=== PATIENT | male | born 1970 | race Hispanic/Latino ===

== ENCOUNTER 2017-01-29 11:05 | Inpatient (IN) | payer MEDICAID ==
[2017-01-29 11:35] VITALS: BMI 29.2
[2017-01-29] MEDS ORDERED: Sodium Chloride 0.9% 1,000 ML IV STA ×2 (11:44→19:32)
--- NOTE | 2017-01-29 11:50 | ED PDOC ---
Arrival/HPI - General Chief Complaint: GI Problem Time Seen by Provider: 01/29/17 11:31 Historian: Patient - History of Present Illness Narrative History of Present Illness (Text): 01/29/17 11:47 46 y.o. male whose PMHx includes etoh abuse who comes to the ED with complaint of abdominal pain associated with n/v and bloody stools. He denies any fever or urinary symptoms. He states his last etoh was use a few hours prior to coming to the ED. He also endorses a cough with occasional sob. He is also complaining that he is thinking about hurting himself with a plan to jump in front of the light rail. Past Medical History - Infectious Disease Hx of Infectious Diseases: None - Tetanus Immunization Tetanus Immunization: Up to Date - Reproductive Currently : No - Past Medical History Past Medical History: No Previous - Cardiac Hx Cardiac Disorders: Yes Hx Hypertension: Yes - Pulmonary Hx Respiratory Disorders: No - Neurological Hx Neurological Disorder: No - HEENT Hx HEENT Disorder: No - Renal Hx Renal Disorder: No - Endocrine/Metabolic Hx Endocrine Disorders: No - Hematological/Oncological Hx Blood Disorders: No - Integumentary Hx Dermatological Disorder: No - Musculoskeletal/Rheumatological Hx Musculoskeletal Disorders: No - Gastrointestinal Hx Gastrointestinal Disorders: No - Genitourinary/Gynecological Hx Genitourinary Disorders: No - Psychiatric Hx Psychophysiologic Disorder: Yes Hx Depression: Yes Hx Substance Use: No Other/Comment: ETOH - Past Surgical History Past Surgical History: No Previous - Anesthesia Hx Anesthesia: Yes Hx Anesthesia Reactions: No Hx Malignant Hyperthermia: No - Suicidal Assessment Feels Threatened In Home Enviroment: No Family/Social History Family/Social History: No Known Family HX Smoking Status: Current Some Days Smoker Hx Alcohol Use: Yes (ETOH) Hx Substance Use: No Hx Substance Use Treatment: No Allergies/Home Meds Allergies/Adverse Reactions: Allergies No Known Allergies Allergy (Verified 01/29/17 11:26) Review of Systems - Review of Systems Constitutional: Fatigue Eyes: Normal ENT: Normal Respiratory: SOB, Cough Cardiovascular: absent: Chest Pain Gastrointestinal: Abdominal Pain, Nausea, Hematochezia Genitourinary Male: absent: Dysuria Skin: Normal Neurological: Normal Psychiatric: Depression, Suicidal Ideation Physical Exam Vital Signs Temp Pulse Resp BP Pulse Ox 01/29/17 19:28 94 H 16 94 L 01/29/17 17:24 98.5 F 109 H 18 135/69 95 01/29/17 17:00 83 18 106/68 100 01/29/17 15:00 102 H 18 104/72 100 01/29/17 13:47 100 H 19 102/79 100 01/29/17 12:11 64 18 142/79 98 01/29/17 11:24 98.2 F 82 18 144/88 100 01/29/17 11:16 97.4 F L 91 H 18 163/113 H 100 Temperature: Afebrile Blood Pressure: Normal Pulse: Regular Respiratory Rate: Normal Appearance: Positive for: Non-Toxic, Other (disheveled with AOB) Pain Distress: Mild Mental Status: Positive for: Alert and Oriented X 3 - Systems Exam Head: Present: Atraumatic, Normocephalic Pupils: Present: PERRL Conjunctiva: Present: Normal Mouth: Present: Moist Mucous Membranes Pharnyx: Present: Normal. No: ERYTHEMA, EXUDATE Neck: Present: Normal Range of Motion Respiratory/Chest: Present: Clear to Auscultation, Good Air Exchange. No: Respiratory Distress, Accessory Muscle Use Cardiovascular: Present: Regular Rate and Rhythm, Normal S1, S2. No: Murmurs Abdomen: Present: Tenderness (diffuse abdominal tenderness), Normal Bowel Sounds. No: Distention, Peritoneal Signs Rectal: Present: Other (yellow-brownish stools, guaiac positive). No: Gross Blood Back: Present: Normal Inspection Upper Extremity: Present: Normal Inspection. No: Cyanosis, Edema Lower Extremity: Present: Normal Inspection. No: Edema Neurological: Present: GCS=15, CN II-XII Intact, Speech Normal Skin: Present: Warm, Dry. No: Rashes Psychiatric: Present: Oriented x 3 Medical Decision Making ED Course and Treatment: 01/29/17 19:42 46 y.o. alcoholic male presenting with abdominal pain and blood stools with n/ v. Initial exam with abdominal tenderness and brown but guaiac positive stools. Labs showed an alcohol level of 417 but also a lactic acid level of 3.0. He was given a liter of NS and a liter of a banana bag. Patient tolerated po - given his SI complaint, discussed with PES, who said the patient will not be seen, per protocol till etoh level goes down to approximately 150, about 9:15 pm per calculation. In the meantime, the patient began to develop tremors, consistent with alcohol withdrawal along with mild tachycardia to 110 bpm. His repeat lactic acid is 3.2 - will need to be observed further on observed further on med/surg. Discussed with Dr. Thurman. - Lab Interpretations Lab Results: 01/29/17 12:15 01/29/17 12:15 Lab Results 01/29/17 17:59: Lactic Acid 3.2 H 01/29/17 12:15: WBC 7.4, RBC 3.75, Hgb 13.2 L, Hct 38.4 L, MCV 102.4, MCH 35.2 H , MCHC 34.4, RDW 13.4, Plt Count 219, MPV 9.2, Gran % 71.9 H, Lymph % (Auto) 18.7 L, [place] % (Auto) 8.8 H, Eos % (Auto) 0.1 L, Baso % (Auto) 0.5, Gran # 5.30 , Lymph # 1.4, [place] # 0.7 H, Eos # 0.0, Baso # 0.04, PT 13.0 H, INR 1.20 H, APTT 29.2, Sodium 135, Potassium 4.2, Chloride 95 L, Carbon Dioxide 27, Anion Gap 17, BUN 10, Creatinine 0.5, Est GFR ( Amer) > 60, Est GFR (Non-Af Amer) > 60, Random Glucose 90, Lactic Acid 3.0 H, Calcium 9.0, Total Bilirubin 0.8, AST 256 H, ALT 76 H, Alkaline Phosphatase 267 H, Lactate Dehydrogenase 673 , Total Creatine Kinase 103, Troponin I < 0.01, Total Protein 9.0 H, Albumin 4.1 , Globulin 4.9, Albumin/Globulin Ratio 0.8 L, Amylase 80, Lipase 257, Urine Color Yellow, Urine Appearance Clear, Urine pH 6.5, Ur Specific [place] 1.010, Urine Protein Negative, Urine Glucose (UA) Negative, Urine Ketones Negative, Urine Blood Negative, Urine Nitrate Negative, Urine Bilirubin Negative, Urine Urobilinogen 0.2, Ur Leukocyte Esterase Negative, Urine Opiates Screen Negative , Urine Methadone Screen Negative, Ur Barbiturates Screen Negative, Ur Phencyclidine Scrn Negative, Ur Amphetamines Screen Negative, U Benzodiazepines Scrn Negative, U Oth Cocaine Metabols Negative, U Cannabinoids Screen Negative, Alcohol, Quantitative 417 H* 01/29/17 12:10: POC Glucose (mg/dL) 87 - RAD Interpretation Narrative RAD Interpretations (Text): 01/29/17 12:15 CXR: nad Radiology Orders: 01/29/17 11:43 CHEST PORTABLE [RAD] Stat 01/29/17 11:46 ABD PELVIS PO & IV CONTRAST [CT] Stat - EKG Interpretation EKG Interpretation (Text): 01/29/17 12:15 NSR @ 76; no ST/T changes; normal axis; normal intervals. Interpreted by ED Physician: Yes Type: 12 lead EKG - Medication Orders Current Medication Orders: Sodium Chloride (Sodium Chloride 0.9%) 1,000 mls @ 999 mls/hr IV .Q1H1M STA Stop: 01/29/17 20:32 Discontinued Medications Famotidine (Pepcid) 20 mg IVP STAT STA Stop: 01/29/17 11:45 Last Admin: 01/29/17 12:19 Dose: 20 MG IVP Administration Document 01/29/17 12:19 SE (Rec: 01/29/17 12:19 SE [id number]) Charges for Administration # of IVP Administrations 1 Sodium Chloride (Sodium Chloride 0.9%) 1,000 mls @ 999 mls/hr IV .Q1H1M STA Stop: 01/29/17 12:44 Last Admin: 01/29/17 12:19 Dose: 999 MLS/HR eMAR Start Stop Document 01/29/17 12:19 SE (Rec: 01/29/17 12:19 SE [id number]) Intravenous Solution Start Date 01/29/17 Start Time 12:19 Folic Acid 1 mg/ Thiamine HCl 100 mg/ Multivitamins/Vitamin C 10 ml/ Dextrose/ Sodium Chloride 1,011.2 mls @ 500 mls/hr IV ONCE ONE Stop: 01/29/17 14:38 Last Admin: 01/29/17 13:47 Dose: 500 MLS/HR eMAR Start Stop Document 01/29/17 13:47 SE (Rec: 01/29/17 13:47 SE [id number]) Intravenous Solution Start Date 01/29/17 Start Time 13:47 Iohexol (Omnipaque 240 (50 Ml)) Confirm Administered Dose 50 ml .ROUTE .STK-MED ONE Stop: 01/29/17 11:59 Iohexol (Omnipaque 350 100 Ml) Confirm Administered Dose 350 mg .ROUTE .STK-MED ONE Stop: 01/29/17 12:45 Lorazepam (Ativan) 1 mg PO ONCE STA PRN Reason: Protocol Stop: 01/29/17 17:34 Last Admin: 01/29/17 17:47 Dose: 1 MG Behavioural Document 01/29/17 17:47 [email or web address] (Rec: 01/29/17 17:47 [email or web address] [facility] [id number]) Maintenance Maintenance Dose Yes Nonmedicinal Nonmedicinal Interventions Redirect Behavior Behavior for Medication: Anxiety Ondansetron HCl (Zofran Inj) 4 mg IVP STAT STA Stop: 01/29/17 11:45 Last Admin: 01/29/17 12:19 Dose: 4 MG IVP Administration Document 01/29/17 12:19 SE (Rec: 01/29/17 12:19 SE [id number]) Charges for Administration # of IVP Administrations 1 Disposition/Present on Arrival - Present on Arrival Any Indicators Present on Arrival: No History of DVT/PE: No History of Uncontrolled Diabetes: No Urinary Catheter: No History of Decub. Ulcer: No History Surgical Site Infection Following: None - Disposition Have Diagnosis and Disposition been Completed?: Yes Diagnosis: Lactic acidosis, Occult blood in stools, Abdominal pain, Alcohol abuse Disposition: HOSPITALIZED Disposition Time: 19:40 Patient Plan: Observation Patient Problems: Current Active Problems Problem Status Diagnosed Alcohol intoxication Resolved Alcohol withdrawal Resolved Hypomagnesemia Resolved Condition: FAIR
[2017-01-29] MEDS ORDERED: Iohexol 240 (50 ml) ONE (11:58)
[2017-01-29 12:18] LABS: ADD MANUAL DIFF? NO
[2017-01-29 12:19] LABS: BASO # 0.04 K/mm3 (0.0-2.0); BASO % 0.5 % (0.0-3.0); EOS % 0.1 % (1.5-5.0); GRAN % 71.9 % (50.0-68.0); HEMATOCRIT 38.4 % (42.0-52.0); LYMPH # 1.4 (1.2-3.4); LYMPH % 18.7 % (22.0-35.0); MEAN CELL VOLUME 102.4 fL (80.0-105.0); MEAN CORPUSCULAR HEMOGLOBIN 35.2 pg (25.0-35.0); MEAN CORPUSCULAR HGB CONC 34.4 g/dl (31.0-37.0); MEAN PLATELET VOLUME 9.2 fl (7.0-11.0); MONO # 0.7 (0.1-0.6); MONO % 8.8 % (1.0-6.0); PLATELET COUNT 219 10^3/uL (120.0-450.0); RED CELL DISTRIBUTION WIDTH 13.4 % (11.5-14.5); WHITE BLOOD COUNT 7.4 10^3/ul (4.5-11.0)
[2017-01-29 12:22] LABS: PH,URINE 6.5 (4.7-8.0); URINE BILIRUBIN NEGATIVE (NEGATIVE); URINE BLOOD NEGATIVE (NEGATIVE); URINE GLUCOSE (UA) NEGATIVE (NEGATIVE); URINE KETONE NEGATIVE (NEGATIVE); URINE LEUKOCYTE ESTERASE NEGATIVE Leu/uL (NEGATIVE); URINE PROTEIN NEGATIVE mg/dL (<30 mg/dL); URINE UROBILINOGEN 0.2 E.U./dL (<1 E.U./dL)
[2017-01-29 12:23] LABS: URINE APPEARANCE CLEAR (CLEAR); URINE COLOR YELLOW (YELLOW)
[2017-01-29 12:31] LABS: INR 1.2 (0.93-1.08); PARTIAL THROMBOPLASTIN TIME 29.2 Seconds (23.7-30.8)
[2017-01-29 12:33] LABS: ALB/GLOB RATIO 0.8 (1.1-1.8); ALKALINE PHOSPHATASE 267 U/L (38-133); ALT/SGPT 76 U/L (7-56); AMYLASE 80 U/L (35-125); AST/SGOT 256 U/L (15-59); BILIRUBIN,TOTAL 0.8 mg/dL (0.2-1.3); BLOOD UREA NITROGEN 10 mg/dL (7-21); CARBON DIOXIDE 27 mmol/L (21-33); CHLORIDE 95 mmol/L (98-107); GFR AFRICAN-AMERICAN > 60; GLUCOSE,RANDOM 90 mg/dL (70-110); LIPASE 257 U/L (23-300); POTASSIUM 4.2 mmol/L (3.6-5.0); SODIUM 135 mmol/L (132-148)
[2017-01-29] MEDS ORDERED: Folic Acid 1 MG, Thiamine 100 MG, Multivitamin (MVI) 10 ML in Dextrose 5%/0.45% NS 1,00... IV ONE (12:37)
--- NOTE | 2017-01-29 12:37 | RAD ---
PROCEDURE: Chest, single view portable HISTORY: sob, cough, suicidal COMPARISON: 01/16/2017. TECHNIQUE: Technique: Single view portable semi erect @ 11:52. FINDINGS: No active pulmonary disease. No pulmonary nodules, masses or infiltrates. No evidence of acute, significant cardiovascular disease. No significant pleural, osseous or subdiaphragmatic abnormalities. IMPRESSION: No active disease. No acute/significant interval changes.
[2017-01-29 12:44] LABS: TROPONIN I < 0.01 ng/mL
[2017-01-29] MEDS ORDERED: Iohexol 350 MG/100 ML VIAL ONE (12:44)
--- NOTE | 2017-01-29 14:00 | CT ---
PROCEDURE: CT Abdomen and Pelvis with contrast HISTORY: abdominal pain, bloody stools COMPARISON: 12/26/2016 TECHNIQUE: Contrast dose: 100 cc of Omni 350 Radiation dose: Total exam DLP = 377 mGy-cm. FINDINGS: LOWER THORAX: Unremarkable. LIVER: Unremarkable. No gross lesion or ductal dilatation. GALLBLADDER AND BILE DUCTS: The gallbladder is mildly distended. The common duct is mildly dilated measuring 9 mm. This is unchanged PANCREAS: Unremarkable. No gross lesion or ductal dilatation. SPLEEN: Unremarkable. ADRENALS: Unremarkable. No mass. KIDNEYS AND URETERS: Unremarkable. No hydronephrosis. No solid mass. VASCULATURE: Unremarkable. No aortic aneurysm. BOWEL: Unremarkable. No obstruction. No gross mural thickening. APPENDIX: Normal appendix. PERITONEUM: Unremarkable. No free fluid. No free air. LYMPH NODES: Unremarkable. No enlarged lymph nodes. BLADDER: Unremarkable. REPRODUCTIVE: Unremarkable. BONES: No acute fracture. OTHER FINDINGS: None. IMPRESSION: Unremarkable contrast enhanced CT of the abdomen and pelvis.
[2017-01-29] MEDS ORDERED: DEXTROSE IV SCH (22:15)
[2017-01-29] MEDS ORDERED: D5 IV SCH (22:15)
[2017-01-29] MEDS ORDERED: [UNRECOGNIZED DRUG - OTHER] IV SCH (22:15)
[2017-01-29] MEDS ORDERED: POTASSIUM CHL IV SCH (22:15)
--- NOTE | 2017-01-29 22:28 | CP.PCM.HP ---
<Joshua Otto - Last Filed: 01/30/17 00:28> History of Present Illness - History of Present Illness History of Present Illness: CC: Abdominal pain and suicidal ideation This is a 46 yo M with PMHx of Alcohol abuse and suicidal ideation who presents with complaints of sharp abdominal pain of several days duration, multiple episodes of emesis, and suicidal ideation without a plan. Patient also complains of "shitting blood," describing episodes of hematochezia and melena, which he describes as frequent. He is very well known to our ER department, last seen at [facility] 1 day ago for abdominal pain, at which time he was found to be malingering and was discharged from the ED. Patient is a poor historian, answering yes to all ROS questions, but unable to give clear context to the symptoms, unable to describe onset/severity/frequency of many symptoms he affirms or go into further details regarding them. Patient admits to drinking today, 8-9 drinks daily, and admits to smoking as well, 1/2 pack per day. Alcohol level was 417 in the ED. Patient reports suicidal ideation, as he feels that there is nothing better for him, but denies attempts or having a plan currently. He reports tolerating PO intake without difficulty, but reports intermittent emesis no concurrent/associated with PO intake. Denies chest pain, shortness of breath currently, vision changes, dysuria, hallucinations. Admits to nausea/emesis, fatigue, lightheadednss/dizziness with sensation of room spinning, hematochezia, melena, diarrhea, hematuria. PMHx: ETOH Abuse, suicidal ideation PSHx: denies Family Hx: Denies Social Hx: Homeless; current 1/2 pack per day smoker, Current 8-9 24oz cans of beer/day (denies hard liquor). Denies current illicits/IVDA but admits remote illicits (won't specify what used in past, claims >15 years ago) PMD: None Present on Admission - Present on Admission Any Indicators Present on Admission: No History of DVT/PE: No History of Uncontrolled Diabetes: No Review of Systems - Review of Systems Systems not reviewed;Unavailable: Other (patient is poor historian, answers yes to all ROS questions but frequently unable to go into further details about most symptoms, poor insight/understanding of symptoms and condition) - Constitutional Constitutional: Chills (chronic), Weakness. absent: Fever - EENT Eyes: absent: Blurred Vision, Change in Vision, Spots in Vision, Loss of Vision Ears: Dizziness (intermittent) Nose/Mouth/Throat: absent: Dysphagia, Neck Pain - Cardiovascular Cardiovascular: absent: Chest Pain, Dyspnea, Syncope - Respiratory Respiratory: Cough. absent: Dyspnea - Gastrointestinal Gastrointestinal: Abdominal Pain (diffuse, primarily epigastric and midline- right upper abdomen), Diarrhea, Hematemesis (reports intermittent hematemesis, but unable to provide further details), Hematochezia, Melena, Nausea, Vomiting. absent: Constipation, Dysphagia - Genitourinary Genitourinary: Hematuria. absent: Difficulty Urinating, Dysuria, Flank Pain - Musculoskeletal Musculoskeletal: absent: Neck Pain, Numbness - Integumentary Integumentary: absent: Pruritus, Rash - Neurological Neurological: Dizziness, Vertigo (intermittent sensation of room spinning). absent: Numbness, Loss of Vision, Syncope, Other Visual Disturbances - Psychiatric Psychiatric: Depression, Suicidal Ideation (denies current plan or attempts). absent: Anxiety, Auditory Hallucinations, Visual Hallucinations - Endocrine Endocrine: Fatigue Past Patient History - Infectious Disease Hx of Infectious Diseases: None - Tetanus Immunizations Tetanus Immunization: Up to Date - Past Medical History & Family History Past Medical History?: Yes - Past Social History Smoking Status: Current Some Days Smoker - CARDIAC Hx Cardiac Disorders: Yes Hx Hypertension: Yes - PULMONARY Hx Respiratory Disorders: No - NEUROLOGICAL Hx Neurological Disorder: No - HEENT Hx HEENT Problems: No - RENAL Hx Chronic Kidney Disease: No - ENDOCRINE/METABOLIC Hx Endocrine Disorders: No - HEMATOLOGICAL/ONCOLOGICAL Hx Blood Disorders: No - INTEGUMENTARY Hx Dermatological Problems: No - MUSCULOSKELETAL/RHEUMATOLOGICAL Hx Musculoskeletal Disorders: No Hx Back Pain: Yes Hx Falls: Yes - GASTROINTESTINAL Hx Gastrointestinal Disorders: No - GENITOURINARY/GYNECOLOGICAL Hx Genitourinary Disorders: No - PSYCHIATRIC Hx Psychophysiologic Disorder: Yes Hx Depression: Yes Other/Comment: ETOH - SURGICAL HISTORY Hx Surgeries: Yes - ANESTHESIA Hx Anesthesia: Yes Hx Anesthesia Reactions: No Hx Malignant Hyperthermia: No Meds Allergies/Adverse Reactions: Allergies Allergy/AdvReac Type Severity Reaction Status Date / Time No Known Allergies Allergy Verified 01/29/17 11:26 Physical Exam - Constitutional Appears: Non-toxic, No Acute Distress, Unkempt, Chronically Ill, Other (Poor hygeine) - Head Exam Head Exam: ATRAUMATIC, NORMAL INSPECTION, NORMOCEPHALIC - Eye Exam Eye Exam: EOMI, Normal appearance, PERRL. absent: Conjunctival injection, Scleral icterus Pupil Exam: NORMAL ACCOMODATION, PERRL. absent: Fixed, Irregular, Unequal Additional comments: dirty sclera - ENT Exam ENT Exam: Mucous Membranes Moist - Neck Exam Neck exam: Negative for: Thyromegaly - Respiratory Exam Respiratory Exam: Clear to Auscultation Bilateral, NORMAL BREATHING PATTERN. absent: Accessory Muscle Use, Chest Wall Tenderness, Decreased Breath Sounds, Rales, Rhonchi, Wheezes - Cardiovascular Exam Cardiovascular Exam: Tachycardia, REGULAR RHYTHM, +S1, +S2. absent: Bradycardia , RRR, +S4 Additional comments: rapid rate regular rhythm - GI/Abdominal Exam GI & Abdominal Exam: Firm, Normal Bowel Sounds, Organomegaly (hepatomegaly), Soft, Tenderness (primarily at epigastric and upper midline extending into RUQ regions, but mild tenderness diffusely). absent: Diminished Bowel Sounds, Hyperactive Bowel Sounds, Hypoactive Bowel Sounds, Pulsatile Mass, Rigid Additional comments: no external dilated veins or skin changes on abdomen - Rectal Exam Rectal Exam: absent: Black Stool, Bloody Stool, Hemorrhoids Additional comments: brown stool, few skin tags externally, no visualized external hemorrhoids, no palpable masses - Extremities Exam Extremities exam: Positive for: normal inspection, pedal pulses present. Negative for: calf tenderness, joint swelling, pedal edema, tenderness Additional comments: no intention tremor or ataxia with movements - Back Exam Back exam: absent: CVA tenderness (L), CVA tenderness (R) - Neurological Exam Neurological exam: Alert, Oriented x3 (oriented to self, year, location) Additional comments: no tremulousness at baseline or with movements, no notable ataxia - Psychiatric Exam Psychiatric exam: Flat Affect, Suicidal Ideation (admits to ideation, denies plan or attempts; feels he has no reason to continue living, that things will never get better) - Skin Skin Exam: Dry, Intact, Normal Color, Warm Results - Vital Signs Recent Vital Signs: Last Vital Signs Temp 98.6 F 01/29/17 20:09 Pulse 95 H 01/29/17 20:09 Resp 18 01/29/17 20:32 BP 125/88 01/29/17 20:09 Pulse Ox 98 01/29/17 20:09 - Labs Result Diagrams: 01/29/17 12:15 01/29/17 12:15 Assessment & Plan - Assessment and Plan (Free Text) Assessment: This is a 46 yo M with PMHx of Alcohol abuse and suicidal ideation who presents with complaints of sharp abdominal pain of several days duration, multiple episodes of emesis, and suicidal ideation without a plan. He is being treated for intoxication and pending EtOH withdrawal, possible GI bleed, and suicidal ideation. Plan: 1) EtOH intoxication/withdrawal -EtOH level on admission 417 -Currently not tremulous, answering questions appropriately, AAOx3 -Ativan 1mg IV q6 johnnie and q2 prn -CIWA protocol in place -Thiamine 100mg IV, Folic acid, multivitamin -D5 with 1/2 NS + 20 mEq KCl at 70cc/hr -Clear liquid diet started, D5 1/2 NS with 20 mEq KCl at 70cc/hr -Patient counseled on alcohol cessation programs, refuses 2) Suicidal ideation -chronic problem for patient, seen by Psych on numerous prior occasions -Denies active plan or attempts, does not want to commit suicide at this time so does not need 1:1 at this time -Psych consulted, appreciate their recs 3) Abd pain with reported hematochezia/melena -Upper GI bleed vs lower GI bleed vs bleeding GI mass vs malingering -Patient reports "shitting blood" and describes black stools and bright red blood, but otherwise unable to describe for how long occurring or number of episodes -Brown stool on exam and as reported by ED, but guaic positive in ED -Rectal exam negative for hemorrhoids, no palpated mass or visible bleeding -Clear liquid diet, advance as tolerated -GI consulted, appreciate any recs -GI ppx with Protonix -Elevated lactate, but no pain out of proportion and hemodynamically stable, less likely intestinal/mesenteric ischemia -Currently hemodynamically stable, will observe BP closely and begin aggressive fluid resuscitation if persistently or abruptly hypotensive Dispo: Admitted to Med/Surg as obs, CIWA protocol, pending GI and Psych input FEN: Clear liquids, D5 1/2 NS with 20 mEq KCl at 70cc/hr Access: Peripheral IV Consults: GI, Psych Ppx: Protonix for GI, SCDs for DVT Patient seen, reviewed, discussed, and course of care agreed upon with attending Dr. Thurman. - Date & Time Date: 01/30/17 Time: 00:17 Decision To Admit - Pt Status Changed To: Hospital Disposition Of: Observation - . Bed Request Type: Med/Surg <Bryce Thurman P - Last Filed: 02/01/17 08:40> Results - Vital Signs Recent Vital Signs: Last Vital Signs Temp 98.5 F 01/31/17 06:00 Pulse 77 01/31/17 06:00 Resp 19 01/31/17 06:00 BP 144/91 H 01/31/17 06:00 Pulse Ox 97 01/31/17 06:00 - Labs Result Diagrams: 01/31/17 07:00 01/31/17 07:00 Labs: Laboratory Results - last 24 hr 01/31/17 08:00 Hepatitis C Antibody Negative Attending/Attestation - Attestation I have personally seen and examined this patient.: Yes I have fully participated in the care of the patient.: Yes I have reviewed all pertinent clinical information: Yes
[2017-01-29] MEDS: Potassium Chloride 20 MEQ in Dextrose 5%/0.45% NS 1,000 ML IV SCH (22:47)
--- NOTE | 2017-01-30 07:24 | CARD ---
APPROVED REPORT EKG Measurement Heart [id number] <Conclusion> Normal sinus rhythm Baseline artifact Cannot rule out Anterior infarct, age undetermined Abnormal ECG
[2017-01-30 08:18] VITALS: TEMP 98.5
[2017-01-30] MEDS: Pantoprazole 40 mg EC Tab PO SCH (08:22)
[2017-01-30] MEDS ORDERED: Multivitamin Therapeutic Tab PO SCH (10:00)
[2017-01-30] MEDS ORDERED: Thiamine 100 mg/ml Inj IV SCH (10:00)
[2017-01-30 10:10] LABS: HEMATOCRIT 32.4 % (42.0-52.0); MEAN CELL VOLUME 103.8 fL (80.0-105.0); MEAN CORPUSCULAR HEMOGLOBIN 35.3 pg (25.0-35.0); MEAN PLATELET VOLUME 9.2 fl (7.0-11.0); RED CELL DISTRIBUTION WIDTH 13.6 % (11.5-14.5); WHITE BLOOD COUNT 4.8 10^3/ul (4.5-11.0)
[2017-01-30 10:20] LABS: ALB/GLOB RATIO 0.8 (1.1-1.8); ALKALINE PHOSPHATASE 246 U/L (38-133); ALT/SGPT 112 U/L (7-56); AST/SGOT 523 U/L (15-59); BILIRUBIN,TOTAL 0.8 mg/dL (0.2-1.3); BLOOD UREA NITROGEN 6 mg/dL (7-21); CALCIUM 8.6 mg/dL (8.4-10.5); CARBON DIOXIDE 26 mmol/L (21-33); CHLORIDE 97 mmol/L (95-110); GFR AFRICAN-AMERICAN > 60; GLUCOSE,RANDOM 122 mg/dL (70-110); MAGNESIUM 1.4 mg/dL (1.7-2.2); POTASSIUM 4.1 mmol/L (3.6-5.0); SODIUM 132 mmol/L (132-148); TOTAL PROTEIN 7.7 g/dL (5.8-8.3)
[2017-01-30] MEDS ORDERED: Magnesium Sulfate 2 GM in Sodium Chloride 0.9% 100 ML IVPB ONE (13:09)
[2017-01-30] MEDS: Potassium Chloride 20 MEQ in Dextrose 5%/0.45% NS 1,000 ML IV SCH (13:15)
[2017-01-30] MEDS ORDERED: Multivitamin (MVI) 10 ML, Thiamine 100 MG, Folic Acid 1 MG in Sodium Chloride 0.9% 1,00... IV ONE (13:56)
--- NOTE | 2017-01-31 02:24 | CON ---
DATE: 01/30/2017 This patient was seen and evaluated earlier. We discussed with the nursing staff. This is a 46-year -old patient with a long history of alcohol use, history of suicidal ideation in the past, presented with drinking heavily. He also gives a history of bleeding per rectum and occasionally black stool. In the ER he was mainly complaining of abdominal pain. The patient's alcohol level was found to be 417. GI consult was requested to evaluate this. PAST MEDICAL HISTORY: I described and it is positive as above. SOCIAL HISTORY: Positive for homeless and half a pack per day smoking and alcohol 8-9 cans of beer p er day. Last drink was before he came to hospital. REVIEW OF SYSTEMS: Positive as above, complains of epigastric discomfort and history of bleeding per rectum, and history of occasional dark stool on exam on the other past medical history. Review of s ystems positive as well. Other systems reviewed. PHYSICAL EXAMINATION: GENERAL: The patient is lying in bed, not in acute distress. VITAL SIGNS: Temperature 98.5, pulse 96, blood pressure 145/89, respirations 20, O2 saturation 96. HEENT: Atraumatic, anicteric. NECK: Supple. HEART: S1, S2 heard. LUNGS: Bilateral air entry present. ABDOMEN: Soft. There is tenderness present in the epigastric area. The liver was palpable at least a fingerbreadth below the costal margin, hepatomegaly. EXTREMITIES: No edema. No cyanosis. NEUROLOGIC: Alert, oriented, positive for suicidal ideation. LABORATORY DATA: Hemoglobin initially it was 13.2 and now it is 11.0, platelets 127, it was 219 and WBC was 7.4-4.9. LFTs shows AST 523 and ALT is 112, alkaline phosphatase 246. Total bilirubin is 0. 8. The patient did have a CT of the abdomen and pelvis done. The CT was unremarkable. IMPRESSION: This 46-year-old patient with a history of blood per rectum, some epigastric discomfort and history of active ETOH. Would recommend: 1. Followup of the hemoglobin and hematocrit. 2. Empiric treatment with a PPI. 3. Ultrasound scan of the abdomen. 4. Hepatitis profile and patient's discriminant factor is only 6.33. I would not contemplate any st eroids at this present time. Reviewed previous serology report, hep C was negative. We will reorder the hep C antibody also. Thank you very much for allowing us to participate in the care of the patient. We will continue to c losely follow up his care and suggest further management based on the clinical course. Lila Hickey MD cc: [id number] TT: 01/31/2017 02:23:43 Confirmation # [id number] Dictation # [id number]
[2017-01-31 07:13] VITALS: BP 144/91; PULSE 77; RESP 19; O2SAT 97
[2017-01-31 07:17] LABS: HEMATOCRIT 33.1 % (42.0-52.0); MEAN CELL VOLUME 102.2 fL (80.0-105.0); MEAN CORPUSCULAR HEMOGLOBIN 35.2 pg (25.0-35.0); MEAN CORPUSCULAR HGB CONC 34.4 g/dl (31.0-37.0); MEAN PLATELET VOLUME 10.1 fl (7.0-11.0); RED CELL DISTRIBUTION WIDTH 13.1 % (11.5-14.5)
[2017-01-31 07:22] LABS: ALB/GLOB RATIO 0.8 (1.1-1.8); ALKALINE PHOSPHATASE 275 U/L (38-133); ALT/SGPT 103 U/L (7-56); AST/SGOT 328 U/L (15-59); BILIRUBIN,TOTAL 1.4 mg/dL (0.2-1.3); BLOOD UREA NITROGEN 2 mg/dL (7-21); CARBON DIOXIDE 29 mmol/L (21-33); CHLORIDE 97 mmol/L (95-110); GFR AFRICAN-AMERICAN > 60; GLUCOSE,RANDOM 94 mg/dL (70-110); MAGNESIUM 1.6 mg/dL (1.7-2.2); POTASSIUM 3.5 mmol/L (3.6-5.0); SODIUM 133 mmol/L (132-148); TOTAL PROTEIN 8.4 g/dL (5.8-8.3)
[2017-01-31] MEDS ORDERED: Magnesium Sulfate 2 GM in Sodium Chloride 0.9% 100 ML IVPB ONE (07:43)
[2017-01-31] MEDS: Potassium Chloride 20 mEq 100 ML IVPB SCH ×2 (08:10→10:48)
[2017-01-31] MEDS: Pantoprazole 40 mg EC Tab PO SCH (08:10)
[2017-01-31] MEDS ORDERED: Multivitamin Therapeutic Tab PO SCH (10:00)
--- NOTE | 2017-01-31 10:40 | US ---
HISTORY: Abd pain COMPARISON: 01/11/2017 TECHNIQUE: Sonographic evaluation of the abdomen. FINDINGS: LIVER: Measures 18.5 cm. Diffusely increased echogenicity of the liver parenchyma. Consistent with fatty infiltration. Smooth contour. Incidental 6 x 9 x 9 mm echogenic mass noted in right hepatic lobe. This is not seen on prior ultrasound examination nor on CT examination of 01/29/2017. No biliary dilatation. GALLBLADDER: Minimal mural thickening, up to 3 mm. Questionable trace pericholecystic fluid. COMMON BILE DUCT: Measures up to 9 mm without associated intrahepatic biliary ductal dilatation. The distal intrapancreatic common duct measures 6 mm in diameter. Mm. No evidence of choledocholithiasis. PANCREAS: Unremarkable as visualized. No mass. No ductal dilatation. RIGHT KIDNEY: Measures 9.5cm. Normal echogenicity. No calculus, mass, or hydronephrosis. LEFT KIDNEY: Measures 10.0cm. Normal echogenicity. No calculus, mass, or hydronephrosis. SPLEEN: Normal in size and contour. No mass. AORTA: No aneurysmal dilatation. IVC: Unremarkable. OTHER FINDINGS: None. IMPRESSION: Or hepatomegaly with fatty infiltration of the liver. 9 mm echogenic lesion in right hepatic lobe not noted on prior examination. Nonspecific. No evidence of cholelithiasis. Trace pericholecystic fluid and minimal mural thickening. Negative sonographic Cuellar's sign. Nonspecific findings. Mild dilatation of common bile duct without associated intrahepatic biliary dilatation. Uncertain significance. Please correlate with clinical and laboratory evaluation.
--- NOTE | 2017-01-31 11:38 | CON ---
DATE: 01/31/2017 Shortly, patient is a 46-year-old male, history of alcohol use disorder, chronic. The isis ent is in the Emergency Room every other day for alcohol intoxication and complications due to that p anna. The patient had 1 psychiatric admission which took place in [facility] on 01/14. Afterward, patient refused to have followup appointment with psychiatry, refused to go to AA meeting s and declined option to go to inpatient rehab. The patient came back to the Emergency Room complain ing of abdominal pain and possible gastrointestinal bleed. Psych consult was called for evaluation o f mood symptoms as well as patient has history of being admitted to the psychiatric inpatient unit. At the same time, alcohol abuse and dependence. The patient is very familiar with this typewriter assembler from t he previous admission. The patient was found to be alert and oriented. The patient said that he cam e here because he had abdominal pain. The patient said that he is constantly depressed, but denied w orsening of his depressive symptoms. The patient reported after discharge from the psychiatric inpat ient unit, he was noncompliant with the followup appointment. He did not want to go to AA meetings a nd he continued drinking. The patient denied any thoughts of harming himself or others, denied inten t or plan. The patient denied feeling anxious, reported to have fair sleep. VITAL SIGNS: Reviewed. Temperature 98.5, pulse is 77, blood pressure 144/91, respirations 19, oxyge n saturation is 97%. MEDICATIONS: Reviewed. Folic acid, Ativan 1 mg IV push q. 2 hours as needed, Ativan 1 mg IV push q. 6 hours scheduled, multivitamins, Protonix, potassium, and vitamin B1. LABORATORIES: Reviewed. Hemoglobin and hematocrit 11.4 and 33.1, WBC cells 4.0. Coagulation review ed. Chemistry reviewed. AST and ALT is elevated, but trending down. Potassium is 3.5. Urinalysis within normal limits. Toxicology: Alcohol level was 417. Reports reviewed. The patient was seen by GI team and ultrasound of the abdomen was done today, fatt y infiltration of the liver, 9 mm of echogenic lesion in the right hepatic lobe, nonspecific, no evid ence of cholelithiasis. MENTAL STATUS EXAMINATION: The patient presented to be alert. This typewriter assembler is familiar with this pat ient from the previous admission. The patient presented to be at his baseline. Intermittent eye con tact. Speech was normal rate, tone, quality, and quantity. Mood described as "I feel chronically de pressed". Affect was constricted, but reactive, mood congruent. Thought process is coherent and goa l directed. Thought content: The patient denied visual, auditory, or tactile hallucinations. Denie d paranoid ideations. The patient denied thoughts of harming himself or others, denied intent or wander n. Insight and judgment in regards of alcohol use disorder is limited. Impulses are well controlled . IMPRESSION: Alcohol use disorder, rule out mood disorder due to chronic alcohol abuse. The patient has alcohol withdrawal symptoms, which are under control. The patient was admitted for gastrointesti nal bleed and abdominal pain. The patient was seen by GI team and ultrasound of the abdomen was done . The patient also has liver enzymes elevated. PLAN: Continue current management. Continue current medications. Monitor vital signs. The patient does not meet the criteria to go to the psychiatric inpatient unit. The patient needs to go to AA m eetings and NA meetings. If he wants to go to inpatient rehab, he needs to be evaluated by social wo rker. The patient is homeless. Also benefit from the addiction social worker evaluation. At the same time, vladimir shearer has future oriented plans. He wants to work part-time and find his own place. The patient di d not express his interest to stop drinking. This typewriter assembler will sign off. There is no acute agitation , denied thoughts of harming himself or others, no psychotic symptoms. Education was provided. Thank you very much for letting me participate in care of your patient. If patient is interested, st art naltrexone for alcohol cravings or Vivitrol. Rebeca Merino MD cc: [id number] TT: 01/31/2017 11:37:58 Confirmation # [id number] Dictation # [id number] en
--- NOTE | 2017-01-31 12:23 | PN ---
DATE: 01/31/2017 Seen and examined at the bedside earlier today. He complains of abdominal pain which seems diffuse, but not on the right side. Reports it is 9..5/10, tolerated the liquid diet. He had a liquid bowel movement this morning, but no blood. No nausea or vomiting. He went for abdominal ultrasound this morning which reports hepatomegaly with fatty infiltration of the liver. There is a 9 mm lesion in t he right hepatic lobe which was not noted on a prior exam. Trace of pericholecystic fluid, mural thi ckening, mild dilation of the CBD duct without associated intrahepatic biliary ductal dilation. VITAL SIGNS: Temperature is 98.5, blood pressure is 144/91, pulse 77, respirations 19, 97 on room ai r. LABORATORY DATA: WBC is 4.0, H and H is 11.4 and 33.1, platelets are 117. Chem: Sodium is 133, K i s 3.5, BUN 2, creatinine is 0.6. His mag is 1.6, total bilirubin is 1.4, AST 328, ALT 103, alkaline phos is 275. PHYSICAL EXAMINATION: HEENT: Sclerae are anicteric. NECK: Supple. CARDIAC: S1, S2. LUNGS: Clear. ABDOMEN: With bowel sounds. It is soft. Positive for tenderness to epigastric right upper quadrant with hepatomegaly. EXTREMITIES: No edema. NEUROLOGIC: Awake, alert and aware of surroundings. ASSESSMENT: This is a 46-year-old male with history of active ETOH came with complaints of blood per rectum and epigastric discomfort. The patient is status post abdominal ultrasound which is noting a 9 mm lesion in the right hepatic lobe as well as questionable trace of pericholecystic fluid and com mon bile duct measuring 9 mm without associated intrahepatic biliary dilation. The patient also comp laining of loose bowel movement. PLAN: Follow up hepatitis C antibody. Trend LFTs. Currently, we will continue PPI. He is on Jp nix 48, on multivitamins. His magnesium is being replaced as well as the potassium. Continue thiami ne and folic acid. We will recommend to continue liquid diet as he is still having increased abdomin al pain. Consider MRCP for further evaluation of dilation and this hepatic lesion. The patient was seen and case discussed with Dr. Hickey. Rita JERRY cc: [id number] TT: 01/31/2017 12:23:03 Confirmation # [id number] Dictation # [id number] tn
--- NOTE | 2017-01-31 12:27 | CP.PCM.PN ---
<Giovany Nicholson - Last Filed: 01/31/17 12:12> Subjective - Date & Time of Evaluation Date of Evaluation: 01/31/17 Time of Evaluation: 07:45 - Subjective Subjective: Medicine Progress note. Dr. Monsivais Pt seen and examined at bedside. No acute events overnight. Patient denies any new complaints. No N/V/D. States that he feels a little anxious. No F/C. No SOB/ CP. He is ambulatory within his room. Objective - Vital Signs/Intake and Output Vital Signs (last 24 hours): Temp Pulse Resp BP Pulse Ox 98.5 F 77 19 144/91 H 97 01/31/17 06:00 01/31/17 06:00 01/31/17 06:00 01/31/17 06:00 01/31/17 06:00 Intake and Output: 01/31/17 01/31/17 06:59 18:59 Intake Total 2960 Output Total 1400 Balance 1560 - Medications Medications: Current Medications Folic Acid (Folic Acid) 1 mg PO DAILY [facility] Last Admin: 01/31/17 09:57 Dose: 1 mg Lorazepam (Ativan) 1 mg IVP Q2 PRN; Protocol PRN Reason: EtOH withdrawal symptoms Lorazepam (Ativan) 1 mg IVP Q6H JOHNNIE PRN Reason: Protocol Last Admin: 01/31/17 10:55 Dose: 1 mg Multivitamins (Thera Tab) 1 tab PO DAILY [facility] Last Admin: 01/31/17 09:57 Dose: 1 tab Pantoprazole Sodium (Protonix Ec Tab) 40 mg PO ACB [facility] Last Admin: 01/31/17 08:10 Dose: 40 mg Thiamine HCl (Vitamin B1 Tab) 100 mg PO DAILY [facility] Last Admin: 01/31/17 09:57 Dose: 100 mg - Labs Labs: 01/31/17 07:00 01/31/17 07:00 PT 13.0 Seconds (9.9-11.8) H 01/29/17 12:15 INR 1.20 (0.93-1.08) H 01/29/17 12:15 APTT 29.2 Seconds (23.7-30.8) 01/29/17 12:15 - Constitutional Appears: Well, No Acute Distress - Head Exam Head Exam: ATRAUMATIC, NORMAL INSPECTION, NORMOCEPHALIC - Eye Exam Eye Exam: EOMI, Normal appearance, PERRL. absent: Scleral icterus Pupil Exam: PERRL - ENT Exam ENT Exam: Mucous Membranes Moist, Normal Exam - Neck Exam Neck Exam: Full ROM, Normal Inspection - Respiratory Exam Respiratory Exam: Clear to Ausculation Bilateral, NORMAL BREATHING PATTERN. absent: Wheezes - Cardiovascular Exam Cardiovascular Exam: REGULAR RHYTHM, RRR, +S1, +S2. absent: JVD - GI/Abdominal Exam GI & Abdominal Exam: Soft, Normal Bowel Sounds. absent: Distended, Rigid, Tenderness - Extremities Exam Extremities Exam: Normal Inspection. absent: Calf Tenderness - Neurological Exam Neurological Exam: Alert, Awake, Oriented x3 - Psychiatric Exam Psychiatric exam: Normal Affect, Normal Mood - Skin Skin Exam: Dry, Intact, Normal Color Assessment and Plan - Assessment and Plan (Free Text) Assessment: 46yo M with PMHx of ETOH abuse and SI, here with diffuse abdominal pain, Suicidal ideation, and Hematochezia. 1. ETOH Intoxication/Withdrawal Alcohol 417 on admission CIWA protocol no signs of withdrawal at this time Ativan 1mg IV q6 johnnie Ativan 1mg IV q2 prn Thiamine, MVI, Folic acid Regular diet 2. Abdominal Pain/Elevated Transaminases/Hematochezia Consider likely secondary to ETOH abuse Regular Diet Lactate elevated on admission, trending down GI consulted, Dr. Hickey, appreciate recs NPO past midnight for elective EGD in the AM (02/01) if no signs of withdrawal CT Abd - no acute findings Abd US - Non-specific 9mm echogenic lesion in right hepatic lobe. Trace pericholecystic fluid with minimal mural thickening. Mildly dilated CBD 9mm. H/H stable No signs of active bleeding Previous Hep C negative. f/u Hep C antibody Protonix 40mg Daily 3. Suicidal Ideation Denies any current Suicidal Ideation Psych consult obtained Continue current management ETOH abuse recommend AA and NA 4. PPx SCDs Protonix 40mg PO Discussed case with Dr. Loi Nicholson PGY1 <Codie Monsivais - Last Filed: 01/31/17 13:20> Objective - Vital Signs/Intake and Output Vital Signs (last 24 hours): Temp Pulse Resp BP Pulse Ox 98.5 F 77 19 144/91 H 97 01/31/17 06:00 01/31/17 06:00 01/31/17 06:00 01/31/17 06:00 01/31/17 06:00 Intake and Output: 01/31/17 01/31/17 06:59 18:59 Intake Total 2960 Output Total 1400 Balance 1560 - Medications Medications: Current Medications Folic Acid (Folic Acid) 1 mg PO DAILY [facility] Last Admin: 01/31/17 09:57 Dose: 1 mg Lorazepam (Ativan) 1 mg IVP Q2 PRN; Protocol PRN Reason: EtOH withdrawal symptoms Lorazepam (Ativan) 1 mg IVP Q6H JOHNNIE PRN Reason: Protocol Last Admin: 01/31/17 10:55 Dose: 1 mg Multivitamins (Thera Tab) 1 tab PO DAILY JOHNNIE Last Admin: 01/31/17 09:57 Dose: 1 tab Pantoprazole Sodium (Protonix Ec Tab) 40 mg PO ACB JOHNNIE Last Admin: 01/31/17 08:10 Dose: 40 mg Thiamine HCl (Vitamin B1 Tab) 100 mg PO DAILY [facility] Last Admin: 01/31/17 09:57 Dose: 100 mg - Labs Labs: 01/31/17 07:00 01/31/17 07:00 PT 13.0 Seconds (9.9-11.8) H 01/29/17 12:15 INR 1.20 (0.93-1.08) H 01/29/17 12:15 APTT 29.2 Seconds (23.7-30.8) 01/29/17 12:15 Attending/Attestation - Attestation I have personally seen and examined this patient.: Yes I have fully participated in the care of the patient.: Yes I have reviewed all pertinent clinical information, including history, physical exam and plan: Yes Notes (Text): 01/31/17 13:08 46 year old homeless male with past medical history of ETOH abuse presented with alcohol intoxication, abdominal pain, blood in stools and suicidal thoughts. He received banana bag and is now on po multivitamin, folic acid and thiamine. He is on ativan johnnie and prn for withdrawal symptoms. GI evaluation was appreciated. His hemoglobin is stable. CT abd/pelvis is negative for acute findings. US abdomen reviewed as above. Case was discussed with Dr. Hickey. Plan is for possible EGD tomorrow if patient is not in acute withdrawal. Continue with protonix. Psychiatry evaluation was also appreciated. Patient denies suicidal ideation at this time. He was counselled on alcohol cessation. Social work evaluation. Codie Monsivais MD Hospitalist.
--- NOTE | 2017-02-01 01:04 | PN ---
DATE: 01/31/2017 ADDENDUM: This is an addendum to the GI progress report dictated by Rita Good. The patient was seen and evaluated and discussed with the nursing staff and also with Dr. Monsivais. No bleeding, no further episodes of bleeding per rectum or melena. The patient has some mild epigastric tenderness, hepatomegaly present. PHYSICAL EXAMINATION: Hepatomegaly, mild tenderness in the epigastric area. LABORATORY DATA: Hemoglobin is stable at 11.4. RECOMMENDATIONS: We would recommend: 1. Followup of the hemoglobin, hematocrit and continue the PPI colonoscopy for upper GI endoscopy in a.m. delirium tremens this patient's alcohol on admission was over 400. The patient is schedu led for an EGD tomorrow based on his clinical status. Lila Hickey MD cc: [id number] TT: 02/01/2017 01:03:36 Confirmation # [id number] Dictation # [id number] mn
--- NOTE | 2017-02-01 03:11 | CP.PCM.DIS ---
<Joshua Otto - Last Filed: 02/01/17 02:58> Provider - Provider Date of Admission: 01/30/17 14:37 Attending physician: Codie Monsivais MD Primary care physician: NO PRIMARY CARE PROVIDER Time Spent in preparation of Discharge (in minutes): 30 Diagnosis - Discharge Diagnosis (1) Guaiac positive stools Status: Acute Priority: High (2) Lactic acidosis Status: Resolved Priority: Medium (3) Abdominal pain Status: Resolved Priority: Medium (4) Alcohol abuse Status: Chronic Priority: Medium (5) Alcohol intoxication Status: Resolved Priority: Low Hospital Course - Lab Results Lab Results: Most Recent Lab Values WBC 4.0 10^3/ul (4.5-11.0) L 01/31/17 07:00 RBC 3.24 10^6/uL (3.5-6.1) L 01/31/17 07:00 Hgb 11.4 gm/dL (14.0-18.0) L 01/31/17 07:00 Hct 33.1 % (42.0-52.0) L 01/31/17 07:00 MCV 102.2 fL (80.0-105.0) 01/31/17 07:00 MCH 35.2 pg (25.0-35.0) H 01/31/17 07:00 MCHC 34.4 g/dl (31.0-37.0) 01/31/17 07:00 RDW 13.1 % (11.5-14.5) 01/31/17 07:00 Plt Count 117 10^3/uL (120.0-450.0) L 01/31/17 07:00 MPV 10.1 fl (7.0-11.0) 01/31/17 07:00 Gran % 71.9 % (50.0-68.0) H 01/29/17 12:15 Lymph % (Auto) 18.7 % (22.0-35.0) L 01/29/17 12:15 [place] % (Auto) 8.8 % (1.0-6.0) H 01/29/17 12:15 Eos % (Auto) 0.1 % (1.5-5.0) L 01/29/17 12:15 Baso % (Auto) 0.5 % (0.0-3.0) 01/29/17 12:15 Gran # 5.30 (1.4-6.5) 01/29/17 12:15 Lymph # 1.4 (1.2-3.4) 01/29/17 12:15 [place] # 0.7 (0.1-0.6) H 01/29/17 12:15 Eos # 0.0 (0.0-0.7) 01/29/17 12:15 Baso # 0.04 K/mm3 (0.0-2.0) 01/29/17 12:15 PT 13.0 Seconds (9.9-11.8) H 01/29/17 12:15 INR 1.20 (0.93-1.08) H 01/29/17 12:15 APTT 29.2 Seconds (23.7-30.8) 01/29/17 12:15 Sodium 133 mmol/L (132-148) 01/31/17 07:00 Potassium 3.5 mmol/L (3.6-5.0) L 01/31/17 07:00 Chloride 97 mmol/L (95-110) 01/31/17 07:00 Carbon Dioxide 29 mmol/L (21-33) 01/31/17 07:00 Anion Gap 11 (10-20) 01/31/17 07:00 BUN 2 mg/dL (7-21) L 01/31/17 07:00 Creatinine 0.6 mg/dL (0.5-1.4) 01/31/17 07:00 Est GFR ( Amer) > 60 01/31/17 07:00 Est GFR (Non-Af Amer) > 60 01/31/17 07:00 POC Glucose (mg/dL) 87 mg/dL (65-110) 01/29/17 12:10 Random Glucose 94 mg/dL (70-110) 01/31/17 07:00 Lactic Acid 1.2 mmol/L (0.7-2.1) 01/31/17 07:00 Calcium 9.0 mg/dL (8.4-10.5) 01/31/17 07:00 Magnesium 1.6 mg/dL (1.7-2.2) L 01/31/17 07:00 Total Bilirubin 1.4 mg/dL (0.2-1.3) H 01/31/17 07:00 AST 328 U/L (15-59) H 01/31/17 07:00 ALT 103 U/L (7-56) H 01/31/17 07:00 Alkaline Phosphatase 275 U/L (38-133) H 01/31/17 07:00 Lactate Dehydrogenase 673 U/L (333-699) 01/29/17 12:15 Total Creatine Kinase 103 U/L (35-230) 01/29/17 12:15 Troponin I < 0.01 ng/mL 01/29/17 12:15 Total Protein 8.4 g/dL (5.8-8.3) H 01/31/17 07:00 Albumin 3.7 g/dL (3.0-4.8) 01/31/17 07:00 Globulin 4.7 gm/dL 01/31/17 07:00 Albumin/Globulin Ratio 0.8 (1.1-1.8) L 01/31/17 07:00 Amylase 80 U/L (35-125) 01/29/17 12:15 Lipase 257 U/L (23-300) 01/29/17 12:15 Urine Color Yellow (YELLOW) 01/29/17 12:15 Urine Appearance Clear (CLEAR) 01/29/17 12:15 Urine pH 6.5 (4.7-8.0) 01/29/17 12:15 Ur Specific [place] 1.010 (1.005-1.035) 01/29/17 12:15 Urine Protein Negative mg/dL (<30 mg/dL) 01/29/17 12:15 Urine Glucose (UA) Negative mg/dL (NEGATIVE) 01/29/17 12:15 Urine Ketones Negative mg/dL (NEGATIVE) 01/29/17 12:15 Urine Blood Negative (NEGATIVE) 01/29/17 12:15 Urine Nitrate Negative (NEGATIVE) 01/29/17 12:15 Urine Bilirubin Negative (NEGATIVE) 01/29/17 12:15 Urine Urobilinogen 0.2 E.U./dL (<1 E.U./dL) 01/29/17 12:15 Ur Leukocyte Esterase Negative Ty/uL (NEGATIVE) 01/29/17 12:15 Urine Opiates Screen Negative (NEGATIVE) 01/29/17 12:15 Urine Methadone Screen Negative (NEGATIVE) 01/29/17 12:15 Ur Barbiturates Screen Negative (NEGATIVE) 01/29/17 12:15 Ur Phencyclidine Scrn Negative (NEGATIVE) 01/29/17 12:15 Ur Amphetamines Screen Negative (NEGATIVE) 01/29/17 12:15 U Benzodiazepines Scrn Negative (NEGATIVE) 01/29/17 12:15 U Oth Cocaine Metabols Negative (NEGATIVE) 01/29/17 12:15 U Cannabinoids Screen Negative (NEGATIVE) 01/29/17 12:15 Alcohol, Quantitative 417 mg/dL (0-10) H* 01/29/17 12:15 Hepatitis C Antibody Negative (NEGATIVE) 01/31/17 08:00 - Hospital Course Hospital Course: This is a 46 yo M with PMHx of Alcohol abuse and suicidal ideation who presented with complaints of sharp abdominal pain of several days duration, multiple episodes of emesis, and suicidal ideation without a plan. He was admitted for alcohol withdrawal, suicidal ideation, and lactic acidosis with guiac positive stools and reported (by patient) hematochezia & melena. Patient was also seen by Psych and GI during this admission. Psych noted that the patient no longer endorsed suicidal thoughts, should follow up with AA and NA, and did not meet criteria for inpatient psychiatric admission. GI recommended PPI treatment for possible GI bleed, and recommended elective EGD, which was to be performed on 02/01. This evening, the patient abruptly elected to leave against medical advice. Patient was evasive regarding reasoning for wishing to leave, stating only that his abdominal pain was better now, and he could follow up later for his EGD. When reminded that he presented in part due to his concern for his bloody stooling, he stated he wasn't worried about it anymore. Risks of leaving against medical advice, including worsening alcohol withdrawal , seizures/delirium tremens, continued/worsening GI bleeding, shock, cardiopulmonary arrest, and were explained to the patient, who expressed understanding but still wished to leave AMA. AMA paperwork was filled out, signed by patient and witnessed by nursing. Patient was instructed to return to the hospital if he experienced worsening symptoms. Patient then left AMA. - Date & Time of H&P Date of H&P: 01/30/17 Time of H&P: 00:29 Discharge Exam - Head Exam Head Exam: ATRAUMATIC, NORMOCEPHALIC - Neurological Exam Neurological exam: Alert, Normal Gait, Oriented x3 - Psychiatric Exam Psychiatric exam: Normal Affect, Normal Mood - Additional Findings Additional findings: physical exam not performed, as patient left against medical advice Discharge Plan - Follow Up Plan Condition: FAIR Disposition: AGAINST MEDICAL ADVICE Instructions: Acute Abdominal Pain (DC), Acute Abdominal Pain (GEN) Referrals: PCP,NO [Primary Care Provider] - Follow up with primary <Codie Monsivais - Last Filed: 02/01/17 06:51> Provider - Provider Date of Admission: 01/30/17 14:37 Attending physician: Codie Monsivais MD Primary care physician: NO PRIMARY CARE PROVIDER Hospital Course - Lab Results Lab Results: Most Recent Lab Values WBC 4.0 10^3/ul (4.5-11.0) L 01/31/17 07:00 RBC 3.24 10^6/uL (3.5-6.1) L 01/31/17 07:00 Hgb 11.4 gm/dL (14.0-18.0) L 01/31/17 07:00 Hct 33.1 % (42.0-52.0) L 01/31/17 07:00 MCV 102.2 fL (80.0-105.0) 01/31/17 07:00 MCH 35.2 pg (25.0-35.0) H 01/31/17 07:00 MCHC 34.4 g/dl (31.0-37.0) 01/31/17 07:00 RDW 13.1 % (11.5-14.5) 01/31/17 07:00 Plt Count 117 10^3/uL (120.0-450.0) L 01/31/17 07:00 MPV 10.1 fl (7.0-11.0) 01/31/17 07:00 Gran % 71.9 % (50.0-68.0) H 01/29/17 12:15 Lymph % (Auto) 18.7 % (22.0-35.0) L 01/29/17 12:15 [place] % (Auto) 8.8 % (1.0-6.0) H 01/29/17 12:15 Eos % (Auto) 0.1 % (1.5-5.0) L 01/29/17 12:15 Baso % (Auto) 0.5 % (0.0-3.0) 01/29/17 12:15 Gran # 5.30 (1.4-6.5) 01/29/17 12:15 Lymph # 1.4 (1.2-3.4) 01/29/17 12:15 [place] # 0.7 (0.1-0.6) H 01/29/17 12:15 Eos # 0.0 (0.0-0.7) 01/29/17 12:15 Baso # 0.04 K/mm3 (0.0-2.0) 01/29/17 12:15 PT 13.0 Seconds (9.9-11.8) H 01/29/17 12:15 INR 1.20 (0.93-1.08) H 01/29/17 12:15 APTT 29.2 Seconds (23.7-30.8) 01/29/17 12:15 Sodium 133 mmol/L (132-148) 01/31/17 07:00 Potassium 3.5 mmol/L (3.6-5.0) L 01/31/17 07:00 Chloride 97 mmol/L (95-110) 01/31/17 07:00 Carbon Dioxide 29 mmol/L (21-33) 01/31/17 07:00 Anion Gap 11 (10-20) 01/31/17 07:00 BUN 2 mg/dL (7-21) L 01/31/17 07:00 Creatinine 0.6 mg/dL (0.5-1.4) 01/31/17 07:00 Est GFR ( Amer) > 60 01/31/17 07:00 Est GFR (Non-Af Amer) > 60 01/31/17 07:00 POC Glucose (mg/dL) 87 mg/dL (65-110) 01/29/17 12:10 Random Glucose 94 mg/dL (70-110) 01/31/17 07:00 Lactic Acid 1.2 mmol/L (0.7-2.1) 01/31/17 07:00 Calcium 9.0 mg/dL (8.4-10.5) 01/31/17 07:00 Magnesium 1.6 mg/dL (1.7-2.2) L 01/31/17 07:00 Total Bilirubin 1.4 mg/dL (0.2-1.3) H 01/31/17 07:00 AST 328 U/L (15-59) H 01/31/17 07:00 ALT 103 U/L (7-56) H 01/31/17 07:00 Alkaline Phosphatase 275 U/L (38-133) H 01/31/17 07:00 Lactate Dehydrogenase 673 U/L (333-699) 01/29/17 12:15 Total Creatine Kinase 103 U/L (35-230) 01/29/17 12:15 Troponin I < 0.01 ng/mL 01/29/17 12:15 Total Protein 8.4 g/dL (5.8-8.3) H 01/31/17 07:00 Albumin 3.7 g/dL (3.0-4.8) 01/31/17 07:00 Globulin 4.7 gm/dL 01/31/17 07:00 Albumin/Globulin Ratio 0.8 (1.1-1.8) L 01/31/17 07:00 Amylase 80 U/L (35-125) 01/29/17 12:15 Lipase 257 U/L (23-300) 01/29/17 12:15 Urine Color Yellow (YELLOW) 01/29/17 12:15 Urine Appearance Clear (CLEAR) 01/29/17 12:15 Urine pH 6.5 (4.7-8.0) 01/29/17 12:15 Ur Specific [place] 1.010 (1.005-1.035) 01/29/17 12:15 Urine Protein Negative mg/dL (<30 mg/dL) 01/29/17 12:15 Urine Glucose (UA) Negative mg/dL (NEGATIVE) 01/29/17 12:15 Urine Ketones Negative mg/dL (NEGATIVE) 01/29/17 12:15 Urine Blood Negative (NEGATIVE) 01/29/17 12:15 Urine Nitrate Negative (NEGATIVE) 01/29/17 12:15 Urine Bilirubin Negative (NEGATIVE) 01/29/17 12:15 Urine Urobilinogen 0.2 E.U./dL (<1 E.U./dL) 01/29/17 12:15 Ur Leukocyte Esterase Negative Ty/uL (NEGATIVE) 01/29/17 12:15 Urine Opiates Screen Negative (NEGATIVE) 01/29/17 12:15 Urine Methadone Screen Negative (NEGATIVE) 01/29/17 12:15 Ur Barbiturates Screen Negative (NEGATIVE) 01/29/17 12:15 Ur Phencyclidine Scrn Negative (NEGATIVE) 01/29/17 12:15 Ur Amphetamines Screen Negative (NEGATIVE) 01/29/17 12:15 U Benzodiazepines Scrn Negative (NEGATIVE) 01/29/17 12:15 U Oth Cocaine Metabols Negative (NEGATIVE) 01/29/17 12:15 U Cannabinoids Screen Negative (NEGATIVE) 01/29/17 12:15 Alcohol, Quantitative 417 mg/dL (0-10) H* 01/29/17 12:15 Hepatitis C Antibody Negative (NEGATIVE) 01/31/17 08:00 Attending/Attestation - Attestation I have reviewed all pertinent clinical information, including history, physical exam and plan: Yes Notes (Text): 02/01/17 06:50 46 year old homeless male with past medical history of ETOH abuse presented with alcohol intoxication, abdominal pain, blood in stools and suicidal thoughts. He received banana bag and is now on po multivitamin, folic acid and thiamine. He is on ativan johnnie and prn for withdrawal symptoms. His hemoglobin is stable. CT abd/pelvis is negative for acute findings. US abdomen reviewed as above. He was seen by GI and plan was for EGD today. He was on protonix. Psychiatry evaluation was also appreciated. Patient denies suicidal ideation at this time. He was counselled on alcohol cessation. Patient signed out AMA last night. Codie Monsivais MD Hospitalist.
== END 2017-02-01 02:03 | disposition left against medical advice (07) | DRG 749 ==
LOC: ED 11:05 → ERH 19:40 → 3RSO 20:21 → OBSVTOIN 01-30 14:37
PROVIDERS: ADMIT Hospitalist; ATTEND Internal Medicine
DX: F10.239 Alcohol dependence with withdrawal, unspecified (principal); F10.229 Alcohol dependence with intoxication, unspecified; Y90.8 Blood alcohol level of 240 mg/100 ml or more; R45.851 Suicidal ideations; E87.2 Acidosis; R16.0 Hepatomegaly, not elsewhere classified; K92.1 Melena; K76.0 Fatty (change of) liver, not elsewhere classified; R10.9 Unspecified abdominal pain; F17.210 Nicotine dependence, cigarettes, uncomplicated; R74.8 Abnormal levels of other serum enzymes; Z76.5 Malingerer [conscious simulation]; Z59.0 Homelessness

== ENCOUNTER 2017-02-07 12:37 | Observation (INO) | payer MEDICAID, OTHER ==
[2017-02-07] MEDS ORDERED: Sodium Chloride 0.9% 1,000 ML IV STA ×2 (13:06→14:51)
--- NOTE | 2017-02-07 13:08 | ED PDOC ---
Arrival/HPI - General Chief Complaint: Abdominal Pain Time Seen by Provider: 02/07/17 12:39 Historian: Patient - History of Present Illness Narrative History of Present Illness (Text): 02/07/17 13:08 46 year old male well known to the emergency department with a history of ETOH abuse and guaiac positive stools presenting to emergency department complaining of abdominal pain similar to his usual pain. Patient was admitted on 01-30-2017 for GI bleed, and left the hospital against medical advice before EGD was performed. He currently complains of dark bloody stool, abdominal pain, and vomiting. PMD: None Time/Duration: > week Symptom Onset: Gradual Symptom Course: Unchanged Modifying Factors (Text): None Associated Symptoms (Text): dysuria, bloody stool, vomiting. Past Medical History - Provider Review Nursing Documentation Reviewed: Yes - Infectious Disease Hx of Infectious Diseases: None - Tetanus Immunization Tetanus Immunization: Up to Date - Reproductive Currently : No - Past Medical History Past Medical History: No Previous - Cardiac Hx Cardiac Disorders: Yes Hx Hypertension: Yes - Pulmonary Hx Respiratory Disorders: No - Neurological Hx Neurological Disorder: No - HEENT Hx HEENT Disorder: No - Renal Hx Renal Disorder: No - Endocrine/Metabolic Hx Endocrine Disorders: No - Hematological/Oncological Hx Blood Disorders: No - Integumentary Hx Dermatological Disorder: No - Musculoskeletal/Rheumatological Hx Musculoskeletal Disorders: No Hx Back Pain: Yes Hx Falls: Yes - Gastrointestinal Hx Gastrointestinal Disorders: No - Genitourinary/Gynecological Hx Genitourinary Disorders: No - Psychiatric Hx Psychophysiologic Disorder: Yes Hx Depression: Yes Hx Substance Use: No Other/Comment: ETOH - Past Surgical History Past Surgical History: No Previous - Anesthesia Hx Anesthesia: Yes Hx Anesthesia Reactions: No Hx Malignant Hyperthermia: No - Suicidal Assessment Feels Threatened In Home Enviroment: No Family/Social History - Physician Review Nursing Documentation Reviewed: Yes Family/Social History: Unknown Family HX Smoking Status: Current Some Days Smoker Hx Alcohol Use: Yes (ETOH) Frequency of alcohol use: Daily Hx Substance Use: No Hx Substance Use Treatment: No Allergies/Home Meds Allergies/Adverse Reactions: Allergies No Known Allergies Allergy (Verified 02/07/17 12:39) Home Medications: Home Meds Medication Instructions Recorded Confirmed No Known Home Med 02/07/17 02/07/17 Review of Systems - Review of Systems Constitutional: Other (chills). absent: Fevers Eyes: absent: Vision Changes ENT: absent: Hearing Changes Respiratory: absent: SOB, Cough, Sputum, Wheezing Cardiovascular: absent: Chest Pain, Palpitations, Edema, Calf Pain, CHAVEZ, Orthopnea, Syncope Gastrointestinal: Abdominal Pain, Stool Changes, Vomiting, Other (blood in stool ). absent: Constipation, Diarrhea Genitourinary Male: absent: Dysuria Musculoskeletal: absent: Neck Pain Skin: absent: Rash Neurological: absent: Speech Changes Endocrine: absent: Diaphoresis Hemo/Lymphatic: absent: Adenopathy Psychiatric: absent: Anxiety Physical Exam Vital Signs Reviewed: Yes Vital Signs Temp Pulse Resp BP Pulse Ox 02/07/17 15:30 79 18 130/68 96 02/07/17 12:47 98.2 F 86 18 132/71 96 Temperature: Afebrile Blood Pressure: Normal Pulse: Regular Respiratory Rate: Normal Appearance: Positive for: Well-Appearing Pain Distress: Mild Mental Status: Positive for: Alert and Oriented X 3 - Systems Exam Head: Present: Atraumatic, Normocephalic Pupils: Present: PERRL Extroacular Muscles: Present: EOMI Conjunctiva: Present: Normal Mouth: Present: Moist Mucous Membranes Neck: Present: Normal Range of Motion Respiratory/Chest: Present: Clear to Auscultation, Good Air Exchange. No: Respiratory Distress, Accessory Muscle Use Cardiovascular: Present: Regular Rate and Rhythm, Normal S1, S2. No: Murmurs Abdomen: Present: Tenderness (epigastric tenderness to palpation ), Normal Bowel Sounds. No: Distention, Peritoneal Signs Upper Extremity: Present: Normal Inspection. No: Cyanosis, Edema Lower Extremity: Present: Normal Inspection. No: Edema Neurological: Present: GCS=15, CN II-XII Intact, Speech Normal Skin: Present: Warm, Dry, Normal Color. No: Rashes Psychiatric: Present: Alert Medical Decision Making ED Course and Treatment: Impression: 46 year old male presents to the emergency department complaining of abdominal pain similar to his usual pain. He has a hx of alcohol abuse and was scheduled for EGD before he signed out AMA. Plan: -- Chest X-ray to r/o free air -- Pantoprazole and IV fluids -- Labs and VBG -- Reassess and disposition Prior Visits: Patient was admitted on 01-30-2017 for a questionable GI bleed, and left the hospital against medical advice before EGD was performed. Ultrasound of the Abdomen from 01/31/17 Adult Literacy Teacher : Collin George MD IMPRESSION: Or hepatomegaly with fatty infiltration of the liver. 9 mm echogenic lesion in right hepatic lobe not noted on prior examination. Nonspecific. No evidence of cholelithiasis. Trace pericholecystic fluid and minimal mural thickening. Negative sonographic Cuellar's sign. Nonspecific findings. Mild dilatation of common bile duct without associated intrahepatic biliary dilatation. Uncertain significance. Please correlate with clinical and laboratory evaluation. Progress Notes: Patient is again presenting with alcohol intoxication and lactic acidosis. He reports that the pain is too severe to eat and that he cannot follow-up with GI as outpatient and is homeless and has no PMD. 2L IVF infusing. He reports that he will stay in the hospital this time for further GI evaluation of persistent blood in stool. Spoke to hospitalist and will transfer to remote tele observation for monitoring and gi eval. - Lab Interpretations Lab Results: 02/07/17 14:20 02/07/17 14:20 Lab Results 02/07/17 14:23: Blood Type A POSITIVE, Antibody Screen Negative, BBK History Checked No verified bt 02/07/17 14:20: WBC 8.1 D, RBC 3.46 L, Hgb 12.5 L, Hct 35.8 L, MCV 103.5, MCH 36.1 H, MCHC 34.9, RDW 13.5, Plt Count 216, MPV 9.1, Gran % 62.5, Lymph % (Auto ) 28.0, [place] % (Auto) 8.3 H, Eos % (Auto) 0.5 L, Baso % (Auto) 0.7, Gran # 5.03 , Lymph # 2.3, [place] # 0.7 H, Eos # 0.0, Baso # 0.06, PT 12.8 H, INR 1.19 H, APTT 27.8, pO2 36, VBG pH 7.36, VBG pCO2 53.0, VBG HCO3 29.9 H, VBG Total CO2 31.5 H, VBG O2 Sat (Calc) 62.5, VBG Base Excess 3.2 H, VBG Potassium 3.7, Glucose 72 L, Lactate 2.8 H, FiO2 21.0, Sodium 141.0, Potassium 3.9, Chloride 104.0, Carbon Dioxide 27, Anion Gap 17, BUN 7, Creatinine 0.6, Est GFR ( Amer) > 60, Est GFR (Non-Af Amer) > 60, Random Glucose 75, Calcium 9.5, Total Bilirubin 0.6, AST 232 H, ALT 73 H, Alkaline Phosphatase 344 H, Total Protein 8.8 H, Albumin 4.1, Globulin 4.7, Albumin/Globulin Ratio 0.9 L, Lipase 199, Venous Blood Potassium 3.7, Alcohol, Quantitative 353 H* 02/07/17 14:15: Urine Color Yellow, Urine Appearance Clear, Urine pH 6.5, Ur Specific [place] <= 1.005, Urine Protein Negative, Urine Glucose (UA) Negative, Urine Ketones Negative, Urine Blood Negative, Urine Nitrate Negative, Urine Bilirubin Negative, Urine Urobilinogen 0.2, Ur Leukocyte Esterase Negative - RAD Interpretation Radiology Orders: 02/07/17 13:05 CHEST PORTABLE [RAD] Stat - Medication Orders Current Medication Orders: Discontinued Medications Sodium Chloride (Sodium Chloride 0.9%) 1,000 mls @ 999 mls/hr IV .Q1H1M STA Stop: 02/07/17 14:06 Last Admin: 02/07/17 14:27 Dose: 999 MLS/HR eMAR Start Stop Document 02/07/17 14:27 OCS (Rec: 02/07/17 14:27 [id number]) Intravenous Solution Start Date 02/07/17 Start Time 14:27 Sodium Chloride (Sodium Chloride 0.9%) 1,000 mls @ 999 mls/hr IV .Q1H1M STA Stop: 02/07/17 15:51 Last Admin: 02/07/17 15:25 Dose: 999 MLS/HR eMAR Start Stop Document 02/07/17 15:25 OCS (Rec: 02/07/17 15:25 [id number]) Intravenous Solution Start Date 02/07/17 Start Time 15:25 Pantoprazole Sodium (Protonix Inj) 80 mg IVP STAT STA Stop: 02/07/17 13:08 Last Admin: 02/07/17 14:27 Dose: 80 MG IVP Administration Document 02/07/17 14:27 OCS (Rec: 02/07/17 14:28 OCS [facility] [id number]) Charges for Administration # of IVP Administrations 1 - Scribe Statement The provider has reviewed the documentation as recorded by the Tedibe Kae Carbajal, training with Tomas Mora All medical record entries made by the Tedibaudi were at my direction and personally dictated by me. I have reviewed the chart and agree that the record accurately reflects my personal performance of the history, physical exam, medical decision making, and the department course for this patient. I have also personally directed, reviewed, and agree with the discharge instructions and disposition. Disposition/Present on Arrival - Present on Arrival Any Indicators Present on Arrival: No History of DVT/PE: No History of Uncontrolled Diabetes: No Urinary Catheter: No History of Decub. Ulcer: No History Surgical Site Infection Following: None - Disposition Have Diagnosis and Disposition been Completed?: Yes Diagnosis: Guaiac positive stools, Alcohol abuse, Gastritis Disposition: HOSPITALIZED Disposition Time: 15:47 Patient Plan: Observation Patient Problems: Current Active Problems Problem Status Diagnosed Guaiac positive stools Acute Gastritis Acute Alcohol abuse Chronic Abdominal pain Resolved Lactic acidosis Resolved Alcohol intoxication Resolved Alcohol withdrawal Resolved Hypomagnesemia Resolved Condition: FAIR Referrals: PCP,NO [Primary Care Provider] - Follow up with primary
[2017-02-07 14:22] LABS: PH,URINE 6.5 (4.7-8.0); URINE APPEARANCE CLEAR (CLEAR); URINE BILIRUBIN NEGATIVE (NEGATIVE); URINE BLOOD NEGATIVE (NEGATIVE); URINE COLOR YELLOW (YELLOW); URINE GLUCOSE (UA) NEGATIVE (NEGATIVE); URINE KETONE NEGATIVE (NEGATIVE); URINE LEUKOCYTE ESTERASE NEGATIVE Leu/uL (NEGATIVE); URINE PROTEIN NEGATIVE mg/dL (<30 mg/dL); URINE UROBILINOGEN 0.2 E.U./dL (<1 E.U./dL)
[2017-02-07 14:27] LABS: ADD MANUAL DIFF? NO
--- NOTE | 2017-02-07 14:28 | RAD ---
HISTORY: UPRIGHT, abdominal pain, blood in stool COMPARISON: 01/16/2017. FINDINGS: LUNGS: No active pulmonary disease. PLEURA: No significant pleural effusion identified, no pneumothorax apparent. CARDIOVASCULAR: Normal. OSSEOUS STRUCTURES: No significant abnormalities. VISUALIZED UPPER ABDOMEN: Normal. OTHER FINDINGS: None. IMPRESSION: No active disease. No significant interval change compared to the prior examination(s).
[2017-02-07 14:33] LABS: VENOUS BLOOD GAS BASE EXCESS 3.2 mmol/L (0.0-2.0); VENOUS BLOOD PH 7.36 (7.32-7.43)
[2017-02-07 14:37] LABS: BASO # 0.06 [, K/mm3] (0.0-2.0); BASO % 0.7 % (0.0-3.0); EOS % 0.5 % (1.5-5.0); GRAN # 5.03 (1.4-6.5); GRAN % 62.5 % (50.0-68.0); HEMATOCRIT 35.8 % (42.0-52.0); LYMPH # 2.3 (1.2-3.4); MEAN CELL VOLUME 103.5 fL (80.0-105.0); MEAN CORPUSCULAR HEMOGLOBIN 36.1 pg (25.0-35.0); MEAN CORPUSCULAR HGB CONC 34.9 g/dl (31.0-37.0); MEAN PLATELET VOLUME 9.1 fl (7.0-11.0); MONO # 0.7 (0.1-0.6); MONO % 8.3 % (1.0-6.0); PLATELET COUNT 216 [, 10^3/uL] (120.0-450.0); RED CELL DISTRIBUTION WIDTH 13.5 % (11.5-14.5); WHITE BLOOD COUNT 8.1 [, 10^3/ul] (4.5-11.0)
[2017-02-07 14:40] LABS: ALB/GLOB RATIO 0.9 (1.1-1.8); ALKALINE PHOSPHATASE 344 U/L (38-133); ALT/SGPT 73 U/L (7-56); AST/SGOT 232 U/L (15-59); BILIRUBIN,TOTAL 0.6 mg/dL (0.2-1.3); BLOOD UREA NITROGEN 7 mg/dL (7-21); CALCIUM 9.5 mg/dL (8.4-10.5); CARBON DIOXIDE 27 mmol/L (21-33); CHLORIDE 99 mmol/L (98-107); GFR AFRICAN-AMERICAN > 60; GLUCOSE,RANDOM 75 mg/dL (70-110); LIPASE 199 U/L (23-300); POTASSIUM 3.9 mmol/L (3.6-5.0); SODIUM 139 mmol/L (132-148); TOTAL PROTEIN 8.8 g/dL (5.8-8.3)
[2017-02-07 14:47] LABS: INR 1.19 (0.93-1.08); PARTIAL THROMBOPLASTIN TIME 27.8 Seconds (23.7-30.8)
--- NOTE | 2017-02-07 16:58 | CP.PCM.HP ---
<Carlos Corral - Last Filed: 02/07/17 17:08> History of Present Illness - History of Present Illness History of Present Illness: 46 y/o M with PMH of alcohol abuse and suicidal ideation presents to the ED for 1 day hx of severe abdominal pain. Pt states he had sudden onset of abdominal pain yesterday morning. Pt rates the pain as 10/10 and is located in his lower abdomen. Pain is nonradiating. Pain is constant and he has not taken any medication for relief. Pt also admits to having bloody episodes of emesis and bloody bowel movements. Pt is also complaining of slight chest pain that is worse with palpation. Chest pain is nonradiating, rated a 10/10 as well. Pt was scheduled for an EGD in the past but left AMA. Pt has been seen in the ED many times in the past for similar complaints. Pt is currently homeless. Denies CP, SOB, fevers, chills, numbness, tingling, changes in appetite. PMH: Alcohol abuse, suicidal ideation Surgical Hx: Denies Family Hx: Denies Social Hx: Admits to alcohol and tobacco use, 1/2 ppd. Denies illicit drug use. Homeless. Medication: None Allergies: None Present on Admission - Present on Admission Any Indicators Present on Admission: No Review of Systems - Constitutional Constitutional: Fatigue. absent: Lethargy, Weight Loss - EENT Eyes: absent: Blind Spots, Blurred Vision - Cardiovascular Cardiovascular: Chest Pain. absent: Irregular Heart Rhythm, Palpitations - Respiratory Respiratory: absent: Cough, Dyspnea - Gastrointestinal Gastrointestinal: Abdominal Pain, Diarrhea, Nausea, Vomiting - Genitourinary Genitourinary: absent: Difficulty Urinating, Dysuria - Musculoskeletal Musculoskeletal: absent: Numbness, Tingling - Integumentary Integumentary: absent: New Lesions, Swelling - Neurological Neurological: absent: Numbness, Syncope, Tingling - Psychiatric Psychiatric: absent: Anxiety, Depression - Hematologic/Lymphatic Hematologic: absent: Easy Bleeding, Easy Bruising Past Patient History - Infectious Disease Hx of Infectious Diseases: None - Tetanus Immunizations Tetanus Immunization: Up to Date - Past Medical History & Family History Past Medical History?: Yes - Past Social History Smoking Status: Current Some Days Smoker - CARDIAC Hx Cardiac Disorders: Yes Hx Hypertension: Yes - PULMONARY Hx Respiratory Disorders: No - NEUROLOGICAL Hx Neurological Disorder: No - HEENT Hx HEENT Problems: No - RENAL Hx Chronic Kidney Disease: No - ENDOCRINE/METABOLIC Hx Endocrine Disorders: No - HEMATOLOGICAL/ONCOLOGICAL Hx Blood Disorders: No - INTEGUMENTARY Hx Dermatological Problems: No - MUSCULOSKELETAL/RHEUMATOLOGICAL Hx Musculoskeletal Disorders: No Hx Back Pain: Yes Hx Falls: Yes - GASTROINTESTINAL Hx Gastrointestinal Disorders: No - GENITOURINARY/GYNECOLOGICAL Hx Genitourinary Disorders: No - PSYCHIATRIC Hx Psychophysiologic Disorder: Yes Hx Depression: Yes Hx Substance Use: No Other/Comment: ETOH - SURGICAL HISTORY Hx Surgeries: Yes - ANESTHESIA Hx Anesthesia: Yes Hx Anesthesia Reactions: No Hx Malignant Hyperthermia: No Meds Allergies/Adverse Reactions: Allergies Allergy/AdvReac Type Severity Reaction Status Date / Time No Known Allergies Allergy Verified 02/07/17 19:06 Physical Exam - Constitutional Appears: Non-toxic, No Acute Distress - Head Exam Head Exam: ATRAUMATIC, NORMAL INSPECTION, NORMOCEPHALIC - Eye Exam Eye Exam: EOMI, Normal appearance, PERRL - ENT Exam ENT Exam: Mucous Membranes Dry - Neck Exam Neck exam: Positive for: Normal Inspection. Negative for: Lymphadenopathy - Respiratory Exam Respiratory Exam: Clear to Auscultation Bilateral, NORMAL BREATHING PATTERN. absent: Rales, Rhonchi, Wheezes - Cardiovascular Exam Cardiovascular Exam: RRR. absent: +S1, +S2 - GI/Abdominal Exam GI & Abdominal Exam: Guarding, Normal Bowel Sounds, Tenderness (Tenderness to light palpation of the lower left and right quadrants). absent: Distended Results - Vital Signs Recent Vital Signs: Last Vital Signs Temp 98.2 F 02/07/17 12:47 Pulse 79 02/07/17 15:30 Resp 18 02/07/17 15:30 BP 130/68 02/07/17 15:30 Pulse Ox 96 02/07/17 15:30 - Labs Result Diagrams: 02/07/17 14:20 02/07/17 14:20 Labs: Laboratory Results - last 24 hr 02/07/17 02/07/17 02/07/17 14:15 14:20 14:23 WBC 8.1 D RBC 3.46 L Hgb 12.5 L Hct 35.8 L MCV 103.5 MCH 36.1 H MCHC 34.9 RDW 13.5 Plt Count 216 MPV 9.1 Gran % 62.5 Lymph % (Auto) 28.0 [place] % (Auto) 8.3 H Eos % (Auto) 0.5 L Baso % (Auto) 0.7 Gran # 5.03 Lymph # 2.3 [place] # 0.7 H Eos # 0.0 Baso # 0.06 PT 12.8 H INR 1.19 H APTT 27.8 pO2 36 VBG pH 7.36 VBG pCO2 53.0 VBG HCO3 29.9 H VBG Total CO2 31.5 H VBG O2 Sat (Calc) 62.5 VBG Base Excess 3.2 H VBG Potassium 3.7 Sodium 139 Chloride 99 Glucose 72 L Lactate 2.8 H FiO2 21.0 Potassium 3.9 Carbon Dioxide 27 Anion Gap 17 BUN 7 Creatinine 0.6 Est GFR ( Amer) > 60 Est GFR (Non-Af Amer) > 60 Random Glucose 75 Calcium 9.5 Total Bilirubin 0.6 AST 232 H ALT 73 H Alkaline Phosphatase 344 H Total Protein 8.8 H Albumin 4.1 Globulin 4.7 Albumin/Globulin Ratio 0.9 L Lipase 199 Venous Blood Potassium 3.7 Urine Color Yellow Urine Appearance Clear Urine pH 6.5 Ur Specific [place] <= 1.005 Urine Protein Negative Urine Glucose (UA) Negative Urine Ketones Negative Urine Blood Negative Urine Nitrate Negative Urine Bilirubin Negative Urine Urobilinogen 0.2 Ur Leukocyte Esterase Negative Alcohol, Quantitative 353 H* Blood Type A POSITIVE Blood Type Confirm Antibody Screen Negative BBK History Checked No verified bt 02/07/17 15:34 WBC RBC Hgb Hct MCV MCH MCHC RDW Plt Count MPV Gran % Lymph % (Auto) [place] % (Auto) Eos % (Auto) Baso % (Auto) Gran # Lymph # [place] # Eos # Baso # PT INR APTT pO2 VBG pH VBG pCO2 VBG HCO3 VBG Total CO2 VBG O2 Sat (Calc) VBG Base Excess VBG Potassium Sodium Chloride Glucose Lactate FiO2 Potassium Carbon Dioxide Anion Gap BUN Creatinine Est GFR ( Amer) Est GFR (Non-Af Amer) Random Glucose Calcium Total Bilirubin AST ALT Alkaline Phosphatase Total Protein Albumin Globulin Albumin/Globulin Ratio Lipase Venous Blood Potassium Urine Color Urine Appearance Urine pH Ur Specific [place] Urine Protein Urine Glucose (UA) Urine Ketones Urine Blood Urine Nitrate Urine Bilirubin Urine Urobilinogen Ur Leukocyte Esterase Alcohol, Quantitative Blood Type Blood Type Confirm A POSITIVE Antibody Screen BBK History Checked Assessment & Plan - Assessment and Plan (Free Text) Plan: 46 y/o M with PMH of alcohol abuse and suicidal ideation presents to the ED for 1 day hx of severe abdominal pain. Pt found to have blood alcohol of 353 in the ED. Pt also has transaminitis and has been worked up for hepatitis in the past, which was negative. Pt also with hx of GI bleed and left AMA before EGD was able to be completed. Pt will be admitted for abdominal pain and alcohol intoxication. 1. Abdominal pain - Tramadol for pain - NPO - GI consult, Dr. Hickey - Abdominal US from recent ED visit shows fatty liver with 9 mm echogenic lesion in the right hepatic lobe - Will consider CT abdomen/pelvis if pain worsens 2. Alcohol intoxication - Banana bag - Ativan - Librium - Thiamine - Folic acid - CIWA protocol - Monitor for withdrawal 3. PPX - Zofran - Protonix Seen, reviewed, and discussed with attending. Shayna, PGY-1 <Ananya PERERA,Priyank - Last Filed: 02/08/17 16:58> Results - Vital Signs Recent Vital Signs: Last Vital Signs Temp 97 F L 02/08/17 16:00 Pulse 101 H 02/08/17 16:00 Resp 20 02/08/17 16:00 BP 159/97 H 02/08/17 16:00 Pulse Ox 98 02/08/17 16:00 - Labs Result Diagrams: 02/08/17 06:30 02/08/17 06:30 Labs: Laboratory Results - last 24 hr 02/07/17 02/07/17 02/08/17 18:53 23:10 02:44 WBC RBC Hgb Hct MCV MCH MCHC RDW Plt Count MPV pO2 72 H 69 H 60 H VBG pH 7.41 7.42 7.43 VBG pCO2 41.0 41.0 40.0 VBG HCO3 26.0 26.6 26.5 VBG Total CO2 27.3 27.9 27.7 VBG O2 Sat (Calc) 94.8 H 94.2 H 95.1 H VBG Base Excess 1.2 1.9 2.0 VBG Potassium 3.8 3.8 3.6 Sodium 141.0 139.0 138.0 Chloride 107.0 106.0 105.0 Glucose 84 79 76 Lactate 2.3 H 2.5 H 2.3 H FiO2 21.0 21.0 21.0 Potassium Carbon Dioxide Anion Gap BUN Creatinine Est GFR ( Amer) Est GFR (Non-Af Amer) Random Glucose Calcium Total Bilirubin AST ALT Alkaline Phosphatase Total Protein Albumin Globulin Albumin/Globulin Ratio Venous Blood Potassium 3.8 3.8 3.6 02/08/17 06:30 WBC 5.2 D RBC 3.22 L Hgb 11.5 L Hct 33.2 L MCV 103.1 MCH 35.7 H MCHC 34.6 RDW 13.4 Plt Count 158 MPV 9.3 pO2 VBG pH VBG pCO2 VBG HCO3 VBG Total CO2 VBG O2 Sat (Calc) VBG Base Excess VBG Potassium Sodium 135 Chloride 101 Glucose Lactate FiO2 Potassium 4.0 Carbon Dioxide 24 Anion Gap 14 BUN 6 L Creatinine 0.6 Est GFR ( Amer) > 60 Est GFR (Non-Af Amer) > 60 Random Glucose 78 Calcium 8.5 Total Bilirubin 0.9 AST 261 H ALT 70 H Alkaline Phosphatase 299 H Total Protein 7.7 Albumin 3.3 Globulin 4.4 Albumin/Globulin Ratio 0.8 L Venous Blood Potassium Attending/Attestation - Attestation I have personally seen and examined this patient.: Yes I have fully participated in the care of the patient.: Yes I have reviewed all pertinent clinical information: Yes Notes (Text): Patient was seen and examined with medical equipment sales .Agreed with resident assessment and plan. 46 yrs old male with PMH of alcohol abuse,chronic abdominal pain due to Hepatomegaly, anemia is admitted with alcohol intoxication and worsening of abdominal pain.Patient hemoglobin is stable since last admission nd is at base line.There is no history of hemetemsis or melena.We will admit him in the hospital, watch for alcohol withdrawal.He has chronically elevated LFT which are at base line. The issue of chronic alcohol abuse was discussed in detail with patient. Prognosis is guarded. Management plan was discussed in detail with patient Education was provided.
[2017-02-07] MEDS ORDERED: Folic Acid 1 MG, Thiamine 100 MG, Multivitamin (MVI) 10 ML in Dextrose 5% In Water 1,00... IV SCH (17:00)
[2017-02-07 19:05] LABS: VENOUS BLOOD GAS BASE EXCESS 1.2 mmol/L (0.0-2.0); VENOUS BLOOD PH 7.41 (7.32-7.43)
[2017-02-07 20:26] VITALS: BMI 21.4
[2017-02-07] MEDS ORDERED: Pneumococcal 23-Valent Vaccine IM ONE (20:26)
[2017-02-07] MEDS ORDERED: Influenza Vaccine 45 MCG/0.5 ml IM ONE (20:26)
[2017-02-07 23:24] LABS: VENOUS BLOOD GAS BASE EXCESS 1.9 mmol/L (0.0-2.0); VENOUS BLOOD PH 7.42 (7.32-7.43)
--- NOTE | 2017-02-08 00:22 | CP.PCM.PN ---
<Chelsey Barnard - Last Filed: 02/08/17 00:32> Subjective - Date & Time of Evaluation Date of Evaluation: 02/08/17 Time of Evaluation: 00:20 - Subjective Subjective: Night call CC: Lactate 2.3 --> 2.5 Pt seen and examined. Pt states that he felt fever and chills. New rash on dorsal hand and suprapubic area. RLQ and LLQ abdominal pain. No N/V at this moment. T 99.1 rectal 116/77 P 86 95% RA Objective - Vital Signs/Intake and Output Vital Signs (last 24 hours): Temp Pulse Resp BP Pulse Ox 98.2 F 87 18 128/64 96 02/07/17 19:47 02/07/17 19:47 02/07/17 19:47 02/07/17 19:47 02/07/17 17:06 Intake and Output: 02/07/17 02/08/17 18:59 06:59 Intake Total 640 Output Total 600 Balance 40 - Medications Medications: Current Medications Chlordiazepoxide (Librium) 25 mg PO Q8 [facility] PRN Reason: Protocol Last Admin: 02/07/17 23:21 Dose: 25 mg Folic Acid (Folic Acid) 1 mg PO DAILY [facility] Folic Acid 1 mg/ Thiamine HCl 100 mg/ Multivitamins/Vitamin C 10 ml/ Dextrose 1 ,011.2 mls @ 100 mls/hr IV .[id number] [facility] Last Admin: 02/07/17 17:21 Dose: 100 mls/hr Lorazepam (Ativan) 2 mg IVP Q6H PRN; Protocol PRN Reason: Anxiety Ondansetron HCl (Zofran Inj) 4 mg IVP Q4H PRN PRN Reason: Nausea/Vomiting Pantoprazole Sodium (Protonix Inj) 40 mg IVP DAILY [facility] Thiamine HCl (Vitamin B1 Tab) 50 mg PO DAILY [facility] Tramadol HCl (Ultram) 50 mg PO TID [facility] - Labs Labs: PT 12.8 Seconds (9.9-11.8) H 02/07/17 14:20 INR 1.19 (0.93-1.08) H 02/07/17 14:20 APTT 27.8 Seconds (23.7-30.8) 02/07/17 14:20 - Constitutional Appears: No Acute Distress - Head Exam Head Exam: ATRAUMATIC, NORMOCEPHALIC - Eye Exam Eye Exam: EOMI, Normal appearance - ENT Exam ENT Exam: Mucous Membranes Moist - Neck Exam Neck Exam: absent: Meningismus - Respiratory Exam Respiratory Exam: Clear to Ausculation Bilateral, NORMAL BREATHING PATTERN. absent: Rales, Rhonchi, Wheezes - Cardiovascular Exam Cardiovascular Exam: REGULAR RHYTHM, +S1, +S2. absent: Murmur - GI/Abdominal Exam GI & Abdominal Exam: Soft, Tenderness (Nodule on L lower rib 10. where pt states that he broke it before.), Normal Bowel Sounds - Back Exam Back Exam: absent: CVA tenderness (L), CVA tenderness (R) - Neurological Exam Neurological Exam: Alert, Awake, Oriented x3 - Psychiatric Exam Psychiatric exam: Normal Affect, Normal Mood - Skin Skin Exam: Dry, Normal Color, Rash Assessment and Plan - Assessment and Plan (Free Text) Plan: Mild fever Increased lactate at 2.5 Rash on dorsal hand/suprapubic area - likely ezcema SIRS x 1 - reactive to etoh withdrawal and autonomic instability - infectious? blood culture, urine culture - Add NS @ 80 on top of banana bag at 50 - blood culture, urine culture - observe off antibiotics <Trent Silver - Last Filed: 02/08/17 02:44> Objective - Vital Signs/Intake and Output Vital Signs (last 24 hours): Temp Pulse Resp BP Pulse Ox 99.1 F 89 20 116/77 95 02/08/17 00:00 02/08/17 02:00 02/08/17 00:00 02/08/17 00:00 02/08/17 00:00 Intake and Output: 02/07/17 02/08/17 18:59 06:59 Intake Total 640 Output Total 600 Balance 40 - Medications Medications: Current Medications Chlordiazepoxide (Librium) 25 mg PO Q8 [facility] PRN Reason: Protocol Last Admin: 02/07/17 23:21 Dose: 25 mg Folic Acid (Folic Acid) 1 mg PO DAILY [facility] Folic Acid 1 mg/ Thiamine HCl 100 mg/ Multivitamins/Vitamin C 10 ml/ Dextrose 1 ,011.2 mls @ 50 mls/hr IV .[id number] [facility] Stop: 02/08/17 10:00 Sodium Chloride (Sodium Chloride 0.9%) 1,000 mls @ 80 mls/hr IV .[id number] [facility] Last Admin: 02/08/17 01:00 Dose: 80 mls/hr Lorazepam (Ativan) 2 mg IVP Q6H PRN; Protocol PRN Reason: Anxiety Ondansetron HCl (Zofran Inj) 4 mg IVP Q4H PRN PRN Reason: Nausea/Vomiting Pantoprazole Sodium (Protonix Inj) 40 mg IVP DAILY [facility] Thiamine HCl (Vitamin B1 Tab) 50 mg PO DAILY [facility] Tramadol HCl (Ultram) 50 mg PO TID [facility] - Labs Labs: PT 12.8 Seconds (9.9-11.8) H 02/07/17 14:20 INR 1.19 (0.93-1.08) H 02/07/17 14:20 APTT 27.8 Seconds (23.7-30.8) 02/07/17 14:20 Attending/Attestation - Attestation I have personally seen and examined this patient.: No I have fully participated in the care of the patient.: Yes I have reviewed all pertinent clinical information, including history, physical exam and plan: Yes
[2017-02-08] MEDS: Sodium Chloride 0.9% 1,000 ML IV SCH (01:00)
[2017-02-08 03:01] LABS: VENOUS BLOOD PH 7.43 (7.32-7.43)
[2017-02-08] MEDS: Folic Acid 1 MG, Thiamine 100 MG, Multivitamin (MVI) 10 ML in Dextrose 5% In Water 1,00... IV SCH (03:21)
[2017-02-08 07:09] LABS: HEMATOCRIT 33.2 % (42.0-52.0); MEAN CELL VOLUME 103.1 fL (80.0-105.0); MEAN CORPUSCULAR HEMOGLOBIN 35.7 pg (25.0-35.0); MEAN CORPUSCULAR HGB CONC 34.6 g/dl (31.0-37.0); MEAN PLATELET VOLUME 9.3 fl (7.0-11.0); RED CELL DISTRIBUTION WIDTH 13.4 % (11.5-14.5); WHITE BLOOD COUNT 5.2 [, 10^3/ul] (4.5-11.0)
[2017-02-08 07:45] LABS: ALB/GLOB RATIO 0.8 (1.1-1.8); ALKALINE PHOSPHATASE 299 U/L (38-133); ALT/SGPT 70 U/L (7-56); AST/SGOT 261 U/L (15-59); BILIRUBIN,TOTAL 0.9 mg/dL (0.2-1.3); BLOOD UREA NITROGEN 6 mg/dL (7-21); CALCIUM 8.5 mg/dL (8.4-10.5); CARBON DIOXIDE 24 mmol/L (21-33); CHLORIDE 101 mmol/L (98-107); GFR AFRICAN-AMERICAN > 60; GLUCOSE,RANDOM 78 mg/dL (70-110); SODIUM 135 mmol/L (132-148); TOTAL PROTEIN 7.7 g/dL (5.8-8.3)
--- NOTE | 2017-02-08 13:34 | CP.PCM.PN ---
<Carlos Corral - Last Filed: 02/08/17 13:31> Subjective - Date & Time of Evaluation Date of Evaluation: 02/08/17 Time of Evaluation: 13:31 - Subjective Subjective: Pt seen and examined at bedside. Pt was found to have elevated lactate overnight. Pt had urine and blood cultures drawn. Pt still complains of abdominal pain in lower quadrants, but much improved from the previous day. Denies CP, SOB, N/V/D. Objective - Vital Signs/Intake and Output Vital Signs (last 24 hours): Temp Pulse Resp BP Pulse Ox 99.1 F 86 20 116/77 95 02/08/17 00:00 02/08/17 06:00 02/08/17 00:00 02/08/17 00:00 02/08/17 00:00 Intake and Output: 02/08/17 02/08/17 06:59 18:59 Intake Total 2040 Output Total 600 Balance 1440 - Medications Medications: Current Medications Chlordiazepoxide (Librium) 25 mg PO Q8 [facility] PRN Reason: Protocol Last Admin: 02/08/17 13:13 Dose: 25 mg Folic Acid (Folic Acid) 1 mg PO DAILY [facility] Last Admin: 02/08/17 10:28 Dose: 1 mg Sodium Chloride (Sodium Chloride 0.9%) 1,000 mls @ 80 mls/hr IV .[id number] [facility] Last Admin: 02/08/17 01:00 Dose: 80 mls/hr Lorazepam (Ativan) 2 mg IVP Q6H PRN; Protocol PRN Reason: Anxiety Ondansetron HCl (Zofran Inj) 4 mg IVP Q4H PRN PRN Reason: Nausea/Vomiting Pantoprazole Sodium (Protonix Inj) 40 mg IVP DAILY [facility] Last Admin: 02/08/17 10:28 Dose: 40 mg Thiamine HCl (Vitamin B1 Tab) 50 mg PO DAILY [facility] Last Admin: 02/08/17 10:29 Dose: 50 mg Tramadol HCl (Ultram) 50 mg PO TID [facility] Last Admin: 02/08/17 13:14 Dose: 50 mg - Labs Labs: 02/08/17 06:30 02/08/17 06:30 PT 12.8 Seconds (9.9-11.8) H 02/07/17 14:20 INR 1.19 (0.93-1.08) H 02/07/17 14:20 APTT 27.8 Seconds (23.7-30.8) 02/07/17 14:20 - Constitutional Appears: Well, No Acute Distress - Head Exam Head Exam: ATRAUMATIC, NORMAL INSPECTION, NORMOCEPHALIC - Respiratory Exam Respiratory Exam: Clear to Ausculation Bilateral, NORMAL BREATHING PATTERN. absent: Rhonchi, Wheezes - Cardiovascular Exam Cardiovascular Exam: RRR, +S1, +S2 - GI/Abdominal Exam GI & Abdominal Exam: Soft, Tenderness (Lower right and left abdominal quadrants) , Normal Bowel Sounds. absent: Distended, Guarding - Extremities Exam Extremities Exam: Normal Inspection. absent: Calf Tenderness, Pedal Edema - Neurological Exam Neurological Exam: Alert, Awake, Oriented x3 Additional comments: Baseline tremor - Psychiatric Exam Psychiatric exam: Normal Affect, Normal Mood - Skin Skin Exam: Intact, Normal Color, Warm Assessment and Plan - Assessment and Plan (Free Text) Plan: 46 y/o M with PMH of alcohol abuse and suicidal ideation presents to the ED for 1 day hx of severe abdominal pain. Pt much improved today, no significant signs of withdrawal. Transaminitis stable, secondary to alcohol use. Pt counseled on alcohol cessation. 1. Abdominal pain - Tramadol for pain - NPO - GI consulted, Dr. Hickey - Abdominal US from recent ED visit shows fatty liver with 9 mm echogenic lesion in the right hepatic lobe - Will consider CT abdomen/pelvis if pain worsens 2. Alcohol intoxication - Banana bag - Ativan - Librium - Thiamine - Folic acid - CIWA protocol - Monitor for withdrawal 3. Transaminitis - Stable, secondary to alcohol use 4. Alcohol abuse - Counseled on alcohol cessation, benefits and complications discussed. 5. PPX - Zofran - Protonix Seen, reviewed, and discussed with attending. Shayna, PGY-1 <Ananya PERERA,Priyank - Last Filed: 02/09/17 13:42> Objective - Vital Signs/Intake and Output Vital Signs (last 24 hours): Temp Pulse Resp BP Pulse Ox 98.3 F 77 19 136/85 96 02/09/17 07:59 02/09/17 10:00 02/09/17 07:59 02/09/17 07:59 02/09/17 07:59 Intake and Output: 02/09/17 02/09/17 06:59 18:59 Intake Total 1720 Balance 1720 - Medications Medications: Current Medications Chlordiazepoxide (Librium) 25 mg PO Q8 [facility] PRN Reason: Protocol Last Admin: 02/09/17 05:23 Dose: 25 mg Folic Acid (Folic Acid) 1 mg PO DAILY [facility] Last Admin: 02/09/17 10:05 Dose: 1 mg Lorazepam (Ativan) 2 mg IVP Q6H PRN; Protocol PRN Reason: Anxiety Ondansetron HCl (Zofran Inj) 4 mg IVP Q4H PRN PRN Reason: Nausea/Vomiting Pantoprazole Sodium (Protonix Inj) 40 mg IVP DAILY [facility] Last Admin: 02/09/17 10:04 Dose: 40 mg Thiamine HCl (Vitamin B1 Tab) 50 mg PO DAILY [facility] Last Admin: 02/09/17 10:04 Dose: 50 mg Tramadol HCl (Ultram) 50 mg PO TID [facility] Last Admin: 02/09/17 10:05 Dose: 50 mg - Labs Labs: 02/09/17 06:40 02/09/17 06:40 PT 12.8 Seconds (9.9-11.8) H 02/07/17 14:20 INR 1.19 (0.93-1.08) H 02/07/17 14:20 APTT 27.8 Seconds (23.7-30.8) 02/07/17 14:20 Attending/Attestation - Attestation I have personally seen and examined this patient.: Yes I have fully participated in the care of the patient.: Yes I have reviewed all pertinent clinical information, including history, physical exam and plan: Yes Notes (Text): Patient was seen and examined with certified medical dosimetrist .Agreed with resident assessment and plan. 46 yrs old male with PMH of alcohol abuse, chronic right upper quadrant abdominal pain due to enlarged liver, patient abdomnal pain is at base line , did get worse due to ongoing alcohol abuse, it was discussed in detail with him. Management plan was discussed in detail with patient Education was provided.
[2017-02-09 07:20] LABS: HEMATOCRIT 31.5 % (42.0-52.0); MEAN CELL VOLUME 103.3 fL (80.0-105.0); MEAN CORPUSCULAR HEMOGLOBIN 34.8 pg (25.0-35.0); MEAN CORPUSCULAR HGB CONC 33.7 g/dl (31.0-37.0); MEAN PLATELET VOLUME 9.8 fl (7.0-11.0); RED CELL DISTRIBUTION WIDTH 13.2 % (11.5-14.5); WHITE BLOOD COUNT 4.4 [, 10^3/ul] (4.5-11.0)
[2017-02-09 07:39] LABS: ALB/GLOB RATIO 0.8 (1.1-1.8); ALKALINE PHOSPHATASE 286 U/L (38-133); ALT/SGPT 70 U/L (7-56); AST/SGOT 226 U/L (15-59); BILIRUBIN,TOTAL 1.3 mg/dL (0.2-1.3); BLOOD UREA NITROGEN 3 mg/dL (7-21); CARBON DIOXIDE 28 mmol/L (21-33); CHLORIDE 97 mmol/L (98-107); GFR AFRICAN-AMERICAN > 60; GLUCOSE,RANDOM 91 mg/dL (70-110); POTASSIUM 3.5 mmol/L (3.6-5.0); SODIUM 136 mmol/L (132-148); TOTAL PROTEIN 8.2 g/dL (5.8-8.3)
[2017-02-09] MEDS: Sodium Chloride 0.9% 1,000 ML IV SCH (10:18)
[2017-02-09] MEDS: Folic Acid 1 MG, Thiamine 100 MG, Multivitamin (MVI) 10 ML in Dextrose 5% In Water 1,00... IV SCH (10:19)
--- NOTE | 2017-02-09 14:04 | CP.PCM.PN ---
Subjective - Date & Time of Evaluation Date of Evaluation: 02/09/17 Time of Evaluation: 10:20 - Subjective Subjective: Patient was seen and examined with medical affairs director . Patient is feeling better, abdominal pain is better, LFT are coming down He denies any chest pain, palpitation or dyspnea Objective - Vital Signs/Intake and Output Vital Signs (last 24 hours): Temp Pulse Resp BP Pulse Ox 98.3 F 77 19 136/85 96 02/09/17 07:59 02/09/17 10:00 02/09/17 07:59 02/09/17 07:59 02/09/17 07:59 Intake and Output: 02/09/17 02/09/17 06:59 18:59 Intake Total 1720 Balance 1720 - Medications Medications: Current Medications Chlordiazepoxide (Librium) 25 mg PO Q8 [facility] PRN Reason: Protocol Last Admin: 02/09/17 05:23 Dose: 25 mg Folic Acid (Folic Acid) 1 mg PO DAILY [facility] Last Admin: 02/09/17 10:05 Dose: 1 mg Lorazepam (Ativan) 2 mg IVP Q6H PRN; Protocol PRN Reason: Anxiety Ondansetron HCl (Zofran Inj) 4 mg IVP Q4H PRN PRN Reason: Nausea/Vomiting Pantoprazole Sodium (Protonix Inj) 40 mg IVP DAILY [facility] Last Admin: 02/09/17 10:04 Dose: 40 mg Thiamine HCl (Vitamin B1 Tab) 50 mg PO DAILY [facility] Last Admin: 02/09/17 10:04 Dose: 50 mg Tramadol HCl (Ultram) 50 mg PO TID [facility] Last Admin: 02/09/17 10:05 Dose: 50 mg - Labs Labs: 02/09/17 06:40 02/09/17 06:40 PT 12.8 Seconds (9.9-11.8) H 02/07/17 14:20 INR 1.19 (0.93-1.08) H 02/07/17 14:20 APTT 27.8 Seconds (23.7-30.8) 02/07/17 14:20 - Constitutional Appears: Non-toxic, No Acute Distress - ENT Exam ENT Exam: Normal Exam - Respiratory Exam Respiratory Exam: Clear to Ausculation Bilateral - Cardiovascular Exam Cardiovascular Exam: REGULAR RHYTHM - GI/Abdominal Exam GI & Abdominal Exam: Soft, Normal Bowel Sounds (Liver is enlarged,) Additional comments: liver is enlargement Right upper quadrant tenderness - Extremities Exam Additional comments: no cynosis or clubbing - Neurological Exam Neurological Exam: Alert, Awake (non focal) Assessment and Plan - Assessment and Plan (Free Text) Assessment: 46 yrs M with PMH of alcohol abuse , history of multiple admission to the hospital for alcohol intoxication and abdominal pain was admitted with alcohol intoxication and right upper quadrant chronic abdominal pain 1.Abdominal pain Pain is better, close to base line Tramadol for pain Patient is tolerating diet without any issue - 2. Alcohol Withdrawal - improving, will stop IV fluid - continue Thiamine, Folic acid and CIWA protocol to monitor for withdrawal 3. Transaminitis - secondary to alcohol use, improving 4.Hepatic lesion on right upper quadrant USG was noted in last USG, but CT scan of abdomen and Pelvis was unremarkable. 5.Anemia Hemoglobin is stable, no evidence of GI bleeding, will need out patient work up The issue of ongoing alcohol abuse was discussed in detail with patient. Education was provided. Prognosis is poor due to non compliance
[2017-02-10 06:41] LABS: HEMATOCRIT 34.1 % (42.0-52.0); MEAN CELL VOLUME 104.9 fL (80.0-105.0); MEAN CORPUSCULAR HEMOGLOBIN 35.4 pg (25.0-35.0); MEAN CORPUSCULAR HGB CONC 33.7 g/dl (31.0-37.0); RED CELL DISTRIBUTION WIDTH 13.1 % (11.5-14.5); WHITE BLOOD COUNT 4.8 [, 10^3/ul] (4.5-11.0)
[2017-02-10 06:57] LABS: ALB/GLOB RATIO 0.8 (1.1-1.8); ALKALINE PHOSPHATASE 309 U/L (38-133); ALT/SGPT 73 U/L (7-56); AST/SGOT 203 U/L (15-59); BILIRUBIN,TOTAL 1.1 mg/dL (0.2-1.3); BLOOD UREA NITROGEN 6 mg/dL (7-21); CALCIUM 9.7 mg/dL (8.4-10.5); CARBON DIOXIDE 28 mmol/L (21-33); CHLORIDE 96 mmol/L (98-107); GFR AFRICAN-AMERICAN > 60; GLUCOSE,RANDOM 100 mg/dL (70-110); POTASSIUM 3.6 mmol/L (3.6-5.0); SODIUM 134 mmol/L (132-148); TOTAL PROTEIN 8.5 g/dL (5.8-8.3)
--- NOTE | 2017-02-10 07:24 | CP.PCM.DIS ---
<Carlos Corral - Last Filed: 02/10/17 12:11> Provider - Provider Date of Admission: 02/07/17 15:50 Attending physician: Priyank Hare MD Primary care physician: NO PRIMARY CARE PROVIDER Time Spent in preparation of Discharge (in minutes): 45 Diagnosis - Discharge Diagnosis (1) Guaiac positive stools Status: Chronic Priority: Medium (2) Gastritis Status: Chronic Priority: Medium (3) Alcohol abuse Status: Chronic Priority: Medium (4) Alcohol intoxication Status: Resolved Priority: Low (5) Homeless Status: Chronic Priority: Medium Hospital Course - Lab Results Lab Results: Micro Results 02/08/17 06:58 Urine Urine Culture - Final No Growth (<1,000 CFU/ML) 02/08/17 07:15 Blood-Venous Blood Culture - Preliminary NO GROWTH AFTER 24 HOURS 02/08/17 07:00 Blood-Venous Blood Culture - Preliminary NO GROWTH AFTER 24 HOURS Most Recent Lab Values WBC 4.8 10^3/ul (4.5-11.0) 02/10/17 06:00 RBC 3.25 10^6/uL (3.5-6.1) L 02/10/17 06:00 Hgb 11.5 gm/dL (14.0-18.0) L 02/10/17 06:00 Hct 34.1 % (42.0-52.0) L 02/10/17 06:00 MCV 104.9 fL (80.0-105.0) 02/10/17 06:00 MCH 35.4 pg (25.0-35.0) H 02/10/17 06:00 MCHC 33.7 g/dl (31.0-37.0) 02/10/17 06:00 RDW 13.1 % (11.5-14.5) 02/10/17 06:00 Plt Count 123 10^3/uL (120.0-450.0) 02/10/17 06:00 MPV 10.0 fl (7.0-11.0) 02/10/17 06:00 Gran % 62.5 % (50.0-68.0) 02/07/17 14:20 Lymph % (Auto) 28.0 % (22.0-35.0) 02/07/17 14:20 [place] % (Auto) 8.3 % (1.0-6.0) H 02/07/17 14:20 Eos % (Auto) 0.5 % (1.5-5.0) L 02/07/17 14:20 Baso % (Auto) 0.7 % (0.0-3.0) 02/07/17 14:20 Gran # 5.03 (1.4-6.5) 02/07/17 14:20 Lymph # 2.3 (1.2-3.4) 02/07/17 14:20 [place] # 0.7 (0.1-0.6) H 02/07/17 14:20 Eos # 0.0 (0.0-0.7) 02/07/17 14:20 Baso # 0.06 K/mm3 (0.0-2.0) 02/07/17 14:20 PT 12.8 Seconds (9.9-11.8) H 02/07/17 14:20 INR 1.19 (0.93-1.08) H 02/07/17 14:20 APTT 27.8 Seconds (23.7-30.8) 02/07/17 14:20 pO2 60 mm/Hg (30-55) H 02/08/17 02:44 VBG pH 7.43 (7.32-7.43) 02/08/17 02:44 VBG pCO2 40.0 (40-60) 02/08/17 02:44 VBG HCO3 26.5 mmol/l (21-28) 02/08/17 02:44 VBG Total CO2 27.7 mmol.L (22-28) 02/08/17 02:44 VBG O2 Sat (Calc) 95.1 % (40-65) H 02/08/17 02:44 VBG Base Excess 2.0 mmol/L (0.0-2.0) 02/08/17 02:44 VBG Potassium 3.6 mmol/L (3.6-5.2) 02/08/17 02:44 Sodium 138.0 mmol/L (132-148) 02/08/17 02:44 Chloride 105.0 mmol/L (98-107) 02/08/17 02:44 Glucose 76 mg/dl (75-110) 02/08/17 02:44 Lactate 2.3 mmol/L (0.7-2.1) H 02/08/17 02:44 FiO2 21.0 % 02/08/17 02:44 Sodium 136 mmol/L (132-148) 02/09/17 06:40 Potassium 3.5 mmol/L (3.6-5.0) L 02/09/17 06:40 Chloride 97 mmol/L (98-107) L 02/09/17 06:40 Carbon Dioxide 28 mmol/L (21-33) 02/09/17 06:40 Anion Gap 15 (10-20) 02/09/17 06:40 BUN 3 mg/dL (7-21) L 02/09/17 06:40 Creatinine 0.6 mg/dL (0.5-1.4) 02/09/17 06:40 Est GFR ( Amer) > 60 02/09/17 06:40 Est GFR (Non-Af Amer) > 60 02/09/17 06:40 Random Glucose 91 mg/dL (70-110) 02/09/17 06:40 Calcium 9.0 mg/dL (8.4-10.5) 02/09/17 06:40 Total Bilirubin 1.3 mg/dL (0.2-1.3) 02/09/17 06:40 AST 226 U/L (15-59) H 02/09/17 06:40 ALT 70 U/L (7-56) H 02/09/17 06:40 Alkaline Phosphatase 286 U/L (38-133) H 02/09/17 06:40 Total Protein 8.2 g/dL (5.8-8.3) 02/09/17 06:40 Albumin 3.7 g/dL (3.0-4.8) 02/09/17 06:40 Globulin 4.5 gm/dL 02/09/17 06:40 Albumin/Globulin Ratio 0.8 (1.1-1.8) L 02/09/17 06:40 Lipase 199 U/L (23-300) 02/07/17 14:20 Venous Blood Potassium 3.6 mmol/L (3.6-5.2) 02/08/17 02:44 Urine Color Yellow (YELLOW) 02/07/17 14:15 Urine Appearance Clear (CLEAR) 02/07/17 14:15 Urine pH 6.5 (4.7-8.0) 02/07/17 14:15 Ur Specific [place] <= 1.005 (1.005-1.035) 02/07/17 14:15 Urine Protein Negative mg/dL (<30 mg/dL) 02/07/17 14:15 Urine Glucose (UA) Negative mg/dL (NEGATIVE) 02/07/17 14:15 Urine Ketones Negative mg/dL (NEGATIVE) 02/07/17 14:15 Urine Blood Negative (NEGATIVE) 02/07/17 14:15 Urine Nitrate Negative (NEGATIVE) 02/07/17 14:15 Urine Bilirubin Negative (NEGATIVE) 02/07/17 14:15 Urine Urobilinogen 0.2 E.U./dL (<1 E.U./dL) 02/07/17 14:15 Ur Leukocyte Esterase Negative Ty/uL (NEGATIVE) 02/07/17 14:15 Alcohol, Quantitative 353 mg/dL (0-10) H* 02/07/17 14:20 Blood Type A POSITIVE 02/07/17 14:23 Blood Type Confirm A POSITIVE 02/07/17 15:34 Antibody Screen Negative 02/07/17 14:23 BBK History Checked No verified bt 02/07/17 14:23 - Hospital Course Hospital Course: 46 y/o M with PMH of alcohol abuse and suicidal ideation presents to the ED for 1 day hx of severe abdominal pain. Pt states he had sudden onset of abdominal pain yesterday morning. Pt rates the pain as 10/10 and is located in his lower abdomen. Pain is nonradiating. Pain is constant and he has not taken any medication for relief. Pt also admits to having bloody episodes of emesis and bloody bowel movements. Pt is also complaining of slight chest pain that is worse with palpation. Chest pain is nonradiating, rated a 10/10 as well. Pt was scheduled for an EGD in the past but left AMA. Pt has been seen in the ED many times in the past for similar complaints. Pt seen for abdominal pain that resolved with protonix and alcohol cessation. Pt was also given librium and ativan prn for alcohol withdrawal while in the hospital as pt had elevated BAL on admission. Pt had diet advanced slowly and was discharged. Pt is homeless. Pt encouraged to stop drinking alcohol as it will exacerbate abdominal pain that he has. Pt left AMA. All appropriate forms were filled out. Pt was informed of the benefits of staying and complications of leaving AMA. Discharge Exam - Head Exam Head Exam: ATRAUMATIC, NORMAL INSPECTION, NORMOCEPHALIC - ENT Exam ENT Exam: Mucous Membranes Moist, Normal Exam - Respiratory Exam Respiratory Exam: NORMAL BREATHING PATTERN, UNREMARKABLE - Cardiovascular Exam Cardiovascular Exam: RRR, +S1, +S2 - GI/Abdominal Exam GI & Abdominal Exam: Normal Bowel Sounds, Organomegaly (Hepatomegaly), Soft, Tenderness (Lower abdominal quadrants) - Neurological Exam Neurological exam: Alert, Oriented x3 - Psychiatric Exam Psychiatric exam: Normal Affect, Normal Mood - Skin Skin Exam: Intact, Normal Color, Warm Discharge Plan - Follow Up Plan Condition: FAIR Disposition: AGAINST MEDICAL ADVICE Instructions: Acute Abdominal Pain (DC), Acute Abdominal Pain (GEN) Additional Instructions: Stop alcohol use. Return to hospital is symptoms become exacerbated. Referrals: PCP,CEFERINO [Primary Care Provider] - <Priyank Hare MD - Last Filed: 02/10/17 13:48> Provider - Provider Date of Admission: 02/07/17 15:50 Attending physician: Priyank Hare MD Primary care physician: CEFERINO PRIMARY CARE PROVIDER Hospital Course - Lab Results Lab Results: Micro Results 02/08/17 07:15 Blood-Venous Blood Culture - Preliminary NO GROWTH AFTER 48 HOURS 02/08/17 07:00 Blood-Venous Blood Culture - Preliminary NO GROWTH AFTER 48 HOURS 02/08/17 06:58 Urine Urine Culture - Final No Growth (<1,000 CFU/ML) Most Recent Lab Values WBC 4.8 10^3/ul (4.5-11.0) 02/10/17 06:00 RBC 3.25 10^6/uL (3.5-6.1) L 02/10/17 06:00 Hgb 11.5 gm/dL (14.0-18.0) L 02/10/17 06:00 Hct 34.1 % (42.0-52.0) L 02/10/17 06:00 MCV 104.9 fL (80.0-105.0) 02/10/17 06:00 MCH 35.4 pg (25.0-35.0) H 02/10/17 06:00 MCHC 33.7 g/dl (31.0-37.0) 02/10/17 06:00 RDW 13.1 % (11.5-14.5) 02/10/17 06:00 Plt Count 123 10^3/uL (120.0-450.0) 02/10/17 06:00 MPV 10.0 fl (7.0-11.0) 02/10/17 06:00 Gran % 62.5 % (50.0-68.0) 02/07/17 14:20 Lymph % (Auto) 28.0 % (22.0-35.0) 02/07/17 14:20 [place] % (Auto) 8.3 % (1.0-6.0) H 02/07/17 14:20 Eos % (Auto) 0.5 % (1.5-5.0) L 02/07/17 14:20 Baso % (Auto) 0.7 % (0.0-3.0) 02/07/17 14:20 Gran # 5.03 (1.4-6.5) 02/07/17 14:20 Lymph # 2.3 (1.2-3.4) 02/07/17 14:20 [place] # 0.7 (0.1-0.6) H 02/07/17 14:20 Eos # 0.0 (0.0-0.7) 02/07/17 14:20 Baso # 0.06 K/mm3 (0.0-2.0) 02/07/17 14:20 PT 12.8 Seconds (9.9-11.8) H 02/07/17 14:20 INR 1.19 (0.93-1.08) H 02/07/17 14:20 APTT 27.8 Seconds (23.7-30.8) 02/07/17 14:20 pO2 60 mm/Hg (30-55) H 02/08/17 02:44 VBG pH 7.43 (7.32-7.43) 02/08/17 02:44 VBG pCO2 40.0 (40-60) 02/08/17 02:44 VBG HCO3 26.5 mmol/l (21-28) 02/08/17 02:44 VBG Total CO2 27.7 mmol.L (22-28) 02/08/17 02:44 VBG O2 Sat (Calc) 95.1 % (40-65) H 02/08/17 02:44 VBG Base Excess 2.0 mmol/L (0.0-2.0) 02/08/17 02:44 VBG Potassium 3.6 mmol/L (3.6-5.2) 02/08/17 02:44 Sodium 138.0 mmol/L (132-148) 02/08/17 02:44 Chloride 105.0 mmol/L (98-107) 02/08/17 02:44 Glucose 76 mg/dl (75-110) 02/08/17 02:44 Lactate 2.3 mmol/L (0.7-2.1) H 02/08/17 02:44 FiO2 21.0 % 02/08/17 02:44 Sodium 134 mmol/L (132-148) 02/10/17 06:00 Potassium 3.6 mmol/L (3.6-5.0) 02/10/17 06:00 Chloride 96 mmol/L (98-107) L 02/10/17 06:00 Carbon Dioxide 28 mmol/L (21-33) 02/10/17 06:00 Anion Gap 14 (10-20) 02/10/17 06:00 BUN 6 mg/dL (7-21) L 02/10/17 06:00 Creatinine 0.6 mg/dL (0.5-1.4) 02/10/17 06:00 Est GFR ( Amer) > 60 02/10/17 06:00 Est GFR (Non-Af Amer) > 60 02/10/17 06:00 Random Glucose 100 mg/dL (70-110) 02/10/17 06:00 Calcium 9.7 mg/dL (8.4-10.5) 02/10/17 06:00 Total Bilirubin 1.1 mg/dL (0.2-1.3) 02/10/17 06:00 AST 203 U/L (15-59) H 02/10/17 06:00 ALT 73 U/L (7-56) H 02/10/17 06:00 Alkaline Phosphatase 309 U/L (38-133) H 02/10/17 06:00 Total Protein 8.5 g/dL (5.8-8.3) H 02/10/17 06:00 Albumin 3.9 g/dL (3.0-4.8) 02/10/17 06:00 Globulin 4.6 gm/dL 02/10/17 06:00 Albumin/Globulin Ratio 0.8 (1.1-1.8) L 02/10/17 06:00 Lipase 199 U/L (23-300) 02/07/17 14:20 Venous Blood Potassium 3.6 mmol/L (3.6-5.2) 02/08/17 02:44 Urine Color Yellow (YELLOW) 02/07/17 14:15 Urine Appearance Clear (CLEAR) 02/07/17 14:15 Urine pH 6.5 (4.7-8.0) 02/07/17 14:15 Ur Specific [place] <= 1.005 (1.005-1.035) 02/07/17 14:15 Urine Protein Negative mg/dL (<30 mg/dL) 02/07/17 14:15 Urine Glucose (UA) Negative mg/dL (NEGATIVE) 02/07/17 14:15 Urine Ketones Negative mg/dL (NEGATIVE) 02/07/17 14:15 Urine Blood Negative (NEGATIVE) 02/07/17 14:15 Urine Nitrate Negative (NEGATIVE) 02/07/17 14:15 Urine Bilirubin Negative (NEGATIVE) 02/07/17 14:15 Urine Urobilinogen 0.2 E.U./dL (<1 E.U./dL) 02/07/17 14:15 Ur Leukocyte Esterase Negative Ty/uL (NEGATIVE) 02/07/17 14:15 Alcohol, Quantitative 353 mg/dL (0-10) H* 02/07/17 14:20 Blood Type A POSITIVE 02/07/17 14:23 Blood Type Confirm A POSITIVE 02/07/17 15:34 Antibody Screen Negative 02/07/17 14:23 BBK History Checked No verified bt 02/07/17 14:23 Attending/Attestation - Attestation I have personally seen and examined this patient.: Yes I have fully participated in the care of the patient.: Yes I have reviewed all pertinent clinical information, including history, physical exam and plan: Yes Notes (Text): 46 yrs M with PMH of alcohol abuse , history of multiple admission to the hospital for alcohol intoxication and abdominal pain was admitted with alcohol intoxication and right upper quadrant chronic abdominal pain .Abdominal pain has improved.Patient pain is at base line.Hemoglobin remain stable.There was no hemetemesis or melena.Patient alcohol withdrawal were better.His Librium was discontinued today, plan was to watch for any withdrawal but patient did not want to stay in the hospital and left hospital against medical advice. Prognosis is poor due to non compliance.
[2017-02-10 07:38] VITALS: BP 111/67; PULSE 64; RESP 18; TEMP 98.1; O2SAT 97
== END 2017-02-10 11:27 | disposition left against medical advice (07) ==
LOC: ED 12:37 → ERH 15:50 → 3RNO 18:18
PROVIDERS: ADMIT Internal Medicine; ATTEND Internal Medicine
DX: K29.70 Gastritis, unspecified, without bleeding (principal); F10.129 Alcohol abuse with intoxication, unspecified; Z59.0 Homelessness; D64.9 Anemia, unspecified; R19.5 Other fecal abnormalities
CPT/HCPCS: 36415; 71010; 80053; 80320; 81003; 82803; 83690; 85025; 85027; 85610; 85730; 86850; 86900; 87040; 87086; 96374; 99285; C9113; G0378; J3411; J7040; J7070

== ENCOUNTER 2017-02-11 12:11 | Emergency (ER) | payer MEDICAID, OTHER ==
[2017-02-11 12:11] VITALS: BMI 21.4
[2017-02-11] MEDS ORDERED: Alum-Mag Hydrox-Simethicone Susp (30 mL) PO STA (12:56)
[2017-02-11 13:03] VITALS: BP 130/71; PULSE 79; RESP 18; TEMP 98; O2SAT 98
--- NOTE | 2017-02-11 13:07 | ED PDOC ---
Arrival/HPI - General Chief Complaint: Abdominal Pain Time Seen by Provider: 02/11/17 12:33 Historian: Patient - History of Present Illness Narrative History of Present Illness (Text): 02/11/17 13:04 A 46 year old male, whose past medical history includes alcohol abuse, presents to the emergency department complaining of abdominal pain today. Patient admits to drinking alcohol today. Patient denies nay blood in stool since his last admission to the hospital. Patient denies any fever, nausea, vomiting, hematemesis, diarrhea, urinary symptoms, chest pain, shortness of breath, suicidal ideation, homicidal ideation or any other complaints. Patient is well known to emergency room for multiple visits concerning same complaint. Time/Duration: Prior to Arrival Symptom Course: Unchanged Quality: Other Context: Other Past Medical History - Provider Review Nursing Documentation Reviewed: Yes - Infectious Disease Hx of Infectious Diseases: None - Tetanus Immunization Tetanus Immunization: Up to Date - Reproductive Currently : No - Past Medical History Past Medical History: No Previous - Cardiac Hx Cardiac Disorders: Yes Hx Hypertension: Yes - Pulmonary Hx Respiratory Disorders: No - Neurological Hx Neurological Disorder: No - HEENT Hx HEENT Disorder: No - Renal Hx Renal Disorder: No - Endocrine/Metabolic Hx Endocrine Disorders: No - Hematological/Oncological Hx Blood Disorders: No - Integumentary Hx Dermatological Disorder: No - Musculoskeletal/Rheumatological Hx Musculoskeletal Disorders: No Hx Back Pain: Yes Hx Falls: Yes - Gastrointestinal Hx Gastrointestinal Disorders: Yes (GASTRITIS,H/O GI BLEED,FATTY LIVER) Hx Pancreatitis: Yes - Genitourinary/Gynecological Hx Genitourinary Disorders: No - Psychiatric Hx Psychophysiologic Disorder: Yes (DEPRESSION,HOMELESSNESS,SMOKES CIGARETTES 7 TO 1/2 PPD) Hx Depression: Yes Hx Substance Use: No Other/Comment: ETOH - Past Surgical History Past Surgical History: No Previous - Anesthesia Hx Anesthesia: Yes Hx Anesthesia Reactions: No Hx Malignant Hyperthermia: No - Suicidal Assessment Feels Threatened In Home Enviroment: No Family/Social History - Physician Review Nursing Documentation Reviewed: Yes Family/Social History: No Known Family HX Smoking Status: Current Some Days Smoker Hx Alcohol Use: Yes (ETOH DAILY.DRINKS 24 OZ OF LUZ ICE 8-12 CNAS OF ANOTHER KIND OF BEER D) Hx Substance Use: No Hx Substance Use Treatment: No Allergies/Home Meds Allergies/Adverse Reactions: Allergies No Known Allergies Allergy (Verified 02/07/17 19:06) Review of Systems - Physician Review All systems were reviewed & negative as marked: Yes - Review of Systems Constitutional: absent: Fevers Respiratory: absent: SOB Cardiovascular: absent: Chest Pain Gastrointestinal: Abdominal Pain. absent: Diarrhea, Nausea, Vomiting, Hematochezia, Hematemesis Genitourinary Male: absent: Dysuria, Frequency, Hematuria, Urinary Output Changes Physical Exam Vital Signs Reviewed: Yes Vital Signs Temp Pulse Resp BP Pulse Ox 02/11/17 13:02 98.0 F 79 18 130/71 98 Temperature: Afebrile Blood Pressure: Normal Pulse: Regular Respiratory Rate: Normal Appearance: Positive for: Well-Appearing, Non-Toxic, Comfortable Pain Distress: None Mental Status: Positive for: Alert and Oriented X 3 - Systems Exam Head: Present: Atraumatic, Normocephalic Pupils: Present: PERRL Extroacular Muscles: Present: EOMI Conjunctiva: Present: Normal Mouth: Present: Moist Mucous Membranes Neck: Present: Normal Range of Motion Respiratory/Chest: Present: Clear to Auscultation, Good Air Exchange. No: Respiratory Distress, Accessory Muscle Use Cardiovascular: Present: Regular Rate and Rhythm, Normal S1, S2. No: Murmurs Abdomen: Present: Normal Bowel Sounds. No: Tenderness, Distention, Peritoneal Signs Back: Present: Normal Inspection Upper Extremity: Present: Normal Inspection. No: Cyanosis, Edema Lower Extremity: Present: Normal Inspection. No: Edema Neurological: Present: GCS=15, CN II-XII Intact, Speech Normal Skin: Present: Warm, Dry, Normal Color. No: Rashes Psychiatric: Present: Alert, Oriented x 3, Normal Insight, Normal Concentration Medical Decision Making ED Course and Treatment: 02/11/17 13:04 Impression: A 46 year old male with abdominal pain. Patient denies any nausea, vomiting or diarrhea. Differential Diagnosis included but are not limited to: Alcohol abuse, Gastritis Plan: -- Maalox and Pepcid -- Reassess and disposition Progress Notes: On re-evaluation, patient feels better and is in no acute distress. I have discussed the results and plan with the patient, who expresses understanding. Patient in agreement with plan to be discharged home. Patient is stable for discharge. Patient was instructed to follow up with clinic or return if symptoms worsen or new concerning symptoms arise. - Medication Orders Current Medication Orders: Discontinued Medications Al Hydrox/Mg Hydrox/Simethicone (Maalox Plus 30 Ml) 30 ml PO STAT STA Stop: 02/11/17 12:57 Last Admin: 02/11/17 13:19 Dose: 30 ML Famotidine (Pepcid) 20 mg PO STAT STA Stop: 02/11/17 12:57 Last Admin: 02/11/17 13:19 Dose: 20 MG - Scribe Statement The provider has reviewed the documentation as recorded by the Debbie Cazares Provider Scribe Attestation: All medical record entries made by the Scribe were at my direction and personally dictated by me. I have reviewed the chart and agree that the record accurately reflects my personal performance of the history, physical exam, medical decision making, and the department course for this patient. I have also personally directed, reviewed, and agree with the discharge instructions and disposition. Disposition/Present on Arrival - Present on Arrival Any Indicators Present on Arrival: No History of DVT/PE: No History of Uncontrolled Diabetes: No Urinary Catheter: No History of Decub. Ulcer: No History Surgical Site Infection Following: None - Disposition Have Diagnosis and Disposition been Completed?: Yes Diagnosis: Alcohol abuse, Gastritis Disposition: HOME/ ROUTINE Disposition Time: 13:25 Patient Plan: Discharge Patient Problems: Current Active Problems Problem Status Diagnosed Abdominal pain Resolved Lactic acidosis Resolved Alcohol intoxication Resolved Alcohol withdrawal Resolved Hypomagnesemia Resolved Condition: IMPROVED Additional Instructions: Mr Mccormick, thank you for letting us take care of you today. Your provider was Dr. Valentino. You were treated for Alcohol Abuse, Abdominal Pain The emergency medical care you received today was directed at your acute symptoms. If you were prescribed any medication, please fill it and take as directed. It may take several days for your symptoms to resolve. Return to the Emergency Department if your symptoms worsen, do not improve, or if you have any other problems. Please contact your doctor or call one of the physicians/clinics you have been referred to that are listed on the Patient Visit Information form that is included in your discharge packet. Bring any paperwork you were given at discharge with you along with any medications you are taking to your follow up visit. Our treatment cannot replace ongoing medical care by a primary care provider (PCP) outside of the emergency department. Thank you for allowing the [facility] team to be part of your care today. If you had an X-Ray or CT scan: A Radiologist will review the ED reading if any change in treatment is needed we will contact you. If you had a blood, urine, or wound culture: It will take several days for the results, if any change in treatment is needed we will contact you. If you had an STI test: It will take 48 hours for the results. Please call after 1 week if you have not heard back. Prescriptions: Aluminum Hydroxide/Magnesium H [Maalox 30 ml] 30 ml PO Q8 #1 bottle Ranitidine HCl [Zantac] 150 mg PO BID PRN #30 tablet PRN Reason: Pain, Mild (1-3) [place] [facility] [place] [facility] [place] - Follow up with primary Zeina Crespo MD [Staff Provider] - Follow up with primary
== END 2017-02-11 13:32 | disposition home or self-care (01) ==
LOC: ED 12:11
DX: K29.70 Gastritis, unspecified, without bleeding (principal); F10.10 Alcohol abuse, uncomplicated; Y90.9 Presence of alcohol in blood, level not specified

== ENCOUNTER 2017-02-12 12:25 | Emergency (ER) | payer MEDICAID, OTHER ==
--- NOTE | 2017-02-12 12:38 | ED PDOC ---
Arrival/HPI - General Time Seen by Provider: 02/12/17 12:31 Historian: Patient - History of Present Illness Narrative History of Present Illness (Text): 02/12/17 12:38 A 46 year old male, whose past medical history includes alcohol abuse, was brought into the emergency department by EMS complaining of shortness of breath today. Patient notes mild abdominal discomfort. He denies any relieving or exacerbating factors. Patient denies any fever, nausea, vomiting, diarrhea, urinary symptoms, chest pain, cough or any other complaints. Patient is well known to emergency room for multiple visits concerning similar complaints. Time/Duration: Prior to Arrival Symptom Course: Unchanged Quality: Other Context: Other Past Medical History - Provider Review Nursing Documentation Reviewed: Yes - Infectious Disease Hx of Infectious Diseases: None - Tetanus Immunization Tetanus Immunization: Up to Date - Reproductive Currently : No - Past Medical History Past Medical History: No Previous - Cardiac Hx Cardiac Disorders: Yes Hx Hypertension: Yes - Pulmonary Hx Respiratory Disorders: No - Neurological Hx Neurological Disorder: No - HEENT Hx HEENT Disorder: No - Renal Hx Renal Disorder: No - Endocrine/Metabolic Hx Endocrine Disorders: No - Hematological/Oncological Hx Blood Disorders: No - Integumentary Hx Dermatological Disorder: No - Musculoskeletal/Rheumatological Hx Musculoskeletal Disorders: No Hx Back Pain: Yes Hx Falls: Yes - Gastrointestinal Hx Gastrointestinal Disorders: Yes (GASTRITIS,H/O GI BLEED,FATTY LIVER) Hx Pancreatitis: Yes - Genitourinary/Gynecological Hx Genitourinary Disorders: No - Psychiatric Hx Psychophysiologic Disorder: Yes (DEPRESSION,HOMELESSNESS,SMOKES CIGARETTES 7 TO 1/2 PPD) Hx Depression: Yes Hx Substance Use: No Other/Comment: ETOH - Past Surgical History Past Surgical History: No Previous - Anesthesia Hx Anesthesia: Yes Hx Anesthesia Reactions: No Hx Malignant Hyperthermia: No - Suicidal Assessment Feels Threatened In Home Enviroment: No Family/Social History - Physician Review Nursing Documentation Reviewed: Yes Family/Social History: No Known Family HX Smoking Status: Current Some Days Smoker Hx Alcohol Use: Yes (ETOH DAILY.DRINKS 24 OZ OF LUZ ICE 8-12 CNAS OF ANOTHER KIND OF BEER D) Hx Substance Use: No Hx Substance Use Treatment: No Allergies/Home Meds Allergies/Adverse Reactions: Allergies No Known Allergies Allergy (Verified 02/07/17 19:06) Review of Systems - Physician Review All systems were reviewed & negative as marked: Yes - Review of Systems Constitutional: absent: Fevers Respiratory: SOB. absent: Cough Cardiovascular: absent: Chest Pain Gastrointestinal: Abdominal Pain. absent: Diarrhea, Nausea, Vomiting Genitourinary Male: absent: Dysuria, Frequency, Hematuria, Urinary Output Changes Physical Exam - Physical Exam Narrative Physical Exam (Text): Constitutional: No acute distress. Head: Normocephalic. Atraumatic. Eyes: PERRL. ENT: Moist mucous membranes. Neck: Supple. Cardiovascular: Regular rate. Chest: No tenderness. Respiratory: No respiratory distress. Equal breath sounds bilaterally. GI: No rebound or guarding. Back: No CVA tenderness. Musculoskeletal: No tenderness or swelling of extremities. Skin: No rash. Neurologic: Alert, no focal deficit. Vital Signs Temp Pulse Resp BP Pulse Ox 02/12/17 12:46 98.6 F 100 H 16 141/83 100 Appearance: Positive for: Well-Appearing, Non-Toxic, Comfortable Pain Distress: None Mental Status: Positive for: Alert and Oriented X 3 Medical Decision Making ED Course and Treatment: 02/12/17 12:37 Impression: A 46 year old male with shortness of breath. Patient notes abdominal discomfort but denies any other complaints. Plan: -- -- Reassess and disposition Prior Visits: Notes and results from previous visits were reviewed. Patient last seen in the ED yesterday on 02/11/17 for abdominal pain. Patient was discharged home on Maalox and Zantac. Progress Notes: I discussed the patient's ER visits with the patient and that frequent visits in the ER are typically not advantageous and follow up with primary care is essential. - Scribe Statement The provider has reviewed the documentation as recorded by the Debbie Cazares Provider Scribe Attestation: All medical record entries made by the Scribaudi were at my direction and personally dictated by me. I have reviewed the chart and agree that the record accurately reflects my personal performance of the history, physical exam, medical decision making, and the department course for this patient. I have also personally directed, reviewed, and agree with the discharge instructions and disposition. Disposition/Present on Arrival - Present on Arrival Any Indicators Present on Arrival: No History of DVT/PE: No History of Uncontrolled Diabetes: No Urinary Catheter: No History Surgical Site Infection Following: None - Disposition Have Diagnosis and Disposition been Completed?: Yes Diagnosis: Homeless Disposition: HOME/ ROUTINE Disposition Time: 13:22 Patient Plan: Discharge Patient Problems: Current Active Problems Problem Status Diagnosed Abdominal pain Resolved Lactic acidosis Resolved Alcohol intoxication Resolved Alcohol withdrawal Resolved Hypomagnesemia Resolved Condition: STABLE Additional Instructions: You should seek primary care at a physician's office. There [facility] contact information has been provided to you. Referrals: [facility] at [facility] [Outside] - Follow up with primary
[2017-02-12 12:41] VITALS: BMI 24.7
[2017-02-12 12:47] VITALS: BP 141/83; PULSE 100; RESP 16; TEMP 98.6; O2SAT 100
== END 2017-02-12 13:34 | disposition home or self-care (01) ==
LOC: ED 12:25
DX: Z59.0 Homelessness (principal); I10 Essential (primary) hypertension; Z72.0 Tobacco use

== ENCOUNTER 2017-02-12 16:57 | Emergency (ER) | payer MEDICAID, OTHER ==
--- NOTE | 2017-02-12 17:19 | ED PDOC ---
Arrival/HPI - General Time Seen by Provider: 02/12/17 17:00 - History of Present Illness Narrative History of Present Illness (Text): 46 y/o M BIBEMS p/w abdominal pain. Patient states he was at [facility] and someone there called an ambulance and he was brought to the ER. The patient has been in this ER multiple times for the same complaint including earlier this day. Denies fever or black stool. Past Medical History - Infectious Disease Hx of Infectious Diseases: None - Tetanus Immunization Tetanus Immunization: Up to Date - Reproductive Currently : No - Past Medical History Past Medical History: No Previous - Cardiac Hx Cardiac Disorders: Yes Hx Hypertension: Yes - Pulmonary Hx Respiratory Disorders: No - Neurological Hx Neurological Disorder: No - HEENT Hx HEENT Disorder: No - Renal Hx Renal Disorder: No - Endocrine/Metabolic Hx Endocrine Disorders: No - Hematological/Oncological Hx Blood Disorders: No - Integumentary Hx Dermatological Disorder: No - Musculoskeletal/Rheumatological Hx Musculoskeletal Disorders: No Hx Back Pain: Yes Hx Falls: Yes - Gastrointestinal Hx Gastrointestinal Disorders: Yes (GASTRITIS,H/O GI BLEED,FATTY LIVER) Hx Pancreatitis: Yes - Genitourinary/Gynecological Hx Genitourinary Disorders: No - Psychiatric Hx Psychophysiologic Disorder: Yes (DEPRESSION,HOMELESSNESS,SMOKES CIGARETTES 7 TO 1/2 PPD) Hx Depression: Yes Hx Substance Use: No Other/Comment: ETOH - Past Surgical History Past Surgical History: No Previous - Anesthesia Hx Anesthesia: Yes Hx Anesthesia Reactions: No Hx Malignant Hyperthermia: No - Suicidal Assessment Feels Threatened In Home Enviroment: No Family/Social History Family/Social History: No Known Family HX Smoking Status: Current Some Days Smoker Hx Alcohol Use: Yes (ETOH DAILY.DRINKS 24 OZ OF LUZ ICE 8-12 CNAS OF ANOTHER KIND OF BEER D) Hx Substance Use: No Hx Substance Use Treatment: No Allergies/Home Meds Allergies/Adverse Reactions: Allergies No Known Allergies Allergy (Verified 02/07/17 19:06) Review of Systems - Physician Review All systems were reviewed & negative as marked: Yes - Review of Systems Constitutional: absent: Fevers Cardiovascular: absent: Chest Pain Physical Exam Vital Signs Temp Pulse Resp BP Pulse Ox 02/12/17 17:31 98.0 F 68 18 130/73 98 - Systems Exam Head: Present: Atraumatic Pupils: Present: PERRL Mouth: Present: Moist Mucous Membranes Respiratory/Chest: Present: Clear to Auscultation Cardiovascular: Present: Regular Rate and Rhythm Abdomen: No: Rebound, Guarding Upper Extremity: Present: NORMAL PULSES Neurological: Present: Gait Normal Psychiatric: Present: Alert Medical Decision Making ED Course and Treatment: Vital signs normal. Patient with steady gait. Stressed the importance of primary care follow up. Discharged. Disposition/Present on Arrival - Present on Arrival Any Indicators Present on Arrival: No History of DVT/PE: No History of Uncontrolled Diabetes: No Urinary Catheter: No History Surgical Site Infection Following: None - Disposition Have Diagnosis and Disposition been Completed?: Yes Diagnosis: Homeless Disposition: HOME/ ROUTINE Disposition Time: 17:19 Patient Plan: Discharge Patient Problems: Current Active Problems Problem Status Diagnosed Homeless Chronic Abdominal pain Resolved Lactic acidosis Resolved Alcohol intoxication Resolved Alcohol withdrawal Resolved Hypomagnesemia Resolved Condition: STABLE Referrals: [facility] [place] - Follow up with primary
[2017-02-12 17:32] VITALS: RESP 18; TEMP 98
[2017-02-12 17:48] VITALS: BMI 24.7
[2017-02-12 20:52] VITALS: BP 144/44; PULSE 92; O2SAT 95
== END 2017-02-12 20:50 | disposition home or self-care (01) ==
LOC: ED 16:57 → EROBSV 19:00 → UNDOADMOB 19:00 → ED 20:50
DX: Z59.0 Homelessness (principal); I10 Essential (primary) hypertension; Z72.0 Tobacco use

== ENCOUNTER 2017-02-13 13:59 | Emergency (ER) | payer MEDICAID, OTHER ==
[2017-02-13 14:00] VITALS: BMI 24.7
--- NOTE | 2017-02-13 15:12 | ED PDOC ---
Arrival/HPI - General Chief Complaint: Abdominal Pain Time Seen by Provider: 02/13/17 15:06 Historian: Patient - History of Present Illness Narrative History of Present Illness (Text): 02/13/17 15:07 46 year old male, well known to the emergency department, whose past medical history includes alcohol abuse, was brought into the emergency department by EMS complaining of mild abdominal discomfort today. He denies any relieving or exacerbating factors. Patient denies any fever, nausea, vomiting, diarrhea, urinary symptoms, chest pain, shortness of breath, cough or any other complaints. Patient is well known to emergency room for multiple visits concerning similar complaints. Time/Duration: 24 hours Symptom Onset: Gradual Symptom Course: Unchanged Modifying Factors (Text): None Associated Symptoms (Text): None Past Medical History - Provider Review Nursing Documentation Reviewed: Yes - Infectious Disease Hx of Infectious Diseases: None - Tetanus Immunization Tetanus Immunization: Up to Date - Reproductive Currently : No - Past Medical History Past Medical History: No Previous - Cardiac Hx Cardiac Disorders: Yes Hx Hypertension: Yes - Pulmonary Hx Respiratory Disorders: No - Neurological Hx Neurological Disorder: No - HEENT Hx HEENT Disorder: No - Renal Hx Renal Disorder: No - Endocrine/Metabolic Hx Endocrine Disorders: No - Hematological/Oncological Hx Blood Disorders: No - Integumentary Hx Dermatological Disorder: No - Musculoskeletal/Rheumatological Hx Musculoskeletal Disorders: Yes Hx Back Pain: Yes Hx Falls: Yes - Gastrointestinal Hx Gastrointestinal Disorders: Yes (GASTRITIS,H/O GI BLEED,FATTY LIVER) Hx Pancreatitis: Yes - Genitourinary/Gynecological Hx Genitourinary Disorders: No - Psychiatric Hx Psychophysiologic Disorder: Yes (DEPRESSION,HOMELESSNESS,SMOKES CIGARETTES 7 TO 1/2 PPD) Hx Depression: Yes Hx Substance Use: No Other/Comment: ETOH - Past Surgical History Past Surgical History: No Previous - Anesthesia Hx Anesthesia: Yes Hx Anesthesia Reactions: No Hx Malignant Hyperthermia: No - Suicidal Assessment Feels Threatened In Home Enviroment: No Family/Social History - Physician Review Nursing Documentation Reviewed: Yes Family/Social History: Unknown Family HX Smoking Status: Current Some Days Smoker Hx Alcohol Use: Yes (ETOH DAILY.DRINKS 24 OZ OF LUZ ICE 8-12 CNAS OF ANOTHER KIND OF BEER D) Frequency of alcohol use: Daily Hx Substance Use: No Hx Substance Use Treatment: No Allergies/Home Meds Allergies/Adverse Reactions: Allergies No Known Allergies Allergy (Verified 02/13/17 14:34) Home Medications: Home Meds Medication Instructions Recorded Confirmed No Known Home Med 02/13/17 02/13/17 Review of Systems - Physician Review All systems were reviewed & negative as marked: Yes - Review of Systems Constitutional: absent: Fevers Respiratory: absent: SOB, Cough Cardiovascular: absent: Chest Pain Gastrointestinal: Abdominal Pain (mild). absent: Diarrhea, Nausea, Vomiting Genitourinary Male: absent: Dysuria, Frequency, Hematuria Neurological: absent: Dizziness Physical Exam - Physical Exam Narrative Physical Exam (Text): Constitutional: No acute distress. Head: Normocephalic. Atraumatic. Eyes: PERRL. ENT: Moist mucous membranes. Neck: Supple. Cardiovascular: Regular rate. Chest: No tenderness. Respiratory: Clear to auscultation bilaterally. GI: Soft. Nontender. Nondistended. Back: No CVA tenderness. Musculoskeletal: No tenderness or swelling of extremities. Skin: No rash. Neurologic: Alert, no focal deficit. No tremors. Steady gait. Vital Signs Reviewed: Yes Vital Signs Temp Pulse Resp BP Pulse Ox 02/13/17 14:35 97.8 F 87 16 98/65 L 97 Temperature: Afebrile Blood Pressure: Normal Pulse: Regular Respiratory Rate: Normal Appearance: Positive for: Well-Appearing, Non-Toxic, Comfortable Pain Distress: None Mental Status: Positive for: Alert and Oriented X 3 Medical Decision Making ED Course and Treatment: Impression: 46 year old male, well known to the emergency department, whose past medical history includes alcohol abuse, was brought into the emergency department by EMS complaining of mild abdominal discomfort today. Plan: -- Discharge Prior Visits: Notes and results from previous visits were reviewed. Patient last seen in the ED twice yesterday 02/12/17 for abdominal pain and discharged. Progress Notes: 02/13/17 15:22 Patient with no acute findings on physical exam. I discussed the patient's ER visits with the patient and that frequent visits in the ER are typically not advantageous and follow up with primary care is essential. Instructed patient to follow up with PCP or return to the ER if symptoms worsen. Patient agrees with plan. Patient stable for discharge. All questions answered. - Scribe Statement The provider has reviewed the documentation as recorded by the Debbie Mora Provider Scribe Attestation: All medical record entries made by the Scribe were at my direction and personally dictated by me. I have reviewed the chart and agree that the record accurately reflects my personal performance of the history, physical exam, medical decision making, and the department course for this patient. I have also personally directed, reviewed, and agree with the discharge instructions and disposition. Disposition/Present on Arrival - Present on Arrival Any Indicators Present on Arrival: No History of DVT/PE: No History of Uncontrolled Diabetes: No Urinary Catheter: No History of Decub. Ulcer: No History Surgical Site Infection Following: None - Disposition Have Diagnosis and Disposition been Completed?: Yes Diagnosis: Alcohol abuse Disposition: HOME/ ROUTINE Disposition Time: 15:12 Patient Plan: Discharge Patient Problems: Current Active Problems Problem Status Diagnosed Alcohol abuse Chronic Homeless Chronic Abdominal pain Resolved Lactic acidosis Resolved Alcohol intoxication Resolved Alcohol withdrawal Resolved Hypomagnesemia Resolved Condition: STABLE Referrals: PCP,NO [Primary Care Provider] - Follow up with primary
[2017-02-13 15:51] VITALS: BP 119/73; PULSE 76; RESP 18; TEMP 98; O2SAT 96
== END 2017-02-13 15:51 | disposition home or self-care (01) ==
LOC: ED 13:59
DX: F10.10 Alcohol abuse, uncomplicated (principal)

== ENCOUNTER 2017-02-13 21:12 | Observation (INO) | payer MEDICAID, OTHER ==
[2017-02-13 22:33] VITALS: BMI 25.4
[2017-02-13 22:36] VITALS: TEMP 98.2; O2SAT 98
--- NOTE | 2017-02-13 22:43 | ED PDOC ---
Arrival/HPI - General Chief Complaint: Alcohol Ingestion Time Seen by Provider: 02/13/17 21:42 Historian: Patient, EMS - History of Present Illness Narrative History of Present Illness (Text): 02/13/17 22:35 Angelo Mccormick is a 46 year old male, whose past medical history includes alcohol abuse, was brought into the emergency department by EMS for public intoxication. Patient was found inebriated in [employer] tonight. Patient is well- known to Emergency room staff and has been seen on multiple occasions for similar complaints. Patient was seen earlier today and discharged 7 hours prior to arrival. Patient denies any fever, chills, chest pain, shortness of breath, nausea, vomiting, diarrhea, urinary symptoms, back pain, neck pain, headache, dizziness, or any other complaints. Time/Duration: Other (tonight) Symptom Onset: Gradual Symptom Course: Unchanged Severity Level: Mild Activities at Onset: Light Past Medical History - Provider Review Nursing Documentation Reviewed: Yes - Infectious Disease Hx of Infectious Diseases: None - Tetanus Immunization Tetanus Immunization: Up to Date - Reproductive Currently : No - Past Medical History Past Medical History: No Previous - Cardiac Hx Cardiac Disorders: Yes Hx Hypertension: Yes - Pulmonary Hx Respiratory Disorders: No - Neurological Hx Neurological Disorder: No - HEENT Hx HEENT Disorder: No - Renal Hx Renal Disorder: No - Endocrine/Metabolic Hx Endocrine Disorders: No - Hematological/Oncological Hx Blood Disorders: No - Integumentary Hx Dermatological Disorder: No - Musculoskeletal/Rheumatological Hx Musculoskeletal Disorders: Yes Hx Back Pain: Yes Hx Falls: Yes - Gastrointestinal Hx Gastrointestinal Disorders: Yes (GASTRITIS,H/O GI BLEED,FATTY LIVER) Hx Pancreatitis: Yes - Genitourinary/Gynecological Hx Genitourinary Disorders: No - Psychiatric Hx Psychophysiologic Disorder: Yes (DEPRESSION,HOMELESSNESS,SMOKES CIGARETTES 7 TO 1/2 PPD) Hx Depression: Yes Hx Substance Use: No Other/Comment: ETOH - Past Surgical History Past Surgical History: No Previous - Anesthesia Hx Anesthesia: Yes Hx Anesthesia Reactions: No Hx Malignant Hyperthermia: No - Suicidal Assessment Feels Threatened In Home Enviroment: No Family/Social History - Physician Review Nursing Documentation Reviewed: Yes Family/Social History: No Known Family HX Smoking Status: Current Some Days Smoker Hx Alcohol Use: Yes (ETOH DAILY.DRINKS 24 OZ OF LUZ ICE 8-12 CNAS OF ANOTHER KIND OF BEER D) Hx Substance Use: No Hx Substance Use Treatment: No Allergies/Home Meds Allergies/Adverse Reactions: Allergies No Known Allergies Allergy (Verified 02/13/17 14:34) Home Medications: Home Meds Medication Instructions Recorded Confirmed No Known Home Med 02/13/17 02/13/17 Review of Systems - Physician Review All systems were reviewed & negative as marked: Yes - Review of Systems Constitutional: Normal. absent: Fevers Eyes: Normal ENT: Normal Respiratory: Normal. absent: SOB, Cough Cardiovascular: Normal. absent: Chest Pain Gastrointestinal: Normal. absent: Abdominal Pain, Diarrhea, Nausea, Vomiting Genitourinary Male: Normal. absent: Dysuria, Frequency, Hematuria, Urinary Output Changes Musculoskeletal: Normal. absent: Back Pain, Neck Pain Skin: Normal. absent: Rash Neurological: Normal. absent: Headache, Dizziness Endocrine: Normal Hemo/Lymphatic: Normal Psychiatric: Normal Physical Exam Vital Signs Reviewed: Yes Vital Signs Temp Pulse Resp BP Pulse Ox 02/14/17 04:00 84 18 130/72 98 02/14/17 02:49 82 18 126/78 98 02/13/17 21:12 98.2 F 88 16 132/78 98 Temperature: Afebrile Blood Pressure: Normal Pulse: Regular Respiratory Rate: Normal Appearance: Positive for: Well-Appearing, Non-Toxic, Comfortable Pain Distress: None Mental Status: Positive for: Alert and Oriented X 3 Finger Stick Blood Glucose: 108 - Systems Exam Head: Present: Atraumatic, Normocephalic Pupils: Present: PERRL Extroacular Muscles: Present: EOMI Conjunctiva: Present: Normal Mouth: Present: Moist Mucous Membranes Neck: Present: Normal Range of Motion Respiratory/Chest: Present: Clear to Auscultation, Good Air Exchange. No: Respiratory Distress, Accessory Muscle Use Cardiovascular: Present: Regular Rate and Rhythm, Normal S1, S2. No: Murmurs Abdomen: Present: Normal Bowel Sounds. No: Tenderness, Distention, Peritoneal Signs Back: Present: Normal Inspection Upper Extremity: Present: Normal Inspection. No: Cyanosis, Edema Lower Extremity: Present: Normal Inspection. No: Edema Neurological: Present: GCS=15, CN II-XII Intact, Speech Normal Skin: Present: Warm, Dry, Normal Color. No: Rashes Psychiatric: Present: Alert, Oriented x 3, Normal Insight, Normal Concentration Medical Decision Making ED Course and Treatment: 02/13/17 22:35 Impression: 46 year old male brought in for alcohol intoxication tonight. Differential Diagnosis include but are not limited to: alcohol intoxication Plan: -- Reassess and disposition Prior Visits: Notes and results from previous visits were reviewed. Pt is well known to Emergency room staff and has been seen on multiple occasions for similar complaints. Progress Notes: ED OBSERVATION Discharge: Yes Date of observation admission: 02/13/17 Time of observation admission: 22:35 - Observation admission statement Patient is being placed in observation because:: alcohol intoxication - Goals of Observation Goals of observation are:: sobriety - Progress Note Progress Note: 02/13/17 00:35 Pt brought in for public intoxication. Will observe until morning pending sobriety. 02/14/17 00:30 Pt resting comfortably, no new complaints. 02/14/17 02:30 Pt sleeping currently, in no acute distress. 02/14/17 04:30 Pt resting comfortably, no new complaints. 02/14/17 04:42 RN reports pt eloped from ED without announcing. - Scribe Statement The provider has reviewed the documentation as recorded by the Debbie Jackman Provider Attestation: All medical record entries made by the Debbie were at my direction and personally dictated by me. I have reviewed the chart and agree that the record accurately reflects my personal performance of the history, physical exam, medical decision making, and the department course for this patient. I have also personally directed, reviewed, and agree with the discharge instructions and disposition. Disposition/Present on Arrival - Present on Arrival Any Indicators Present on Arrival: No History of DVT/PE: No History of Uncontrolled Diabetes: No Urinary Catheter: No History of Decub. Ulcer: No History Surgical Site Infection Following: None - Disposition Have Diagnosis and Disposition been Completed?: Yes Diagnosis: Alcohol dependence Disposition: ELOPEMENT - ER ONLY Disposition Time: 04:45 Patient Problems: Current Active Problems Problem Status Diagnosed Homeless Chronic Abdominal pain Resolved Lactic acidosis Resolved Alcohol intoxication Resolved Alcohol withdrawal Resolved Hypomagnesemia Resolved Condition: GOOD
[2017-02-14 02:50] VITALS: RESP 18
[2017-02-14 04:44] VITALS: BP 130/72; PULSE 84
== END 2017-02-14 04:52 | disposition home or self-care (01) ==
LOC: ED 21:12 → EROBSV 22:35
PROVIDERS: ADMIT Emergency Medicine; ATTEND Emergency Medicine
DX: F10.20 Alcohol dependence, uncomplicated (principal); Y90.9 Presence of alcohol in blood, level not specified
CPT/HCPCS: 99283; G0378

== ENCOUNTER 2017-02-14 15:36 | Emergency (ER) | payer MEDICAID, OTHER ==
[2017-02-14 15:36] VITALS: BMI 25.4
[2017-02-14 15:50] VITALS: TEMP 97.5
--- NOTE | 2017-02-14 16:39 | ED PDOC ---
Arrival/HPI - General Chief Complaint: Psychiatric Evaluation Time Seen by Provider: 02/14/17 15:38 Historian: Patient - History of Present Illness Narrative History of Present Illness (Text): 02/14/17 16:22 A 46 year old male, whose past medical history includes alcohol abuse, is brought into the emergency department via EMS for public intoxication. Patient is well-known to the emergency room staff and has been seem on multiple occasions for similar complaints. Patient admits to drinking today. He expresses some suicidal ideation but denies any homicidal ideation, Suicidal plan, visual hallucination, auditory hallucination, fever, chills, chest pain, shortness of breath, nausea, vomiting, diarrhea, urinary symptoms, back pain, neck pain, headache, dizziness, or any other complaints. Past Medical History - Provider Review Nursing Documentation Reviewed: Yes - Infectious Disease Hx of Infectious Diseases: None - Tetanus Immunization Tetanus Immunization: Up to Date - Reproductive Currently : No - Past Medical History Past Medical History: No Previous - Cardiac Hx Cardiac Disorders: Yes Hx Hypertension: Yes - Pulmonary Hx Respiratory Disorders: No - Neurological Hx Neurological Disorder: No - HEENT Hx HEENT Disorder: No - Renal Hx Renal Disorder: No - Endocrine/Metabolic Hx Endocrine Disorders: No - Hematological/Oncological Hx Blood Disorders: No - Integumentary Hx Dermatological Disorder: No - Musculoskeletal/Rheumatological Hx Musculoskeletal Disorders: Yes Hx Back Pain: Yes Hx Falls: Yes - Gastrointestinal Hx Gastrointestinal Disorders: Yes (GASTRITIS,H/O GI BLEED,FATTY LIVER) Hx Pancreatitis: Yes - Genitourinary/Gynecological Hx Genitourinary Disorders: No - Psychiatric Hx Psychophysiologic Disorder: Yes (DEPRESSION,HOMELESSNESS,SMOKES CIGARETTES 7 TO 1/2 PPD) Hx Depression: Yes Hx Substance Use: No Other/Comment: ETOH - Past Surgical History Past Surgical History: No Previous - Anesthesia Hx Anesthesia: Yes Hx Anesthesia Reactions: No Hx Malignant Hyperthermia: No - Suicidal Assessment Feels Threatened In Home Enviroment: No Family/Social History - Physician Review Nursing Documentation Reviewed: Yes Family/Social History: No Known Family HX Smoking Status: Current Some Days Smoker Hx Alcohol Use: Yes (ETOH DAILY.DRINKS 24 OZ OF LUZ ICE 8-12 CNAS OF ANOTHER KIND OF BEER D) Frequency of alcohol use: Daily Hx Substance Use: No Hx Substance Use Treatment: No Allergies/Home Meds Allergies/Adverse Reactions: Allergies No Known Allergies Allergy (Verified 02/14/17 15:49) Home Medications: Home Meds Medication Instructions Recorded Confirmed No Known Home Med 02/13/17 02/14/17 Review of Systems - Physician Review All systems were reviewed & negative as marked: Yes - Review of Systems Eyes: Normal ENT: Normal Respiratory: Normal Cardiovascular: Normal Gastrointestinal: Normal Genitourinary Male: Normal Musculoskeletal: Normal Skin: Normal Neurological: Normal Endocrine: Normal Hemo/Lymphatic: Normal Psychiatric: Suicidal Ideation, Other (intoxicated) Physical Exam Vital Signs Reviewed: Yes Vital Signs Temp Pulse Resp BP Pulse Ox 02/14/17 20:37 97/58 L 02/14/17 20:33 100 H 16 90/54 L 99 02/14/17 17:36 92 H 16 122/78 100 02/14/17 15:50 97.5 F L 87 17 113/85 99 Temperature: Afebrile Blood Pressure: Normal Pulse: Regular Respiratory Rate: Normal Appearance: Positive for: Well-Appearing, Non-Toxic, Comfortable Pain Distress: None Mental Status: Positive for: Alert and Oriented X 3 Finger Stick Blood Glucose: 131 - Systems Exam Head: Present: Atraumatic, Normocephalic Pupils: Present: PERRL Extroacular Muscles: Present: EOMI Conjunctiva: Present: Normal Mouth: Present: Moist Mucous Membranes Neck: Present: Normal Range of Motion Respiratory/Chest: Present: Clear to Auscultation, Good Air Exchange. No: Respiratory Distress, Accessory Muscle Use Cardiovascular: Present: Regular Rate and Rhythm, Normal S1, S2. No: Murmurs Abdomen: Present: Normal Bowel Sounds. No: Tenderness, Distention, Peritoneal Signs Back: Present: Normal Inspection Upper Extremity: Present: Normal Inspection. No: Cyanosis, Edema Lower Extremity: Present: Normal Inspection. No: Edema Neurological: Present: GCS=15, CN II-XII Intact, Speech Normal Skin: Present: Warm, Dry, Normal Color. No: Rashes Psychiatric: Present: Alert, Oriented x 3, Normal Insight, Normal Concentration , Intoxicated Medical Decision Making ED Course and Treatment: 02/14/17 16:22 Impression: A 46 year old male brought in for public intoxication. Differential Diagnosis include but are not limited to: alcohol abuse Plan: -- EKG -- Chest X-ray -- Labs -- Urinalysis -- Finger stick -- Reassess and disposition --1:1 monitoring for suicidal ideation and alcohol intoxication Prior Visits: Notes and results from previous visits were reviewed. The patient is well known to the emergency room. Patient presented multiple times for evaluation of public intoxication, chest pain and suicidal ideation. Progress Notes: Patient finger stick is 131. EKG: Ordered, reviewed, and independently interpreted the EKG. Rate : 86 BPM Rhythm : NSR Interpretation : No change from previous EKG on 01/30/2017 for comparison. 02/14/17 18:53 Cxray negative. Labs at baseline. UDS positive for benzodiazepines. Alcohol elevated to 340 at 5:12. Will be sober around 3am and will need to reevaluate and consult psych for suicidal ideation. 02/14/17 21:36 Patient resting comfortably 02/14/17 23:[address] sign out to Dr. Yap to reevaluate when sober and consult psych if necessary - Lab Interpretations Lab Results: 02/14/17 17:12 02/14/17 17:12 Lab Results 02/14/17 17:20: Urine Color Yellow, Urine Appearance Clear, Urine pH 6.5, Ur Specific [place] <= 1.005, Urine Protein Negative, Urine Glucose (UA) Negative, Urine Ketones Negative, Urine Blood Negative, Urine Nitrate Negative, Urine Bilirubin Negative, Urine Urobilinogen 0.2, Ur Leukocyte Esterase Negative, Urine Opiates Screen Negative, Urine Methadone Screen Negative, Ur Barbiturates Screen Negative, Ur Phencyclidine Scrn Negative, Ur Amphetamines Screen Negative , U Benzodiazepines Scrn Positive H, U Oth Cocaine Metabols Negative, U Cannabinoids Screen Negative 02/14/17 17:12: WBC 7.4 D, RBC 3.29 L, Hgb 11.7 L, Hct 34.8 L, MCV 105.8 H, MCH 35.6 H, MCHC 33.6, RDW 13.3, Plt Count 202, MPV 10.0, Gran % 50.9, Lymph % ( Auto) 38.8 H, [place] % (Auto) 7.8 H, Eos % (Auto) 1.6, Baso % (Auto) 0.9, Gran # 3.77, Lymph # 2.9, [place] # 0.6, Eos # 0.1, Baso # 0.07, Sodium 143, Potassium 3.7 , Chloride 104, Carbon Dioxide 27, Anion Gap 16, BUN 12, Creatinine 0.6, Est GFR ( Amer) > 60, Est GFR (Non-Af Amer) > 60, Random Glucose 100, Calcium 9.3, Alcohol, Quantitative 340 H* I have reviewed the lab results: Yes - RAD Interpretation Radiology Orders: 02/14/17 16:46 CHEST PORTABLE [RAD] Stat ED OBSERVATION Date of observation admission: 02/14/17 Time of observation admission: 16:55 - Observation admission statement Patient is being placed in observation because:: alcohol intoxication - Goals of Observation Goals of observation are:: monitoring for sobriety - Scribe Statement The provider has reviewed the documentation as recorded by the Scribe Mena Momin Provider Scribe Attestation: All medical record entries made by the Scribe were at my direction and personally dictated by me. I have reviewed the chart and agree that the record accurately reflects my personal performance of the history, physical exam, medical decision making, and the department course for this patient. I have also personally directed, reviewed, and agree with the discharge instructions and disposition. Disposition/Present on Arrival - Present on Arrival Any Indicators Present on Arrival: No History of DVT/PE: No History of Uncontrolled Diabetes: No Urinary Catheter: No History of Decub. Ulcer: No History Surgical Site Infection Following: None - Disposition Have Diagnosis and Disposition been Completed?: Yes Diagnosis: Suicidal ideation, Alcohol dependence Disposition Time: 16:55 Patient Plan: Observation Patient Problems: Current Active Problems Problem Status Diagnosed Alcohol dependence Acute Suicidal ideation Acute Abdominal pain Resolved Lactic acidosis Resolved Alcohol intoxication Resolved Alcohol withdrawal Resolved Hypomagnesemia Resolved Condition: FAIR Referrals: PCP,NO [Primary Care Provider] - Follow up with primary
[2017-02-14 17:26] LABS: ADD MANUAL DIFF? NO
[2017-02-14 17:34] LABS: BASO # 0.07 K/mm3 (0.0-2.0); BASO % 0.9 % (0.0-3.0); EOS # 0.1 (0.0-0.7); EOS % 1.6 % (1.5-5.0); GRAN # 3.77 (1.4-6.5); GRAN % 50.9 % (50.0-68.0); HEMATOCRIT 34.8 % (42.0-52.0); LYMPH # 2.9 (1.2-3.4); LYMPH % 38.8 % (22.0-35.0); MEAN CELL VOLUME 105.8 fL (80.0-105.0); MEAN CORPUSCULAR HEMOGLOBIN 35.6 pg (25.0-35.0); MEAN CORPUSCULAR HGB CONC 33.6 g/dl (31.0-37.0); MONO # 0.6 (0.1-0.6); MONO % 7.8 % (1.0-6.0); PLATELET COUNT 202 10^3/uL (120.0-450.0); RED CELL DISTRIBUTION WIDTH 13.3 % (11.5-14.5); WHITE BLOOD COUNT 7.4 10^3/ul (4.5-11.0)
[2017-02-14 17:42] LABS: BLOOD UREA NITROGEN 12 mg/dL (7-21); CALCIUM 9.3 mg/dL (8.4-10.5); CARBON DIOXIDE 27 mmol/L (21-33); CHLORIDE 104 mmol/L (98-107); GFR AFRICAN-AMERICAN > 60; GLUCOSE,RANDOM 100 mg/dL (70-110); POTASSIUM 3.7 mmol/L (3.6-5.0); SODIUM 143 mmol/L (132-148)
[2017-02-14 17:51] LABS: PH,URINE 6.5 (4.7-8.0); URINE APPEARANCE CLEAR (CLEAR); URINE BILIRUBIN NEGATIVE (NEGATIVE); URINE BLOOD NEGATIVE (NEGATIVE); URINE COLOR YELLOW (YELLOW); URINE GLUCOSE (UA) NEGATIVE (NEGATIVE); URINE KETONE NEGATIVE (NEGATIVE); URINE LEUKOCYTE ESTERASE NEGATIVE Leu/uL (NEGATIVE); URINE PROTEIN NEGATIVE mg/dL (<30 mg/dL); URINE UROBILINOGEN 0.2 E.U./dL (<1 E.U./dL)
--- NOTE | 2017-02-14 23:11 | ED PDOC ---
Physical Exam Vital Signs Reviewed: Yes Vital Signs Temp Pulse Resp BP Pulse Ox 02/14/17 21:45 95 H 16 123/73 96 02/14/17 20:37 97/58 L 02/14/17 20:33 100 H 16 90/54 L 99 02/14/17 17:36 92 H 16 122/78 100 02/14/17 15:50 97.5 F L 87 17 113/85 99 Temperature: Afebrile Blood Pressure: Normal Pulse: Regular Respiratory Rate: Normal Appearance: Positive for: Well-Appearing, Non-Toxic, Comfortable Pain Distress: None Mental Status: Positive for: Alert and Oriented X 3 Finger Stick Blood Glucose: 131 Medical Decision Making ED Course and Treatment: 02/14/17 23:09 Patient signed out to me by . Patient brought in for alcohol intoxication. Complains of suicidal ideation without a plan. Awaiting sobriety followed by PES evaluation. 02/15/17 04:38 Evaluated by PES and recommend discharge at this time. - Lab Interpretations Lab Results: 02/14/17 17:12 02/14/17 17:12 Lab Results 02/14/17 17:20: Urine Color Yellow, Urine Appearance Clear, Urine pH 6.5, Ur Specific [place] <= 1.005, Urine Protein Negative, Urine Glucose (UA) Negative, Urine Ketones Negative, Urine Blood Negative, Urine Nitrate Negative, Urine Bilirubin Negative, Urine Urobilinogen 0.2, Ur Leukocyte Esterase Negative, Urine Opiates Screen Negative, Urine Methadone Screen Negative, Ur Barbiturates Screen Negative, Ur Phencyclidine Scrn Negative, Ur Amphetamines Screen Negative , U Benzodiazepines Scrn Positive H, U Oth Cocaine Metabols Negative, U Cannabinoids Screen Negative 02/14/17 17:12: WBC 7.4 D, RBC 3.29 L, Hgb 11.7 L, Hct 34.8 L, MCV 105.8 H, MCH 35.6 H, MCHC 33.6, RDW 13.3, Plt Count 202, MPV 10.0, Gran % 50.9, Lymph % ( Auto) 38.8 H, [place] % (Auto) 7.8 H, Eos % (Auto) 1.6, Baso % (Auto) 0.9, Gran # 3.77, Lymph # 2.9, [place] # 0.6, Eos # 0.1, Baso # 0.07, Sodium 143, Potassium 3.7 , Chloride 104, Carbon Dioxide 27, Anion Gap 16, BUN 12, Creatinine 0.6, Est GFR ( Amer) > 60, Est GFR (Non-Af Amer) > 60, Random Glucose 100, Calcium 9.3, Alcohol, Quantitative 340 H* - RAD Interpretation Radiology Orders: 02/14/17 16:46 CHEST PORTABLE [RAD] Stat Disposition/Present on Arrival - Present on Arrival Any Indicators Present on Arrival: No History of DVT/PE: No History of Uncontrolled Diabetes: No Urinary Catheter: No History of Decub. Ulcer: No History Surgical Site Infection Following: None - Disposition Have Diagnosis and Disposition been Completed?: Yes Diagnosis: Suicidal ideation, Alcohol dependence Disposition: HOME/ ROUTINE Disposition Time: 04:38 Patient Problems: Current Active Problems Problem Status Diagnosed Alcohol dependence Acute Suicidal ideation Acute Abdominal pain Resolved Lactic acidosis Resolved Alcohol intoxication Resolved Alcohol withdrawal Resolved Hypomagnesemia Resolved Condition: STABLE Discharge Instructions (ExitCare): Alcohol Intoxication (ED) Referrals: PCP,NO [Primary Care Provider] - Follow up with primary
[2017-02-15 04:39] VITALS: BP 112/74; PULSE 83; RESP 17; O2SAT 97
--- NOTE | 2017-02-15 09:45 | RAD ---
HISTORY: psych COMPARISON: 02/07/2017 FINDINGS: LUNGS: No active pulmonary disease. PLEURA: No significant pleural effusion identified, no pneumothorax apparent. CARDIOVASCULAR: Normal. OSSEOUS STRUCTURES: No significant abnormalities. VISUALIZED UPPER ABDOMEN: Normal. OTHER FINDINGS: None. IMPRESSION: No active disease.
--- NOTE | 2017-02-15 14:29 | CARD ---
APPROVED REPORT EKG Measurement Heart [id number] <Conclusion> Normal sinus rhythm Poor Progression of R in V1-V3.
== END 2017-02-15 05:14 | disposition home or self-care (01) ==
LOC: ED 15:36
DX: F10.20 Alcohol dependence, uncomplicated (principal); R45.851 Suicidal ideations; I10 Essential (primary) hypertension

== ENCOUNTER 2017-02-15 10:09 | Observation (INO) | payer MEDICAID, OTHER ==
[2017-02-15 10:10] VITALS: BMI 25.4
--- NOTE | 2017-02-15 10:20 | ED PDOC ---
Arrival/HPI - General Time Seen by Provider: 02/15/17 10:12 Historian: Patient, EMS - History of Present Illness Narrative History of Present Illness (Text): 02/15/17 10:15 46 y/o male, pmh including pneumonia/pancreatitis, nkda, c/o etoh intoxication x 1 day. Pt. is a well known patient to me due to the frequent visit, last visit about 24 hours ago with labs are within the usual range, found in the public with etoh intoxication with no fall or trauma. Pt. stated that he feels well, need a place to sleep for few hours, no chest pain or shortness of breath , no abdominal pain, no night sweat, no dizziness, no urinary symptoms, no hematuria, no hematochezia or melenoma, no fatigue, no other medical or psychological complaints. Past Medical History - Provider Review Nursing Documentation Reviewed: Yes - Infectious Disease Hx of Infectious Diseases: None - Tetanus Immunization Tetanus Immunization: Up to Date - Reproductive Currently : No - Past Medical History Past Medical History: No Previous - Cardiac Hx Cardiac Disorders: Yes Hx Hypertension: Yes - Pulmonary Hx Tuberculosis: No - Neurological HX Cerebrovascular Accident: No Hx Seizures: No - HEENT Hx HEENT Disorder: No - Renal Hx Renal Disorder: No - Endocrine/Metabolic Hx Endocrine Disorders: No - Hematological/Oncological Hx Cancer: No - Integumentary Hx Dermatological Disorder: No - Musculoskeletal/Rheumatological Hx Musculoskeletal Disorders: Yes Hx Back Pain: Yes Hx Falls: Yes - Gastrointestinal Hx Gastrointestinal Disorders: Yes (GASTRITIS,H/O GI BLEED,FATTY LIVER) Hx Pancreatitis: Yes - Genitourinary/Gynecological Hx Sexually Transmitted Diseases: No - Psychiatric Hx Psychophysiologic Disorder: Yes (DEPRESSION,HOMELESSNESS,SMOKES CIGARETTES 7 TO 1/2 PPD) Hx Depression: Yes Hx Substance Use: No Other/Comment: ETOH - Past Surgical History Past Surgical History: No Previous - Anesthesia Hx Anesthesia: Yes Hx Anesthesia Reactions: No Hx Malignant Hyperthermia: No - Suicidal Assessment Feels Threatened In Home Enviroment: No Family/Social History - Physician Review Nursing Documentation Reviewed: Yes Family/Social History: Unknown Family HX Smoking Status: Current Some Days Smoker Hx Alcohol Use: Yes (ETOH DAILY.DRINKS 24 OZ OF LUZ ICE 8-12 CNAS OF ANOTHER KIND OF BEER D) Hx Substance Use: No Hx Substance Use Treatment: No Allergies/Home Meds Allergies/Adverse Reactions: Allergies No Known Allergies Allergy (Verified 02/14/17 15:49) Home Medications: Home Meds Medication Instructions Recorded Confirmed No Known Home Med 02/13/17 02/14/17 Review of Systems - Review of Systems Constitutional: absent: Fatigue, Fevers Eyes: absent: Vision Changes ENT: absent: Hearing Changes Respiratory: absent: SOB, Cough Cardiovascular: absent: Chest Pain Gastrointestinal: absent: Abdominal Pain, Nausea, Vomiting Genitourinary Male: absent: Dysuria, Frequency, Hematuria, Urinary Output Changes Musculoskeletal: absent: Arthralgias, Back Pain, Neck Pain, Joint Swelling, Myalgias Skin: absent: Rash, Pruritis, Skin Lesions, Abscess, Ulcer, Cellulitis Neurological: absent: Headache, Dizziness, Focal Weakness, Gait Changes, Speech Changes, Facial Droop, Disequilibrium, Seizure, Other Psychiatric: absent: Anxiety, Depression, Suicidal Ideation Physical Exam Vital Signs Temp Pulse Resp BP Pulse Ox 02/15/17 18:25 92 H 16 117/73 99 02/15/17 15:40 97 H 16 101/48 L 95 02/15/17 12:27 73 120/69 99 02/15/17 10:49 97.5 F L 16 105/55 L 99 02/15/17 10:28 97.4 F L 92 H 16 105/55 L 99 - Systems Exam Head: Present: Atraumatic, Normocephalic. No: Tenderness, Contusion, Swelling, Ecchymosis, Abrasion, Laceration, Other Pupils: Present: PERRL Extroacular Muscles: Present: EOMI Conjunctiva: Present: Normal Ears: Present: NORMAL TM, Normal Canal. No: Erythema Mouth: Present: Moist Mucous Membranes Pharnyx: No: ERYTHEMA, EXUDATE, TONSILS ENLARGED, Uvular Deviation, Muffled/ Hoarse Voice, [place], Soft Palate/Uvular Edema Nose (External): Present: Atraumatic. No: Abrasion, Contusion, Laceration Nose (Internal): Present: Normal Inspection, No Active Bleeding. No: Rhinorrhea , Septal Deviation, Septal Hematoma, Epistaxis Neck: Present: Normal Range of Motion Respiratory/Chest: Present: Clear to Auscultation, Good Air Exchange. No: Respiratory Distress, Accessory Muscle Use Cardiovascular: Present: Regular Rate and Rhythm, Normal S1, S2. No: Murmurs Abdomen: Present: Normal Bowel Sounds. No: Tenderness, Distention, Peritoneal Signs, Rebound, Guarding Back: Present: Normal Inspection Upper Extremity: Present: Normal Inspection. No: Cyanosis, Edema Lower Extremity: Present: Normal Inspection. No: Edema Neurological: Present: GCS=15, Speech Normal, Motor Func Grossly Intact, Gait Normal, Memory Normal Skin: Present: Warm, Dry, Normal Color. No: Rashes Psychiatric: Present: Alert, Oriented x 3, Normal Insight, Normal Concentration Medical Decision Making ED Course and Treatment: 02/15/17 10:24 -labs/ua -ED observe and reassess - Lab Interpretations I have reviewed the lab results: Yes Interpretation: Abnormal lab values (chronic elevation LFT and anemia) ED OBSERVATION Discharge: Yes Date of observation admission: 02/15/17 Time of observation admission: 10:25 - Observation admission statement Patient is being placed in observation because:: etoh intoxication - Goals of Observation Goals of observation are:: sober - Progress Note Progress Note: 02/15/17 10:25 -pt. refused alcohol detox and refused PES -will obtain labs and observe the patient until he is sober. 02/15/17 11:54 -Labs are non-significant except chronic elevation LFT and anemia 02/15/17 18:47 -Pt. is awake now, sobered, walking with normal gait and posture, food given, eating and drinking well, will discharge home. -Discharge home with education on stop drinking, stay hydrated, bed rest, follow up with your own pmd within 2 days, return to the ER for any new or worsening signs or symptoms. - PA / [employer] / Resident Statement MD/DO has reviewed & agrees with the documentation as recorded. Disposition/Present on Arrival - Present on Arrival Any Indicators Present on Arrival: No History of DVT/PE: No History of Uncontrolled Diabetes: No Urinary Catheter: No History of Decub. Ulcer: No History Surgical Site Infection Following: None - Disposition Have Diagnosis and Disposition been Completed?: Yes Diagnosis: Alcohol abuse, Alcohol dependence Disposition: HOME/ ROUTINE Disposition Time: 18:48 Patient Plan: Discharge Patient Problems: Current Active Problems Problem Status Diagnosed Alcohol dependence Acute Alcohol abuse Chronic Abdominal pain Resolved Lactic acidosis Resolved Alcohol intoxication Resolved Alcohol withdrawal Resolved Hypomagnesemia Resolved Condition: IMPROVED
[2017-02-15 10:49] LABS: ADD MANUAL DIFF? NO
[2017-02-15 10:58] LABS: BASO # 0.08 K/mm3 (0.0-2.0); BASO % 0.9 % (0.0-3.0); EOS % 0.4 % (1.5-5.0); GRAN # 5.56 (1.4-6.5); GRAN % 60.2 % (50.0-68.0); LYMPH # 2.8 (1.2-3.4); LYMPH % 30.5 % (22.0-35.0); MEAN CORPUSCULAR HEMOGLOBIN 35.7 pg (25.0-35.0); MEAN CORPUSCULAR HGB CONC 34.4 g/dl (31.0-37.0); MEAN PLATELET VOLUME 10.2 fl (7.0-11.0); MONO # 0.7 (0.1-0.6); PLATELET COUNT 223 10^3/uL (120.0-450.0); RED CELL DISTRIBUTION WIDTH 13.4 % (11.5-14.5); URINE APPEARANCE CLEAR (CLEAR); URINE BILIRUBIN NEGATIVE (NEGATIVE); URINE BLOOD NEGATIVE (NEGATIVE); URINE COLOR YELLOW (YELLOW); URINE GLUCOSE (UA) NEGATIVE (NEGATIVE); URINE KETONE NEGATIVE (NEGATIVE); URINE LEUKOCYTE ESTERASE NEGATIVE Leu/uL (NEGATIVE); URINE PROTEIN NEGATIVE mg/dL (<30 mg/dL); URINE UROBILINOGEN 0.2 E.U./dL (<1 E.U./dL); WHITE BLOOD COUNT 9.2 10^3/ul (4.5-11.0)
[2017-02-15 11:03] VITALS: RESP 16; TEMP 97.5
[2017-02-15 11:11] LABS: ALB/GLOB RATIO 0.8 (1.1-1.8); ALKALINE PHOSPHATASE 328 U/L (38-133); ALT/SGPT 55 U/L (7-56); AST/SGOT 237 U/L (15-59); BILIRUBIN,TOTAL 0.8 mg/dL (0.2-1.3); BLOOD UREA NITROGEN 13 mg/dL (7-21); CALCIUM 9.6 mg/dL (8.4-10.5); CARBON DIOXIDE 28 mmol/L (21-33); CHLORIDE 98 mmol/L (98-107); GFR AFRICAN-AMERICAN > 60; GLUCOSE,RANDOM 100 mg/dL (70-110); POTASSIUM 3.9 mmol/L (3.6-5.0); SODIUM 139 mmol/L (132-148); TOTAL PROTEIN 9.6 g/dL (5.8-8.3)
[2017-02-15 18:26] VITALS: BP 117/73; PULSE 92; O2SAT 99
== END 2017-02-15 18:48 | disposition home or self-care (01) ==
LOC: ED 10:09 → EROBSV 10:22
PROVIDERS: ADMIT Emergency Medicine; ATTEND Emergency Medicine
DX: F10.20 Alcohol dependence, uncomplicated (principal)
CPT/HCPCS: 80053; 81003; 85025; 99283; G0378

== ENCOUNTER 2017-02-15 22:02 | Emergency (ER) | payer MEDICAID, OTHER ==
[2017-02-15 22:50] VITALS: BMI 23.8
[2017-02-15 23:11] VITALS: BP 131/93; PULSE 96; RESP 15; TEMP 97.6; O2SAT 100
== END 2017-02-16 04:22 | disposition left against medical advice (07) ==
LOC: ED 22:02
DX: Z02.89 Encounter for other administrative examinations (principal); R10.9 Unspecified abdominal pain

== ENCOUNTER 2017-02-16 07:51 | Observation (INO) | payer MEDICAID, OTHER ==
[2017-02-16 07:51] VITALS: BMI 23.8
[2017-02-16 08:21] VITALS: RESP 17; TEMP 97.7
--- NOTE | 2017-02-16 08:24 | ED PDOC ---
Arrival/HPI - General Chief Complaint: Abdominal Pain Time Seen by Provider: 02/16/17 07:58 Historian: Patient - History of Present Illness Narrative History of Present Illness (Text): 02/16/17 08:24 46 year old male well known to the emergency department for alcohol abuse brought to the emergency department by EMS stating "I need a place to stay." Contrary to triage, patient has no other complaints at this time. Time/Duration: 24 hours Symptom Onset: Gradual Symptom Course: Unchanged Modifying Factors (Text): None Associated Symptoms (Text): None Past Medical History - Provider Review Nursing Documentation Reviewed: Yes - Infectious Disease Hx of Infectious Diseases: None - Tetanus Immunization Tetanus Immunization: Up to Date - Reproductive Currently : No - Past Medical History Past Medical History: No Previous - Cardiac Hx Cardiac Disorders: Yes Hx Hypertension: Yes - Pulmonary Hx Tuberculosis: No - Neurological HX Cerebrovascular Accident: No Hx Seizures: No - HEENT Hx HEENT Disorder: No - Renal Hx Renal Disorder: No - Endocrine/Metabolic Hx Endocrine Disorders: No - Hematological/Oncological Hx Cancer: No - Integumentary Hx Dermatological Disorder: No - Musculoskeletal/Rheumatological Hx Musculoskeletal Disorders: Yes Hx Back Pain: Yes Hx Falls: Yes - Gastrointestinal Hx Gastrointestinal Disorders: Yes (GASTRITIS,H/O GI BLEED,FATTY LIVER) Hx Pancreatitis: Yes - Genitourinary/Gynecological Hx Sexually Transmitted Diseases: No - Psychiatric Hx Psychophysiologic Disorder: Yes (DEPRESSION,HOMELESSNESS,SMOKES CIGARETTES 7 TO 1/2 PPD) Hx Depression: Yes Hx Substance Use: No Other/Comment: ETOH - Past Surgical History Past Surgical History: No Previous - Anesthesia Hx Anesthesia: Yes Hx Anesthesia Reactions: No Hx Malignant Hyperthermia: No - Suicidal Assessment Feels Threatened In Home Enviroment: No Family/Social History - Physician Review Nursing Documentation Reviewed: Yes Family/Social History: Unknown Family HX Smoking Status: Current Some Days Smoker Hx Alcohol Use: Yes (ETOH DAILY.DRINKS 24 OZ OF LUZ ICE 8-12 CNAS OF ANOTHER KIND OF BEER D) Frequency of alcohol use: Daily Hx Substance Use: No Hx Substance Use Treatment: No Allergies/Home Meds Allergies/Adverse Reactions: Allergies No Known Allergies Allergy (Verified 02/16/17 08:10) Home Medications: Home Meds Medication Instructions Recorded Confirmed No Known Home Med 02/13/17 02/16/17 Review of Systems - Physician Review All systems were reviewed & negative as marked: Yes - Review of Systems Respiratory: absent: SOB Cardiovascular: absent: Chest Pain Gastrointestinal: absent: Abdominal Pain Physical Exam Vital Signs Reviewed: Yes Vital Signs Temp Pulse Resp BP Pulse Ox 02/16/17 08:00 97.7 F 83 17 139/97 H 97 Temperature: Afebrile Blood Pressure: Normal Pulse: Regular Respiratory Rate: Normal Appearance: Positive for: Well-Appearing, Non-Toxic, Comfortable Pain Distress: None Mental Status: Positive for: Alert and Oriented X 3 - Systems Exam Head: Present: Atraumatic, Normocephalic Pupils: Present: PERRL Extroacular Muscles: Present: EOMI Conjunctiva: Present: Normal Mouth: Present: Moist Mucous Membranes Neck: Present: Normal Range of Motion Respiratory/Chest: Present: Clear to Auscultation, Good Air Exchange. No: Respiratory Distress, Accessory Muscle Use Cardiovascular: Present: Regular Rate and Rhythm, Normal S1, S2. No: Murmurs Abdomen: Present: Normal Bowel Sounds. No: Tenderness, Distention, Peritoneal Signs Back: Present: Normal Inspection Upper Extremity: Present: Normal Inspection. No: Cyanosis, Edema Lower Extremity: Present: Normal Inspection. No: Edema Neurological: Present: GCS=15, CN II-XII Intact, Speech Normal Skin: Present: Warm, Dry, Normal Color. No: Rashes Psychiatric: Present: Alert, Oriented x 3, Normal Insight, Normal Concentration Medical Decision Making ED Course and Treatment: Impression: 46 year old male, well known to the ER for alcohol abuse presents to the emergency department stating "I need a place to stay." Plan: -- Monitor patient -- Reassess and disposition Prior Visits: Notes and results from previous visits were reviewed. Patient was last seen on 02/15/17 for alcohol intoxication and discharged. Progress Notes: 02/16/17 11:11 pt sleeping comfortably, in nad. took po. abd soft nottp ED OBSERVATION Date of observation admission: 02/16/17 Time of observation admission: 08:23 - Observation admission statement Patient is being placed in observation because:: homeless, observation - Goals of Observation Goals of observation are:: monitor patient in emergency department. - Progress Note Progress Note: 02/16/17 08:23 On initial exam patient is resting comfortably, denies any complaints. 02/16/17 10:23 Patient sleeping comfortably, in no acute distress. 02/16/17 12:21 Patient is awake, alert, ambulatory with steady gait. Patient states he is ready to be discharged. - Scribe Statement The provider has reviewed the documentation as recorded by the Debbie Mora Provider Scribe Attestation: All medical record entries made by the Tedibaudi were at my direction and personally dictated by me. I have reviewed the chart and agree that the record accurately reflects my personal performance of the history, physical exam, medical decision making, and the department course for this patient. I have also personally directed, reviewed, and agree with the discharge instructions and disposition. Disposition/Present on Arrival - Present on Arrival Any Indicators Present on Arrival: No History of DVT/PE: No History of Uncontrolled Diabetes: No Urinary Catheter: No History of Decub. Ulcer: No History Surgical Site Infection Following: None - Disposition Have Diagnosis and Disposition been Completed?: Yes Diagnosis: Homeless Disposition: HOME/ ROUTINE Disposition Time: 08:23 Patient Problems: Current Active Problems Problem Status Diagnosed Homeless Chronic Abdominal pain Resolved Lactic acidosis Resolved Alcohol intoxication Resolved Alcohol withdrawal Resolved Hypomagnesemia Resolved Condition: STABLE
[2017-02-16 12:46] VITALS: BP 130/75; PULSE 80; O2SAT 98
== END 2017-02-16 12:46 | disposition home or self-care (01) ==
LOC: ED 07:51 → EROBSV 08:28
PROVIDERS: ADMIT Student in an Organized Health Care Education/Training Program; ATTEND Student in an Organized Health Care Education/Training Program
DX: Z59.0 Homelessness (principal)
CPT/HCPCS: 99283; G0378

== ENCOUNTER 2017-02-16 15:54 | Emergency (ER) | payer MEDICAID ==
[2017-02-16 17:15] VITALS: BP 158/83; PULSE 97; RESP 18; TEMP 98.4; O2SAT 97
[2017-02-17 10:32] VITALS: BMI 24.3
== END 2017-02-16 18:13 | disposition left against medical advice (07) ==
LOC: ED 15:54
DX: Z02.89 Encounter for other administrative examinations (principal); R10.9 Unspecified abdominal pain

== ENCOUNTER 2017-02-16 21:04 | Observation (INO) | payer MEDICAID ==
[2017-02-16 21:46] VITALS: BMI 29.0
[2017-02-16 22:28] VITALS: PULSE 82; TEMP 98; O2SAT 98
--- NOTE | 2017-02-17 01:08 | ED PDOC ---
Arrival/HPI - General Chief Complaint: Alcohol Ingestion Time Seen by Provider: 02/16/17 21:17 Historian: Patient - History of Present Illness Narrative History of Present Illness (Text): 02/16/17 21:40 Angelo Mccormick is a 46 year old male, whose past medical history includes alcohol abuse, was brought into the emergency department by EMS for public intoxication. Patient admits to drinking alcohol tonight. Patient is well-known to Emergency room staff and has been seen on multiple occasions for similar complaints. Patient was seen earlier today and discharged. Patient denies any fever, chills, chest pain, shortness of breath, nausea, vomiting, diarrhea, urinary symptoms, back pain, neck pain, headache, dizziness, or any other complaints. Time/Duration: Other (tonight) Symptom Onset: Gradual Symptom Course: Unchanged Activities at Onset: Light Context: Street Past Medical History - Provider Review Nursing Documentation Reviewed: Yes - Infectious Disease Hx of Infectious Diseases: None - Tetanus Immunization Tetanus Immunization: Up to Date - Reproductive Currently : No - Past Medical History Past Medical History: No Previous - Cardiac Hx Cardiac Disorders: Yes Hx Hypertension: Yes - Pulmonary Hx Tuberculosis: No - Neurological HX Cerebrovascular Accident: No Hx Seizures: No - HEENT Hx HEENT Disorder: No - Renal Hx Renal Disorder: No - Endocrine/Metabolic Hx Endocrine Disorders: No - Hematological/Oncological Hx Cancer: No - Integumentary Hx Dermatological Disorder: No - Musculoskeletal/Rheumatological Hx Musculoskeletal Disorders: Yes Hx Back Pain: Yes Hx Falls: Yes - Gastrointestinal Hx Gastrointestinal Disorders: Yes (GASTRITIS,H/O GI BLEED,FATTY LIVER) Hx Pancreatitis: Yes - Genitourinary/Gynecological Hx Sexually Transmitted Diseases: No - Psychiatric Hx Psychophysiologic Disorder: Yes (DEPRESSION,HOMELESSNESS,SMOKES CIGARETTES 7 TO 1/2 PPD) Hx Depression: Yes Hx Substance Use: No Other/Comment: ETOH - Past Surgical History Past Surgical History: No Previous - Anesthesia Hx Anesthesia: Yes Hx Anesthesia Reactions: No Hx Malignant Hyperthermia: No - Suicidal Assessment Feels Threatened In Home Enviroment: No Family/Social History - Physician Review Nursing Documentation Reviewed: Yes Family/Social History: No Known Family HX Smoking Status: Current Some Days Smoker Hx Alcohol Use: Yes (ETOH DAILY.DRINKS 24 OZ OF LUZ ICE 8-12 CNAS OF ANOTHER KIND OF BEER D) Hx Substance Use: No Hx Substance Use Treatment: No Allergies/Home Meds Allergies/Adverse Reactions: Allergies No Known Allergies Allergy (Verified 02/16/17 21:46) Home Medications: Home Meds Medication Instructions Recorded Confirmed No Known Home Med 02/13/17 02/16/17 Review of Systems - Physician Review All systems were reviewed & negative as marked: Yes - Review of Systems Constitutional: Normal. absent: Fevers Eyes: Normal ENT: Normal Respiratory: Normal. absent: SOB, Cough Cardiovascular: Normal. absent: Chest Pain Gastrointestinal: Normal. absent: Abdominal Pain, Diarrhea, Nausea, Vomiting Genitourinary Male: Normal. absent: Dysuria, Frequency, Hematuria, Urinary Output Changes Musculoskeletal: Normal. absent: Back Pain, Neck Pain Skin: Normal. absent: Rash Neurological: Normal. absent: Headache, Dizziness Endocrine: Normal Hemo/Lymphatic: Normal Psychiatric: Normal Physical Exam Vital Signs Reviewed: Yes Vital Signs Temp Pulse Resp BP Pulse Ox 02/16/17 21:15 98 F 82 14 131/75 98 Temperature: Afebrile Blood Pressure: Normal Pulse: Regular Respiratory Rate: Normal Appearance: Positive for: Well-Appearing, Non-Toxic, Comfortable Pain Distress: None Mental Status: Positive for: Alert and Oriented X 3 - Systems Exam Head: Present: Atraumatic, Normocephalic Pupils: Present: PERRL Extroacular Muscles: Present: EOMI Conjunctiva: Present: Normal Mouth: Present: Moist Mucous Membranes Neck: Present: Normal Range of Motion Respiratory/Chest: Present: Clear to Auscultation, Good Air Exchange. No: Respiratory Distress, Accessory Muscle Use Cardiovascular: Present: Regular Rate and Rhythm, Normal S1, S2. No: Murmurs Abdomen: Present: Normal Bowel Sounds. No: Tenderness, Distention, Peritoneal Signs Back: Present: Normal Inspection Upper Extremity: Present: Normal Inspection. No: Cyanosis, Edema Lower Extremity: Present: Normal Inspection. No: Edema Neurological: Present: GCS=15, CN II-XII Intact, Speech Normal Skin: Present: Warm, Dry, Normal Color. No: Rashes Psychiatric: Present: Alert, Oriented x 3, Normal Insight, Normal Concentration Medical Decision Making ED Course and Treatment: 02/16/17 21:40 Impression: 46 year old male brought in for alcohol intoxication tonight. Differential Diagnosis include but are not limited to: alcohol intoxication Plan: -- Reassess and disposition Prior Visits: Notes and results from previous visits were reviewed. Pt is well known to Emergency room staff and has been seen on multiple occasions for similar complaints. ED OBSERVATION Discharge: Yes Date of observation admission: 02/17/17 Time of observation admission: 22:00 - Observation admission statement Patient is being placed in observation because:: alcohol intoxication - Goals of Observation Goals of observation are:: sobriety - Progress Note Progress Note: 02/16/17 22:00 Pt resting comfortably, no new complaints. 02/17/17 00:00 Pt sleeping currently, in no acute distress. 02/17/17 02:00 Pt resting comfortably, no new complaints. 02/17/17 04:00 Pt sleeping currently, in no acute distress. 02/17/17 04:48 Notified by RN pt eloped from ER. - Scribe Statement The provider has reviewed the documentation as recorded by the Debbie Jackman Provider Attestation: All medical record entries made by the Debbie were at my direction and personally dictated by me. I have reviewed the chart and agree that the record accurately reflects my personal performance of the history, physical exam, medical decision making, and the department course for this patient. I have also personally directed, reviewed, and agree with the discharge instructions and disposition. Disposition/Present on Arrival - Present on Arrival Any Indicators Present on Arrival: No History of DVT/PE: No History of Uncontrolled Diabetes: No Urinary Catheter: No History of Decub. Ulcer: No History Surgical Site Infection Following: None - Disposition Have Diagnosis and Disposition been Completed?: Yes Diagnosis: Alcohol abuse Disposition: ELOPEMENT - ER ONLY Disposition Time: 04:50 Patient Problems: Current Active Problems Problem Status Diagnosed Homeless Chronic Abdominal pain Resolved Lactic acidosis Resolved Alcohol intoxication Resolved Alcohol withdrawal Resolved Hypomagnesemia Resolved Condition: UNKNOWN
[2017-02-17 05:06] VITALS: BP 129/70; RESP 16
== END 2017-02-17 04:50 | disposition home or self-care (01) ==
LOC: ED 21:04 → EROBSV 22:00
PROVIDERS: ADMIT Emergency Medicine; ATTEND Emergency Medicine
DX: F10.10 Alcohol abuse, uncomplicated (principal)
CPT/HCPCS: 99282; G0378

== ENCOUNTER 2017-02-17 10:22 | Observation (INO) | payer MEDICAID ==
[2017-02-17 10:32] VITALS: BMI 24.3
[2017-02-17 10:54] VITALS: TEMP 97.6
[2017-02-17] MEDS ORDERED: Sodium Chloride 0.9% 1,000 ML IV STA (11:03)
[2017-02-17 11:38] LABS: INR 1.24 (0.93-1.08); PARTIAL THROMBOPLASTIN TIME 30.1 Seconds (23.7-30.8)
[2017-02-17 11:39] LABS: ALB/GLOB RATIO 0.8 (1.1-1.8); ALKALINE PHOSPHATASE 340 U/L (38-133); ALT/SGPT 68 U/L (7-56); AST/SGOT 259 U/L (15-59); BILIRUBIN,TOTAL 0.9 mg/dL (0.2-1.3); BLOOD UREA NITROGEN 14 mg/dL (7-21); CALCIUM 9.4 mg/dL (8.4-10.5); CARBON DIOXIDE 26 mmol/L (21-33); CHLORIDE 99 mmol/L (98-107); GFR AFRICAN-AMERICAN > 60; GLUCOSE,RANDOM 90 mg/dL (70-110); LIPASE 182 U/L (23-300); POTASSIUM 3.8 mmol/L (3.6-5.0); SODIUM 138 mmol/L (132-148); TOTAL PROTEIN 9.6 g/dL (5.8-8.3)
--- NOTE | 2017-02-17 12:00 | ED PDOC ---
Arrival/HPI - General Chief Complaint: Abdominal Pain Time Seen by Provider: 02/17/17 10:23 Historian: Patient - History of Present Illness Narrative History of Present Illness (Text): 02/17/17 11:52 Angelo Mccormick is a 46 year old male, whose past history includes alcohol abuse and pancreatitis, presents to the emergency department complaining of diffuse abdominal pain. Patient admits to drinking alcohol earlier today. Patient presented to ed numerous times in the past for ETOH intoxication and is well known to ED staff. Denies any vomiting, or diarrhea. Denies fever, chills, headache, dizziness, chest pain, shortness of breath, urinary symptoms or any other complaints at this time. Time/Duration: 4-6 hours Symptom Onset: Gradual Symptom Course: Unchanged Severity Level: Mild Activities at Onset: Light Past Medical History - Provider Review Nursing Documentation Reviewed: Yes - Infectious Disease Hx of Infectious Diseases: None - Tetanus Immunization Tetanus Immunization: Up to Date - Reproductive Currently : No - Past Medical History Past Medical History: No Previous - Cardiac Hx Cardiac Disorders: Yes Hx Hypertension: Yes - Pulmonary Hx Tuberculosis: No - Neurological HX Cerebrovascular Accident: No Hx Seizures: No - HEENT Hx HEENT Disorder: No - Renal Hx Renal Disorder: No - Endocrine/Metabolic Hx Endocrine Disorders: No - Hematological/Oncological Hx Cancer: No - Integumentary Hx Dermatological Disorder: No - Musculoskeletal/Rheumatological Hx Musculoskeletal Disorders: Yes Hx Back Pain: Yes Hx Falls: Yes - Gastrointestinal Hx Gastrointestinal Disorders: Yes (GASTRITIS,H/O GI BLEED,FATTY LIVER) Hx Pancreatitis: Yes - Genitourinary/Gynecological Hx Sexually Transmitted Diseases: No - Psychiatric Hx Psychophysiologic Disorder: Yes (DEPRESSION,HOMELESSNESS,SMOKES CIGARETTES 7 TO 1/2 PPD) Hx Depression: Yes Hx Substance Use: No Other/Comment: ETOH - Past Surgical History Past Surgical History: No Previous - Anesthesia Hx Anesthesia: Yes Hx Anesthesia Reactions: No Hx Malignant Hyperthermia: No - Suicidal Assessment Feels Threatened In Home Enviroment: No Family/Social History - Physician Review Nursing Documentation Reviewed: Yes Family/Social History: No Known Family HX Smoking Status: Current Some Days Smoker Hx Alcohol Use: Yes (ETOH DAILY.DRINKS 24 OZ OF LUZ ICE 8-12 CNAS OF ANOTHER KIND OF BEER D) Hx Substance Use: No Hx Substance Use Treatment: No Allergies/Home Meds Allergies/Adverse Reactions: Allergies No Known Allergies Allergy (Verified 02/16/17 21:46) Home Medications: Home Meds Medication Instructions Recorded Confirmed No Known Home Med 02/13/17 02/16/17 Review of Systems - Physician Review All systems were reviewed & negative as marked: Yes - Review of Systems Constitutional: Normal. absent: Fatigue, Fevers Respiratory: absent: SOB, Cough Cardiovascular: absent: Chest Pain Gastrointestinal: Abdominal Pain. absent: Diarrhea, Nausea, Vomiting Neurological: Normal. absent: Headache, Dizziness Physical Exam Vital Signs Reviewed: Yes Vital Signs Temp Pulse Resp BP Pulse Ox 02/17/17 13:19 98 H 18 96/47 L 98 02/17/17 10:53 97.6 F 86 18 124/85 96 Temperature: Afebrile Blood Pressure: Normal Pulse: Regular Respiratory Rate: Normal Appearance: Positive for: Comfortable Pain Distress: None Mental Status: Positive for: Alert and Oriented X 3 - Systems Exam Head: Present: Atraumatic, Normocephalic Pupils: Present: PERRL Conjunctiva: Present: Normal Respiratory/Chest: Present: Clear to Auscultation, Good Air Exchange. No: Respiratory Distress, Accessory Muscle Use Cardiovascular: Present: Regular Rate and Rhythm, Normal S1, S2. No: Murmurs Abdomen: Present: Tenderness (epigastric tenderness ), Normal Bowel Sounds. No : Distention, Peritoneal Signs Neurological: Present: GCS=15, CN II-XII Intact, Speech Normal Skin: Present: Warm, Dry, Normal Color. No: Rashes Psychiatric: Present: Alert, Oriented x 3 Medical Decision Making ED Course and Treatment: 02/17/17 12:01 Impression: A 46 year old male who presents to the ed complaining of diffuse abdominal pain. Patient admits to drinking alcohol earlier today. Plan: -- Labs -- Pepcid -- IV fluids -- Urinalysis -- Reassess and disposition Progress Notes: 02/17/17 15:02 pt observed in er. taking po. sleeping throughout ed stay. ambuatlroy with steady gait. labs unremarkable. abd soft. takingpo. stable for d.c - Lab Interpretations Lab Results: 02/17/17 11:30 02/17/17 11:08 Lab Results 02/17/17 11:30: WBC 7.3 D, RBC 3.61, Hgb 13.0 L, Hct 37.3 L, MCV 103.3, MCH 36.0 H, MCHC 34.9, RDW 13.2, Plt Count 260, MPV 10.1, Gran % 52.2, Lymph % (Auto ) 40.8 H, Arroyo % (Auto) 5.5, Eos % (Auto) 0.7 L, Baso % (Auto) 0.8, Gran # 3.82 , Lymph # 3.0, Arroyo # 0.4, Eos # 0.1, Baso # 0.06 02/17/17 11:08: PT 13.4 H, INR 1.24 H, APTT 30.1, Sodium 138, Potassium 3.8, Chloride 99, Carbon Dioxide 26, Anion Gap 17, BUN 14, Creatinine 0.7, Est GFR ( Amer) > 60, Est GFR (Non-Af Amer) > 60, Random Glucose 90, Calcium 9.4, Total Bilirubin 0.9, AST 259 H, ALT 68 H, Alkaline Phosphatase 340 H, Total Protein 9.6 H, Albumin 4.3, Globulin 5.3, Albumin/Globulin Ratio 0.8 L, Lipase 182 - Medication Orders Current Medication Orders: Discontinued Medications Famotidine (Pepcid) 20 mg IVP STAT STA Stop: 02/17/17 11:04 Last Admin: 02/17/17 11:38 Dose: 20 MG IVP Administration Document 02/17/17 11:38 SF (Rec: 02/17/17 11:38 SF [id number]) Charges for Administration # of IVP Administrations 1 Sodium Chloride (Sodium Chloride 0.9%) 1,000 mls @ 999 mls/hr IV .Q1H1M STA Stop: 02/17/17 12:03 Last Admin: 02/17/17 11:38 Dose: 999 MLS/HR eMAR Start Stop Document 02/17/17 11:38 SF (Rec: 02/17/17 11:38 SF [id number]) Intravenous Solution Start Date 02/17/17 Start Time 11:38 End Date 02/17/17 End time 12:39 Total Infusion Time 61 - Scribe Statement The provider has reviewed the documentation as recorded by the Debbie Chong Provider Attestation: All medical record entries made by the Tedibaudi were at my direction and personally dictated by me. I have reviewed the chart and agree that the record accurately reflects my personal performance of the history, physical exam, medical decision making, and the department course for this patient. I have also personally directed, reviewed, and agree with the discharge instructions and disposition. Disposition/Present on Arrival - Present on Arrival Any Indicators Present on Arrival: No History of DVT/PE: No History of Uncontrolled Diabetes: No Urinary Catheter: No History of Decub. Ulcer: No History Surgical Site Infection Following: None - Disposition Have Diagnosis and Disposition been Completed?: Yes Diagnosis: Homeless Disposition: HOME/ ROUTINE Disposition Time: 15:03 Patient Problems: Current Active Problems Problem Status Diagnosed Homeless Chronic Abdominal pain Resolved Lactic acidosis Resolved Alcohol intoxication Resolved Alcohol withdrawal Resolved Hypomagnesemia Resolved Condition: STABLE
[2017-02-17 12:11] LABS: ADD MANUAL DIFF? NO
[2017-02-17 12:15] LABS: BASO # 0.06 K/mm3 (0.0-2.0); BASO % 0.8 % (0.0-3.0); EOS # 0.1 (0.0-0.7); EOS % 0.7 % (1.5-5.0); GRAN # 3.82 (1.4-6.5); GRAN % 52.2 % (50.0-68.0); HEMATOCRIT 37.3 % (42.0-52.0); LYMPH % 40.8 % (22.0-35.0); MEAN CELL VOLUME 103.3 fL (80.0-105.0); MEAN CORPUSCULAR HGB CONC 34.9 g/dl (31.0-37.0); MEAN PLATELET VOLUME 10.1 fl (7.0-11.0); MONO # 0.4 (0.1-0.6); MONO % 5.5 % (1.0-6.0); PLATELET COUNT 260 10^3/uL (120.0-450.0); RED CELL DISTRIBUTION WIDTH 13.2 % (11.5-14.5); WHITE BLOOD COUNT 7.3 10^3/ul (4.5-11.0)
[2017-02-17 15:21] VITALS: BP 101/65; PULSE 90; RESP 17; O2SAT 97
== END 2017-02-17 15:01 | disposition home or self-care (01) ==
LOC: ED 10:22 → EROBSV 13:01
PROVIDERS: ADMIT Student in an Organized Health Care Education/Training Program; ATTEND Student in an Organized Health Care Education/Training Program
DX: Z59.0 Homelessness (principal)
CPT/HCPCS: 80053; 83690; 85025; 85610; 85730; 96361; 96374; 99285; G0378; J7040

== ENCOUNTER 2017-02-17 17:40 | Emergency (ER) | payer MEDICAID ==
[2017-02-17 17:47] VITALS: BP 108/71; PULSE 91; RESP 18; TEMP 97.8; O2SAT 97
[2017-02-17 17:57] VITALS: BMI 24.7
== END 2017-02-17 19:01 | disposition left against medical advice (07) ==
LOC: ED 17:40
DX: Z02.89 Encounter for other administrative examinations (principal); F10.129 Alcohol abuse with intoxication, unspecified

== ENCOUNTER 2017-02-17 20:36 | Observation (INO) | payer MEDICAID ==
[2017-02-17 20:58] VITALS: BMI 28.3
[2017-02-17 21:04] VITALS: BP 138/82; PULSE 90; RESP 16; TEMP 99; O2SAT 98
--- NOTE | 2017-02-17 21:49 | ED PDOC ---
Arrival/HPI - General Chief Complaint: Alcohol Ingestion Time Seen by Provider: 02/17/17 20:43 Historian: Patient - History of Present Illness Narrative History of Present Illness (Text): 02/17/17 21:30 Angelo Mccormick is a 46 year old male, whose past medical history includes alcohol abuse, was brought into the emergency department by EMS for public intoxication. Patient was found in a store inebriated and admits to drinking alcohol tonight. Patient is well-known to Emergency room staff and has been seen on multiple occasions for similar complaints. Patient was seen in the ER earlier today and discharged. Patient denies any fever, chills, chest pain, shortness of breath, nausea, vomiting, diarrhea, urinary symptoms, back pain, neck pain, headache, dizziness, or any other complaints. Time/Duration: Other (tonight) Symptom Onset: Gradual Symptom Course: Unchanged Activities at Onset: Rest, Light Context: Home Past Medical History - Provider Review Nursing Documentation Reviewed: Yes - Infectious Disease Hx of Infectious Diseases: None - Tetanus Immunization Tetanus Immunization: Up to Date - Reproductive Currently : No - Past Medical History Past Medical History: No Previous - Cardiac Hx Cardiac Disorders: Yes Hx Hypertension: Yes - Pulmonary Hx Tuberculosis: No - Neurological HX Cerebrovascular Accident: No Hx Seizures: No - HEENT Hx HEENT Disorder: No - Renal Hx Renal Disorder: No - Endocrine/Metabolic Hx Endocrine Disorders: No - Hematological/Oncological Hx Cancer: No - Integumentary Hx Dermatological Disorder: No - Musculoskeletal/Rheumatological Hx Musculoskeletal Disorders: Yes Hx Back Pain: Yes Hx Falls: Yes - Gastrointestinal Hx Gastrointestinal Disorders: Yes (GASTRITIS,H/O GI BLEED,FATTY LIVER) Hx Pancreatitis: Yes - Genitourinary/Gynecological Hx Sexually Transmitted Diseases: No - Psychiatric Hx Psychophysiologic Disorder: Yes (DEPRESSION,HOMELESSNESS,SMOKES CIGARETTES 7 TO 1/2 PPD) Hx Depression: Yes Hx Substance Use: No Other/Comment: ETOH - Past Surgical History Past Surgical History: No Previous - Anesthesia Hx Anesthesia: Yes Hx Anesthesia Reactions: No Hx Malignant Hyperthermia: No - Suicidal Assessment Feels Threatened In Home Enviroment: No Family/Social History - Physician Review Nursing Documentation Reviewed: Yes Family/Social History: No Known Family HX Smoking Status: Current Some Days Smoker Hx Alcohol Use: Yes (ETOH DAILY.DRINKS 24 OZ OF LUZ ICE 8-12 CNAS OF ANOTHER KIND OF BEER D) Hx Substance Use: No Hx Substance Use Treatment: No Allergies/Home Meds Allergies/Adverse Reactions: Allergies No Known Allergies Allergy (Verified 02/18/17 10:56) Home Medications: Home Meds Medication Instructions Recorded Confirmed No Known Home Med 02/13/17 02/18/17 Review of Systems - Physician Review All systems were reviewed & negative as marked: Yes - Review of Systems Constitutional: Normal. absent: Fevers Eyes: Normal ENT: Normal Respiratory: Normal. absent: SOB, Cough Cardiovascular: Normal. absent: Chest Pain Gastrointestinal: Normal. absent: Abdominal Pain, Diarrhea, Nausea, Vomiting Genitourinary Male: Normal. absent: Dysuria, Frequency, Hematuria, Urinary Output Changes Musculoskeletal: Normal. absent: Back Pain, Neck Pain Skin: Normal. absent: Rash Neurological: Normal. absent: Headache, Dizziness Endocrine: Normal Hemo/Lymphatic: Normal Psychiatric: Normal Physical Exam Vital Signs Reviewed: Yes Vital Signs Temp Pulse Resp BP Pulse Ox 02/17/17 21:03 99.0 F 90 16 138/82 98 Temperature: Afebrile Blood Pressure: Normal Pulse: Regular Respiratory Rate: Normal Appearance: Positive for: Well-Appearing, Non-Toxic, Comfortable Pain Distress: None Mental Status: Positive for: Alert and Oriented X 3 - Systems Exam Head: Present: Atraumatic, Normocephalic Pupils: Present: PERRL Extroacular Muscles: Present: EOMI Conjunctiva: Present: Normal Mouth: Present: Moist Mucous Membranes Neck: Present: Normal Range of Motion Respiratory/Chest: Present: Clear to Auscultation, Good Air Exchange. No: Respiratory Distress, Accessory Muscle Use Cardiovascular: Present: Regular Rate and Rhythm, Normal S1, S2. No: Murmurs Abdomen: Present: Normal Bowel Sounds. No: Tenderness, Distention, Peritoneal Signs Back: Present: Normal Inspection Upper Extremity: Present: Normal Inspection. No: Cyanosis, Edema Lower Extremity: Present: Normal Inspection. No: Edema Neurological: Present: GCS=15, CN II-XII Intact, Speech Normal Skin: Present: Warm, Dry, Normal Color. No: Rashes Psychiatric: Present: Alert, Oriented x 3, Normal Insight, Normal Concentration Medical Decision Making ED Course and Treatment: 02/17/17 21:30 Impression: 46 year old male brought in for alcohol intoxication tonight. Differential Diagnosis include but are not limited to: alcohol intoxication Plan: -- Reassess and disposition Prior Visits: Notes and results from previous visits were reviewed. Pt is well known to Emergency room staff and has been seen on multiple occasions for similar complaints. ED OBSERVATION Discharge: Yes Date of observation admission: 02/17/17 Time of observation admission: 21:30 - Observation admission statement Patient is being placed in observation because:: alcohol intoxication - Goals of Observation Goals of observation are:: sobriety - Progress Note Progress Note: 02/17/17 21:30 Pt brought in for public intoxication. Will observe pending sobriety. 02/17/17 23:30 Pt resting comfortably, no new complaints. 02/18/17 01:30 Pt sleeping currently, in no acute distress. 02/18/17 03:30 Pt resting comfortably, no new complaints. 02/18/17 04:27 RN reports patient eloped from ER without announcing. - Scribe Statement The provider has reviewed the documentation as recorded by the Debbie Jackman Provider Attestation: All medical record entries made by the Tedibaudi were at my direction and personally dictated by me. I have reviewed the chart and agree that the record accurately reflects my personal performance of the history, physical exam, medical decision making, and the department course for this patient. I have also personally directed, reviewed, and agree with the discharge instructions and disposition. Disposition/Present on Arrival - Present on Arrival Any Indicators Present on Arrival: No History of DVT/PE: No History of Uncontrolled Diabetes: No Urinary Catheter: No History of Decub. Ulcer: No History Surgical Site Infection Following: None - Disposition Have Diagnosis and Disposition been Completed?: Yes Diagnosis: Alcohol dependence Disposition: ELOPEMENT - ER ONLY Disposition Time: 04:30 Patient Problems: Current Active Problems Problem Status Diagnosed Abdominal pain Resolved Lactic acidosis Resolved Alcohol intoxication Resolved Alcohol withdrawal Resolved Hypomagnesemia Resolved Condition: UNKNOWN
== END 2017-02-18 04:29 | disposition home or self-care (01) ==
LOC: ED 20:36 → EROBSV 21:30
PROVIDERS: ADMIT Emergency Medicine; ATTEND Emergency Medicine
DX: F10.20 Alcohol dependence, uncomplicated (principal); Z59.0 Homelessness; F17.210 Nicotine dependence, cigarettes, uncomplicated
CPT/HCPCS: 99281; G0378

== ENCOUNTER 2017-02-18 10:37 | Observation (INO) | payer MEDICAID ==
[2017-02-18 10:55] VITALS: BMI 27.3
[2017-02-18 10:58] VITALS: BP 121/78; PULSE 98; RESP 16; TEMP 98.3; O2SAT 98
--- NOTE | 2017-02-18 11:30 | ED PDOC ---
Arrival/HPI - General Chief Complaint: Alcohol Ingestion Time Seen by Provider: 02/18/17 11:26 - History of Present Illness Narrative History of Present Illness (Text): 02/18/17 11:27 Patient presents with slurring of speech and alcohol on breath. Admits to drinking throughout the day. Pt denies suicidal or homicidal ideations. Denies any trauma or injury. Past Medical History - Provider Review Nursing Documentation Reviewed: Yes - Infectious Disease Hx of Infectious Diseases: None - Tetanus Immunization Tetanus Immunization: Up to Date - Reproductive Currently : No - Past Medical History Past Medical History: No Previous - Cardiac Hx Cardiac Disorders: Yes Hx Hypertension: Yes - Pulmonary Hx Respiratory Disorders: No Hx Tuberculosis: No - Neurological Hx Neurological Disorder: No HX Cerebrovascular Accident: No Hx Seizures: No - HEENT Hx HEENT Disorder: No - Renal Hx Renal Disorder: No - Endocrine/Metabolic Hx Endocrine Disorders: No - Hematological/Oncological Hx Cancer: No - Integumentary Hx Dermatological Disorder: No - Musculoskeletal/Rheumatological Hx Musculoskeletal Disorders: Yes Hx Back Pain: Yes Hx Falls: Yes - Gastrointestinal Hx Gastrointestinal Disorders: Yes (GASTRITIS,H/O GI BLEED,FATTY LIVER) Hx Pancreatitis: Yes - Genitourinary/Gynecological Hx Genitourinary Disorders: No Hx Sexually Transmitted Diseases: No - Psychiatric Hx Psychophysiologic Disorder: Yes (DEPRESSION,HOMELESSNESS,SMOKES CIGARETTES 7 TO 1/2 PPD) Hx Depression: Yes Hx Substance Use: No Other/Comment: ETOH - Past Surgical History Past Surgical History: No Previous - Anesthesia Hx Anesthesia: Yes Hx Anesthesia Reactions: No Hx Malignant Hyperthermia: No - Suicidal Assessment Feels Threatened In Home Enviroment: No Family/Social History Family/Social History: Unknown Family HX Smoking Status: Current Some Days Smoker Hx Alcohol Use: Yes Frequency of alcohol use: Daily Hx Substance Use: No Hx Substance Use Treatment: No Allergies/Home Meds Allergies/Adverse Reactions: Allergies No Known Allergies Allergy (Verified 02/18/17 10:56) Home Medications: Home Meds Medication Instructions Recorded Confirmed No Known Home Med 02/13/17 02/18/17 Review of Systems - Review of Systems Systems not reviewed;Unavailable: Intoxicated Physical Exam - Physical Exam Narrative Physical Exam (Text): 02/18/17 11:28 pt in no distress, no airway compromise, breathing without difficulty, good insp /exp effort. No signs of head/torso/extremity trauma. Following commands without difficulty. Head: Present: Atraumatic, Normocephalic. No: Tenderness, Contusion, Swelling, Ecchymosis, Abrasion, Laceration Pupils: Present: PERRL Extroacular Muscles: Present: EOMI Conjunctiva: Present: Normal Mouth: Present: Moist Mucous Membranes Neck: Present: Normal Range of Motion. No: MIDLINE TENDERNESS, Paraspinal Tenderness Respiratory/Chest: Present: Clear to Auscultation, Good Air Exchange. No: Respiratory Distress, Accessory Muscle Use Cardiovascular: Present: Regular Rate and Rhythm, Normal S1, S2. No: Murmurs Abdomen: Present: Normal Bowel Sounds. No: Tenderness, Distention, Peritoneal Signs, Rebound, Guarding Back: Present: Normal Inspection. No: Midline Tenderness, Paraspinal Tenderness Upper Extremity: Present: Normal Inspection. No: Cyanosis, Edema Lower Extremity: Present: Normal Inspection. No: Edema Neurological: Present: GCS=15, CN II-XII Intact Skin: Present: Warm, Dry, Normal Color. No: Rashes Lymphatic: Present: OX3, NI, NC Psychiatric: Present: Alert. No: Agitated Vital Signs Reviewed: Yes Vital Signs Temp Pulse Resp BP Pulse Ox 02/18/17 10:56 98.3 F 98 H 16 121/78 98 Temperature: Afebrile Blood Pressure: Normal Pulse: Regular Respiratory Rate: Normal Appearance: Positive for: Non-Toxic, Comfortable, Unkept Pain Distress: None Mental Status: No: Agitated, Lethargic Finger Stick Blood Glucose: 90 ED OBSERVATION Discharge: Yes Date of observation admission: 02/18/17 Time of observation admission: 11:28 - Observation admission statement Patient is being placed in observation because:: alcohol intoxication - Goals of Observation Goals of observation are:: pending sobriety - Progress Note Progress Note: 02/18/17 12:00 Pt has been closely monitored throughout the stay in the ED. Currently pt is ANOx3 to person, place, and time. Has good insight and judgment. Denies suicidal or homicidal ideations. Pt has steady gait, ambulates without difficulty, not slurring speech. Pt able to tolerate PO without any difficulty. Patient denies any complaints at this time. Patient is not tremulous, not tachycardic, no signs or symptoms of alcohol withdrawal. Refused to take any discharge paperwork Disposition/Present on Arrival - Present on Arrival Any Indicators Present on Arrival: No History of DVT/PE: No History of Uncontrolled Diabetes: No Urinary Catheter: No History of Decub. Ulcer: No History Surgical Site Infection Following: None - Disposition Have Diagnosis and Disposition been Completed?: Yes Diagnosis: Alcohol abuse Disposition: HOME/ ROUTINE Disposition Time: 11:29 Patient Plan: Discharge Patient Problems: Current Active Problems Problem Status Diagnosed Alcohol dependence Acute Alcohol abuse Chronic Abdominal pain Resolved Lactic acidosis Resolved Alcohol intoxication Resolved Alcohol withdrawal Resolved Hypomagnesemia Resolved Condition: GOOD
== END 2017-02-18 12:37 | disposition home or self-care (01) ==
LOC: ED 10:37 → EROBSV 11:26
PROVIDERS: ADMIT Emergency Medicine; ATTEND Emergency Medicine
DX: F10.10 Alcohol abuse, uncomplicated (principal); Z59.0 Homelessness; F17.210 Nicotine dependence, cigarettes, uncomplicated; I10 Essential (primary) hypertension
CPT/HCPCS: 99282; G0378

== ENCOUNTER 2017-02-18 17:48 | Emergency (ER) | payer MEDICAID ==
[2017-02-18 18:18] VITALS: BMI 24.3
[2017-02-18 18:20] VITALS: BP 129/84; PULSE 112; RESP 18; TEMP 97.6; O2SAT 98
== END 2017-02-18 20:17 | disposition left against medical advice (07) ==
LOC: ED 17:48
DX: Z02.89 Encounter for other administrative examinations (principal); F10.129 Alcohol abuse with intoxication, unspecified

== ENCOUNTER 2017-02-18 20:41 | Emergency (ER) | payer MEDICAID ==
[2017-02-18 20:42] VITALS: BMI 24.3
== END 2017-02-18 22:38 | disposition left against medical advice (07) ==
LOC: ED 20:41
DX: Z02.89 Encounter for other administrative examinations (principal); F10.129 Alcohol abuse with intoxication, unspecified

== ENCOUNTER 2017-02-18 21:51 | Emergency (ER) | payer MEDICAID ==
[2017-02-18 21:52] VITALS: BMI 24.3
== END 2017-02-18 22:05 | disposition left against medical advice (07) ==
LOC: ED 21:51
DX: Z02.89 Encounter for other administrative examinations (principal); R10.9 Unspecified abdominal pain

== ENCOUNTER 2017-02-19 12:10 | Emergency (ER) | payer MEDICAID ==
[2017-02-19 12:21] VITALS: BMI 28.3
--- NOTE | 2017-02-19 14:46 | ED PDOC ---
Arrival/HPI - General Chief Complaint: Alcohol Ingestion Time Seen by Provider: 02/19/17 12:51 Historian: Patient - History of Present Illness Narrative History of Present Illness (Text): 02/19/17 14:44 46 year old male, well known to the emergency department for alcohol abuse after being found intoxicated by EMS. Patient c/o upper abd pain and occasional sob which he says he has had for a long time and is unchanged. No n/ v associated with it at this time. No fever or chills or SI. Time/Duration: 24 hours Symptom Onset: Gradual Symptom Course: Unchanged Modifying Factors (Text): None Associated Symptoms (Text): None Past Medical History - Provider Review Nursing Documentation Reviewed: Yes - Infectious Disease Hx of Infectious Diseases: None - Tetanus Immunization Tetanus Immunization: Up to Date - Reproductive Currently : No - Past Medical History Past Medical History: No Previous - Cardiac Hx Cardiac Disorders: Yes Hx Hypertension: Yes - Pulmonary Hx Tuberculosis: No - Neurological HX Cerebrovascular Accident: No Hx Seizures: No - HEENT Hx HEENT Disorder: No - Renal Hx Renal Disorder: No - Endocrine/Metabolic Hx Endocrine Disorders: No - Hematological/Oncological Hx Cancer: No - Integumentary Hx Dermatological Disorder: No - Musculoskeletal/Rheumatological Hx Musculoskeletal Disorders: Yes Hx Back Pain: Yes Hx Falls: Yes - Gastrointestinal Hx Gastrointestinal Disorders: Yes (GASTRITIS,H/O GI BLEED,FATTY LIVER) Hx Pancreatitis: Yes - Genitourinary/Gynecological Hx Sexually Transmitted Diseases: No - Psychiatric Hx Psychophysiologic Disorder: Yes (DEPRESSION,HOMELESSNESS,SMOKES CIGARETTES 7 TO 1/2 PPD) Hx Depression: Yes Hx Substance Use: No Other/Comment: ETOH - Past Surgical History Past Surgical History: No Previous - Anesthesia Hx Anesthesia: Yes Hx Anesthesia Reactions: No Hx Malignant Hyperthermia: No - Suicidal Assessment Feels Threatened In Home Enviroment: No Family/Social History - Physician Review Nursing Documentation Reviewed: Yes Family/Social History: Unknown Family HX Smoking Status: Current Some Days Smoker Hx Alcohol Use: Yes Hx Substance Use: No Hx Substance Use Treatment: No Allergies/Home Meds Allergies/Adverse Reactions: Allergies No Known Allergies Allergy (Verified 02/19/17 12:19) Home Medications: Home Meds Medication Instructions Recorded Confirmed No Known Home Med 02/13/17 02/19/17 Review of Systems - Review of Systems Constitutional: absent: Fevers Eyes: absent: Vision Changes ENT: absent: Hearing Changes Respiratory: absent: SOB (no acute changes) Cardiovascular: absent: Chest Pain Gastrointestinal: Abdominal Pain (no acute changes) Genitourinary Male: absent: Dysuria Musculoskeletal: absent: Back Pain Skin: absent: Rash Neurological: absent: Headache Endocrine: absent: Diaphoresis Psychiatric: absent: Suicidal Ideation Physical Exam Temperature: Afebrile Blood Pressure: Normal Pulse: Regular Respiratory Rate: Normal Appearance: Positive for: Other (disheveled, intoxicated) Pain Distress: None Mental Status: Positive for: other (intoxicated and disheveled.; AOB) - Systems Exam Head: Present: Atraumatic, Normocephalic Pupils: Present: PERRL Conjunctiva: Present: Normal Mouth: Present: Moist Mucous Membranes Pharnyx: Present: Normal. No: ERYTHEMA, EXUDATE Neck: Present: Normal Range of Motion Respiratory/Chest: Present: Clear to Auscultation, Good Air Exchange. No: Respiratory Distress, Accessory Muscle Use Cardiovascular: Present: Regular Rate and Rhythm, Normal S1, S2. No: Murmurs Abdomen: Present: Normal Bowel Sounds. No: Tenderness, Distention, Peritoneal Signs Back: Present: Normal Inspection Upper Extremity: Present: Normal Inspection. No: Cyanosis, Edema Lower Extremity: Present: Normal Inspection. No: Edema Neurological: Present: GCS=15, CN II-XII Intact, Speech Normal Skin: Present: Warm, Dry, Normal Color. No: Rashes Psychiatric: Present: Intoxicated Medical Decision Making ED Course and Treatment: Patient BIB EMS to the ED, well-known to ED, intoxicated. He endorses abd pain that he has had for a long time but no acute changes. Patient has been to the ED multiple times this year; he has c/o of abd in the past. His blood work is nondiagnostic and just had blood work done 2 days ago. He has had 2 CT scans of the abd/pel and [address] a/p reviewed are unremarkable. Sono(s) showed questionable GB thickening. Patient needing HIDA scan to r/o GB pathology. PROCEDURE: Nuclear Medicine Hepatobiliary Scan [employer] Consultant : Chas Bowers MD HISTORY: GB wall thickening on sono with abd pain FINDINGS: LIVER: Timely and homogenous uptake. COMMON BILE DUCT: identified at 15 mins. GALLBLADDER: identified at 30 mins. SMALL BOWEL: Identified at 30 mins. IMPRESSION: Normal Hepatobiliary Scan. The cystic duct is patent. 02/19/17 16:36 HIDA scan done is unremarkable. There appear to be no acute abdominal issues with the patient at this time. Also of note, the patient refused EGD on recent admission and said he will do it outpatient, which he has not done. As there are no acute findings, and the patient is now sober and alert and fully oriented with steady gait, he may be discharged and instructed to f/u AA and the medical clinic, where an EGD can be arranged for him - RAD Interpretation Radiology Orders: 02/19/17 13:05 BILIARY SCAN (HIDA) [NM] Stat - Scribe Statement The provider has reviewed the documentation as recorded by the Debbie Mora Provider Scribe Attestation: All medical record entries made by the Scribe were at my direction and personally dictated by me. I have reviewed the chart and agree that the record accurately reflects my personal performance of the history, physical exam, medical decision making, and the department course for this patient. I have also personally directed, reviewed, and agree with the discharge instructions and disposition. Disposition/Present on Arrival - Present on Arrival Any Indicators Present on Arrival: No History of DVT/PE: No History of Uncontrolled Diabetes: No Urinary Catheter: No History of Decub. Ulcer: No History Surgical Site Infection Following: None - Disposition Have Diagnosis and Disposition been Completed?: Yes Diagnosis: Alcohol abuse Disposition: HOME/ ROUTINE Disposition Time: 16:40 Patient Plan: Discharge Patient Problems: Current Active Problems Problem Status Diagnosed Alcohol abuse Chronic Abdominal pain Resolved Lactic acidosis Resolved Alcohol intoxication Resolved Alcohol withdrawal Resolved Hypomagnesemia Resolved Condition: GOOD Discharge Instructions (ExitCare): Alcohol Intoxication (ED) Additional Instructions: Stop alcohol use. Follow up with AA and the medical clinic where further workup , including endoscopy, can be arranged for you. Return to the emergency department if any new concerning symptoms. Referrals: [facility] at [facility] [place] [Outside] - Follow up with primary
--- NOTE | 2017-02-19 15:38 | NM ---
PROCEDURE: Nuclear Medicine Hepatobiliary Scan HISTORY: GB wall thickening on sono with abd pain COMPARISON: None available. TECHNIQUE: 5.0 mCi of technetium 99m Mebrofenin was administered intravenously. Planar images of the abdomen were obtained at 5 min intervals to 60 mins. Delayed images were also obtained. FINDINGS: LIVER: Timely and homogenous uptake. COMMON BILE DUCT: identified at 15 mins. GALLBLADDER: identified at 30 mins. SMALL BOWEL: Identified at 30 mins. IMPRESSION: Normal Hepatobiliary Scan. The cystic duct is patent.
[2017-02-19 17:12] VITALS: BP 120/92; PULSE 93; RESP 16; TEMP 97.8; O2SAT 99
== END 2017-02-19 18:31 | disposition home or self-care (01) ==
LOC: ED 12:10
DX: F10.10 Alcohol abuse, uncomplicated (principal)
CPT/HCPCS: 78227; 99283; A9537

== ENCOUNTER 2017-02-19 20:38 | Observation (INO) | payer MEDICAID ==
[2017-02-19 20:39] VITALS: BMI 28.3
[2017-02-19 21:23] VITALS: BP 118/78; PULSE 103; RESP 17; TEMP 98.3; O2SAT 100
--- NOTE | 2017-02-19 23:54 | ED PDOC ---
Arrival/HPI - General Chief Complaint: Abdominal Pain Time Seen by Provider: 02/19/17 20:40 Historian: Patient - History of Present Illness Narrative History of Present Illness (Text): 02/19/17 20:40 46 y/o male, found etoh intoxicated in the public and stated that he has no pain or complaints. Pt. stated that he is no homicidal or suicidal ideation, no auditory or visual hallucinations, no abdominal or pelvic pain, no other medical or psychological complaints. Past Medical History - Provider Review Nursing Documentation Reviewed: Yes - Infectious Disease Hx of Infectious Diseases: None - Tetanus Immunization Tetanus Immunization: Up to Date - Reproductive Currently : No - Past Medical History Past Medical History: No Previous - Cardiac Hx Cardiac Disorders: Yes Hx Hypertension: Yes - Pulmonary Hx Tuberculosis: No - Neurological HX Cerebrovascular Accident: No Hx Seizures: No - HEENT Hx HEENT Disorder: No - Renal Hx Renal Disorder: No - Endocrine/Metabolic Hx Endocrine Disorders: No - Hematological/Oncological Hx Cancer: No - Integumentary Hx Dermatological Disorder: No - Musculoskeletal/Rheumatological Hx Musculoskeletal Disorders: Yes Hx Back Pain: Yes Hx Falls: Yes - Gastrointestinal Hx Gastrointestinal Disorders: Yes (GASTRITIS,H/O GI BLEED,FATTY LIVER) Hx Pancreatitis: Yes - Genitourinary/Gynecological Hx Sexually Transmitted Diseases: No - Psychiatric Hx Psychophysiologic Disorder: Yes (DEPRESSION,HOMELESSNESS,SMOKES CIGARETTES 7 TO 1/2 PPD) Hx Depression: Yes Hx Substance Use: No Other/Comment: ETOH - Past Surgical History Past Surgical History: No Previous - Anesthesia Hx Anesthesia: Yes Hx Anesthesia Reactions: No Hx Malignant Hyperthermia: No - Suicidal Assessment Feels Threatened In Home Enviroment: No Family/Social History - Physician Review Nursing Documentation Reviewed: Yes Family/Social History: Unknown Family HX Smoking Status: Current Some Days Smoker Hx Alcohol Use: Yes Hx Substance Use: No Hx Substance Use Treatment: No Allergies/Home Meds Allergies/Adverse Reactions: Allergies No Known Allergies Allergy (Verified 02/19/17 21:18) Home Medications: Home Meds Medication Instructions Recorded Confirmed No Known Home Med 02/13/17 02/19/17 Review of Systems - Review of Systems Systems not reviewed;Unavailable: Intoxicated Constitutional: absent: Fatigue, Fevers Respiratory: absent: SOB, Cough, Sputum Cardiovascular: absent: Chest Pain Gastrointestinal: absent: Abdominal Pain, Diarrhea, Nausea, Vomiting Neurological: absent: Headache, Dizziness, Focal Weakness, Gait Changes, Speech Changes, Facial Droop, Disequilibrium, Seizure Psychiatric: absent: Anxiety, Depression, Suicidal Ideation Physical Exam - Physical Exam Physical Exam Limitations: Intoxication Vital Signs Temp Pulse Resp BP Pulse Ox 02/19/17 21:18 98.3 F 103 H 17 118/78 100 Temperature: Afebrile Blood Pressure: Normal Pulse: Tachycardic Respiratory Rate: Normal Appearance: Positive for: Well-Appearing, Non-Toxic, Comfortable Pain Distress: None - Systems Exam Head: Present: Atraumatic, Normocephalic Pupils: Present: PERRL Extroacular Muscles: Present: EOMI Conjunctiva: Present: Normal Mouth: Present: Moist Mucous Membranes Neck: Present: Normal Range of Motion Respiratory/Chest: Present: Clear to Auscultation, Good Air Exchange. No: Respiratory Distress, Accessory Muscle Use Cardiovascular: Present: Regular Rate and Rhythm, Normal S1, S2. No: Murmurs Abdomen: Present: Normal Bowel Sounds. No: Tenderness, Distention, Peritoneal Signs Back: Present: Normal Inspection Upper Extremity: Present: Normal Inspection. No: Cyanosis, Edema Lower Extremity: Present: Normal Inspection. No: Edema Neurological: Present: GCS=15, Speech Normal, Motor Func Grossly Intact, Memory Normal Skin: Present: Warm, Dry, Normal Color. No: Rashes Psychiatric: Present: Alert, Oriented x 3, Normal Insight, Normal Concentration Medical Decision Making ED Course and Treatment: 02/19/17 20:40 -FS -Observe in the ER until sobered. 02/20/17 01:50 -I was noted by the [employer] LIBRARIAN now that the patient walk out of the ER with normal gait and posture with no medical or psychological complaints. ED OBSERVATION Date of observation admission: 02/19/17 Time of observation admission: 20:40 - Observation admission statement Patient is being placed in observation because:: etoh intoxication - Goals of Observation Goals of observation are:: sober - Progress Note Progress Note: 02/19/17 20:40 -FS -Observe in the ER until sobered. - PA / LIVING MANAGER / Resident Statement / has reviewed & agrees with the documentation as recorded. Disposition/Present on Arrival - Present on Arrival Any Indicators Present on Arrival: No History of DVT/PE: No History of Uncontrolled Diabetes: No Urinary Catheter: No History of Decub. Ulcer: No History Surgical Site Infection Following: None - Disposition Have Diagnosis and Disposition been Completed?: Yes Diagnosis: Alcohol abuse Disposition: ELOPEMENT - ER ONLY Disposition Time: 01:51 Patient Problems: Current Active Problems Problem Status Diagnosed Alcohol abuse Chronic Abdominal pain Resolved Lactic acidosis Resolved Alcohol intoxication Resolved Alcohol withdrawal Resolved Hypomagnesemia Resolved Condition: GOOD
== END 2017-02-20 01:31 | disposition left against medical advice (07) ==
LOC: ED 20:38 → EROBSV 23:55
PROVIDERS: ADMIT Emergency Medicine; ATTEND Emergency Medicine
DX: F10.10 Alcohol abuse, uncomplicated (principal); F17.210 Nicotine dependence, cigarettes, uncomplicated; Z59.0 Homelessness; I10 Essential (primary) hypertension
CPT/HCPCS: 99281; G0378

== ENCOUNTER 2017-02-20 15:00 | Emergency (ER) | payer MEDICAID ==
--- NOTE | 2017-02-20 15:15 | ED PDOC ---
Arrival/HPI - General Time Seen by Provider: 02/20/17 15:07 Historian: Patient - History of Present Illness Narrative History of Present Illness (Text): 02/20/17 15:07 A 46 year old male, whose past medical history includes alcohol abuse, presents to the emergency department complaining of right lower back pain which radiated down the right leg and to the knee. Pain began this morning. Patient says he is still able to ambulate without difficulty. Patient denies any hip pain, neck pain, ankle pain, chest pain, shortness of breath, abdominal pain, suicidal ideation, homicidal ideation, or any other complaints at this time. Time/Duration: 1-3 hours Symptom Onset: Sudden Symptom Course: Unchanged Quality: Other Activities at Onset: Rest Context: Street Past Medical History - Provider Review Nursing Documentation Reviewed: Yes - Infectious Disease Hx of Infectious Diseases: None - Tetanus Immunization Tetanus Immunization: Up to Date - Reproductive Currently : No - Past Medical History Past Medical History: No Previous - Cardiac Hx Cardiac Disorders: Yes Hx Hypertension: Yes - Pulmonary Hx Tuberculosis: No - Neurological HX Cerebrovascular Accident: No Hx Seizures: No - HEENT Hx HEENT Disorder: No - Renal Hx Renal Disorder: No - Endocrine/Metabolic Hx Endocrine Disorders: No - Hematological/Oncological Hx Cancer: No - Integumentary Hx Dermatological Disorder: No - Musculoskeletal/Rheumatological Hx Musculoskeletal Disorders: Yes Hx Back Pain: Yes Hx Falls: Yes - Gastrointestinal Hx Gastrointestinal Disorders: Yes (GASTRITIS,H/O GI BLEED,FATTY LIVER) Hx Pancreatitis: Yes - Genitourinary/Gynecological Hx Sexually Transmitted Diseases: No - Psychiatric Hx Psychophysiologic Disorder: Yes (DEPRESSION,HOMELESSNESS,SMOKES CIGARETTES 7 TO 1/2 PPD) Hx Depression: Yes Hx Substance Use: No Other/Comment: ETOH - Past Surgical History Past Surgical History: No Previous - Anesthesia Hx Anesthesia: Yes Hx Anesthesia Reactions: No Hx Malignant Hyperthermia: No - Suicidal Assessment Feels Threatened In Home Enviroment: No Family/Social History Family/Social History: Unknown Family HX Smoking Status: Current Some Days Smoker Hx Alcohol Use: Yes Hx Substance Use: No Hx Substance Use Treatment: No Allergies/Home Meds Allergies/Adverse Reactions: Allergies No Known Allergies Allergy (Verified 02/20/17 15:18) Home Medications: Home Meds Medication Instructions Recorded Confirmed No Known Home Med 03/29/17 04/04/17 Review of Systems - Physician Review All systems were reviewed & negative as marked: Yes - Review of Systems Respiratory: absent: SOB Cardiovascular: absent: Chest Pain Gastrointestinal: absent: Abdominal Pain Musculoskeletal: Back Pain (right lower back pain radiating down right extremity ). absent: Neck Pain Psychiatric: absent: Suicidal Ideation, Other (homicidal ideation) Physical Exam Vital Signs Reviewed: Yes Vital Signs Temp Pulse Resp BP Pulse Ox 02/20/17 15:33 98.8 F 98 H 22 128/77 100 - Systems Exam Head: Present: Atraumatic, Normocephalic Pupils: Present: PERRL Extroacular Muscles: Present: EOMI Conjunctiva: Present: Normal Mouth: Present: Moist Mucous Membranes Neck: Present: Normal Range of Motion Respiratory/Chest: Present: Clear to Auscultation, Good Air Exchange. No: Respiratory Distress, Accessory Muscle Use Cardiovascular: Present: Regular Rate and Rhythm, Normal S1, S2. No: Murmurs Abdomen: Present: Normal Bowel Sounds. No: Tenderness, Distention, Peritoneal Signs Back: Present: Normal Inspection, Paraspinal Tenderness (mild right lower back tenderness with palpation) Upper Extremity: Present: Normal Inspection. No: Cyanosis, Edema Lower Extremity: Present: Normal Inspection. No: Edema Neurological: Present: GCS=15, CN II-XII Intact, Speech Normal Skin: Present: Warm, Dry, Normal Color. No: Rashes Psychiatric: Present: Alert, Oriented x 3, Normal Insight, Normal Concentration Medical Decision Making ED Course and Treatment: 02/20/17 15:07 Impression: A 46 year old male with right lower back pain radiating down right lower extremity. Differential Diagnosis include but are not limited to: sciatic vs. musculoskeletal Plan: -- Tylenol -- Reassess and disposition Prior Visits: Notes and results from previous visits were reviewed. Patient is well known to the emergency department, he presents multiple times for alcohol intoxication, abdominal pain, and suicidal ideation. Progress Notes: 02/20/17 15:20 On re-evaluation, the patient feels better and is in no acute distress. I have discussed the results and plan with the patient, who expresses understanding. Patient in agreement with plan to discharged home. Patient is stable for discharge. Patient was instructed to follow up with physician/clinic in 1-2 days or return if symptoms worsen or new concerning symptoms arise. - Medication Orders Current Medication Orders: Discontinued Medications Acetaminophen (Tylenol 325mg Tab) 650 mg PO STAT STA Stop: 02/20/17 15:12 Last Admin: 02/20/17 15:23 Dose: 650 MG MAR Pain/Vitals Document 02/20/17 15:23 SE (Rec: 02/20/17 15:23 SE [id number]) Pain Reassessment Is This A Pain ReAssessment? No Sleep Is patient sleeping during reassessment? No Presence of Pain Presence of Pain Yes - Scribe Statement The provider has reviewed the documentation as recorded by the Debbie Momin Provider Scribe Attestation: All medical record entries made by the Scribe were at my direction and personally dictated by me. I have reviewed the chart and agree that the record accurately reflects my personal performance of the history, physical exam, medical decision making, and the department course for this patient. I have also personally directed, reviewed, and agree with the discharge instructions and disposition. Disposition/Present on Arrival - Present on Arrival Any Indicators Present on Arrival: No History of DVT/PE: No History of Uncontrolled Diabetes: No Urinary Catheter: No History Surgical Site Infection Following: None - Disposition Have Diagnosis and Disposition been Completed?: Yes Diagnosis: Leg pain, right Disposition: HOME/ ROUTINE Disposition Time: 15:20 Patient Plan: Discharge Patient Problems: Current Active Problems Problem Status Diagnosed Abdominal pain Resolved Lactic acidosis Resolved Alcohol intoxication Resolved Alcohol withdrawal Resolved Hypomagnesemia Resolved Condition: IMPROVED Discharge Instructions (ExitCare): Knee Pain (ED), Leg Pain (ED) Additional Instructions: Mr Mccormick, thank you for letting us take care of you today. Your provider was Dr. Valentino. You were treated for Leg Pain. The emergency medical care you received today was directed at your acute symptoms. If you were prescribed any medication, please fill it and take as directed. It may take several days for your symptoms to resolve. Return to the Emergency Department if your symptoms worsen, do not improve, or if you have any other problems. Please contact your doctor or call one of the physicians/clinics you have been referred to that are listed on the Patient Visit Information form that is included in your discharge packet. Bring any paperwork you were given at discharge with you along with any medications you are taking to your follow up visit. Our treatment cannot replace ongoing medical care by a primary care provider (PCP) outside of the emergency department. Thank you for allowing the [facility] team to be part of your care today. If you had an X-Ray or CT scan: A Radiologist will review the ED reading if any change in treatment is needed we will contact you. If you had a blood, urine, or wound culture: It will take several days for the results, if any change in treatment is needed we will contact you. If you had an STI test: It will take 48 hours for the results. Please call after 1 week if you have not heard back. Referrals: [facility] at [facility] [place] [Outside] - Follow up with primary
[2017-02-20 15:18] VITALS: BMI 26.2
[2017-02-20 15:35] VITALS: BP 128/77; PULSE 98; RESP 22; TEMP 98.8; O2SAT 100
== END 2017-02-20 15:49 | disposition home or self-care (01) ==
LOC: ED 15:00
DX: M79.604 Pain in right leg (principal); I10 Essential (primary) hypertension

== ENCOUNTER 2017-02-21 02:51 | Observation (INO) | payer MEDICAID ==
[2017-02-21 02:51] VITALS: BMI 26.2
--- NOTE | 2017-02-21 04:37 | ED PDOC ---
Arrival/HPI - General Chief Complaint: Medical Clearance Time Seen by Provider: 02/21/17 04:30 Historian: Patient - History of Present Illness Narrative History of Present Illness (Text): Angelo Mccormick is a 46 year old male, whose past medical history includes alcohol abuse, who presents for alcohol intoxication. Patient also reports he is homeless and requesting a place to stay for the night. Patient is well-known to Emergency room staff and has been seen on multiple occasions for similar complaints. Patient was seen earlier today and discharged. Patient denies any fever, chills, chest pain, shortness of breath, nausea, vomiting, diarrhea, urinary symptoms, back pain, neck pain, headache, dizziness, or any other complaints. Time/Duration: Other (tonight) Symptom Onset: Gradual Symptom Course: Unchanged Severity Level: Mild Activities at Onset: Rest, Light Context: Home Past Medical History - Provider Review Nursing Documentation Reviewed: Yes - Infectious Disease Hx of Infectious Diseases: None - Tetanus Immunization Tetanus Immunization: Up to Date - Reproductive Currently : No - Past Medical History Past Medical History: No Previous - Cardiac Hx Cardiac Disorders: Yes Hx Hypertension: Yes - Pulmonary Hx Tuberculosis: No - Neurological HX Cerebrovascular Accident: No Hx Seizures: No - HEENT Hx HEENT Disorder: No - Renal Hx Renal Disorder: No - Endocrine/Metabolic Hx Endocrine Disorders: No - Hematological/Oncological Hx Cancer: No - Integumentary Hx Dermatological Disorder: No - Musculoskeletal/Rheumatological Hx Musculoskeletal Disorders: Yes Hx Back Pain: Yes Hx Falls: Yes - Gastrointestinal Hx Gastrointestinal Disorders: Yes (GASTRITIS,H/O GI BLEED,FATTY LIVER) Hx Pancreatitis: Yes - Genitourinary/Gynecological Hx Sexually Transmitted Diseases: No - Psychiatric Hx Psychophysiologic Disorder: Yes (DEPRESSION,HOMELESSNESS,SMOKES CIGARETTES 7 TO 1/2 PPD) Hx Depression: Yes Hx Substance Use: No Other/Comment: ETOH - Past Surgical History Past Surgical History: No Previous - Anesthesia Hx Anesthesia: Yes Hx Anesthesia Reactions: No Hx Malignant Hyperthermia: No - Suicidal Assessment Feels Threatened In Home Enviroment: No Family/Social History - Physician Review Nursing Documentation Reviewed: Yes Family/Social History: No Known Family HX Smoking Status: Current Some Days Smoker Hx Alcohol Use: Yes Hx Substance Use: No Hx Substance Use Treatment: No Allergies/Home Meds Allergies/Adverse Reactions: Allergies No Known Allergies Allergy (Verified 02/20/17 15:18) Home Medications: Home Meds Medication Instructions Recorded Confirmed No Known Home Med 02/13/17 02/21/17 Review of Systems - Physician Review All systems were reviewed & negative as marked: Yes - Review of Systems Constitutional: Normal. absent: Fevers Eyes: Normal ENT: Normal Respiratory: Normal. absent: SOB, Cough Cardiovascular: Normal. absent: Chest Pain, Syncope Gastrointestinal: Normal. absent: Abdominal Pain, Constipation, Diarrhea, Nausea, Vomiting Genitourinary Male: Normal. absent: Dysuria, Frequency, Hematuria, Urinary Output Changes Musculoskeletal: Normal. absent: Back Pain, Neck Pain Skin: Normal. absent: Rash Neurological: Normal. absent: Headache, Dizziness Endocrine: Normal Hemo/Lymphatic: Normal Psychiatric: Normal. absent: Depression, Suicidal Ideation Physical Exam Vital Signs Reviewed: Yes Temperature: Afebrile Blood Pressure: Normal Pulse: Regular Respiratory Rate: Normal Appearance: Positive for: Well-Appearing, Non-Toxic, Comfortable Pain Distress: None Mental Status: Positive for: Alert and Oriented X 3 - Systems Exam Head: Present: Atraumatic, Normocephalic Pupils: Present: PERRL Extroacular Muscles: Present: EOMI Conjunctiva: Present: Normal Mouth: Present: Moist Mucous Membranes Neck: Present: Normal Range of Motion Respiratory/Chest: Present: Clear to Auscultation, Good Air Exchange. No: Respiratory Distress, Accessory Muscle Use Cardiovascular: Present: Regular Rate and Rhythm, Normal S1, S2. No: Murmurs Abdomen: Present: Normal Bowel Sounds. No: Tenderness, Distention, Peritoneal Signs Back: Present: Normal Inspection Upper Extremity: Present: Normal Inspection. No: Cyanosis, Edema Lower Extremity: Present: Normal Inspection. No: Edema Neurological: Present: GCS=15, CN II-XII Intact, Speech Normal Skin: Present: Warm, Dry, Normal Color. No: Rashes Psychiatric: Present: Alert, Oriented x 3, Normal Insight, Normal Concentration Medical Decision Making ED Course and Treatment: Impression: 46 year old male brought in for alcohol intoxication tonight. Differential Diagnosis include but are not limited to: alcohol intoxication Plan: -- Reassess and disposition Prior Visits: Notes and results from previous visits were reviewed. Pt is well known to Emergency room staff and has been seen on multiple occasions for similar complaints. ED OBSERVATION Discharge: Yes Date of observation admission: 02/21/17 Time of observation admission: 03:30 - Observation admission statement Patient is being placed in observation because:: alcohol abuse - Goals of Observation Goals of observation are:: sobriety - Progress Note Progress Note: 02/21/17 03:30 Pt resting comfortably, in no acute distress. 02/21/17 05:30 Pt resting comfortably, in no acute distress. - Scribe Statement The provider has reviewed the documentation as recorded by the Tedibaudi Jackman Provider Attestation: All medical record entries made by the Tedibaudi were at my direction and personally dictated by me. I have reviewed the chart and agree that the record accurately reflects my personal performance of the history, physical exam, medical decision making, and the department course for this patient. I have also personally directed, reviewed, and agree with the discharge instructions and disposition. Disposition/Present on Arrival - Present on Arrival Any Indicators Present on Arrival: No History of DVT/PE: No History of Uncontrolled Diabetes: No Urinary Catheter: No History of Decub. Ulcer: No History Surgical Site Infection Following: None - Disposition Have Diagnosis and Disposition been Completed?: Yes Diagnosis: Alcohol abuse Disposition: HOME/ ROUTINE Disposition Time: 06:18 Patient Plan: Discharge Patient Problems: Current Active Problems Problem Status Diagnosed Abdominal pain Resolved Lactic acidosis Resolved Alcohol intoxication Resolved Alcohol withdrawal Resolved Hypomagnesemia Resolved Condition: GOOD
[2017-02-21 06:28] VITALS: BP 116/84; PULSE 76; RESP 18; TEMP 97.8; O2SAT 97
== END 2017-02-21 06:20 | disposition home or self-care (01) ==
LOC: ED 02:51 → EROBSV 03:30
PROVIDERS: ADMIT Emergency Medicine; ATTEND Emergency Medicine
DX: F10.10 Alcohol abuse, uncomplicated (principal); Y90.9 Presence of alcohol in blood, level not specified; Z59.0 Homelessness
CPT/HCPCS: 99281; G0378

== ENCOUNTER 2017-02-21 09:02 | Observation (INO) | payer MEDICAID ==
[2017-02-21 09:02] VITALS: BMI 26.2
[2017-02-21 09:28] VITALS: TEMP 97.6
--- NOTE | 2017-02-21 10:34 | ED PDOC ---
Arrival/HPI - General Chief Complaint: Alcohol Ingestion Time Seen by Provider: 02/21/17 10:28 Historian: Patient, EMS - History of Present Illness Narrative History of Present Illness (Text): 02/21/17 10:31 46 year old male, well known to the emergency department, with a history of alcohol abuse, brought to the emergency department by EMS for alcohol intoxication. Patient admits to drinking today. FS: 119. Denies any complaints at this time. Time/Duration: Prior to Arrival Symptom Onset: Gradual Modifying Factors (Text): None Associated Symptoms (Text): None Past Medical History - Provider Review Nursing Documentation Reviewed: Yes - Infectious Disease Hx of Infectious Diseases: None - Tetanus Immunization Tetanus Immunization: Up to Date - Reproductive Currently : No - Past Medical History Past Medical History: No Previous - Cardiac Hx Cardiac Disorders: Yes Hx Hypertension: Yes - Pulmonary Hx Tuberculosis: No - Neurological HX Cerebrovascular Accident: No Hx Seizures: No - HEENT Hx HEENT Disorder: No - Renal Hx Renal Disorder: No - Endocrine/Metabolic Hx Endocrine Disorders: No - Hematological/Oncological Hx Cancer: No - Integumentary Hx Dermatological Disorder: No - Musculoskeletal/Rheumatological Hx Musculoskeletal Disorders: Yes Hx Back Pain: Yes Hx Falls: Yes - Gastrointestinal Hx Gastrointestinal Disorders: Yes (GASTRITIS,H/O GI BLEED,FATTY LIVER) Hx Pancreatitis: Yes - Genitourinary/Gynecological Hx Sexually Transmitted Diseases: No - Psychiatric Hx Psychophysiologic Disorder: Yes (DEPRESSION,HOMELESSNESS,SMOKES CIGARETTES 7 TO 1/2 PPD) Hx Depression: Yes Hx Substance Use: No Other/Comment: ETOH - Past Surgical History Past Surgical History: No Previous - Anesthesia Hx Anesthesia: Yes Hx Anesthesia Reactions: No Hx Malignant Hyperthermia: No - Suicidal Assessment Feels Threatened In Home Enviroment: No Family/Social History - Physician Review Nursing Documentation Reviewed: Yes Family/Social History: Unknown Family HX Smoking Status: Current Some Days Smoker Hx Alcohol Use: Yes Frequency of alcohol use: Daily Hx Substance Use: No Hx Substance Use Treatment: No Allergies/Home Meds Allergies/Adverse Reactions: Allergies No Known Allergies Allergy (Verified 02/20/17 15:18) Home Medications: Home Meds Medication Instructions Recorded Confirmed No Known Home Med 02/13/17 02/21/17 Review of Systems - Review of Systems Systems not reviewed;Unavailable: Intoxicated Respiratory: absent: SOB Cardiovascular: absent: Chest Pain Gastrointestinal: absent: Abdominal Pain Physical Exam Vital Signs Reviewed: Yes Vital Signs Temp Pulse Resp BP Pulse Ox 02/21/17 15:00 78 18 115/79 98 02/21/17 13:05 82 18 117/80 98 02/21/17 11:33 79 16 116/74 98 02/21/17 09:16 97.6 F 80 20 114/79 98 Temperature: Afebrile Blood Pressure: Normal Pulse: Regular Respiratory Rate: Normal Appearance: Positive for: Non-Toxic, Comfortable, Other (Dishelved, smells of alcohol) Pain Distress: None Mental Status: Positive for: other (Alert) - Systems Exam Head: Present: Atraumatic, Normocephalic Pupils: Present: PERRL Extroacular Muscles: Present: EOMI Conjunctiva: Present: Normal Mouth: Present: Moist Mucous Membranes Neck: Present: Normal Range of Motion Respiratory/Chest: Present: Clear to Auscultation, Good Air Exchange. No: Respiratory Distress, Accessory Muscle Use Cardiovascular: Present: Regular Rate and Rhythm, Normal S1, S2. No: Murmurs Abdomen: Present: Normal Bowel Sounds. No: Tenderness, Distention, Peritoneal Signs Back: Present: Normal Inspection Upper Extremity: Present: Normal Inspection. No: Cyanosis, Edema Lower Extremity: Present: Normal Inspection. No: Edema Neurological: Present: GCS=15, CN II-XII Intact, Speech Normal Skin: Present: Warm, Dry, Normal Color Psychiatric: Present: Alert, Oriented x 3 Medical Decision Making ED Course and Treatment: Impression: 46 year old male, well known to the emergency department, with a history of alcohol abuse, brought to the emergency department by EMS for alcohol intoxication. Plan: Will observe pending sobriety, ambulate, discharge. 02/21/17 17:00 Patient has been observed in the ED for 7 hours. He is now AAOx3 and ambulating around the ED without issue. He is tolerating po and has no complaints. Instructed to decrease alcohol use. ED OBSERVATION Discharge: Yes Date of observation admission: 02/21/17 Time of observation admission: 09:30 - Observation admission statement Patient is being placed in observation because:: alcohol intoxication - Goals of Observation Goals of observation are:: pending sobriety - Progress Note Progress Note: 02/21/17 09:30 On initial exam, patient smells of alcohol. Denies any complaints. 02/21/17 11:30 Patient sleeping comfortably in no acute distress. 02/21/17 13:30 Patient resting in no acute distress. - Scribe Statement The provider has reviewed the documentation as recorded by the Debbie Mora Provider Scribe Attestation: All medical record entries made by the Debbie were at my direction and personally dictated by me. I have reviewed the chart and agree that the record accurately reflects my personal performance of the history, physical exam, medical decision making, and the department course for this patient. I have also personally directed, reviewed, and agree with the discharge instructions and disposition. Disposition/Present on Arrival - Present on Arrival Any Indicators Present on Arrival: No History of DVT/PE: No History of Uncontrolled Diabetes: No Urinary Catheter: No History of Decub. Ulcer: No History Surgical Site Infection Following: None - Disposition Have Diagnosis and Disposition been Completed?: Yes Diagnosis: Alcohol dependence Disposition: HOME/ ROUTINE Disposition Time: 09:30 Patient Plan: Discharge Patient Problems: Current Active Problems Problem Status Diagnosed Abdominal pain Resolved Lactic acidosis Resolved Alcohol intoxication Resolved Alcohol withdrawal Resolved Hypomagnesemia Resolved Condition: GOOD
[2017-02-21 13:08] VITALS: RESP 18
[2017-02-21 17:03] VITALS: BP 146/76; PULSE 79; O2SAT 97
== END 2017-02-21 17:00 | disposition home or self-care (01) ==
LOC: ED 09:02 → EROBSV 09:30
PROVIDERS: ADMIT Emergency Medicine; ATTEND Emergency Medicine
DX: F10.20 Alcohol dependence, uncomplicated (principal); Y90.9 Presence of alcohol in blood, level not specified
CPT/HCPCS: 99285; G0378

== ENCOUNTER 2017-02-21 19:09 | Emergency (ER) | payer MEDICAID ==
[2017-02-21 19:10] VITALS: BMI 26.2
[2017-02-21 19:47] VITALS: O2SAT 99
--- NOTE | 2017-02-21 20:25 | ED PDOC ---
Arrival/HPI - General Chief Complaint: Medical Clearance Time Seen by Provider: 02/21/17 20:23 Historian: Patient - History of Present Illness Narrative History of Present Illness (Text): 02/21/17 20:24 Angelo Mccormick is a 46 year old male, with a history of alcohol abuse and pancreatitis, presents to the emergency department requesting for a place to stay for the night. Patient has numerous visits to the emergency department for alcohol intoxication and is well known to ed staff. Denies any somatic complaints. Patient refuses to be placed in a homeless residential. Severity Level: Mild Activities at Onset: Light Modifying Factors (Text): none Associated Symptoms (Text): none Past Medical History - Provider Review Nursing Documentation Reviewed: Yes - Infectious Disease Hx of Infectious Diseases: None - Tetanus Immunization Tetanus Immunization: Up to Date - Reproductive Currently : No - Past Medical History Past Medical History: No Previous - Cardiac Hx Cardiac Disorders: Yes Hx Hypertension: Yes - Pulmonary Hx Tuberculosis: No - Neurological HX Cerebrovascular Accident: No Hx Seizures: No - HEENT Hx HEENT Disorder: No - Renal Hx Renal Disorder: No - Endocrine/Metabolic Hx Endocrine Disorders: No - Hematological/Oncological Hx Cancer: No - Integumentary Hx Dermatological Disorder: No - Musculoskeletal/Rheumatological Hx Musculoskeletal Disorders: Yes Hx Back Pain: Yes Hx Falls: Yes - Gastrointestinal Hx Gastrointestinal Disorders: Yes (GASTRITIS,H/O GI BLEED,FATTY LIVER) Hx Pancreatitis: Yes - Genitourinary/Gynecological Hx Sexually Transmitted Diseases: No - Psychiatric Hx Psychophysiologic Disorder: Yes (DEPRESSION,HOMELESSNESS,SMOKES CIGARETTES 7 TO 1/2 PPD) Hx Depression: Yes Hx Substance Use: No Other/Comment: ETOH - Past Surgical History Past Surgical History: No Previous - Anesthesia Hx Anesthesia: Yes Hx Anesthesia Reactions: No Hx Malignant Hyperthermia: No - Suicidal Assessment Feels Threatened In Home Enviroment: No Family/Social History - Physician Review Nursing Documentation Reviewed: Yes Family/Social History: No Known Family HX Smoking Status: Current Some Days Smoker Hx Alcohol Use: Yes Hx Substance Use: No Hx Substance Use Treatment: No Allergies/Home Meds Allergies/Adverse Reactions: Allergies No Known Allergies Allergy (Verified 02/20/17 15:18) Home Medications: Home Meds Medication Instructions Recorded Confirmed No Known Home Med 02/13/17 02/23/17 Review of Systems - Physician Review All systems were reviewed & negative as marked: Yes - Review of Systems Constitutional: Normal. absent: Fatigue, Fevers Respiratory: Normal. absent: SOB, Cough Cardiovascular: Normal. absent: Chest Pain Gastrointestinal: Normal. absent: Abdominal Pain, Diarrhea, Nausea, Vomiting Neurological: Normal. absent: Headache, Dizziness Psychiatric: Normal Physical Exam Vital Signs Reviewed: Yes Vital Signs Temp Pulse Resp BP Pulse Ox 02/21/17 20:42 97 F L 69 19 123/71 99 02/21/17 19:46 98.1 F 86 18 124/66 99 Temperature: Afebrile Blood Pressure: Normal Pulse: Regular Respiratory Rate: Normal Appearance: Positive for: Well-Appearing, Non-Toxic, Comfortable Pain Distress: None Mental Status: Positive for: Alert and Oriented X 3 - Systems Exam Head: Present: Atraumatic, Normocephalic Pupils: Present: PERRL Conjunctiva: Present: Normal Respiratory/Chest: Present: Clear to Auscultation, Good Air Exchange. No: Respiratory Distress, Accessory Muscle Use Cardiovascular: Present: Regular Rate and Rhythm, Normal S1, S2. No: Murmurs Abdomen: Present: Normal Bowel Sounds. No: Tenderness, Distention, Peritoneal Signs Neurological: Present: GCS=15, CN II-XII Intact, Speech Normal, Motor Func Grossly Intact, Normal Sensory Function Skin: Present: Warm, Dry, Normal Color. No: Rashes Psychiatric: Present: Alert, Oriented x 3, Normal Insight, Normal Concentration Medical Decision Making ED Course and Treatment: 02/21/17 20:30 Impression: A 46 year old male who presents to the emergency department requesting a place to stay. Denies any somatic complaints. Prior Visits: Notes and results from previous visits were reviewed. Patient presented today for alcohol intoxication and was discharged home after he was alert OX3 and able to ambulate with a steady gait. Progress Notes: Patient is stable for discharge. Explained to patient that there is no medical reason to keep him in the emergency department and provided him with information about homeless shelters. - Scribe Statement The provider has reviewed the documentation as recorded by the Debbie Chong Provider Attestation: All medical record entries made by the Debbie were at my direction and personally dictated by me. I have reviewed the chart and agree that the record accurately reflects my personal performance of the history, physical exam, medical decision making, and the department course for this patient. I have also personally directed, reviewed, and agree with the discharge instructions and disposition. Disposition/Present on Arrival - Present on Arrival Any Indicators Present on Arrival: No History of DVT/PE: No History of Uncontrolled Diabetes: No Urinary Catheter: No History of Decub. Ulcer: No History Surgical Site Infection Following: None - Disposition Have Diagnosis and Disposition been Completed?: Yes Diagnosis: Homeless Disposition: HOME/ ROUTINE Disposition Time: 20:35 Patient Problems: Current Active Problems Problem Status Diagnosed Abdominal pain Resolved Lactic acidosis Resolved Alcohol intoxication Resolved Alcohol withdrawal Resolved Hypomagnesemia Resolved Condition: STABLE Additional Instructions: Please follow up with a primary doctor. Return to the ER for any worsening symptoms or for any other concerns. Referrals: Alcoholics Anonymous [Outside] - Follow up with primary [facility] [Outside] - Follow up with primary [facility] Resendiz, [Non-Staff] - Follow up with primary
[2017-02-21 20:43] VITALS: BP 123/71; PULSE 69; RESP 19; TEMP 97
== END 2017-02-22 00:24 | disposition home or self-care (01) ==
LOC: ED 19:09
DX: Z59.0 Homelessness (principal)

== ENCOUNTER 2017-02-23 19:15 | Observation (INO) | payer MEDICAID, OTHER ==
[2017-02-23 19:27] VITALS: BMI 24.0
[2017-02-23 19:35] VITALS: RESP 18; TEMP 98.2
--- NOTE | 2017-02-23 19:46 | ED PDOC ---
Arrival/HPI - General Chief Complaint: Alcohol Ingestion Time Seen by Provider: 02/23/17 19:41 Historian: Patient - History of Present Illness Narrative History of Present Illness (Text): 02/23/17 19:46 46 year old male, well known to the emergency department, with a history of alcohol abuse, brought to the emergency department by EMS for alcohol intoxication. Patient admits to drinking today. Denies any complaints at this time. Time/Duration: 24 hours Symptom Onset: Gradual Modifying Factors (Text): None Associated Symptoms (Text): None Past Medical History - Provider Review Nursing Documentation Reviewed: Yes - Infectious Disease Hx of Infectious Diseases: None - Tetanus Immunization Tetanus Immunization: Up to Date - Reproductive Currently : No - Past Medical History Past Medical History: No Previous - Cardiac Hx Cardiac Disorders: Yes Hx Hypertension: Yes - Pulmonary Hx Tuberculosis: No - Neurological HX Cerebrovascular Accident: No Hx Seizures: No - HEENT Hx HEENT Disorder: No - Renal Hx Renal Disorder: No - Endocrine/Metabolic Hx Endocrine Disorders: No - Hematological/Oncological Hx Cancer: No - Integumentary Hx Dermatological Disorder: No - Musculoskeletal/Rheumatological Hx Musculoskeletal Disorders: Yes Hx Back Pain: Yes Hx Falls: Yes - Gastrointestinal Hx Gastrointestinal Disorders: Yes (GASTRITIS,H/O GI BLEED,FATTY LIVER) Hx Pancreatitis: Yes - Genitourinary/Gynecological Hx Sexually Transmitted Diseases: No - Psychiatric Hx Psychophysiologic Disorder: Yes (DEPRESSION,HOMELESSNESS,SMOKES CIGARETTES 7 TO 1/2 PPD) Hx Depression: Yes Hx Substance Use: No Other/Comment: ETOH - Past Surgical History Past Surgical History: No Previous - Anesthesia Hx Anesthesia: Yes Hx Anesthesia Reactions: No Hx Malignant Hyperthermia: No - Suicidal Assessment Feels Threatened In Home Enviroment: No Family/Social History - Physician Review Nursing Documentation Reviewed: Yes Family/Social History: Unknown Family HX Smoking Status: Current Some Days Smoker Hx Alcohol Use: Yes Hx Substance Use: No Hx Substance Use Treatment: No Allergies/Home Meds Allergies/Adverse Reactions: Allergies No Known Allergies Allergy (Verified 02/20/17 15:18) Home Medications: Home Meds Medication Instructions Recorded Confirmed No Known Home Med 02/13/17 02/23/17 Review of Systems - Review of Systems Systems not reviewed;Unavailable: Intoxicated Physical Exam Vital Signs Reviewed: Yes Vital Signs Temp Pulse Resp BP Pulse Ox 02/23/17 22:16 97 H 18 94/62 L 98 02/23/17 19:34 98.2 F 100 H 18 134/81 99 Temperature: Afebrile Blood Pressure: Normal Pulse: Regular Respiratory Rate: Normal Appearance: Positive for: Well-Appearing, Non-Toxic, Comfortable Pain Distress: None Mental Status: Positive for: other (Awake, alert) - Systems Exam Head: Present: Atraumatic, Normocephalic Pupils: Present: PERRL Extroacular Muscles: Present: EOMI Conjunctiva: Present: Normal Mouth: Present: Moist Mucous Membranes Neck: Present: Normal Range of Motion Respiratory/Chest: Present: Clear to Auscultation, Good Air Exchange. No: Respiratory Distress, Accessory Muscle Use Cardiovascular: Present: Regular Rate and Rhythm, Normal S1, S2. No: Murmurs Abdomen: Present: Normal Bowel Sounds. No: Tenderness, Distention, Peritoneal Signs Back: Present: Normal Inspection Upper Extremity: Present: Normal Inspection. No: Cyanosis, Edema Lower Extremity: Present: Normal Inspection. No: Edema Neurological: Present: GCS=15, CN II-XII Intact Skin: Present: Warm, Dry, Normal Color. No: Rashes Psychiatric: Present: Alert, Normal Concentration Medical Decision Making ED Course and Treatment: Impression: 46 year old male, well known to the emergency department, with a history of alcohol abuse, brought to the emergency department by EMS for alcohol intoxication. Differential Diagnosis include but are not limited to: Alcohol intoxication Plan: -- OBS Prior Visits: Notes and results from previous visits were reviewed. Patient last seen in ED multiple times on 02/21/17 for alcohol intoxication and discharged. Progress Notes: ED OBSERVATION Discharge: Yes Date of observation admission: 02/23/17 Time of observation admission: 19:41 - Observation admission statement Patient is being placed in observation because:: alcohol intoxication - Goals of Observation Goals of observation are:: pending sobriety, reassessment - Progress Note Progress Note: 02/23/17 19:41 On initial examination patient is in no acute distress, denies complaints. 02/23/17 21:41 Pt resting comfortably, no new complaints. 02/23/17 23:30 Pt sleeping currently, in no acute distress. 02/23/17 23:47 Notified by RN, pt eloped from ER without announcing. - Scribe Statement The provider has reviewed the documentation as recorded by the Scribe Tomas Ly Provider Scribe Attestation: All medical record entries made by the Debbie were at my direction and personally dictated by me. I have reviewed the chart and agree that the record accurately reflects my personal performance of the history, physical exam, medical decision making, and the department course for this patient. I have also personally directed, reviewed, and agree with the discharge instructions and disposition. Disposition/Present on Arrival - Present on Arrival Any Indicators Present on Arrival: No History of DVT/PE: No History of Uncontrolled Diabetes: No Urinary Catheter: No History of Decub. Ulcer: No History Surgical Site Infection Following: None - Disposition Have Diagnosis and Disposition been Completed?: Yes Diagnosis: Alcohol abuse, Homeless Disposition: ELOPEMENT - ER ONLY Disposition Time: 23:55 Patient Problems: Current Active Problems Problem Status Diagnosed Alcohol abuse Chronic Homeless Chronic Abdominal pain Resolved Lactic acidosis Resolved Alcohol intoxication Resolved Alcohol withdrawal Resolved Hypomagnesemia Resolved Condition: GOOD
[2017-02-23 22:16] VITALS: BP 94/62; PULSE 97; O2SAT 98
== END 2017-02-23 23:55 | disposition home or self-care (01) ==
LOC: ED 19:15 → EROBSV 19:41
PROVIDERS: ADMIT Emergency Medicine; ATTEND Emergency Medicine
DX: F10.10 Alcohol abuse, uncomplicated (principal); Y90.9 Presence of alcohol in blood, level not specified; Z59.0 Homelessness
CPT/HCPCS: 99282; G0378

== ENCOUNTER 2017-02-28 18:33 | Emergency (ER) | payer MEDICAID ==
[2017-02-28 18:34] VITALS: BMI 24.0
--- NOTE | 2017-02-28 19:07 | ED PDOC ---
Arrival/HPI - General Historian: Patient - History of Present Illness Context: Street <Dago Horne - Last Filed: 03/01/17 01:16> <Eulalio Mills - Last Filed: 03/01/17 06:50> - General Chief Complaint: Alcohol Ingestion Time Seen by Provider: 02/28/17 19:06 - History of Present Illness Narrative History of Present Illness (Text): 02/28/17 19:06 This 46 year old male, well known to the emergency department, with a history of alcohol abuse, brought to the emergency department by EMS for alcohol intoxication. Patient admits to drinking today. Denies any complaints at this time. (Dago Horne) Past Medical History - Provider Review Nursing Documentation Reviewed: Yes - Infectious Disease Hx of Infectious Diseases: None - Tetanus Immunization Tetanus Immunization: Up to Date - Reproductive Currently : No - Past Medical History Past Medical History: No Previous - Cardiac Hx Cardiac Disorders: Yes Hx Hypertension: Yes - Pulmonary Hx Tuberculosis: No - Neurological HX Cerebrovascular Accident: No Hx Seizures: No - HEENT Hx HEENT Disorder: No - Renal Hx Renal Disorder: No - Endocrine/Metabolic Hx Endocrine Disorders: No - Hematological/Oncological Hx Cancer: No - Integumentary Hx Dermatological Disorder: No - Musculoskeletal/Rheumatological Hx Musculoskeletal Disorders: Yes Hx Back Pain: Yes Hx Falls: Yes - Gastrointestinal Hx Gastrointestinal Disorders: Yes (GASTRITIS,H/O GI BLEED,FATTY LIVER) Hx Pancreatitis: Yes - Genitourinary/Gynecological Hx Sexually Transmitted Diseases: No - Psychiatric Hx Psychophysiologic Disorder: Yes (DEPRESSION,HOMELESSNESS,SMOKES CIGARETTES 7 TO 1/2 PPD) Hx Depression: Yes Hx Substance Use: No Other/Comment: ETOH - Past Surgical History Past Surgical History: No Previous - Anesthesia Hx Anesthesia: Yes Hx Anesthesia Reactions: No Hx Malignant Hyperthermia: No - Suicidal Assessment Feels Threatened In Home Enviroment: No <Dago Horne - Last Filed: 03/01/17 01:16> Family/Social History - Physician Review Nursing Documentation Reviewed: Yes Family/Social History: No Known Family HX Smoking Status: Current Some Days Smoker Hx Alcohol Use: Yes Hx Substance Use: No Hx Substance Use Treatment: No <Dago Horne P - Last Filed: 03/01/17 01:16> Allergies/Home Meds <Dago Horne P - Last Filed: 03/01/17 01:16> <Eulalio Mills - Last Filed: 03/01/17 06:50> Allergies/Adverse Reactions: Allergies No Known Allergies Allergy (Verified 02/28/17 18:43) Home Medications: Home Meds Medication Instructions Recorded Confirmed No Known Home Med 02/13/17 02/23/17 Review of Systems - Review of Systems Systems not reviewed;Unavailable: Intoxicated Constitutional: Normal. absent: Fatigue, Weight Change, Fevers Eyes: Normal ENT: Normal Respiratory: Normal Cardiovascular: Normal Gastrointestinal: Normal Genitourinary Male: Normal Musculoskeletal: Normal Skin: Normal Neurological: Normal Endocrine: Normal Hemo/Lymphatic: Normal Psychiatric: Other (alcohol intoxication) <Dago Horne P - Last Filed: 03/01/17 01:16> Physical Exam Temperature: Afebrile Blood Pressure: Normal Pulse: Regular Respiratory Rate: Normal Appearance: Positive for: Well-Appearing, Non-Toxic, Comfortable Pain Distress: None - Systems Exam Head: Present: Atraumatic, Normocephalic Pupils: Present: PERRL Extroacular Muscles: Present: EOMI Conjunctiva: Present: Normal Mouth: Present: Moist Mucous Membranes Neck: Present: Normal Range of Motion Respiratory/Chest: Present: Clear to Auscultation, Good Air Exchange. No: Respiratory Distress, Accessory Muscle Use Cardiovascular: Present: Regular Rate and Rhythm, Normal S1, S2. No: Murmurs Abdomen: Present: Normal Bowel Sounds. No: Tenderness, Distention, Peritoneal Signs Back: Present: Normal Inspection Upper Extremity: Present: Normal Inspection. No: Cyanosis, Edema Lower Extremity: Present: Normal Inspection. No: Edema Neurological: Present: GCS=15, CN II-XII Intact, Speech Normal Skin: Present: Warm, Dry, Normal Color. No: Rashes Psychiatric: Present: Alert, Intoxicated <Dago Horne P - Last Filed: 03/01/17 01:16> Vital Signs Temp Pulse Resp BP Pulse Ox 02/28/17 23:18 78 18 102/62 97 02/28/17 19:26 90 18 109/94 H 95 02/28/17 19:23 97.6 F 100 H 20 135/97 H 98 Medical Decision Making Re-evaluation Time: 11:20 <Dago Horne - Last Filed: 03/01/17 01:16> <Eulalio Mills - Last Filed: 03/01/17 06:50> ED Course and Treatment: 02/28/17 09:20 Patient is eating and drinking fluid. no complains 02/28/17 10:06 Patient is sleeping comfortably. 02/28/17 11:16 Patient had [facility] (Horne,Nahim P) ED OBSERVATION Discharge: Yes ([facility]) Date of observation admission: 02/28/17 Time of observation admission: 19:11 <Horne,Nahim P - Last Filed: 03/01/17 01:16> Discharge: Yes <Eulalio Mills - Last Filed: 03/01/17 06:50> - Observation admission statement Patient is being placed in observation because:: alcohol intoxication (Horne,Nahim P) - Goals of Observation Goals of observation are:: Monitor for symptoms (Horne,Nahim P) - PA / [employer] / Resident Statement MD/DO has reviewed & agrees with the documentation as recorded. <Eulalio Mills - Last Filed: 03/01/17 06:50> Disposition/Present on Arrival - Present on Arrival Any Indicators Present on Arrival: No History of DVT/PE: No History of Uncontrolled Diabetes: No Urinary Catheter: No History of Decub. Ulcer: No History Surgical Site Infection Following: None - Disposition Have Diagnosis and Disposition been Completed?: Yes Disposition Time: 11:20 <Horne,Nahim P - Last Filed: 03/01/17 01:16> - Present on Arrival Any Indicators Present on Arrival: No - Disposition Have Diagnosis and Disposition been Completed?: Yes Disposition Time: 23:25 <Eulalio Mills - Last Filed: 03/01/17 06:50> - Disposition Diagnosis: Alcohol abuse Disposition: ELOPEMENT - ER ONLY Patient Problems: Current Active Problems Problem Status Diagnosed Abdominal pain Resolved Lactic acidosis Resolved Alcohol intoxication Resolved Alcohol withdrawal Resolved Hypomagnesemia Resolved Condition: UNKNOWN Referrals: PCP,NO [Primary Care Provider] - Follow up with primary
[2017-02-28 19:24] VITALS: TEMP 97.6
[2017-02-28 19:26] VITALS: RESP 18
[2017-02-28 23:19] VITALS: BP 102/62; PULSE 78; O2SAT 97
== END 2017-02-28 23:25 | disposition left against medical advice (07) ==
LOC: ED 18:33
DX: F10.10 Alcohol abuse, uncomplicated (principal)

== ENCOUNTER 2017-03-01 13:33 | Emergency (ER) | payer MEDICAID ==
[2017-03-01 13:33] VITALS: BMI 24.0
[2017-03-01 13:47] VITALS: TEMP 98.8
[2017-03-01] MEDS ORDERED: Alum-Mag Hydrox-Simethicone Susp (30 mL) PO STA (14:35)
--- NOTE | 2017-03-01 14:35 | ED PDOC ---
Arrival/HPI - General Chief Complaint: Alcohol Ingestion Time Seen by Provider: 03/01/17 14:34 Historian: Patient - History of Present Illness Narrative History of Present Illness (Text): 03/01/17 14:34 A 46 year old male, whose past medical history includes alcohol abuse, is brought into the emergency department by EMS for alcohol intoxication. Patient admits to drinking alcohol today. He complains of abdominal pain for the past few days. Patient denies any fever, nausea, vomiting, diarrhea, urinary symptoms , chest pain, shortness of breath, suicidal ideation, homicidal ideation or any other complaints. Patient is well known to emergency room for multiple visits concerning similar complaints. Time/Duration: Prior to Arrival Symptom Course: Unchanged Quality: Other Context: Other Past Medical History - Provider Review Nursing Documentation Reviewed: Yes - Infectious Disease Hx of Infectious Diseases: None - Tetanus Immunization Tetanus Immunization: Up to Date - Reproductive Currently : No - Past Medical History Past Medical History: No Previous - Cardiac Hx Cardiac Disorders: Yes Hx Hypertension: Yes - Pulmonary Hx Tuberculosis: No - Neurological HX Cerebrovascular Accident: No Hx Seizures: No - HEENT Hx HEENT Disorder: No - Renal Hx Renal Disorder: No - Endocrine/Metabolic Hx Endocrine Disorders: No - Hematological/Oncological Hx Cancer: No - Integumentary Hx Dermatological Disorder: No - Musculoskeletal/Rheumatological Hx Musculoskeletal Disorders: Yes Hx Back Pain: Yes Hx Falls: Yes - Gastrointestinal Hx Gastrointestinal Disorders: Yes (GASTRITIS,H/O GI BLEED,FATTY LIVER) Hx Pancreatitis: Yes - Genitourinary/Gynecological Hx Sexually Transmitted Diseases: No - Psychiatric Hx Psychophysiologic Disorder: Yes (DEPRESSION,HOMELESSNESS,SMOKES CIGARETTES 7 TO 1/2 PPD) Hx Depression: Yes Hx Substance Use: No Other/Comment: ETOH - Past Surgical History Past Surgical History: No Previous - Anesthesia Hx Anesthesia: Yes Hx Anesthesia Reactions: No Hx Malignant Hyperthermia: No - Suicidal Assessment Feels Threatened In Home Enviroment: No Family/Social History - Physician Review Nursing Documentation Reviewed: Yes Family/Social History: No Known Family HX Smoking Status: Current Some Days Smoker Hx Alcohol Use: Yes Hx Substance Use: No Hx Substance Use Treatment: No Allergies/Home Meds Allergies/Adverse Reactions: Allergies No Known Allergies Allergy (Verified 02/28/17 18:43) Review of Systems - Physician Review All systems were reviewed & negative as marked: Yes - Review of Systems Constitutional: absent: Fevers Respiratory: absent: SOB Cardiovascular: absent: Chest Pain Gastrointestinal: Abdominal Pain. absent: Diarrhea, Nausea, Vomiting Genitourinary Male: absent: Dysuria, Frequency, Hematuria, Urinary Output Changes Psychiatric: absent: Suicidal Ideation (or Homicidal ideation) Physical Exam Vital Signs Reviewed: Yes Vital Signs Temp Pulse Resp BP Pulse Ox 03/01/17 15:26 95 H 18 110/65 98 03/01/17 13:47 98.8 F 109 H 20 134/86 96 Temperature: Afebrile Blood Pressure: Normal Pulse: Tachycardic Appearance: Positive for: Well-Appearing, Non-Toxic, Comfortable Pain Distress: None Mental Status: Positive for: Alert and Oriented X 3 - Systems Exam Head: Present: Atraumatic, Normocephalic Pupils: Present: PERRL Extroacular Muscles: Present: EOMI Conjunctiva: Present: Normal Mouth: Present: Moist Mucous Membranes Neck: Present: Normal Range of Motion Respiratory/Chest: Present: Clear to Auscultation, Good Air Exchange. No: Respiratory Distress, Accessory Muscle Use Cardiovascular: Present: Regular Rate and Rhythm, Normal S1, S2. No: Murmurs Abdomen: Present: Normal Bowel Sounds. No: Tenderness, Distention, Peritoneal Signs Back: Present: Normal Inspection Upper Extremity: Present: Normal Inspection. No: Cyanosis, Edema Lower Extremity: Present: Normal Inspection. No: Edema Neurological: Present: GCS=15, CN II-XII Intact, Speech Normal Skin: Present: Warm, Dry, Normal Color. No: Rashes Psychiatric: Present: Alert, Oriented x 3, Normal Insight, Normal Concentration Medical Decision Making ED Course and Treatment: 03/01/17 14:34 Impression: A 46 year old male with abdominal pain. Patient brought in for alcohol intoxication, he admits to drinking alcohol today. Differential Diagnosis included but are not limited to: Alcohol abuse, Gastritis Plan: -- Maalox and Pepcid -- Reassess and disposition Progress Notes: 03/01/17 15:00 On re-evaluation, patient feels better and is in no acute distress. I have discussed the results and plan with the patient, who expresses understanding. Patient in agreement with plan to be discharged home. Patient is stable for discharge. Patient was instructed to follow up with physician or return if symptoms worsen or new concerning symptoms arise. - Medication Orders Current Medication Orders: Discontinued Medications Al Hydrox/Mg Hydrox/Simethicone (Maalox Plus 30 Ml) 30 ml PO STAT STA Stop: 03/01/17 14:36 Last Admin: 03/01/17 15:48 Dose: 30 ML Famotidine (Pepcid) 20 mg PO STAT STA Stop: 03/01/17 14:36 Last Admin: 03/01/17 15:48 Dose: 20 MG - Scribe Statement The provider has reviewed the documentation as recorded by the Debbie Cazares Provider Scribe Attestation: All medical record entries made by the Scribe were at my direction and personally dictated by me. I have reviewed the chart and agree that the record accurately reflects my personal performance of the history, physical exam, medical decision making, and the department course for this patient. I have also personally directed, reviewed, and agree with the discharge instructions and disposition. Disposition/Present on Arrival - Present on Arrival Any Indicators Present on Arrival: No History of DVT/PE: No History of Uncontrolled Diabetes: No Urinary Catheter: No History of Decub. Ulcer: No History Surgical Site Infection Following: None - Disposition Have Diagnosis and Disposition been Completed?: Yes Diagnosis: Alcohol dependence, Gastritis Disposition: HOME/ ROUTINE Disposition Time: 15:00 Patient Plan: Discharge Patient Problems: Current Active Problems Problem Status Diagnosed Alcohol dependence Acute Gastritis Chronic Abdominal pain Resolved Lactic acidosis Resolved Alcohol intoxication Resolved Alcohol withdrawal Resolved Hypomagnesemia Resolved Condition: IMPROVED Discharge Instructions (ExitCare): Acute Abdominal Pain (DC) Additional Instructions: Mr Mccormick, thank you for letting us take care of you today. Your provider was Dr. Valentino. You were treated for Abdominal Pain. The emergency medical care you received today was directed at your acute symptoms. If you were prescribed any medication, please fill it and take as directed. It may take several days for your symptoms to resolve. Return to the Emergency Department if your symptoms worsen, do not improve, or if you have any other problems. Please contact your doctor or call one of the physicians/clinics you have been referred to that are listed on the Patient Visit Information form that is included in your discharge packet. Bring any paperwork you were given at discharge with you along with any medications you are taking to your follow up visit. Our treatment cannot replace ongoing medical care by a primary care provider (PCP) outside of the emergency department. Thank you for allowing the [facility] at the [facility] team to be part of your care today. If you had an X-Ray or CT scan: A Radiologist will review the ED reading if any change in treatment is needed we will contact you. If you had a blood, urine, or wound culture: It will take several days for the results, if any change in treatment is needed we will contact you. If you had an STI test: It will take 48 hours for the results. Please call after 1 week if you have not heard back. Prescriptions: Aluminum Hydroxide/Magnesium H [Maalox 30 ml] 30 ml PO Q8 #1 bottle Ranitidine HCl [Zantac] 150 mg PO BID PRN #30 tablet PRN Reason: Pain, Mild (1-3) Referrals: [facility] at [facility] [place] [Outside] - Follow up with primary
[2017-03-01 15:28] VITALS: BP 110/65; PULSE 95; RESP 18; O2SAT 98
== END 2017-03-01 16:10 | disposition home or self-care (01) ==
LOC: ED 13:33
DX: F10.20 Alcohol dependence, uncomplicated (principal); K29.70 Gastritis, unspecified, without bleeding

== ENCOUNTER 2017-03-02 10:21 | Emergency (ER) | payer MEDICAID ==
[2017-03-02 10:21] VITALS: BMI 24.0
[2017-03-02 10:37] VITALS: PULSE 85; RESP 19; TEMP 98.1; O2SAT 98
[2017-03-02] MEDS ORDERED: Alum-Mag Hydrox-Simethicone Susp (30 mL) PO STA (11:02)
--- NOTE | 2017-03-02 11:06 | ED PDOC ---
Arrival/HPI - General Chief Complaint: Alcohol Ingestion Time Seen by Provider: 03/02/17 10:34 Historian: Patient - History of Present Illness Narrative History of Present Illness (Text): 03/02/17 10:50 Angelo Mccormick is a 46 year old male whose past medical history includes Alcohol Abuse, who presents to the Emergency department with complaints of epigastric/ abdominal pain. Patient was seen yesterday for similar symptoms and there is no change from yesterday. Patient states he has not had time to fill for his prescription. Patient admits to drinking this morning. Patient is also homeless and is asking for food. Patient otherwise denies any fever, chills, chest pain, shortness of breath, nausea, vomiting, diarrhea, bloody stool, urinary symptoms , back pain, neck pain, headache, dizziness, suicidal ideations, homicidal ideqations, or any other complaints. Patient is well known in the Emergency department and has been seen in the past for similar complaints. PMD: None Time/Duration: 24 hours Symptom Onset: Gradual Symptom Course: Unchanged Activities at Onset: Rest, Light Context: Street Past Medical History - Provider Review Nursing Documentation Reviewed: Yes - Infectious Disease Hx of Infectious Diseases: None - Tetanus Immunization Tetanus Immunization: Up to Date - Reproductive Currently : No - Past Medical History Past Medical History: No Previous - Cardiac Hx Cardiac Disorders: Yes Hx Hypertension: Yes - Pulmonary Hx Tuberculosis: No - Neurological HX Cerebrovascular Accident: No Hx Seizures: No - HEENT Hx HEENT Disorder: No - Renal Hx Renal Disorder: No - Endocrine/Metabolic Hx Endocrine Disorders: No - Hematological/Oncological Hx Cancer: No - Integumentary Hx Dermatological Disorder: No - Musculoskeletal/Rheumatological Hx Musculoskeletal Disorders: Yes Hx Back Pain: Yes Hx Falls: Yes - Gastrointestinal Hx Gastrointestinal Disorders: Yes (GASTRITIS,H/O GI BLEED,FATTY LIVER) Hx Pancreatitis: Yes - Genitourinary/Gynecological Hx Sexually Transmitted Diseases: No - Psychiatric Hx Psychophysiologic Disorder: Yes (DEPRESSION,HOMELESSNESS,SMOKES CIGARETTES 7 TO 1/2 PPD) Hx Depression: Yes Hx Substance Use: No Other/Comment: ETOH - Past Surgical History Past Surgical History: No Previous - Anesthesia Hx Anesthesia: Yes Hx Anesthesia Reactions: No Hx Malignant Hyperthermia: No - Suicidal Assessment Feels Threatened In Home Enviroment: No Family/Social History - Physician Review Nursing Documentation Reviewed: Yes Family/Social History: No Known Family HX Smoking Status: Heavy Smoker > 10 Cigarettes Daily Hx Alcohol Use: Yes Frequency of alcohol use: Daily Hx Substance Use: No Hx Substance Use Treatment: No Allergies/Home Meds Allergies/Adverse Reactions: Allergies No Known Allergies Allergy (Verified 03/02/17 10:38) Review of Systems - Physician Review All systems were reviewed & negative as marked: Yes - Review of Systems Constitutional: Normal. absent: Fevers Eyes: Normal ENT: Normal Respiratory: Normal. absent: SOB, Cough Cardiovascular: Normal Gastrointestinal: Abdominal Pain (Epigastric/Abdominal Pain). absent: Diarrhea , Nausea, Vomiting Genitourinary Male: Normal. absent: Dysuria, Frequency, Hematuria, Urinary Output Changes Musculoskeletal: Normal. absent: Back Pain, Neck Pain Skin: Normal Neurological: Normal. absent: Headache, Dizziness Endocrine: Normal Hemo/Lymphatic: Normal Psychiatric: Normal (Homicidal Ideations). absent: Suicidal Ideation, Other ( Ideations) Physical Exam Vital Signs Reviewed: Yes Vital Signs Temp Pulse Resp Pulse Ox 03/02/17 10:34 98.1 F 85 19 98 Temperature: Afebrile Blood Pressure: Normal Pulse: Regular Respiratory Rate: Normal Appearance: Positive for: Well-Appearing, Non-Toxic, Comfortable Pain Distress: None Mental Status: Positive for: Alert and Oriented X 3 - Systems Exam Head: Present: Atraumatic, Normocephalic Pupils: Present: PERRL Extroacular Muscles: Present: EOMI Conjunctiva: Present: Normal Mouth: Present: Moist Mucous Membranes Respiratory/Chest: Present: Clear to Auscultation, Good Air Exchange. No: Respiratory Distress, Accessory Muscle Use Cardiovascular: Present: Regular Rate and Rhythm, Normal S1, S2. No: Murmurs Abdomen: Present: Normal Bowel Sounds. No: Tenderness, Distention, Peritoneal Signs Neurological: Present: GCS=15, CN II-XII Intact, Speech Normal Skin: Present: Warm, Dry, Normal Color. No: Rashes Psychiatric: Present: Alert, Oriented x 3, Normal Insight, Normal Concentration Medical Decision Making ED Course and Treatment: 03/02/17 10:50 Impression: 46 year old male with epigastric/abdominal discomfort. Differential Diagnosis include but are not limited to: Alcohol use and Gastritis Plan: -- Maalox -- Pepcid -- Reassess and disposition Prior Visits: Notes and results from previous visits were reviewed. Patient was last seen in the Emergency department on 03/01/2017 for alcohol intoxication and abdominal discomfort. Progress Notes: 03/02/17 11:00 Patient is not clinically intoxicated. On re-evaluation, the patient feels better and is in no acute distress. I have discussed the plan with the patient, who expresses understanding. Patient in agreement with plan to discharged home. He says he's homeless and so we gave him a list of homeless shelters. Patient is stable for discharge. Patient was instructed to fill his prescription and to follow up with [facility] in 1-2 days or return if symptoms worsen or new concerning symptoms arise. 03/02/17 11:23 - Medication Orders Current Medication Orders: Discontinued Medications Al Hydrox/Mg Hydrox/Simethicone (Maalox Plus 30 Ml) 30 ml PO STAT STA Stop: 03/02/17 11:03 Last Admin: 03/02/17 11:09 Dose: 30 ML Famotidine (Pepcid) 20 mg PO STAT STA Stop: 03/02/17 11:03 Last Admin: 03/02/17 11:13 Dose: 20 MG - Scribe Statement The provider has reviewed the documentation as recorded by the Debbie Scott Provider Attestation: All medical record entries made by the Debbie were at my direction and personally dictated by me. I have reviewed the chart and agree that the record accurately reflects my personal performance of the history, physical exam, medical decision making, and the department course for this patient. I have also personally directed, reviewed, and agree with the discharge instructions and disposition. Disposition/Present on Arrival - Present on Arrival Any Indicators Present on Arrival: No History of DVT/PE: No History of Uncontrolled Diabetes: No Urinary Catheter: No History of Decub. Ulcer: No History Surgical Site Infection Following: None - Disposition Have Diagnosis and Disposition been Completed?: Yes Diagnosis: Alcohol dependence, Gastritis Disposition: HOME/ ROUTINE Disposition Time: 11:06 Patient Plan: Discharge Patient Problems: Current Active Problems Problem Status Diagnosed Alcohol dependence Acute Gastritis Chronic Abdominal pain Resolved Lactic acidosis Resolved Alcohol intoxication Resolved Alcohol withdrawal Resolved Hypomagnesemia Resolved Condition: GOOD Discharge Instructions (ExitCare): Gastritis (DC), Abuse of Alcohol (ED) Additional Instructions: Yararosendo, thank you for letting us take care of you today. Your provider was Dr. Valentino. You were treated for Alcohol Abuse, Homelessness, Abdominal Pain. The emergency medical care you received today was directed at your acute symptoms. If you were prescribed any medication, please fill it and take as directed. It may take several days for your symptoms to resolve. Return to the Emergency Department if your symptoms worsen, do not improve, or if you have any other problems. Please contact your doctor or call one of the physicians/clinics you have been referred to that are listed on the Patient Visit Information form that is included in your discharge packet. Bring any paperwork you were given at discharge with you along with any medications you are taking to your follow up visit. Our treatment cannot replace ongoing medical care by a primary care provider (PCP) outside of the emergency department. Thank you for allowing the [employer] team to be part of your care today. If you had an X-Ray or CT scan: A Radiologist will review the ED reading if any change in treatment is needed we will contact you. If you had a blood, urine, or wound culture: It will take several days for the results, if any change in treatment is needed we will contact you. If you had an STI test: It will take 48 hours for the results. Please call after 1 week if you have not heard back. Referrals: [facility] at [facility] [place] [Outside] - Follow up with primary
[2017-03-02 11:27] VITALS: BP 127/82
== END 2017-03-02 11:27 | disposition home or self-care (01) ==
LOC: ED 10:21
DX: F10.20 Alcohol dependence, uncomplicated (principal); K29.70 Gastritis, unspecified, without bleeding

== ENCOUNTER 2017-03-03 21:37 | Emergency (ER) | payer MEDICAID ==
[2017-03-03 22:06] VITALS: BP 121/88; PULSE 85; RESP 16; TEMP 98.2; O2SAT 98; BMI 26.6
== END 2017-03-03 22:20 | disposition left against medical advice (07) ==
LOC: ED 21:37
DX: Z02.89 Encounter for other administrative examinations (principal); Z00.00 Encounter for general adult medical examination without abnormal findings

== ENCOUNTER 2017-03-06 18:18 | Emergency (ER) | payer MEDICAID ==
[2017-03-06 18:24] VITALS: BP 122/79; PULSE 104; RESP 16; TEMP 98.1; O2SAT 99
[2017-03-06 18:26] VITALS: BMI 23.4
--- NOTE | 2017-03-06 18:54 | ED PDOC ---
Arrival/HPI - General Chief Complaint: Alcohol Ingestion Time Seen by Provider: 03/06/17 18:50 Historian: Patient, EMS - History of Present Illness Narrative History of Present Illness (Text): 03/06/17 18:50 A 46 year old male, whose past medical history includes alcohol abuse, is brought into the emergency department via EMS for reported alcohol intoxication. Patient admits to drinking alcohol today. He reports no acute symptoms such as any new onset chest pain, shortness of breath, abdominal pain, nausea, vomiting, or any other physical complaints at this time. No SI or HI. Time/Duration: Prior to Arrival Symptom Onset: Sudden Symptom Course: Unchanged Quality: Other Activities at Onset: Rest Context: Other Past Medical History - Provider Review Nursing Documentation Reviewed: Yes - Infectious Disease Hx of Infectious Diseases: None - Tetanus Immunization Tetanus Immunization: Up to Date - Reproductive Currently : No - Past Medical History Past Medical History: No Previous - Cardiac Hx Cardiac Disorders: Yes Hx Hypertension: Yes - Pulmonary Hx Respiratory Disorders: No Hx Tuberculosis: No - Neurological HX Cerebrovascular Accident: No Hx Seizures: No - HEENT Hx HEENT Disorder: No - Renal Hx Renal Disorder: No - Endocrine/Metabolic Hx Endocrine Disorders: No - Hematological/Oncological Hx Blood Disorders: No Hx Cancer: No - Integumentary Hx Dermatological Disorder: No - Musculoskeletal/Rheumatological Hx Musculoskeletal Disorders: Yes Hx Back Pain: Yes Hx Falls: Yes - Gastrointestinal Hx Gastrointestinal Disorders: Yes (GASTRITIS,H/O GI BLEED,FATTY LIVER) Hx Pancreatitis: Yes - Genitourinary/Gynecological Hx Genitourinary Disorders: No Hx Sexually Transmitted Diseases: No - Psychiatric Hx Psychophysiologic Disorder: Yes (DEPRESSION,HOMELESSNESS,SMOKES CIGARETTES 7 TO 1/2 PPD) Hx Depression: Yes Hx Substance Use: No Other/Comment: ETOH - Past Surgical History Past Surgical History: No Previous - Anesthesia Hx Anesthesia: Yes Hx Anesthesia Reactions: No Hx Malignant Hyperthermia: No - Suicidal Assessment Feels Threatened In Home Enviroment: No Family/Social History - Physician Review Nursing Documentation Reviewed: Yes Family/Social History: Unknown Family HX Smoking Status: Heavy Smoker > 10 Cigarettes Daily Hx Alcohol Use: Yes Frequency of alcohol use: Daily Hx Substance Use: No Hx Substance Use Treatment: No Allergies/Home Meds Allergies/Adverse Reactions: Allergies No Known Allergies Allergy (Verified 03/06/17 18:27) Home Medications: Home Meds Medication Instructions Recorded Confirmed No Known Home Med 03/06/17 03/06/17 Review of Systems - Physician Review All systems were reviewed & negative as marked: Yes - Review of Systems Constitutional: absent: Fevers Respiratory: absent: SOB Cardiovascular: absent: Chest Pain Gastrointestinal: absent: Abdominal Pain (Chronic - no changes), Nausea, Vomiting Psychiatric: Other (no suicidal/homicidal ideations or visual/auditory hallucinations.). absent: Suicidal Ideation Physical Exam Vital Signs Reviewed: Yes Vital Signs Temp Pulse Resp BP Pulse Ox 03/06/17 18:23 98.1 F 104 H 16 122/79 99 Temperature: Afebrile Blood Pressure: Normal Pulse: Tachycardic Respiratory Rate: Normal Appearance: Positive for: Well-Appearing, Non-Toxic, Comfortable Pain Distress: None Mental Status: Positive for: Alert and Oriented X 3 - Systems Exam Head: Present: Atraumatic, Normocephalic Pupils: Present: PERRL Conjunctiva: Present: Normal Mouth: Present: Moist Mucous Membranes Pharnyx: Present: Normal. No: ERYTHEMA Neck: Present: Normal Range of Motion Respiratory/Chest: Present: Clear to Auscultation, Good Air Exchange. No: Respiratory Distress, Accessory Muscle Use Cardiovascular: Present: Normal S1, S2, Tachycardic. No: Murmurs Abdomen: Present: Normal Bowel Sounds. No: Tenderness, Distention, Peritoneal Signs Back: Present: Normal Inspection Upper Extremity: Present: Normal Inspection. No: Cyanosis, Edema Lower Extremity: Present: Normal Inspection. No: Edema Neurological: Present: GCS=15, CN II-XII Intact, Speech Normal Skin: Present: Warm, Dry, Normal Color. No: Rashes Psychiatric: Present: Alert, Oriented x 3 Medical Decision Making ED Course and Treatment: 03/06/17 18:50 Impression: A 46 year old homeless male, who is well known the the emergency department staff is brought in for alcohol abuse. Patient is awake, alert and oriented x3 and ambulatory without difficulty. Patient physical examination in unremarkable. Differential Diagnosis include but are not limited to: alcohol abuse vs. homelessness Plan: -- Disposition Prior Visits: Notes and results from previous visits were reviewed. Patient presents multiple times in a week for similar complaints. Progress Notes: 03/06/17 18:55 The patient is in no acute distress. He is awake, alert and oriented time three. Patient has a steady gait. I have discussed the results and plan with the patient. Patient in agreement with plan to discharged home. Patient is stable for discharge. Patient was instructed to follow up clinic or return if symptoms worsen or new concerning symptoms arise. - Scribe Statement The provider has reviewed the documentation as recorded by the Scribe Mena Momin Provider Scribe Attestation: All medical record entries made by the Scribe were at my direction and personally dictated by me. I have reviewed the chart and agree that the record accurately reflects my personal performance of the history, physical exam, medical decision making, and the department course for this patient. I have also personally directed, reviewed, and agree with the discharge instructions and disposition. Disposition/Present on Arrival - Present on Arrival Any Indicators Present on Arrival: No History of DVT/PE: No History of Uncontrolled Diabetes: No Urinary Catheter: No History of Decub. Ulcer: No History Surgical Site Infection Following: None - Disposition Have Diagnosis and Disposition been Completed?: Yes Diagnosis: Alcohol abuse Disposition: HOME/ ROUTINE Disposition Time: 19:00 Patient Plan: Discharge Patient Problems: Current Active Problems Problem Status Diagnosed Abdominal pain Resolved Lactic acidosis Resolved Alcohol intoxication Resolved Alcohol withdrawal Resolved Hypomagnesemia Resolved Condition: GOOD Discharge Instructions (ExitCare): Abuse of Alcohol (ED) Additional Instructions: Stop alcohol use. Follow up with [facility]. Return to the emergency department if any new concerning symptoms. Referrals: [facility] [Outside] - Follow up with primary
== END 2017-03-06 19:14 | disposition home or self-care (01) ==
LOC: ED 18:18
DX: F10.10 Alcohol abuse, uncomplicated (principal); Z59.0 Homelessness; F17.210 Nicotine dependence, cigarettes, uncomplicated

== ENCOUNTER 2017-03-26 18:01 | Inpatient (IN) | payer MEDICAID ==
[2017-03-26 18:06] VITALS: BMI 26.4
--- NOTE | 2017-03-26 18:19 | ED PDOC ---
Arrival/HPI - General Chief Complaint: Alcohol Ingestion Time Seen by Provider: 03/26/17 18:15 Historian: Patient, EMS EM Caveat: Intoxicated - History of Present Illness Narrative History of Present Illness (Text): 03/26/17 18:16 A 47 year old male, whose past medical history includes alcohol intoxication, is brought into the emergency department via EMS after being found by [place] police on the side walk intoxicated. Patient appeared too weak to ambulate so he was brought the the emergency department. Patient admits to heavy alcohol use earlier today. HPI and ROS limited because patient is still intoxicated. Past Medical History - Provider Review Nursing Documentation Reviewed: Yes - Infectious Disease Hx of Infectious Diseases: None - Tetanus Immunization Tetanus Immunization: Up to Date - Reproductive Currently : No - Past Medical History Past Medical History: No Previous - Cardiac Hx Cardiac Disorders: Yes Hx Hypertension: Yes - Pulmonary Hx Respiratory Disorders: No Hx Tuberculosis: No - Neurological HX Cerebrovascular Accident: No Hx Seizures: No - HEENT Hx HEENT Disorder: No - Renal Hx Renal Disorder: No - Endocrine/Metabolic Hx Endocrine Disorders: No - Hematological/Oncological Hx Blood Disorders: No Hx Cancer: No - Integumentary Hx Dermatological Disorder: No - Musculoskeletal/Rheumatological Hx Musculoskeletal Disorders: Yes Hx Back Pain: Yes Hx Falls: Yes - Gastrointestinal Hx Gastrointestinal Disorders: Yes (GASTRITIS,H/O GI BLEED,FATTY LIVER) Hx Pancreatitis: Yes - Genitourinary/Gynecological Hx Genitourinary Disorders: No Hx Sexually Transmitted Diseases: No - Psychiatric Hx Psychophysiologic Disorder: Yes (DEPRESSION,HOMELESSNESS,SMOKES CIGARETTES 7 TO 1/2 PPD) Hx Depression: Yes Hx Substance Use: No Other/Comment: ETOH - Past Surgical History Past Surgical History: No Previous - Anesthesia Hx Anesthesia: Yes Hx Anesthesia Reactions: No Hx Malignant Hyperthermia: No - Suicidal Assessment Feels Threatened In Home Enviroment: No Family/Social History - Physician Review Nursing Documentation Reviewed: Yes Family/Social History: Unknown Family HX Smoking Status: Heavy Smoker > 10 Cigarettes Daily Hx Alcohol Use: Yes Frequency of alcohol use: Daily Hx Substance Use: No Hx Substance Use Treatment: No Allergies/Home Meds Allergies/Adverse Reactions: Allergies No Known Allergies Allergy (Verified 03/26/17 18:04) Home Medications: Home Meds Medication Instructions Recorded Confirmed No Known Home Med 03/06/17 03/26/17 Review of Systems - Review of Systems Systems not reviewed;Unavailable: Intoxicated Physical Exam Vital Signs Reviewed: Yes Vital Signs Temp Pulse Resp BP Pulse Ox 03/26/17 21:36 106 H 16 101/48 L 99 03/26/17 20:29 98.6 F 96 H 19 123/81 100 Temperature: Afebrile Blood Pressure: Normal Pulse: Regular Respiratory Rate: Normal Appearance: Positive for: Other (disheveled) Pain Distress: None Mental Status: No: Confused, Agitated, Lethargic, Comatose - Systems Exam Head: Present: Atraumatic, Normocephalic Pupils: Present: PERRL Conjunctiva: Present: Normal Mouth: Present: Moist Mucous Membranes, Other (alcohol on breath) Pharnyx: Present: Normal. No: ERYTHEMA, EXUDATE Neck: Present: Normal Range of Motion Respiratory/Chest: Present: Clear to Auscultation, Good Air Exchange. No: Respiratory Distress, Accessory Muscle Use Cardiovascular: Present: Regular Rate and Rhythm, Normal S1, S2. No: Murmurs Abdomen: Present: Normal Bowel Sounds. No: Tenderness, Distention, Peritoneal Signs Back: Present: Normal Inspection Upper Extremity: Present: Normal Inspection. No: Cyanosis, Edema Lower Extremity: Present: Other (raw skin right thigh c/w abrasion). No: Edema Neurological: Present: GCS=15, CN II-XII Intact, Speech Normal Skin: Present: Warm, Dry, Normal Color. No: Rashes Psychiatric: Present: Alert, Oriented x 3, Normal Insight, Normal Concentration , Intoxicated Medical Decision Making ED Course and Treatment: 03/26/17 18:16 Impression: A 47 year old male with alcohol intoxication Differential Diagnosis include but are not limited to: alcohol abuse Plan: -- Sobriety -- Reassess and disposition Prior Visits: Notes and results from previous visits were reviewed. The patient is well known to the emergency department, present multiple times for the same thing Progress Notes: 03/26/17 22:35 Patient is intoxicated and sleeping. No evidence of trauma. Will await sobriety. Patient will be endorsed to Dr. Mills. - Scribe Statement The provider has reviewed the documentation as recorded by the Tedibaudi Momin Provider Scribe Attestation: All medical record entries made by the Debbie were at my direction and personally dictated by me. I have reviewed the chart and agree that the record accurately reflects my personal performance of the history, physical exam, medical decision making, and the department course for this patient. I have also personally directed, reviewed, and agree with the discharge instructions and disposition. Disposition/Present on Arrival - Present on Arrival Any Indicators Present on Arrival: No History of DVT/PE: No History of Uncontrolled Diabetes: No Urinary Catheter: No History of Decub. Ulcer: No History Surgical Site Infection Following: None - Disposition Have Diagnosis and Disposition been Completed?: No Diagnosis: Alcohol abuse, Alcohol intoxication Disposition Time: 23:00 Condition: STABLE
--- NOTE | 2017-03-27 00:45 | ED PDOC ---
Physical Exam Vital Signs Reviewed: Yes Vital Signs Temp Pulse Resp BP Pulse Ox 03/27/17 02:48 100/53 L 03/27/17 01:51 111 H 16 99/53 L 95 03/27/17 00:40 113 H 18 87/51 L 96 03/26/17 21:36 106 H 16 101/48 L 99 03/26/17 20:29 98.6 F 96 H 19 123/81 100 Temperature: Afebrile Blood Pressure: Normal Pulse: Tachycardic Respiratory Rate: Normal Appearance: Positive for: Comfortable Pain Distress: None Mental Status: Positive for: Alert and Oriented X 3 Medical Decision Making ED Course and Treatment: 03/27/17 00:44 Case endorsed to me by , pending sobriety, reevaluation and disposition. Patient is a 47 year old male who presents to ed via EMS for public intoxication. Denies any somatic or psychiatric complaints. 03/27/17 01:24 Patient is currently hypotensive. Will order labs. cbc reveals anemia, pt admits to passing blood in stool will order type and screen and admit 03/27/17 02:27 Patient with a hct of 27.1. Case discussed with Dr. Caraballo who agrees with the plan to admit patient to telemetry for anemia. Accepts patient under hospitalist service. 03/27/17 06:35 - Lab Interpretations Lab Results: 03/27/17 00:50 03/27/17 00:50 Lab Results 03/27/17 00:50: Alcohol, Quantitative 306 H* 03/27/17 00:50: Sodium 127 L, Potassium 4.1, Chloride 88 L, Carbon Dioxide 27, Anion Gap 16, BUN 6 L, Creatinine 0.6, Est GFR ( Amer) > 60, Est GFR (Non -Af Amer) > 60, Random Glucose 78, Calcium 8.6, Total Bilirubin 5.3 H, AST 681 H , ALT 139 H, Alkaline Phosphatase 386 H, Total Protein 7.9, Albumin 3.4, Globulin 4.5, Albumin/Globulin Ratio 0.8 L 03/27/17 00:50: WBC 12.2 H D, RBC 2.83 L, Hgb 10.2 L, Hct 27.1 L, MCV 95.8, MCH 36.0 H, MCHC 37.6 H, RDW 18.5 H, Plt Count 170, MPV 10.5, Gran % 78.3 H, Lymph % (Auto) 11.1 L, [place] % (Auto) 10.1 H, Eos % (Auto) 0.4 L, Baso % (Auto) 0.1, Gran # 9.57 H, Lymph # 1.4, [place] # 1.2 H, Eos # 0.1, Baso # 0.01 - Medication Orders Current Medication Orders: Sodium Chloride (Sodium Chloride 0.9%) 1,000 mls @ 1,000 mls/hr IV .Q1H VÍCTOR Last Admin: 03/27/17 02:18 Dose: Discontinued Medications Pantoprazole Sodium (Protonix Inj) 40 mg IVP ONCE STA Stop: 03/27/17 02:08 Last Admin: 03/27/17 02:48 Dose: 40 mg - Scribe Statement The provider has reviewed the documentation as recorded by the Debbie Chong Provider Attestation: All medical record entries made by the Debbie were at my direction and personally dictated by me. I have reviewed the chart and agree that the record accurately reflects my personal performance of the history, physical exam, medical decision making, and the department course for this patient. I have also personally directed, reviewed, and agree with the discharge instructions and disposition. Disposition/Present on Arrival - Present on Arrival Any Indicators Present on Arrival: No History of DVT/PE: No History of Uncontrolled Diabetes: No Urinary Catheter: No History of Decub. Ulcer: No History Surgical Site Infection Following: None - Disposition Have Diagnosis and Disposition been Completed?: Yes Diagnosis: Alcohol abuse, Alcohol intoxication, Anemia, Gastrointestinal bleeding Disposition: HOSPITALIZED Disposition Time: 02:25 Patient Problems: Current Active Problems Problem Status Onset Alcohol intoxication Acute Alcohol abuse Chronic Condition: STABLE
[2017-03-27] MEDS: Sodium Chloride 0.9% 1,000 ML IV SCH ×3 (00:55→03:29)
[2017-03-27 00:59] LABS: ADD MANUAL DIFF? NO
[2017-03-27 01:37] LABS: ALB/GLOB RATIO 0.8 (1.1-1.8); ALKALINE PHOSPHATASE 386 U/L (38-133); ALT/SGPT 139 U/L (7-56); AST/SGOT 681 U/L (15-59); BILIRUBIN,TOTAL 5.3 mg/dL (0.2-1.3); BLOOD UREA NITROGEN 6 mg/dL (7-21); CALCIUM 8.6 mg/dL (8.4-10.5); CARBON DIOXIDE 27 mmol/L (21-33); CHLORIDE 88 mmol/L (98-107); GFR AFRICAN-AMERICAN > 60; GLUCOSE,RANDOM 78 mg/dL (70-110); POTASSIUM 4.1 mmol/L (3.6-5.0); SODIUM 127 mmol/L (132-148); TOTAL PROTEIN 7.9 g/dL (5.8-8.3)
[2017-03-27 01:38] LABS: BASO # 0.01 K/mm3 (0.0-2.0); BASO % 0.1 % (0.0-3.0); EOS # 0.1 (0.0-0.7); EOS % 0.4 % (1.5-5.0); GRAN # 9.57 (1.4-6.5); GRAN % 78.3 % (50.0-68.0); HEMATOCRIT 27.1 % (42.0-52.0); LYMPH # 1.4 (1.2-3.4); LYMPH % 11.1 % (22.0-35.0); MEAN CELL VOLUME 95.8 fL (80.0-105.0); MEAN CORPUSCULAR HGB CONC 37.6 g/dl (31.0-37.0); MEAN PLATELET VOLUME 10.5 fl (7.0-11.0); MONO # 1.2 (0.1-0.6); MONO % 10.1 % (1.0-6.0); PLATELET COUNT 170 10^3/uL (120.0-450.0); RED CELL DISTRIBUTION WIDTH 18.5 % (11.5-14.5)
[2017-03-27 01:47] LABS: WHITE BLOOD COUNT 12.2 10^3/ul (4.5-11.0)
[2017-03-27 03:04] LABS: INR 1.19 (0.93-1.08); PARTIAL THROMBOPLASTIN TIME 30.5 Seconds (23.7-30.8)
[2017-03-27] MEDS ORDERED: Multivitamin (MVI) 10 ML, Thiamine 100 MG, Folic Acid 1 MG in Sodium Chloride 0.9% 1,00... IV ONE ×2 (03:25→13:28)
[2017-03-27] MEDS ORDERED: Sodium Chloride 0.9% 1,000 ML IV STA (03:25)
[2017-03-27] MEDS: Pantoprazole 40mg/100ml IVPB 40 MG/100 ML BAG IVPB SCH ×4 (03:56→19:47)
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
[2017-03-27] MEDS: Vancomycin 1gm in NS 250ml 1 GM/250 ML BAG IVPB SCH ×2 (04:10→18:40)
[2017-03-27 06:01] LABS: HEMATOCRIT 27.6 % (42.0-52.0); MEAN CELL VOLUME 96.8 fL (80.0-105.0); MEAN CORPUSCULAR HEMOGLOBIN 35.4 pg (25.0-35.0); MEAN CORPUSCULAR HGB CONC 36.6 g/dl (31.0-37.0); MEAN PLATELET VOLUME 10.5 fl (7.0-11.0); RED CELL DISTRIBUTION WIDTH 18.9 % (11.5-14.5); WHITE BLOOD COUNT 10.4 10^3/ul (4.5-11.0)
[2017-03-27 07:33] LABS: URINE APPEARANCE CLEAR (CLEAR); URINE BILIRUBIN NEGATIVE (NEGATIVE); URINE BLOOD TRACE-LYSED (NEGATIVE); URINE COLOR LIGHT YELLOW (YELLOW); URINE GLUCOSE (UA) NEGATIVE (NEGATIVE); URINE KETONE NEGATIVE (NEGATIVE); URINE LEUKOCYTE ESTERASE NEGATIVE Leu/uL (NEGATIVE); URINE PROTEIN NEGATIVE mg/dL (<30 mg/dL); URINE UROBILINOGEN 0.2 E.U./dL (<1 E.U./dL)
[2017-03-27 07:36] LABS: URINE BACTERIA FEW (NEG); URINE EPITHELIAL CELLS 0 - 2 /hpf (0-5); URINE RBC 0 - 2 /hpf (0-2); URINE WBC 0 - 2 /hpf (0-6)
--- NOTE | 2017-03-27 08:59 | RAD ---
HISTORY: cp COMPARISON: 02/14/2017 FINDINGS: LUNGS: There is a right-sided perihilar infiltrate. PLEURA: No significant pleural effusion identified, no pneumothorax apparent. CARDIOVASCULAR: Normal. OSSEOUS STRUCTURES: No significant abnormalities. VISUALIZED UPPER ABDOMEN: Normal. OTHER FINDINGS: None. IMPRESSION: Right-sided perihilar infiltrate
[2017-03-27] MEDS ORDERED: Albuterol-Ipratrop 3 mg / 0.5 (3 ml) UD IH PRN (10:29)
--- NOTE | 2017-03-27 11:26 | CARD ---
APPROVED REPORT EKG Measurement Heart [id number] <Conclusion> Sinus tachycardia Possible Left atrial enlargement Borderline ECG
[2017-03-27 12:00] LABS: ALB/GLOB RATIO 0.7 (1.1-1.8); ALKALINE PHOSPHATASE 360 U/L (38-133); ALT/SGPT 122 U/L (7-56); AST/SGOT 621 U/L (15-59); BILIRUBIN,TOTAL 5.5 mg/dL (0.2-1.3); BLOOD UREA NITROGEN 6 mg/dL (7-21); CALCIUM 7.8 mg/dL (8.4-10.5); CARBON DIOXIDE 25 mmol/L (21-33); CHLORIDE 98 mmol/L (98-107); GFR AFRICAN-AMERICAN > 60; GLUCOSE,RANDOM 63 mg/dL (70-110); HEMATOCRIT 25.3 % (42.0-52.0); MAGNESIUM 1.3 mg/dL (1.7-2.2); MEAN CELL VOLUME 98.1 fL (80.0-105.0); MEAN CORPUSCULAR HGB CONC 36.8 g/dl (31.0-37.0); MEAN PLATELET VOLUME 10.1 fl (7.0-11.0); PHOSPHOROUS 2.8 mg/dL (2.5-4.5); POTASSIUM 3.5 mmol/L (3.6-5.0); RED CELL DISTRIBUTION WIDTH 19.2 % (11.5-14.5); SODIUM 133 mmol/L (132-148); TOTAL PROTEIN 7.2 g/dL (5.8-8.3); WHITE BLOOD COUNT 8.2 10^3/ul (4.5-11.0)
[2017-03-27] MEDS: Piperacillin/Tazobact 3.375 gm 100 ML IVPB SCH ×2 (12:17→18:02)
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
[2017-03-27 18:52] LABS: HEMATOCRIT 25.6 % (42.0-52.0); MEAN CELL VOLUME 99.2 fL (80.0-105.0); MEAN CORPUSCULAR HEMOGLOBIN 35.7 pg (25.0-35.0); MEAN CORPUSCULAR HGB CONC 35.9 g/dl (31.0-37.0); MEAN PLATELET VOLUME 10.2 fl (7.0-11.0); RED CELL DISTRIBUTION WIDTH 19.6 % (11.5-14.5); WHITE BLOOD COUNT 7.2 10^3/ul (4.5-11.0)
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
[2017-03-27] MEDS: Nystatin-Triamcinolone Ointment(30 gm) TOP SCH (21:14)
[2017-03-28] MEDS: Vancomycin 1gm in NS 250ml 1 GM/250 ML BAG IVPB SCH ×2 (04:40→16:30)
[2017-03-28 06:38] LABS: ADD MANUAL DIFF? NO
[2017-03-28 06:58] LABS: ALB/GLOB RATIO 0.7 (1.1-1.8); ALKALINE PHOSPHATASE 380 U/L (38-133); ALT/SGPT 101 U/L (7-56); AST/SGOT 511 U/L (15-59); BLOOD UREA NITROGEN 8 mg/dL (7-21); CALCIUM 8.3 mg/dL (8.4-10.5); CARBON DIOXIDE 28 mmol/L (21-33); CHLORIDE 96 mmol/L (98-107); GFR AFRICAN-AMERICAN > 60; GLUCOSE,RANDOM 67 mg/dL (70-110); SODIUM 133 mmol/L (132-148); TOTAL PROTEIN 7.2 g/dL (5.8-8.3)
[2017-03-28 07:02] LABS: BASO # 0.05 K/mm3 (0.0-2.0); BASO % 0.6 % (0.0-3.0); EOS # 0.1 (0.0-0.7); EOS % 0.9 % (1.5-5.0); GRAN # 5.92 (1.4-6.5); HEMATOCRIT 26.1 % (42.0-52.0); LYMPH # 1.3 (1.2-3.4); LYMPH % 16.1 % (22.0-35.0); MEAN CELL VOLUME 100.4 fL (80.0-105.0); MEAN CORPUSCULAR HEMOGLOBIN 35.8 pg (25.0-35.0); MEAN CORPUSCULAR HGB CONC 35.6 g/dl (31.0-37.0); MEAN PLATELET VOLUME 10.1 fl (7.0-11.0); MONO # 0.9 (0.1-0.6); MONO % 10.4 % (1.0-6.0); PLATELET COUNT 109 10^3/uL (120.0-450.0); RED CELL DISTRIBUTION WIDTH 19.7 % (11.5-14.5); WHITE BLOOD COUNT 8.2 10^3/ul (4.5-11.0)
[2017-03-28 07:32] LABS: POTASSIUM 2.8 mmol/L (3.6-5.0)
[2017-03-28 07:52] LABS: MAGNESIUM 1.6 mg/dL (1.7-2.2); PHOSPHOROUS 2.5 mg/dL (2.5-4.5)
[2017-03-28] MEDS ORDERED: Magnesium Oxide 400 mg Tab UD PO ONE (08:52)
--- NOTE | 2017-03-28 10:31 | CP.PCM.PN ---
Subjective - Date & Time of Evaluation Date of Evaluation: 03/28/17 Time of Evaluation: 09:30 - Subjective Subjective: Patient seen and examined, getting ultrasound examination. He complains of persistent abdominal pain. No vomiting. He reports having bloody BM this morning, although not witnessed by RN. ROS otherwise negative in detail Objective - Vital Signs/Intake and Output Vital Signs (last 24 hours): Temp Pulse Resp BP Pulse Ox 99.9 F H 62 20 122/70 92 L 03/28/17 00:00 03/28/17 05:08 03/28/17 00:00 03/28/17 00:00 03/28/17 00:00 Intake and Output: 03/28/17 03/28/17 06:59 18:59 Intake Total 1190 Output Total 2150 Balance -960 - Medications Medications: Current Medications Albuterol/Ipratropium (Duoneb 3 Mg/0.5 Mg (3 Ml) Ud) 3 ml IH [id number] PRN PRN Reason: Shortness of Breath Pantoprazole Sodium (Protonix 40mg Ivpb) 40 mg in 100 mls @ 20 mls/hr IVPB .Q5H VÍCTOR Last Admin: 03/28/17 04:31 Dose: 20 mls/hr Vancomycin HCl (Vancomycin 1gm) 1 gm in 250 mls @ 167 mls/hr IVPB Q12H VÍCTOR PRN Reason: Protocol Last Admin: 03/28/17 04:40 Dose: 167 mls/hr Potassium Chloride (Potassium Chloride 20 Meq/100 Ml) 20 meq in 100 mls @ 50 mls/hr IVPB Q2H VÍCTOR Stop: 03/28/17 12:59 Lorazepam (Ativan) 1 mg IVP Q2H PRN; Protocol PRN Reason: Anxiety Lorazepam (Ativan) 1 mg IVP Q4 VÍCTOR PRN Reason: Protocol Last Admin: 03/28/17 10:00 Dose: Not Given Mupirocin (Bactroban Ointment) 0 gm TOP BID [facility] Last Admin: 03/27/17 17:59 Dose: Not Given Nystatin/Triamcinolone Acetonide (Nystatin/Triamcinolone Ointment) 1 gm TOP BID [facility]CTOR Last Admin: 03/27/17 21:14 Dose: 1 applic - Labs Labs: 03/28/17 06:00 03/28/17 06:00 PT 12.8 Seconds (9.9-11.8) H 03/27/17 02:25 INR 1.19 (0.93-1.08) H 03/27/17 02:25 APTT 30.5 Seconds (23.7-30.8) 03/27/17 02:25 - Constitutional Appears: No Acute Distress - Eye Exam Eye Exam: Scleral icterus - Respiratory Exam Additional comments: decreased bilateral breath sounds - Cardiovascular Exam Cardiovascular Exam: +S1, +S2 - GI/Abdominal Exam Additional comments: abdomen softly distended, mild tenderness to palpation diffusely without rebound /guarding, bowel sounds present - Extremities Exam Extremities Exam: absent: Pedal Edema - Neurological Exam Additional comments: tremulous - Skin Skin Exam: Dry Assessment and Plan - Assessment and Plan (Free Text) Assessment: 47 year old male with h/o ETOH abuse, chronic ETOH hepatitis with abnormal LFTs who is admitted with ETOH intoxication (ETOH 306), perineal rash/cellulitis and reported hematochezia. Plan: Continue supportive care Monitor LFTs, T bili uptrending Avoid hepatotoxins Follow up abdominal sonogram, duplex Monitor H/H, currently stable, monitor for overt GI blood loss and document/ notify accordingly Continue PPI daily Continue thiamine/folate Antibiotics as per primary medical team He will benefit from endoscopic evaluation, after resolution of acute intoxication Will follow and make recommendations pending clinical course
--- NOTE | 2017-03-28 11:10 | CP.PCM.PN ---
<Katarzyna Mir - Last Filed: 03/28/17 13:28> Subjective - Date & Time of Evaluation Date of Evaluation: 03/28/17 Time of Evaluation: 11:07 - Subjective Subjective: PGY-1 Medicine progress note Patient seen and examined at bedside. No acute distress. Nurse reports that patient slept through the night and did not require ativan. Patient states that he feels tired, but denies hallucinations. He reports some dysuria with diaphoresis and nausea but denies vomiting. Denies fever, chills, abdominal pain , chest pain, sob. Patient states he had BM this morning however it was not witnessed by nurse. Objective - Vital Signs/Intake and Output Vital Signs (last 24 hours): Temp Pulse Resp BP Pulse Ox 99.9 F H 62 20 122/70 92 L 03/28/17 00:00 03/28/17 05:08 03/28/17 00:00 03/28/17 00:00 03/28/17 00:00 Intake and Output: 03/28/17 03/28/17 06:59 18:59 Intake Total 1190 Output Total 2150 Balance -960 - Medications Medications: Current Medications Albuterol/Ipratropium (Duoneb 3 Mg/0.5 Mg (3 Ml) Ud) 3 ml IH [id number] PRN PRN Reason: Shortness of Breath Pantoprazole Sodium (Protonix 40mg Ivpb) 40 mg in 100 mls @ 20 mls/hr IVPB .Q5H [facility] Last Admin: 03/28/17 04:31 Dose: 20 mls/hr Vancomycin HCl (Vancomycin 1gm) 1 gm in 250 mls @ 167 mls/hr IVPB Q12H [facility] PRN Reason: Protocol Last Admin: 03/28/17 04:40 Dose: 167 mls/hr Potassium Chloride (Potassium Chloride 20 Meq/100 Ml) 20 meq in 100 mls @ 50 mls/hr IVPB Q2H [facility] Stop: 03/28/17 12:59 Last Admin: 03/28/17 10:37 Dose: 50 mls/hr Multivitamins/Vitamin C 10 ml/Thiamine HCl 100 mg/ Folic Acid 1 mg/ Sodium Chloride 1,011.2 mls @ 150 mls/hr IV .Q6H45M [facility] Piperacillin Sod/Tazobactam Sod (Zosyn 3.375 In Ns 100ml) 100 mls @ 200 mls/hr IVPB Q6 [facility] PRN Reason: Protocol Stop: 03/28/17 18:29 Lorazepam (Ativan) 1 mg IVP Q2H PRN; Protocol PRN Reason: Anxiety Lorazepam (Ativan) 0.5 mg IVP Q6 [facility] PRN Reason: Protocol Mupirocin (Bactroban Ointment) 0 gm TOP BID [facility] Last Admin: 03/27/17 17:59 Dose: Not Given Nystatin/Triamcinolone Acetonide (Nystatin/Triamcinolone Ointment) 1 gm TOP BID [facility] Last Admin: 03/27/17 21:14 Dose: 1 applic - Labs Labs: 03/28/17 06:00 03/28/17 06:00 PT 12.8 Seconds (9.9-11.8) H 03/27/17 02:25 INR 1.19 (0.93-1.08) H 03/27/17 02:25 APTT 30.5 Seconds (23.7-30.8) 03/27/17 02:25 - Constitutional Appears: No Acute Distress - Head Exam Head Exam: ATRAUMATIC, NORMOCEPHALIC - Eye Exam Eye Exam: Normal appearance - ENT Exam ENT Exam: Mucous Membranes Moist - Respiratory Exam Respiratory Exam: Clear to Ausculation Bilateral, NORMAL BREATHING PATTERN. absent: Rhonchi, Wheezes, Respiratory Distress - Cardiovascular Exam Cardiovascular Exam: REGULAR RHYTHM. absent: Murmur - GI/Abdominal Exam GI & Abdominal Exam: Soft, Normal Bowel Sounds. absent: Distended, Firm, Guarding, Tenderness - Extremities Exam Extremities Exam: Normal Inspection. absent: Pedal Edema - Neurological Exam Neurological Exam: Alert, Awake, Oriented x3 - Skin Additional comments: erythema with excoriation of bilateral medial thighs Assessment and Plan - Assessment and Plan (Free Text) Assessment: 47 year old male with past medical history of alcohol abuse was admitted for alcohol intoxication and hematochezia. CRX showed right sided perihilar infiltrates. Plan: 1. Acute hematochezia - Upper vs lower GI bleed given extensive history of EtOH abuse - cont Protonix drip at 8mg/hr - Hgb trending down, appears stable at 9.3, cont to monitor - Positive stool guaiac - GI consult, Dr. Perdue - advance diet to high caliore, high protein 2. PNE - afebrile without leukocytosis this morning - cont zosyn and vanco - ID consulted - blood cultures negative after 24 hours - urine cultures no growth 3. Alcohol withdrawal - cont Banana bag @150ml/hr - cont CIWA - decrease Ativan to 0.5 mg IV q6h - cont ativan 1 mg q2 prn - Seizure precaution 4. alcoholic hepatitis - discriminant function 21 - cont IVF - trend LFTs - advance diet - abd US pending - hep and serology pending - GI following 5. Perineum rash - afebrile wothout leukocytosis - Blood and urine cultures negative - cont Vancomycin and zosyn antibiotics - Wound care consult Prophylactic measures - Protonix for GI ppx - SCD for DVT ppx <Kirit Mosqueda B - Last Filed: 03/28/17 17:18> Objective - Vital Signs/Intake and Output Vital Signs (last 24 hours): Temp Pulse Resp BP Pulse Ox 98.7 F 101 H 20 164/76 H 92 L 03/28/17 12:00 03/28/17 13:19 03/28/17 12:00 03/28/17 12:00 03/28/17 00:00 Intake and Output: 03/28/17 03/28/17 06:59 18:59 Intake Total 1190 840 Output Total 2150 950 Balance -960 -110 - Medications Medications: Current Medications Albuterol/Ipratropium (Duoneb 3 Mg/0.5 Mg (3 Ml) Ud) 3 ml IH [id number] PRN PRN Reason: Shortness of Breath Pantoprazole Sodium (Protonix 40mg Ivpb) 40 mg in 100 mls @ 20 mls/hr IVPB .Q5H [facility] Last Admin: 03/28/17 15:30 Dose: 20 mls/hr Vancomycin HCl (Vancomycin 1gm) 1 gm in 250 mls @ 167 mls/hr IVPB Q12H [facility] PRN Reason: Protocol Last Admin: 03/28/17 16:30 Dose: 167 mls/hr Multivitamins/Vitamin C 10 ml/Thiamine HCl 100 mg/ Folic Acid 1 mg/ Sodium Chloride 1,011.2 mls @ 150 mls/hr IV .Q6H45M [facility] Last Admin: 03/28/17 15:19 Dose: 150 mls/hr Piperacillin Sod/Tazobactam Sod (Zosyn 3.375 In Ns 100ml) 100 mls @ 200 mls/hr IVPB Q6 [facility] PRN Reason: Protocol Stop: 03/28/17 18:29 Last Admin: 03/28/17 14:39 Dose: 200 mls/hr Lorazepam (Ativan) 1 mg IVP Q2H PRN; Protocol PRN Reason: Anxiety Lorazepam (Ativan) 0.5 mg IVP Q6 [facility] PRN Reason: Protocol Last Admin: 03/28/17 13:09 Dose: 0.5 mg Mupirocin (Bactroban Ointment) 0 gm TOP BID [facility] Last Admin: 03/27/17 17:59 Dose: Not Given Nystatin/Triamcinolone Acetonide (Nystatin/Triamcinolone Ointment) 1 gm TOP BID [facility] Last Admin: 03/28/17 12:59 Dose: 1 applic - Labs Labs: 03/28/17 06:00 03/28/17 06:00 PT 12.8 Seconds (9.9-11.8) H 03/27/17 02:25 INR 1.19 (0.93-1.08) H 03/27/17 02:25 APTT 30.5 Seconds (23.7-30.8) 03/27/17 02:25 Attending/Attestation - Attestation I have personally seen and examined this patient.: Yes I have fully participated in the care of the patient.: Yes I have reviewed all pertinent clinical information, including history, physical exam and plan: Yes Notes (Text): I have seen and examined the patient at bedside. Agree with the above note with the following additions/ exceptions: This is 47 year old male with history of alcohol abuse, depression, homelessness who got admitted for evaluation of hematochezia and found to be intoxicated. GI consult appreciated. On his last visit he was scheduled for endoscopy however he signed AMA at that time. Patient reports having one bloody BM yesterday but it was not witnessed by nursing staff. Hb is 9.3. Stool guaic positive. Diet was advanced today. Sub Master on board and they recommended outpatient endoscopy. He also found to have (perihilar infiltrate) pneumonia and cellulitis on bilateral inner thighs. He is currently on vanco and zosyn. ID On board. Blood and urine cultures negative. Procal is 0.32. Also going thru mild alcohol withdrawal. Will taper ativan. He has alcoholic hepatitis. Not a candidate for steroids or pentoxifylline at this time. Abdomen ultrasound showed 10 mm cbd dilatation. Will order MRCP. Will consult social organization professor as well. Dr Kirit Mosqueda
[2017-03-28] MEDS: Nystatin-Triamcinolone Ointment(30 gm) TOP SCH ×2 (12:59→18:17)
--- NOTE | 2017-03-28 13:28 | US ---
HISTORY: rule out thrombus and gallstones COMPARISON: None. TECHNIQUE: Sonographic evaluation of the abdomen. FINDINGS: LIVER: Measures 19.8 cm. Diffusely increased echogenicity of the liver parenchyma. Smooth contour. No mass identified. Previously identified 9 mm echogenic mass in right hepatic lobe is not demonstrated on current examination. No intrahepatic biliary dilatation. GALLBLADDER: No evidence of cholelithiasis. There is mild mural thickening, up to 6 mm. There is mild pericholecystic fluid, nonspecific. This is likely due to generalized ascites. COMMON BILE DUCT: Measures 10 mm. No evidence of choledocholithiasis. PANCREAS: Unremarkable as visualized. No mass. No ductal dilatation. RIGHT KIDNEY: Measures 10.4cm. Normal echogenicity. Nonobstructing 6 mm mid right renal calculus. No hydronephrosis. LEFT KIDNEY: Measures 10.8cm. Normal echogenicity. No calculus, mass, or hydronephrosis. SPLEEN: Normal size. 3.1 cm accessory spleen identified in splenic hilar region. AORTA: No aneurysmal dilatation. IVC: Unremarkable. OTHER FINDINGS: Mild ascites. IMPRESSION: Fatty liver. Hepatomegaly. Mild ascites. Nonspecific gallbladder mural thickening. No cholelithiasis. CBD dilatation without intrahepatic biliary dilatation. Uncertain significance. Nonobstructing 6 mm right renal calculus.
[2017-03-28] MEDS: Piperacillin/Tazobact 3.375 gm 100 ML IVPB SCH ×2 (14:39→18:05)
[2017-03-28] MEDS: Multivitamin (MVI) 10 ML, Thiamine 100 MG, Folic Acid 1 MG in Sodium Chloride 0.9% 1,00... IV SCH ×2 (15:19→23:13)
[2017-03-28] MEDS: Pantoprazole 40mg/100ml IVPB 40 MG/100 ML BAG IVPB SCH ×2 (15:30→18:57)
--- NOTE | 2017-03-28 18:15 | US ---
PROCEDURE: Portal vein duplex ultrasound. CLINICAL HISTORY: Cirrhosis. Deteriorating liver function. Evaluate for portal vein thrombosis. PHYSICIAN(S): Collin Gutierrez M.D. FINDINGS: The liver is somewhat heterogeneous in echotexture. No obvious liver mass is appreciated. The extrahepatic portal vein is patent with hepatopetal flow. No evidence of thrombus is appreciated. The central hepatic veins are patent. The hepatic artery is patent. The spleen is normal in size. No ascites is noted in the upper abdomen IMPRESSION: 1. Patent portal vein with hepatopetal flow.
--- NOTE | 2017-03-28 23:12 | CP.PCM.PN ---
Subjective - Date & Time of Evaluation Date of Evaluation: 03/28/17 Time of Evaluation: 22:54 - Subjective Subjective: Infectious Disease Follow Up: March 28, 2017 47 yo male who is homeless presenting with bloody bowel movements over the past few weeks and thick pruritic rash on the inner thighs with excoriations and thickening of the skin there. Area is heavily discolored. The patient came into the hospital with his pants soaked in urine. Patient has no resources to take care of himself. Multiple problems. In legs and thighs, there is a thick fungal rash with secondary cellulitis. ON Vancomycin for antibiotics therapy. Objective - Vital Signs/Intake and Output Vital Signs (last 24 hours): Temp Pulse Resp BP Pulse Ox 99.3 F 96 H 20 125/65 92 L 03/28/17 18:00 03/28/17 18:00 03/28/17 18:00 03/28/17 18:00 03/28/17 00:00 Intake and Output: 03/28/17 03/29/17 18:59 06:59 Intake Total 840 360 Output Total 950 250 Balance -110 110 - Medications Medications: Current Medications Albuterol/Ipratropium (Duoneb 3 Mg/0.5 Mg (3 Ml) Ud) 3 ml IH [id number] PRN PRN Reason: Shortness of Breath Pantoprazole Sodium (Protonix 40mg Ivpb) 40 mg in 100 mls @ 20 mls/hr IVPB .Q5H [facility] Last Admin: 03/28/17 18:57 Dose: 20 mls/hr Vancomycin HCl (Vancomycin 1gm) 1 gm in 250 mls @ 167 mls/hr IVPB Q12H [facility] PRN Reason: Protocol Last Admin: 03/28/17 16:30 Dose: 167 mls/hr Multivitamins/Vitamin C 10 ml/Thiamine HCl 100 mg/ Folic Acid 1 mg/ Sodium Chloride 1,011.2 mls @ 150 mls/hr IV .Q6H45M [facility] Last Admin: 03/28/17 15:19 Dose: 150 mls/hr Lorazepam (Ativan) 1 mg IVP Q2H PRN; Protocol PRN Reason: Anxiety Lorazepam (Ativan) 0.5 mg IVP Q6 [facility] PRN Reason: Protocol Last Admin: 03/28/17 18:16 Dose: Not Given Mupirocin (Bactroban Ointment) 0 gm TOP BID [facility] Last Admin: 03/27/17 17:59 Dose: Not Given Nystatin/Triamcinolone Acetonide (Nystatin/Triamcinolone Ointment) 1 gm TOP BID [facility] Last Admin: 03/28/17 18:17 Dose: 1 applic - Labs Labs: 03/28/17 06:00 03/28/17 06:00 PT 12.8 Seconds (9.9-11.8) H 03/27/17 02:25 INR 1.19 (0.93-1.08) H 03/27/17 02:25 APTT 30.5 Seconds (23.7-30.8) 03/27/17 02:25 - Constitutional Appears: Non-toxic, No Acute Distress, Chronically Ill - Head Exam Head Exam: ATRAUMATIC, NORMOCEPHALIC Additional comments: scalp excoriations. - Eye Exam Eye Exam: EOMI, PERRL Pupil Exam: NORMAL ACCOMODATION, PERRL - ENT Exam ENT Exam: Mucous Membranes Moist, Normal External Ear Exam, TM's Normal Bilaterally - Neck Exam Neck Exam: Full ROM, Normal Inspection - Respiratory Exam Respiratory Exam: Clear to Ausculation Bilateral, NORMAL BREATHING PATTERN. absent: Rales, Rhonchi, Wheezes - Cardiovascular Exam Cardiovascular Exam: REGULAR RHYTHM, RRR, +S1, +S2 - GI/Abdominal Exam GI & Abdominal Exam: Soft, Normal Bowel Sounds. absent: Distended, Tenderness - Extremities Exam Extremities Exam: Full ROM Additional comments: weakness. - Neurological Exam Neurological Exam: Alert, CN II-XII Intact Additional comments: AAO x 2-3 - Psychiatric Exam Psychiatric exam: Normal Affect, Normal Mood - Skin Additional comments: thickened shepherd discolored area on inner thighs bilaterally. area is also excoriated with mild bleeding. Skin thickened like elephantiasis. weak distal pulses. Assessment and Plan - Assessment and Plan (Free Text) Assessment: 47 yo male who is homeless with presentation of blood bowel movements and chronic venous stasis and elephantiasis of the inner thighs. Supportive care. Add nystatin to the thighs. On Vancomycin and Zosyn for antibiotic coverage. Local wound care. Reordered Zosyn. Continue antifungal for fungal rash in inner thighs. The patient is currently in EtOH intoxication. Liver enzymes are also singificantly elevated. AST 621 and ALT was 122. Supportive care. Luu cultures. Thank you for allowing me to participate in the care of the patent, we will follow with you.
[2017-03-29] MEDS: Piperacillin/Tazobact 3.375 gm 100 ML IVPB SCH ×4 (00:26→23:11)
[2017-03-29] MEDS: Pantoprazole 40mg/100ml IVPB 40 MG/100 ML BAG IVPB SCH ×3 (00:26→10:50)
[2017-03-29 02:03] LABS: ADD MANUAL DIFF? NO
[2017-03-29 02:05] LABS: BASO # 0.05 K/mm3 (0.0-2.0); BASO % 0.5 % (0.0-3.0); EOS # 0.1 (0.0-0.7); EOS % 1.5 % (1.5-5.0); GRAN # 6.75 (1.4-6.5); GRAN % 72.9 % (50.0-68.0); HEMATOCRIT 25.5 % (42.0-52.0); LYMPH # 1.6 (1.2-3.4); LYMPH % 16.9 % (22.0-35.0); MEAN CELL VOLUME 99.2 fL (80.0-105.0); MEAN CORPUSCULAR HEMOGLOBIN 36.2 pg (25.0-35.0); MEAN CORPUSCULAR HGB CONC 36.5 g/dl (31.0-37.0); MEAN PLATELET VOLUME 10.6 fl (7.0-11.0); MONO # 0.8 (0.1-0.6); MONO % 8.2 % (1.0-6.0); PLATELET COUNT 100 10^3/uL (120.0-450.0); RED CELL DISTRIBUTION WIDTH 19.8 % (11.5-14.5); WHITE BLOOD COUNT 9.3 10^3/ul (4.5-11.0)
[2017-03-29 02:14] LABS: ALB/GLOB RATIO 0.7 (1.1-1.8); ALKALINE PHOSPHATASE 369 U/L (38-133); ALT/SGPT 92 U/L (7-56); AST/SGOT 353 U/L (15-59); BILIRUBIN,TOTAL 6.7 mg/dL (0.2-1.3); BLOOD UREA NITROGEN 7 mg/dL (7-21); CALCIUM 8.5 mg/dL (8.4-10.5); CARBON DIOXIDE 26 mmol/L (21-33); GFR AFRICAN-AMERICAN > 60; GLUCOSE,RANDOM 96 mg/dL (70-110); SODIUM 128 mmol/L (132-148); TOTAL PROTEIN 7.2 g/dL (5.8-8.3)
[2017-03-29 02:15] LABS: INR 1.3 (0.93-1.08)
[2017-03-29 02:32] LABS: CHLORIDE 95 mmol/L (98-107); POTASSIUM 3.3 mmol/L (3.6-5.0)
[2017-03-29] MEDS: Vancomycin 1gm in NS 250ml 1 GM/250 ML BAG IVPB SCH ×2 (03:10→15:56)
[2017-03-29] MEDS: Multivitamin (MVI) 10 ML, Thiamine 100 MG, Folic Acid 1 MG in Sodium Chloride 0.9% 1,00... IV SCH ×2 (05:48→19:29)
--- NOTE | 2017-03-29 11:15 | CP.PCM.PN ---
Subjective - Date & Time of Evaluation Date of Evaluation: 03/29/17 Time of Evaluation: 11:10 - Subjective Subjective: Patient seen and examined. Resting comfortably in bed, no acute events overnight. He continues to endorse epigastric abdominal discomfort, though improved compared to prior. He denies nausea, vomiting, diarrhea, fever/ chills. He had a normal bowel movement this morning without presence of rectal bleeding and is tolerating PO diet without difficulty. Review of vitals from today shows low grade temperature. 12 point review of systems performed, negative aside from mentioned above. Objective - Vital Signs/Intake and Output Vital Signs (last 24 hours): Temp Pulse Resp BP Pulse Ox 99.9 F H 92 H 18 136/82 95 03/29/17 05:54 03/29/17 05:54 03/29/17 05:54 03/29/17 05:54 03/29/17 05:54 Intake and Output: 03/29/17 03/29/17 06:59 18:59 Intake Total 6080 Output Total 1650 Balance 4430 - Medications Medications: Current Medications Albuterol/Ipratropium (Duoneb 3 Mg/0.5 Mg (3 Ml) Ud) 3 ml IH [id number] PRN PRN Reason: Shortness of Breath Pantoprazole Sodium (Protonix 40mg Ivpb) 40 mg in 100 mls @ 20 mls/hr IVPB .Q5H [facility] Last Admin: 03/29/17 10:50 Dose: 20 mls/hr Vancomycin HCl (Vancomycin 1gm) 1 gm in 250 mls @ 167 mls/hr IVPB Q12H [facility] PRN Reason: Protocol Last Admin: 03/29/17 03:10 Dose: 167 mls/hr Multivitamins/Vitamin C 10 ml/Thiamine HCl 100 mg/ Folic Acid 1 mg/ Sodium Chloride 1,011.2 mls @ 150 mls/hr IV .Q6H45M [facility] Last Admin: 03/29/17 05:48 Dose: 150 mls/hr Piperacillin Sod/Tazobactam Sod (Zosyn 3.375 In Ns 100ml) 100 mls @ 200 mls/hr IVPB Q6 [facility] PRN Reason: Protocol Last Admin: 03/29/17 05:04 Dose: 200 mls/hr Lorazepam (Ativan) 1 mg IVP Q2H PRN; Protocol PRN Reason: Anxiety Lorazepam (Ativan) 0.5 mg IVP Q6 [facility] PRN Reason: Protocol Last Admin: 03/29/17 07:53 Dose: 0.5 mg Mupirocin (Bactroban Ointment) 0 gm TOP BID [facility] Last Admin: 03/27/17 17:59 Dose: Not Given Nystatin/Triamcinolone Acetonide (Nystatin/Triamcinolone Ointment) 1 gm TOP BID [facility] Last Admin: 03/28/17 18:17 Dose: 1 applic - Labs Labs: 03/29/17 02:00 03/29/17 02:00 PT 14.0 Seconds (9.9-11.8) H 03/29/17 02:00 INR 1.30 (0.93-1.08) H 03/29/17 02:00 APTT 30.5 Seconds (23.7-30.8) 03/27/17 02:25 - Constitutional Appears: Non-toxic, No Acute Distress - Head Exam Head Exam: NORMAL INSPECTION - Eye Exam Eye Exam: Scleral icterus - ENT Exam ENT Exam: Mucous Membranes Moist - Respiratory Exam Respiratory Exam: Clear to Ausculation Bilateral - Cardiovascular Exam Cardiovascular Exam: REGULAR RHYTHM, +S1, +S2 - GI/Abdominal Exam GI & Abdominal Exam: Soft, Normal Bowel Sounds Additional comments: non tender to palpation in four quadrants - Extremities Exam Extremities Exam: Normal Inspection - Skin Skin Exam: Dry, Intact, Rash, Warm Assessment and Plan - Assessment and Plan (Free Text) Assessment: ETOH abuse, acute ETOH hepatitis Lower extremity cellulitis Abdominal US reviewed by me showing patent portal vein, dilated CBD without presence of choledocholithiasis Plan: - Diet as tolerated - Continue with antibiotic therapy as per ID - ETOH withdrawal treatment as per medical team - H/H stable, continue to monitor - Continue with PPI therapy - Awaiting hepatitis panel results. LFTs stable, continue to monitor and avoid hepatotoxic agents. - Can consider MRCP for further evaluation of dilated CBD, bilirubin elevated in acute ETOH hepatitis setting. - No further planned GI intervention at this time, will sign off case. Please reconsult as necessary, thank you.
--- NOTE | 2017-03-29 16:23 | CP.PCM.PN ---
<Katarzyna Mir - Last Filed: 03/29/17 16:36> Subjective - Date & Time of Evaluation Date of Evaluation: 03/29/17 Time of Evaluation: 11:30 - Subjective Subjective: PGY-1 Medicine pregress note Patient seen and examined at bedside. No acute distress. Nurse reports no events overnight. Per nurse patient had non bloody BM. Patient states that he is tired, denies chest pain, sob, fever, chills, n/v/d/c, urinary symptoms. He does report abdominal pain. He is tolerating diet. Objective - Vital Signs/Intake and Output Vital Signs (last 24 hours): Temp Pulse Resp BP Pulse Ox 97.6 F 98 H 19 152/82 H 95 03/29/17 12:00 03/29/17 14:00 03/29/17 12:00 03/29/17 12:00 03/29/17 05:54 Intake and Output: 03/29/17 03/29/17 06:59 18:59 Intake Total 6080 Output Total 1650 Balance 4430 - Medications Medications: Current Medications Albuterol/Ipratropium (Duoneb 3 Mg/0.5 Mg (3 Ml) Ud) 3 ml IH [id number] PRN PRN Reason: Shortness of Breath Vancomycin HCl (Vancomycin 1gm) 1 gm in 250 mls @ 167 mls/hr IVPB Q12H [facility] PRN Reason: Protocol Last Admin: 03/29/17 15:56 Dose: 167 mls/hr Piperacillin Sod/Tazobactam Sod (Zosyn 3.375 In Ns 100ml) 100 mls @ 200 mls/hr IVPB Q6 [facility] PRN Reason: Protocol Last Admin: 03/29/17 15:58 Dose: 200 mls/hr Sodium Chloride (Sodium Chloride 0.9%) 1,000 mls @ 150 mls/hr IV .Q6H40M [facility] Lorazepam (Ativan) 1 mg IVP Q2H PRN; Protocol PRN Reason: Anxiety Multivitamins (Thera Tab) 1 tab PO DAILY [facility] Mupirocin (Bactroban Ointment) 0 gm TOP BID [facility] Last Admin: 03/27/17 17:59 Dose: Not Given Nystatin/Triamcinolone Acetonide (Nystatin/Triamcinolone Ointment) 1 gm TOP BID [facility] Last Admin: 03/28/17 18:17 Dose: 1 applic Pantoprazole Sodium (Protonix Ec Tab) 40 mg PO 0730,1630 [facility] Thiamine HCl (Vitamin B1 Tab) 50 mg PO DAILY [facility] - Labs Labs: 03/29/17 02:00 03/29/17 02:00 PT 14.0 Seconds (9.9-11.8) H 03/29/17 02:00 INR 1.30 (0.93-1.08) H 03/29/17 02:00 APTT 30.5 Seconds (23.7-30.8) 03/27/17 02:25 - Constitutional Appears: Well, No Acute Distress - Head Exam Head Exam: ATRAUMATIC, NORMOCEPHALIC - Eye Exam Eye Exam: Normal appearance - ENT Exam ENT Exam: Mucous Membranes Moist - Respiratory Exam Respiratory Exam: Clear to Ausculation Bilateral, NORMAL BREATHING PATTERN. absent: Rales, Rhonchi, Wheezes, Respiratory Distress - Cardiovascular Exam Cardiovascular Exam: REGULAR RHYTHM. absent: Tachycardia, Murmur - GI/Abdominal Exam GI & Abdominal Exam: Soft, Tenderness (mild right sided), Normal Bowel Sounds. absent: Distended, Firm - Extremities Exam Extremities Exam: Normal Inspection. absent: Pedal Edema - Neurological Exam Neurological Exam: Awake, Oriented x3 - Skin Skin Exam: Dry, Intact, Normal Color, Warm Additional comments: bilateral medial thighs: erythema, improved excoriation Assessment and Plan - Assessment and Plan (Free Text) Assessment: 47 year old male with past medical history of alcohol abuse was admitted for alcohol intoxication and hematochezia. CRX showed right sided perihilar infiltrates. Abd US showed dilated bilary duct. Plan: 1. hematochezia - extensive history of EtOH abuse - Positive stool guaiac - witnessed non bloody BM - Hgb appears stable at 9.3, cont to monitor - discontinue protonix drip, start PO - GI following, - tolerating diet to high calorie, high protein 2. PNE - afebrile without leukocytosis this morning - CXR showed right sided perihilar infiltrate - cont zosyn and vanco - ID following - blood cultures negative after 24 hours - urine cultures no growth 3. Alcohol withdrawal - started IVF with normal saline, discontinued banana bag - started PO multivitamin and thiamine - cont CIWA - cont ativan 1 mg q2 prn - Seizure precaution 4. alcoholic hepatitis - discriminant function 21 - cont IVF - LFTs trending down - tolerating diet - abd US showed patent portal vein, fatty liver, hepatomeagly, dilated bile duct at 10mm - hep panel negative - GI following 5. dilated bile duct - abd US showed patent portal vein, fatty liver, hepatomeagly, dilated bile duct at 10mm - MRCP ordered 6. hyponatremia - sodium 128 - cont IVF,change to Normal saline - repeat in AM 7. Perineum rash - afebrile without leukocytosis - Blood and urine cultures negative - cont Vancomycin and zosyn antibiotics - cont mupirocin ointment - Wound care consult - ID following Prophylactic measures - Protonix for GI ppx - SCD for DVT ppx <Kirit Mosqueda B - Last Filed: 03/30/17 11:29> Objective - Vital Signs/Intake and Output Vital Signs (last 24 hours): Temp Pulse Resp BP Pulse Ox 98.6 F 85 22 141/87 98 03/30/17 05:52 03/30/17 05:52 03/30/17 05:52 03/30/17 05:52 03/30/17 05:52 Intake and Output: 03/30/17 03/30/17 06:59 18:59 Intake Total 2430 Output Total 2500 Balance -70 - Medications Medications: Current Medications Albuterol/Ipratropium (Duoneb 3 Mg/0.5 Mg (3 Ml) Ud) 3 ml IH [id number] PRN PRN Reason: Shortness of Breath Vancomycin HCl (Vancomycin 1gm) 1 gm in 250 mls @ 167 mls/hr IVPB Q12H [facility] PRN Reason: Protocol Last Admin: 03/30/17 02:58 Dose: 167 mls/hr Piperacillin Sod/Tazobactam Sod (Zosyn 3.375 In Ns 100ml) 100 mls @ 200 mls/hr IVPB Q6 [facility] PRN Reason: Protocol Last Admin: 03/30/17 05:41 Dose: 200 mls/hr Sodium Chloride (Sodium Chloride 0.9%) 1,000 mls @ 150 mls/hr IV .Q6H40M [facility] Last Admin: 03/30/17 09:28 Dose: 150 mls/hr Lorazepam (Ativan) 1 mg IVP Q2H PRN; Protocol PRN Reason: Anxiety Last Admin: 03/29/17 12:05 Dose: 1 mg Multivitamins (Thera Tab) 1 tab PO DAILY [facility] Last Admin: 03/30/17 09:27 Dose: 1 tab Mupirocin (Bactroban Ointment) 0 gm TOP BID [facility] Last Admin: 03/30/17 09:27 Dose: 1 applic Nystatin/Triamcinolone Acetonide (Nystatin/Triamcinolone Ointment) 1 gm TOP BID [facility] Last Admin: 03/30/17 09:27 Dose: 1 applic Pantoprazole Sodium (Protonix Ec Tab) 40 mg PO 0730,1630 [facility] Last Admin: 03/30/17 07:45 Dose: 40 mg Thiamine HCl (Vitamin B1 Tab) 50 mg PO DAILY [facility] Last Admin: 03/30/17 09:27 Dose: 50 mg - Labs Labs: 03/30/17 07:00 03/30/17 07:00 PT 14.0 Seconds (9.9-11.8) H 03/29/17 02:00 INR 1.30 (0.93-1.08) H 03/29/17 02:00 APTT 30.5 Seconds (23.7-30.8) 03/27/17 02:25 Attending/Attestation - Attestation I have personally seen and examined this patient.: Yes I have fully participated in the care of the patient.: Yes I have reviewed all pertinent clinical information, including history, physical exam and plan: Yes Notes (Text): I have seen and examined the patient at bedside. Agree with the above note with the following additions/ exceptions: This is 47 year old male with history of alcohol abuse, depression, homelessness who got admitted for evaluation of hematochezia and found to be intoxicated. GI consult appreciated. On his last visit he was scheduled for endoscopy however he signed AMA at that time. Patient reports having one BM today and it was non bloody. Hb is stable. Stool guaic positive. Patient has been tolerating the diet. He needs outpatient endoscopy. He also found to have (perihilar infiltrate) pneumonia and cellulitis on bilateral inner thighs. He is currently on vanco and zosyn as per ID. Blood and urine cultures negative. Procal is 0.32. Today, he appears very calm. alcohol withdrawal. Will taper ativan. He has alcoholic hepatitis. Not a candidate for steroids or pentoxifylline at this time. Abdomen ultrasound showed 10 mm cbd dilatation. MRCP still pending. Discussed with case picker. Patient is not interested in going to senior living. Dr Kirit Mosqueda
--- NOTE | 2017-03-29 16:41 | CP.PCM.PN ---
Subjective - Date & Time of Evaluation Date of Evaluation: 03/29/17 Time of Evaluation: 15:45 - Subjective Subjective: Infectious Disease Follow Up: March 29, 2017 47 yo male who is homeless presenting with bloody bowel movements over the past few weeks and thick pruritic rash on the inner thighs with excoriations and thickening of the skin there. Area is heavily discolored. The patient came into the hospital with his pants soaked in urine. Patient has no resources to take care of himself. Multiple problems. In legs and thighs, there is a thick fungal rash with secondary cellulitis. ON Vancomycin for antibiotics therapy. The patient was multiple medical issues. Objective - Vital Signs/Intake and Output Vital Signs (last 24 hours): Temp Pulse Resp BP Pulse Ox 97.6 F 98 H 19 152/82 H 95 03/29/17 12:00 03/29/17 14:00 03/29/17 12:00 03/29/17 12:00 03/29/17 05:54 Intake and Output: 03/29/17 03/29/17 06:59 18:59 Intake Total 6080 Output Total 1650 Balance 4430 - Medications Medications: Current Medications Albuterol/Ipratropium (Duoneb 3 Mg/0.5 Mg (3 Ml) Ud) 3 ml IH [id number] PRN PRN Reason: Shortness of Breath Vancomycin HCl (Vancomycin 1gm) 1 gm in 250 mls @ 167 mls/hr IVPB Q12H [facility] PRN Reason: Protocol Last Admin: 03/29/17 15:56 Dose: 167 mls/hr Piperacillin Sod/Tazobactam Sod (Zosyn 3.375 In Ns 100ml) 100 mls @ 200 mls/hr IVPB Q6 [facility] PRN Reason: Protocol Last Admin: 03/29/17 15:58 Dose: 200 mls/hr Sodium Chloride (Sodium Chloride 0.9%) 1,000 mls @ 150 mls/hr IV .Q6H40M [facility] Lorazepam (Ativan) 1 mg IVP Q2H PRN; Protocol PRN Reason: Anxiety Multivitamins (Thera Tab) 1 tab PO DAILY [facility] Mupirocin (Bactroban Ointment) 0 gm TOP BID [facility] Last Admin: 03/27/17 17:59 Dose: Not Given Nystatin/Triamcinolone Acetonide (Nystatin/Triamcinolone Ointment) 1 gm TOP BID [facility] Last Admin: 03/28/17 18:17 Dose: 1 applic Pantoprazole Sodium (Protonix Ec Tab) 40 mg PO 0730,1630 [facility] Thiamine HCl (Vitamin B1 Tab) 50 mg PO DAILY [facility] - Labs Labs: 03/29/17 02:00 03/29/17 02:00 PT 14.0 Seconds (9.9-11.8) H 03/29/17 02:00 INR 1.30 (0.93-1.08) H 03/29/17 02:00 APTT 30.5 Seconds (23.7-30.8) 03/27/17 02:25 - Constitutional Appears: Non-toxic, No Acute Distress, Chronically Ill - Head Exam Head Exam: ATRAUMATIC, NORMOCEPHALIC Additional comments: scalp excoriations. - Eye Exam Eye Exam: EOMI, PERRL Pupil Exam: NORMAL ACCOMODATION, PERRL - ENT Exam ENT Exam: Mucous Membranes Moist, Normal External Ear Exam, TM's Normal Bilaterally - Neck Exam Neck Exam: Full ROM, Normal Inspection - Respiratory Exam Respiratory Exam: Clear to Ausculation Bilateral, NORMAL BREATHING PATTERN. absent: Rales, Rhonchi, Wheezes - Cardiovascular Exam Cardiovascular Exam: REGULAR RHYTHM, RRR, +S1, +S2 - GI/Abdominal Exam GI & Abdominal Exam: Soft, Normal Bowel Sounds. absent: Distended, Tenderness - Extremities Exam Extremities Exam: Full ROM Additional comments: weakness. - Neurological Exam Neurological Exam: Alert, Awake, CN II-XII Intact Additional comments: AAO x 2-3 - Psychiatric Exam Psychiatric exam: Normal Affect, Normal Mood - Skin Additional comments: thickened shepherd discolored area on inner thighs bilaterally. area is also excoriated with mild bleeding. Skin thickened like elephantiasis. weak distal pulses. Assessment and Plan - Assessment and Plan (Free Text) Assessment: 47 yo male who is homeless with presentation of blood bowel movements and chronic venous stasis and elephantiasis of the inner thighs. Supportive care. Add nystatin to the thighs. On Vancomycin and Zosyn for antibiotic coverage. Local wound care. Reordered Zosyn. Continue antifungal for fungal rash in inner thighs. The patient is currently in EtOH intoxication. Liver enzymes are also singificantly elevated. AST 621 and ALT was 122. Supportive care. Luu cultures. Thank you for allowing me to participate in the care of the patent, we will follow with you.
[2017-03-29] MEDS: Sodium Chloride 0.9% 1,000 ML IV SCH ×2 (17:16→23:11)
[2017-03-29] MEDS: Pantoprazole 40 mg EC Tab PO SCH (17:24)
[2017-03-29] MEDS: Nystatin-Triamcinolone Ointment(30 gm) TOP SCH (17:27)
[2017-03-30] MEDS: Vancomycin 1gm in NS 250ml 1 GM/250 ML BAG IVPB SCH ×2 (02:58→16:00)
[2017-03-30] MEDS: Piperacillin/Tazobact 3.375 gm 100 ML IVPB SCH ×4 (05:41→23:10)
[2017-03-30 07:34] LABS: ADD MANUAL DIFF? NO
[2017-03-30 07:41] LABS: BASO # 0.07 K/mm3 (0.0-2.0); EOS # 0.2 (0.0-0.7); EOS % 2.7 % (1.5-5.0); GRAN # 4.53 (1.4-6.5); HEMATOCRIT 27.5 % (42.0-52.0); LYMPH # 1.5 (1.2-3.4); LYMPH % 20.9 % (22.0-35.0); MEAN CELL VOLUME 100.7 fL (80.0-105.0); MEAN CORPUSCULAR HEMOGLOBIN 35.9 pg (25.0-35.0); MEAN CORPUSCULAR HGB CONC 35.6 g/dl (31.0-37.0); MEAN PLATELET VOLUME 10.6 fl (7.0-11.0); MONO # 0.8 (0.1-0.6); MONO % 11.4 % (1.0-6.0); PLATELET COUNT 97 10^3/uL (120.0-450.0); RED CELL DISTRIBUTION WIDTH 19.6 % (11.5-14.5); WHITE BLOOD COUNT 7.1 10^3/ul (4.5-11.0)
[2017-03-30] MEDS: Pantoprazole 40 mg EC Tab PO SCH ×2 (07:45→17:18)
[2017-03-30 07:56] LABS: ALB/GLOB RATIO 0.7 (1.1-1.8); ALKALINE PHOSPHATASE 336 U/L (38-133); ALT/SGPT 76 U/L (7-56); AST/SGOT 207 U/L (15-59); BILIRUBIN,TOTAL 5.9 mg/dL (0.2-1.3); BLOOD UREA NITROGEN 7 mg/dL (7-21); CALCIUM 8.5 mg/dL (8.4-10.5); CARBON DIOXIDE 24 mmol/L (21-33); CHLORIDE 97 mmol/L (95-110); GFR AFRICAN-AMERICAN > 60; GLUCOSE,RANDOM 89 mg/dL (70-110); POTASSIUM 3.5 mmol/L (3.6-5.0); SODIUM 132 mmol/L (132-148); TOTAL PROTEIN 7.6 g/dL (5.8-8.3)
[2017-03-30] MEDS: Multivitamin Therapeutic Tab PO SCH (09:27)
[2017-03-30] MEDS: Nystatin-Triamcinolone Ointment(30 gm) TOP SCH ×2 (09:27→17:22)
[2017-03-30] MEDS: Sodium Chloride 0.9% 1,000 ML IV SCH ×2 (09:28→13:45)
--- NOTE | 2017-03-30 12:22 | CP.PCM.PN ---
Subjective - Date & Time of Evaluation Date of Evaluation: 03/30/17 Time of Evaluation: 11:30 - Subjective Subjective: Infectious Disease Follow Up: March 30, 2017 47 yo male who is homeless presenting with bloody bowel movements over the past few weeks and thick pruritic rash on the inner thighs with excoriations and thickening of the skin there. Area is heavily discolored. The patient came into the hospital with his pants soaked in urine. Patient has no resources to take care of himself. Multiple problems. In legs and thighs, there is a thick fungal rash with secondary cellulitis. Lessar extent on scrotum, buttocks, and lower legs. On Vancomycin for antibiotics therapy. The patient has multiple medical issues. Objective - Vital Signs/Intake and Output Vital Signs (last 24 hours): Temp Pulse Resp BP Pulse Ox 98.4 F 88 20 112/76 98 03/30/17 11:40 03/30/17 11:40 03/30/17 11:40 03/30/17 11:40 03/30/17 05:52 Intake and Output: 03/30/17 03/30/17 06:59 18:59 Intake Total 2430 Output Total 2500 Balance -70 - Medications Medications: Current Medications Albuterol/Ipratropium (Duoneb 3 Mg/0.5 Mg (3 Ml) Ud) 3 ml IH [id number] PRN PRN Reason: Shortness of Breath Vancomycin HCl (Vancomycin 1gm) 1 gm in 250 mls @ 167 mls/hr IVPB Q12H [facility] PRN Reason: Protocol Last Admin: 03/30/17 02:58 Dose: 167 mls/hr Piperacillin Sod/Tazobactam Sod (Zosyn 3.375 In Ns 100ml) 100 mls @ 200 mls/hr IVPB Q6 [facility] PRN Reason: Protocol Last Admin: 03/30/17 05:41 Dose: 200 mls/hr Sodium Chloride (Sodium Chloride 0.9%) 1,000 mls @ 150 mls/hr IV .Q6H40M [facility] Last Admin: 03/30/17 09:28 Dose: 150 mls/hr Lorazepam (Ativan) 1 mg IVP Q2H PRN; Protocol PRN Reason: Anxiety Last Admin: 03/29/17 12:05 Dose: 1 mg Multivitamins (Thera Tab) 1 tab PO DAILY [facility] Last Admin: 03/30/17 09:27 Dose: 1 tab Mupirocin (Bactroban Ointment) 0 gm TOP BID [facility] Last Admin: 03/30/17 09:27 Dose: 1 applic Nystatin/Triamcinolone Acetonide (Nystatin/Triamcinolone Ointment) 1 gm TOP BID [facility] Last Admin: 03/30/17 09:27 Dose: 1 applic Pantoprazole Sodium (Protonix Ec Tab) 40 mg PO 0730,1630 [facility] Last Admin: 03/30/17 07:45 Dose: 40 mg Potassium Chloride (Klor-Con 10) 10 meq PO ONCE ONE Stop: 03/31/17 11:19 Thiamine HCl (Vitamin B1 Tab) 50 mg PO DAILY [facility] Last Admin: 03/30/17 09:27 Dose: 50 mg - Labs Labs: 03/30/17 07:00 03/30/17 07:00 PT 14.0 Seconds (9.9-11.8) H 03/29/17 02:00 INR 1.30 (0.93-1.08) H 03/29/17 02:00 APTT 30.5 Seconds (23.7-30.8) 03/27/17 02:25 - Constitutional Appears: Non-toxic, No Acute Distress, Chronically Ill - Head Exam Head Exam: ATRAUMATIC, NORMOCEPHALIC Additional comments: scalp excoriations. - Eye Exam Eye Exam: EOMI, PERRL Pupil Exam: NORMAL ACCOMODATION, PERRL - ENT Exam ENT Exam: Mucous Membranes Moist, Normal External Ear Exam, TM's Normal Bilaterally - Neck Exam Neck Exam: Full ROM, Normal Inspection - Respiratory Exam Respiratory Exam: Clear to Ausculation Bilateral, NORMAL BREATHING PATTERN. absent: Rales, Rhonchi, Wheezes - Cardiovascular Exam Cardiovascular Exam: REGULAR RHYTHM, RRR, +S1, +S2 - GI/Abdominal Exam GI & Abdominal Exam: Soft, Normal Bowel Sounds. absent: Distended, Tenderness - Extremities Exam Extremities Exam: Full ROM Additional comments: weakness. - Neurological Exam Neurological Exam: Alert, Awake, CN II-XII Intact Additional comments: AAOx2-3 - Psychiatric Exam Psychiatric exam: Normal Affect, Normal Mood - Skin Additional comments: thickened shepherd discolored area on inner thighs bilaterally. area is also excoriated with mild bleeding. Skin thickened like elephantiasis. weak distal pulses. This has improved greatly since admission. To lessar extent similar findings on scrotum, buttocks, and lower legs. Assessment and Plan - Assessment and Plan (Free Text) Assessment: 47 yo male who is homeless with presentation of blood bowel movements and chronic venous stasis and elephantiasis of the inner thighs. Supportive care. Add nystatin to the thighs. On Vancomycin and Zosyn for antibiotic coverage. Local wound care. Reordered Zosyn. Continue antifungal for fungal rash in inner thighs. The patient is currently in EtOH intoxication. Liver enzymes are also singificantly elevated but improving. AST 207 and ALT was 76. Supportive care. Luu cultures. Thank you for allowing me to participate in the care of the patent, we will follow with you.
[2017-03-30] MEDS ORDERED: Potassium Chloride 10 mEq ER Tab PO ONE (14:07)
[2017-03-31] MEDS: Sodium Chloride 0.9% 1,000 ML IV SCH ×2 (03:09→09:57)
[2017-03-31] MEDS: Vancomycin 1gm in NS 250ml 1 GM/250 ML BAG IVPB SCH ×2 (03:10→14:53)
[2017-03-31] MEDS: Piperacillin/Tazobact 3.375 gm 100 ML IVPB SCH ×3 (05:07→17:18)
[2017-03-31] MEDS: Pantoprazole 40 mg EC Tab PO SCH ×2 (07:42→17:17)
[2017-03-31 08:04] LABS: ALB/GLOB RATIO 0.7 (1.1-1.8); ALKALINE PHOSPHATASE 295 U/L (38-133); ALT/SGPT 66 U/L (7-56); AST/SGOT 143 U/L (15-59); BILIRUBIN,TOTAL 5.3 mg/dL (0.2-1.3); BLOOD UREA NITROGEN 8 mg/dL (7-21); CALCIUM 8.8 mg/dL (8.4-10.5); CARBON DIOXIDE 23 mmol/L (21-33); CHLORIDE 97 mmol/L (95-110); GFR AFRICAN-AMERICAN > 60; GLUCOSE,RANDOM 92 mg/dL (70-110); POTASSIUM 3.9 mmol/L (3.6-5.0); SODIUM 131 mmol/L (132-148); TOTAL PROTEIN 7.6 g/dL (5.8-8.3)
[2017-03-31 08:30] LABS: BASO # 0.08 K/mm3 (0.0-2.0); BASO % 1.1 % (0.0-3.0); EOS # 0.2 (0.0-0.7); EOS % 2.1 % (1.5-5.0); GRAN # 4.37 (1.4-6.5); GRAN % 61.8 % (50.0-68.0); LYMPH # 1.6 (1.2-3.4); LYMPH % 22.9 % (22.0-35.0); MEAN CELL VOLUME 102.1 fL (80.0-105.0); MEAN CORPUSCULAR HEMOGLOBIN 35.6 pg (25.0-35.0); MEAN CORPUSCULAR HGB CONC 34.8 g/dl (31.0-37.0); MEAN PLATELET VOLUME 10.7 fl (7.0-11.0); MONO # 0.9 (0.1-0.6); MONO % 12.1 % (1.0-6.0); PLATELET COUNT 102 10^3/uL (120.0-450.0); RED CELL DISTRIBUTION WIDTH 20.3 % (11.5-14.5); WHITE BLOOD COUNT 7.1 10^3/ul (4.5-11.0)
[2017-03-31] MEDS: Multivitamin Therapeutic Tab PO SCH (09:57)
[2017-03-31] MEDS: Nystatin-Triamcinolone Ointment(30 gm) TOP SCH ×2 (09:57→17:19)
[2017-03-31 10:12] LABS: ADD MANUAL DIFF? NO
[2017-03-31] MEDS ORDERED: Potassium Chloride 10 mEq ER Tab PO ONE (11:18)
--- NOTE | 2017-03-31 12:31 | CP.PCM.PN ---
Subjective - Date & Time of Evaluation Date of Evaluation: 03/30/17 Time of Evaluation: 10:00 - Subjective Subjective: I have seen and examined patient at bedside. Complains of lightheadedness, abdominal pain and cough. Denies chest pain, headache, diarrhea or constipation. Patient did not have any BM today. Objective - Vital Signs/Intake and Output Vital Signs (last 24 hours): Temp Pulse Resp BP Pulse Ox 99 F 88 20 127/85 98 03/30/17 16:42 03/30/17 17:58 03/30/17 16:42 03/30/17 16:42 03/30/17 05:52 Intake and Output: 03/30/17 03/30/17 06:59 18:59 Intake Total 2430 780 Output Total 2500 950 Balance -70 -170 - Medications Medications: Current Medications Albuterol/Ipratropium (Duoneb 3 Mg/0.5 Mg (3 Ml) Ud) 3 ml IH [id number] PRN PRN Reason: Shortness of Breath Vancomycin HCl (Vancomycin 1gm) 1 gm in 250 mls @ 167 mls/hr IVPB Q12H [facility] PRN Reason: Protocol Last Admin: 03/30/17 16:00 Dose: 167 mls/hr Piperacillin Sod/Tazobactam Sod (Zosyn 3.375 In Ns 100ml) 100 mls @ 200 mls/hr IVPB Q6 [facility] PRN Reason: Protocol Last Admin: 03/30/17 17:19 Dose: 200 mls/hr Sodium Chloride (Sodium Chloride 0.9%) 1,000 mls @ 150 mls/hr IV .Q6H40M [facility] Last Admin: 03/30/17 13:45 Dose: Not Given Lorazepam (Ativan) 1 mg IVP Q2H PRN; Protocol PRN Reason: Anxiety Last Admin: 03/29/17 12:05 Dose: 1 mg Multivitamins (Thera Tab) 1 tab PO DAILY [facility] Last Admin: 03/30/17 09:27 Dose: 1 tab Mupirocin (Bactroban Ointment) 0 gm TOP BID [facility] Last Admin: 03/30/17 17:22 Dose: 1 applic Nystatin/Triamcinolone Acetonide (Nystatin/Triamcinolone Ointment) 1 gm TOP BID [facility] Last Admin: 05/13/17 17:22 Dose: 1 applic Pantoprazole Sodium (Protonix Ec Tab) 40 mg PO 0730,1630 [facility] Last Admin: 03/30/17 17:18 Dose: 40 mg Thiamine HCl (Vitamin B1 Tab) 50 mg PO DAILY [facility] Last Admin: 03/30/17 09:27 Dose: 50 mg - Labs Labs: 03/30/17 07:00 03/30/17 07:00 PT 14.0 Seconds (9.9-11.8) H 03/29/17 02:00 INR 1.30 (0.93-1.08) H 03/29/17 02:00 APTT 30.5 Seconds (23.7-30.8) 03/27/17 02:25 - Constitutional Appears: No Acute Distress, Older Than Stated Age - Head Exam Head Exam: ATRAUMATIC, NORMAL INSPECTION, NORMOCEPHALIC Additional comments: Superficial skin lesions on the scalp - Eye Exam Eye Exam: EOMI, Normal appearance Pupil Exam: PERRL - ENT Exam ENT Exam: Mucous Membranes Moist - Neck Exam Neck Exam: Full ROM, Normal Inspection - Respiratory Exam Respiratory Exam: Clear to Ausculation Bilateral, NORMAL BREATHING PATTERN - Cardiovascular Exam Cardiovascular Exam: REGULAR RHYTHM, +S1, +S2 - GI/Abdominal Exam GI & Abdominal Exam: Soft, Tenderness (mild), Normal Bowel Sounds. absent: Distended - Rectal Exam Rectal Exam: Deferred - Extremities Exam Extremities Exam: Full ROM, Normal Capillary Refill, Normal Inspection - Back Exam Back Exam: NORMAL INSPECTION - Neurological Exam Neurological Exam: Alert, Awake, CN II-XII Intact, Oriented x3 Neuro motor strength exam: Left Upper Extremity: 5, Right Upper Extremity: 5, Left Lower Extremity: 5, Right Lower Extremity: 5 - Psychiatric Exam Psychiatric exam: Normal Affect, Normal Mood - Skin Skin Exam: Dry, Warm Additional comments: Poor hygiene. He has bilateral thigh excoriations with bleeding on medial side and also skin appears thickened. Assessment and Plan - Assessment and Plan (Free Text) Plan: This is 47 year old male with history of alcohol abuse, depression, homelessness who got admitted for evaluation of hematochezia and found to be intoxicated. 1-Hematochezia: There are no further episodes of bleeding. On his last visit he was scheduled for endoscopy however he signed AMA at that time. Hb is stable. Stool guaic positive. Patient has been tolerating the diet. He needs outpatient endoscopy. Continue protonix. 2-Alcoholic hepatitis: Patient has elevated LFT's most likely secondary to alcohol abuse. Hep panel negative. Abdomen ultrasound showed fatty liver and 10 mm CBD dilatation. MRCP ordered. 3-Sepsis: secondary to CAP (Right blayne hilar infiltrate) and bilateral LE cellulitis. He has been afebrile. Blood and urine cultures negative. Procal 0.32. Continue vancomycin and zosyn. Continue nystatin and mupirocin ointment. 4-Alcohol withdrawal: Resolved. Patient appears calm, relaxed and denies diaphoresis, anxiety, agitation, nausea, vomiting, headache or any other complaints. Continue ativan prn. Scheduled ativan discontinued. 5-Hyponatremia: Improved. Can be secondary to poor dietary intake, alcohol induced cirrhosis(not evident on imaging) or pseudohyponatremia due to alcohol induced hypertriglyceridemia. He has been getting IVF. No need to do further work up. 6-GI prophylaxis: continue protonix. 7-DVT prophyalxis: continue SCDs 8-Homeless: Patient is not interested in going to senior care. pipeline dispatcher consult appreciated. Dispo: Upon discharge patient will follow up in [facility] clinic and [facility] GI clinic. Dr Kirit Mosqueda
--- NOTE | 2017-03-31 12:42 | CP.PCM.PN ---
Subjective - Date & Time of Evaluation Date of Evaluation: 03/31/17 Time of Evaluation: 09:00 - Subjective Subjective: I have seen and examined patient at bedside. Patient complains of cough and lightheadedness. He did not have any BM yet. Denies chest pain, headache, diarrhea or constipation. Patient did not have any BM today. Objective - Vital Signs/Intake and Output Vital Signs (last 24 hours): Temp Pulse Resp BP Pulse Ox 98.8 F 92 H 19 130/77 99 03/31/17 06:00 03/31/17 09:59 03/31/17 06:00 03/31/17 09:59 03/31/17 06:00 Intake and Output: 03/31/17 03/31/17 06:59 18:59 Intake Total 2310 Output Total 2150 Balance 160 - Medications Medications: Current Medications Albuterol/Ipratropium (Duoneb 3 Mg/0.5 Mg (3 Ml) Ud) 3 ml IH [id number] PRN PRN Reason: Shortness of Breath Vancomycin HCl (Vancomycin 1gm) 1 gm in 250 mls @ 167 mls/hr IVPB Q12H [facility] PRN Reason: Protocol Last Admin: 03/31/17 03:10 Dose: 167 mls/hr Piperacillin Sod/Tazobactam Sod (Zosyn 3.375 In Ns 100ml) 100 mls @ 200 mls/hr IVPB Q6 VÍCTOR PRN Reason: Protocol Last Admin: 03/31/17 05:07 Dose: 200 mls/hr Sodium Chloride (Sodium Chloride 0.9%) 1,000 mls @ 150 mls/hr IV .Q6H40M [facility] Last Admin: 03/31/17 09:57 Dose: Not Given Lorazepam (Ativan) 1 mg IVP Q2H PRN; Protocol PRN Reason: Anxiety Last Admin: 03/29/17 12:05 Dose: 1 mg Multivitamins (Thera Tab) 1 tab PO DAILY [facility] Last Admin: 03/31/17 09:57 Dose: 1 tab Mupirocin (Bactroban Ointment) 0 gm TOP BID [facility] Last Admin: 03/31/17 09:58 Dose: 1 applic Nystatin/Triamcinolone Acetonide (Nystatin/Triamcinolone Ointment) 1 gm TOP BID [facility] Last Admin: 03/31/17 09:57 Dose: 1 applic Pantoprazole Sodium (Protonix Ec Tab) 40 mg PO 0730,1630 [facility] Last Admin: 03/31/17 07:42 Dose: 40 mg Thiamine HCl (Vitamin B1 Tab) 50 mg PO DAILY [facility] Last Admin: 03/31/17 09:57 Dose: 50 mg - Labs Labs: 03/31/17 06:50 03/31/17 06:50 PT 14.0 Seconds (9.9-11.8) H 03/29/17 02:00 INR 1.30 (0.93-1.08) H 03/29/17 02:00 APTT 30.5 Seconds (23.7-30.8) 03/27/17 02:25 - Constitutional Appears: Well, No Acute Distress, Older Than Stated Age - Head Exam Head Exam: ATRAUMATIC, NORMAL INSPECTION, NORMOCEPHALIC Additional comments: Superficial skin lesions on the scalp - Eye Exam Eye Exam: EOMI, Normal appearance Pupil Exam: PERRL - ENT Exam ENT Exam: Mucous Membranes Moist - Neck Exam Neck Exam: Full ROM, Normal Inspection - Respiratory Exam Respiratory Exam: Prolonged Expiratory Phase. absent: Accessory Muscle Use, Chest Wall Tenderness, Wheezes - Cardiovascular Exam Cardiovascular Exam: REGULAR RHYTHM, +S1, +S2. absent: Bradycardia, Tachycardia , Murmur - GI/Abdominal Exam GI & Abdominal Exam: Soft, Normal Bowel Sounds. absent: Distended, Tenderness - Rectal Exam Rectal Exam: Deferred - Extremities Exam Extremities Exam: Full ROM, Normal Capillary Refill, Normal Inspection Additional comments: Poor hygiene. He has bilateral thigh excoriations with bleeding on medial side and also skin appears thickened. His pants have blood stains from the leg wound. - Back Exam Back Exam: Full ROM, NORMAL INSPECTION. absent: CVA tenderness (L), CVA tenderness (R) - Neurological Exam Neurological Exam: Alert, Awake, Normal Gait, Oriented x3 Neuro motor strength exam: Left Upper Extremity: 5, Right Upper Extremity: 5, Left Lower Extremity: 5, Right Lower Extremity: 5 - Psychiatric Exam Psychiatric exam: Normal Affect, Normal Mood - Skin Skin Exam: Dry, Intact, Normal Color, Warm Assessment and Plan - Assessment and Plan (Free Text) Plan: This is 47 year old male with history of alcohol abuse, depression, homelessness who got admitted for evaluation of hematochezia and found to be intoxicated and later went into alcohol withdrawal syndrome. 1-Hematochezia: There are no further episodes of bleeding. On his last visit he was scheduled for endoscopy however he signed AMA at that time. Hb is stable. Stool guaic positive. Patient has been tolerating the diet. He needs outpatient endoscopy. Continue protonix. 2-Alcoholic hepatitis: Patient has elevated LFT's most likely secondary to alcohol abuse. Hep panel negative. Abdomen ultrasound showed fatty liver and 10 mm CBD dilatation. Discussed with GI. There is no need for MRCP at this time. 3-Sepsis: secondary to CAP (Right blayne hilar infiltrate) and bilateral LE cellulitis. He has been afebrile. Blood and urine cultures negative. Procal 0.32. Continue vancomycin and zosyn. Continue nystatin and mupirocin ointment. Will discuss with social media intern tomorrow. Will arrange for PO keflex and plan to discharge him. Patient is not able to afford any medication. 4-Alcohol withdrawal: Resolved. Patient appears calm, relaxed and denies diaphoresis, anxiety, agitation, nausea, vomiting, headache or any other complaints. Continue ativan prn. 5-Hyponatremia: Mild and Persistent. Can be secondary to poor dietary intake, alcohol induced cirrhosis(not evident on imaging) or pseudohyponatremia due to alcohol induced hypertriglyceridemia. He has been getting IVF. Will check fasting lipid panel. On his last admission, TG were found to be high. 6-GI prophylaxis: continue protonix. 7-DVT prophyalxis: continue SCDs 8-Homeless: Patient is not interested in going to penitentiary. motorcycle assembler consult appreciated. Will discuss with SW and will try to arrange for po antibiotics prior to discharge. Dispo: Upon discharge [place] [facility] [place] [facility] [place]. Dr Kirit Mosqueda
--- NOTE | 2017-03-31 17:47 | CP.PCM.PN ---
Subjective - Date & Time of Evaluation Date of Evaluation: 03/31/17 Time of Evaluation: 15:15 - Subjective Subjective: Infectious Disease Follow Up: March 31, 2017 47 yo male who is homeless presenting with bloody bowel movements over the past few weeks and thick pruritic rash on the inner thighs with excoriations and thickening of the skin there. Area is heavily discolored. The patient came into the hospital with his pants soaked in urine. Patient has no resources to take care of himself. Multiple problems. In legs and thighs, there is a thick fungal rash with secondary cellulitis. Lessar extent on scrotum, buttocks, and lower legs. On Vancomycin and Zosyn for antibiotic therapy. The patient has multiple medical issues. He is homeless. Objective - Vital Signs/Intake and Output Vital Signs (last 24 hours): Temp Pulse Resp BP Pulse Ox 98.2 F 89 20 120/77 97 03/31/17 16:50 03/31/17 16:50 03/31/17 16:50 03/31/17 16:50 03/31/17 16:50 Intake and Output: 03/31/17 03/31/17 06:59 18:59 Intake Total 2310 660 Output Total 2150 1500 Balance 160 -840 - Medications Medications: Current Medications Albuterol/Ipratropium (Duoneb 3 Mg/0.5 Mg (3 Ml) Ud) 3 ml IH [id number] PRN PRN Reason: Shortness of Breath Vancomycin HCl (Vancomycin 1gm) 1 gm in 250 mls @ 167 mls/hr IVPB Q12H [facility] PRN Reason: Protocol Last Admin: 03/31/17 14:53 Dose: 167 mls/hr Piperacillin Sod/Tazobactam Sod (Zosyn 3.375 In Ns 100ml) 100 mls @ 200 mls/hr IVPB Q6 [facility]CTOR PRN Reason: Protocol Last Admin: 03/31/17 17:18 Dose: 200 mls/hr Lorazepam (Ativan) 1 mg IVP Q2H PRN; Protocol PRN Reason: Anxiety Last Admin: 03/29/17 12:05 Dose: 1 mg Multivitamins (Thera Tab) 1 tab PO DAILY [facility] Last Admin: 03/31/17 09:57 Dose: 1 tab Mupirocin (Bactroban Ointment) 0 gm TOP BID [facility] Last Admin: 03/31/17 17:19 Dose: 1 applic Nystatin/Triamcinolone Acetonide (Nystatin/Triamcinolone Ointment) 1 gm TOP BID [facility] Last Admin: 03/31/17 17:19 Dose: 1 applic Pantoprazole Sodium (Protonix Ec Tab) 40 mg PO 0730,1630 [facility] Last Admin: 03/31/17 17:17 Dose: 40 mg Thiamine HCl (Vitamin B1 Tab) 50 mg PO DAILY [facility] Last Admin: 03/31/17 09:57 Dose: 50 mg - Labs Labs: 03/31/17 06:50 03/31/17 06:50 PT 14.0 Seconds (9.9-11.8) H 03/29/17 02:00 INR 1.30 (0.93-1.08) H 03/29/17 02:00 APTT 30.5 Seconds (23.7-30.8) 03/27/17 02:25 - Constitutional Appears: Non-toxic, No Acute Distress, Chronically Ill - Head Exam Head Exam: ATRAUMATIC, NORMOCEPHALIC Additional comments: scalp excoriations. - Eye Exam Eye Exam: EOMI, PERRL Pupil Exam: NORMAL ACCOMODATION, PERRL - ENT Exam ENT Exam: Mucous Membranes Moist, Normal External Ear Exam, TM's Normal Bilaterally - Neck Exam Neck Exam: Full ROM, Normal Inspection - Respiratory Exam Respiratory Exam: Clear to Ausculation Bilateral, NORMAL BREATHING PATTERN. absent: Rales, Rhonchi, Wheezes - Cardiovascular Exam Cardiovascular Exam: REGULAR RHYTHM, RRR, +S1, +S2 - GI/Abdominal Exam GI & Abdominal Exam: Soft, Normal Bowel Sounds. absent: Distended, Tenderness - Extremities Exam Extremities Exam: Full ROM Additional comments: weakness. - Neurological Exam Neurological Exam: Alert, Awake, CN II-XII Intact, Oriented x3 Additional comments: AAO x 2-3 - Psychiatric Exam Psychiatric exam: Normal Affect, Normal Mood - Skin Skin Exam: Intact Additional comments: thickened shepherd discolored area on inner thighs bilaterally. area is also excoriated with mild bleeding. Skin thickened like elephantiasis. weak distal pulses. This has improved greatly since admission. To lessar extent similar findings on scrotum, buttocks, and lower legs.
[2017-04-01] MEDS: Piperacillin/Tazobact 3.375 gm 100 ML IVPB SCH ×3 (00:35→12:54)
[2017-04-01] MEDS ORDERED: Vancomycin 1gm in NS 250ml 1 GM/250 ML BAG IVPB SCH (04:49)
[2017-04-01 06:29] LABS: ADD MANUAL DIFF? NO
[2017-04-01 06:35] LABS: BASO # 0.12 K/mm3 (0.0-2.0); BASO % 1.6 % (0.0-3.0); EOS # 0.1 (0.0-0.7); EOS % 1.9 % (1.5-5.0); GRAN % 61.4 % (50.0-68.0); HEMATOCRIT 29.2 % (42.0-52.0); LYMPH # 1.7 (1.2-3.4); LYMPH % 23.1 % (22.0-35.0); MEAN CELL VOLUME 103.9 fL (80.0-105.0); MEAN CORPUSCULAR HEMOGLOBIN 36.3 pg (25.0-35.0); MEAN CORPUSCULAR HGB CONC 34.9 g/dl (31.0-37.0); MONO # 0.9 (0.1-0.6); PLATELET COUNT 121 10^3/uL (120.0-450.0); RED CELL DISTRIBUTION WIDTH 20.5 % (11.5-14.5); WHITE BLOOD COUNT 7.3 10^3/ul (4.5-11.0)
[2017-04-01 06:56] LABS: ALB/GLOB RATIO 0.7 (1.1-1.8); ALKALINE PHOSPHATASE 259 U/L (38-133); ALT/SGPT 61 U/L (7-56); AST/SGOT 118 U/L (15-59); BILIRUBIN,TOTAL 5.2 mg/dL (0.2-1.3); BLOOD UREA NITROGEN 12 mg/dL (7-21); CALCIUM 9.3 mg/dL (8.4-10.5); CARBON DIOXIDE 24 mmol/L (21-33); CHLORIDE 97 mmol/L (98-107); CHOLESTEROL 290 mg/dL (130-200); GFR AFRICAN-AMERICAN > 60; GLUCOSE,RANDOM 101 mg/dL (70-110); SODIUM 132 mmol/L (132-148); TOTAL PROTEIN 8.1 g/dL (5.8-8.3)
[2017-04-01] MEDS: Pantoprazole 40 mg EC Tab PO SCH (08:30)
[2017-04-01] MEDS: Multivitamin Therapeutic Tab PO SCH (10:08)
[2017-04-01] MEDS: Nystatin-Triamcinolone Ointment(30 gm) TOP SCH (10:55)
--- NOTE | 2017-04-01 16:24 | CP.PCM.DIS ---
<Katarzyna Mir - Last Filed: 04/01/17 16:21> Provider - Provider Date of Admission: 03/27/17 02:17 Attending physician: Samy Chowdhury MD Primary care physician: NO PRIMARY CARE PROVIDER Time Spent in preparation of Discharge (in minutes): 45 Hospital Course - Lab Results Lab Results: Micro Results 03/27/17 05:45 Blood Blood Culture - Final NO GROWTH AFTER 5 DAYS 03/27/17 05:45 Blood Gram Stain - Final TEST NOT PERFORMED 03/27/17 06:37 Urine,Clean Catch Urine Culture - Final No Growth (<1,000 CFU/ML) Most Recent Lab Values WBC 7.3 10^3/ul (4.5-11.0) 04/01/17 06:10 RBC 2.81 10^6/uL (3.5-6.1) L 04/01/17 06:10 Hgb 10.2 gm/dL (14.0-18.0) L 04/01/17 06:10 Hct 29.2 % (42.0-52.0) L 04/01/17 06:10 MCV 103.9 fL (80.0-105.0) 04/01/17 06:10 MCH 36.3 pg (25.0-35.0) H 04/01/17 06:10 MCHC 34.9 g/dl (31.0-37.0) 04/01/17 06:10 RDW 20.5 % (11.5-14.5) H 04/01/17 06:10 Plt Count 121 10^3/uL (120.0-450.0) 04/01/17 06:10 MPV 11.0 fl (7.0-11.0) 04/01/17 06:10 Gran % 61.4 % (50.0-68.0) 04/01/17 06:10 Lymph % (Auto) 23.1 % (22.0-35.0) 04/01/17 06:10 [place] % (Auto) 12.0 % (1.0-6.0) H 04/01/17 06:10 Eos % (Auto) 1.9 % (1.5-5.0) 04/01/17 06:10 Baso % (Auto) 1.6 % (0.0-3.0) 04/01/17 06:10 Gran # 4.50 (1.4-6.5) 04/01/17 06:10 Lymph # 1.7 (1.2-3.4) 04/01/17 06:10 [place] # 0.9 (0.1-0.6) H 04/01/17 06:10 Eos # 0.1 (0.0-0.7) 04/01/17 06:10 Baso # 0.12 K/mm3 (0.0-2.0) 04/01/17 06:10 PT 14.0 Seconds (9.9-11.8) H 03/29/17 02:00 INR 1.30 (0.93-1.08) H 03/29/17 02:00 APTT 30.5 Seconds (23.7-30.8) 03/27/17 02:25 Sodium 132 mmol/L (132-148) 04/01/17 06:10 Potassium 4.0 mmol/L (3.6-5.0) 04/01/17 06:10 Chloride 97 mmol/L (98-107) L 04/01/17 06:10 Carbon Dioxide 24 mmol/L (21-33) 04/01/17 06:10 Anion Gap 15 (10-20) 04/01/17 06:10 BUN 12 mg/dL (7-21) 04/01/17 06:10 Creatinine 0.7 mg/dL (0.5-1.4) 04/01/17 06:10 Est GFR ( Amer) > 60 04/01/17 06:10 Est GFR (Non-Af Amer) > 60 04/01/17 06:10 Random Glucose 101 mg/dL (70-110) 04/01/17 06:10 Lactic Acid 2.9 mmol/L (0.7-2.1) H 03/27/17 06:30 Calcium 9.3 mg/dL (8.4-10.5) 04/01/17 06:10 Phosphorus 2.5 mg/dL (2.5-4.5) 03/28/17 06:00 Magnesium 1.6 mg/dL (1.7-2.2) L 03/28/17 06:00 Total Bilirubin 5.2 mg/dL (0.2-1.3) H 04/01/17 06:10 AST 118 U/L (15-59) H 04/01/17 06:10 ALT 61 U/L (7-56) H 04/01/17 06:10 Alkaline Phosphatase 259 U/L (38-133) H 04/01/17 06:10 Total Protein 8.1 g/dL (5.8-8.3) 04/01/17 06:10 Albumin 3.4 g/dL (3.0-4.8) 04/01/17 06:10 Globulin 4.7 gm/dL 04/01/17 06:10 Albumin/Globulin Ratio 0.7 (1.1-1.8) L 04/01/17 06:10 Triglycerides 164 mg/dL (35-160) H 04/01/17 06:10 Cholesterol 290 mg/dL (130-200) H 04/01/17 06:10 LDL Cholesterol Direct 198 mg/dL (0-129) H 04/01/17 06:10 HDL Cholesterol 30 mg/dL (29-60) 04/01/17 06:10 Procalcitonin 0.32 NG/ML (0.19-0.49) 03/27/17 06:30 Urine Color Light yellow (YELLOW) 03/27/17 06:37 Urine Appearance Clear (CLEAR) 03/27/17 06:37 Urine pH 6.0 (4.7-8.0) 03/27/17 06:37 Ur Specific [place] 1.010 (1.005-1.035) 03/27/17 06:37 Urine Protein Negative mg/dL (<30 mg/dL) 03/27/17 06:37 Urine Glucose (UA) Negative mg/dL (NEGATIVE) 03/27/17 06:37 Urine Ketones Negative mg/dL (NEGATIVE) 03/27/17 06:37 Urine Blood Trace-lysed (NEGATIVE) H 03/27/17 06:37 Urine Nitrate Negative (NEGATIVE) 03/27/17 06:37 Urine Bilirubin Negative (NEGATIVE) 03/27/17 06:37 Urine Urobilinogen 0.2 E.U./dL (<1 E.U./dL) 03/27/17 06:37 Ur Leukocyte Esterase Negative Ty/uL (NEGATIVE) 03/27/17 06:37 Urine RBC 0 - 2 /hpf (0-2) 03/27/17 06:37 Urine WBC 0 - 2 /hpf (0-6) 03/27/17 06:37 Ur Epithelial Cells 0 - 2 /hpf (0-5) 03/27/17 06:37 Urine Bacteria Few (NEG) 03/27/17 06:37 Stool Occult Blood Negative (NEGATIVE) 03/29/17 16:24 Alcohol, Quantitative 306 mg/dL (0-10) H* 03/27/17 00:50 Hepatitis A IgM Ab Negative (NEGATIVE) 03/29/17 02:00 Hep Bs Antigen Negative (NEGATIVE) 03/29/17 02:00 Hep B Core IgM Ab Negative (NEGATIVE) 03/29/17 02:00 Hepatitis C Antibody Negative (NEGATIVE) 03/29/17 02:00 Blood Type A POSITIVE 03/27/17 02:25 Antibody Screen Negative 03/27/17 02:25 Crossmatch See Detail 03/27/17 02:25 BBK History Checked Patient has bt 03/27/17 02:25 - Hospital Course Hospital Course: 47 year old male with history of alcohol abuse, depression, homelessness who got admitted for evaluation of hematochezia and found to be intoxicated and later went into alcohol withdrawal syndrome. Stool guaic was positive with reported hematochezia. He was started on protonix drip. His Hbg was below baseline. Pateint was started on IVF. He was found to have increased LFTs. During his last visit he was scheduled for endoscopy however he signed AMA at that time. GI was consulted. His Hgb stabilized, he did not require blood transfusion. He had multiple BM without any gross blood. Patient was tolerating the diet. GI recommended outpatient endoscopy. Patient's elevated LFT's most likely secondary to alcohol abuse. Patient's DF was 13.8 on admission, steriods use was not indicated at the time. Hep panel negative. Abdomen ultrasound showed fatty liver and 10 mm CBD dilatation. GI recommended outpatient MRCP. CXR showed right perihilar infiltrate secondary to CAP. Patient also reported bilateral LE cellulitis. Patient was afebrile. Blood and urine cultures negative , Procal 0.32. Patient was start on oral antibiotics and nystatin and mupirocin ointments. Patient was given ativan for alcohol withdrawal. Patient was found to have mild and Persistent hyponatremia, which improved thought hospital course with IVF and regular diet. Lipid panel was elevated, was discharged with medication. vamp cut out worker was consulted, patient is homeless, however is not interested in going to snf. Patient is stable for discharge home. He is to follow up with [facility] 04/05 t 10 am, come in 1 day before to register. He is to follow up with GI for outpatient EGD and possible MRCP. Patient was recommended alcohol and smoking cessation. New medications given were keflex 500 tid for 7 days, mupirocin ointment, nystatin/ triamcinolone ointmentm and welchol. Discharge Exam - Head Exam Head Exam: ATRAUMATIC, NORMOCEPHALIC - Eye Exam Eye Exam: Normal appearance - ENT Exam ENT Exam: Mucous Membranes Moist - Respiratory Exam Respiratory Exam: Clear to PA & Lateral, NORMAL BREATHING PATTERN, UNREMARKABLE. absent: Decreased Breath Sounds, Rales, Rhonchi, Wheezes, Respiratory Distress - Cardiovascular Exam Cardiovascular Exam: REGULAR RHYTHM. absent: Tachycardia, Systolic Murmur - GI/Abdominal Exam GI & Abdominal Exam: Normal Bowel Sounds, Soft, Unremarkable. absent: Distended , Firm, Tenderness - Extremities Exam Extremities exam: normal inspection Additional comments: erythema with excoriate on medial aspect of bilateral thighs, improved - Neurological Exam Neurological exam: Alert, Oriented x3 - Skin Skin Exam: Dry, Intact, Normal Color, Warm Discharge Plan - Discharge Medications Prescriptions: Cephalexin [Keflex] 500 mg PO TID #21 capsule Colesevelam HCl [Welchol] 625 mg PO DAILY #20 tablet Mupirocin 2% Ointment [Bactroban Ointment] 22 gm EXT BID #1 tube Nystatin/Triamcinolone [Mycolog Ointment] 30 gm EXT BID #1 tube - Follow Up Plan Condition: STABLE Disposition: HOME/ ROUTINE Instructions: Gastrointestinal Bleeding (DC), Alcohol Intoxication (DC), Abuse of Alcohol (DC) Additional Instructions: Patient is stable for discharge home - follow up with [facility] 04/05 t 10 am, come in 1 day before to register - follow up with GI in 2 weeks - recommended alcohol and smoking cessation new medications - keflex 500 tid for 7 days - mupirocin ointment - nystatin/triamcinolone - welchol 625mg daily Referrals: Iron PERERA,MD Terence [Medical Doctor] - PCP,NO [Primary Care Provider] - <Samy Chowdhury - Last Filed: 04/02/17 15:11> Provider - Provider Date of Admission: 03/27/17 02:17 Attending physician: Samy Chowdhury MD Primary care physician: CEFERINO PRIMARY CARE PROVIDER Hospital Course - Lab Results Lab Results: Micro Results 03/27/17 05:45 Blood Blood Culture - Final NO GROWTH AFTER 5 DAYS 03/27/17 05:45 Blood Gram Stain - Final TEST NOT PERFORMED 03/27/17 06:37 Urine,Clean Catch Urine Culture - Final No Growth (<1,000 CFU/ML) Most Recent Lab Values WBC 7.3 10^3/ul (4.5-11.0) 04/01/17 06:10 RBC 2.81 10^6/uL (3.5-6.1) L 04/01/17 06:10 Hgb 10.2 gm/dL (14.0-18.0) L 04/01/17 06:10 Hct 29.2 % (42.0-52.0) L 04/01/17 06:10 MCV 103.9 fL (80.0-105.0) 04/01/17 06:10 MCH 36.3 pg (25.0-35.0) H 04/01/17 06:10 MCHC 34.9 g/dl (31.0-37.0) 04/01/17 06:10 RDW 20.5 % (11.5-14.5) H 04/01/17 06:10 Plt Count 121 10^3/uL (120.0-450.0) 04/01/17 06:10 MPV 11.0 fl (7.0-11.0) 04/01/17 06:10 Gran % 61.4 % (50.0-68.0) 04/01/17 06:10 Lymph % (Auto) 23.1 % (22.0-35.0) 04/01/17 06:10 [place] % (Auto) 12.0 % (1.0-6.0) H 04/01/17 06:10 Eos % (Auto) 1.9 % (1.5-5.0) 04/01/17 06:10 Baso % (Auto) 1.6 % (0.0-3.0) 04/01/17 06:10 Gran # 4.50 (1.4-6.5) 04/01/17 06:10 Lymph # 1.7 (1.2-3.4) 04/01/17 06:10 [place] # 0.9 (0.1-0.6) H 04/01/17 06:10 Eos # 0.1 (0.0-0.7) 04/01/17 06:10 Baso # 0.12 K/mm3 (0.0-2.0) 04/01/17 06:10 PT 14.0 Seconds (9.9-11.8) H 03/29/17 02:00 INR 1.30 (0.93-1.08) H 03/29/17 02:00 APTT 30.5 Seconds (23.7-30.8) 03/27/17 02:25 Sodium 132 mmol/L (132-148) 04/01/17 06:10 Potassium 4.0 mmol/L (3.6-5.0) 04/01/17 06:10 Chloride 97 mmol/L (98-107) L 04/01/17 06:10 Carbon Dioxide 24 mmol/L (21-33) 04/01/17 06:10 Anion Gap 15 (10-20) 04/01/17 06:10 BUN 12 mg/dL (7-21) 04/01/17 06:10 Creatinine 0.7 mg/dL (0.5-1.4) 04/01/17 06:10 Est GFR ( Amer) > 60 04/01/17 06:10 Est GFR (Non-Af Amer) > 60 04/01/17 06:10 Random Glucose 101 mg/dL (70-110) 04/01/17 06:10 Lactic Acid 2.9 mmol/L (0.7-2.1) H 03/27/17 06:30 Calcium 9.3 mg/dL (8.4-10.5) 04/01/17 06:10 Phosphorus 2.5 mg/dL (2.5-4.5) 03/28/17 06:00 Magnesium 1.6 mg/dL (1.7-2.2) L 03/28/17 06:00 Total Bilirubin 5.2 mg/dL (0.2-1.3) H 04/01/17 06:10 AST 118 U/L (15-59) H 04/01/17 06:10 ALT 61 U/L (7-56) H 04/01/17 06:10 Alkaline Phosphatase 259 U/L (38-133) H 04/01/17 06:10 Total Protein 8.1 g/dL (5.8-8.3) 04/01/17 06:10 Albumin 3.4 g/dL (3.0-4.8) 04/01/17 06:10 Globulin 4.7 gm/dL 04/01/17 06:10 Albumin/Globulin Ratio 0.7 (1.1-1.8) L 04/01/17 06:10 Triglycerides 164 mg/dL (35-160) H 04/01/17 06:10 Cholesterol 290 mg/dL (130-200) H 04/01/17 06:10 LDL Cholesterol Direct 198 mg/dL (0-129) H 04/01/17 06:10 HDL Cholesterol 30 mg/dL (29-60) 04/01/17 06:10 Procalcitonin 0.32 NG/ML (0.19-0.49) 03/27/17 06:30 Urine Color Light yellow (YELLOW) 03/27/17 06:37 Urine Appearance Clear (CLEAR) 03/27/17 06:37 Urine pH 6.0 (4.7-8.0) 03/27/17 06:37 Ur Specific [place] 1.010 (1.005-1.035) 03/27/17 06:37 Urine Protein Negative mg/dL (<30 mg/dL) 03/27/17 06:37 Urine Glucose (UA) Negative mg/dL (NEGATIVE) 03/27/17 06:37 Urine Ketones Negative mg/dL (NEGATIVE) 03/27/17 06:37 Urine Blood Trace-lysed (NEGATIVE) H 03/27/17 06:37 Urine Nitrate Negative (NEGATIVE) 03/27/17 06:37 Urine Bilirubin Negative (NEGATIVE) 03/27/17 06:37 Urine Urobilinogen 0.2 E.U./dL (<1 E.U./dL) 03/27/17 06:37 Ur Leukocyte Esterase Negative Ty/uL (NEGATIVE) 03/27/17 06:37 Urine RBC 0 - 2 /hpf (0-2) 03/27/17 06:37 Urine WBC 0 - 2 /hpf (0-6) 03/27/17 06:37 Ur Epithelial Cells 0 - 2 /hpf (0-5) 03/27/17 06:37 Urine Bacteria Few (NEG) 03/27/17 06:37 Stool Occult Blood Negative (NEGATIVE) 03/29/17 16:24 Alcohol, Quantitative 306 mg/dL (0-10) H* 03/27/17 00:50 Hepatitis A IgM Ab Negative (NEGATIVE) 03/29/17 02:00 Hep Bs Antigen Negative (NEGATIVE) 03/29/17 02:00 Hep B Core IgM Ab Negative (NEGATIVE) 03/29/17 02:00 Hepatitis C Antibody Negative (NEGATIVE) 03/29/17 02:00 Blood Type A POSITIVE 03/27/17 02:25 Antibody Screen Negative 03/27/17 02:25 Crossmatch See Detail 03/27/17 02:25 BBK History Checked Patient has bt 03/27/17 02:25 Attending/Attestation - Attestation I have personally seen and examined this patient.: Yes I have fully participated in the care of the patient.: Yes I have reviewed all pertinent clinical information, including history, physical exam and plan: Yes Notes (Text): 04/02/17 15:08 Attending note; Patient seen and examined with resident. This is a 47 year old male with history of alcohol abuse, depression, homelessness who got admitted for evaluation of hematochezia and found to be intoxicated and later went into alcohol withdrawal syndrome. Withdrawal symptoms improved. Currently ambulating fine. PT evaluation appreciated. Alcoholic hepatitis: Patient has elevated LFT's most likely secondary to alcohol abuse. Hep panel negative. Abdomen ultrasound showed fatty liver and 10 mm CBD dilatation. Discussed with GI. There is no need for MRCP at this time. Sepsis: secondary to CAP (Right blayne hilar infiltrate) and bilateral LE cellulitis. He has been afebrile. Blood and urine cultures negative. Procal 0.32. Treated with IV vancomycin and zosyn. Continue nystatin and mupirocin ointment. DC home with by mouth Keflex. Homeless: Patient is not interested in going to snf. superintendent terminal consult appreciated. Upon discharge [place] [facility] [place] [facility]. Diagnosis; Alcohol abuse gastritis Pneumonia/cellulitis Homelessness
[2017-04-01 16:26] VITALS: BP 118/81; PULSE 87; RESP 18; TEMP 98.7; O2SAT 95
--- NOTE | 2017-04-01 18:22 | CP.PCM.PN ---
Subjective - Date & Time of Evaluation Date of Evaluation: 04/01/17 Time of Evaluation: 12:00 - Subjective Subjective: Infectious Disease Follow Up: April 01, 2017 47 yo male who is homeless presenting with bloody bowel movements over the past few weeks and thick pruritic rash on the inner thighs with excoriations and thickening of the skin there. Area is heavily discolored. The patient came into the hospital with his pants soaked in urine. Patient has no resources to take care of himself. Multiple problems. In legs and thighs, there is a thick fungal rash with secondary cellulitis. Lessar extent on scrotum, buttocks, and lower legs. On Vancomycin and Zosyn for antibiotic therapy. The patient has multiple medical issues. He is homeless. The patient has no resources. Objective - Vital Signs/Intake and Output Vital Signs (last 24 hours): Temp Pulse Resp BP Pulse Ox 98.7 F 87 18 118/81 95 04/01/17 16:24 04/01/17 16:24 04/01/17 16:24 04/01/17 16:24 04/01/17 16:24 Intake and Output: 04/01/17 04/01/17 06:59 18:59 Intake Total 420 660 Output Total 1100 Balance -680 660 - Labs Labs: 04/01/17 06:10 04/01/17 06:10 PT 14.0 Seconds (9.9-11.8) H 03/29/17 02:00 INR 1.30 (0.93-1.08) H 03/29/17 02:00 APTT 30.5 Seconds (23.7-30.8) 03/27/17 02:25 - Constitutional Appears: Non-toxic, No Acute Distress, Chronically Ill - Head Exam Head Exam: ATRAUMATIC, NORMOCEPHALIC - Eye Exam Eye Exam: EOMI, PERRL Pupil Exam: NORMAL ACCOMODATION, PERRL - ENT Exam ENT Exam: Mucous Membranes Moist, Normal External Ear Exam, TM's Normal Bilaterally - Neck Exam Neck Exam: Full ROM, Normal Inspection - Respiratory Exam Respiratory Exam: Clear to Ausculation Bilateral, NORMAL BREATHING PATTERN. absent: Rales, Rhonchi, Wheezes - Cardiovascular Exam Cardiovascular Exam: REGULAR RHYTHM, RRR, +S1, +S2 - GI/Abdominal Exam GI & Abdominal Exam: Soft, Normal Bowel Sounds. absent: Distended, Tenderness - Extremities Exam Extremities Exam: Full ROM Additional comments: weakness. - Neurological Exam Neurological Exam: Alert, Awake, CN II-XII Intact Additional comments: AAO x 2-3 - Psychiatric Exam Psychiatric exam: Normal Affect, Normal Mood - Skin Skin Exam: Intact Additional comments: thickened shepherd discolored area on inner thighs bilaterally. area is also excoriated with mild bleeding. Skin thickened like elephantiasis. weak distal pulses. This has improved greatly since admission. To lessar extent similar findings on scrotum, buttocks, and lower legs. Assessment and Plan - Assessment and Plan (Free Text) Assessment: 47 yo male who is homeless with presentation of blood bowel movements and chronic venous stasis and elephantiasis of the inner thighs. Supportive care. Add nystatin to the thighs. On Vancomycin and Zosyn for antibiotic coverage. Local wound care. Reordered Zosyn. Continue antifungal for fungal rash in inner thighs. The patient is currently in EtOH intoxication. Liver enzymes are also singificantly elevated but improving daily. AST 118 and ALT was 61. Supportive care. Luu cultures. Can consider PO Keflex for treatment. Thank you for allowing me to participate in the care of the patent, we will follow with you.
== END 2017-04-01 17:09 | disposition home or self-care (01) | DRG 750 ==
LOC: ED 18:01 → ERH 03-27 02:17 → 2RSO 03-27 04:31 → 3RNO 03-31 16:27
PROVIDERS: ADMIT Internal Medicine; ATTEND Internal Medicine
DX: F10.239 Alcohol dependence with withdrawal, unspecified (principal); K92.1 Melena; A41.9 Sepsis, unspecified organism; J18.9 Pneumonia, unspecified organism; K70.10 Alcoholic hepatitis without ascites; L03.115 Cellulitis of right lower limb; D64.9 Anemia, unspecified; B36.9 Superficial mycosis, unspecified; E87.1 Hypo-osmolality and hyponatremia; L03.116 Cellulitis of left lower limb; I87.2 Venous insufficiency (chronic) (peripheral); L29.9 Pruritus, unspecified; K29.70 Gastritis, unspecified, without bleeding; Z59.0 Homelessness

== ENCOUNTER 2017-04-12 23:52 | Emergency (ER) | payer MEDICAID ==
[2017-04-12 23:56] VITALS: BMI 23.9
--- NOTE | 2017-04-13 00:34 | ED PDOC ---
Arrival/HPI - General Chief Complaint: Cough, Cold, Congestion Time Seen by Provider: 04/12/17 23:56 Historian: Patient - History of Present Illness Narrative History of Present Illness (Text): 04/13/17 00:31 A 47 year old male, with a history of alcohol abuse and smoking, presents to the emergency department complaining of a productive cough for the passed few days. Patient reports yellow phlegm. Patient denies any chest pain, shortness of breath, dyspnea on exertion, fevers, chills, abdominal pain, nausea, vomiting , diarrhea. Patient denies any other complaints at this time. Time/Duration: < week Symptom Onset: Sudden Symptom Course: Unchanged Activities at Onset: Rest Modifying Factors (Text): none Context: Home Associated Symptoms (Text): none Past Medical History - Provider Review Nursing Documentation Reviewed: Yes - Infectious Disease Hx of Infectious Diseases: None - Tetanus Immunization Tetanus Immunization: Up to Date - Reproductive Currently : No - Past Medical History Past Medical History: No Previous - Cardiac Hx Cardiac Disorders: Yes Hx Hypertension: Yes - Pulmonary Hx Respiratory Disorders: No Hx Tuberculosis: No - Neurological HX Cerebrovascular Accident: No - HEENT Hx HEENT Disorder: No - Renal Hx Renal Disorder: No - Endocrine/Metabolic Hx Endocrine Disorders: No - Hematological/Oncological Hx Blood Disorders: No Hx Cancer: No - Integumentary Hx Dermatological Disorder: No - Musculoskeletal/Rheumatological Hx Falls: Yes - Gastrointestinal Hx Gastrointestinal Disorders: Yes (GASTRITIS,H/O GI BLEED,FATTY LIVER) Hx Pancreatitis: Yes - Genitourinary/Gynecological Hx Genitourinary Disorders: No Hx Sexually Transmitted Diseases: No - Psychiatric Hx Psychophysiologic Disorder: Yes (DEPRESSION,HOMELESSNESS,SMOKES CIGARETTES 7 TO 1/2 PPD) Hx Depression: Yes Hx Substance Use: No Other/Comment: ETOH - Past Surgical History Past Surgical History: No Previous - Anesthesia Hx Anesthesia: Yes Hx Anesthesia Reactions: No Hx Malignant Hyperthermia: No - Suicidal Assessment Feels Threatened In Home Enviroment: No Family/Social History - Physician Review Nursing Documentation Reviewed: Yes Family/Social History: No Known Family HX Smoking Status: Heavy Smoker > 10 Cigarettes Daily Hx Alcohol Use: Yes Frequency of alcohol use: Daily Hx Substance Use: No Hx Substance Use Treatment: No Allergies/Home Meds Allergies/Adverse Reactions: Allergies No Known Allergies Allergy (Verified 03/26/17 18:04) Review of Systems - Physician Review All systems were reviewed & negative as marked: Yes Physical Exam - Physical Exam Narrative Physical Exam (Text): 04/13/17 00:32- Review of Systems Constitutional: Normal. absent: Fatigue, Weight Change, Fevers Eyes: Normal ENT: Normal Respiratory: Present: cough absent: SOB, Sputum Cardiovascular: Normal absent: Chest pain, Palpitations, Syncope Gastrointestinal: Normal absent: Abdominal pain, Diarrhea, Nausea, Vomiting Genitourinary: Normal. absent: Dysuria, Frequency, Hematuria Musculoskeletal: Normal. absent: Arthralgias, Back Pain, Neck Pain Skin: Normal Neurological: Normal absent: Focal Weakness Endocrine: Normal Hemo/Lymphatic: Normal Psychiatric: Normal - Physical exam Patient appears age appropriate, speaking full sentences without difficulty - Systems Exam Head: Present: Atraumatic, Normocephalic Pupils: Present: PERRL Extraocular Muscles: Present: EOMI Conjunctiva: Present: Normal Mouth: Present: Moist Mucous Membranes Neck: Present: Normal Range of Motion. No: MIDLINE TENDERNESS, Paraspinal Tenderness Respiratory/Chest: Present: Clear to Auscultation, Good Air Exchange. No: Respiratory Distress, Accessory Muscle Use, Tachypneic Cardiovascular: Present: Regular Rate and Rhythm, Normal S1, S2, Peripheral Pulses Present. No: Murmurs Abdomen: Present: Normal Bowel Sounds, No: Tenderness, Peritoneal Signs, Rebound, Guarding, Distention Back: Present: Normal Inspection. No: Midline Tenderness, Paraspinal Tenderness Upper Extremity: Present: Normal Inspection. No: Cyanosis, Edema Lower Extremity: Present: Normal Inspection. No: Edema Neurological: Present: GCS=15, Speech Normal, cranial nerves II through XII fully intact with no cerebellar abnormality, neuro-sensory fully intact. No focal neurological deficits. Skin: Present: Warm, Dry, Normal Color. No: Rashes Lymphatic: Present: OX3, NI, NC Psychiatric: Present: Alert, Oriented x 3, Normal Insight, Normal Concentration Vital Signs Reviewed: Yes Vital Signs Pulse Resp BP Pulse Ox 04/13/17 02:15 96 H 16 106/76 95 04/13/17 00:54 86 16 112/72 94 L Blood Pressure: Normal Pulse: Regular Respiratory Rate: Normal Appearance: Positive for: Well-Appearing, Non-Toxic, Comfortable Pain Distress: None Mental Status: Positive for: Alert and Oriented X 3 Medical Decision Making ED Course and Treatment: 04/13/17 00:33 Impression: A 47 year old male with a productive cough. On physical exam, no acute findings. Patient has a history of alcohol use, patient is also has a history of alcohol withdrawal symptoms. Patient is clinically sober, and laying with steady gait, patient has no tachycardia, no hypertension, no tremors, no signs or symptoms of alcohol withdrawal. Plan: -- Doxycycline. Prior Visits: Notes and results from previous visits were reviewed. Patient last reported to the emergency department on 03/26/17 for evaluation of alcohol intoxication. Progress Notes: Pt states he understands to return to the ER right away for new or worsening symptoms or for inability to f/u with PMD or specialist as instructed. Patient states that he fully agrees with and understands discharge instructions. States that he agrees with the plan and disposition. Verbalized and repeated discharge instructions and plan. I have given the patient opportunity to ask any additional questions. - Medication Orders Current Medication Orders: Discontinued Medications Doxycycline Hyclate (Doryx) 100 mg PO STAT STA PRN Reason: Protocol Stop: 04/13/17 00:32 Last Admin: 04/13/17 01:05 Dose: 100 mg - Scribe Statement The provider has reviewed the documentation as recorded by the Scribe Shimon Roach All medical record entries made by the Tedibe were at my direction and personally dictated by me. I have reviewed the chart and agree that the record accurately reflects my personal performance of the history, physical exam, medical decision making, and the department course for this patient. I have also personally directed, reviewed, and agree with the discharge instructions and disposition. Disposition/Present on Arrival - Present on Arrival Any Indicators Present on Arrival: No History of DVT/PE: No History of Uncontrolled Diabetes: No Urinary Catheter: No History of Decub. Ulcer: No History Surgical Site Infection Following: None - Disposition Have Diagnosis and Disposition been Completed?: Yes Diagnosis: Cough Disposition: HOME/ ROUTINE Disposition Time: 00:25 Patient Plan: Discharge Patient Problems: Current Active Problems Problem Status Onset Cough Acute Condition: GOOD Discharge Instructions (ExitCare): Acute Cough (ED) Additional Instructions: PLEASE RETURN TO THE EMERGENCY DEPARTMENT FOR NEW OR WORSENING SYMPTOMS. RETURN RIGHT AWAY IF YOU CANNOT FOLLOW UP WITH YOUR PRIMARY CARE DOCTOR, CLINIC, OR SPECIALIST IN 1-2 DAYS. Prescriptions: Albuterol HFA [Ventolin HFA 90 mcg/actuation (8 g)] 2 puff IH Q4 PRN #1 puff PRN Reason: Cough Benzonatate [Tessalon Perle] 100 mg PO BID PRN #12 capsule PRN Reason: Cough Doxycycline Monohydrate 100 mg PO BID #27 tablet Referrals: [facility] [place]] - Follow up with primary
[2017-04-13 00:55] VITALS: RESP 16
[2017-04-13 02:15] VITALS: BP 106/76; PULSE 96; O2SAT 95
== END 2017-04-13 02:10 | disposition home or self-care (01) ==
LOC: ED 23:52
DX: R05 Cough (principal)

== ENCOUNTER 2017-05-23 21:23 | Observation (INO) | payer MEDICAID, OTHER ==
[2017-05-23 21:23] VITALS: BMI 23.9
[2017-05-23 21:45] VITALS: RESP 16; TEMP 98.4
[2017-05-23 23:30] VITALS: BP 108/57; PULSE 96; O2SAT 98
--- NOTE | 2017-05-24 00:07 | ED PDOC ---
Arrival/HPI - General Chief Complaint: Alcohol Ingestion Time Seen by Provider: 05/23/17 21:57 Historian: Patient - History of Present Illness Narrative History of Present Illness (Text): 05/24/17 21:57 Angelo Mccormick is a 47 year old male, whose past medical history includes alcohol abuse and smoking, who presents to the emergency department complaining of ETOH ingestion with associated weakness today. At present, patient is alert, oriented, and able to answer questions. Patient states that today is his first time drinking alcohol in months and says "it just hit me hard." Patient denies any fever, chills, chest pain, shortness of breath, urinary symptoms, back pain , neck pain, dizziness, or any other complaints. Time/Duration: 24 hours Symptom Onset: Gradual Symptom Course: Unchanged Severity Level: Mild Activities at Onset: Light Context: Home Past Medical History - Provider Review Nursing Documentation Reviewed: Yes - Infectious Disease Hx of Infectious Diseases: None - Tetanus Immunization Tetanus Immunization: Up to Date - Reproductive Currently : No - Past Medical History Past Medical History: No Previous - Cardiac Hx Cardiac Disorders: Yes Hx Hypertension: Yes - Pulmonary Hx Respiratory Disorders: No Hx Tuberculosis: No - Neurological HX Cerebrovascular Accident: No - HEENT Hx HEENT Disorder: No - Renal Hx Renal Disorder: No - Endocrine/Metabolic Hx Endocrine Disorders: No - Hematological/Oncological Hx Blood Disorders: No Hx Cancer: No - Integumentary Hx Dermatological Disorder: No - Musculoskeletal/Rheumatological Hx Falls: Yes - Gastrointestinal Hx Gastrointestinal Disorders: Yes (GASTRITIS,H/O GI BLEED,FATTY LIVER) Hx Pancreatitis: Yes - Genitourinary/Gynecological Hx Genitourinary Disorders: No Hx Sexually Transmitted Diseases: No - Psychiatric Hx Psychophysiologic Disorder: Yes (DEPRESSION,HOMELESSNESS,SMOKES CIGARETTES 7 TO 1/2 PPD) Hx Depression: Yes Hx Substance Use: No Other/Comment: ETOH - Past Surgical History Past Surgical History: No Previous - Anesthesia Hx Anesthesia: Yes Hx Anesthesia Reactions: No Hx Malignant Hyperthermia: No - Suicidal Assessment Feels Threatened In Home Enviroment: No Family/Social History - Physician Review Nursing Documentation Reviewed: Yes Family/Social History: No Known Family HX Smoking Status: Heavy Smoker > 10 Cigarettes Daily Hx Alcohol Use: Yes Frequency of alcohol use: Daily Hx Substance Use: No Hx Substance Use Treatment: No Allergies/Home Meds Allergies/Adverse Reactions: Allergies No Known Allergies Allergy (Verified 03/26/17 18:04) Review of Systems - Physician Review All systems were reviewed & negative as marked: Yes - Review of Systems Constitutional: Other (Generalized weakness) Eyes: absent: Vision Changes ENT: absent: Hearing Changes Respiratory: absent: SOB, Cough Cardiovascular: absent: Chest Pain Gastrointestinal: absent: Abdominal Pain Genitourinary Male: absent: Dysuria Musculoskeletal: absent: Arthralgias Skin: absent: Rash Neurological: absent: Headache Hemo/Lymphatic: absent: Adenopathy Physical Exam Vital Signs Reviewed: Yes Vital Signs Temp Pulse Resp BP Pulse Ox 05/23/17 23:29 96 H 16 108/57 L 98 05/23/17 21:44 98.4 F 94 H 16 106/61 95 Temperature: Afebrile Blood Pressure: Normal Pulse: Tachycardic Respiratory Rate: Normal Appearance: Positive for: Comfortable Pain Distress: None Finger Stick Blood Glucose: 84 - Systems Exam Head: Present: Atraumatic, Normocephalic Pupils: Present: PERRL Extroacular Muscles: Present: EOMI Conjunctiva: Present: Normal Mouth: Present: Moist Mucous Membranes Neck: Present: Normal Range of Motion Respiratory/Chest: Present: Clear to Auscultation, Good Air Exchange. No: Respiratory Distress, Accessory Muscle Use Cardiovascular: Present: Regular Rate and Rhythm, Normal S1, S2. No: Murmurs Abdomen: Present: Normal Bowel Sounds. No: Tenderness, Distention, Peritoneal Signs Back: Present: Normal Inspection Upper Extremity: Present: Normal Inspection. No: Cyanosis, Edema Lower Extremity: Present: Normal Inspection. No: Edema Neurological: Present: GCS=15, CN II-XII Intact, Speech Normal Skin: Present: Warm, Dry, Normal Color. No: Rashes Psychiatric: Present: Alert, Oriented x 3, Normal Insight, Normal Concentration ED OBSERVATION Discharge: Yes Date of observation admission: 05/23/17 Time of observation admission: 22:00 - Observation admission statement Patient is being placed in observation because:: Impression: 47 year old male complaining of ETOH use with associated generalized weakness today. - Goals of Observation Goals of observation are:: Plan: -- Reassess and disposition Prior Visits: Notes and results from previous visits were reviewed. Patient last seen in ED on 04/13/17 for productive cough for a few days. Patient discharged home. - Progress Note Progress Note: 05/24/17 00:12 Patient is states that he feels better and is in no acute distress, patient asks to go home. Patient is asymptomatic and ambulating normally, will discharge patient home. - Scribe Statement The provider has reviewed the documentation as recorded by the Debbie Mcnally Provider Scribe Attestation: All medical record entries made by the Scribe were at my direction and personally dictated by me. I have reviewed the chart and agree that the record accurately reflects my personal performance of the history, physical exam, medical decision making, and the department course for this patient. I have also personally directed, reviewed, and agree with the discharge instructions and disposition. Disposition/Present on Arrival - Present on Arrival Any Indicators Present on Arrival: No History of DVT/PE: No History of Uncontrolled Diabetes: No Urinary Catheter: No History of Decub. Ulcer: No History Surgical Site Infection Following: None - Disposition Have Diagnosis and Disposition been Completed?: Yes Diagnosis: Alcohol abuse Disposition: HOME/ ROUTINE Disposition Time: 12:12 Patient Problems: Current Active Problems Problem Status Onset Alcohol abuse Acute Condition: IMPROVED
== END 2017-05-24 00:36 | disposition home or self-care (01) ==
LOC: ED 21:23 → EROBSV 22:03
PROVIDERS: ADMIT Emergency Medicine; ATTEND Emergency Medicine
DX: F10.10 Alcohol abuse, uncomplicated (principal)
CPT/HCPCS: 82948; 99283; G0378

== ENCOUNTER 2017-05-24 17:56 | Observation (INO) | payer MEDICAID ==
[2017-05-24 17:57] VITALS: BMI 23.9
[2017-05-24 18:06] VITALS: TEMP 98.9
--- NOTE | 2017-05-24 18:22 | ED PDOC ---
Arrival/HPI - General Chief Complaint: Alcohol Ingestion Time Seen by Provider: 05/24/17 18:06 Historian: Patient - History of Present Illness Narrative History of Present Illness (Text): 05/24/17 18:23 47 year old male, well known to the emergency department, with a history of alcohol abuse, brought to the emergency department by EMS for alcohol intoxication. Patient admits to drinking today. Denies other complaints. Time/Duration: 24 hours Symptom Onset: Gradual Symptom Course: Unchanged Modifying Factors (Text): None Past Medical History - Provider Review Nursing Documentation Reviewed: Yes - Infectious Disease Hx of Infectious Diseases: None - Tetanus Immunization Tetanus Immunization: Up to Date - Reproductive Currently : No - Past Medical History Past Medical History: No Previous - Cardiac Hx Cardiac Disorders: Yes Hx Hypertension: Yes - Pulmonary Hx Respiratory Disorders: No Hx Tuberculosis: No - Neurological HX Cerebrovascular Accident: No - HEENT Hx HEENT Disorder: No - Renal Hx Renal Disorder: No - Endocrine/Metabolic Hx Endocrine Disorders: No - Hematological/Oncological Hx Blood Disorders: No Hx Cancer: No - Integumentary Hx Dermatological Disorder: No - Musculoskeletal/Rheumatological Hx Falls: Yes - Gastrointestinal Hx Gastrointestinal Disorders: Yes (GASTRITIS,H/O GI BLEED,FATTY LIVER) Hx Pancreatitis: Yes - Genitourinary/Gynecological Hx Genitourinary Disorders: No Hx Sexually Transmitted Diseases: No - Psychiatric Hx Psychophysiologic Disorder: Yes (DEPRESSION,HOMELESSNESS,SMOKES CIGARETTES 7 TO 1/2 PPD) Hx Depression: Yes Hx Substance Use: No Other/Comment: ETOH - Past Surgical History Past Surgical History: No Previous - Anesthesia Hx Anesthesia: Yes Hx Anesthesia Reactions: No Hx Malignant Hyperthermia: No - Suicidal Assessment Feels Threatened In Home Enviroment: No Family/Social History - Physician Review Nursing Documentation Reviewed: Yes Family/Social History: Unknown Family HX Smoking Status: Heavy Smoker > 10 Cigarettes Daily Hx Alcohol Use: Yes Hx Substance Use: No Hx Substance Use Treatment: No Allergies/Home Meds Allergies/Adverse Reactions: Allergies No Known Allergies Allergy (Verified 05/24/17 18:06) Home Medications: Home Meds Medication Instructions Recorded Confirmed No Known Home Med 05/24/17 05/24/17 Review of Systems - Physician Review All systems were reviewed & negative as marked: Yes - Review of Systems Respiratory: absent: SOB Cardiovascular: absent: Chest Pain Physical Exam - Physical Exam Narrative Physical Exam (Text): Constitutional: No acute distress. Head: Normocephalic. Atraumatic. Eyes: PERRL. ENT: Moist mucous membranes. Neck: Supple. Cardiovascular: Regular rate. Chest: No tenderness. Respiratory: Clear to auscultation bilaterally. GI: Soft. Nontender. Nondistended. Back: No CVA tenderness. Musculoskeletal: No tenderness or swelling of extremities. Skin: No rash. Neurologic: Alert, no focal deficit. Vital Signs Reviewed: Yes Vital Signs Temp Pulse Resp BP Pulse Ox 05/24/17 21:16 79 18 112/68 100 05/24/17 20:13 81 18 108/71 100 05/24/17 19:44 89 18 111/75 99 05/24/17 18:29 98.9 F 98 H 18 109/72 98 05/24/17 18:02 98.9 F 98 H 20 109/72 98 Temperature: Afebrile Blood Pressure: Normal Pulse: Regular Respiratory Rate: Normal Appearance: Positive for: Well-Appearing, Non-Toxic Mental Status: Positive for: Alert and Oriented X 3 Medical Decision Making ED Course and Treatment: Impression: 47 year old male, well known to the emergency department, with a history of alcohol abuse, brought to the emergency department by EMS for alcohol intoxication. Plan: -- Reassess and disposition Prior Visits: Notes and results from previous visits were reviewed. Patient last seen in the ED on 05/23/17 for alcohol intoxication and discharged home. Progress Notes: ED OBSERVATION Discharge: Yes Date of observation admission: 05/24/17 Time of observation admission: 18:30 - Observation admission statement Patient is being placed in observation because:: intoxication - Goals of Observation Goals of observation are:: sobriety - Progress Note Progress Note: 1830 Intoxicated, in no acute distress. 2029 No acute distress. Sleeping. 2107 No acute distress. 2210 Patient awake, steady gait, walked to bathroom. Will discharge. - Scribe Statement The provider has reviewed the documentation as recorded by the Debbie Mora Provider Scribe Attestation: All medical record entries made by the Scribe were at my direction and personally dictated by me. I have reviewed the chart and agree that the record accurately reflects my personal performance of the history, physical exam, medical decision making, and the department course for this patient. I have also personally directed, reviewed, and agree with the discharge instructions and disposition. Disposition/Present on Arrival - Present on Arrival Any Indicators Present on Arrival: No History of DVT/PE: No History of Uncontrolled Diabetes: No Urinary Catheter: No History of Decub. Ulcer: No History Surgical Site Infection Following: None - Disposition Have Diagnosis and Disposition been Completed?: Yes Diagnosis: Alcohol intoxication Disposition: HOME/ ROUTINE Disposition Time: 22:11 Patient Plan: Discharge Condition: STABLE
[2017-05-24 18:30] VITALS: RESP 18
[2017-05-24 20:13] VITALS: O2SAT 100
[2017-05-24 21:17] VITALS: BP 112/68; PULSE 79
== END 2017-05-24 22:12 | disposition home or self-care (01) ==
LOC: ED 17:56 → EROBSV 18:30
PROVIDERS: ADMIT Student in an Organized Health Care Education/Training Program; ATTEND Student in an Organized Health Care Education/Training Program
DX: F10.129 Alcohol abuse with intoxication, unspecified (principal)
CPT/HCPCS: 99283; G0378

== ENCOUNTER 2017-05-29 10:59 | Emergency (ER) | payer MEDICAID ==
[2017-05-29 11:00] VITALS: BMI 23.9
[2017-05-29 11:14] VITALS: BP 131/81; PULSE 86; RESP 18; TEMP 98; O2SAT 98
== END 2017-05-29 14:08 | disposition left against medical advice (07) ==
LOC: ED 10:59
DX: Z02.89 Encounter for other administrative examinations (principal); Z00.00 Encounter for general adult medical examination without abnormal findings

== ENCOUNTER 2017-05-30 23:33 | Observation (INO) | payer MEDICAID ==
[2017-05-30 23:34] VITALS: BMI 23.9
--- NOTE | 2017-05-30 23:46 | ED PDOC ---
Arrival/HPI - General Time Seen by Provider: 05/30/17 23:41 Historian: Patient - History of Present Illness Narrative History of Present Illness (Text): 05/30/17 23:40 Patient presents with slurring of speech and alcohol on breath. Admits to drinking throughout the day. Pt denies suicidal or homicidal ideations. Denies any trauma or injury. Time/Duration: Other (tonight) Symptom Onset: Gradual Symptom Course: Unchanged Activities at Onset: Light Past Medical History - Provider Review Nursing Documentation Reviewed: Yes - Infectious Disease Hx of Infectious Diseases: None - Tetanus Immunization Tetanus Immunization: Up to Date - Reproductive Currently : No - Past Medical History Past Medical History: No Previous - Cardiac Hx Cardiac Disorders: Yes Hx Hypertension: Yes - Pulmonary Hx Respiratory Disorders: No Hx Tuberculosis: No - Neurological HX Cerebrovascular Accident: No - HEENT Hx HEENT Disorder: No - Renal Hx Renal Disorder: No - Endocrine/Metabolic Hx Endocrine Disorders: No - Hematological/Oncological Hx Blood Disorders: No Hx Cancer: No - Integumentary Hx Dermatological Disorder: No - Musculoskeletal/Rheumatological Hx Falls: Yes - Gastrointestinal Hx Gastrointestinal Disorders: Yes (GASTRITIS,H/O GI BLEED,FATTY LIVER) Hx Pancreatitis: Yes - Genitourinary/Gynecological Hx Genitourinary Disorders: No Hx Sexually Transmitted Diseases: No - Psychiatric Hx Psychophysiologic Disorder: Yes (DEPRESSION,HOMELESSNESS,SMOKES CIGARETTES 7 TO 1/2 PPD) Hx Depression: Yes Hx Substance Use: No Other/Comment: ETOH - Past Surgical History Past Surgical History: No Previous - Anesthesia Hx Anesthesia: Yes Hx Anesthesia Reactions: No Hx Malignant Hyperthermia: No - Suicidal Assessment Feels Threatened In Home Enviroment: No Family/Social History - Physician Review Nursing Documentation Reviewed: Yes Family/Social History: Unknown Family HX Smoking Status: Heavy Smoker > 10 Cigarettes Daily Hx Alcohol Use: Yes Hx Substance Use: No Hx Substance Use Treatment: No Allergies/Home Meds Allergies/Adverse Reactions: Allergies No Known Allergies Allergy (Verified 05/30/17 23:54) Home Medications: Home Meds Medication Instructions Recorded Confirmed No Known Home Med 05/24/17 05/30/17 Physical Exam - Physical Exam Narrative Physical Exam (Text): - Review of Systems Constitutional: Normal. absent: Fatigue, Weight Change, Fevers Eyes: Normal ENT: Normal Respiratory: Normal absent: SOB, Cough, Sputum Cardiovascular: Normal absent: Chest pain, Palpitations, Syncope Gastrointestinal: Normal absent: Abdominal pain, Diarrhea, Nausea, Vomiting Genitourinary: Normal. absent: Dysuria, Frequency, Hematuria Musculoskeletal: Normal. absent: Arthralgias, Back Pain, Neck Pain Skin: Normal Neurological: Normal absent: Focal Weakness Endocrine: Normal Hemo/Lymphatic: Normal Psychiatric: +alcohol intoxication Patient is in no distress, no airway compromise, breathing without difficulty, good insp/exp effort. No signs of head/torso/extremity trauma. Following commands without difficulty. Head: Present: Atraumatic, Normocephalic. No: Tenderness, Contusion, Swelling, Ecchymosis, Abrasion, Laceration Pupils: Present: PERRL Extroacular Muscles: Present: EOMI Conjunctiva: Present: Normal Mouth: Present: Moist Mucous Membranes Neck: Present: Normal Range of Motion. No: MIDLINE TENDERNESS, Paraspinal Tenderness Respiratory/Chest: Present: Clear to Auscultation, Good Air Exchange. No: Respiratory Distress, Accessory Muscle Use Cardiovascular: Present: Regular Rate and Rhythm, Normal S1, S2. No: Murmurs Abdomen: Present: Normal Bowel Sounds. No: Tenderness, Distention, Peritoneal Signs, Rebound, Guarding Back: Present: Normal Inspection. No: Midline Tenderness, Paraspinal Tenderness Upper Extremity: Present: Normal Inspection. No: Cyanosis, Edema Lower Extremity: Present: Normal Inspection. No: Edema Neurological: Present: GCS=15, CN II-XII Intact Skin: Present: Warm, Dry, Normal Color. No: Rashes Lymphatic: Present: OX3, NI, NC Psychiatric: Present: Alert. Absent: Agitated, suicidal/homicidal ideations Vital Signs Reviewed: Yes Vital Signs Temp Pulse Resp BP Pulse Ox 05/31/17 00:01 98.7 F 100 H 16 138/64 97 Temperature: Afebrile Blood Pressure: Normal Pulse: Regular Respiratory Rate: Normal Appearance: Positive for: Well-Appearing, Non-Toxic, Comfortable Pain Distress: None Mental Status: Positive for: Alert and Oriented X 3 Medical Decision Making ED Course and Treatment: Impression: 47 year old male brought in for alcohol intoxication. Differential Diagnosis included but are not limited to: alcohol intoxication Plan: -- Reassess and disposition Prior Visits: Notes and results from previous visits were reviewed. Pt with multiple prior visits for alcohol intoxication/similar presentation. Pt d/c home. Progress Notes: ED OBSERVATION Discharge: Yes Date of observation admission: 05/30/17 Time of observation admission: 23:40 - Observation admission statement Patient is being placed in observation because:: alcohol intoxication - Goals of Observation Goals of observation are:: sobriety - Progress Note Progress Note: 05/30/17 23:40 Pt in no acute distress, stable condition. Will observe pending sobriety. 05/31/17 01:20 Pt awake, alert, ambulating with steady gait. Clinically sober. No signs or symptoms of alcohol withdrawal. Pt stable for d/c pt refused to sign or take paperwork. - Scribe Statement The provider has reviewed the documentation as recorded by the Debbie Jackman Provider Scribe Attestation: All medical record entries made by the Scribaudi were at my direction and personally dictated by me. I have reviewed the chart and agree that the record accurately reflects my personal performance of the history, physical exam, medical decision making, and the department course for this patient. I have also personally directed, reviewed, and agree with the discharge instructions and disposition. Disposition/Present on Arrival - Present on Arrival Any Indicators Present on Arrival: No History of DVT/PE: No History of Uncontrolled Diabetes: No Urinary Catheter: No History Surgical Site Infection Following: None - Disposition Have Diagnosis and Disposition been Completed?: Yes Diagnosis: Alcohol intoxication Disposition: HOME/ ROUTINE Disposition Time: 23:40 Patient Plan: Discharge Condition: STABLE
[2017-05-31 00:05] VITALS: BP 138/64; PULSE 100; RESP 16; TEMP 98.7; O2SAT 97
== END 2017-05-31 01:24 | disposition home or self-care (01) ==
LOC: ED 23:33 → EROBSV 23:41
PROVIDERS: ADMIT Emergency Medicine; ATTEND Emergency Medicine
DX: F10.129 Alcohol abuse with intoxication, unspecified (principal)
CPT/HCPCS: 82948; 99283; G0378

== ENCOUNTER 2017-05-31 11:07 | Observation (INO) | payer MEDICAID ==
[2017-05-31 11:25] VITALS: RESP 18; TEMP 98.6; BMI 20.7
--- NOTE | 2017-05-31 12:07 | RAD ---
HISTORY: r/o infiltrate COMPARISON: No prior. FINDINGS: LUNGS: No active pulmonary disease. PLEURA: No significant pleural effusion identified, no pneumothorax apparent. CARDIOVASCULAR: Normal. OSSEOUS STRUCTURES: No significant abnormalities. VISUALIZED UPPER ABDOMEN: Normal. OTHER FINDINGS: None. IMPRESSION: No active disease.
--- NOTE | 2017-05-31 12:20 | ED PDOC ---
Arrival/HPI - General Chief Complaint: Cough, Cold, Congestion Time Seen by Provider: 05/31/17 11:30 Historian: Patient - History of Present Illness Narrative History of Present Illness (Text): 05/31/17 12:18 The patient is a 47yo male, presents to the Emergency department with complaints of cough. Pt also presents with slurring of speech and alcohol on breath. Admits to drinking beer this morning. Pt denies suicidal or homicidal ideation. Denies any trauma or injury. No other medical complaints. Past Medical History - Provider Review Nursing Documentation Reviewed: Yes - Infectious Disease Hx of Infectious Diseases: None - Tetanus Immunization Tetanus Immunization: Up to Date - Reproductive Currently : No - Past Medical History Past Medical History: No Previous - Cardiac Hx Cardiac Disorders: Yes Hx Hypertension: Yes - Pulmonary Hx Respiratory Disorders: No Hx Tuberculosis: No - Neurological HX Cerebrovascular Accident: No - HEENT Hx HEENT Disorder: No - Renal Hx Renal Disorder: No - Endocrine/Metabolic Hx Endocrine Disorders: No - Hematological/Oncological Hx Blood Disorders: No Hx Cancer: No - Integumentary Hx Dermatological Disorder: No - Musculoskeletal/Rheumatological Hx Falls: Yes - Gastrointestinal Hx Gastrointestinal Disorders: Yes (GASTRITIS,H/O GI BLEED,FATTY LIVER) Hx Pancreatitis: Yes - Genitourinary/Gynecological Hx Genitourinary Disorders: No Hx Sexually Transmitted Diseases: No - Psychiatric Hx Psychophysiologic Disorder: Yes (DEPRESSION,HOMELESSNESS,SMOKES CIGARETTES 7 TO 1/2 PPD) Hx Depression: Yes Hx Substance Use: No Other/Comment: ETOH - Past Surgical History Past Surgical History: No Previous - Anesthesia Hx Anesthesia: Yes Hx Anesthesia Reactions: No Hx Malignant Hyperthermia: No - Suicidal Assessment Feels Threatened In Home Enviroment: No Family/Social History - Physician Review Nursing Documentation Reviewed: Yes Family/Social History: No Known Family HX Smoking Status: Heavy Smoker > 10 Cigarettes Daily Hx Alcohol Use: Yes (BEER) Frequency of alcohol use: Daily Hx Substance Use: No Hx Substance Use Treatment: No Allergies/Home Meds Allergies/Adverse Reactions: Allergies No Known Allergies Allergy (Verified 05/31/17 11:26) Home Medications: Home Meds Medication Instructions Recorded Confirmed No Known Home Med 05/24/17 05/31/17 Review of Systems - Physician Review All systems were reviewed & negative as marked: Yes - Review of Systems Respiratory: Cough Psychiatric: Other (alcohol intoxication) Physical Exam Vital Signs Temp Pulse Resp BP Pulse Ox 05/31/17 18:16 78 18 126/73 98 05/31/17 14:56 97 H 18 114/72 95 05/31/17 11:25 98.6 F 81 18 135/93 H 97 Temperature: Afebrile Respiratory Rate: Normal Pain Distress: None Mental Status: Positive for: Alert and Oriented X 3 - Systems Exam Head: Present: Atraumatic, Normocephalic Mouth: Present: Moist Mucous Membranes Respiratory/Chest: Present: Clear to Auscultation, Good Air Exchange. No: Respiratory Distress, Accessory Muscle Use Cardiovascular: Present: Regular Rate and Rhythm, Normal S1, S2. No: Murmurs Neurological: Present: GCS=15, CN II-XII Intact, Speech Normal Skin: Present: Warm, Dry, Normal Color. No: Rashes Psychiatric: Present: Alert, Oriented x 3, Other (pt w/ alcohol on breath, slurred speech) Medical Decision Making ED Course and Treatment: 05/31/17 12:21 Impression: Alcohol intoxication, cough Differential Diagnosis included but are not limited to: Plan: -- CXR -- Reassess and disposition Prior Visits: Patient with multiple prior visits with similar presentations; notes regarding stay were reviewed. Pt was discharged home. Progress Notes: 05/31/17 12:23 CXR shows no acute disease. 05/31/17 14:04 Pt to be placed in ED observation pending clinical sobriety. - RAD Interpretation Radiology Orders: 05/31/17 11:48 CHEST PORTABLE [RAD] Stat ED OBSERVATION Discharge: Yes Date of observation admission: 05/31/17 Time of observation admission: 14:04 - Observation admission statement Patient is being placed in observation because:: Pt pending clinical sobriety. - Progress Note Progress Note: 05/31/17 14:06 Pt resting in room, vitals stable. 05/31/17 16:01 Pt asleep in room, no distress. 05/31/17 18:14 Patient awake, alert and oriented x 3. Stable for discharge home. Disposition/Present on Arrival - Present on Arrival Any Indicators Present on Arrival: No History of DVT/PE: No History of Uncontrolled Diabetes: No Urinary Catheter: No History of Decub. Ulcer: No History Surgical Site Infection Following: None - Disposition Have Diagnosis and Disposition been Completed?: Yes Diagnosis: Alcohol intoxication Disposition: HOME/ ROUTINE Disposition Time: 14:04 Patient Problems: Current Active Problems Problem Status Onset Alcohol intoxication Acute Condition: IMPROVED
[2017-06-01 12:01] VITALS: BP 126/73; PULSE 78; O2SAT 98
== END 2017-05-31 20:44 | disposition home or self-care (01) ==
LOC: ED 11:07 → EROBSV 14:04
PROVIDERS: ADMIT Emergency Medicine; ATTEND Emergency Medicine
DX: F10.129 Alcohol abuse with intoxication, unspecified (principal)
CPT/HCPCS: 71010; 99284; G0378

== ENCOUNTER 2017-06-03 20:13 | Emergency (ER) | payer MEDICAID ==
[2017-06-03 20:14] VITALS: BMI 20.7
[2017-06-03 20:24] VITALS: BP 112/64; PULSE 88; RESP 18; TEMP 97.9; O2SAT 99
== END 2017-06-03 21:00 | disposition left against medical advice (07) ==
LOC: ED 20:13
DX: Z02.89 Encounter for other administrative examinations (principal); F10.10 Alcohol abuse, uncomplicated

== ENCOUNTER 2017-06-04 13:52 | Emergency (ER) | payer MEDICAID ==
[2017-06-04 14:05] VITALS: BMI 25.9
[2017-06-04 14:13] VITALS: BP 132/71; PULSE 85; RESP 18; TEMP 98.3; O2SAT 98
[2017-06-04] MEDS ORDERED: TDAP Vaccine 0.5 mL Syr IM ONE (14:16)
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
--- NOTE | 2017-06-04 15:15 | RAD ---
PROCEDURE: Left Hand Radiographs. HISTORY: puncture wound COMPARISON: None. FINDINGS: BONES: Normal. No fracture. JOINTS: Normal. No osteoarthritic changes. SOFT TISSUES: No evidence of foreign body OTHER FINDINGS: None. IMPRESSION: No evidence of dense foreign body
== END 2017-06-04 15:23 | disposition home or self-care (01) ==
LOC: ED 13:52
DX: S61.412A Laceration without foreign body of left hand, initial encounter (principal); X99.8XXA Assault by other sharp object, initial encounter; Y93.89 Activity, other specified; Y92.511 Restaurant or cafe as the place of occurrence of the external cause; Z23 Encounter for immunization

== ENCOUNTER 2017-06-04 21:58 | Emergency (ER) | payer MEDICAID ==
[2017-06-04 21:59] VITALS: BMI 25.9
[2017-06-04 22:19] VITALS: BP 116/74; PULSE 18; RESP 99; TEMP 98.2; O2SAT 99
== END 2017-06-04 23:00 | disposition left against medical advice (07) ==
LOC: ED 21:58
DX: Z02.89 Encounter for other administrative examinations (principal); S69.91XA Unspecified injury of right wrist, hand and finger(s), initial encounter

== ENCOUNTER 2017-06-05 11:09 | Emergency (ER) | payer MEDICAID ==
[2017-06-05 11:14] VITALS: BMI 23.8
[2017-06-05 11:17] VITALS: TEMP 98.6
--- NOTE | 2017-06-05 11:50 | ED PDOC ---
Arrival/HPI - General Chief Complaint: Alcohol Ingestion Time Seen by Provider: 06/05/17 11:14 Historian: Patient, EMS - History of Present Illness Narrative History of Present Illness (Text): 06/05/17 11:44 A 49 year old male well known to the emergency department, whose past medical history includes alcohol abuse, was brought into the emergency department by EMS for public intoxication. Patient admits to drinking alcohol today. As per family friend, Honey Fan, a few days ago patient expressed wanting to . Patient was further questioned and when asked if he wants to hurt himself he answered "why not". However he is denying any current plan and says he has no actual plan to hurt himself at this time. He also specifically said he will not harm himself. Patient was seen in the emergency room yesterday for a laceration to his left hand. Patient was treated and discharged home. Patient denies pain in left hand or any other acute physical complaints. Time/Duration: Prior to Arrival Symptom Course: Unchanged Quality: Other Context: Other Past Medical History - Provider Review Nursing Documentation Reviewed: Yes - Infectious Disease Hx of Infectious Diseases: None - Tetanus Immunization Tetanus Immunization: Up to Date - Reproductive Currently : No - Past Medical History Past Medical History: No Previous - Cardiac Hx Cardiac Disorders: Yes Hx Hypertension: Yes - Pulmonary Hx Respiratory Disorders: No Hx Tuberculosis: No - Neurological HX Cerebrovascular Accident: No - HEENT Hx HEENT Disorder: No - Renal Hx Renal Disorder: No - Endocrine/Metabolic Hx Endocrine Disorders: No - Hematological/Oncological Hx Blood Disorders: No Hx Cancer: No - Integumentary Hx Dermatological Disorder: No - Musculoskeletal/Rheumatological Hx Falls: Yes - Gastrointestinal Hx Gastrointestinal Disorders: Yes (GASTRITIS,H/O GI BLEED,FATTY LIVER) Hx Pancreatitis: Yes - Genitourinary/Gynecological Hx Genitourinary Disorders: No Hx Sexually Transmitted Diseases: No - Psychiatric Hx Psychophysiologic Disorder: Yes (DEPRESSION,HOMELESSNESS,SMOKES CIGARETTES 7 TO 1/2 PPD) Hx Depression: Yes Hx Substance Use: No Other/Comment: ETOH - Past Surgical History Past Surgical History: No Previous - Anesthesia Hx Anesthesia: Yes Hx Anesthesia Reactions: No Hx Malignant Hyperthermia: No - Suicidal Assessment Feels Threatened In Home Enviroment: No Family/Social History - Physician Review Nursing Documentation Reviewed: Yes Family/Social History: No Known Family HX Smoking Status: Heavy Smoker > 10 Cigarettes Daily Hx Alcohol Use: Yes (BEER) Frequency of alcohol use: Daily Hx Substance Use: No Hx Substance Use Treatment: No Allergies/Home Meds Allergies/Adverse Reactions: Allergies No Known Allergies Allergy (Verified 06/05/17 11:14) Home Medications: Home Meds Medication Instructions Recorded Confirmed No Known Home Med 05/24/17 06/05/17 Review of Systems - Review of Systems Systems not reviewed;Unavailable: Intoxicated Physical Exam Vital Signs Reviewed: Yes Vital Signs Temp Pulse Resp BP Pulse Ox 06/05/17 13:15 100 H 18 120/78 98 06/05/17 11:16 98.6 F 111 H 20 118/78 100 Temperature: Afebrile Blood Pressure: Normal Pulse: Tachycardic Respiratory Rate: Normal Appearance: Positive for: Non-Toxic, Comfortable, Other (Intoxicated, disheveled male) Pain Distress: None Mental Status: No: Confused, Agitated, Lethargic - Systems Exam Head: Present: Atraumatic, Normocephalic Pupils: Present: PERRL Conjunctiva: Present: Normal Mouth: Present: Moist Mucous Membranes Pharnyx: Present: Normal. No: ERYTHEMA, EXUDATE Neck: Present: Normal Range of Motion Respiratory/Chest: Present: Clear to Auscultation, Good Air Exchange. No: Respiratory Distress, Accessory Muscle Use Cardiovascular: Present: Regular Rate and Rhythm, Normal S1, S2. No: Murmurs Abdomen: Present: Normal Bowel Sounds. No: Tenderness, Distention, Peritoneal Signs Back: Present: Normal Inspection Upper Extremity: Present: Normal Inspection, NORMAL PULSES, Other (2 stitches on left hand, wound is clean, dry and intact, new dressing applied ). No: Cyanosis, Edema Lower Extremity: Present: Normal Inspection, NORMAL PULSES. No: Edema Neurological: Present: GCS=15, CN II-XII Intact, Speech Normal Skin: Present: Warm, Dry, Normal Color, Abrasion (Multiple abrasions to right hand). No: Rashes Psychiatric: Present: Alert, Intoxicated. No: Agitated, Lethargic Medical Decision Making ED Course and Treatment: 06/05/17 11:44 Impression: A 47 year old male brought in for alcohol intoxication. Differential Diagnosis included but are not limited to: Alcohol intoxication Plan: -- Observe pending sobriety -- Reassess and disposition Prior Visits: Notes and results from previous visits were reviewed. Patient last seen in the ED on 06/04/17 for a laceration in left hand. Patient is well known to emergency room staff and has been seen on multiple occasions for alcohol intoxication. Progress Notes: 06/05/17 14:45 The patient is clinically sober at this time. Given the patient's family friend calling and saying patient expressed he wants to several days ago though not expressing suicidal ideation at this time, the case was discussed with PES, who saw the patient. PES confirmed that the patient is denying any SI at this time. Plan is to d/c. 06/05/17 14:51 Patient is fully sober at this time with clear speech and normal and steady gait - will d/c. - Scribe Statement The provider has reviewed the documentation as recorded by the Scribe Argenis Cazares Provider Scribe Attestation: All medical record entries made by the Scribe were at my direction and personally dictated by me. I have reviewed the chart and agree that the record accurately reflects my personal performance of the history, physical exam, medical decision making, and the department course for this patient. I have also personally directed, reviewed, and agree with the discharge instructions and disposition. Disposition/Present on Arrival - Present on Arrival Any Indicators Present on Arrival: No History of DVT/PE: No History of Uncontrolled Diabetes: No Urinary Catheter: No History of Decub. Ulcer: No History Surgical Site Infection Following: None - Disposition Have Diagnosis and Disposition been Completed?: Yes Diagnosis: Alcohol intoxication Disposition: HOME/ ROUTINE Disposition Time: 14:50 Patient Plan: Discharge Condition: GOOD Discharge Instructions (ExitCare): Abuse of Alcohol (ED) Additional Instructions: Stop alcohol use. Follow up with AA - recommend detox. Return to the emergency department if any new concerning symptoms. Referrals: Alcoholics Anonymous [Outside] - Follow up with primary [facility] [place] [Outside] - Follow up with primary
[2017-06-05 14:50] VITALS: BP 116/73; PULSE 99; RESP 16; O2SAT 97
== END 2017-06-05 15:24 | disposition home or self-care (01) ==
LOC: ED 11:09
DX: F10.129 Alcohol abuse with intoxication, unspecified (principal)

== ENCOUNTER 2017-06-10 15:44 | Inpatient (IN) | payer MEDICAID ==
[2017-06-10 15:52] VITALS: BMI 27.3
--- NOTE | 2017-06-10 16:13 | ED PDOC ---
Arrival/HPI - General Chief Complaint: Alcohol Ingestion Time Seen by Provider: 06/10/17 15:52 Historian: Patient - History of Present Illness Narrative History of Present Illness (Text): 06/10/17 16:09 47yr old male presents today with CP and abdominal pain. pt admits to have been drinking today. c/o chest pain located to left side of chest, non radiating. c/ o abdominal pain, burning with nausea and vomiting. states vomitus is yellow in color. denies trauma or injury. denies back pain. denies fever/chills. no medications taken. no other complaints. Time/Duration: Prior to Arrival Symptom Onset: Gradual Symptom Course: Worsening Quality: Aching, Stabbing, Burning Severity Level: 5 Past Medical History - Provider Review Nursing Documentation Reviewed: Yes - Travel History Have you recently traveled outside [place] w/in the past 3 mons?: No - Infectious Disease Hx of Infectious Diseases: None - Tetanus Immunization Tetanus Immunization: Up to Date - Reproductive Currently : No - Past Medical History Past Medical History: No Previous - Cardiac Hx Cardiac Disorders: Yes Hx Hypertension: Yes - Pulmonary Hx Respiratory Disorders: No Hx Tuberculosis: No - Neurological HX Cerebrovascular Accident: No - HEENT Hx HEENT Disorder: No - Renal Hx Renal Disorder: No - Endocrine/Metabolic Hx Endocrine Disorders: No - Hematological/Oncological Hx Blood Disorders: No Hx Cancer: No - Integumentary Hx Dermatological Disorder: No - Musculoskeletal/Rheumatological Hx Falls: Yes - Gastrointestinal Hx Gastrointestinal Disorders: Yes (GASTRITIS,H/O GI BLEED,FATTY LIVER) Hx Pancreatitis: Yes - Genitourinary/Gynecological Hx Genitourinary Disorders: No Hx Sexually Transmitted Diseases: No - Psychiatric Hx Psychophysiologic Disorder: Yes (DEPRESSION,HOMELESSNESS,SMOKES CIGARETTES 7 TO 1/2 PPD) Hx Depression: Yes Hx Substance Use: No Other/Comment: ETOH - Past Surgical History Past Surgical History: No Previous - Anesthesia Hx Anesthesia: Yes Hx Anesthesia Reactions: No Hx Malignant Hyperthermia: No - Suicidal Assessment Feels Threatened In Home Enviroment: No Family/Social History Family/Social History: Unknown Family HX Smoking Status: Heavy Smoker > 10 Cigarettes Daily Hx Alcohol Use: Yes (BEER) Hx Substance Use: No Hx Substance Use Treatment: No Allergies/Home Meds Allergies/Adverse Reactions: Allergies No Known Allergies Allergy (Verified 06/05/17 11:14) Home Medications: Home Meds Medication Instructions Recorded Confirmed No Known Home Med 05/24/17 06/10/17 Review of Systems - Review of Systems Constitutional: absent: Fatigue, Fevers Respiratory: absent: SOB, Cough Cardiovascular: Chest Pain. absent: Palpitations Gastrointestinal: Abdominal Pain, Nausea, Vomiting Genitourinary Male: absent: Dysuria Musculoskeletal: absent: Arthralgias Skin: absent: Rash, Pruritis Neurological: absent: Headache, Dizziness Physical Exam Vital Signs Reviewed: Yes Vital Signs Temp Pulse Resp BP Pulse Ox 06/10/17 16:37 97.4 F L 77 18 122/90 99 06/10/17 16:05 97.9 F 92 H 19 122/90 99 Temperature: Afebrile Blood Pressure: Normal Pulse: Regular Respiratory Rate: Normal Appearance: Positive for: Well-Appearing, Non-Toxic, Comfortable Pain Distress: None Mental Status: Positive for: Alert and Oriented X 3 Finger Stick Blood Glucose: 109 - Systems Exam Head: Present: Atraumatic Mouth: Present: Moist Mucous Membranes Neck: Present: Normal Range of Motion. No: Meningeal Signs Respiratory/Chest: Present: Clear to Auscultation, Good Air Exchange. No: Respiratory Distress, Accessory Muscle Use, Tender to Palpation Cardiovascular: Present: Regular Rate and Rhythm Abdomen: Present: Tenderness (luq tenderness, epigastric tenderness, lower abdominal tenderness), Normal Bowel Sounds, Guarding. No: Distention, Peritoneal Signs, Rebound Rectal: Present: Normal Rectal Tone. No: Occult Blood, Rectal Tenderness, Gross Blood, Melena, Hemorrhoids Back: Present: Normal Inspection. No: CVA Tenderness, Midline Tenderness, Paraspinal Tenderness Upper Extremity: Present: Normal ROM Lower Extremity: Present: Normal ROM Neurological: Present: GCS=15, Speech Normal Skin: Present: Warm, Dry, Rashes, Normal Color Psychiatric: Present: Alert, Oriented x 3 Medical Decision Making ED Course and Treatment: 06/10/17 16:15 pt with chest pain and abdominal pain, nausea/vomiting; cbc; wnl cmp; elevated lfts/total bili trop: wnl ekg; sinus rhythm with 1st degree AV block cxr:wnl CT; EXAM: CT Abdomen and Pelvis Without Intravenous Contrast CLINICAL HISTORY: 47 years old, male; Pain; Abdominal pain; Generalized TECHNIQUE: Axial computed tomography images of the abdomen and pelvis without intravenous contrast. This CT exam was performed using one or more of the following dose reduction techniques: automated exposure control, adjustment of the mA and/or kV according to patient size, and/ or use of iterative reconstruction technique. Coronal and sagittal reformatted images were created and reviewed. COMPARISON: CT - ABD PELVIS PO IV CONTRAST 01/29/2017 1:27:06 PM FINDINGS: Lower thorax: No acute findings. ABDOMEN: Liver: Enlarged. Fatty infiltration. Gallbladder and bile ducts: Gallbladder distention. No calcified gallstones. Dilated common bile duct, up to 1.1 cm, similar to previous examination. Pancreas: Unremarkable. No ductal dilation. Spleen: No splenomegaly. Adrenals: No mass. Kidneys and ureters: No renal calculi. No hydronephrosis. Stomach and bowel: No definite mural thickening. No obstruction. Appendix: Normal caliber. No inflammation. PELVIS: Bladder: Unremarkable. No stones. Reproductive: Unremarkable as visualized. ABDOMEN and PELVIS: Intraperitoneal space: No significant fluid collection. No free air. Bones/joints: No acute fracture. Soft tissues: Unremarkable. Vasculature: Mild atherosclerotic disease of aorta. No aneurysm. Lymph nodes: No pathologically enlarged lymph nodes. IMPRESSION: 1. Gallbladder distention with dilated common bile duct. Suggest ultrasound. 2. Hepatic steatosis. 3. Incidental/non-acute findings are described above. pt reassessment; feeling better. still with cp and abdominal pain. although resting comfortably in er. + epigastric tenderness. heme negative stools. will given dose of rocephin IV. case discussed with Dr. fair will Admit observational status to remote Tele for chest pain and abdominal pain with gb distention and dilated common bile duct and elevated lfts. all aspects of this case were discussed the attending of record. impression; chest pain, abdominal pain, nausea/vomiting, dilated common bile duct, elevated lfts. Admit observational status to remote tele; - Lab Interpretations Lab Results: 06/10/17 16:55 06/10/17 16:55 Lab Results 06/10/17 16:55: WBC 8.1, RBC 3.71, Hgb 13.1 L, Hct 35.3 L, MCV 95.1, MCH 35.3 H , MCHC 37.1 H, RDW 12.8, Plt Count 68 L, MPV 11.0, Gran % 58.6, Lymph % (Auto) 33.4, [place] % (Auto) 6.7 H, Eos % (Auto) 0.9 L, Baso % (Auto) 0.4, Gran # 4.73, Lymph # 2.7, [place] # 0.5, Eos # 0.1, Baso # 0.03 06/10/17 16:55: Urine Color Light yellow, Urine Appearance Clear, Urine pH 6.5, Ur Specific [place] <= 1.005, Urine Protein Negative, Urine Glucose (UA) Negative, Urine Ketones Negative, Urine Blood Negative, Urine Nitrate Negative, Urine Bilirubin Negative, Urine Urobilinogen 0.2, Ur Leukocyte Esterase Negative 06/10/17 16:55: PT 11.5, INR 1.06, APTT 28.4 06/10/17 16:55: Urine Opiates Screen Negative, Urine Methadone Screen Negative, Ur Barbiturates Screen Negative, Ur Phencyclidine Scrn Negative, Ur Amphetamines Screen Negative, U Benzodiazepines Scrn Negative, U Oth Cocaine Metabols Negative, U Cannabinoids Screen Negative 06/10/17 16:55: Sodium 133, Potassium 3.3 L, Chloride 93 L, Carbon Dioxide 24, Anion Gap 19, BUN 3 L, Creatinine 0.4 L, Est GFR ( Amer) > 60, Est GFR ( Non-Af Amer) > 60, Random Glucose 87, Calcium 9.3, Total Bilirubin 1.8 H, AST 381 H, ALT 108 H, Alkaline Phosphatase 266 H, Lactate Dehydrogenase 863 H, Total Creatine Kinase 291 H, CK-MB (CK-2) 3.8 H, CK-MB (CK-2) % Cancelled, Troponin I < 0.01, Total Protein 9.4 H, Albumin 4.7, Globulin 4.7, Albumin/ Globulin Ratio 1.0 L, Lipase 175 06/10/17 15:50: POC Glucose (mg/dL) 109 - RAD Interpretation Radiology Orders: 06/10/17 16:06 CHEST PORTABLE [RAD] Stat 06/10/17 20:17 ABD & PELVIS W/O PO OR IV CONT [CT] Stat - Medication Orders Current Medication Orders: Heparin Sodium (Porcine) (Heparin) 5,000 units SC Q8 VÍCTOR PRN Reason: Protocol Sodium Chloride (Sodium Chloride 0.9%) 1,000 mls @ 150 mls/hr IV .Q6H40M VÍCTOR Ampicillin Sodium/Sulbactam (Sodium 3 gm/ Sodium Chloride) 100 mls @ 200 mls/ hr IVPB Q6 VÍCTOR PRN Reason: Protocol Lorazepam (Ativan) 1 mg IVP Q4 PRN; Protocol PRN Reason: Symptoms of alcohol withdrawl Morphine Sulfate (Morphine) 2 mg IVP Q4H PRN PRN Reason: Pain, moderate (4-7) Ondansetron HCl (Zofran Inj) 4 mg IVP Q6H PRN PRN Reason: Nausea/Vomiting Pantoprazole Sodium (Protonix Inj) 40 mg IVP DAILY VÍCTOR Discontinued Medications Sodium Chloride (Sodium Chloride 0.9%) 1,000 mls @ 999 mls/hr IV .Q1H1M STA Stop: 06/10/17 19:01 Last Admin: 06/10/17 19:04 Dose: 999 mls/hr Ceftriaxone Sodium (Rocephin 1 Gram Ivpb) 1 gm in 100 mls @ 200 mls/hr IVPB STAT STA PRN Reason: Protocol Stop: 06/11/17 00:55 Last Admin: 06/11/17 01:05 Dose: 200 mls/hr Pantoprazole Sodium (Protonix Inj) 40 mg IVP STAT STA Stop: 06/10/17 23:40 Last Admin: 06/11/17 00:38 Dose: 40 mg Potassium Chloride (K-Dur 20 Meq Er Tab) 40 meq PO STAT STA Stop: 06/10/17 18:02 Last Admin: 06/10/17 19:03 Dose: 40 meq Disposition/Present on Arrival - Present on Arrival Any Indicators Present on Arrival: No History of DVT/PE: No History of Uncontrolled Diabetes: No Urinary Catheter: No History of Decub. Ulcer: No History Surgical Site Infection Following: None - Disposition Have Diagnosis and Disposition been Completed?: Yes Diagnosis: Chest pain, Abdominal pain, Elevated LFTs, Common bile duct dilation Disposition: HOSPITALIZED Disposition Time: 00:05 Patient Plan: Observation Condition: FAIR
[2017-06-10 17:08] LABS: PH,URINE 6.5 (4.7-8.0); URINE BILIRUBIN NEGATIVE (NEGATIVE); URINE BLOOD NEGATIVE (NEGATIVE); URINE GLUCOSE (UA) NEGATIVE (NEGATIVE); URINE LEUKOCYTE ESTERASE NEGATIVE Leu/uL (NEGATIVE); URINE NITRATE NEGATIVE (NEGATIVE); URINE PROTEIN NEGATIVE mg/dL (<30 mg/dL); URINE UROBILINOGEN 0.2 E.U./dL (<1 E.U./dL)
[2017-06-10 17:09] LABS: BASO # 0.03 K/mm3 (0.0-2.0); BASO % 0.4 % (0.0-3.0); EOS # 0.1 (0.0-0.7); EOS % 0.9 % (1.5-5.0); GRAN # 4.73 (1.4-6.5); GRAN % 58.6 % (50.0-68.0); HEMOGLOBIN 13.1 gm/dL (14.0-18.0); LYMPH # 2.7 (1.2-3.4); LYMPH % 33.4 % (22.0-35.0); MEAN CELL VOLUME 95.1 fL (80.0-105.0); MEAN CORPUSCULAR HEMOGLOBIN 35.3 pg (25.0-35.0); MEAN CORPUSCULAR HGB CONC 37.1 g/dl (31.0-37.0); MONO # 0.5 (0.1-0.6); MONO % 6.7 % (1.0-6.0); PLATELET COUNT 68 10^3/uL (120.0-450.0); RBC 3.71 10^6/uL (3.5-6.1); RED CELL DISTRIBUTION WIDTH 12.8 % (11.5-14.5); URINE APPEARANCE CLEAR (CLEAR); URINE COLOR LIGHT YELLOW (YELLOW); WHITE BLOOD COUNT 8.1 10^3/ul (4.5-11.0)
[2017-06-10 17:20] LABS: ALBUMIN 4.7 g/dL (3.0-4.8); ALT/SGPT 108 U/L (7-56); AST/SGOT 381 U/L (15-59); BLOOD UREA NITROGEN 3 mg/dL (7-21); CALCIUM 9.3 mg/dL (8.4-10.5); GFR AFRICAN-AMERICAN > 60; GFR NON-AFRICAN AMERICAN > 60; LIPASE 175 U/L (23-300)
[2017-06-10 17:24] LABS: INR 1.06 (0.93-1.08); PARTIAL THROMBOPLASTIN TIME 28.4 Seconds (23.7-30.8); PROTHROMBIN TIME 11.5 Seconds (9.9-11.8)
[2017-06-10 17:28] LABS: BARBITURATES, UR NEGATIVE (NEGATIVE); BENZODIAZEPINES, UR NEGATIVE (NEGATIVE); OPIATES, UR NEGATIVE (NEGATIVE); PHENCYCLIDINE, UR NEGATIVE (NEGATIVE)
[2017-06-10 17:35] LABS: CK-MB 3.8 ng/mL (0.0-3.6)
[2017-06-10 17:38] LABS: TROPONIN I < 0.01 ng/mL
[2017-06-10] MEDS ORDERED: Potassium Chloride 20 mEq ER Tab PO STA (18:01)
[2017-06-10] MEDS ORDERED: Sodium Chloride 0.9% 1,000 ML IV STA (18:01)
--- NOTE | 2017-06-10 20:47 | CARD ---
APPROVED REPORT EKG Measurement Heart [id number] <Conclusion> Sinus rhythm with 1st degree AV block Possible Left atrial enlargement Cannot rule out Anterior infarct, age undetermined Abnormal ECG
--- NOTE | 2017-06-10 23:59 | CT ---
EXAM: CT Abdomen and Pelvis Without Intravenous Contrast CLINICAL HISTORY: 47 years old, male; Pain; Abdominal pain; Generalized TECHNIQUE: Axial computed tomography images of the abdomen and pelvis without intravenous contrast. This CT exam was performed using one or more of the following dose reduction techniques: automated exposure control, adjustment of the mA and/or kV according to patient size, and/or use of iterative reconstruction technique. Coronal and sagittal reformatted images were created and reviewed. COMPARISON: CT - ABD PELVIS PO IV CONTRAST 01/29/2017 1:27:06 PM FINDINGS: Lower thorax: No acute findings. ABDOMEN: Liver: Enlarged. Fatty infiltration. Gallbladder and bile ducts: Gallbladder distention. No calcified gallstones. Dilated common bile duct, up to 1.1 cm, similar to previous examination. Pancreas: Unremarkable. No ductal dilation. Spleen: No splenomegaly. Adrenals: No mass. Kidneys and ureters: No renal calculi. No hydronephrosis. Stomach and bowel: No definite mural thickening. No obstruction. Appendix: Normal caliber. No inflammation. PELVIS: Bladder: Unremarkable. No stones. Reproductive: Unremarkable as visualized. ABDOMEN and PELVIS: Intraperitoneal space: No significant fluid collection. No free air. Bones/joints: No acute fracture. Soft tissues: Unremarkable. Vasculature: Mild atherosclerotic disease of aorta. No aneurysm. Lymph nodes: No pathologically enlarged lymph nodes. IMPRESSION: 1. Gallbladder distention with dilated common bile duct. Suggest ultrasound. 2. Hepatic steatosis. 3. Incidental/non-acute findings are described above.
[2017-06-11] MEDS ORDERED: cefTRIAXone 1 gm 1 GM/100 ML BAG IVPB STA (00:26)
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
[2017-06-11] MEDS ORDERED: Morphine 2 mg/ml ISec IVP PRN (01:10)
[2017-06-11] MEDS ORDERED: Sodium Chloride 0.9% 1,000 ML IV SCH (01:15)
[2017-06-11 02:36] LABS: LIPASE 120 U/L (23-300)
[2017-06-11 03:10] LABS: TROPONIN I < 0.01 ng/mL
[2017-06-11] MEDS: Ampicillin/Sulbactam 3 GM in Sodium Chloride 0.9% 100 ML IVPB SCH ×3 (05:14→17:55)
[2017-06-11 06:27] LABS: BASO # 0.04 K/mm3 (0.0-2.0); BASO % 0.8 % (0.0-3.0); EOS # 0.1 (0.0-0.7); EOS % 2.5 % (1.5-5.0); GRAN # 3.07 (1.4-6.5); GRAN % 64.3 % (50.0-68.0); HEMOGLOBIN 11.4 gm/dL (14.0-18.0); LYMPH # 1.2 (1.2-3.4); LYMPH % 25.7 % (22.0-35.0); MEAN CELL VOLUME 96.4 fL (80.0-105.0); MEAN CORPUSCULAR HEMOGLOBIN 33.9 pg (25.0-35.0); MEAN CORPUSCULAR HGB CONC 35.2 g/dl (31.0-37.0); MEAN PLATELET VOLUME 11.1 fl (7.0-11.0); MONO # 0.3 (0.1-0.6); MONO % 6.7 % (1.0-6.0); PLATELET COUNT 65 10^3/uL (120.0-450.0); RBC 3.36 10^6/uL (3.5-6.1); WHITE BLOOD COUNT 4.8 10^3/ul (4.5-11.0)
[2017-06-11 06:38] LABS: ALT/SGPT 88 U/L (7-56); AST/SGOT 278 U/L (15-59); BLOOD UREA NITROGEN 3 mg/dL (7-21); CALCIUM 8.8 mg/dL (8.4-10.5); GFR AFRICAN-AMERICAN > 60; GFR NON-AFRICAN AMERICAN > 60; MAGNESIUM 1.3 mg/dL (1.7-2.2)
[2017-06-11] MEDS ORDERED: Multivitamin (MVI) 10 ML, Thiamine 100 MG, Folic Acid 1 MG in Sodium Chloride 0.9% 1,00... IV ONE (06:58)
[2017-06-11] MEDS ORDERED: Magnesium Sulfate 2 GM in Sodium Chloride 0.9% 100 ML IVPB ONE (07:01)
--- NOTE | 2017-06-11 07:43 | RAD ---
HISTORY: chest pain COMPARISON: 05/31/2017. FINDINGS: LUNGS: The lungs are well inflated and clear. PLEURA: No significant pleural effusion identified, no pneumothorax apparent. CARDIOVASCULAR: Normal. OSSEOUS STRUCTURES: No significant abnormalities. VISUALIZED UPPER ABDOMEN: Normal. OTHER FINDINGS: None. IMPRESSION: No active pulmonary disease.
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
[2017-06-11 08:43] LABS: % IRON SATURATION 110 % (20-55); IRON 362 ug/dL (45-180); TOTAL IRON BINDING CAPACITY 329 ug/dL (261-462)
--- NOTE | 2017-06-11 08:46 | US ---
HISTORY: Abdominal pain COMPARISON: CT abdomen and pelvis from 06/10/2017 TECHNIQUE: Sonographic evaluation of the abdomen. FINDINGS: LIVER: Measures 19.6 cm. There is diffuse increased echogenicity of the liver parenchyma. No mass. No intrahepatic bile duct dilatation. GALLBLADDER: The gallbladder is distended and there is layering sludge without evidence of gallstones or wall thickening. There is mild pericholecystic fluid. The sonographic Cuellar's sign is negative. COMMON BILE DUCT: There is diffuse dilatation of the common bile duct which measures 1.1 cm. PANCREAS: Unremarkable as visualized. No mass. No ductal dilatation. RIGHT KIDNEY: Measures 9.5cm. Normal echogenicity. No calculus, mass, or hydronephrosis. LEFT KIDNEY: Measures 10.4cm. Normal echogenicity. No calculus, mass, or hydronephrosis. SPLEEN: Normal in size and contour. No mass. AORTA: No aneurysmal dilatation. IVC: Unremarkable. OTHER FINDINGS: None. IMPRESSION: Distended gallbladder and mild pericholecystic fluid without evidence of cholelithiasis or positive sonographic Cuellar's sign. Acalculous cholecystitis cannot be excluded in the appropriate clinical setting. Clinical follow-up is advised. Mild diffuse dilatation of the common bile duct.
[2017-06-11] MEDS ORDERED: Gadodiamide 287 MG/ML VIAL (15ML) IV ONE (10:29)
[2017-06-11 12:51] LABS: FOLATE 7.7 ng/mL
--- NOTE | 2017-06-11 13:37 | MRI ---
PROCEDURE: Magnetic Resonance Cholangiopancreatography HISTORY: Dilated CBD COMPARISON: None available. TECHNIQUE: Multiplanar, multisequence MR images of the abdomen were obtained, including heavily T2 weighted MRCP images of the biliary system. Rotating maximum intensity projection images of the biliary system were generated. 15 cc of Omniscan were injected FINDINGS: MRCP: The common duct is dilated with a maximal diameter of 11 mm. There is no evidence of an obstructing stone or mass. The distal common duct has a blunted appearance. LIVER: Unremarkable. GALLBLADDER: Mildly distended. No visible stones SPLEEN: Unremarkable. PANCREAS: The pancreatic duct appears to cross in front of the common duct as seen on axial image 10 series 5 and coronal image 7 series 11. Findings are consistent with a pancreatic divisum ADRENALS: Unremarkable. KIDNEYS: Unremarkable. AORTA: No aneurysm. ASCITES: None. OTHER FINDINGS: None. IMPRESSION: Dilated common duct measuring 11 mm with no evidence of distal stone or obstruction. The pancreatic duct crosses anterior to the common duct consistent with a pancreatic divisum variation
--- NOTE | 2017-06-11 16:36 | CARD ---
APPROVED REPORT EKG Measurement Heart [id number] <Conclusion> Normal sinus rhythm Normal ECG
[2017-06-12] MEDS: Ampicillin/Sulbactam 3 GM in Sodium Chloride 0.9% 100 ML IVPB SCH ×4 (06:14→17:17)
[2017-06-12] MEDS ORDERED: Multivitamin (MVI) 10 ML, Thiamine 100 MG, Folic Acid 1 MG in Sodium Chloride 0.9% 1,00... IV ONE (06:29)
[2017-06-12 07:06] LABS: BASO # 0.01 K/mm3 (0.0-2.0); BASO % 0.2 % (0.0-3.0); EOS # 0.1 (0.0-0.7); EOS % 2.1 % (1.5-5.0); GRAN # 2.96 (1.4-6.5); GRAN % 62.9 % (50.0-68.0); HEMOGLOBIN 11.7 gm/dL (14.0-18.0); LYMPH # 1.2 (1.2-3.4); LYMPH % 25.9 % (22.0-35.0); MEAN CELL VOLUME 98.3 fL (80.0-105.0); MEAN CORPUSCULAR HEMOGLOBIN 33.9 pg (25.0-35.0); MEAN CORPUSCULAR HGB CONC 34.5 g/dl (31.0-37.0); MEAN PLATELET VOLUME 11.3 fl (7.0-11.0); MONO # 0.4 (0.1-0.6); MONO % 8.9 % (1.0-6.0); PLATELET COUNT 58 10^3/uL (120.0-450.0); RBC 3.45 10^6/uL (3.5-6.1); WHITE BLOOD COUNT 4.7 10^3/ul (4.5-11.0)
[2017-06-12 07:10] LABS: ALBUMIN 4.3 g/dL (3.0-4.8); ALT/SGPT 98 U/L (7-56); AST/SGOT 289 U/L (15-59); BLOOD UREA NITROGEN 5 mg/dL (7-21); CALCIUM 9.5 mg/dL (8.4-10.5); GFR AFRICAN-AMERICAN > 60; GFR NON-AFRICAN AMERICAN > 60; MAGNESIUM 1.6 mg/dL (1.7-2.2)
[2017-06-12] MEDS ORDERED: Magnesium Sulfate 2 GM in Sodium Chloride 0.9% 100 ML IVPB ONE (07:37)
[2017-06-12 08:07] LABS: INR 1.1 (0.93-1.08); PROTHROMBIN TIME 11.9 Seconds (9.9-11.8)
[2017-06-12 08:48] LABS: PARTIAL THROMBOPLASTIN TIME 30.4 Seconds (23.7-30.8)
--- NOTE | 2017-06-12 08:54 | CP.PCM.PN ---
<Carmen Momin - Last Filed: 06/12/17 12:00> Subjective - Date & Time of Evaluation Date of Evaluation: 06/12/17 Time of Evaluation: 07:30 - Subjective Subjective: PGY4 GI follow-up Pt seen and examined bedside No overnight events still NPO still has abd pain in the epigastric and LLQ, but improved since admission Denies any fever, chills, or diaphoresis + diarrhea, but denies any blood, mucus, or melena 12-point ROS was conducted was was neg other than what was mentioned above Objective - Vital Signs/Intake and Output Vital Signs (last 24 hours): Temp Pulse Resp BP Pulse Ox 97.9 F 84 20 145/96 H 95 06/12/17 07:45 06/12/17 07:45 06/12/17 07:45 06/12/17 07:45 06/12/17 07:45 Intake and Output: 06/12/17 06/12/17 06:59 18:59 Intake Total 0 300 Output Total 1200 Balance -1200 300 - Medications Medications: Current Medications Heparin Sodium (Porcine) (Heparin) 5,000 units SC Q8 [facility] PRN Reason: Protocol Last Admin: 06/12/17 06:17 Dose: 5,000 units Ampicillin Sodium/Sulbactam (Sodium 3 gm/ Sodium Chloride) 100 mls @ 200 mls/ hr IVPB Q6 [facility] PRN Reason: Protocol Last Admin: 06/12/17 06:16 Dose: 200 mls/hr Multivitamins/Vitamin C 10 ml/Thiamine HCl 100 mg/ Folic Acid 1 mg/ Sodium Chloride 1,011.2 mls @ 100 mls/hr IV .Q10H7M ONE Stop: 06/12/17 16:35 Last Admin: 06/12/17 07:58 Dose: 100 mls/hr Potassium Chloride (Potassium Chloride 20 Meq/100 Ml) 20 meq in 100 mls @ 50 mls/hr IVPB ONCE ONE Stop: 06/12/17 09:36 Lorazepam (Ativan) 2 mg IVP Q4 PRN; Protocol PRN Reason: Symptoms of alcohol withdrawl Last Admin: 06/11/17 21:36 Dose: 2 mg Morphine Sulfate (Morphine) 2 mg IVP Q4H PRN PRN Reason: Pain, moderate (4-7) Ondansetron HCl (Zofran Inj) 4 mg IVP Q6H PRN PRN Reason: Nausea/Vomiting Pantoprazole Sodium (Protonix Inj) 40 mg IVP DAILY [facility] Last Admin: 06/11/17 09:12 Dose: 40 mg - Labs Labs: 06/12/17 06:00 06/12/17 06:00 PT 11.9 Seconds (9.9-11.8) H 06/12/17 07:30 INR 1.10 (0.93-1.08) H 06/12/17 07:30 APTT 28.4 Seconds (23.7-30.8) 06/10/17 16:55 - Constitutional Appears: Well, No Acute Distress - Head Exam Head Exam: ATRAUMATIC, NORMOCEPHALIC - Eye Exam Eye Exam: Normal appearance - ENT Exam ENT Exam: Mucous Membranes Moist, Normal Exam - Respiratory Exam Respiratory Exam: Clear to Ausculation Bilateral, NORMAL BREATHING PATTERN. absent: Rales, Rhonchi, Wheezes, Respiratory Distress - Cardiovascular Exam Cardiovascular Exam: REGULAR RHYTHM, +S1, +S2 - GI/Abdominal Exam GI & Abdominal Exam: Soft, Tenderness, Hyperactive Bowel Sounds, Organomegaly. absent: Guarding, Rigid - Extremities Exam Extremities Exam: Full ROM. absent: Joint Swelling, Pedal Edema - Neurological Exam Neurological Exam: Alert, Awake, Oriented x3 - Psychiatric Exam Psychiatric exam: Agitated, Normal Affect - Skin Skin Exam: Dry, Intact, Normal Color, Warm Assessment and Plan - Assessment and Plan (Free Text) Assessment: Angelo Mccormick is a 47M w/ hx of etoh abuse, DM and gastritis who presented to the ED complaining of chest pain and abd pain. DDx: gastritis, PUD, dyspepsia, cardiac etiology. Pt also presents with transaminitis AST>ALT; likely etoh induced, Hep panel in March was neg. CBD was also found to be dilated on CT abd, no change from previous imaging. U/S Abd revealed no stones in the gallbladder, but some distention and mild wall thickening with some pericholic fluid Alcohol hepatitis -continue PPI -advance diet as tolerated -abstain from EtoH, d/w pt, does not want to attend rehab -worsening bilirubin, expected course of AH -transamenia likely 2/2 EtOH, SINCE AST>ALT 2:1 -Hep panel in March neg -No obvious cbd stone, though dilated duct, stable from previous CT scan, MRCP and ultrasound -EGD and colonoscopy once stable from cardiac point and not in withdrawal as an oupt -Recommend EUS as well to eval pancreas an r/o malig as oupt -We recommended to the pt he apply for [facility] [place] [facility] to facilitate outpt w/u, but pt refused -recommend transition social worker consult [facility] -unknown etiology -ddx: hemorrhoidal vs AVM vs diverticular vs malig -need screening colonoscopy as oupt Etoh withdrawl -imminent withdraw - recommend close monitoring and benzos Will sign off for now. If additional help is needed, please contact us D/W [facility]. Perdue <[facility] - Last Filed: 06/12/17 14:29> Objective - Vital Signs/Intake and Output Vital Signs (last 24 hours): Temp Pulse Resp BP Pulse Ox 97.9 F 120 H 20 145/96 H 95 06/12/17 07:45 06/12/17 10:00 06/12/17 07:45 06/12/17 07:45 06/12/17 07:45 Intake and Output: 06/12/17 06/12/17 06:59 18:59 Intake Total 360 Output Total 300 Balance 60 - Medications Medications: Current Medications Heparin Sodium (Porcine) (Heparin) 5,000 units SC Q8 [facility] PRN Reason: Protocol Last Admin: 06/12/17 06:17 Dose: 5,000 units Ampicillin Sodium/Sulbactam (Sodium 3 gm/ Sodium Chloride) 100 mls @ 200 mls/ hr IVPB Q6 [facility] PRN Reason: Protocol Last Admin: 06/12/17 12:17 Dose: 200 mls/hr Multivitamins/Vitamin C 10 ml/Thiamine HCl 100 mg/ Folic Acid 1 mg/ Sodium Chloride 1,011.2 mls @ 100 mls/hr IV .Q10H7M ONE Stop: 06/12/17 16:35 Last Admin: 06/12/17 07:58 Dose: 100 mls/hr Lorazepam (Ativan) 2 mg IVP Q4 PRN; Protocol PRN Reason: Symptoms of alcohol withdrawl Last Admin: 06/11/17 21:36 Dose: 2 mg Morphine Sulfate (Morphine) 2 mg IVP Q4H PRN PRN Reason: Pain, moderate (4-7) Ondansetron HCl (Zofran Inj) 4 mg IVP Q6H PRN PRN Reason: Nausea/Vomiting Pantoprazole Sodium (Protonix Inj) 40 mg IVP DAILY [facility] Last Admin: 06/12/17 09:00 Dose: 40 mg - Labs Labs: PT 11.9 Seconds (9.9-11.8) H 06/12/17 07:30 INR 1.10 (0.93-1.08) H 06/12/17 07:30 APTT 30.4 Seconds (23.7-30.8) 06/12/17 07:30 Attending/Attestation - Attestation I have personally seen and examined this patient.: Yes I have fully participated in the care of the patient.: Yes I have reviewed all pertinent clinical information, including history, physical exam and plan: Yes Notes (Text): 06/12/17 14:27 Patient seen with GI fellow on rounds. This is a 47 year old male with previous admissions for similar complains, homeless, no outpatient follow up nor alcohol rehabs, with h/o etoh abuse, DM who presents with abdominal pain, elevated LFTs in the setting of ongoing etoh abuse. Concerning is CBD dilatation with no gallstones but history of CCY. Recommend PPI and alcohol cessation. Diet as tolerated. Outpatient EGD/ colonoscopy and EUS. Thnak you for letting us participate in the care of your patient
[2017-06-12] MEDS ORDERED: Vancomycin 1gm in NS 250ml 1 GM/250 ML BAG IVPB SCH (10:00)
[2017-06-12] MEDS ORDERED: Vancomycin 1gm in NS 250ml 1 GM/250 ML BAG IVPB STA (14:55)
[2017-06-12] MEDS: Vancomycin 1gm in NS 250ml 1 GM/250 ML BAG IVPB SCH (16:56)
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
--- NOTE | 2017-06-12 17:58 | CP.PCM.PN ---
<KishoreGeorges - Last Filed: 06/12/17 18:04> Subjective - Date & Time of Evaluation Date of Evaluation: 06/12/17 Time of Evaluation: 09:25 - Subjective Subjective: Pt s/e at bedside. Pt still complaining of CP and abdominal pain. Blood cultures were positive, ID c/s: added vanc. GI has signed out and told patient to follow up o/p for colonoscopy and EGD. CP workup has been negative. No further complaints. Objective - Vital Signs/Intake and Output Vital Signs (last 24 hours): Temp Pulse Resp BP Pulse Ox 99.7 F H 92 H 20 155/106 H 97 06/12/17 17:11 06/12/17 16:06 06/12/17 16:06 06/12/17 16:06 06/12/17 16:06 Intake and Output: 06/12/17 06/12/17 06:59 18:59 Intake Total 360 Output Total 300 Balance 60 - Medications Medications: Current Medications Ampicillin Sodium/Sulbactam (Sodium 3 gm/ Sodium Chloride) 100 mls @ 200 mls/ hr IVPB Q6 [facility] PRN Reason: Protocol Last Admin: 06/12/17 17:17 Dose: 200 mls/hr Vancomycin HCl (Vancomycin 1gm) 1 gm in 250 mls @ 167 mls/hr IVPB Q12H [facility] PRN Reason: Protocol Last Admin: 06/12/17 16:56 Dose: Not Given Lorazepam (Ativan) 2 mg IVP Q4 PRN; Protocol PRN Reason: Symptoms of alcohol withdrawl Last Admin: 06/12/17 16:57 Dose: 2 mg Morphine Sulfate (Morphine) 2 mg IVP Q4H PRN PRN Reason: Pain, moderate (4-7) Ondansetron HCl (Zofran Inj) 4 mg IVP Q6H PRN PRN Reason: Nausea/Vomiting Pantoprazole Sodium (Protonix Inj) 40 mg IVP DAILY ON [facility] OF [facility] Last Admin: 06/12/17 09:00 Dose: 40 mg - Labs Labs: PT 11.9 Seconds (9.9-11.8) H 06/12/17 07:30 INR 1.10 (0.93-1.08) H 06/12/17 07:30 APTT 30.4 Seconds (23.7-30.8) 06/12/17 07:30 - Constitutional Appears: Unkempt - Head Exam Head Exam: ATRAUMATIC, NORMAL INSPECTION, NORMOCEPHALIC - Eye Exam Eye Exam: EOMI, Normal appearance, PERRL Pupil Exam: NORMAL ACCOMODATION, PERRL - ENT Exam ENT Exam: Mucous Membranes Moist - Neck Exam Neck Exam: Normal Inspection - Respiratory Exam Respiratory Exam: Clear to Ausculation Bilateral, NORMAL BREATHING PATTERN - Cardiovascular Exam Cardiovascular Exam: REGULAR RHYTHM, +S1, +S2 - GI/Abdominal Exam GI & Abdominal Exam: Tenderness, Normal Bowel Sounds - Rectal Exam Rectal Exam: Deferred - Extremities Exam Extremities Exam: Full ROM, Normal Capillary Refill, Normal Inspection - Back Exam Back Exam: NORMAL INSPECTION - Neurological Exam Neurological Exam: Alert, Awake, CN II-XII Intact, Normal Gait, Oriented x3 Additional comments: [employer] Assessment and Plan - Assessment and Plan (Free Text) Assessment: Patient is a 47 year old male with PMHx of alcohol abuse, hypertension, questionable DM, and gastritis who is being admitted for evaluation and treatment of abdominal pain and chest pain. 1. Abdominal Pain; Nausea; Transminitis, Hyperbilirubinemia - NPO - CT reviewed: 1. Gallbladder distention with dilated common bile duct. 2. Hepatic steatosis. - MRCP - Abdominal U/S - GI consult: signed off - unasyn - lipase - morphine PRN - zofran PRN 2. Chest pain - troponins stat and trended: negative - EKG in Ed reviewed- sinus rhythm with 1st degree AV block 3. Positive blood cultures - ID on c/s. Vanc added to regimen - May need echocardiogram to r/o endocarditis 4. ETOH Abuse, details- last drink was yesterday but cannot specifiy time - CIWA - ativan 1mg q4 prn withdrawl symptoms - serum ETOH level 5. History of HTN - patient normotensive in ED - continue to monitor without hypertensive medications as he does not take any outpatient 6. Diabetes Mellittus - HbA1c - patient glucose WNL - continue to monitor without diabetic medications as he does not take any outpatient 7. Anemia, Thrombocytopenia - Hgb/Hct at baseline - monitor closely via daily CBC - fecal occult blood test 8. Hypokalemia - replete - monitor closely via daily CMP 9. Dysuria - UA clean - urine culture 10. PPX - subq heparin - protonix <Priyank Hare MD - Last Filed: 06/13/17 12:32> Objective - Vital Signs/Intake and Output Vital Signs (last 24 hours): Temp Pulse Resp BP Pulse Ox 99 F 89 20 147/87 99 06/13/17 08:31 06/13/17 08:31 06/13/17 08:31 06/13/17 08:31 06/13/17 08:31 Intake and Output: 06/13/17 06/13/17 06:59 18:59 Intake Total 540 0 Balance 540 0 - Medications Medications: Current Medications Folic Acid (Folic Acid) 1 mg PO DAILY ON [facility] OF [facility] Last Admin: 06/13/17 11:15 Dose: 1 mg Vancomycin HCl (Vancomycin 1gm) 1 gm in 250 mls @ 167 mls/hr IVPB Q12H [facility] PRN Reason: Protocol Last Admin: 06/13/17 05:38 Dose: 167 mls/hr Lorazepam (Ativan) 2 mg IVP Q4 PRN; Protocol PRN Reason: Symptoms of alcohol withdrawl Last Admin: 06/12/17 16:57 Dose: 2 mg Morphine Sulfate (Morphine) 2 mg IVP Q4H PRN PRN Reason: Pain, moderate (4-7) Ondansetron HCl (Zofran Inj) 4 mg IVP Q6H PRN PRN Reason: Nausea/Vomiting Pantoprazole Sodium (Protonix Inj) 40 mg IVP DAILY ON [facility] OF [facility] Last Admin: 06/13/17 11:15 Dose: 40 mg Thiamine HCl (Vitamin B1 Tab) 50 mg PO DAILY ON [facility] OF [facility] Last Admin: 06/13/17 11:15 Dose: 50 mg - Labs Labs: 06/13/17 06:30 06/13/17 06:30 PT 11.9 Seconds (9.9-11.8) H 06/12/17 07:30 INR 1.10 (0.93-1.08) H 06/12/17 07:30 APTT 30.4 Seconds (23.7-30.8) 06/12/17 07:30 Attending/Attestation - Attestation I have personally seen and examined this patient.: Yes I have fully participated in the care of the patient.: Yes I have reviewed all pertinent clinical information, including history, physical exam and plan: Yes Notes (Text): 06/13/17 12:29 Patient was seen and examined with electromedical service engineer. Patient abdominal pain is better. has chronic right upper quadrant pain due to enlarged liver.LFT are stable, tolerating diet.Alcohol withdrawal are improving. Patient blood cultures from ER growing gram positive cocci in cluster on IV Vancomycin, we will follow up cultures.Repeat blood cultures are drawn. Issue of ongoing alcohol abuse was discussed in detail with him. Prognosis is guarded.
[2017-06-13] MEDS: Ampicillin/Sulbactam 3 GM in Sodium Chloride 0.9% 100 ML IVPB SCH ×2 (00:36→05:15)
[2017-06-13] MEDS: Vancomycin 1gm in NS 250ml 1 GM/250 ML BAG IVPB SCH ×2 (05:38→17:09)
[2017-06-13 07:06] LABS: BASO # 0.02 K/mm3 (0.0-2.0); BASO % 0.5 % (0.0-3.0); EOS # 0.1 (0.0-0.7); EOS % 1.8 % (1.5-5.0); GRAN % 58.8 % (50.0-68.0); HEMOGLOBIN 11.5 gm/dL (14.0-18.0); LYMPH # 1.2 (1.2-3.4); LYMPH % 26.5 % (22.0-35.0); MEAN CELL VOLUME 97.7 fL (80.0-105.0); MEAN CORPUSCULAR HEMOGLOBIN 33.7 pg (25.0-35.0); MEAN CORPUSCULAR HGB CONC 34.5 g/dl (31.0-37.0); MEAN PLATELET VOLUME 11.1 fl (7.0-11.0); MONO # 0.6 (0.1-0.6); MONO % 12.4 % (1.0-6.0); PLATELET COUNT 73 10^3/uL (120.0-450.0); RBC 3.41 10^6/uL (3.5-6.1); WHITE BLOOD COUNT 4.4 10^3/ul (4.5-11.0)
[2017-06-13 07:38] LABS: ALBUMIN 4.2 g/dL (3.0-4.8); ALT/SGPT 152 U/L (7-56); AST/SGOT 541 U/L (15-59); BLOOD UREA NITROGEN 5 mg/dL (7-21); CALCIUM 9.7 mg/dL (8.4-10.5); GFR AFRICAN-AMERICAN > 60; GFR NON-AFRICAN AMERICAN > 60
--- NOTE | 2017-06-13 17:57 | CP.PCM.PN ---
<KishoreGeorges - Last Filed: 06/13/17 17:54> Subjective - Date & Time of Evaluation Date of Evaluation: 06/13/17 Time of Evaluation: 07:30 - Subjective Subjective: Subjective: Pt s/e at bedside. Pt still complaining of CP and abdominal pain. Blood cultures were positive, ID c/s: added vanc. GI has signed out and told patient to follow up o/p for colonoscopy and EGD. CP workup has been negative. No further complaints. Objective - Vital Signs/Intake and Output Vital Signs (last 24 hours): Temp Pulse Resp BP Pulse Ox 99.2 F 95 H 19 148/98 H 98 06/13/17 16:00 06/13/17 16:00 06/13/17 16:00 06/13/17 16:00 06/13/17 16:00 Intake and Output: 06/13/17 06/13/17 06:59 18:59 Intake Total 540 725 Balance 540 725 - Medications Medications: Current Medications Folic Acid (Folic Acid) 1 mg PO DAILY [facility] Last Admin: 06/13/17 11:15 Dose: 1 mg Vancomycin HCl (Vancomycin 1gm) 1 gm in 250 mls @ 167 mls/hr IVPB Q12H [facility] PRN Reason: Protocol Last Admin: 06/13/17 17:09 Dose: 167 mls/hr Lorazepam (Ativan) 2 mg IVP Q4 PRN; Protocol PRN Reason: Symptoms of alcohol withdrawl Last Admin: 06/12/17 16:57 Dose: 2 mg Morphine Sulfate (Morphine) 2 mg IVP Q4H PRN PRN Reason: Pain, moderate (4-7) Ondansetron HCl (Zofran Inj) 4 mg IVP Q6H PRN PRN Reason: Nausea/Vomiting Pantoprazole Sodium (Protonix Inj) 40 mg IVP DAILY [facility] Last Admin: 06/13/17 11:15 Dose: 40 mg Thiamine HCl (Vitamin B1 Tab) 50 mg PO DAILY [facility] Last Admin: 06/13/17 11:15 Dose: 50 mg - Labs Labs: 06/13/17 06:30 06/13/17 06:30 PT 11.9 Seconds (9.9-11.8) H 06/12/17 07:30 INR 1.10 (0.93-1.08) H 06/12/17 07:30 APTT 30.4 Seconds (23.7-30.8) 06/12/17 07:30 - Head Exam Head Exam: ATRAUMATIC, NORMAL INSPECTION, NORMOCEPHALIC - Eye Exam Eye Exam: EOMI, Normal appearance, PERRL Pupil Exam: NORMAL ACCOMODATION - ENT Exam ENT Exam: Mucous Membranes Moist, Normal Exam - Neck Exam Neck Exam: Normal Inspection - Respiratory Exam Respiratory Exam: Clear to Ausculation Bilateral, NORMAL BREATHING PATTERN - Cardiovascular Exam Cardiovascular Exam: REGULAR RHYTHM - GI/Abdominal Exam GI & Abdominal Exam: Soft, Tenderness, Normal Bowel Sounds - Rectal Exam Rectal Exam: Deferred - Extremities Exam Extremities Exam: Full ROM, Normal Capillary Refill, Normal Inspection - Back Exam Back Exam: NORMAL INSPECTION - Neurological Exam Neurological Exam: Alert, Awake, CN II-XII Intact, Oriented x3 - Psychiatric Exam Psychiatric exam: Normal Affect, Normal Mood - Skin Skin Exam: Intact, Normal Color, Warm Assessment and Plan - Assessment and Plan (Free Text) Assessment: Assessment: Patient is a 47 year old male with PMHx of alcohol abuse, hypertension, questionable DM, and gastritis who is being admitted for evaluation and treatment of abdominal pain and chest pain. 1. Abdominal Pain; Nausea; Transminitis, Hyperbilirubinemia - CT reviewed: 1. Gallbladder distention with dilated common bile duct. 2. Hepatic steatosis. - MRCP - Abdominal U/S - GI: spoke to Dr. Momin, GI fellow, regarding elevated LFTs, agreed to reevaluate - unasyn - lipase - morphine PRN - zofran PRN 2. Chest pain: resolved - troponins stat and trended: negative - EKG in Ed reviewed- sinus rhythm with 1st degree AV block 3. Positive blood cultures - ID on c/s. Vanc added to regimen - May need echocardiogram to r/o endocarditis 4. ETOH Abuse - CIWA - ativan 1mg q4 prn withdrawal symptoms, last dose 06/12 16:00 5. History of HTN - patient normotensive in ED - continue to monitor without hypertensive medications as he does not take any outpatient 6. Diabetes Mellitus - controlled, HbA1c 5.9 06/11 - patient glucose WNL - continue to monitor without diabetic medications as he does not take any outpatient 7. Anemia, Thrombocytopenia - Hgb/Hct at baseline - monitor closely via daily CBC - consider fecal occult blood test; outpatient iron studies, b12, folate 8. Hypokalemia: resolved - replete - monitor closely via daily CMP 9. Dysuria - UA clean - urine culture neg 10. PPX - subq heparin - protonix <Priyank Hare MD - Last Filed: 06/14/17 15:50> Objective - Vital Signs/Intake and Output Vital Signs (last 24 hours): Temp Pulse Resp BP Pulse Ox 98.6 F 89 18 141/89 98 06/14/17 06:00 06/14/17 06:00 06/14/17 06:00 06/14/17 06:00 06/14/17 06:00 Intake and Output: 06/14/17 06/14/17 06:59 18:59 Intake Total 370 360 Output Total 300 Balance 370 60 - Medications Medications: Current Medications Folic Acid (Folic Acid) 1 mg PO DAILY [facility] Last Admin: 06/14/17 09:39 Dose: 1 mg Vancomycin HCl (Vancomycin 1gm) 1 gm in 250 mls @ 167 mls/hr IVPB Q12H [facility] PRN Reason: Protocol Last Admin: 06/14/17 05:24 Dose: 167 mls/hr Lorazepam (Ativan) 2 mg IVP Q4 PRN; Protocol PRN Reason: Symptoms of alcohol withdrawl Last Admin: 06/14/17 09:38 Dose: 2 mg Morphine Sulfate (Morphine) 2 mg IVP Q4H PRN PRN Reason: Pain, moderate (4-7) Ondansetron HCl (Zofran Inj) 4 mg IVP Q6H PRN PRN Reason: Nausea/Vomiting Last Admin: 06/14/17 09:39 Dose: 4 mg Pantoprazole Sodium (Protonix Inj) 40 mg IVP DAILY [facility] Last Admin: 06/14/17 12:45 Dose: Not Given Thiamine HCl (Vitamin B1 Tab) 50 mg PO DAILY [facility] Last Admin: 06/14/17 09:39 Dose: 50 mg - Labs Labs: 06/14/17 05:40 06/14/17 05:40 PT 11.9 Seconds (9.9-11.8) H 06/12/17 07:30 INR 1.10 (0.93-1.08) H 06/12/17 07:30 APTT 30.4 Seconds (23.7-30.8) 06/12/17 07:30 Attending/Attestation - Attestation I have personally seen and examined this patient.: Yes I have fully participated in the care of the patient.: Yes I have reviewed all pertinent clinical information, including history, physical exam and plan: Yes Notes (Text): 06/14/17 15:46 Patient was seen and examined with certified medical transcriptionist. Agreed with resident assessment and plan. 47 M with PMH of chronic alcohol abuse, anxiety with elevated LFT which has increases since yesterday, likely due to medication, we will discontinue unasyn , will follow up LFT.Patient case was discussed with GI. Patient initial cultures from ER growing gram possitive ccci in cluster, repeat cultures are negative, we will follow up culture, will continue Vancomycin.ID evaluation is appreciated. Management plan was discussed in detail with patient Education was provided.
--- NOTE | 2017-06-13 18:25 | CP.PCM.PN ---
Subjective - Date & Time of Evaluation Date of Evaluation: 06/13/17 Time of Evaluation: 17:30 - Subjective Subjective: Infectious Disease Follow Up: June 13, 2017 47 yo male who is homeless presenting with two day history of abdominal pain. Patient with nausea, vomiting, and diarrhea episodes. The patient is homeless. Infectious Disease called for Gram Positive Cocci in Clusters in two blood culture bottles. Identification still pending. FISH analysis not yet complete. The patient is still complaining of chest and abdominal pain. Objective - Vital Signs/Intake and Output Vital Signs (last 24 hours): Temp Pulse Resp BP Pulse Ox 99.2 F 95 H 19 148/98 H 98 06/13/17 16:00 06/13/17 16:00 06/13/17 16:00 06/13/17 16:00 06/13/17 16:00 Intake and Output: 06/13/17 06/13/17 06:59 18:59 Intake Total 540 725 Balance 540 725 - Medications Medications: Current Medications Folic Acid (Folic Acid) 1 mg PO DAILY [facility] Last Admin: 06/13/17 11:15 Dose: 1 mg Vancomycin HCl (Vancomycin 1gm) 1 gm in 250 mls @ 167 mls/hr IVPB Q12H [facility] PRN Reason: Protocol Last Admin: 06/13/17 17:09 Dose: 167 mls/hr Lorazepam (Ativan) 2 mg IVP Q4 PRN; Protocol PRN Reason: Symptoms of alcohol withdrawl Last Admin: 06/12/17 16:57 Dose: 2 mg Morphine Sulfate (Morphine) 2 mg IVP Q4H PRN PRN Reason: Pain, moderate (4-7) Ondansetron HCl (Zofran Inj) 4 mg IVP Q6H PRN PRN Reason: Nausea/Vomiting Pantoprazole Sodium (Protonix Inj) 40 mg IVP DAILY [facility] Last Admin: 06/13/17 11:15 Dose: 40 mg Thiamine HCl (Vitamin B1 Tab) 50 mg PO DAILY [facility] Last Admin: 06/13/17 11:15 Dose: 50 mg - Labs Labs: 06/13/17 06:30 06/13/17 06:30 PT 11.9 Seconds (9.9-11.8) H 06/12/17 07:30 INR 1.10 (0.93-1.08) H 06/12/17 07:30 APTT 30.4 Seconds (23.7-30.8) 06/12/17 07:30 - Constitutional Appears: Non-toxic, No Acute Distress, Unkempt, Chronically Ill - Head Exam Head Exam: ATRAUMATIC, NORMOCEPHALIC - Eye Exam Eye Exam: EOMI, PERRL Pupil Exam: NORMAL ACCOMODATION, PERRL - ENT Exam ENT Exam: Mucous Membranes Moist, Normal External Ear Exam, TM's Normal Bilaterally - Neck Exam Neck Exam: Full ROM, Normal Inspection - Respiratory Exam Respiratory Exam: Clear to Ausculation Bilateral, NORMAL BREATHING PATTERN. absent: Rales, Rhonchi, Wheezes - Cardiovascular Exam Cardiovascular Exam: REGULAR RHYTHM, RRR, +S1, +S2 - GI/Abdominal Exam GI & Abdominal Exam: Soft, Normal Bowel Sounds. absent: Distended, Tenderness - Extremities Exam Extremities Exam: Full ROM, Normal Inspection - Neurological Exam Neurological Exam: Alert, Awake, CN II-XII Intact, Oriented x3 - Psychiatric Exam Psychiatric exam: Normal Affect, Normal Mood - Skin Additional comments: thickened skin especially in extremities. Assessment and Plan - Assessment and Plan (Free Text) Assessment: 47 yo male with growth of Gram Positive Cocci in Clusters. On Unasyn currently. Added Vancomycin to the patient's regimen. Supportive care. Await culture results. Patient with no permanent place of residence at this time. On CT and ultrasound of the abdomen, there is distension of the gallbladder and CBD. Awaiting final culture results or even FISH results. May need echocardiogram to r/o endocarditis especially if growth is Staph Aureus. Organism growth will also determine length of antibiotic therapy. Supportive care. Thank you for allowing me to participate in the care of this patient, we will follow with you.
[2017-06-14] MEDS: Vancomycin 1gm in NS 250ml 1 GM/250 ML BAG IVPB SCH ×2 (05:24→17:25)
[2017-06-14 06:54] LABS: BASO # 0.03 K/mm3 (0.0-2.0); BASO % 0.6 % (0.0-3.0); EOS # 0.1 (0.0-0.7); EOS % 2.5 % (1.5-5.0); GRAN # 2.55 (1.4-6.5); GRAN % 52.8 % (50.0-68.0); HEMOGLOBIN 11.8 gm/dL (14.0-18.0); LYMPH # 1.5 (1.2-3.4); LYMPH % 31.1 % (22.0-35.0); MEAN CELL VOLUME 99.1 fL (80.0-105.0); MEAN CORPUSCULAR HEMOGLOBIN 33.9 pg (25.0-35.0); MEAN CORPUSCULAR HGB CONC 34.2 g/dl (31.0-37.0); MEAN PLATELET VOLUME 10.8 fl (7.0-11.0); MONO # 0.6 (0.1-0.6); PLATELET COUNT 89 10^3/uL (120.0-450.0); RBC 3.48 10^6/uL (3.5-6.1); RED CELL DISTRIBUTION WIDTH 13.4 % (11.5-14.5); WHITE BLOOD COUNT 4.8 10^3/ul (4.5-11.0)
[2017-06-14 07:12] LABS: ALBUMIN 4.4 g/dL (3.0-4.8); ALT/SGPT 234 U/L (7-56); AST/SGOT 477 U/L (15-59); BLOOD UREA NITROGEN 7 mg/dL (7-21); CALCIUM 9.9 mg/dL (8.4-10.5); GFR AFRICAN-AMERICAN > 60; GFR NON-AFRICAN AMERICAN > 60
--- NOTE | 2017-06-14 15:20 | CP.PCM.PN ---
Subjective - Date & Time of Evaluation Date of Evaluation: 06/14/17 Time of Evaluation: 14:00 - Subjective Subjective: Infectious Disease Follow Up: June 14, 2017 47 yo male who is homeless presenting with two day history of abdominal pain. Patient with nausea, vomiting, and diarrhea episodes. The patient is homeless. Infectious Disease called for Gram Positive Cocci in Clusters in two blood culture bottles. Identification is aerococcus Viridans. The patient is still complaining of chest and abdominal pain. Continue on Vancomycin and Unasyn for now. Objective - Vital Signs/Intake and Output Vital Signs (last 24 hours): Temp Pulse Resp BP Pulse Ox 98.6 F 89 18 141/89 98 06/14/17 06:00 06/14/17 06:00 06/14/17 06:00 06/14/17 06:00 06/14/17 06:00 Intake and Output: 06/14/17 06/14/17 06:59 18:59 Intake Total 370 360 Output Total 300 Balance 370 60 - Medications Medications: Current Medications Folic Acid (Folic Acid) 1 mg PO DAILY [facility] Last Admin: 06/14/17 09:39 Dose: 1 mg Vancomycin HCl (Vancomycin 1gm) 1 gm in 250 mls @ 167 mls/hr IVPB Q12H VÍCTOR PRN Reason: Protocol Last Admin: 06/14/17 05:24 Dose: 167 mls/hr Lorazepam (Ativan) 2 mg IVP Q4 PRN; Protocol PRN Reason: Symptoms of alcohol withdrawl Last Admin: 06/14/17 09:38 Dose: 2 mg Morphine Sulfate (Morphine) 2 mg IVP Q4H PRN PRN Reason: Pain, moderate (4-7) Ondansetron HCl (Zofran Inj) 4 mg IVP Q6H PRN PRN Reason: Nausea/Vomiting Last Admin: 06/14/17 09:39 Dose: 4 mg Pantoprazole Sodium (Protonix Inj) 40 mg IVP DAILY [facility] Last Admin: 06/14/17 12:45 Dose: Not Given Thiamine HCl (Vitamin B1 Tab) 50 mg PO DAILY [facility] Last Admin: 06/14/17 09:39 Dose: 50 mg - Labs Labs: 06/14/17 05:40 06/14/17 05:40 PT 11.9 Seconds (9.9-11.8) H 06/12/17 07:30 INR 1.10 (0.93-1.08) H 06/12/17 07:30 APTT 30.4 Seconds (23.7-30.8) 06/12/17 07:30 - Constitutional Appears: Non-toxic, No Acute Distress, Chronically Ill - Head Exam Head Exam: ATRAUMATIC, NORMOCEPHALIC - Eye Exam Eye Exam: EOMI, PERRL Pupil Exam: NORMAL ACCOMODATION, PERRL - ENT Exam ENT Exam: Mucous Membranes Moist, Normal External Ear Exam, TM's Normal Bilaterally - Neck Exam Neck Exam: Full ROM, Normal Inspection - Respiratory Exam Respiratory Exam: Clear to Ausculation Bilateral, NORMAL BREATHING PATTERN. absent: Rales, Rhonchi, Wheezes - Cardiovascular Exam Cardiovascular Exam: REGULAR RHYTHM, RRR, +S1, +S2 - GI/Abdominal Exam GI & Abdominal Exam: Soft, Normal Bowel Sounds. absent: Distended, Tenderness - Extremities Exam Extremities Exam: Full ROM, Normal Inspection - Neurological Exam Neurological Exam: Alert, Awake, CN II-XII Intact, Oriented x3 - Psychiatric Exam Psychiatric exam: Normal Affect, Normal Mood - Skin Additional comments: thickened skin especially in extremities. Assessment and Plan - Assessment and Plan (Free Text) Assessment: 47 yo male with growth of Gram Positive Cocci in Clusters. On Unasyn currently. Added Vancomycin to the patient's regimen. Supportive care. Patient with no permanent place of residence at this time. On CT and ultrasound of the abdomen, there is distension of the gallbladder and CBD. Will need echocardiogram to r/o endocarditis. Organism growth will also determine length of antibiotic therapy. Cultures growing Aerococcus Viridans. On rare occassions, this organisms can cause endocarditis and UTIs. Supportive care. Thank you for allowing me to participate in the care of this patient, we will follow with you.
[2017-06-14 16:15] VITALS: O2SAT 99
--- NOTE | 2017-06-14 21:25 | CP.PCM.PN ---
<KishoreGeorges Thompson - Last Filed: 06/14/17 21:26> Subjective - Date & Time of Evaluation Date of Evaluation: 06/14/17 Time of Evaluation: 09:00 - Subjective Subjective: Pt s/e at bedside. Pt complained of black stools overnight, sweating, and abdominal pain - ativan 2mg given. GI saw patient for doubled LFT"s from yesterday's labs, stated that patient needs to f/u o/p for colonoscopy and possible EUS. ID recommends ECHO, ordered today. No further complaints. Objective - Vital Signs/Intake and Output Vital Signs (last 24 hours): Temp Pulse Resp BP Pulse Ox 99.2 F 79 18 122/70 99 06/14/17 16:14 06/14/17 16:14 06/14/17 16:14 06/14/17 16:14 06/14/17 16:14 Intake and Output: 06/14/17 06/15/17 18:59 06:59 Intake Total 360 Output Total 300 Balance 60 - Medications Medications: Current Medications Folic Acid (Folic Acid) 1 mg PO DAILY [facility] Last Admin: 06/14/17 09:39 Dose: 1 mg Vancomycin HCl (Vancomycin 1gm) 1 gm in 250 mls @ 167 mls/hr IVPB Q12H VÍCTOR PRN Reason: Protocol Last Admin: 06/14/17 17:25 Dose: 167 mls/hr Lorazepam (Ativan) 2 mg IVP Q4 PRN; Protocol PRN Reason: Symptoms of alcohol withdrawl Last Admin: 06/14/17 09:38 Dose: 2 mg Morphine Sulfate (Morphine) 2 mg IVP Q4H PRN PRN Reason: Pain, moderate (4-7) Ondansetron HCl (Zofran Inj) 4 mg IVP Q6H PRN PRN Reason: Nausea/Vomiting Last Admin: 06/14/17 09:39 Dose: 4 mg Pantoprazole Sodium (Protonix Inj) 40 mg IVP DAILY [facility] Last Admin: 06/14/17 12:45 Dose: Not Given Thiamine HCl (Vitamin B1 Tab) 50 mg PO DAILY [facility] Last Admin: 06/14/17 09:39 Dose: 50 mg - Labs Labs: 06/14/17 05:40 06/14/17 05:40 PT 11.9 Seconds (9.9-11.8) H 06/12/17 07:30 INR 1.10 (0.93-1.08) H 06/12/17 07:30 APTT 30.4 Seconds (23.7-30.8) 06/12/17 07:30 - Constitutional Appears: Unkempt - Head Exam Head Exam: ATRAUMATIC, NORMAL INSPECTION, NORMOCEPHALIC - Eye Exam Eye Exam: EOMI, Normal appearance, PERRL Pupil Exam: NORMAL ACCOMODATION, PERRL - ENT Exam ENT Exam: Mucous Membranes Moist, Normal Exam - Neck Exam Neck Exam: Full ROM, Normal Inspection - Respiratory Exam Respiratory Exam: Clear to Ausculation Bilateral, NORMAL BREATHING PATTERN - Cardiovascular Exam Cardiovascular Exam: Tachycardia, REGULAR RHYTHM, +S1, +S2 - GI/Abdominal Exam GI & Abdominal Exam: Soft, Tenderness, Normal Bowel Sounds - Rectal Exam Rectal Exam: Deferred - Extremities Exam Extremities Exam: Full ROM, Normal Capillary Refill, Normal Inspection - Back Exam Back Exam: NORMAL INSPECTION - Neurological Exam Neurological Exam: Alert, Awake, CN II-XII Intact, Normal Gait, Oriented x3 - Psychiatric Exam Psychiatric exam: Normal Affect, Normal Mood Assessment and Plan - Assessment and Plan (Free Text) Assessment: Patient is a 47 year old male with PMHx of alcohol abuse, hypertension, questionable DM, and gastritis who is being admitted for evaluation and treatment of abdominal pain and chest pain. 1. Abdominal Pain; Nausea; Transminitis, Hyperbilirubinemia - CT reviewed: 1. Gallbladder distention with dilated common bile duct. 2. Hepatic steatosis. - MRCP - Abdominal U/S - GI: spoke to Dr. Momin, GI fellow, regarding elevated LFTs, agreed to reevaluate - said to f/u outpatient - unasyn - lipase - morphine PRN - zofran PRN 2. Chest pain: resolved - troponins stat and trended: negative - EKG in Ed reviewed- sinus rhythm with 1st degree AV block 3. Positive blood cultures - Aerococcus viridans - Per ID: need ECHO to r/o endocarditis - ECHO: 4. ETOH Abuse - CIWA - ativan 1mg q4 prn withdrawal symptoms, last dose 06/12 16:00 5. History of HTN - patient normotensive in ED - continue to monitor without hypertensive medications as he does not take any outpatient 6. Diabetes Mellitus - controlled, HbA1c 5.9 06/11 - patient glucose WNL - continue to monitor without diabetic medications as he does not take any outpatient 7. Anemia, Thrombocytopenia - Hgb/Hct at baseline - monitor closely via daily CBC - consider fecal occult blood test; outpatient iron studies, b12, folate 8. Hypokalemia: resolved - replete - monitor closely via daily CMP 9. Dysuria - UA clean - urine culture neg 10. PPX - subq heparin - protonix <Priyank Hare MD - Last Filed: 06/15/17 12:39> Objective - Vital Signs/Intake and Output Vital Signs (last 24 hours): Temp Pulse Resp BP Pulse Ox 98.6 F 89 19 124/77 99 06/15/17 08:12 06/15/17 08:12 06/15/17 08:12 06/15/17 08:12 06/15/17 08:12 Intake and Output: 06/15/17 06/15/17 06:59 18:59 Intake Total 1080 Output Total 700 Balance 380 - Medications Medications: Current Medications Folic Acid (Folic Acid) 1 mg PO DAILY [facility] Last Admin: 06/15/17 10:36 Dose: 1 mg Vancomycin HCl (Vancomycin 1gm) 1 gm in 250 mls @ 167 mls/hr IVPB Q12H VÍCTOR PRN Reason: Protocol Last Admin: 06/15/17 05:55 Dose: 167 mls/hr Lorazepam (Ativan) 2 mg IVP Q4 PRN; Protocol PRN Reason: Symptoms of alcohol withdrawl Last Admin: 06/14/17 09:38 Dose: 2 mg Ondansetron HCl (Zofran Inj) 4 mg IVP Q6H PRN PRN Reason: Nausea/Vomiting Last Admin: 06/14/17 09:39 Dose: 4 mg Pantoprazole Sodium (Protonix Inj) 40 mg IVP DAILY [facility] Last Admin: 06/15/17 10:36 Dose: 40 mg Thiamine HCl (Vitamin B1 Tab) 50 mg PO DAILY [facility] Last Admin: 06/15/17 10:36 Dose: 50 mg - Labs Labs: 06/15/17 06:00 06/15/17 06:00 PT 11.9 Seconds (9.9-11.8) H 06/12/17 07:30 INR 1.10 (0.93-1.08) H 07/26/17 07:30 APTT 30.4 Seconds (23.7-30.8) 06/12/17 07:30 Attending/Attestation - Attestation I have personally seen and examined this patient.: Yes I have fully participated in the care of the patient.: Yes I have reviewed all pertinent clinical information, including history, physical exam and plan: Yes Notes (Text): 06/15/17 12:36 Patient was seen and examined with medical records analyst. Agreed with resident assessment and plan. Patient is afebrile.Blood cultures from ER grew Aerococcus Viridans, repeat blood cultures are negative for any growth.Discuss with ID, We will get Echo, if negative , will discontinue IV Vancomycin. Patient LFT are coming down. Alcohol withdrawal are improving. Management plan was discussed in detail with patient Education was provided.
[2017-06-15] MEDS: Vancomycin 1gm in NS 250ml 1 GM/250 ML BAG IVPB SCH ×2 (05:55→17:16)
[2017-06-15 07:05] LABS: BASO # 0.04 K/mm3 (0.0-2.0); BASO % 0.7 % (0.0-3.0); EOS # 0.1 (0.0-0.7); EOS % 2.4 % (1.5-5.0); GRAN % 50.5 % (50.0-68.0); HEMOGLOBIN 12.5 gm/dL (14.0-18.0); LYMPH # 1.9 (1.2-3.4); LYMPH % 33.3 % (22.0-35.0); MEAN CELL VOLUME 100.6 fL (80.0-105.0); MEAN CORPUSCULAR HEMOGLOBIN 35.1 pg (25.0-35.0); MEAN CORPUSCULAR HGB CONC 34.9 g/dl (31.0-37.0); MEAN PLATELET VOLUME 11.3 fl (7.0-11.0); MONO # 0.8 (0.1-0.6); MONO % 13.1 % (1.0-6.0); PLATELET COUNT 123 10^3/uL (120.0-450.0); RBC 3.56 10^6/uL (3.5-6.1); WHITE BLOOD COUNT 5.7 10^3/ul (4.5-11.0)
[2017-06-15 07:24] LABS: ALBUMIN 4.4 g/dL (3.0-4.8); ALT/SGPT 213 U/L (7-56); AST/SGOT 315 U/L (15-59); BLOOD UREA NITROGEN 12 mg/dL (7-21); CALCIUM 10.2 mg/dL (8.4-10.5); GFR AFRICAN-AMERICAN > 60; GFR NON-AFRICAN AMERICAN > 60
[2017-06-15 08:12] VITALS: RESP 19
--- NOTE | 2017-06-15 13:03 | CP.PCM.PN ---
<KishoreGeorges - Last Filed: 06/15/17 12:56> Subjective - Date & Time of Evaluation Date of Evaluation: 06/15/17 Time of Evaluation: 08:00 - Subjective Subjective: Pt s/e at bedside. Still complaining of N/D. Patient is c/o increased diarrhea. C. Diff ordered. Pt awaiting ECHO to r/o Endocarditis - Aerococcus found in cultures. No further complaints. Placement will be needed, as patient is homeless and doesn't have a place to go Objective - Vital Signs/Intake and Output Vital Signs (last 24 hours): Temp Pulse Resp BP Pulse Ox 98.6 F 89 19 124/77 99 06/15/17 08:12 06/15/17 08:12 06/15/17 08:12 06/15/17 08:12 06/15/17 08:12 Intake and Output: 06/15/17 06/15/17 06:59 18:59 Intake Total 1080 Output Total 700 Balance 380 - Medications Medications: Current Medications Folic Acid (Folic Acid) 1 mg PO DAILY [facility] Last Admin: 06/15/17 10:36 Dose: 1 mg Vancomycin HCl (Vancomycin 1gm) 1 gm in 250 mls @ 167 mls/hr IVPB Q12H VÍCTOR PRN Reason: Protocol Last Admin: 06/15/17 05:55 Dose: 167 mls/hr Lorazepam (Ativan) 1 mg IVP Q8H PRN; Protocol PRN Reason: Anxiety Ondansetron HCl (Zofran Inj) 4 mg IVP Q6H PRN PRN Reason: Nausea/Vomiting Last Admin: 06/14/17 09:39 Dose: 4 mg Pantoprazole Sodium (Protonix Inj) 40 mg IVP DAILY [facility] Last Admin: 06/15/17 10:36 Dose: 40 mg Thiamine HCl (Vitamin B1 Tab) 50 mg PO DAILY [facility] Last Admin: 06/15/17 10:36 Dose: 50 mg - Labs Labs: 06/15/17 06:00 06/15/17 06:00 PT 11.9 Seconds (9.9-11.8) H 06/12/17 07:30 INR 1.10 (0.93-1.08) H 06/12/17 07:30 APTT 30.4 Seconds (23.7-30.8) 06/12/17 07:30 - Constitutional Appears: Unkempt - Head Exam Head Exam: ATRAUMATIC, NORMAL INSPECTION, NORMOCEPHALIC - Eye Exam Eye Exam: EOMI, Normal appearance, PERRL Pupil Exam: NORMAL ACCOMODATION - ENT Exam ENT Exam: Mucous Membranes Moist, Normal Exam - Neck Exam Neck Exam: Normal Inspection - Respiratory Exam Respiratory Exam: Clear to Ausculation Bilateral, NORMAL BREATHING PATTERN - Cardiovascular Exam Cardiovascular Exam: REGULAR RHYTHM, +S1, +S2 - GI/Abdominal Exam GI & Abdominal Exam: Soft, Normal Bowel Sounds - Rectal Exam Rectal Exam: Deferred - Extremities Exam Extremities Exam: Full ROM, Normal Capillary Refill, Normal Inspection - Back Exam Back Exam: NORMAL INSPECTION - Neurological Exam Neurological Exam: Alert, Awake, CN II-XII Intact, Normal Gait, Oriented x3 - Psychiatric Exam Psychiatric exam: Normal Affect, Normal Mood Assessment and Plan - Assessment and Plan (Free Text) Assessment: Patient is a 47 year old male with PMHx of alcohol abuse, hypertension, questionable DM, and gastritis who is being admitted for evaluation and treatment of abdominal pain and chest pain. 1. Abdominal Pain; Nausea; Transminitis, Hyperbilirubinemia - CT reviewed: 1. Gallbladder distention with dilated common bile duct. 2. Hepatic steatosis. - MRCP: o/p - GI: spoke to Dr. Momin, GI fellow, regarding elevated LFTs, agreed to reevaluate - said to f/u outpatient - Unasyn: no longer necessary - Lipase: 120, pancreatitis unlikely - Morphine PRN - Zofran PRN - Ordered C. Diff 2. Chest pain: resolved - Troponins stat and trended: negative - EKG in ED reviewed- sinus rhythm with 1st degree AV block 3. Positive blood cultures - Aerococcus viridans - Per ID: need ECHO to r/o endocarditis - ECHO: pending 4. ETOH Abuse - CIWA - ativan 1mg q8 prn 5. History of HTN - patient normotensive in ED - continue to monitor without hypertensive medications as he does not take any outpatient 6. Diabetes Mellitus - controlled, HbA1c 5.9 06/11 - patient glucose WNL - continue to monitor without diabetic medications as he does not take any outpatient 7. Anemia, Thrombocytopenia - Hgb/Hct at baseline - monitor closely via daily CBC - consider fecal occult blood test; outpatient iron studies, b12, folate 8. Hypokalemia: resolved - replete - monitor closely via daily CMP 9. Dysuria - UA clean - urine culture neg 10. PPX - subq heparin - protonix <Priyank Hare MD - Last Filed: 06/15/17 16:59> Objective - Vital Signs/Intake and Output Vital Signs (last 24 hours): Temp Pulse Resp BP Pulse Ox 98.6 F 95 H 19 124/77 99 06/15/17 08:12 06/15/17 10:00 06/15/17 08:12 06/15/17 08:12 06/15/17 08:12 Intake and Output: 06/15/17 06/15/17 06:59 18:59 Intake Total 1080 780 Output Total 700 Balance 380 780 - Medications Medications: Current Medications Folic Acid (Folic Acid) 1 mg PO DAILY [facility] Last Admin: 06/15/17 10:36 Dose: 1 mg Vancomycin HCl (Vancomycin 1gm) 1 gm in 250 mls @ 167 mls/hr IVPB Q12H VÍCTOR PRN Reason: Protocol Last Admin: 06/15/17 05:55 Dose: 167 mls/hr Lorazepam (Ativan) 1 mg IVP Q8H PRN; Protocol PRN Reason: Anxiety Ondansetron HCl (Zofran Inj) 4 mg IVP Q6H PRN PRN Reason: Nausea/Vomiting Last Admin: 06/14/17 09:39 Dose: 4 mg Pantoprazole Sodium (Protonix Inj) 40 mg IVP DAILY [facility] Last Admin: 06/15/17 10:36 Dose: 40 mg Thiamine HCl (Vitamin B1 Tab) 50 mg PO DAILY [facility] Last Admin: 06/15/17 10:36 Dose: 50 mg - Labs Labs: 06/15/17 06:00 06/15/17 06:00 PT 11.9 Seconds (9.9-11.8) H 06/12/17 07:30 INR 1.10 (0.93-1.08) H 06/12/17 07:30 APTT 30.4 Seconds (23.7-30.8) 06/12/17 07:30 Attending/Attestation - Attestation I have personally seen and examined this patient.: Yes I have fully participated in the care of the patient.: Yes I have reviewed all pertinent clinical information, including history, physical exam and plan: Yes Notes (Text): 06/15/17 16:57 Patient was seen and examined with spanish medical interpreter. Agreed with resident assessment and plan. Patient is afebrile.Blood cultures from ER grew Aerococcus Viridans, repeat blood cultures are negative for any growth.Discuss with ID, 2D echo is negative for endocarditis.Patient is c/o diarrhea, we will check stool for clostridium defficle colitis. Patient LFT are coming down. Alcohol withdrawal are improving. Management plan was discussed in detail with patient Education was provided.
--- NOTE | 2017-06-15 15:28 | CARD ---
APPROVED REPORT EXAM: Two-dimensional and M-mode echocardiogram with Doppler and color Doppler. INDICATION 2D DIMENSIONS IVSd0.9 (0.7-1.1cm)LVDd3.6 (3.9-5.9cm) PWd1.0 (0.7-1.1cm)LVDs2.2 (2.5-4.0cm) FS (%) 37.5 %LVEF (%)68.5 (>50%) M-Mode DIMENSIONS Left Atrium (MM)3.40 (2.5-4.0cm)Aortic Root3.40 (2.2-3.7cm) Aortic Cusp Exc.2.20 (1.5-2.0cm) Aortic Valve AoV Peak Iobfyddq870.0cm/Kylie Peak GR.5mmHg Mitral Valve MV E Moricbld86.4cm/sMV A Dyxnqgze31.5cm/sE/A ratio0.6 TDI Lateral E' Peak V9.75cm/sMedial E' Peak V5.26cm/sE/Lateral E'4.8 E/Medial E'8.8 Tricuspid Valve TR Peak Vmihrrdg302vm/sRAP [id number] Peak Gr.4mmHg [id number] LEFT VENTRICLE The left ventricle is normal size. There is normal left ventricular wall thickness. The left ventricular function is normal. The left ventricular ejection fraction is within the normal range. There is normal LV segmental wall motion. Transmitral Doppler flow pattern is Grade I-abnormal relaxation pattern. RIGHT VENTRICLE The right ventricle is normal size. There is normal right ventricular wall thickness. RV Systolic function is borderline reduced. ATRIA The left atrium size is normal. The right atrium size is normal. AORTIC VALVE The aortic valve is normal in structure. No aortic regurgitation is present. MITRAL VALVE The mitral valve is normal in structure. There is no mitral valve regurgitation noted. TRICUSPID VALVE There is no pulmonary hypertension. GREAT VESSELS The aortic root is normal in size. The IVC was not visualized. PERICARDIAL EFFUSION There is a trace loculated anterior pericardial effusion. <Conclusion> The left ventricle is normal size. There is normal left ventricular wall thickness. The left ventricular function is normal. The left ventricular ejection fraction is within the normal range. There is normal LV segmental wall motion. Transmitral Doppler flow pattern is Grade I-abnormal relaxation pattern.
--- NOTE | 2017-06-15 16:59 | CP.PCM.PN ---
Subjective - Date & Time of Evaluation Date of Evaluation: 06/15/17 Time of Evaluation: 16:00 - Subjective Subjective: Infectious Disease Follow Up: June 15, 2017 47 yo male who is homeless presenting with two day history of abdominal pain. Patient with nausea, vomiting, and diarrhea episodes. The patient is homeless. Infectious Disease called for Gram Positive Cocci in Clusters in two blood culture bottles. Identification is aerococcus Viridans. The patient is still complaining of chest and abdominal pain. Continue on Vancomycin and Unasyn while in hospital. Objective - Vital Signs/Intake and Output Vital Signs (last 24 hours): Temp Pulse Resp BP Pulse Ox 98.6 F 95 H 19 124/77 99 06/15/17 08:12 06/15/17 10:00 06/15/17 08:12 06/15/17 08:12 06/15/17 08:12 Intake and Output: 06/15/17 06/15/17 06:59 18:59 Intake Total 1080 780 Output Total 700 Balance 380 780 - Medications Medications: Current Medications Folic Acid (Folic Acid) 1 mg PO DAILY [facility] Last Admin: 06/15/17 10:36 Dose: 1 mg Vancomycin HCl (Vancomycin 1gm) 1 gm in 250 mls @ 167 mls/hr IVPB Q12H VÍCTOR PRN Reason: Protocol Last Admin: 06/15/17 05:55 Dose: 167 mls/hr Lorazepam (Ativan) 1 mg IVP Q8H PRN; Protocol PRN Reason: Anxiety Ondansetron HCl (Zofran Inj) 4 mg IVP Q6H PRN PRN Reason: Nausea/Vomiting Last Admin: 06/14/17 09:39 Dose: 4 mg Pantoprazole Sodium (Protonix Inj) 40 mg IVP DAILY [facility] Last Admin: 06/15/17 10:36 Dose: 40 mg Thiamine HCl (Vitamin B1 Tab) 50 mg PO DAILY [facility] Last Admin: 06/15/17 10:36 Dose: 50 mg - Labs Labs: 06/15/17 06:00 06/15/17 06:00 PT 11.9 Seconds (9.9-11.8) H 06/12/17 07:30 INR 1.10 (0.93-1.08) H 06/12/17 07:30 APTT 30.4 Seconds (23.7-30.8) 06/12/17 07:30 - Constitutional Appears: Non-toxic, No Acute Distress, Chronically Ill - Head Exam Head Exam: ATRAUMATIC, NORMOCEPHALIC - Eye Exam Eye Exam: EOMI, PERRL Pupil Exam: NORMAL ACCOMODATION, PERRL - ENT Exam ENT Exam: Mucous Membranes Moist, Normal External Ear Exam, TM's Normal Bilaterally - Neck Exam Neck Exam: Full ROM, Normal Inspection - Respiratory Exam Respiratory Exam: Clear to Ausculation Bilateral, NORMAL BREATHING PATTERN. absent: Rales, Rhonchi, Wheezes - Cardiovascular Exam Cardiovascular Exam: REGULAR RHYTHM, RRR, +S1, +S2 - GI/Abdominal Exam GI & Abdominal Exam: Soft, Normal Bowel Sounds. absent: Distended, Tenderness - Extremities Exam Extremities Exam: Full ROM, Normal Inspection - Neurological Exam Neurological Exam: Alert, Awake, CN II-XII Intact, Oriented x3 - Psychiatric Exam Psychiatric exam: Normal Affect, Normal Mood - Skin Skin Exam: Intact, Normal Color Assessment and Plan - Assessment and Plan (Free Text) Assessment: 47 yo male with growth of Gram Positive Cocci in Clusters. On Unasyn currently. Added Vancomycin to the patient's regimen. Supportive care. Patient with no permanent place of residence at this time. On CT and ultrasound of the abdomen, there is distension of the gallbladder and CBD. Will need echocardiogram to r/o endocarditis. Organism growth will also determine length of antibiotic therapy. Cultures growing Aerococcus Viridans. On rare occassions, this organisms can cause endocarditis and UTIs. If negative , can consider use of Augmentin 875 mg BID or Clindamycin 300 mg TID for treatment of up to 14 days. Supportive care. Thank you for allowing me to participate in the care of this patient, we will follow with you.
[2017-06-16] MEDS: Vancomycin 1gm in NS 250ml 1 GM/250 ML BAG IVPB SCH (05:23)
[2017-06-16 07:02] LABS: ALBUMIN 4.3 g/dL (3.0-4.8); ALT/SGPT 182 U/L (7-56); AST/SGOT 208 U/L (15-59); BLOOD UREA NITROGEN 12 mg/dL (7-21); CALCIUM 10.1 mg/dL (8.4-10.5); GFR AFRICAN-AMERICAN > 60; GFR NON-AFRICAN AMERICAN > 60
[2017-06-16 07:05] LABS: BASO # 0.03 K/mm3 (0.0-2.0); BASO % 0.5 % (0.0-3.0); EOS # 0.2 (0.0-0.7); EOS % 2.7 % (1.5-5.0); GRAN % 48.1 % (50.0-68.0); HEMOGLOBIN 12.5 gm/dL (14.0-18.0); LYMPH # 2.1 (1.2-3.4); LYMPH % 36.2 % (22.0-35.0); MEAN CELL VOLUME 100.8 fL (80.0-105.0); MEAN CORPUSCULAR HEMOGLOBIN 34.7 pg (25.0-35.0); MEAN CORPUSCULAR HGB CONC 34.4 g/dl (31.0-37.0); MEAN PLATELET VOLUME 10.9 fl (7.0-11.0); MONO # 0.7 (0.1-0.6); MONO % 12.5 % (1.0-6.0); PLATELET COUNT 145 10^3/uL (120.0-450.0); RED CELL DISTRIBUTION WIDTH 14.3 % (11.5-14.5); WHITE BLOOD COUNT 5.8 10^3/ul (4.5-11.0)
[2017-06-16 07:49] VITALS: BP 106/77; PULSE 85; TEMP 98.4
== END 2017-06-16 12:16 | disposition home or self-care (01) | DRG 182 ==
LOC: ED 15:44 → ERH 06-11 00:30 → 3RNO 06-11 01:31 → OBSVTOIN 06-12 10:08
PROVIDERS: ADMIT Internal Medicine; ATTEND Internal Medicine
DX: K29.70 Gastritis, unspecified, without bleeding (principal); D69.6 Thrombocytopenia, unspecified; K76.0 Fatty (change of) liver, not elsewhere classified; F10.239 Alcohol dependence with withdrawal, unspecified; R07.9 Chest pain, unspecified; D64.9 Anemia, unspecified; I10 Essential (primary) hypertension; E11.9 Type 2 diabetes mellitus without complications; K62.5 Hemorrhage of anus and rectum; E87.6 Hypokalemia; K70.10 Alcoholic hepatitis without ascites; K83.8 Other specified diseases of biliary tract; K82.8 Other specified diseases of gallbladder; F17.210 Nicotine dependence, cigarettes, uncomplicated; R30.0 Dysuria; R19.7 Diarrhea, unspecified; G89.29 Other chronic pain; Z59.0 Homelessness

== ENCOUNTER 2017-06-16 19:26 | Observation (INO) | payer MEDICAID ==
[2017-06-16 19:42] VITALS: BMI 25.8
[2017-06-16] MEDS ORDERED: Vancomycin 1 gm/D5W 200 ml 1 GM/200 ML BAG IV STA (20:27)
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
[2017-06-16] MEDS ORDERED: Piperacillin/Tazobact 3.375 gm 100 ML IV STA (20:28)
[2017-06-16] MEDS ORDERED: Vancomycin 1gm in NS 250ml 1 GM/250 ML BAG IVPB STA (20:34)
[2017-06-16 21:20] LABS: ALKALINE PHOSPHATASE 171 U/L (38-133); ALT/SGPT 163 U/L (7-56); AST/SGOT 178 U/L (15-59); BILIRUBIN,TOTAL 0.6 mg/dL (0.2-1.3); BLOOD UREA NITROGEN 11 mg/dL (7-21); CALCIUM 9.4 mg/dL (8.4-10.5); CARBON DIOXIDE 20 mmol/L (21-33); CHLORIDE 98 mmol/L (98-107); GFR AFRICAN-AMERICAN > 60; GLUCOSE,RANDOM 92 mg/dL (70-110); HEMATOCRIT 32.7 % (42.0-52.0); MEAN CELL VOLUME 99.4 fL (80.0-105.0); MEAN CORPUSCULAR HGB CONC 34.3 g/dl (31.0-37.0); MEAN PLATELET VOLUME 10.2 fl (7.0-11.0); POTASSIUM 3.6 mmol/L (3.6-5.0); RED CELL DISTRIBUTION WIDTH 14.6 % (11.5-14.5); SODIUM 135 mmol/L (132-148); TOTAL PROTEIN 8.4 g/dL (5.8-8.3); WHITE BLOOD COUNT 8.1 10^3/ul (4.5-11.0)
[2017-06-17] MEDS ORDERED: Multivitamin (MVI) 10 ML, Thiamine 100 MG, Folic Acid 1 MG in Sodium Chloride 0.9% 1,00... IV ONE (01:18)
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
[2017-06-17] MEDS: Piperacillin/Tazobact 3.375 gm 100 ML IVPB SCH ×2 (05:10→12:54)
[2017-06-17 08:06] VITALS: RESP 20
[2017-06-17] MEDS: Vancomycin 1gm in NS 250ml 1 GM/250 ML BAG IVPB SCH ×2 (09:39→21:51)
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
[2017-06-18 02:01] LABS: ADD MANUAL DIFF? NO
[2017-06-18 02:17] LABS: BASO # 0.05 K/mm3 (0.0-2.0); BASO % 0.8 % (0.0-3.0); EOS # 0.2 (0.0-0.7); EOS % 2.5 % (1.5-5.0); GRAN # 3.02 (1.4-6.5); GRAN % 49.9 % (50.0-68.0); HEMATOCRIT 33.5 % (42.0-52.0); LYMPH # 1.9 (1.2-3.4); LYMPH % 30.5 % (22.0-35.0); MEAN CELL VOLUME 101.2 fL (80.0-105.0); MEAN CORPUSCULAR HEMOGLOBIN 34.1 pg (25.0-35.0); MEAN CORPUSCULAR HGB CONC 33.7 g/dl (31.0-37.0); MEAN PLATELET VOLUME 10.4 fl (7.0-11.0); MONO % 16.3 % (1.0-6.0); PLATELET COUNT 183 10^3/uL (120.0-450.0); RED CELL DISTRIBUTION WIDTH 14.9 % (11.5-14.5); WHITE BLOOD COUNT 6.1 10^3/ul (4.5-11.0)
[2017-06-18] MEDS: Vancomycin 1gm in NS 250ml 1 GM/250 ML BAG IVPB SCH (09:26)
[2017-06-18 09:29] VITALS: BP 137/100; PULSE 82; TEMP 98.1; O2SAT 99
[2017-06-18 10:03] LABS: ALKALINE PHOSPHATASE 193 U/L (38-133); ALT/SGPT 139 U/L (7-56); AST/SGOT 128 U/L (15-59); BLOOD UREA NITROGEN 9 mg/dL (7-21); CALCIUM 9.9 mg/dL (8.4-10.5); CARBON DIOXIDE 28 mmol/L (21-33); CHLORIDE 100 mmol/L (95-110); GFR AFRICAN-AMERICAN > 60; GLUCOSE,RANDOM 153 mg/dL (70-110); SODIUM 139 mmol/L (132-148); TOTAL PROTEIN 8.7 g/dL (5.8-8.3)
--- NOTE | 2017-06-18 11:07 | CP.PCM.DIS ---
<Kylie Velazquez - Last Filed: 06/18/17 12:54> Provider - Provider Date of Admission: 06/16/17 20:25 Attending physician: Samy Chowdhury MD Primary care physician: Kalpesh Mortensen MD Consults: Judi Wiseman Time Spent in preparation of Discharge (in minutes): 60 Hospital Course - Lab Results Lab Results: Micro Results 06/16/17 21:00 Blood Blood Culture - Preliminary NO GROWTH AFTER 24 HOURS 06/16/17 20:30 Blood Blood Culture - Preliminary NO GROWTH AFTER 24 HOURS Most Recent Lab Values WBC 6.1 10^3/ul (4.5-11.0) D 06/18/17 01:30 RBC 3.31 10^6/uL (3.5-6.1) L 06/18/17 01:30 Hgb 11.3 gm/dL (14.0-18.0) L 06/18/17 01:30 Hct 33.5 % (42.0-52.0) L 06/18/17 01:30 MCV 101.2 fL (80.0-105.0) 06/18/17 01:30 MCH 34.1 pg (25.0-35.0) 06/18/17 01:30 MCHC 33.7 g/dl (31.0-37.0) 06/18/17 01:30 RDW 14.9 % (11.5-14.5) H 06/18/17 01:30 Plt Count 183 10^3/uL (120.0-450.0) 06/18/17 01:30 MPV 10.4 fl (7.0-11.0) 06/18/17 01:30 Gran % 49.9 % (50.0-68.0) L 06/18/17 01:30 Lymph % (Auto) 30.5 % (22.0-35.0) 06/18/17 01:30 [place] % (Auto) 16.3 % (1.0-6.0) H 06/18/17 01:30 Eos % (Auto) 2.5 % (1.5-5.0) 06/18/17 01:30 Baso % (Auto) 0.8 % (0.0-3.0) 06/18/17 01:30 Gran # 3.02 (1.4-6.5) 06/18/17 01:30 Lymph # 1.9 (1.2-3.4) 06/18/17 01:30 [place] # 1.0 (0.1-0.6) H 06/18/17 01:30 Eos # 0.2 (0.0-0.7) 06/18/17 01:30 Baso # 0.05 K/mm3 (0.0-2.0) 06/18/17 01:30 Sodium 139 mmol/L (132-148) 06/18/17 09:20 Potassium 4.0 mmol/L (3.6-5.0) 06/18/17 09:20 Chloride 100 mmol/L (95-110) 06/18/17 09:20 Carbon Dioxide 28 mmol/L (21-33) 06/18/17 09:20 Anion Gap 15 (10-20) 06/18/17 09:20 BUN 9 mg/dL (7-21) 06/18/17 09:20 Creatinine 0.7 mg/dL (0.5-1.4) 06/18/17 09:20 Est GFR ( Amer) > 60 06/18/17 09:20 Est GFR (Non-Af Amer) > 60 06/18/17 09:20 Random Glucose 153 mg/dL (70-110) H 06/18/17 09:20 Hemoglobin A1c 5.5 % (4.2-6.5) 06/17/17 07:00 Calcium 9.9 mg/dL (8.4-10.5) 06/18/17 09:20 Total Bilirubin 1.0 mg/dL (0.2-1.3) 06/18/17 09:20 AST 128 U/L (15-59) H 06/18/17 09:20 ALT 139 U/L (7-56) H 06/18/17 09:20 Alkaline Phosphatase 193 U/L (38-133) H 06/18/17 09:20 Total Protein 8.7 g/dL (5.8-8.3) H 06/18/17 09:20 Albumin 4.5 g/dL (3.0-4.8) 06/18/17 09:20 Globulin 4.3 gm/dL 06/18/17 09:20 Albumin/Globulin Ratio 1.0 (1.1-1.8) L 06/18/17 09:20 Urine Opiates Screen Negative (NEGATIVE) 06/17/17 10:30 Urine Methadone Screen Negative (NEGATIVE) 06/17/17 10:30 Ur Barbiturates Screen Negative (NEGATIVE) 06/17/17 10:30 Ur Phencyclidine Scrn Negative (NEGATIVE) 06/17/17 10:30 Ur Amphetamines Screen Negative (NEGATIVE) 06/17/17 10:30 U Benzodiazepines Scrn Negative (NEGATIVE) 06/17/17 10:30 U Oth Cocaine Metabols Negative (NEGATIVE) 06/17/17 10:30 U Cannabinoids Screen Negative (NEGATIVE) 06/17/17 10:30 Alcohol, Quantitative 188 mg/dL (0-10) H 06/17/17 01:50 - Hospital Course Hospital Course: 47 yo M w/PMH sig for ETOH abuse, HTN, DM admitted for erythema and swelling of Left upper extremity. Pt with recently discharged from hospital for other symptoms. This hospitalization, pt seen/evaluated by ID, started on antibiotics with significant clinical improvement in symptoms. Pt stable, ready for discharge on PO antibiotic course. - Date & Time of H&P Date of H&P: 06/17/17 Time of H&P: 03:17 Discharge Exam - Head Exam Head Exam: ATRAUMATIC, NORMAL INSPECTION, NORMOCEPHALIC - Eye Exam Eye Exam: EOMI, Normal appearance - ENT Exam ENT Exam: Mucous Membranes Moist - Neck Exam Neck exam: Full Rom, Normal Inspection - Respiratory Exam Respiratory Exam: Clear to PA & Lateral, NORMAL BREATHING PATTERN, UNREMARKABLE - Cardiovascular Exam Cardiovascular Exam: REGULAR RHYTHM, +S1, +S2 - GI/Abdominal Exam GI & Abdominal Exam: Normal Bowel Sounds, Unremarkable - Extremities Exam Extremities exam: full ROM Additional comments: Minimal small erythematous area over Left anterior forearm, non tender, minimal induration, no fluctuance - Neurological Exam Neurological exam: Alert, CN II-XII Intact, Oriented x3 - Psychiatric Exam Psychiatric exam: Normal Affect, Normal Mood - Skin Skin Exam: Dry, Intact, Warm Discharge Plan - Discharge Medications Prescriptions: Amoxicillin/Clavulanate [Augmentin 875 MG-125 MG] 1 tab PO BID #28 tab Clindamycin [Cleocin] 300 mg PO Q8H #42 cap - Follow Up Plan Condition: STABLE Disposition: HOME/ ROUTINE Instructions: Cellulitis (DC), Cellulitis (GEN), Abuse of Alcohol (DC) Additional Instructions: Please take full course of antiobiotics prescribed. Avoid alcohol intake. Please follow up with the [facility] within 1-2 weeks after discharge from hospital. You are being given their contact information. Please return to hospital if you have a fevers, chills, or a recurrence of Left arm pain or redness. Referrals: [facility] at [facility] [place] [Outside] Kalpesh Mortensen MD [Primary Care Provider] - Clinical Quality Measures - Date & Time of Discharge Summary Date of Discharge Summary: 06/18/17 Time of Discharge Summary: 11:52 <Samy Chowdhury - Last Filed: 06/19/17 07:50> Provider - Provider Date of Admission: 06/16/17 20:25 Attending physician: Samy Chowdhury MD Primary care physician: Kalpesh Mortensen MD Hospital Course - Lab Results Lab Results: Micro Results 06/16/17 21:00 Blood Blood Culture - Preliminary NO GROWTH AFTER 48 HOURS 06/16/17 20:30 Blood Blood Culture - Preliminary NO GROWTH AFTER 48 HOURS Most Recent Lab Values WBC 6.1 10^3/ul (4.5-11.0) D 06/18/17 01:30 RBC 3.31 10^6/uL (3.5-6.1) L 06/18/17 01:30 Hgb 11.3 gm/dL (14.0-18.0) L 06/18/17 01:30 Hct 33.5 % (42.0-52.0) L 06/18/17 01:30 MCV 101.2 fL (80.0-105.0) 06/18/17 01:30 MCH 34.1 pg (25.0-35.0) 06/18/17 01:30 MCHC 33.7 g/dl (31.0-37.0) 06/18/17 01:30 RDW 14.9 % (11.5-14.5) H 06/18/17 01:30 Plt Count 183 10^3/uL (120.0-450.0) 06/18/17 01:30 MPV 10.4 fl (7.0-11.0) 06/18/17 01:30 Gran % 49.9 % (50.0-68.0) L 06/18/17 01:30 Lymph % (Auto) 30.5 % (22.0-35.0) 06/18/17 01:30 [place] % (Auto) 16.3 % (1.0-6.0) H 06/18/17 01:30 Eos % (Auto) 2.5 % (1.5-5.0) 06/18/17 01:30 Baso % (Auto) 0.8 % (0.0-3.0) 06/18/17 01:30 Gran # 3.02 (1.4-6.5) 06/18/17 01:30 Lymph # 1.9 (1.2-3.4) 06/18/17 01:30 [place] # 1.0 (0.1-0.6) H 06/18/17 01:30 Eos # 0.2 (0.0-0.7) 06/18/17 01:30 Baso # 0.05 K/mm3 (0.0-2.0) 06/18/17 01:30 Sodium 139 mmol/L (132-148) 06/18/17 09:20 Potassium 4.0 mmol/L (3.6-5.0) 06/18/17 09:20 Chloride 100 mmol/L (95-110) 06/18/17 09:20 Carbon Dioxide 28 mmol/L (21-33) 06/18/17 09:20 Anion Gap 15 (10-20) 06/18/17 09:20 BUN 9 mg/dL (7-21) 06/18/17 09:20 Creatinine 0.7 mg/dL (0.5-1.4) 06/18/17 09:20 Est GFR ( Amer) > 60 06/18/17 09:20 Est GFR (Non-Af Amer) > 60 06/18/17 09:20 Random Glucose 153 mg/dL (70-110) H 06/18/17 09:20 Hemoglobin A1c 5.5 % (4.2-6.5) 06/17/17 07:00 Calcium 9.9 mg/dL (8.4-10.5) 06/18/17 09:20 Total Bilirubin 1.0 mg/dL (0.2-1.3) 06/18/17 09:20 AST 128 U/L (15-59) H 06/18/17 09:20 ALT 139 U/L (7-56) H 06/18/17 09:20 Alkaline Phosphatase 193 U/L (38-133) H 06/18/17 09:20 Total Protein 8.7 g/dL (5.8-8.3) H 06/18/17 09:20 Albumin 4.5 g/dL (3.0-4.8) 06/18/17 09:20 Globulin 4.3 gm/dL 06/18/17 09:20 Albumin/Globulin Ratio 1.0 (1.1-1.8) L 06/18/17 09:20 Urine Opiates Screen Negative (NEGATIVE) 06/17/17 10:30 Urine Methadone Screen Negative (NEGATIVE) 06/17/17 10:30 Ur Barbiturates Screen Negative (NEGATIVE) 06/17/17 10:30 Ur Phencyclidine Scrn Negative (NEGATIVE) 06/17/17 10:30 Ur Amphetamines Screen Negative (NEGATIVE) 06/17/17 10:30 U Benzodiazepines Scrn Negative (NEGATIVE) 06/17/17 10:30 U Oth Cocaine Metabols Negative (NEGATIVE) 06/17/17 10:30 U Cannabinoids Screen Negative (NEGATIVE) 06/17/17 10:30 Alcohol, Quantitative 188 mg/dL (0-10) H 06/17/17 01:50 Attending/Attestation - Attestation I have personally seen and examined this patient.: Yes I have fully participated in the care of the patient.: Yes I have reviewed all pertinent clinical information, including history, physical exam and plan: Yes Notes (Text): 06/19/17 07:47 Attending note; Patient seen and examined with the resident . Patient is a 47-year-old male with a history of alcohol abuse admitted with left forearm cellulitis. Treated with IV vancomycin and Zosyn. Cellulitis improved. Will be discharged home with by mouth Augmentin and clindamycin. ID evaluation appreciated. Alcohol abuse; complete alcohol cessation is strongly advised. [facility] clinic appointment given for further follow up. Diagnosis; Left forearm cellulitis Alcohol abuse Noncompliance with follow-up
[2017-06-18] MEDS ORDERED: Pneumococcal 23-Valent Vaccine IM ONE (11:26)
--- NOTE | 2017-06-18 16:45 | CP.PCM.PN ---
Subjective - Date & Time of Evaluation Date of Evaluation: 06/18/17 Time of Evaluation: 11:00 - Subjective Subjective: Infectious Disease Follow Up: June 18, 2017 47 yo male who is homeless who presented on the last hospitalization with two day history of abdominal pain. Patient with nausea, vomiting, and diarrhea episodes at that time. The patient is homeless. Infectious Disease called for cellulitis and induration of the left forearm where the IV was inserted on the last hospitalization. Objective - Vital Signs/Intake and Output Vital Signs (last 24 hours): Temp Pulse Resp BP Pulse Ox 98.1 F 82 20 137/100 H 99 06/18/17 06:00 06/18/17 06:00 06/18/17 06:00 06/18/17 06:00 06/18/17 06:00 Intake and Output: 06/18/17 06/18/17 06:59 18:59 Intake Total 480 Output Total 650 Balance -170 - Labs Labs: 06/18/17 01:30 06/18/17 09:20 - Constitutional Appears: Non-toxic, No Acute Distress, Chronically Ill - Head Exam Head Exam: ATRAUMATIC, NORMOCEPHALIC Additional comments: poor dentition - Eye Exam Eye Exam: EOMI, PERRL Pupil Exam: NORMAL ACCOMODATION, PERRL - ENT Exam ENT Exam: Mucous Membranes Moist, Normal External Ear Exam, TM's Normal Bilaterally - Neck Exam Neck Exam: Full ROM, Normal Inspection - Respiratory Exam Respiratory Exam: Clear to Ausculation Bilateral, NORMAL BREATHING PATTERN - Cardiovascular Exam Cardiovascular Exam: REGULAR RHYTHM, RRR, +S1, +S2 - GI/Abdominal Exam GI & Abdominal Exam: Soft, Normal Bowel Sounds. absent: Distended, Tenderness - Extremities Exam Extremities Exam: Full ROM Additional comments: Induration and erythema of the left forearm. - Neurological Exam Neurological Exam: Alert, Awake, CN II-XII Intact, Oriented x3 - Psychiatric Exam Psychiatric exam: Normal Affect, Normal Mood - Skin Skin Exam: Intact Additional comments: thickened skin especially in extremities and as per extremity exam. Assessment and Plan - Assessment and Plan (Free Text) Assessment: 47 yo male with cellulitis of the left forearm. On Vancomycin IV. Supportive care. It appears to be improving. Can discharge home on Augmentin 875 mg BID for 7-10 days more. Thank you for allowing me to participate in the care of the patient, we will follow with you. Case discussed with Dr. Hare.
== END 2017-06-18 11:46 | disposition home or self-care (01) ==
LOC: ED 19:26 → EROBSV 20:25 → OBSVTOIN 06-17 00:49 → INTOOBSV 06-17 00:49 → ERH 06-17 01:15 → 3RSO 06-17 02:38
PROVIDERS: ADMIT Internal Medicine; ATTEND Internal Medicine
DX: L03.114 Cellulitis of left upper limb (principal); E11.9 Type 2 diabetes mellitus without complications; F17.210 Nicotine dependence, cigarettes, uncomplicated; F31.9 Bipolar disorder, unspecified; I10 Essential (primary) hypertension; K76.0 Fatty (change of) liver, not elsewhere classified; Z59.0 Homelessness; Z87.01 Personal history of pneumonia (recurrent); Z91.19 Patient's noncompliance with other medical treatment and regimen; K29.70 Gastritis, unspecified, without bleeding; Z87.19 Personal history of other diseases of the digestive system; R40.2412 Glasgow coma scale score 13-15, at arrival to emergency department; R31.9 Hematuria, unspecified; F10.239 Alcohol dependence with withdrawal, unspecified; Y90.6 Blood alcohol level of 120-199 mg/100 ml; Z23 Encounter for immunization
CPT/HCPCS: 36415; 80053; 80320; 80324; 80345; 80346; 80349; 80353; 80358; 80361; 83036; 83992; 85025; 85027; 87040; 90471; 90732; 96365; 96366; 96367; 96375; 96376; 99285; G0378; J2543; J3411; J7040

== ENCOUNTER 2017-06-22 18:48 | Observation (INO) | payer MEDICAID ==
[2017-06-22 19:00] VITALS: BMI 23.8
[2017-06-22 19:04] VITALS: BP 112/71; PULSE 85; RESP 16; TEMP 98; O2SAT 98
--- NOTE | 2017-06-22 20:16 | ED PDOC ---
Arrival/HPI - General Historian: Patient <Destini Nguyen PA-C - Last Filed: 06/23/17 01:47> <Eulalio Mills - Last Filed: 06/23/17 03:06> - General Chief Complaint: Alcohol Ingestion Time Seen by Provider: 06/22/17 19:13 - History of Present Illness Narrative History of Present Illness (Text): 06/22/17 20:13 49 year old male well known to the emergency department, with past medical history includes alcohol abuse, presents to the emergency department for etoh intoxication. Patient admits to drinking alcohol today. Patient states that he has no physical or psychiatric complaints, he just needs a place to sleep. Denies any trauma, injury, fever, headache, CP, abdominal pain, N/V, urinary symptoms, SI/HI. (Destini Nguyen PA-C) Past Medical History - Provider Review Nursing Documentation Reviewed: Yes - Infectious Disease Hx of Infectious Diseases: None - Tetanus Immunization Tetanus Immunization: Up to Date - Reproductive Currently : No - Past Medical History Past Medical History: No Previous - Cardiac Hx Cardiac Disorders: Yes Hx Hypertension: Yes - Pulmonary Hx Respiratory Disorders: Yes Hx Pneumonia: Yes - Neurological Hx Neurological Disorder: No - HEENT Hx HEENT Disorder: No - Renal Hx Renal Disorder: No - Endocrine/Metabolic Hx Endocrine Disorders: No - Hematological/Oncological Hx Blood Disorders: No - Integumentary Hx Dermatological Disorder: No - Musculoskeletal/Rheumatological Hx Falls: Yes - Gastrointestinal Hx Gastrointestinal Disorders: Yes (gastritis, gi bleed) - Genitourinary/Gynecological Hx Genitourinary Disorders: Yes Hx Hematuria: Yes - Psychiatric Hx Psychophysiologic Disorder: Yes Hx Bipolar Disorder: Yes Hx Depression: Yes Hx Substance Use: No - Past Surgical History Past Surgical History: No Previous - Anesthesia Hx Anesthesia: Yes Hx Anesthesia Reactions: No Hx Malignant Hyperthermia: No - Suicidal Assessment Feels Threatened In Home Enviroment: No <Destini Nguyen PA-C - Last Filed: 06/23/17 01:47> Family/Social History - Physician Review Nursing Documentation Reviewed: Yes Family/Social History: No Known Family HX Smoking Status: Light Smoker < 10 Cigarettes Daily Hx Alcohol Use: Yes Hx Substance Use: No Hx Substance Use Treatment: No <Destini Nguyen PA-C - Last Filed: 06/23/17 01:47> Allergies/Home Meds <Destini Nguyen PA-C - Last Filed: 06/23/17 01:47> <Eulalio Mills - Last Filed: 06/23/17 03:06> Allergies/Adverse Reactions: Allergies No Known Allergies Allergy (Verified 06/22/17 19:00) Home Medications: Home Meds Medication Instructions Recorded Confirmed No Known Home Med 06/22/17 06/22/17 Review of Systems - Review of Systems Constitutional: Normal, Other (chronic alcoholic, homeless). absent: Fatigue, Weight Change, Fevers Respiratory: Normal. absent: SOB, Cough, Sputum Cardiovascular: Normal. absent: Chest Pain, Palpitations, Edema Gastrointestinal: Normal. absent: Abdominal Pain, Stool Changes, Appetite Changes Musculoskeletal: Normal. absent: Arthralgias, Back Pain, Neck Pain Skin: Normal. absent: Rash, Pruritis, Skin Lesions Neurological: Normal. absent: Headache, Dizziness, Focal Weakness <Destini Nguyen PA-C - Last Filed: 06/23/17 01:47> Physical Exam Vital Signs Reviewed: Yes Temperature: Afebrile Blood Pressure: Normal Pulse: Regular Respiratory Rate: Normal Appearance: Positive for: Well-Appearing, Non-Toxic, Comfortable, Ill-Appearing , Other (+odor of etoh, +foul smelling body odor) Pain Distress: None Mental Status: Positive for: Alert and Oriented X 3 - Systems Exam Head: Present: Atraumatic, Normocephalic Pupils: Present: PERRL Extroacular Muscles: Present: EOMI Mouth: Present: Moist Mucous Membranes Pharnyx: Present: Normal. No: ERYTHEMA, EXUDATE Neck: Present: Normal Range of Motion. No: MIDLINE TENDERNESS Respiratory/Chest: Present: Clear to Auscultation. No: Good Air Exchange, Accessory Muscle Use, Wheezes Cardiovascular: Present: Regular Rate and Rhythm, Normal S1, S2. No: Murmurs Abdomen: No: Tenderness, Distention, Rebound, Guarding Upper Extremity: Present: Normal Inspection, Normal ROM Lower Extremity: Present: Normal Inspection, Normal ROM Neurological: Present: GCS=15, CN II-XII Intact Skin: Present: Warm, Dry, Normal Color. No: Rashes Psychiatric: Present: Alert, Oriented x 3, Normal Insight, Normal Concentration <Destini Nguyen PA-C - Last Filed: 06/23/17 01:47> Medical Decision Making <Destini Nguyen PA-C - Last Filed: 06/23/17 01:47> <Eulalio Mills - Last Filed: 06/23/17 03:06> ED Course and Treatment: 06/22/17 20:17 49 year old male well known to the emergency department, with past medical history includes alcohol abuse, presents to the emergency department for etoh intoxication. He admits to drinking alcohol today but has no physical or psychiatric complaints. Plan: Will observe in the ER until clinically sober. (Destini Nguyen PA-C) ED OBSERVATION Date of observation admission: 06/22/17 Time of observation admission: 19:30 <Destini Nguyen PA-C - Last Filed: 06/23/17 01:47> Discharge: Yes <Eulalio Mills - Last Filed: 06/23/17 03:06> - Observation admission statement Patient is being placed in observation because:: Of etoh intoxication pending sobriety. (Destini Nguyen PA-C) - Goals of Observation Goals of observation are:: Sobriety (Destini Nguyen PA-C) - Progress Note Progress Note: 06/22/17 20:19 Prior ER visits were reviewed, patient last seen in the ED on 06/16/17, for cellulitis of left forearm. Patient is well known to emergency room staff and has been seen on multiple occasions for alcohol intoxication. 06/23/17 01:00 Patient laying in bed in no acute distress, sleeping comfortably, breathing easy and unlabored. Patient is arousable, still intoxicated, has no complaints at this time. He is requesting to sleep until the [place] until he feels comfortable to go home. Case endorsed to Dr. Mills at 01:30 pending re-evaluation and discharge. (Destini Nguyen PA-C) - PA / [employer]EIGN [employer] TEACHER / Resident Statement MAUREEN has reviewed & agrees with the documentation as recorded. <Destini Nguyen PA-C - Last Filed: 06/23/17 01:47> - PA / FOREIGN TR[employer] TEACHER / Resident Statement MAUREEN has reviewed & agrees with the documentation as recorded. / has examined the patient and agrees with the treatment plan. <Eulalio Mills - Last Filed: 06/23/17 03:06> Disposition/Present on Arrival - Present on Arrival Any Indicators Present on Arrival: No History of DVT/PE: No History of Uncontrolled Diabetes: No Urinary Catheter: No History of Decub. Ulcer: No History Surgical Site Infection Following: None - Disposition Have Diagnosis and Disposition been Completed?: Yes Disposition Time: 01:30 <Destini Nguyen PA-C - Last Filed: 06/23/17 01:47> - Present on Arrival Any Indicators Present on Arrival: No - Disposition Have Diagnosis and Disposition been Completed?: Yes Disposition Time: 07:00 <Eulalio Mills - Last Filed: 06/23/17 03:06> - Disposition Diagnosis: Alcohol intoxication, Homeless Disposition: HOME/ ROUTINE Patient Problems: Current Active Problems Problem Status Onset Alcohol intoxication Acute Homeless Chronic Condition: STABLE
== END 2017-06-23 03:06 | disposition home or self-care (01) ==
LOC: ED 18:48 → EROBSV 19:30
PROVIDERS: ADMIT Emergency Medicine; ATTEND Emergency Medicine
DX: Z59.0 Homelessness (principal); F10.129 Alcohol abuse with intoxication, unspecified
CPT/HCPCS: 99283; G0378

== ENCOUNTER 2017-06-26 13:02 | Emergency (ER) | payer MEDICAID ==
[2017-06-26 13:03] VITALS: BMI 23.8
[2017-06-26 13:21] VITALS: TEMP 98.2; O2SAT 96
--- NOTE | 2017-06-26 14:23 | RAD ---
PROCEDURE: Radiographs of the Chest and Left Ribs. HISTORY: L side cp with palpation COMPARISON: None available. TECHNIQUE: Frontal radiograph of the chest and multiple oblique radiographs of the left ribs were obtained. FINDINGS: LEFT RIBS: No fracture or focal lesion visualized. LUNGS: Clear. PLEURA: No pneumothorax or pleural fluid. CARDIOVASCULAR: Normal sized heart. No pulmonary vascular congestion. OTHER FINDINGS: None. IMPRESSION: Unremarkable radiographs of the chest and left ribs. No left rib fracture.
--- NOTE | 2017-06-26 14:37 | ED PDOC ---
Arrival/HPI - General Chief Complaint: Cough, Cold, Congestion Time Seen by Provider: 06/26/17 13:08 Historian: Patient - History of Present Illness Narrative History of Present Illness (Text): 06/26/17 14:34 47 y.o. with a history of alcohol abuse and multiple recurrent visits to the ED for alcohol intoxication. Per EMS, the police found the patient walking wobbly in the street after drinking heavily this morning which he admitted doing. Here in the ED, he is fully awake and admits to heavy etoh use earlier in the morning. He also is c/o of a long-standing L side anterior chest pain that is worse with movement, cough, and touching it. He denies trauma to the chest. No acute symptoms otherwise. Past Medical History - Infectious Disease Hx of Infectious Diseases: None - Tetanus Immunization Tetanus Immunization: Up to Date - Reproductive Currently : No - Past Medical History Past Medical History: No Previous - Cardiac Hx Cardiac Disorders: Yes Hx Hypertension: Yes - Pulmonary Hx Respiratory Disorders: Yes Hx Pneumonia: Yes - Neurological Hx Neurological Disorder: No - HEENT Hx HEENT Disorder: No - Renal Hx Renal Disorder: No - Endocrine/Metabolic Hx Endocrine Disorders: No - Hematological/Oncological Hx Blood Disorders: No - Integumentary Hx Dermatological Disorder: No - Musculoskeletal/Rheumatological Hx Falls: Yes - Gastrointestinal Hx Gastrointestinal Disorders: Yes (gastritis, gi bleed) - Genitourinary/Gynecological Hx Genitourinary Disorders: Yes Hx Hematuria: Yes - Psychiatric Hx Psychophysiologic Disorder: Yes Hx Bipolar Disorder: Yes Hx Depression: Yes Hx Substance Use: No - Past Surgical History Past Surgical History: No Previous - Anesthesia Hx Anesthesia: Yes Hx Anesthesia Reactions: No Hx Malignant Hyperthermia: No - Suicidal Assessment Feels Threatened In Home Enviroment: No Family/Social History Family/Social History: No Known Family HX Smoking Status: Light Smoker < 10 Cigarettes Daily Hx Alcohol Use: Yes Hx Substance Use: No Hx Substance Use Treatment: No Allergies/Home Meds Allergies/Adverse Reactions: Allergies No Known Allergies Allergy (Verified 06/22/17 19:00) Review of Systems - Physician Review All systems were reviewed & negative as marked: Yes - Review of Systems Constitutional: absent: Fevers Eyes: Normal ENT: Normal Respiratory: absent: SOB Cardiovascular: Chest Pain (with movement) Gastrointestinal: absent: Abdominal Pain, Nausea, Vomiting Genitourinary Male: absent: Dysuria Musculoskeletal: Other (chest pain as noted) Neurological: absent: Headache Hemo/Lymphatic: absent: Easy Bleeding, Easy Bruising Psychiatric: absent: Suicidal Ideation Physical Exam Vital Signs Temp Pulse Resp BP Pulse Ox 06/26/17 13:20 98.2 F 97 H 20 116/74 96 Temperature: Afebrile Blood Pressure: Normal Pulse: Regular Respiratory Rate: Normal Appearance: Positive for: Non-Toxic Pain Distress: None Mental Status: Positive for: Alert and Oriented X 3, other (Patient with normal speech and steady gait with his cane which is consistent with his baseline) - Systems Exam Head: Present: Atraumatic, Normocephalic Pupils: Present: PERRL Conjunctiva: Present: Normal Mouth: Present: Moist Mucous Membranes Pharnyx: Present: Normal. No: ERYTHEMA, EXUDATE Neck: Present: Normal Range of Motion Respiratory/Chest: Present: Clear to Auscultation, Good Air Exchange, Tender to Palpation (ttp anterior L chest wall around 4th ics reproducing pain). No: Respiratory Distress, Accessory Muscle Use Cardiovascular: Present: Regular Rate and Rhythm, Normal S1, S2. No: Murmurs Abdomen: Present: Normal Bowel Sounds. No: Tenderness, Distention, Peritoneal Signs Back: Present: Normal Inspection Upper Extremity: Present: Normal Inspection. No: Cyanosis, Edema Lower Extremity: Present: Normal Inspection. No: Edema Neurological: Present: GCS=15, CN II-XII Intact, Speech Normal Skin: Present: Warm, Dry, Normal Color. No: Rashes Psychiatric: Present: Alert, Oriented x 3, Normal Insight, Normal Concentration Medical Decision Making ED Course and Treatment: 06/26/17 14:39 Patient with history of etoh abuse and admitting to heavy drinking earlier; currently the patient is not clinically intoxicated with stady gait and normal speech and is fully awake. Regarding his chest pain, it is a pain that he has had on/off for months. He had a recent echo of his heart on 06/15/17, just 11 days ago, which was normal. His EKG is normal, and the pain is entirely reproducible and very atypical - highly unlikely it is cardiac. XR of the ribs and chest done today are negative - no further workup needed at this time - ok for d/c. - RAD Interpretation Radiology Orders: 06/26/17 13:11 RIBS LEFT & PA CHEST [RAD] Stat - EKG Interpretation EKG Interpretation (Text): 06/26/17 14:43 NSR @ 93; normal intervals, normal axis; no ST/T changes - Medication Orders Current Medication Orders: Discontinued Medications Ibuprofen (Motrin Tab) 600 mg PO STAT STA Stop: 06/26/17 13:13 Last Admin: 06/26/17 13:39 Dose: 600 mg Disposition/Present on Arrival - Present on Arrival Any Indicators Present on Arrival: No History of DVT/PE: No History of Uncontrolled Diabetes: No Urinary Catheter: No History of Decub. Ulcer: No History Surgical Site Infection Following: None - Disposition Have Diagnosis and Disposition been Completed?: Yes Diagnosis: Chest wall pain, Alcohol abuse Disposition: HOME/ ROUTINE Disposition Time: 14:25 Patient Plan: Discharge Condition: GOOD Discharge Instructions (ExitCare): Chest Pain (ED) Additional Instructions: Stop alcohol use. Ibuprofen for pain. Return to the emergency department if any new concerning symptoms. Prescriptions: Ibuprofen [Motrin Tab] 1 tab PO Q8H PRN #20 tab PRN Reason: Pain, Moderate (4-7) Referrals: [facility] [place] [Outside] - Follow up with primary Forms: [employer] (South [place])
[2017-06-26 16:54] VITALS: BP 105/53; PULSE 80; RESP 18
--- NOTE | 2017-06-27 00:47 | CARD ---
APPROVED REPORT EKG Measurement Heart [id number] CA 154P18 [id number] <Conclusion> Normal sinus rhythm Possible Anterior infarct, age undetermined Abnormal ECG
== END 2017-06-26 15:40 | disposition home or self-care (01) ==
LOC: ED 13:02
DX: R07.89 Other chest pain (principal); F10.10 Alcohol abuse, uncomplicated

== ENCOUNTER 2017-06-28 15:05 | Emergency (ER) | payer MEDICAID ==
[2017-06-28 15:05] VITALS: BMI 23.8
[2017-06-28 15:17] VITALS: TEMP 98.2
--- NOTE | 2017-06-28 16:10 | ED PDOC ---
Arrival/HPI - General Chief Complaint: Alcohol Ingestion Time Seen by Provider: 06/28/17 15:15 Historian: Patient, EMS - History of Present Illness Narrative History of Present Illness (Text): 06/28/17 16:07 Patient is a 47 yo male past medical history of alcohol abuse, presents to ED via ambulance after reportedly he was "drinking too much". Patient states that he had been "drinking all day". Denies headache, denies chest pain or shortness of breath. Denies abdominal pain. Denies bloody or dark urine or stool. Reports chronic right hip pain. States he has had left shoulder pain "since I fell a few weeks ago". Denies head injury or loss of consciousness. Past Medical History - Infectious Disease Hx of Infectious Diseases: None - Tetanus Immunization Tetanus Immunization: Up to Date - Reproductive Currently : No - Past Medical History Past Medical History: No Previous - Cardiac Hx Cardiac Disorders: Yes Hx Hypertension: Yes - Pulmonary Hx Respiratory Disorders: Yes Hx Pneumonia: Yes - Neurological Hx Neurological Disorder: No - HEENT Hx HEENT Disorder: No - Renal Hx Renal Disorder: No - Endocrine/Metabolic Hx Endocrine Disorders: No - Hematological/Oncological Hx Blood Disorders: No - Integumentary Hx Dermatological Disorder: No - Musculoskeletal/Rheumatological Hx Falls: Yes - Gastrointestinal Hx Gastrointestinal Disorders: Yes (gastritis, gi bleed) - Genitourinary/Gynecological Hx Genitourinary Disorders: Yes Hx Hematuria: Yes - Psychiatric Hx Psychophysiologic Disorder: Yes Hx Bipolar Disorder: Yes Hx Depression: Yes Hx Substance Use: No - Past Surgical History Past Surgical History: No Previous - Anesthesia Hx Anesthesia: Yes Hx Anesthesia Reactions: No Hx Malignant Hyperthermia: No - Suicidal Assessment Feels Threatened In Home Enviroment: No Family/Social History Smoking Status: Light Smoker < 10 Cigarettes Daily Hx Alcohol Use: Yes Frequency of alcohol use: Daily Hx Substance Use: No Hx Substance Use Treatment: No Allergies/Home Meds Allergies/Adverse Reactions: Allergies No Known Allergies Allergy (Verified 06/28/17 15:17) Home Medications: Home Meds Medication Instructions Recorded Confirmed No Known Home Med 06/28/17 06/28/17 Review of Systems - Review of Systems Constitutional: absent: Fatigue, Fevers Eyes: absent: Vision Changes ENT: absent: Hearing Changes Respiratory: absent: SOB Cardiovascular: absent: Chest Pain, Palpitations Gastrointestinal: absent: Abdominal Pain, Nausea, Vomiting Genitourinary Male: absent: Dysuria, Frequency Musculoskeletal: Other (left shoulder pain) Skin: absent: Rash Neurological: absent: Headache, Dizziness, Focal Weakness Endocrine: absent: Polyuria Hemo/Lymphatic: absent: Easy Bleeding Psychiatric: absent: Anxiety, Depression, Suicidal Ideation Physical Exam Vital Signs Reviewed: Yes Vital Signs Temp Pulse Resp BP Pulse Ox 06/28/17 21:00 84 16 115/70 93 L 06/28/17 17:16 84 17 120/78 96 06/28/17 15:16 98.2 F 97 H 19 142/89 96 Temperature: Afebrile Appearance: Positive for: Well-Appearing, Non-Toxic Pain Distress: Mild Mental Status: Positive for: Alert and Oriented X 3 - Systems Exam Head: Present: Atraumatic, Normocephalic. No: Tenderness, Ecchymosis Pupils: Present: PERRL Extroacular Muscles: Present: EOMI Mouth: Present: Moist Mucous Membranes Pharnyx: No: ERYTHEMA Neck: Present: Normal Range of Motion. No: Meningeal Signs Respiratory/Chest: Present: Clear to Auscultation, Other (palpable left chest wall tenderness with no crepitus, equal and clear breath sounds bilaterally). No: Respiratory Distress Cardiovascular: Present: Regular Rate and Rhythm, Murmurs Abdomen: No: Tenderness, Distention Rectal: No: Gross Blood Back: No: CVA Tenderness, Midline Tenderness Upper Extremity: Present: Other (mild pain with ROM of left shoulder with pain to anterior shoulder, no deformity, no clavicular pain, no bony pain to hand, there is FROM at wrist, pip, dip, ip joints, there is prior injury noted to left thumb nailbed, no bleeding or pus, no arm edema or erythema). No: Cyanosis , Edema Lower Extremity: Present: Neurovascularly Intact. No: CALF TENDERNESS Neurological: Present: Speech Normal, Motor Func Grossly Intact, Normal Sensory Function Skin: Present: Warm Psychiatric: Present: Alert, Oriented x 3, Normal Insight, Normal Concentration , Normal Affect, Normal Mood Medical Decision Making ED Course and Treatment: Patient is alert, oriented, conversive in the ED. No respiratory distress noted. No acute trauma noted. He admits to drinking, but is not tremulous or tachycardic. He complains of left shoulder pain from fall several weeks ago. 08/11/17 16:19 Radiographs of the Left Shoulder Creator : Wallace Zaman MD FINDINGS: BONES: Normal. No fracture. JOINTS: Normal. Glenohumeral and acromioclavicular joints preserved. No osteoarthritis. SOFT TISSUES: Normal. OTHER FINDINGS: None. IMPRESSION: No acute findings related to/accounting for the clinical presentation. 06/28/17 22:27 Continued serial exams. On reassessment he has eaten, can ambulate with cane, has no chest pain or sob, no fever, no respiratory distress. Have advised need for AA follow-up and risks of alcohol abuse reviewed with patient. No headache or focal neuro deficits on re-examination. - RAD Interpretation Radiology Orders: 06/28/17 15:28 SHOULDER LEFT [RAD] Stat Disposition/Present on Arrival - Present on Arrival Any Indicators Present on Arrival: No History of DVT/PE: No History of Uncontrolled Diabetes: No Urinary Catheter: No History of Decub. Ulcer: No History Surgical Site Infection Following: None - Disposition Have Diagnosis and Disposition been Completed?: Yes Diagnosis: Alcohol intoxication, Shoulder pain Disposition: HOME/ ROUTINE Disposition Time: 22:29 Patient Plan: Discharge Condition: GOOD Discharge Instructions (ExitCare): Alcohol Intoxication (ED), Shoulder Pain (ED ) Additional Instructions: For any fevers, any dark or bloody stools, any arm or leg redness or swelling, any chest pain or shortness of breath, any headaches, any numbness or tingling, ANY new or persistent symptoms, get rechecked. Follow-up with clinic, AA as discussed. Referrals: Kalpesh Mortensen MD [Primary Care Provider] - Follow up with primary Alcoholics Anonymous [Outside] - Follow up with primary [facility] at [facility] [place] [place] [Outside] - Follow up with primary Forms: [employer] (Ukrainian)
--- NOTE | 2017-06-28 16:18 | RAD ---
PROCEDURE: Radiographs of the Left Shoulder HISTORY: Pain. No history of recent/ related trauma provided COMPARISON: No prior. FINDINGS: BONES: Normal. No fracture. JOINTS: Normal. Glenohumeral and acromioclavicular joints preserved. No osteoarthritis. SOFT TISSUES: Normal. OTHER FINDINGS: None. IMPRESSION: No acute findings related to/accounting for the clinical presentation.
[2017-06-28 17:16] VITALS: PULSE 84
[2017-06-28 21:31] VITALS: BP 115/70
[2017-06-28 22:36] VITALS: RESP 18; O2SAT 99
== END 2017-06-28 22:36 | disposition home or self-care (01) ==
LOC: ED 15:05
DX: F10.129 Alcohol abuse with intoxication, unspecified (principal); M25.512 Pain in left shoulder

== ENCOUNTER 2017-07-02 11:27 | Observation (INO) | payer MEDICAID ==
[2017-07-02 11:27] VITALS: BMI 23.8
[2017-07-02 11:46] VITALS: TEMP 98.3
--- NOTE | 2017-07-02 11:54 | ED PDOC ---
Arrival/HPI - General Time Seen by Provider: 07/02/17 11:39 Historian: Patient EM Caveat: Intoxicated - History of Present Illness Narrative History of Present Illness (Text): 07/02/17 11:50 A 47 year old homeless male, whose past medical history includes etoh abuse, gastritis, chronic abdominal pain and chronic chest pain, presents to the emergency department for intoxication with chest pain, which has been long- standing. The pain is the same as his chronic pain, worse with movement and inspiration, and cough. He is also feeling L shoulder pain, which was evaluated previously, also worse with movement; unsure if injured. The patient admits to drinking since 5:30 am this morning and hitting his head 2 days ago. He denies any back pain, vision changes, fever, diarrhea, cough, or any other complaints at this time. Time/Duration: 4-6 hours Symptom Onset: Other Past Medical History - Provider Review Nursing Documentation Reviewed: Yes - Infectious Disease Hx of Infectious Diseases: None - Tetanus Immunization Tetanus Immunization: Up to Date - Reproductive Currently : No - Past Medical History Past Medical History: No Previous - Cardiac Hx Cardiac Disorders: Yes Hx Hypertension: Yes - Pulmonary Hx Respiratory Disorders: Yes Hx Pneumonia: Yes - Neurological Hx Neurological Disorder: No - HEENT Hx HEENT Disorder: No - Renal Hx Renal Disorder: No - Endocrine/Metabolic Hx Endocrine Disorders: No - Hematological/Oncological Hx Blood Disorders: No - Integumentary Hx Dermatological Disorder: No - Musculoskeletal/Rheumatological Hx Falls: Yes - Gastrointestinal Hx Gastrointestinal Disorders: Yes (gastritis, gi bleed) - Genitourinary/Gynecological Hx Genitourinary Disorders: Yes Hx Hematuria: Yes - Psychiatric Hx Psychophysiologic Disorder: Yes Hx Bipolar Disorder: Yes Hx Depression: Yes Hx Substance Use: No - Past Surgical History Past Surgical History: No Previous - Anesthesia Hx Anesthesia: Yes Hx Anesthesia Reactions: No Hx Malignant Hyperthermia: No - Suicidal Assessment Feels Threatened In Home Enviroment: No Family/Social History - Physician Review Nursing Documentation Reviewed: Yes Family/Social History: No Known Family HX Smoking Status: Light Smoker < 10 Cigarettes Daily Hx Alcohol Use: Yes Hx Substance Use: No Hx Substance Use Treatment: No Allergies/Home Meds Allergies/Adverse Reactions: Allergies No Known Allergies Allergy (Verified 06/28/17 15:17) Review of Systems - Physician Review All systems were reviewed & negative as marked: Yes - Review of Systems Systems not reviewed;Unavailable: Intoxicated Constitutional: absent: Fevers Eyes: absent: Vision Changes Respiratory: absent: Cough Cardiovascular: Chest Pain Gastrointestinal: Abdominal Pain (chronic, no vomiting, no changes). absent: Diarrhea, Nausea, Vomiting Neurological: Headache (fell and hit head 2 days ago) Physical Exam - Physical Exam Physical Exam Limitations: Intoxication Vital Signs Reviewed: Yes Vital Signs Temp Pulse Resp BP Pulse Ox 07/02/17 16:00 85 18 108/72 98 07/02/17 14:32 89 16 107/72 96 07/02/17 12:38 90 16 109/75 97 07/02/17 11:42 98.3 F 92 H 16 107/72 97 Temperature: Afebrile Blood Pressure: Normal Pulse: Tachycardic Respiratory Rate: Normal Appearance: Positive for: Non-Toxic Pain Distress: None Mental Status: Positive for: other (Intoxicated) - Systems Exam Head: Present: Normocephalic, Abrasion (small abrasion to the mid portion of forehead; no laceration ). No: Swelling, Ecchymosis, Laceration Pupils: Present: PERRL Conjunctiva: Present: Normal Mouth: Present: Moist Mucous Membranes Pharnyx: Present: Normal Neck: Present: Normal Range of Motion Respiratory/Chest: Present: Clear to Auscultation, Good Air Exchange, Tender to Palpation (left side chest tender to palpation; (Chest pain is long-standing and worsens with movement and palpitation; no new acute changes)). No: Respiratory Distress, Accessory Muscle Use Cardiovascular: Present: Regular Rate and Rhythm, Normal S1, S2. No: Murmurs Abdomen: Present: Tenderness (mild tenderness in the epigastric area), Normal Bowel Sounds. No: Distention, Peritoneal Signs Back: Present: Normal Inspection Upper Extremity: Present: Normal Inspection. No: Cyanosis, Edema Lower Extremity: Present: Normal Inspection. No: Edema Neurological: Present: GCS=15, CN II-XII Intact, Speech Normal Skin: Present: Warm, Dry, Normal Color. No: Rashes Psychiatric: Present: Alert, Oriented x 3 Medical Decision Making ED Course and Treatment: 07/02/17 11:50 Impression: A 47 year old male pending sobriety with no acute complaints. He has chronic chest pain and abominal pain, which have been evaluated in the past and is supposed to follow up for outpatient but has not. Patient reports fall and hit head. Plan: -- Head CT -- EKG -- Pepcid -- Emergency Department Observation -- Reassess and disposition Prior Visits: Notes and results from previous visits were reviewed. The patient was last seen in the emergency department on 06/28/17, for alcohol intoxication. The patient was discharged routine home. Progress Notes: EKG: NSR @ 88; no ST/T changes; normal intervals, normal axis. The patient's chest pain is long-standing and worsens with movement and palpation; no new acute changes. The patient just had a recent echocardiogram last month and the results were entirely unremarkable. The patient also recently received a chest xray, shoulder xray, and rib xray last week for pain, results were "no acute fracture or findings". EKG is negative and the patient will not require an new work up at this time. Patient's recent admission for abdominal pain last month was also reviewed. He had an old bile duct dilatation which was unchanged from previous but no other acute findings were noted on workup. He was evaluated by Dr. Timmons, GI, who receommended sobriety for the patient and outpatient EGD and colonoscopy to be done pending sobriety. Patient with no new changes and has not followed up and continues to drink heavily. - Medication Orders Current Medication Orders: Discontinued Medications Famotidine (Pepcid) 40 mg PO STAT STA Stop: 07/02/17 11:57 Last Admin: 07/02/17 12:20 Dose: 40 mg ED OBSERVATION Discharge: Yes Date of observation admission: 07/02/17 Time of observation admission: 11:50 - Observation admission statement Patient is being placed in observation because:: He is intoxicated and needs re-evaluation and observation till sobriety. - Goals of Observation Goals of observation are:: Patient is intoxicated and ultimate goal is sobriety. - Progress Note Progress Note: 07/02/17 11:50 The patient is mild discomfort due to chronic pain, he is currently pending sobriety. 07/02/17 13:[address] shows no acute findings. Patient is sleeping comfortably at this time. 07/02/17 14:24 Patient is resting comfortably. 07/02/17 15:48 Patient is resting comfortably. 07/02/17 17:05 Patient is now fully awake, alert, and oriented x 3 with steady gait (with his cane) and normal speech. He also says that the pepcid resolved his epigastric pain - will dc home on pepcid and recommend etoh cessation. - PA / [employer]ER / Resident Statement MD/DO has reviewed & agrees with the documentation as recorded. - Scribe Statement The provider has reviewed the documentation as recorded by the Scribe Naty Guevara Provider Scribe Attestation: All medical record entries made by the Tedibaudi were at my direction and personally dictated by me. I have reviewed the chart and agree that the record accurately reflects my personal performance of the history, physical exam, medical decision making, and the department course for this patient. I have also personally directed, reviewed, and agree with the discharge instructions and disposition. Disposition/Present on Arrival - Present on Arrival Any Indicators Present on Arrival: No History of DVT/PE: No History of Uncontrolled Diabetes: No Urinary Catheter: No History of Decub. Ulcer: No History Surgical Site Infection Following: None - Disposition Have Diagnosis and Disposition been Completed?: Yes Diagnosis: Alcohol intoxication, Chronic epigastric pain Disposition: HOME/ ROUTINE Disposition Time: 11:50 Patient Plan: Discharge Patient Problems: Current Active Problems Problem Status Onset Alcohol intoxication Acute Chronic epigastric pain Acute Gastritis Chronic Condition: GOOD
--- NOTE | 2017-07-02 12:40 | CT ---
PROCEDURE: CT HEAD WITHOUT CONTRAST. HISTORY: hit head, etoh COMPARISON: 12/11/2016 TECHNIQUE: Axial computed tomography images were obtained through the head/brain without intravenous contrast. Radiation dose: Total exam DLP = 700 mGy-cm. This CT exam was performed using one or more of the following dose reduction techniques: Automated exposure control, adjustment of the mA and/or kV according to patient size, and/or use of iterative reconstruction technique. FINDINGS: HEMORRHAGE: No intracranial hemorrhage. BRAIN: No mass effect or edema. No atrophy or chronic microvascular ischemic changes. VENTRICLES: Unremarkable. No hydrocephalus. CALVARIUM: Unremarkable. PARANASAL SINUSES: Mild inflammatory changes MASTOID AIR CELLS: Unremarkable as visualized. No inflammatory changes. OTHER FINDINGS: None. IMPRESSION: No acute intracranial findings
[2017-07-02 17:06] VITALS: BP 108/72; PULSE 85; RESP 18; O2SAT 98
--- NOTE | 2017-07-02 21:37 | CARD ---
APPROVED REPORT EKG Measurement Heart [id number] CT 208P63 [id number] <Conclusion> Normal sinus rhythm Poor R Progression V1-V2.
== END 2017-07-02 17:11 | disposition home or self-care (01) ==
LOC: ED 11:27 → EROBSV 11:50
PROVIDERS: ADMIT Emergency Medicine; ATTEND Emergency Medicine
DX: F10.129 Alcohol abuse with intoxication, unspecified (principal); R10.13 Epigastric pain; G89.29 Other chronic pain; I10 Essential (primary) hypertension; F17.210 Nicotine dependence, cigarettes, uncomplicated
CPT/HCPCS: 70450; 93005; 99285; G0378

== ENCOUNTER 2017-07-03 18:01 | Emergency (ER) | payer MEDICAID ==
[2017-07-03 18:01] VITALS: BMI 23.8
--- NOTE | 2017-07-03 18:19 | ED PDOC ---
Arrival/HPI - General Time Seen by Provider: 07/03/17 18:05 Historian: Patient - History of Present Illness Narrative History of Present Illness (Text): 07/03/17 18:16 Angelo Mccormick is a 47 year old male, with a history of homelessness, alcohol abuse , gastritis, and chronic abdominal pain, presents to the emergency department for intoxication, chest pain and left shoulder pain. Reports that chest pain is worse with deep inspiration and movement. Patient was evaluated yesterday for similar complaints and was discharged home. He had a recent workup inpatient for the cp which was unremarkable. Admits to drinking alcohol since 6 a.m. today. There are no acute complaints. Denies any fever, chills, headache, shortness of breath, dizziness, nausea, vomiting, diarrhea or any other complaints at this time. Symptom Onset: Gradual Severity Level: Mild Activities at Onset: Light Past Medical History - Provider Review Nursing Documentation Reviewed: Yes - Infectious Disease Hx of Infectious Diseases: None - Tetanus Immunization Tetanus Immunization: Up to Date - Reproductive Currently : No - Past Medical History Past Medical History: No Previous - Cardiac Hx Cardiac Disorders: Yes Hx Hypertension: Yes - Pulmonary Hx Respiratory Disorders: Yes Hx Pneumonia: Yes - Neurological Hx Neurological Disorder: No - HEENT Hx HEENT Disorder: No - Renal Hx Renal Disorder: No - Endocrine/Metabolic Hx Endocrine Disorders: No - Hematological/Oncological Hx Blood Disorders: No - Integumentary Hx Dermatological Disorder: No - Musculoskeletal/Rheumatological Hx Falls: Yes - Gastrointestinal Hx Gastrointestinal Disorders: Yes (gastritis, gi bleed) - Genitourinary/Gynecological Hx Genitourinary Disorders: Yes Hx Hematuria: Yes - Psychiatric Hx Psychophysiologic Disorder: Yes Hx Bipolar Disorder: Yes Hx Depression: Yes Hx Substance Use: No - Past Surgical History Past Surgical History: No Previous - Anesthesia Hx Anesthesia: Yes Hx Anesthesia Reactions: No Hx Malignant Hyperthermia: No - Suicidal Assessment Feels Threatened In Home Enviroment: No Family/Social History - Physician Review Nursing Documentation Reviewed: Yes Family/Social History: No Known Family HX Smoking Status: Light Smoker < 10 Cigarettes Daily Hx Alcohol Use: Yes Hx Substance Use: No Hx Substance Use Treatment: No Allergies/Home Meds Allergies/Adverse Reactions: Allergies No Known Allergies Allergy (Verified 07/03/17 18:23) Home Medications: Home Meds Medication Instructions Recorded Confirmed No Known Home Med 07/03/17 07/03/17 Review of Systems - Physician Review All systems were reviewed & negative as marked: Yes - Review of Systems Constitutional: Normal ENT: Normal Respiratory: Normal Cardiovascular: Chest Pain (worse with movement and inspiration and movement). absent: Palpitations Gastrointestinal: Other (no changes from baseline) Musculoskeletal: Other (left shoulder pain ) Neurological: Normal. absent: Headache, Dizziness Physical Exam Vital Signs Reviewed: Yes Vital Signs Temp Pulse Resp BP Pulse Ox 07/03/17 18:22 98.5 F 97 H 15 123/87 94 L Temperature: Afebrile Blood Pressure: Normal Pulse: Regular Respiratory Rate: Normal Appearance: Positive for: Non-Toxic, Other (disheveled, AOB, normal speech) Pain Distress: None Mental Status: Positive for: Alert and Oriented X 3 - Systems Exam Head: Present: Atraumatic, Normocephalic Pupils: Present: PERRL Conjunctiva: Present: Normal Mouth: Present: Moist Mucous Membranes Pharnyx: Present: Normal. No: ERYTHEMA, EXUDATE Respiratory/Chest: Present: Clear to Auscultation, Good Air Exchange. No: Respiratory Distress, Accessory Muscle Use Cardiovascular: Present: Regular Rate and Rhythm, Normal S1, S2. No: Murmurs Abdomen: Present: Normal Bowel Sounds. No: Tenderness, Distention, Peritoneal Signs Upper Extremity: Present: Normal Inspection, Normal ROM, NORMAL PULSES, Neurovascularly Intact, Capillary Refill < 2s. No: Cyanosis, Edema, Tenderness , Swelling, Erythema Lower Extremity: Present: Normal Inspection. No: Edema Neurological: Present: GCS=15, CN II-XII Intact, Speech Normal Skin: Present: Warm, Dry, Normal Color. No: Rashes Psychiatric: Present: Alert, Oriented x 3 Medical Decision Making ED Course and Treatment: 07/03/17 18:21 Impression: A 47 year old male who presents to the emergency department for intoxication, chest pain and left shoulder pain. The chest pain is a chronic chest pain that worsens with inspiration and movement. Progress Notes: 07/03/17 19:45 NSR @ 95 bpm. Normal Beeler. Normal interval. 07/03/17 19:52 Patient was brought in by EMS for etoh abuse. The chest pain is consistent with a likely muscular component and is atypical and inlikely cardiac. He had a normal echo and normal enzymes recently. He had a negative Xr of the left shoulder a few days ago. He had a GI evaluation while here at [facility] last month and was instructed to f/u with GI after etoh cessation and was given a script for zantac yesterday. Patient is sober at this time with normal speech and normal gait with no acute changes - ok for d/c. - Scribe Statement The provider has reviewed the documentation as recorded by the Scribe Ruperto Chong Provider Attestation: Provider Scribe Attestation: All medical record entries made by the Scribe were at my direction and personally dictated by me. I have reviewed the chart and agree that the record accurately reflects my personal performance of the history, physical exam, medical decision making, and the department course for this patient. I have also personally directed, reviewed, and agree with the discharge instructions and disposition. Disposition/Present on Arrival - Present on Arrival Any Indicators Present on Arrival: No History of DVT/PE: No History of Uncontrolled Diabetes: No Urinary Catheter: No History Surgical Site Infection Following: None - Disposition Have Diagnosis and Disposition been Completed?: Yes Diagnosis: Alcohol intoxication, Left shoulder pain Disposition: HOME/ ROUTINE Disposition Time: 19:50 Patient Plan: Discharge Patient Problems: Current Active Problems Problem Status Onset Alcohol intoxication Acute Left shoulder pain Acute Condition: GOOD Discharge Instructions (ExitCare): Alcohol Intoxication (DC) Additional Instructions: Stop alcohol use. Make sure you take the zantac as prescribed yesterday. Tylenol or ibuprofen for the shoulder pain or chest pain. Follow up with gastroenterology. Return to the emergency department if any new concerning symptoms. Referrals: Mello Timmons MD [Staff Provider] - Follow up with primary
[2017-07-03 18:23] VITALS: TEMP 98.5
[2017-07-03 20:05] VITALS: BP 134/90; PULSE 85; RESP 16; O2SAT 98
--- NOTE | 2017-07-04 11:53 | CARD ---
APPROVED REPORT EKG Measurement Heart [id number] <Conclusion> Normal sinus rhythm Normal ECG
== END 2017-07-03 20:05 | disposition home or self-care (01) ==
LOC: ED 18:01
DX: F10.129 Alcohol abuse with intoxication, unspecified (principal); M25.512 Pain in left shoulder

== ENCOUNTER 2017-07-04 19:39 | Emergency (ER) | payer MEDICAID ==
[2017-07-04 19:39] VITALS: BMI 23.8
[2017-07-04 20:12] VITALS: BP 122/76; PULSE 78; RESP 18; TEMP 98.2; O2SAT 99
== END 2017-07-04 22:56 | disposition left against medical advice (07) ==
LOC: ED 19:39
DX: Z02.89 Encounter for other administrative examinations (principal); F10.129 Alcohol abuse with intoxication, unspecified

== ENCOUNTER 2017-07-05 11:00 | Emergency (ER) | payer MEDICAID ==
[2017-07-05 11:25] VITALS: BMI 27.8
[2017-07-05 11:28] VITALS: TEMP 98.1
--- NOTE | 2017-07-05 11:49 | ED PDOC ---
Arrival/HPI - General Chief Complaint: Upper Extremity Problem/Injury Time Seen by Provider: 07/05/17 11:20 Historian: Patient - History of Present Illness Narrative History of Present Illness (Text): 07/05/17 11:43 Angelo Mccormick is a 47 year old male, with a history of alcohol abuse and pancreatitis, presents to the emergency department complaining of left shoulder pain. He was evaluated at [facility] for similar complains recently and was discharged after unremarkable workup. States he fell onto his left shoulder couple of hours prior, which re-aggravated the symptoms. Denies any fever, chills, chest pain, difficulty breathing, abdominal pain, nausea, vomiting, diarrhea, or any other complaints. Time/Duration: 1-3 hours Severity Level: Mild Activities at Onset: Light Past Medical History - Provider Review Nursing Documentation Reviewed: Yes - Infectious Disease Hx of Infectious Diseases: None - Tetanus Immunization Tetanus Immunization: Up to Date - Reproductive Currently : No - Past Medical History Past Medical History: No Previous - Cardiac Hx Cardiac Disorders: Yes Hx Hypertension: Yes - Pulmonary Hx Respiratory Disorders: Yes Hx Pneumonia: Yes - Neurological Hx Neurological Disorder: No - HEENT Hx HEENT Disorder: No - Renal Hx Renal Disorder: No - Endocrine/Metabolic Hx Endocrine Disorders: No - Hematological/Oncological Hx Blood Disorders: No - Integumentary Hx Dermatological Disorder: No - Musculoskeletal/Rheumatological Hx Falls: Yes - Gastrointestinal Hx Gastrointestinal Disorders: Yes (gastritis, gi bleed) - Genitourinary/Gynecological Hx Genitourinary Disorders: Yes Hx Hematuria: Yes - Psychiatric Hx Psychophysiologic Disorder: Yes Hx Bipolar Disorder: Yes Hx Depression: Yes Hx Substance Use: No - Past Surgical History Past Surgical History: No Previous - Anesthesia Hx Anesthesia: Yes Hx Anesthesia Reactions: No Hx Malignant Hyperthermia: No - Suicidal Assessment Feels Threatened In Home Enviroment: No Family/Social History - Physician Review Nursing Documentation Reviewed: Yes Family/Social History: No Known Family HX Smoking Status: Light Smoker < 10 Cigarettes Daily Hx Alcohol Use: Yes Frequency of alcohol use: Daily Hx Substance Use: No Hx Substance Use Treatment: No Allergies/Home Meds Allergies/Adverse Reactions: Allergies No Known Allergies Allergy (Verified 07/03/17 18:23) Home Medications: Home Meds Medication Instructions Recorded Confirmed No Known Home Med 07/03/17 07/05/17 Review of Systems - Physician Review All systems were reviewed & negative as marked: Yes - Review of Systems Constitutional: Normal. absent: Fatigue, Fevers Respiratory: Normal. absent: SOB, Cough, Sputum Cardiovascular: Normal. absent: Chest Pain, Palpitations Gastrointestinal: Normal. absent: Abdominal Pain, Diarrhea, Vomiting Musculoskeletal: Other (left shoulder pain ) Skin: Cellulitis Physical Exam Vital Signs Reviewed: Yes Vital Signs Temp Pulse Resp BP Pulse Ox 07/05/17 16:37 92 H 16 120/78 95 07/05/17 13:30 90 15 112/80 97 07/05/17 11:26 98.1 F 101 H 18 121/79 98 Temperature: Afebrile Blood Pressure: Normal Pulse: Tachycardic Respiratory Rate: Normal Appearance: Positive for: Well-Appearing, Non-Toxic, Comfortable Pain Distress: None Mental Status: Positive for: Alert and Oriented X 3 - Systems Exam Head: Present: Atraumatic, Normocephalic Pupils: Present: PERRL Conjunctiva: Present: Normal Mouth: Present: Moist Mucous Membranes Neck: Present: Normal Range of Motion Respiratory/Chest: Present: Clear to Auscultation, Good Air Exchange. No: Respiratory Distress, Accessory Muscle Use Cardiovascular: Present: Regular Rate and Rhythm, Normal S1, S2. No: Murmurs Abdomen: Present: Normal Bowel Sounds. No: Tenderness, Distention, Peritoneal Signs Upper Extremity: Present: Normal Inspection, Normal ROM, NORMAL PULSES, Neurovascularly Intact, Other (Full range of motion at shoudler. ). No: Cyanosis, Edema, Tenderness, Swelling, Deformity Lower Extremity: Present: Normal Inspection. No: Edema Neurological: Present: GCS=15, CN II-XII Intact, Speech Normal, Motor Func Grossly Intact, Normal Sensory Function Skin: Present: Warm, Dry, Normal Color. No: Rashes Psychiatric: Present: Alert, Oriented x 3, Normal Insight, Normal Concentration Medical Decision Making ED Course and Treatment: 07/05/17 11:51 Impression: A 47 year old male who presents to the emergency department complaining of left shoulder pain. Plan: -- CT Head -- Left shoulder X-ray -- Reassess and disposition Progress Notes: 07/05/17 14:29 X-ray of left shoulder Negative for fracture or dislocation. 07/05/17 17:24 pt awake alert ambulatory steady gait. - Lab Interpretations Lab Results: Lab Results 07/05/17 14:11: POC Glucose (mg/dL) 62 L - RAD Interpretation Radiology Orders: 07/05/17 11:37 HEAD W/O CONTRAST [CT] Stat SHOULDER LEFT [RAD] Stat - Scribe Statement The provider has reviewed the documentation as recorded by the Tedibe Ruperto Chong Provider Attestation: Provider Scribe Attestation: All medical record entries made by the Scribe were at my direction and personally dictated by me. I have reviewed the chart and agree that the record accurately reflects my personal performance of the history, physical exam, medical decision making, and the department course for this patient. I have also personally directed, reviewed, and agree with the discharge instructions and disposition. Disposition/Present on Arrival - Present on Arrival Any Indicators Present on Arrival: No History of DVT/PE: No History of Uncontrolled Diabetes: No Urinary Catheter: No History of Decub. Ulcer: No History Surgical Site Infection Following: None - Disposition Have Diagnosis and Disposition been Completed?: Yes Diagnosis: Alcohol abuse, Head injury, Shoulder pain Disposition: HOME/ ROUTINE Disposition Time: 04:00 Condition: STABLE Discharge Instructions (ExitCare): Abuse of Alcohol (ED) Referrals: LockerDomemaggie Resendiz, [Primary Care Provider] - Follow up with primary Forms: Bitly (Setswana)
--- NOTE | 2017-07-05 14:04 | CT ---
PROCEDURE: CT HEAD WITHOUT CONTRAST. HISTORY: fall COMPARISON: 07/02/2017 TECHNIQUE: Axial computed tomography images were obtained through the head/brain without intravenous contrast. Radiation dose: Total exam DLP = 700 mGy-cm. This CT exam was performed using one or more of the following dose reduction techniques: Automated exposure control, adjustment of the mA and/or kV according to patient size, and/or use of iterative reconstruction technique. FINDINGS: HEMORRHAGE: No intracranial hemorrhage. BRAIN: No mass effect or edema. No atrophy or chronic microvascular ischemic changes. VENTRICLES: Unremarkable. No hydrocephalus. CALVARIUM: Unremarkable. PARANASAL SINUSES: Unremarkable as visualized. No significant inflammatory changes. MASTOID AIR CELLS: Unremarkable as visualized. No inflammatory changes. OTHER FINDINGS: None. IMPRESSION: No acute findings
--- NOTE | 2017-07-05 14:12 | RAD ---
PROCEDURE: Radiographs of the Left Shoulder HISTORY: pain COMPARISON: No prior. FINDINGS: BONES: Normal. No fracture. JOINTS: Normal. Glenohumeral and acromioclavicular joints preserved. No osteoarthritis. SOFT TISSUES: Normal. OTHER FINDINGS: None. IMPRESSION: Normal radiographs of the left shoulder.
[2017-07-05 16:37] VITALS: BP 120/78; PULSE 92; RESP 16; O2SAT 95
== END 2017-07-05 17:32 | disposition home or self-care (01) ==
LOC: ED 11:00
DX: S09.90XA Unspecified injury of head, initial encounter (principal); W19.XXXA Unspecified fall, initial encounter; F10.10 Alcohol abuse, uncomplicated; M25.512 Pain in left shoulder; F17.210 Nicotine dependence, cigarettes, uncomplicated; I10 Essential (primary) hypertension

== ENCOUNTER 2017-07-07 18:50 | Emergency (ER) | payer MEDICAID ==
[2017-07-07 18:55] VITALS: BMI 27.4
[2017-07-07 19:02] VITALS: BP 139/95; PULSE 107; RESP 18; TEMP 98.6; O2SAT 96
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
== END 2017-07-07 20:33 | disposition home or self-care (01) ==
LOC: ED 18:50
DX: S60.512A Abrasion of left hand, initial encounter (principal); Y04.0XXA Assault by unarmed brawl or fight, initial encounter; Y92.410 Unspecified street and highway as the place of occurrence of the external cause

== ENCOUNTER 2017-07-08 11:19 | Observation (INO) | payer MEDICAID ==
--- NOTE | 2017-07-08 11:22 | ED PDOC ---
Arrival/HPI - General Historian: Patient - General Time Seen by Provider: 07/08/17 11:19 - History of Present Illness Narrative History of Present Illness (Text): 07/08/17 11:21 47 y/o male, pmh including chronic gastritis, chronic alcohol abuse, frequent patient of the [facility], jayden pardo c/o alcohol intoxication. Pt. apparently went to the [facility] today about 1 hour ago, request for the ambulance to bring to the [facility] as he is intoxicated. Pt. stated that he feels fine, no fall or trauma, no head or neck pain, no shakes, no nausea or vomiting, no diarrhea, no tremors. Pt. has alcohol on breath, no homicidal or suicidal ideation, no auditory or visual hallucinations, no other medical or psychological complaints. (Arsenio Rivera) Past Medical History - Provider Review Nursing Documentation Reviewed: Yes - Infectious Disease Hx of Infectious Diseases: None - Tetanus Immunization Tetanus Immunization: Up to Date - Reproductive Currently : No - Past Medical History Past Medical History: No Previous - Cardiac Hx Cardiac Disorders: Yes Hx Hypertension: Yes - Pulmonary Hx Respiratory Disorders: Yes Hx Pneumonia: Yes - Neurological Hx Neurological Disorder: No - HEENT Hx HEENT Disorder: No - Renal Hx Renal Disorder: No - Endocrine/Metabolic Hx Endocrine Disorders: No - Hematological/Oncological Hx Blood Disorders: No - Integumentary Hx Dermatological Disorder: No - Musculoskeletal/Rheumatological Hx Falls: Yes - Gastrointestinal Hx Gastrointestinal Disorders: Yes (gastritis, gi bleed) - Genitourinary/Gynecological Hx Genitourinary Disorders: Yes Hx Hematuria: Yes - Psychiatric Hx Psychophysiologic Disorder: Yes Hx Bipolar Disorder: Yes Hx Depression: Yes Hx Substance Use: No - Past Surgical History Past Surgical History: No Previous - Anesthesia Hx Anesthesia: Yes Hx Anesthesia Reactions: No Hx Malignant Hyperthermia: No - Suicidal Assessment Feels Threatened In Home Enviroment: No Family/Social History - Physician Review Nursing Documentation Reviewed: Yes Family/Social History: Unknown Family HX Smoking Status: Light Smoker < 10 Cigarettes Daily Hx Alcohol Use: Yes Hx Substance Use: No Hx Substance Use Treatment: No Allergies/Home Meds Allergies/Adverse Reactions: Allergies No Known Allergies Allergy (Verified 07/03/17 18:23) Home Medications: Home Meds Medication Instructions Recorded Confirmed No Known Home Med 07/03/17 07/08/17 Review of Systems - Review of Systems Constitutional: absent: Fatigue, Fevers Respiratory: absent: SOB, Cough Cardiovascular: absent: Chest Pain Gastrointestinal: absent: Abdominal Pain, Diarrhea, Nausea, Vomiting Skin: absent: Rash, Pruritis, Skin Lesions Neurological: absent: Headache, Dizziness, Speech Changes, Facial Droop, Seizure Physical Exam - Systems Exam Head: Present: Atraumatic, Normocephalic Pupils: Present: PERRL Extroacular Muscles: Present: EOMI Conjunctiva: Present: Normal Mouth: Present: Moist Mucous Membranes Neck: Present: Normal Range of Motion Respiratory/Chest: Present: Clear to Auscultation, Good Air Exchange. No: Respiratory Distress, Accessory Muscle Use Cardiovascular: Present: Regular Rate and Rhythm, Normal S1, S2. No: Murmurs Abdomen: Present: Normal Bowel Sounds. No: Tenderness, Distention, Peritoneal Signs Back: Present: Normal Inspection Upper Extremity: Present: Normal Inspection. No: Cyanosis, Edema Lower Extremity: Present: Normal Inspection. No: Edema Neurological: Present: GCS=15, Speech Normal, Motor Func Grossly Intact, Gait Normal, Memory Normal Skin: Present: Warm, Dry, Normal Color. No: Rashes Psychiatric: Present: Alert, Oriented x 3, Normal Insight, Normal Concentration Vital Signs Temp Pulse Resp BP Pulse Ox 07/08/17 16:00 100 H 18 118/75 95 07/08/17 11:19 97.6 F 98 H 18 136/84 96 Medical Decision Making ED Course and Treatment: 07/08/17 11:45 I was available for consultation during PA evaluation. The chart was reviewed by me, and I agree with disposition. The documented history was done by the physician shift boss. The documented physical exam was done by the physician shift boss. The documented procedures were done by the physician shift boss. (Nico Bhagat) 07/08/17 11:30 -FS 111 -Observe until sober (Arsenio Rivera) - Lab Interpretations Lab Results: Lab Results 07/08/17 11:29: POC Glucose (mg/dL) 111 H ED OBSERVATION Date of observation admission: 07/08/17 Time of observation admission: 12:36 - Observation admission statement Patient is being placed in observation because:: alcohol intoxication (Arsenio Rivera) - Goals of Observation Goals of observation are:: sober (Arsenio Rivera) - Progress Note Progress Note: 07/08/17 12:00 -Pt. is sleeping, resting well 07/08/17 14:00 -Pt. is sleeping, no medical or psychological complaints. 07/08/17 16:38 -Pt. is awake, admits drinking, stated that he feels completely well, food and juice given, walking independently with normal gait and posture, will discharge home. -Discharge home with education on follow up with your own pmd, stop drinking and being publicly intoxicated, follow up with your own pmd within 2 days, return to the ER for any new or worsening signs or symptoms. (Arsenio Rivera) - PA / TOOL GRINDER OPERATOR EXTERNAL / Resident Statement MD/DO has reviewed & agrees with the documentation as recorded. Disposition/Present on Arrival - Present on Arrival Any Indicators Present on Arrival: No History of DVT/PE: No History of Uncontrolled Diabetes: No Urinary Catheter: No History of Decub. Ulcer: No History Surgical Site Infection Following: None - Disposition Have Diagnosis and Disposition been Completed?: Yes Disposition Time: 12:37 Patient Plan: Discharge - Disposition Diagnosis: Alcohol intoxication Disposition: HOME/ ROUTINE Patient Problems: Current Active Problems Problem Status Onset Alcohol intoxication Acute Condition: IMPROVED
[2017-07-08 11:25] VITALS: BMI 27.8
[2017-07-08 11:42] VITALS: RESP 18; TEMP 97.6
[2017-07-08 16:29] VITALS: BP 118/75; PULSE 100; O2SAT 95
== END 2017-07-08 16:40 | disposition home or self-care (01) ==
LOC: ED 11:19 → EROBSV 13:05
PROVIDERS: ADMIT Emergency Medicine; ATTEND Internal Medicine Gastroenterology
DX: F10.129 Alcohol abuse with intoxication, unspecified (principal)
CPT/HCPCS: 82948; 99283; G0378

== ENCOUNTER 2017-07-09 09:40 | Emergency (ER) | payer MEDICAID ==
[2017-07-09 09:41] VITALS: BMI 27.8
[2017-07-09 09:49] VITALS: BP 130/83; PULSE 90; RESP 15; TEMP 98.4; O2SAT 96
--- NOTE | 2017-07-09 10:02 | ED PDOC ---
Arrival/HPI - General Chief Complaint: Alcohol Ingestion Time Seen by Provider: 07/09/17 09:57 Historian: Patient - History of Present Illness Narrative History of Present Illness (Text): 07/09/17 09:58 47 y/o male, pmh including chronic gastritis, psychiatric history including chronic alcohol abuse, nkda, biba alcohol intoxication. Pt. has alcohol on his breath, admits chronic left shoulder pain which he had xray already and he is not here for the left shoulder pain. Pt. stated that he had couple drinks early this morning, just wants to sleep it off. Pt. has no homicidal or suicidal ideation, no auditory or visual hallucinations. Pt. has no chest pain or shortness of breath, no night sweat, no other medical or psychological complaints. Past Medical History - Provider Review Nursing Documentation Reviewed: Yes - Infectious Disease Hx of Infectious Diseases: None - Tetanus Immunization Tetanus Immunization: Up to Date - Reproductive Currently : No - Past Medical History Past Medical History: No Previous - Cardiac Hx Cardiac Disorders: Yes Hx Hypertension: Yes - Pulmonary Hx Respiratory Disorders: Yes Hx Pneumonia: Yes - Neurological Hx Neurological Disorder: No - HEENT Hx HEENT Disorder: No - Renal Hx Renal Disorder: No - Endocrine/Metabolic Hx Endocrine Disorders: No - Hematological/Oncological Hx Blood Disorders: No - Integumentary Hx Dermatological Disorder: No - Musculoskeletal/Rheumatological Hx Musculoskeletal Disorders: Yes Hx Falls: Yes - Gastrointestinal Hx Gastrointestinal Disorders: Yes (gastritis, gi bleed) - Genitourinary/Gynecological Hx Genitourinary Disorders: Yes Hx Hematuria: Yes - Psychiatric Hx Psychophysiologic Disorder: Yes Hx Bipolar Disorder: Yes Hx Depression: Yes Hx Substance Use: No - Past Surgical History Past Surgical History: No Previous - Anesthesia Hx Anesthesia: Yes Hx Anesthesia Reactions: No Hx Malignant Hyperthermia: No - Suicidal Assessment Feels Threatened In Home Enviroment: No Family/Social History - Physician Review Nursing Documentation Reviewed: Yes Family/Social History: Unknown Family HX Smoking Status: Former Smoker Hx Alcohol Use: Yes Frequency of alcohol use: Daily Hx Substance Use: No Hx Substance Use Treatment: No Allergies/Home Meds Allergies/Adverse Reactions: Allergies No Known Allergies Allergy (Verified 07/09/17 09:50) Home Medications: Home Meds Medication Instructions Recorded Confirmed No Known Home Med 07/03/17 07/09/17 Review of Systems - Review of Systems Constitutional: absent: Fatigue, Fevers Eyes: absent: Vision Changes ENT: absent: Hearing Changes Respiratory: absent: SOB, Cough Cardiovascular: absent: Chest Pain Gastrointestinal: absent: Abdominal Pain, Nausea, Vomiting Musculoskeletal: absent: Arthralgias, Back Pain, Myalgias Skin: absent: Rash, Pruritis Neurological: absent: Headache, Dizziness, Focal Weakness, Gait Changes Psychiatric: absent: Anxiety, Depression, Suicidal Ideation Physical Exam Vital Signs Reviewed: Yes Vital Signs Temp Pulse Resp BP Pulse Ox 07/09/17 09:48 98.4 F 90 15 130/83 96 Temperature: Afebrile Blood Pressure: Normal Pulse: Regular Respiratory Rate: Normal Appearance: Positive for: Well-Appearing, Non-Toxic, Comfortable Pain Distress: None Mental Status: Positive for: Alert and Oriented X 3 - Systems Exam Head: Present: Atraumatic, Normocephalic Pupils: Present: PERRL Extroacular Muscles: Present: EOMI Conjunctiva: Present: Normal Mouth: Present: Moist Mucous Membranes Neck: Present: Normal Range of Motion Respiratory/Chest: Present: Clear to Auscultation, Good Air Exchange. No: Respiratory Distress, Accessory Muscle Use Cardiovascular: Present: Regular Rate and Rhythm, Normal S1, S2. No: Murmurs Abdomen: Present: Normal Bowel Sounds. No: Tenderness, Distention, Peritoneal Signs Back: Present: Normal Inspection Upper Extremity: Present: Normal Inspection. No: Cyanosis, Edema Lower Extremity: Present: Normal Inspection. No: Edema Neurological: Present: GCS=15, Speech Normal, Motor Func Grossly Intact, Memory Normal Skin: Present: Warm, Dry, Normal Color. No: Rashes Psychiatric: Present: Alert, Oriented x 3, Normal Insight, Normal Concentration Medical Decision Making ED Course and Treatment: 07/09/17 10:02 -FS 83 -Observe until sober 07/09/17 11:51 -Pt. is up, walking around with normal gait and posture independently, stated that he will like to be discharged as he feels fine. -Pt. has no nausea/vomiting, no diarrhea, no chest pain or shortness of breath, no facial twitching or tongue fasciculation, no numbness or tingling. Pt. offer detox but refused. -Discharge home with education on stay hydrated, bed rest, follow up with your own pmd within 2 days, return to the ER for any new or worsening signs or symptoms. - Lab Interpretations Lab Results: Lab Results 07/09/17 10:02: POC Glucose (mg/dL) 83 - PA / MAINTENANCE CRAFTSMAN / Resident Statement MD/DO has reviewed & agrees with the documentation as recorded. Disposition/Present on Arrival - Present on Arrival Any Indicators Present on Arrival: No History of DVT/PE: No History of Uncontrolled Diabetes: No Urinary Catheter: No History of Decub. Ulcer: No History Surgical Site Infection Following: None - Disposition Have Diagnosis and Disposition been Completed?: Yes Diagnosis: Alcohol intoxication Disposition: HOME/ ROUTINE Disposition Time: 11:54 Patient Plan: Discharge Condition: GOOD Additional Instructions: -Discharge home with education on stay hydrated, bed rest, follow up with your own pmd within 2 days, return to the ER for any new or worsening signs or symptoms. Referrals: Carlos Resendiz, [Primary Care Provider] - Follow up with primary [facility] at [facility] [place] [Outside] - Follow up with primary Forms: [employer] ([place])
== END 2017-07-09 12:08 | disposition home or self-care (01) ==
LOC: ED 09:40
DX: F10.129 Alcohol abuse with intoxication, unspecified (principal); I10 Essential (primary) hypertension

== ENCOUNTER 2017-07-09 20:24 | Observation (INO) | payer MEDICAID ==
[2017-07-09 20:49] VITALS: BMI 24.2
--- NOTE | 2017-07-09 20:53 | ED PDOC ---
Arrival/HPI - General Chief Complaint: Alcohol Ingestion Time Seen by Provider: 07/09/17 20:26 - History of Present Illness Narrative History of Present Illness (Text): 07/09/17 20:51 Pt.to ED BIBA for public intoxication.Pt. with hx. chronic alcohol abuse, gastritis.Pt.admits to drinking only minimal alcohol.Denies any drug use.States he would just like to rest.Denies any somatic complaints. Past Medical History - Provider Review Nursing Documentation Reviewed: Yes - Travel History Have you recently traveled outside [place] w/in the past 3 mons?: No - Infectious Disease Hx of Infectious Diseases: None - Tetanus Immunization Tetanus Immunization: Up to Date - Reproductive Currently : No - Past Medical History Past Medical History: No Previous - Cardiac Hx Cardiac Disorders: Yes Hx Hypertension: Yes - Pulmonary Hx Respiratory Disorders: Yes Hx Pneumonia: Yes - Neurological Hx Neurological Disorder: No - HEENT Hx HEENT Disorder: No - Renal Hx Renal Disorder: No - Endocrine/Metabolic Hx Endocrine Disorders: No - Hematological/Oncological Hx Blood Disorders: No - Integumentary Hx Dermatological Disorder: No - Musculoskeletal/Rheumatological Hx Musculoskeletal Disorders: Yes Hx Falls: Yes - Gastrointestinal Hx Gastrointestinal Disorders: Yes (gastritis, gi bleed) - Genitourinary/Gynecological Hx Genitourinary Disorders: Yes Hx Hematuria: Yes - Psychiatric Hx Psychophysiologic Disorder: Yes Hx Bipolar Disorder: Yes Hx Depression: Yes Hx Substance Use: No - Past Surgical History Past Surgical History: No Previous - Anesthesia Hx Anesthesia: Yes Hx Anesthesia Reactions: No Hx Malignant Hyperthermia: No - Suicidal Assessment Feels Threatened In Home Enviroment: No Family/Social History - Physician Review Nursing Documentation Reviewed: Yes Family/Social History: No Known Family HX Smoking Status: Former Smoker Hx Alcohol Use: Yes Hx Substance Use: No Hx Substance Use Treatment: No Allergies/Home Meds Allergies/Adverse Reactions: Allergies No Known Allergies Allergy (Verified 07/09/17 20:48) Home Medications: Home Meds Medication Instructions Recorded Confirmed No Known Home Med 07/03/17 07/09/17 Review of Systems - Review of Systems Systems not reviewed;Unavailable: Intoxicated Constitutional: Normal Eyes: Normal ENT: Normal Respiratory: Normal Cardiovascular: Normal Gastrointestinal: Normal Genitourinary Male: Normal Musculoskeletal: Normal Skin: Normal Neurological: Normal Endocrine: Normal Hemo/Lymphatic: Normal Psychiatric: Normal Physical Exam Vital Signs Temp Pulse Resp BP Pulse Ox 07/09/17 20:50 98.0 F 80 16 117/90 98 07/09/17 20:49 16 Temperature: Afebrile Blood Pressure: Normal Pulse: Regular Respiratory Rate: Normal Appearance: Positive for: Well-Appearing, Non-Toxic, Comfortable Pain Distress: None Mental Status: Positive for: Alert and Oriented X 3 - Systems Exam Head: Present: Atraumatic, Normocephalic Pupils: Present: PERRL Extroacular Muscles: Present: EOMI Conjunctiva: Present: Normal Mouth: Present: Moist Mucous Membranes Neck: Present: Normal Range of Motion Respiratory/Chest: Present: Clear to Auscultation, Good Air Exchange. No: Respiratory Distress, Accessory Muscle Use Cardiovascular: Present: Regular Rate and Rhythm, Normal S1, S2. No: Murmurs Abdomen: Present: Normal Bowel Sounds. No: Tenderness, Distention, Peritoneal Signs Back: Present: Normal Inspection Upper Extremity: Present: Normal Inspection. No: Cyanosis, Edema Lower Extremity: Present: Normal Inspection. No: Edema Neurological: Present: GCS=15, CN II-XII Intact, Speech Normal, Motor Func Grossly Intact, Normal Sensory Function Skin: Present: Warm, Dry, Normal Color. No: Rashes Psychiatric: Present: Alert, Oriented x 3, Normal Insight, Normal Concentration ED OBSERVATION Discharge: Yes Date of observation admission: 07/09/17 Time of observation admission: 21:00 - Observation admission statement Patient is being placed in observation because:: alcohol intoxication - Goals of Observation Goals of observation are:: observe for sobriety any signs of withdrawal - Progress Note Progress Note: 07/09/17 21:00 07/09/17 21:28 Notified by nursing staff pt eloped from ER. Disposition/Present on Arrival - Present on Arrival Any Indicators Present on Arrival: No History of DVT/PE: No History of Uncontrolled Diabetes: No Urinary Catheter: No History Surgical Site Infection Following: None - Disposition Have Diagnosis and Disposition been Completed?: Yes Diagnosis: Alcohol abuse Disposition: ELOPEMENT - ER ONLY Disposition Time: 21:40 Condition: STABLE
[2017-07-09 21:42] VITALS: BP 117/90; PULSE 80; RESP 17; TEMP 98; O2SAT 98
== END 2017-07-09 21:45 | disposition home or self-care (01) ==
LOC: ED 20:24 → EROBSV 21:00
PROVIDERS: ADMIT Emergency Medicine; ATTEND Emergency Medicine
DX: F10.10 Alcohol abuse, uncomplicated (principal); I10 Essential (primary) hypertension
CPT/HCPCS: 99282; G0378

== ENCOUNTER 2017-07-10 13:19 | Observation (INO) | payer MEDICAID ==
--- NOTE | 2017-07-10 13:29 | ED PDOC ---
Arrival/HPI - General Time Seen by Provider: 07/10/17 13:26 - History of Present Illness Narrative History of Present Illness (Text): 07/10/17 13:28 Patient presents with slurring of speech and alcohol on breath. Admits to drinking throughout the day. Pt denies suicidal or homicidal ideations. Denies any trauma or injury. Past Medical History - Provider Review Nursing Documentation Reviewed: Yes - Infectious Disease Hx of Infectious Diseases: None - Tetanus Immunization Tetanus Immunization: Up to Date - Reproductive Currently : No - Past Medical History Past Medical History: No Previous - Cardiac Hx Cardiac Disorders: Yes Hx Hypertension: Yes - Pulmonary Hx Respiratory Disorders: Yes Hx Pneumonia: Yes - Neurological Hx Neurological Disorder: No - HEENT Hx HEENT Disorder: No - Renal Hx Renal Disorder: No - Endocrine/Metabolic Hx Endocrine Disorders: No - Hematological/Oncological Hx Blood Disorders: No - Integumentary Hx Dermatological Disorder: No - Musculoskeletal/Rheumatological Hx Musculoskeletal Disorders: Yes Hx Falls: Yes - Gastrointestinal Hx Gastrointestinal Disorders: Yes (gastritis, gi bleed) - Genitourinary/Gynecological Hx Genitourinary Disorders: Yes Hx Hematuria: Yes - Psychiatric Hx Psychophysiologic Disorder: Yes Hx Bipolar Disorder: Yes Hx Depression: Yes Hx Substance Use: No - Past Surgical History Past Surgical History: No Previous - Anesthesia Hx Anesthesia: Yes Hx Anesthesia Reactions: No Hx Malignant Hyperthermia: No - Suicidal Assessment Feels Threatened In Home Enviroment: No Family/Social History Family/Social History: Unknown Family HX Smoking Status: Former Smoker Hx Alcohol Use: Yes Hx Substance Use: No Hx Substance Use Treatment: No Allergies/Home Meds Allergies/Adverse Reactions: Allergies No Known Allergies Allergy (Verified 07/10/17 13:27) Home Medications: Home Meds Medication Instructions Recorded Confirmed No Known Home Med 07/03/17 07/10/17 Review of Systems - Review of Systems Systems not reviewed;Unavailable: Intoxicated Physical Exam - Physical Exam Narrative Physical Exam (Text): 07/10/17 13:28 pt in no distress, no airway compromise, breathing without difficulty, good insp /exp effort. No signs of head/torso/extremity trauma. Following commands without difficulty. Head: Present: Atraumatic, Normocephalic. No: Tenderness, Contusion, Swelling, Ecchymosis, Abrasion, Laceration Pupils: Present: PERRL Extroacular Muscles: Present: EOMI Conjunctiva: Present: Normal Mouth: Present: Moist Mucous Membranes Neck: Present: Normal Range of Motion. No: MIDLINE TENDERNESS, Paraspinal Tenderness Respiratory/Chest: Present: Clear to Auscultation, Good Air Exchange. No: Respiratory Distress, Accessory Muscle Use Cardiovascular: Present: Regular Rate and Rhythm, Normal S1, S2. No: Murmurs Abdomen: Present: Normal Bowel Sounds. No: Tenderness, Distention, Peritoneal Signs, Rebound, Guarding Back: Present: Normal Inspection. No: Midline Tenderness, Paraspinal Tenderness Upper Extremity: Present: Normal Inspection. No: Cyanosis, Edema Lower Extremity: Present: Normal Inspection. No: Edema Neurological: Present: GCS=15, CN II-XII Intact Skin: Present: Warm, Dry, Normal Color. No: Rashes Lymphatic: Present: OX3, NI, NC Psychiatric: Present: Alert. No: Agitated Vital Signs Reviewed: Yes Vital Signs Temp Pulse Resp BP Pulse Ox 07/10/17 15:21 95 H 17 108/78 98 07/10/17 15:05 80 16 108/78 98 07/10/17 13:26 98.2 F 94 H 18 137/87 99 Temperature: Afebrile Blood Pressure: Normal Pulse: Regular Respiratory Rate: Normal Appearance: Positive for: Well-Appearing Pain Distress: None Mental Status: No: Agitated, Lethargic ED OBSERVATION Discharge: Yes Date of observation admission: 07/10/17 Time of observation admission: 13:27 - Observation admission statement Patient is being placed in observation because:: alcohol intoxication - Goals of Observation Goals of observation are:: pending sobriety - Progress Note Progress Note: 07/10/17 17:48 Pt has been closely monitored throughout the stay in the ED. Currently pt is ANOx3 to person, place, and time. Has good insight and judgment. Denies suicidal or homicidal ideations. Pt has steady gait, ambulates without difficulty, not slurring speech. Pt able to tolerate PO without any difficulty. Patient denies any complaints at this time. Patient is not tremulous, not tachycardic, no signs or symptoms of alcohol withdrawal. Pt states he understands to return to the ER right away for new or worsening symptoms or for inability to f/u with PMD or specialist as instructed. Patient states that he fully agrees with and understands discharge instructions. States that he agrees with the plan and disposition. Verbalized and repeated discharge instructions and plan. I have given the patient opportunity to ask any additional questions. Disposition/Present on Arrival - Present on Arrival Any Indicators Present on Arrival: No History of DVT/PE: No History of Uncontrolled Diabetes: No Urinary Catheter: No History Surgical Site Infection Following: None - Disposition Have Diagnosis and Disposition been Completed?: Yes Diagnosis: Alcohol intoxication Disposition: HOME/ ROUTINE Disposition Time: 13:27 Patient Plan: Discharge Patient Problems: Current Active Problems Problem Status Onset Alcohol intoxication Acute Condition: GOOD
[2017-07-10 13:30] VITALS: TEMP 98.2; BMI 26.2
[2017-07-10 15:06] VITALS: BP 108/78
[2017-07-10 18:13] VITALS: PULSE 79; RESP 16; O2SAT 99
== END 2017-07-10 17:49 | disposition home or self-care (01) ==
LOC: ED 13:19 → EROBSV 13:29
PROVIDERS: ADMIT Emergency Medicine; ATTEND Emergency Medicine
DX: F10.129 Alcohol abuse with intoxication, unspecified (principal)
CPT/HCPCS: 82948; 99283; G0378

== ENCOUNTER 2017-07-11 19:22 | Emergency (ER) | payer MEDICAID ==
[2017-07-11 19:52] VITALS: BP 126/84; PULSE 72; RESP 20; TEMP 98.6; O2SAT 99; BMI 24.1
== END 2017-07-11 20:04 | disposition left against medical advice (07) ==
LOC: ED 19:22
DX: Z02.89 Encounter for other administrative examinations (principal); F10.10 Alcohol abuse, uncomplicated

== ENCOUNTER 2017-07-12 18:09 | Observation (INO) | payer MEDICAID ==
[2017-07-12 18:09] VITALS: BMI 24.1
[2017-07-12 18:24] VITALS: TEMP 97.6
--- NOTE | 2017-07-12 19:21 | ED PDOC ---
Arrival/HPI - General Historian: Patient <Elizabeth Jamil - Last Filed: 07/13/17 01:48> <Eulalio Mills - Last Filed: 07/13/17 05:17> - General Chief Complaint: Alcohol Ingestion Time Seen by Provider: 07/12/17 19:10 - History of Present Illness Narrative History of Present Illness (Text): 07/12/17 19:19 47-year-old male presents today stating that he was drinking today and he is tired and wants to rest in the bed for a little while. He denies chest pain or shortness of breath. He denies abdominal pain. Denies nausea vomiting diarrhea or constipation. Denies fevers or chills. (Elizabeth Jamil) Past Medical History - Provider Review Nursing Documentation Reviewed: Yes - Travel History Have you recently traveled outside [place] w/in the past 3 mons?: No - Infectious Disease Hx of Infectious Diseases: None - Tetanus Immunization Tetanus Immunization: Up to Date - Reproductive Currently : No - Past Medical History Past Medical History: No Previous - Cardiac Hx Cardiac Disorders: Yes Hx Hypertension: Yes - Pulmonary Hx Respiratory Disorders: Yes Hx Pneumonia: Yes - Neurological Hx Neurological Disorder: No - HEENT Hx HEENT Disorder: No - Renal Hx Renal Disorder: No - Endocrine/Metabolic Hx Endocrine Disorders: No - Hematological/Oncological Hx Blood Disorders: No - Integumentary Hx Dermatological Disorder: No - Musculoskeletal/Rheumatological Hx Falls: Yes - Gastrointestinal Hx Gastrointestinal Disorders: Yes (gastritis, gi bleed) - Genitourinary/Gynecological Hx Genitourinary Disorders: Yes Hx Hematuria: Yes - Psychiatric Hx Psychophysiologic Disorder: Yes Hx Bipolar Disorder: Yes Hx Depression: Yes Hx Substance Use: No - Past Surgical History Past Surgical History: No Previous - Anesthesia Hx Anesthesia: Yes Hx Anesthesia Reactions: No Hx Malignant Hyperthermia: No - Suicidal Assessment Feels Threatened In Home Enviroment: No <Elizabeth Jamil - Last Filed: 07/13/17 01:48> Family/Social History - Physician Review Nursing Documentation Reviewed: Yes Family/Social History: Unknown Family HX Smoking Status: Former Smoker Hx Alcohol Use: Yes Hx Substance Use: No Hx Substance Use Treatment: No <Elizabeth Jamil - Last Filed: 07/13/17 01:48> Allergies/Home Meds <Elizabeth Jamil - Last Filed: 07/13/17 01:48> <Eulalio Mills - Last Filed: 07/13/17 05:17> Allergies/Adverse Reactions: Allergies No Known Allergies Allergy (Verified 07/10/17 13:27) Home Medications: Home Meds Medication Instructions Recorded Confirmed No Known Home Med 07/03/17 07/10/17 Review of Systems - Review of Systems Constitutional: absent: Fatigue, Fevers Respiratory: absent: SOB, Cough Cardiovascular: absent: Chest Pain, Palpitations Gastrointestinal: absent: Abdominal Pain, Nausea, Vomiting Genitourinary Male: absent: Dysuria Musculoskeletal: absent: Arthralgias Skin: absent: Rash, Pruritis Neurological: absent: Headache, Dizziness Psychiatric: absent: Anxiety, Depression, Suicidal Ideation <Elizabeth Jamil - Last Filed: 07/13/17 01:48> Physical Exam Vital Signs Reviewed: Yes Temperature: Afebrile Blood Pressure: Normal Pulse: Regular Respiratory Rate: Normal Appearance: Positive for: Well-Appearing, Non-Toxic, Comfortable Pain Distress: None Mental Status: Positive for: Alert and Oriented X 3 - Systems Exam Head: Present: Atraumatic Mouth: Present: Moist Mucous Membranes Neck: Present: Normal Range of Motion Respiratory/Chest: Present: Clear to Auscultation Cardiovascular: Present: Regular Rate and Rhythm Abdomen: No: Tenderness, Distention Upper Extremity: Present: Normal ROM Lower Extremity: Present: Normal ROM Neurological: Present: GCS=15 Skin: Present: Warm, Dry, Normal Color. No: Rashes Psychiatric: Present: Alert, Oriented x 3 <Elizabeth Jamil - Last Filed: 07/13/17 01:48> Medical Decision Making <Elizabeth Jamil - Last Filed: 07/13/17 01:48> Re-evaluation Time: 05:17 Reassessment Condition: Re-examined, Improved <Eulalio Mills - Last Filed: 07/13/17 05:17> ED Course and Treatment: 07/12/17 19:20 patient nontoxic Well appearing no distress. Stable vital signs Alert oriented. Ambulates with a steady gait. will observe for sobriety 07/13/17 01:48 case signed out to dr. mills pending sobriety. (Elizabeth Jamil) ED OBSERVATION Date of observation admission: 08/25/17 Time of observation admission: 19:10 <Elizabeth Jamil - Last Filed: 07/13/17 01:48> Discharge: Yes <Eulalio Mills - Last Filed: 07/13/17 05:17> - Observation admission statement Patient is being placed in observation because:: alcohol intoxication (Elizabeth Jamil) - Goals of Observation Goals of observation are:: sobriety (Elizabeth Jamil) - Progress Note Progress Note: 07/12/17 21:00 pt sleeping in er; no distress. 07/13/17 00:05 pt in no distress; resting comfortably 07/13/17 01:48 pt sleeping in er. no distress. case signed out to dr. mills pending sobriety (Elizabeth Jamil) 07/13/17 03:46 Patient resting comfortably, no complaints at this time. (Eulalio Mills) - PA / [employer] / Resident Statement MD/DO has reviewed & agrees with the documentation as recorded. <Eulalio Mills - Last Filed: 07/13/17 05:17> Disposition/Present on Arrival - Present on Arrival History of DVT/PE: No History of Uncontrolled Diabetes: No Urinary Catheter: No History of Decub. Ulcer: No History Surgical Site Infection Following: None <Elizabeth Jamil - Last Filed: 07/13/17 01:48> - Present on Arrival Any Indicators Present on Arrival: No - Disposition Have Diagnosis and Disposition been Completed?: Yes Disposition Time: 05:17 <Eulalio Mills - Last Filed: 07/13/17 05:17> - Disposition Diagnosis: Alcohol abuse Disposition: HOME/ ROUTINE Condition: GOOD
[2017-07-13 06:39] VITALS: BP 121/73; PULSE 79; RESP 18; O2SAT 99
== END 2017-07-13 05:20 | disposition home or self-care (01) ==
LOC: ED 18:09 → EROBSV 19:10
PROVIDERS: ADMIT Emergency Medicine; ATTEND Emergency Medicine
DX: F10.10 Alcohol abuse, uncomplicated (principal)
CPT/HCPCS: 99284; G0378

== ENCOUNTER 2017-07-13 12:36 | Observation (INO) | payer MEDICAID ==
[2017-07-13 12:40] VITALS: BMI 24.2
[2017-07-13 12:49] VITALS: TEMP 97.8; O2SAT 100
--- NOTE | 2017-07-13 13:02 | ED PDOC ---
Arrival/HPI - General Chief Complaint: Alcohol Ingestion Time Seen by Provider: 07/13/17 12:37 Historian: Patient EM Caveat: Intoxicated - History of Present Illness Narrative History of Present Illness (Text): 07/13/17 12:50 A 47 year old male, with chronic etoh abuse, presents today stating that he was drinking today and he is tired and wants to rest in the bed for a little while. He denies any chest pain, shortness of breath, abdominal pain, nausea, vomiting , diarrhea, constipation, fevers, chills, or any other complaints at this time. Time/Duration: Prior to Arrival Symptom Onset: Other (etoh use) Symptom Course: Unchanged Activities at Onset: Other (etoh use ) Past Medical History - Provider Review Nursing Documentation Reviewed: Yes - Infectious Disease Hx of Infectious Diseases: None - Tetanus Immunization Tetanus Immunization: Up to Date - Reproductive Currently : No - Past Medical History Past Medical History: No Previous - Cardiac Hx Cardiac Disorders: Yes Hx Hypertension: Yes - Pulmonary Hx Respiratory Disorders: Yes Hx Pneumonia: Yes - Neurological Hx Neurological Disorder: No - HEENT Hx HEENT Disorder: No - Renal Hx Renal Disorder: No - Endocrine/Metabolic Hx Endocrine Disorders: No - Hematological/Oncological Hx Blood Disorders: No - Integumentary Hx Dermatological Disorder: No - Musculoskeletal/Rheumatological Hx Falls: Yes - Gastrointestinal Hx Gastrointestinal Disorders: Yes (gastritis, gi bleed) - Genitourinary/Gynecological Hx Genitourinary Disorders: Yes Hx Hematuria: Yes - Psychiatric Hx Psychophysiologic Disorder: Yes Hx Bipolar Disorder: Yes Hx Depression: Yes Hx Substance Use: No - Past Surgical History Past Surgical History: No Previous - Anesthesia Hx Anesthesia: Yes Hx Anesthesia Reactions: No Hx Malignant Hyperthermia: No - Suicidal Assessment Feels Threatened In Home Enviroment: No Family/Social History - Physician Review Nursing Documentation Reviewed: Yes Family/Social History: No Known Family HX Smoking Status: Former Smoker Hx Alcohol Use: Yes Hx Substance Use: No Hx Substance Use Treatment: No Allergies/Home Meds Allergies/Adverse Reactions: Allergies No Known Allergies Allergy (Verified 07/10/17 13:27) Home Medications: Home Meds Medication Instructions Recorded Confirmed No Known Home Med 07/03/17 07/13/17 Review of Systems - Physician Review All systems were reviewed & negative as marked: Yes - Review of Systems Constitutional: absent: Fevers Respiratory: absent: SOB Cardiovascular: absent: Chest Pain Gastrointestinal: absent: Abdominal Pain, Constipation, Diarrhea, Nausea, Vomiting Physical Exam - Physical Exam Physical Exam Limitations: Intoxication Vital Signs Reviewed: Yes Vital Signs Temp Pulse Resp BP Pulse Ox 07/13/17 16:50 80 16 133/84 100 07/13/17 14:45 82 16 130/82 100 07/13/17 12:45 97.8 F 86 18 132/89 100 Temperature: Afebrile Blood Pressure: Normal Pulse: Regular Respiratory Rate: Normal Appearance: Positive for: Well-Appearing, Non-Toxic, Comfortable Pain Distress: None Mental Status: Positive for: Alert and Oriented X 3 - Systems Exam Head: Present: Atraumatic, Normocephalic Pupils: Present: PERRL Extroacular Muscles: Present: EOMI Conjunctiva: Present: Normal Mouth: Present: Moist Mucous Membranes Neck: Present: Normal Range of Motion Respiratory/Chest: Present: Clear to Auscultation, Good Air Exchange. No: Respiratory Distress, Accessory Muscle Use Cardiovascular: Present: Regular Rate and Rhythm, Normal S1, S2. No: Murmurs Abdomen: Present: Normal Bowel Sounds. No: Tenderness, Distention, Peritoneal Signs Back: Present: Normal Inspection Upper Extremity: Present: Normal Inspection. No: Cyanosis, Edema Lower Extremity: Present: Normal Inspection. No: Edema Neurological: Present: GCS=15, CN II-XII Intact, Speech Normal Skin: Present: Warm, Dry, Normal Color. No: Rashes Psychiatric: Present: Alert, Oriented x 3, Normal Insight, Normal Concentration Medical Decision Making ED Course and Treatment: 07/13/17 13:03 Impression: 47 year old male pending sobriety. Differential Diagnosis included but are not limited to: Plan: -- emergency department observation -- Reassess and disposition Prior Visits: The patient was last seen in the emergency department on 07/13/17 for etoh abuse. The patient was discharged home. Progress Notes: - Lab Interpretations Lab Results: Lab Results 07/13/17 12:58: POC Glucose (mg/dL) 69 ED OBSERVATION - Goals of Observation Goals of observation are:: Patient's goal is sobriety. - Scribe Statement The provider has reviewed the documentation as recorded by the Tedibaudi Guevara Provider Scribe Attestation: All medical record entries made by the Scribe were at my direction and personally dictated by me. I have reviewed the chart and agree that the record accurately reflects my personal performance of the history, physical exam, medical decision making, and the department course for this patient. I have also personally directed, reviewed, and agree with the discharge instructions and disposition. Disposition/Present on Arrival - Present on Arrival Any Indicators Present on Arrival: No History of DVT/PE: No History of Uncontrolled Diabetes: No Urinary Catheter: No History of Decub. Ulcer: No History Surgical Site Infection Following: None - Disposition Have Diagnosis and Disposition been Completed?: Yes Diagnosis: Alcohol abuse Disposition: HOME/ ROUTINE Disposition Time: 06:00 Condition: STABLE
[2017-07-13 16:51] VITALS: BP 133/84; PULSE 80; RESP 16
== END 2017-07-13 17:59 | disposition home or self-care (01) ==
LOC: ED 12:36 → EROBSV 13:19
PROVIDERS: ADMIT Student in an Organized Health Care Education/Training Program; ATTEND Student in an Organized Health Care Education/Training Program
DX: F10.10 Alcohol abuse, uncomplicated (principal)
CPT/HCPCS: 82948; 99282; G0378

== ENCOUNTER 2017-07-15 14:14 | Emergency (ER) | payer MEDICAID, OTHER ==
[2017-07-15 14:35] VITALS: BP 113/82; PULSE 100; RESP 18; TEMP 98.4; O2SAT 97
[2017-07-15 18:34] VITALS: BMI 31.3
== END 2017-07-15 14:55 | disposition left against medical advice (07) ==
LOC: ED 14:14
DX: Z02.89 Encounter for other administrative examinations (principal); F10.10 Alcohol abuse, uncomplicated

== ENCOUNTER 2017-07-15 18:31 | Observation (INO) | payer MEDICAID, OTHER ==
[2017-07-15 18:34] VITALS: BMI 31.3
--- NOTE | 2017-07-15 18:45 | ED PDOC ---
Arrival/HPI - General Time Seen by Provider: 07/15/17 18:41 Historian: Patient, EMS - History of Present Illness Narrative History of Present Illness (Text): 07/15/17 18:43 47 y/o male, FS 90, very well known to this ER and frequent visitor, jayden for etoh intoxication in the public. Pt. stated that he has been drinking today, bring here by the ambulance because he can not go home at this time, no homicidal or suicidal ideation, no auditory or visual hallucination, no chest pain or shortness of breath, no abdominal pain, no nausea or vomiting, only requesting that he just wanna sleep it off. Past Medical History - Provider Review Nursing Documentation Reviewed: Yes - Infectious Disease Hx of Infectious Diseases: None - Tetanus Immunization Tetanus Immunization: Up to Date - Reproductive Currently : No - Past Medical History Past Medical History: No Previous - Cardiac Hx Cardiac Disorders: Yes Hx Hypertension: Yes - Pulmonary Hx Respiratory Disorders: Yes Hx Pneumonia: Yes - Neurological Hx Neurological Disorder: No - HEENT Hx HEENT Disorder: No - Renal Hx Renal Disorder: No - Endocrine/Metabolic Hx Endocrine Disorders: No - Hematological/Oncological Hx Blood Disorders: No - Integumentary Hx Dermatological Disorder: No - Musculoskeletal/Rheumatological Hx Falls: Yes - Gastrointestinal Hx Gastrointestinal Disorders: Yes (gastritis, gi bleed) - Genitourinary/Gynecological Hx Genitourinary Disorders: Yes Hx Hematuria: Yes - Psychiatric Hx Psychophysiologic Disorder: Yes Hx Bipolar Disorder: Yes Hx Depression: Yes Hx Substance Use: No - Past Surgical History Past Surgical History: No Previous - Anesthesia Hx Anesthesia: Yes Hx Anesthesia Reactions: No Hx Malignant Hyperthermia: No - Suicidal Assessment Feels Threatened In Home Enviroment: No Family/Social History - Physician Review Nursing Documentation Reviewed: Yes Family/Social History: Unknown Family HX Smoking Status: Former Smoker Hx Alcohol Use: Yes Hx Substance Use: No Hx Substance Use Treatment: No Allergies/Home Meds Allergies/Adverse Reactions: Allergies No Known Allergies Allergy (Verified 07/10/17 13:27) Home Medications: Home Meds Medication Instructions Recorded Confirmed No Known Home Med 07/03/17 07/15/17 Review of Systems - Review of Systems Constitutional: absent: Fatigue, Fevers Eyes: absent: Vision Changes ENT: absent: Hearing Changes Respiratory: absent: SOB, Cough Cardiovascular: absent: Chest Pain Gastrointestinal: absent: Abdominal Pain, Nausea, Vomiting Musculoskeletal: absent: Arthralgias, Back Pain Psychiatric: absent: Anxiety, Depression, Suicidal Ideation Physical Exam Vital Signs Temp Pulse Resp BP Pulse Ox 07/15/17 18:42 97.7 F 88 16 122/90 99 - Systems Exam Head: Present: Atraumatic, Normocephalic Pupils: Present: PERRL Extroacular Muscles: Present: EOMI Conjunctiva: Present: Normal Mouth: Present: Moist Mucous Membranes Neck: Present: Normal Range of Motion Respiratory/Chest: Present: Clear to Auscultation, Good Air Exchange. No: Respiratory Distress, Accessory Muscle Use Cardiovascular: Present: Regular Rate and Rhythm, Normal S1, S2. No: Murmurs Abdomen: Present: Normal Bowel Sounds. No: Tenderness, Distention, Peritoneal Signs Back: Present: Normal Inspection Upper Extremity: Present: Normal Inspection. No: Cyanosis, Edema Lower Extremity: Present: Normal Inspection. No: Edema Neurological: Present: GCS=15, Speech Normal, Motor Func Grossly Intact, Memory Normal Skin: Present: Warm, Dry, Normal Color. No: Rashes Psychiatric: Present: Alert, Oriented x 3, Normal Insight, Normal Concentration Medical Decision Making ED Course and Treatment: 07/15/17 18:45 -Finger stick -observe and reassess ED OBSERVATION Date of observation admission: 07/15/17 Time of observation admission: 20:00 - Observation admission statement Patient is being placed in observation because:: alcohol intoxication - Goals of Observation Goals of observation are:: sober - Progress Note Progress Note: 07/15/17 20:00 -Pt. is sleeping well, FS 90 07/15/17 22:00 -Pt. is resting well 07/16/17 00:00 -Food and drink given, resting well 07/16/17 01:00 -Pt. is walking with normal gait and posture, walking to the bathroom -Discharge home with education on avoid intoxicated in the public, follow up with your own pmd within 2 days, return to the ER for any new or worsening signs or symptoms. - PA / [employer] / Resident Statement /DO has reviewed & agrees with the documentation as recorded. Disposition/Present on Arrival - Present on Arrival Any Indicators Present on Arrival: No History of DVT/PE: No History of Uncontrolled Diabetes: No Urinary Catheter: No History of Decub. Ulcer: No History Surgical Site Infection Following: None - Disposition Have Diagnosis and Disposition been Completed?: Yes Diagnosis: Alcohol intoxication Disposition: HOME/ ROUTINE Disposition Time: 00:49 Patient Plan: Discharge Condition: GOOD
[2017-07-15 18:54] VITALS: TEMP 97.7
[2017-07-16 04:49] VITALS: RESP 18
[2017-07-16 06:28] VITALS: BP 123/84; PULSE 79; O2SAT 99
== END 2017-07-16 06:00 | disposition home or self-care (01) ==
LOC: ED 18:31 → EROBSV 20:06
PROVIDERS: ADMIT Emergency Medicine; ATTEND Emergency Medicine
DX: F10.129 Alcohol abuse with intoxication, unspecified (principal)
CPT/HCPCS: 82948; 99283; G0378

== ENCOUNTER 2017-07-16 12:54 | Emergency (ER) | payer MEDICAID, OTHER ==
[2017-07-16 13:02] VITALS: BP 111/75; PULSE 89; RESP 18; TEMP 97.7; O2SAT 98; BMI 25.9
--- NOTE | 2017-07-16 13:38 | ED PDOC ---
Arrival/HPI - General Chief Complaint: Alcohol Ingestion Time Seen by Provider: 07/16/17 13:06 Historian: Patient - History of Present Illness Narrative History of Present Illness (Text): 07/16/17 13:35 A 47 year old male, whose past medical history includes reflux and EtOH abuse, presents to the emergency department complaining of epigastric pain. Patient states he had couple of drinks today. Patient describes pain as "burning sensation". Patient denies of nausea, vomiting, or any other complaints. No PMD Time/Duration: Prior to Arrival Symptom Onset: Gradual Symptom Course: Unchanged Past Medical History - Provider Review Nursing Documentation Reviewed: Yes - Infectious Disease Hx of Infectious Diseases: None - Tetanus Immunization Tetanus Immunization: Up to Date - Reproductive Currently : No - Past Medical History Past Medical History: No Previous - Cardiac Hx Cardiac Disorders: Yes Hx Hypertension: Yes - Pulmonary Hx Respiratory Disorders: Yes Hx Pneumonia: Yes - Neurological Hx Neurological Disorder: No - HEENT Hx HEENT Disorder: No - Renal Hx Renal Disorder: No - Endocrine/Metabolic Hx Endocrine Disorders: No - Hematological/Oncological Hx Blood Disorders: No - Integumentary Hx Dermatological Disorder: No - Musculoskeletal/Rheumatological Hx Falls: Yes - Gastrointestinal Hx Gastrointestinal Disorders: Yes (gastritis, gi bleed) - Genitourinary/Gynecological Hx Genitourinary Disorders: Yes Hx Hematuria: Yes - Psychiatric Hx Psychophysiologic Disorder: Yes Hx Bipolar Disorder: Yes Hx Depression: Yes Hx Substance Use: No - Past Surgical History Past Surgical History: No Previous - Anesthesia Hx Anesthesia: Yes Hx Anesthesia Reactions: No Hx Malignant Hyperthermia: No - Suicidal Assessment Feels Threatened In Home Enviroment: No Family/Social History - Physician Review Nursing Documentation Reviewed: Yes Family/Social History: No Known Family HX Smoking Status: Light Smoker < 10 Cigarettes Daily Hx Alcohol Use: Yes Frequency of alcohol use: Daily Hx Substance Use: No Hx Substance Use Treatment: No Allergies/Home Meds Allergies/Adverse Reactions: Allergies No Known Allergies Allergy (Verified 07/16/17 01:21) Review of Systems - Physician Review All systems were reviewed & negative as marked: Yes - Review of Systems Constitutional: absent: Fevers, Night Sweats Respiratory: absent: SOB Cardiovascular: absent: Chest Pain Gastrointestinal: Abdominal Pain. absent: Nausea (epigastric), Vomiting Neurological: absent: Headache Physical Exam Vital Signs Reviewed: Yes Vital Signs Temp Pulse Resp BP Pulse Ox 07/16/17 13:01 97.7 F 89 18 111/75 98 Temperature: Afebrile Blood Pressure: Normal Pulse: Regular Respiratory Rate: Normal Appearance: Positive for: Well-Appearing Pain Distress: None Mental Status: Positive for: Alert and Oriented X 3, other (speech baseline) Finger Stick Blood Glucose: 132 - Systems Exam Head: Present: Atraumatic, Normocephalic Pupils: Present: PERRL Extroacular Muscles: Present: EOMI Conjunctiva: Present: Normal Mouth: Present: Moist Mucous Membranes Neck: Present: Normal Range of Motion Respiratory/Chest: Present: Clear to Auscultation Cardiovascular: Present: Regular Rate and Rhythm, Normal S1, S2. No: Murmurs Abdomen: Present: Normal Bowel Sounds. No: Tenderness, Distention, Peritoneal Signs Back: Present: Normal Inspection Upper Extremity: Present: Normal Inspection. No: Cyanosis, Edema Lower Extremity: Present: Normal Inspection. No: Edema Neurological: Present: GCS=15, CN II-XII Intact, Speech Normal Skin: Present: Warm, Dry, Normal Color. No: Rashes Psychiatric: Present: Alert, Oriented x 3, Normal Insight, Normal Concentration Medical Decision Making ED Course and Treatment: 07/16/17 13:41 Impression: 47 year old male with epigastric pain and EtOH use. Physical exam shows clear lungs, speech baseline. Differential Diagnosis included but are not limited to: Abdominal pain vs. EtOH abuse Plan: -- Pepcid -- Reassess and disposition Prior Visits: Notes and results from previous visits were reviewed. Patient was last seen in the emergency department on 07/15/2017 for EtOH intoxication. Patient was place un ED Observation and later discharged at 01:00. Progress Notes: Patient felt better after reevaluation. Abd soft and not tender. Patient is tolerating PO fluids. He is able to walk with no ataxia. Patient is not clinically intoxicated. - Lab Interpretations Lab Results: Lab Results 07/16/17 13:06: POC Glucose (mg/dL) 132 H - Medication Orders Current Medication Orders: Discontinued Medications Famotidine (Pepcid) 20 mg PO STAT STA Stop: 07/16/17 13:32 Last Admin: 07/16/17 13:43 Dose: 20 mg - Scribe Statement The provider has reviewed the documentation as recorded by the Debbie Stokes Provider Scribe Attestation: All medical record entries made by the Debbie were at my direction and personally dictated by me. I have reviewed the chart and agree that the record accurately reflects my personal performance of the history, physical exam, medical decision making, and the department course for this patient. I have also personally directed, reviewed, and agree with the discharge instructions and disposition. Disposition/Present on Arrival - Present on Arrival Any Indicators Present on Arrival: No History of DVT/PE: No History of Uncontrolled Diabetes: No Urinary Catheter: No History of Decub. Ulcer: No History Surgical Site Infection Following: None - Disposition Have Diagnosis and Disposition been Completed?: Yes Diagnosis: Alcohol dependence Disposition: HOME/ ROUTINE Disposition Time: 13:51 Patient Plan: Discharge Condition: IMPROVED Discharge Instructions (ExitCare): Abdominal Pain (ED) Additional Instructions: Mr Mccormick, thank you for letting us take care of you today. Your provider was Dr. Valentino. You were treated for Alcohol Use, Abdominal Pain. The emergency medical care you received today was directed at your acute symptoms. If you were prescribed any medication, please fill it and take as directed. It may take several days for your symptoms to resolve. Return to the Emergency Department if your symptoms worsen, do not improve, or if you have any other problems. Please contact your doctor or call one of the physicians/clinics you have been referred to that are listed on the Patient Visit Information form that is included in your discharge packet. Bring any paperwork you were given at discharge with you along with any medications you are taking to your follow up visit. Our treatment cannot replace ongoing medical care by a primary care provider (PCP) outside of the emergency department. Thank you for allowing the [facility] team to be part of your care today. If you had an X-Ray or CT scan: A Radiologist will review the ED reading if any change in treatment is needed we will contact you. If you had a blood, urine, or wound culture: It will take several days for the results, if any change in treatment is needed we will contact you. If you had an STI test: It will take 48 hours for the results. Please call after 1 week if you have not heard back. Prescriptions: Ranitidine HCl [Zantac] 150 mg PO BID PRN #30 tablet PRN Reason: Pain, Mild (1-3) Referrals: [facility] [place] - Follow up with primary Forms: alooma (Italian)
== END 2017-07-16 13:51 | disposition home or self-care (01) ==
LOC: ED 12:54
DX: F10.10 Alcohol abuse, uncomplicated (principal)

== ENCOUNTER 2017-07-16 17:55 | Emergency (ER) | payer MEDICAID, OTHER ==
[2017-07-16 17:55] VITALS: BMI 25.9
[2017-07-16 18:14] VITALS: BP 101/72; PULSE 100; RESP 18; TEMP 98.3; O2SAT 97
--- NOTE | 2017-07-16 19:10 | ED PDOC ---
Arrival/HPI - General Chief Complaint: Alcohol Ingestion Time Seen by Provider: 07/16/17 18:20 Historian: Patient - History of Present Illness Narrative History of Present Illness (Text): 07/16/17 19:07 A 47 year old male, whose past medical history includes alcohol abuse was brought into the emergency department by EMS for alcohol intoxication. Patient admits to drinking alcohol today. Patient is well known to emergency room staff for multiple visits for similar presentations. Patient denies any trauma, injuries, fever, chills, nausea, vomiting, shortness of breath, cough, suicidal ideation, homicidal ideation, auditory or visual hallucinations, any acute changes in his chronic symptoms, or any other complaints. Past Medical History - Provider Review Nursing Documentation Reviewed: Yes - Infectious Disease Hx of Infectious Diseases: None - Tetanus Immunization Tetanus Immunization: Up to Date - Reproductive Currently : No - Past Medical History Past Medical History: No Previous - Cardiac Hx Cardiac Disorders: Yes Hx Hypertension: Yes - Pulmonary Hx Respiratory Disorders: Yes Hx Pneumonia: Yes - Neurological Hx Neurological Disorder: No - HEENT Hx HEENT Disorder: No - Renal Hx Renal Disorder: No - Endocrine/Metabolic Hx Endocrine Disorders: No - Hematological/Oncological Hx Blood Disorders: No - Integumentary Hx Dermatological Disorder: No - Musculoskeletal/Rheumatological Hx Falls: Yes - Gastrointestinal Hx Gastrointestinal Disorders: Yes (gastritis, gi bleed) - Genitourinary/Gynecological Hx Genitourinary Disorders: Yes Hx Hematuria: Yes - Psychiatric Hx Psychophysiologic Disorder: Yes Hx Bipolar Disorder: Yes Hx Depression: Yes Hx Substance Use: No - Past Surgical History Past Surgical History: No Previous - Anesthesia Hx Anesthesia: Yes Hx Anesthesia Reactions: No Hx Malignant Hyperthermia: No - Suicidal Assessment Feels Threatened In Home Enviroment: No Family/Social History - Physician Review Nursing Documentation Reviewed: Yes Family/Social History: No Known Family HX Smoking Status: Light Smoker < 10 Cigarettes Daily Hx Alcohol Use: Yes (daily) Frequency of alcohol use: Daily Hx Substance Use: No Hx Substance Use Treatment: No Allergies/Home Meds Allergies/Adverse Reactions: Allergies No Known Allergies Allergy (Verified 07/16/17 01:21) Review of Systems - Physician Review All systems were reviewed & negative as marked: Yes - Review of Systems Constitutional: absent: Fevers, Night Sweats Respiratory: absent: SOB, Cough Cardiovascular: Chest Pain (Chronic chest pain; worse with movement) Gastrointestinal: Abdominal Pain (Chronic abdominal pain; unchanged). absent: Nausea, Vomiting Psychiatric: absent: Suicidal Ideation (/homicidal ideation), Other (Auditory or visual hallucinations) Physical Exam Vital Signs Reviewed: Yes Vital Signs Temp Pulse Resp BP Pulse Ox 07/16/17 18:11 98.3 F 100 H 18 101/72 97 Temperature: Afebrile Blood Pressure: Normal Pulse: Regular Respiratory Rate: Normal Appearance: Positive for: Other (disheveled) Pain Distress: None Mental Status: Positive for: other (AOB but awake, alert, and oriented x 3). No : Agitated, Lethargic - Systems Exam Head: Present: Atraumatic, Normocephalic Pupils: Present: PERRL Conjunctiva: Present: Normal Mouth: Present: Moist Mucous Membranes Pharnyx: Present: Normal. No: ERYTHEMA, EXUDATE Neck: Present: Normal Range of Motion Respiratory/Chest: Present: Clear to Auscultation, Good Air Exchange. No: Respiratory Distress, Accessory Muscle Use Cardiovascular: Present: Regular Rate and Rhythm, Normal S1, S2. No: Murmurs Abdomen: Present: Normal Bowel Sounds. No: Tenderness, Distention, Peritoneal Signs Back: Present: Normal Inspection Upper Extremity: Present: Normal Inspection. No: Cyanosis, Edema Lower Extremity: Present: Normal Inspection. No: Edema Neurological: Present: Speech Normal Skin: Present: Warm, Dry, Normal Color. No: Rashes Psychiatric: No: Agitated, Suicidal Ideation, Homicidal Ideation, Hallucinations , Intoxicated, Lethargic Medical Decision Making ED Course and Treatment: 07/16/17 19:07 Impression: A 47 year old male brought in for alcohol intoxication. Patient denies any SI/ HI or any other complaints. Differential Diagnosis included but are not limited to: Alcohol intoxication Progress Notes: Patient BIB EMS for alcohol intoxication. On ROS, patient with chronic chest, L shoulder, and abdominal pain; he reports no acute changes. Chest pain is worse with movement and ttp; L shoulder with FROM and 2 normal x-rays recently. The patient just had a recent echocardiogram , and the results were entirely unremarkable. The patient had a recent GI evaluation and was instructed to f/u with GI after etoh cessation which he has not done so. 07/16/17 19:40 Patient eloped from the ED. - Scribe Statement The provider has reviewed the documentation as recorded by the Scribe Argenis Almanzavez Provider Scribe Attestation: All medical record entries made by the Scribe were at my direction and personally dictated by me. I have reviewed the chart and agree that the record accurately reflects my personal performance of the history, physical exam, medical decision making, and the department course for this patient. I have also personally directed, reviewed, and agree with the discharge instructions and disposition. Disposition/Present on Arrival - Present on Arrival Any Indicators Present on Arrival: No History of DVT/PE: No History of Uncontrolled Diabetes: No Urinary Catheter: No History of Decub. Ulcer: No History Surgical Site Infection Following: None - Disposition Have Diagnosis and Disposition been Completed?: Yes Diagnosis: Alcohol abuse Disposition: ELOPEMENT - ER ONLY Disposition Time: 19:40 Patient Plan: Other (ELOPED) Condition: UNKNOWN Additional Instructions: Patient eloped. Referrals: [facility], [Primary Care Provider] - Follow up with primary Forms: [employer] ([place]wana)
== END 2017-07-16 19:59 | disposition left against medical advice (07) ==
LOC: ED 17:55
DX: F10.10 Alcohol abuse, uncomplicated (principal)

== ENCOUNTER 2017-07-20 12:14 | Emergency (ER) | payer MEDICAID, OTHER ==
[2017-07-20 12:14] VITALS: BMI 25.9
[2017-07-20 12:50] VITALS: RESP 18; TEMP 98
[2017-07-20 13:28] VITALS: O2SAT 99
[2017-07-20 15:12] VITALS: BP 118/65; PULSE 79
--- NOTE | 2017-07-20 15:15 | ED PDOC ---
Arrival/HPI - General Chief Complaint: Alcohol Ingestion Time Seen by Provider: 07/20/17 12:15 Historian: Patient - History of Present Illness Narrative History of Present Illness (Text): 07/20/17 15:15 47-year-old male presents today admitting to drinking alcohol today requesting a place to rest. He denies chest pain or shortness of breath. Denies fevers or chills. Denies nausea vomiting diarrhea or constipation. He denies suicidal or homicidal ideation. Past Medical History - Provider Review Nursing Documentation Reviewed: Yes - Travel History Have you recently traveled outside [place] w/in the past 3 mons?: No - Infectious Disease Hx of Infectious Diseases: None - Tetanus Immunization Tetanus Immunization: Up to Date - Reproductive Currently : No - Past Medical History Past Medical History: No Previous - Cardiac Hx Cardiac Disorders: Yes Hx Hypertension: Yes - Pulmonary Hx Respiratory Disorders: Yes Hx Pneumonia: Yes - Neurological Hx Neurological Disorder: No - HEENT Hx HEENT Disorder: No - Renal Hx Renal Disorder: No - Endocrine/Metabolic Hx Endocrine Disorders: No - Hematological/Oncological Hx Blood Disorders: No - Integumentary Hx Dermatological Disorder: No - Musculoskeletal/Rheumatological Hx Falls: Yes - Gastrointestinal Hx Gastrointestinal Disorders: Yes (gastritis, gi bleed) - Genitourinary/Gynecological Hx Genitourinary Disorders: Yes Hx Hematuria: Yes - Psychiatric Hx Psychophysiologic Disorder: Yes Hx Bipolar Disorder: Yes Hx Depression: Yes Hx Substance Use: No - Past Surgical History Past Surgical History: No Previous - Anesthesia Hx Anesthesia: Yes Hx Anesthesia Reactions: No Hx Malignant Hyperthermia: No - Suicidal Assessment Feels Threatened In Home Enviroment: No Family/Social History - Physician Review Nursing Documentation Reviewed: Yes Family/Social History: Unknown Family HX Smoking Status: Light Smoker < 10 Cigarettes Daily Hx Alcohol Use: Yes (daily) Frequency of alcohol use: Daily Hx Substance Use: No Hx Substance Use Treatment: No Allergies/Home Meds Allergies/Adverse Reactions: Allergies No Known Allergies Allergy (Verified 07/20/17 12:22) Home Medications: Home Meds Medication Instructions Recorded Confirmed No Known Home Med 07/20/17 07/20/17 Review of Systems - Review of Systems Constitutional: absent: Fatigue, Fevers Respiratory: absent: SOB, Cough Cardiovascular: absent: Chest Pain, Palpitations Gastrointestinal: absent: Abdominal Pain, Diarrhea, Nausea, Vomiting Genitourinary Male: absent: Dysuria Musculoskeletal: absent: Arthralgias Skin: absent: Rash Neurological: absent: Headache, Dizziness Psychiatric: absent: Anxiety, Depression, Suicidal Ideation Physical Exam Vital Signs Reviewed: Yes Vital Signs Temp Pulse Resp BP Pulse Ox 07/20/17 13:27 86 18 121/69 99 07/20/17 12:41 98.0 F 93 H 18 122/72 98 07/20/17 12:19 98 F 93 H 19 122/72 98 Temperature: Afebrile Blood Pressure: Normal Pulse: Regular Respiratory Rate: Normal Appearance: Positive for: Non-Toxic, Comfortable, Unkept Pain Distress: None Mental Status: Positive for: Alert and Oriented X 3 Finger Stick Blood Glucose: 81 - Systems Exam Head: Present: Atraumatic Mouth: Present: Moist Mucous Membranes Respiratory/Chest: Present: Clear to Auscultation Cardiovascular: Present: Regular Rate and Rhythm Abdomen: No: Tenderness Upper Extremity: Present: Normal ROM Lower Extremity: Present: Normal ROM Neurological: Present: GCS=15, Gait Normal Skin: Present: Warm, Dry, Normal Color. No: Rashes Psychiatric: Present: Alert, Oriented x 3 Medical Decision Making ED Course and Treatment: 47YR old male presents with no complaints. fingerstick 81 pt resting comfortably in er. eating a sandwich. denies pain. 07/20/17 15:16 pt reassessment; pt ready to leave. denies any complaints. alert and oriented in do distress. stable vitals. ambulating with steady gait. clinically sober. impression; alcohol abuse f/u with pmd return if symptoms worsen,persist or if new symptoms develop. Disposition/Present on Arrival - Present on Arrival Any Indicators Present on Arrival: No History of DVT/PE: No History of Uncontrolled Diabetes: No Urinary Catheter: No History of Decub. Ulcer: No History Surgical Site Infection Following: None - Disposition Have Diagnosis and Disposition been Completed?: Yes Diagnosis: Alcohol abuse Disposition: HOME/ ROUTINE Disposition Time: 15:11 Patient Plan: Discharge Condition: GOOD Additional Instructions: FOLLOW UP WITH THE PRIMARY CARE PHYSICIAN INCREASE FLUIDS RETURN IF SYMPTOMS WORSEN,PERSIST OR IF NEW SYMPTOMS DEVELOP. [place]errals: [facility] [place] [facility] [place] - Follow up with primary Alcoholics Anonymous [Outside] - Follow up with primary Forms: [id number] ([place])
== END 2017-07-20 15:13 | disposition home or self-care (01) ==
LOC: ED 12:14
DX: F10.10 Alcohol abuse, uncomplicated (principal)

== ENCOUNTER 2017-07-20 17:20 | Observation (INO) | payer MEDICAID, OTHER ==
[2017-07-20 17:21] VITALS: BMI 25.9
--- NOTE | 2017-07-20 17:34 | ED PDOC ---
Arrival/HPI - General Historian: Patient, EMS - History of Present Illness Time/Duration: Prior to Arrival <Elizabeth Jamil - Last Filed: 07/20/17 19:41> <Jose Raul Ron DO - Last Filed: 07/21/17 05:25> <JulijonathanEulalio - Last Filed: 07/21/17 06:01> - General Chief Complaint: Alcohol Ingestion Time Seen by Provider: 07/20/17 17:30 - History of Present Illness Narrative History of Present Illness (Text): 07/20/17 17:31 47yr old male with hx of ETOH abuse presents today brought in by ambulance for alcohol intoxication. Pt states he recently left the hospital and immediately drank vodka and keystone beer. denies drug abuse. denies cp or sob. no abdominal pain. Per EMS pt was found laying on the ground. Ems states a friend told them that the patient was sitting on the curb when EMS was called. (Elizabeth Jamil) Past Medical History - Provider Review Nursing Documentation Reviewed: Yes - Travel History Have you recently traveled outside [place] w/in the past 3 mons?: No - Infectious Disease Hx of Infectious Diseases: None - Tetanus Immunization Tetanus Immunization: Up to Date - Reproductive Currently : No - Past Medical History Past Medical History: No Previous - Cardiac Hx Cardiac Disorders: Yes Hx Hypertension: Yes - Pulmonary Hx Respiratory Disorders: Yes Hx Pneumonia: Yes - Neurological Hx Neurological Disorder: No - HEENT Hx HEENT Disorder: No - Renal Hx Renal Disorder: No - Endocrine/Metabolic Hx Endocrine Disorders: No - Hematological/Oncological Hx Blood Disorders: No - Integumentary Hx Dermatological Disorder: No - Musculoskeletal/Rheumatological Hx Falls: Yes - Gastrointestinal Hx Gastrointestinal Disorders: Yes (gastritis, gi bleed) - Genitourinary/Gynecological Hx Genitourinary Disorders: Yes Hx Hematuria: Yes - Psychiatric Hx Psychophysiologic Disorder: Yes Hx Bipolar Disorder: Yes Hx Depression: Yes Hx Substance Use: No - Past Surgical History Past Surgical History: No Previous - Anesthesia Hx Anesthesia: Yes Hx Anesthesia Reactions: No Hx Malignant Hyperthermia: No - Suicidal Assessment Feels Threatened In Home Enviroment: No <Elizabeth Jamil - Last Filed: 07/20/17 19:41> Family/Social History - Physician Review Nursing Documentation Reviewed: Yes Family/Social History: Unknown Family HX Smoking Status: Light Smoker < 10 Cigarettes Daily Hx Alcohol Use: Yes (daily) Frequency of alcohol use: Daily Hx Substance Use: No Hx Substance Use Treatment: No <Elizabeth Jamil - Last Filed: 07/20/17 19:41> Allergies/Home Meds <Elizabeth Jamil - Last Filed: 07/20/17 19:41> <Jose Raul Ron DO - Last Filed: 07/21/17 05:25> <Eulalio Mills - Last Filed: 07/21/17 06:01> Allergies/Adverse Reactions: Allergies No Known Allergies Allergy (Verified 07/20/17 17:28) Home Medications: Home Meds Medication Instructions Recorded Confirmed No Known Home Med 07/20/17 07/20/17 Review of Systems - Review of Systems Respiratory: absent: SOB, Cough Cardiovascular: absent: Chest Pain, Palpitations Gastrointestinal: absent: Abdominal Pain, Diarrhea, Nausea, Vomiting Musculoskeletal: absent: Arthralgias Neurological: absent: Headache Psychiatric: absent: Anxiety, Depression, Suicidal Ideation <Elizabeth Jamil - Last Filed: 07/20/17 19:41> Physical Exam Vital Signs Reviewed: Yes Temperature: Afebrile Blood Pressure: Normal Pulse: Regular Respiratory Rate: Normal Appearance: Positive for: Well-Appearing, Non-Toxic, Comfortable Pain Distress: None Mental Status: Positive for: Alert and Oriented X 3 - Systems Exam Head: Present: Atraumatic Pupils: Present: PERRL Extroacular Muscles: Present: EOMI Mouth: Present: Moist Mucous Membranes Neck: Present: Normal Range of Motion Respiratory/Chest: Present: Clear to Auscultation, Good Air Exchange. No: Respiratory Distress, Accessory Muscle Use Cardiovascular: Present: Regular Rate and Rhythm, Normal S1, S2. No: Murmurs Abdomen: No: Tenderness, Rebound, Guarding Upper Extremity: Present: Normal ROM Lower Extremity: Present: Normal ROM Skin: Present: Warm, Dry Psychiatric: Present: Alert <Elizabeth Jamil - Last Filed: 07/20/17 19:41> Medical Decision Making <Elizabeth Jamil - Last Filed: 07/20/17 19:41> <Jose Raul Ron DO - Last Filed: 07/21/17 05:25> <Eulalio Mills - Last Filed: 07/21/17 06:01> ED Course and Treatment: 07/20/17 17:35 47yr old male with hx of etoh abuse biba after being found lying on the ground. pt alert, oriented. admits to drinking alcohol prior to arrival. denies pain. pt barking like a dog continuously in ER. ct head; FINDINGS: BRAIN: Mild, diffuse cortical atrophy and ventriculomegaly, which appear somewhat advanced for age. Recommend clinical correlation. No significant acute abnormality identified. No acute hemorrhage seen within the brain. No acute extra-axial fluid collections visualized. No evidence of significant mass effect within the brain. VENTRICLES: See above. BONES/JOINTS: No acute fractures or other acute bony abnormality noted. SOFT TISSUES: No acute abnormality of the visualized soft tissues is seen. SINUSES: Sinus inflammatory disease. There is minimal to mild mild mucosal thickening in the left sphenoid, bilateral ethmoid, and bilateral maxillary sinuses. MASTOID AIR CELLS: Mastoid air cells appear clear. IMPRESSION: - No evidence of acute intracranial injury or fractures. - See above for remaining findings. finger stick: 92 07/20/17 19:41 pt non toxic; sleeping in er. no distress. stable vitals. 07/20/17 19:47 case signed out to dr. ron pending sobriety (Elizabeth Jamil) - RAD Interpretation Radiology Orders: 07/20/17 17:30 HEAD W/O CONTRAST [CT] Stat ED OBSERVATION Date of observation admission: 07/20/17 Time of observation admission: 17:30 <Elizabeth Jamil - Last Filed: 07/20/17 19:41> <Jose Raul Ron DO - Last Filed: 07/21/17 05:25> Discharge: Yes <Eulalio Mills - Last Filed: 07/21/17 06:01> - Observation admission statement Patient is being placed in observation because:: alcohol intoxication (Elizabeth Jamil) - Goals of Observation Goals of observation are:: sobriety (Elizabeth Jamil) - Progress Note Progress Note: 07/20/17 19:49 pt sleeping in er. no distress. (Elizabeth Jamil) 07/20/17 19:47 case signed out to me by SENTHIL Jamil, pending sobriety 07/20/17 21:00 Pt resting, no new complaints. 07/20/17 23:00 Pt in stable condition. Case endorsed to Dr. Mills, pending sobriety. ( Jose Raul Ron DO) 07/20/17 23:00 Case endorsed to me by Dr. Ron, pending sobriety and disposition. Pt in stable condition. 07/21/17 01:00 Pt resting comfortably, no new complaints. 07/21/17 03:00 Pt sleeping, in no acute distress. 07/21/17 05:00 Pt resting comfortably, no new complaints. (Eulalio Mills) Disposition/Present on Arrival - Present on Arrival Any Indicators Present on Arrival: No History of DVT/PE: No History of Uncontrolled Diabetes: No Urinary Catheter: No History of Decub. Ulcer: No History Surgical Site Infection Following: None <Elizabeth Jamil - Last Filed: 07/20/17 19:41> <Jose Raul Ron DO - Last Filed: 07/21/17 05:25> - Present on Arrival Any Indicators Present on Arrival: No - Disposition Have Diagnosis and Disposition been Completed?: Yes Disposition Time: 06:01 <Eulalio Mills - Last Filed: 07/21/17 06:01> - Disposition Diagnosis: Alcohol abuse Condition: GOOD
--- NOTE | 2017-07-20 19:19 | CT ---
EXAM: CT Head Without Intravenous Contrast EXAM DATE/TIME: 07/20/2017 5:30 PM CLINICAL HISTORY: 47 years old, male; Injury or trauma; Fall; Initial encounter; Concussion / head injury; Additional info: Alcohol intoxication TECHNIQUE: Axial computed tomography images of the head/brain without intravenous contrast. All CT scans at this facility use one or more dose reduction techniques, viz.: automated exposure control; ma/kV adjustment per patient size (including targeted exams where dose is matched to indication; i.e. head); or iterative reconstruction technique. COMPARISON: Prior head CT of 07/05/2017 FINDINGS: BRAIN: Mild, diffuse cortical atrophy and ventriculomegaly, which appear somewhat advanced for age. Recommend clinical correlation. No significant acute abnormality identified. No acute hemorrhage seen within the brain. No acute extra-axial fluid collections visualized. No evidence of significant mass effect within the brain. VENTRICLES: See above. BONES/JOINTS: No acute fractures or other acute bony abnormality noted. SOFT TISSUES: No acute abnormality of the visualized soft tissues is seen. SINUSES: Sinus inflammatory disease. There is minimal to mild mild mucosal thickening in the left sphenoid, bilateral ethmoid, and bilateral maxillary sinuses. MASTOID AIR CELLS: Mastoid air cells appear clear. IMPRESSION: - No evidence of acute intracranial injury or fractures. - See above for remaining findings.
[2017-07-20 19:20] VITALS: PULSE 75; RESP 19; TEMP 98
[2017-07-20 21:04] VITALS: BP 122/67; O2SAT 97
== END 2017-07-21 06:01 | disposition home or self-care (01) ==
LOC: ED 17:20 → EROBSV 19:48
PROVIDERS: ADMIT Emergency Medicine; ATTEND Emergency Medicine
DX: F10.10 Alcohol abuse, uncomplicated (principal)
CPT/HCPCS: 70450; 99284; G0378

== ENCOUNTER 2017-07-21 13:16 | Emergency (ER) | payer MEDICAID, OTHER ==
[2017-07-21 13:17] VITALS: BMI 25.9
[2017-07-21 13:29] VITALS: RESP 18; TEMP 97.9
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
[2017-07-21 16:11] VITALS: BP 136/74; PULSE 84; O2SAT 100
== END 2017-07-21 14:35 | disposition home or self-care (01) ==
LOC: ED 13:16
DX: S69.91XA Unspecified injury of right wrist, hand and finger(s), initial encounter (principal); X58.XXXA Exposure to other specified factors, initial encounter

== ENCOUNTER 2017-07-21 18:53 | Observation (INO) | payer MEDICAID, OTHER ==
[2017-07-21 18:54] VITALS: BMI 25.9
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
[2017-07-21 20:43] VITALS: BP 140/82; PULSE 76; RESP 18; TEMP 98.1; O2SAT 97
== END 2017-07-22 04:55 | disposition home or self-care (01) ==
LOC: ED 18:53 → EROBSV 23:13
PROVIDERS: ADMIT Emergency Medicine; ATTEND Emergency Medicine
DX: F10.129 Alcohol abuse with intoxication, unspecified (principal)
CPT/HCPCS: 82948; 99282; G0378

== ENCOUNTER 2017-07-26 17:28 | Observation (INO) | payer MEDICAID, OTHER ==
[2017-07-26 17:56] VITALS: BMI 28.1
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
[2017-07-26 20:58] VITALS: TEMP 98.1
[2017-07-27 06:09] VITALS: BP 119/67; PULSE 97; RESP 17; O2SAT 99
== END 2017-07-27 07:29 | disposition home or self-care (01) ==
LOC: ED 17:28 → EROBSV 20:54
PROVIDERS: ADMIT Emergency Medicine; ATTEND Emergency Medicine
DX: F10.129 Alcohol abuse with intoxication, unspecified (principal)
CPT/HCPCS: 82948; 99284; G0378

== ENCOUNTER 2017-07-31 17:49 | Emergency (ER) | payer MEDICAID, OTHER ==
[2017-07-31 17:50] VITALS: BMI 25.9
[2017-07-31 17:59] VITALS: RESP 18; TEMP 98.2; O2SAT 99
[2017-07-31 19:09] VITALS: BP 138/69; PULSE 79
--- NOTE | 2017-07-31 19:13 | ED PDOC ---
Arrival/HPI - General Chief Complaint: Rib Injury Time Seen by Provider: 07/31/17 17:52 Historian: Patient, EMS - History of Present Illness Narrative History of Present Illness (Text): 07/31/17 19:08 47 y.o. male whose PMHx includes etoh abuse, who admits to heavy etoh use earlier today and became intoxicated. EMS was called as patient was outside a [facility]. He denies any injury or trauma today or SI. He does endorse lower L sided rib pain in the axillary line region x several weeks that is worse with movement and coughing. He had negative rib x-rays about a month ago and is unsure if he may have fallen on it again. He denies any chest pain or changes in his chronic abdominal pain. No fever. Past Medical History - Infectious Disease Hx of Infectious Diseases: None - Tetanus Immunization Tetanus Immunization: Up to Date - Reproductive Currently : No - Past Medical History Past Medical History: No Previous - Cardiac Hx Cardiac Disorders: Yes Hx Hypertension: Yes - Pulmonary Hx Respiratory Disorders: Yes Hx Pneumonia: Yes - Neurological Hx Neurological Disorder: No - HEENT Hx HEENT Disorder: No - Renal Hx Renal Disorder: No - Endocrine/Metabolic Hx Endocrine Disorders: No - Hematological/Oncological Hx Blood Disorders: No - Integumentary Hx Dermatological Disorder: No - Musculoskeletal/Rheumatological Hx Falls: Yes - Gastrointestinal Hx Gastrointestinal Disorders: Yes (gastritis, gi bleed) - Genitourinary/Gynecological Hx Genitourinary Disorders: Yes Hx Hematuria: Yes - Psychiatric Hx Psychophysiologic Disorder: Yes Hx Bipolar Disorder: Yes Hx Depression: Yes Hx Substance Use: No - Past Surgical History Past Surgical History: No Previous - Anesthesia Hx Anesthesia: Yes Hx Anesthesia Reactions: No Hx Malignant Hyperthermia: No - Suicidal Assessment Feels Threatened In Home Enviroment: No Family/Social History Family/Social History: No Known Family HX Smoking Status: Light Smoker < 10 Cigarettes Daily Hx Alcohol Use: Yes (daily) Frequency of alcohol use: Daily Hx Substance Use: No Hx Substance Use Treatment: No Allergies/Home Meds Allergies/Adverse Reactions: Allergies No Known Allergies Allergy (Verified 07/31/17 17:57) Review of Systems - Review of Systems Constitutional: absent: Fevers Eyes: Normal ENT: Normal Respiratory: absent: SOB, Cough Cardiovascular: absent: Chest Pain Gastrointestinal: absent: Abdominal Pain (no acute complaints) Genitourinary Male: absent: Dysuria Musculoskeletal: Other (L rib pain) Neurological: absent: Headache Hemo/Lymphatic: absent: Easy Bleeding, Easy Bruising Psychiatric: absent: Suicidal Ideation Physical Exam Vital Signs Temp Pulse Resp BP Pulse Ox 07/31/17 17:59 98.2 F 81 18 142/71 99 Temperature: Afebrile Blood Pressure: Normal Pulse: Regular Respiratory Rate: Normal Appearance: Positive for: Non-Toxic, Other (disheveled, etoh on breath but normal speech and is at baseline gait, clinically sober) Pain Distress: Mild Mental Status: Positive for: Alert and Oriented X 3 - Systems Exam Head: Present: Atraumatic, Normocephalic Pupils: Present: PERRL Conjunctiva: Present: Normal Mouth: Present: Moist Mucous Membranes Pharnyx: Present: Normal. No: ERYTHEMA, EXUDATE Neck: Present: Normal Range of Motion Respiratory/Chest: Present: Clear to Auscultation, Good Air Exchange, Tender to Palpation (ttp lower 10th-12 rib area on the L side in the mid-axillary line region; no anterior chest ttp). No: Respiratory Distress, Accessory Muscle Use Cardiovascular: Present: Regular Rate and Rhythm, Normal S1, S2. No: Murmurs Abdomen: Present: Normal Bowel Sounds. No: Tenderness, Distention, Peritoneal Signs Back: Present: Normal Inspection Upper Extremity: Present: Normal Inspection. No: Cyanosis, Edema Lower Extremity: Present: Normal Inspection. No: Edema Neurological: Present: GCS=15, CN II-XII Intact, Speech Normal Skin: Present: Warm, Dry, Normal Color. No: Rashes Psychiatric: Present: Alert, Oriented x 3, Normal Insight, Normal Concentration Medical Decision Making ED Course and Treatment: 07/31/17 19:15 Patient with recurrence L rib pain that he has had for weeks. Vitals are normal. He is ttp in the region. X-ray done today with no acute findings as read by me. Patient is clinically sober and ambulatory with normal speech and is awake, alert, and oriented x 3 - ok for d/c on ibuprofen and f/u in the medical clinic. - RAD Interpretation Radiology Orders: 07/31/17 17:56 RIBS LEFT & PA CHEST [RAD] Stat - Medication Orders Current Medication Orders: Discontinued Medications Ibuprofen (Motrin Tab) 600 mg PO STAT STA Stop: 07/31/17 17:58 Last Admin: 07/31/17 18:04 Dose: 600 mg Disposition/Present on Arrival - Present on Arrival Any Indicators Present on Arrival: No History of DVT/PE: No History of Uncontrolled Diabetes: No Urinary Catheter: No History of Decub. Ulcer: No History Surgical Site Infection Following: None - Disposition Have Diagnosis and Disposition been Completed?: Yes Diagnosis: Rib injury Disposition: HOME/ ROUTINE Disposition Time: 19:20 Patient Plan: Discharge Patient Problems: Current Active Problems Problem Status Onset Rib injury Acute Condition: GOOD Discharge Instructions (ExitCare): Rib Contusion (ED) Additional Instructions: Avoid heavy lifting. Stop etoh use. Follow up in the medical clinic. Return to the emergency department if any new concerning symptoms. Prescriptions: Ibuprofen [Motrin Tab] 1 tab PO Q8H PRN #20 tab PRN Reason: Pain, Moderate (4-7) Referrals: [facility] [place] [Outside] - Follow up with primary Forms: [employer] (Citizen [place])
--- NOTE | 2017-08-01 07:29 | RAD ---
PROCEDURE: Radiographs of the Chest and Left Ribs. HISTORY: lateral lower L rib pn, etoh - possible fall again COMPARISON: Portable chest 06/10/2017.. TECHNIQUE: Frontal radiograph of the chest and multiple oblique radiographs of the left ribs were obtained. FINDINGS: LEFT RIBS: No fracture or focal lesion visualized. LUNGS: No infiltrate pleural effusion or pneumothorax identified. PLEURA: No pneumothorax or pleural fluid. CARDIOVASCULAR: Normal sized heart. No pulmonary vascular congestion. OTHER FINDINGS: Note is made of small artifact overlying the proximal metaphysis of the left humerus not identified on the prior chest radiograph central 417 which captures the proximal left humerus adequately to compare. IMPRESSION: Unremarkable radiographs of the chest and left ribs. No left rib fracture.
== END 2017-07-31 19:27 | disposition home or self-care (01) ==
LOC: ED 17:49
DX: S29.9XXA Unspecified injury of thorax, initial encounter (principal); X58.XXXA Exposure to other specified factors, initial encounter; Y93.9 Activity, unspecified; Y92.9 Unspecified place or not applicable

== ENCOUNTER 2017-08-04 18:45 | Inpatient (IN) | payer MEDICAID ==
[2017-08-04 18:46] VITALS: BMI 25.9
[2017-08-04] MEDS ORDERED: Sodium Chloride 0.9% 1,000 ML IV STA (18:53)
--- NOTE | 2017-08-04 19:07 | ED PDOC ---
Arrival/HPI - General Chief Complaint: GI Problem Time Seen by Provider: 08/04/17 18:51 Historian: Patient - History of Present Illness Narrative History of Present Illness (Text): 08/04/17 19:04 47 y/o male, pmh including GI bleeding, chronic alcohol abuse, biba c/o abdominal pain with rectal bleeding with the burning urination and possible hematuria x 1 day with no fall or trauma. Pt. stated that he has been drinking today from 6am until 6pm tonight, been having generalized abdominal pain which he stated that he had 4-5 episodes of bright red bleeding from the rectum along with the burning urinary sensation with hematuria x 3 episodes, no fever or chills, not on any antiplatete or anticoagulant, no rash, no night sweat, no fall or trauma, no other medical or psychological complaints. Past Medical History - Provider Review Nursing Documentation Reviewed: Yes - Infectious Disease Hx of Infectious Diseases: None - Tetanus Immunization Tetanus Immunization: Up to Date - Reproductive Currently : No - Past Medical History Past Medical History: No Previous - Cardiac Hx Cardiac Disorders: Yes Hx Hypertension: Yes - Pulmonary Hx Respiratory Disorders: Yes Hx Pneumonia: Yes - Neurological Hx Neurological Disorder: No - HEENT Hx HEENT Disorder: No - Renal Hx Renal Disorder: No - Endocrine/Metabolic Hx Endocrine Disorders: No - Hematological/Oncological Hx Blood Disorders: No - Integumentary Hx Dermatological Disorder: No - Musculoskeletal/Rheumatological Hx Falls: Yes - Gastrointestinal Hx Gastrointestinal Disorders: Yes (gastritis, gi bleed) - Genitourinary/Gynecological Hx Genitourinary Disorders: Yes Hx Hematuria: Yes - Psychiatric Hx Psychophysiologic Disorder: Yes Hx Bipolar Disorder: Yes Hx Depression: Yes Hx Substance Use: No - Past Surgical History Past Surgical History: No Previous - Anesthesia Hx Anesthesia: Yes Hx Anesthesia Reactions: No Hx Malignant Hyperthermia: No - Suicidal Assessment Feels Threatened In Home Enviroment: No Family/Social History - Physician Review Nursing Documentation Reviewed: Yes Family/Social History: Unknown Family HX Smoking Status: Light Smoker < 10 Cigarettes Daily Hx Alcohol Use: Yes (daily) Hx Substance Use: No Hx Substance Use Treatment: No Allergies/Home Meds Allergies/Adverse Reactions: Allergies No Known Allergies Allergy (Verified 07/31/17 17:57) Home Medications: Home Meds Medication Instructions Recorded Confirmed No Known Home Med 08/04/17 08/04/17 Review of Systems - Review of Systems Constitutional: absent: Fatigue, Fevers Eyes: absent: Vision Changes ENT: absent: Hearing Changes Respiratory: absent: SOB, Cough Cardiovascular: absent: Chest Pain Gastrointestinal: Abdominal Pain, Hematochezia. absent: Diarrhea, Nausea, Vomiting, Hematemesis, Food Intolerance Genitourinary Male: Dysuria, Hematuria. absent: Frequency, Urinary Output Changes Musculoskeletal: absent: Arthralgias, Back Pain, Myalgias Neurological: absent: Headache, Dizziness Physical Exam Vital Signs Reviewed: Yes Vital Signs Temp Pulse Resp BP Pulse Ox 08/05/17 01:00 84 16 118/76 95 08/04/17 21:50 83 16 121/89 95 08/04/17 20:00 89 16 136/90 95 08/04/17 19:10 78 16 121/82 93 L 08/04/17 18:51 98.1 F 84 18 112/76 97 Temperature: Afebrile Blood Pressure: Normal Pulse: Regular Respiratory Rate: Normal Appearance: Positive for: Well-Appearing, Non-Toxic, Comfortable Pain Distress: Mild Mental Status: Positive for: Alert and Oriented X 3 - Systems Exam Head: Present: Atraumatic, Normocephalic Pupils: Present: PERRL Extroacular Muscles: Present: EOMI Conjunctiva: Present: Normal Mouth: Present: Moist Mucous Membranes Neck: Present: Normal Range of Motion Respiratory/Chest: Present: Clear to Auscultation, Good Air Exchange. No: Respiratory Distress, Accessory Muscle Use Cardiovascular: Present: Regular Rate and Rhythm, Normal S1, S2. No: Murmurs Abdomen: Present: Tenderness (epigastric ), Normal Bowel Sounds. No: Distention , Peritoneal Signs, Rebound, Guarding Rectal: Present: Occult Blood, Normal Rectal Tone, Other (+guaiac test. 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 No: Rectal Tenderness, Gross Blood, Melena, Hemorrhoids, Fissures, Nodule/Mass/Lesions Genitourinary Male: Present: Normal External Genitalia, Circumcised Penis. No: Penile Discharge, Testicle Tenderness, Penile Swelling, Masses, Erythema, Hernias, Testicle Swelling Back: Present: Normal Inspection. No: CVA Tenderness, Midline Tenderness Upper Extremity: Present: Normal Inspection. No: Cyanosis, Edema Lower Extremity: Present: Normal Inspection. No: Edema Neurological: Present: GCS=15, Speech Normal, Motor Func Grossly Intact, Gait Normal, Memory Normal Skin: Present: Warm, Dry, Normal Color. No: Rashes Psychiatric: Present: Alert, Oriented x 3, Normal Insight, Normal Concentration Medical Decision Making ED Course and Treatment: 08/04/17 19:11 -Positive guaiac -labs/ua/type and screen -CT Abdomen and pelvis -EKG -Chest xray -IVF/protonix -Observe and reasses 08/05/17 00:06 -EKG: NSR @ 78 BPM, no ST elevation or depression, no T wave inversion, compared with previous ekg. -Chest xray: no active disease -Labs are non-significant except hgb 13.1, elevation of AST/ALT due to the alcohol abuse -UA show no UTI with no RBC noted -ETOH level 357 -CT Abdomen and pelvis show: Mild left ureteral dilatation and and urothelial thickening. Bladder wall thickening. This constellation of findings can be seen in the setting of a urinary tract infection. Recommend clinical correlation. - Dilatation of the common bile duct, cause not identified. Recommend correlation with LFTs for laboratory evidence of biliary obstruction, and followup right upper quadrant ultrasound as indicated. - Otherwise, no evidence of significant acute process. - Findings suspicious for a subtle, solid, well defined 3.5 cm mass in the pancreatic tail region. This could represent a large splenule given its appearance, however, recommend further evaluation with pancreatic MRI, on a nonemergent basis, to exclude other etiologies such as pancreatic neuroendocrine tumors. -Pt. will need admission for GI bleeding with possible pancreatic cancer vs. enlarge splenule, will admit to the hospitalist, hospitalist and medical genetics director paged. 08/05/17 00:15 -I spoke to Dr. Annia Mosqueda and the medical genetics director, discussed about the case in detail including labs/radiology studies including possible pancreatic mass vs. enlarged splenue, agreed to observe the patient overnight. -I discussed with DR. Mills, he agreed on the admission plan and he will put in the observation order. - Lab Interpretations Lab Results: 08/04/17 18:57 08/04/17 18:57 Lab Results 08/04/17 20:00: Urine Color Yellow, Urine Appearance Clear, Urine pH 6.5, Ur Specific [place] <= 1.005, Urine Protein Negative, Urine Glucose (UA) Negative, Urine Ketones Negative, Urine Blood Trace-intact H, Urine Nitrate Negative, Urine Bilirubin Negative, Urine Urobilinogen 0.2, Ur Leukocyte Esterase Negative , Urine RBC 0 - 2, Urine WBC 1 - 3, Ur Epithelial Cells 4 - 5, Urine Bacteria Few 08/04/17 18:57: Lipase 206 08/04/17 18:57: Alcohol, Quantitative 357 H* 08/04/17 18:57: PT 11.3, INR 1.05, APTT 29.7 08/04/17 18:57: Blood Type A POSITIVE, Antibody Screen Negative, BBK History Checked Patient has bt 08/04/17 18:57: WBC 11.0 D, RBC 3.57, Hgb 13.1 L, Hct 36.6 L, MCV 102.5, MCH 36.7 H, MCHC 35.8, RDW 14.6 H, Plt Count 205, MPV 10.1, Gran % 58.4, Lymph % ( Auto) 30.9, Lucas % (Auto) 9.5 H, Eos % (Auto) 0.7 L, Baso % (Auto) 0.5, Gran # 6.43, Lymph # 3.4, Lucas # 1.1 H, Eos # 0.1, Baso # 0.05 08/04/17 18:57: Sodium 139, Potassium 3.9, Chloride 97 L, Carbon Dioxide 25, Anion Gap 21 H, BUN 4 L, Creatinine 0.5, Est GFR ( Amer) > 60, Est GFR ( Non-Af Amer) > 60, Random Glucose 96, Calcium 9.8, Total Bilirubin 1.0, AST 341 H, ALT 94 H, Alkaline Phosphatase 579 H, Total Protein 9.5 H, Albumin 4.6, Globulin 4.9, Albumin/Globulin Ratio 0.9 L I have reviewed the lab results: Yes - RAD Interpretation Radiology Orders: 08/04/17 19:02 ABD PELVIS PO & IV CONTRAST [CT] Stat 08/04/17 19:03 CHEST PORTABLE [RAD] Stat Chest x-ray: no active disease FINDINGS: LOWER THORAX: No infiltrate seen in the lung bases. ABDOMEN: LIVER: Fatty infiltration of the liver. Mild hepatomegaly, with the liver measuring 18 cm in length on the coronal images. GALLBLADDER AND BILE DUCTS: Dilatation of the common bile duct, which measures up to 1 cm in diameter (normal less than 6 mm). No radioopaque common bile duct stones visualized. Mild gallbladder dilatation. No radioopaque gallstones are seen. No evidence of pericholecystic fluid or inflammation. PANCREAS: Best seen on image 60 of series 2, there is a suspected subtle, solid- appearing, homogeneous, round, well defined mass in the tail of the pancreas region, measuring 3.5 cm, which is isodense to the normal pancreatic parenchyma.. This has a enhancement pattern similar to the spleen. No CT evidence of acute pancreatitis. SPLEEN: No acute abnormality of the spleen identified. ADRENALS: No acute abnormality of the adrenal glands identified. KIDNEYS AND URETERS: Mild left ureteral dilatation, as well as left urothelial thickening. No causative obstructing stones are seen. No evidence of significant hydronephrosis. No evidence of abnormal renal enhancement. STOMACH AND BOWEL: No acute abnormality of the bowel identified. No evidence of diffuse colitis/pancolitis. No evidence of diverticulitis. No evidence of bowel obstruction. No acute abnormality of the stomach or duodenum identified. APPENDIX: Appendix is seen, and is within normal limits in appearance. PELVIS: BLADDER: Mild thickening of the bladder wall. Mild bladder dilatation. REPRODUCTIVE: No acute abnormality of the reproductive organs is seen. ABDOMEN and PELVIS: INTRAPERITONEAL SPACE: No evidence of free intraperitoneal air or fluid. BONES/JOINTS: No acute fractures or other acute bony abnormality noted. SOFT TISSUES: No acute abnormality of the visualized soft tissues is seen. VASCULATURE: No evidence of abdominal aortic aneurysm. No evidence of periaortic hemorrhage. LYMPH NODES: No evidence of diffuse lymphadenopathy. IMPRESSION: - Mild left ureteral dilatation and and urothelial thickening. Bladder wall thickening. This constellation of findings can be seen in the setting of a urinary tract infection. Recommend clinical correlation. - Dilatation of the common bile duct, cause not identified. Recommend correlation with LFTs for laboratory evidence of biliary obstruction, and followup right upper quadrant ultrasound as indicated. - Otherwise, no evidence of significant acute process. - Findings suspicious for a subtle, solid, well defined 3.5 cm mass in the pancreatic tail region. This could represent a large splenule given its appearance, however, recommend further evaluation with pancreatic MRI, on a nonemergent basis, to exclude other etiologies such as pancreatic neuroendocrine tumors. - See above for remaining findings. Thank you for allowing us to participate in the care of your patient. Dictated and Authenticated by: Amber Richard MD 08/04/2017 10:48 PM Eastern Time ([place] & [place]) Biological Aide: Radiologist - EKG Interpretation EKG Interpretation (Text): 08/04/17 19:23 NSR @ 78 BPM, no ST elevation or depression, no T wave inversion, compared with previous ekg. Interpreted by ED Physician: Yes Type: 12 lead EKG Comparison: Com.w/previous EKG - Medication Orders Current Medication Orders: Ibuprofen (Motrin Tab) 600 mg PO Q6H PRN PRN Reason: Headache Last Admin: 08/05/17 16:43 Dose: 600 mg Lorazepam (Ativan) 1 mg IVP Q6H PRN; Protocol PRN Reason: Anxiety Last Admin: 08/05/17 13:28 Dose: 1 mg Ondansetron HCl (Zofran Inj) 4 mg IVP Q4H PRN PRN Reason: Nausea/Vomiting Pantoprazole Sodium (Protonix Inj) 40 mg IVP DAILY VÍCTOR Last Admin: 08/05/17 10:46 Dose: 40 mg Senna/Docusate Sodium (Senokot S 50 Mg-8.6 Mg) 1 tab PO DAILY VÍCTOR Last Admin: 08/05/17 10:45 Dose: 1 tab Discontinued Medications Sodium Chloride (Sodium Chloride 0.9%) 1,000 mls @ 999 mls/hr IV .Q1H1M STA Stop: 08/04/17 19:53 Last Admin: 08/04/17 19:16 Dose: 999 mls/hr Multivitamins/Vitamin C 10 ml/Thiamine HCl 100 mg/ Folic Acid 1 mg/ Sodium Chloride 1,011.2 mls @ 100 mls/hr IV .Q10H7M ONE Stop: 08/05/17 11:48 Last Admin: 08/05/17 02:18 Dose: 100 mls/hr Iohexol (Omnipaque 240 (50 Ml)) Confirm Administered Dose 50 ml .ROUTE .STK-MED ONE Stop: 08/04/17 19:20 Iohexol (Omnipaque 350 100 Ml) Confirm Administered Dose 350 mg .ROUTE .STK-MED ONE Stop: 08/04/17 21:29 Pantoprazole Sodium (Protonix Inj) 40 mg IVP STAT STA Stop: 08/04/17 19:04 Last Admin: 08/04/17 19:26 Dose: 40 mg - PA / CERTIFIED PATHOLOGY ASSISTANT / Resident Statement MD/DO has reviewed & agrees with the documentation as recorded. Disposition/Present on Arrival - Present on Arrival Any Indicators Present on Arrival: No History of DVT/PE: No History of Uncontrolled Diabetes: No Urinary Catheter: No History of Decub. Ulcer: No History Surgical Site Infection Following: None - Disposition Have Diagnosis and Disposition been Completed?: Yes Diagnosis: Gastrointestinal bleeding, Alcohol dependence, Hematuria, Alcohol abuse, Alcohol intoxication, Abnormal abdominal CT scan Disposition: HOSPITALIZED Disposition Time: 00:07 Patient Plan: Observation, Telemetry Patient Problems: Current Active Problems Problem Status Onset Alcohol abuse Chronic Alcohol dependence Acute Alcohol intoxication Acute Gastrointestinal bleeding Acute Hematuria Acute Abnormal abdominal CT scan Acute Condition: STABLE
[2017-08-04] MEDS ORDERED: Iohexol 240 (50 ml) ONE (19:19)
[2017-08-04 19:43] LABS: ALB/GLOB RATIO 0.9 (1.1-1.8); ALKALINE PHOSPHATASE 579 U/L (38-126); ALT/SGPT 94 U/L (7-56); AST/SGOT 341 U/L (17-59); BLOOD UREA NITROGEN 4 mg/dL (7-21); CALCIUM 9.8 mg/dL (8.4-10.5); CARBON DIOXIDE 25 mmol/L (21-33); CHLORIDE 97 mmol/L (98-107); GFR AFRICAN-AMERICAN > 60; GLUCOSE,RANDOM 96 mg/dL (70-110); POTASSIUM 3.9 mmol/L (3.6-5.0); SODIUM 139 mmol/L (132-148); TOTAL PROTEIN 9.5 g/dL (5.8-8.3)
[2017-08-04 20:00] LABS: INR 1.05 (0.93-1.08); PARTIAL THROMBOPLASTIN TIME 29.7 Seconds (23.7-30.8)
[2017-08-04 20:04] LABS: BASO # 0.05 K/mm3 (0.0-2.0); BASO % 0.5 % (0.0-3.0); EOS # 0.1 (0.0-0.7); EOS % 0.7 % (1.5-5.0); GRAN # 6.43 (1.4-6.5); GRAN % 58.4 % (50.0-68.0); HEMATOCRIT 36.6 % (42.0-52.0); LYMPH # 3.4 (1.2-3.4); LYMPH % 30.9 % (22.0-35.0); MEAN CELL VOLUME 102.5 fl (80.0-105.0); MEAN CORPUSCULAR HEMOGLOBIN 36.7 pg (25.0-35.0); MEAN CORPUSCULAR HGB CONC 35.8 g/dl (31.0-37.0); MEAN PLATELET VOLUME 10.1 fl (7.0-11.0); MONO # 1.1 (0.1-0.6); MONO % 9.5 % (1.0-6.0); RED CELL DISTRIBUTION WIDTH 14.6 % (11.5-14.5)
[2017-08-04 20:40] LABS: PH,URINE 6.5 (4.7-8.0); URINE BILIRUBIN NEGATIVE (NEGATIVE); URINE BLOOD TRACE-INTACT (NEGATIVE); URINE GLUCOSE (UA) NEGATIVE (NEGATIVE); URINE KETONE NEGATIVE (NEGATIVE); URINE LEUKOCYTE ESTERASE NEGATIVE Leu/uL (NEGATIVE); URINE PROTEIN NEGATIVE mg/dL (<30 mg/dL); URINE UROBILINOGEN 0.2 E.U./dL (<1 E.U./dL)
[2017-08-04 20:45] LABS: URINE APPEARANCE CLEAR (CLEAR); URINE COLOR YELLOW (YELLOW)
[2017-08-04 20:54] LABS: URINE BACTERIA FEW (NEG); URINE RBC 0 - 2 /hpf (0-2)
[2017-08-04] MEDS ORDERED: Iohexol 350 MG/100 ML VIAL ONE (21:28)
--- NOTE | 2017-08-04 22:48 | CT ---
EXAM: CT Abdomen and Pelvis With Intravenous Contrast EXAM DATE/TIME: 08/04/2017 7:02 PM CLINICAL HISTORY: 47 years old, male; Pain; Abdominal pain; Generalized; Additional info: Generalized abdominal pain, gi bleeding history TECHNIQUE: Axial computed tomography images of the abdomen and pelvis with intravenous contrast. All CT scans at this facility use one or more dose reduction techniques, viz.: automated exposure control; ma/kV adjustment per patient size (including targeted exams where dose is matched to indication; i.e. head); or iterative reconstruction technique. Coronal and sagittal reformatted images were created and reviewed. CONTRAST: 91 mL of OMNI 350 administered intravenously. COMPARISON: Prior CT abdomen and pelvis of 06/10/2017 FINDINGS: LOWER THORAX: No infiltrate seen in the lung bases. ABDOMEN: LIVER: Fatty infiltration of the liver. Mild hepatomegaly, with the liver measuring 18 cm in length on the coronal images. GALLBLADDER AND BILE DUCTS: Dilatation of the common bile duct, which measures up to 1 cm in diameter (normal less than 6 mm). No radioopaque common bile duct stones visualized. Mild gallbladder dilatation. No radioopaque gallstones are seen. No evidence of pericholecystic fluid or inflammation. PANCREAS: Best seen on image 60 of series 2, there is a suspected subtle, solid-appearing, homogeneous, round, well defined mass in the tail of the pancreas region, measuring 3.5 cm, which is isodense to the normal pancreatic parenchyma.. This has a enhancement pattern similar to the spleen. No CT evidence of acute pancreatitis. SPLEEN: No acute abnormality of the spleen identified. ADRENALS: No acute abnormality of the adrenal glands identified. KIDNEYS AND URETERS: Mild left ureteral dilatation, as well as left urothelial thickening. No causative obstructing stones are seen. No evidence of significant hydronephrosis. No evidence of abnormal renal enhancement. STOMACH AND BOWEL: No acute abnormality of the bowel identified. No evidence of diffuse colitis/pancolitis. No evidence of diverticulitis. No evidence of bowel obstruction. No acute abnormality of the stomach or duodenum identified. APPENDIX: Appendix is seen, and is within normal limits in appearance. PELVIS: BLADDER: Mild thickening of the bladder wall. Mild bladder dilatation. REPRODUCTIVE: No acute abnormality of the reproductive organs is seen. ABDOMEN and PELVIS: INTRAPERITONEAL SPACE: No evidence of free intraperitoneal air or fluid. BONES/JOINTS: No acute fractures or other acute bony abnormality noted. SOFT TISSUES: No acute abnormality of the visualized soft tissues is seen. VASCULATURE: No evidence of abdominal aortic aneurysm. No evidence of periaortic hemorrhage. LYMPH NODES: No evidence of diffuse lymphadenopathy. IMPRESSION: - Mild left ureteral dilatation and and urothelial thickening. Bladder wall thickening. This constellation of findings can be seen in the setting of a urinary tract infection. Recommend clinical correlation. - Dilatation of the common bile duct, cause not identified. Recommend correlation with LFTs for laboratory evidence of biliary obstruction, and followup right upper quadrant ultrasound as indicated. - Otherwise, no evidence of significant acute process. - Findings suspicious for a subtle, solid, well defined 3.5 cm mass in the pancreatic tail region. This could represent a large splenule given its appearance, however, recommend further evaluation with pancreatic MRI, on a nonemergent basis, to exclude other etiologies such as pancreatic neuroendocrine tumors. - See above for remaining findings.
[2017-08-05] MEDS ORDERED: Multivitamin (MVI) 10 ML, Thiamine 100 MG, Folic Acid 1 MG in Sodium Chloride 0.9% 1,00... IV ONE (01:42)
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
[2017-08-05 07:41] LABS: BASO # 0.05 K/mm3 (0.0-2.0); BASO % 0.6 % (0.0-3.0); EOS # 0.1 (0.0-0.7); EOS % 0.6 % (1.5-5.0); GRAN # 5.34 (1.4-6.5); HEMATOCRIT 37.1 % (42.0-52.0); LYMPH # 1.6 (1.2-3.4); LYMPH % 20.8 % (22.0-35.0); MEAN CELL VOLUME 104.2 fl (80.0-105.0); MEAN CORPUSCULAR HEMOGLOBIN 35.7 pg (25.0-35.0); MEAN CORPUSCULAR HGB CONC 34.2 g/dl (31.0-37.0); MEAN PLATELET VOLUME 9.9 fl (7.0-11.0); MONO # 0.7 (0.1-0.6); RED CELL DISTRIBUTION WIDTH 14.9 % (11.5-14.5); WHITE BLOOD COUNT 7.8 10^3/ul (4.5-11.0)
[2017-08-05 08:19] LABS: ALKALINE PHOSPHATASE 564 U/L (38-126); ALT/SGPT 90 U/L (7-56); AST/SGOT 327 U/L (17-59); BLOOD UREA NITROGEN 4 mg/dL (7-21); CALCIUM 9.5 mg/dL (8.4-10.5); CARBON DIOXIDE 26 mmol/L (21-33); CHLORIDE 102 mmol/L (98-107); GFR AFRICAN-AMERICAN > 60; GLUCOSE,RANDOM 86 mg/dL (70-110); MAGNESIUM 1.4 mg/dL (1.7-2.2); PHOSPHOROUS 3.6 mg/dL (2.5-4.5); POTASSIUM 4.2 mmol/L (3.6-5.0); SODIUM 143 mmol/L (132-148); TOTAL PROTEIN 8.9 g/dL (5.8-8.3)
[2017-08-05 09:20] LABS: IRON 138 ug/dL (45-180)
--- NOTE | 2017-08-05 09:46 | RAD ---
HISTORY: medical clearance COMPARISON: 06/26/2017 FINDINGS: LUNGS: The lungs are well inflated and clear. PLEURA: No significant pleural effusion identified, no pneumothorax apparent. CARDIOVASCULAR: Normal. OSSEOUS STRUCTURES: No significant abnormalities. VISUALIZED UPPER ABDOMEN: Normal. OTHER FINDINGS: None. IMPRESSION: No active pulmonary disease.
[2017-08-05] MEDS: Docusate-Senna 50 mg-8.6 mg Tab PO SCH (10:45)
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
--- NOTE | 2017-08-05 12:12 | CARD ---
APPROVED REPORT EKG Measurement Heart [id number] <Conclusion> Normal sinus rhythm Cannot rule out Anterior infarct, age undetermined Abnormal ECG
[2017-08-06 07:23] LABS: BASO # 0.03 K/mm3 (0.0-2.0); BASO % 0.3 % (0.0-3.0); EOS % 0.4 % (1.5-5.0); GRAN # 7.04 (1.4-6.5); GRAN % 79.3 % (50.0-68.0); HEMATOCRIT 35.7 % (42.0-52.0); LYMPH % 11.1 % (22.0-35.0); MEAN CELL VOLUME 104.4 fl (80.0-105.0); MEAN CORPUSCULAR HEMOGLOBIN 35.7 pg (25.0-35.0); MEAN CORPUSCULAR HGB CONC 34.2 g/dl (31.0-37.0); MEAN PLATELET VOLUME 10.3 fl (7.0-11.0); MONO # 0.8 (0.1-0.6); MONO % 8.9 % (1.0-6.0); RED CELL DISTRIBUTION WIDTH 14.2 % (11.5-14.5); WHITE BLOOD COUNT 8.9 10^3/ul (4.5-11.0)
--- NOTE | 2017-08-06 07:23 | CP.PCM.PN ---
<Carlos Corral - Last Filed: 08/06/17 16:42> Subjective - Date & Time of Evaluation Date of Evaluation: 08/06/17 Time of Evaluation: 07:20 - Subjective Subjective: GI Progress Note Pt seen and examined at bedside. Pt with a bloody BM yesterday evening as per nursing. Pt also still complaining of LLQ abdominal pain. Pt also admits to burning on urination and increased urinary frequency. 12 point ROS performed, negative unless otherwise stated. Objective - Vital Signs/Intake and Output Vital Signs (last 24 hours): Temp Pulse Resp BP Pulse Ox 99.2 F 93 H 16 152/96 H 100 08/05/17 16:00 08/05/17 16:00 08/05/17 16:00 08/06/17 00:30 08/05/17 16:00 Intake and Output: 08/06/17 08/06/17 06:59 18:59 Intake Total 600 480 Balance 600 480 - Medications Medications: Current Medications Chlordiazepoxide (Librium) 25 mg PO Q8 PRN; Protocol PRN Reason: Symptoms of alcohol withdrawl Last Admin: 08/05/17 17:50 Dose: 25 mg Ibuprofen (Motrin Tab) 600 mg PO Q6H PRN PRN Reason: Headache Last Admin: 08/05/17 16:43 Dose: 600 mg Lorazepam (Ativan) 2 mg IVP Q4H PRN; Protocol PRN Reason: Anxiety Lorazepam (Ativan) 1 mg IVP Q2H PRN; Protocol PRN Reason: Anxiety Last Admin: 08/05/17 17:50 Dose: 1 mg Ondansetron HCl (Zofran Inj) 4 mg IVP Q4H PRN PRN Reason: Nausea/Vomiting Pantoprazole Sodium (Protonix Inj) 40 mg IVP DAILY [facility] Last Admin: 08/05/17 10:46 Dose: 40 mg Senna/Docusate Sodium (Senokot S 50 Mg-8.6 Mg) 1 tab PO DAILY [facility] Last Admin: 08/05/17 10:45 Dose: 1 tab - Labs Labs: PT 11.3 Seconds (9.9-11.8) 08/04/17 18:57 INR 1.05 (0.93-1.08) 08/04/17 18:57 APTT 29.7 Seconds (23.7-30.8) 08/04/17 18:57 - Constitutional Appears: Non-toxic, No Acute Distress - Head Exam Head Exam: ATRAUMATIC, NORMAL INSPECTION, NORMOCEPHALIC - ENT Exam ENT Exam: Mucous Membranes Moist, Normal Exam - Respiratory Exam Respiratory Exam: Clear to Ausculation Bilateral, NORMAL BREATHING PATTERN. absent: Rales, Rhonchi, Wheezes - Cardiovascular Exam Cardiovascular Exam: RRR, +S1, +S2 - GI/Abdominal Exam GI & Abdominal Exam: Soft, Tenderness (LLQ), Normal Bowel Sounds. absent: Distended, Guarding, Rebound - Extremities Exam Extremities Exam: absent: Calf Tenderness, Pedal Edema - Neurological Exam Neurological Exam: Alert, Awake, Oriented x3 Additional comments: Tremulous - Psychiatric Exam Psychiatric exam: Normal Affect, Normal Mood - Skin Skin Exam: Intact, Normal Color, Warm Assessment and Plan - Assessment and Plan (Free Text) Plan: 47 y/o M with PMH of HTN and Chronic alcohol abuse presents with abdominal pain and hematochezia. Pt with new episode of bloody stool, but diarrhea is improved at this time. Pt will benefit from a colonoscopy and is agreeable. CT abdomen/ pelvis shows CBD dilation and 3.5 mm pancreatic tail mass. Pt chronically has CBD dilatation from prior imaging and will need pancreatic CT to further evaluate pancreatic lesion. Will continue to monitor patient for any acute changes. Plan: Monitor H and H Pancreatic CT Colonoscopy tomorrow NPO after midnight Alcohol withdrawal management as per primary team Will continue to monitor Shayna, PGY-2 <Mello Timmons - Last Filed: 08/06/17 16:49> Objective - Vital Signs/Intake and Output Vital Signs (last 24 hours): Temp Pulse Resp BP Pulse Ox 97.8 F 80 18 179/69 H 97 08/06/17 08:00 08/06/17 08:00 08/06/17 08:00 08/06/17 08:00 08/06/17 08:00 Intake and Output: 08/06/17 08/06/17 06:59 18:59 Intake Total 600 960 Balance 600 960 - Medications Medications: Current Medications Bisacodyl (Dulcolax) 10 mg PO ONCE ONE Stop: 08/06/17 19:01 Chlordiazepoxide (Librium) 25 mg PO Q8 PRN; Protocol PRN Reason: Symptoms of alcohol withdrawl Last Admin: 08/06/17 08:12 Dose: 25 mg Lorazepam (Ativan) 2 mg IVP Q4H PRN; Protocol PRN Reason: Anxiety Last Admin: 08/06/17 14:03 Dose: 2 mg Lorazepam (Ativan) 1 mg IVP Q2H PRN; Protocol PRN Reason: Anxiety Last Admin: 08/06/17 09:53 Dose: 1 mg Metoprolol Tartrate (Lopressor) 25 mg PO BID [facility] Ondansetron HCl (Zofran Inj) 4 mg IVP Q4H PRN PRN Reason: Nausea/Vomiting Pantoprazole Sodium (Protonix Inj) 40 mg IVP DAILY [facility] Last Admin: 08/06/17 09:54 Dose: 40 mg Senna/Docusate Sodium (Senokot S 50 Mg-8.6 Mg) 1 tab PO DAILY [facility] Last Admin: 08/06/17 09:53 Dose: 1 tab - Labs Labs: 08/06/17 07:15 08/06/17 07:15 PT 11.3 Seconds (9.9-11.8) 08/04/17 18:57 INR 1.05 (0.93-1.08) 08/04/17 18:57 APTT 29.7 Seconds (23.7-30.8) 08/04/17 18:57 Attending/Attestation - Attestation I have personally seen and examined this patient.: Yes I have fully participated in the care of the patient.: Yes I have reviewed all pertinent clinical information, including history, physical exam and plan: Yes Notes (Text): 08/06/17 16:48 47 year old male with h/o Etoh abuse admitted with abdominal pain and BRBPR. 1. Brbpr 2. Common bile duct dilation Plan: -prep for colonoscopy tomorrow -monitor for bleeding -elective pancreatic protocol ct -etoh cessation advised
[2017-08-06 08:11] LABS: ALKALINE PHOSPHATASE 509 U/L (38-126); ALT/SGPT 84 U/L (7-56); AST/SGOT 224 U/L (17-59); BLOOD UREA NITROGEN 5 mg/dL (7-21); CALCIUM 9.5 mg/dL (8.4-10.5); CARBON DIOXIDE 27 mmol/L (21-33); CHLORIDE 99 mmol/L (98-107); GFR AFRICAN-AMERICAN > 60; GLUCOSE,RANDOM 101 mg/dL (70-110); POTASSIUM 3.6 mmol/L (3.6-5.0); SODIUM 138 mmol/L (132-148); TOTAL PROTEIN 8.3 g/dL (5.8-8.3)
[2017-08-06 08:57] VITALS: RESP 18
[2017-08-06] MEDS: Docusate-Senna 50 mg-8.6 mg Tab PO SCH (09:53)
[2017-08-06] MEDS ORDERED: Peg-Electrolyte Oral Soln 4L (Golytely) PO ONE (13:00)
--- NOTE | 2017-08-06 13:27 | CP.PCM.PN ---
<Boby Bales - Last Filed: 08/06/17 13:40> Subjective - Date & Time of Evaluation Date of Evaluation: 08/06/17 Time of Evaluation: 09:24 - Subjective Subjective: This patient was seen and examined at bedside this morning. Per nursing staff last night the patient had two episodes of BRBPR yesterday. The patient also reports a little blood today with his bowel movement. The patient is also reporting diffuse abdominal pain rating it 4/10. The patient denies any chest pain, shortness of breath, nausea, vomiting, changes in vision, lightheaded, or any other complaints. Objective - Vital Signs/Intake and Output Vital Signs (last 24 hours): Temp Pulse Resp BP Pulse Ox 97.8 F 80 18 179/69 H 97 08/06/17 08:00 08/06/17 08:00 08/06/17 08:00 08/06/17 08:00 08/06/17 08:00 Intake and Output: 08/06/17 08/06/17 06:59 18:59 Intake Total 600 480 Balance 600 480 - Medications Medications: Current Medications Bisacodyl (Dulcolax) 5 mg PO ONCE ONE Stop: 08/06/17 19:01 Chlordiazepoxide (Librium) 25 mg PO Q8 PRN; Protocol PRN Reason: Symptoms of alcohol withdrawl Last Admin: 08/06/17 08:12 Dose: 25 mg Lorazepam (Ativan) 2 mg IVP Q4H PRN; Protocol PRN Reason: Anxiety Lorazepam (Ativan) 1 mg IVP Q2H PRN; Protocol PRN Reason: Anxiety Last Admin: 08/06/17 09:53 Dose: 1 mg Ondansetron HCl (Zofran Inj) 4 mg IVP Q4H PRN PRN Reason: Nausea/Vomiting Pantoprazole Sodium (Protonix Inj) 40 mg IVP DAILY VÍCTOR Last Admin: 08/06/17 09:54 Dose: 40 mg Senna/Docusate Sodium (Senokot S 50 Mg-8.6 Mg) 1 tab PO DAILY VÍCTOR Last Admin: 08/06/17 09:53 Dose: 1 tab - Labs Labs: 08/06/17 07:15 08/06/17 07:15 PT 11.3 Seconds (9.9-11.8) 08/04/17 18:57 INR 1.05 (0.93-1.08) 08/04/17 18:57 APTT 29.7 Seconds (23.7-30.8) 08/04/17 18:57 - Head Exam Head Exam: ATRAUMATIC, NORMAL INSPECTION, NORMOCEPHALIC - Eye Exam Eye Exam: EOMI, Normal appearance, PERRL Pupil Exam: NORMAL ACCOMODATION, PERRL. absent: Irregular - ENT Exam ENT Exam: Mucous Membranes Moist, Normal Exam - Respiratory Exam Respiratory Exam: NORMAL BREATHING PATTERN - Cardiovascular Exam Cardiovascular Exam: REGULAR RHYTHM, RRR, +S1, +S2 - GI/Abdominal Exam GI & Abdominal Exam: Tenderness, Normal Bowel Sounds - Rectal Exam Rectal Exam: Hemorrhoids - Back Exam Back Exam: NORMAL INSPECTION. absent: paraspinal tenderness - Neurological Exam Neurological Exam: Alert, Awake, CN II-XII Intact - Psychiatric Exam Psychiatric exam: Normal Affect, Normal Mood - Skin Skin Exam: Dry Assessment and Plan - Assessment and Plan (Free Text) Assessment: Patient is a 47 year old male with PMHx of alcohol abuse, hypertension ( according to chart) who is being admitted for evaluation and treatment of abdominal pain, GIB, and EtOH intoxication/withdrawal Plan: 1. Abdominal Pain; Transminitis - Likely 2/2 alcoholic hepatitis vs constipation vs biliary ductal obstruction vs pancreatitis vs cholecystitis vs mesenteric ischemia - CT abd/pelv in ER significant for 1cm dilated CBD, 3.5 cm pancreatic tail mass , and left sided ureteral dilation with bladder wall thickening - Transaminitis (AST>>ALT), elevated Alk Phos w/o hyperbilirubinemia; lipase normal - GGT ordered to differentiate source of Alk phos - Hepatitis panel ordered, previously negative - Abdominal and Pelvis Ct: Showed subtle 3.5 cm mass in the pancreatic tail region. Recommend MRI. Dilation of left common bile duct -Pancreatic Protocol Ct ordered. F/U with results. - Continue Senna - Tolerating Liquid diet. Will advance as tolerated. - GI consulted (Iron), appreciate recs 2. GIB - apparently lower GIB according to history - Likely 2/2 nonpalpable internal hemorrhoids vs diverticular bleed vs angiodysplasia vs rectal varices vs mesenteric ischemia - GUIAC positive per ED staff - H/H stable 12.2/35.7 - Had two episodes of BRBPR yesterday evening. - Rectal exam noted for palpable hemorrhoid - GI consult appreciated. 3. ETOH Abuse - Serum EtOH level 357 in ER; patient currently intoxicated, likely the cause of his disorientation; not currently in withdrawal - Continue CIWA protocol - Ativan 1mg q6 Q2h AND 2mg q4h for withdrawl symptoms. Will monitor closely 4. Dysuria, hematuria, and frequency - UA in ER shows hematuria with few urine bacteria, but negative LE and nitrites and presence of epithelial cells indicates likely contaminants - CT abd/pelv in ER shows mildly dilated left ureter and bladder wall thickening - Hold Abx at this time, patient is afebrile with no leukocytosis. Findings and symptoms may be explained by other etiologies (EtOH diuresis, - Urology consult pending. F/U with rec's 5. Pancreatic mass - Per CT read 'subtle, solid, well defined 3.5 cm mass in the pancreatic tail region which could represent a large splenule given its appearance/echogenicity' - Reexamine findings with daytime radiologist; consider pancreas MRI - GI consult rec's appreciated. 6. History of HTN - 152/96 today. Metoprolol 25 mg BID started. Will continue to monitor closely. GI ppx -continue Protonix DVT ppx -continue SCD's <Ananya PERERA,Priyank - Last Filed: 08/07/17 14:17> Objective - Vital Signs/Intake and Output Vital Signs (last 24 hours): Temp Pulse Resp BP Pulse Ox 98.8 F 91 H 18 131/86 100 08/06/17 16:00 08/06/17 16:00 08/06/17 16:00 08/06/17 16:00 08/06/17 16:00 - Labs Labs: 08/06/17 07:15 08/06/17 07:15 PT 11.3 Seconds (9.9-11.8) 08/04/17 18:57 INR 1.05 (0.93-1.08) 08/04/17 18:57 APTT 29.7 Seconds (23.7-30.8) 08/04/17 18:57 Attending/Attestation - Attestation I have personally seen and examined this patient.: Yes I have fully participated in the care of the patient.: Yes I have reviewed all pertinent clinical information, including history, physical exam and plan: Yes Notes (Text): 08/07/17 14:14 Patient was seen and examined with medical assistant supervisor. 47 yrs old male with PMH of ongoing alcohol abuse, elevated LFT, and non compliance with medication is admitted for alcohol withdrawal, intermittent history of lower GI bleeding.Hemoglobin is stable, patient is scheduled for Colonoscopy by GI tomorrow. Patient CT scan finding are suspicious for Pancreatitic malignancy, will discuss with GI regarding EUS/ERCP vs MRI. Management plan was discussed in detail with patient Education was provided.
[2017-08-06 18:07] VITALS: BP 131/86; PULSE 91; TEMP 98.8; O2SAT 100
[2017-08-06] MEDS ORDERED: Bisacodyl 5mg EC Tab PO ONE ×2 (19:00)
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
--- NOTE | 2017-08-06 21:30 | CT ---
EXAM: CT Abdomen Without Intravenous Contrast EXAM DATE/TIME: 08/06/2017 9:00 AM CLINICAL HISTORY: The patient age is 47 years old and is male; Signs and symptoms; Other: Lesion; Additional info: Evaluate pancreatic lesion, HX cbd dilatation Facility exam id and description: Ct pancreas pancreatic protocol TECHNIQUE: Axial computed tomography images of the abdomen without intravenous contrast. All CT scans at this facility use one or more dose reduction techniques, viz.: automated exposure control; ma/kV adjustment per patient size (including targeted exams where dose is matched to indication; i.e. head); or iterative reconstruction technique. COMPARISON: CT - ABD PELVIS PO IV CONTRAST 08/04/2017 9:31:53 PM FINDINGS: Lower thorax: There is a small pericardial effusion. Liver: There is hypodense fatty infiltration of the liver. Gallbladder and bile ducts: There is dilatation of the common bile duct. The common bile duct measures 1.0 cm in diameter. Pancreas: Within the tail the pancreas, there is an area of isodensity suspicious for mass. This measured 3.5 x 3.4 cm. Upon remeasurement, this has slightly increased in size. Spleen: No splenomegaly. Adrenals: No mass. Kidneys and ureters: A few small hypodense probable right renal cysts are identified, which are sub-centimeters in size. There is no hydronephrosis bilaterally. Mild left ureteral dilatation is visualized, which has improved. Stomach and bowel: No obstruction. No mucosal thickening. Evaluation limited by the absence of oral contrast. Appendix: Not visualized. Intraperitoneal space: No free air. Bones/joints: Hypertrophic degenerative changes are noted within the spine. Vasculature: There is mild atherosclerotic calcification of the abdominal aorta. No abdominal aortic aneurysm. Lymph nodes: No significant retroperitoneal lymphadenopathy. IMPRESSION: 1. There is stable dilatation of the common bile duct. Correlation with serum bilirubin is recommended. 2. Within the tail the pancreas, there is an area of isodensity suspicious for mass. This measured 3.5 x 3.4 cm. Upon remeasurement, this has slightly increased in size. A nonemergent MRI of the abdomen with contrast is recommended. 3. There is a small pericardial effusion. 4. There is hypodense fatty infiltration of the liver. 5. Mild left ureteral dilatation is visualized, which has improved. 6. Incidental/non-acute findings are described above.
== END 2017-08-06 20:14 | disposition left against medical advice (07) | DRG 204 ==
LOC: ED 18:45 → ERH 08-05 00:47 → 5RSO 08-05 01:55 → OBSVTOIN 08-05 15:45
PROVIDERS: ADMIT Internal Medicine; ATTEND Internal Medicine
DX: K86.9 Disease of pancreas, unspecified (principal); Q45.3 Other congenital malformations of pancreas and pancreatic duct; K70.10 Alcoholic hepatitis without ascites; K92.1 Melena; I10 Essential (primary) hypertension; K83.8 Other specified diseases of biliary tract; F10.229 Alcohol dependence with intoxication, unspecified; F17.210 Nicotine dependence, cigarettes, uncomplicated; F31.9 Bipolar disorder, unspecified; K59.09 Other constipation; N28.82 Megaloureter; Z87.01 Personal history of pneumonia (recurrent); K29.70 Gastritis, unspecified, without bleeding; R31.9 Hematuria, unspecified; R30.0 Dysuria; R40.2412 Glasgow coma scale score 13-15, at arrival to emergency department; R93.5 Abnormal findings on diagnostic imaging of other abdominal regions, including retroperitoneum; F41.9 Anxiety disorder, unspecified; R19.7 Diarrhea, unspecified; R35.0 Frequency of micturition

== ENCOUNTER 2017-08-09 20:04 | Observation (INO) | payer MEDICAID, OTHER ==
[2017-08-09 20:05] VITALS: BMI 25.9
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
[2017-08-09 20:57] VITALS: TEMP 97.8
[2017-08-10 05:04] VITALS: RESP 16; O2SAT 99
[2017-08-10 05:05] VITALS: BP 124/76; PULSE 78
== END 2017-08-10 04:50 | disposition home or self-care (01) ==
LOC: ED 20:04 → EROBSV 20:26
PROVIDERS: ADMIT Emergency Medicine; ATTEND Emergency Medicine
DX: F10.10 Alcohol abuse, uncomplicated (principal)
CPT/HCPCS: 82948; 99284; G0378

== ENCOUNTER 2017-08-12 18:49 | Emergency (ER) | payer MEDICAID ==
[2017-08-12 18:49] VITALS: BMI 25.9
[2017-08-12 18:53] VITALS: BP 118/73; RESP 18; O2SAT 97
[2017-08-12 21:07] VITALS: PULSE 98; TEMP 98.6
== END 2017-08-12 20:30 | disposition left against medical advice (07) ==
LOC: ED 18:49
DX: Z02.89 Encounter for other administrative examinations (principal); F10.10 Alcohol abuse, uncomplicated

== ENCOUNTER 2017-08-13 12:32 | Emergency (ER) | payer MEDICAID ==
[2017-08-13 12:33] VITALS: BMI 25.9
[2017-08-13] MEDS ORDERED: THIAMINE IV ONE (12:52)
[2017-08-13] MEDS ORDERED: [UNRECOGNIZED DRUG - OTHER] IV ONE (12:52)
[2017-08-13] MEDS ORDERED: MULTIVITAMIN IV ONE (12:52)
[2017-08-13] MEDS ORDERED: FOLIC ACID IV ONE (12:52)
[2017-08-13] MEDS ORDERED: Folic Acid 1 MG, Thiamine 100 MG, Multivitamin (MVI) 10 ML in Dextrose 5%/0.45% NS 1,00... IV ONE (13:00)
[2017-08-13 13:19] LABS: BASO # 0.1 K/mm3 (0.0-2.0); BASO % 1.1 % (0.0-3.0); EOS # 0.1 (0.0-0.7); EOS % 0.5 % (1.5-5.0); GRAN # 5.15 (1.4-6.5); GRAN % 55.1 % (50.0-68.0); LYMPH # 3.1 (1.2-3.4); LYMPH % 32.8 % (22.0-35.0); MEAN CELL VOLUME 102.3 fl (80.0-105.0); MEAN CORPUSCULAR HEMOGLOBIN 36.6 pg (25.0-35.0); MEAN CORPUSCULAR HGB CONC 35.8 g/dl (31.0-37.0); MEAN PLATELET VOLUME 9.8 fl (7.0-11.0); MONO % 10.5 % (1.0-6.0); RED CELL DISTRIBUTION WIDTH 13.1 % (11.5-14.5); WHITE BLOOD COUNT 9.3 10^3/ul (4.5-11.0)
[2017-08-13 13:29] LABS: ALKALINE PHOSPHATASE 420 U/L (38-126); ALT/SGPT 77 U/L (7-56); AST/SGOT 225 U/L (17-59); BILIRUBIN,TOTAL 0.9 mg/dL (0.2-1.3); BLOOD UREA NITROGEN 5 mg/dL (7-21); CALCIUM 9.1 mg/dL (8.4-10.5); CARBON DIOXIDE 25 mmol/L (21-33); CHLORIDE 100 mmol/L (98-107); GFR AFRICAN-AMERICAN > 60; GLUCOSE,RANDOM 91 mg/dL (70-110); LIPASE 136 U/L (23-300); POTASSIUM 3.7 mmol/L (3.6-5.0); SODIUM 139 mmol/L (132-148); TOTAL PROTEIN 8.5 g/dL (5.8-8.3)
[2017-08-13 13:32] LABS: INR 1.09 (0.93-1.08); PARTIAL THROMBOPLASTIN TIME 30.5 Seconds (23.7-30.8)
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
[2017-08-13] MEDS ORDERED: Gadodiamide 287 MG/ML VIAL (15ML) IV ONE (15:57)
[2017-08-13 16:29] VITALS: TEMP 97.8
[2017-08-13 17:11] VITALS: BP 107/70; PULSE 94; RESP 16; O2SAT 100
--- NOTE | 2017-08-13 19:07 | MRI ---
PROCEDURE: MRI Abdomen with and without contrast HISTORY: Suspicious for pancreatic mass. COMPARISON: Comparison is made to the previous CT dated 08/06/2017. TECHNIQUE: Multisequence, multiplanar MR images of the abdomen with and without gadolinium contrast enhancement. 15 cc of Omniscan was injected intravenously. FINDINGS: LIVER: Mild hepatomegaly noted without evidence of discrete mass. GALLBLADDER: Unremarkable. SPLEEN: Unremarkable. PANCREAS: There is slightly hypo intense T2 soft tissue mass lesion at the tail of the pancreas demonstrates homogeneous enhancement measures 3.2 centimeter in the transverse diameter 2.5 centimeter in the AP diameter. The possibility of malignant neoplasm should be excluded. The main pancreatic duct is not dilated. This mass lesion demonstrate with defined border without invasion of the adjacent structure ADRENALS: Unremarkable. KIDNEYS: Unremarkable. AORTA: No aneurysm. ASCITES: None. PERITONEUM: Unremarkable. LYMPH NODES: Unremarkable. OTHER FINDINGS: None. IMPRESSION: With defined homogeneous Jarad enhancing soft tissue mass lesion at the tail of the pancreas measures 3.2 x 2.5 centimeter. Both benign and malignant neoplasm share the same appearance. Further assessment is recommended. No evidence of acute pathology in the abdomen and pelvis. Mild hepatomegaly without evidence of discrete mass in the liver.
== END 2017-08-13 19:20 | disposition home or self-care (01) ==
LOC: ED 12:32
DX: K86.9 Disease of pancreas, unspecified (principal); F10.10 Alcohol abuse, uncomplicated; I10 Essential (primary) hypertension; F17.210 Nicotine dependence, cigarettes, uncomplicated
CPT/HCPCS: 74183; 80053; 82948; 83690; 85025; 85610; 85730; 96374; 99283; A9579; J3411; J7042

== ENCOUNTER 2017-08-14 14:46 | Observation (INO) | payer MEDICAID ==
[2017-08-14 14:53] VITALS: BMI 27.2
[2017-08-14 15:18] VITALS: TEMP 98.5; O2SAT 92
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
[2017-08-14 19:36] VITALS: BP 130/69; PULSE 87; RESP 18
== END 2017-08-14 19:19 | disposition home or self-care (01) ==
LOC: ED 14:46 → EROBSV 14:52
PROVIDERS: ADMIT Emergency Medicine; ATTEND Emergency Medicine
DX: F10.129 Alcohol abuse with intoxication, unspecified (principal)
CPT/HCPCS: 99283; G0378

== ENCOUNTER 2017-08-15 08:02 | Emergency (ER) | payer MEDICAID ==
[2017-08-15 08:03] VITALS: BMI 27.2
[2017-08-15 08:32] VITALS: BP 130/88; PULSE 84; RESP 18; TEMP 97.5; O2SAT 100
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
== END 2017-08-15 13:44 | disposition left against medical advice (07) ==
LOC: ED 08:02
DX: F10.129 Alcohol abuse with intoxication, unspecified (principal)

== ENCOUNTER 2017-08-15 19:51 | Observation (INO) | payer MEDICAID ==
[2017-08-15 19:52] VITALS: BMI 25.9
[2017-08-15 20:18] VITALS: TEMP 97.8
[2017-08-15] MEDS ORDERED: TDAP Vaccine 0.5 mL Syr IM ONE (20:25)
[2017-08-15] MEDS ORDERED: Amoxicillin-Clav 875-125 mg Tab PO STA (20:25)
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
[2017-08-16 04:31] VITALS: O2SAT 99
[2017-08-16 06:35] VITALS: BP 139/85; PULSE 99; RESP 18
== END 2017-08-16 06:28 | disposition home or self-care (01) ==
LOC: ED 19:51 → EROBSV 20:26
PROVIDERS: ADMIT Emergency Medicine; ATTEND Emergency Medicine
DX: F10.129 Alcohol abuse with intoxication, unspecified (principal); Z23 Encounter for immunization
CPT/HCPCS: 90471; 90715; 99282; G0378

== ENCOUNTER 2017-08-16 10:16 | Observation (INO) | payer MEDICAID ==
[2017-08-16 10:16] VITALS: BMI 25.9
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
[2017-08-16 10:28] VITALS: TEMP 98.6
[2017-08-16 13:19] VITALS: O2SAT 99
[2017-08-16 18:16] VITALS: BP 118/78; PULSE 95; RESP 20
== END 2017-08-16 14:56 | disposition home or self-care (01) ==
LOC: ED 10:16 → EROBSV 13:09
PROVIDERS: ADMIT Emergency Medicine; ATTEND Emergency Medicine
DX: F10.129 Alcohol abuse with intoxication, unspecified (principal)
CPT/HCPCS: 99283; G0378

== ENCOUNTER 2017-08-17 13:07 | Observation (INO) | payer MEDICAID ==
[2017-08-17 13:10] VITALS: BMI 25.9
[2017-08-17 13:43] VITALS: TEMP 97.6
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
[2017-08-17 17:44] VITALS: BP 114/60; PULSE 95; O2SAT 98
[2017-08-17 17:50] VITALS: RESP 17
== END 2017-08-17 17:45 | disposition home or self-care (01) ==
LOC: ED 13:07 → EROBSV 13:30
PROVIDERS: ADMIT Emergency Medicine; ATTEND Emergency Medicine
DX: F10.10 Alcohol abuse, uncomplicated (principal)
CPT/HCPCS: 99283; G0378

== ENCOUNTER 2017-08-17 19:43 | Observation (INO) | payer MEDICAID ==
[2017-08-17 19:49] VITALS: BMI 23.4
[2017-08-17 20:05] VITALS: RESP 18
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
[2017-08-18 04:29] VITALS: TEMP 98.2
[2017-08-18 06:03] VITALS: BP 117/60; PULSE 96; O2SAT 99
== END 2017-08-18 06:19 | disposition home or self-care (01) ==
LOC: ED 19:43 → EROBSV 23:00
PROVIDERS: ADMIT Emergency Medicine; ATTEND Emergency Medicine
DX: F10.10 Alcohol abuse, uncomplicated (principal)
CPT/HCPCS: 82948; 99284; G0378

== ENCOUNTER 2017-08-18 12:31 | Observation (INO) | payer MEDICAID ==
[2017-08-18 12:31] VITALS: BMI 23.4
[2017-08-18 12:39] VITALS: BP 131/88; PULSE 88; RESP 16; TEMP 98.4; O2SAT 99
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
== END 2017-08-18 14:09 | disposition home or self-care (01) ==
LOC: ED 12:31 → EROBSV 12:32
PROVIDERS: ADMIT Emergency Medicine; ATTEND Emergency Medicine
DX: F10.10 Alcohol abuse, uncomplicated (principal)
CPT/HCPCS: 99282; G0378

== ENCOUNTER 2017-08-18 19:03 | Observation (INO) | payer MEDICAID ==
[2017-08-18 19:18] VITALS: BMI 26.4
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
[2017-08-18 21:08] VITALS: RESP 16; TEMP 98.2
[2017-08-19 03:03] VITALS: BP 124/75; PULSE 83; O2SAT 95
== END 2017-08-19 06:03 | disposition home or self-care (01) ==
LOC: ED 19:03 → EROBSV 21:00
PROVIDERS: ADMIT Emergency Medicine; ATTEND Emergency Medicine
DX: F10.129 Alcohol abuse with intoxication, unspecified (principal)
CPT/HCPCS: 99283; G0378

== ENCOUNTER 2017-08-19 10:45 | Observation (INO) | payer MEDICAID ==
[2017-08-19 10:45] VITALS: BMI 26.4
[2017-08-19 11:19] VITALS: TEMP 97.6
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
[2017-08-19 17:24] VITALS: BP 145/92; PULSE 88; RESP 20; O2SAT 98
== END 2017-08-19 18:11 | disposition home or self-care (01) ==
LOC: ED 10:45 → EROBSV 11:36
PROVIDERS: ADMIT Emergency Medicine; ATTEND Emergency Medicine
DX: F10.129 Alcohol abuse with intoxication, unspecified (principal)
CPT/HCPCS: 82948; 99284; G0378

== ENCOUNTER 2017-08-19 20:53 | Observation (INO) | payer MEDICAID ==
[2017-08-19 21:21] VITALS: BMI 25.9
[2017-08-19 21:43] VITALS: TEMP 97.9
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
[2017-08-20 06:14] VITALS: RESP 18
[2017-08-20 06:16] VITALS: BP 127/76; PULSE 86; O2SAT 96
== END 2017-08-20 05:13 | disposition home or self-care (01) ==
LOC: ED 20:53 → EROBSV 21:48
PROVIDERS: ADMIT Emergency Medicine; ATTEND Emergency Medicine
DX: F10.10 Alcohol abuse, uncomplicated (principal); I10 Essential (primary) hypertension
CPT/HCPCS: 82948; 99285; G0378

== ENCOUNTER 2017-08-20 10:26 | Emergency (ER) | payer MEDICAID ==
[2017-08-20 10:26] VITALS: BMI 25.9
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
[2017-08-20 11:00] LABS: BASO # 0.08 K/mm3 (0.0-2.0); BASO % 0.9 % (0.0-3.0); EOS # 0.1 (0.0-0.7); EOS % 0.6 % (1.5-5.0); GRAN # 5.4 (1.4-6.5); GRAN % 59.9 % (50.0-68.0); HEMATOCRIT 38.2 % (42.0-52.0); LYMPH # 2.6 (1.2-3.4); MEAN CELL VOLUME 101.9 fl (80.0-105.0); MEAN CORPUSCULAR HGB CONC 35.3 g/dl (31.0-37.0); MEAN PLATELET VOLUME 9.9 fl (7.0-11.0); MONO # 0.9 (0.1-0.6); MONO % 9.6 % (1.0-6.0); RED CELL DISTRIBUTION WIDTH 12.7 % (11.5-14.5)
[2017-08-20 11:09] LABS: INR 1.08 (0.93-1.08); PARTIAL THROMBOPLASTIN TIME 28.6 Seconds (23.7-30.8)
[2017-08-20 11:12] LABS: ALKALINE PHOSPHATASE 503 U/L (38-126); ALT/SGPT 103 U/L (7-56); AST/SGOT 500 U/L (17-59); BILIRUBIN,TOTAL 1.3 mg/dL (0.2-1.3); BLOOD UREA NITROGEN 8 mg/dL (7-21); CALCIUM 9.9 mg/dL (8.4-10.5); CARBON DIOXIDE 27 mmol/L (21-33); CHLORIDE 98 mmol/L (98-107); GFR AFRICAN-AMERICAN > 60; GLUCOSE,RANDOM 103 mg/dL (70-110); SODIUM 140 mmol/L (132-148); TOTAL PROTEIN 9.3 g/dL (5.8-8.3)
--- NOTE | 2017-08-20 11:37 | RAD ---
HISTORY: sob COMPARISON: 08/04/2017 FINDINGS: LUNGS: No active pulmonary disease. PLEURA: No significant pleural effusion identified, no pneumothorax apparent. CARDIOVASCULAR: Normal. OSSEOUS STRUCTURES: No significant abnormalities. VISUALIZED UPPER ABDOMEN: Normal. OTHER FINDINGS: None. IMPRESSION: No active disease.
[2017-08-20 12:49] LABS: TROPONIN I 0.01 ng/mL
[2017-08-20 14:57] VITALS: RESP 18; O2SAT 98
[2017-08-20 16:41] VITALS: BP 125/76; PULSE 76; TEMP 98
--- NOTE | 2017-08-21 00:58 | CARD ---
APPROVED REPORT EKG Measurement Heart [id number] <Conclusion> Normal sinus rhythm Cannot rule out Anterior infarct, age undetermined Abnormal ECG
== END 2017-08-20 16:40 | disposition home or self-care (01) ==
LOC: ED 10:26
DX: F10.129 Alcohol abuse with intoxication, unspecified (principal); Y90.8 Blood alcohol level of 240 mg/100 ml or more; R74.8 Abnormal levels of other serum enzymes

== ENCOUNTER 2017-08-21 15:25 | Observation (INO) | payer MEDICAID ==
[2017-08-21 15:32] VITALS: BMI 27.2
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
[2017-08-21 19:02] VITALS: BP 138/80; PULSE 80; RESP 18; TEMP 98.6; O2SAT 99
== END 2017-08-21 17:44 | disposition home or self-care (01) ==
LOC: ED 15:25 → EROBSV 15:40
PROVIDERS: ADMIT Student in an Organized Health Care Education/Training Program; ATTEND Student in an Organized Health Care Education/Training Program
DX: F10.10 Alcohol abuse, uncomplicated (principal); I10 Essential (primary) hypertension
CPT/HCPCS: 82948; 99282; G0378

== ENCOUNTER 2017-08-22 13:46 | Emergency (ER) | payer MEDICAID ==
[2017-08-22 13:46] VITALS: BMI 27.2
[2017-08-22 14:24] VITALS: BP 111/73; PULSE 97; RESP 20; TEMP 98.9; O2SAT 99
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
== END 2017-08-22 14:46 | disposition home or self-care (01) ==
LOC: ED 13:46
DX: Z59.0 Homelessness (principal); F10.10 Alcohol abuse, uncomplicated

== ENCOUNTER 2017-08-23 15:26 | Emergency (ER) | payer MEDICAID ==
[2017-08-23 15:26] VITALS: BMI 27.2
[2017-08-23 15:38] VITALS: BP 138/88; PULSE 93; RESP 18; TEMP 98.1; O2SAT 95
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
== END 2017-08-23 16:39 | disposition home or self-care (01) ==
LOC: ED 15:26
DX: Z59.0 Homelessness (principal); I10 Essential (primary) hypertension; F17.210 Nicotine dependence, cigarettes, uncomplicated

== ENCOUNTER 2017-08-24 08:22 | Emergency (ER) | payer MEDICAID ==
[2017-08-24 08:23] VITALS: BMI 27.2
[2017-08-24 08:33] VITALS: RESP 16; TEMP 98
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
[2017-08-24 10:09] VITALS: BP 130/92; PULSE 80; O2SAT 98
== END 2017-08-24 10:09 | disposition home or self-care (01) ==
LOC: ED 08:22
DX: F10.10 Alcohol abuse, uncomplicated (principal)

== ENCOUNTER 2017-08-25 15:59 | Emergency (ER) | payer MEDICAID ==
[2017-08-25 15:59] VITALS: BMI 27.2
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
[2017-08-26 05:45] VITALS: RESP 17
[2017-08-26 05:46] VITALS: BP 122/73; PULSE 79; TEMP 98.3; O2SAT 97
== END 2017-08-26 05:35 | disposition home or self-care (01) ==
LOC: ED 15:59
DX: F10.129 Alcohol abuse with intoxication, unspecified (principal)

== ENCOUNTER 2017-08-26 09:49 | Emergency (ER) | payer MEDICAID ==
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
[2017-08-26 09:56] VITALS: BMI 26.2
[2017-08-26 09:57] VITALS: TEMP 98.6; O2SAT 95
[2017-08-26 11:22] VITALS: RESP 18
[2017-08-26 13:13] VITALS: BP 132/79; PULSE 86
== END 2017-08-26 15:32 | disposition home or self-care (01) ==
LOC: ED 09:49
DX: F10.120 Alcohol abuse with intoxication, uncomplicated (principal); Y90.9 Presence of alcohol in blood, level not specified

== ENCOUNTER 2017-08-26 20:09 | Emergency (ER) | payer MEDICAID ==
[2017-08-26 20:24] VITALS: BMI 27.2
[2017-08-26 20:30] VITALS: TEMP 98.8
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
[2017-08-27 01:47] VITALS: PULSE 97
[2017-08-27 06:15] VITALS: BP 107/57; RESP 17; O2SAT 98
== END 2017-08-27 06:05 | disposition home or self-care (01) ==
LOC: ED 20:09
DX: F10.120 Alcohol abuse with intoxication, uncomplicated (principal); Y90.9 Presence of alcohol in blood, level not specified

== ENCOUNTER 2017-08-27 11:30 | Emergency (ER) | payer MEDICAID ==
[2017-08-27 11:31] VITALS: BMI 27.2
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
[2017-08-27 18:47] VITALS: BP 132/85; PULSE 82
[2017-08-27 19:06] VITALS: RESP 16; TEMP 98.6; O2SAT 98
== END 2017-08-27 19:09 | disposition home or self-care (01) ==
LOC: ED 11:30
DX: F10.120 Alcohol abuse with intoxication, uncomplicated (principal); Y90.9 Presence of alcohol in blood, level not specified

== ENCOUNTER 2017-08-28 10:08 | Emergency (ER) | payer MEDICAID ==
[2017-08-28 10:16] VITALS: RESP 18; O2SAT 98
[2017-08-28 10:58] VITALS: BMI 27.4
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
[2017-08-28 15:34] VITALS: BP 125/76; PULSE 85; TEMP 98.2
== END 2017-08-28 15:12 | disposition home or self-care (01) ==
LOC: ED 10:08
DX: F10.120 Alcohol abuse with intoxication, uncomplicated (principal); Y90.9 Presence of alcohol in blood, level not specified

== ENCOUNTER 2017-08-28 17:58 | Emergency (ER) | payer MEDICAID ==
[2017-08-28 18:14] VITALS: BMI 23.8
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
[2017-08-29 03:48] VITALS: BP 111/75; PULSE 91; RESP 19; TEMP 98.3; O2SAT 96
== END 2017-08-29 06:23 | disposition home or self-care (01) ==
LOC: ED 17:58
DX: F10.10 Alcohol abuse, uncomplicated (principal); Y90.9 Presence of alcohol in blood, level not specified

== ENCOUNTER 2017-08-29 12:27 | Emergency (ER) | payer MEDICAID ==
[2017-08-29 12:28] VITALS: BMI 27.4
[2017-08-29 12:49] VITALS: TEMP 97.5; O2SAT 97
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
[2017-08-29 16:40] VITALS: BP 100/61; PULSE 97; RESP 14
== END 2017-08-29 17:04 | disposition home or self-care (01) ==
LOC: ED 12:27
DX: Z59.0 Homelessness (principal)

== ENCOUNTER 2017-08-29 21:28 | Emergency (ER) | payer MEDICAID ==
[2017-08-29 21:28] VITALS: BMI 27.4
== END 2017-08-29 21:29 | disposition left against medical advice (07) ==
LOC: ED 21:28
DX: Z02.89 Encounter for other administrative examinations (principal); F10.10 Alcohol abuse, uncomplicated

== ENCOUNTER 2017-09-01 20:36 | Emergency (ER) | payer MEDICAID ==
[2017-09-01 20:36] VITALS: BMI 27.4
[2017-09-01 21:11] VITALS: BP 120/71; PULSE 81; RESP 18; TEMP 98.6; O2SAT 96
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
== END 2017-09-02 06:34 | disposition home or self-care (01) ==
LOC: ED 20:36
DX: F10.20 Alcohol dependence, uncomplicated (principal); I10 Essential (primary) hypertension

== ENCOUNTER 2017-09-02 10:13 | Emergency (ER) | payer MEDICAID ==
--- NOTE | 2017-09-02 10:25 | EDPD ---
Arrival/HPI - General Time Seen by Provider: 09/02/17 10:20 Historian: Patient, EMS - History of Present Illness Narrative History of Present Illness (Text): 09/02/17 10:15 Angelo Mccormick is a 47 year old male, whose past medical history includes ETOH abuse, is brought in by EMS for public intoxication. Patient denies chest pain, shortness of breath, abdominal pain or other complaints. Patient is requesting a place to sleep. Time/Duration: Prior to Arrival Symptom Onset: Sudden Symptom Course: Unchanged Past Medical History - Provider Review Nursing Documentation Reviewed: Yes - Immunization Tetanus Immunization: Up to Date - Infectious Disease Hx of Infectious Diseases: None - Psychiatric History Past Psychiatric History: None Hx Physical Abuse: No Hx Emotional Abuse: No Hx Depression: Yes - Surgical History Past Surgical History: No Previous - Reproductive Currently : No - Suicidal Assessment Feels Threatened at Home: No Family/Social History - Physician Review Nursing Documentation Reviewed: Yes Family/Social History: Other (non-contributory ) Smoking Status: Light Smoker < 10 Cigarettes Daily Hx Alcohol Use: Yes (daily) Hx Substance Use: No Hx Substance Use Treatment: No Allergies/Home Meds Allergies/Adverse Reactions: Allergies No Known Allergies Allergy (Verified 08/29/17 03:24) Home Medications: Home Meds Medication Instructions Recorded Confirmed No Known Home Med 08/26/17 09/01/17 Pediatric Review of Systems - Review of Systems Systems not reviewed;Unavailable: Intoxicated Constitutional: absent: Fevers Respiratory: absent: SOB Cardiovascular: absent: Chest Pain Gastrointestinal: absent: Abdominal Pain Pediatric Physical Exam Appearance: Positive for: Well-Appearing Disposition/Present on Arrival - Present on Arrival History of DVT/PE: No History of Uncontrolled Diabetes: No Urinary Catheter: No History Surgical Site Infection Following: None - Disposition Diagnosis: Alcohol abuse, Homeless Disposition: HOME/ ROUTINE Condition: STABLE Referrals: Alcoholics Anonymous [Outside] - Follow up with primary [place] [facility] [Outside] - Follow up with primary [facility] at [facility] [place] [Outside] - Follow up with primary
[2017-09-02 10:28] VITALS: PULSE 82; BMI 25.6
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
[2017-09-02 11:11] VITALS: BP 130/82; RESP 17; TEMP 98.8; O2SAT 100
== END 2017-09-02 11:11 | disposition home or self-care (01) ==
LOC: ED 10:13
DX: F10.10 Alcohol abuse, uncomplicated (principal); Z59.0 Homelessness; F17.210 Nicotine dependence, cigarettes, uncomplicated; I10 Essential (primary) hypertension

== ENCOUNTER 2017-09-02 15:51 | Emergency (ER) | payer MEDICAID ==
[2017-09-02 15:51] VITALS: BMI 27.4
[2017-09-02 16:01] VITALS: BP 137/90; PULSE 82; RESP 18; TEMP 98.2; O2SAT 98
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
== END 2017-09-02 19:14 | disposition home or self-care (01) ==
LOC: ED 15:51
DX: F10.20 Alcohol dependence, uncomplicated (principal)

== ENCOUNTER 2017-09-03 08:39 | Emergency (ER) | payer MEDICAID ==
[2017-09-03 08:40] VITALS: BMI 27.4
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
[2017-09-03 14:21] VITALS: BP 134/86; PULSE 81; RESP 18; TEMP 97.6; O2SAT 97
== END 2017-09-03 14:30 | disposition home or self-care (01) ==
LOC: ED 08:39
DX: M79.662 Pain in left lower leg (principal); M79.661 Pain in right lower leg; Z59.0 Homelessness

== ENCOUNTER 2017-09-03 18:38 | Emergency (ER) | payer MEDICAID ==
[2017-09-03 18:39] VITALS: BMI 27.4
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
[2017-09-04 04:12] VITALS: RESP 18
[2017-09-04 06:04] VITALS: BP 120/76; PULSE 80; TEMP 97.6; O2SAT 96
== END 2017-09-04 06:05 | disposition home or self-care (01) ==
LOC: ED 18:38
DX: Z59.0 Homelessness (principal); F17.210 Nicotine dependence, cigarettes, uncomplicated; I10 Essential (primary) hypertension

== ENCOUNTER 2017-09-04 15:16 | Emergency (ER) | payer MEDICAID ==
[2017-09-04 15:27] VITALS: BMI 25.2
[2017-09-04 15:40] VITALS: BP 128/82; PULSE 83; RESP 18; TEMP 98.2; O2SAT 98
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
== END 2017-09-04 19:14 | disposition left against medical advice (07) ==
LOC: ED 15:16
DX: F10.10 Alcohol abuse, uncomplicated (principal); I10 Essential (primary) hypertension; F17.210 Nicotine dependence, cigarettes, uncomplicated

== ENCOUNTER 2017-09-05 09:09 | Emergency (ER) | payer MEDICAID ==
[2017-09-05 09:09] VITALS: BMI 25.2
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
[2017-09-05 09:30] VITALS: RESP 18; TEMP 98; O2SAT 98
[2017-09-05] MEDS ORDERED: Thiamine 100 mg/ml Inj IM STA (09:48)
[2017-09-05 13:02] VITALS: BP 116/68; PULSE 71
== END 2017-09-05 14:45 | disposition home or self-care (01) ==
LOC: ED 09:09
DX: F10.120 Alcohol abuse with intoxication, uncomplicated (principal); Y90.9 Presence of alcohol in blood, level not specified
CPT/HCPCS: 96372; 99283; J3411

== ENCOUNTER 2017-09-05 16:57 | Emergency (ER) | payer MEDICAID ==
[2017-09-05 16:57] VITALS: BMI 25.2
[2017-09-05 17:26] VITALS: TEMP 99.1
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
[2017-09-06 07:40] VITALS: BP 129/84; PULSE 86; RESP 18; O2SAT 99
== END 2017-09-06 00:01 | disposition home or self-care (01) ==
LOC: ED 16:57
DX: F10.10 Alcohol abuse, uncomplicated (principal); Y90.9 Presence of alcohol in blood, level not specified

== ENCOUNTER 2017-09-06 12:44 | Emergency (ER) | payer MEDICAID ==
[2017-09-06 12:57] VITALS: BMI 27.9
[2017-09-06 13:01] VITALS: BP 116/81; PULSE 97; RESP 18; TEMP 98.4; O2SAT 96
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
== END 2017-09-06 17:50 | disposition home or self-care (01) ==
LOC: ED 12:44
DX: Z59.0 Homelessness (principal)

== ENCOUNTER 2017-09-07 08:32 | Emergency (ER) | payer MEDICAID ==
[2017-09-07 08:32] VITALS: BMI 27.9
[2017-09-07 08:48] VITALS: TEMP 97.6
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
[2017-09-07 18:26] VITALS: BP 144/84; PULSE 96; RESP 16; O2SAT 95
== END 2017-09-07 18:55 | disposition home or self-care (01) ==
LOC: ED 08:32
DX: F10.120 Alcohol abuse with intoxication, uncomplicated (principal); Y90.9 Presence of alcohol in blood, level not specified

== ENCOUNTER 2017-09-08 15:09 | Emergency (ER) | payer MEDICAID ==
[2017-09-08 15:14] VITALS: BMI 23.0
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
[2017-09-08 19:19] VITALS: TEMP 98.5
--- NOTE | 2017-09-08 20:51 | ED PDOC ---
Physical Exam Vital Signs Reviewed: Yes Vital Signs Temp Pulse Resp BP Pulse Ox 09/09/17 05:45 87 18 136/85 97 09/09/17 05:00 85 18 133/80 97 09/09/17 03:00 82 18 135/81 97 09/09/17 00:56 80 17 131/78 96 09/08/17 23:00 83 17 132/79 97 09/08/17 21:00 85 17 132/80 97 09/08/17 19:18 98.5 F 88 17 135/82 98 09/08/17 17:11 98.2 F 89 17 130/72 96 09/08/17 15:13 98.1 F 96 H 17 129/76 98 Medical Decision Making ED Course and Treatment: 09/08/17 20:48 Case endorsed to me by Dr. Shetty. Patient's past medical history includes alcohol abuse, presents to the emergency department for alcohol intoxication. Patient currently under observation/resting comfortably. Pending sobriety/ final disposition. - Scribe Statement The provider has reviewed the documentation as recorded by the Scribe [place] Power All medical record entries made by the Scribe were at my direction and personally dictated by me. I have reviewed the chart and agree that the record accurately reflects my personal performance of the history, physical exam, medical decision making, and the department course for this patient. I have also personally directed, reviewed, and agree with the discharge instructions and disposition. Disposition/Present on Arrival - Present on Arrival Any Indicators Present on Arrival: No History of DVT/PE: No History of Uncontrolled Diabetes: No Urinary Catheter: No History of Decub. Ulcer: No History Surgical Site Infection Following: None - Disposition Have Diagnosis and Disposition been Completed?: Yes Diagnosis: Alcohol abuse Disposition: HOME/ ROUTINE Disposition Time: 05:30 Patient Plan: Discharge Condition: FAIR Discharge Instructions (ExitCare): Alcohol Intoxication (ED) Referrals: Kalpesh Mortensen MD [Primary Care Provider] - Follow up with primary [facility] [Outside] - Follow up with primary Forms: [employer] (Setswana)
[2017-09-09 05:02] VITALS: RESP 18; O2SAT 97
[2017-09-09 05:45] VITALS: BP 136/85; PULSE 87
== END 2017-09-09 05:45 | disposition home or self-care (01) ==
LOC: ED 15:09
DX: F10.10 Alcohol abuse, uncomplicated (principal)

== ENCOUNTER 2017-09-09 20:55 | Emergency (ER) | payer MEDICAID ==
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
[2017-09-09 21:46] VITALS: BP 145/69; PULSE 92; RESP 18; TEMP 97.8; O2SAT 98; BMI 29.2
== END 2017-09-10 00:38 | disposition home or self-care (01) ==
LOC: ED 20:55
DX: F10.129 Alcohol abuse with intoxication, unspecified (principal); F17.200 Nicotine dependence, unspecified, uncomplicated; I10 Essential (primary) hypertension

== ENCOUNTER 2017-09-10 20:15 | Emergency (ER) | payer MEDICAID ==
[2017-09-10 20:17] VITALS: BMI 27.2
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
[2017-09-10 20:25] VITALS: PULSE 82; RESP 18; TEMP 98.4; O2SAT 99
[2017-09-10 20:38] VITALS: BP 138/80
== END 2017-09-11 06:01 | disposition home or self-care (01) ==
LOC: ED 20:15
DX: F10.129 Alcohol abuse with intoxication, unspecified (principal); F17.200 Nicotine dependence, unspecified, uncomplicated; I10 Essential (primary) hypertension

== ENCOUNTER 2017-09-12 10:29 | Emergency (ER) | payer MEDICAID ==
[2017-09-12 10:29] VITALS: BMI 27.2
[2017-09-12 11:06] VITALS: TEMP 97.9
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
[2017-09-12 18:45] VITALS: BP 110/68; PULSE 85; RESP 19
[2017-09-12 18:46] VITALS: O2SAT 99
== END 2017-09-12 18:46 | disposition home or self-care (01) ==
LOC: ED 10:29
DX: F10.10 Alcohol abuse, uncomplicated (principal); I10 Essential (primary) hypertension

== ENCOUNTER 2017-09-12 20:54 | Emergency (ER) | payer MEDICAID ==
[2017-09-12 21:08] VITALS: BMI 23.4
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
[2017-09-13 02:49] VITALS: TEMP 98.9; O2SAT 99
[2017-09-13 05:14] VITALS: BP 132/80; PULSE 88; RESP 18
== END 2017-09-13 06:08 | disposition home or self-care (01) ==
LOC: ED 20:54
DX: F10.129 Alcohol abuse with intoxication, unspecified (principal); F17.200 Nicotine dependence, unspecified, uncomplicated; I10 Essential (primary) hypertension

== ENCOUNTER 2017-09-13 22:01 | Emergency (ER) | payer MEDICAID ==
[2017-09-13 22:06] VITALS: BMI 26.2
[2017-09-13 22:10] VITALS: BP 131/72; PULSE 82; RESP 16; TEMP 98.2; O2SAT 100
== END 2017-09-13 22:31 | disposition left against medical advice (07) ==
LOC: ED 22:01
DX: Z02.89 Encounter for other administrative examinations (principal); Z00.00 Encounter for general adult medical examination without abnormal findings

== ENCOUNTER 2017-09-14 11:04 | Emergency (ER) | payer MEDICAID ==
[2017-09-14 11:31] VITALS: PULSE 78; RESP 19; TEMP 97.8; O2SAT 98; BMI 25.4
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
[2017-09-14 16:50] VITALS: BP 130/78
== END 2017-09-14 16:51 | disposition left against medical advice (07) ==
LOC: ED 11:04
DX: Z59.0 Homelessness (principal); F17.200 Nicotine dependence, unspecified, uncomplicated; I10 Essential (primary) hypertension

== ENCOUNTER 2017-09-14 19:07 | Emergency (ER) | payer MEDICAID ==
[2017-09-14 19:20] VITALS: BP 124/78; PULSE 72; RESP 18; TEMP 98.6; O2SAT 99; BMI 24.1
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
== END 2017-09-14 19:51 | disposition left against medical advice (07) ==
LOC: ED 19:07
DX: Z02.89 Encounter for other administrative examinations (principal); Z00.00 Encounter for general adult medical examination without abnormal findings

== ENCOUNTER 2017-09-16 17:04 | Emergency (ER) | payer MEDICAID ==
[2017-09-16 17:39] VITALS: BMI 27.2
[2017-09-16 17:42] VITALS: BP 108/70; PULSE 89; RESP 18; TEMP 98.4; O2SAT 98
== END 2017-09-16 17:05 | disposition home or self-care (01) ==
LOC: ED 17:04
DX: Z02.89 Encounter for other administrative examinations (principal); R53.1 Weakness

== ENCOUNTER 2017-09-18 12:44 | Emergency (ER) | payer MEDICAID ==
[2017-09-18 13:09] VITALS: BMI 27.8
[2017-09-18 13:10] VITALS: RESP 18; TEMP 97.6
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
[2017-09-18 18:07] VITALS: BP 132/80; PULSE 88; O2SAT 98
== END 2017-09-18 18:34 | disposition home or self-care (01) ==
LOC: ED 12:44
DX: F10.129 Alcohol abuse with intoxication, unspecified (principal); F17.200 Nicotine dependence, unspecified, uncomplicated; I10 Essential (primary) hypertension

== ENCOUNTER 2017-09-19 13:06 | Emergency (ER) | payer MEDICAID ==
[2017-09-19 13:06] VITALS: BMI 27.2
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
[2017-09-19 14:21] VITALS: TEMP 97.9
[2017-09-19 18:00] VITALS: BP 116/80; PULSE 78; RESP 16; O2SAT 97
== END 2017-09-19 18:04 | disposition home or self-care (01) ==
LOC: ED 13:06
DX: F10.129 Alcohol abuse with intoxication, unspecified (principal); I10 Essential (primary) hypertension; F17.200 Nicotine dependence, unspecified, uncomplicated

== ENCOUNTER 2017-09-28 14:54 | Emergency (ER) | payer MEDICAID ==
[2017-09-28 14:54] VITALS: BMI 27.2
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
[2017-09-28 22:40] VITALS: RESP 16
[2017-09-29 04:30] VITALS: O2SAT 98
[2017-09-29 06:16] VITALS: BP 135/82; PULSE 88; TEMP 98
== END 2017-09-29 06:18 | disposition left against medical advice (07) ==
LOC: ED 14:54
DX: F10.129 Alcohol abuse with intoxication, unspecified (principal); I10 Essential (primary) hypertension; F17.200 Nicotine dependence, unspecified, uncomplicated

== ENCOUNTER 2017-09-29 15:07 | Emergency (ER) | payer MEDICAID ==
[2017-09-29 15:08] VITALS: BMI 27.2
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
[2017-09-29 19:54] VITALS: RESP 16
[2017-09-30 06:05] VITALS: BP 121/70; PULSE 72; TEMP 98.4; O2SAT 99
== END 2017-09-30 06:07 | disposition home or self-care (01) ==
LOC: ED 15:07
DX: F10.129 Alcohol abuse with intoxication, unspecified (principal); F17.200 Nicotine dependence, unspecified, uncomplicated; I10 Essential (primary) hypertension

== ENCOUNTER 2017-09-30 10:29 | Emergency (ER) | payer MEDICAID ==
[2017-09-30 10:29] VITALS: BMI 27.2
[2017-09-30 10:37] VITALS: BP 136/81; PULSE 86; RESP 17; TEMP 97.4; O2SAT 100
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
== END 2017-09-30 18:00 | disposition home or self-care (01) ==
LOC: ED 10:29
DX: F10.129 Alcohol abuse with intoxication, unspecified (principal); I10 Essential (primary) hypertension; F17.200 Nicotine dependence, unspecified, uncomplicated

== ENCOUNTER 2017-09-30 22:25 | Emergency (ER) | payer MEDICAID ==
[2017-09-30 22:25] VITALS: BMI 27.2
[2017-09-30 22:43] VITALS: BP 128/84; PULSE 76; RESP 18; TEMP 98.2; O2SAT 99
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
== END 2017-09-30 23:30 | disposition left against medical advice (07) ==
LOC: ED 22:25
DX: F10.129 Alcohol abuse with intoxication, unspecified (principal); F17.200 Nicotine dependence, unspecified, uncomplicated; I10 Essential (primary) hypertension

== ENCOUNTER 2017-10-01 14:19 | Emergency (ER) | payer MEDICAID ==
[2017-10-01 14:20] VITALS: BMI 27.2
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
[2017-10-01 17:01] VITALS: TEMP 98.5
[2017-10-01 20:01] VITALS: RESP 16
[2017-10-01 21:20] VITALS: BP 116/82; PULSE 92; O2SAT 100
== END 2017-10-01 21:18 | disposition home or self-care (01) ==
LOC: ED 14:19
DX: F10.129 Alcohol abuse with intoxication, unspecified (principal); F17.200 Nicotine dependence, unspecified, uncomplicated; I10 Essential (primary) hypertension

== ENCOUNTER 2017-10-02 19:04 | Emergency (ER) | payer MEDICAID ==
[2017-10-02 19:05] VITALS: BMI 27.2
[2017-10-02 19:56] VITALS: TEMP 98.1; O2SAT 98
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
[2017-10-02 22:44] VITALS: RESP 17
[2017-10-03 01:57] VITALS: BP 134/74; PULSE 90
== END 2017-10-03 05:52 | disposition home or self-care (01) ==
LOC: ED 19:04
DX: F10.129 Alcohol abuse with intoxication, unspecified (principal); F17.200 Nicotine dependence, unspecified, uncomplicated; I10 Essential (primary) hypertension

== ENCOUNTER 2017-10-03 21:09 | Emergency (ER) | payer MEDICAID ==
[2017-10-03 21:14] VITALS: BMI 29.2
[2017-10-03 21:18] VITALS: O2SAT 99
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
[2017-10-04 00:09] VITALS: TEMP 98.6
[2017-10-04 00:41] VITALS: BP 130/82; PULSE 67; RESP 16
== END 2017-10-04 00:43 | disposition home or self-care (01) ==
LOC: ED 21:09
DX: F10.229 Alcohol dependence with intoxication, unspecified (principal); Y90.9 Presence of alcohol in blood, level not specified; J44.9 Chronic obstructive pulmonary disease, unspecified; F17.210 Nicotine dependence, cigarettes, uncomplicated

== ENCOUNTER 2017-10-04 14:51 | Emergency (ER) | payer MEDICAID ==
[2017-10-04 14:51] VITALS: BMI 29.2
[2017-10-04 15:00] VITALS: TEMP 98.5
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
[2017-10-04 18:34] VITALS: RESP 16
[2017-10-04 18:36] VITALS: BP 128/89; PULSE 76; O2SAT 95
== END 2017-10-04 22:05 | disposition home or self-care (01) ==
LOC: ED 14:51
DX: F10.129 Alcohol abuse with intoxication, unspecified (principal); Y90.9 Presence of alcohol in blood, level not specified

== ENCOUNTER 2017-10-05 14:15 | Emergency (ER) | payer MEDICAID ==
[2017-10-05 14:28] VITALS: BP 124/81; PULSE 91; RESP 16; TEMP 98.1; O2SAT 97; BMI 24.2
== END 2017-10-05 15:22 | disposition left against medical advice (07) ==
LOC: ED 14:15
DX: Z02.89 Encounter for other administrative examinations (principal); F10.10 Alcohol abuse, uncomplicated

== ENCOUNTER 2017-10-06 16:00 | Emergency (ER) | payer MEDICAID ==
[2017-10-06 16:21] VITALS: BMI 28.3
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
[2017-10-07 04:02] VITALS: RESP 19
[2017-10-07 05:16] VITALS: BP 130/85; PULSE 70; TEMP 98.5; O2SAT 99
== END 2017-10-07 05:48 | disposition home or self-care (01) ==
LOC: ED 16:00
DX: F10.129 Alcohol abuse with intoxication, unspecified (principal); Y90.9 Presence of alcohol in blood, level not specified

== ENCOUNTER 2017-10-07 13:24 | Emergency (ER) | payer MEDICAID ==
[2017-10-07 13:25] VITALS: BMI 27.2
[2017-10-07 13:31] VITALS: BP 105/49; PULSE 81; RESP 16; TEMP 97.6; O2SAT 97
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
== END 2017-10-07 16:30 | disposition home or self-care (01) ==
LOC: ED 13:24
DX: F10.129 Alcohol abuse with intoxication, unspecified (principal); Y90.9 Presence of alcohol in blood, level not specified

== ENCOUNTER 2017-10-07 19:28 | Emergency (ER) | payer MEDICAID ==
[2017-10-07 19:28] VITALS: BMI 27.2
[2017-10-07 19:51] VITALS: BP 133/88; PULSE 87; RESP 18; TEMP 98; O2SAT 99
== END 2017-10-07 20:21 | disposition left against medical advice (07) ==
LOC: ED 19:28
DX: Z02.89 Encounter for other administrative examinations (principal); G47.00 Insomnia, unspecified

== ENCOUNTER 2017-10-09 14:37 | Emergency (ER) | payer MEDICAID ==
[2017-10-09 14:37] VITALS: BMI 27.2
[2017-10-09] MEDS ORDERED: Thiamine 100 mg/ml Inj IM STA (14:59)
[2017-10-09 16:55] VITALS: TEMP 97.8; O2SAT 98
[2017-10-09 17:54] VITALS: BP 120/80; PULSE 72; RESP 17
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
== END 2017-10-09 17:52 | disposition home or self-care (01) ==
LOC: ED 14:37
DX: F10.10 Alcohol abuse, uncomplicated (principal); Y90.9 Presence of alcohol in blood, level not specified
CPT/HCPCS: 82948; 96372; 99283; J3411

== ENCOUNTER 2017-10-10 19:19 | Emergency (ER) | payer MEDICAID ==
[2017-10-10 19:19] VITALS: BMI 27.2
[2017-10-10 19:30] VITALS: TEMP 98.2
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
[2017-10-11 06:53] VITALS: BP 134/78; PULSE 78; RESP 16; O2SAT 100
== END 2017-10-11 06:08 | disposition home or self-care (01) ==
LOC: ED 19:19
DX: F10.10 Alcohol abuse, uncomplicated (principal); Z59.0 Homelessness; I10 Essential (primary) hypertension

== ENCOUNTER 2017-10-11 17:20 | Emergency (ER) | payer MEDICAID | END 2017-10-11 21:51 | disposition left against medical advice (07) | LOC: ED 17:20 | DX: Z02.89 Encounter for other administrative examinations (principal); Z00.00 Encounter for general adult medical examination without abnormal findings ==

== ENCOUNTER 2017-10-11 23:43 | Emergency (ER) | payer MEDICAID ==
[2017-10-11 23:58] VITALS: BP 128/76; PULSE 68; RESP 18; TEMP 98.2; O2SAT 99
[2017-10-13 06:59] VITALS: BMI 24.2
== END 2017-10-12 01:24 | disposition left against medical advice (07) ==
LOC: ED 23:43
DX: Z02.89 Encounter for other administrative examinations (principal); Z00.00 Encounter for general adult medical examination without abnormal findings

== ENCOUNTER 2017-10-12 10:30 | Emergency (ER) | payer MEDICAID ==
[2017-10-12 10:42] VITALS: TEMP 97.9; BMI 24.2
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
[2017-10-12 18:29] VITALS: BP 118/78; PULSE 82; RESP 18; O2SAT 99
== END 2017-10-12 18:30 | disposition home or self-care (01) ==
LOC: ED 10:30
DX: F10.10 Alcohol abuse, uncomplicated (principal); I10 Essential (primary) hypertension

== ENCOUNTER 2017-10-13 06:58 | Emergency (ER) | payer MEDICAID ==
[2017-10-13 06:59] VITALS: BMI 24.2
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
[2017-10-13 17:01] VITALS: RESP 18
[2017-10-13 18:18] VITALS: BP 132/79; PULSE 84; TEMP 98; O2SAT 97
== END 2017-10-13 18:20 | disposition home or self-care (01) ==
LOC: ED 06:58
DX: F10.129 Alcohol abuse with intoxication, unspecified (principal); I10 Essential (primary) hypertension

== ENCOUNTER 2017-10-13 23:11 | Emergency (ER) | payer MEDICAID ==
[2017-10-13 23:11] VITALS: BMI 24.2
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
[2017-10-13 23:28] VITALS: TEMP 97.7
[2017-10-14 02:20] VITALS: RESP 16; O2SAT 98
[2017-10-14 06:28] VITALS: BP 138/78; PULSE 88
== END 2017-10-14 06:28 | disposition home or self-care (01) ==
LOC: ED 23:11
DX: F10.129 Alcohol abuse with intoxication, unspecified (principal); I10 Essential (primary) hypertension

== ENCOUNTER 2017-10-14 12:51 | Emergency (ER) | payer MEDICAID ==
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
[2017-10-14 13:20] VITALS: TEMP 98
[2017-10-14 13:21] VITALS: BMI 26.5
[2017-10-14 15:52] VITALS: RESP 17
[2017-10-14 15:54] VITALS: BP 123/78; PULSE 85; O2SAT 98
== END 2017-10-14 15:54 | disposition home or self-care (01) ==
LOC: ED 12:51
DX: F10.10 Alcohol abuse, uncomplicated (principal); I10 Essential (primary) hypertension

== ENCOUNTER 2017-10-15 07:30 | Emergency (ER) | payer MEDICAID ==
[2017-10-15 07:35] VITALS: BMI 30.2
[2017-10-15 07:51] VITALS: BP 132/80; PULSE 87; RESP 19; TEMP 97.5; O2SAT 100
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
== END 2017-10-15 09:35 | disposition home or self-care (01) ==
LOC: ED 07:30
DX: F10.129 Alcohol abuse with intoxication, unspecified (principal); I10 Essential (primary) hypertension; Z59.0 Homelessness

== ENCOUNTER 2017-10-15 19:18 | Emergency (ER) | payer MEDICAID ==
[2017-10-15 19:18] VITALS: BMI 30.2
[2017-10-15 19:31] VITALS: BP 133/81; PULSE 84; RESP 18; TEMP 98; O2SAT 97
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
== END 2017-10-15 20:20 | disposition home or self-care (01) ==
LOC: ED 19:18
DX: Z59.0 Homelessness (principal); I10 Essential (primary) hypertension

== ENCOUNTER → 2017-10-15 | Emergency (ER) | payer MEDICAID ==
[2017-10-15 03:33] VITALS: BMI 26.5
[2017-10-15 03:41] VITALS: BP 123/77; PULSE 74; RESP 18; TEMP 97.6; O2SAT 97
== END | disposition left against medical advice (07) ==
LOC: ED 03:33
DX: Z00.00 Encounter for general adult medical examination without abnormal findings (principal); Z02.89 Encounter for other administrative examinations

== ENCOUNTER 2017-10-16 08:48 | Emergency (ER) | payer MEDICAID ==
[2017-10-16 08:48] VITALS: BMI 30.2
[2017-10-16 09:20] VITALS: TEMP 98.3
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
[2017-10-16 16:46] VITALS: BP 120/68; PULSE 81; RESP 16; O2SAT 97
== END 2017-10-16 16:47 | disposition home or self-care (01) ==
LOC: ED 08:48
DX: F10.129 Alcohol abuse with intoxication, unspecified (principal); I10 Essential (primary) hypertension

== ENCOUNTER 2017-10-16 21:17 | Emergency (ER) | payer MEDICAID ==
[2017-10-16 21:18] VITALS: BMI 30.2
[2017-10-16 21:23] VITALS: BP 114/78; PULSE 86; RESP 16; TEMP 98; O2SAT 99
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
== END 2017-10-16 23:15 | disposition left against medical advice (07) ==
LOC: ED 21:17
DX: Z91.19 Patient's noncompliance with other medical treatment and regimen (principal); I10 Essential (primary) hypertension

== ENCOUNTER 2017-10-17 08:39 | Emergency (ER) | payer MEDICAID ==
[2017-10-17 09:15] VITALS: BMI 29.2
[2017-10-17 09:17] VITALS: BP 131/96; PULSE 85; RESP 18; TEMP 97.6; O2SAT 98
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
== END 2017-10-17 12:30 | disposition home or self-care (01) ==
LOC: ED 08:39
DX: F10.229 Alcohol dependence with intoxication, unspecified (principal); Y90.9 Presence of alcohol in blood, level not specified

== ENCOUNTER 2017-10-17 16:01 | Emergency (ER) | payer MEDICAID ==
[2017-10-17 16:01] VITALS: BMI 29.2
[2017-10-17 16:09] VITALS: TEMP 98
[2017-10-17 16:29] VITALS: BP 130/88
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
[2017-10-17 19:11] VITALS: PULSE 88; RESP 19
[2017-10-17 19:15] VITALS: O2SAT 99
== END 2017-10-17 19:15 | disposition home or self-care (01) ==
LOC: ED 16:01
DX: F10.10 Alcohol abuse, uncomplicated (principal); Y90.9 Presence of alcohol in blood, level not specified

== ENCOUNTER 2017-10-18 16:44 | Emergency (ER) | payer MEDICAID ==
[2017-10-18 16:44] VITALS: BMI 26.5
== END 2017-10-18 17:55 | disposition left against medical advice (07) ==
LOC: ED 16:44
DX: Z02.89 Encounter for other administrative examinations (principal); F10.10 Alcohol abuse, uncomplicated

== ENCOUNTER 2017-10-18 20:38 | Emergency (ER) | payer MEDICAID ==
[2017-10-18 20:40] VITALS: BMI 26.5
[2017-10-18 20:45] VITALS: BP 124/76; PULSE 84; RESP 18; TEMP 98.2; O2SAT 99
== END 2017-10-18 21:25 | disposition left against medical advice (07) ==
LOC: ED 20:38
DX: Z02.89 Encounter for other administrative examinations (principal)

== ENCOUNTER → 2017-10-18 | Emergency (ER) | payer MEDICAID ==
[2017-10-18 13:15] VITALS: BMI 26.5
== END | disposition left against medical advice (07) ==
LOC: ED 12:36
DX: Z02.89 Encounter for other administrative examinations (principal); F10.10 Alcohol abuse, uncomplicated

== ENCOUNTER 2017-10-19 05:50 | Emergency (ER) | payer MEDICAID ==
[2017-10-19 05:50] VITALS: BMI 26.5
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
[2017-10-19 10:51] VITALS: RESP 20; TEMP 98
[2017-10-19 14:18] VITALS: BP 119/72; PULSE 75; O2SAT 99
== END 2017-10-19 14:19 | disposition home or self-care (01) ==
LOC: ED 05:50
DX: Z59.0 Homelessness (principal)

== ENCOUNTER 2017-10-19 20:40 | Emergency (ER) | payer MEDICAID ==
[2017-10-19 20:41] VITALS: BMI 26.5
[2017-10-19 21:00] VITALS: BP 124/71; PULSE 66; RESP 18; TEMP 96.8; O2SAT 99
== END 2017-10-19 22:08 | disposition left against medical advice (07) ==
LOC: ED 20:40
DX: Z02.89 Encounter for other administrative examinations (principal); Z59.0 Homelessness

== ENCOUNTER 2017-10-21 06:43 | Emergency (ER) | payer MEDICAID ==
[2017-10-21 06:44] VITALS: BMI 26.5
[2017-10-21 06:57] VITALS: O2SAT 99
[2017-10-21 06:59] VITALS: TEMP 97.8
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
[2017-10-21 13:09] VITALS: BP 137/75; PULSE 68; RESP 18
== END 2017-10-21 14:30 | disposition home or self-care (01) ==
LOC: ED 06:43
DX: F10.129 Alcohol abuse with intoxication, unspecified (principal); Y90.9 Presence of alcohol in blood, level not specified

== ENCOUNTER 2017-10-22 17:00 | Emergency (ER) | payer MEDICAID ==
[2017-10-22 17:00] VITALS: BMI 26.5
[2017-10-22 17:33] VITALS: RESP 18; TEMP 98.2
[2017-10-22] MEDS ORDERED: Thiamine 100 mg/ml Inj IM STA (21:23)
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
[2017-10-23 03:43] VITALS: BP 122/74; PULSE 92; O2SAT 100
== END 2017-10-23 03:46 | disposition home or self-care (01) ==
LOC: ED 17:00
DX: F10.10 Alcohol abuse, uncomplicated (principal); Y90.9 Presence of alcohol in blood, level not specified

== ENCOUNTER 2017-10-23 10:41 | Inpatient (IN) | payer MEDICAID ==
[2017-10-23 10:41] VITALS: BMI 26.5
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
[2017-10-23 11:55] LABS: BASO # 0.04 K/mm3 (0.0-2.0); BASO % 0.5 % (0.0-3.0); EOS # 0.1 (0.0-0.7); EOS % 0.7 % (1.5-5.0); GRAN # 4.43 (1.4-6.5); GRAN % 58.3 % (50.0-68.0); HEMATOCRIT 35.6 % (42.0-52.0); LYMPH # 2.5 (1.2-3.4); LYMPH % 32.3 % (22.0-35.0); MEAN CELL VOLUME 102.9 fl (80.0-105.0); MEAN CORPUSCULAR HEMOGLOBIN 36.4 pg (25.0-35.0); MEAN CORPUSCULAR HGB CONC 35.4 g/dl (31.0-37.0); MEAN PLATELET VOLUME 10.5 fl (7.0-11.0); MONO # 0.6 (0.1-0.6); MONO % 8.2 % (1.0-6.0); RED CELL DISTRIBUTION WIDTH 12.4 % (11.5-14.5); WHITE BLOOD COUNT 7.6 10^3/ul (4.5-11.0)
[2017-10-23 12:06] LABS: INR 1.14 (0.93-1.08); PARTIAL THROMBOPLASTIN TIME 32.8 Seconds (25.1-36.5)
[2017-10-23 13:17] LABS: POTASSIUM 3.9 mmol/L (3.6-5.0)
[2017-10-23 13:19] LABS: ALT/SGPT 88 U/L (7-56)
[2017-10-23 13:22] LABS: BILIRUBIN,TOTAL 2.2 mg/dL (0.2-1.3); CALCIUM 9.4 mg/dL (8.4-10.5); GFR AFRICAN-AMERICAN > 60; GLUCOSE,RANDOM 101 mg/dL (70-110); LIPASE 208 U/L (23-300)
[2017-10-23] MEDS ORDERED: Iohexol 240 (50 ml) ONE (13:52)
[2017-10-23] MEDS: Multivitamin (MVI) 10 ML, Thiamine 100 MG, Folic Acid 1 MG in Sodium Chloride 0.9% 1,00... IV SCH (15:34)
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
[2017-10-23 15:40] LABS: URINE BILIRUBIN NEGATIVE (NEGATIVE); URINE BLOOD TRACE-INTACT (NEGATIVE); URINE GLUCOSE (UA) NEGATIVE (NEGATIVE); URINE KETONE NEGATIVE (NEGATIVE); URINE LEUKOCYTE ESTERASE MODERATE Leu/uL (NEGATIVE); URINE PROTEIN TRACE mg/dL (<30 mg/dL)
[2017-10-23 15:46] LABS: URINE APPEARANCE SL CLOUDY (CLEAR); URINE COLOR YELLOW (YELLOW)
[2017-10-23 16:00] LABS: URINE BACTERIA MOD (NEG); URINE WBC TNTC /hpf (0-6)
[2017-10-23] MEDS ORDERED: Pneumococcal 23-Valent Vaccine IM ONE (16:16)
[2017-10-23] MEDS ORDERED: Influenza Vaccine 60 mcg/0.5 mL SYR (4YR UP) IM ONE (16:16)
[2017-10-23] MEDS ORDERED: Iohexol 350 MG/100 ML VIAL ONE (16:32)
[2017-10-23 16:39] LABS: ALKALINE PHOSPHATASE 312 U/L (38-126); AST/SGOT 381 U/L (17-59); BLOOD UREA NITROGEN 6 mg/dL (7-21); CARBON DIOXIDE 23 mmol/L (21-33); CHLORIDE 97 mmol/L (98-107); SODIUM 134 mmol/L (132-148)
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
--- NOTE | 2017-10-23 17:35 | CT ---
PROCEDURE: CT Abdomen and Pelvis with oral and IV contrast. HISTORY: abd pain rectal bleeding hx of pancreatic mass COMPARISON: CT abdomen and pelvis with contrast performed 08/04/17 TECHNIQUE: Contiguous axial images of the abdomen and pelvis. Oral and IV contrast was administered. Coronal and Sagittal reformats generated and reviewed. Contrast dose: 100 mL Omnipaque 350 Radiation dose: Total exam DLP = 807.50 mGy-cm. This CT exam was performed using one or more of the following dose reduction techniques: Automated exposure control, adjustment of the mA and/or kV according to patient size, and/or use of iterative reconstruction technique. FINDINGS: LOWER THORAX: No visible consolidation, pleural effusion, or pneumothorax. LIVER: Mild hepatomegaly. Hypoattenuation of the liver compatible with hepatic steatosis. GALLBLADDER AND BILE DUCTS: Unremarkable. PANCREAS: Subtle solid-appearing mass re-identified at the tail of the pancreas measuring approximately 2.0 x 2.5 cm, similar to prior study. SPLEEN: Unremarkable. ADRENALS: Unremarkable. KIDNEYS AND URETERS: The kidneys enhance symmetrically. No hydronephrosis or obstructing renal calculus. BLADDER: Urinary bladder distension otherwise unremarkable. REPRODUCTIVE: Unremarkable. APPENDIX: The appendix appears within normal limits of caliber. No secondary signs of acute appendicitis. BOWEL: The stomach is nondistended. The bowel loops appear within normal limits of caliber without evidence of intestinal obstruction. PERITONEUM: No significant free fluid. No definite free air. LYMPH NODES: No bulky lymphadenopathy identified. VASCULATURE: No aortic aneurysm. BONES: No acute osseous abnormality is detected. OTHER FINDINGS: None. IMPRESSION: Subtle solid-appearing mass re-identified at the level the pancreatic tail, without significant interval change appreciated ; indeterminate. Continued follow-up is recommended. Hepatomegaly. Hypoattenuation of the liver compatible with hepatic steatosis. Additional incidental findings as above.
[2017-10-23] MEDS: Ciprofloxacin 400mg/200ml D5W 400 MG/200 ML BAG IVPB SCH (18:07)
--- NOTE | 2017-10-23 19:38 | CARD ---
APPROVED REPORT EKG Measurement Heart [id number] <Conclusion> Normal sinus rhythm Poor RR progression Abnormal ECG
[2017-10-23 21:31] LABS: HEMATOCRIT 34.7 % (42.0-52.0); MEAN CELL VOLUME 103.3 fl (80.0-105.0); MEAN CORPUSCULAR HGB CONC 34.9 g/dl (31.0-37.0); MEAN PLATELET VOLUME 10.4 fl (7.0-11.0); RED CELL DISTRIBUTION WIDTH 12.5 % (11.5-14.5); WHITE BLOOD COUNT 5.6 10^3/ul (4.5-11.0)
[2017-10-24 07:16] LABS: BASO # 0.05 K/mm3 (0.0-2.0); BASO % 0.7 % (0.0-3.0); EOS # 0.1 (0.0-0.7); EOS % 1.3 % (1.5-5.0); GRAN # 4.51 (1.4-6.5); GRAN % 66.9 % (50.0-68.0); HEMATOCRIT 33.9 % (42.0-52.0); LYMPH # 1.4 (1.2-3.4); LYMPH % 20.6 % (22.0-35.0); MEAN CELL VOLUME 104.6 fl (80.0-105.0); MEAN CORPUSCULAR HEMOGLOBIN 35.8 pg (25.0-35.0); MEAN CORPUSCULAR HGB CONC 34.2 g/dl (31.0-37.0); MEAN PLATELET VOLUME 11.7 fl (7.0-11.0); MONO # 0.7 (0.1-0.6); MONO % 10.5 % (1.0-6.0); RED CELL DISTRIBUTION WIDTH 12.4 % (11.5-14.5); WHITE BLOOD COUNT 6.8 10^3/ul (4.5-11.0)
[2017-10-24 07:18] LABS: MAGNESIUM 1.4 mg/dL (1.7-2.2)
[2017-10-24] MEDS ORDERED: Magnesium Sulfate 2 GM in Sodium Chloride 0.9% 100 ML IVPB ONE (07:49)
[2017-10-24 09:28] LABS: ALB/GLOB RATIO 0.9 (1.1-1.8); ALKALINE PHOSPHATASE 329 U/L (38-126); ALT/SGPT 88 U/L (7-56); AST/SGOT 425 U/L (17-59); BILIRUBIN,TOTAL 3.8 mg/dL (0.2-1.3); BLOOD UREA NITROGEN 5 mg/dL (7-21); CALCIUM 9.4 mg/dL (8.4-10.5); CARBON DIOXIDE 24 mmol/L (21-33); CHLORIDE 101 mmol/L (98-107); GFR AFRICAN-AMERICAN > 60; GLUCOSE,RANDOM 100 mg/dL (70-110); POTASSIUM 3.5 mmol/L (3.6-5.0); SODIUM 138 mmol/L (132-148); TOTAL PROTEIN 8.8 g/dL (5.8-8.3)
[2017-10-24] MEDS ORDERED: Potassium Chloride 20 mEq/15 ml LIQ UD PO ONE (10:47)
[2017-10-24] MEDS: Ciprofloxacin 400mg/200ml D5W 400 MG/200 ML BAG IVPB SCH (11:47)
[2017-10-24] MEDS: Multivitamin With Minerals Tab PO SCH (11:48)
[2017-10-24] MEDS: Multivitamin (MVI) 10 ML, Thiamine 100 MG, Folic Acid 1 MG in Sodium Chloride 0.9% 1,00... IV SCH (11:50)
[2017-10-24] MEDS ORDERED: Peg-Electrolyte Oral Soln 4L (Golytely) PO ONE (14:00)
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
[2017-10-24 17:40] LABS: FOLATE > 20.0 ng/mL
--- NOTE | 2017-10-24 18:47 | CP.PCM.PN ---
<MarissaRy - Last Filed: 10/24/17 18:43> Subjective - Date & Time of Evaluation Date of Evaluation: 10/24/17 Time of Evaluation: 07:30 - Subjective Subjective: Ry Ann DO PGY1 - Internal Medicine Progress Note Patient seen and examined at bedside. No events overnight. Patient reports one bloody BM overnight. Denies abdominal pain. Does report some tremor and agitation. Admits to subjective fever and chills. Reports slight improvement in dysuria. Objective - Vital Signs/Intake and Output Vital Signs (last 24 hours): Temp Pulse Resp BP Pulse Ox 99.1 F 93 H 20 163/104 H 97 10/24/17 16:00 10/24/17 16:00 10/24/17 16:00 10/24/17 16:00 10/24/17 16:00 Intake and Output: 10/24/17 10/24/17 06:59 18:59 Intake Total 480 2500 Balance 480 2500 - Medications Medications: Current Medications Folic Acid (Folic Acid) 1 mg PO DAILY [facility] Last Admin: 10/24/17 11:47 Dose: 1 mg Multivitamins/Vitamin C 10 ml/Thiamine HCl 100 mg/ Folic Acid 1 mg/ Sodium Chloride 1,011.2 mls @ 100 mls/hr IV .Q10H7M [facility] Last Admin: 10/24/17 11:50 Dose: 100 mls/hr Ciprofloxacin (Cipro 400mg/200ml Dsw) 400 mg in 200 mls @ 133.3 mls/hr IVPB Q12 [facility] PRN Reason: Protocol Stop: 10/24/17 23:31 Lorazepam (Ativan) 1 mg IVP Q4H PRN PRN Reason: Symptoms of alcohol withdrawl Lorazepam (Ativan) 1 mg IVP Q6H JOHNNIE PRN Reason: Protocol Last Admin: 10/24/17 14:14 Dose: 1 mg Multivitamins/Minerals (Therapeutic-M Tab) 1 tab PO DAILY [facility] Last Admin: 10/24/17 11:48 Dose: 1 tab Pantoprazole Sodium (Protonix Inj) 40 mg IVP DAILY [facility] Last Admin: 10/24/17 11:48 Dose: 40 mg Thiamine HCl (Vitamin B1 Tab) 100 mg PO DAILY [facility] Last Admin: 10/24/17 11:47 Dose: 100 mg - Labs Labs: 10/24/17 05:40 10/24/17 05:40 PT 12.6 SECONDS (9.4-12.5) H 10/23/17 11:35 INR 1.14 (0.93-1.08) H 10/23/17 11:35 APTT 32.8 Seconds (25.1-36.5) 10/23/17 11:35 - Constitutional Appears: Non-toxic, No Acute Distress, Unkempt - Head Exam Head Exam: NORMOCEPHALIC Additional comments: Abrasion on vertex and brow unchanged - Eye Exam Eye Exam: EOMI, Normal appearance. absent: Scleral icterus - ENT Exam ENT Exam: Mucous Membranes Moist - Neck Exam Neck Exam: Normal Inspection - Respiratory Exam Respiratory Exam: Clear to Ausculation Bilateral, NORMAL BREATHING PATTERN - Cardiovascular Exam Cardiovascular Exam: RRR, +S1, +S2 - GI/Abdominal Exam GI & Abdominal Exam: Soft, Organomegaly (liver 4cm below costal margin). absent : Distended, Firm, Guarding, Rigid, Tenderness, Rebound - Extremities Exam Extremities Exam: absent: Calf Tenderness, Pedal Edema - Neurological Exam Neurological Exam: Alert, Awake, Oriented x3 - Psychiatric Exam Psychiatric exam: Normal Affect, Normal Mood - Skin Skin Exam: Dry, Intact Assessment and Plan - Assessment and Plan (Free Text) Assessment: Patient is a 47 year old male with PMHx of alcohol abuse, hypertension, DM, presents with active GIB and markedly elevation ETOH level Plan: 1. Rectal bleeding - Likely 2/2 internal hemorrhoids vs diverticular bleed vs angiodysplasia vs rectal varices vs malignancy - H&H dropped by about 1 point total since admission, likely dilutional component; will continue to monitor - Type and screen done - Repeat CBC with daily labs - CT A/P shows pancreatic mass, unchanged since prior exam. No colonic or gastric masses noted. - Will obtain abdominal MRI to deliniate further details about pancreatic mass, per GI - Plan for EGD and colonoscopy tomorrow per GI; prep today, with clear liquid diet - GI consult requested, appreciate recs 2. Fall, head trauma - Patient reports mechanical fall while intoxicated - Patient is unsure of whether he hit his head or not, but multiple abrasions noted on exam - Neuro exam remains nonfocal - Head CT done yesterday shows no acute intracranial abnormalities 3. Transminemia - AST:ALT > 2; most likely 2/2 alcoholic liver disease; trended up slightly today - CT abd/pelv with PO and IV significant for hepatomegaly and steatosis; no CBD dilation noted - Will obtain abdominal MRI with contrast and MRCP per GI - Prior hepatitis panel in 07/2017 negative - GI on consult, appreciate recs 4. ETOH Abuse - Serum EtOH level elevated in ER; appears to be in the early stages of withdrawal - [facility] protocol - Ativan 1mg q4 prn withdrawl symptoms, q6 johnnie - Continue Banana Bag - Fall and seizure precautions 5. Dysuria, hematuria, and frequency - UA in ER significant for moderate LE, tntc WBC, and trace hematuria; also notable for moderate bacteria and 6-8 epithelial cells, so may be contaminants. Given symptoms, continue IV cipro for one more day, then switch to PO if symptoms improve; UCx ordered, pending - Hydrate with IVF and monitor 6. History of HTN - Patient was normotensive in ED, but moderately elevated BP reading this AM - Continue to monitor; consider adding antihypertensive if no improvement 7. h/o DM - Patient remains euglycemic - Continue to monitor with daily fasting labs GI/DVT Ppx - Protonix and SCD, avoid anticoagulation for GIB Patient seen, evaluated, and discussed with attending <Codie Monsivais - Last Filed: 10/25/17 07:17> Objective - Vital Signs/Intake and Output Vital Signs (last 24 hours): Temp Pulse Resp BP Pulse Ox 99.1 F 89 20 163/104 H 97 10/24/17 16:00 10/25/17 04:52 10/24/17 16:00 10/24/17 16:00 10/24/17 16:00 Intake and Output: 10/25/17 10/25/17 06:59 18:59 Intake Total 1150 Output Total 303 Balance 847 - Medications Medications: Current Medications Folic Acid (Folic Acid) 1 mg PO DAILY [facility] Last Admin: 10/24/17 11:47 Dose: 1 mg Multivitamins/Vitamin C 10 ml/Thiamine HCl 100 mg/ Folic Acid 1 mg/ Sodium Chloride 1,011.2 mls @ 100 mls/hr IV .Q10H7M [facility] Last Admin: 10/24/17 11:50 Dose: 100 mls/hr Lorazepam (Ativan) 1 mg IVP Q4H PRN PRN Reason: Symptoms of alcohol withdrawl Lorazepam (Ativan) 1 mg IVP Q6H [facility] PRN Reason: Protocol Last Admin: 10/25/17 02:47 Dose: 1 mg Multivitamins/Minerals (Therapeutic-M Tab) 1 tab PO DAILY [facility] Last Admin: 10/24/17 11:48 Dose: 1 tab Pantoprazole Sodium (Protonix Inj) 40 mg IVP DAILY [facility] Last Admin: 10/24/17 11:48 Dose: 40 mg Thiamine HCl (Vitamin B1 Tab) 100 mg PO DAILY [facility] Last Admin: 10/24/17 11:47 Dose: 100 mg - Labs Labs: 10/24/17 05:40 10/24/17 05:40 PT 12.6 SECONDS (9.4-12.5) H 10/23/17 11:35 INR 1.14 (0.93-1.08) H 10/23/17 11:35 APTT 32.8 Seconds (25.1-36.5) 10/23/17 11:35 Attending/Attestation - Attestation I have personally seen and examined this patient.: Yes I have fully participated in the care of the patient.: Yes I have reviewed all pertinent clinical information, including history, physical exam and plan: Yes Notes (Text): 10/25/17 07:14 47 year old male with past medical history of chronic ETOH abuse who presented with complaint of rectal bleeding and alcohol intoxication. He is being followed by GI and plan is for EGD/colonoscopy tomorrow. He is on protonix. CT abd/pelvis was reviewed as above. LFTs are increased today and MRI/MRCP is ordered. Will continue to monitor. Continue with banana bag and ativan johnnie/prn for withdrawal symptoms. He was counselled on alcohol abstinence. He is on cipro for possible UTI while awaiting UCx. Will replete and repeat lytes. Codie Monsivais MD Hospitalist.
[2017-10-24] MEDS ORDERED: Ciprofloxacin 400mg/200ml D5W 400 MG/200 ML BAG IVPB SCH (22:00)
[2017-10-25 07:05] LABS: BASO # 0.03 K/mm3 (0.0-2.0); BASO % 0.5 % (0.0-3.0); EOS # 0.1 (0.0-0.7); EOS % 2.5 % (1.5-5.0); GRAN # 3.55 (1.4-6.5); GRAN % 63.6 % (50.0-68.0); HEMATOCRIT 33.9 % (42.0-52.0); LYMPH # 1.4 (1.2-3.4); LYMPH % 25.2 % (22.0-35.0); MEAN CELL VOLUME 105.3 fl (80.0-105.0); MEAN CORPUSCULAR HGB CONC 34.2 g/dl (31.0-37.0); MEAN PLATELET VOLUME 11.6 fl (7.0-11.0); MONO # 0.5 (0.1-0.6); MONO % 8.2 % (1.0-6.0); RED CELL DISTRIBUTION WIDTH 12.2 % (11.5-14.5); WHITE BLOOD COUNT 5.6 10^3/ul (4.5-11.0)
[2017-10-25 07:20] LABS: INR 1.25 (0.93-1.08); PARTIAL THROMBOPLASTIN TIME 30.9 Seconds (25.1-36.5)
[2017-10-25 07:52] LABS: ALB/GLOB RATIO 0.9 (1.1-1.8); ALKALINE PHOSPHATASE 306 U/L (38-126); ALT/SGPT 116 U/L (7-56); AST/SGOT 370 U/L (17-59); BILIRUBIN,TOTAL 3.1 mg/dL (0.2-1.3); BLOOD UREA NITROGEN 4 mg/dL (7-21); CALCIUM 9.7 mg/dL (8.4-10.5); CARBON DIOXIDE 24 mmol/L (21-33); CHLORIDE 102 mmol/L (98-107); GFR AFRICAN-AMERICAN > 60; GLUCOSE,RANDOM 108 mg/dL (70-110); POTASSIUM 3.2 mmol/L (3.6-5.0); SODIUM 138 mmol/L (132-148); TOTAL PROTEIN 8.6 g/dL (5.8-8.3)
[2017-10-25] MEDS ORDERED: Potassium Chloride 20 mEq ER Tab PO STA (08:09)
[2017-10-25] MEDS: Multivitamin (MVI) 10 ML, Thiamine 100 MG, Folic Acid 1 MG in Sodium Chloride 0.9% 1,00... IV SCH (08:11)
[2017-10-25] MEDS ORDERED: Magnesium Sulfate 1 gm in D5W 1 GM/100 ML BAG IVPB STA (09:25)
[2017-10-25] MEDS: Multivitamin With Minerals Tab PO SCH (10:03)
[2017-10-25] MEDS ORDERED: cefTRIAXone 1 gm 1 GM/100 ML BAG IVPB SCH (10:30)
--- NOTE | 2017-10-25 10:56 | CP.PCM.PN ---
<Ry Ann - Last Filed: 10/25/17 10:52> Subjective - Date & Time of Evaluation Date of Evaluation: 10/25/17 Time of Evaluation: 07:30 - Subjective Subjective: Ry Ann DO PGY1 - Internal Medicine Progress Note Patient seen and examined at bedside, no events overnight. Patient reports less blood in bowel movements. No more arlene bloody bowel movements. He denies abdominal pain. Continues to have dysuria and hesitancy. Patient is scheduled for abdomen MRI, MRCP and EGD/Colonoscopy today. He reports having completed the prep as instructed. Objective - Vital Signs/Intake and Output Vital Signs (last 24 hours): Temp Pulse Resp BP Pulse Ox 99 F 99 H 20 141/91 H 98 10/25/17 08:49 10/25/17 08:49 10/25/17 08:49 10/25/17 08:49 10/25/17 08:49 Intake and Output: 10/25/17 10/25/17 06:59 18:59 Intake Total 1150 Output Total 303 Balance 847 - Medications Medications: Current Medications Ciprofloxacin (Cipro) 500 mg PO Q12 [facility] PRN Reason: Protocol Stop: 10/26/17 10:31 Folic Acid (Folic Acid) 1 mg PO DAILY [facility] Last Admin: 10/25/17 10:03 Dose: 1 mg Sodium Chloride (Sodium Chloride 0.9%) 1,000 mls @ 100 mls/hr IV .Q10H [facility] Lorazepam (Ativan) 1 mg IVP Q4H PRN PRN Reason: Symptoms of alcohol withdrawl Multivitamins/Minerals (Therapeutic-M Tab) 1 tab PO DAILY [facility] Last Admin: 10/25/17 10:03 Dose: 1 tab Pantoprazole Sodium (Protonix Inj) 40 mg IVP DAILY [facility] Last Admin: 10/25/17 10:03 Dose: 40 mg Thiamine HCl (Vitamin B1 Tab) 100 mg PO DAILY [facility] Last Admin: 10/25/17 10:03 Dose: 100 mg - Labs Labs: 10/25/17 06:30 10/25/17 06:30 PT 13.8 SECONDS (9.4-12.5) H 10/25/17 06:30 INR 1.25 (0.93-1.08) H 10/25/17 06:30 APTT 30.9 Seconds (25.1-36.5) 10/25/17 06:30 - Constitutional Appears: Non-toxic, No Acute Distress, Unkempt - Head Exam Head Exam: ATRAUMATIC, NORMOCEPHALIC - Eye Exam Eye Exam: EOMI, Normal appearance. absent: Scleral icterus - ENT Exam ENT Exam: Mucous Membranes Moist - Neck Exam Neck Exam: Normal Inspection - Respiratory Exam Respiratory Exam: Clear to Ausculation Bilateral, NORMAL BREATHING PATTERN - Cardiovascular Exam Cardiovascular Exam: RRR, +S1, +S2 - GI/Abdominal Exam GI & Abdominal Exam: Soft, Organomegaly (liver 4cm below costal margins). absent: Distended, Firm, Guarding, Rigid, Tenderness, Rebound - Extremities Exam Extremities Exam: absent: Calf Tenderness, Pedal Edema - Neurological Exam Neurological Exam: Alert, Awake, Oriented x3 Additional comments: No asterixis. Mild tremor noted - Psychiatric Exam Psychiatric exam: Normal Affect, Normal Mood - Skin Skin Exam: Dry, Intact, Normal Color Assessment and Plan - Assessment and Plan (Free Text) Assessment: Patient is a 47 year old male with PMHx of alcohol abuse, hypertension, DM, presents with active GIB and markedly elevation ETOH level Plan: 1. Rectal bleeding - Likely 2/2 internal hemorrhoids vs diverticular bleed vs angiodysplasia vs rectal varices vs malignancy - H&H stable since yesterday - Type and screen done - Repeat CBC with daily labs - CT A/P shows pancreatic mass, unchanged since prior exam. No colonic or gastric masses noted. - Plan for abdominal MRI today to further delineate pancreatic mass - Plan for EGD and colonoscopy today per GI - GI on consult, appreciate recs 2. Transminemia - AST:ALT > 2; most likely 2/2 alcoholic liver disease; trended down since yesterday - CT abd/pelv with PO and IV significant for hepatomegaly and steatosis; no CBD dilation noted - Plan abdominal MRI with contrast and MRCP per GI - Prior hepatitis panel in 07/2017 negative - GI on consult, appreciate recs 3. ETOH Abuse - Serum EtOH level elevated in ER; appears to be in the early stages of withdrawal; has not required PRN ativan thus far - [facility] protocol - Ativan 1mg q4 prn withdrawl symptoms - Switch banana bag to PO supplements - Fall and seizure precautions 4. Dysuria, hematuria, and frequency - UA in ER significant for moderate LE, tntc WBC, and trace hematuria; also notable for moderate bacteria and 6-8 epithelial cells, so may be contaminants. UCx ordered, pending - Patient remains symptomatic; has received 3 doses of IV cipro; switch to PO; continue to monitor - Hydrate with IVF and monitor 5. History of HTN - Patient was initially normotensive on admission; has been mildly hypertensive since then - Likely 2/2 withdrawal state and fluid administration - Continue to monitor; consider adding antihypertensive if no improvement after resolution of acute illness 6. Reported h/o DM - Patient has been euglycemic, normal blood sugars since admission. Chart review shows normal HbA1c on several occasions in the past year, and no marked persistent elevation in his blood glucose. Patient is not diabetic GI/DVT Ppx - Protonix and SCD, avoid anticoagulation for GIB Patient seen, evaluated, and discussed with attending <Codie Monsivais - Last Filed: 10/25/17 11:57> Objective - Vital Signs/Intake and Output Vital Signs (last 24 hours): Temp Pulse Resp BP Pulse Ox 99 F 99 H 20 141/91 H 98 10/25/17 08:49 10/25/17 08:49 10/25/17 08:49 10/25/17 08:49 10/25/17 08:49 Intake and Output: 10/25/17 10/25/17 06:59 18:59 Intake Total 1150 Output Total 303 Balance 847 - Medications Medications: Current Medications Ciprofloxacin (Cipro) 500 mg PO Q12 [facility] PRN Reason: Protocol Stop: 10/26/17 10:31 Folic Acid (Folic Acid) 1 mg PO DAILY [facility] Last Admin: 10/25/17 10:03 Dose: 1 mg Sodium Chloride (Sodium Chloride 0.9%) 1,000 mls @ 100 mls/hr IV .Q10H [facility] Lorazepam (Ativan) 1 mg IVP Q4H PRN PRN Reason: Symptoms of alcohol withdrawl Multivitamins/Minerals (Therapeutic-M Tab) 1 tab PO DAILY [facility] Last Admin: 10/25/17 10:03 Dose: 1 tab Pantoprazole Sodium (Protonix Inj) 40 mg IVP DAILY [facility] Last Admin: 10/25/17 10:03 Dose: 40 mg Thiamine HCl (Vitamin B1 Tab) 100 mg PO DAILY [facility] Last Admin: 10/25/17 10:03 Dose: 100 mg - Labs Labs: 10/25/17 06:30 10/25/17 06:30 PT 13.8 SECONDS (9.4-12.5) H 10/25/17 06:30 INR 1.25 (0.93-1.08) H 10/25/17 06:30 APTT 30.9 Seconds (25.1-36.5) 10/25/17 06:30 Attending/Attestation - Attestation I have personally seen and examined this patient.: Yes I have fully participated in the care of the patient.: Yes I have reviewed all pertinent clinical information, including history, physical exam and plan: Yes Notes (Text): 10/25/17 11:56 47 year old male with past medical history of chronic ETOH abuse who presented with complaint of rectal bleeding and alcohol intoxication. He is being followed by GI and plan is for EGD/colonoscopy along with MRCP/MRI abd/pelvis today. Continue with protonix. Will follow up with GI recommendations following above studies. Continue with ativan johnnie/prn for withdrawal symptoms. He was counselled on alcohol abstinence. Will replete and repeat lytes. He is on cipro for UTI. Codie Monsivais MD Hospitalist.
[2017-10-25] MEDS ORDERED: Gadodiamide 287 MG/ML VIAL (15ML) IV ONE (12:47)
[2017-10-25] MEDS ORDERED: Propofol 10 mg/ml Inj (20 ML) ONE (14:18)
[2017-10-25] MEDS ORDERED: Midazolam 2 MG/2 ML VIAL ONE (14:19)
--- NOTE | 2017-10-25 14:43 | MRI ---
PROCEDURE: Magnetic Resonance Cholangiopancreatography MRI of the abdomen with and without contrast HISTORY: Follow-up pancreatic mass COMPARISON: 08/13/2017 MRI. TECHNIQUE: Multiplanar, multisequence MR images of the abdomen were obtained, including heavily T2 weighted MRCP images of the biliary system. Rotating maximum intensity projection images of the biliary system were generated. FINDINGS: MRCP: The common duct is mildly dilated measuring 12 mm in diameter. . No evidence of choledocholithiasis. No intrahepatic biliary ductal dilatation. LIVER: There is enlargement of the caudate lobe of the liver. This finding is typically seen in association with cirrhosis. However there are no other findings suggestive of cirrhosis in the liver. This probably represents a normal variation. GALLBLADDER: Unremarkable. SPLEEN: Unremarkable. PANCREAS: There is a well-circumscribed mass in the tail of the pancreas measuring 26 x 33 mm. On T2 weighted imaging this is mildly hyperintense relative to the darker pancreatic parenchyma. On the fat-suppressed T1 weighted imaging pre and postcontrast the lesion is isodense tends to the pancreas and is not demonstrate enhancement. This could represent a chronic hemorrhagic pancreatic cyst. Alternatively this could represent a cystic mucinous neoplasm. The lesion is slightly larger than on the previous exam where it measured 25 x 30 mm. ADRENALS: Unremarkable. KIDNEYS: Unremarkable. AORTA: No aneurysm. ASCITES: None. OTHER FINDINGS: None. IMPRESSION: Well-circumscribed lesion in the tail of the pancreas showing a slight increase in size. This could represent a cystic mucinous neoplasm. A hemorrhagic cyst is also possible. Continued follow-up is recommended.
[2017-10-25] MEDS: Sodium Chloride 0.9% 1,000 ML IV SCH (17:21)
[2017-10-26] MEDS: Sodium Chloride 0.9% 1,000 ML IV SCH (03:18)
[2017-10-26 08:06] LABS: BASO # 0.04 K/mm3 (0.0-2.0); BASO % 0.6 % (0.0-3.0); EOS # 0.2 (0.0-0.7); EOS % 2.6 % (1.5-5.0); GRAN # 3.61 (1.4-6.5); GRAN % 57.7 % (50.0-68.0); HEMATOCRIT 35.1 % (42.0-52.0); LYMPH # 1.8 (1.2-3.4); LYMPH % 28.6 % (22.0-35.0); MEAN CELL VOLUME 106.4 fl (80.0-105.0); MEAN CORPUSCULAR HEMOGLOBIN 36.1 pg (25.0-35.0); MEAN CORPUSCULAR HGB CONC 33.9 g/dl (31.0-37.0); MEAN PLATELET VOLUME 11.6 fl (7.0-11.0); MONO # 0.7 (0.1-0.6); MONO % 10.5 % (1.0-6.0); RED CELL DISTRIBUTION WIDTH 12.4 % (11.5-14.5); WHITE BLOOD COUNT 6.3 10^3/ul (4.5-11.0)
[2017-10-26 08:26] LABS: ALB/GLOB RATIO 0.9 (1.1-1.8); ALKALINE PHOSPHATASE 269 U/L (38-126); ALT/SGPT 135 U/L (7-56); AST/SGOT 362 U/L (17-59); BILIRUBIN,TOTAL 3.5 mg/dL (0.2-1.3); BLOOD UREA NITROGEN 6 mg/dL (7-21); CALCIUM 10.1 mg/dL (8.4-10.5); CARBON DIOXIDE 24 mmol/L (21-33); CHLORIDE 102 mmol/L (98-107); GFR AFRICAN-AMERICAN > 60; GLUCOSE,RANDOM 116 mg/dL (70-110); MAGNESIUM 1.4 mg/dL (1.7-2.2); POTASSIUM 3.7 mmol/L (3.6-5.0); SODIUM 138 mmol/L (132-148); TOTAL PROTEIN 8.9 g/dL (5.8-8.3)
[2017-10-26] MEDS ORDERED: Magnesium Sulfate 2 GM in Sodium Chloride 0.9% 100 ML IVPB ONE (09:42)
[2017-10-26] MEDS: Multivitamin With Minerals Tab PO SCH (10:02)
--- NOTE | 2017-10-26 13:00 | CP.PCM.PN ---
<MarissaRy - Last Filed: 10/26/17 12:57> Subjective - Date & Time of Evaluation Date of Evaluation: 10/26/17 Time of Evaluation: 07:30 - Subjective Subjective: Ry Ann DO PGY1 - Internal Medicine Progress Note Patient seen and examined at bedside. No events overnight. Patient is s/p EGD, Colonoscopy, MRCP, and abdominal MRI done yesterday. He feels somewhat better today, reports some improvement in his dysuria. He denies any abdominal pain, nausea, vomiting, diarrhea, constipation, chest pain, SOB, headache, fever, chills, cough. Objective - Vital Signs/Intake and Output Vital Signs (last 24 hours): Temp Pulse Resp BP Pulse Ox 98.7 F 86 20 170/84 H 99 10/26/17 06:00 10/26/17 06:00 10/26/17 06:00 10/26/17 06:00 10/26/17 06:00 Intake and Output: 10/26/17 10/26/17 06:59 18:59 Intake Total 1880 Output Total 2350 Balance -470 - Medications Medications: Current Medications Ciprofloxacin (Cipro) 500 mg PO Q12 [facility] PRN Reason: Protocol Stop: 10/27/17 10:01 Folic Acid (Folic Acid) 1 mg PO DAILY [facility] Last Admin: 10/26/17 10:02 Dose: 1 mg Lorazepam (Ativan) 1 mg IVP Q4H PRN PRN Reason: Symptoms of alcohol withdrawl Last Admin: 10/26/17 04:11 Dose: 1 mg Multivitamins/Minerals (Therapeutic-M Tab) 1 tab PO DAILY [facility] Last Admin: 10/26/17 10:02 Dose: 1 tab Pantoprazole Sodium (Protonix Inj) 40 mg IVP DAILY [facility] Last Admin: 10/26/17 10:02 Dose: 40 mg Thiamine HCl (Vitamin B1 Tab) 100 mg PO DAILY [facility] Last Admin: 10/26/17 10:02 Dose: 100 mg - Labs Labs: 10/26/17 07:25 10/26/17 07:25 PT 13.8 SECONDS (9.4-12.5) H 10/25/17 06:30 INR 1.25 (0.93-1.08) H 10/25/17 06:30 APTT 30.9 Seconds (25.1-36.5) 10/25/17 06:30 - Constitutional Appears: Non-toxic, No Acute Distress - Head Exam Head Exam: ATRAUMATIC, NORMOCEPHALIC - Eye Exam Eye Exam: EOMI, Normal appearance. absent: Scleral icterus - ENT Exam ENT Exam: Mucous Membranes Moist - Respiratory Exam Respiratory Exam: Clear to Ausculation Bilateral, NORMAL BREATHING PATTERN - Cardiovascular Exam Cardiovascular Exam: RRR, +S1, +S2 - GI/Abdominal Exam GI & Abdominal Exam: Soft, Normal Bowel Sounds. absent: Tenderness - Extremities Exam Extremities Exam: absent: Calf Tenderness, Pedal Edema - Neurological Exam Neurological Exam: Alert, Awake, Oriented x3 Additional comments: No asterixis. Tremor decreased since yesterday - Psychiatric Exam Psychiatric exam: Normal Affect, Normal Mood - Skin Skin Exam: Dry, Intact, Normal Color Assessment and Plan - Assessment and Plan (Free Text) Assessment: Patient is a 47 year old male with PMHx of alcohol abuse, hypertension, DM, presents with active GIB and markedly elevation ETOH level; now s/p EGD, colonoscopy, MRCP, and abdominal MRI Plan: 1. Rectal bleeding - Likely 2/2 internal hemorrhoids, as seen on colonoscopy - H&H remains stable - Repeat CBC with daily labs - CT A/P shows pancreatic mass, unchanged since prior exam. No colonic or gastric masses noted. - Patient had EGD yesterday which showed gastritis and stage 1 esophageal varices - Patient had colonoscopy yesterday which showed internal hemorrhoids - Abdominal MRI showed the pancreatic mass; cystic neoplasm vs hemorrhagic cyst ; further workup per GI recs - GI on consult, appreciate recs 2. Transminemia - AST:ALT > 2; most likely 2/2 alcoholic liver disease; stable - CT abd/pelv with PO and IV significant for hepatomegaly and steatosis; no CBD dilation noted - MRCP showed dilation of the CBD, without obstruction - Prior hepatitis panel in 07/2017 negative - GI on consult, appreciate recs 3. ETOH Abuse - Appears to be in the early stages of withdrawal; received one dose of ativan early this morning - [facility] protocol - Ativan 1mg q4 prn withdrawl symptoms - Continue PO supplements - Requested PT evaluation - Fall and seizure precautions 4. Dysuria, hematuria, and frequency - UA in ER significant for moderate LE, tntc WBC, and trace hematuria; also notable for moderate bacteria and 6-8 epithelial cells, so may be contaminants. UCx shows pansensitive E coli - Patient remains somewhat symptomatic; continue PO cipro - Hydrate with IVF and monitor 5. History of HTN - Patient was initially normotensive on admission; has been mildly hypertensive since then - Likely 2/2 withdrawal state and fluid administration; will discontinue fluids today and continue to monitor - Continue to monitor; consider adding antihypertensive if no improvement after resolution of acute illness GI/DVT Ppx - Protonix and SCD Patient seen, evaluated, and discussed with attending <Codie Monsivais - Last Filed: 10/26/17 13:48> Objective - Vital Signs/Intake and Output Vital Signs (last 24 hours): Temp Pulse Resp BP Pulse Ox 98.7 F 86 20 170/84 H 99 10/26/17 06:00 10/26/17 06:00 10/26/17 06:00 10/26/17 06:00 10/26/17 06:00 Intake and Output: 10/26/17 10/26/17 06:59 18:59 Intake Total 1880 Output Total 2350 Balance -470 - Medications Medications: Current Medications Ciprofloxacin (Cipro) 500 mg PO Q12 [facility] PRN Reason: Protocol Stop: 10/27/17 10:01 Folic Acid (Folic Acid) 1 mg PO DAILY [facility] Last Admin: 10/26/17 10:02 Dose: 1 mg Lorazepam (Ativan) 1 mg IVP Q4H PRN PRN Reason: Symptoms of alcohol withdrawl Last Admin: 10/26/17 13:09 Dose: 1 mg Multivitamins/Minerals (Therapeutic-M Tab) 1 tab PO DAILY [facility] Last Admin: 10/26/17 10:02 Dose: 1 tab Pantoprazole Sodium (Protonix Inj) 40 mg IVP DAILY [facility] Last Admin: 10/26/17 10:02 Dose: 40 mg Thiamine HCl (Vitamin B1 Tab) 100 mg PO DAILY [facility] Last Admin: 10/26/17 10:02 Dose: 100 mg - Labs Labs: 10/26/17 07:25 10/26/17 07:25 PT 13.8 SECONDS (9.4-12.5) H 10/25/17 06:30 INR 1.25 (0.93-1.08) H 10/25/17 06:30 APTT 30.9 Seconds (25.1-36.5) 10/25/17 06:30 Attending/Attestation - Attestation I have personally seen and examined this patient.: Yes I have fully participated in the care of the patient.: Yes I have reviewed all pertinent clinical information, including history, physical exam and plan: Yes Notes (Text): 10/26/17 13:46 47 year old male with past medical history of chronic ETOH abuse who presented with complaint of rectal bleeding and alcohol intoxication. His hemoglobin remains stable. He is being followed by GI and is s/p EGD/ colonoscopy with findings as above. MRI/MRCP were also reviewed. Will follow up with GI recommendations. Will continue to monitor LFTs closely. Continue with ativan prn for withdrawal symptoms. He was counselled on alcohol abstinence. PT evaluation is requested. Will replete and repeat lytes. He is on cipro for UTI. Codie Monsivais MD Hospitalist.
[2017-10-27 08:12] LABS: BASO # 0.08 K/mm3 (0.0-2.0); BASO % 1.3 % (0.0-3.0); EOS # 0.2 (0.0-0.7); EOS % 2.8 % (1.5-5.0); GRAN # 3.68 (1.4-6.5); GRAN % 57.9 % (50.0-68.0); LYMPH # 1.6 (1.2-3.4); LYMPH % 25.3 % (22.0-35.0); MEAN CELL VOLUME 106.5 fl (80.0-105.0); MEAN CORPUSCULAR HEMOGLOBIN 36.1 pg (25.0-35.0); MEAN CORPUSCULAR HGB CONC 33.9 g/dl (31.0-37.0); MEAN PLATELET VOLUME 11.9 fl (7.0-11.0); MONO # 0.8 (0.1-0.6); MONO % 12.7 % (1.0-6.0); RED CELL DISTRIBUTION WIDTH 12.7 % (11.5-14.5); WHITE BLOOD COUNT 6.4 10^3/ul (4.5-11.0)
[2017-10-27 08:31] LABS: ALKALINE PHOSPHATASE 262 U/L (38-126); ALT/SGPT 145 U/L (7-56); AST/SGOT 264 U/L (17-59); BILIRUBIN,TOTAL 2.9 mg/dL (0.2-1.3); BLOOD UREA NITROGEN 11 mg/dL (7-21); CALCIUM 10.2 mg/dL (8.4-10.5); CARBON DIOXIDE 24 mmol/L (21-33); CHLORIDE 102 mmol/L (98-107); GFR AFRICAN-AMERICAN > 60; GLUCOSE,RANDOM 113 mg/dL (70-110); MAGNESIUM 1.5 mg/dL (1.7-2.2); POTASSIUM 3.8 mmol/L (3.6-5.0); SODIUM 139 mmol/L (132-148)
[2017-10-27] MEDS ORDERED: Magnesium Sulfate 2 GM in Sodium Chloride 0.9% 100 ML IVPB ONE (09:50)
[2017-10-27] MEDS: Multivitamin With Minerals Tab PO SCH (10:03)
--- NOTE | 2017-10-27 11:03 | CP.PCM.PN ---
<Ry Ann - Last Filed: 10/27/17 11:00> Subjective - Date & Time of Evaluation Date of Evaluation: 10/27/17 Time of Evaluation: 07:30 - Subjective Subjective: Ry Ann DO PGY1 - Internal Medicine Progress Note Patient seen and examined at bedside. Patient reports sweating throughout the night. He continue to report some unsteadiness in his gait, though near his baseline; he is able to walk around his room and get to and from the bathroom without any trouble. He continues to feel somewhat better today, reports some improvement in his dysuria. He denies any abdominal pain, nausea, vomiting, diarrhea, constipation, chest pain, SOB, headache, fever, chills, cough. Objective - Vital Signs/Intake and Output Vital Signs (last 24 hours): Temp Pulse Resp BP Pulse Ox 99.4 F 85 20 130/92 H 98 10/26/17 18:41 10/27/17 02:00 10/26/17 17:59 10/26/17 17:59 10/26/17 17:59 Intake and Output: 10/27/17 10/27/17 06:59 18:59 Intake Total 660 Balance 660 - Medications Medications: Current Medications Acetaminophen (Tylenol 325mg Tab) 650 mg PO Q4H PRN PRN Reason: Fever >100.4 F Last Admin: 10/26/17 18:41 Dose: 650 mg Folic Acid (Folic Acid) 1 mg PO DAILY [facility] Last Admin: 10/27/17 10:03 Dose: 1 mg Lorazepam (Ativan) 1 mg IVP Q4H PRN PRN Reason: Symptoms of alcohol withdrawl Last Admin: 10/26/17 13:09 Dose: 1 mg Lorazepam (Ativan) 1 mg IVP Q6H JOHNNIE PRN Reason: Protocol Last Admin: 10/27/17 10:09 Dose: 1 mg Multivitamins/Minerals (Therapeutic-M Tab) 1 tab PO DAILY JOHNNIE Last Admin: 10/27/17 10:03 Dose: 1 tab Pantoprazole Sodium (Protonix Inj) 40 mg IVP DAILY JOHNNIE Last Admin: 10/27/17 10:03 Dose: 40 mg Thiamine HCl (Vitamin B1 Tab) 100 mg PO DAILY JOHNNIE Last Admin: 10/27/17 10:03 Dose: 100 mg - Labs Labs: 10/27/17 07:30 10/27/17 07:30 PT 13.8 SECONDS (9.4-12.5) H 10/25/17 06:30 INR 1.25 (0.93-1.08) H 10/25/17 06:30 APTT 30.9 Seconds (25.1-36.5) 10/25/17 06:30 - Constitutional Appears: Non-toxic, In Acute Distress (mild) - Head Exam Head Exam: ATRAUMATIC, NORMOCEPHALIC - Eye Exam Eye Exam: EOMI, Normal appearance. absent: Scleral icterus - ENT Exam ENT Exam: Mucous Membranes Moist - Neck Exam Neck Exam: Normal Inspection - Respiratory Exam Respiratory Exam: Clear to Ausculation Bilateral, NORMAL BREATHING PATTERN - Cardiovascular Exam Cardiovascular Exam: RRR, +S1, +S2 - GI/Abdominal Exam GI & Abdominal Exam: Soft, Normal Bowel Sounds. absent: Distended, Firm, Guarding, Rigid, Tenderness - Extremities Exam Extremities Exam: absent: Calf Tenderness, Pedal Edema - Neurological Exam Neurological Exam: Alert, Awake, Oriented x3 Neuro motor strength exam: Left Upper Extremity: 5, Right Upper Extremity: 5, Left Lower Extremity: 5, Right Lower Extremity: 5 Additional comments: Fine tremor, slightly worse than yesterday. No asterixis. - Psychiatric Exam Psychiatric exam: Normal Affect, Normal Mood - Skin Skin Exam: Dry, Intact Assessment and Plan - Assessment and Plan (Free Text) Assessment: Patient is a 47 year old male with PMHx of alcohol abuse, hypertension, DM, presents with active GIB and markedly elevation ETOH level; now s/p EGD, colonoscopy, MRCP, and abdominal MRI; active treament for alcohol withdrawal Plan: 1. Rectal bleeding - Likely 2/2 internal hemorrhoids, as seen on colonoscopy - H&H improving - Repeat CBC with daily labs - CT A/P shows pancreatic mass, unchanged since prior exam. No colonic or gastric masses noted. - Patient had EGD 10/25 which showed gastritis and stage 1 esophageal varices - Patient had colonoscopy 10/25 which showed internal hemorrhoids - Abdominal MRI showed the pancreatic mass; cystic neoplasm vs hemorrhagic cyst ; GI recommends outpatient workup - GI on consult, appreciate recs 2. Transminemia - AST:ALT > 2; most likely 2/2 alcoholic liver disease; stable - CT abd/pelv with PO and IV significant for hepatomegaly and steatosis; no CBD dilation noted - MRCP showed dilation of the CBD, without obstruction - Prior hepatitis panel in 07/2017 negative - GI on consult, appreciate recs 3. Alcohol withdrawal - Actively withdrawing from alcohol, fine tremor and diaphoresis noted on exam - [facility] protocol - Ativan 1mg q6 johnnie and q4 prn withdrawl symptoms - Continue PO supplements - Requested PT evaluation - Fall and seizure precautions 4. Dysuria, hematuria, and frequency - UA in ER significant for moderate LE, tntc WBC, and trace hematuria; also notable for moderate bacteria and 6-8 epithelial cells, so may be contaminants. UCx shows pansensitive E coli - Continue PO cipro (d2) for 5-7 days - Hydrate with IVF and monitor 5. History of HTN - Patient was initially normotensive on admission; has been mildly hypertensive since then - Likely 2/2 withdrawal state and fluid administration; Patient now actively withdrawing, will continue to monitor BP - Ordered PRN lopressor for SBP >180 GI/DVT Ppx - Protonix and SCD Patient seen, evaluated, and discussed with attending <Codie Monsivais - Last Filed: 10/27/17 11:39> Objective - Vital Signs/Intake and Output Vital Signs (last 24 hours): Temp Pulse Resp BP Pulse Ox 99.4 F 85 20 130/92 H 98 10/26/17 18:41 10/27/17 02:00 10/26/17 17:59 10/26/17 17:59 10/26/17 17:59 Intake and Output: 10/27/17 10/27/17 06:59 18:59 Intake Total 660 Balance 660 - Medications Medications: Current Medications Acetaminophen (Tylenol 325mg Tab) 650 mg PO Q4H PRN PRN Reason: Fever >100.4 F Last Admin: 10/26/17 18:41 Dose: 650 mg Ciprofloxacin (Cipro) 500 mg PO Q12 JOHNNIE PRN Reason: Protocol Stop: 10/28/17 10:59 Folic Acid (Folic Acid) 1 mg PO DAILY J[facility] Last Admin: 10/27/17 10:03 Dose: 1 mg Lorazepam (Ativan) 1 mg IVP Q4H PRN PRN Reason: Symptoms of alcohol withdrawl Last Admin: 10/26/17 13:09 Dose: 1 mg Lorazepam (Ativan) 1 mg IVP Q6H JOHNNIE PRN Reason: Protocol Last Admin: 10/27/17 10:09 Dose: 1 mg Metoprolol Tartrate (Lopressor) 5 mg IVP Q6H PRN PRN Reason: SBP >180 Multivitamins/Minerals (Therapeutic-M Tab) 1 tab PO DAILY [facility] Last Admin: 10/27/17 10:03 Dose: 1 tab Pantoprazole Sodium (Protonix Inj) 40 mg IVP DAILY [facility] Last Admin: 10/27/17 10:03 Dose: 40 mg Thiamine HCl (Vitamin B1 Tab) 100 mg PO DAILY [facility] Last Admin: 10/27/17 10:03 Dose: 100 mg - Labs Labs: 10/27/17 07:30 10/27/17 07:30 PT 13.8 SECONDS (9.4-12.5) H 10/25/17 06:30 INR 1.25 (0.93-1.08) H 10/25/17 06:30 APTT 30.9 Seconds (25.1-36.5) 10/25/17 06:30 Attending/Attestation - Attestation I have personally seen and examined this patient.: Yes I have fully participated in the care of the patient.: Yes I have reviewed all pertinent clinical information, including history, physical exam and plan: Yes Notes (Text): 10/27/17 11:36 47 year old male with past medical history of chronic ETOH abuse who presented with complaint of rectal bleeding and alcohol intoxication. His hemoglobin remains stable. He was seen by GI and is s/p EGD/colonoscopy which showed grade 1 varices, gastritis and hemorrhoids. He also has transaminitis which is stable. MRI/MRCP were reviewed as above. Will follow up with GI recommendations. Continue with ativan prn for withdrawal symptoms and will add johnnie ativan for active withdrawal symptoms today (diaphoresis/tremor). He was counselled on alcohol abstinence. PT evaluation was requested. Will replete and repeat lytes. He is on cipro for UTI. Codie Monsivais MD Hospitalist.
[2017-10-27] MEDS ORDERED: Metoprolol 1 mg/ml Inj IVP PRN (11:06)
--- NOTE | 2017-10-27 11:56 | CP.PCM.PN ---
Subjective - Date & Time of Evaluation Date of Evaluation: 10/26/17 Time of Evaluation: 16:00 - Subjective Subjective: patient comfortable tolerating the diet No further episodes of bleeding MRI scan was reviewed and discussed with the Dr. Monsivais Objective - Vital Signs/Intake and Output Vital Signs (last 24 hours): Temp Pulse Resp BP Pulse Ox 99.4 F 81 20 130/92 H 98 10/26/17 18:41 10/26/17 18:00 10/26/17 17:59 10/26/17 17:59 10/26/17 17:59 Intake and Output: 10/26/17 10/27/17 18:59 06:59 Intake Total 540 Balance 540 - Medications Medications: Current Medications Acetaminophen (Tylenol 325mg Tab) 650 mg PO Q4H PRN PRN Reason: Fever >100.4 F Last Admin: 10/26/17 18:41 Dose: 650 mg Ciprofloxacin (Cipro) 500 mg PO Q12 VÍCTOR PRN Reason: Protocol Stop: 10/27/17 10:01 Last Admin: 10/26/17 22:19 Dose: 500 mg Folic Acid (Folic Acid) 1 mg PO DAILY [facility] Last Admin: 10/26/17 10:02 Dose: 1 mg Lorazepam (Ativan) 1 mg IVP Q4H PRN PRN Reason: Symptoms of alcohol withdrawl Last Admin: 10/26/17 13:09 Dose: 1 mg Multivitamins/Minerals (Therapeutic-M Tab) 1 tab PO DAILY [facility] Last Admin: 10/26/17 10:02 Dose: 1 tab Pantoprazole Sodium (Protonix Inj) 40 mg IVP DAILY [facility] Last Admin: 10/26/17 10:02 Dose: 40 mg Thiamine HCl (Vitamin B1 Tab) 100 mg PO DAILY [facility] Last Admin: 10/26/17 10:02 Dose: 100 mg - Labs Labs: 10/26/17 07:25 10/26/17 07:25 PT 13.8 SECONDS (9.4-12.5) H 10/25/17 06:30 INR 1.25 (0.93-1.08) H 10/25/17 06:30 APTT 30.9 Seconds (25.1-36.5) 10/25/17 06:30 - Constitutional Appears: Well, Non-toxic, No Acute Distress - Head Exam Head Exam: ATRAUMATIC, NORMOCEPHALIC - Eye Exam Eye Exam: EOMI, PERRL - ENT Exam ENT Exam: Mucous Membranes Moist - Respiratory Exam Respiratory Exam: Clear to Ausculation Bilateral, NORMAL BREATHING PATTERN - Cardiovascular Exam Cardiovascular Exam: REGULAR RHYTHM, +S1. absent: JVD - GI/Abdominal Exam GI & Abdominal Exam: Soft. absent: Tenderness, Hernia, Mass Assessment and Plan - Assessment and Plan (Free Text) Assessment: this 47-year-old patient with a long history of EtOH with his several previous admissions in the hospital admitted this time with the rectal bleeding. Had upper GI endoscopy and colonoscopy done EGD revealed grade 1 esophageal varices his esophagitis and gastritis colonoscopy revealed moderate size internal hemorrhoids. Review of the previous workup also revealed a pancreatic lesion in the tail this admission patient had an MRI of the abdomen which was reviewed suspected lesion in the tail of the pancreas hemorrhagic cyst versus mucinous adenoma with a slight increase in size Discussed with the patient at length regarding the findings and recommendation for EUS guided biopsy Patient is undecided. If he is reluctant. the patient may be followed up in the GI clinic for outpatient evaluation if he is agreeable we will consider EUS guided biopsy on Saturday
--- NOTE | 2017-10-28 01:07 | PN ---
DATE: 10/27/2017 SUBJECTIVE: This patient was seen and evaluated earlier. The patient is tolerating the diet, comfortable. No complaints of any abdominal pain. PHYSICAL EXAMINATION VITAL SIGNS: Temperature is 98.6, pulse 102, and blood pressure 120/86. HEENT: Atraumatic, anicteric. NECK: Supple. HEART: S1, S2 heard. LUNGS: Bilateral air entry present. ABDOMEN: Soft. EXTREMITIES: No cyanosis. No clubbing. LABORATORY DATA: Hemoglobin 12.2, hematocrit 36, WBC 6.4, and platelets 113. BUN 11, creatinine 0.8. LFTs shows slightly downward trend. Total bilirubin is now 2.9. AST 264, ALT 145, alkaline phosphatase 262, and magnesium 1.9. IMPRESSION: This 47-year-old patient with a long history of EtOH abuse, admitted with rectal bleeding and alcohol intoxication. His alcohol level was 333, when he was admitted. The patient had a previous imaging studies reviewed and showed some tail of the pancreas lesion. Repeat MRCP shows mildly dilated common bile duct, however, there were no stones noted. The pancreatic tail lesion appears to be slightly increased in size. RECOMMENDATIONS: 1. Followup of the LFTs. 2. Status post EGD and colonoscopy revealed grade I varices and also hemorrhoids. We would recommend nadolol low-dose. 3. We will discuss with the patient at length regarding further evaluation of pancreatic lesion, the patient is agreeable. We will scheduled for EUS and FNA on Saturday. Thank you very much for allowing me to participate in the care of the patient. Lila Hickey MD
[2017-10-28 06:29] LABS: BASO # 0.1 K/mm3 (0.0-2.0); BASO % 1.5 % (0.0-3.0); EOS # 0.2 (0.0-0.7); EOS % 3.4 % (1.5-5.0); GRAN # 3.62 (1.4-6.5); GRAN % 53.4 % (50.0-68.0); HEMATOCRIT 35.5 % (42.0-52.0); LYMPH # 2.1 (1.2-3.4); LYMPH % 30.5 % (22.0-35.0); MEAN CELL VOLUME 107.9 fl (80.0-105.0); MEAN CORPUSCULAR HEMOGLOBIN 36.5 pg (25.0-35.0); MEAN CORPUSCULAR HGB CONC 33.8 g/dl (31.0-37.0); MEAN PLATELET VOLUME 11.9 fl (7.0-11.0); MONO # 0.8 (0.1-0.6); MONO % 11.2 % (1.0-6.0); RED CELL DISTRIBUTION WIDTH 13.3 % (11.5-14.5); WHITE BLOOD COUNT 6.8 10^3/ul (4.5-11.0)
[2017-10-28 07:07] LABS: ALKALINE PHOSPHATASE 247 U/L (38-126); ALT/SGPT 119 U/L (7-56); AST/SGOT 166 U/L (17-59); BILIRUBIN,TOTAL 2.2 mg/dL (0.2-1.3); BLOOD UREA NITROGEN 16 mg/dL (7-21); CALCIUM 10.1 mg/dL (8.4-10.5); CARBON DIOXIDE 24 mmol/L (21-33); CHLORIDE 101 mmol/L (98-107); GFR AFRICAN-AMERICAN > 60; GLUCOSE,RANDOM 119 mg/dL (70-110); MAGNESIUM 1.5 mg/dL (1.7-2.2); POTASSIUM 3.6 mmol/L (3.6-5.0); SODIUM 139 mmol/L (132-148); TOTAL PROTEIN 8.8 g/dL (5.8-8.3)
[2017-10-28] MEDS ORDERED: Magnesium Sulfate 2 GM in Sodium Chloride 0.9% 100 ML IVPB ONE (07:56)
[2017-10-28] MEDS: Multivitamin With Minerals Tab PO SCH (09:38)
--- NOTE | 2017-10-28 09:43 | CP.PCM.PN ---
<Ry Ann - Last Filed: 10/28/17 13:39> Subjective - Date & Time of Evaluation Date of Evaluation: 10/28/17 Time of Evaluation: 07:30 - Subjective Subjective: Ry Ann DO PGY1 - Internal Medicine Progress Note Patient seen and examined at bedside. No events overnight. Patient reports feeling somewhat better overall, including gradual improvement in dysuria, though still somewhat symptomatic. He denies fevers, chills, diaphoresis, nausea , vomiting, diarrhea, constipation. He is agreeable to have EUS and FNA of pancreatic mass with Dr. Hickey tomorrow. He reports slight improvement in his gait. Objective - Vital Signs/Intake and Output Vital Signs (last 24 hours): Temp Pulse Resp BP Pulse Ox 99 F 84 18 134/91 H 98 10/28/17 08:08 10/28/17 08:08 10/28/17 08:08 10/28/17 08:08 10/28/17 08:08 Intake and Output: 10/28/17 10/28/17 06:59 18:59 Intake Total 540 Balance 540 - Medications Medications: Current Medications Acetaminophen (Tylenol 325mg Tab) 650 mg PO Q4H PRN PRN Reason: Fever >100.4 F Last Admin: 10/26/17 18:41 Dose: 650 mg Ciprofloxacin (Cipro) 500 mg PO Q12 JOHNNIE PRN Reason: Protocol Stop: 10/28/17 10:59 Last Admin: 10/27/17 22:15 Dose: 500 mg Folic Acid (Folic Acid) 1 mg PO DAILY [facility] Last Admin: 10/27/17 10:03 Dose: 1 mg Lorazepam (Ativan) 1 mg IVP Q4H PRN PRN Reason: Symptoms of alcohol withdrawl Last Admin: 10/26/17 13:09 Dose: 1 mg Lorazepam (Ativan) 1 mg IVP Q6H JOHNNIE PRN Reason: Protocol Last Admin: 10/28/17 04:00 Dose: 1 mg Magnesium Oxide (Mag-Ox) 400 mg PO DAILY [facility] Metoprolol Tartrate (Lopressor) 5 mg IVP Q6H PRN PRN Reason: SBP >180 Multivitamins/Minerals (Therapeutic-M Tab) 1 tab PO DAILY [facility] Last Admin: 10/27/17 10:03 Dose: 1 tab Pantoprazole Sodium (Protonix Inj) 40 mg IVP DAILY [facility] Last Admin: 10/27/17 10:03 Dose: 40 mg Thiamine HCl (Vitamin B1 Tab) 100 mg PO DAILY [facility] Last Admin: 10/27/17 10:03 Dose: 100 mg - Labs Labs: 10/28/17 05:30 10/28/17 05:30 PT 13.8 SECONDS (9.4-12.5) H 10/25/17 06:30 INR 1.25 (0.93-1.08) H 10/25/17 06:30 APTT 30.9 Seconds (25.1-36.5) 10/25/17 06:30 - Constitutional Appears: Non-toxic, No Acute Distress - Head Exam Head Exam: ATRAUMATIC, NORMOCEPHALIC - Eye Exam Eye Exam: EOMI, Normal appearance, PERRL - ENT Exam ENT Exam: Mucous Membranes Moist - Neck Exam Neck Exam: Normal Inspection - Respiratory Exam Respiratory Exam: Clear to Ausculation Bilateral, NORMAL BREATHING PATTERN - Cardiovascular Exam Cardiovascular Exam: REGULAR RHYTHM, +S1, +S2 - GI/Abdominal Exam GI & Abdominal Exam: Soft, Normal Bowel Sounds. absent: Distended, Firm, Guarding, Rigid, Tenderness - Extremities Exam Extremities Exam: absent: Calf Tenderness, Pedal Edema - Neurological Exam Neurological Exam: Alert, Awake, Oriented x3 - Psychiatric Exam Psychiatric exam: Normal Affect, Normal Mood - Skin Skin Exam: Dry, Intact Assessment and Plan - Assessment and Plan (Free Text) Assessment: Patient is a 47 year old male with PMHx of alcohol abuse, hypertension, DM, presents with active GIB and markedly elevation ETOH level; now s/p EGD, colonoscopy, MRCP, and abdominal MRI; active treament for alcohol withdrawal Plan: 1. Rectal bleeding - Likely 2/2 internal hemorrhoids, as seen on colonoscopy - H&H improving - Patient had EGD 10/25 which showed gastritis and stage 1 esophageal varices - Patient had colonoscopy 10/25 which showed internal hemorrhoids - GI on consult, appreciate recs 2. Transminemia - AST:ALT > 2; most likely 2/2 alcoholic liver disease; stable - GI on consult, appreciate recs 3. Pancreatic mass - Abdominal MRI showed pancreatic mass, previously visualized on CT; hemorragic cyst vs cystic neoplasm - Patient is agreeable to EUS with FNA, scheduled Saturday per Dr. Hickey 4. Alcohol withdrawal - Withdrawal signs and symptoms appear to be improving - [facility] protocol - Decrease Ativan to 0.5mg q6 johnnie and q4 prn withdrawl symptoms - Continue PO supplements - Fall and seizure precautions 5. Urinary tract infection - UCx shows pansensitive E coli - Continue PO cipro (d3) for 5-7 days - Hydrate with IVF and monitor 6. History of HTN - Patient was initially normotensive on admission; has been mildly hypertensive since then, though improved today - Likely 2/2 withdrawal state and fluid administration - Continue PRN lopressor for SBP >180 GI/DVT Ppx - Protonix and SCD Patient seen, evaluated, and discussed with attending <Priyank Hare - Last Filed: 10/28/17 17:24> Objective - Vital Signs/Intake and Output Vital Signs (last 24 hours): Temp Pulse Resp BP Pulse Ox 99 F 116 H 18 134/91 H 98 10/28/17 08:08 10/28/17 14:00 10/28/17 08:08 10/28/17 08:08 10/28/17 08:08 Intake and Output: 10/28/17 10/28/17 06:59 18:59 Intake Total 540 720 Balance 540 720 - Medications Medications: Current Medications Acetaminophen (Tylenol 325mg Tab) 650 mg PO Q4H PRN PRN Reason: Fever >100.4 F Last Admin: 10/26/17 18:41 Dose: 650 mg Folic Acid (Folic Acid) 1 mg PO DAILY [facility] Last Admin: 10/28/17 09:38 Dose: 1 mg Lorazepam (Ativan) 1 mg IVP Q4H PRN PRN Reason: Symptoms of alcohol withdrawl Last Admin: 10/26/17 13:09 Dose: 1 mg Lorazepam (Ativan) 0.5 mg IVP Q6H JOHNNIE PRN Reason: Protocol Last Admin: 10/28/17 12:10 Dose: 0.5 mg Magnesium Oxide (Mag-Ox) 400 mg PO TID JOHNNIE Last Admin: 10/28/17 13:51 Dose: 400 mg Metoprolol Tartrate (Lopressor) 5 mg IVP Q6H PRN PRN Reason: SBP >180 Multivitamins/Minerals (Therapeutic-M Tab) 1 tab PO DAILY [facility] Last Admin: 10/28/17 09:38 Dose: 1 tab Pantoprazole Sodium (Protonix Ec Tab) 40 mg PO DAILY [facility] Thiamine HCl (Vitamin B1 Tab) 100 mg PO DAILY [facility] Last Admin: 10/28/17 09:38 Dose: 100 mg - Labs Labs: 10/28/17 05:30 10/28/17 05:30 PT 13.8 SECONDS (9.4-12.5) H 10/25/17 06:30 INR 1.25 (0.93-1.08) H 10/25/17 06:30 APTT 30.9 Seconds (25.1-36.5) 10/25/17 06:30 Attending/Attestation - Attestation I have personally seen and examined this patient.: Yes I have fully participated in the care of the patient.: Yes I have reviewed all pertinent clinical information, including history, physical exam and plan: Yes Notes (Text): 10/28/17 17:21 Patient was seen and examined with medical practice administrator. Agreed with resident assessment and plan. 47 year old male with past medical history of chronic ETOH abuse who presented with complaint of rectal bleeding and alcohol intoxication. His hemoglobin remains stable. He was seen by GI and is s/p EGD/colonoscopy which showed grade 1 varices, gastritis and hemorrhoids. .MRCP showed finding suggestive of mass on tail of Pancreas.Patient is scheduled for EUS tomorrow. Management plan was discussed in detail with patient Education was provided.
[2017-10-28] MEDS ORDERED: Magnesium Oxide 400 mg Tab UD PO SCH (10:00)
[2017-10-28] MEDS: Magnesium Oxide 400 mg Tab UD PO SCH ×2 (13:51→18:08)
--- NOTE | 2017-10-29 00:16 | PN ---
DATE: 10/28/2017 SUBJECTIVE: This patient was seen and evaluated earlier today. The patient is comfortable, and not in any acute distress. PHYSICAL EXAMINATION: VITAL SIGNS: Temperature is 99.2, pulse is 94, blood pressure is 114/82. HEENT: Atraumatic. Anicteric. NECK: Supple. HEART: S1, S2 heard. LUNGS: Bilateral air entry present. ABDOMEN: Soft. There is no tenderness. EXTREMITIES: No edema. No cyanosis. LABORATORY DATA: Hemoglobin 12, hematocrit 35.5, WBC 6.8, platelets 148. BUN 16, creatinine 0.8, LFTs improving, total bilirubin has come down to 2.2, AST 166, ALT 119, alkaline phosphatase 247. IMPRESSION AND PLAN: 1. This 47-year-old patient is admitted, breathing per rectum and alcohol intoxication. Endoscopy revealed a grade 1 varices and gastritis, but colonoscopy revealed only hemorrhoids. 2. The patient has pancreatic lesion in the tail. adenoma versus hemorrhagic cyst. Appears to be slightly increased in size compared to the previous studies. The patient is agreeable for ultrasound-guided fine needle aspiration, and the patient is scheduled for the procedure tomorrow. Lila Hickey MD
[2017-10-29 07:38] LABS: BASO # 0.1 K/mm3 (0.0-2.0); BASO % 1.4 % (0.0-3.0); EOS # 0.2 (0.0-0.7); EOS % 3.3 % (1.5-5.0); GRAN # 3.98 (1.4-6.5); GRAN % 55.3 % (50.0-68.0); HEMATOCRIT 35.9 % (42.0-52.0); LYMPH % 27.6 % (22.0-35.0); MEAN CELL VOLUME 106.8 fl (80.0-105.0); MEAN CORPUSCULAR HEMOGLOBIN 37.2 pg (25.0-35.0); MEAN CORPUSCULAR HGB CONC 34.8 g/dl (31.0-37.0); MEAN PLATELET VOLUME 10.9 fl (7.0-11.0); MONO # 0.9 (0.1-0.6); MONO % 12.4 % (1.0-6.0); RED CELL DISTRIBUTION WIDTH 13.3 % (11.5-14.5); WHITE BLOOD COUNT 7.2 10^3/ul (4.5-11.0)
[2017-10-29 07:53] LABS: ALB/GLOB RATIO 0.9 (1.1-1.8); ALKALINE PHOSPHATASE 232 U/L (38-126); ALT/SGPT 107 U/L (7-56); AST/SGOT 123 U/L (17-59); BILIRUBIN,TOTAL 1.9 mg/dL (0.2-1.3); BLOOD UREA NITROGEN 16 mg/dL (7-21); CALCIUM 10.4 mg/dL (8.4-10.5); CARBON DIOXIDE 24 mmol/L (21-33); CHLORIDE 102 mmol/L (98-107); GFR AFRICAN-AMERICAN > 60; GLUCOSE,RANDOM 121 mg/dL (70-110); MAGNESIUM 1.7 mg/dL (1.7-2.2); SODIUM 140 mmol/L (132-148); TOTAL PROTEIN 9.5 g/dL (5.8-8.3)
[2017-10-29] MEDS: Magnesium Oxide 400 mg Tab UD PO SCH ×3 (09:39→18:17)
[2017-10-29] MEDS: Pantoprazole 40 mg EC Tab PO SCH (09:39)
[2017-10-29] MEDS: Multivitamin With Minerals Tab PO SCH (09:39)
[2017-10-29] MEDS ORDERED: cefTRIAXone (Rocephin) 1 gm Inj ONE (15:25)
[2017-10-29] MEDS ORDERED: Propofol 10 mg/ml Inj (20 ML) ONE ×2 (15:26→15:28)
[2017-10-29] MEDS ORDERED: Midazolam 2 MG/2 ML VIAL ONE ×2 (15:30→15:39)
[2017-10-29] MEDS ORDERED: cefTRIAXone (Rocephin) 1 gm Inj IVPB ONE (15:37)
--- NOTE | 2017-10-29 16:12 | CP.PCM.PN ---
Subjective - Date & Time of Evaluation Date of Evaluation: 10/29/17 Time of Evaluation: 15:40 - Subjective Subjective: Anesthesia note after induction, in the operating room, the patient had what appeared to be a seizure; prior to this event, the patient received ceftriaxone, lidocaine, propofol, midazolam and fentanyl; Patient vital signs post oxygen supplementation were wnl, and the pateint was given an extra 4 mg of midazolam for a total of 6 mg. Case has been postponed in the light of this acute event until further workup/optimization as needed. Objective - Vital Signs/Intake and Output Vital Signs (last 24 hours): Temp Pulse Resp BP Pulse Ox 98.4 F 85 16 142/80 97 10/29/17 14:30 10/29/17 14:30 10/29/17 14:30 10/29/17 14:30 10/29/17 14:30 Intake and Output: 10/29/17 10/29/17 06:59 18:59 Intake Total 720 840 Balance 720 840 - Medications Medications: Current Medications Acetaminophen (Tylenol 325mg Tab) 650 mg PO Q4H PRN PRN Reason: Fever >100.4 F Last Admin: 10/26/17 18:41 Dose: 650 mg Ciprofloxacin (Cipro) 500 mg PO Q12 [facility] PRN Reason: Protocol Stop: 10/30/17 10:42 Last Admin: 10/29/17 11:17 Dose: 500 mg Folic Acid (Folic Acid) 1 mg PO DAILY [facility] Last Admin: 10/29/17 09:39 Dose: 1 mg Sodium Chloride (Sodium Chloride 0.9%) 1,000 mls @ 100 mls/hr IV .Q10H [facility] Magnesium Oxide (Mag-Ox) 400 mg PO TID [facility] Last Admin: 10/29/17 14:00 Dose: 400 mg Metoprolol Tartrate (Lopressor) 5 mg IVP Q6H PRN PRN Reason: SBP >180 Multivitamins/Minerals (Therapeutic-M Tab) 1 tab PO DAILY [facility] Last Admin: 10/29/17 09:39 Dose: 1 tab Pantoprazole Sodium (Protonix Ec Tab) 40 mg PO DAILY [facility] Last Admin: 10/29/17 09:39 Dose: 40 mg Thiamine HCl (Vitamin B1 Tab) 100 mg PO DAILY [facility] Last Admin: 10/29/17 09:39 Dose: 100 mg - Labs Labs: 10/29/17 06:50 10/29/17 06:50 PT 13.8 SECONDS (9.4-12.5) H 10/25/17 06:30 INR 1.25 (0.93-1.08) H 10/25/17 06:30 APTT 30.9 Seconds (25.1-36.5) 10/25/17 06:30
[2017-10-29] MEDS ORDERED: Magnesium Sulfate 2 GM in Sodium Chloride 0.9% 100 ML IVPB ONE (17:17)
--- NOTE | 2017-10-29 17:23 | CP.PCM.PN ---
<Ry Ann - Last Filed: 10/29/17 17:17> Subjective - Date & Time of Evaluation Date of Evaluation: 10/29/17 Time of Evaluation: 07:30 - Subjective Subjective: Ry Ann DO PGY1 - Internal Medicine Progress Note Patient seen and examined at bedside. No events overnight. Patient has no new complaints. He is scheduled for EUS with FNA of pancreatic mass today. Patient still complaining of mild intermittent dysuria. He denies fevers, chills, diaphoresis, nausea, vomiting, diarrhea, constipation. Objective - Vital Signs/Intake and Output Vital Signs (last 24 hours): Temp Pulse Resp BP Pulse Ox 97.7 F 82 16 99/60 L 99 10/29/17 15:52 10/29/17 15:52 10/29/17 15:52 10/29/17 15:52 10/29/17 15:52 Intake and Output: 10/29/17 10/29/17 06:59 18:59 Intake Total 720 840 Balance 720 840 - Medications Medications: Current Medications Acetaminophen (Tylenol 325mg Tab) 650 mg PO Q4H PRN PRN Reason: Fever >100.4 F Last Admin: 10/26/17 18:41 Dose: 650 mg Ciprofloxacin (Cipro) 500 mg PO Q12 [facility] PRN Reason: Protocol Stop: 10/30/17 10:42 Last Admin: 10/29/17 11:17 Dose: 500 mg Folic Acid (Folic Acid) 1 mg PO DAILY [facility] Last Admin: 10/29/17 09:39 Dose: 1 mg Sodium Chloride (Sodium Chloride 0.9%) 1,000 mls @ 100 mls/hr IV .Q10H [facility] Magnesium Sulfate 2 gm/ Sodium (Chloride) 104 mls @ 102 mls/hr IVPB ONCE ONE Stop: 10/29/17 18:18 Lorazepam (Ativan) 2 mg IVP Q6H PRN; Protocol PRN Reason: Seizure activity Magnesium Oxide (Mag-Ox) 400 mg PO TID [facility] Last Admin: 10/29/17 14:00 Dose: 400 mg Metoprolol Tartrate (Lopressor) 5 mg IVP Q6H PRN PRN Reason: SBP >180 Multivitamins/Minerals (Therapeutic-M Tab) 1 tab PO DAILY [facility] Last Admin: 10/29/17 09:39 Dose: 1 tab Pantoprazole Sodium (Protonix Ec Tab) 40 mg PO DAILY [facility] Last Admin: 10/29/17 09:39 Dose: 40 mg Thiamine HCl (Vitamin B1 Tab) 100 mg PO DAILY [facility] Last Admin: 10/29/17 09:39 Dose: 100 mg - Labs Labs: 10/29/17 06:50 10/29/17 06:50 PT 13.8 SECONDS (9.4-12.5) H 10/25/17 06:30 INR 1.25 (0.93-1.08) H 10/25/17 06:30 APTT 30.9 Seconds (25.1-36.5) 10/25/17 06:30 - Constitutional Appears: Non-toxic, No Acute Distress - Head Exam Head Exam: ATRAUMATIC, NORMOCEPHALIC - Eye Exam Eye Exam: EOMI, Normal appearance, PERRL - ENT Exam ENT Exam: Mucous Membranes Moist - Neck Exam Neck Exam: Normal Inspection - Respiratory Exam Respiratory Exam: Clear to Ausculation Bilateral, NORMAL BREATHING PATTERN - Cardiovascular Exam Cardiovascular Exam: REGULAR RHYTHM, +S1, +S2 - GI/Abdominal Exam GI & Abdominal Exam: Soft, Normal Bowel Sounds. absent: Tenderness - Extremities Exam Extremities Exam: absent: Calf Tenderness, Pedal Edema - Neurological Exam Neurological Exam: Alert, Awake, Oriented x3 Additional comments: No asterixis. No [id number] tremor - Psychiatric Exam Psychiatric exam: Normal Affect, Normal Mood - Skin Skin Exam: Dry, Intact, Normal Color Additional comments: No diaphoresis Assessment and Plan - Assessment and Plan (Free Text) Assessment: Patient is a 47 year old male with PMHx of alcohol abuse, hypertension, DM, presents with active GIB and markedly elevation ETOH level; now s/p EGD, colonoscopy, MRCP, and abdominal MRI; Pending EUS with FNA of pancreatic mass today Plan: 1. Pancreatic mass - Abdominal MRI showed pancreatic mass, previously visualized on CT; hemorragic cyst vs cystic neoplasm - Patient is scheduled for EUS with FNA of pancreatic mass today 2. Transminemia - AST:ALT > 2; most likely 2/2 alcoholic liver disease; stable - GI on consult, appreciate recs 3. Rectal bleeding - resolved - Patient initially came in complaining of rectal bleeding, now resolved - Likely 2/2 internal hemorrhoids, as seen on colonoscopy - H&H stable - Patient had EGD 10/25 which showed gastritis and stage 1 esophageal varices - Patient had colonoscopy 10/25 which showed internal hemorrhoids - GI on consult, appreciate re 4. Alcohol withdrawal - Patient no longer appears to be actively withdrawing - CIWA assessment - Discontinue ativan - Continue PO supplements - Fall and seizure precautions 5. Urinary tract infection - UCx shows pansensitive E coli - Continue PO cipro (d4) for 5-7 days - Hydrate with IVF and monitor 6. History of HTN - BP now stable - Prior episodes of HTN during hospitalization likely 2/2 withdrawal state and fluid administration - Continue PRN lopressor for SBP >180 GI/DVT Ppx - Protonix and SCD Patient seen, evaluated, and discussed with attending <Priyank aHre - Last Filed: 10/30/17 07:59> Objective - Vital Signs/Intake and Output Vital Signs (last 24 hours): Temp Pulse Resp BP Pulse Ox 97.7 F 77 16 123/78 99 10/29/17 15:52 10/30/17 06:00 10/29/17 16:52 10/29/17 16:52 10/29/17 16:52 Intake and Output: 10/30/17 10/30/17 06:59 18:59 Intake Total 300 240 Output Total 275 Balance 300 -35 - Medications Medications: Current Medications Acetaminophen (Tylenol 325mg Tab) 650 mg PO Q4H PRN PRN Reason: Fever >100.4 F Last Admin: 10/26/17 18:41 Dose: 650 mg Ciprofloxacin (Cipro) 500 mg PO Q12 [facility] PRN Reason: Protocol Stop: 10/30/17 10:42 Last Admin: 10/29/17 21:29 Dose: 500 mg Folic Acid (Folic Acid) 1 mg PO DAILY [facility] Last Admin: 10/29/17 09:39 Dose: 1 mg Sodium Chloride (Sodium Chloride 0.9%) 1,000 mls @ 100 mls/hr IV .Q10H [facility] Last Admin: 10/30/17 05:55 Dose: Not Given Lorazepam (Ativan) 2 mg IVP Q6H PRN; Protocol PRN Reason: Seizure activity Magnesium Oxide (Mag-Ox) 400 mg PO TID [facility] Last Admin: 10/29/17 18:17 Dose: Not Given Metoprolol Tartrate (Lopressor) 5 mg IVP Q6H PRN PRN Reason: SBP >180 Multivitamins/Minerals (Therapeutic-M Tab) 1 tab PO DAILY [facility] Last Admin: 10/29/17 09:39 Dose: 1 tab Pantoprazole Sodium (Protonix Ec Tab) 40 mg PO DAILY [facility] Last Admin: 10/29/17 09:39 Dose: 40 mg Thiamine HCl (Vitamin B1 Tab) 100 mg PO DAILY [facility] Last Admin: 10/29/17 09:39 Dose: 100 mg - Labs Labs: 10/30/17 05:40 10/30/17 05:40 PT 13.8 SECONDS (9.4-12.5) H 10/25/17 06:30 INR 1.25 (0.93-1.08) H 10/25/17 06:30 APTT 30.9 Seconds (25.1-36.5) 10/25/17 06:30 Attending/Attestation - Attestation I have personally seen and examined this patient.: Yes I have fully participated in the care of the patient.: Yes I have reviewed all pertinent clinical information, including history, physical exam and plan: Yes Notes (Text): 10/30/17 07:55 Patient was seen and examined with medical office assistant. Agreed with resident assessment and plan. 47 year old male with past medical history of chronic ETOH abuse who presented with complaint of rectal bleeding and alcohol intoxication. Patient is s/p EGD/colonoscopy which showed grade 1 varices, gastritis and hemorrhoids. .MRCP showed finding suggestive of mass on tail of Pancreas.Patient had episode of seizure in OR during induction of anesthesia, seizure is likely due to anesthesia medication.Patient was not in alcohol withdrawal at the time .CT head is negative.We will monitor.We will also get Neurology evaluation. Management plan was discussed in detail with patient Education was provided.
--- NOTE | 2017-10-29 17:51 | CT ---
PROCEDURE: CT HEAD WITHOUT CONTRAST. HISTORY: seizure COMPARISON: 09/27/2017, 10/23/2017. TECHNIQUE: Axial computed tomography images were obtained through the head/brain without intravenous contrast. Radiation dose: Total exam DLP = 759.00 mGy-cm. This CT exam was performed using one or more of the following dose reduction techniques: Automated exposure control, adjustment of the mA and/or kV according to patient size, and/or use of iterative reconstruction technique. FINDINGS: HEMORRHAGE: No intracranial hemorrhage. BRAIN: No mass effect or edema. No atrophy or chronic microvascular ischemic changes. VENTRICLES: Unremarkable. No hydrocephalus. CALVARIUM: Unremarkable. PARANASAL SINUSES: Unremarkable as visualized. No significant inflammatory changes. MASTOID AIR CELLS: Unremarkable as visualized. No inflammatory changes. OTHER FINDINGS: None. IMPRESSION: No acute intracranial abnormalities. No significant findings to account for the clinical presentation. No significant interval change compared to the prior examination(s).
[2017-10-29] MEDS: Sodium Chloride 0.9% 1,000 ML IV SCH (21:29)
[2017-10-30] MEDS: Sodium Chloride 0.9% 1,000 ML IV SCH (05:55)
[2017-10-30 06:23] LABS: BASO # 0.13 K/mm3 (0.0-2.0); EOS # 0.2 (0.0-0.7); EOS % 3.2 % (1.5-5.0); GRAN # 3.29 (1.4-6.5); GRAN % 49.6 % (50.0-68.0); HEMATOCRIT 35.3 % (42.0-52.0); LYMPH # 2.1 (1.2-3.4); MEAN CORPUSCULAR HEMOGLOBIN 36.4 pg (25.0-35.0); MEAN CORPUSCULAR HGB CONC 33.4 g/dl (31.0-37.0); MEAN PLATELET VOLUME 11.8 fl (7.0-11.0); MONO # 0.9 (0.1-0.6); MONO % 14.2 % (1.0-6.0); RED CELL DISTRIBUTION WIDTH 13.6 % (11.5-14.5); WHITE BLOOD COUNT 6.6 10^3/ul (4.5-11.0)
[2017-10-30 06:47] LABS: ALKALINE PHOSPHATASE 210 U/L (38-126); ALT/SGPT 95 U/L (7-56); AST/SGOT 132 U/L (17-59); BILIRUBIN,TOTAL 1.4 mg/dL (0.2-1.3); BLOOD UREA NITROGEN 13 mg/dL (7-21); CALCIUM 9.7 mg/dL (8.4-10.5); CARBON DIOXIDE 28 mmol/L (21-33); CHLORIDE 101 mmol/L (98-107); GFR AFRICAN-AMERICAN > 60; GLUCOSE,RANDOM 108 mg/dL (70-110); MAGNESIUM 1.9 mg/dL (1.7-2.2); SODIUM 138 mmol/L (132-148); TOTAL PROTEIN 8.8 g/dL (5.8-8.3)
[2017-10-30 06:50] LABS: ALB/GLOB RATIO 0.9 (1.1-1.8)
[2017-10-30] MEDS: Pantoprazole 40 mg EC Tab PO SCH (09:43)
[2017-10-30] MEDS: Magnesium Oxide 400 mg Tab UD PO SCH ×3 (09:43→17:51)
[2017-10-30] MEDS: Multivitamin With Minerals Tab PO SCH (09:43)
--- NOTE | 2017-10-30 09:59 | PN ---
DATE: 10/29/2017 SUBJECTIVE: This patient was comfortable. Patient was evaluated pre-procedure, comfortable, not in acute distress. PHYSICAL EXAMINATION: VITAL SIGNS: Temperature was afebrile. Blood pressure 142/88, O2 saturation is 97%. HEENT: Atraumatic. Anicteric. NECK: Supple. HEART: S1, S2 heard. LUNGS: Bilateral air entry present. ABDOMEN: Soft. There is no mass palpable. No tenderness. EXTREMITIES: No cyanosis. No clubbing. LABORATORY DATA: Hemoglobin 12.5, hematocrit 35.9, WBC 7.2, and platelets 163. Chemistry is . LFTs continued to improve. IMPRESSION: This is a 47-year-old patient with a long history of ethyl alcohol abuse, admitted with high alcohol intoxication with a high alcohol level. Patient also got bleeding per rectum. Subsequently, he had an endoscopy and a colonoscopy done. Esophagogastroduodenoscopy revealed a grade I esophageal varices gastritis. Colonoscopy revealed internal hemorrhoids, moderate-sized hemorrhoids. Review of the imaging studies also revealed pancreatic tail lesion. Subsequently MRI was also reviewed, thought to have a slight increase in size, hemorrhagic cyst versus mucinous cystadenoma. Patient is scheduled for esophagogastroduodenoscopy, endoscopic ultrasound, and fine-needle aspiration evaluation today. Informed consent was obtained. Patient had transient seizure activity following administration of anesthesia. Patient has developed some respiratory distress. The decision was taken by the anesthesiologist not to proceed with the procedure. Patient discussed. Patient will be rescheduled for the endoscopic ultrasound after further optimization. We discussed with also the hospitalist. We will also request the anesthesiologist to reevaluate the patient tomorrow. Thank you very much for allowing us to participate in the care of the patient. Lila Hickey MD
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
[2017-10-30] MEDS ORDERED: Lidocaine 1% Inj (20ml) ONE ×2 (13:38→14:34)
[2017-10-30] MEDS ORDERED: Etomidate 20 mg/10ml Inj IV ONE ×5 (13:38→14:43)
[2017-10-30] MEDS ORDERED: Midazolam 2 MG/2 ML VIAL ONE ×2 (13:38→14:34)
--- NOTE | 2017-10-30 13:50 | CP.PCM.PN ---
<MarissaOwenameena - Last Filed: 10/30/17 13:46> Subjective - Date & Time of Evaluation Date of Evaluation: 10/30/17 Time of Evaluation: 07:30 - Subjective Subjective: Ry Ann DO PGY1 - Internal Medicine Progress Note Patient seen and examined at bedside. Yesterday, patient had a seizure while being induced for anaesthesia for his EUS; lasted for 15 seconds and stopped; procedure was postponed. STAT head CT was done, and was negative. Patient has not had any seizure like activity since that initial episode. He does not recall events surrounding the incident, but now has no particular complaints. He denies headache, dizziness, confusion, memory loss, weakness, numbness, parasthesias. He also denies any fevers, chills, nausea, vomiting, diarrhea, constipation, abdominal pain, CP, SOB, cough. His dysuria has finally resolved. Objective - Vital Signs/Intake and Output Vital Signs (last 24 hours): Temp Pulse Resp BP Pulse Ox 98.8 F 72 18 163/99 H 99 10/30/17 13:20 10/30/17 13:20 10/30/17 13:20 10/30/17 13:20 10/30/17 13:20 Intake and Output: 10/30/17 10/30/17 06:59 18:59 Intake Total 300 240 Output Total 275 Balance 300 -35 - Medications Medications: Current Medications Acetaminophen (Tylenol 325mg Tab) 650 mg PO Q4H PRN PRN Reason: Fever >100.4 F Last Admin: 10/26/17 18:41 Dose: 650 mg Ciprofloxacin (Cipro) 500 mg PO Q12 [facility] PRN Reason: Protocol Stop: 10/31/17 11:10 Folic Acid (Folic Acid) 1 mg PO DAILY [facility] Last Admin: 10/30/17 09:43 Dose: 1 mg Sodium Chloride (Sodium Chloride 0.9%) 1,000 mls @ 100 mls/hr IV .Q10H [facility] Last Admin: 10/30/17 05:55 Dose: Not Given Lorazepam (Ativan) 2 mg IVP Q6H PRN; Protocol PRN Reason: Seizure activity Magnesium Oxide (Mag-Ox) 400 mg PO TID [facility] Last Admin: 10/30/17 09:43 Dose: 400 mg Metoprolol Tartrate (Lopressor) 5 mg IVP Q6H PRN PRN Reason: SBP >180 Multivitamins/Minerals (Therapeutic-M Tab) 1 tab PO DAILY [facility] Last Admin: 10/30/17 09:43 Dose: 1 tab Pantoprazole Sodium (Protonix Ec Tab) 40 mg PO DAILY [facility] Last Admin: 10/30/17 09:43 Dose: 40 mg Thiamine HCl (Vitamin B1 Tab) 100 mg PO DAILY [facility] Last Admin: 10/30/17 09:43 Dose: 100 mg - Labs Labs: 10/30/17 05:40 10/30/17 05:40 PT 13.8 SECONDS (9.4-12.5) H 10/25/17 06:30 INR 1.25 (0.93-1.08) H 10/25/17 06:30 APTT 30.9 Seconds (25.1-36.5) 10/25/17 06:30 - Constitutional Appears: Non-toxic, No Acute Distress - Head Exam Head Exam: ATRAUMATIC, NORMOCEPHALIC - Eye Exam Eye Exam: EOMI, Normal appearance. absent: Scleral icterus - ENT Exam ENT Exam: Mucous Membranes Moist - Neck Exam Neck Exam: Normal Inspection - Respiratory Exam Respiratory Exam: Clear to Ausculation Bilateral, NORMAL BREATHING PATTERN - Cardiovascular Exam Cardiovascular Exam: REGULAR RHYTHM, +S1, +S2 - GI/Abdominal Exam GI & Abdominal Exam: Soft, Normal Bowel Sounds. absent: Distended, Firm, Guarding, Rigid, Tenderness - Extremities Exam Extremities Exam: absent: Calf Tenderness, Pedal Edema - Neurological Exam Neurological Exam: Alert, Awake, CN II-XII Intact, Oriented x3 Neuro motor strength exam: Left Upper Extremity: 5, Right Upper Extremity: 5, Left Lower Extremity: 5, Right Lower Extremity: 5 Additional comments: No asterixis. No palpable tremor on [id number] exam, but he has a fine tremor in B/L UE when asked to extend his arms for the exam, unchanged since his admission. - Psychiatric Exam Psychiatric exam: Flat Affect, Normal Mood - Skin Skin Exam: Dry, Intact Assessment and Plan - Assessment and Plan (Free Text) Assessment: Patient is a 47 year old male with PMHx of alcohol abuse, hypertension, DM, presents with active GIB and markedly elevation ETOH level; now s/p EGD, colonoscopy, MRCP, and abdominal MRI; Pending EUS with FNA of pancreatic mass today Plan: 1. Pancreatic mass - Abdominal MRI showed pancreatic mass, previously visualized on CT; hemorragic cyst vs cystic neoplasm - Patient is again scheduled for EUS with FNA of pancreatic mass today 2. Seizure - Patient had episode of seizure in OR during induction of anesthesia, during which he recieved ceftriaxone, lidocaine, propofol, midazolam and fentanyl - Stat head CT negative - Seizure most likely 2/2 reduced seizure threshold caused by the anaesthetics in chronic alcoholic who very recently was in withdrawal and likely already has low seizure threshold - Patient has not had any seizure like activity since - Ordered ativan PRN for seizure like activity - Consulted neurology; appreciate recs 3. Transminemia - AST:ALT > 2; most likely 2/2 alcoholic liver disease; stable - GI on consult, appreciate recs 4. Rectal bleeding - resolved - Patient initially came in complaining of rectal bleeding, now resolved - Likely 2/2 internal hemorrhoids, as seen on colonoscopy - H&H stable - Patient had EGD 10/25 which showed gastritis and stage 1 esophageal varices - Patient had colonoscopy 10/25 which showed internal hemorrhoids - GI on consult, appreciate re 5. Alcohol withdrawal - Patient no longer appears to be actively withdrawing - CIWA assessment - Discontinue ativan - Continue PO supplements - Fall and seizure precautions 6. Urinary tract infection - UCx shows pansensitive E coli - Patietn no longer symptomatic - Continue PO cipro (d5) for 5-7 days GI/DVT Ppx - Protonix and SCD Patient seen, evaluated, and discussed with attending <Priyank Hare - Last Filed: 10/30/17 14:31> Objective - Vital Signs/Intake and Output Vital Signs (last 24 hours): Temp Pulse Resp BP Pulse Ox 98.8 F 75 17 140/93 H 99 10/30/17 13:35 10/30/17 13:35 10/30/17 13:35 10/30/17 13:35 10/30/17 13:35 Intake and Output: 10/30/17 10/30/17 06:59 18:59 Intake Total 300 240 Output Total 275 Balance 300 -35 - Medications Medications: Current Medications Acetaminophen (Tylenol 325mg Tab) 650 mg PO Q4H PRN PRN Reason: Fever >100.4 F Last Admin: 10/26/17 18:41 Dose: 650 mg Ciprofloxacin (Cipro) 500 mg PO Q12 [facility] PRN Reason: Protocol Stop: 10/31/17 11:10 Folic Acid (Folic Acid) 1 mg PO DAILY [facility] Last Admin: 10/30/17 09:43 Dose: 1 mg Sodium Chloride (Sodium Chloride 0.9%) 1,000 mls @ 100 mls/hr IV .Q10H [facility] Last Admin: 10/30/17 05:55 Dose: Not Given Lorazepam (Ativan) 2 mg IVP Q6H PRN; Protocol PRN Reason: Seizure activity Magnesium Oxide (Mag-Ox) 400 mg PO TID [facility] Last Admin: 10/30/17 09:43 Dose: 400 mg Metoprolol Tartrate (Lopressor) 5 mg IVP Q6H PRN PRN Reason: SBP >180 Multivitamins/Minerals (Therapeutic-M Tab) 1 tab PO DAILY [facility] Last Admin: 10/30/17 09:43 Dose: 1 tab Pantoprazole Sodium (Protonix Ec Tab) 40 mg PO DAILY [facility] Last Admin: 10/30/17 09:43 Dose: 40 mg Thiamine HCl (Vitamin B1 Tab) 100 mg PO DAILY [facility] Last Admin: 10/30/17 09:43 Dose: 100 mg - Labs Labs: 10/30/17 05:40 10/30/17 05:40 PT 13.8 SECONDS (9.4-12.5) H 10/25/17 06:30 INR 1.25 (0.93-1.08) H 10/25/17 06:30 APTT 30.9 Seconds (25.1-36.5) 10/25/17 06:30 Attending/Attestation - Attestation I have personally seen and examined this patient.: Yes I have fully participated in the care of the patient.: Yes I have reviewed all pertinent clinical information, including history, physical exam and plan: Yes Notes (Text): 10/30/17 14:30 Patient was seen and examined with hospitalist medical director. Agreed with resident assessment and plan. Management plan was discussed in detail with patient Education was provided.
[2017-10-30] MEDS ORDERED: cefTRIAXone (Rocephin) 1 gm Inj ONE ×2 (13:59→14:03)
[2017-10-30] MEDS ORDERED: Sodium Chloride 0.9% 1,000 ML IV SCH (15:30)
[2017-10-30] MEDS: Dextrose 5%/0.45% NS 1,000 ML IV SCH (17:48)
[2017-10-31] MEDS: Dextrose 5%/0.45% NS 1,000 ML IV SCH (05:41)
[2017-10-31 06:24] LABS: BASO # 0.11 K/mm3 (0.0-2.0); BASO % 1.8 % (0.0-3.0); EOS # 0.2 (0.0-0.7); GRAN # 2.7 (1.4-6.5); GRAN % 45.3 % (50.0-68.0); HEMATOCRIT 35.1 % (42.0-52.0); LYMPH # 2.1 (1.2-3.4); LYMPH % 35.7 % (22.0-35.0); MEAN CELL VOLUME 108.7 fl (80.0-105.0); MEAN CORPUSCULAR HEMOGLOBIN 36.2 pg (25.0-35.0); MEAN CORPUSCULAR HGB CONC 33.3 g/dl (31.0-37.0); MEAN PLATELET VOLUME 11.4 fl (7.0-11.0); MONO # 0.8 (0.1-0.6); MONO % 13.2 % (1.0-6.0); RED CELL DISTRIBUTION WIDTH 13.3 % (11.5-14.5)
[2017-10-31 06:50] LABS: ALB/GLOB RATIO 0.9 (1.1-1.8); ALKALINE PHOSPHATASE 182 U/L (38-126); ALT/SGPT 91 U/L (7-56); AST/SGOT 101 U/L (17-59); BILIRUBIN,TOTAL 1.7 mg/dL (0.2-1.3); BLOOD UREA NITROGEN 7 mg/dL (7-21); CALCIUM 9.7 mg/dL (8.4-10.5); CARBON DIOXIDE 29 mmol/L (21-33); CHLORIDE 102 mmol/L (98-107); GFR AFRICAN-AMERICAN > 60; GLUCOSE,RANDOM 101 mg/dL (70-110); MAGNESIUM 1.5 mg/dL (1.7-2.2); POTASSIUM 3.7 mmol/L (3.6-5.0); SODIUM 137 mmol/L (132-148)
[2017-10-31] MEDS ORDERED: Magnesium Sulfate 1 gm in D5W 1 GM/100 ML BAG IVPB ONE (07:51)
[2017-10-31 08:02] LABS: AMYLASE 68 U/L (35-125); LIPASE 106 U/L (23-300)
[2017-10-31] MEDS: Pantoprazole 40 mg EC Tab PO SCH (09:32)
[2017-10-31] MEDS: Multivitamin With Minerals Tab PO SCH (09:33)
[2017-10-31] MEDS: Magnesium Oxide 400 mg Tab UD PO SCH ×3 (09:33→13:20)
[2017-10-31 09:56] VITALS: BP 131/87; RESP 20; TEMP 98.9; O2SAT 98
[2017-10-31] MEDS ORDERED: Influenza Vaccine 60 mcg/0.5 mL SYR (4YR UP) IM ONE (11:56)
--- NOTE | 2017-10-31 14:10 | CP.PCM.DIS ---
<Ry Ann - Last Filed: 10/31/17 14:20> Provider - Provider Date of Admission: 10/23/17 13:36 Attending physician: Priyank Hare MD Primary care physician: Kalpesh Mortensen MD Consults: GI: Ruperto Neuro: Lauren Time Spent in preparation of Discharge (in minutes): 45 Diagnosis - Discharge Diagnosis (1) Seizure Status: Acute (2) UTI (urinary tract infection) Status: Acute (3) Pancreatic mass Status: Acute (4) Gastrointestinal bleeding Status: Acute (5) Alcohol abuse Status: Chronic Priority: Medium (6) Elevated LFTs Status: Chronic (7) Gastritis Status: Chronic Priority: Medium Hospital Course - Lab Results Lab Results: Micro Results 10/23/17 20:12 Urine,Clean Catch Urine Culture - Final Escherichia Coli Most Recent Lab Values WBC 6.0 10^3/ul (4.5-11.0) 10/31/17 05:30 RBC 3.23 10^6/uL (3.5-6.1) L 10/31/17 05:30 Hgb 11.7 g/dL (14.0-18.0) L 10/31/17 05:30 Hct 35.1 % (42.0-52.0) L 10/31/17 05:30 MCV 108.7 fl (80.0-105.0) H 10/31/17 05:30 MCH 36.2 pg (25.0-35.0) H 10/31/17 05:30 MCHC 33.3 g/dl (31.0-37.0) 10/31/17 05:30 RDW 13.3 % (11.5-14.5) 10/31/17 05:30 Plt Count 212 10^3/uL (120.0-450.0) 10/31/17 05:30 Manual Plt Count 85 K/mm3 (120-450) L 10/25/17 07:30 MPV 11.4 fl (7.0-11.0) H 10/31/17 05:30 Gran % 45.3 % (50.0-68.0) L 10/31/17 05:30 Lymph % (Auto) 35.7 % (22.0-35.0) H 10/31/17 05:30 [place] % (Auto) 13.2 % (1.0-6.0) H 10/31/17 05:30 Eos % (Auto) 4.0 % (1.5-5.0) 10/31/17 05:30 Baso % (Auto) 1.8 % (0.0-3.0) 10/31/17 05:30 Gran # 2.70 (1.4-6.5) 10/31/17 05:30 Lymph # 2.1 (1.2-3.4) 10/31/17 05:30 [place] # 0.8 (0.1-0.6) H 10/31/17 05:30 Eos # 0.2 (0.0-0.7) 10/31/17 05:30 Baso # 0.11 K/mm3 (0.0-2.0) 10/31/17 05:30 PT 13.8 SECONDS (9.4-12.5) H 10/25/17 06:30 INR 1.25 (0.93-1.08) H 10/25/17 06:30 APTT 30.9 Seconds (25.1-36.5) 10/25/17 06:30 Sodium 137 mmol/L (132-148) 10/31/17 05:30 Potassium 3.7 mmol/L (3.6-5.0) 10/31/17 05:30 Chloride 102 mmol/L (98-107) 10/31/17 05:30 Carbon Dioxide 29 mmol/L (21-33) 10/31/17 05:30 Anion Gap 10 (10-20) 10/31/17 05:30 BUN 7 mg/dL (7-21) 10/31/17 05:30 Creatinine 0.8 mg/dl (0.8-1.5) 10/31/17 05:30 Est GFR ( Amer) > 60 10/31/17 05:30 Est GFR (Non-Af Amer) > 60 10/31/17 05:30 Random Glucose 101 mg/dL (70-110) 10/31/17 05:30 Calcium 9.7 mg/dL (8.4-10.5) 10/31/17 05:30 Phosphorus 3.0 mg/dL (2.5-4.5) 10/24/17 05:40 Magnesium 1.5 mg/dL (1.7-2.2) L 10/31/17 05:30 Total Bilirubin 1.7 mg/dL (0.2-1.3) H 10/31/17 05:30 AST 101 U/L (17-59) H D 10/31/17 05:30 ALT 91 U/L (7-56) H 10/31/17 05:30 Alkaline Phosphatase 182 U/L (38-126) H 10/31/17 05:30 Total Protein 8.0 g/dL (5.8-8.3) 10/31/17 05:30 Albumin 3.9 g/dL (3.0-4.8) 10/31/17 05:30 Globulin 4.1 gm/dL 10/31/17 05:30 Albumin/Globulin Ratio 0.9 (1.1-1.8) L 10/31/17 05:30 Amylase 68 U/L (35-125) 10/31/17 05:30 Lipase 106 U/L (23-300) 10/31/17 05:30 Vitamin B12 681 pg/mL (239-931) 10/24/17 11:06 Folate > 20.0 ng/mL 10/24/17 11:06 Urine Color Yellow (YELLOW) 10/23/17 15:20 Urine Appearance Sl cloudy (CLEAR) 10/23/17 15:20 Urine pH 6.0 (4.7-8.0) 10/23/17 15:20 Ur Specific [place] <= 1.005 (1.005-1.035) 10/23/17 15:20 Urine Protein Trace mg/dL (<30 mg/dL) H 10/23/17 15:20 Urine Glucose (UA) Negative mg/dL (NEGATIVE) 10/23/17 15:20 Urine Ketones Negative mg/dL (NEGATIVE) 10/23/17 15:20 Urine Blood Trace-intact (NEGATIVE) H 10/23/17 15:20 Urine Nitrate Negative (NEGATIVE) 10/23/17 15:20 Urine Bilirubin Negative (NEGATIVE) 10/23/17 15:20 Urine Urobilinogen 1.0 E.U./dL (<1 E.U./dL) H 10/23/17 15:20 Ur Leukocyte Esterase Moderate Ty/uL (NEGATIVE) H 10/23/17 15:20 Urine RBC 2 - 5 /hpf (0-2) 10/23/17 15:20 Urine WBC Tntc /hpf (0-6) 10/23/17 15:20 Ur Epithelial Cells 6 - 8 /hpf (0-5) 10/23/17 15:20 Urine Bacteria Mod (NEG) 10/23/17 15:20 Stool Occult Blood Positive (NEGATIVE) H 10/30/17 11:45 Urine Opiates Screen Negative (NEGATIVE) 10/23/17 15:20 Urine Methadone Screen Negative (NEGATIVE) 10/23/17 15:20 Ur Barbiturates Screen Negative (NEGATIVE) 10/23/17 15:20 Ur Phencyclidine Scrn Negative (NEGATIVE) 10/23/17 15:20 Ur Amphetamines Screen Negative (NEGATIVE) 10/23/17 15:20 U Benzodiazepines Scrn Negative (NEGATIVE) 10/23/17 15:20 U Oth Cocaine Metabols Negative (NEGATIVE) 10/23/17 15:20 U Cannabinoids Screen Negative (NEGATIVE) 10/23/17 15:20 Alcohol, Quantitative 333 mg/dL (0-10) H* 10/23/17 11:35 Blood Type A POSITIVE 10/23/17 12:55 Antibody Screen Negative 10/23/17 12:55 BBK History Checked Patient has bt 10/23/17 12:55 - Hospital Course Hospital Course: 47 year old male with PMHx of alcohol abuse who initially presented with rectal bleeding, and was noted to have a markedly elevated EtOH level. During his hospitalization, he underwent EGD which showed gastritis and grade I esophageal varices, colonoscopy which showed internal hemorrhoids, MRCP which showed no biliary obstruction, abdominal MRI which showed a pancreatic mass, and EUS with FNA of the pancreas with biopsy results pending. His hospitalization was complicated by a seizure, which occured during induction of anasthesia for one of his procedures, deemed most likely secondary to withdrawal. The patient also had two head CT's the first was because of a reported fall with associated head trauma, and the second was after the seizure, both of which we negative. During his hospitalization, he was also treated for a symptomatic UTI and for alcohol withdrawal. Today, the patient feels well overall, and denies any chest pain, SOB, cough, abdominal pain, nausea, vomiting, diarrhea, constipation, hematochezia, melena, hemoptysis, hematemesis, dysuria, hematuria, fevers, chills, headache, confusion , focal weakness/numbness. Importance of alcohol abstinence was again stressed. He was given prescriptions for several nutritional supplements, as well as a PPI , and was instructed to make a follow up appointment regarding the results of his biopsy. All questions were answered to his satisfaction, and he was discharged to home. Discharge Exam - Head Exam Head Exam: ATRAUMATIC, NORMAL INSPECTION, NORMOCEPHALIC - Eye Exam Eye Exam: EOMI, Normal appearance, PERRL Pupil Exam: NORMAL ACCOMODATION - ENT Exam ENT Exam: Mucous Membranes Moist - Neck Exam Neck exam: Normal Inspection - Respiratory Exam Respiratory Exam: Clear to PA & Lateral, NORMAL BREATHING PATTERN - Cardiovascular Exam Cardiovascular Exam: RRR, +S1, +S2 - GI/Abdominal Exam GI & Abdominal Exam: Normal Bowel Sounds, Organomegaly. absent: Distended, Firm , Guarding, Soft, Tenderness - Extremities Exam Extremities exam: normal inspection - Neurological Exam Neurological exam: Alert, CN II-XII Intact, Oriented x3 Additional comments: No asterixis. No tremor - Psychiatric Exam Psychiatric exam: Normal Affect, Normal Mood - Skin Skin Exam: Dry, Intact, Normal Color Discharge Plan - Discharge Medications Prescriptions: Magnesium Oxide [Mag-Ox] 400 mg PO TID #90 tab Multimineral/Multivitamin [Therapeutic-M Tab] 1 tab PO DAILY #30 tab Omeprazole 20 mg PO DAILY #30 capsule. Thiamine [Vitamin B1 Tab] 100 mg PO DAILY #30 tab Ursodiol [Actigall] 300 mg PO BID #30 cap - Follow Up Plan Condition: STABLE Disposition: HOME/ ROUTINE Instructions: Pancreatitis (DC), Abuse of Alcohol (GEN) Additional Instructions: 1. Avoid drinking alcohol altogether; If you continue drinking, you will have worsening of your preexisting liver disease, esophageal varices, and chronic pancreatitis, among other possible outcomes as discussed 2. Continue to take the multivitamine, thiamine, folate, and magnesium oxide, as prescribed 3. Start omeprazole 20mg once daily, 30-60 minutes before your first meal of the day; to promote healing of your stomach 4. Increase the fiber and water in your diet, to reduce the incidence of bleeding from your internal hemorrhoids 5. Follow up with the GI clinic at [facility] next week for the results of your biopsy, and further workup or treatment if indicated 6. Follow up with your primary care doctor within one week 7. For any new or worsening concerns, contact your PCP immediately, or return to the ER Referrals: [facility] [Outside] - 7 Days (Follow up with GI for history of alcoholism and pancreatic mass/cyst) Kalpesh Mortensen MD [Primary Care Provider] - <Priyank Hare - Last Filed: 10/31/17 14:52> Provider - Provider Date of Admission: 10/23/17 13:36 Attending physician: Priyank Hare MD Primary care physician: Kalpesh Mortensen MD Hospital Course - Lab Results Lab Results: Micro Results 10/23/17 20:12 Urine,Clean Catch Urine Culture - Final Escherichia Coli Most Recent Lab Values WBC 6.0 10^3/ul (4.5-11.0) 10/31/17 05:30 RBC 3.23 10^6/uL (3.5-6.1) L 10/31/17 05:30 Hgb 11.7 g/dL (14.0-18.0) L 10/31/17 05:30 Hct 35.1 % (42.0-52.0) L 10/31/17 05:30 MCV 108.7 fl (80.0-105.0) H 10/31/17 05:30 MCH 36.2 pg (25.0-35.0) H 10/31/17 05:30 MCHC 33.3 g/dl (31.0-37.0) 10/31/17 05:30 RDW 13.3 % (11.5-14.5) 10/31/17 05:30 Plt Count 212 10^3/uL (120.0-450.0) 10/31/17 05:30 Manual Plt Count 85 K/mm3 (120-450) L 10/25/17 07:30 MPV 11.4 fl (7.0-11.0) H 10/31/17 05:30 Gran % 45.3 % (50.0-68.0) L 10/31/17 05:30 Lymph % (Auto) 35.7 % (22.0-35.0) H 10/31/17 05:30 [place] % (Auto) 13.2 % (1.0-6.0) H 10/31/17 05:30 Eos % (Auto) 4.0 % (1.5-5.0) 10/31/17 05:30 Baso % (Auto) 1.8 % (0.0-3.0) 10/31/17 05:30 Gran # 2.70 (1.4-6.5) 10/31/17 05:30 Lymph # 2.1 (1.2-3.4) 10/31/17 05:30 [place] # 0.8 (0.1-0.6) H 10/31/17 05:30 Eos # 0.2 (0.0-0.7) 10/31/17 05:30 Baso # 0.11 K/mm3 (0.0-2.0) 10/31/17 05:30 PT 13.8 SECONDS (9.4-12.5) H 10/25/17 06:30 INR 1.25 (0.93-1.08) H 10/25/17 06:30 APTT 30.9 Seconds (25.1-36.5) 10/25/17 06:30 Sodium 137 mmol/L (132-148) 10/31/17 05:30 Potassium 3.7 mmol/L (3.6-5.0) 10/31/17 05:30 Chloride 102 mmol/L (98-107) 10/31/17 05:30 Carbon Dioxide 29 mmol/L (21-33) 10/31/17 05:30 Anion Gap 10 (10-20) 10/31/17 05:30 BUN 7 mg/dL (7-21) 10/31/17 05:30 Creatinine 0.8 mg/dl (0.8-1.5) 10/31/17 05:30 Est GFR ( Amer) > 60 10/31/17 05:30 Est GFR (Non-Af Amer) > 60 10/31/17 05:30 Random Glucose 101 mg/dL (70-110) 10/31/17 05:30 Calcium 9.7 mg/dL (8.4-10.5) 10/31/17 05:30 Phosphorus 3.0 mg/dL (2.5-4.5) 10/24/17 05:40 Magnesium 1.5 mg/dL (1.7-2.2) L 10/31/17 05:30 Total Bilirubin 1.7 mg/dL (0.2-1.3) H 10/31/17 05:30 AST 101 U/L (17-59) H D 10/31/17 05:30 ALT 91 U/L (7-56) H 10/31/17 05:30 Alkaline Phosphatase 182 U/L (38-126) H 10/31/17 05:30 Total Protein 8.0 g/dL (5.8-8.3) 10/31/17 05:30 Albumin 3.9 g/dL (3.0-4.8) 10/31/17 05:30 Globulin 4.1 gm/dL 10/31/17 05:30 Albumin/Globulin Ratio 0.9 (1.1-1.8) L 10/31/17 05:30 Amylase 68 U/L (35-125) 10/31/17 05:30 Lipase 106 U/L (23-300) 10/31/17 05:30 Vitamin B12 681 pg/mL (239-931) 10/24/17 11:06 Folate > 20.0 ng/mL 10/24/17 11:06 Urine Color Yellow (YELLOW) 10/23/17 15:20 Urine Appearance Sl cloudy (CLEAR) 10/23/17 15:20 Urine pH 6.0 (4.7-8.0) 10/23/17 15:20 Ur Specific [place] <= 1.005 (1.005-1.035) 10/23/17 15:20 Urine Protein Trace mg/dL (<30 mg/dL) H 10/23/17 15:20 Urine Glucose (UA) Negative mg/dL (NEGATIVE) 10/23/17 15:20 Urine Ketones Negative mg/dL (NEGATIVE) 10/23/17 15:20 Urine Blood Trace-intact (NEGATIVE) H 10/23/17 15:20 Urine Nitrate Negative (NEGATIVE) 10/23/17 15:20 Urine Bilirubin Negative (NEGATIVE) 10/23/17 15:20 Urine Urobilinogen 1.0 E.U./dL (<1 E.U./dL) H 10/23/17 15:20 Ur Leukocyte Esterase Moderate Ty/uL (NEGATIVE) H 10/23/17 15:20 Urine RBC 2 - 5 /hpf (0-2) 10/23/17 15:20 Urine WBC Tntc /hpf (0-6) 10/23/17 15:20 Ur Epithelial Cells 6 - 8 /hpf (0-5) 10/23/17 15:20 Urine Bacteria Mod (NEG) 10/23/17 15:20 Stool Occult Blood Positive (NEGATIVE) H 10/30/17 11:45 Urine Opiates Screen Negative (NEGATIVE) 10/23/17 15:20 Urine Methadone Screen Negative (NEGATIVE) 10/23/17 15:20 Ur Barbiturates Screen Negative (NEGATIVE) 10/23/17 15:20 Ur Phencyclidine Scrn Negative (NEGATIVE) 10/23/17 15:20 Ur Amphetamines Screen Negative (NEGATIVE) 10/23/17 15:20 U Benzodiazepines Scrn Negative (NEGATIVE) 10/23/17 15:20 U Oth Cocaine Metabols Negative (NEGATIVE) 10/23/17 15:20 U Cannabinoids Screen Negative (NEGATIVE) 10/23/17 15:20 Alcohol, Quantitative 333 mg/dL (0-10) H* 10/23/17 11:35 Blood Type A POSITIVE 10/23/17 12:55 Antibody Screen Negative 10/23/17 12:55 BBK History Checked Patient has bt 10/23/17 12:55 Attending/Attestation - Attestation I have personally seen and examined this patient.: Yes I have fully participated in the care of the patient.: Yes I have reviewed all pertinent clinical information, including history, physical exam and plan: Yes Notes (Text): 10/31/17 14:49 Patient was seen and examined with medical i d sales. Agreed with resident assessment and plan. 47 year old male with past medical history of chronic ETOH abuse who presented with complaint of rectal bleeding and alcohol intoxication. Patient is s/p EGD/colonoscopy which showed grade 1 varices, gastritis and hemorrhoids.Hemoglobin remain stable. .MRCP showed finding suggestive of mass on tail of Pancreas.Patient had episode of seizure in OR during induction of anesthesia, seizure is likely due to anesthesia medication.Patient was not in alcohol withdrawal at the time .CT head is negative. Patient underwent EUS and biopsy of Pancreatic cyst yesterday, the results are pending at the time of discharge.Patient will follow up with GI clinic at [facility] to follow up the results.This was discussed in detail with him. The issue of ongoing alcohol abuse was also discussed in detail with him. Prognosis is guarded due to ongoing alcohol abuse and non compliance. Management plan was discussed in detail with patient Education was provided.
[2017-10-31 15:18] VITALS: PULSE 86
--- NOTE | 2017-10-31 16:46 | CP.PCM.PN ---
Subjective - Date & Time of Evaluation Date of Evaluation: 10/31/17 Time of Evaluation: 10:00 - Subjective Subjective: S&E at bedside , chart reviewed. No new complaints, tolererating oral intake. No overt Gi bleeding reported. Had EUs yesterday. S/p FNA of pancreatic tail mass. Dilated CBD 9mm, no GB stone, minimal sludge. Objective - Vital Signs/Intake and Output Vital Signs (last 24 hours): Temp Pulse Resp BP Pulse Ox 98.9 F 86 20 131/87 98 10/31/17 06:00 10/31/17 10:00 10/31/17 06:00 10/31/17 06:00 10/31/17 06:00 Intake and Output: 10/31/17 10/31/17 06:59 18:59 Intake Total 0 600 Balance 0 600 - Medications Medications: Current Medications Acetaminophen (Tylenol 325mg Tab) 650 mg PO Q4H PRN PRN Reason: Fever >100.4 F Last Admin: 10/26/17 18:41 Dose: 650 mg Ciprofloxacin (Cipro) 500 mg PO Q12 [facility] PRN Reason: Protocol Stop: 11/01/17 09:10 Folic Acid (Folic Acid) 1 mg PO DAILY [facility] Last Admin: 10/31/17 09:33 Dose: 1 mg Lorazepam (Ativan) 2 mg IVP Q6H PRN; Protocol PRN Reason: Seizure activity Magnesium Oxide (Mag-Ox) 400 mg PO TID [facility] Last Admin: 10/31/17 13:20 Dose: 400 mg Metoprolol Tartrate (Lopressor) 5 mg IVP Q6H PRN PRN Reason: SBP >180 Multivitamins/Minerals (Therapeutic-M Tab) 1 tab PO DAILY [facility] Last Admin: 10/31/17 09:33 Dose: 1 tab Pantoprazole Sodium (Protonix Ec Tab) 40 mg PO DAILY [facility] Last Admin: 10/31/17 09:32 Dose: 40 mg Thiamine HCl (Vitamin B1 Tab) 100 mg PO DAILY [facility] Last Admin: 10/31/17 09:33 Dose: 100 mg Ursodiol (Actigall) 300 mg PO BID [facility] Last Admin: 10/31/17 11:01 Dose: 300 mg - Labs Labs: 10/31/17 05:30 10/31/17 05:30 PT 13.8 SECONDS (9.4-12.5) H 10/25/17 06:30 INR 1.25 (0.93-1.08) H 10/25/17 06:30 APTT 30.9 Seconds (25.1-36.5) 10/25/17 06:30 - Constitutional Appears: No Acute Distress - Head Exam Head Exam: NORMOCEPHALIC - Eye Exam Eye Exam: Normal appearance. absent: Scleral icterus - ENT Exam ENT Exam: Mucous Membranes Moist - Respiratory Exam Respiratory Exam: NORMAL BREATHING PATTERN. absent: Respiratory Distress - Cardiovascular Exam Cardiovascular Exam: +S1, +S2 - GI/Abdominal Exam GI & Abdominal Exam: Soft, Normal Bowel Sounds. absent: Guarding, Tenderness, Rebound - Extremities Exam Extremities Exam: absent: Pedal Edema - Neurological Exam Neurological Exam: Alert, Awake, Oriented x3 Assessment and Plan - Assessment and Plan (Free Text) Assessment: ASSESSMENT: s/p GI Bleed,s/p egd/colon: esophageal varices grade I, gastritis/hemorrhoids Chronic Alcohol Use HTN DM UTI Chronic Dilated CBD, s/p EUS, dldated 9 mm, no gb stone, sludge Pancreatic Tail Mass s/p EUS w/ FNA PLAN: rec low fat diet, seen by wharfinger chief Gi prophylaxsis FU BX/FNA FU medicine/GI clinic, discussed w/ patient alcohol cessation recommend Actigall 300 mg BID monitor LFT, improving Seen and discussed w/ Dr. Hickey.
== END 2017-10-31 17:31 | disposition home or self-care (01) | DRG 468 ==
LOC: ED 10:41 → ERH 13:36 → 3RNO 17:10
PROVIDERS: ADMIT Hospitalist; ATTEND Internal Medicine
PROC: 0DJD8ZZ Inspection of Lower Intestinal Tract, Via Natural or Artificial Opening Endoscopic (ICD-10-PCS; 2017-10-25)
PROC: 0DJ08ZZ Inspection of Upper Intestinal Tract, Via Natural or Artificial Opening Endoscopic (ICD-10-PCS; principal; 2017-10-25 14:45)
PROC: 0F9G8ZZ Drainage of Pancreas, Via Natural or Artificial Opening Endoscopic (ICD-10-PCS; 2017-10-30 14:00)
DX: K92.2 Gastrointestinal hemorrhage, unspecified (principal); R56.9 Unspecified convulsions; S09.90XA Unspecified injury of head, initial encounter; K83.8 Other specified diseases of biliary tract; N39.0 Urinary tract infection, site not specified; E11.9 Type 2 diabetes mellitus without complications; B96.20 Unspecified Escherichia coli [E. coli] as the cause of diseases classified elsewhere; F10.239 Alcohol dependence with withdrawal, unspecified; F14.90 Cocaine use, unspecified, uncomplicated; J44.9 Chronic obstructive pulmonary disease, unspecified; W19.XXXA Unspecified fall, initial encounter; K86.9 Disease of pancreas, unspecified; F17.210 Nicotine dependence, cigarettes, uncomplicated; F31.9 Bipolar disorder, unspecified; I10 Essential (primary) hypertension; I85.00 Esophageal varices without bleeding; K20.9 Esophagitis, unspecified; K29.70 Gastritis, unspecified, without bleeding; K59.00 Constipation, unspecified; K64.8 Other hemorrhoids; Y90.8 Blood alcohol level of 240 mg/100 ml or more; Z87.01 Personal history of pneumonia (recurrent); Z91.19 Patient's noncompliance with other medical treatment and regimen; K70.9 Alcoholic liver disease, unspecified; R31.9 Hematuria, unspecified

== ENCOUNTER 2017-11-03 20:39 | Emergency (ER) | payer MEDICAID ==
[2017-11-03 20:46] VITALS: BMI 23.8
[2017-11-03 20:55] VITALS: TEMP 98.8
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
[2017-11-04 06:35] VITALS: BP 128/70; PULSE 95; RESP 16; O2SAT 100
== END 2017-11-04 06:36 | disposition home or self-care (01) ==
LOC: ED 20:39
DX: F10.10 Alcohol abuse, uncomplicated (principal); Y90.9 Presence of alcohol in blood, level not specified

== ENCOUNTER 2017-11-04 18:21 | Emergency (ER) | payer MEDICAID ==
[2017-11-04 18:27] VITALS: BMI 32.2
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
[2017-11-05 01:39] VITALS: RESP 16
[2017-11-05 06:00] VITALS: BP 118/72; PULSE 76; TEMP 97.9; O2SAT 99
== END 2017-11-05 06:39 | disposition home or self-care (01) ==
LOC: ED 18:21
DX: F10.10 Alcohol abuse, uncomplicated (principal); Y90.9 Presence of alcohol in blood, level not specified

== ENCOUNTER 2017-11-05 17:37 | Emergency (ER) | payer MEDICAID ==
[2017-11-05 17:56] VITALS: BMI 23.4
[2017-11-05 18:23] VITALS: BP 138/85; PULSE 90; RESP 22; TEMP 99.3; O2SAT 100
== END 2017-11-05 18:45 | disposition left against medical advice (07) ==
LOC: ED 17:37
DX: Z02.89 Encounter for other administrative examinations (principal); F10.10 Alcohol abuse, uncomplicated

== ENCOUNTER 2017-11-05 21:49 | Emergency (ER) | payer MEDICAID ==
[2017-11-05 22:16] VITALS: TEMP 98.1; BMI 24.7
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
[2017-11-06 05:30] VITALS: BP 112/69; PULSE 82; RESP 20; O2SAT 96
== END 2017-11-06 05:15 | disposition home or self-care (01) ==
LOC: ED 21:49
DX: F10.10 Alcohol abuse, uncomplicated (principal); Y90.9 Presence of alcohol in blood, level not specified

== ENCOUNTER 2017-11-06 10:08 | Emergency (ER) | payer MEDICAID ==
[2017-11-06 10:09] VITALS: BMI 23.4
[2017-11-06 10:45] VITALS: BP 135/78; PULSE 91; RESP 17; O2SAT 98
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
== END 2017-11-06 19:25 | disposition home or self-care (01) ==
LOC: ED 10:08
DX: F10.10 Alcohol abuse, uncomplicated (principal); Y90.9 Presence of alcohol in blood, level not specified

== ENCOUNTER 2017-11-06 22:46 | Emergency (ER) | payer MEDICAID ==
[2017-11-06 22:46] VITALS: BMI 23.4
[2017-11-06 22:49] VITALS: BP 122/76; PULSE 76; RESP 18; TEMP 98.2; O2SAT 99
== END 2017-11-06 23:02 | disposition left against medical advice (07) ==
LOC: ED 22:46
DX: Z02.89 Encounter for other administrative examinations (principal)

== ENCOUNTER 2017-11-07 17:49 | Emergency (ER) | payer MEDICAID ==
[2017-11-07 17:50] VITALS: BMI 23.4
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
[2017-11-08 00:07] VITALS: BP 118/80; PULSE 80; RESP 15; TEMP 98.5; O2SAT 100
== END 2017-11-07 23:40 | disposition left against medical advice (07) ==
LOC: ED 17:49
DX: F10.129 Alcohol abuse with intoxication, unspecified (principal); I10 Essential (primary) hypertension; Z91.19 Patient's noncompliance with other medical treatment and regimen

== ENCOUNTER 2017-11-08 21:00 | Emergency (ER) | payer MEDICAID ==
[2017-11-08 21:00] VITALS: BMI 23.4
[2017-11-08 21:04] VITALS: BP 124/72; PULSE 76; RESP 18; TEMP 98.1; O2SAT 99
== END 2017-11-08 22:08 | disposition left against medical advice (07) ==
LOC: ED 21:00
DX: Z02.89 Encounter for other administrative examinations (principal); Z59.0 Homelessness

== ENCOUNTER 2017-11-09 20:25 | Emergency (ER) | payer MEDICAID ==
[2017-11-09 20:30] VITALS: BMI 25.3
== END 2017-11-09 20:30 | disposition left against medical advice (07) ==
LOC: ED 20:25
DX: Z02.89 Encounter for other administrative examinations (principal); Z00.00 Encounter for general adult medical examination without abnormal findings

== ENCOUNTER 2017-11-10 21:18 | Emergency (ER) | payer MEDICAID ==
[2017-11-10 21:19] VITALS: BMI 25.3
[2017-11-10 21:44] VITALS: TEMP 97.9
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
[2017-11-11 05:59] VITALS: BP 119/72; PULSE 82; RESP 18; O2SAT 97
== END 2017-11-11 05:59 | disposition home or self-care (01) ==
LOC: ED 21:18
DX: F10.10 Alcohol abuse, uncomplicated (principal); I10 Essential (primary) hypertension; J44.9 Chronic obstructive pulmonary disease, unspecified

== ENCOUNTER 2017-11-26 16:41 | Emergency (ER) | payer MEDICAID ==
[2017-11-26 16:42] VITALS: BMI 25.3
[2017-11-26 17:00] VITALS: BP 119/73; PULSE 88; RESP 18; TEMP 98.2; O2SAT 97
[2017-11-26 17:43] LABS: BASO # 0.13 K/mm3 (0.0-2.0); BASO % 1.4 % (0.0-3.0); EOS # 0.1 (0.0-0.7); EOS % 1.4 % (1.5-5.0); GRAN # 4.14 (1.4-6.5); HEMOGLOBIN 12.3 g/dL (14.0-18.0); LYMPH # 3.8 (1.2-3.4); LYMPH % 41.9 % (22.0-35.0); MEAN CELL VOLUME 104.7 fl (80.0-105.0); MEAN CORPUSCULAR HEMOGLOBIN 36.4 pg (25.0-35.0); MEAN CORPUSCULAR HGB CONC 34.7 g/dl (31.0-37.0); MEAN PLATELET VOLUME 10.2 fl (7.0-11.0); MONO # 0.8 (0.1-0.6); MONO % 9.3 % (1.0-6.0); RBC 3.38 10^6/uL (3.5-6.1)
[2017-11-26 17:53] LABS: ALBUMIN 4.3 g/dL (3.0-4.8); ALT/SGPT 91 U/L (7-56); AST/SGOT 172 U/L (17-59); BLOOD UREA NITROGEN 11 mg/dL (7-21); CALCIUM 9.4 mg/dL (8.4-10.5); GFR AFRICAN-AMERICAN > 60; GFR NON-AFRICAN AMERICAN > 60; INR 1.09 (0.93-1.08); MAGNESIUM 1.8 mg/dL (1.7-2.2); PARTIAL THROMBOPLASTIN TIME 32.4 Seconds (25.1-36.5); PROTHROMBIN TIME 12.5 SECONDS (9.4-12.5)
[2017-11-26 17:58] LABS: URINE BILIRUBIN NEGATIVE (NEGATIVE); URINE BLOOD NEGATIVE (NEGATIVE); URINE GLUCOSE (UA) NEGATIVE (NEGATIVE); URINE LEUKOCYTE ESTERASE NEGATIVE Leu/uL (NEGATIVE); URINE NITRATE NEGATIVE (NEGATIVE); URINE PROTEIN NEGATIVE mg/dL (<30 mg/dL); URINE UROBILINOGEN 0.2 E.U./dL (<1 E.U./dL)
[2017-11-26 18:01] LABS: URINE APPEARANCE CLEAR (CLEAR); URINE COLOR YELLOW (YELLOW)
[2017-11-26 18:08] LABS: TROPONIN I < 0.01 ng/mL
--- NOTE | 2017-11-26 18:28 | RAD ---
HISTORY: Chest pain COMPARISON: 08/20/2017. FINDINGS: LUNGS: The lungs are clear. PLEURA: No significant pleural effusion identified, no pneumothorax apparent. CARDIOVASCULAR: Normal. OSSEOUS STRUCTURES: No significant abnormalities. VISUALIZED UPPER ABDOMEN: Normal. OTHER FINDINGS: None. IMPRESSION: No active pulmonary disease.
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
--- NOTE | 2017-11-28 18:16 | CARD ---
APPROVED REPORT EKG Measurement Heart [id number] <Conclusion> Normal sinus rhythm Normal ECG
== END 2017-11-26 21:43 | disposition home or self-care (01) ==
LOC: ED 16:41
DX: R07.9 Chest pain, unspecified (principal); I10 Essential (primary) hypertension

== ENCOUNTER 2017-11-27 12:37 | Emergency (ER) | payer MEDICAID ==
[2017-11-27 12:38] VITALS: BMI 25.3
[2017-11-27 13:44] VITALS: TEMP 97.9
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
[2017-11-27 18:24] VITALS: BP 129/85
[2017-11-27 21:11] VITALS: PULSE 98; RESP 16; O2SAT 97
== END 2017-11-27 21:11 | disposition home or self-care (01) ==
LOC: ED 12:37
DX: F10.129 Alcohol abuse with intoxication, unspecified (principal); I10 Essential (primary) hypertension

== ENCOUNTER 2017-11-28 19:01 | Emergency (ER) | payer MEDICAID ==
[2017-11-28 19:01] VITALS: BMI 25.3
[2017-11-28 19:27] VITALS: RESP 18; TEMP 97.4
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
[2017-11-28 23:24] VITALS: BP 142/76; PULSE 82; O2SAT 97
== END 2017-11-28 23:23 | disposition home or self-care (01) ==
LOC: ED 19:01
DX: F10.129 Alcohol abuse with intoxication, unspecified (principal); I10 Essential (primary) hypertension

== ENCOUNTER → 2017-11-28 | Emergency (ER) | payer MEDICAID ==
[2017-11-28 10:32] VITALS: BMI 25.3
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
[2017-11-28 15:24] VITALS: O2SAT 98
[2017-11-28 15:25] VITALS: BP 150/83; PULSE 88; RESP 20; TEMP 98.9
== END | disposition left against medical advice (07) ==
LOC: ED 10:32
DX: F10.129 Alcohol abuse with intoxication, unspecified (principal); I10 Essential (primary) hypertension

== ENCOUNTER 2017-11-29 15:14 | Emergency (ER) | payer MEDICAID ==
[2017-11-29 15:46] VITALS: BMI 29.2
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
[2017-11-30 01:30] VITALS: TEMP 98
[2017-11-30 06:18] VITALS: BP 123/86; PULSE 85; RESP 18; O2SAT 99
== END 2017-11-30 06:18 | disposition home or self-care (01) ==
LOC: ED 15:14
DX: F10.10 Alcohol abuse, uncomplicated (principal); Y90.9 Presence of alcohol in blood, level not specified

== ENCOUNTER 2017-11-30 12:12 | Emergency (ER) | payer MEDICAID ==
[2017-11-30 12:12] VITALS: BMI 29.2
[2017-11-30 13:02] VITALS: BP 139/92; PULSE 100; TEMP 98; O2SAT 99
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
[2017-11-30 14:49] VITALS: RESP 19
== END 2017-11-30 14:50 | disposition home or self-care (01) ==
LOC: ED 12:12
DX: F10.20 Alcohol dependence, uncomplicated (principal); Y90.9 Presence of alcohol in blood, level not specified

== ENCOUNTER 2017-12-06 20:46 | Emergency (ER) | payer MEDICAID ==
[2017-12-06 20:46] VITALS: BMI 29.2
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
[2017-12-07 05:44] VITALS: BP 123/72; PULSE 70; RESP 16; TEMP 97.9; O2SAT 100
--- NOTE | 2017-12-07 11:07 | CARD ---
APPROVED REPORT EKG Measurement Heart [id number] <Conclusion> Normal sinus rhythm RVCD Normal ECG No change
== END 2017-12-07 05:56 | disposition home or self-care (01) ==
LOC: ED 20:46
DX: F10.129 Alcohol abuse with intoxication, unspecified (principal); I10 Essential (primary) hypertension

== ENCOUNTER 2017-12-07 17:30 | Emergency (ER) | payer MEDICAID ==
[2017-12-07 17:30] VITALS: BMI 29.2
[2017-12-07 17:42] VITALS: TEMP 98.3
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
[2017-12-08 02:55] VITALS: BP 121/73; PULSE 84; RESP 16; O2SAT 100
== END 2017-12-08 06:00 | disposition home or self-care (01) ==
LOC: ED 17:30
DX: F10.129 Alcohol abuse with intoxication, unspecified (principal); I10 Essential (primary) hypertension

== ENCOUNTER 2017-12-08 17:47 | Emergency (ER) | payer MEDICAID ==
[2017-12-08 17:49] VITALS: BMI 29.2
[2017-12-08 18:17] VITALS: RESP 18; TEMP 97.7
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
[2017-12-09 05:46] VITALS: BP 120/72; PULSE 82; O2SAT 100
== END 2017-12-09 05:30 | disposition home or self-care (01) ==
LOC: ED 17:47
DX: F10.129 Alcohol abuse with intoxication, unspecified (principal); E11.9 Type 2 diabetes mellitus without complications; I10 Essential (primary) hypertension; J44.9 Chronic obstructive pulmonary disease, unspecified

== ENCOUNTER 2017-12-09 16:11 | Emergency (ER) | payer MEDICAID ==
[2017-12-09 16:11] VITALS: BMI 29.2
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
[2017-12-09 16:41] VITALS: BP 124/90; PULSE 88; RESP 20; TEMP 98; O2SAT 98
== END 2017-12-09 16:56 | disposition home or self-care (01) ==
LOC: ED 16:11
DX: F10.20 Alcohol dependence, uncomplicated (principal)

== ENCOUNTER 2017-12-09 20:02 | Emergency (ER) | payer MEDICAID ==
[2017-12-09 20:02] VITALS: BMI 29.2
[2017-12-10 01:07] VITALS: BP 126/80; PULSE 76; RESP 18; TEMP 97.9; O2SAT 98
== END 2017-12-10 01:10 | disposition left against medical advice (07) ==
LOC: ED 20:02
DX: Z02.89 Encounter for other administrative examinations (principal); Z00.00 Encounter for general adult medical examination without abnormal findings

== ENCOUNTER 2017-12-10 20:14 | Emergency (ER) | payer MEDICAID ==
[2017-12-10 20:14] VITALS: BMI 29.2
[2017-12-10 20:31] VITALS: BP 129/84; PULSE 100; RESP 18; TEMP 97.8; O2SAT 94
== END 2017-12-11 01:00 | disposition left against medical advice (07) ==
LOC: ED 20:14
DX: Z02.89 Encounter for other administrative examinations (principal); M79.606 Pain in leg, unspecified

== ENCOUNTER 2017-12-13 16:38 | Emergency (ER) | payer MEDICAID ==
[2017-12-13 16:41] VITALS: BMI 26.5
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
[2017-12-13 19:05] VITALS: BP 122/59; PULSE 82; RESP 16; TEMP 97.9; O2SAT 99
== END 2017-12-13 19:05 | disposition home or self-care (01) ==
LOC: ED 16:38
DX: F10.229 Alcohol dependence with intoxication, unspecified (principal); Y90.9 Presence of alcohol in blood, level not specified

== ENCOUNTER 2017-12-13 21:24 | Emergency (ER) | payer MEDICAID ==
[2017-12-13 21:25] VITALS: BMI 26.5
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
[2017-12-14 03:02] VITALS: BP 123/70; PULSE 91; RESP 19; O2SAT 100
[2017-12-14 05:25] VITALS: TEMP 97.9
== END 2017-12-14 03:00 | disposition home or self-care (01) ==
LOC: ED 21:24
DX: F10.129 Alcohol abuse with intoxication, unspecified (principal); Y90.9 Presence of alcohol in blood, level not specified

== ENCOUNTER 2017-12-14 20:02 | Emergency (ER) | payer MEDICAID ==
[2017-12-14 20:03] VITALS: BMI 26.5
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
[2017-12-14] MEDS ORDERED: guaiFENesin DM 200 mg-20 mg/10 ml UD PO STA (21:56)
[2017-12-14 23:56] VITALS: PULSE 80
[2017-12-14 23:57] VITALS: BP 142/70; RESP 18; TEMP 97.6; O2SAT 99
== END 2017-12-14 23:56 | disposition home or self-care (01) ==
LOC: ED 20:02
DX: F10.229 Alcohol dependence with intoxication, unspecified (principal); Y90.9 Presence of alcohol in blood, level not specified; M25.50 Pain in unspecified joint

== ENCOUNTER 2017-12-15 17:28 | Emergency (ER) | payer MEDICAID ==
[2017-12-15 17:28] VITALS: BMI 26.5
[2017-12-15 17:38] VITALS: TEMP 97.8
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
[2017-12-16 04:20] VITALS: BP 100/55; PULSE 88; RESP 18; O2SAT 99
== END 2017-12-16 06:00 | disposition home or self-care (01) ==
LOC: ED 17:28
DX: F10.129 Alcohol abuse with intoxication, unspecified (principal); Y90.9 Presence of alcohol in blood, level not specified

== ENCOUNTER 2017-12-16 16:10 | Emergency (ER) | payer MEDICAID ==
[2017-12-16 16:11] VITALS: BMI 26.5
[2017-12-16 17:52] VITALS: BP 132/92; PULSE 89; RESP 18; TEMP 98.3; O2SAT 99
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
== END 2017-12-16 22:43 | disposition home or self-care (01) ==
LOC: ED 16:10
DX: F10.20 Alcohol dependence, uncomplicated (principal); Y90.9 Presence of alcohol in blood, level not specified

== ENCOUNTER 2017-12-18 18:38 | Emergency (ER) | payer MEDICAID ==
[2017-12-18 18:39] VITALS: BMI 26.5
== END 2017-12-18 19:42 | disposition left against medical advice (07) ==
LOC: ED 18:38
DX: Z02.89 Encounter for other administrative examinations (principal); R11.10 Vomiting, unspecified

== ENCOUNTER 2017-12-19 18:29 | Emergency (ER) | payer MEDICAID, OTHER ==
[2017-12-19 18:47] VITALS: BMI 29.2
[2017-12-19 18:49] VITALS: BP 115/83; PULSE 105; RESP 18; TEMP 98.5; O2SAT 97
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
== END 2017-12-19 19:30 | disposition left against medical advice (07) ==
LOC: ED 18:29
DX: Z02.89 Encounter for other administrative examinations (principal); T14.90XA Injury, unspecified, initial encounter

== ENCOUNTER 2017-12-22 16:45 | Emergency (ER) | payer MEDICAID, OTHER ==
[2017-12-22 16:45] VITALS: BMI 29.2
[2017-12-22 17:04] VITALS: TEMP 97.5
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
--- NOTE | 2017-12-22 18:40 | US ---
HISTORY: Leg pain and swelling. Evaluate for DVT PHYSICIAN(S): Collin Gutierrez MD. TECHNIQUE: Duplex sonography and color-flow Doppler with graded compression were used to evaluate the deep venous systems of both lower extremities. FINDINGS: The visualized deep venous systems of both lower extremities are sonographically normal and compressible. Normal wave forms and augmentation are seen. There is no sonographic evidence for deep venous thrombosis in the visualized segments of both lower extremities. IMPRESSION: No sonographic evidence for deep venous thrombosis in the visualized segments of both lower extremities.
[2017-12-23 04:56] VITALS: BP 112/72; PULSE 68; RESP 12; O2SAT 99
== END 2017-12-23 06:08 | disposition home or self-care (01) ==
LOC: ED 16:45
DX: F10.129 Alcohol abuse with intoxication, unspecified (principal); M79.606 Pain in leg, unspecified; F17.210 Nicotine dependence, cigarettes, uncomplicated; I10 Essential (primary) hypertension

== ENCOUNTER 2017-12-24 17:35 | Emergency (ER) | payer MEDICAID, OTHER ==
[2017-12-24 17:35] VITALS: BMI 29.2
== END 2017-12-24 18:15 | disposition left against medical advice (07) ==
LOC: ED 17:35
DX: Z02.89 Encounter for other administrative examinations (principal); R04.0 Epistaxis

== ENCOUNTER 2017-12-24 22:32 | Emergency (ER) | payer MEDICAID, OTHER ==
[2017-12-24 22:32] VITALS: BMI 29.2
== END 2017-12-25 03:26 | disposition left against medical advice (07) ==
LOC: ED 22:32
DX: Z02.89 Encounter for other administrative examinations (principal); F10.129 Alcohol abuse with intoxication, unspecified

== ENCOUNTER 2017-12-25 18:10 | Emergency (ER) | payer MEDICAID, OTHER ==
[2017-12-25 18:10] VITALS: BMI 29.2
[2017-12-25 18:29] VITALS: BP 119/79; PULSE 88; RESP 18; TEMP 98.4; O2SAT 99
== END 2017-12-26 00:33 | disposition left against medical advice (07) ==
LOC: ED 18:10
DX: Z02.89 Encounter for other administrative examinations (principal); F10.129 Alcohol abuse with intoxication, unspecified

== ENCOUNTER 2017-12-26 23:10 | Emergency (ER) | payer MEDICAID, OTHER ==
[2017-12-26 23:10] VITALS: BMI 29.2
[2017-12-27 01:10] VITALS: PULSE 84; RESP 18; TEMP 97.9; O2SAT 98
== END 2017-12-27 01:48 | disposition left against medical advice (07) ==
LOC: ED 23:10
DX: Z02.89 Encounter for other administrative examinations (principal); F10.10 Alcohol abuse, uncomplicated

== ENCOUNTER 2017-12-27 19:56 | Inpatient (IN) | payer MEDICAID, OTHER ==
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
[2017-12-27 23:04] LABS: BASO # 0.04 K/mm3 (0.0-2.0); BASO % 0.5 % (0.0-3.0); EOS % 0.2 % (1.5-5.0); GRAN # 5.04 (1.4-6.5); GRAN % 61.7 % (50.0-68.0); HEMOGLOBIN 13.2 g/dL (14.0-18.0); LYMPH # 2.6 (1.2-3.4); LYMPH % 31.7 % (22.0-35.0); MEAN CELL VOLUME 99.5 fl (80.0-105.0); MEAN CORPUSCULAR HGB CONC 36.2 g/dl (31.0-37.0); MEAN PLATELET VOLUME 11.4 fl (7.0-11.0); MONO # 0.5 (0.1-0.6); MONO % 5.9 % (1.0-6.0); RBC 3.67 10^6/uL (3.5-6.1); RED CELL DISTRIBUTION WIDTH 14.3 % (11.5-14.5); WHITE BLOOD COUNT 8.2 10^3/ul (4.5-11.0)
[2017-12-27 23:13] LABS: INR 1.16 (0.93-1.08); PARTIAL THROMBOPLASTIN TIME 32.2 Seconds (25.1-36.5); PROTHROMBIN TIME 13.3 SECONDS (9.4-12.5)
[2017-12-27 23:21] LABS: ALB/GLOB RATIO 0.8 (1.1-1.8); ALBUMIN 4.1 g/dL (3.0-4.8); ALT/SGPT 216 U/L (7-56); AST/SGOT 696 U/L (17-59); BLOOD UREA NITROGEN 11 mg/dL (7-21); CALCIUM 9.1 mg/dL (8.4-10.5); GFR AFRICAN-AMERICAN > 60; GFR NON-AFRICAN AMERICAN > 60
[2017-12-27 23:34] LABS: TROPONIN I 0.02 ng/mL
[2017-12-28] MEDS ORDERED: Multivitamin (MVI) 10 ML, Thiamine 100 MG, Folic Acid 1 MG in Sodium Chloride 0.9% 1,00... IV ONE (01:13)
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
[2017-12-28] MEDS: Pantoprazole 40mg/100mL NS 40 MG/100 ML BAG IVPB SCH ×5 (01:46→22:03)
[2017-12-28] MEDS: Insulin Lispro (humaLOG) LOW Coverage SC SCH ×4 (08:35→22:50)
[2017-12-28 08:36] LABS: BASO # 0.05 K/mm3 (0.0-2.0); BASO % 0.9 % (0.0-3.0); EOS # 0.1 (0.0-0.7); EOS % 1.7 % (1.5-5.0); GRAN # 2.9 (1.4-6.5); GRAN % 54.3 % (50.0-68.0); HEMOGLOBIN 12.4 g/dL (14.0-18.0); LYMPH # 1.9 (1.2-3.4); LYMPH % 35.6 % (22.0-35.0); MEAN CORPUSCULAR HGB CONC 36.8 g/dl (31.0-37.0); MEAN PLATELET VOLUME 10.3 fl (7.0-11.0); MONO # 0.4 (0.1-0.6); MONO % 7.5 % (1.0-6.0); RBC 3.44 10^6/uL (3.5-6.1); RED CELL DISTRIBUTION WIDTH 14.3 % (11.5-14.5); WHITE BLOOD COUNT 5.3 10^3/ul (4.5-11.0)
[2017-12-28 08:55] LABS: ALB/GLOB RATIO 0.8 (1.1-1.8); ALBUMIN 3.7 g/dL (3.0-4.8); ALT/SGPT 191 U/L (7-56); AST/SGOT 629 U/L (17-59); BLOOD UREA NITROGEN 11 mg/dL (7-21); CALCIUM 8.4 mg/dL (8.4-10.5); GFR AFRICAN-AMERICAN > 60; GFR NON-AFRICAN AMERICAN > 60
[2017-12-28] MEDS: Dextrose 5%/0.45% NS 1,000 ML IV SCH ×3 (09:14→22:03)
[2017-12-28 14:56] VITALS: BMI 25.4
[2017-12-28] MEDS ORDERED: Pneumococcal 23-Valent Vaccine IM ONE (14:57)
[2017-12-28] MEDS ORDERED: Influenza Vaccine 60 mcg/0.5 mL SYR (4YR UP) IM ONE (14:57)
[2017-12-28 16:20] LABS: BASO # 0.04 K/mm3 (0.0-2.0); BASO % 0.8 % (0.0-3.0); EOS % 0.6 % (1.5-5.0); GRAN # 3.57 (1.4-6.5); GRAN % 71.2 % (50.0-68.0); HEMOGLOBIN 11.8 g/dL (14.0-18.0); LYMPH # 1.1 (1.2-3.4); MEAN CELL VOLUME 97.9 fl (80.0-105.0); MEAN CORPUSCULAR HEMOGLOBIN 35.3 pg (25.0-35.0); MEAN CORPUSCULAR HGB CONC 36.1 g/dl (31.0-37.0); MONO # 0.3 (0.1-0.6); MONO % 6.4 % (1.0-6.0); RBC 3.34 10^6/uL (3.5-6.1); RED CELL DISTRIBUTION WIDTH 14.4 % (11.5-14.5)
--- NOTE | 2017-12-28 16:42 | CARD ---
APPROVED REPORT EKG Measurement Heart [id number] <Conclusion> Normal sinus rhythm Normal ECG
--- NOTE | 2017-12-28 16:49 | CON ---
DATE: 12/28/2017 HISTORY OF PRESENT ILLNESS: I saw Mr. Mccormick this morning. He is a 47 -year-old white male with past medical history of extensive alcohol abuse, hypertension, diabetes, presented after recurrent nausea and vomiting and epigastric discomfort. Note that the patient drinks on an average 10 plus cans of beer on a daily basis. Usually, he indicates extremity shaking initially upon awakening, he usually will in take alcohol in order to stop shaking. Initial consultation for GI bleed. In discussion with the patient, he indicates there is no hematemesis noted until after vomiting roughly 10 to 15 times. The amount of blood noted was small, mostly blood streaking. He denied any gross rectal bleeding. I discussed the case with the ER physician this morning who indicated that the rectal exam was within normal limits. The patient indicated that his bowel movements have been of normal color. Melena was denied. In the emergency room, the patient indicates some degree of shortness of breath. He also indicates some degree of epigastric and left upper quadrant pain. The patient was not nauseous at the time of evaluation. PHYSICAL EXAMINATION VITAL SIGNS: I reviewed this patient's vital signs. HEENT: Noncontributory. LUNGS: Decreased breath sounds, basilar. HEART: Regular rhythm. ABDOMEN: Soft, mild tenderness in the epigastric area and left upper quadrant. LABORATORY DATA: Indicates white count of 8.2, H and H of 13/36, platelet count 109,000. INR 1.16. Review of laboratory indicates bilirubin 3.5 with an AST:ALT ratio of 696/316, alkaline phosphatase of 425 with lactate dehydrogenase of 931. His BUN and creatinine ratio was 11 and 0.7. Note that the patient's alcohol level was 341. 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 Review of laboratory data, in discussion with the patient, indicates that this patient not a candidate for an endoscopic evaluation. Most likely, the patient after vomiting multiple, multiple times, exhibited some degree of esophageal mucosal irritation, which resulted in some blood-tinged vomiting. Note that the patient's guaiac exam in the ER was negative. There had not been any hematemesis or rectal bleeding in the ER according to the ER physician. H and P noted in the [employer]. Based on the patient's history, I think a Protonix drip is not warranted at the current time point. He may do well either with b.i.d. H2 blockers or PPIs. The patient is currently n.p.o.; however, one might consider to advance diet to small volume clear liquids. The patient's AST/ALT ratio is elevated. There may be some degree of alcoholic hepatitis. Obviously, the patient needs to curtail his alcohol intake. Ativan apparently has been ordered for withdrawal symptoms. The patient will be followed by house staff. Quinton Sawant DO, PhD MTDShira
[2017-12-28 21:29] LABS: URINE BILIRUBIN SMALL (NEGATIVE); URINE BLOOD TRACE-LYSED (NEGATIVE); URINE GLUCOSE (UA) NEGATIVE (NEGATIVE); URINE LEUKOCYTE ESTERASE NEGATIVE Leu/uL (NEGATIVE); URINE NITRATE NEGATIVE (NEGATIVE); URINE PROTEIN NEGATIVE mg/dL (<30 mg/dL); URINE UROBILINOGEN 0.2 E.U./dL (<1 E.U./dL)
[2017-12-28 21:33] LABS: URINE APPEARANCE CLEAR (CLEAR); URINE COLOR YELLOW (YELLOW)
[2017-12-28 21:35] LABS: URINE BACTERIA TRACE (NEG); URINE WBC NEGATIVE /hpf (0-6)
[2017-12-29] MEDS: Pantoprazole 40mg/100mL NS 40 MG/100 ML BAG IVPB SCH ×2 (03:15→08:38)
[2017-12-29] MEDS: Dextrose 5%/0.45% NS 1,000 ML IV SCH ×2 (05:12→21:43)
--- NOTE | 2017-12-29 06:33 | PN ---
DATE: 12/29/2017 SUBJECTIVE: I saw Mr. Mccormick this morning. This is a 47-year-old male known to consultants with past medical history of extensive alcohol use, hypertension, diabetes, presented after episode of abdominal pain with recurrent nausea and vomiting. I discussed this case with the nurse on the floor. There has been no hematemesis or rectal bleeding. Abdominal pain is decreased somewhat, he clinically, still feels slightly short of breath. He wants to advance his diet today. Nausea has somewhat dissipated. PHYSICAL EXAMINATION: VITAL SIGNS: I reviewed this patient's vital signs. HEENT: Noncontributory except for dry mouth. LUNGS: Decreased breath sounds, basilar. HEART: Regular rhythm. ABDOMEN: Soft, mild tenderness in the epigastric area. LABORATORY DATA: Pending for this morning. OVERALL ASSESSMENT: This is a 47-year-old white male with history of extensive alcohol use, presented with elevated transaminases and hepatic steatosis based on significant alcohol intake. Patient is currently on telemetry. His medication on board for DT precaution including Ativan. He is currently getting IV fluids, which I have decreased this morning given the fact that he was started with liquid diet this morning. I am agreeable with the orders currently written. No acute GI intervention warranted at this particular time point. Continue DT precautions. Quinton Sawant DO, PhD MTDShira
[2017-12-29 06:46] LABS: BASO # 0.03 K/mm3 (0.0-2.0); BASO % 0.6 % (0.0-3.0); EOS # 0.1 (0.0-0.7); EOS % 1.9 % (1.5-5.0); GRAN # 3.06 (1.4-6.5); GRAN % 59.7 % (50.0-68.0); HEMOGLOBIN 11.9 g/dL (14.0-18.0); LYMPH # 1.5 (1.2-3.4); LYMPH % 29.2 % (22.0-35.0); MEAN CELL VOLUME 100.9 fl (80.0-105.0); MEAN CORPUSCULAR HEMOGLOBIN 35.1 pg (25.0-35.0); MEAN CORPUSCULAR HGB CONC 34.8 g/dl (31.0-37.0); MEAN PLATELET VOLUME 10.8 fl (7.0-11.0); MONO # 0.4 (0.1-0.6); MONO % 8.6 % (1.0-6.0); RBC 3.39 10^6/uL (3.5-6.1); RED CELL DISTRIBUTION WIDTH 14.6 % (11.5-14.5); WHITE BLOOD COUNT 5.1 10^3/ul (4.5-11.0)
[2017-12-29 06:54] LABS: ALB/GLOB RATIO 0.8 (1.1-1.8); ALBUMIN 3.3 g/dL (3.0-4.8); ALT/SGPT 168 U/L (7-56); AST/SGOT 622 U/L (17-59); BLOOD UREA NITROGEN 7 mg/dL (7-21); GFR AFRICAN-AMERICAN > 60; GFR NON-AFRICAN AMERICAN > 60
[2017-12-29] MEDS: Insulin Lispro (humaLOG) LOW Coverage SC SCH ×4 (08:10→21:43)
[2017-12-29] MEDS ORDERED: Potassium Chloride 20 mEq ER Tab PO STA (08:11)
--- NOTE | 2017-12-29 13:29 | CP.PCM.PN ---
<Christopher Sylvester - Last Filed: 12/29/17 13:16> Subjective - Date & Time of Evaluation Date of Evaluation: 12/29/17 Time of Evaluation: 13:30 - Subjective Subjective: Medicine Progress Note: Patient seen and assessed at bedside. No acute events overnight reported by patient or nursing staff. Patient has no complaints at this time, including fever, chills, headache, chest pain, palpitations, SOB, cough, abdominal pain, N /V/D/C, urinary symptoms or any numbness/tingling/weakness of any extremity. Objective - Vital Signs/Intake and Output Vital Signs (last 24 hours): Temp Pulse Resp BP Pulse Ox 98.1 F 113 H 20 168/98 H 93 L 12/29/17 12:00 12/29/17 12:00 12/29/17 12:00 12/29/17 12:00 12/29/17 06:00 Intake and Output: 12/29/17 12/29/17 06:59 18:59 Intake Total 240 Output Total 300 Balance -60 - Medications Medications: Current Medications Dextrose/Sodium Chloride (Dextrose 5%/0.45% Ns 1000 Ml) 1,000 mls @ 70 mls/hr IV .[id number] [facility] Last Admin: 12/29/17 05:12 Dose: 70 mls/hr Insulin Human Lispro (Humalog Low) 0 units SC ACHS [facility]CTOR PRN Reason: Protocol Last Admin: 12/29/17 11:41 Dose: Not Given Lorazepam (Ativan) 1 mg IVP Q6 [facility]CTOR PRN Reason: Protocol Last Admin: 12/29/17 05:16 Dose: 1 mg Lorazepam (Ativan) 1 mg IVP Q4 PRN; Protocol PRN Reason: Symptoms of alcohol withdrawl Pantoprazole Sodium (Protonix Ec Tab) 40 mg PO 0600 VÍCTOR - Labs Labs: 12/29/17 06:00 12/29/17 06:00 PT 13.3 SECONDS (9.4-12.5) H 12/27/17 22:57 INR 1.16 (0.93-1.08) H 12/27/17 22:57 APTT 32.2 Seconds (25.1-36.5) 12/27/17 22:57 - Constitutional Appears: Non-toxic, No Acute Distress, Unkempt - Head Exam Head Exam: ATRAUMATIC, NORMAL INSPECTION, NORMOCEPHALIC - Eye Exam Eye Exam: EOMI, Normal appearance, PERRL - ENT Exam ENT Exam: Mucous Membranes Moist, Normal Exam - Neck Exam Neck Exam: Full ROM, Normal Inspection. absent: Lymphadenopathy - Respiratory Exam Respiratory Exam: Clear to Ausculation Bilateral, NORMAL BREATHING PATTERN. absent: Accessory Muscle Use, Chest Wall Tenderness, Decreased Breath Sounds, Prolonged Expiratory Phase, Rales, Rhonchi, Wheezes, Respiratory Distress, Stridor - Cardiovascular Exam Cardiovascular Exam: REGULAR RHYTHM, RRR, +S1, +S2. absent: Murmur - GI/Abdominal Exam GI & Abdominal Exam: Soft, Normal Bowel Sounds. absent: Tenderness - Extremities Exam Extremities Exam: Full ROM, Normal Capillary Refill, Normal Inspection. absent : Calf Tenderness, Joint Swelling, Pedal Edema, Tenderness - Back Exam Back Exam: NORMAL INSPECTION - Neurological Exam Neurological Exam: Alert, Awake, CN II-XII Intact, Oriented x3 - Psychiatric Exam Psychiatric exam: Normal Affect, Normal Mood - Skin Skin Exam: Dry, Intact, Normal Color, Warm Assessment and Plan - Assessment and Plan (Free Text) Assessment: 47 year old male with a past medical history significant for alcohol abuse, HTN , and DM2 presents with several episodes of unwitnessed hematemesis and bloody bowel movements. Patient has had stable hemoglobin and hematocrit measures throughout admission to this point and remained HDS. GI consulted and not recommending any acute interventions from their standpoint at this time. Plan: 1. Hematemesis/Melena/Hematochezia -Stool guaiac negative -Hemoglobin/Hematocrit stable throughout admission -Protonix drip discontinued and Protonix PO started -Continue D5/HNS at 70mls/hr -Advanced to Clear Liquid Diet by GI -Daily CBC to monitor anemia -GI consulted, all recommendations appreciated 2. Transaminitis -Total Bilirubin and AST/ALT/ALP all elevated beyond patients baseline -Abdomen Complete Ultrasound pending -GI consulted, all recommendations appreciated 3. Alcohol Abuse/Withdrawal -Alcohol level at 341 on admission -Ativan 1mg IVP Q6 VÍCTOR and Q4 PRN for symptoms of alcohol withdrawal -Thiamine, Folate and MV supplementation -CIWA assessments Q4 -Aspiration, Fall and Seizure precautions 4. History of DM2 -SSI-Low and Accuchecks ACHS GI Prophylaxis: Protonix DVT Prophylaxis: SCD's Patient seen and case discussed with attending, Dr. Hare. <Priyank Hare - Last Filed: 12/29/17 15:25> Objective - Vital Signs/Intake and Output Vital Signs (last 24 hours): Temp Pulse Resp BP Pulse Ox 98.1 F 113 H 20 168/98 H 93 L 12/29/17 12:00 12/29/17 12:00 12/29/17 12:00 12/29/17 12:00 12/29/17 06:00 Intake and Output: 12/29/17 12/29/17 06:59 18:59 Intake Total 240 Output Total 300 Balance -60 - Medications Medications: Current Medications Folic Acid (Folic Acid) 1 mg PO DAILY [facility] Dextrose/Sodium Chloride (Dextrose 5%/0.45% Ns 1000 Ml) 1,000 mls @ 70 mls/hr IV .[id number] [facility] Last Admin: 12/29/17 05:12 Dose: 70 mls/hr Insulin Human Lispro (Humalog Low) 0 units SC ACHS VÍCTOR PRN Reason: Protocol Last Admin: 12/29/17 11:41 Dose: Not Given Lorazepam (Ativan) 1 mg IVP Q6 [facility]CTOR PRN Reason: Protocol Last Admin: 12/29/17 13:34 Dose: 1 mg Lorazepam (Ativan) 1 mg IVP Q4 PRN; Protocol PRN Reason: Symptoms of alcohol withdrawl Multivitamins/Minerals (Therapeutic-M Tab) 1 tab PO 0800 [facility]CTOR Pantoprazole Sodium (Protonix Ec Tab) 40 mg PO 0600 [facility]CTOR Thiamine HCl (Vitamin B1 Tab) 100 mg PO DAILY VÍCTOR - Labs Labs: 12/29/17 06:00 12/29/17 06:00 PT 13.3 SECONDS (9.4-12.5) H 12/27/17 22:57 INR 1.16 (0.93-1.08) H 12/27/17 22:57 APTT 32.2 Seconds (25.1-36.5) 12/27/17 22:57 Attending/Attestation - Attestation I have personally seen and examined this patient.: Yes I have fully participated in the care of the patient.: Yes I have reviewed all pertinent clinical information, including history, physical exam and plan: Yes Notes (Text): 12/29/17 15:21 Patient was seen and examined with manager medical writing. Agreed with assessment and plan. 47 year old male with past medical history of chronic ETOH abuse who presented with complaint of upper GI bleeding, alcohol withdrawal and elevated LFT .Hemoglobin is stable Patient is s/p EGD/colonoscopy last admission 11/03 which showed grade 1 varices, gastritis and hemorrhoids.No plan for EGD this time, Patient is tolerating diet.We will switch to oral Protonix. LFT are elevated due to alcohol abuse,we will order US of liver ordered, patient had extensive work up previously (MRCP showed finding suggestive of mass on tail of Pancreas. 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 Continue CIWA Protocol for alcohol withdrawal. issue of ongoing alcohol abuse was discussed with him. Prognosis is guarded due to non compliance and ongoing alcohol abuse. Management plan was discussed in detail with patient. Education was provided.
[2017-12-29] MEDS ORDERED: Metoprolol 1 mg/ml Inj IVP PRN (15:56)
--- NOTE | 2017-12-29 18:07 | US ---
HISTORY: Elevated LFT's COMPARISON: 06/11/2017 abdominal ultrasound TECHNIQUE: Sonographic evaluation of the abdomen. FINDINGS: LIVER: Measures 11.9 x 16.6 cm. Hepatomegaly. Hepatopedal blood flow. Fatty infiltration manifest ultrasonographically as increased Echogenicity of the liver parenchyma. No mass. No intrahepatic bile duct dilatation. GALLBLADDER: Gallbladder wall thickening without evidence of calculus disease. Maximum gallbladder thickness 4.7 mm. No sonographic Cuellar sign elicited. COMMON BILE DUCT: Measures 2.8 mm. No stones. No dilatation. PANCREAS: Unremarkable as visualized. No mass. No ductal dilatation. RIGHT KIDNEY: Measures 5.6 x 10.6cm. Normal echogenicity. No calculus, mass, or hydronephrosis. LEFT KIDNEY: Measures 6 x 10.6cm. Normal echogenicity. No calculus, mass, or hydronephrosis. SPLEEN: Normal in size and contour. No mass. AORTA: No aneurysmal dilatation. IVC: Unremarkable. OTHER FINDINGS: None. IMPRESSION: Hepatomegaly, hepatic steatosis without focal abnormality. Gallbladder wall thickening without pericholecystic fluid, gallstones or sonographic Cuellar's sign.
[2017-12-30 07:14] LABS: BASO # 0.03 K/mm3 (0.0-2.0); BASO % 0.5 % (0.0-3.0); EOS # 0.1 (0.0-0.7); EOS % 1.1 % (1.5-5.0); GRAN # 3.96 (1.4-6.5); GRAN % 64.7 % (50.0-68.0); HEMOGLOBIN 11.5 g/dL (14.0-18.0); LYMPH # 1.7 (1.2-3.4); LYMPH % 27.7 % (22.0-35.0); MEAN CELL VOLUME 99.7 fl (80.0-105.0); MEAN CORPUSCULAR HEMOGLOBIN 34.2 pg (25.0-35.0); MEAN CORPUSCULAR HGB CONC 34.3 g/dl (31.0-37.0); MEAN PLATELET VOLUME 12.8 fl (7.0-11.0); MONO # 0.4 (0.1-0.6); RBC 3.36 10^6/uL (3.5-6.1); RED CELL DISTRIBUTION WIDTH 14.7 % (11.5-14.5); WHITE BLOOD COUNT 6.1 10^3/ul (4.5-11.0)
[2017-12-30 07:38] LABS: ALB/GLOB RATIO 0.8 (1.1-1.8); ALBUMIN 3.5 g/dL (3.0-4.8); ALT/SGPT 163 U/L (7-56); AST/SGOT 505 U/L (17-59); BLOOD UREA NITROGEN < 2 mg/dL (7-21); CALCIUM 9.5 mg/dL (8.4-10.5); GFR AFRICAN-AMERICAN > 60; GFR NON-AFRICAN AMERICAN > 60
[2017-12-30] MEDS ORDERED: Potassium Chloride 20 mEq ER Tab PO ONE (08:11)
[2017-12-30] MEDS ORDERED: Potassium Chloride 20 mEq ER Tab PO STA (08:11)
[2017-12-30] MEDS: Insulin Lispro (humaLOG) LOW Coverage SC SCH ×4 (08:25→22:02)
[2017-12-30] MEDS: Pantoprazole 40 mg EC Tab PO SCH (08:26)
[2017-12-30] MEDS: Multivitamin With Minerals Tab PO SCH (08:29)
[2017-12-30] MEDS ORDERED: Magnesium Sulfate 2 GM in Sodium Chloride 0.9% 100 ML IVPB ONE (10:24)
--- NOTE | 2017-12-30 10:27 | PN ---
DATE: 12/30/2017 SUBJECTIVE: I saw Mr. Mccormick this morning. He is a 47-year-old white male with complaints of nausea, vomiting, abdominal pain secondary to excessive alcohol intake. I reviewed this case with nurses on telemetry. The patient is currently delirious, with DTs. No episodes of nausea, vomiting, hematemesis noted. Review of laboratory data indicate as of yesterday, bilirubin brittney to 5.7 with an AST/ALT ratio of 622/168. Alkaline phosphatase still at 343-344 range. Potassium is as low as 3.4. I reviewed Dr. Hare's note. Overall plan as per Dr. Hare. Continue Protonix p.o. since the patient does not need Protonix drip. He was advanced to clear liquid diet. I reviewed the abdominal ultrasound performed yesterday. It indicates hepatic steatosis with no intrahepatic duct dilatation. He does have gallbladder wall thickening, but no evidence of pericholecystic fluid. There are no gallstones. Suggest continue to monitor his LFTS and also DT precautions with the appropriate medications. Quinton Sawant DO, PhD KAMILAH
[2017-12-30] MEDS: Dextrose 5%/0.45% NS 1,000 ML IV SCH ×2 (11:47→19:28)
--- NOTE | 2017-12-30 12:20 | CP.PCM.PN ---
<Christopher Sylvester - Last Filed: 12/30/17 17:52> Subjective - Date & Time of Evaluation Date of Evaluation: 12/30/17 Time of Evaluation: 12:12 - Subjective Subjective: Medicine Progress Note: Patient seen and assessed at bedside. A lis dominguez was called on patient at approximately 0300 this morning as patient was agitated, confused and wanting to leave. Geodon and Ativan were given to patient and this resolved patients agitation. No other acute events were noted. Patient has no complaints at this time, including fever, chills, headache, chest pain, palpitations, SOB, cough, abdominal pain, N/V/D/C, urinary symptoms or any numbness/tingling/weakness of any extremity. Objective - Vital Signs/Intake and Output Vital Signs (last 24 hours): Temp Pulse Resp BP Pulse Ox 98.5 F 78 20 138/80 96 12/30/17 06:00 12/30/17 06:00 12/30/17 06:00 12/30/17 06:00 12/30/17 06:00 Intake and Output: 12/30/17 12/30/17 06:59 18:59 Intake Total 1520 Output Total 3 Balance 1517 - Medications Medications: Current Medications Folic Acid (Folic Acid) 1 mg PO DAILY [facility] Last Admin: 12/30/17 11:46 Dose: Not Given Dextrose/Sodium Chloride (Dextrose 5%/0.45% Ns 1000 Ml) 1,000 mls @ 70 mls/hr IV .[id number] [facility] Last Admin: 12/30/17 11:47 Dose: 70 mls/hr Insulin Human Lispro (Humalog Low) 0 units SC ACHS JOHNNIE PRN Reason: Protocol Last Admin: 12/30/17 08:25 Dose: 1 units Lorazepam (Ativan) 1 mg IVP Q2 PRN; Protocol PRN Reason: Agitation Lorazepam (Ativan) 2 mg IVP Q4 JOHNNIE PRN Reason: Protocol Last Admin: 12/30/17 11:43 Dose: 2 mg Metoprolol Tartrate (Lopressor) 25 mg PO BID [facility] Last Admin: 12/30/17 11:45 Dose: Not Given Multivitamins/Minerals (Therapeutic-M Tab) 1 tab PO 0800 [facility] Last Admin: 12/30/17 08:29 Dose: 1 tab Pantoprazole Sodium (Protonix Ec Tab) 40 mg PO 0600 [facility] Last Admin: 12/30/17 08:26 Dose: 40 mg Thiamine HCl (Vitamin B1 Tab) 100 mg PO DAILY [facility] Last Admin: 12/30/17 11:47 Dose: Not Given Ziprasidone (Geodon Inj) 10 mg IM Q8 PRN; Protocol PRN Reason: Agitation Last Admin: 12/30/17 11:44 Dose: 10 mg - Labs Labs: 12/30/17 06:30 12/30/17 06:30 PT 13.3 SECONDS (9.4-12.5) H 12/27/17 22:57 INR 1.16 (0.93-1.08) H 12/27/17 22:57 APTT 32.2 Seconds (25.1-36.5) 12/27/17 22:57 - Constitutional Appears: No Acute Distress, Unkempt, Confused - Head Exam Head Exam: ATRAUMATIC, NORMAL INSPECTION, NORMOCEPHALIC - Eye Exam Eye Exam: EOMI, Normal appearance, PERRL - ENT Exam ENT Exam: Mucous Membranes Moist, Normal Exam - Neck Exam Neck Exam: Full ROM, Normal Inspection. absent: Lymphadenopathy - Respiratory Exam Respiratory Exam: Clear to Ausculation Bilateral, NORMAL BREATHING PATTERN. absent: Accessory Muscle Use, Chest Wall Tenderness, Decreased Breath Sounds, Prolonged Expiratory Phase, Rales, Rhonchi, Wheezes, Respiratory Distress, Stridor - Cardiovascular Exam Cardiovascular Exam: REGULAR RHYTHM, RRR, +S1, +S2 - GI/Abdominal Exam GI & Abdominal Exam: Soft, Normal Bowel Sounds. absent: Tenderness - Extremities Exam Extremities Exam: Full ROM, Normal Capillary Refill, Normal Inspection. absent : Calf Tenderness, Joint Swelling, Pedal Edema, Tenderness - Neurological Exam Neurological Exam: Alert, Awake - Psychiatric Exam Psychiatric exam: Anxious - Skin Skin Exam: Dry, Intact, Normal Color, Warm Assessment and Plan - Assessment and Plan (Free Text) Assessment: 47 year old male with a past medical history significant for alcohol abuse, HTN , and DM2 presents with several episodes of unwitnessed hematemesis and bloody bowel movements. Patient has had stable hemoglobin and hematocrit measures throughout admission to this point and remained HDS. GI consulted and not recommending any acute interventions from their standpoint at this time. Patient transitioned from clear liquid diet to full liquid diet. Patient is starting to experience symptoms of alcohol withdrawal, requiring restraints, increased dosages of ativan and geodon PRN. Plan: 1. Hematemesis/Melena/Hematochezia -Hemoglobin/Hematocrit stable throughout admission -Continue Protonix PO -Continue D5/HNS at 70mls/hr -Advanced to Full Liquid Diet -Daily CBC to monitor anemia -GI consulted, all recommendations appreciated 2. Transaminitis -Total Bilirubin and AST/ALT/ALP all elevated beyond patients baseline -Abdomen Complete Ultrasound showing hepatic steatosis, hepatomegaly, and gallbladder wall thickening without stones or ductal dilatation -Daily CMP's to trend -GI consulted, all recommendations appreciated 3. Alcohol Abuse/Withdrawal -CIWA scores increasing over past 24 hours -Increased Ativan to 2mg IVP Q4 JOHNNIE and 1mg IVP Q2 PRN for symptoms of alcohol withdrawal -Started Geodon 10mg IM Q8H PRN for agitation -Medical restraints as indicated -Thiamine, Folate and MV supplementation -CIWA assessments Q4 -Aspiration, Fall and Seizure precautions 4. History of DM2 -SSI-Low and Accuchecks ACHS GI Prophylaxis: Protonix DVT Prophylaxis: SCD's Patient seen and case discussed with attending, Dr. Monsivais. <Codie Monsivais - Last Filed: 12/30/17 23:03> Objective - Vital Signs/Intake and Output Vital Signs (last 24 hours): Temp Pulse Resp BP Pulse Ox 97.7 F 86 19 107/62 96 12/30/17 18:00 12/30/17 18:32 12/30/17 18:00 12/30/17 18:32 12/30/17 06:00 Intake and Output: 12/30/17 12/31/17 18:59 06:59 Intake Total 780 Output Total 300 Balance 480 - Medications Medications: Current Medications Folic Acid (Folic Acid) 1 mg PO DAILY [facility] Last Admin: 12/30/17 11:46 Dose: Not Given Dextrose/Sodium Chloride (Dextrose 5%/0.45% Ns 1000 Ml) 1,000 mls @ 70 mls/hr IV .[id number] [facility] Last Admin: 12/30/17 19:28 Dose: 70 mls/hr Insulin Human Lispro (Humalog Low) 0 units SC ACHS [facility] PRN Reason: Protocol Last Admin: 12/30/17 22:02 Dose: Not Given Lorazepam (Ativan) 1 mg IVP Q2 PRN; Protocol PRN Reason: Agitation Last Admin: 12/30/17 16:15 Dose: 1 mg Lorazepam (Ativan) 2 mg IVP Q4 JOHNNIE PRN Reason: Protocol Last Admin: 12/30/17 22:02 Dose: 2 mg Metoprolol Tartrate (Lopressor) 25 mg PO BID [facility] Last Admin: 12/30/17 18:32 Dose: Not Given Multivitamins/Minerals (Therapeutic-M Tab) 1 tab PO 0800 [facility] Last Admin: 12/30/17 08:29 Dose: 1 tab Pantoprazole Sodium (Protonix Ec Tab) 40 mg PO 0600 [facility] Last Admin: 12/30/17 08:26 Dose: 40 mg Thiamine HCl (Vitamin B1 Tab) 100 mg PO DAILY [facility] Last Admin: 12/30/17 11:47 Dose: Not Given Ziprasidone (Geodon Inj) 10 mg IM Q8 PRN; Protocol PRN Reason: Agitation Last Admin: 12/30/17 11:44 Dose: 10 mg - Labs Labs: PT 13.3 SECONDS (9.4-12.5) H 12/27/17 22:57 INR 1.16 (0.93-1.08) H 12/27/17 22:57 APTT 32.2 Seconds (25.1-36.5) 12/27/17 22:57 Attending/Attestation - Attestation I have personally seen and examined this patient.: Yes I have fully participated in the care of the patient.: Yes I have reviewed all pertinent clinical information, including history, physical exam and plan: Yes Notes (Text): 12/30/17 22:58 47 year old male with past medical history of alcohol abuse who presented with complaint of hematemesis and melena, now resolved. H/H is stable. GI is following with no planned intervention. Continue with protonix and advance diet as tolerated. Hospital course complicated today with acute delirium / alcohol withdrawal. Continue with ativan johnnie/prn. Will add geodon prn for severe agitation +/- 1:1 observation for safety. He was counselled on alcohol abstinence. He also has elevated LFTs secondary to above. US abdomen was reviewed. Continue to monitor. Will replete and repeat lytes (potassium/magnesium). Codie Monsivais MD Hospitalist.
[2017-12-31] MEDS: Pantoprazole 40 mg EC Tab PO SCH (06:05)
[2017-12-31] MEDS: Insulin Lispro (humaLOG) LOW Coverage SC SCH ×3 (08:19→21:41)
[2017-12-31 08:24] LABS: BASO # 0.03 K/mm3 (0.0-2.0); BASO % 0.4 % (0.0-3.0); EOS # 0.1 (0.0-0.7); EOS % 1.2 % (1.5-5.0); GRAN # 5.15 (1.4-6.5); HEMOGLOBIN 12.1 g/dL (14.0-18.0); LYMPH # 1.7 (1.2-3.4); LYMPH % 22.7 % (22.0-35.0); MEAN CELL VOLUME 98.8 fl (80.0-105.0); MEAN CORPUSCULAR HEMOGLOBIN 35.2 pg (25.0-35.0); MEAN CORPUSCULAR HGB CONC 35.6 g/dl (31.0-37.0); MEAN PLATELET VOLUME 12.8 fl (7.0-11.0); MONO # 0.7 (0.1-0.6); MONO % 8.7 % (1.0-6.0); RBC 3.44 10^6/uL (3.5-6.1); RED CELL DISTRIBUTION WIDTH 15.1 % (11.5-14.5); WHITE BLOOD COUNT 7.7 10^3/ul (4.5-11.0)
[2017-12-31 08:42] LABS: ALB/GLOB RATIO 0.8 (1.1-1.8); ALT/SGPT 164 U/L (7-56); AST/SGOT 393 U/L (17-59); BLOOD UREA NITROGEN < 2 mg/dL (7-21); CALCIUM 9.9 mg/dL (8.4-10.5); GFR AFRICAN-AMERICAN > 60; GFR NON-AFRICAN AMERICAN > 60
[2017-12-31] MEDS: Dextrose 5%/0.45% NS 1,000 ML IV SCH ×2 (09:49→20:59)
--- NOTE | 2017-12-31 11:43 | PN ---
DATE: 12/31/2017 SUBJECTIVE: I saw Mr. Mccormick this morning. This is a 47-year-old white male, known to consultants, admitted with nausea, vomiting and abdominal pain, currently undergoing treatment for DTs. Patient is having delusions, shaking, and experiencing DTs at the bedside. NO hematemesis or rectal bleeding noted. I reviewed the note from Dr. Monsivais yesterday. Discussed this case with the telemetry nurse this morning. The orders are adequate at the current time point. Note that the patient needs an updated CMP as well as INR as blood work. Agree with current orders. Quinton Sawant DO, PhD MTDD
[2017-12-31] MEDS: Multivitamin With Minerals Tab PO SCH (12:41)
[2017-12-31] MEDS ORDERED: Potassium Chloride 20 mEq ER Tab PO STA (13:03)
[2017-12-31] MEDS ORDERED: Magnesium Sulfate 2 GM in Sodium Chloride 0.9% 100 ML IVPB ONE (14:57)
--- NOTE | 2017-12-31 15:14 | CP.PCM.PN ---
<Christopher Sylvester - Last Filed: 12/31/17 15:36> Subjective - Date & Time of Evaluation Date of Evaluation: 12/31/17 Time of Evaluation: 15:11 - Subjective Subjective: Medicine Progress Note: Patient seen and assessed at bedside. Patient noted to be agitated overnight and with visual hallucinations. Patient was administered PRN Ativan and these symptoms resolved. Patient noted to be HDS but lethargic when seen this AM and was unresponsive to questioning. ROS was unobtainable for this reason. Objective - Vital Signs/Intake and Output Vital Signs (last 24 hours): Temp Pulse Resp BP Pulse Ox 97.8 F 93 H 19 111/70 96 12/31/17 13:41 12/31/17 13:41 12/31/17 13:41 12/31/17 13:41 12/31/17 06:00 Intake and Output: 12/31/17 12/31/17 06:59 18:59 Intake Total 1790 Output Total 1000 Balance 790 - Medications Medications: Current Medications Folic Acid (Folic Acid) 1 mg PO DAILY [facility] Last Admin: 12/31/17 12:41 Dose: 1 mg Dextrose/Sodium Chloride (Dextrose 5%/0.45% Ns 1000 Ml) 1,000 mls @ 70 mls/hr IV .[id number] [facility] Last Admin: 12/31/17 09:49 Dose: 70 mls/hr Magnesium Sulfate 2 gm/ Sodium (Chloride) 104 mls @ 102 mls/hr IVPB ONCE ONE Stop: 12/31/17 15:58 Insulin Human Lispro (Humalog Low) 0 units SC ACHS [facility] PRN Reason: Protocol Last Admin: 12/31/17 11:50 Dose: Not Given Lorazepam (Ativan) 1 mg IVP Q2 PRN; Protocol PRN Reason: Agitation Last Admin: 12/30/17 16:15 Dose: 1 mg Lorazepam (Ativan) 2 mg IVP Q4 [facility] PRN Reason: Protocol Last Admin: 12/31/17 12:40 Dose: 2 mg Metoprolol Tartrate (Lopressor) 25 mg PO BID [facility] Last Admin: 12/31/17 12:41 Dose: 25 mg Multivitamins/Minerals (Therapeutic-M Tab) 1 tab PO 0800 [facility] Last Admin: 12/31/17 12:41 Dose: 1 tab Pantoprazole Sodium (Protonix Ec Tab) 40 mg PO 0600 [facility] Last Admin: 12/31/17 06:05 Dose: Not Given Thiamine HCl (Vitamin B1 Tab) 100 mg PO DAILY [facility] Last Admin: 12/31/17 12:41 Dose: 100 mg Ziprasidone (Geodon Inj) 10 mg IM Q8 PRN; Protocol PRN Reason: Agitation Last Admin: 12/31/17 00:10 Dose: 10 mg - Labs Labs: 12/31/17 08:00 12/31/17 08:00 PT 13.3 SECONDS (9.4-12.5) H 12/27/17 22:57 INR 1.16 (0.93-1.08) H 12/27/17 22:57 APTT 32.2 Seconds (25.1-36.5) 12/27/17 22:57 - Constitutional Appears: Non-toxic, No Acute Distress - Head Exam Head Exam: ATRAUMATIC, NORMAL INSPECTION, NORMOCEPHALIC - Eye Exam Eye Exam: Normal appearance, PERRL - ENT Exam ENT Exam: Mucous Membranes Moist, Normal Exam - Neck Exam Neck Exam: absent: Lymphadenopathy - Respiratory Exam Respiratory Exam: Clear to Ausculation Bilateral, NORMAL BREATHING PATTERN. absent: Accessory Muscle Use, Chest Wall Tenderness, Decreased Breath Sounds, Prolonged Expiratory Phase, Rales, Rhonchi, Wheezes, Respiratory Distress, Stridor - Cardiovascular Exam Cardiovascular Exam: REGULAR RHYTHM, RRR, +S1, +S2. absent: Bradycardia, Tachycardia, Clicks, Diastolic murmur, Gallop, Irregular Rhythm, JVD, Rubs, +S4 , Murmur - GI/Abdominal Exam GI & Abdominal Exam: Soft, Normal Bowel Sounds. absent: Bruit, Distended, Firm , Guarding, Rigid, Tenderness, Diminished Bowel Sounds, Hernia, Hyperactive Bowel Sounds, Hypoactive Bowel Sounds, Organomegaly, Pulsatile Mass, Rebound, Mass - Extremities Exam Extremities Exam: Full ROM, Normal Capillary Refill, Normal Inspection. absent : Calf Tenderness, Joint Swelling, Pedal Edema, Tenderness - Neurological Exam Neurological Exam: Altered. absent: Alert, Awake - Skin Skin Exam: Dry, Intact, Normal Color, Warm Assessment and Plan - Assessment and Plan (Free Text) Assessment: 47 year old male with a past medical history significant for alcohol abuse, HTN , and DM2 presents with several episodes of unwitnessed hematemesis and bloody bowel movements. Patient has had stable hemoglobin and hematocrit measures throughout admission to this point and remained HDS. GI consulted and not recommending any acute interventions from their standpoint at this time. Patient transitioned from clear liquid diet to full liquid diet. Patient is starting to experience symptoms of alcohol withdrawal, requiring restraints, increased dosages of ativan and geodon PRN. Plan: 1. Hematemesis/Melena/Hematochezia -Hemoglobin/Hematocrit stable throughout admission -Continue Protonix PO -Continue D5/HNS at 70mls/hr -Advanced to Regular Diet -Daily CBC to monitor anemia -GI consulted, all recommendations appreciated 2. Alcohol Abuse/Withdrawal -CIWA scores continue to increase -Continue Ativan 2mg IVP Q4 VÍCTOR and 1mg IVP Q2 PRN for symptoms of alcohol withdrawal -Continue Geodon 10mg IM Q8H PRN for agitation -Medical restraints as indicated -Thiamine, Folate and MV supplementation -CIWA assessments Q4 -Aspiration, Fall and Seizure precautions 3. Transaminitis -Abdomen Complete Ultrasound showing hepatic steatosis, hepatomegaly, and gallbladder wall thickening without stones or ductal dilatation -Total Bilirubin and AST/ALT/ALP all elevated beyond patients baseline but currently down trending -Daily CMP's to trend -GI consulted, all recommendations appreciated 4. History of DM2 -SSI-Low and Accuchecks ACHS 5. History of HTN -Continue Lopressor 25mg PO BID GI Prophylaxis: Protonix DVT Prophylaxis: SCD's Patient seen and case discussed with attending, Dr. Monsivais. <Codie Monsivais - Last Filed: 12/31/17 16:20> Objective - Vital Signs/Intake and Output Vital Signs (last 24 hours): Temp Pulse Resp BP Pulse Ox 97.8 F 93 H 19 111/70 96 12/31/17 13:41 12/31/17 13:41 12/31/17 13:41 12/31/17 13:41 12/31/17 06:00 Intake and Output: 12/31/17 12/31/17 06:59 18:59 Intake Total 1790 Output Total 1000 Balance 790 - Medications Medications: Current Medications Folic Acid (Folic Acid) 1 mg PO DAILY [facility] Last Admin: 12/31/17 12:41 Dose: 1 mg Dextrose/Sodium Chloride (Dextrose 5%/0.45% Ns 1000 Ml) 1,000 mls @ 70 mls/hr IV .[id number] [facility] Last Admin: 12/31/17 09:49 Dose: 70 mls/hr Insulin Human Lispro (Humalog Low) 0 units SC ACHS [facility] PRN Reason: Protocol Last Admin: 12/31/17 11:50 Dose: Not Given Lorazepam (Ativan) 1 mg IVP Q2 PRN; Protocol PRN Reason: Agitation Last Admin: 12/30/17 16:15 Dose: 1 mg Lorazepam (Ativan) 2 mg IVP Q4 [facility] PRN Reason: Protocol Last Admin: 12/31/17 12:40 Dose: 2 mg Metoprolol Tartrate (Lopressor) 25 mg PO BID [facility] Last Admin: 12/31/17 12:41 Dose: 25 mg Multivitamins/Minerals (Therapeutic-M Tab) 1 tab PO 0800 [facility] Last Admin: 12/31/17 12:41 Dose: 1 tab Pantoprazole Sodium (Protonix Ec Tab) 40 mg PO 0600 [facility] Last Admin: 12/31/17 06:05 Dose: Not Given Thiamine HCl (Vitamin B1 Tab) 100 mg PO DAILY [facility] Last Admin: 12/31/17 12:41 Dose: 100 mg Ziprasidone (Geodon Inj) 10 mg IM Q8 PRN; Protocol PRN Reason: Agitation Last Admin: 12/31/17 00:10 Dose: 10 mg - Labs Labs: 12/31/17 08:00 12/31/17 08:00 PT 13.3 SECONDS (9.4-12.5) H 12/27/17 22:57 INR 1.16 (0.93-1.08) H 12/27/17 22:57 APTT 32.2 Seconds (25.1-36.5) 12/27/17 22:57 Attending/Attestation - Attestation I have personally seen and examined this patient.: Yes I have fully participated in the care of the patient.: Yes I have reviewed all pertinent clinical information, including history, physical exam and plan: Yes Notes (Text): 12/31/17 16:18 47 year old male with past medical history of alcohol abuse who presented with complaint of hematemesis and melena, now resolved. H/H has been stable. GI is following with no planned intervention. Continue with protonix. His diet was advanced further today. Hospital course complicated with acute delirium / alcohol withdrawal. Overnight events were reviewed. Continue with ativan víctor/prn for withdrawal symptoms and geodon prn for severe agitation. He is on 1:1 observation for safety. He was counselled on alcohol abstinence. He also has elevated LFTs secondary to above. US abdomen was reviewed. Continue to monitor. Will replete and repeat lytes (potassium/magnesium). Codie Monsivais MD Hospitalist.
[2018-01-01] MEDS: Pantoprazole 40 mg EC Tab PO SCH (05:38)
[2018-01-01 06:37] LABS: BASO # 0.04 K/mm3 (0.0-2.0); BASO % 0.6 % (0.0-3.0); EOS # 0.2 (0.0-0.7); EOS % 2.6 % (1.5-5.0); GRAN # 4.01 (1.4-6.5); GRAN % 58.8 % (50.0-68.0); HEMOGLOBIN 11.8 g/dL (14.0-18.0); LYMPH % 29.9 % (22.0-35.0); MEAN CELL VOLUME 100.6 fl (80.0-105.0); MEAN CORPUSCULAR HEMOGLOBIN 34.8 pg (25.0-35.0); MEAN CORPUSCULAR HGB CONC 34.6 g/dl (31.0-37.0); MEAN PLATELET VOLUME 12.5 fl (7.0-11.0); MONO # 0.6 (0.1-0.6); MONO % 8.1 % (1.0-6.0); RBC 3.39 10^6/uL (3.5-6.1); RED CELL DISTRIBUTION WIDTH 15.5 % (11.5-14.5); WHITE BLOOD COUNT 6.8 10^3/ul (4.5-11.0)
[2018-01-01 07:04] LABS: ALB/GLOB RATIO 0.8 (1.1-1.8); ALBUMIN 3.6 g/dL (3.0-4.8); ALT/SGPT 133 U/L (7-56); AST/SGOT 266 U/L (17-59); BLOOD UREA NITROGEN 4 mg/dL (7-21); CALCIUM 9.6 mg/dL (8.4-10.5); GFR AFRICAN-AMERICAN > 60; GFR NON-AFRICAN AMERICAN > 60; MAGNESIUM 1.8 mg/dL (1.7-2.2)
[2018-01-01] MEDS: Insulin Lispro (humaLOG) LOW Coverage SC SCH ×4 (08:23→21:43)
[2018-01-01] MEDS: Multivitamin With Minerals Tab PO SCH (08:34)
[2018-01-01] MEDS: Dextrose 5%/0.45% NS 1,000 ML IV SCH (08:34)
[2018-01-01] MEDS ORDERED: guaiFENesin DM 100 mg-10 mg/5 ml UD PO PRN (11:18)
--- NOTE | 2018-01-01 11:52 | RAD ---
HISTORY: Cough. COMPARISON: 11/26/2017 FINDINGS: LUNGS: No active pulmonary disease. PLEURA: No significant pleural effusion identified, no pneumothorax apparent. CARDIOVASCULAR: Normal. OSSEOUS STRUCTURES: No significant abnormalities. VISUALIZED UPPER ABDOMEN: Normal. OTHER FINDINGS: None. IMPRESSION: No active disease. Unchanged
--- NOTE | 2018-01-01 12:39 | CP.PCM.PN ---
<Christopher Sylvester - Last Filed: 01/01/18 20:27> Subjective - Date & Time of Evaluation Date of Evaluation: 01/01/18 Time of Evaluation: 12:36 - Subjective Subjective: Medicine Progress Note: Patient seen and assessed at bedside. No acute events overnight reported by nursing staff or patient. Patient endorses that he is having a dry cough with intermittent SOB and denies any other complaints including fever, chills, headache, rhinorrhea, nasal congestion, sore throat, chest pain, palpitations, wheezing, sputum production, hemoptysis, abdominal pain, N/V/D/C, urinary symptoms, skin changes, or any numbness/tingling/weakness of any extremity. Objective - Vital Signs/Intake and Output Vital Signs (last 24 hours): Temp Pulse Resp BP Pulse Ox 99.5 F 84 20 127/79 95 01/01/18 12:00 01/01/18 12:00 01/01/18 12:00 01/01/18 12:00 01/01/18 05:50 Intake and Output: 01/01/18 01/01/18 06:59 18:59 Intake Total 1090 Output Total 500 Balance 590 - Medications Medications: Current Medications Folic Acid (Folic Acid) 1 mg PO DAILY [facility] Last Admin: 01/01/18 09:06 Dose: 1 mg Guaifenesin/Dextromethorphan (Robitussin Dm) 5 ml PO Q4H PRN PRN Reason: Cough Insulin Human Lispro (Humalog Low) 0 units SC ACHS V[facility]CTOR PRN Reason: Protocol Last Admin: 01/01/18 08:23 Dose: Not Given Lorazepam (Ativan) 1 mg IVP Q2 PRN; Protocol PRN Reason: Agitation Last Admin: 01/01/18 00:50 Dose: 1 mg Lorazepam (Ativan) 1 mg IVP Q4 [facility]CTOR PRN Reason: Protocol Metoprolol Tartrate (Lopressor) 25 mg PO BID [facility] Last Admin: 01/01/18 09:06 Dose: 25 mg Multivitamins/Minerals (Therapeutic-M Tab) 1 tab PO 0800 [facility] Last Admin: 01/01/18 08:34 Dose: 1 tab Pantoprazole Sodium (Protonix Ec Tab) 40 mg PO 0600 [facility] Last Admin: 01/01/18 05:38 Dose: Not Given Thiamine HCl (Vitamin B1 Tab) 100 mg PO DAILY [facility] Last Admin: 01/01/18 09:06 Dose: 100 mg Ziprasidone (Geodon Inj) 10 mg IM Q8 PRN; Protocol PRN Reason: Agitation Last Admin: 01/01/18 02:06 Dose: 10 mg - Labs Labs: 01/01/18 06:00 01/01/18 06:00 PT 13.3 SECONDS (9.4-12.5) H 12/27/17 22:57 INR 1.16 (0.93-1.08) H 12/27/17 22:57 APTT 32.2 Seconds (25.1-36.5) 12/27/17 22:57 - Constitutional Appears: Non-toxic, No Acute Distress - Head Exam Head Exam: ATRAUMATIC, NORMAL INSPECTION, NORMOCEPHALIC - Eye Exam Eye Exam: EOMI, Normal appearance, PERRL - ENT Exam ENT Exam: Mucous Membranes Moist, Normal Exam - Neck Exam Neck Exam: Full ROM, Normal Inspection. absent: Lymphadenopathy - Respiratory Exam Respiratory Exam: NORMAL BREATHING PATTERN. absent: Accessory Muscle Use, Chest Wall Tenderness, Decreased Breath Sounds, Clear to Ausculation Bilateral ( Harsh breath sounds on inspiration with no obvious rales, rhonchi or wheezing), Prolonged Expiratory Phase, Rales, Rhonchi, Wheezes, Respiratory Distress, Stridor - Cardiovascular Exam Cardiovascular Exam: REGULAR RHYTHM, RRR, +S1, +S2. absent: Bradycardia, Tachycardia - GI/Abdominal Exam GI & Abdominal Exam: Soft, Normal Bowel Sounds. absent: Tenderness - Extremities Exam Extremities Exam: Full ROM, Normal Capillary Refill, Normal Inspection. absent : Calf Tenderness, Joint Swelling, Pedal Edema - Back Exam Back Exam: NORMAL INSPECTION - Neurological Exam Neurological Exam: Alert, Awake, Oriented x3 - Psychiatric Exam Psychiatric exam: Normal Affect, Normal Mood - Skin Skin Exam: Dry, Intact, Normal Color, Warm Assessment and Plan - Assessment and Plan (Free Text) Assessment: 47 year old male with a past medical history significant for alcohol abuse, HTN , and DM2 presents with several episodes of unwitnessed hematemesis and bloody bowel movements. Patient has had stable hemoglobin and hematocrit measures throughout admission to this point and remained HDS. GI consulted and not recommending any acute interventions from their standpoint at this time. Patient transitioned from clear liquid diet to full liquid diet. Patient continues to experience symptoms of alcohol withdrawal, requiring intermittent restraints, ativan and PRN geodon, but these interventions are being needed at a progressively declining rate. Patient with improving CIWA scores and is appropriate for tapering of Ativan at this time. Plan: 1. Alcohol Abuse/Withdrawal -CIWA scores decreasing over the past 24 hours -Tapered Ativan to 1mg IVP Q4 VÍCTOR and 1mg IVP Q2 PRN for symptoms of alcohol withdrawal -Continue Geodon 10mg IM Q8H PRN for agitation -Medical restraints as indicated -Thiamine, Folate and MV supplementation -CIWA assessments Q4 -Aspiration, Fall and Seizure precautions 2. Non-Productive Cough -Chest X-Ray showing no active pulmonary disease -Robitussin PRN 3. Hematemesis/Melena/Hematochezia -Hemoglobin/Hematocrit stable throughout admission -Continue Protonix PO -Regular Diet -Daily CBC to monitor anemia -GI consulted, all recommendations appreciated 4. Transaminitis -Abdomen Complete Ultrasound showing hepatic steatosis, hepatomegaly, and gallbladder wall thickening without stones or ductal dilatation -Total Bilirubin and AST/ALT/ALP all elevated beyond patients baseline but continuing to trend downwards -Daily CMP's to trend -GI consulted, all recommendations appreciated 5. History of DM2 -SSI-Low and Accuchecks ACHS 6. History of HTN -Continue Lopressor 25mg PO BID GI Prophylaxis: Protonix DVT Prophylaxis: SCD's Patient seen and case discussed with attending, Dr. Monsivais. <Codie Monsivais - Last Filed: 01/02/18 07:28> Objective - Vital Signs/Intake and Output Vital Signs (last 24 hours): Temp Pulse Resp BP Pulse Ox 98.9 F 78 20 105/66 95 01/01/18 17:32 01/02/18 06:00 01/01/18 17:32 01/01/18 18:47 01/01/18 05:50 Intake and Output: 01/02/18 01/02/18 06:59 18:59 Intake Total 120 Output Total 400 Balance -280 - Medications Medications: Current Medications Folic Acid (Folic Acid) 1 mg PO DAILY [facility] Last Admin: 01/01/18 09:06 Dose: 1 mg Guaifenesin/Dextromethorphan (Robitussin Dm) 5 ml PO Q4H PRN PRN Reason: Cough Insulin Human Lispro (Humalog Low) 0 units SC ACHS [facility] PRN Reason: Protocol Last Admin: 01/01/18 21:43 Dose: Not Given Lorazepam (Ativan) 1 mg IVP Q2 PRN; Protocol PRN Reason: Agitation Last Admin: 01/01/18 00:50 Dose: 1 mg Lorazepam (Ativan) 1 mg IVP Q4 [facility] PRN Reason: Protocol Last Admin: 01/02/18 05:30 Dose: Not Given Metoprolol Tartrate (Lopressor) 25 mg PO BID [facility] Last Admin: 01/01/18 18:47 Dose: Not Given Multivitamins/Minerals (Therapeutic-M Tab) 1 tab PO 0800 [facility] Last Admin: 01/01/18 08:34 Dose: 1 tab Pantoprazole Sodium (Protonix Ec Tab) 40 mg PO 0600 [facility] Last Admin: 01/02/18 05:37 Dose: 40 mg Thiamine HCl (Vitamin B1 Tab) 100 mg PO DAILY [facility] Last Admin: 01/01/18 09:06 Dose: 100 mg Ziprasidone (Geodon Inj) 10 mg IM Q8 PRN; Protocol PRN Reason: Agitation Last Admin: 01/01/18 02:06 Dose: 10 mg - Labs Labs: 01/02/18 06:00 01/01/18 06:00 PT 13.3 SECONDS (9.4-12.5) H 12/27/17 22:57 INR 1.16 (0.93-1.08) H 12/27/17 22:57 APTT 32.2 Seconds (25.1-36.5) 12/27/17 22:57 Attending/Attestation - Attestation I have personally seen and examined this patient.: Yes I have fully participated in the care of the patient.: Yes I have reviewed all pertinent clinical information, including history, physical exam and plan: Yes Notes (Text): 01/01/18 47 year old male with past medical history of alcohol abuse who presented with complaint of hematemesis and melena, now resolved. H/H has been stable. GI is following with no planned intervention. Continue with protonix. Continue with diet as tolerated. Hospital course complicated with acute delirium / alcohol withdrawal. Continue with ativan víctor/prn taper for withdrawal symptoms and geodon prn for severe agitation. He is on 1:1 observation for safety. He was counselled on alcohol abstinence. He also has transaminitis secondary to above. LFTs are slowly improving. US abdomen was reviewed. Continue to monitor. Codie Monsivais MD Hospitalist.
--- NOTE | 2018-01-01 16:08 | PN ---
DATE: 01/01/2018 SUBJECTIVE: I reviewed the clinical course of Mr. Mccormick with the nurses on the unit today. Patient is still having visual hallucinations. He is on the process of DTs. Reviewed the notes of the other consultants, and the orders appeared to be adequate. The patient's transaminases have come down somewhat; however, bilirubin is still mildly increased. Patient is apparently eating meals with no difficulty. Still experiencing significant agitation throughout the day. Quinton Sawant DO, PhD KAMILAH
[2018-01-02] MEDS: Pantoprazole 40 mg EC Tab PO SCH (05:37)
[2018-01-02 07:17] LABS: BASO # 0.06 K/mm3 (0.0-2.0); BASO % 0.8 % (0.0-3.0); EOS # 0.2 (0.0-0.7); EOS % 2.9 % (1.5-5.0); GRAN # 4.06 (1.4-6.5); GRAN % 52.7 % (50.0-68.0); HEMOGLOBIN 12.2 g/dL (14.0-18.0); LYMPH # 2.6 (1.2-3.4); LYMPH % 33.1 % (22.0-35.0); MEAN CELL VOLUME 99.7 fl (80.0-105.0); MEAN CORPUSCULAR HEMOGLOBIN 34.9 pg (25.0-35.0); MEAN PLATELET VOLUME 11.8 fl (7.0-11.0); MONO # 0.8 (0.1-0.6); MONO % 10.5 % (1.0-6.0); RBC 3.5 10^6/uL (3.5-6.1); RED CELL DISTRIBUTION WIDTH 15.9 % (11.5-14.5); WHITE BLOOD COUNT 7.7 10^3/ul (4.5-11.0)
[2018-01-02 07:49] LABS: ALB/GLOB RATIO 0.8 (1.1-1.8); ALBUMIN 3.9 g/dL (3.0-4.8); ALT/SGPT 128 U/L (7-56); AST/SGOT 215 U/L (17-59); BLOOD UREA NITROGEN 11 mg/dL (7-21); CALCIUM 10.2 mg/dL (8.4-10.5); GFR AFRICAN-AMERICAN > 60; GFR NON-AFRICAN AMERICAN > 60; MAGNESIUM 1.5 mg/dL (1.7-2.2)
--- NOTE | 2018-01-02 08:48 | CP.PCM.PN ---
<Chelsey Barnard - Last Filed: 01/02/18 11:51> Subjective - Date & Time of Evaluation Date of Evaluation: 01/02/18 Time of Evaluation: 08:00 - Subjective Subjective: PGY-[address] Monsivais Pt states that he hears things at night but forgot the content. urine dark selina. + sweat, tremor, agitation. No acute complaint Objective - Vital Signs/Intake and Output Vital Signs (last 24 hours): Temp Pulse Resp BP Pulse Ox 98.9 F 78 20 105/66 95 01/01/18 17:32 01/02/18 06:00 01/01/18 17:32 01/01/18 18:47 01/01/18 05:50 Intake and Output: 01/02/18 01/02/18 06:59 18:59 Intake Total 120 Output Total 400 Balance -280 - Medications Medications: Current Medications Folic Acid (Folic Acid) 1 mg PO DAILY [facility] Last Admin: 01/01/18 09:06 Dose: 1 mg Guaifenesin/Dextromethorphan (Robitussin Dm) 5 ml PO Q4H PRN PRN Reason: Cough Insulin Human Lispro (Humalog Low) 0 units SC ACHS [facility]OHNNIE PRN Reason: Protocol Last Admin: 01/01/18 21:43 Dose: Not Given Lorazepam (Ativan) 1 mg IVP Q2 PRN; Protocol PRN Reason: Agitation Last Admin: 01/01/18 00:50 Dose: 1 mg Lorazepam (Ativan) 1 mg IVP Q4 [facility] PRN Reason: Protocol Last Admin: 01/02/18 05:30 Dose: Not Given Magnesium Oxide (Mag-Ox) 400 mg PO ONCE ONE Stop: 01/02/18 09:01 Metoprolol Tartrate (Lopressor) 25 mg PO BID [facility] Last Admin: 01/01/18 18:47 Dose: Not Given Multivitamins/Minerals (Therapeutic-M Tab) 1 tab PO 0800 [facility] Last Admin: 01/01/18 08:34 Dose: 1 tab Pantoprazole Sodium (Protonix Ec Tab) 40 mg PO 0600 [facility] Last Admin: 01/02/18 05:37 Dose: 40 mg Thiamine HCl (Vitamin B1 Tab) 100 mg PO DAILY [facility] Last Admin: 01/01/18 09:06 Dose: 100 mg Ziprasidone (Geodon Inj) 10 mg IM Q8 PRN; Protocol PRN Reason: Agitation Last Admin: 01/01/18 02:06 Dose: 10 mg - Labs Labs: 01/02/18 06:00 01/02/18 06:00 PT 13.3 SECONDS (9.4-12.5) H 12/27/17 22:57 INR 1.16 (0.93-1.08) H 12/27/17 22:57 APTT 32.2 Seconds (25.1-36.5) 12/27/17 22:57 - Constitutional Appears: No Acute Distress - Head Exam Head Exam: ATRAUMATIC, NORMAL INSPECTION, NORMOCEPHALIC - Eye Exam Eye Exam: EOMI, Normal appearance, PERRL. absent: Scleral icterus Pupil Exam: NORMAL ACCOMODATION - ENT Exam ENT Exam: Mucous Membranes Moist - Respiratory Exam Respiratory Exam: Clear to Ausculation Bilateral, NORMAL BREATHING PATTERN. absent: Rales, Rhonchi, Wheezes - Cardiovascular Exam Cardiovascular Exam: REGULAR RHYTHM, +S1, +S2. absent: Murmur - GI/Abdominal Exam GI & Abdominal Exam: Soft, Tenderness (mild, deep palpation RUQ), Normal Bowel Sounds. absent: Guarding, Rigid - Extremities Exam Extremities Exam: absent: Calf Tenderness, Pedal Edema Additional comments: + hand tremors - Neurological Exam Neurological Exam: Alert, Awake, Oriented x3 - Psychiatric Exam Psychiatric exam: Normal Affect, Normal Mood - Skin Skin Exam: Dry, Warm Assessment and Plan - Assessment and Plan (Free Text) Plan: 47 year old male with a past medical history significant for alcohol abuse, HTN , and DM2 presents with several episodes of unwitnessed hematemesis and bloody bowel movements. Patient has had stable hemoglobin and hematocrit measures throughout admission to this point and remained HDS. GI consulted and not recommending any acute interventions from their standpoint at this time. Patient transitioned from clear liquid diet to full liquid diet. Patient continues to experience symptoms of alcohol withdrawal, requiring intermittent restraints, ativan and PRN geodon, but these interventions are being needed at a progressively declining rate. Patient with improving CIWA scores and is appropriate for tapering of Ativan at this time. 1. Alcohol Abuse/Withdrawal - Will consider d/c 1:1 in late afternoon - No need geodon at night. -Tapered Ativan to 1mg IVP Q6 JOHNNIE and 1mg IVP Q2 PRN for symptoms of alcohol withdrawal; CIWA q6 -Continue Geodon 10mg IM Q8H PRN for agitation -Not on Medical restraints -Thiamine, Folate and MV supplementation -CIWA assessments Q4 -Aspiration, Fall and Seizure precautions 2. Non-Productive Cough -Chest X-Ray showing no active pulmonary disease -Robitussin PRN 3. Hematemesis/Melena/Hematochezia -Hemoglobin/Hematocrit stable throughout admission -Continue Protonix PO -Regular Diet -Daily CBC to monitor anemia -GI consulted, all recommendations appreciated 4. Transaminitis -Abdomen Complete Ultrasound showing hepatic steatosis, hepatomegaly, and gallbladder wall thickening without stones or ductal dilatation -Total Bilirubin and AST/ALT/ALP all elevated beyond patients baseline but continuing to trend downwards -Daily CMP's to trend -GI consulted, all recommendations appreciated 5. History of DM2 -SSI-Low and Accuchecks ACHS 6. History of HTN -Continue Lopressor 25mg PO BID GI Prophylaxis: Protonix DVT Prophylaxis: SCD's Patient seen and case discussed with attending, Dr. Monsivais. <Codie Monsivais - Last Filed: 01/02/18 16:40> Objective - Vital Signs/Intake and Output Vital Signs (last 24 hours): Temp Pulse Resp BP Pulse Ox 98.9 F 75 20 117/79 95 01/01/18 17:32 01/02/18 10:00 01/01/18 17:32 01/02/18 09:28 01/01/18 05:50 Intake and Output: 01/02/18 01/02/18 06:59 18:59 Intake Total 120 540 Output Total 400 Balance -280 540 - Medications Medications: Current Medications Folic Acid (Folic Acid) 1 mg PO DAILY [facility] Last Admin: 01/02/18 09:27 Dose: 1 mg Guaifenesin/Dextromethorphan (Robitussin Dm) 5 ml PO Q4H PRN PRN Reason: Cough Insulin Human Lispro (Humalog Low) 0 units SC ACHS [facility]OHNNIE PRN Reason: Protocol Last Admin: 01/02/18 12:00 Dose: Not Given Lorazepam (Ativan) 1 mg IVP Q2 PRN; Protocol PRN Reason: Agitation Last Admin: 01/01/18 00:50 Dose: 1 mg Lorazepam (Ativan) 1 mg IVP Q6 [facility] PRN Reason: Protocol Last Admin: 01/02/18 14:08 Dose: 1 mg Metoprolol Tartrate (Lopressor) 25 mg PO BID [facility] Last Admin: 01/02/18 09:28 Dose: 25 mg Multivitamins/Minerals (Therapeutic-M Tab) 1 tab PO 0800 [facility] Last Admin: 01/02/18 09:31 Dose: 1 tab Pantoprazole Sodium (Protonix Ec Tab) 40 mg PO 0600 [facility] Last Admin: 01/02/18 05:37 Dose: 40 mg Thiamine HCl (Vitamin B1 Tab) 100 mg PO DAILY [facility] Last Admin: 01/02/18 09:31 Dose: 100 mg Ziprasidone (Geodon Inj) 10 mg IM Q8 PRN; Protocol PRN Reason: Agitation Last Admin: 01/01/18 02:06 Dose: 10 mg - Labs Labs: 01/02/18 06:00 01/02/18 06:00 PT 13.3 SECONDS (9.4-12.5) H 12/27/17 22:57 INR 1.16 (0.93-1.08) H 12/27/17 22:57 APTT 32.2 Seconds (25.1-36.5) 12/27/17 22:57 Attending/Attestation - Attestation I have personally seen and examined this patient.: Yes I have fully participated in the care of the patient.: Yes I have reviewed all pertinent clinical information, including history, physical exam and plan: Yes Notes (Text): 01/02/18 16:37 47 year old male with past medical history of alcohol abuse who presented with complaint of hematemesis and melena, now resolved. H/H has been stable. GI is following with no planned intervention. Continue with protonix. Continue with diet as tolerated. Hospital course complicated with acute delirium / alcohol withdrawal which is slowly improving with ativan johnnie/prn taper. Consider to d/c 1:1 observation today if no issues with agitation. He was counselled on alcohol abstinence. He also has transaminitis secondary to above. LFTs have been improving. US abdomen was reviewed. Continue to monitor. Will replete and repeat magnesium. Codie oMnsivais MD Hospitalist.
[2018-01-02] MEDS ORDERED: Magnesium Oxide 400 mg Tab UD PO ONE (09:00)
[2018-01-02] MEDS: Insulin Lispro (humaLOG) LOW Coverage SC SCH ×4 (09:28→21:53)
[2018-01-02] MEDS: Multivitamin With Minerals Tab PO SCH (09:31)
--- NOTE | 2018-01-02 13:29 | PN ---
DATE: 01/02/2018 SUBJECTIVE: Mr. Mccormick was seen at the bedside this morning. I discussed this case with the nurses on the floor. The patient is still experiencing some delusions. Still admits to have DTs. The patient denied any abdominal pain, nausea. He is eating, but still experienced shaking. No episodes of hematemesis or rectal bleeding noted. I reviewed the respective notes of different consultants seeing this patient. LABORATORY DATA: Evaluation of laboratory data indicates most recent AST/ALT ratio of 266 AST, ALT 133 with an alkaline phosphatase of 293, bilirubin of 4.9. His most recent INR is 1.16. Hemoglobin is stable with a platelet count of 128. OVERALL ASSESSMENT: This is a 47-year-old white male, chronic alcoholic, history of excessive alcohol abuse, but currently being treated for delirium tremens. I agree with the current orders. We will continue on the current regimen. We will sign off today since LFT trend seems to be going down. Quinton Sawant DO, PhD KAMILAH
[2018-01-02 17:30] VITALS: O2SAT 98
[2018-01-03] MEDS: Pantoprazole 40 mg EC Tab PO SCH (05:47)
[2018-01-03 06:27] VITALS: PULSE 76
[2018-01-03 06:33] LABS: BASO # 0.08 K/mm3 (0.0-2.0); EOS # 0.2 (0.0-0.7); EOS % 2.3 % (1.5-5.0); GRAN # 4.05 (1.4-6.5); GRAN % 52.4 % (50.0-68.0); HEMOGLOBIN 12.2 g/dL (14.0-18.0); LYMPH # 2.4 (1.2-3.4); LYMPH % 31.6 % (22.0-35.0); MEAN CELL VOLUME 98.6 fl (80.0-105.0); MEAN CORPUSCULAR HEMOGLOBIN 34.9 pg (25.0-35.0); MEAN CORPUSCULAR HGB CONC 35.4 g/dl (31.0-37.0); MEAN PLATELET VOLUME 11.8 fl (7.0-11.0); MONO % 12.7 % (1.0-6.0); RBC 3.5 10^6/uL (3.5-6.1); RED CELL DISTRIBUTION WIDTH 16.4 % (11.5-14.5); WHITE BLOOD COUNT 7.7 10^3/ul (4.5-11.0)
[2018-01-03 06:45] LABS: ALB/GLOB RATIO 0.8 (1.1-1.8); ALT/SGPT 110 U/L (7-56); AST/SGOT 211 U/L (17-59); BLOOD UREA NITROGEN 14 mg/dL (7-21); CALCIUM 10.2 mg/dL (8.4-10.5); GFR AFRICAN-AMERICAN > 60; GFR NON-AFRICAN AMERICAN > 60; MAGNESIUM 1.6 mg/dL (1.7-2.2)
[2018-01-03] MEDS ORDERED: Magnesium Sulfate 2 GM in Sodium Chloride 0.9% 100 ML IVPB ONE (07:09)
[2018-01-03 08:20] VITALS: BP 107/76; RESP 20; TEMP 98.1
[2018-01-03] MEDS: Insulin Lispro (humaLOG) LOW Coverage SC SCH (09:24)
[2018-01-03] MEDS: Multivitamin With Minerals Tab PO SCH (09:27)
--- NOTE | 2018-01-03 19:28 | CP.PCM.DIS ---
<Christopher Sylvester - Last Filed: 01/03/18 19:25> Provider - Provider Date of Admission: 12/30/17 13:53 Attending physician: Codie Monsivais MD Consults: CHRIS Lujan Time Spent in preparation of Discharge (in minutes): 46 Hospital Course - Lab Results Lab Results: Most Recent Lab Values WBC 7.7 10^3/ul (4.5-11.0) 01/03/18 06:00 RBC 3.50 10^6/uL (3.5-6.1) 01/03/18 06:00 Hgb 12.2 g/dL (14.0-18.0) L 01/03/18 06:00 Hct 34.5 % (42.0-52.0) L 01/03/18 06:00 MCV 98.6 fl (80.0-105.0) 01/03/18 06:00 MCH 34.9 pg (25.0-35.0) 01/03/18 06:00 MCHC 35.4 g/dl (31.0-37.0) 01/03/18 06:00 RDW 16.4 % (11.5-14.5) H 01/03/18 06:00 Plt Count 180 10^3/uL (120.0-450.0) 01/03/18 06:00 MPV 11.8 fl (7.0-11.0) H 01/03/18 06:00 Gran % 52.4 % (50.0-68.0) 01/03/18 06:00 Lymph % (Auto) 31.6 % (22.0-35.0) 01/03/18 06:00 [place] % (Auto) 12.7 % (1.0-6.0) H 01/03/18 06:00 Eos % (Auto) 2.3 % (1.5-5.0) 01/03/18 06:00 Baso % (Auto) 1.0 % (0.0-3.0) 01/03/18 06:00 Gran # 4.05 (1.4-6.5) 01/03/18 06:00 Lymph # (Auto) 2.4 (1.2-3.4) 01/03/18 06:00 [place] # (Auto) 1.0 (0.1-0.6) H 01/03/18 06:00 Eos # (Auto) 0.2 (0.0-0.7) 01/03/18 06:00 Baso # (Auto) 0.08 K/mm3 (0.0-2.0) 01/03/18 06:00 PT 13.3 SECONDS (9.4-12.5) H 12/27/17 22:57 INR 1.16 (0.93-1.08) H 12/27/17 22:57 APTT 32.2 Seconds (25.1-36.5) 12/27/17 22:57 Sodium 137 mmol/L (132-148) 01/03/18 06:00 Potassium 4.0 mmol/L (3.6-5.0) 01/03/18 06:00 Chloride 99 mmol/L (98-107) 01/03/18 06:00 Carbon Dioxide 25 mmol/L (21-33) 01/03/18 06:00 Anion Gap 18 (10-20) 01/03/18 06:00 BUN 14 mg/dL (7-21) 01/03/18 06:00 Creatinine 0.8 mg/dl (0.8-1.5) 01/03/18 06:00 Est GFR ( Amer) > 60 01/03/18 06:00 Est GFR (Non-Af Amer) > 60 01/03/18 06:00 POC Glucose (mg/dL) 98 mg/dL (65-110) 01/03/18 08:03 Random Glucose 104 mg/dL (70-110) 01/03/18 06:00 Calcium 10.2 mg/dL (8.4-10.5) 01/03/18 06:00 Magnesium 1.6 mg/dL (1.7-2.2) L 01/03/18 06:00 Total Bilirubin 3.8 mg/dL (0.2-1.3) H 01/03/18 06:00 AST 211 U/L (17-59) H 01/03/18 06:00 ALT 110 U/L (7-56) H 01/03/18 06:00 Alkaline Phosphatase 289 U/L (38-126) H 01/03/18 06:00 Lactate Dehydrogenase 931 U/L (333-699) H 12/27/17 22:57 Total Creatine Kinase 194 U/L (35-230) 12/27/17 22:57 Troponin I 0.02 ng/mL D 12/27/17 22:57 Total Protein 9.0 g/dL (5.8-8.3) H 01/03/18 06:00 Albumin 4.0 g/dL (3.0-4.8) 01/03/18 06:00 Globulin 5.0 gm/dL 01/03/18 06:00 Albumin/Globulin Ratio 0.8 (1.1-1.8) L 01/03/18 06:00 Urine Color Yellow (YELLOW) 12/28/17 20:50 Urine Appearance Clear (CLEAR) 12/28/17 20:50 Urine pH 6.0 (4.7-8.0) 12/28/17 20:50 Ur Specific [place] 1.020 (1.005-1.035) 12/28/17 20:50 Urine Protein Negative mg/dL (<30 mg/dL) 12/28/17 20:50 Urine Glucose (UA) Negative mg/dL (NEGATIVE) 12/28/17 20:50 Urine Ketones Negative mg/dL (NEGATIVE) 12/28/17 20:50 Urine Blood Trace-lysed (NEGATIVE) H 12/28/17 20:50 Urine Nitrate Negative (NEGATIVE) 12/28/17 20:50 Urine Bilirubin Small (NEGATIVE) H 12/28/17 20:50 Urine Urobilinogen 0.2 E.U./dL (<1 E.U./dL) 12/28/17 20:50 Ur Leukocyte Esterase Negative Ty/uL (NEGATIVE) 12/28/17 20:50 Urine RBC 1 - 3 /hpf (0-2) 12/28/17 20:50 Urine WBC Negative /hpf (0-6) 12/28/17 20:50 Ur Epithelial Cells 1 - 3 /hpf (0-5) 12/28/17 20:50 Urine Bacteria Trace (NEG) 12/28/17 20:50 Alcohol, Quantitative 341 mg/dL (0-10) H* 12/27/17 23:50 Blood Type A POSITIVE 12/27/17 22:57 Antibody Screen Negative 12/27/17 22:57 BBK History Checked Patient has bt 12/27/17 22:57 - Hospital Course Hospital Course: 47 year old male with a past medical history significant for alcohol abuse, HTN , and DM2 presents with several episodes of unwitnessed hematemesis and bloody bowel movements. Patient had stable hemoglobin and hematocrit measures throughout admission. Patient was started on Protonix drip and was eventually transitioned to PO Protonix. GI consulted and did not recommend any acute interventions. Patient transitioned from NPO to regular diet. Patient experienced symptoms of alcohol withdrawal, requiring intermittent restraints, PRN and scheduled ativan and PRN geodon, but these interventions were needed at a progressively declining rate with tapering of his ativan doses based on CIWA scores. Patient was discharged on 01/03/18 with instructions for alcohol cessation and instructions to follow up at the [facility] at [facility] [place]. - Date & Time of H&P Date of H&P: 12/28/17 Time of H&P: 18:15 Discharge Exam - Head Exam Head Exam: ATRAUMATIC, NORMAL INSPECTION, NORMOCEPHALIC - Eye Exam Eye Exam: EOMI, Normal appearance, PERRL Pupil Exam: NORMAL ACCOMODATION, PERRL - ENT Exam ENT Exam: Mucous Membranes Moist - Neck Exam Neck exam: Full Rom - Respiratory Exam Respiratory Exam: Clear to PA & Lateral, NORMAL BREATHING PATTERN, UNREMARKABLE - Cardiovascular Exam Cardiovascular Exam: REGULAR RHYTHM - GI/Abdominal Exam GI & Abdominal Exam: Normal Bowel Sounds, Unremarkable. absent: Tenderness - Extremities Exam Extremities exam: normal capillary refill, normal inspection, pedal pulses present - Back Exam Back exam: FULL ROM, NORMAL INSPECTION - Neurological Exam Neurological exam: Alert, CN II-XII Intact, Normal Gait, Oriented x3 - Psychiatric Exam Psychiatric exam: Normal Affect, Normal Mood - Skin Skin Exam: Dry, Intact, Normal Color, Warm Discharge Plan - Follow Up Plan Condition: STABLE Disposition: HOME/ ROUTINE Instructions: Alcohol Use - When Is Drinking a Problem?, Alcohol Withdrawal (DC ), Alcohol Abuse and Alcoholism (DC), Effects of Alcohol on Your Health, Alcohol Use Disorder (DC) Additional Instructions: Please follow up with the [facility] at [facility] [place] within one week for post discharge follow up Please take all medications as prescribed If your symptoms should persist or worsen, please seek emergency medical attention <Codie Monsivais - Last Filed: 01/04/18 12:19> Provider - Provider Date of Admission: 12/30/17 13:53 Attending physician: Codie Monsivais MD [facility] Course - Lab Results Lab Results: Most Recent Lab Values WBC 7.7 10^3/ul (4.5-11.0) 01/03/18 06:00 RBC 3.50 10^6/uL (3.5-6.1) 01/03/18 06:00 Hgb 12.2 g/dL (14.0-18.0) L 01/03/18 06:00 Hct 34.5 % (42.0-52.0) L 01/03/18 06:00 MCV 98.6 fl (80.0-105.0) 01/03/18 06:00 MCH 34.9 pg (25.0-35.0) 01/03/18 06:00 MCHC 35.4 g/dl (31.0-37.0) 01/03/18 06:00 RDW 16.4 % (11.5-14.5) H 01/03/18 06:00 Plt Count 180 10^3/uL (120.0-450.0) 01/03/18 06:00 MPV 11.8 fl (7.0-11.0) H 01/03/18 06:00 Gran % 52.4 % (50.0-68.0) 01/03/18 06:00 Lymph % (Auto) 31.6 % (22.0-35.0) 01/03/18 06:00 [place] % (Auto) 12.7 % (1.0-6.0) H 01/03/18 06:00 Eos % (Auto) 2.3 % (1.5-5.0) 01/03/18 06:00 Baso % (Auto) 1.0 % (0.0-3.0) 01/03/18 06:00 Gran # 4.05 (1.4-6.5) 01/03/18 06:00 Lymph # (Auto) 2.4 (1.2-3.4) 01/03/18 06:00 [place] # (Auto) 1.0 (0.1-0.6) H 01/03/18 06:00 Eos # (Auto) 0.2 (0.0-0.7) 01/03/18 06:00 Baso # (Auto) 0.08 K/mm3 (0.0-2.0) 01/03/18 06:00 PT 13.3 SECONDS (9.4-12.5) H 12/27/17 22:57 INR 1.16 (0.93-1.08) H 12/27/17 22:57 APTT 32.2 Seconds (25.1-36.5) 12/27/17 22:57 Sodium 137 mmol/L (132-148) 01/03/18 06:00 Potassium 4.0 mmol/L (3.6-5.0) 01/03/18 06:00 Chloride 99 mmol/L (98-107) 01/03/18 06:00 Carbon Dioxide 25 mmol/L (21-33) 01/03/18 06:00 Anion Gap 18 (10-20) 01/03/18 06:00 BUN 14 mg/dL (7-21) 01/03/18 06:00 Creatinine 0.8 mg/dl (0.8-1.5) 01/03/18 06:00 Est GFR ( Amer) > 60 01/03/18 06:00 Est GFR (Non-Af Amer) > 60 01/03/18 06:00 POC Glucose (mg/dL) 98 mg/dL (65-110) 01/03/18 08:03 Random Glucose 104 mg/dL (70-110) 01/03/18 06:00 Calcium 10.2 mg/dL (8.4-10.5) 01/03/18 06:00 Magnesium 1.6 mg/dL (1.7-2.2) L 01/03/18 06:00 Total Bilirubin 3.8 mg/dL (0.2-1.3) H 01/03/18 06:00 AST 211 U/L (17-59) H 01/03/18 06:00 ALT 110 U/L (7-56) H 01/03/18 06:00 Alkaline Phosphatase 289 U/L (38-126) H 01/03/18 06:00 Lactate Dehydrogenase 931 U/L (333-699) H 12/27/17 22:57 Total Creatine Kinase 194 U/L (35-230) 12/27/17 22:57 Troponin I 0.02 ng/mL D 02/09/18 22:57 Total Protein 9.0 g/dL (5.8-8.3) H 01/03/18 06:00 Albumin 4.0 g/dL (3.0-4.8) 01/03/18 06:00 Globulin 5.0 gm/dL 01/03/18 06:00 Albumin/Globulin Ratio 0.8 (1.1-1.8) L 01/03/18 06:00 Urine Color Yellow (YELLOW) 12/28/17 20:50 Urine Appearance Clear (CLEAR) 12/28/17 20:50 Urine pH 6.0 (4.7-8.0) 12/28/17 20:50 Ur Specific [place] 1.020 (1.005-1.035) 12/28/17 20:50 Urine Protein Negative mg/dL (<30 mg/dL) 12/28/17 20:50 Urine Glucose (UA) Negative mg/dL (NEGATIVE) 12/28/17 20:50 Urine Ketones Negative mg/dL (NEGATIVE) 12/28/17 20:50 Urine Blood Trace-lysed (NEGATIVE) H 12/28/17 20:50 Urine Nitrate Negative (NEGATIVE) 12/28/17 20:50 Urine Bilirubin Small (NEGATIVE) H 12/28/17 20:50 Urine Urobilinogen 0.2 E.U./dL (<1 E.U./dL) 12/28/17 20:50 Ur Leukocyte Esterase Negative Ty/uL (NEGATIVE) 12/28/17 20:50 Urine RBC 1 - 3 /hpf (0-2) 12/28/17 20:50 Urine WBC Negative /hpf (0-6) 12/28/17 20:50 Ur Epithelial Cells 1 - 3 /hpf (0-5) 12/28/17 20:50 Urine Bacteria Trace (NEG) 12/28/17 20:50 Alcohol, Quantitative 341 mg/dL (0-10) H* 12/27/17 23:50 Blood Type A POSITIVE 12/27/17 22:57 Antibody Screen Negative 12/27/17 22:57 BBK History Checked Patient has bt 12/27/17 22:57 Attending/Attestation - Attestation I have personally seen and examined this patient.: Yes I have fully participated in the care of the patient.: Yes I have reviewed all pertinent clinical information, including history, physical exam and plan: Yes Notes (Text): 01/03/18 47 year old male with past medical history of alcohol abuse who presented with complaint of hematemesis and melena which resolved. His H/H remained stable. He was seen by GI with no planned intervention. He was on protonix and his diet was advanced as tolerated. Hospital course complicated with acute delirium / alcohol withdrawal which improved with ativan johnnie/prn taper. He was counselled on alcohol abstinence. He also had transaminitis secondary to chronic ETOH abuse. LFTs have been improving. US abdomen was reviewed. Patient is discharged to follow up with [facility]. Counselled on alcohol cessation. Monitor LFTs as outpatient. Codie Monsivais MD Hospitalist.
== END 2018-01-03 12:48 | disposition home or self-care (01) | DRG 378 ==
LOC: ED 19:56 → INTOOBSV 12-28 00:11 → ERH 12-28 00:11 → 2RSO 12-28 18:59 → OBSVTOIN 12-30 13:53 → 3RNO 01-01 19:34
PROVIDERS: ADMIT Internal Medicine; ATTEND Internal Medicine
DX: K92.0 Hematemesis (principal); F10.231 Alcohol dependence with withdrawal delirium; K86.2 Cyst of pancreas; K70.10 Alcoholic hepatitis without ascites; K76.0 Fatty (change of) liver, not elsewhere classified; E11.9 Type 2 diabetes mellitus without complications; K29.70 Gastritis, unspecified, without bleeding; F17.210 Nicotine dependence, cigarettes, uncomplicated; F22 Delusional disorders; F31.9 Bipolar disorder, unspecified; I10 Essential (primary) hypertension; J44.9 Chronic obstructive pulmonary disease, unspecified; K64.9 Unspecified hemorrhoids; Z87.01 Personal history of pneumonia (recurrent); Z91.19 Patient's noncompliance with other medical treatment and regimen; M19.90 Unspecified osteoarthritis, unspecified site; R40.2412 Glasgow coma scale score 13-15, at arrival to emergency department; Z78.1 Physical restraint status; R74.0 Nonspecific elevation of levels of transaminase and lactic acid dehydrogenase [LDH]

== ENCOUNTER 2018-01-03 17:46 | Emergency (ER) | payer MEDICAID, OTHER ==
[2018-01-03 17:46] VITALS: BMI 25.4
[2018-01-03 17:55] VITALS: BP 113/75; PULSE 76; RESP 20; O2SAT 99
== END 2018-01-03 19:07 | disposition left against medical advice (07) ==
LOC: ED 17:46
DX: Z02.89 Encounter for other administrative examinations (principal); Z00.00 Encounter for general adult medical examination without abnormal findings

== ENCOUNTER 2018-01-03 21:00 | Emergency (ER) | payer MEDICAID, OTHER ==
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
[2018-01-04 07:08] VITALS: PULSE 87; RESP 16
[2018-01-04 07:09] VITALS: BP 131/75; TEMP 98; O2SAT 98
== END 2018-01-04 06:00 | disposition home or self-care (01) ==
LOC: ED 21:00
DX: F10.10 Alcohol abuse, uncomplicated (principal)

== ENCOUNTER 2018-01-13 01:24 | Observation (INO) | payer MEDICAID, OTHER ==
[2018-01-13 01:24] VITALS: BMI 25.4
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
[2018-01-13 02:36] LABS: HEMOGLOBIN 12.2 g/dL (14.0-18.0); MEAN CORPUSCULAR HGB CONC 34.7 g/dl (31.0-37.0); MEAN PLATELET VOLUME 10.1 fl (7.0-11.0); RBC 3.39 10^6/uL (3.5-6.1); RED CELL DISTRIBUTION WIDTH 16.5 % (11.5-14.5); WHITE BLOOD COUNT 8.4 10^3/ul (4.5-11.0)
[2018-01-13 03:26] LABS: INR 1.04 (0.93-1.08); PARTIAL THROMBOPLASTIN TIME 32.1 Seconds (25.1-36.5); PROTHROMBIN TIME 11.9 SECONDS (9.4-12.5)
[2018-01-13 03:27] LABS: MEAN CELL VOLUME 103.8 fl (80.0-105.0)
[2018-01-13 03:44] LABS: TROPONIN I < 0.01 ng/mL
[2018-01-13 03:45] LABS: ALB/GLOB RATIO 0.8 (1.1-1.8); ALT/SGPT 81 U/L (7-56); AST/SGOT 166 U/L (17-59); BLOOD UREA NITROGEN 6 mg/dL (7-21); CALCIUM 9.8 mg/dL (8.4-10.5); GFR AFRICAN-AMERICAN > 60; GFR NON-AFRICAN AMERICAN > 60
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
[2018-01-13] MEDS ORDERED: Pantoprazole 40 mg EC Tab PO SCH (06:00)
[2018-01-13] MEDS ORDERED: Insulin Lispro (humaLOG) LOW Coverage SC SCH (07:30)
[2018-01-13 08:29] VITALS: RESP 20
--- NOTE | 2018-01-13 09:13 | RAD ---
HISTORY: chest pain COMPARISON: 01/01/2018 FINDINGS: LUNGS: No active pulmonary disease. PLEURA: No significant pleural effusion identified, no pneumothorax apparent. CARDIOVASCULAR: Normal. OSSEOUS STRUCTURES: No significant abnormalities. VISUALIZED UPPER ABDOMEN: Normal. OTHER FINDINGS: None. IMPRESSION: No active disease.
[2018-01-13] MEDS ORDERED: Multivitamin (MVI) 10 ML, Thiamine 100 MG, Folic Acid 1 MG in Sodium Chloride 0.9% 1,00... IV ONE (09:30)
--- NOTE | 2018-01-13 11:10 | CARD ---
APPROVED REPORT EKG Measurement Heart [id number] <Conclusion> Normal sinus rhythm Poor R Progression V1-V3.
--- NOTE | 2018-01-13 14:13 | CARD ---
APPROVED REPORT EKG Measurement Heart [id number] <Conclusion> Normal sinus rhythm Normal ECG
--- NOTE | 2018-01-13 19:02 | CON ---
DATE: 01/13/2018 INDICATIONS: Chest pain. HISTORY OF PRESENT ILLNESS: This is a 47-year-old male, alcoholic, admitted last night with diffuse body aches including chest pain, also GI symptoms including coffee-ground emesis and possible hematochezia. He describes diffuse pains but does not describe typical exertional chest pain or dyspnea on exertion. He does report shortness of breath at times with no orthopnea, PND, syncope, presyncope, lightheadedness, dizziness, or vertigo. There is no cough, sputum production, or hemoptysis. PAST MEDICAL HISTORY: Notable for diabetes, hypertension, alcohol abuse. He had [facility] admissions in the past. He has had GI evaluations for elevated liver enzymes. There is no history of rheumatic fever, myocardial infarction, congestive heart failure, arrhythmia, stroke, TIA, or gout. MEDICATIONS: At the time of admission were none. ALLERGIES: THERE WERE NO MEDICATION ALLERGIES REPORTED. SOCIAL HISTORY: He smokes, drinks beer daily. There is a history of cocaine use in the past (according to the chart). FAMILY HISTORY: Not notable for early coronary artery disease. REVIEW OF SYSTEMS: A 10-point review of systems is otherwise unremarkable. PHYSICAL EXAMINATION: GENERAL: He is a well-developed male, lying in bed on telemetry, in no acute distress. VITAL SIGNS: Notable for sinus rhythm 85 beats per minute. He is afebrile, blood pressure 100/63, respirations 18, O2 sat 96% to 100% on room air. HEENT: Reveals no neck vein distension, thyromegaly, carotid bruits. Mucous membranes moist. Conjunctivae pink. NECK: Supple. LUNGS: Lungs ferrera clear. HEART: Reveal normal first and second heart sounds. ABDOMEN: Soft. Bowel sounds present. No mass, organomegaly, tenderness, rebound, or guarding. EXTREMITIES: No cyanosis, clubbing, or edema. NEUROLOGICAL: Awake, but sedated. PSYCHIATRIC: Sedated. SKIN: Warm and dry. No rash or cellulitis. LABORATORY DATA AND IMAGING: Chest x-ray is a portable study, is not yet interpreted. To me it is free of congestive heart failure, infiltrate, diffusion. EKG reveals regular sinus rhythm. No acute changes. White count normal. Platelet count normal. Hemoglobin 12.2, hematocrit 35.2. PT, INR and PTT unremarkable. Electrolytes, BUN and creatinine are unremarkable. Blood sugars in the 79 to 103 range, magnesium 1.9. Elevated LFTs are noted. CK 85. Troponin less than 0.01. EtOH level is 289. IMPRESSION AND PLAN: This is a 47-year-old male, alcoholic, with diffuse body aches including chest pain. At this time, he will be on telemetry and have a rule out myocardial infarction protocol. We will get serial EKGs and enzymes. He will be monitored for alcohol withdrawal. He will get IV fluids and vitamins. He is getting sedatives. He has been started on aspirin. I will review his old records. He will get an echocardiogram. I will follow along with you. I will make additional recommendations based on his clinical course. Discontinuation of cigarette smoking and alcohol use would of course be appropriate. Yefri Cochran MD MTDShira
[2018-01-13 19:21] LABS: TROPONIN I < 0.01 ng/mL
[2018-01-14 01:21] VITALS: TEMP 98.2; O2SAT 97
[2018-01-14 06:23] LABS: BASO # 0.06 K/mm3 (0.0-2.0); BASO % 0.8 % (0.0-3.0); EOS # 0.2 (0.0-0.7); EOS % 2.5 % (1.5-5.0); GRAN # 4.97 (1.4-6.5); HEMOGLOBIN 11.5 g/dL (14.0-18.0); LYMPH # 1.4 (1.2-3.4); LYMPH % 19.2 % (22.0-35.0); MEAN CELL VOLUME 105.2 fl (80.0-105.0); MEAN CORPUSCULAR HEMOGLOBIN 35.5 pg (25.0-35.0); MEAN CORPUSCULAR HGB CONC 33.7 g/dl (31.0-37.0); MEAN PLATELET VOLUME 10.6 fl (7.0-11.0); MONO # 0.7 (0.1-0.6); MONO % 9.5 % (1.0-6.0); RBC 3.24 10^6/uL (3.5-6.1); WHITE BLOOD COUNT 7.3 10^3/ul (4.5-11.0)
[2018-01-14 06:42] LABS: INR 1.08 (0.93-1.08); PARTIAL THROMBOPLASTIN TIME 30.9 Seconds (25.1-36.5); PROTHROMBIN TIME 12.4 SECONDS (9.4-12.5)
[2018-01-14 07:48] LABS: ALB/GLOB RATIO 0.9 (1.1-1.8); ALBUMIN 3.9 g/dL (3.0-4.8); ALT/SGPT 62 U/L (7-56); AST/SGOT 119 U/L (17-59); BLOOD UREA NITROGEN 11 mg/dL (7-21); CALCIUM 10.2 mg/dL (8.4-10.5); GFR AFRICAN-AMERICAN > 60; GFR NON-AFRICAN AMERICAN > 60
[2018-01-14] MEDS ORDERED: Multivitamin With Minerals Tab PO SCH (08:00)
--- NOTE | 2018-01-14 08:13 | CP.PCM.PN ---
Subjective - Date & Time of Evaluation Date of Evaluation: 01/14/18 Time of Evaluation: 07:00 - Subjective Subjective: Stable on 3R. Sedated. No CP or SOB. V/S noted. RSR PE: Lungs: clear Cor.: S1S2 Abd.: soft Ext.: no edema Neuro.: sedated I/O= 1020/250 recorded. Stool OB: neg. Labs nooted: K+= 3.5, Abn LFTs and BR. Trops all neg. x 3 ECG 01/13: RSR CXR 01/13: nad Echo done. Will read. Prelim > Nl LV Objective - Vital Signs/Intake and Output Vital Signs (last 24 hours): Temp Pulse Resp BP Pulse Ox 98.2 F 83 20 145/90 97 01/14/18 00:00 01/14/18 05:16 01/14/18 00:00 01/14/18 00:00 01/14/18 00:00 Intake and Output: 01/14/18 01/14/18 06:59 18:59 Intake Total 540 Balance 540 - Medications Medications: Current Medications Folic Acid (Folic Acid) 1 mg PO DAILY VÍCTOR Lorazepam (Ativan) 2 mg IVP Q6H VÍCTOR PRN Reason: Protocol Last Admin: 01/14/18 05:30 Dose: 2 mg Lorazepam (Ativan) 1 mg IVP Q2H PRN; Protocol PRN Reason: Agitation Multivitamins/Minerals (Therapeutic-M Tab) 1 tab PO 0800 [facility] Ondansetron HCl (Zofran Inj) 4 mg IVP Q6 PRN PRN Reason: Nausea/Vomiting Pantoprazole Sodium (Protonix Inj) 40 mg IVP DAILY [facility] Last Admin: 01/13/18 10:06 Dose: 40 mg Potassium Chloride (K-Dur 20 Meq Er Tab) 20 meq PO DAILY VÍCTOR Thiamine HCl (Vitamin B1 Tab) 100 mg PO DAILY VÍCTOR - Labs Labs: 01/14/18 05:15 01/14/18 05:15 PT 12.4 SECONDS (9.4-12.5) 01/14/18 05:15 INR 1.08 (0.93-1.08) 01/14/18 05:15 APTT 30.9 Seconds (25.1-36.5) 01/14/18 05:15 Assessment and Plan - Assessment and Plan (Free Text) Assessment: CP/neg trops and ECG/No acute NH R/O GIB Ethanolism Smoker HBP Diabetes Anemia H/O pancreatitis H/O depression Plan: Will read echo PO KCL replacement D/C tobacco and etoh use GI eval Out-pt nuclear stress test once he recovers.
[2018-01-14 08:39] VITALS: BP 141/90; PULSE 79
--- NOTE | 2018-01-14 08:52 | CARD ---
APPROVED REPORT EXAM: Two-dimensional and M-mode echocardiogram with Doppler and color Doppler. Other Information Quality : GoodRhythm : INDICATION Chest Pain 2D DIMENSIONS Left Atrium (2D)3.5 (1.6-4.0cm)IVSd0.9 (0.7-1.1cm) LVDd4.0 (3.9-5.9cm)PWd0.9 (0.7-1.1cm) LVDs2.4 (2.5-4.0cm)FS (%) 39.2 % LVEF (%)70.0 (>50%) M-Mode DIMENSIONS Aortic Root3.80 (2.2-3.7cm)Aortic Cusp Exc.1.80 (1.5-2.0cm) Aortic Valve AoV Peak Xfvemxhp645.0cm/sLVOT Peak Hbcpuoxr409.0cm/sLVOT VTI18.20cm Mitral Valve MV E Phkwmelo94.9cm/sMV A Tfuvmvly240.0cm/sE/A ratio0.6 TDI Lateral E' Peak V13.70cm/sMedial E' Peak V7.80cm/sE/Lateral E'5.0 E/Medial E'8.7 Pulmonary Valve PV Peak Fjcquyfm62.3cm/sPV Peak Grad.3mmHg Tricuspid Valve TR Peak Fwbmrjtk526sn/sRAP TEIXXZQU14yeIgEB Peak Gr.8mmHg NTVI52mxSg LEFT VENTRICLE The left ventricle is normal size. There is normal left ventricular wall thickness. The left ventricular function is normal. The left ventricular ejection fraction is within the normal range. There is normal LV segmental wall motion. RIGHT VENTRICLE The right ventricle is normal size. ATRIA The left atrium size is normal. The right atrium size is normal. The interatrial septum is intact with no evidence for an atrial septal defect. AORTIC VALVE The aortic valve is normal in structure. MITRAL VALVE The mitral valve is normal in structure. TRICUSPID VALVE The tricuspid valve is normal in structure. There is trace tricuspid regurgitation. PULMONIC VALVE The pulmonic valve is not well visualized. GREAT VESSELS The aortic root is normal in size. PERICARDIAL EFFUSION There is no pericardial effusion. <Conclusion> The left ventricle is normal size. There is normal left ventricular wall thickness. The left ventricular function is normal.
[2018-01-14] MEDS ORDERED: Potassium Chloride 20 mEq ER Tab PO SCH (10:00)
--- NOTE | 2018-01-14 12:34 | CARD ---
APPROVED REPORT EKG Measurement Heart [id number] <Conclusion> Normal sinus rhythm Normal ECG
--- NOTE | 2018-01-14 13:58 | CP.PCM.DIS ---
<Christopher Sylvester - Last Filed: 01/14/18 13:49> Provider - Provider Date of Admission: 01/13/18 04:50 Attending physician: Codie Monsivais MD Primary care physician: None Consults: Cardio: Luis Fernandokind Time Spent in preparation of Discharge (in minutes): 41 Hospital Course - Lab Results Lab Results: Most Recent Lab Values WBC 7.3 10^3/ul (4.5-11.0) 01/14/18 05:15 RBC 3.24 10^6/uL (3.5-6.1) L 01/14/18 05:15 Hgb 11.5 g/dL (14.0-18.0) L 01/14/18 05:15 Hct 34.1 % (42.0-52.0) L 01/14/18 05:15 MCV 105.2 fl (80.0-105.0) H 01/14/18 05:15 MCH 35.5 pg (25.0-35.0) H 01/14/18 05:15 MCHC 33.7 g/dl (31.0-37.0) 01/14/18 05:15 RDW 16.0 % (11.5-14.5) H 01/14/18 05:15 Plt Count 270 10^3/uL (120.0-450.0) 01/14/18 05:15 MPV 10.6 fl (7.0-11.0) 01/14/18 05:15 Gran % 68.0 % (50.0-68.0) 01/14/18 05:15 Lymph % (Auto) 19.2 % (22.0-35.0) L 01/14/18 05:15 [place] % (Auto) 9.5 % (1.0-6.0) H 01/14/18 05:15 Eos % (Auto) 2.5 % (1.5-5.0) 01/14/18 05:15 Baso % (Auto) 0.8 % (0.0-3.0) 01/14/18 05:15 Gran # 4.97 (1.4-6.5) 01/14/18 05:15 Lymph # (Auto) 1.4 (1.2-3.4) 01/14/18 05:15 [place] # (Auto) 0.7 (0.1-0.6) H 01/14/18 05:15 Eos # (Auto) 0.2 (0.0-0.7) 01/14/18 05:15 Baso # (Auto) 0.06 K/mm3 (0.0-2.0) 01/14/18 05:15 PT 12.4 SECONDS (9.4-12.5) 01/14/18 05:15 INR 1.08 (0.93-1.08) 01/14/18 05:15 APTT 30.9 Seconds (25.1-36.5) 01/14/18 05:15 Sodium 138 mmol/L (132-148) 01/14/18 05:15 Potassium 3.5 mmol/L (3.6-5.0) L 01/14/18 05:15 Chloride 100 mmol/L (98-107) 01/14/18 05:15 Carbon Dioxide 27 mmol/L (21-33) 01/14/18 05:15 Anion Gap 14 (10-20) 01/14/18 05:15 BUN 11 mg/dL (7-21) 01/14/18 05:15 Creatinine 0.7 mg/dl (0.8-1.5) L 01/14/18 05:15 Est GFR ( Amer) > 60 01/14/18 05:15 Est GFR (Non-Af Amer) > 60 01/14/18 05:15 POC Glucose (mg/dL) 85 mg/dL (65-110) 01/14/18 07:42 Random Glucose 95 mg/dL (70-110) 01/14/18 05:15 Calcium 10.2 mg/dL (8.4-10.5) 01/14/18 05:15 Magnesium 1.9 mg/dL (1.7-2.2) 01/13/18 02:20 Total Bilirubin 2.1 mg/dL (0.2-1.3) H 01/14/18 05:15 AST 119 U/L (17-59) H D 01/14/18 05:15 ALT 62 U/L (7-56) H 01/14/18 05:15 Alkaline Phosphatase 276 U/L (38-126) H 01/14/18 05:15 Lactate Dehydrogenase 418 U/L (333-699) 01/13/18 18:49 Total Creatine Kinase 65 U/L (35-230) 01/13/18 18:49 Troponin I < 0.01 ng/mL 01/13/18 18:49 Total Protein 8.4 g/dL (5.8-8.3) H 01/14/18 05:15 Albumin 3.9 g/dL (3.0-4.8) 01/14/18 05:15 Globulin 4.5 gm/dL 01/14/18 05:15 Albumin/Globulin Ratio 0.9 (1.1-1.8) L 01/14/18 05:15 Stool Occult Blood Negative (NEGATIVE) 01/14/18 04:15 Alcohol, Quantitative 289 mg/dL (0-10) H 01/13/18 02:20 - Hospital Course Hospital Course: 47 year old male with past medical history of alcohol abuse and HTN who presented with chest pain. An EKG was done and showed normal sinus rhythm, that was largely unchanged from previous EKG's. Two more EKG's were done Q6 and showed similar findings. Three serial troponins were negative. Cardiology was consulted and recommended an echo while inpatient and, if the echo was normal, an outpatient cardiac stress test. An echo was done and showed an LVEF of 70% and normal LV size, function and wall thickness. Patient was started on alcohol withdrawal precautions including Q4 CIWA assessments, standing ativan, as needed ativan, folate/MV/thiamine supplementation, and fall/seizure/aspiration precautions. Patient had low CIWA scores throughout his hospital stay and required no PRN ativan. He was noted to have elevated liver enzymes but these were noted to be at his baseline per chart review. Patient had initial complaints of chronic hematemesis and hematochezia but had stable hemoglobin and hematocrit throughout his stay. Of note, no episodes of either of these were noted while he was an inpatient. He was NPO for these complaints but his diet was advanced as tolerated to HHD with no complications or complaints. Patient was discharged on 01/14/18 with instructions to follow up with the [facility] at [facility] as well as Dr. Cochran's office. He was also sent home with a two week supply of thiamine, folic acid, MV and protonix. - Date & Time of H&P Date of H&P: 01/13/18 Time of H&P: 20:06 Discharge Exam - Head Exam Head Exam: ATRAUMATIC, NORMAL INSPECTION, NORMOCEPHALIC - Eye Exam Eye Exam: EOMI, PERRL Pupil Exam: NORMAL ACCOMODATION - ENT Exam ENT Exam: Mucous Membranes Moist - Neck Exam Neck exam: Full Rom - Respiratory Exam Respiratory Exam: Clear to PA & Lateral, NORMAL BREATHING PATTERN, UNREMARKABLE - Cardiovascular Exam Cardiovascular Exam: REGULAR RHYTHM - GI/Abdominal Exam GI & Abdominal Exam: Normal Bowel Sounds, Unremarkable - Extremities Exam Extremities exam: full ROM, normal capillary refill, normal inspection, pedal pulses present - Neurological Exam Neurological exam: Alert, CN II-XII Intact, Oriented x3 - Psychiatric Exam Psychiatric exam: Normal Affect, Normal Mood - Skin Skin Exam: Dry, Intact, Normal Color, Warm Discharge Plan - Discharge Medications Prescriptions: Folic Acid 1 mg PO DAILY #14 tab Multimineral/Multivitamin [Therapeutic-M Tab] 1 tab PO 0800 #14 tab Pantoprazole [Protonix] 40 mg PO DAILY #14 ect Thiamine [Vitamin B1 Tab] 100 mg PO DAILY #14 tab - Follow Up Plan Condition: STABLE Disposition: HOME/ ROUTINE Instructions: Cardiac Stress Test, Chest Pain (DC), Alcohol Withdrawal (DC), Alcohol Abuse and Alcoholism (DC), Effects of Alcohol on Your Health, Alcohol Use Disorder (DC) Additional Instructions: Please follow up with your primary care doctor within one week. If you do not have a primary care doctor, please follow up with the [facility] at [facility]. Their contact information has been provided in this paperwork. Please follow up with Dr. Cochran, cardiology, as an outpatient. It has been recommended that you have a Cardiac Stress Test in his office. Dr. Cochran's contact information and information regarding this procedure has been provided in this paperwork. Please review. Please take all medications as prescribed. Should your symptoms worsen or persist, please seek emergency medical attention. Referrals: [facility] at [facility] [Outside] [facility], [Non-Staff] - Yefri Cochran MD [Staff Provider] - <Cdoie Monsivais - Last Filed: 01/14/18 14:13> Provider - Provider Date of Admission: 01/13/18 04:50 Attending physician: Codie Monsivais MD Hospital Course - Lab Results Lab Results: Most Recent Lab Values WBC 7.3 10^3/ul (4.5-11.0) 01/14/18 05:15 RBC 3.24 10^6/uL (3.5-6.1) L 01/14/18 05:15 Hgb 11.5 g/dL (14.0-18.0) L 01/14/18 05:15 Hct 34.1 % (42.0-52.0) L 01/14/18 05:15 MCV 105.2 fl (80.0-105.0) H 01/14/18 05:15 MCH 35.5 pg (25.0-35.0) H 01/14/18 05:15 MCHC 33.7 g/dl (31.0-37.0) 01/14/18 05:15 RDW 16.0 % (11.5-14.5) H 01/14/18 05:15 Plt Count 270 10^3/uL (120.0-450.0) 01/14/18 05:15 MPV 10.6 fl (7.0-11.0) 01/14/18 05:15 Gran % 68.0 % (50.0-68.0) 01/14/18 05:15 Lymph % (Auto) 19.2 % (22.0-35.0) L 01/14/18 05:15 [place] % (Auto) 9.5 % (1.0-6.0) H 01/14/18 05:15 Eos % (Auto) 2.5 % (1.5-5.0) 01/14/18 05:15 Baso % (Auto) 0.8 % (0.0-3.0) 01/14/18 05:15 Gran # 4.97 (1.4-6.5) 01/14/18 05:15 Lymph # (Auto) 1.4 (1.2-3.4) 01/14/18 05:15 [place] # (Auto) 0.7 (0.1-0.6) H 01/14/18 05:15 Eos # (Auto) 0.2 (0.0-0.7) 01/14/18 05:15 Baso # (Auto) 0.06 K/mm3 (0.0-2.0) 01/14/18 05:15 PT 12.4 SECONDS (9.4-12.5) 01/14/18 05:15 INR 1.08 (0.93-1.08) 01/14/18 05:15 APTT 30.9 Seconds (25.1-36.5) 01/14/18 05:15 Sodium 138 mmol/L (132-148) 01/14/18 05:15 Potassium 3.5 mmol/L (3.6-5.0) L 01/14/18 05:15 Chloride 100 mmol/L (98-107) 01/14/18 05:15 Carbon Dioxide 27 mmol/L (21-33) 01/14/18 05:15 Anion Gap 14 (10-20) 01/14/18 05:15 BUN 11 mg/dL (7-21) 01/14/18 05:15 Creatinine 0.7 mg/dl (0.8-1.5) L 01/14/18 05:15 Est GFR ( Amer) > 60 01/14/18 05:15 Est GFR (Non-Af Amer) > 60 01/14/18 05:15 POC Glucose (mg/dL) 85 mg/dL (65-110) 01/14/18 07:42 Random Glucose 95 mg/dL (70-110) 01/14/18 05:15 Calcium 10.2 mg/dL (8.4-10.5) 01/14/18 05:15 Magnesium 1.9 mg/dL (1.7-2.2) 01/13/18 02:20 Total Bilirubin 2.1 mg/dL (0.2-1.3) H 01/14/18 05:15 AST 119 U/L (17-59) H D 01/14/18 05:15 ALT 62 U/L (7-56) H 01/14/18 05:15 Alkaline Phosphatase 276 U/L (38-126) H 01/14/18 05:15 Lactate Dehydrogenase 418 U/L (333-699) 01/13/18 18:49 Total Creatine Kinase 65 U/L (35-230) 01/13/18 18:49 Troponin I < 0.01 ng/mL 01/13/18 18:49 Total Protein 8.4 g/dL (5.8-8.3) H 01/14/18 05:15 Albumin 3.9 g/dL (3.0-4.8) 01/14/18 05:15 Globulin 4.5 gm/dL 01/14/18 05:15 Albumin/Globulin Ratio 0.9 (1.1-1.8) L 01/14/18 05:15 Stool Occult Blood Negative (NEGATIVE) 01/14/18 04:15 Alcohol, Quantitative 289 mg/dL (0-10) H 01/13/18 02:20 Attending/Attestation - Attestation I have personally seen and examined this patient.: Yes I have fully participated in the care of the patient.: Yes I have reviewed all pertinent clinical information, including history, physical exam and plan: Yes Notes (Text): 01/14/18 14:09 47 year old male with past medical history of chronic ETOH abuse who presented with complaint of chest pain and ?hematemesis. Serial cardiac enzymes were negative and ACS was ruled out. He was seen by cardiology who recommended outpatient stress test. His GI symptoms resolved and he was tolerating diet. He was counselled on alcohol abstinence. His LFTs, chronically elevated likely secondary to chronic ETOH abuse, remained stable. Overall his symptoms have improved. He is discharged today to follow up with his pmd. Follow up with cardiology for outpatient stress test. Monitor LFTs as outpatient. Counselled on alcohol abstinence. Codie Monsivais MD Hospitalist.
== END 2018-01-14 15:29 | disposition left against medical advice (07) ==
LOC: ED 01:24 → ERH 04:50 → 3RNO 05:57
PROVIDERS: ADMIT Internal Medicine; ATTEND Internal Medicine
DX: D64.9 Anemia, unspecified (principal); E11.9 Type 2 diabetes mellitus without complications; F10.10 Alcohol abuse, uncomplicated; F17.210 Nicotine dependence, cigarettes, uncomplicated; F31.9 Bipolar disorder, unspecified; I10 Essential (primary) hypertension; J44.9 Chronic obstructive pulmonary disease, unspecified; K92.0 Hematemesis; Z87.01 Personal history of pneumonia (recurrent); Z91.14 Patient's other noncompliance with medication regimen; Z86.59 Personal history of other mental and behavioral disorders; Z87.19 Personal history of other diseases of the digestive system
CPT/HCPCS: 36415; 71045; 80053; 80320; 82550; 82948; 83615; 83735; 84484; 85025; 85027; 85610; 85730; 93005; 93306; 96374; 96375; 96376; 99285; C9113; G0328; G0378; J2060; J3411; J7040

== ENCOUNTER 2018-01-14 19:57 | Emergency (ER) | payer MEDICAID ==
[2018-01-14 20:17] VITALS: BMI 24.4
[2018-01-14 20:46] VITALS: BP 134/81; PULSE 96; RESP 18; TEMP 98.1; O2SAT 99
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
== END 2018-01-14 21:52 | disposition home or self-care (01) ==
LOC: ED 19:57
DX: F10.10 Alcohol abuse, uncomplicated (principal); Y90.9 Presence of alcohol in blood, level not specified

== ENCOUNTER 2018-01-14 23:53 | Emergency (ER) | payer MEDICAID ==
[2018-01-14 23:54] VITALS: BMI 24.4
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
[2018-01-15 01:23] VITALS: BP 128/79; PULSE 99; RESP 18; TEMP 98.1; O2SAT 99
== END 2018-01-15 01:15 | disposition left against medical advice (07) ==
LOC: ED 23:53
DX: F10.10 Alcohol abuse, uncomplicated (principal); Y90.9 Presence of alcohol in blood, level not specified

== ENCOUNTER 2018-01-17 20:46 | Emergency (ER) | payer MEDICAID ==
[2018-01-17 20:47] VITALS: BMI 24.4
[2018-01-17 21:02] VITALS: RESP 18
[2018-01-17 21:03] VITALS: TEMP 98.4
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
[2018-01-18 00:13] VITALS: PULSE 95
[2018-01-18 05:42] VITALS: BP 114/89; O2SAT 98
== END 2018-01-18 05:42 | disposition home or self-care (01) ==
LOC: ED 20:46
DX: F10.129 Alcohol abuse with intoxication, unspecified (principal); Z59.0 Homelessness; I10 Essential (primary) hypertension; E11.9 Type 2 diabetes mellitus without complications

== ENCOUNTER 2018-01-18 20:49 | Emergency (ER) | payer MEDICAID ==
[2018-01-18 20:49] VITALS: BMI 24.4
[2018-01-18 21:02] VITALS: RESP 17
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
--- NOTE | 2018-01-18 23:52 | CT ---
EXAM: CT Head Without Intravenous Contrast CLINICAL HISTORY: 47 years old, male; Injury or trauma; Fall; Initial encounter; Blunt trauma (contusions or hematomas); Consciousness not specified; Additional info: 47yom, fall, head injury TECHNIQUE: Axial computed tomography images of the head/brain without intravenous contrast. All CT scans at this facility use one or more dose reduction techniques, viz.: automated exposure control; ma/kV adjustment per patient size (including targeted exams where dose is matched to indication; i.e. head); or iterative reconstruction technique. Coronal and sagittal reformatted images were created and reviewed. COMPARISON: CT - HEAD W/O CONTRAST 2017-10-29 17:24 FINDINGS: Brain: [id number] atrophy. No intracranial hemorrhage. No mass. No edema. Ventricles: No hydrocephalus. Bones/joints: No acute fracture. Soft tissues: Unremarkable. Sinuses: [id number] mucosal thickening of ethmoid sinuses. Moderate mucosal thickening of left maxillary, left frontal sinuses. Scattered minimal mucosal thickening of remaining sinuses. Small right maxillary retention cyst. Mastoid air cells: No mastoid effusion. Orbits: Unremarkable as visualized. IMPRESSION: 1. No intracranial hemorrhage. 2. Incidental/non-acute findings are described above.
--- NOTE | 2018-01-18 23:56 | CT ---
EXAM: CT Lumbar Spine Without Intravenous Contrast CLINICAL HISTORY: 47 years old, male; Injury or trauma; Fall; Initial encounter; Blunt trauma (contusions or hematomas); Additional info: 47yom, slip/fall lumbar pain/tender TECHNIQUE: Axial computed tomography images of the lumbar spine without intravenous contrast. All CT scans at this facility use one or more dose reduction techniques, viz.: automated exposure control; ma/kV adjustment per patient size (including targeted exams where dose is matched to indication; i.e. head); or iterative reconstruction technique. Coronal and sagittal reformatted images were created and reviewed. COMPARISON: No relevant prior studies available. FINDINGS: Vertebrae: No acute fracture. Discs/spinal canal/neural foramina: Early to mild degenerative disc disease throughout spine. Disc herniation at L5-S1 level. No significant central canal stenosis. Neuroforaminal narrowing at L5-S1 level. Soft tissues: Unremarkable. Vasculature: Mild atherosclerotic disease. Liver: Enlarged caudate lobe. IMPRESSION: 1. No fracture. 2. Incidental/non-acute findings are described above.
[2018-01-19 03:16] VITALS: TEMP 98.2; O2SAT 100
[2018-01-19 05:41] VITALS: BP 125/82; PULSE 90
== END 2018-01-19 05:41 | disposition home or self-care (01) ==
LOC: ED 20:49
DX: M54.5 Low back pain (principal); I10 Essential (primary) hypertension; E11.9 Type 2 diabetes mellitus without complications

== ENCOUNTER 2018-02-11 18:35 | Emergency (ER) | payer MEDICAID ==
[2018-02-11 18:48] VITALS: BMI 23.4
[2018-02-11 18:50] VITALS: TEMP 97.6
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
[2018-02-12 03:37] VITALS: RESP 18; O2SAT 100
[2018-02-12 05:59] VITALS: BP 110/89; PULSE 84
--- NOTE | 2018-02-12 09:26 | RAD ---
HISTORY: cough COMPARISON: 01/13/2018 TECHNIQUE: Chest PA and lateral FINDINGS: LUNGS: No active pulmonary disease. PLEURA: No significant pleural effusion identified. No pneumothorax apparent. CARDIOVASCULAR: Normal. OSSEOUS STRUCTURES: No significant abnormalities. VISUALIZED UPPER ABDOMEN: Normal. OTHER FINDINGS: None. IMPRESSION: No active disease.
--- NOTE | 2018-02-12 19:41 | CARD ---
APPROVED REPORT EKG Measurement Heart [id number] <Conclusion> Normal sinus rhythm Normal ECG
== END 2018-02-12 05:59 | disposition home or self-care (01) ==
LOC: ED 18:35
DX: F10.10 Alcohol abuse, uncomplicated (principal); Y90.9 Presence of alcohol in blood, level not specified; I10 Essential (primary) hypertension; E11.9 Type 2 diabetes mellitus without complications; F17.210 Nicotine dependence, cigarettes, uncomplicated

== ENCOUNTER 2018-02-13 20:50 | Emergency (ER) | payer MEDICAID ==
[2018-02-13 21:04] VITALS: BMI 24.4
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
[2018-02-13 23:03] VITALS: BP 128/76; PULSE 78; RESP 18; TEMP 97.8; O2SAT 98
== END 2018-02-13 23:05 | disposition left against medical advice (07) ==
LOC: ED 20:50
DX: F10.129 Alcohol abuse with intoxication, unspecified (principal); Z59.0 Homelessness

== ENCOUNTER 2018-02-25 20:09 | Emergency (ER) | payer MEDICAID ==
[2018-02-25 20:11] VITALS: BMI 24.4
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
[2018-02-26 02:49] VITALS: BP 122/78; PULSE 90; RESP 18; TEMP 98.1; O2SAT 97
--- NOTE | 2018-02-26 09:50 | RAD ---
PROCEDURE: Bilateral ribs HISTORY: rib pain COMPARISON: TECHNIQUE: Three views FINDINGS: There is no evidence of displaced fracture or pneumothorax IMPRESSION: Negative study
== END 2018-02-26 06:00 | disposition home or self-care (01) ==
LOC: ED 20:09
DX: F10.10 Alcohol abuse, uncomplicated (principal); R07.81 Pleurodynia; I10 Essential (primary) hypertension; F17.210 Nicotine dependence, cigarettes, uncomplicated

== ENCOUNTER 2018-02-26 20:26 | Emergency (ER) | payer MEDICAID ==
[2018-02-26 20:26] VITALS: BMI 24.4
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
[2018-02-27 02:05] VITALS: PULSE 76
[2018-02-27 06:06] VITALS: BP 124/76; RESP 16; TEMP 98.4; O2SAT 99
== END 2018-02-27 06:37 | disposition home or self-care (01) ==
LOC: ED 20:26
DX: F10.10 Alcohol abuse, uncomplicated (principal)

== ENCOUNTER 2018-03-01 10:05 | Emergency (ER) | payer MEDICAID ==
[2018-03-01 10:05] VITALS: BMI 24.4
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
[2018-03-01 10:15] VITALS: RESP 18; TEMP 98.8
[2018-03-01] MEDS ORDERED: Thiamine 100 mg/ml Inj IM STA (14:24)
[2018-03-01 16:28] VITALS: O2SAT 100
--- NOTE | 2018-03-02 06:22 | ED PDOC ---
Physical Exam Vital Signs Reviewed: Yes Vital Signs Temp Pulse Resp BP Pulse Ox 03/02/18 02:00 89 18 127/86 100 03/01/18 20:00 85 18 128/72 100 03/01/18 16:28 82 18 135/57 L 100 03/01/18 12:05 92 H 18 115/62 96 03/01/18 10:12 98.8 F 95 H 18 118/65 96 Temperature: Afebrile Blood Pressure: Normal Pulse: Regular Respiratory Rate: Normal Appearance: Positive for: Well-Appearing, Non-Toxic, Comfortable Pain Distress: None Mental Status: Positive for: Alert and Oriented X 3 - Systems Exam Head: Present: Atraumatic, Normocephalic Pupils: Present: PERRL Extroacular Muscles: Present: EOMI Conjunctiva: Present: Normal Ears: Present: Normal Mouth: Present: Moist Mucous Membranes Pharnyx: Present: Normal Nose (External): Present: Atraumatic Nose (Internal): Present: Normal Inspection Neck: Present: Normal Range of Motion, Other (no c-t-l spinal or paraspinal tenderness) Respiratory/Chest: Present: Clear to Auscultation Cardiovascular: Present: Regular Rate and Rhythm Abdomen: No: Tenderness, Distention, Normal Bowel Sounds, Peritoneal Signs, Rebound, Guarding, McBurney's Point Tender, Rovsing's Sign Present, Hernias, Feeding Tubes, Ostomy Tubes, Mass/Organomegaly, Scars, Other Back: Present: Normal Inspection Upper Extremity: Present: Normal Inspection Lower Extremity: Present: Normal Inspection Neurological: Present: GCS=15, CN II-XII Intact, Speech Normal, Motor Func Grossly Intact Skin: Present: Warm, Normal Color Psychiatric: Present: Alert, Oriented x 3, Normal Insight, Normal Concentration Medical Decision Making ED Course and Treatment: you were treated in the ED today for admitted alcohol use and otherwise without any head injury/neck pain/nausea/vomiting/headache/dizziness/difficulty breathing/chest pain/abdomen pain/numbness/tingling/loss of limb function/pain with urination/thoughts to harm yourself or others or hallucinations. You were otherwise breathing easily, pink moist lips, smiling and talking easily, good strength/sensation, alert/oriented, walking easily, clear lungs, no abdomen tenderness, no spinal tenderness, no fever temp 98.8, stable heart rate 95, stable breathing rate 18, excellent oxygen level 96% room air, stable blood pressure 118/65 which we recommend repeat in 2-3 days primary care office to determine further treatment, observation done in the ED with improvement/sober status, counselled to stop drinking alcohol and thus discharged home. 1. Recommend follow-up primary care 2 days to review symptoms, referral to detoxification clinic. 4. If any worsening pain, fever, chills, nausea, vomiting , difficulty breathing, numbness, loss of limb function, pain with urination or any medical condition then return to the ED. 03/02/18 06:24 Reassessment Condition: Re-examined, Improved - Medication Orders Current Medication Orders: Discontinued Medications Folic Acid (Folic Acid) 1 mg PO STAT STA Stop: 03/01/18 14:28 Last Admin: 03/01/18 16:36 Dose: 1 mg Thiamine HCl (Vitamin B1 Inj) 100 mg IM STAT STA Stop: 03/01/18 14:25 Last Admin: 03/01/18 16:36 Dose: 100 mg IM Administration Charges Document 03/01/18 16:36 OCS (Rec: 03/01/18 16:36 OCS [id number]) Injection Site MAR Injection Site Right Deltoid Charges for Administration # of IM Administrations 1 Disposition/Present on Arrival - Present on Arrival Any Indicators Present on Arrival: No History of DVT/PE: No History of Uncontrolled Diabetes: Yes Urinary Catheter: No History of Decub. Ulcer: No History Surgical Site Infection Following: None - Disposition Have Diagnosis and Disposition been Completed?: Yes Diagnosis: Alcohol intoxication Disposition: HOME/ ROUTINE Disposition Time: 06:23 Patient Plan: Discharge Patient Problems: Current Active Problems Problem Status Onset Alcohol intoxication Acute Condition: IMPROVED Additional Instructions: you were treated in the ED today for admitted alcohol use and otherwise without any head injury/neck pain/nausea/vomiting/headache/dizziness/difficulty breathing/chest pain/abdomen pain/numbness/tingling/loss of limb function/pain with urination/thoughts to harm yourself or others or hallucinations. You were otherwise breathing easily, pink moist lips, smiling and talking easily, good strength/sensation, alert/oriented, walking easily, clear lungs, no abdomen tenderness, no spinal tenderness, no fever temp 98.8, stable heart rate 95, stable breathing rate 18, excellent oxygen level 96% room air, stable blood pressure 118/65 which we recommend repeat in 2-3 days primary care office to determine further treatment, observation done in the ED with improvement/sober status, counselled to stop drinking alcohol and thus discharged home. 1. Recommend follow-up primary care 2 days to review symptoms, referral to detoxification clinic. 4. If any worsening pain, fever, chills, nausea, vomiting , difficulty breathing, numbness, loss of limb function, pain with urination or any medical condition then return to the ED. Referrals: PCP,NO [Primary Care Provider] - Follow up with primary
[2018-03-02 06:30] VITALS: BP 132/87; PULSE 85
== END 2018-03-02 06:30 | disposition home or self-care (01) ==
LOC: ED 10:05
DX: F10.129 Alcohol abuse with intoxication, unspecified (principal); E11.9 Type 2 diabetes mellitus without complications; I10 Essential (primary) hypertension; F17.200 Nicotine dependence, unspecified, uncomplicated
CPT/HCPCS: 96372; 99284; J3411

== ENCOUNTER 2018-03-02 22:24 | Emergency (ER) | payer MEDICAID ==
[2018-03-02 22:54] VITALS: TEMP 98; BMI 25.8
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
[2018-03-03 03:42] VITALS: BP 132/78; PULSE 83; RESP 20; O2SAT 92
== END 2018-03-03 05:29 | disposition home or self-care (01) ==
LOC: ED 22:24
DX: F10.129 Alcohol abuse with intoxication, unspecified (principal); Z59.0 Homelessness; E11.9 Type 2 diabetes mellitus without complications; F17.200 Nicotine dependence, unspecified, uncomplicated; I10 Essential (primary) hypertension

== ENCOUNTER 2018-03-03 19:37 | Emergency (ER) | payer MEDICAID ==
[2018-03-03 19:38] VITALS: BMI 25.8
[2018-03-03 19:51] VITALS: BP 135/74; PULSE 89; RESP 18; TEMP 98.4; O2SAT 97
== END 2018-03-03 19:50 | disposition left against medical advice (07) ==
LOC: ED 19:37
DX: Z02.89 Encounter for other administrative examinations (principal); F10.129 Alcohol abuse with intoxication, unspecified

== ENCOUNTER 2018-03-05 20:23 | Emergency (ER) | payer MEDICAID ==
[2018-03-05 20:23] VITALS: BMI 25.8
[2018-03-05 21:34] VITALS: RESP 18
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
[2018-03-06 05:56] VITALS: BP 132/70; PULSE 78; TEMP 97.5; O2SAT 96
== END 2018-03-06 05:59 | disposition home or self-care (01) ==
LOC: ED 20:23
DX: Z59.0 Homelessness (principal); F17.200 Nicotine dependence, unspecified, uncomplicated

== ENCOUNTER 2018-03-06 17:28 | Emergency (ER) | payer MEDICAID ==
[2018-03-06 17:37] VITALS: TEMP 98.3; BMI 32.3
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
[2018-03-07 03:21] VITALS: RESP 18
[2018-03-07 05:00] VITALS: BP 118/67; PULSE 86; O2SAT 99
== END 2018-03-07 05:01 | disposition home or self-care (01) ==
LOC: ED 17:28
DX: F10.129 Alcohol abuse with intoxication, unspecified (principal)

== ENCOUNTER → 2018-03-07 | Emergency (ER) | payer MEDICAID ==
[2018-03-07 17:36] VITALS: BMI 32.3
[2018-03-07 18:00] VITALS: TEMP 98.3
[2018-03-08 02:04] VITALS: O2SAT 98
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
[2018-03-08 02:07] VITALS: BP 129/75; PULSE 88; RESP 17
== END | disposition left against medical advice (07) ==
LOC: ED 17:36
DX: F10.10 Alcohol abuse, uncomplicated (principal)

== ENCOUNTER 2018-03-08 19:26 | Emergency (ER) | payer MEDICAID ==
[2018-03-08 19:26] VITALS: BMI 32.3
[2018-03-08 19:38] VITALS: TEMP 98.1
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
[2018-03-09 06:15] VITALS: BP 122/76; PULSE 70; RESP 16; O2SAT 99
== END 2018-03-09 06:13 | disposition home or self-care (01) ==
LOC: ED 19:26
DX: S69.91XA Unspecified injury of right wrist, hand and finger(s), initial encounter (principal); S69.92XA Unspecified injury of left wrist, hand and finger(s), initial encounter; Y04.0XXA Assault by unarmed brawl or fight, initial encounter; Y92.9 Unspecified place or not applicable; F10.129 Alcohol abuse with intoxication, unspecified; E11.9 Type 2 diabetes mellitus without complications

== ENCOUNTER 2018-03-10 22:38 | Emergency (ER) | payer MEDICAID ==
[2018-03-10 22:39] VITALS: BMI 32.3
== END 2018-03-11 05:22 | disposition left against medical advice (07) ==
LOC: ED 22:38
DX: Z02.89 Encounter for other administrative examinations (principal); F10.10 Alcohol abuse, uncomplicated

== ENCOUNTER 2018-03-11 10:59 | Emergency (ER) | payer MEDICAID ==
[2018-03-11 12:08] VITALS: BMI 32.0
[2018-03-11 12:27] VITALS: TEMP 97.8
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
[2018-03-11 16:43] VITALS: RESP 16
[2018-03-11 18:03] VITALS: BP 129/72; PULSE 76; O2SAT 96
== END 2018-03-11 18:39 | disposition home or self-care (01) ==
LOC: ED 10:59
DX: F10.10 Alcohol abuse, uncomplicated (principal)

== ENCOUNTER 2018-03-12 17:01 | Emergency (ER) | payer MEDICAID ==
[2018-03-12 17:01] VITALS: BMI 32.0
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
--- NOTE | 2018-03-13 01:54 | ED PDOC ---
Physical Exam Vital Signs Temp Pulse Resp BP Pulse Ox 03/12/18 21:01 88 19 140/82 98 03/12/18 17:35 98.4 F 63 18 134/89 98 Finger Stick Blood Glucose: 106 Medical Decision Making ED Course and Treatment: 03/12/18 23:00 Case endorsed to me by Dr. Barnett, pending sobriety, re-evaluation, and disposition. Disposition/Present on Arrival - Present on Arrival Any Indicators Present on Arrival: No History of DVT/PE: No History of Uncontrolled Diabetes: No Urinary Catheter: No History of Decub. Ulcer: No History Surgical Site Infection Following: None - Disposition Have Diagnosis and Disposition been Completed?: Yes Diagnosis: Alcohol intoxication Disposition: HOME/ ROUTINE Disposition Time: 05:40 Patient Problems: Current Active Problems Problem Status Onset Alcohol intoxication Acute General medical examination Acute Alcohol abuse Chronic Condition: GOOD Forms: [facility] (Estonian)
[2018-03-13 04:06] VITALS: RESP 18
[2018-03-13 05:32] VITALS: BP 131/89; PULSE 75; TEMP 98; O2SAT 100
== END 2018-03-13 05:32 | disposition home or self-care (01) ==
LOC: ED 17:01
DX: F10.129 Alcohol abuse with intoxication, unspecified (principal)

== ENCOUNTER 2018-03-14 18:10 | Emergency (ER) | payer MEDICAID ==
[2018-03-14 18:31] VITALS: BP 136/74; PULSE 98; RESP 18; TEMP 98.2; O2SAT 97; BMI 26.6
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
== END 2018-03-15 03:42 | disposition left against medical advice (07) ==
LOC: ED 18:10
DX: F10.129 Alcohol abuse with intoxication, unspecified (principal); E11.9 Type 2 diabetes mellitus without complications; F17.200 Nicotine dependence, unspecified, uncomplicated; I10 Essential (primary) hypertension

== ENCOUNTER 2018-03-15 07:24 | Emergency (ER) | payer MEDICAID ==
[2018-03-15 07:29] VITALS: BMI 28.3
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
[2018-03-15 07:50] VITALS: RESP 16; O2SAT 96
[2018-03-15 13:19] VITALS: BP 132/72; PULSE 81; TEMP 97.8
== END 2018-03-15 13:20 | disposition home or self-care (01) ==
LOC: ED 07:24
DX: F10.20 Alcohol dependence, uncomplicated (principal); E11.9 Type 2 diabetes mellitus without complications; F17.200 Nicotine dependence, unspecified, uncomplicated; I10 Essential (primary) hypertension

== ENCOUNTER 2018-03-15 18:42 | Emergency (ER) | payer MEDICAID ==
[2018-03-15 18:42] VITALS: BMI 28.3
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
[2018-03-15 19:08] VITALS: TEMP 97.2
--- NOTE | 2018-03-16 06:41 | ED PDOC ---
Physical Exam Vital Signs Temp Pulse Resp BP Pulse Ox 03/15/18 18:58 97.2 F L 90 20 131/84 99 Disposition/Present on Arrival - Present on Arrival Any Indicators Present on Arrival: No History of DVT/PE: No History of Uncontrolled Diabetes: No Urinary Catheter: No History of Decub. Ulcer: No History Surgical Site Infection Following: None - Disposition Have Diagnosis and Disposition been Completed?: Yes Diagnosis: Alcohol abuse, Alcohol intoxication, General medical exam Disposition: HOME/ ROUTINE Disposition Time: 05:30 Patient Problems: Current Active Problems Problem Status Onset Alcohol intoxication Acute General medical examination Acute Alcohol abuse Chronic Condition: STABLE Discharge Instructions (ExitCare): Alcohol Abuse and Alcoholism (DC), Effects of Alcohol on Your Health Print Language: FRENCH Additional Instructions: Make sure to see your doctor in 1-2 days DRINK PLENTY OF FLUIDS DONT SMOKE DONT DRINK ALCOHOL take your medications as prescribed RETURN TO ED IF worse pain, cant breath, persistent vomiting, high fever >101- 102 for hours, altered behavior, slurr speech, facial changes, focal weakness ( arm/leg or both), unable to urinate, heavy/persistent bleeding, passing out, chest pain, or other medical emergencies Referrals: [facility] [Outside] - Follow up with primary [facility] [Outside] - Follow up with primary [facility] Martha Resendiz, [Primary Care Provider] - Follow up with primary Forms: [employer] (French)
[2018-03-16 06:53] VITALS: O2SAT 98
[2018-03-16 06:54] VITALS: RESP 20
[2018-03-16 06:55] VITALS: BP 128/81; PULSE 72
== END 2018-03-16 07:02 | disposition home or self-care (01) ==
LOC: ED 18:42
DX: Z00.00 Encounter for general adult medical examination without abnormal findings (principal); F10.129 Alcohol abuse with intoxication, unspecified; E11.9 Type 2 diabetes mellitus without complications; F17.200 Nicotine dependence, unspecified, uncomplicated; I10 Essential (primary) hypertension; Z59.0 Homelessness

== ENCOUNTER 2018-03-16 19:45 | Emergency (ER) | payer MEDICAID ==
[2018-03-16 19:49] VITALS: BMI 31.8
[2018-03-16 20:58] VITALS: BP 133/71; PULSE 88; RESP 16; TEMP 98; O2SAT 98
== END 2018-03-16 20:57 | disposition left against medical advice (07) ==
LOC: ED 19:45
DX: Z02.89 Encounter for other administrative examinations (principal); T14.90XA Injury, unspecified, initial encounter

== ENCOUNTER 2018-03-17 12:23 | Emergency (ER) | payer MEDICAID ==
[2018-03-17 14:28] VITALS: BMI 24.9
[2018-03-17 14:29] VITALS: RESP 18
[2018-03-17] MEDS ORDERED: Thiamine 100 mg/ml Inj IM STA (15:46)
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
[2018-03-17 16:25] VITALS: BP 120/68; PULSE 90; TEMP 97.8; O2SAT 96
== END 2018-03-17 19:01 | disposition home or self-care (01) ==
LOC: ED 12:23
DX: F10.10 Alcohol abuse, uncomplicated (principal); E11.9 Type 2 diabetes mellitus without complications; F17.200 Nicotine dependence, unspecified, uncomplicated; I10 Essential (primary) hypertension
CPT/HCPCS: 96372; 99283; J3411

== ENCOUNTER 2018-03-18 20:18 | Emergency (ER) | payer MEDICAID ==
[2018-03-18 20:18] VITALS: BMI 24.9
== END 2018-03-18 22:12 | disposition left against medical advice (07) ==
LOC: ED 20:18
DX: Z02.89 Encounter for other administrative examinations (principal); F10.129 Alcohol abuse with intoxication, unspecified

== ENCOUNTER 2018-03-20 16:57 | Emergency (ER) | payer MEDICAID ==
[2018-03-20 16:58] VITALS: BMI 24.9
[2018-03-20 17:22] VITALS: TEMP 98; O2SAT 100
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
[2018-03-20 23:24] VITALS: BP 136/80; PULSE 87; RESP 18
== END 2018-03-20 22:57 | disposition home or self-care (01) ==
LOC: ED 16:57
DX: F10.129 Alcohol abuse with intoxication, unspecified (principal)

== ENCOUNTER 2018-05-29 13:15 | Emergency (ER) | payer MEDICAID ==
[2018-05-29 13:15] VITALS: BMI 24.9
== END 2018-05-29 13:38 | disposition left against medical advice (07) ==
LOC: ED 13:15
DX: Z02.89 Encounter for other administrative examinations (principal); F10.10 Alcohol abuse, uncomplicated

== ENCOUNTER 2018-06-03 19:16 | Emergency (ER) | payer MEDICAID ==
[2018-06-03 19:17] VITALS: BMI 24.9
[2018-06-03 19:20] VITALS: TEMP 98.2
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
[2018-06-04 01:00] VITALS: RESP 18
[2018-06-04 05:17] VITALS: BP 117/73; PULSE 73; O2SAT 97
== END 2018-06-04 06:18 | disposition home or self-care (01) ==
LOC: ED 19:16
DX: F10.10 Alcohol abuse, uncomplicated (principal)

== ENCOUNTER 2018-06-11 12:34 | Emergency (ER) | payer MEDICAID ==
[2018-06-11 12:35] VITALS: BMI 24.9
[2018-06-11 12:52] VITALS: RESP 18; TEMP 98
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
[2018-06-11 17:25] VITALS: BP 110/61; PULSE 75; O2SAT 100
== END 2018-06-11 17:25 | disposition home or self-care (01) ==
LOC: ED 12:34
DX: F10.129 Alcohol abuse with intoxication, unspecified (principal); E11.9 Type 2 diabetes mellitus without complications; I10 Essential (primary) hypertension

== ENCOUNTER 2018-06-23 14:45 | Emergency (ER) | payer MEDICAID, OTHER ==
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
[2018-06-23 15:15] VITALS: BMI 28.0
[2018-06-23 15:21] VITALS: TEMP 99; O2SAT 96
[2018-06-23 19:17] VITALS: BP 110/65; PULSE 89; RESP 17
== END 2018-06-23 19:16 | disposition home or self-care (01) ==
LOC: ED 14:45
DX: F10.129 Alcohol abuse with intoxication, unspecified (principal); E11.9 Type 2 diabetes mellitus without complications

== ENCOUNTER 2018-06-25 16:27 | Emergency (ER) | payer MEDICAID ==
[2018-06-25 16:27] VITALS: BMI 28.0
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
[2018-06-25 18:51] VITALS: TEMP 98.7; O2SAT 100
[2018-06-25 22:05] VITALS: BP 129/73; PULSE 82; RESP 18
== END 2018-06-25 22:04 | disposition home or self-care (01) ==
LOC: ED 16:27
DX: F10.129 Alcohol abuse with intoxication, unspecified (principal)

== ENCOUNTER 2018-07-20 22:09 | Emergency (ER) | payer MEDICAID ==
[2018-07-20 22:15] VITALS: BMI 27.3
[2018-07-20 22:20] VITALS: TEMP 97.5
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
[2018-07-21 04:30] VITALS: O2SAT 100
[2018-07-21 06:02] VITALS: BP 110/67; PULSE 75; RESP 18
== END 2018-07-21 06:02 | disposition home or self-care (01) ==
LOC: ED 22:09
DX: F10.129 Alcohol abuse with intoxication, unspecified (principal); E11.9 Type 2 diabetes mellitus without complications; I10 Essential (primary) hypertension

== ENCOUNTER 2018-07-23 09:48 | Inpatient (IN) | payer MEDICAID ==
[2018-07-23] MEDS ORDERED: Multivitamin (MVI) 10 ML, Thiamine 100 MG, Folic Acid 1 MG in Sodium Chloride 0.9% 1,00... IV ONE (10:04)
[2018-07-23] MEDS ORDERED: Naloxone 0.4 mg/ml Inj (Adult) IVP STA (10:04)
[2018-07-23] MEDS ORDERED: Sodium Chloride 0.9% 1,000 ML IV SCH (10:15)
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
[2018-07-23 11:24] LABS: VENOUS BLOOD GAS BASE EXCESS -10.5 mmol/L (0.0-2.0); VENOUS BLOOD GAS PO2 56 mm/Hg (30-55); VENOUS BLOOD PH 7.39 (7.32-7.43)
[2018-07-23 11:26] LABS: BASO # 0.01 K/mm3 (0.0-2.0); BASO % 0.1 % (0.0-3.0); GRAN # 16.46 (1.4-6.5); GRAN % 95.7 % (50.0-68.0); HEMOGLOBIN 9.5 g/dL (14.0-18.0); LYMPH # 0.3 (1.2-3.4); LYMPH % 1.9 % (22.0-35.0); MEAN CELL VOLUME 104.1 fl (80.0-105.0); MEAN CORPUSCULAR HEMOGLOBIN 38.9 pg (25.0-35.0); MEAN CORPUSCULAR HGB CONC 37.4 g/dl (31.0-37.0); MEAN PLATELET VOLUME 12.6 fl (7.0-11.0); MONO # 0.4 (0.1-0.6); MONO % 2.3 % (1.0-6.0); PLATELET COUNT 154 10^3/uL (120.0-450.0); RBC 2.44 10^6/uL (3.5-6.1); RED CELL DISTRIBUTION WIDTH 15.7 % (11.5-14.5); WHITE BLOOD COUNT 17.2 10^3/ul (4.5-11.0)
[2018-07-23 11:34] LABS: INR 1.76; PARTIAL THROMBOPLASTIN TIME 35.6 Seconds (25.1-36.5); PROTHROMBIN TIME 20.5 SECONDS (9.4-12.5)
[2018-07-23] MEDS ORDERED: levoFLOXacin 750 mg in D5W 750 MG/150 ML BAG IVPB STA (11:47)
[2018-07-23] MEDS ORDERED: metroNIDAZOLE IV 500 mg/100 ml 500 MG/100 ML BAG IVPB STA (11:47)
[2018-07-23] MEDS ORDERED: Potassium Chloride 10 mEq ER Tab PO STA (11:47)
[2018-07-23 11:48] LABS: B-TYPE NATRIURETIC PEPTIDE 269 pg/mL (0-450); TROPONIN I < 0.01 ng/mL
[2018-07-23 11:49] LABS: ALB/GLOB RATIO 0.7 (1.1-1.8); ALBUMIN 3.5 g/dL (3.0-4.8); ALT/SGPT 72 U/L (7-56); AST/SGOT 411 U/L (17-59); BILIRUBIN,DIRECT 18.4 mg/dL (0.0-0.4); BLOOD UREA NITROGEN 4 mg/dL (7-21); CALCIUM 8.9 mg/dL (8.4-10.5); GFR NON-AFRICAN AMERICAN 54; LIPASE 344 U/L (23-300)
[2018-07-23 11:57] LABS: BAND 6 % (0-2); CK-MB 3.1 ng/mL (0.0-3.6); MONOCYTE 5 % (1.0-6.0); NUCLEATED RED BLOOD CELL 3 %
[2018-07-23 12:06] LABS: LYMPHOCYTE 4 % (22.0-35.0); NEUTROPHIL 85 % (50.0-70.0)
[2018-07-23 13:43] LABS: PH,URINE 6.5 (4.7-8.0); URINE APPEARANCE SL CLOUDY (CLEAR); URINE BILIRUBIN MODERATE (NEGATIVE); URINE BLOOD LARGE (NEGATIVE); URINE COLOR YELLOW (YELLOW); URINE GLUCOSE (UA) NEGATIVE (NEGATIVE); URINE LEUKOCYTE ESTERASE MODERATE Leu/uL (NEGATIVE); URINE PROTEIN 100 mg/dL (<30 mg/dL); URINE UROBILINOGEN 0.2 E.U./dL (<1 E.U./dL)
[2018-07-23 13:56] LABS: URINE RBC 25 - 30 /hpf (0-2)
[2018-07-23 13:57] LABS: URINE BACTERIA MANY (NEG); URINE EPITHELIAL CELLS 0 - 2 /hpf (0-5); URINE WBC 20 - 25 /hpf (0-6)
[2018-07-23 13:58] LABS: URINE COARSE GRANULAR CAST TRACE /hpf (0-2); URINE FINE GRANULAR CAST 0 - 2 /hpf (0-2)
[2018-07-23 13:59] LABS: URINE AMORPHOUS SEDIMENT FEW
[2018-07-23 14:08] LABS: VENOUS BLOOD GAS BASE EXCESS -12.7 mmol/L (0.0-2.0); VENOUS BLOOD GAS PO2 51 mm/Hg (30-55); VENOUS BLOOD PH 7.31 (7.32-7.43)
--- NOTE | 2018-07-23 14:08 | CT ---
Date of service: 07/23/2018 PROCEDURE: CT HEAD WITHOUT CONTRAST. HISTORY: Depressed LOC, Lethargic COMPARISON: 01/18/2018 TECHNIQUE: Axial computed tomography images were obtained through the head/brain without intravenous contrast. Radiation dose: Total exam DLP = 760.12 mGy-cm. This CT exam was performed using one or more of the following dose reduction techniques: Automated exposure control, adjustment of the mA and/or kV according to patient size, and/or use of iterative reconstruction technique. FINDINGS: HEMORRHAGE: No intracranial hemorrhage. BRAIN: No mass effect or edema. Mild diffuse atrophy. Minimal chronic periventricular white matter ischemic change. No evidence of acute infarct. VENTRICLES: Unremarkable. No hydrocephalus. CALVARIUM: Unremarkable. PARANASAL SINUSES: Mild chronic ethmoid, sphenoid and frontal sinusitis. MASTOID AIR CELLS: Unremarkable as visualized. No inflammatory changes. OTHER FINDINGS: None. IMPRESSION: Chronic paranasal sinusitis. Mild atrophy and chronic periventricular white matter ischemic change. No intracranial mass, hemorrhage or evidence of acute infarct.
[2018-07-23 14:09] LABS: BARBITURATES, UR NEGATIVE (NEGATIVE); BENZODIAZEPINES, UR NEGATIVE (NEGATIVE); OPIATES, UR NEGATIVE (NEGATIVE); PHENCYCLIDINE, UR NEGATIVE (NEGATIVE)
--- NOTE | 2018-07-23 14:19 | RAD ---
Date of service: 07/23/2018 HISTORY: unresponsive COMPARISON: No prior. FINDINGS: LUNGS: No active pulmonary disease. PLEURA: No significant pleural effusion identified, no pneumothorax apparent. CARDIOVASCULAR: Normal. OSSEOUS STRUCTURES: No significant abnormalities. VISUALIZED UPPER ABDOMEN: Normal. OTHER FINDINGS: None. IMPRESSION: No active disease.
[2018-07-23] MEDS ORDERED: Potassium Phosphate 15 MMOLE in Sodium Chloride 0.9% 250 ML IVPB ONE (15:16)
[2018-07-23] MEDS ORDERED: Magnesium 2 gm/50 ml NS 2 GM/50 ML BAG IVPB ONE (15:16)
--- NOTE | 2018-07-23 15:25 | CARD ---
APPROVED REPORT Date of service: 07/23/2018 EKG Measurement Heart [id number] NC [id number] <Conclusion> Normal sinus rhythm Normal ECG
--- NOTE | 2018-07-23 15:29 | PCM.SEPTIC ---
Sepsis Progress Note - Reassessment Type Date of Evaluation: 07/23/18 Time of Evaluation: 15:26 Reassessment Type: Non-invasive reassessment - Non Invasive Reassessment Were the most recent vital sign reviewed: Yes Vital Sign (Latest): Temp Pulse Resp BP Pulse Ox 97.5 F L 104 H 16 116/60 99 07/23/18 10:08 07/23/18 13:44 07/23/18 13:44 07/23/18 13:44 07/23/18 13:44 Cardiovascular: Yes: Regular Rate, Rhythm Respiratory: Yes: Normal Breath Sounds Capillary Refill: Normal (Less than 2 sec) Pulses: Normal Radial, Normal Dorsalis Pedis, Normal Posterior Tibialis Skin: Jaundice Was a passive leg raise performed or was a fluid challenge performed within 6 hrs of the initial fluid bolus: Yes Fluid Challenge performed: Yes
[2018-07-23] MEDS ORDERED: Magnesium Sulfate 2 gm/50 ml 2 GM/50 ML BAG IVPB ONE (15:30)
[2018-07-23] MEDS ORDERED: Meropenem 500 MG in Sodium Chloride 0.9% 50 ML IVPB SCH (15:30)
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
[2018-07-23] MEDS ORDERED: Albuterol-Ipratrop 3 mg / 0.5 (3 ml) UD IH PRN (16:06)
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
[2018-07-23] MEDS: Sodium Bicarbonate 8.4% 100 MEQ in Dextrose 5% In Water 1,000 ML IV SCH (17:26)
[2018-07-23] MEDS: PrednisoLONE 15 mg/5 ml Oral Syrup (240 ml) PO SCH (18:09)
[2018-07-23 18:14] LABS: BASO # 0.01 K/mm3 (0.0-2.0); GRAN # 22.96 (1.4-6.5); GRAN % 91.7 % (50.0-68.0); HEMOGLOBIN 8.9 g/dL (14.0-18.0); LYMPH # 0.7 (1.2-3.4); LYMPH % 2.6 % (22.0-35.0); MEAN CELL VOLUME 102.6 fl (80.0-105.0); MEAN CORPUSCULAR HEMOGLOBIN 38.4 pg (25.0-35.0); MEAN CORPUSCULAR HGB CONC 37.4 g/dl (31.0-37.0); MEAN PLATELET VOLUME 11.7 fl (7.0-11.0); MONO # 1.4 (0.1-0.6); MONO % 5.7 % (1.0-6.0); RBC 2.32 10^6/uL (3.5-6.1); RED CELL DISTRIBUTION WIDTH 15.7 % (11.5-14.5)
[2018-07-23 18:26] VITALS: BMI 26.7
[2018-07-23 18:30] LABS: BLOOD UREA NITROGEN 5 mg/dL (7-21); CALCIUM 8.4 mg/dL (8.4-10.5); GFR NON-AFRICAN AMERICAN 50
[2018-07-23 18:34] LABS: WHITE BLOOD COUNT 25.1 10^3/ul (4.5-11.0)
[2018-07-23 19:09] LABS: CREATININE,RANDOM URINE 24 mg/dL
[2018-07-23 19:45] LABS: OSMOLALITY,URINE 194 mosm/kg (300-1000)
[2018-07-23] MEDS: Meropenem IV 1 gm in NS 50 ML IVPB SCH (21:01)
[2018-07-23] MEDS ORDERED: Potassium Chloride 20 mEq ER Tab PO ONE (22:13)
[2018-07-23] MEDS ORDERED: Magnesium Oxide 400 mg Tab UD PO SCH (22:15)
[2018-07-23] MEDS ORDERED: Thiamine 100 mg/ml Inj IV SCH (22:15)
[2018-07-23 22:35] LABS: BLOOD UREA NITROGEN 7 mg/dL (7-21); CALCIUM 8.6 mg/dL (8.4-10.5); GFR NON-AFRICAN AMERICAN 59
[2018-07-23] MEDS: Potassium & Sodium Phosphate PO SCH (23:18)
[2018-07-24] MEDS ORDERED: Sodium Chloride 0.9% 500 ML IV STA (05:00)
[2018-07-24] MEDS ORDERED: Sodium Chloride 0.45% 1,000 ML IV SCH (05:00)
[2018-07-24] MEDS: Thiamine 200 MG in Sodium Chloride 0.9% 100 ML IV SCH ×4 (05:15→22:05)
[2018-07-24] MEDS: Sodium Bicarbonate 8.4% 100 MEQ in Dextrose 5% In Water 1,000 ML IV SCH (05:15)
[2018-07-24 07:00] LABS: BASO # 0.01 K/mm3 (0.0-2.0); GRAN # 21.52 (1.4-6.5); HEMOGLOBIN 9.2 g/dL (14.0-18.0); LYMPH # 0.7 (1.2-3.4); LYMPH % 2.8 % (22.0-35.0); MEAN CELL VOLUME 102.5 fl (80.0-105.0); MEAN CORPUSCULAR HEMOGLOBIN 38.2 pg (25.0-35.0); MEAN CORPUSCULAR HGB CONC 37.2 g/dl (31.0-37.0); MEAN PLATELET VOLUME 11.6 fl (7.0-11.0); MONO % 4.2 % (1.0-6.0); RBC 2.41 10^6/uL (3.5-6.1); RED CELL DISTRIBUTION WIDTH 15.9 % (11.5-14.5); WHITE BLOOD COUNT 23.2 10^3/ul (4.5-11.0)
--- NOTE | 2018-07-24 07:11 | CP.CCUPN ---
CCU Objective - Vital Signs / Intake & Output Vital Signs (Last 4 hours): Vital Signs Pulse Resp 07/24/18 03:50 84 19 07/24/18 03:40 85 19 07/24/18 03:30 85 18 07/24/18 03:20 83 16 Intake and Output (Last 8hrs): Intake & Output 07/23/18 07/24/18 07/24/18 22:59 06:59 14:59 Intake Total 2600 Output Total 300 Balance 2300 Weight 60.01 kg Intake: IV 2600 Right Wrist 2600 Oral 0 Output: Stool 0 Emesis 300 Other: Voiding Method Urinal - Physical Exam Head: Positive for: Atraumatic, Normocephalic Pupils: Positive for: PERRL Extroacular Muscles: Positive for: EOMI Conjunctiva: Positive for: Normal, Icteric Ears: Positive for: Normal Mouth: Positive for: Dry. Negative for: Moist Mucous Membranes Neck: Positive for: Normal Range of Motion Respiratory/Chest: Positive for: Decreased Breath Sounds, Rhonchi (bilaterally) . Negative for: Accessory Muscle Use, Wheezes, Retracting Cardiovascular: Positive for: Regular Rate and Rhythm, Normal S1, S2, Peripheal Pulses Present, Tachycardic. Negative for: Murmurs Abdomen: Positive for: Tenderness, Distention, Guarding (epigastric > RUQ). Negative for: Peritoneal Signs, Rebound, Rovsing's Sign Present Back: Positive for: Normal Inspection. Negative for: CVA Tenderness Upper Extremity: Positive for: Normal Inspection, Other (markedly darkened skin bilaterally in comparison to other exposed parts of body) Lower Extremity: Positive for: Normal Inspection. Negative for: Edema, CALF TENDERNESS Neurological: Positive for: GCS=15, CN II-XII Intact, Speech Normal Skin: Positive for: Warm, Dry. Negative for: Normal Color (juandice), Diaphoretic Psychiatric: Positive for: Alert, Normal Concentration, Intoxicated. Negative for: Oriented x 3 (x2 . No AMS) - Medications Active Medications: Active Medications Generic Name Dose Route Start Last Admin Trade Name Freq PRN Reason Stop Dose Admin Albuterol/Ipratropium 3 ml 07/23/18 16:06 Duoneb 3 Mg/0.5 Mg (3 Ml) Ud IH [id number] PRN Wheezing Famotidine 20 mg 07/23/18 15:45 07/23/18 17:19 Pepcid IVP 20 mg DAILY VÍCTOR Administration Folic Acid 1 mg 07/23/18 16:15 07/23/18 17:28 Folic Acid PO 1 mg DAILY VÍCTOR Administration Vancomycin HCl 1 gm in 250 mls @ 167 mls/hr 07/24/18 10:00 Vancomycin 1gm IVPB DAILY VÍCTOR Protocol Sodium Bicarbonate 100 meq/ 1,100 mls @ 100 mls/hr 07/23/18 17:00 07/24/18 05 :15 Dextrose IV 100 mls/hr .Q11H VÍCTOR Administration Meropenem 50 mls @ 100 mls/hr 07/23/18 22:00 07/23/18 21:01 Merrem Iv 1 Gm Premix IVPB 07/30/18 22:01 100 mls/hr Q12 VÍCTOR Administration Protocol Thiamine HCl 200 mg/ Sodium 102 mls @ 202 mls/hr 07/23/18 22:15 07/24/18 05: 15 Chloride IV 202 mls/hr Q8 VÍCTOR Administration Potassium Chloride 10 meq in 100 mls @ 50 mls/hr 07/24/18 05:00 Potassium Chloride 10 Meq/100 Ml IVPB 07/24/18 08:59 Q2H VÍCTOR Lactulose 20 gm 07/23/18 18:00 07/23/18 17:19 Enulose PO 20 gm TID VÍCTOR Administration Lorazepam 1 mg 07/23/18 15:16 07/23/18 20:52 Ativan IVP 1 mg Q2H PRN Administration Symptoms of alcohol withdrawl Protocol Magnesium Oxide 800 mg 07/23/18 22:15 07/23/18 23:18 Mag-Ox PO 800 mg BID VÍCTOR Administration Multivitamins 1 tab 07/24/18 08:00 Thera Tab PO 0800 VÍCTOR Nicotine 1 patch 07/23/18 16:15 07/23/18 17:20 Nicoderm Cq TD 1 patch DAILY VÍCTOR Administration Potassium Phos/Sodium Phos 1 pkt 07/23/18 22:15 07/23/18 23:18 Neutra-Phos PO 07/26/18 22:16 1 pkt BID VÍCTOR Administration Prednisolone 40 mg 07/23/18 15:30 07/23/18 18:09 Prednisolone Oral Soln PO 5 ml DAILY VÍCTOR Administration - Patient Studies Lab Studies: Lab Studies 07/23/18 07/23/18 07/23/18 Range/Units 22:13 18:40 18:00 WBC 25.1 H* D (4.5-11.0) 10^3/ul RBC 2.32 L (3.5-6.1) 10^6/uL Hgb 8.9 L (14.0-18.0) g/dL Hct 23.8 L (42.0-52.0) % MCV 102.6 (80.0-105.0) fl MCH 38.4 H (25.0-35.0) pg MCHC 37.4 H (31.0-37.0) g/dl RDW 15.7 H (11.5-14.5) % Plt Count 70 L (120.0-450.0) 10^3/uL MPV 11.7 H (7.0-11.0) fl Gran % 91.7 H (50.0-68.0) % Lymph % (Auto) 2.6 L (22.0-35.0) % [place] % (Auto) 5.7 (1.0-6.0) % Eos % (Auto) 0.0 L (1.5-5.0) % Baso % (Auto) 0.0 (0.0-3.0) % Gran # 22.96 H (1.4-6.5) Lymph # (Auto) 0.7 L (1.2-3.4) [place] # (Auto) 1.4 H (0.1-0.6) Eos # (Auto) 0.0 (0.0-0.7) Baso # (Auto) 0.01 (0.0-2.0) K/mm3 pO2 (30-55) mm/Hg VBG pH (7.32-7.43) VBG pCO2 (40-60) VBG HCO3 (21-28) mmol/l VBG Total CO2 (22-28) mmol.L VBG O2 Sat (Calc) (40-65) % VBG Base Excess (0.0-2.0) mmol/L VBG Potassium (3.6-5.2) mmol/L Sodium 126 L (132-148) mmol/L Chloride 91 L (98-107) mmol/L Glucose (75-110) mg/dl Lactate (0.7-2.1) mmol/L FiO2 % Potassium 2.6 L* (3.6-5.0) mmol/L Carbon Dioxide 21 (21-33) mmol/L Anion Gap 17 (10-20) BUN 7 (7-21) mg/dL Creatinine 1.3 (0.8-1.5) mg/dl Est GFR ( Amer) > 60 Est GFR (Non-Af Amer) 59 Random Glucose 132 H (70-110) mg/dL Serum Osmolality (272-300) mosm/kg Calcium 8.6 (8.4-10.5) mg/dL Venous Blood Potassium (3.6-5.2) mmol/L Urine Color (YELLOW) Urine Appearance (CLEAR) Urine pH (4.7-8.0) Ur Specific [place] (1.005-1.035) Urine Protein (<30 mg/dL) mg/dL Urine Glucose (UA) (NEGATIVE) mg/dL Urine Ketones (NEGATIVE) mg/dL Urine Blood (NEGATIVE) Urine Nitrate (NEGATIVE) Urine Bilirubin (NEGATIVE) Urine Urobilinogen (<1 E.U./dL) E.U./dL Ur Leukocyte Esterase (NEGATIVE) Ty/uL Urine RBC (0-2) /hpf Urine WBC (0-6) /hpf Ur Epithelial Cells (0-5) /hpf Amorphous Sediment Urine Bacteria (NEG) Fine Granular Casts (0-2) /hpf Coarse Granular Casts (0-2) /hpf Urine Other Urine Osmolality 194 L (300-1000) mosm/kg Ur Random Creatinine 24 mg/dL Ur Random Sodium 61 meq/L Ur Random Potassium 27.6 meq/L Ur Random Urea Nitrogn < 67 mg/dL Urine Opiates Screen (NEGATIVE) Urine Methadone Screen (NEGATIVE) Ur Barbiturates Screen (NEGATIVE) Ur Phencyclidine Scrn (NEGATIVE) Ur Amphetamines Screen (NEGATIVE) U Benzodiazepines Scrn (NEGATIVE) U Oth Cocaine Metabols (NEGATIVE) U Cannabinoids Screen (NEGATIVE) 07/23/18 07/23/18 07/23/18 Range/Units 18:00 18:00 13:20 WBC (4.5-11.0) 10^3/ul RBC (3.5-6.1) 10^6/uL Hgb (14.0-18.0) g/dL Hct (42.0-52.0) % MCV (80.0-105.0) fl MCH (25.0-35.0) pg MCHC (31.0-37.0) g/dl RDW (11.5-14.5) % Plt Count (120.0-450.0) 10^3/uL MPV (7.0-11.0) fl Gran % (50.0-68.0) % Lymph % (Auto) (22.0-35.0) % [place] % (Auto) (1.0-6.0) % Eos % (Auto) (1.5-5.0) % Baso % (Auto) (0.0-3.0) % Gran # (1.4-6.5) Lymph # (Auto) (1.2-3.4) [place] # (Auto) (0.1-0.6) Eos # (Auto) (0.0-0.7) Baso # (Auto) (0.0-2.0) K/mm3 pO2 51 (30-55) mm/Hg VBG pH 7.31 L (7.32-7.43) VBG pCO2 23.0 L (40-60) VBG HCO3 11.6 L (21-28) mmol/l VBG Total CO2 12.3 L (22-28) mmol.L VBG O2 Sat (Calc) 85.8 H (40-65) % VBG Base Excess -12.7 L (0.0-2.0) mmol/L VBG Potassium 1.3 L* (3.6-5.2) mmol/L Sodium 122 L 126.0 L (132-148) mmol/L Chloride 87 L 94.0 L (98-107) mmol/L Glucose 63 L (75-110) mg/dl Lactate 9.0 H* (0.7-2.1) mmol/L FiO2 21.0 % Potassium 2.3 L* (3.6-5.0) mmol/L Carbon Dioxide 16 L (21-33) mmol/L Anion Gap 21 H (10-20) BUN 5 L (7-21) mg/dL Creatinine 1.5 (0.8-1.5) mg/dl Est GFR ( Amer) > 60 Est GFR (Non-Af Amer) 50 Random Glucose 100 (70-110) mg/dL Serum Osmolality 249 L (272-300) mosm/kg Calcium 8.4 (8.4-10.5) mg/dL Venous Blood Potassium 1.3 L* (3.6-5.2) mmol/L Urine Color (YELLOW) Urine Appearance (CLEAR) Urine pH (4.7-8.0) Ur Specific [place] (1.005-1.035) Urine Protein (<30 mg/dL) mg/dL Urine Glucose (UA) (NEGATIVE) mg/dL Urine Ketones (NEGATIVE) mg/dL Urine Blood (NEGATIVE) Urine Nitrate (NEGATIVE) Urine Bilirubin (NEGATIVE) Urine Urobilinogen (<1 E.U./dL) E.U./dL Ur Leukocyte Esterase (NEGATIVE) Ty/uL Urine RBC (0-2) /hpf Urine WBC (0-6) /hpf Ur Epithelial Cells (0-5) /hpf Amorphous Sediment Urine Bacteria (NEG) Fine Granular Casts (0-2) /hpf Coarse Granular Casts (0-2) /hpf Urine Other Urine Osmolality (300-1000) mosm/kg Ur Random Creatinine mg/dL Ur Random Sodium meq/L Ur Random Potassium meq/L Ur Random Urea Nitrogn mg/dL Urine Opiates Screen (NEGATIVE) Urine Methadone Screen (NEGATIVE) Ur Barbiturates Screen (NEGATIVE) Ur Phencyclidine Scrn (NEGATIVE) Ur Amphetamines Screen (NEGATIVE) U Benzodiazepines Scrn (NEGATIVE) U Oth Cocaine Metabols (NEGATIVE) U Cannabinoids Screen (NEGATIVE) 07/23/18 07/23/18 Range/Units 13:00 13:00 WBC (4.5-11.0) 10^3/ul RBC (3.5-6.1) 10^6/uL Hgb (14.0-18.0) g/dL Hct (42.0-52.0) % MCV (80.0-105.0) fl MCH (25.0-35.0) pg MCHC (31.0-37.0) g/dl RDW (11.5-14.5) % Plt Count (120.0-450.0) 10^3/uL MPV (7.0-11.0) fl Gran % (50.0-68.0) % Lymph % (Auto) (22.0-35.0) % [place] % (Auto) (1.0-6.0) % Eos % (Auto) (1.5-5.0) % Baso % (Auto) (0.0-3.0) % Gran # (1.4-6.5) Lymph # (Auto) (1.2-3.4) [place] # (Auto) (0.1-0.6) Eos # (Auto) (0.0-0.7) Baso # (Auto) (0.0-2.0) K/mm3 pO2 (30-55) mm/Hg VBG pH (7.32-7.43) VBG pCO2 (40-60) VBG HCO3 (21-28) mmol/l VBG Total CO2 (22-28) mmol.L VBG O2 Sat (Calc) (40-65) % VBG Base Excess (0.0-2.0) mmol/L VBG Potassium (3.6-5.2) mmol/L Sodium (132-148) mmol/L Chloride (98-107) mmol/L Glucose (75-110) mg/dl Lactate (0.7-2.1) mmol/L FiO2 % Potassium (3.6-5.0) mmol/L Carbon Dioxide (21-33) mmol/L Anion Gap (10-20) BUN (7-21) mg/dL Creatinine (0.8-1.5) mg/dl Est GFR ( Amer) Est GFR (Non-Af Amer) Random Glucose (70-110) mg/dL Serum Osmolality (272-300) mosm/kg Calcium (8.4-10.5) mg/dL Venous Blood Potassium (3.6-5.2) mmol/L Urine Color Yellow (YELLOW) Urine Appearance Sl cloudy (CLEAR) Urine pH 6.5 (4.7-8.0) Ur Specific [place] 1.010 (1.005-1.035) Urine Protein 100 H (<30 mg/dL) mg/dL Urine Glucose (UA) Negative (NEGATIVE) mg/dL Urine Ketones Negative (NEGATIVE) mg/dL Urine Blood Large H (NEGATIVE) Urine Nitrate Negative (NEGATIVE) Urine Bilirubin Moderate H (NEGATIVE) Urine Urobilinogen 0.2 (<1 E.U./dL) E.U./dL Ur Leukocyte Esterase Moderate H (NEGATIVE) Ty/uL Urine RBC 25 - 30 (0-2) /hpf Urine WBC 20 - 25 (0-6) /hpf Ur Epithelial Cells 0 - 2 (0-5) /hpf Amorphous Sediment Few Urine Bacteria Many (NEG) Fine Granular Casts 0 - 2 (0-2) /hpf Coarse Granular Casts Trace H (0-2) /hpf Urine Other Uyeast Urine Osmolality (300-1000) mosm/kg Ur Random Creatinine mg/dL Ur Random Sodium meq/L Ur Random Potassium meq/L Ur Random Urea Nitrogn mg/dL Urine Opiates Screen Negative (NEGATIVE) Urine Methadone Screen Negative (NEGATIVE) Ur Barbiturates Screen Negative (NEGATIVE) Ur Phencyclidine Scrn Negative (NEGATIVE) Ur Amphetamines Screen Negative (NEGATIVE) U Benzodiazepines Scrn Negative (NEGATIVE) U Oth Cocaine Metabols Negative (NEGATIVE) U Cannabinoids Screen Negative (NEGATIVE) Laboratory Results - last 24 hr 07/23/18 07/23/18 07/23/18 13:00 13:00 13:20 WBC RBC Hgb Hct MCV MCH MCHC RDW Plt Count MPV Gran % Lymph % (Auto) [place] % (Auto) Eos % (Auto) Baso % (Auto) Gran # Lymph # (Auto) [place] # (Auto) Eos # (Auto) Baso # (Auto) pO2 51 VBG pH 7.31 L VBG pCO2 23.0 L VBG HCO3 11.6 L VBG Total CO2 12.3 L VBG O2 Sat (Calc) 85.8 H VBG Base Excess -12.7 L VBG Potassium 1.3 L* Sodium 126.0 L Chloride 94.0 L Glucose 63 L Lactate 9.0 H* FiO2 21.0 Potassium Carbon Dioxide Anion Gap BUN Creatinine Est GFR ( Amer) Est GFR (Non-Af Amer) Random Glucose Serum Osmolality Calcium Venous Blood Potassium 1.3 L* Urine Color Yellow Urine Appearance Sl cloudy Urine pH 6.5 Ur Specific [place] 1.010 Urine Protein 100 H Urine Glucose (UA) Negative Urine Ketones Negative Urine Blood Large H Urine Nitrate Negative Urine Bilirubin Moderate H Urine Urobilinogen 0.2 Ur Leukocyte Esterase Moderate H Urine RBC 25 - 30 Urine WBC 20 - 25 Ur Epithelial Cells 0 - 2 Amorphous Sediment Few Urine Bacteria Many Fine Granular Casts 0 - 2 Coarse Granular Casts Trace H Urine Other Uyeast Urine Osmolality Ur Random Creatinine Ur Random Sodium Ur Random Potassium Ur Random Urea Nitrogn Urine Opiates Screen Negative Urine Methadone Screen Negative Ur Barbiturates Screen Negative Ur Phencyclidine Scrn Negative Ur Amphetamines Screen Negative U Benzodiazepines Scrn Negative U Oth Cocaine Metabols Negative U Cannabinoids Screen Negative 07/23/18 07/23/18 07/23/18 18:00 18:00 18:00 WBC 25.1 H* D RBC 2.32 L Hgb 8.9 L Hct 23.8 L MCV 102.6 MCH 38.4 H MCHC 37.4 H RDW 15.7 H Plt Count 70 L MPV 11.7 H Gran % 91.7 H Lymph % (Auto) 2.6 L [place] % (Auto) 5.7 Eos % (Auto) 0.0 L Baso % (Auto) 0.0 Gran # 22.96 H Lymph # (Auto) 0.7 L [place] # (Auto) 1.4 H Eos # (Auto) 0.0 Baso # (Auto) 0.01 pO2 VBG pH VBG pCO2 VBG HCO3 VBG Total CO2 VBG O2 Sat (Calc) VBG Base Excess VBG Potassium Sodium 122 L Chloride 87 L Glucose Lactate FiO2 Potassium 2.3 L* Carbon Dioxide 16 L Anion Gap 21 H BUN 5 L Creatinine 1.5 Est GFR ( Amer) > 60 Est GFR (Non-Af Amer) 50 Random Glucose 100 Serum Osmolality 249 L Calcium 8.4 Venous Blood Potassium Urine Color Urine Appearance Urine pH Ur Specific [place] Urine Protein Urine Glucose (UA) Urine Ketones Urine Blood Urine Nitrate Urine Bilirubin Urine Urobilinogen Ur Leukocyte Esterase Urine RBC Urine WBC Ur Epithelial Cells Amorphous Sediment Urine Bacteria Fine Granular Casts Coarse Granular Casts Urine Other Urine Osmolality Ur Random Creatinine Ur Random Sodium Ur Random Potassium Ur Random Urea Nitrogn Urine Opiates Screen Urine Methadone Screen Ur Barbiturates Screen Ur Phencyclidine Scrn Ur Amphetamines Screen U Benzodiazepines Scrn U Oth Cocaine Metabols U Cannabinoids Screen 07/23/18 07/23/18 18:40 22:13 WBC RBC Hgb Hct MCV MCH MCHC RDW Plt Count MPV Gran % Lymph % (Auto) [place] % (Auto) Eos % (Auto) Baso % (Auto) Gran # Lymph # (Auto) [place] # (Auto) Eos # (Auto) Baso # (Auto) pO2 VBG pH VBG pCO2 VBG HCO3 VBG Total CO2 VBG O2 Sat (Calc) VBG Base Excess VBG Potassium Sodium 126 L Chloride 91 L Glucose Lactate FiO2 Potassium 2.6 L* Carbon Dioxide 21 Anion Gap 17 BUN 7 Creatinine 1.3 Est GFR ( Amer) > 60 Est GFR (Non-Af Amer) 59 Random Glucose 132 H Serum Osmolality Calcium 8.6 Venous Blood Potassium Urine Color Urine Appearance Urine pH Ur Specific [place] Urine Protein Urine Glucose (UA) Urine Ketones Urine Blood Urine Nitrate Urine Bilirubin Urine Urobilinogen Ur Leukocyte Esterase Urine RBC Urine WBC Ur Epithelial Cells Amorphous Sediment Urine Bacteria Fine Granular Casts Coarse Granular Casts Urine Other Urine Osmolality 194 L Ur Random Creatinine 24 Ur Random Sodium 61 Ur Random Potassium 27.6 Ur Random Urea Nitrogn < 67 Urine Opiates Screen Urine Methadone Screen Ur Barbiturates Screen Ur Phencyclidine Scrn Ur Amphetamines Screen U Benzodiazepines Scrn U Oth Cocaine Metabols U Cannabinoids Screen Fingerstick Blood Sugar Results: 95
[2018-07-24 07:26] LABS: VENOUS BLOOD GAS BASE EXCESS 8.6 mmol/L (0.0-2.0); VENOUS BLOOD GAS PO2 74 mm/Hg (30-55); VENOUS BLOOD PH 7.54 (7.32-7.43)
[2018-07-24 07:44] LABS: ALB/GLOB RATIO 0.6 (1.1-1.8); ALBUMIN 3.1 g/dL (3.0-4.8); ALT/SGPT 82 U/L (7-56); AST/SGOT 466 U/L (17-59); BLOOD UREA NITROGEN 10 mg/dL (7-21); CALCIUM 8.4 mg/dL (8.4-10.5); GFR NON-AFRICAN AMERICAN > 60
--- NOTE | 2018-07-24 08:27 | CP.CCUPN ---
<Asiya An - Last Filed: 07/24/18 11:29> CCU Subjective - Physician Review Subjective (Free Text): Patient is resting comfortably in bed. Hypotensive episode overnight resolved with 500ml bolus NS. Patient is becoming slightly more confused and agitated. He is unable to recall the president or the date. patient c/o neck and back pain , he admits a fall yesterday and thinks this may be related. Otherwise denies itching, CP, SOB, abdominal pain, difficulty moving extremities. 07/24/18 08:21 07/24/18 08:43 CCU Objective - Vital Signs / Intake & Output Intake and Output (Last 8hrs): Intake & Output 07/23/18 07/24/18 07/24/18 22:59 06:59 14:59 Intake Total 2600 Output Total 300 Balance 2300 Weight 132 lb 4.8 oz Intake: IV 2600 Right Wrist 2600 Oral 0 Output: Stool 0 Emesis 300 Other: Voiding Method Urinal - Physical Exam Head: Positive for: Atraumatic, Normocephalic Pupils: Positive for: PERRL Extroacular Muscles: Positive for: EOMI Conjunctiva: Positive for: Normal, Icteric Ears: Positive for: Normal Mouth: Positive for: Dry. Negative for: Moist Mucous Membranes Neck: Positive for: Normal Range of Motion Respiratory/Chest: Positive for: Decreased Breath Sounds, Rhonchi (bilaterally) . Negative for: Accessory Muscle Use, Wheezes, Retracting Cardiovascular: Positive for: Regular Rate and Rhythm, Normal S1, S2, Peripheal Pulses Present, Tachycardic. Negative for: Murmurs Abdomen: Positive for: Tenderness, Distention, Guarding (epigastric > RUQ). Negative for: Peritoneal Signs, Rebound, Rovsing's Sign Present Back: Positive for: Normal Inspection. Negative for: CVA Tenderness Upper Extremity: Positive for: Normal Inspection, Other (markedly darkened skin bilaterally below short sleeved area) Lower Extremity: Positive for: Normal Inspection, NORMAL PULSES. Negative for: Edema, CALF TENDERNESS Neurological: Positive for: GCS=15, CN II-XII Intact, Speech Normal, Motor Func Grossly Intact, Other (difficulty with finger to nose test due to shaking) Skin: Positive for: Warm, Dry. Negative for: Normal Color (diffuse moderate to severe jaundice), Diaphoretic Psychiatric: Positive for: Alert, Normal Concentration, Lethargic. Negative for : Oriented x 3 (knows place and person but not date or president), Normal Affect (slowed responses but alert, nonlethargic) - Medications Active Medications: Active Medications Generic Name Dose Route Start Last Admin Trade Name Freq PRN Reason Stop Dose Admin Albuterol/Ipratropium 3 ml 07/23/18 16:06 Duoneb 3 Mg/0.5 Mg (3 Ml) Ud IH [id number] PRN Wheezing Famotidine 20 mg 07/23/18 15:45 07/23/18 17:19 Pepcid IVP 20 mg DAILY VÍCTOR Administration Folic Acid 1 mg 07/23/18 16:15 07/23/18 17:28 Folic Acid PO 1 mg DAILY VÍCTOR Administration Vancomycin HCl 1 gm in 250 mls @ 167 mls/hr 07/24/18 10:00 Vancomycin 1gm IVPB DAILY VÍCTOR Protocol Meropenem 50 mls @ 100 mls/hr 07/23/18 22:00 07/23/18 21:01 Merrem Iv 1 Gm Premix IVPB 07/30/18 22:01 100 mls/hr Q12 VÍCTOR Administration Protocol Thiamine HCl 200 mg/ Sodium 102 mls @ 202 mls/hr 07/23/18 22:15 07/24/18 05: 15 Chloride IV 202 mls/hr Q8 VÍCTOR Administration Potassium Chloride 10 meq in 100 mls @ 50 mls/hr 07/24/18 05:00 Potassium Chloride 10 Meq/100 Ml IVPB 07/24/18 08:59 Q2H VÍCTOR Dextrose 1,000 mls @ 125 mls/hr 07/24/18 08:15 Dextrose 5% In Water 1000 Ml IV .Q8H VÍCTOR Lactulose 20 gm 07/23/18 18:00 07/23/18 17:19 Enulose PO 20 gm TID VÍCTOR Administration Lorazepam 1 mg 07/23/18 15:16 07/23/18 20:52 Ativan IVP 1 mg Q2H PRN Administration Symptoms of alcohol withdrawl Protocol Magnesium Oxide 800 mg 07/23/18 22:15 07/23/18 23:18 Mag-Ox PO 800 mg BID VÍCTOR Administration Multivitamins 1 tab 07/24/18 08:00 Thera Tab PO 0800 VÍCTOR Nicotine 1 patch 07/23/18 16:15 07/23/18 17:20 Nicoderm Cq TD 1 patch DAILY VÍCTOR Administration Potassium Phos/Sodium Phos 1 pkt 07/23/18 22:15 07/23/18 23:18 Neutra-Phos PO 07/26/18 22:16 1 pkt BID VÍCTOR Administration Prednisolone 40 mg 07/23/18 15:30 07/23/18 18:09 Prednisolone Oral Soln PO 5 ml DAILY VCÍTOR Administration - Patient Studies Lab Studies: Lab Studies 07/24/18 07/24/18 07/24/18 Range/Units 07:20 06:30 06:30 WBC 23.2 H (4.5-11.0) 10^3/ul RBC 2.41 L (3.5-6.1) 10^6/uL Hgb 9.2 L (14.0-18.0) g/dL Hct 24.7 L (42.0-52.0) % MCV 102.5 (80.0-105.0) fl MCH 38.2 H (25.0-35.0) pg MCHC 37.2 H (31.0-37.0) g/dl RDW 15.9 H (11.5-14.5) % Plt Count 73 L (120.0-450.0) 10^3/uL MPV 11.6 H (7.0-11.0) fl Gran % 93.0 H (50.0-68.0) % Lymph % (Auto) 2.8 L (22.0-35.0) % [place] % (Auto) 4.2 (1.0-6.0) % Eos % (Auto) 0.0 L (1.5-5.0) % Baso % (Auto) 0.0 (0.0-3.0) % Gran # 21.52 H (1.4-6.5) Lymph # (Auto) 0.7 L (1.2-3.4) [place] # (Auto) 1.0 H (0.1-0.6) Eos # (Auto) 0.0 (0.0-0.7) Baso # (Auto) 0.01 (0.0-2.0) K/mm3 pO2 74 H (30-55) mm/Hg VBG pH 7.54 H (7.32-7.43) VBG pCO2 37.0 L (40-60) VBG HCO3 31.6 H (21-28) mmol/l VBG Total CO2 32.7 H (22-28) mmol.L VBG O2 Sat (Calc) 100.6 H (40-65) % VBG Base Excess 8.6 H (0.0-2.0) mmol/L VBG Potassium 1.9 L* (3.6-5.2) mmol/L Sodium 128.0 L 130 L (132-148) mmol/L Chloride 91.0 L 89 L (98-107) mmol/L Glucose 143 H (75-110) mg/dl Lactate 1.8 (0.7-2.1) mmol/L FiO2 21.0 % Potassium 2.3 L* (3.6-5.0) mmol/L Carbon Dioxide 28 (21-33) mmol/L Anion Gap 15 (10-20) BUN 10 (7-21) mg/dL Creatinine 1.0 (0.8-1.5) mg/dl Est GFR ( Amer) > 60 Est GFR (Non-Af Amer) > 60 Random Glucose 135 H (70-110) mg/dL Serum Osmolality (272-300) mosm/kg Calcium 8.4 (8.4-10.5) mg/dL Phosphorus 2.6 (2.5-4.5) mg/dL Magnesium 2.2 (1.7-2.2) mg/dL Total Bilirubin 23.4 H* (0.2-1.3) mg/dL AST 466 H (17-59) U/L ALT 82 H (7-56) U/L Alkaline Phosphatase 180 H D (38-126) U/L Total Protein 8.0 (5.8-8.3) g/dL Albumin 3.1 (3.0-4.8) g/dL Globulin 4.9 gm/dL Albumin/Globulin Ratio 0.6 L (1.1-1.8) Venous Blood Potassium 1.9 L* (3.6-5.2) mmol/L Urine Color (YELLOW) Urine Appearance (CLEAR) Urine pH (4.7-8.0) Ur Specific [place] (1.005-1.035) Urine Protein (<30 mg/dL) mg/dL Urine Glucose (UA) (NEGATIVE) mg/dL Urine Ketones (NEGATIVE) mg/dL Urine Blood (NEGATIVE) Urine Nitrate (NEGATIVE) Urine Bilirubin (NEGATIVE) Urine Urobilinogen (<1 E.U./dL) E.U./dL Ur Leukocyte Esterase (NEGATIVE) Ty/uL Urine RBC (0-2) /hpf Urine WBC (0-6) /hpf Ur Epithelial Cells (0-5) /hpf Amorphous Sediment Urine Bacteria (NEG) Fine Granular Casts (0-2) /hpf Coarse Granular Casts (0-2) /hpf Urine Other Urine Osmolality (300-1000) mosm/kg Ur Random Creatinine mg/dL Ur Random Sodium meq/L Ur Random Potassium meq/L Ur Random Urea Nitrogn mg/dL Urine Opiates Screen (NEGATIVE) Urine Methadone Screen (NEGATIVE) Ur Barbiturates Screen (NEGATIVE) Ur Phencyclidine Scrn (NEGATIVE) Ur Amphetamines Screen (NEGATIVE) U Benzodiazepines Scrn (NEGATIVE) U Oth Cocaine Metabols (NEGATIVE) U Cannabinoids Screen (NEGATIVE) 07/23/18 07/23/18 07/23/18 Range/Units 22:13 18:40 18:00 WBC 25.1 H* D (4.5-11.0) 10^3/ul RBC 2.32 L (3.5-6.1) 10^6/uL Hgb 8.9 L (14.0-18.0) g/dL Hct 23.8 L (42.0-52.0) % MCV 102.6 (80.0-105.0) fl MCH 38.4 H (25.0-35.0) pg MCHC 37.4 H (31.0-37.0) g/dl RDW 15.7 H (11.5-14.5) % Plt Count 70 L (120.0-450.0) 10^3/uL MPV 11.7 H (7.0-11.0) fl Gran % 91.7 H (50.0-68.0) % Lymph % (Auto) 2.6 L (22.0-35.0) % [place] % (Auto) 5.7 (1.0-6.0) % Eos % (Auto) 0.0 L (1.5-5.0) % Baso % (Auto) 0.0 (0.0-3.0) % Gran # 22.96 H (1.4-6.5) Lymph # (Auto) 0.7 L (1.2-3.4) [place] # (Auto) 1.4 H (0.1-0.6) Eos # (Auto) 0.0 (0.0-0.7) Baso # (Auto) 0.01 (0.0-2.0) K/mm3 pO2 (30-55) mm/Hg VBG pH (7.32-7.43) VBG pCO2 (40-60) VBG HCO3 (21-28) mmol/l VBG Total CO2 (22-28) mmol.L VBG O2 Sat (Calc) (40-65) % VBG Base Excess (0.0-2.0) mmol/L VBG Potassium (3.6-5.2) mmol/L Sodium 126 L (132-148) mmol/L Chloride 91 L (98-107) mmol/L Glucose (75-110) mg/dl Lactate (0.7-2.1) mmol/L FiO2 % Potassium 2.6 L* (3.6-5.0) mmol/L Carbon Dioxide 21 (21-33) mmol/L Anion Gap 17 (10-20) BUN 7 (7-21) mg/dL Creatinine 1.3 (0.8-1.5) mg/dl Est GFR ( Amer) > 60 Est GFR (Non-Af Amer) 59 Random Glucose 132 H (70-110) mg/dL Serum Osmolality (272-300) mosm/kg Calcium 8.6 (8.4-10.5) mg/dL Phosphorus (2.5-4.5) mg/dL Magnesium (1.7-2.2) mg/dL Total Bilirubin (0.2-1.3) mg/dL AST (17-59) U/L ALT (7-56) U/L Alkaline Phosphatase (38-126) U/L Total Protein (5.8-8.3) g/dL Albumin (3.0-4.8) g/dL Globulin gm/dL Albumin/Globulin Ratio (1.1-1.8) Venous Blood Potassium (3.6-5.2) mmol/L Urine Color (YELLOW) Urine Appearance (CLEAR) Urine pH (4.7-8.0) Ur Specific [place] (1.005-1.035) Urine Protein (<30 mg/dL) mg/dL Urine Glucose (UA) (NEGATIVE) mg/dL Urine Ketones (NEGATIVE) mg/dL Urine Blood (NEGATIVE) Urine Nitrate (NEGATIVE) Urine Bilirubin (NEGATIVE) Urine Urobilinogen (<1 E.U./dL) E.U./dL Ur Leukocyte Esterase (NEGATIVE) Ty/uL Urine RBC (0-2) /hpf Urine WBC (0-6) /hpf Ur Epithelial Cells (0-5) /hpf Amorphous Sediment Urine Bacteria (NEG) Fine Granular Casts (0-2) /hpf Coarse Granular Casts (0-2) /hpf Urine Other Urine Osmolality 194 L (300-1000) mosm/kg Ur Random Creatinine 24 mg/dL Ur Random Sodium 61 meq/L Ur Random Potassium 27.6 meq/L Ur Random Urea Nitrogn < 67 mg/dL Urine Opiates Screen (NEGATIVE) Urine Methadone Screen (NEGATIVE) Ur Barbiturates Screen (NEGATIVE) Ur Phencyclidine Scrn (NEGATIVE) Ur Amphetamines Screen (NEGATIVE) U Benzodiazepines Scrn (NEGATIVE) U Oth Cocaine Metabols (NEGATIVE) U Cannabinoids Screen (NEGATIVE) 07/23/18 07/23/18 07/23/18 Range/Units 18:00 18:00 13:20 WBC (4.5-11.0) 10^3/ul RBC (3.5-6.1) 10^6/uL Hgb (14.0-18.0) g/dL Hct (42.0-52.0) % MCV (80.0-105.0) fl MCH (25.0-35.0) pg MCHC (31.0-37.0) g/dl RDW (11.5-14.5) % Plt Count (120.0-450.0) 10^3/uL MPV (7.0-11.0) fl Gran % (50.0-68.0) % Lymph % (Auto) (22.0-35.0) % [place] % (Auto) (1.0-6.0) % Eos % (Auto) (1.5-5.0) % Baso % (Auto) (0.0-3.0) % Gran # (1.4-6.5) Lymph # (Auto) (1.2-3.4) [place] # (Auto) (0.1-0.6) Eos # (Auto) (0.0-0.7) Baso # (Auto) (0.0-2.0) K/mm3 pO2 51 (30-55) mm/Hg VBG pH 7.31 L (7.32-7.43) VBG pCO2 23.0 L (40-60) VBG HCO3 11.6 L (21-28) mmol/l VBG Total CO2 12.3 L (22-28) mmol.L VBG O2 Sat (Calc) 85.8 H (40-65) % VBG Base Excess -12.7 L (0.0-2.0) mmol/L VBG Potassium 1.3 L* (3.6-5.2) mmol/L Sodium 122 L 126.0 L (132-148) mmol/L Chloride 87 L 94.0 L (98-107) mmol/L Glucose 63 L (75-110) mg/dl Lactate 9.0 H* (0.7-2.1) mmol/L FiO2 21.0 % Potassium 2.3 L* (3.6-5.0) mmol/L Carbon Dioxide 16 L (21-33) mmol/L Anion Gap 21 H (10-20) BUN 5 L (7-21) mg/dL Creatinine 1.5 (0.8-1.5) mg/dl Est GFR ( Amer) > 60 Est GFR (Non-Af Amer) 50 Random Glucose 100 (70-110) mg/dL Serum Osmolality 249 L (272-300) mosm/kg Calcium 8.4 (8.4-10.5) mg/dL Phosphorus (2.5-4.5) mg/dL Magnesium (1.7-2.2) mg/dL Total Bilirubin (0.2-1.3) mg/dL AST (17-59) U/L ALT (7-56) U/L Alkaline Phosphatase (38-126) U/L Total Protein (5.8-8.3) g/dL Albumin (3.0-4.8) g/dL Globulin gm/dL Albumin/Globulin Ratio (1.1-1.8) Venous Blood Potassium 1.3 L* (3.6-5.2) mmol/L Urine Color (YELLOW) Urine Appearance (CLEAR) Urine pH (4.7-8.0) Ur Specific [place] (1.005-1.035) Urine Protein (<30 mg/dL) mg/dL Urine Glucose (UA) (NEGATIVE) mg/dL Urine Ketones (NEGATIVE) mg/dL Urine Blood (NEGATIVE) Urine Nitrate (NEGATIVE) Urine Bilirubin (NEGATIVE) Urine Urobilinogen (<1 E.U./dL) E.U./dL Ur Leukocyte Esterase (NEGATIVE) Ty/uL Urine RBC (0-2) /hpf Urine WBC (0-6) /hpf Ur Epithelial Cells (0-5) /hpf Amorphous Sediment Urine Bacteria (NEG) Fine Granular Casts (0-2) /hpf Coarse Granular Casts (0-2) /hpf Urine Other Urine Osmolality (300-1000) mosm/kg Ur Random Creatinine mg/dL Ur Random Sodium meq/L Ur Random Potassium meq/L Ur Random Urea Nitrogn mg/dL Urine Opiates Screen (NEGATIVE) Urine Methadone Screen (NEGATIVE) Ur Barbiturates Screen (NEGATIVE) Ur Phencyclidine Scrn (NEGATIVE) Ur Amphetamines Screen (NEGATIVE) U Benzodiazepines Scrn (NEGATIVE) U Oth Cocaine Metabols (NEGATIVE) U Cannabinoids Screen (NEGATIVE) 07/23/18 07/23/18 Range/Units 13:00 13:00 WBC (4.5-11.0) 10^3/ul RBC (3.5-6.1) 10^6/uL Hgb (14.0-18.0) g/dL Hct (42.0-52.0) % MCV (80.0-105.0) fl MCH (25.0-35.0) pg MCHC (31.0-37.0) g/dl RDW (11.5-14.5) % Plt Count (120.0-450.0) 10^3/uL MPV (7.0-11.0) fl Gran % (50.0-68.0) % Lymph % (Auto) (22.0-35.0) % [place] % (Auto) (1.0-6.0) % Eos % (Auto) (1.5-5.0) % Baso % (Auto) (0.0-3.0) % Gran # (1.4-6.5) Lymph # (Auto) (1.2-3.4) [place] # (Auto) (0.1-0.6) Eos # (Auto) (0.0-0.7) Baso # (Auto) (0.0-2.0) K/mm3 pO2 (30-55) mm/Hg VBG pH (7.32-7.43) VBG pCO2 (40-60) VBG HCO3 (21-28) mmol/l VBG Total CO2 (22-28) mmol.L VBG O2 Sat (Calc) (40-65) % VBG Base Excess (0.0-2.0) mmol/L VBG Potassium (3.6-5.2) mmol/L Sodium (132-148) mmol/L Chloride (98-107) mmol/L Glucose (75-110) mg/dl Lactate (0.7-2.1) mmol/L FiO2 % Potassium (3.6-5.0) mmol/L Carbon Dioxide (21-33) mmol/L Anion Gap (10-20) BUN (7-21) mg/dL Creatinine (0.8-1.5) mg/dl Est GFR ( Amer) Est GFR (Non-Af Amer) Random Glucose (70-110) mg/dL Serum Osmolality (272-300) mosm/kg Calcium (8.4-10.5) mg/dL Phosphorus (2.5-4.5) mg/dL Magnesium (1.7-2.2) mg/dL Total Bilirubin (0.2-1.3) mg/dL AST (17-59) U/L ALT (7-56) U/L Alkaline Phosphatase (38-126) U/L Total Protein (5.8-8.3) g/dL Albumin (3.0-4.8) g/dL Globulin gm/dL Albumin/Globulin Ratio (1.1-1.8) Venous Blood Potassium (3.6-5.2) mmol/L Urine Color Yellow (YELLOW) Urine Appearance Sl cloudy (CLEAR) Urine pH 6.5 (4.7-8.0) Ur Specific [place] 1.010 (1.005-1.035) Urine Protein 100 H (<30 mg/dL) mg/dL Urine Glucose (UA) Negative (NEGATIVE) mg/dL Urine Ketones Negative (NEGATIVE) mg/dL Urine Blood Large H (NEGATIVE) Urine Nitrate Negative (NEGATIVE) Urine Bilirubin Moderate H (NEGATIVE) Urine Urobilinogen 0.2 (<1 E.U./dL) E.U./dL Ur Leukocyte Esterase Moderate H (NEGATIVE) Ty/uL Urine RBC 25 - 30 (0-2) /hpf Urine WBC 20 - 25 (0-6) /hpf Ur Epithelial Cells 0 - 2 (0-5) /hpf Amorphous Sediment Few Urine Bacteria Many (NEG) Fine Granular Casts 0 - 2 (0-2) /hpf Coarse Granular Casts Trace H (0-2) /hpf Urine Other Uyeast Urine Osmolality (300-1000) mosm/kg Ur Random Creatinine mg/dL Ur Random Sodium meq/L Ur Random Potassium meq/L Ur Random Urea Nitrogn mg/dL Urine Opiates Screen Negative (NEGATIVE) Urine Methadone Screen Negative (NEGATIVE) Ur Barbiturates Screen Negative (NEGATIVE) Ur Phencyclidine Scrn Negative (NEGATIVE) Ur Amphetamines Screen Negative (NEGATIVE) U Benzodiazepines Scrn Negative (NEGATIVE) U Oth Cocaine Metabols Negative (NEGATIVE) U Cannabinoids Screen Negative (NEGATIVE) Laboratory Results - last 24 hr 07/23/18 07/23/18 07/23/18 13:00 13:00 13:20 WBC RBC Hgb Hct MCV MCH MCHC RDW Plt Count MPV Gran % Lymph % (Auto) [place] % (Auto) Eos % (Auto) Baso % (Auto) Gran # Lymph # (Auto) [place] # (Auto) Eos # (Auto) Baso # (Auto) pO2 51 VBG pH 7.31 L VBG pCO2 23.0 L VBG HCO3 11.6 L VBG Total CO2 12.3 L VBG O2 Sat (Calc) 85.8 H VBG Base Excess -12.7 L VBG Potassium 1.3 L* Sodium 126.0 L Chloride 94.0 L Glucose 63 L Lactate 9.0 H* FiO2 21.0 Potassium Carbon Dioxide Anion Gap BUN Creatinine Est GFR ( Amer) Est GFR (Non-Af Amer) Random Glucose Serum Osmolality Calcium Phosphorus Magnesium Total Bilirubin AST ALT Alkaline Phosphatase Total Protein Albumin Globulin Albumin/Globulin Ratio Venous Blood Potassium 1.3 L* Urine Color Yellow Urine Appearance Sl cloudy Urine pH 6.5 Ur Specific [place] 1.010 Urine Protein 100 H Urine Glucose (UA) Negative Urine Ketones Negative Urine Blood Large H Urine Nitrate Negative Urine Bilirubin Moderate H Urine Urobilinogen 0.2 Ur Leukocyte Esterase Moderate H Urine RBC 25 - 30 Urine WBC 20 - 25 Ur Epithelial Cells 0 - 2 Amorphous Sediment Few Urine Bacteria Many Fine Granular Casts 0 - 2 Coarse Granular Casts Trace H Urine Other [place] Urine Osmolality Ur Random Creatinine Ur Random Sodium Ur Random Potassium Ur Random Urea Nitrogn Urine Opiates Screen Negative Urine Methadone Screen Negative Ur Barbiturates Screen Negative Ur Phencyclidine Scrn Negative Ur Amphetamines Screen Negative U Benzodiazepines Scrn Negative U Oth Cocaine Metabols Negative U Cannabinoids Screen Negative 07/23/18 07/23/18 07/23/18 18:00 18:00 18:00 WBC 25.1 H* D RBC 2.32 L Hgb 8.9 L Hct 23.8 L MCV 102.6 MCH 38.4 H MCHC 37.4 H RDW 15.7 H Plt Count 70 L MPV 11.7 H Gran % 91.7 H Lymph % (Auto) 2.6 L [place] % (Auto) 5.7 Eos % (Auto) 0.0 L Baso % (Auto) 0.0 Gran # 22.96 H Lymph # (Auto) 0.7 L [place] # (Auto) 1.4 H Eos # (Auto) 0.0 Baso # (Auto) 0.01 pO2 VBG pH VBG pCO2 VBG HCO3 VBG Total CO2 VBG O2 Sat (Calc) VBG Base Excess VBG Potassium Sodium 122 L Chloride 87 L Glucose Lactate FiO2 Potassium 2.3 L* Carbon Dioxide 16 L Anion Gap 21 H BUN 5 L Creatinine 1.5 Est GFR ( Amer) > 60 Est GFR (Non-Af Amer) 50 Random Glucose 100 Serum Osmolality 249 L Calcium 8.4 Phosphorus Magnesium Total Bilirubin AST ALT Alkaline Phosphatase Total Protein Albumin Globulin Albumin/Globulin Ratio Venous Blood Potassium Urine Color Urine Appearance Urine pH Ur Specific [place] Urine Protein Urine Glucose (UA) Urine Ketones Urine Blood Urine Nitrate Urine Bilirubin Urine Urobilinogen Ur Leukocyte Esterase Urine RBC Urine WBC Ur Epithelial Cells Amorphous Sediment Urine Bacteria Fine Granular Casts Coarse Granular Casts Urine Other Urine Osmolality Ur Random Creatinine Ur Random Sodium Ur Random Potassium Ur Random Urea Nitrogn Urine Opiates Screen Urine Methadone Screen Ur Barbiturates Screen Ur Phencyclidine Scrn Ur Amphetamines Screen U Benzodiazepines Scrn U Oth Cocaine Metabols U Cannabinoids Screen 07/23/18 07/23/18 07/24/18 18:40 22:13 06:30 WBC RBC Hgb Hct MCV MCH MCHC RDW Plt Count MPV Gran % Lymph % (Auto) [place] % (Auto) Eos % (Auto) Baso % (Auto) Gran # Lymph # (Auto) [place] # (Auto) Eos # (Auto) Baso # (Auto) pO2 VBG pH VBG pCO2 VBG HCO3 VBG Total CO2 VBG O2 Sat (Calc) VBG Base Excess VBG Potassium Sodium 126 L 130 L Chloride 91 L 89 L Glucose Lactate FiO2 Potassium 2.6 L* 2.3 L* Carbon Dioxide 21 28 Anion Gap 17 15 BUN 7 10 Creatinine 1.3 1.0 Est GFR ( Amer) > 60 > 60 Est GFR (Non-Af Amer) 59 > 60 Random Glucose 132 H 135 H Serum Osmolality Calcium 8.6 8.4 Phosphorus 2.6 Magnesium 2.2 Total Bilirubin 23.4 H* AST 466 H ALT 82 H Alkaline Phosphatase 180 H D Total Protein 8.0 Albumin 3.1 Globulin 4.9 Albumin/Globulin Ratio 0.6 L Venous Blood Potassium Urine Color Urine Appearance Urine pH Ur Specific [place] Urine Protein Urine Glucose (UA) Urine Ketones Urine Blood Urine Nitrate Urine Bilirubin Urine Urobilinogen Ur Leukocyte Esterase Urine RBC Urine WBC Ur Epithelial Cells Amorphous Sediment Urine Bacteria Fine Granular Casts Coarse Granular Casts Urine Other Urine Osmolality 194 L Ur Random Creatinine 24 Ur Random Sodium 61 Ur Random Potassium 27.6 Ur Random Urea Nitrogn < 67 Urine Opiates Screen Urine Methadone Screen Ur Barbiturates Screen Ur Phencyclidine Scrn Ur Amphetamines Screen U Benzodiazepines Scrn U Oth Cocaine Metabols U Cannabinoids Screen 07/24/18 07/24/18 06:30 07:20 WBC 23.2 H RBC 2.41 L Hgb 9.2 L Hct 24.7 L MCV 102.5 MCH 38.2 H MCHC 37.2 H RDW 15.9 H Plt Count 73 L MPV 11.6 H Gran % 93.0 H Lymph % (Auto) 2.8 L [place] % (Auto) 4.2 Eos % (Auto) 0.0 L Baso % (Auto) 0.0 Gran # 21.52 H Lymph # (Auto) 0.7 L [place] # (Auto) 1.0 H Eos # (Auto) 0.0 Baso # (Auto) 0.01 pO2 74 H VBG pH 7.54 H VBG pCO2 37.0 L VBG HCO3 31.6 H VBG Total CO2 32.7 H VBG O2 Sat (Calc) 100.6 H VBG Base Excess 8.6 H VBG Potassium 1.9 L* Sodium 128.0 L Chloride 91.0 L Glucose 143 H Lactate 1.8 FiO2 21.0 Potassium Carbon Dioxide Anion Gap BUN Creatinine Est GFR ( Amer) Est GFR (Non-Af Amer) Random Glucose Serum Osmolality Calcium Phosphorus Magnesium Total Bilirubin AST ALT Alkaline Phosphatase Total Protein Albumin Globulin Albumin/Globulin Ratio Venous Blood Potassium 1.9 L* Urine Color Urine Appearance Urine pH Ur Specific [place] Urine Protein Urine Glucose (UA) Urine Ketones Urine Blood Urine Nitrate Urine Bilirubin Urine Urobilinogen Ur Leukocyte Esterase Urine RBC Urine WBC Ur Epithelial Cells Amorphous Sediment Urine Bacteria Fine Granular Casts Coarse Granular Casts Urine Other Urine Osmolality Ur Random Creatinine Ur Random Sodium Ur Random Potassium Ur Random Urea Nitrogn Urine Opiates Screen Urine Methadone Screen Ur Barbiturates Screen Ur Phencyclidine Scrn Ur Amphetamines Screen U Benzodiazepines Scrn U Oth Cocaine Metabols U Cannabinoids Screen Fingerstick Blood Sugar Results: 95 Review of Systems - Review of Systems All systems: reviewed and no additional remarkable complaints except Review of Systems: as per HPI Assessment/Plan - Assessment and Plan (Free Text) Assessment: Patient is 48yo male with extensive EtOH abuse, a/w EtOH intoxication, severe sepsis, lactic acidosis, multiple electrolyte derangements. Plan: Neuro: - AO x 2, unaware of date and president - tremors present, difficulty with coordination - Head Ct negative - CIWA protocol in place, did not require ativan overnight - goal Na 128, neuro checks for pontine changes 4h Cardio: - episode of hypotension overnight,improved with 500 cc bolus - now normotensive nontachycardic, stable - CXR negative Pulm: - CXR negative - sat >85% on RA GI: - chronic liver failure - electrolytes repleted - bicarb drip d/c as pH elevated, changed to D5 in H20 @125 - Na rise 120 to 130 in past 24, avoid further increase in NA - goal Na 128, no not give any sodium products - Bili increased to 24, LFTs worsening, likely due to chronic liver disease and cirrhosis - repeat BMP in pm Endo: - BS stable, monitor Renal: - BUN/CR 10/1.0 - monitor Heme: - hgb/hct 9.2/24.7, PLT 73 d/t chronic liver disease - monitor ID: - WBC 23.2, decreasing - afebrile overnight - c/w merrem and vanc - blood cx: G- rods, f/u Ucx - ID following - Date & Time Date: 07/24/18 <Jamie Le - Last Filed: 07/24/18 12:22> CCU Objective - Vital Signs / Intake & Output Vital Signs (Last 4 hours): Vital Signs Pulse Resp BP 07/24/18 10:00 82 16 79/41 L 07/24/18 09:00 85 13 101/58 L 07/24/18 08:42 88 27 H 105/65 Intake and Output (Last 8hrs): Intake & Output 07/23/18 07/24/18 07/24/18 22:59 06:59 14:59 Intake Total 2600 Output Total 300 Balance 2300 Weight 132 lb 4.8 oz Intake: IV 2600 Right Wrist 2600 Oral 0 Output: Stool 0 Emesis 300 Other: Voiding Method Urinal - Medications Active Medications: Active Medications Generic Name Dose Route Start Last Admin Trade Name Freq PRN Reason Stop Dose Admin Albuterol/Ipratropium 3 ml 07/23/18 16:06 Duoneb 3 Mg/0.5 Mg (3 Ml) Ud IH [id number] PRN Wheezing Famotidine 20 mg 07/23/18 15:45 07/24/18 10:58 Pepcid IVP 20 mg DAILY VÍCTOR Administration Folic Acid 1 mg 07/23/18 16:15 07/24/18 10:59 Folic Acid PO 1 mg DAILY VÍCTOR Administration Vancomycin HCl 1 gm in 250 mls @ 167 mls/hr 07/24/18 10:00 07/24/18 10:59 Vancomycin 1gm IVPB 167 mls/hr DAILY VÍCTOR Administration Protocol Meropenem 50 mls @ 100 mls/hr 07/23/18 22:00 07/24/18 11:49 Merrem Iv 1 Gm Premix IVPB 07/30/18 22:01 100 mls/hr Q12 VÍCTOR Administration Protocol Thiamine HCl 200 mg/ Sodium 102 mls @ 202 mls/hr 07/23/18 22:15 07/24/18 05: 15 Chloride IV 202 mls/hr Q8 VÍCTOR Administration Dextrose 1,000 mls @ 125 mls/hr 07/24/18 08:15 07/24/18 11:09 Dextrose 5% In Water 1000 Ml IV 125 mls/hr .Q8H VÍCTOR Administration Potassium Chloride 10 meq in 100 mls @ 50 mls/hr 07/24/18 10:00 07/24/18 11: 00 Potassium Chloride 10 Meq/100 Ml IVPB 07/24/18 19:59 50 mls/hr Q2H VÍCTOR Administration Lactulose 20 gm 07/23/18 18:00 07/24/18 11:00 Enulose PO 20 gm TID VÍCTOR Administration Lorazepam 1 mg 07/23/18 15:16 07/23/18 20:52 Ativan IVP 1 mg Q2H PRN Administration Symptoms of alcohol withdrawl Protocol Multivitamins 1 tab 07/24/18 08:00 07/24/18 10:59 Thera Tab PO 1 tab 0800 VÍCTOR Administration Nicotine 1 patch 07/23/18 16:15 07/24/18 11:46 Nicoderm Cq TD 1 patch DAILY VÍCTOR Administration Potassium Phos/Sodium Phos 1 pkt 07/23/18 22:15 07/24/18 11:07 Neutra-Phos PO 07/26/18 22:16 1 pkt BID VÍCTOR Administration Prednisolone 40 mg 07/23/18 15:30 07/23/18 18:09 Prednisolone Oral Soln PO 5 ml DAILY VÍCTOR Administration - Patient Studies Lab Studies: Lab Studies 07/24/18 07/24/18 07/24/18 Range/Units 11:27 09:30 09:30 WBC (4.5-11.0) 10^3/ul RBC (3.5-6.1) 10^6/uL Hgb (14.0-18.0) g/dL Hct (42.0-52.0) % MCV (80.0-105.0) fl MCH (25.0-35.0) pg MCHC (31.0-37.0) g/dl RDW (11.5-14.5) % Plt Count (120.0-450.0) 10^3/uL MPV (7.0-11.0) fl Gran % (50.0-68.0) % Lymph % (Auto) (22.0-35.0) % [place] % (Auto) (1.0-6.0) % Eos % (Auto) (1.5-5.0) % Baso % (Auto) (0.0-3.0) % Gran # (1.4-6.5) Lymph # (Auto) (1.2-3.4) [place] # (Auto) (0.1-0.6) Eos # (Auto) (0.0-0.7) Baso # (Auto) (0.0-2.0) K/mm3 PT (9.4-12.5) SECONDS INR APTT (25.1-36.5) Seconds pO2 (30-55) mm/Hg VBG pH (7.32-7.43) VBG pCO2 (40-60) VBG HCO3 (21-28) mmol/l VBG Total CO2 (22-28) mmol.L VBG O2 Sat (Calc) (40-65) % VBG Base Excess (0.0-2.0) mmol/L VBG Potassium (3.6-5.2) mmol/L Sodium 130 L (132-148) mmol/L Chloride 88 L (98-107) mmol/L Glucose (75-110) mg/dl Lactate (0.7-2.1) mmol/L FiO2 % Potassium 2.1 L* (3.6-5.0) mmol/L Carbon Dioxide 29 (21-33) mmol/L Anion Gap 15 (10-20) BUN 11 (7-21) mg/dL Creatinine 0.9 (0.8-1.5) mg/dl Est GFR ( Amer) > 60 Est GFR (Non-Af Amer) > 60 POC Glucose (mg/dL) 112 H (65-110) mg/dL Random Glucose 124 H (70-110) mg/dL Serum Osmolality (272-300) mosm/kg Calcium 8.2 L (8.4-10.5) mg/dL Phosphorus (2.5-4.5) mg/dL Magnesium (1.7-2.2) mg/dL Total Bilirubin (0.2-1.3) mg/dL AST (17-59) U/L ALT (7-56) U/L Alkaline Phosphatase (38-126) U/L Ammonia 56 H (9-33) umol/L Total Protein (5.8-8.3) g/dL Albumin (3.0-4.8) g/dL Globulin gm/dL Albumin/Globulin Ratio (1.1-1.8) Venous Blood Potassium (3.6-5.2) mmol/L Urine Color (YELLOW) Urine Appearance (CLEAR) Urine pH (4.7-8.0) Ur Specific [place] (1.005-1.035) Urine Protein (<30 mg/dL) mg/dL Urine Glucose (UA) (NEGATIVE) mg/dL Urine Ketones (NEGATIVE) mg/dL Urine Blood (NEGATIVE) Urine Nitrate (NEGATIVE) Urine Bilirubin (NEGATIVE) Urine Urobilinogen (<1 E.U./dL) E.U./dL Ur Leukocyte Esterase (NEGATIVE) Ty/uL Urine RBC (0-2) /hpf Urine WBC (0-6) /hpf Ur Epithelial Cells (0-5) /hpf Amorphous Sediment Urine Bacteria (NEG) Fine Granular Casts (0-2) /hpf Coarse Granular Casts (0-2) /hpf Urine Other Urine Osmolality (300-1000) mosm/kg Ur Random Creatinine mg/dL Ur Random Sodium meq/L Ur Random Potassium meq/L Ur Random Urea Nitrogn mg/dL Urine Opiates Screen (NEGATIVE) Urine Methadone Screen (NEGATIVE) Ur Barbiturates Screen (NEGATIVE) Ur Phencyclidine Scrn (NEGATIVE) Ur Amphetamines Screen (NEGATIVE) U Benzodiazepines Scrn (NEGATIVE) U Oth Cocaine Metabols (NEGATIVE) U Cannabinoids Screen (NEGATIVE) 07/24/18 07/24/18 07/24/18 Range/Units 08:50 07:20 06:30 WBC 23.2 H (4.5-11.0) 10^3/ul RBC 2.41 L (3.5-6.1) 10^6/uL Hgb 9.2 L (14.0-18.0) g/dL Hct 24.7 L (42.0-52.0) % MCV 102.5 (80.0-105.0) fl MCH 38.2 H (25.0-35.0) pg MCHC 37.2 H (31.0-37.0) g/dl RDW 15.9 H (11.5-14.5) % Plt Count 73 L (120.0-450.0) 10^3/uL MPV 11.6 H (7.0-11.0) fl Gran % 93.0 H (50.0-68.0) % Lymph % (Auto) 2.8 L (22.0-35.0) % [place] % (Auto) 4.2 (1.0-6.0) % Eos % (Auto) 0.0 L (1.5-5.0) % Baso % (Auto) 0.0 (0.0-3.0) % Gran # 21.52 H (1.4-6.5) Lymph # (Auto) 0.7 L (1.2-3.4) [place] # (Auto) 1.0 H (0.1-0.6) Eos # (Auto) 0.0 (0.0-0.7) Baso # (Auto) 0.01 (0.0-2.0) K/mm3 PT 23.5 H (9.4-12.5) SECONDS INR 2.01 APTT 39.9 H (25.1-36.5) Seconds pO2 74 H (30-55) mm/Hg VBG pH 7.54 H (7.32-7.43) VBG pCO2 37.0 L (40-60) VBG HCO3 31.6 H (21-28) mmol/l VBG Total CO2 32.7 H (22-28) mmol.L VBG O2 Sat (Calc) 100.6 H (40-65) % VBG Base Excess 8.6 H (0.0-2.0) mmol/L VBG Potassium 1.9 L* (3.6-5.2) mmol/L Sodium 128.0 L (132-148) mmol/L Chloride 91.0 L (98-107) mmol/L Glucose 143 H (75-110) mg/dl Lactate 1.8 (0.7-2.1) mmol/L FiO2 21.0 % Potassium (3.6-5.0) mmol/L Carbon Dioxide (21-33) mmol/L Anion Gap (10-20) BUN (7-21) mg/dL Creatinine (0.8-1.5) mg/dl Est GFR ( Amer) Est GFR (Non-Af Amer) POC Glucose (mg/dL) (65-110) mg/dL Random Glucose (70-110) mg/dL Serum Osmolality (272-300) mosm/kg Calcium (8.4-10.5) mg/dL Phosphorus (2.5-4.5) mg/dL Magnesium (1.7-2.2) mg/dL Total Bilirubin (0.2-1.3) mg/dL AST (17-59) U/L ALT (7-56) U/L Alkaline Phosphatase (38-126) U/L Ammonia (9-33) umol/L Total Protein (5.8-8.3) g/dL Albumin (3.0-4.8) g/dL Globulin gm/dL Albumin/Globulin Ratio (1.1-1.8) Venous Blood Potassium 1.9 L* (3.6-5.2) mmol/L Urine Color (YELLOW) Urine Appearance (CLEAR) Urine pH (4.7-8.0) Ur Specific [place] (1.005-1.035) Urine Protein (<30 mg/dL) mg/dL Urine Glucose (UA) (NEGATIVE) mg/dL Urine Ketones (NEGATIVE) mg/dL Urine Blood (NEGATIVE) Urine Nitrate (NEGATIVE) Urine Bilirubin (NEGATIVE) Urine Urobilinogen (<1 E.U./dL) E.U./dL Ur Leukocyte Esterase (NEGATIVE) Ty/uL Urine RBC (0-2) /hpf Urine WBC (0-6) /hpf Ur Epithelial Cells (0-5) /hpf Amorphous Sediment Urine Bacteria (NEG) Fine Granular Casts (0-2) /hpf Coarse Granular Casts (0-2) /hpf Urine Other Urine Osmolality (300-1000) mosm/kg Ur Random Creatinine mg/dL Ur Random Sodium meq/L Ur Random Potassium meq/L Ur Random Urea Nitrogn mg/dL Urine Opiates Screen (NEGATIVE) Urine Methadone Screen (NEGATIVE) Ur Barbiturates Screen (NEGATIVE) Ur Phencyclidine Scrn (NEGATIVE) Ur Amphetamines Screen (NEGATIVE) U Benzodiazepines Scrn (NEGATIVE) U Oth Cocaine Metabols (NEGATIVE) U Cannabinoids Screen (NEGATIVE) 07/24/18 07/23/18 07/23/18 Range/Units 06:30 22:13 18:40 WBC (4.5-11.0) 10^3/ul RBC (3.5-6.1) 10^6/uL Hgb (14.0-18.0) g/dL Hct (42.0-52.0) % MCV (80.0-105.0) fl MCH (25.0-35.0) pg MCHC (31.0-37.0) g/dl RDW (11.5-14.5) % Plt Count (120.0-450.0) 10^3/uL MPV (7.0-11.0) fl Gran % (50.0-68.0) % Lymph % (Auto) (22.0-35.0) % [place] % (Auto) (1.0-6.0) % Eos % (Auto) (1.5-5.0) % Baso % (Auto) (0.0-3.0) % Gran # (1.4-6.5) Lymph # (Auto) (1.2-3.4) [place] # (Auto) (0.1-0.6) Eos # (Auto) (0.0-0.7) Baso # (Auto) (0.0-2.0) K/mm3 PT (9.4-12.5) SECONDS INR APTT (25.1-36.5) Seconds pO2 (30-55) mm/Hg VBG pH (7.32-7.43) VBG pCO2 (40-60) VBG HCO3 (21-28) mmol/l VBG Total CO2 (22-28) mmol.L VBG O2 Sat (Calc) (40-65) % VBG Base Excess (0.0-2.0) mmol/L VBG Potassium (3.6-5.2) mmol/L Sodium 130 L 126 L (132-148) mmol/L Chloride 89 L 91 L (98-107) mmol/L Glucose (75-110) mg/dl Lactate (0.7-2.1) mmol/L FiO2 % Potassium 2.3 L* 2.6 L* (3.6-5.0) mmol/L Carbon Dioxide 28 21 (21-33) mmol/L Anion Gap 15 17 (10-20) BUN 10 7 (7-21) mg/dL Creatinine 1.0 1.3 (0.8-1.5) mg/dl Est GFR ( Amer) > 60 > 60 Est GFR (Non-Af Amer) > 60 59 POC Glucose (mg/dL) (65-110) mg/dL Random Glucose 135 H 132 H (70-110) mg/dL Serum Osmolality (272-300) mosm/kg Calcium 8.4 8.6 (8.4-10.5) mg/dL Phosphorus 2.6 (2.5-4.5) mg/dL Magnesium 2.2 (1.7-2.2) mg/dL Total Bilirubin 23.4 H* (0.2-1.3) mg/dL AST 466 H (17-59) U/L ALT 82 H (7-56) U/L Alkaline Phosphatase 180 H D (38-126) U/L Ammonia (9-33) umol/L Total Protein 8.0 (5.8-8.3) g/dL Albumin 3.1 (3.0-4.8) g/dL Globulin 4.9 gm/dL Albumin/Globulin Ratio 0.6 L (1.1-1.8) Venous Blood Potassium (3.6-5.2) mmol/L Urine Color (YELLOW) Urine Appearance (CLEAR) Urine pH (4.7-8.0) Ur Specific [place] (1.005-1.035) Urine Protein (<30 mg/dL) mg/dL Urine Glucose (UA) (NEGATIVE) mg/dL Urine Ketones (NEGATIVE) mg/dL Urine Blood (NEGATIVE) Urine Nitrate (NEGATIVE) Urine Bilirubin (NEGATIVE) Urine Urobilinogen (<1 E.U./dL) E.U./dL Ur Leukocyte Esterase (NEGATIVE) Ty/uL Urine RBC (0-2) /hpf Urine WBC (0-6) /hpf Ur Epithelial Cells (0-5) /hpf Amorphous Sediment Urine Bacteria (NEG) Fine Granular Casts (0-2) /hpf Coarse Granular Casts (0-2) /hpf Urine Other Urine Osmolality 194 L (300-1000) mosm/kg Ur Random Creatinine 24 mg/dL Ur Random Sodium 61 meq/L Ur Random Potassium 27.6 meq/L Ur Random Urea Nitrogn < 67 mg/dL Urine Opiates Screen (NEGATIVE) Urine Methadone Screen (NEGATIVE) Ur Barbiturates Screen (NEGATIVE) Ur Phencyclidine Scrn (NEGATIVE) Ur Amphetamines Screen (NEGATIVE) U Benzodiazepines Scrn (NEGATIVE) U Oth Cocaine Metabols (NEGATIVE) U Cannabinoids Screen (NEGATIVE) 07/23/18 07/23/18 07/23/18 Range/Units 18:00 18:00 18:00 WBC 25.1 H* D (4.5-11.0) 10^3/ul RBC 2.32 L (3.5-6.1) 10^6/uL Hgb 8.9 L (14.0-18.0) g/dL Hct 23.8 L (42.0-52.0) % MCV 102.6 (80.0-105.0) fl MCH 38.4 H (25.0-35.0) pg MCHC 37.4 H (31.0-37.0) g/dl RDW 15.7 H (11.5-14.5) % Plt Count 70 L (120.0-450.0) 10^3/uL MPV 11.7 H (7.0-11.0) fl Gran % 91.7 H (50.0-68.0) % Lymph % (Auto) 2.6 L (22.0-35.0) % [place] % (Auto) 5.7 (1.0-6.0) % Eos % (Auto) 0.0 L (1.5-5.0) % Baso % (Auto) 0.0 (0.0-3.0) % Gran # 22.96 H (1.4-6.5) Lymph # (Auto) 0.7 L (1.2-3.4) [place] # (Auto) 1.4 H (0.1-0.6) Eos # (Auto) 0.0 (0.0-0.7) Baso # (Auto) 0.01 (0.0-2.0) K/mm3 PT (9.4-12.5) SECONDS INR APTT (25.1-36.5) Seconds pO2 (30-55) mm/Hg VBG pH (7.32-7.43) VBG pCO2 (40-60) VBG HCO3 (21-28) mmol/l VBG Total CO2 (22-28) mmol.L VBG O2 Sat (Calc) (40-65) % VBG Base Excess (0.0-2.0) mmol/L VBG Potassium (3.6-5.2) mmol/L Sodium 122 L (132-148) mmol/L Chloride 87 L (98-107) mmol/L Glucose (75-110) mg/dl Lactate (0.7-2.1) mmol/L FiO2 % Potassium 2.3 L* (3.6-5.0) mmol/L Carbon Dioxide 16 L (21-33) mmol/L Anion Gap 21 H (10-20) BUN 5 L (7-21) mg/dL Creatinine 1.5 (0.8-1.5) mg/dl Est GFR ( Amer) > 60 Est GFR (Non-Af Amer) 50 POC Glucose (mg/dL) (65-110) mg/dL Random Glucose 100 (70-110) mg/dL Serum Osmolality 249 L (272-300) mosm/kg Calcium 8.4 (8.4-10.5) mg/dL Phosphorus (2.5-4.5) mg/dL Magnesium (1.7-2.2) mg/dL Total Bilirubin (0.2-1.3) mg/dL AST (17-59) U/L ALT (7-56) U/L Alkaline Phosphatase (38-126) U/L Ammonia (9-33) umol/L Total Protein (5.8-8.3) g/dL Albumin (3.0-4.8) g/dL Globulin gm/dL Albumin/Globulin Ratio (1.1-1.8) Venous Blood Potassium (3.6-5.2) mmol/L Urine Color (YELLOW) Urine Appearance (CLEAR) Urine pH (4.7-8.0) Ur Specific [place] (1.005-1.035) Urine Protein (<30 mg/dL) mg/dL Urine Glucose (UA) (NEGATIVE) mg/dL Urine Ketones (NEGATIVE) mg/dL Urine Blood (NEGATIVE) Urine Nitrate (NEGATIVE) Urine Bilirubin (NEGATIVE) Urine Urobilinogen (<1 E.U./dL) E.U./dL Ur Leukocyte Esterase (NEGATIVE) Ty/uL Urine RBC (0-2) /hpf Urine WBC (0-6) /hpf Ur Epithelial Cells (0-5) /hpf Amorphous Sediment Urine Bacteria (NEG) Fine Granular Casts (0-2) /hpf Coarse Granular Casts (0-2) /hpf Urine Other Urine Osmolality (300-1000) mosm/kg Ur Random Creatinine mg/dL Ur Random Sodium meq/L Ur Random Potassium meq/L Ur Random Urea Nitrogn mg/dL Urine Opiates Screen (NEGATIVE) Urine Methadone Screen (NEGATIVE) Ur Barbiturates Screen (NEGATIVE) Ur Phencyclidine Scrn (NEGATIVE) Ur Amphetamines Screen (NEGATIVE) U Benzodiazepines Scrn (NEGATIVE) U Oth Cocaine Metabols (NEGATIVE) U Cannabinoids Screen (NEGATIVE) 07/23/18 07/23/18 07/23/18 Range/Units 13:20 13:00 13:00 WBC (4.5-11.0) 10^3/ul RBC (3.5-6.1) 10^6/uL Hgb (14.0-18.0) g/dL Hct (42.0-52.0) % MCV (80.0-105.0) fl MCH (25.0-35.0) pg MCHC (31.0-37.0) g/dl RDW (11.5-14.5) % Plt Count (120.0-450.0) 10^3/uL MPV (7.0-11.0) fl Gran % (50.0-68.0) % Lymph % (Auto) (22.0-35.0) % [place] % (Auto) (1.0-6.0) % Eos % (Auto) (1.5-5.0) % Baso % (Auto) (0.0-3.0) % Gran # (1.4-6.5) Lymph # (Auto) (1.2-3.4) [place] # (Auto) (0.1-0.6) Eos # (Auto) (0.0-0.7) Baso # (Auto) (0.0-2.0) K/mm3 PT (9.4-12.5) SECONDS INR APTT (25.1-36.5) Seconds pO2 51 (30-55) mm/Hg VBG pH 7.31 L (7.32-7.43) VBG pCO2 23.0 L (40-60) VBG HCO3 11.6 L (21-28) mmol/l VBG Total CO2 12.3 L (22-28) mmol.L VBG O2 Sat (Calc) 85.8 H (40-65) % VBG Base Excess -12.7 L (0.0-2.0) mmol/L VBG Potassium 1.3 L* (3.6-5.2) mmol/L Sodium 126.0 L (132-148) mmol/L Chloride 94.0 L (98-107) mmol/L Glucose 63 L (75-110) mg/dl Lactate 9.0 H* (0.7-2.1) mmol/L FiO2 21.0 % Potassium (3.6-5.0) mmol/L Carbon Dioxide (21-33) mmol/L Anion Gap (10-20) BUN (7-21) mg/dL Creatinine (0.8-1.5) mg/dl Est GFR ( Amer) Est GFR (Non-Af Amer) POC Glucose (mg/dL) (65-110) mg/dL Random Glucose (70-110) mg/dL Serum Osmolality (272-300) mosm/kg Calcium (8.4-10.5) mg/dL Phosphorus (2.5-4.5) mg/dL Magnesium (1.7-2.2) mg/dL Total Bilirubin (0.2-1.3) mg/dL AST (17-59) U/L ALT (7-56) U/L Alkaline Phosphatase (38-126) U/L Ammonia (9-33) umol/L Total Protein (5.8-8.3) g/dL Albumin (3.0-4.8) g/dL Globulin gm/dL Albumin/Globulin Ratio (1.1-1.8) Venous Blood Potassium 1.3 L* (3.6-5.2) mmol/L Urine Color Yellow (YELLOW) Urine Appearance Sl cloudy (CLEAR) Urine pH 6.5 (4.7-8.0) Ur Specific [place] 1.010 (1.005-1.035) Urine Protein 100 H (<30 mg/dL) mg/dL Urine Glucose (UA) Negative (NEGATIVE) mg/dL Urine Ketones Negative (NEGATIVE) mg/dL Urine Blood Large H (NEGATIVE) Urine Nitrate Negative (NEGATIVE) Urine Bilirubin Moderate H (NEGATIVE) Urine Urobilinogen 0.2 (<1 E.U./dL) E.U./dL Ur Leukocyte Esterase Moderate H (NEGATIVE) Ty/uL Urine RBC 25 - 30 (0-2) /hpf Urine WBC 20 - 25 (0-6) /hpf Ur Epithelial Cells 0 - 2 (0-5) /hpf Amorphous Sediment Few Urine Bacteria Many (NEG) Fine Granular Casts 0 - 2 (0-2) /hpf Coarse Granular Casts Trace H (0-2) /hpf Urine Other [place] Urine Osmolality (300-1000) mosm/kg Ur Random Creatinine mg/dL Ur Random Sodium meq/L Ur Random Potassium meq/L Ur Random Urea Nitrogn mg/dL Urine Opiates Screen Negative (NEGATIVE) Urine Methadone Screen Negative (NEGATIVE) Ur Barbiturates Screen Negative (NEGATIVE) Ur Phencyclidine Scrn Negative (NEGATIVE) Ur Amphetamines Screen Negative (NEGATIVE) U Benzodiazepines Scrn Negative (NEGATIVE) U Oth Cocaine Metabols Negative (NEGATIVE) U Cannabinoids Screen Negative (NEGATIVE) Laboratory Results - last 24 hr 07/23/18 07/23/18 07/23/18 13:00 13:00 13:20 WBC RBC Hgb Hct MCV MCH MCHC RDW Plt Count MPV Gran % Lymph % (Auto) [place] % (Auto) Eos % (Auto) Baso % (Auto) Gran # Lymph # (Auto) [place] # (Auto) Eos # (Auto) Baso # (Auto) PT INR APTT pO2 51 VBG pH 7.31 L VBG pCO2 23.0 L VBG HCO3 11.6 L VBG Total CO2 12.3 L VBG O2 Sat (Calc) 85.8 H VBG Base Excess -12.7 L VBG Potassium 1.3 L* Sodium 126.0 L Chloride 94.0 L Glucose 63 L Lactate 9.0 H* FiO2 21.0 Potassium Carbon Dioxide Anion Gap BUN Creatinine Est GFR ( Amer) Est GFR (Non-Af Amer) POC Glucose (mg/dL) Random Glucose Serum Osmolality Calcium Phosphorus Magnesium Total Bilirubin AST ALT Alkaline Phosphatase Ammonia Total Protein Albumin Globulin Albumin/Globulin Ratio Venous Blood Potassium 1.3 L* Urine Color Yellow Urine Appearance Sl cloudy Urine pH 6.5 Ur Specific [place] 1.010 Urine Protein 100 H Urine Glucose (UA) Negative Urine Ketones Negative Urine Blood Large H Urine Nitrate Negative Urine Bilirubin Moderate H Urine Urobilinogen 0.2 Ur Leukocyte Esterase Moderate H Urine RBC 25 - 30 Urine WBC 20 - 25 Ur Epithelial Cells 0 - 2 Amorphous Sediment Few Urine Bacteria Many Fine Granular Casts 0 - 2 Coarse Granular Casts Trace H Urine Other [place] Urine Osmolality Ur Random Creatinine Ur Random Sodium Ur Random Potassium Ur Random Urea Nitrogn Urine Opiates Screen Negative Urine Methadone Screen Negative Ur Barbiturates Screen Negative Ur Phencyclidine Scrn Negative Ur Amphetamines Screen Negative U Benzodiazepines Scrn Negative U Oth Cocaine Metabols Negative U Cannabinoids Screen Negative 07/23/18 07/23/18 07/23/18 18:00 18:00 18:00 WBC 25.1 H* D RBC 2.32 L Hgb 8.9 L Hct 23.8 L MCV 102.6 MCH 38.4 H MCHC 37.4 H RDW 15.7 H Plt Count 70 L MPV 11.7 H Gran % 91.7 H Lymph % (Auto) 2.6 L [place] % (Auto) 5.7 Eos % (Auto) 0.0 L Baso % (Auto) 0.0 Gran # 22.96 H Lymph # (Auto) 0.7 L [place] # (Auto) 1.4 H Eos # (Auto) 0.0 Baso # (Auto) 0.01 PT INR APTT pO2 VBG pH VBG pCO2 VBG HCO3 VBG Total CO2 VBG O2 Sat (Calc) VBG Base Excess VBG Potassium Sodium 122 L Chloride 87 L Glucose Lactate FiO2 Potassium 2.3 L* Carbon Dioxide 16 L Anion Gap 21 H BUN 5 L Creatinine 1.5 Est GFR ( Amer) > 60 Est GFR (Non-Af Amer) 50 POC Glucose (mg/dL) Random Glucose 100 Serum Osmolality 249 L Calcium 8.4 Phosphorus Magnesium Total Bilirubin AST ALT Alkaline Phosphatase Ammonia Total Protein Albumin Globulin Albumin/Globulin Ratio Venous Blood Potassium Urine Color Urine Appearance Urine pH Ur Specific [place] Urine Protein Urine Glucose (UA) Urine Ketones Urine Blood Urine Nitrate Urine Bilirubin Urine Urobilinogen Ur Leukocyte Esterase Urine RBC Urine WBC Ur Epithelial Cells Amorphous Sediment Urine Bacteria Fine Granular Casts Coarse Granular Casts Urine Other Urine Osmolality Ur Random Creatinine Ur Random Sodium Ur Random Potassium Ur Random Urea Nitrogn Urine Opiates Screen Urine Methadone Screen Ur Barbiturates Screen Ur Phencyclidine Scrn Ur Amphetamines Screen U Benzodiazepines Scrn U Oth Cocaine Metabols U Cannabinoids Screen 07/23/18 07/23/18 07/24/18 18:40 22:13 06:30 WBC RBC Hgb Hct MCV MCH MCHC RDW Plt Count MPV Gran % Lymph % (Auto) [place] % (Auto) Eos % (Auto) Baso % (Auto) Gran # Lymph # (Auto) [place] # (Auto) Eos # (Auto) Baso # (Auto) PT INR APTT pO2 VBG pH VBG pCO2 VBG HCO3 VBG Total CO2 VBG O2 Sat (Calc) VBG Base Excess VBG Potassium Sodium 126 L 130 L Chloride 91 L 89 L Glucose Lactate FiO2 Potassium 2.6 L* 2.3 L* Carbon Dioxide 21 28 Anion Gap 17 15 BUN 7 10 Creatinine 1.3 1.0 Est GFR ( Amer) > 60 > 60 Est GFR (Non-Af Amer) 59 > 60 POC Glucose (mg/dL) Random Glucose 132 H 135 H Serum Osmolality Calcium 8.6 8.4 Phosphorus 2.6 Magnesium 2.2 Total Bilirubin 23.4 H* AST 466 H ALT 82 H Alkaline Phosphatase 180 H D Ammonia Total Protein 8.0 Albumin 3.1 Globulin 4.9 Albumin/Globulin Ratio 0.6 L Venous Blood Potassium Urine Color Urine Appearance Urine pH Ur Specific [place] Urine Protein Urine Glucose (UA) Urine Ketones Urine Blood Urine Nitrate Urine Bilirubin Urine Urobilinogen Ur Leukocyte Esterase Urine RBC Urine WBC Ur Epithelial Cells Amorphous Sediment Urine Bacteria Fine Granular Casts Coarse Granular Casts Urine Other Urine Osmolality 194 L Ur Random Creatinine 24 Ur Random Sodium 61 Ur Random Potassium 27.6 Ur Random Urea Nitrogn < 67 Urine Opiates Screen Urine Methadone Screen Ur Barbiturates Screen Ur Phencyclidine Scrn Ur Amphetamines Screen U Benzodiazepines Scrn U Oth Cocaine Metabols U Cannabinoids Screen 07/24/18 07/24/18 07/24/18 06:30 07:20 08:50 WBC 23.2 H RBC 2.41 L Hgb 9.2 L Hct 24.7 L MCV 102.5 MCH 38.2 H MCHC 37.2 H RDW 15.9 H Plt Count 73 L MPV 11.6 H Gran % 93.0 H Lymph % (Auto) 2.8 L [place] % (Auto) 4.2 Eos % (Auto) 0.0 L Baso % (Auto) 0.0 Gran # 21.52 H Lymph # (Auto) 0.7 L [place] # (Auto) 1.0 H Eos # (Auto) 0.0 Baso # (Auto) 0.01 PT 23.5 H INR 2.01 APTT 39.9 H pO2 74 H VBG pH 7.54 H VBG pCO2 37.0 L VBG HCO3 31.6 H VBG Total CO2 32.7 H VBG O2 Sat (Calc) 100.6 H VBG Base Excess 8.6 H VBG Potassium 1.9 L* Sodium 128.0 L Chloride 91.0 L Glucose 143 H Lactate 1.8 FiO2 21.0 Potassium Carbon Dioxide Anion Gap BUN Creatinine Est GFR ( Amer) Est GFR (Non-Af Amer) POC Glucose (mg/dL) Random Glucose Serum Osmolality Calcium Phosphorus Magnesium Total Bilirubin AST ALT Alkaline Phosphatase Ammonia Total Protein Albumin Globulin Albumin/Globulin Ratio Venous Blood Potassium 1.9 L* Urine Color Urine Appearance Urine pH Ur Specific [place] Urine Protein Urine Glucose (UA) Urine Ketones Urine Blood Urine Nitrate Urine Bilirubin Urine Urobilinogen Ur Leukocyte Esterase Urine RBC Urine WBC Ur Epithelial Cells Amorphous Sediment Urine Bacteria Fine Granular Casts Coarse Granular Casts Urine Other Urine Osmolality Ur Random Creatinine Ur Random Sodium Ur Random Potassium Ur Random Urea Nitrogn Urine Opiates Screen Urine Methadone Screen Ur Barbiturates Screen Ur Phencyclidine Scrn Ur Amphetamines Screen U Benzodiazepines Scrn U Oth Cocaine Metabols U Cannabinoids Screen 07/24/18 07/24/18 07/24/18 09:30 09:30 11:27 WBC RBC Hgb Hct MCV MCH MCHC RDW Plt Count MPV Gran % Lymph % (Auto) [place] % (Auto) Eos % (Auto) Baso % (Auto) Gran # Lymph # (Auto) [place] # (Auto) Eos # (Auto) Baso # (Auto) PT INR APTT pO2 VBG pH VBG pCO2 VBG HCO3 VBG Total CO2 VBG O2 Sat (Calc) VBG Base Excess VBG Potassium Sodium 130 L Chloride 88 L Glucose Lactate FiO2 Potassium 2.1 L* Carbon Dioxide 29 Anion Gap 15 BUN 11 Creatinine 0.9 Est GFR ( Amer) > 60 Est GFR (Non-Af Amer) > 60 POC Glucose (mg/dL) 112 H Random Glucose 124 H Serum Osmolality Calcium 8.2 L Phosphorus Magnesium Total Bilirubin AST ALT Alkaline Phosphatase Ammonia 56 H Total Protein Albumin Globulin Albumin/Globulin Ratio Venous Blood Potassium Urine Color Urine Appearance Urine pH Ur Specific [place] Urine Protein Urine Glucose (UA) Urine Ketones Urine Blood Urine Nitrate Urine Bilirubin Urine Urobilinogen Ur Leukocyte Esterase Urine RBC Urine WBC Ur Epithelial Cells Amorphous Sediment Urine Bacteria Fine Granular Casts Coarse Granular Casts Urine Other Urine Osmolality Ur Random Creatinine Ur Random Sodium Ur Random Potassium Ur Random Urea Nitrogn Urine Opiates Screen Urine Methadone Screen Ur Barbiturates Screen Ur Phencyclidine Scrn Ur Amphetamines Screen U Benzodiazepines Scrn U Oth Cocaine Metabols U Cannabinoids Screen Assessment/Plan - Assessment and Plan (Free Text) Assessment: Patient seen and examined on rounds with resident, agree with note with following additions/exceptions: Patient is 48yo male with extensive EtOH abuse, a/w EtOH intoxication, severe sepsis, lactic acidosis, multiple electrolyte derangements. Currently afebrile, HD stable, comfortable in NAD. Labs, imaging, chart reviewed. Lactic acidosis resolved, hyponatremia improving Persistently hypokalemic, being repleted Lactic Acidosis, resolved Severe Sepsis Acute Renal Failure Dehydration Hypokalemia Hypophosphotemia, resolved Hypomagnesemia, resolved Hepatic Encephalopathy Chronic Liver disease EtOH withdrawal Recommend: - supp o2 as needed, duonebs PRN, Nicotine Patch - Broad spectrum abx, Merrem, Vanco - panculture, UCx, BCx, Procal - ID follow up - start clear liquid diet - D5W 100cc/hr, goal Na correction 6-8meq/24hr - BMP q6hr - Lactulose 20g TID - CIWA protocol - Prednisolone for EtOH hepatitis - Thiamine, Folic acid, MVT - replete K - Renal follow up - GI ppx - DVT ppx - monitor in MICU critical care time 35minutes
[2018-07-24 09:07] LABS: INR 2.01; PARTIAL THROMBOPLASTIN TIME 39.9 Seconds (25.1-36.5); PROTHROMBIN TIME 23.5 SECONDS (9.4-12.5)
[2018-07-24] MEDS ORDERED: Vancomycin 1gm in NS 250ml 1 GM/250 ML BAG IVPB SCH (10:00)
[2018-07-24 10:20] LABS: BLOOD UREA NITROGEN 11 mg/dL (7-21); CALCIUM 8.2 mg/dL (8.4-10.5); GFR NON-AFRICAN AMERICAN > 60
[2018-07-24] MEDS: Potassium Chloride 20 mEq ER Tab PO SCH ×4 (10:58→22:10)
[2018-07-24] MEDS: Multivitamin Therapeutic Tab PO SCH (10:59)
[2018-07-24] MEDS: Potassium & Sodium Phosphate PO SCH ×2 (11:07→17:42)
[2018-07-24] MEDS: Meropenem IV 1 gm in NS 50 ML IVPB SCH ×3 (11:49→22:10)
[2018-07-24] MEDS: PrednisoLONE 15 mg/5 ml Oral Syrup (240 ml) PO SCH (12:32)
--- NOTE | 2018-07-24 12:53 | US ---
Date of service: 07/23/2018 HISTORY: Elevated LFT COMPARISON: None. TECHNIQUE: Sonographic evaluation of the abdomen. FINDINGS: LIVER: Measures 20.7 cm. Diffusely increased echogenicity of the liver parenchyma. Consistent with fatty infiltration. No mass. No intrahepatic biliary dilatation. Smooth contour. GALLBLADDER: Sludge. No calculi. No mural thickening. Mild nonspecific pericholecystic fluid. COMMON BILE DUCT: Measures 8 mm. This is mildly dilated for this 48-year-old male patient. There is no accompanying intrahepatic biliary ductal dilatation, however. PANCREAS: Rounded mass in the tail of the pancreas measuring 4.3 x 3.1 x 4.0 cm. No pancreatic ductal dilatation. No other mass seen. No peripancreatic fluid. RIGHT KIDNEY: Measures cm. 10.1 LEFT KIDNEY: Measures 11.2cm. Normal echogenicity. No calculus, mass, or hydronephrosis. SPLEEN: Borderline splenomegaly measures 12.8 cm. AORTA: No aneurysmal dilatation. IVC: Unremarkable. OTHER FINDINGS: None. IMPRESSION: 4.3 cm rounded mass in the pancreatic tail consistent with findings on CT examination of 07/23/2018. No pancreatic ductal dilatation. Mild dilatation of the common bile duct without accompanying intrahepatic biliary ductal dilatation. Gallbladder sludge without calculi. No mural thickening. Trace pericholecystic fluid, nonspecific. Mild hepatomegaly with diffuse fatty infiltration. Borderline splenomegaly.
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
--- NOTE | 2018-07-24 14:33 | CP.PCM.PN ---
<Raulito Arboleda - Last Filed: 07/24/18 15:03> Subjective - Date & Time of Evaluation Date of Evaluation: 07/24/18 Time of Evaluation: 07:30 - Subjective Subjective: Raulito Arboleda DO PGY-1, Veterinary Medicine Doctor Medicine Progress Note Pt seen and examined at bedside this am. Still c/o diffuse abd pain, nausea, states he feels like he has to vomit but nothing is coming up, states he is feeling thirsty and wants a cup of water. Reports burning with urination, denies suprapubic or lower back pain. Per overnight report, pt was hypotensive and was resuscitated with a liter of fluids with improvement. Reports chills this am. Denies fever, headache, chest pain, sob, or other symptoms. Objective - Vital Signs/Intake and Output Vital Signs (last 24 hours): Temp Pulse Resp BP Pulse Ox 98.2 F 91 H 16 79/41 L 96 07/24/18 09:00 07/24/18 12:00 07/24/18 10:00 07/24/18 10:00 07/24/18 01:10 Intake and Output: 07/24/18 07/24/18 06:59 18:59 Output Total 320 Balance -320 - Medications Medications: Current Medications Albuterol/Ipratropium (Duoneb 3 Mg/0.5 Mg (3 Ml) Ud) 3 ml IH [id number] PRN PRN Reason: Wheezing Famotidine (Pepcid) 20 mg IVP DAILY [facility] Last Admin: 07/24/18 10:58 Dose: 20 mg Folic Acid (Folic Acid) 1 mg PO DAILY [facility] Last Admin: 07/24/18 10:59 Dose: 1 mg Thiamine HCl 200 mg/ Sodium (Chloride) 102 mls @ 202 mls/hr IV Q8 [facility] Last Admin: 07/24/18 13:35 Dose: 202 mls/hr Dextrose (Dextrose 5% In Water 1000 Ml) 1,000 mls @ 125 mls/hr IV .Q8H [facility] Last Admin: 07/24/18 11:09 Dose: 125 mls/hr Potassium Chloride (Potassium Chloride 10 Meq/100 Ml) 10 meq in 100 mls @ 50 mls/hr IVPB Q2H [facility] Stop: 07/24/18 19:59 Last Admin: 07/24/18 13:34 Dose: 50 mls/hr Meropenem (Merrem Iv 1 Gm Premix) 50 mls @ 100 mls/hr IVPB Q8 [facility] PRN Reason: Protocol Stop: 07/31/18 14:01 Last Admin: 07/24/18 13:40 Dose: 100 mls/hr Lactulose (Enulose) 20 gm PO TID [facility] Last Admin: 07/24/18 13:38 Dose: 20 gm Lorazepam (Ativan) 1 mg IVP Q2H PRN; Protocol PRN Reason: Symptoms of alcohol withdrawl Last Admin: 07/23/18 20:52 Dose: 1 mg Multivitamins (Thera Tab) 1 tab PO 0800 [facility] Last Admin: 07/24/18 10:59 Dose: 1 tab Nicotine (Nicoderm Cq) 1 patch TD DAILY [facility] Last Admin: 07/24/18 11:46 Dose: 1 patch Potassium Phos/Sodium Phos (Neutra-Phos) 1 pkt PO BID [facility] Stop: 07/26/18 22:16 Last Admin: 07/24/18 11:07 Dose: 1 pkt Prednisolone (Prednisolone Oral Soln) 40 mg PO DAILY [facility] Last Admin: 07/24/18 12:32 Dose: 40 mg - Labs Labs: 07/24/18 06:30 07/24/18 09:30 PT 23.5 SECONDS (9.4-12.5) H 07/24/18 08:50 INR 2.01 07/24/18 08:50 APTT 39.9 Seconds (25.1-36.5) H 07/24/18 08:50 - Constitutional Appears: Toxic, No Acute Distress, Chronically Ill - Head Exam Head Exam: ATRAUMATIC, NORMAL INSPECTION - Eye Exam Eye Exam: EOMI, PERRL, Scleral icterus - ENT Exam ENT Exam: Mucous Membranes Moist - Neck Exam Neck Exam: Full ROM, Normal Inspection - Respiratory Exam Respiratory Exam: Clear to Ausculation Bilateral - Cardiovascular Exam Cardiovascular Exam: REGULAR RHYTHM, +S1, +S2 - GI/Abdominal Exam GI & Abdominal Exam: Distended, Soft, Normal Bowel Sounds, Organomegaly. absent : Guarding Additional comments: Ascites/fluid wave - Extremities Exam Extremities Exam: Normal Capillary Refill. absent: Pedal Edema, Tenderness - Neurological Exam Neurological Exam: Alert, Awake, CN II-XII Intact, Oriented x3 - Skin Skin Exam: Dry, Intact, Warm Additional comments: Diffuse jaundice Assessment and Plan - Assessment and Plan (Free Text) Assessment: 48 y o male PMHx extensive EtOH abuse, pancreatic tail lesion, was found outside and [facility], c/o worsening abdominal pain. Pt tachycardic, hypotensive, and leukocytosis present on admission. Code Sepsis was called. Lactate 15.5 on VBG. EKG demonstrated NSR, no ST-segment elevations or depression, no T-wave inversions, and normal intervals. CT head demonstrated chronic paranasal sinusitis, mild atrophy and chronic periventricular white matter ischemic changes. CXR demonstrated no active disease. Abd U/s demonstrated 4.3 cm pancreatic tail mass, gallbladder sludge, CBD dilation, mild hepatomegaly/fatty infiltration, borderline splenomegaly, non-specific trace pericholecystic fluid. CT abd/pelvis demonstrated interval increase in size of pancreatic tail, stable liver appearance, no acute findings. Pt found to have acute liver failure , hyponatremia, hypokalemia, hyperbilirubinemia. Pt being monitored in ICU. Plan: Sepsis -Tachycardia resolved, hypotensive, Leukocytosis 25.1 today -Elevated lactate on VBG, trending down, f/u repeat levels -IVF D5W @ 125 cc/hr -Further recs as per ICU team -C/w meropenem 1 g q 8 h IVPB -Pending blood, urine, sputum cxs; blood cx growing gram-neg tsering, final results pending -Procalcitonin 0.32 -Pending HIV test -ID consulted, recs appreciated -Echo ordered as per ID, f/u results Acute liver failure -Likely 2/2 EtOH abuse -Alcohol level 119 -Transaminitis -Total and direct bili elevated -Ammonia 92 -CT abd/pelvis, Abd sono findings as described above -Prednisolone 40 mg daily, Meddrey score calc at 60 -Lactulose 20 g PO tid -MVT, thiamine, folate daily PO -GI consulted, recs appreciated EMILIANO -Cr 1.4 on admission, improving today -Urine osmolality low on admission -Nephro consulted, recs appreciated Hypokalemia -K 2.0 on admission, s/p KCl replacement and calcium gluconate, improving -Monitor and replete as necessary, further recs as per ICU -Repeat BMP q 6 h Hyponatremia -Improving, 120 on admission, continue to trend EtOH Withdrawal -CIWA protocol, last CIWA @13:00 was 8 -Ativan 2 mg q 4 h johnnie -Ativan 1 mg q 2 h prn withdrawal symptoms -Seizure, fall precautions Hx smoking -Nicotine patch GI ppx: Pepcid DVT ppx: SCDs Diet: NPO except meds Pt seen, examined with, and plan discussed with Dr. Hare, attending. <Priyank Hare - Last Filed: 07/24/18 17:42> Objective - Vital Signs/Intake and Output Vital Signs (last 24 hours): Temp Pulse Resp BP Pulse Ox 98.2 F 88 16 107/78 96 07/24/18 09:00 07/24/18 16:00 07/24/18 16:00 07/24/18 16:00 07/24/18 01:10 Intake and Output: 07/24/18 07/24/18 06:59 18:59 Output Total 620 Balance -620 - Medications Medications: Current Medications Albuterol/Ipratropium (Duoneb 3 Mg/0.5 Mg (3 Ml) Ud) 3 ml IH [id number] PRN PRN Reason: Wheezing Famotidine (Pepcid) 20 mg IVP DAILY [facility] Last Admin: 07/24/18 10:58 Dose: 20 mg Folic Acid (Folic Acid) 1 mg PO DAILY [facility] Last Admin: 07/24/18 10:59 Dose: 1 mg Thiamine HCl 200 mg/ Sodium (Chloride) 102 mls @ 202 mls/hr IV Q8 [facility] Last Admin: 07/24/18 13:35 Dose: 202 mls/hr Dextrose (Dextrose 5% In Water 1000 Ml) 1,000 mls @ 125 mls/hr IV .Q8H [facility] Last Admin: 07/24/18 16:23 Dose: 125 mls/hr Potassium Chloride (Potassium Chloride 10 Meq/100 Ml) 10 meq in 100 mls @ 50 mls/hr IVPB Q2H [facility] Stop: 07/24/18 19:59 Last Admin: 07/24/18 15:59 Dose: 50 mls/hr Meropenem (Merrem Iv 1 Gm Premix) 50 mls @ 100 mls/hr IVPB Q8 [facility] PRN Reason: Protocol Stop: 07/31/18 14:01 Last Admin: 07/24/18 13:40 Dose: 100 mls/hr Lactulose (Enulose) 20 gm PO TID [facility] Last Admin: 07/24/18 13:38 Dose: 20 gm Lorazepam (Ativan) 1 mg IVP Q2H PRN; Protocol PRN Reason: Symptoms of alcohol withdrawl Last Admin: 07/23/18 20:52 Dose: 1 mg Lorazepam (Ativan) 1 mg IVP Q4H [facility] PRN Reason: Protocol Last Admin: 07/24/18 16:21 Dose: 1 mg Multivitamins (Thera Tab) 1 tab PO 0800 [facility] Last Admin: 07/24/18 10:59 Dose: 1 tab Nicotine (Nicoderm Cq) 1 patch TD DAILY [facility] Last Admin: 07/24/18 11:46 Dose: 1 patch Potassium Chloride (K-Dur 20 Meq Er Tab) 40 meq PO Q6H [facility] Stop: 07/25/18 04:31 Potassium Phos/Sodium Phos (Neutra-Phos) 1 pkt PO BID [facility] Stop: 07/26/18 22:16 Last Admin: 07/24/18 11:07 Dose: 1 pkt Prednisolone (Prednisolone Oral Soln) 40 mg PO DAILY [facility] Last Admin: 07/24/18 12:32 Dose: 40 mg - Labs Labs: 07/24/18 06:30 07/24/18 15:46 PT 23.5 SECONDS (9.4-12.5) H 07/24/18 08:50 INR 2.01 07/24/18 08:50 APTT 39.9 Seconds (25.1-36.5) H 07/24/18 08:50 Attending/Attestation - Attestation I have personally seen and examined this patient.: Yes I have fully participated in the care of the patient.: Yes I have reviewed all pertinent clinical information, including history, physical exam and plan: Yes Notes (Text): 07/24/18 17:38 Medical record note made by the resident after discussion with my direction and input after the patient was personally seen and examined by me. I have reviewed the chart and agree that the record accurately reflects by personal performance of the history, physical exam, data review, and medical decision-making, in the course for the patient. I have also personally directed the plan of care. 48 yrs old male with PMH of Alcohol abuse abuse,alcoholic hepatitis, pancreatic tail lesion, with sepsis, worsening liver function, lactic acidosis , severe hypokalemia, hypophophatemia and Hypomagnasemia .Patient also had elevated creatinin acute kidney injury. Sepsis is likely due to intra abdominal source, on IV antibiotics as per ID.Blood cultures are growing gram negative tsering. Metabolic acidosis due to lactic acidosis due to sepsis and liver failure, acidosis is improved,off bicarbonate drip Electrolyte abnormality, getting replacement, we will monitor electrolyte. Elevated [place] level with encephlopathy, on oral lactulose.We will monitor Management plan was discussed in detail with patient. Education was provided.Need reinforcement. Prognosis is guarded
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
[2018-07-24 16:23] LABS: BLOOD UREA NITROGEN 11 mg/dL (7-21); CALCIUM 8.3 mg/dL (8.4-10.5); GFR NON-AFRICAN AMERICAN > 60
[2018-07-24 17:28] LABS: HEPATITIS A IGM NEGATIVE (NEGATIVE); HEPATITIS B CORE AB NEGATIVE (NEGATIVE)
[2018-07-24 17:36] LABS: HEPATITIS C ANTIBODY NEGATIVE (NEGATIVE)
[2018-07-24 19:27] LABS: HEPATITIS B SURFACE AG Negative (NEGATIVE)
[2018-07-24 22:59] LABS: BLOOD UREA NITROGEN 12 mg/dL (7-21); CALCIUM 8.5 mg/dL (8.4-10.5); GFR NON-AFRICAN AMERICAN > 60
--- NOTE | 2018-07-25 04:19 | CON ---
DATE: 07/24/2018 HISTORY OF PRESENT ILLNESS: I examined Mr. Mccormick this morning. He is currently in the unit. I reviewed his case with nurse as well. Patient is a 48-year-old white male previously seen by this senior market intelligence consultant. PAST MEDICAL HISTORY: Extensive alcohol use, also a pancreatic tail lesion. Question whether he lost consciousness. He has been consuming anywhere between 6 and 9 bottles of Carter ice recently. He denies rectal bleeding, headache, chills, rectal bleeding, etc. According to the H and P, patient also indicated abdominal discomfort. Also, some chest pain made worse with coughing. There has been fatigue, and weakness. PHYSICAL EXAMINATION: VITAL SIGNS: I reviewed this patient's vital signs. HEENT: Unable to be performed. LUNGS: Coarse breath sounds bilaterally. HEART: Irregular rhythm. ABDOMEN: Protuberant, no tenderness elicited in any quadrant. LABORATORY DATA: AI reviewed of this patient's laboratory data indicates initial white count of 17, subsequently WBC count 25,000 as of 6:00 last night. His INR is 1.76 with PT of 30.5. Chemistry on admission indicates significant electrolyte abnormalities including hyponatremia, hypokalemia, decreased chloride. BUN and creatinine ratio of 1.4, phosphorous 1.3, bilirubin 21 on admission with direct of 18. AST, ALT ratio of 472 with alkaline phosphatase of 262. CPK is 243. Most recent electrolytes still abnormal. Patient still has hypokalemia 2.6 K with sodium of 126, glucose 132. He had an abdominal ultrasound, which is not interpreted yet. Results of abdominal pelvic CT performed yesterday indicate an enlarged liver, significant amount of fat. Marked enlargement of caudate lobe. There is a mildly distended gallbladder. The pancreatic tail lesion is still present. This was noted on by the radiologist. I reviewed the reports, especially the consults and the note of Dr. Le in detail. PLAN: His plan consists of panculture, ID consult, IV fluids, prednisone, vitamin, lactulose, etc. Apparently, he is currently on lorazepam 1 mg every 2 hours. Antibiotics include meropenem as well as metronidazole. He had a dose of prednisone 40 mg given yesterday. On review of all the consultants' notes, I think that the therapeutic regimen is adequate and would continue on same. Quinton Sawant DO, [facility] # [id number] MTDShira
[2018-07-25] MEDS: Meropenem IV 1 gm in NS 50 ML IVPB SCH ×3 (05:41→21:15)
[2018-07-25] MEDS: Potassium Chloride 20 mEq ER Tab PO SCH (05:41)
[2018-07-25 06:45] LABS: BASO # 0.01 K/mm3 (0.0-2.0); BASO % 0.1 % (0.0-3.0); EOS % 0.1 % (1.5-5.0); GRAN # 17.14 (1.4-6.5); GRAN % 90.8 % (50.0-68.0); HEMOGLOBIN 9.5 g/dL (14.0-18.0); LYMPH # 0.8 (1.2-3.4); LYMPH % 4.4 % (22.0-35.0); MEAN CELL VOLUME 105.5 fl (80.0-105.0); MEAN CORPUSCULAR HEMOGLOBIN 37.5 pg (25.0-35.0); MEAN CORPUSCULAR HGB CONC 35.6 g/dl (31.0-37.0); MEAN PLATELET VOLUME 12.2 fl (7.0-11.0); MONO # 0.9 (0.1-0.6); MONO % 4.6 % (1.0-6.0); RBC 2.53 10^6/uL (3.5-6.1); RED CELL DISTRIBUTION WIDTH 16.5 % (11.5-14.5); WHITE BLOOD COUNT 18.9 10^3/ul (4.5-11.0)
[2018-07-25 06:51] LABS: INR 1.74; PARTIAL THROMBOPLASTIN TIME 35.3 Seconds (25.1-36.5); PROTHROMBIN TIME 20.2 SECONDS (9.4-12.5)
[2018-07-25 06:58] LABS: ALB/GLOB RATIO 0.6 (1.1-1.8); ALBUMIN 2.9 g/dL (3.0-4.8); ALT/SGPT 76 U/L (7-56); AST/SGOT 306 U/L (17-59); BLOOD UREA NITROGEN 13 mg/dL (7-21); CALCIUM 8.3 mg/dL (8.4-10.5); GFR NON-AFRICAN AMERICAN > 60
--- NOTE | 2018-07-25 07:07 | CP.CCUPN ---
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 - ICU Progress Note No acute events overnight CIWA remained 5-8 Patient is lethargic + agitated and does not want to answer questions CCU Objective - Vital Signs / Intake & Output Intake and Output (Last 8hrs): Intake & Output 07/24/18 07/25/18 07/25/18 22:59 06:59 14:59 Intake Total 1350 Output Total 600 Balance 750 Intake: Oral 400 Other 950 Output: Urine 300 Urine, Voided 300 Emesis 300 Other: # Bowel Movements 2 - Physical Exam Head: Positive for: Atraumatic, Normocephalic Pupils: Positive for: PERRL Extroacular Muscles: Positive for: EOMI Conjunctiva: Positive for: Normal, Icteric Ears: Positive for: Normal Mouth: Positive for: Dry. Negative for: Moist Mucous Membranes Neck: Positive for: Normal Range of Motion Respiratory/Chest: Positive for: Clear to Auscultation. Negative for: Accessory Muscle Use, Wheezes, Retracting Cardiovascular: Positive for: Regular Rate and Rhythm, Normal S1, S2, Peripheal Pulses Present. Negative for: Murmurs Abdomen: Positive for: Tenderness (Epigastric), Distention (Dull to percussion) , Normal Bowel Sounds. Negative for: Peritoneal Signs, Rebound, Rovsing's Sign Present Back: Positive for: Normal Inspection. Negative for: CVA Tenderness Upper Extremity: Positive for: Normal Inspection, Other (markedly darkened skin bilaterally below short sleeved area; Fingernails w/ fungus; appear to be soiled ) Lower Extremity: Positive for: Normal Inspection, NORMAL PULSES. Negative for: Edema, CALF TENDERNESS Neurological: Positive for: GCS=15, CN II-XII Intact, Speech Normal, Motor Func Grossly Intact, Other (tremulous at this time; ) Skin: Positive for: Warm, Dry. Negative for: Normal Color (diffuse moderate to severe jaundice), Diaphoretic Psychiatric: Positive for: Alert, Normal Concentration, Agitated, Lethargic. Negative for: Oriented x 3 (knows place and person but not date or president) - Medications Active Medications: Active Medications Generic Name Dose Route Start Last Admin Trade Name Freq PRN Reason Stop Dose Admin Albuterol/Ipratropium 3 ml 07/23/18 16:06 Duoneb 3 Mg/0.5 Mg (3 Ml) Ud IH [id number] PRN Wheezing Famotidine 20 mg 07/23/18 15:45 07/24/18 10:58 Pepcid IVP 20 mg DAILY VÍCTOR Administration Folic Acid 1 mg 07/23/18 16:15 07/24/18 10:59 Folic Acid PO 1 mg DAILY VÍCTOR Administration Thiamine HCl 200 mg/ Sodium 102 mls @ 202 mls/hr 07/23/18 22:15 07/24/18 22: 05 Chloride IV 202 mls/hr Q8 VÍCTOR Administration Dextrose 1,000 mls @ 125 mls/hr 07/24/18 08:15 07/25/18 01:18 Dextrose 5% In Water 1000 Ml IV 125 mls/hr .Q8H VÍCTOR Administration Meropenem 50 mls @ 100 mls/hr 07/24/18 14:00 07/25/18 05:41 Merrem Iv 1 Gm Premix IVPB 07/31/18 14:01 100 mls/hr Q8 VÍCTOR Administration Protocol Lactulose 20 gm 07/23/18 18:00 07/24/18 17:42 Enulose PO 20 gm TID VÍCTOR Administration Lorazepam 1 mg 07/23/18 15:16 07/23/18 20:52 Ativan IVP 1 mg Q2H PRN Administration Symptoms of alcohol withdrawl Protocol Lorazepam 1 mg 07/24/18 16:00 07/25/18 05:40 Ativan IVP 1 mg Q4H VÍCTOR Administration Protocol Multivitamins 1 tab 07/24/18 08:00 07/24/18 10:59 Thera Tab PO 1 tab 0800 VÍCTOR Administration Nicotine 1 patch 07/23/18 16:15 07/24/18 11:46 Nicoderm Cq TD 1 patch DAILY VÍCTOR Administration Potassium Phos/Sodium Phos 1 pkt 07/23/18 22:15 07/24/18 17:42 Neutra-Phos PO 07/26/18 22:16 1 pkt BID VÍCTOR Administration Prednisolone 40 mg 07/23/18 15:30 07/24/18 12:32 Prednisolone Oral Soln PO 40 mg DAILY VÍCTOR Administration - Patient Studies Lab Studies: Microbiology Studies 07/23/18 13:00 Urine Culture - Preliminary Urine,Clean Catch Gram Negative Archie Lab Studies 07/25/18 07/25/18 07/24/18 Range/Units 05:50 05:50 22:41 WBC (4.5-11.0) 10^3/ul RBC (3.5-6.1) 10^6/uL Hgb (14.0-18.0) g/dL Hct (42.0-52.0) % MCV (80.0-105.0) fl MCH (25.0-35.0) pg MCHC (31.0-37.0) g/dl RDW (11.5-14.5) % Plt Count (120.0-450.0) 10^3/uL MPV (7.0-11.0) fl Gran % (50.0-68.0) % Lymph % (Auto) (22.0-35.0) % Jenkins % (Auto) (1.0-6.0) % Eos % (Auto) (1.5-5.0) % Baso % (Auto) (0.0-3.0) % Gran # (1.4-6.5) Lymph # (Auto) (1.2-3.4) Jenkins # (Auto) (0.1-0.6) Eos # (Auto) (0.0-0.7) Baso # (Auto) (0.0-2.0) K/mm3 PT 20.2 H (9.4-12.5) SECONDS INR 1.74 APTT 35.3 (25.1-36.5) Seconds pO2 (30-55) mm/Hg VBG pH (7.32-7.43) VBG pCO2 (40-60) VBG HCO3 (21-28) mmol/l VBG Total CO2 (22-28) mmol.L VBG O2 Sat (Calc) (40-65) % VBG Base Excess (0.0-2.0) mmol/L VBG Potassium (3.6-5.2) mmol/L Glucose (75-110) mg/dl Lactate (0.7-2.1) mmol/L FiO2 % Sodium 129 L 130 L (132-148) mmol/L Potassium 3.4 L 3.0 L (3.6-5.0) mmol/L Chloride 93 L 92 L (98-107) mmol/L Carbon Dioxide 25 26 (21-33) mmol/L Anion Gap 15 14 (10-20) BUN 13 12 (7-21) mg/dL Creatinine 0.7 L 0.7 L (0.8-1.5) mg/dl Est GFR ( Amer) > 60 > 60 Est GFR (Non-Af Amer) > 60 > 60 POC Glucose (mg/dL) (65-110) mg/dL Random Glucose 126 H 143 H (70-110) mg/dL Calcium 8.3 L 8.5 (8.4-10.5) mg/dL Phosphorus 2.1 L (2.5-4.5) mg/dL Magnesium 2.0 (1.7-2.2) mg/dL Total Bilirubin 23.4 H* (0.2-1.3) mg/dL AST 306 H D (17-59) U/L ALT 76 H (7-56) U/L Alkaline Phosphatase 191 H (38-126) U/L Ammonia (9-33) umol/L Total Protein 7.7 (5.8-8.3) g/dL Albumin 2.9 L (3.0-4.8) g/dL Globulin 4.8 gm/dL Albumin/Globulin Ratio 0.6 L (1.1-1.8) Procalcitonin (0.19-0.49) NG/ML Venous Blood Potassium (3.6-5.2) mmol/L Hepatitis A IgM Ab (NEGATIVE) Hep Bs Antigen (NEGATIVE) Hep B Core IgM Ab (NEGATIVE) Hepatitis C Antibody (NEGATIVE) 07/24/18 07/24/18 07/24/18 Range/Units 15:46 11:27 10:00 WBC (4.5-11.0) 10^3/ul RBC (3.5-6.1) 10^6/uL Hgb (14.0-18.0) g/dL Hct (42.0-52.0) % MCV (80.0-105.0) fl MCH (25.0-35.0) pg MCHC (31.0-37.0) g/dl RDW (11.5-14.5) % Plt Count (120.0-450.0) 10^3/uL MPV (7.0-11.0) fl Gran % (50.0-68.0) % Lymph % (Auto) (22.0-35.0) % Jenkins % (Auto) (1.0-6.0) % Eos % (Auto) (1.5-5.0) % Baso % (Auto) (0.0-3.0) % Gran # (1.4-6.5) Lymph # (Auto) (1.2-3.4) Jenkins # (Auto) (0.1-0.6) Eos # (Auto) (0.0-0.7) Baso # (Auto) (0.0-2.0) K/mm3 PT (9.4-12.5) SECONDS INR APTT (25.1-36.5) Seconds pO2 (30-55) mm/Hg VBG pH (7.32-7.43) VBG pCO2 (40-60) VBG HCO3 (21-28) mmol/l VBG Total CO2 (22-28) mmol.L VBG O2 Sat (Calc) (40-65) % VBG Base Excess (0.0-2.0) mmol/L VBG Potassium (3.6-5.2) mmol/L Glucose (75-110) mg/dl Lactate (0.7-2.1) mmol/L FiO2 % Sodium 132 (132-148) mmol/L Potassium 2.5 L* (3.6-5.0) mmol/L Chloride 91 L (98-107) mmol/L Carbon Dioxide 27 (21-33) mmol/L Anion Gap 17 (10-20) BUN 11 (7-21) mg/dL Creatinine 0.8 (0.8-1.5) mg/dl Est GFR ( Amer) > 60 Est GFR (Non-Af Amer) > 60 POC Glucose (mg/dL) 112 H (65-110) mg/dL Random Glucose 167 H (70-110) mg/dL Calcium 8.3 L (8.4-10.5) mg/dL Phosphorus (2.5-4.5) mg/dL Magnesium (1.7-2.2) mg/dL Total Bilirubin (0.2-1.3) mg/dL AST (17-59) U/L ALT (7-56) U/L Alkaline Phosphatase (38-126) U/L Ammonia (9-33) umol/L Total Protein (5.8-8.3) g/dL Albumin (3.0-4.8) g/dL Globulin gm/dL Albumin/Globulin Ratio (1.1-1.8) Procalcitonin (0.19-0.49) NG/ML Venous Blood Potassium (3.6-5.2) mmol/L Hepatitis A IgM Ab Negative (NEGATIVE) Hep Bs Antigen Negative (NEGATIVE) Hep B Core IgM Ab Negative (NEGATIVE) Hepatitis C Antibody Negative (NEGATIVE) 07/24/18 07/24/18 07/24/18 Range/Units 09:30 09:30 08:50 WBC (4.5-11.0) 10^3/ul RBC (3.5-6.1) 10^6/uL Hgb (14.0-18.0) g/dL Hct (42.0-52.0) % MCV (80.0-105.0) fl MCH (25.0-35.0) pg MCHC (31.0-37.0) g/dl RDW (11.5-14.5) % Plt Count (120.0-450.0) 10^3/uL MPV (7.0-11.0) fl Gran % (50.0-68.0) % Lymph % (Auto) (22.0-35.0) % Jenkins % (Auto) (1.0-6.0) % Eos % (Auto) (1.5-5.0) % Baso % (Auto) (0.0-3.0) % Gran # (1.4-6.5) Lymph # (Auto) (1.2-3.4) Jenkins # (Auto) (0.1-0.6) Eos # (Auto) (0.0-0.7) Baso # (Auto) (0.0-2.0) K/mm3 PT 23.5 H (9.4-12.5) SECONDS INR 2.01 APTT 39.9 H (25.1-36.5) Seconds pO2 (30-55) mm/Hg VBG pH (7.32-7.43) VBG pCO2 (40-60) VBG HCO3 (21-28) mmol/l VBG Total CO2 (22-28) mmol.L VBG O2 Sat (Calc) (40-65) % VBG Base Excess (0.0-2.0) mmol/L VBG Potassium (3.6-5.2) mmol/L Glucose (75-110) mg/dl Lactate (0.7-2.1) mmol/L FiO2 % Sodium 130 L (132-148) mmol/L Potassium 2.1 L* (3.6-5.0) mmol/L Chloride 88 L (98-107) mmol/L Carbon Dioxide 29 (21-33) mmol/L Anion Gap 15 (10-20) BUN 11 (7-21) mg/dL Creatinine 0.9 (0.8-1.5) mg/dl Est GFR ( Amer) > 60 Est GFR (Non-Af Amer) > 60 POC Glucose (mg/dL) (65-110) mg/dL Random Glucose 124 H (70-110) mg/dL Calcium 8.2 L (8.4-10.5) mg/dL Phosphorus (2.5-4.5) mg/dL Magnesium (1.7-2.2) mg/dL Total Bilirubin (0.2-1.3) mg/dL AST (17-59) U/L ALT (7-56) U/L Alkaline Phosphatase (38-126) U/L Ammonia 56 H (9-33) umol/L Total Protein (5.8-8.3) g/dL Albumin (3.0-4.8) g/dL Globulin gm/dL Albumin/Globulin Ratio (1.1-1.8) Procalcitonin (0.19-0.49) NG/ML Venous Blood Potassium (3.6-5.2) mmol/L Hepatitis A IgM Ab (NEGATIVE) Hep Bs Antigen (NEGATIVE) Hep B Core IgM Ab (NEGATIVE) Hepatitis C Antibody (NEGATIVE) 07/24/18 07/24/18 07/24/18 Range/Units 07:20 06:30 06:30 WBC 23.2 H (4.5-11.0) 10^3/ul RBC 2.41 L (3.5-6.1) 10^6/uL Hgb 9.2 L (14.0-18.0) g/dL Hct 24.7 L (42.0-52.0) % MCV 102.5 (80.0-105.0) fl MCH 38.2 H (25.0-35.0) pg MCHC 37.2 H (31.0-37.0) g/dl RDW 15.9 H (11.5-14.5) % Plt Count 73 L (120.0-450.0) 10^3/uL MPV 11.6 H (7.0-11.0) fl Gran % 93.0 H (50.0-68.0) % Lymph % (Auto) 2.8 L (22.0-35.0) % Jenkins % (Auto) 4.2 (1.0-6.0) % Eos % (Auto) 0.0 L (1.5-5.0) % Baso % (Auto) 0.0 (0.0-3.0) % Gran # 21.52 H (1.4-6.5) Lymph # (Auto) 0.7 L (1.2-3.4) Jenkins # (Auto) 1.0 H (0.1-0.6) Eos # (Auto) 0.0 (0.0-0.7) Baso # (Auto) 0.01 (0.0-2.0) K/mm3 PT (9.4-12.5) SECONDS INR APTT (25.1-36.5) Seconds pO2 74 H (30-55) mm/Hg VBG pH 7.54 H (7.32-7.43) VBG pCO2 37.0 L (40-60) VBG HCO3 31.6 H (21-28) mmol/l VBG Total CO2 32.7 H (22-28) mmol.L VBG O2 Sat (Calc) 100.6 H (40-65) % VBG Base Excess 8.6 H (0.0-2.0) mmol/L VBG Potassium 1.9 L* (3.6-5.2) mmol/L Glucose 143 H (75-110) mg/dl Lactate 1.8 (0.7-2.1) mmol/L FiO2 21.0 % Sodium 128.0 L 130 L (132-148) mmol/L Potassium 2.3 L* (3.6-5.0) mmol/L Chloride 91.0 L 89 L (98-107) mmol/L Carbon Dioxide 28 (21-33) mmol/L Anion Gap 15 (10-20) BUN 10 (7-21) mg/dL Creatinine 1.0 (0.8-1.5) mg/dl Est GFR ( Amer) > 60 Est GFR (Non-Af Amer) > 60 POC Glucose (mg/dL) (65-110) mg/dL Random Glucose 135 H (70-110) mg/dL Calcium 8.4 (8.4-10.5) mg/dL Phosphorus 2.6 (2.5-4.5) mg/dL Magnesium 2.2 (1.7-2.2) mg/dL Total Bilirubin 23.4 H* (0.2-1.3) mg/dL AST 466 H (17-59) U/L ALT 82 H (7-56) U/L Alkaline Phosphatase 180 H D (38-126) U/L Ammonia (9-33) umol/L Total Protein 8.0 (5.8-8.3) g/dL Albumin 3.1 (3.0-4.8) g/dL Globulin 4.9 gm/dL Albumin/Globulin Ratio 0.6 L (1.1-1.8) Procalcitonin (0.19-0.49) NG/ML Venous Blood Potassium 1.9 L* (3.6-5.2) mmol/L Hepatitis A IgM Ab (NEGATIVE) Hep Bs Antigen (NEGATIVE) Hep B Core IgM Ab (NEGATIVE) Hepatitis C Antibody (NEGATIVE) 07/23/18 Range/Units 18:00 WBC (4.5-11.0) 10^3/ul RBC (3.5-6.1) 10^6/uL Hgb (14.0-18.0) g/dL Hct (42.0-52.0) % MCV (80.0-105.0) fl MCH (25.0-35.0) pg MCHC (31.0-37.0) g/dl RDW (11.5-14.5) % Plt Count (120.0-450.0) 10^3/uL MPV (7.0-11.0) fl Gran % (50.0-68.0) % Lymph % (Auto) (22.0-35.0) % Jenkins % (Auto) (1.0-6.0) % Eos % (Auto) (1.5-5.0) % Baso % (Auto) (0.0-3.0) % Gran # (1.4-6.5) Lymph # (Auto) (1.2-3.4) Jenkins # (Auto) (0.1-0.6) Eos # (Auto) (0.0-0.7) Baso # (Auto) (0.0-2.0) K/mm3 PT (9.4-12.5) SECONDS INR APTT (25.1-36.5) Seconds pO2 (30-55) mm/Hg VBG pH (7.32-7.43) VBG pCO2 (40-60) VBG HCO3 (21-28) mmol/l VBG Total CO2 (22-28) mmol.L VBG O2 Sat (Calc) (40-65) % VBG Base Excess (0.0-2.0) mmol/L VBG Potassium (3.6-5.2) mmol/L Glucose (75-110) mg/dl Lactate (0.7-2.1) mmol/L FiO2 % Sodium (132-148) mmol/L Potassium (3.6-5.0) mmol/L Chloride (98-107) mmol/L Carbon Dioxide (21-33) mmol/L Anion Gap (10-20) BUN (7-21) mg/dL Creatinine (0.8-1.5) mg/dl Est GFR ( Amer) Est GFR (Non-Af Amer) POC Glucose (mg/dL) (65-110) mg/dL Random Glucose (70-110) mg/dL Calcium (8.4-10.5) mg/dL Phosphorus (2.5-4.5) mg/dL Magnesium (1.7-2.2) mg/dL Total Bilirubin (0.2-1.3) mg/dL AST (17-59) U/L ALT (7-56) U/L Alkaline Phosphatase (38-126) U/L Ammonia (9-33) umol/L Total Protein (5.8-8.3) g/dL Albumin (3.0-4.8) g/dL Globulin gm/dL Albumin/Globulin Ratio (1.1-1.8) Procalcitonin 31.07 H (0.19-0.49) NG/ML Venous Blood Potassium (3.6-5.2) mmol/L Hepatitis A IgM Ab (NEGATIVE) Hep Bs Antigen (NEGATIVE) Hep B Core IgM Ab (NEGATIVE) Hepatitis C Antibody (NEGATIVE) Laboratory Results - last 24 hr 07/23/18 07/24/18 07/24/18 18:00 06:30 06:30 WBC 23.2 H RBC 2.41 L Hgb 9.2 L Hct 24.7 L MCV 102.5 MCH 38.2 H MCHC 37.2 H RDW 15.9 H Plt Count 73 L MPV 11.6 H Gran % 93.0 H Lymph % (Auto) 2.8 L Jenkins % (Auto) 4.2 Eos % (Auto) 0.0 L Baso % (Auto) 0.0 Gran # 21.52 H Lymph # (Auto) 0.7 L Jenkins # (Auto) 1.0 H Eos # (Auto) 0.0 Baso # (Auto) 0.01 PT INR APTT pO2 VBG pH VBG pCO2 VBG HCO3 VBG Total CO2 VBG O2 Sat (Calc) VBG Base Excess VBG Potassium Glucose Lactate FiO2 Sodium 130 L Potassium 2.3 L* Chloride 89 L Carbon Dioxide 28 Anion Gap 15 BUN 10 Creatinine 1.0 Est GFR ( Amer) > 60 Est GFR (Non-Af Amer) > 60 POC Glucose (mg/dL) Random Glucose 135 H Calcium 8.4 Phosphorus 2.6 Magnesium 2.2 Total Bilirubin 23.4 H* AST 466 H ALT 82 H Alkaline Phosphatase 180 H D Ammonia Total Protein 8.0 Albumin 3.1 Globulin 4.9 Albumin/Globulin Ratio 0.6 L Procalcitonin 31.07 H Venous Blood Potassium Hepatitis A IgM Ab Hep Bs Antigen Hep B Core IgM Ab Hepatitis C Antibody 07/24/18 07/24/18 07/24/18 07:20 08:50 09:30 WBC RBC Hgb Hct MCV MCH MCHC RDW Plt Count MPV Gran % Lymph % (Auto) Jenkins % (Auto) Eos % (Auto) Baso % (Auto) Gran # Lymph # (Auto) Jenkins # (Auto) Eos # (Auto) Baso # (Auto) PT 23.5 H INR 2.01 APTT 39.9 H pO2 74 H VBG pH 7.54 H VBG pCO2 37.0 L VBG HCO3 31.6 H VBG Total CO2 32.7 H VBG O2 Sat (Calc) 100.6 H VBG Base Excess 8.6 H VBG Potassium 1.9 L* Glucose 143 H Lactate 1.8 FiO2 21.0 Sodium 128.0 L 130 L Potassium 2.1 L* Chloride 91.0 L 88 L Carbon Dioxide 29 Anion Gap 15 BUN 11 Creatinine 0.9 Est GFR ( Amer) > 60 Est GFR (Non-Af Amer) > 60 POC Glucose (mg/dL) Random Glucose 124 H Calcium 8.2 L Phosphorus Magnesium Total Bilirubin AST ALT Alkaline Phosphatase Ammonia Total Protein Albumin Globulin Albumin/Globulin Ratio Procalcitonin Venous Blood Potassium 1.9 L* Hepatitis A IgM Ab Hep Bs Antigen Hep B Core IgM Ab Hepatitis C Antibody 07/24/18 07/24/18 07/24/18 09:30 10:00 11:27 WBC RBC Hgb Hct MCV MCH MCHC RDW Plt Count MPV Gran % Lymph % (Auto) Jenkins % (Auto) Eos % (Auto) Baso % (Auto) Gran # Lymph # (Auto) Jenkins # (Auto) Eos # (Auto) Baso # (Auto) PT INR APTT pO2 VBG pH VBG pCO2 VBG HCO3 VBG Total CO2 VBG O2 Sat (Calc) VBG Base Excess VBG Potassium Glucose Lactate FiO2 Sodium Potassium Chloride Carbon Dioxide Anion Gap BUN Creatinine Est GFR ( Amer) Est GFR (Non-Af Amer) POC Glucose (mg/dL) 112 H Random Glucose Calcium Phosphorus Magnesium Total Bilirubin AST ALT Alkaline Phosphatase Ammonia 56 H Total Protein Albumin Globulin Albumin/Globulin Ratio Procalcitonin Venous Blood Potassium Hepatitis A IgM Ab Negative Hep Bs Antigen Negative Hep B Core IgM Ab Negative Hepatitis C Antibody Negative 07/24/18 07/24/18 07/25/18 15:46 22:41 05:50 WBC RBC Hgb Hct MCV MCH MCHC RDW Plt Count MPV Gran % Lymph % (Auto) Jenkins % (Auto) Eos % (Auto) Baso % (Auto) Gran # Lymph # (Auto) Jenkins # (Auto) Eos # (Auto) Baso # (Auto) PT INR APTT pO2 VBG pH VBG pCO2 VBG HCO3 VBG Total CO2 VBG O2 Sat (Calc) VBG Base Excess VBG Potassium Glucose Lactate FiO2 Sodium 132 130 L 129 L Potassium 2.5 L* 3.0 L 3.4 L Chloride 91 L 92 L 93 L Carbon Dioxide 27 26 25 Anion Gap 17 14 15 BUN 11 12 13 Creatinine 0.8 0.7 L 0.7 L Est GFR ( Amer) > 60 > 60 > 60 Est GFR (Non-Af Amer) > 60 > 60 > 60 POC Glucose (mg/dL) Random Glucose 167 H 143 H 126 H Calcium 8.3 L 8.5 8.3 L Phosphorus 2.1 L Magnesium 2.0 Total Bilirubin 23.4 H* AST 306 H D ALT 76 H Alkaline Phosphatase 191 H Ammonia Total Protein 7.7 Albumin 2.9 L Globulin 4.8 Albumin/Globulin Ratio 0.6 L Procalcitonin Venous Blood Potassium Hepatitis A IgM Ab Hep Bs Antigen Hep B Core IgM Ab Hepatitis C Antibody 07/25/18 05:50 WBC RBC Hgb Hct MCV MCH MCHC RDW Plt Count MPV Gran % Lymph % (Auto) Jenkins % (Auto) Eos % (Auto) Baso % (Auto) Gran # Lymph # (Auto) Jenkins # (Auto) Eos # (Auto) Baso # (Auto) PT 20.2 H INR 1.74 APTT 35.3 pO2 VBG pH VBG pCO2 VBG HCO3 VBG Total CO2 VBG O2 Sat (Calc) VBG Base Excess VBG Potassium Glucose Lactate FiO2 Sodium Potassium Chloride Carbon Dioxide Anion Gap BUN Creatinine Est GFR ( Amer) Est GFR (Non-Af Amer) POC Glucose (mg/dL) Random Glucose Calcium Phosphorus Magnesium Total Bilirubin AST ALT Alkaline Phosphatase Ammonia Total Protein Albumin Globulin Albumin/Globulin Ratio Procalcitonin Venous Blood Potassium Hepatitis A IgM Ab Hep Bs Antigen Hep B Core IgM Ab Hepatitis C Antibody Fingerstick Blood Sugar Results: 95 Review of Systems - Review of Systems All systems: reviewed and no additional remarkable complaints except Review of Systems: as per HPI Assessment/Plan - Assessment and Plan (Free Text) Assessment: Patient is 48yo male with extensive EtOH abuse, a/w EtOH intoxication, severe sepsis, lactic acidosis, multiple electrolyte derangements. Plan: Neuro: - AAO2 - tremors present, difficulty with coordination - Head Ct negative - CIWA - Ativan 1 Q4 VÍCTOR; 1 Q2 PRN - Pontine protective Serum Sodium Correction; not to exceed 10mmol / 24H; goal of 6-8mmol/24H Cardio: - Normotensive overnight; - Regular heart rate overnight - CXR negative Pulm: - CXR negative - sat >85% on RA GI: - chronic liver failure - electrolytes repleted - Na 128 this AM; will aim for 134/135 by 0600 9/7 - D5W DC'd - NS @ 100mls/hr started - Bili increased to 24, LFTs worsening, likely due to chronic liver disease and cirrhosis - repeat BMP in pm Endo: - BS stable, monitor Renal: - BUN/CR 13/0.7 - Monitor Heme: - H/H stable - Thrombocytopenia 2/2 Cirrhosis vs EtOh supression - Monitor ID: - WBC improving however still elevated - afebrile overnight - c/w merrem and vanc - blood cx: G- rods, Ucx: GNR - Sens pending - ID following Patient was seen and examined at bedside w/ attending physician Dr. Kayleen Momin DO PGY1 Internal Medicine Corn Lab Technician - Pager [phone] - Date & Time Date: 07/25/18 Time: 10:57 <Jamie Le - Last Filed: 07/25/18 11:41> CCU Objective - Vital Signs / Intake & Output Vital Signs (Last 4 hours): Vital Signs Pulse Resp BP 07/25/18 08:00 73 33 H 121/69 Intake and Output (Last 8hrs): Intake & Output 07/24/18 07/25/18 07/25/18 22:59 06:59 14:59 Intake Total 1350 1400 Output Total 600 Balance 750 1400 Weight 128 lb Intake: IV 1300 Left Antecubital 1300 Oral 400 100 Other 950 Output: Urine 300 Urine, Voided 300 Emesis 300 Other: # Voids Urine, Voided 2 # Bowel Movements 2 - Medications Active Medications: Active Medications Generic Name Dose Route Start Last Admin Trade Name Freq PRN Reason Stop Dose Admin Albuterol/Ipratropium 3 ml 07/23/18 16:06 Duoneb 3 Mg/0.5 Mg (3 Ml) Ud IH [id number] PRN Wheezing Famotidine 40 mg 07/25/18 22:00 Pepcid PO HS VÍCTOR Folic Acid 1 mg 07/23/18 16:15 07/25/18 09:36 Folic Acid PO 1 mg DAILY VÍCTOR Administration Meropenem 50 mls @ 100 mls/hr 07/24/18 14:00 07/25/18 05:41 Merrem Iv 1 Gm Premix IVPB 07/31/18 14:01 100 mls/hr Q8 VÍCTOR Administration Protocol Sodium Chloride 1,000 mls @ 100 mls/hr 07/25/18 09:45 07/25/18 10:10 Sodium Chloride 0.9% IV 100 mls/hr .Q10H VÍCTOR Administration Lactulose 20 gm 07/23/18 18:00 07/25/18 09:34 Enulose PO 20 gm TID VÍCTOR Administration Lorazepam 1 mg 07/23/18 15:16 07/23/18 20:52 Ativan IVP 1 mg Q2H PRN Administration Symptoms of alcohol withdrawl Protocol Lorazepam 1 mg 07/24/18 16:00 07/25/18 09:27 Ativan IVP 1 mg Q4H VÍCTOR Administration Protocol Multivitamins 1 tab 07/24/18 08:00 07/25/18 09:27 Thera Tab PO 1 tab 0800 VÍCTOR Administration Nicotine 1 patch 07/23/18 16:15 07/25/18 09:34 Nicoderm Cq TD 1 patch DAILY VÍCTOR Administration Potassium Phos/Sodium Phos 1 pkt 07/23/18 22:15 07/25/18 09:41 Neutra-Phos PO 07/26/18 22:16 1 pkt BID VÍCTOR Administration Prednisolone 40 mg 07/23/18 15:30 07/25/18 09:46 Prednisolone Oral Soln PO 40 mg DAILY VÍCTOR Administration Thiamine HCl 100 mg 07/25/18 10:00 07/25/18 09:50 Vitamin B1 Tab PO 100 mg DAILY VÍCTOR Administration - Patient Studies Lab Studies: Microbiology Studies 07/23/18 13:00 Urine Culture - Final Urine,Clean Catch Escherichia Coli Lab Studies 07/25/18 07/25/18 07/25/18 Range/Units 10:15 05:50 05:50 WBC (4.5-11.0) 10^3/ul RBC (3.5-6.1) 10^6/uL Hgb (14.0-18.0) g/dL Hct (42.0-52.0) % MCV (80.0-105.0) fl MCH (25.0-35.0) pg MCHC (31.0-37.0) g/dl RDW (11.5-14.5) % Plt Count (120.0-450.0) 10^3/uL MPV (7.0-11.0) fl Gran % (50.0-68.0) % Lymph % (Auto) (22.0-35.0) % Jenkins % (Auto) (1.0-6.0) % Eos % (Auto) (1.5-5.0) % Baso % (Auto) (0.0-3.0) % Gran # (1.4-6.5) Lymph # (Auto) (1.2-3.4) Jenkins # (Auto) (0.1-0.6) Eos # (Auto) (0.0-0.7) Baso # (Auto) (0.0-2.0) K/mm3 PT 20.2 H (9.4-12.5) SECONDS INR 1.74 APTT 35.3 (25.1-36.5) Seconds Sodium 131 L 129 L (132-148) mmol/L Potassium 3.4 L 3.4 L (3.6-5.0) mmol/L Chloride 95 L 93 L (98-107) mmol/L Carbon Dioxide 25 25 (21-33) mmol/L Anion Gap 15 15 (10-20) BUN 13 13 (7-21) mg/dL Creatinine 0.7 L 0.7 L (0.8-1.5) mg/dl Est GFR ( Amer) > 60 > 60 Est GFR (Non-Af Amer) > 60 > 60 Random Glucose 111 H 126 H (70-110) mg/dL Calcium 8.5 8.3 L (8.4-10.5) mg/dL Phosphorus 2.1 L (2.5-4.5) mg/dL Magnesium 2.0 (1.7-2.2) mg/dL Total Bilirubin 23.4 H* (0.2-1.3) mg/dL AST 306 H D (17-59) U/L ALT 76 H (7-56) U/L Alkaline Phosphatase 191 H (38-126) U/L Total Protein 7.7 (5.8-8.3) g/dL Albumin 2.9 L (3.0-4.8) g/dL Globulin 4.8 gm/dL Albumin/Globulin Ratio 0.6 L (1.1-1.8) Procalcitonin (0.19-0.49) NG/ML Hepatitis A IgM Ab (NEGATIVE) Hep Bs Antigen (NEGATIVE) Hep B Core IgM Ab (NEGATIVE) Hepatitis C Antibody (NEGATIVE) 07/25/18 07/24/18 07/24/18 Range/Units 05:50 22:41 15:46 WBC 18.9 H (4.5-11.0) 10^3/ul RBC 2.53 L (3.5-6.1) 10^6/uL Hgb 9.5 L (14.0-18.0) g/dL Hct 26.7 L (42.0-52.0) % MCV 105.5 H D (80.0-105.0) fl MCH 37.5 H (25.0-35.0) pg MCHC 35.6 (31.0-37.0) g/dl RDW 16.5 H (11.5-14.5) % Plt Count 79 L (120.0-450.0) 10^3/uL MPV 12.2 H (7.0-11.0) fl Gran % 90.8 H (50.0-68.0) % Lymph % (Auto) 4.4 L (22.0-35.0) % Jenkins % (Auto) 4.6 (1.0-6.0) % Eos % (Auto) 0.1 L (1.5-5.0) % Baso % (Auto) 0.1 (0.0-3.0) % Gran # 17.14 H (1.4-6.5) Lymph # (Auto) 0.8 L (1.2-3.4) Jenkins # (Auto) 0.9 H (0.1-0.6) Eos # (Auto) 0.0 (0.0-0.7) Baso # (Auto) 0.01 (0.0-2.0) K/mm3 PT (9.4-12.5) SECONDS INR APTT (25.1-36.5) Seconds Sodium 130 L 132 (132-148) mmol/L Potassium 3.0 L 2.5 L* (3.6-5.0) mmol/L Chloride 92 L 91 L (98-107) mmol/L Carbon Dioxide 26 27 (21-33) mmol/L Anion Gap 14 17 (10-20) BUN 12 11 (7-21) mg/dL Creatinine 0.7 L 0.8 (0.8-1.5) mg/dl Est GFR ( Amer) > 60 > 60 Est GFR (Non-Af Amer) > 60 > 60 Random Glucose 143 H 167 H (70-110) mg/dL Calcium 8.5 8.3 L (8.4-10.5) mg/dL Phosphorus (2.5-4.5) mg/dL Magnesium (1.7-2.2) mg/dL Total Bilirubin (0.2-1.3) mg/dL AST (17-59) U/L ALT (7-56) U/L Alkaline Phosphatase (38-126) U/L Total Protein (5.8-8.3) g/dL Albumin (3.0-4.8) g/dL Globulin gm/dL Albumin/Globulin Ratio (1.1-1.8) Procalcitonin (0.19-0.49) NG/ML Hepatitis A IgM Ab (NEGATIVE) Hep Bs Antigen (NEGATIVE) Hep B Core IgM Ab (NEGATIVE) Hepatitis C Antibody (NEGATIVE) 07/24/18 07/23/18 Range/Units 10:00 18:00 WBC (4.5-11.0) 10^3/ul RBC (3.5-6.1) 10^6/uL Hgb (14.0-18.0) g/dL Hct (42.0-52.0) % MCV (80.0-105.0) fl MCH (25.0-35.0) pg MCHC (31.0-37.0) g/dl RDW (11.5-14.5) % Plt Count (120.0-450.0) 10^3/uL MPV (7.0-11.0) fl Gran % (50.0-68.0) % Lymph % (Auto) (22.0-35.0) % Jenkins % (Auto) (1.0-6.0) % Eos % (Auto) (1.5-5.0) % Baso % (Auto) (0.0-3.0) % Gran # (1.4-6.5) Lymph # (Auto) (1.2-3.4) Jenkins # (Auto) (0.1-0.6) Eos # (Auto) (0.0-0.7) Baso # (Auto) (0.0-2.0) K/mm3 PT (9.4-12.5) SECONDS INR APTT (25.1-36.5) Seconds Sodium (132-148) mmol/L Potassium (3.6-5.0) mmol/L Chloride (98-107) mmol/L Carbon Dioxide (21-33) mmol/L Anion Gap (10-20) BUN (7-21) mg/dL Creatinine (0.8-1.5) mg/dl Est GFR ( Amer) Est GFR (Non-Af Amer) Random Glucose (70-110) mg/dL Calcium (8.4-10.5) mg/dL Phosphorus (2.5-4.5) mg/dL Magnesium (1.7-2.2) mg/dL Total Bilirubin (0.2-1.3) mg/dL AST (17-59) U/L ALT (7-56) U/L Alkaline Phosphatase (38-126) U/L Total Protein (5.8-8.3) g/dL Albumin (3.0-4.8) g/dL Globulin gm/dL Albumin/Globulin Ratio (1.1-1.8) Procalcitonin 31.07 H (0.19-0.49) NG/ML Hepatitis A IgM Ab Negative (NEGATIVE) Hep Bs Antigen Negative (NEGATIVE) Hep B Core IgM Ab Negative (NEGATIVE) Hepatitis C Antibody Negative (NEGATIVE) Laboratory Results - last 24 hr 07/23/18 07/24/18 07/24/18 18:00 10:00 15:46 WBC RBC Hgb Hct MCV MCH MCHC RDW Plt Count MPV Gran % Lymph % (Auto) Jenkins % (Auto) Eos % (Auto) Baso % (Auto) Gran # Lymph # (Auto) Jenkins # (Auto) Eos # (Auto) Baso # (Auto) PT INR APTT Sodium 132 Potassium 2.5 L* Chloride 91 L Carbon Dioxide 27 Anion Gap 17 BUN 11 Creatinine 0.8 Est GFR ( Amer) > 60 Est GFR (Non-Af Amer) > 60 Random Glucose 167 H Calcium 8.3 L Phosphorus Magnesium Total Bilirubin AST ALT Alkaline Phosphatase Total Protein Albumin Globulin Albumin/Globulin Ratio Procalcitonin 31.07 H Hepatitis A IgM Ab Negative Hep Bs Antigen Negative Hep B Core IgM Ab Negative Hepatitis C Antibody Negative 07/24/18 07/25/18 07/25/18 22:41 05:50 05:50 WBC 18.9 H RBC 2.53 L Hgb 9.5 L Hct 26.7 L MCV 105.5 H D MCH 37.5 H MCHC 35.6 RDW 16.5 H Plt Count 79 L MPV 12.2 H Gran % 90.8 H Lymph % (Auto) 4.4 L Jenkins % (Auto) 4.6 Eos % (Auto) 0.1 L Baso % (Auto) 0.1 Gran # 17.14 H Lymph # (Auto) 0.8 L Jenkins # (Auto) 0.9 H Eos # (Auto) 0.0 Baso # (Auto) 0.01 PT INR APTT Sodium 130 L 129 L Potassium 3.0 L 3.4 L Chloride 92 L 93 L Carbon Dioxide 26 25 Anion Gap 14 15 BUN 12 13 Creatinine 0.7 L 0.7 L Est GFR ( Amer) > 60 > 60 Est GFR (Non-Af Amer) > 60 > 60 Random Glucose 143 H 126 H Calcium 8.5 8.3 L Phosphorus 2.1 L Magnesium 2.0 Total Bilirubin 23.4 H* AST 306 H D ALT 76 H Alkaline Phosphatase 191 H Total Protein 7.7 Albumin 2.9 L Globulin 4.8 Albumin/Globulin Ratio 0.6 L Procalcitonin Hepatitis A IgM Ab Hep Bs Antigen Hep B Core IgM Ab Hepatitis C Antibody 07/25/18 07/25/18 05:50 10:15 WBC RBC Hgb Hct MCV MCH MCHC RDW Plt Count MPV Gran % Lymph % (Auto) Jenkins % (Auto) Eos % (Auto) Baso % (Auto) Gran # Lymph # (Auto) Jenkins # (Auto) Eos # (Auto) Baso # (Auto) PT 20.2 H INR 1.74 APTT 35.3 Sodium 131 L Potassium 3.4 L Chloride 95 L Carbon Dioxide 25 Anion Gap 15 BUN 13 Creatinine 0.7 L Est GFR ( Amer) > 60 Est GFR (Non-Af Amer) > 60 Random Glucose 111 H Calcium 8.5 Phosphorus Magnesium Total Bilirubin AST ALT Alkaline Phosphatase Total Protein Albumin Globulin Albumin/Globulin Ratio Procalcitonin Hepatitis A IgM Ab Hep Bs Antigen Hep B Core IgM Ab Hepatitis C Antibody Critical Care Progress Note - Nutrition Nutrition: Nutrition Category Date Time Status Heart Healthy Diet [DIET] Diets 07/25/18 Breakfast Active Assessment/Plan - Assessment and Plan (Free Text) Assessment: Patient seen and examined on rounds with resident, agree with note with following additions/exceptions: Patient is 48yo male with extensive EtOH abuse, a/w EtOH intoxication, severe sepsis, lactic acidosis, multiple electrolyte derangements. Currently afebrile, HD stable, comfortable in NAD. Labs, imaging, chart reviewed. Lactic acidosis resolved, hyponatremia resolved Started on regular diet Gram negative bacteremia, on abx as per ID Lactic Acidosis, resolved Severe Sepsis Acute Renal Failure Dehydration Hypokalemia Hypophosphotemia, resolved Hypomagnesemia, resolved Hepatic Encephalopathy Chronic Liver disease EtOH withdrawal Recommend: - supp o2 as needed, duonebs PRN, Nicotine Patch - Abx to cover gram negative bacteremia, Merrem - ID follow up - switch IVF to NS - Lactulose 20g TID, titrate to 2 BMs/day - CIWA protocol - Prednisolone for EtOH hepatitis - Thiamine, Folic acid, MVT - replete K - Renal follow up - GI ppx - DVT ppx - transfer to telemetry
[2018-07-25] MEDS ORDERED: Potassium Phosphate 15 MMOLE in Sodium Chloride 0.9% 250 ML IVPB ONE (08:48)
[2018-07-25] MEDS ORDERED: Potassium & Sodium Phosphate PO ONE (09:04)
[2018-07-25] MEDS ORDERED: Potassium Chloride 20 mEq ER Tab PO STA (09:04)
[2018-07-25] MEDS: Multivitamin Therapeutic Tab PO SCH (09:27)
[2018-07-25] MEDS: Potassium & Sodium Phosphate PO SCH ×2 (09:41→17:23)
[2018-07-25] MEDS: PrednisoLONE 15 mg/5 ml Oral Syrup (240 ml) PO SCH (09:46)
[2018-07-25] MEDS: Sodium Chloride 0.9% 1,000 ML IV SCH ×2 (10:10→20:56)
[2018-07-25 10:54] LABS: BLOOD UREA NITROGEN 13 mg/dL (7-21); CALCIUM 8.5 mg/dL (8.4-10.5); GFR NON-AFRICAN AMERICAN > 60
--- NOTE | 2018-07-25 11:21 | PN ---
DATE: 07/25/2018 SUBJECTIVE: I reviewed the consultations and notes of respective consultants regarding Mr. Mccormick. The patient is still in ICU. I discussed this case with the ICU nurses. No major significant change noted in his clinical status. Note that his laboratory data indicates as of yesterday morning H and H of 9.2/24.7, which is stable. Laboratory data is pending for this morning. Note that he has had elevated bilirubin, highest yesterday of 23.4. AST and ALT 466/82. I assume that the patient still receives methylprednisolone today as prophylaxis for alcoholic hepatitis. At the bedside this morning, the patient is still not communicating; however, he does react if pressing on his belly. PHYSICAL EXAMINATION: VITAL SIGNS: I reviewed this patient's vital signs. HEENT: Not able to be performed. LUNGS: Coarse breath sounds bilaterally. HEART: Irregular rhythm. ABDOMEN: Protuberant. No tenderness apparently elicited in any quadrants. OVERALL ASSESSMENT: This is a 48-year-old white male with past medical history of significant alcohol abuse, admitted for the same, currently in the ICU. Reviewed the patient's orders and therapeutic regimen, which appear to be adequate. Apparently, liver function tests have not made too much progress. Note that he has been seen by ID as well as Renal, Medicine, and ICU attendings. Quinton Sawant DO, PhD KAMILAH
--- NOTE | 2018-07-25 11:45 | CP.PCM.PN ---
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 Still c/o diffuse abd pain, sitting up in bed, asking to wear his hat today that is part of his personal belongings. No acute events reported overnight by event staff. Tolerating PO diet without concerns. States burning with urination is improving a little. 12-point ROS obtained, otherwise neg as per pt. Objective - Vital Signs/Intake and Output Vital Signs (last 24 hours): Temp Pulse Resp BP Pulse Ox 98.2 F 73 33 H 121/69 99 07/24/18 09:00 07/25/18 08:00 07/25/18 08:00 07/25/18 08:00 07/25/18 00:00 Intake and Output: 07/25/18 07/25/18 06:59 18:59 Intake Total 1400 Balance 1400 - Medications Medications: Current Medications Albuterol/Ipratropium (Duoneb 3 Mg/0.5 Mg (3 Ml) Ud) 3 ml IH [id number] PRN PRN Reason: Wheezing Famotidine (Pepcid) 40 mg PO HS JOHNNIE Folic Acid (Folic Acid) 1 mg PO DAILY [facility] Last Admin: 07/25/18 09:36 Dose: 1 mg Meropenem (Merrem Iv 1 Gm Premix) 50 mls @ 100 mls/hr IVPB Q8 JOHNNIE PRN Reason: Protocol Stop: 07/31/18 14:01 Last Admin: 07/25/18 05:41 Dose: 100 mls/hr Sodium Chloride (Sodium Chloride 0.9%) 1,000 mls @ 100 mls/hr IV .Q10H JOHNNIE Last Admin: 07/25/18 10:10 Dose: 100 mls/hr Lactulose (Enulose) 20 gm PO TID JOHNNIE Last Admin: 07/25/18 09:34 Dose: 20 gm Lorazepam (Ativan) 1 mg IVP Q2H PRN; Protocol PRN Reason: Symptoms of alcohol withdrawl Last Admin: 07/23/18 20:52 Dose: 1 mg Lorazepam (Ativan) 1 mg IVP Q4H JOHNNIE PRN Reason: Protocol Last Admin: 07/25/18 09:27 Dose: 1 mg Multivitamins (Thera Tab) 1 tab PO 0800 [facility] Last Admin: 07/25/18 09:27 Dose: 1 tab Nicotine (Nicoderm Cq) 1 patch TD DAILY [facility] Last Admin: 07/25/18 09:34 Dose: 1 patch Potassium Phos/Sodium Phos (Neutra-Phos) 1 pkt PO BID [facility] Stop: 07/26/18 22:16 Last Admin: 07/25/18 09:41 Dose: 1 pkt Prednisolone (Prednisolone Oral Soln) 40 mg PO DAILY [facility] Last Admin: 07/25/18 09:46 Dose: 40 mg Thiamine HCl (Vitamin B1 Tab) 100 mg PO DAILY [facility] Last Admin: 07/25/18 09:50 Dose: 100 mg - Labs Labs: 07/25/18 05:50 07/25/18 10:15 PT 20.2 SECONDS (9.4-12.5) H 07/25/18 05:50 INR 1.74 07/25/18 05:50 APTT 35.3 Seconds (25.1-36.5) 07/25/18 05:50 - Constitutional Appears: No Acute Distress, Unkempt, Chronically Ill - Head Exam Head Exam: ATRAUMATIC, NORMAL INSPECTION - Eye Exam Eye Exam: EOMI, PERRL, Scleral icterus - ENT Exam ENT Exam: Mucous Membranes Moist - Respiratory Exam Respiratory Exam: Clear to Ausculation Bilateral, NORMAL BREATHING PATTERN - Cardiovascular Exam Cardiovascular Exam: REGULAR RHYTHM, +S1, +S2 - GI/Abdominal Exam GI & Abdominal Exam: Distended, Soft, Tenderness, Normal Bowel Sounds. absent: Rebound Additional comments: Diffuse tenderness to palpation in all 4 quadrants - Extremities Exam Extremities Exam: Full ROM, Normal Capillary Refill, Normal Inspection - Neurological Exam Neurological Exam: Alert, Awake Additional comments: Oriented x2 - Skin Skin Exam: Dry, Intact, Warm Assessment and Plan - Assessment and Plan (Free Text) Assessment: 48 y o male PMHx extensive EtOH abuse, pancreatic tail lesion, was found outside and BiBEMS, c/o worsening abdominal pain. Pt tachycardic, hypotensive, and leukocytosis present on admission. Code Sepsis was called. Lactate 15.5 on VBG. EKG demonstrated NSR, no ST-segment elevations or depression, no T-wave inversions, and normal intervals. CT head demonstrated chronic paranasal sinusitis, mild atrophy and chronic periventricular white matter ischemic changes. CXR demonstrated no active disease. Abd U/s demonstrated 4.3 cm pancreatic tail mass, gallbladder sludge, CBD dilation, mild hepatomegaly/fatty infiltration, borderline splenomegaly, non-specific trace pericholecystic fluid. CT abd/pelvis demonstrated interval increase in size of pancreatic tail, stable liver appearance, no acute findings. Pt found to have acute liver failure , hyponatremia, hypokalemia, hyperbilirubinemia. Pt being downgraded to telemetry floor. Plan: Sepsis -Tachycardia resolved, hypotensive, Leukocytosis 25.1 today -Elevated lactate on VBG, trending down, f/u repeat levels -IVF NaCl @ 100 cc/hr -Pt to be downgraded from ICU to telemetry -C/w meropenem 1 g q 8 h IVPB -Pending blood, urine, sputum cxs; blood cx growing gram-neg tsering, final results pending -Procalcitonin 0.32 -Pending HIV test -ID consulted, recs appreciated -Echo 07/25: normal EF, no vegetations appreciated Acute liver failure -Likely 2/2 EtOH abuse -Alcohol level 119 -Transaminitis -Total and direct bili elevated -Ammonia 92 -CT abd/pelvis, Abd sono findings as described above -Prednisolone 40 mg daily, Meddrey score calc at 60 -Lactulose 20 g PO tid -MVT, thiamine, folate daily PO -GI consulted, recs appreciated EMILIANO -Cr 1.4 on admission, improving today -Urine osmolality low on admission -Nephro consulted, recs appreciated Hypokalemia -K 2.0 on admission, s/p KCl replacement and calcium gluconate, improving -Monitor and replete as necessary -Repeat BMP q 6 h Hyponatremia -Improving, 120 on admission, continue to trend EtOH Withdrawal -CIWA protocol -Ativan 2 mg q 4 h johnnie -Ativan 1 mg q 2 h prn withdrawal symptoms -Seizure, fall precautions Hx smoking -Nicotine patch GI ppx: Pepcid DVT ppx: SCDs Diet: HHD Pt seen, examined with, and plan discussed with Dr. Hare, attending. <Priyank Hare - Last Filed: 07/26/18 14:08> Objective - Vital Signs/Intake and Output Vital Signs (last 24 hours): Temp Pulse Resp BP Pulse Ox 97.8 F 95 H 13 128/80 97 07/26/18 12:00 07/26/18 10:01 07/26/18 08:59 07/26/18 10:02 07/26/18 07:00 Intake and Output: 07/26/18 07/26/18 06:59 18:59 Intake Total 1200 Output Total 800 Balance 400 - Medications Medications: Current Medications Albuterol/Ipratropium (Duoneb 3 Mg/0.5 Mg (3 Ml) Ud) 3 ml IH [id number] PRN PRN Reason: Wheezing Famotidine (Pepcid) 40 mg PO HS [facility] Last Admin: 07/25/18 21:15 Dose: 40 mg Folic Acid (Folic Acid) 1 mg PO DAILY [facility] Last Admin: 07/26/18 09:29 Dose: 1 mg Meropenem (Merrem Iv 1 Gm Premix) 50 mls @ 100 mls/hr IVPB Q8 JOHNNIE PRN Reason: Protocol Stop: 07/31/18 14:01 Last Admin: 07/26/18 05:31 Dose: 100 mls/hr Sodium Chloride (Sodium Chloride 0.9%) 1,000 mls @ 100 mls/hr IV .Q10H JOHNNIE Last Admin: 07/26/18 06:34 Dose: 100 mls/hr Lactulose (Enulose) 20 gm PO TID [facility] Last Admin: 07/26/18 09:29 Dose: 20 gm Lorazepam (Ativan) 1 mg IVP Q2H PRN; Protocol PRN Reason: Symptoms of alcohol withdrawl Last Admin: 07/23/18 20:52 Dose: 1 mg Lorazepam (Ativan) 1 mg IVP Q4H JOHNNIE PRN Reason: Protocol Last Admin: 07/26/18 12:22 Dose: Not Given Multivitamins (Thera Tab) 1 tab PO 0800 [facility] Last Admin: 07/26/18 07:57 Dose: 1 tab Nicotine (Nicoderm Cq) 1 patch TD DAILY [facility] Last Admin: 07/26/18 09:30 Dose: 1 patch Potassium Phos/Sodium Phos (Neutra-Phos) 1 pkt PO BID [facility] Stop: 07/26/18 22:16 Last Admin: 07/26/18 09:30 Dose: 1 pkt Prednisolone (Prednisolone Oral Soln) 40 mg PO DAILY [facility] Last Admin: 07/26/18 12:24 Dose: 40 mg Thiamine HCl (Vitamin B1 Tab) 100 mg PO DAILY [facility] Last Admin: 07/26/18 09:30 Dose: 100 mg - Labs Labs: 07/26/18 05:00 07/26/18 05:00 PT 18.8 SECONDS (9.4-12.5) H 07/26/18 05:00 INR 1.62 07/26/18 05:00 APTT 31.9 Seconds (25.1-36.5) 07/26/18 05:00 Attending/Attestation - Attestation I have personally seen and examined this patient.: Yes I have fully participated in the care of the patient.: Yes I have reviewed all pertinent clinical information, including history, physical exam and plan: Yes Notes (Text): 07/26/18 14:03 Medical record note made by the resident after discussion with my direction and input after the patient was personally seen and examined by me. I have reviewed the chart and agree that the record accurately reflects by personal performance of the history, physical exam, data review, and medical decision-making, in the course for the patient. I have also personally directed the plan of care. 48 yrs old male with PMH of Alcohol abuse abuse,alcoholic hepatitis, pancreatic tail lesion,was admitted with sepsis, worsening liver function, lactic acidosis, severe hypokalemia, hypophophatemia and Hypomagnasemia . Ecoli Batremia due to UTI. , on IV antibiotics as per ID.Patient is afebrile.WBC is coming down.Echo was reviewed .There is no evidence of endocarditis. Acute alcoholic hepatitis , on oral Prednisone , avoid heptotoxic medication and hypotension. Metabolic acidosis due to lactic acidosis due to sepsis and liver failure, acidosis is improved,off bicarbonate drip Electrolyte abnormality, getting replacement, we will monitor electrolyte. Prognosis is guarded Management plan was discussed in detail with patient. Education was provided. Need reinforcement.
--- NOTE | 2018-07-25 12:26 | CP.PCM.PN ---
Subjective - Date & Time of Evaluation Date of Evaluation: 07/25/18 Time of Evaluation: 10:30 - Subjective Subjective: Patient still feels weak and tired, no fevers overnight, no nausea, no diarrhea. Objective - Vital Signs/Intake and Output Vital Signs (last 24 hours): Temp Pulse Resp BP Pulse Ox 98.2 F 88 16 107/78 96 07/24/18 09:00 07/24/18 16:00 07/24/18 16:00 07/24/18 16:00 07/24/18 01:10 Intake and Output: 07/24/18 07/25/18 18:59 06:59 Intake Total 1350 Output Total 920 Balance 430 - Medications Medications: Current Medications Albuterol/Ipratropium (Duoneb 3 Mg/0.5 Mg (3 Ml) Ud) 3 ml IH [id number] PRN PRN Reason: Wheezing Famotidine (Pepcid) 20 mg IVP DAILY [facility] Last Admin: 07/24/18 10:58 Dose: 20 mg Folic Acid (Folic Acid) 1 mg PO DAILY [facility] Last Admin: 07/24/18 10:59 Dose: 1 mg Thiamine HCl 200 mg/ Sodium (Chloride) 102 mls @ 202 mls/hr IV Q8 [facility] Last Admin: 07/24/18 22:05 Dose: 202 mls/hr Dextrose (Dextrose 5% In Water 1000 Ml) 1,000 mls @ 125 mls/hr IV .Q8H [facility] Last Admin: 07/25/18 01:18 Dose: 125 mls/hr Meropenem (Merrem Iv 1 Gm Premix) 50 mls @ 100 mls/hr IVPB Q8 [facility] PRN Reason: Protocol Stop: 07/31/18 14:01 Last Admin: 07/25/18 05:41 Dose: 100 mls/hr Lactulose (Enulose) 20 gm PO TID [facility] Last Admin: 07/24/18 17:42 Dose: 20 gm Lorazepam (Ativan) 1 mg IVP Q2H PRN; Protocol PRN Reason: Symptoms of alcohol withdrawl Last Admin: 07/23/18 20:52 Dose: 1 mg Lorazepam (Ativan) 1 mg IVP Q4H [facility] PRN Reason: Protocol Last Admin: 07/25/18 05:40 Dose: 1 mg Multivitamins (Thera Tab) 1 tab PO 0800 [facility] Last Admin: 07/24/18 10:59 Dose: 1 tab Nicotine (Nicoderm Cq) 1 patch TD DAILY [facility] Last Admin: 07/24/18 11:46 Dose: 1 patch Potassium Phos/Sodium Phos (Neutra-Phos) 1 pkt PO BID [facility] Stop: 07/26/18 22:16 Last Admin: 07/24/18 17:42 Dose: 1 pkt Prednisolone (Prednisolone Oral Soln) 40 mg PO DAILY [facility] Last Admin: 07/24/18 12:32 Dose: 40 mg - Labs Labs: 07/24/18 06:30 07/24/18 22:41 PT 23.5 SECONDS (9.4-12.5) H 07/24/18 08:50 INR 2.01 07/24/18 08:50 APTT 39.9 Seconds (25.1-36.5) H 07/24/18 08:50 - Constitutional Appears: Chronically Ill - Head Exam Head Exam: NORMAL INSPECTION - Eye Exam Eye Exam: Scleral icterus - ENT Exam ENT Exam: Mucous Membranes Moist - Neck Exam Neck Exam: absent: Meningismus - Respiratory Exam Respiratory Exam: Decreased Breath Sounds - Cardiovascular Exam Cardiovascular Exam: +S1, +S2 - GI/Abdominal Exam GI & Abdominal Exam: Soft. absent: Tenderness Assessment and Plan - Assessment and Plan (Free Text) Plan: Assessment severe sepsis S/P acute renal failure due to gram negative bacilli bacteremia, consider intra-abdominal infection R/O UTI in this patient with acute alcoholic hepatitis acute renal failure chronic ethanol abuse pancreatic tail lesion Plan continue Merrem pending identification and sensitivities of the gram negative bacilli in the blood; urine cx showing watson-sensitive E. coli follow up plans of GI for the alcoholic hepatitis and pancreatic tail lesion ( patient started on systemic steroids); reviewed ultrasound of the abdomen showing non-specific pericholecystic fluid - will follow up GI recommendations will continue to monitor clinically follow up HIV test
--- NOTE | 2018-07-25 15:07 | CP.PCM.PN ---
Subjective - Date & Time of Evaluation Date of Evaluation: 07/25/18 Time of Evaluation: 15:04 - Subjective Subjective: Nephrology Consultation Note: Assessment: stable EMILIANO. Hypokalemia, Hypophosphatemia, hypomagnesemia hyponatremia with low urine osmol but high urine Na: likely due to alcohol abuse /beer potomania HAGMA likely alcoholic and lactic acidosis Anemia ,abnormal LFT, alcohol abuse hyperbilirubunemia with thrombocytopenia and coagulopathy, GNR sepsis Plan no acute need for dialysis at this time supplement lytes as needed continue with IVF, switched to NS. no need for hypertonic saline. not a candidate for samsca. so far, sodium correction in acceptable targets monitor serum Na and K supplement lytes as needed continue with thiamine supplementation anemia management as per primary team Dose meds/antibiotics for normal GFR. Glycemic control. pt need lifestyle modifications, need to abstain from alcohol abuse. Further work up/management as per primary team Thanks for allowing me to participate in care of your patient. Will follow patient with you. Please call if any Qs. had d/w team Dr Herberth Eckert Office: [phone] Chief Complaint; everything hurts Reason for consult: hypokalemia, EMILIANO and hyponatremia source of info: EMR HPI: Pt is a 48 year old male with hx of alcohol abuse came with pain abdomen and found to have severe jaundice with electrolytes abnormalities and EMILIANO hence renal consulted. he feels sick at this time. denies CP/SB. had episode of vomitting and loose stool. admits to daily etoh and poor oral intake. denies urine complaints ROS: pt alert awake now, c/o gen body pain, c/o pain abdomen as well. no SOB rest all other negative except as mentioned in HPI Physical Examination: appears shaky today. hand tremors noted General Appearance: comfortable, in no acute respiratory distress, ill appearing , unkempt Vitals reviewed and noted as below Head; Atraumatic, normocephalic ENT: no ulcers no thrush. Tongue is midline. Oropharynx: no rash or ulcers. EYES: Pupils are equal, round and reactive to light accommodation. Eye muscles and extraocular movement intact. Sclera is icteric. Neck; supple no lymphadenopathy, no thyromegaly or bruit Lungs: Normal respiratory rate/effort. Breath sounds bilateral clear b/l Heart: Normal rate. s1s2 normal. No rub or gallop. Extremities: no edema. No varicose veins Neurological: Patient is alert, awake and oriented to person, place and time. No focal deficit. Strength bilateral appropriate and equal Skin: Warm and dry. Normal turgor. No rash. Palpitation: Normal elasticity for age. grossly lemon yellow color. few spider angioma on Rt upper chest Abdomen: Abdomen is soft/distended. Bowel sounds +. There is RUQ abdominal tenderness, no guarding/rigidity ? hepatomegaly Psych: limited insight. flat affect MSK: no joint tenderness or swelling. Digits normal, no deformity. nails all big : kidney or bladder not palpable Labs/imaging reviewed. Past medical history, past surgical history, family history, social history, allergy reviewed and noted as below Family hx: no hx of CKD. Rest non-contributory Objective - Vital Signs/Intake and Output Vital Signs (last 24 hours): Temp Pulse Resp BP Pulse Ox 98.1 F 88 18 113/79 100 07/25/18 12:00 07/25/18 13:50 07/25/18 13:50 07/25/18 13:50 07/25/18 13:50 Intake and Output: 07/25/18 07/25/18 06:59 18:59 Intake Total 1400 Balance 1400 - Medications Medications: Current Medications Albuterol/Ipratropium (Duoneb 3 Mg/0.5 Mg (3 Ml) Ud) 3 ml IH [id number] PRN PRN Reason: Wheezing Famotidine (Pepcid) 40 mg PO HS [facility] Folic Acid (Folic Acid) 1 mg PO DAILY [facility] Last Admin: 07/25/18 09:36 Dose: 1 mg Meropenem (Merrem Iv 1 Gm Premix) 50 mls @ 100 mls/hr IVPB Q8 [facility] PRN Reason: Protocol Stop: 07/31/18 14:01 Last Admin: 07/25/18 13:45 Dose: 100 mls/hr Sodium Chloride (Sodium Chloride 0.9%) 1,000 mls @ 100 mls/hr IV .Q10H [facility] Last Admin: 07/25/18 10:10 Dose: 100 mls/hr Lactulose (Enulose) 20 gm PO TID [facility] Last Admin: 07/25/18 13:44 Dose: 20 gm Lorazepam (Ativan) 1 mg IVP Q2H PRN; Protocol PRN Reason: Symptoms of alcohol withdrawl Last Admin: 07/23/18 20:52 Dose: 1 mg Lorazepam (Ativan) 1 mg IVP Q4H [facility] PRN Reason: Protocol Last Admin: 07/25/18 12:30 Dose: 1 mg Multivitamins (Thera Tab) 1 tab PO 0800 [facility] Last Admin: 07/25/18 09:27 Dose: 1 tab Nicotine (Nicoderm Cq) 1 patch TD DAILY [facility] Last Admin: 07/25/18 09:34 Dose: 1 patch Potassium Phos/Sodium Phos (Neutra-Phos) 1 pkt PO BID [facility] Stop: 07/26/18 22:16 Last Admin: 07/25/18 09:41 Dose: 1 pkt Prednisolone (Prednisolone Oral Soln) 40 mg PO DAILY [facility] Last Admin: 07/25/18 09:46 Dose: 40 mg Thiamine HCl (Vitamin B1 Tab) 100 mg PO DAILY [facility] Last Admin: 07/25/18 09:50 Dose: 100 mg - Labs Labs: 07/25/18 05:50 07/25/18 10:15 PT 20.2 SECONDS (9.4-12.5) H 07/25/18 05:50 INR 1.74 07/25/18 05:50 APTT 35.3 Seconds (25.1-36.5) 07/25/18 05:50
--- NOTE | 2018-07-25 16:04 | CARD ---
APPROVED REPORT Date of service: 07/25/2018 EXAM: Two-dimensional and M-mode echocardiogram with Doppler and color Doppler. INDICATION R/O VEGETATION 2D DIMENSIONS Left Atrium (2D)4.1 (1.6-4.0cm)IVSd1.0 (0.7-1.1cm) LVDd4.4 (3.9-5.9cm)PWd0.8 (0.7-1.1cm) LVDs3.2 (2.5-4.0cm)FS (%) 28.4 % LVEF (%)55.1 (>50%) M-Mode DIMENSIONS Aortic Root3.90 (2.2-3.7cm)Aortic Cusp Exc.1.70 (1.5-2.0cm) Aortic Valve AoV Peak Uhgufqqh964.0cm/Kylie Peak GR.5mmHg Mitral Valve MV E Jekvtwzn52.6cm/sMV A Obycrovh19.9cm/sE/A ratio0.8 TDI Lateral E' Peak V11.70cm/sMedial E' Peak V8.09cm/sE/Lateral E'5.8 E/Medial E'8.4 Pulmonary Valve PV Peak Edvpqbeo21.7cm/sPV Peak Grad.2mmHg Tricuspid Valve TR Peak Nwvllpjj552sn/sRAP MUWEYRJG28xmGuEF Peak Gr.10mmHg [id number] LEFT VENTRICLE The left ventricle is normal size. There is normal left ventricular wall thickness. The left ventricular function is normal. The left ventricular ejection fraction is within the normal range. There is normal LV segmental wall motion. Transmitral Doppler flow pattern is Grade I-abnormal relaxation pattern. RIGHT VENTRICLE The right ventricle is normal size. There is normal right ventricular wall thickness. The right ventricular systolic function is normal. ATRIA The left atrium size is normal. The right atrium size is normal. AORTIC VALVE The aortic valve is thickened but opens well. No aortic regurgitation is present. There is no aortic valvular stenosis. MITRAL VALVE The mitral valve is mildly thickened. There is no mitral valve regurgitation noted. There is no mitral valve stenosis. TRICUSPID VALVE The tricuspid valve is normal in structure. There is trace tricuspid regurgitation. PULMONIC VALVE The pulmonary valve is normal in structure. There is trace pulmonic valvular regurgitation. GREAT VESSELS The aortic root is mildly enlarged. The IVC is normal in size and collapses >50% with inspiration. PERICARDIAL EFFUSION There is no pericardial effusion. <Conclusion> The left ventricle is normal size. There is normal left ventricular wall thickness. The left ventricular function is normal. The left ventricular ejection fraction is within the normal range. There is normal LV segmental wall motion. Transmitral Doppler flow pattern is Grade I-abnormal relaxation pattern. No vegitation seen
[2018-07-25 16:23] LABS: BLOOD UREA NITROGEN 13 mg/dL (7-21); CALCIUM 8.7 mg/dL (8.4-10.5); GFR NON-AFRICAN AMERICAN > 60
[2018-07-26] MEDS: Meropenem IV 1 gm in NS 50 ML IVPB SCH ×3 (05:31→21:49)
[2018-07-26 05:52] LABS: EOS % 0.1 % (1.5-5.0); GRAN # 13.58 (1.4-6.5); GRAN % 88.4 % (50.0-68.0); HEMOGLOBIN 9.6 g/dL (14.0-18.0); LYMPH % 6.6 % (22.0-35.0); MEAN CELL VOLUME 107.1 fl (80.0-105.0); MEAN CORPUSCULAR HEMOGLOBIN 37.8 pg (25.0-35.0); MEAN CORPUSCULAR HGB CONC 35.3 g/dl (31.0-37.0); MEAN PLATELET VOLUME 11.4 fl (7.0-11.0); MONO # 0.8 (0.1-0.6); MONO % 4.9 % (1.0-6.0); RBC 2.54 10^6/uL (3.5-6.1); RED CELL DISTRIBUTION WIDTH 16.9 % (11.5-14.5); WHITE BLOOD COUNT 15.4 10^3/ul (4.5-11.0)
[2018-07-26 06:00] LABS: INR 1.62; PARTIAL THROMBOPLASTIN TIME 31.9 Seconds (25.1-36.5); PROTHROMBIN TIME 18.8 SECONDS (9.4-12.5)
[2018-07-26 06:06] LABS: ALB/GLOB RATIO 0.6 (1.1-1.8); ALBUMIN 2.6 g/dL (3.0-4.8); ALT/SGPT 74 U/L (7-56); AST/SGOT 265 U/L (17-59); BLOOD UREA NITROGEN 14 mg/dL (7-21); CALCIUM 8.4 mg/dL (8.4-10.5); GFR NON-AFRICAN AMERICAN > 60
[2018-07-26] MEDS: Sodium Chloride 0.9% 1,000 ML IV SCH ×2 (06:34→22:08)
[2018-07-26] MEDS ORDERED: Potassium Chloride 20 mEq ER Tab PO STA (07:44)
[2018-07-26] MEDS: Multivitamin Therapeutic Tab PO SCH (07:57)
[2018-07-26] MEDS: Potassium & Sodium Phosphate PO SCH ×2 (09:30→17:20)
--- NOTE | 2018-07-26 10:51 | CP.PCM.PN ---
Subjective - Date & Time of Evaluation Date of Evaluation: 07/26/18 Time of Evaluation: 10:50 - Subjective Subjective: Nephrology Consultation Note: Assessment: stable EMILIANO. Hypokalemia, Hypophosphatemia, hypomagnesemia: RESOLVED hyponatremia with low urine osmol but high urine Na: likely due to alcohol abuse /beer potomania: IMPROVED HAGMA likely alcoholic and lactic acidosis; RESOLVED Anemia ,abnormal LFT, alcohol abuse hyperbilirubunemia with thrombocytopenia and coagulopathy, GNR sepsis Plan no acute need for dialysis at this time supplement lytes as needed can d/c IVF from renal perspective supplement lytes as needed continue with thiamine supplementation anemia management as per primary team Dose meds/antibiotics for normal GFR. Glycemic control. pt need lifestyle modifications, need to abstain from alcohol abuse. Further work up/management as per primary team Thanks for allowing me to participate in care of your patient. Will sign off and follow patient with you further PRN. Please call if any Qs. had d/w team Dr Herberth Eckert Office: [phone] Chief Complaint; everything hurts Reason for consult: hypokalemia, EMILIANO and hyponatremia source of info: EMR HPI: Pt is a 48 year old male with hx of alcohol abuse came with pain abdomen and found to have severe jaundice with electrolytes abnormalities and EMILIANO hence renal consulted. he feels sick at this time. denies CP/SB. had episode of vomitting and loose stool. admits to daily etoh and poor oral intake. denies urine complaints ROS: pt sleeping, on 1;1 and not much communicative Physical Examination: General Appearance: comfortable, in no acute respiratory distress, ill appearing , unkempt Vitals reviewed and noted as below Head; Atraumatic, normocephalic ENT: no ulcers no thrush. Tongue is midline. Oropharynx: no rash or ulcers. EYES: Pupils are equal, round and reactive to light accommodation. Eye muscles and extraocular movement intact. Sclera is icteric. Neck; supple no lymphadenopathy, no thyromegaly or bruit Lungs: Normal respiratory rate/effort. Breath sounds bilateral clear b/l Heart: Normal rate. s1s2 normal. No rub or gallop. Extremities: no edema. No varicose veins Neurological: Patient is sleeping. No focal deficit. Strength bilateral appropriate and equal Skin: Warm and dry. Normal turgor. No rash. Palpitation: Normal elasticity for age. grossly lemon yellow color. few spider angioma on Rt upper chest Abdomen: Abdomen is soft/distended. Bowel sounds +. There is RUQ abdominal tenderness, no guarding/rigidity ? hepatomegaly Psych: limited insight. flat affect MSK: no joint tenderness or swelling. Digits normal, no deformity. nails all big : kidney or bladder not palpable Labs/imaging reviewed. Past medical history, past surgical history, family history, social history, allergy reviewed and noted as below Family hx: no hx of CKD. Rest non-contributory Objective - Vital Signs/Intake and Output Vital Signs (last 24 hours): Temp Pulse Resp BP Pulse Ox 98.2 F 99 H 19 123/110 H 100 07/26/18 06:00 07/26/18 06:05 07/26/18 06:01 07/26/18 06:05 07/26/18 02:00 Intake and Output: 07/26/18 07/26/18 06:59 18:59 Intake Total 1200 Output Total 800 Balance 400 - Medications Medications: Current Medications Albuterol/Ipratropium (Duoneb 3 Mg/0.5 Mg (3 Ml) Ud) 3 ml IH [id number] PRN PRN Reason: Wheezing Famotidine (Pepcid) 40 mg PO HS [facility] Last Admin: 07/25/18 21:15 Dose: 40 mg Folic Acid (Folic Acid) 1 mg PO DAILY [facility] Last Admin: 07/26/18 09:29 Dose: 1 mg Meropenem (Merrem Iv 1 Gm Premix) 50 mls @ 100 mls/hr IVPB Q8 [facility] PRN Reason: Protocol Stop: 07/31/18 14:01 Last Admin: 07/26/18 05:31 Dose: 100 mls/hr Sodium Chloride (Sodium Chloride 0.9%) 1,000 mls @ 100 mls/hr IV .Q10H [facility] Last Admin: 07/26/18 06:34 Dose: 100 mls/hr Lactulose (Enulose) 20 gm PO TID [facility] Last Admin: 07/26/18 09:29 Dose: 20 gm Lorazepam (Ativan) 1 mg IVP Q2H PRN; Protocol PRN Reason: Symptoms of alcohol withdrawl Last Admin: 07/23/18 20:52 Dose: 1 mg Lorazepam (Ativan) 1 mg IVP Q4H [facility] PRN Reason: Protocol Last Admin: 07/26/18 07:57 Dose: 1 mg Multivitamins (Thera Tab) 1 tab PO 0800 [facility] Last Admin: 07/26/18 07:57 Dose: 1 tab Nicotine (Nicoderm Cq) 1 patch TD DAILY [facility] Last Admin: 07/26/18 09:30 Dose: 1 patch Potassium Phos/Sodium Phos (Neutra-Phos) 1 pkt PO BID [facility] Stop: 07/26/18 22:16 Last Admin: 07/26/18 09:30 Dose: 1 pkt Prednisolone (Prednisolone Oral Soln) 40 mg PO DAILY [facility] Last Admin: 07/25/18 09:46 Dose: 40 mg Thiamine HCl (Vitamin B1 Tab) 100 mg PO DAILY [facility] Last Admin: 07/26/18 09:30 Dose: 100 mg - Labs Labs: 07/26/18 05:00 07/26/18 05:00 PT 18.8 SECONDS (9.4-12.5) H 07/26/18 05:00 INR 1.62 07/26/18 05:00 APTT 31.9 Seconds (25.1-36.5) 07/26/18 05:00
--- NOTE | 2018-07-26 11:48 | CP.PCM.PN ---
Subjective - Date & Time of Evaluation Date of Evaluation: 07/26/18 Time of Evaluation: 11:20 - Subjective Subjective: No fevers, feels tired, no abdominal pain, no diarrhea, no nausea, no dysuria. Objective - Vital Signs/Intake and Output Vital Signs (last 24 hours): Temp Pulse Resp BP Pulse Ox 98.1 F 89 25 H 109/75 100 07/25/18 12:00 07/25/18 12:00 07/25/18 12:00 07/25/18 11:00 07/25/18 12:00 Intake and Output: 07/25/18 07/25/18 06:59 18:59 Intake Total 1400 Balance 1400 - Medications Medications: Current Medications Albuterol/Ipratropium (Duoneb 3 Mg/0.5 Mg (3 Ml) Ud) 3 ml IH [id number] PRN PRN Reason: Wheezing Famotidine (Pepcid) 40 mg PO HS [facility] Folic Acid (Folic Acid) 1 mg PO DAILY [facility] Last Admin: 07/25/18 09:36 Dose: 1 mg Meropenem (Merrem Iv 1 Gm Premix) 50 mls @ 100 mls/hr IVPB Q8 [facility] PRN Reason: Protocol Stop: 07/31/18 14:01 Last Admin: 07/25/18 05:41 Dose: 100 mls/hr Sodium Chloride (Sodium Chloride 0.9%) 1,000 mls @ 100 mls/hr IV .Q10H [facility] Last Admin: 07/25/18 10:10 Dose: 100 mls/hr Lactulose (Enulose) 20 gm PO TID [facility] Last Admin: 07/25/18 09:34 Dose: 20 gm Lorazepam (Ativan) 1 mg IVP Q2H PRN; Protocol PRN Reason: Symptoms of alcohol withdrawl Last Admin: 07/23/18 20:52 Dose: 1 mg Lorazepam (Ativan) 1 mg IVP Q4H [facility] PRN Reason: Protocol Last Admin: 07/25/18 09:27 Dose: 1 mg Multivitamins (Thera Tab) 1 tab PO 0800 [facility] Last Admin: 07/25/18 09:27 Dose: 1 tab Nicotine (Nicoderm Cq) 1 patch TD DAILY [facility] Last Admin: 07/25/18 09:34 Dose: 1 patch Potassium Phos/Sodium Phos (Neutra-Phos) 1 pkt PO BID [facility] Stop: 07/26/18 22:16 Last Admin: 07/25/18 09:41 Dose: 1 pkt Prednisolone (Prednisolone Oral Soln) 40 mg PO DAILY [facility] Last Admin: 07/25/18 09:46 Dose: 40 mg Thiamine HCl (Vitamin B1 Tab) 100 mg PO DAILY [facility] Last Admin: 07/25/18 09:50 Dose: 100 mg - Labs Labs: 07/25/18 05:50 07/25/18 10:15 PT 20.2 SECONDS (9.4-12.5) H 07/25/18 05:50 INR 1.74 07/25/18 05:50 APTT 35.3 Seconds (25.1-36.5) 07/25/18 05:50 - Constitutional Appears: Chronically Ill - Head Exam Head Exam: NORMAL INSPECTION - Eye Exam Eye Exam: Scleral icterus - ENT Exam ENT Exam: Mucous Membranes Moist - Neck Exam Neck Exam: absent: Meningismus - Respiratory Exam Respiratory Exam: Decreased Breath Sounds - Cardiovascular Exam Cardiovascular Exam: +S1, +S2 - GI/Abdominal Exam GI & Abdominal Exam: Soft. absent: Tenderness Assessment and Plan - Assessment and Plan (Free Text) Plan: Assessment severe sepsis S/P acute renal failure due to E. coli bacteremia, probably due to UTI R/O intra-abdominal infection in this patient with acute alcoholic hepatitis acute renal failure chronic ethanol abuse pancreatic tail lesion Plan will switch Merrem to Rocephin sicne the blood and urine cx are showing watson- sensitive E. coli; repeat blood cx are negative and 2D echo is negative for vegetations follow up plans of GI for the alcoholic hepatitis and pancreatic tail lesion ( patient started on systemic steroids); reviewed ultrasound of the abdomen showing non-specific pericholecystic fluid - will follow up further GI recommendations will continue to monitor clinically HIV test is non-reactive
[2018-07-26] MEDS: PrednisoLONE 15 mg/5 ml Oral Syrup (240 ml) PO SCH (12:24)
--- NOTE | 2018-07-26 15:50 | CP.PCM.PN ---
<Jem Abbott - Last Filed: 07/26/18 16:33> Subjective - Date & Time of Evaluation Date of Evaluation: 07/26/18 Time of Evaluation: 07:30 - Subjective Subjective: Pt seen and examined this morning in the ICU. Pt reports no new complaints at this time. Pt only answers questions with short brief answers. Objective - Vital Signs/Intake and Output Vital Signs (last 24 hours): Temp Pulse Resp BP Pulse Ox 97.8 F 95 H 13 128/80 97 07/26/18 12:00 07/26/18 10:01 07/26/18 08:59 07/26/18 10:02 07/26/18 07:00 Intake and Output: 07/26/18 07/26/18 06:59 18:59 Intake Total 1200 Output Total 800 Balance 400 - Medications Medications: Current Medications Albuterol/Ipratropium (Duoneb 3 Mg/0.5 Mg (3 Ml) Ud) 3 ml IH [id number] PRN PRN Reason: Wheezing Famotidine (Pepcid) 40 mg PO HS [facility] Last Admin: 07/25/18 21:15 Dose: 40 mg Folic Acid (Folic Acid) 1 mg PO DAILY [facility] Last Admin: 07/26/18 09:29 Dose: 1 mg Meropenem (Merrem Iv 1 Gm Premix) 50 mls @ 100 mls/hr IVPB Q8 [facility] PRN Reason: Protocol Stop: 07/31/18 14:01 Last Admin: 07/26/18 05:31 Dose: 100 mls/hr Sodium Chloride (Sodium Chloride 0.9%) 1,000 mls @ 100 mls/hr IV .Q10H [facility] Last Admin: 07/26/18 06:34 Dose: 100 mls/hr Lactulose (Enulose) 20 gm PO TID [facility] Last Admin: 07/26/18 09:29 Dose: 20 gm Lorazepam (Ativan) 1 mg IVP Q2H PRN; Protocol PRN Reason: Symptoms of alcohol withdrawl Last Admin: 07/23/18 20:52 Dose: 1 mg Lorazepam (Ativan) 1 mg IVP Q4H [facility] PRN Reason: Protocol Last Admin: 07/26/18 12:22 Dose: Not Given Multivitamins (Thera Tab) 1 tab PO 0800 [facility] Last Admin: 07/26/18 07:57 Dose: 1 tab Nicotine (Nicoderm Cq) 1 patch TD DAILY [facility] Last Admin: 07/26/18 09:30 Dose: 1 patch Potassium Phos/Sodium Phos (Neutra-Phos) 1 pkt PO BID [facility] Stop: 07/26/18 22:16 Last Admin: 07/26/18 09:30 Dose: 1 pkt Prednisolone (Prednisolone Oral Soln) 40 mg PO DAILY [facility] Last Admin: 07/26/18 12:24 Dose: 40 mg Thiamine HCl (Vitamin B1 Tab) 100 mg PO DAILY [facility] Last Admin: 07/26/18 09:30 Dose: 100 mg - Labs Labs: 07/26/18 05:00 07/26/18 05:00 PT 18.8 SECONDS (9.4-12.5) H 07/26/18 05:00 INR 1.62 07/26/18 05:00 APTT 31.9 Seconds (25.1-36.5) 07/26/18 05:00 - Head Exam Head Exam: ATRAUMATIC, NORMOCEPHALIC - Eye Exam Eye Exam: EOMI, Scleral icterus - ENT Exam ENT Exam: Mucous Membranes Moist - Respiratory Exam Respiratory Exam: Clear to Ausculation Bilateral. absent: Accessory Muscle Use - Cardiovascular Exam Cardiovascular Exam: RRR - GI/Abdominal Exam GI & Abdominal Exam: Soft, Normal Bowel Sounds - Extremities Exam Extremities Exam: absent: Calf Tenderness - Neurological Exam Neurological Exam: Awake - Skin Additional comments: jaundice Assessment and Plan - Assessment and Plan (Free Text) Assessment: Pt is a 48 yo male with a PMH of alcoholism, pancreatic lesion, who was brought in by ambulance after an episode of LOC possible head trauma. Plan: Urosepsis - WBC 15.4, improving - NS@100ml/hr - continue meropenum 1gram q8 - Blood cultures 9-7, no growth after 24 hours - Urine cultures growing E. coli - Blood cultures growing E. coli - ID following - Hospice, pallative care consulted for Saturday Liver Failure - transaminitis - AST 265 - ALT 74 - T Bili 21 - prednisone 40 PO daily - Continue lactulose - Lactulose 20 grams PO TID - avoid hepatotoxic drugs - Continue thiamine, folate, multivitamin - GI following Anemia - Hgb 9.6, - stable at this time - continue to monitor Alcohol Withdrawal - CIWA score 9 - continue CIWA protocol -Ativan 1mg Q4 [facility], 1mg Q2 PRN -continue Seizure, fall precautions Pt seen, examined, and assessment/ plan discussed with Dr Hare. Jem Abbott PGY1 <Priyank Hare - Last Filed: 07/27/18 15:10> Objective - Vital Signs/Intake and Output Vital Signs (last 24 hours): Temp Pulse Resp BP Pulse Ox 97.8 F 85 18 125/87 97 07/26/18 12:00 07/26/18 22:00 07/26/18 17:59 07/26/18 18:00 07/26/18 07:00 - Medications Medications: Current Medications Albuterol/Ipratropium (Duoneb 3 Mg/0.5 Mg (3 Ml) Ud) 3 ml IH [id number] PRN PRN Reason: Wheezing Famotidine (Pepcid) 40 mg PO HS [facility] Last Admin: 07/26/18 22:06 Dose: 40 mg Folic Acid (Folic Acid) 1 mg PO DAILY [facility] Last Admin: 07/27/18 10:55 Dose: 1 mg Ceftriaxone Sodium (Rocephin 2 Gm Ivpb) 2 gm in 100 mls @ 100 mls/hr IVPB DAILY [facility] PRN Reason: Protocol Last Admin: 07/27/18 10:55 Dose: 100 mls/hr Lactulose (Enulose) 20 gm PO TID [facility] Last Admin: 07/27/18 14:11 Dose: 20 gm Lorazepam (Ativan) 1 mg IVP Q2H PRN; Protocol PRN Reason: Symptoms of alcohol withdrawl Last Admin: 07/23/18 20:52 Dose: 1 mg Lorazepam (Ativan) 1 mg IVP Q4H [facility] PRN Reason: Protocol Last Admin: 07/27/18 08:00 Dose: Not Given Multivitamins (Thera Tab) 1 tab PO 0800 [facility] Last Admin: 07/27/18 08:35 Dose: 1 tab Nicotine (Nicoderm Cq) 1 patch TD DAILY [facility] Last Admin: 07/27/18 10:55 Dose: 1 patch Prednisolone (Prednisolone Oral Soln) 40 mg PO DAILY [facility] Last Admin: 07/27/18 11:36 Dose: 40 mg Thiamine HCl (Vitamin B1 Tab) 100 mg PO DAILY [facility] Last Admin: 07/27/18 10:55 Dose: 100 mg - Labs Labs: 07/27/18 05:00 07/27/18 05:00 PT 20.4 SECONDS (9.4-12.5) H 07/27/18 05:00 INR 1.75 07/27/18 05:00 APTT 31.6 Seconds (25.1-36.5) 07/27/18 05:00 Attending/Attestation - Attestation I have personally seen and examined this patient.: Yes I have fully participated in the care of the patient.: Yes I have reviewed all pertinent clinical information, including history, physical exam and plan: Yes Notes (Text): 07/27/18 15:09 Medical record note made by the resident after discussion with my direction and input after the patient was personally seen and examined by me. I have reviewed the chart and agree that the record accurately reflects by personal performance of the history, physical exam, data review, and medical decision-making, in the course for the patient. I have also personally directed the plan of care. 48 yrs old male with PMH of Alcohol abuse abuse,alcoholic hepatitis, pancreatic tail lesion,was admitted with sepsis, worsening liver function, lactic acidosis, severe hypokalemia, hypophophatemia and Hypomagnasemia . Sepsis due to Ecoli Batremia due to UTI. , on IV Rocephin as per ID.Patient is afebrile.WBC is coming down.Echo was reviewed .There is no evidence of endocarditis. Acute alcoholic hepatitis ,TB is very high, on oral Prednisone , avoid heptotoxic medication and hypotension. Metabolic acidosis due to lactic acidosis due to sepsis and liver failure, acidosis is resolved. Electrolyte abnormality, getting replacement, we will monitor electrolyte. Prognosis is guarded Management plan was discussed in detail with patient. Education was provided. Need reinforcement.
--- NOTE | 2018-07-27 05:22 | CP.PCM.PN ---
<Jem Abbott - Last Filed: 07/27/18 14:51> Subjective - Date & Time of Evaluation Date of Evaluation: 07/27/18 Time of Evaluation: 05:00 - Subjective Subjective: Pt seen and examined in ICU. Pt sleeping upon arrival. Pt no new complaints at this time. Objective - Vital Signs/Intake and Output Vital Signs (last 24 hours): Temp Pulse Resp BP Pulse Ox 97.8 F 85 18 125/87 97 07/26/18 12:00 07/26/18 22:00 07/26/18 17:59 07/26/18 18:00 07/26/18 07:00 Intake and Output: 07/26/18 07/27/18 18:59 06:59 Intake Total 2130 Output Total 500 Balance 1630 - Medications Medications: Current Medications Albuterol/Ipratropium (Duoneb 3 Mg/0.5 Mg (3 Ml) Ud) 3 ml IH [id number] PRN PRN Reason: Wheezing Famotidine (Pepcid) 40 mg PO HS [facility] Last Admin: 07/26/18 22:06 Dose: 40 mg Folic Acid (Folic Acid) 1 mg PO DAILY [facility] Last Admin: 07/26/18 09:29 Dose: 1 mg Meropenem (Merrem Iv 1 Gm Premix) 50 mls @ 100 mls/hr IVPB Q8 [facility] PRN Reason: Protocol Stop: 07/31/18 14:01 Last Admin: 07/26/18 21:49 Dose: 100 mls/hr Sodium Chloride (Sodium Chloride 0.9%) 1,000 mls @ 100 mls/hr IV .Q10H [facility] Last Admin: 07/26/18 22:08 Dose: 100 mls/hr Lactulose (Enulose) 20 gm PO TID [facility] Last Admin: 07/26/18 17:20 Dose: 20 gm Lorazepam (Ativan) 1 mg IVP Q2H PRN; Protocol PRN Reason: Symptoms of alcohol withdrawl Last Admin: 07/23/18 20:52 Dose: 1 mg Lorazepam (Ativan) 1 mg IVP Q4H [facility] PRN Reason: Protocol Last Admin: 07/27/18 04:21 Dose: 1 mg Multivitamins (Thera Tab) 1 tab PO 0800 [facility] Last Admin: 07/26/18 07:57 Dose: 1 tab Nicotine (Nicoderm Cq) 1 patch TD DAILY [facility] Last Admin: 07/26/18 09:30 Dose: 1 patch Prednisolone (Prednisolone Oral Soln) 40 mg PO DAILY [facility] Last Admin: 07/26/18 12:24 Dose: 40 mg Thiamine HCl (Vitamin B1 Tab) 100 mg PO DAILY [facility] Last Admin: 07/26/18 09:30 Dose: 100 mg - Labs Labs: 07/26/18 05:00 07/26/18 05:00 PT 18.8 SECONDS (9.4-12.5) H 07/26/18 05:00 INR 1.62 07/26/18 05:00 APTT 31.9 Seconds (25.1-36.5) 07/26/18 05:00 - Constitutional Appears: No Acute Distress - Head Exam Head Exam: ATRAUMATIC, NORMOCEPHALIC - Eye Exam Eye Exam: EOMI, Scleral icterus - Respiratory Exam Respiratory Exam: Clear to Ausculation Bilateral, NORMAL BREATHING PATTERN - Cardiovascular Exam Cardiovascular Exam: RRR. absent: JVD - GI/Abdominal Exam GI & Abdominal Exam: Soft, Normal Bowel Sounds - Neurological Exam Neurological Exam: Awake - Skin Additional comments: jaundice Assessment and Plan - Assessment and Plan (Free Text) Assessment: Pt is a 48 yo male with a PMH of alcoholism, pancreatic lesion, who was brought in by ambulance after an episode of LOC possible head trauma. Plan: Urosepsis - WBC 14.5, improving - discontinue IVF - continue ceftriaxone 2gm daily - repeat Blood cultures showing no growth after 48 hours - ID following - Hospice/ palliative care consulted Liver Failure - AST 309, ALT 84 - prednisone 40 PO daily - Lactulose 20 grams PO TID - Thiamine, folate, multivitamin - avoid hepatotoxic drugs Alcohol Withdrawal - Improving - CIWA score 13 - continue CIWA protocol - Ativan [facility] and PRN - continue Seizure precautions - continue fall precautions Ppx - SCD Pt seen, examined, and assessment/ plan discussed with Dr Hare. Jem Abbott PGY1 Internal Medicine Resident <Priyank Hare - Last Filed: 07/27/18 15:17> Objective - Vital Signs/Intake and Output Vital Signs (last 24 hours): Temp Pulse Resp BP Pulse Ox 97.8 F 85 18 125/87 97 07/26/18 12:00 07/26/18 22:00 07/26/18 17:59 07/26/18 18:00 07/26/18 07:00 - Medications Medications: Current Medications Albuterol/Ipratropium (Duoneb 3 Mg/0.5 Mg (3 Ml) Ud) 3 ml IH [id number] PRN PRN Reason: Wheezing Famotidine (Pepcid) 40 mg PO HS [facility] Last Admin: 07/26/18 22:06 Dose: 40 mg Folic Acid (Folic Acid) 1 mg PO DAILY [facility] Last Admin: 07/27/18 10:55 Dose: 1 mg Ceftriaxone Sodium (Rocephin 2 Gm Ivpb) 2 gm in 100 mls @ 100 mls/hr IVPB DAILY [facility] PRN Reason: Protocol Last Admin: 07/27/18 10:55 Dose: 100 mls/hr Lactulose (Enulose) 20 gm PO TID [facility] Last Admin: 07/27/18 14:11 Dose: 20 gm Lorazepam (Ativan) 1 mg IVP Q2H PRN; Protocol PRN Reason: Symptoms of alcohol withdrawl Last Admin: 07/23/18 20:52 Dose: 1 mg Lorazepam (Ativan) 1 mg IVP Q4H [facility] PRN Reason: Protocol Last Admin: 07/27/18 08:00 Dose: Not Given Multivitamins (Thera Tab) 1 tab PO 0800 [facility] Last Admin: 07/27/18 08:35 Dose: 1 tab Nicotine (Nicoderm Cq) 1 patch TD DAILY [facility] Last Admin: 07/27/18 10:55 Dose: 1 patch Prednisolone (Prednisolone Oral Soln) 40 mg PO DAILY [facility] Last Admin: 07/27/18 11:36 Dose: 40 mg Thiamine HCl (Vitamin B1 Tab) 100 mg PO DAILY [facility] Last Admin: 07/27/18 10:55 Dose: 100 mg - Labs Labs: 07/27/18 05:00 07/27/18 05:00 PT 20.4 SECONDS (9.4-12.5) H 07/27/18 05:00 INR 1.75 07/27/18 05:00 APTT 31.6 Seconds (25.1-36.5) 07/27/18 05:00 Attending/Attestation - Attestation I have personally seen and examined this patient.: Yes I have fully participated in the care of the patient.: Yes I have reviewed all pertinent clinical information, including history, physical exam and plan: Yes Notes (Text): 07/27/18 15:15 Medical record note made by the resident after discussion with my direction and input after the patient was personally seen and examined by me. I have reviewed the chart and agree that the record accurately reflects by personal performance of the history, physical exam, data review, and medical decision-making, in the course for the patient. I have also personally directed the plan of care. 48 yrs old male with PMH of Alcohol abuse abuse,alcoholic hepatitis, pancreatic tail lesion,was admitted with sepsis, worsening liver function, lactic acidosis, severe hypokalemia, hypophophatemia and Hypomagnasemia . Sepsis due Ecoli Batremia due to UTI. on IV Rocephin as per ID.Patient is afebrile.WBC is coming down.Echo was reviewed .There is no evidence of endocarditis.Repeat blood cultures are negative.Patient will need total 2 weeks of antibitis for gram negative bactremia. Acute alcoholic hepatitis , on oral Prednisone , avoid heptotoxic medication and hypotension. Metabolic acidosis due to lactic acidosis due to sepsis and liver failure, acidosis is resolved. Alcohol withdrawal on CIWA Electrolyte abnormality, getting replacement, we will monitor electrolyte. Prognosis is guarded Management plan was discussed in detail with patient. Education was provided. Need reinforcement.
[2018-07-27 06:14] LABS: INR 1.75; PARTIAL THROMBOPLASTIN TIME 31.6 Seconds (25.1-36.5); PROTHROMBIN TIME 20.4 SECONDS (9.4-12.5)
[2018-07-27 06:16] LABS: BASO # 0.01 K/mm3 (0.0-2.0); BASO % 0.1 % (0.0-3.0); GRAN # 12.85 (1.4-6.5); GRAN % 88.6 % (50.0-68.0); HEMOGLOBIN 10.3 g/dL (14.0-18.0); LYMPH # 0.8 (1.2-3.4); LYMPH % 5.7 % (22.0-35.0); MEAN CELL VOLUME 108.2 fl (80.0-105.0); MEAN CORPUSCULAR HEMOGLOBIN 38.4 pg (25.0-35.0); MEAN CORPUSCULAR HGB CONC 35.5 g/dl (31.0-37.0); MEAN PLATELET VOLUME 11.1 fl (7.0-11.0); MONO # 0.8 (0.1-0.6); MONO % 5.6 % (1.0-6.0); RBC 2.68 10^6/uL (3.5-6.1); WHITE BLOOD COUNT 14.5 10^3/ul (4.5-11.0)
[2018-07-27 06:45] LABS: ALB/GLOB RATIO 0.6 (1.1-1.8); ALBUMIN 2.7 g/dL (3.0-4.8); ALT/SGPT 84 U/L (7-56); AST/SGOT 309 U/L (17-59); BLOOD UREA NITROGEN 13 mg/dL (7-21); CALCIUM 8.3 mg/dL (8.4-10.5); GFR NON-AFRICAN AMERICAN > 60
[2018-07-27] MEDS: Multivitamin Therapeutic Tab PO SCH (08:35)
--- NOTE | 2018-07-27 09:09 | CP.PCM.PN ---
Subjective - Date & Time of Evaluation Date of Evaluation: 07/27/18 Time of Evaluation: 08:50 - Subjective Subjective: Comfortable in bed, ate breakfast well but complaining of mild back pain, leg pain. No fevers overnight. Objective - Vital Signs/Intake and Output Vital Signs (last 24 hours): Temp Pulse Resp BP Pulse Ox 98.2 F 95 H 13 128/80 97 07/26/18 06:00 07/26/18 10:01 07/26/18 08:59 07/26/18 10:02 07/26/18 07:00 Intake and Output: 07/26/18 07/26/18 06:59 18:59 Intake Total 1200 Output Total 800 Balance 400 - Medications Medications: Current Medications Albuterol/Ipratropium (Duoneb 3 Mg/0.5 Mg (3 Ml) Ud) 3 ml IH [id number] PRN PRN Reason: Wheezing Famotidine (Pepcid) 40 mg PO HS [facility] Last Admin: 07/25/18 21:15 Dose: 40 mg Folic Acid (Folic Acid) 1 mg PO DAILY [facility] Last Admin: 07/26/18 09:29 Dose: 1 mg Meropenem (Merrem Iv 1 Gm Premix) 50 mls @ 100 mls/hr IVPB Q8 [facility] PRN Reason: Protocol Stop: 07/31/18 14:01 Last Admin: 07/26/18 05:31 Dose: 100 mls/hr Sodium Chloride (Sodium Chloride 0.9%) 1,000 mls @ 100 mls/hr IV .Q10H [facility] Last Admin: 07/26/18 06:34 Dose: 100 mls/hr Lactulose (Enulose) 20 gm PO TID [facility] Last Admin: 07/26/18 09:29 Dose: 20 gm Lorazepam (Ativan) 1 mg IVP Q2H PRN; Protocol PRN Reason: Symptoms of alcohol withdrawl Last Admin: 07/23/18 20:52 Dose: 1 mg Lorazepam (Ativan) 1 mg IVP Q4H [facility] PRN Reason: Protocol Last Admin: 07/26/18 07:57 Dose: 1 mg Multivitamins (Thera Tab) 1 tab PO 0800 [facility] Last Admin: 07/26/18 07:57 Dose: 1 tab Nicotine (Nicoderm Cq) 1 patch TD DAILY [facility] Last Admin: 07/26/18 09:30 Dose: 1 patch Potassium Phos/Sodium Phos (Neutra-Phos) 1 pkt PO BID [facility] Stop: 07/26/18 22:16 Last Admin: 07/26/18 09:30 Dose: 1 pkt Prednisolone (Prednisolone Oral Soln) 40 mg PO DAILY [facility] Last Admin: 07/25/18 09:46 Dose: 40 mg Thiamine HCl (Vitamin B1 Tab) 100 mg PO DAILY [facility] Last Admin: 07/26/18 09:30 Dose: 100 mg - Labs Labs: 07/26/18 05:00 07/26/18 05:00 PT 18.8 SECONDS (9.4-12.5) H 07/26/18 05:00 INR 1.62 07/26/18 05:00 APTT 31.9 Seconds (25.1-36.5) 07/26/18 05:00 - Constitutional Appears: No Acute Distress, Chronically Ill - Head Exam Head Exam: NORMAL INSPECTION - ENT Exam ENT Exam: Mucous Membranes Moist - Respiratory Exam Respiratory Exam: Decreased Breath Sounds - Cardiovascular Exam Cardiovascular Exam: +S1, +S2 - GI/Abdominal Exam GI & Abdominal Exam: Soft. absent: Tenderness - Back Exam Back Exam: absent: CVA tenderness (L), CVA tenderness (R), paraspinal tenderness , tenderness, vertebral tenderness Assessment and Plan - Assessment and Plan (Free Text) Plan: Assessment severe sepsis S/P acute renal failure due to E. coli bacteremia, probably due to UTI R/O intra-abdominal infection in this patient with acute alcoholic hepatitis acute renal failure chronic ethanol abuse pancreatic tail lesion Plan continue Rocephin sincee the blood and urine cx are showing watson-sensitive E. coli; repeat blood cx are negative and 2D echo is negative for vegetations - plan for 2 weeks of antibiotics follow up plans of GI for the alcoholic hepatitis and pancreatic tail lesion ( patient started on systemic steroids); reviewed ultrasound of the abdomen showing non-specific pericholecystic fluid - will follow up further GI recommendations will continue to monitor clinically HIV test is non-reactive
--- NOTE | 2018-07-27 09:50 | PN ---
DATE: 07/27/2018 The consult notes of Mr. Mccormick was reviewed. Also, discussed this case with the nurses in the unit as well as house staff. Currently, there has been no major significant change in the patient's clinical status. Review of the patient's laboratory data indicate fluctuation in the white count. His hemoglobin and hematocrit have been relatively stable, most recent .05/14. His platelet count is 98. His INR last measured 1.62. His last laboratory data indicate a bilirubin of 21.9, which is still up . AST ALT ratio 265/74 with an alk phos of 211, which has not changed too much in the past several days. His electrolytes are noncontributory except for mild hypokalemia. There does not appear to anything acute going on with the patient at the current time point. The patient will be seen again by multiple consultants as well as house staff. If there is any ongoing issues, which require GI input, please feel free to re-consult but I will sign out the case today. Quinton Sawant DO, PhD KAMILAH
[2018-07-27] MEDS: cefTRIAXone 2 GM IN NS 2 GM/100 ML BAG IVPB SCH (10:55)
[2018-07-27] MEDS: PrednisoLONE 15 mg/5 ml Oral Syrup (240 ml) PO SCH (11:36)
--- NOTE | 2018-07-28 05:26 | CP.PCM.PN ---
<Jem Abbott - Last Filed: 07/28/18 19:45> Subjective - Date & Time of Evaluation Date of Evaluation: 07/28/18 Time of Evaluation: 05:20 - Subjective Subjective: Pt seen and examined this morning in the ICU. Pt has no new complaints at this time. Objective - Vital Signs/Intake and Output Vital Signs (last 24 hours): Temp Pulse Resp BP Pulse Ox 98.6 F 79 15 83/42 L 97 07/27/18 20:00 07/27/18 22:59 07/27/18 22:59 07/27/18 23:00 07/26/18 07:00 Intake and Output: 07/27/18 07/28/18 18:59 06:59 Intake Total 1300 Balance 1300 - Medications Medications: Current Medications Albuterol/Ipratropium (Duoneb 3 Mg/0.5 Mg (3 Ml) Ud) 3 ml IH [id number] PRN PRN Reason: Wheezing Famotidine (Pepcid) 40 mg PO HS [facility] Last Admin: 07/27/18 21:11 Dose: 40 mg Folic Acid (Folic Acid) 1 mg PO DAILY [facility] Last Admin: 07/27/18 10:55 Dose: 1 mg Ceftriaxone Sodium (Rocephin 2 Gm Ivpb) 2 gm in 100 mls @ 100 mls/hr IVPB DAILY [facility] PRN Reason: Protocol Last Admin: 07/27/18 10:55 Dose: 100 mls/hr Lactulose (Enulose) 20 gm PO TID [facility] Last Admin: 07/27/18 17:25 Dose: 20 gm Lorazepam (Ativan) 1 mg IVP Q2H PRN; Protocol PRN Reason: Symptoms of alcohol withdrawl Last Admin: 07/23/18 20:52 Dose: 1 mg Lorazepam (Ativan) 1 mg IVP Q4H [facility] PRN Reason: Protocol Last Admin: 07/28/18 04:03 Dose: 1 mg Multivitamins (Thera Tab) 1 tab PO 0800 [facility] Last Admin: 07/27/18 08:35 Dose: 1 tab Nicotine (Nicoderm Cq) 1 patch TD DAILY [facility] Last Admin: 07/27/18 10:55 Dose: 1 patch Prednisolone (Prednisolone Oral Soln) 40 mg PO DAILY [facility] Last Admin: 07/27/18 11:36 Dose: 40 mg Thiamine HCl (Vitamin B1 Tab) 100 mg PO DAILY [facility] Last Admin: 07/27/18 10:55 Dose: 100 mg - Labs Labs: 07/27/18 05:00 07/27/18 05:00 PT 20.4 SECONDS (9.4-12.5) H 07/27/18 05:00 INR 1.75 07/27/18 05:00 APTT 31.6 Seconds (25.1-36.5) 07/27/18 05:00 - Constitutional Appears: No Acute Distress - Head Exam Head Exam: ATRAUMATIC - Respiratory Exam Respiratory Exam: Clear to Ausculation Bilateral, NORMAL BREATHING PATTERN. absent: Wheezes, Respiratory Distress, Stridor - Cardiovascular Exam Cardiovascular Exam: RRR, +S1, +S2 - GI/Abdominal Exam GI & Abdominal Exam: Soft, Tenderness - Extremities Exam Extremities Exam: absent: Pedal Edema - Skin Additional comments: jaundice Assessment and Plan - Assessment and Plan (Free Text) Assessment: Pt is a 48 yo male with a PMH of alcoholism, pancreatic lesion, alcoholic hepatitis, who was brought in by ambulance after an episode of LOC possible head trauma, who was admitted for hypokalemia, hypophosphatemia, hypomagnasemia , and worsening liver function. Plan: Urosepsis - WBC 13, improving - continue ceftriaxone 2gm daily - ID: plans for 2 weeks of antibiotics - Hospice/ palliative care consulted Hematochezia - single episode today, witnessed by nurse - ordered stat CBC Hgb 10.9 stable - continue to monitor Liver Failure - GGI785, ALT90 - prednisone 40 PO daily - Lactulose 20 grams PO TID - Thiamine, folate, multivitamin - avoid hepatotoxic drugs - Child-Alcantar 10 - Maddrey Score 61.5, candidate for glucocorticoid therapy Alcohol Withdrawal - Improving - CIWA score 8 - continue CIWA protocol - Ativan [facility] 1mg Q4 - Atovan PRN 1mg Q2 - continue Seizure precautions - continue fall precautions, moderate Ppx - SCD <Codie Monsivais - Last Filed: 07/29/18 08:07> Objective - Vital Signs/Intake and Output Vital Signs (last 24 hours): Temp Pulse Resp BP Pulse Ox 98 F 79 18 119/80 98 07/28/18 16:56 07/29/18 06:00 07/28/18 16:56 07/28/18 16:56 07/28/18 16:56 - Medications Medications: Current Medications Albuterol/Ipratropium (Duoneb 3 Mg/0.5 Mg (3 Ml) Ud) 3 ml IH [id number] PRN PRN Reason: Wheezing Famotidine (Pepcid) 40 mg PO HS [facility] Last Admin: 07/28/18 21:33 Dose: 40 mg Folic Acid (Folic Acid) 1 mg PO DAILY [facility] Last Admin: 07/28/18 09:02 Dose: Not Given Ceftriaxone Sodium (Rocephin 2 Gm Ivpb) 2 gm in 100 mls @ 100 mls/hr IVPB DAILY [facility] PRN Reason: Protocol Last Admin: 07/28/18 09:31 Dose: 100 mls/hr Lactulose (Enulose) 20 gm PO TID [facility] Last Admin: 07/28/18 17:06 Dose: 20 gm Lorazepam (Ativan) 1 mg IVP Q2H PRN; Protocol PRN Reason: Symptoms of alcohol withdrawl Last Admin: 07/23/18 20:52 Dose: 1 mg Lorazepam (Ativan) 1 mg IVP Q4H [facility] PRN Reason: Protocol Last Admin: 07/29/18 04:13 Dose: 1 mg Multivitamins (Thera Tab) 1 tab PO 0800 [facility] Last Admin: 07/28/18 08:28 Dose: 1 tab Nicotine (Nicoderm Cq) 1 patch TD DAILY [facility] Last Admin: 07/28/18 09:02 Dose: Not Given Prednisolone (Prednisolone Oral Soln) 40 mg PO DAILY [facility] Last Admin: 07/28/18 09:35 Dose: 40 mg Thiamine HCl (Vitamin B1 Tab) 100 mg PO DAILY [facility] Last Admin: 07/28/18 09:02 Dose: Not Given - Labs Labs: 07/29/18 06:00 07/29/18 06:00 PT 21.3 SECONDS (9.4-12.5) H 07/28/18 07:15 INR 1.83 07/28/18 07:15 APTT 32.8 Seconds (25.1-36.5) 07/28/18 07:15 Attending/Attestation - Attestation I have personally seen and examined this patient.: Yes I have fully participated in the care of the patient.: Yes I have reviewed all pertinent clinical information, including history, physical exam and plan: Yes Notes (Text): 07/28/18 48 year old male with past medical history of alcohol abuse, panctreatic tail lesion and alcoholic hepatitis who presented with sepsis secondary to E coli bacteremia/UTI and liver failure. Repeat cultures were negative. Echocardiogram was negative for vegetations. Continue with iv antibiotics as per ID; will need 2 weeks of antibiotics. Patient is on po prednisone. GI is following. Will replete and repeat lytes. Patient was counselled on alcohol cessation. He is on ativan for withdrawal symptoms. Continue with multivitamin , folic acid and thiamine. PT evaluation is requested. Codie Monsivais MD Hospitalist.
[2018-07-28 07:34] LABS: BASO # 0.01 K/mm3 (0.0-2.0); BASO % 0.1 % (0.0-3.0); EOS % 0.2 % (1.5-5.0); GRAN # 11.98 (1.4-6.5); GRAN % 82.2 % (50.0-68.0); HEMOGLOBIN 11.2 g/dL (14.0-18.0); LYMPH # 1.1 (1.2-3.4); LYMPH % 7.2 % (22.0-35.0); MEAN CELL VOLUME 107.5 fl (80.0-105.0); MEAN CORPUSCULAR HGB CONC 35.3 g/dl (31.0-37.0); MEAN PLATELET VOLUME 11.3 fl (7.0-11.0); MONO # 1.5 (0.1-0.6); MONO % 10.3 % (1.0-6.0); RBC 2.95 10^6/uL (3.5-6.1); RED CELL DISTRIBUTION WIDTH 17.1 % (11.5-14.5); WHITE BLOOD COUNT 14.6 10^3/ul (4.5-11.0)
[2018-07-28 07:40] LABS: INR 1.83; PARTIAL THROMBOPLASTIN TIME 32.8 Seconds (25.1-36.5); PROTHROMBIN TIME 21.3 SECONDS (9.4-12.5)
[2018-07-28 07:44] LABS: ALB/GLOB RATIO 0.7 (1.1-1.8); ALBUMIN 2.9 g/dL (3.0-4.8); ALT/SGPT 95 U/L (7-56); AST/SGOT 328 U/L (17-59); BLOOD UREA NITROGEN 15 mg/dL (7-21); CALCIUM 8.4 mg/dL (8.4-10.5); GFR NON-AFRICAN AMERICAN > 60
[2018-07-28] MEDS: Multivitamin Therapeutic Tab PO SCH (08:28)
[2018-07-28] MEDS: cefTRIAXone 2 GM IN NS 2 GM/100 ML BAG IVPB SCH (09:31)
[2018-07-28] MEDS: PrednisoLONE 15 mg/5 ml Oral Syrup (240 ml) PO SCH (09:35)
[2018-07-28 12:36] LABS: HEMOGLOBIN 10.9 g/dL (14.0-18.0); MEAN CELL VOLUME 107.1 fl (80.0-105.0); MEAN CORPUSCULAR HEMOGLOBIN 38.5 pg (25.0-35.0); MEAN PLATELET VOLUME 10.7 fl (7.0-11.0); RBC 2.83 10^6/uL (3.5-6.1); RED CELL DISTRIBUTION WIDTH 17.2 % (11.5-14.5)
[2018-07-28] MEDS ORDERED: Magnesium Sulfate 2 gm/50 ml 2 GM/50 ML BAG IVPB ONE (14:00)
--- NOTE | 2018-07-28 19:23 | CP.PCM.PN ---
Subjective - Date & Time of Evaluation Date of Evaluation: 07/28/18 Time of Evaluation: 10:25 - Subjective Subjective: Comfortable, no fevers. Objective - Vital Signs/Intake and Output Vital Signs (last 24 hours): Temp Pulse Resp BP Pulse Ox 97.8 F 85 18 125/87 97 07/26/18 12:00 07/26/18 22:00 07/26/18 17:59 07/26/18 18:00 07/26/18 07:00 - Medications Medications: Current Medications Albuterol/Ipratropium (Duoneb 3 Mg/0.5 Mg (3 Ml) Ud) 3 ml IH [id number] PRN PRN Reason: Wheezing Famotidine (Pepcid) 40 mg PO HS [facility] Last Admin: 07/26/18 22:06 Dose: 40 mg Folic Acid (Folic Acid) 1 mg PO DAILY [facility] Last Admin: 07/26/18 09:29 Dose: 1 mg Ceftriaxone Sodium (Rocephin 2 Gm Ivpb) 2 gm in 100 mls @ 100 mls/hr IVPB DAILY [facility] PRN Reason: Protocol Lactulose (Enulose) 20 gm PO TID [facility] Last Admin: 07/26/18 17:20 Dose: 20 gm Lorazepam (Ativan) 1 mg IVP Q2H PRN; Protocol PRN Reason: Symptoms of alcohol withdrawl Last Admin: 07/23/18 20:52 Dose: 1 mg Lorazepam (Ativan) 1 mg IVP Q4H [facility] PRN Reason: Protocol Last Admin: 07/27/18 04:21 Dose: 1 mg Multivitamins (Thera Tab) 1 tab PO 0800 [facility] Last Admin: 07/27/18 08:35 Dose: 1 tab Nicotine (Nicoderm Cq) 1 patch TD DAILY [facility] Last Admin: 07/26/18 09:30 Dose: 1 patch Prednisolone (Prednisolone Oral Soln) 40 mg PO DAILY [facility] Last Admin: 07/26/18 12:24 Dose: 40 mg Thiamine HCl (Vitamin B1 Tab) 100 mg PO DAILY [facility] Last Admin: 07/26/18 09:30 Dose: 100 mg - Labs Labs: 07/27/18 05:00 07/27/18 05:00 PT 20.4 SECONDS (9.4-12.5) H 07/27/18 05:00 INR 1.75 07/27/18 05:00 APTT 31.6 Seconds (25.1-36.5) 07/27/18 05:00 - Constitutional Appears: Chronically Ill - Head Exam Head Exam: NORMAL INSPECTION - Eye Exam Eye Exam: Scleral icterus - Respiratory Exam Respiratory Exam: Decreased Breath Sounds - Cardiovascular Exam Cardiovascular Exam: +S1, +S2 - GI/Abdominal Exam GI & Abdominal Exam: Soft. absent: Tenderness Assessment and Plan - Assessment and Plan (Free Text) Plan: Assessment severe sepsis S/P acute renal failure due to E. coli bacteremia, probably due to UTI R/O intra-abdominal infection in this patient with severe acute alcoholic hepatitis acute renal failure chronic ethanol abuse pancreatic tail lesion Plan continue Rocephin sincee the blood and urine cx are showing watson-sensitive E. coli; repeat blood cx are negative and 2D echo is negative for vegetations - plan for 2 weeks of antibiotics (Day 6 today) follow up plans of GI for the alcoholic hepatitis and pancreatic tail lesion ( patient is on systemic steroids); reviewed ultrasound of the abdomen showing non -specific pericholecystic fluid - will follow up further GI recommendations will continue to monitor clinically HIV test is non-reactive overall prognosis is poor
[2018-07-29 06:44] LABS: BASO # 0.02 K/mm3 (0.0-2.0); BASO % 0.2 % (0.0-3.0); EOS # 0.1 (0.0-0.7); EOS % 1.1 % (1.5-5.0); GRAN # 9.46 (1.4-6.5); GRAN % 73.3 % (50.0-68.0); HEMOGLOBIN 11.2 g/dL (14.0-18.0); LYMPH # 1.2 (1.2-3.4); LYMPH % 9.4 % (22.0-35.0); MEAN CELL VOLUME 107.1 fl (80.0-105.0); MEAN CORPUSCULAR HEMOGLOBIN 38.1 pg (25.0-35.0); MEAN CORPUSCULAR HGB CONC 35.6 g/dl (31.0-37.0); MONO # 2.1 (0.1-0.6); PLATELET COUNT 134 10^3/uL (120.0-450.0); RBC 2.94 10^6/uL (3.5-6.1); RED CELL DISTRIBUTION WIDTH 17.5 % (11.5-14.5); WHITE BLOOD COUNT 12.9 10^3/ul (4.5-11.0)
[2018-07-29 07:09] LABS: ALB/GLOB RATIO 0.7 (1.1-1.8); ALBUMIN 2.9 g/dL (3.0-4.8); ALT/SGPT 95 U/L (7-56); AST/SGOT 278 U/L (17-59); BLOOD UREA NITROGEN 18 mg/dL (7-21); CALCIUM 8.5 mg/dL (8.4-10.5); GFR NON-AFRICAN AMERICAN > 60
[2018-07-29] MEDS: Multivitamin Therapeutic Tab PO SCH (08:09)
[2018-07-29 09:12] LABS: EOSINOPHIL 1 % (0.0-3.0); LYMPHOCYTE 7 % (22.0-35.0); MONOCYTE 15 % (1.0-6.0); MYELOCYTE 3 %; NEUTROPHIL 74 % (50.0-70.0); TARGET CELLS 1+
[2018-07-29 09:13] LABS: LARGE PLATELETS PRESENT
[2018-07-29] MEDS: cefTRIAXone 2 GM IN NS 2 GM/100 ML BAG IVPB SCH (10:12)
[2018-07-29] MEDS: Potassium Chloride 40 mEq/30 ml LIQ UD PO SCH ×2 (10:13→13:35)
--- NOTE | 2018-07-29 11:05 | CP.PCM.PN ---
Subjective - Date & Time of Evaluation Date of Evaluation: 07/29/18 Time of Evaluation: 11:03 - Subjective Subjective: Nephrology Consultation Note: Assessment: stable EMILIANO. Hypokalemia, Hypophosphatemia, hypomagnesemia: RESOLVED hyponatremia with low urine osmol but high urine Na: likely due to alcohol abuse /beer potomania: IMPROVED HAGMA likely alcoholic and lactic acidosis; RESOLVED Anemia ,abnormal LFT, alcohol abuse hyperbilirubunemia with thrombocytopenia and coagulopathy, GNR sepsis Plan ordered for KCL 40 meq 2 doses today and 20 bid starting tomorrow continue with thiamine supplementation anemia management as per primary team repeat urine Na/Osmol. continue with oral fluid restriction to 1200 ml/day. serum na low but stable in early 130s range Dose meds/antibiotics for normal GFR. Glycemic control. pt need lifestyle modifications, need to abstain from alcohol abuse. Further work up/management as per primary team Thanks for allowing me to participate in care of your patient. Please call if any Qs. had d/w team Dr Herbetrh Eckert Office: [phone] Reason for consult: hypokalemia, EMILIANO and hyponatremia source of info: EMR HPI: Pt is a 48 year old male with hx of alcohol abuse came with pain abdomen and found to have severe jaundice with electrolytes abnormalities and EMILIANO hence renal consulted. he feels sick at this time. denies CP/SB. had episode of vomitting and loose stool. admits to daily etoh and poor oral intake. denies urine complaints ROS: pt awake. denies CP/SOB. no urine complaints Physical Examination: General Appearance: comfortable, in no acute respiratory distress, better appearing Vitals reviewed and noted as below Head; Atraumatic, normocephalic ENT: no ulcers no thrush. Tongue is midline. Oropharynx: no rash or ulcers. EYES: Pupils are equal, round and reactive to light accommodation. Eye muscles and extraocular movement intact. Sclera is icteric. Neck; supple no lymphadenopathy, no thyromegaly or bruit Lungs: Normal respiratory rate/effort. Breath sounds bilateral clear b/l Heart: Normal rate. s1s2 normal. No rub or gallop. Extremities: no edema. No varicose veins Neurological: Patient is awake alert. No focal deficit. Strength bilateral appropriate and equal Skin: Warm and dry. Normal turgor. No rash. Palpitation: Normal elasticity for age. grossly lemon yellow color. few spider angioma on Rt upper chest Abdomen: Abdomen is soft/distended. Bowel sounds +. There is no abdominal tenderness, no guarding/rigidity ? hepatomegaly Psych: limited insight. flat affect MSK: no joint tenderness or swelling. Digits normal, no deformity. nails all big : kidney or bladder not palpable Labs/imaging reviewed. Past medical history, past surgical history, family history, social history, allergy reviewed and noted as below Family hx: no hx of CKD. Rest non-contributory Objective - Vital Signs/Intake and Output Vital Signs (last 24 hours): Temp Pulse Resp BP Pulse Ox 98.1 F 83 20 102/65 95 07/29/18 08:09 07/29/18 08:09 07/29/18 08:09 07/29/18 08:09 07/29/18 08:09 - Medications Medications: Current Medications Albuterol/Ipratropium (Duoneb 3 Mg/0.5 Mg (3 Ml) Ud) 3 ml IH [id number] PRN PRN Reason: Wheezing Famotidine (Pepcid) 40 mg PO HS [facility] Last Admin: 07/28/18 21:33 Dose: 40 mg Folic Acid (Folic Acid) 1 mg PO DAILY [facility] Last Admin: 07/29/18 10:13 Dose: 1 mg Ceftriaxone Sodium (Rocephin 2 Gm Ivpb) 2 gm in 100 mls @ 100 mls/hr IVPB DAILY [facility] PRN Reason: Protocol Last Admin: 07/29/18 10:12 Dose: 100 mls/hr Lactulose (Enulose) 20 gm PO TID [facility] Last Admin: 07/29/18 10:13 Dose: 20 gm Lorazepam (Ativan) 1 mg IVP Q2H PRN; Protocol PRN Reason: Symptoms of alcohol withdrawl Last Admin: 07/23/18 20:52 Dose: 1 mg Lorazepam (Ativan) 1 mg IVP Q4H [facility] PRN Reason: Protocol Last Admin: 07/29/18 08:08 Dose: 1 mg Multivitamins (Thera Tab) 1 tab PO 0800 [facility] Last Admin: 07/29/18 08:09 Dose: 1 tab Nicotine (Nicoderm Cq) 1 patch TD DAILY [facility] Last Admin: 07/29/18 10:13 Dose: 1 patch Potassium Chloride (Potassium Chloride Oral Soln) 40 meq PO Q6 [facility] Stop: 07/29/18 12:01 Last Admin: 07/29/18 10:13 Dose: 40 meq Potassium Chloride (K-Dur 20 Meq Er Tab) 20 meq PO BID [facility] Stop: 08/02/18 10:01 Prednisolone (Prednisolone Oral Soln) 40 mg PO DAILY [facility] Last Admin: 07/28/18 09:35 Dose: 40 mg Thiamine HCl (Vitamin B1 Tab) 100 mg PO DAILY [facility] Last Admin: 07/29/18 10:13 Dose: 100 mg - Labs Labs: 07/29/18 06:00 07/29/18 06:00 PT 21.3 SECONDS (9.4-12.5) H 07/28/18 07:15 INR 1.83 07/28/18 07:15 APTT 32.8 Seconds (25.1-36.5) 07/28/18 07:15
[2018-07-29] MEDS: PrednisoLONE 15 mg/5 ml Oral Syrup (240 ml) PO SCH (11:25)
--- NOTE | 2018-07-29 19:50 | CP.PCM.PN ---
<Jem Abbott - Last Filed: 07/29/18 20:01> Subjective - Date & Time of Evaluation Date of Evaluation: 07/29/18 Time of Evaluation: 06:00 - Subjective Subjective: Pt seen and examined this morning. Pt denies bloody bowel movements at this time. Objective - Vital Signs/Intake and Output Vital Signs (last 24 hours): Temp Pulse Resp BP Pulse Ox 98.1 F 81 20 102/65 95 07/29/18 08:09 07/29/18 18:00 07/29/18 08:09 07/29/18 08:09 07/29/18 08:09 Intake and Output: 07/29/18 07/30/18 18:59 06:59 Intake Total 1140 Balance 1140 - Medications Medications: Current Medications Albuterol/Ipratropium (Duoneb 3 Mg/0.5 Mg (3 Ml) Ud) 3 ml IH [id number] PRN PRN Reason: Wheezing Famotidine (Pepcid) 40 mg PO HS [facility] Last Admin: 07/28/18 21:33 Dose: 40 mg Folic Acid (Folic Acid) 1 mg PO DAILY [facility] Last Admin: 07/29/18 10:13 Dose: 1 mg Ceftriaxone Sodium (Rocephin 2 Gm Ivpb) 2 gm in 100 mls @ 100 mls/hr IVPB DAILY [facility] PRN Reason: Protocol Last Admin: 07/29/18 10:12 Dose: 100 mls/hr Lactulose (Enulose) 20 gm PO TID [facility] Last Admin: 07/29/18 17:16 Dose: 20 gm Lorazepam (Ativan) 1 mg IVP Q2H PRN; Protocol PRN Reason: Symptoms of alcohol withdrawl Last Admin: 07/23/18 20:52 Dose: 1 mg Lorazepam (Ativan) 0.5 mg IVP Q4H [facility] PRN Reason: Protocol Last Admin: 07/29/18 17:15 Dose: 0.5 mg Multivitamins (Thera Tab) 1 tab PO 0800 [facility] Last Admin: 07/29/18 08:09 Dose: 1 tab Nicotine (Nicoderm Cq) 1 patch TD DAILY [facility] Last Admin: 07/29/18 10:13 Dose: 1 patch Potassium Chloride (K-Dur 20 Meq Er Tab) 20 meq PO BID [facility] Stop: 08/02/18 10:01 Prednisolone (Prednisolone Oral Soln) 40 mg PO DAILY [facility] Last Admin: 07/29/18 11:25 Dose: 40 mg Thiamine HCl (Vitamin B1 Tab) 100 mg PO DAILY [facility] Last Admin: 07/29/18 10:13 Dose: 100 mg - Labs Labs: 07/29/18 06:00 07/29/18 06:00 PT 21.3 SECONDS (9.4-12.5) H 07/28/18 07:15 INR 1.83 07/28/18 07:15 APTT 32.8 Seconds (25.1-36.5) 07/28/18 07:15 - Constitutional Appears: No Acute Distress - Head Exam Head Exam: ATRAUMATIC, NORMOCEPHALIC - Respiratory Exam Respiratory Exam: Clear to Ausculation Bilateral, NORMAL BREATHING PATTERN - Cardiovascular Exam Cardiovascular Exam: RRR, +S1, +S2 - GI/Abdominal Exam GI & Abdominal Exam: Soft. absent: Tenderness - Extremities Exam Extremities Exam: absent: Calf Tenderness, Pedal Edema - Skin Additional comments: jaundiced Assessment and Plan - Assessment and Plan (Free Text) Assessment: Pt is a 48 yo male with a PMH of alcoholism, pancreatic lesion, alcoholic hepatitis, who was brought in by ambulance after an episode of LOC possible head trauma, who was admitted for hypokalemia, hypophosphatemia, hypomagnasemia , and worsening liver function. Plan: Urosepsis - WBC 12.9, improving - continue ceftriaxone 2gm daily - ID: plans for 2 weeks of antibiotics - Hospice/ palliative care consulted Liver Failure - PMA399, ALT90 - ammonia 56 - prednisone 40 PO daily - Lactulose 20 grams PO TID -nursing communication order to monitor the number of bowel movements pt has, to titrate lactulose dosage - Thiamine - folate - multivitamin - avoid hepatotoxic drugs - Child-Alcantar 10 - Maddrey Score 61.5, candidate for glucocorticoid therapy Alcohol Withdrawal - Improving - CIWA score 1 - continue CIWA protocol - Ativan [facility] 0.5mg Q4 - Atovan PRN 1mg Q2 - continue Seizure precautions - continue fall precautions, moderate Ppx - SCD Pt seen, examined, assessment, plan discussed with Dr Monsivais. Jem Abbott PGY1 <Codie Monsivais - Last Filed: 07/30/18 07:28> Objective - Vital Signs/Intake and Output Vital Signs (last 24 hours): Temp Pulse Resp BP Pulse Ox 98.2 F 76 16 91/52 L 96 07/29/18 23:56 07/30/18 05:52 07/29/18 23:56 07/29/18 23:56 07/29/18 23:56 Intake and Output: 07/30/18 07/30/18 06:59 18:59 Intake Total 240 Output Total 750 Balance -510 - Medications Medications: Current Medications Albuterol/Ipratropium (Duoneb 3 Mg/0.5 Mg (3 Ml) Ud) 3 ml IH [id number] PRN PRN Reason: Wheezing Famotidine (Pepcid) 40 mg PO HS [facility] Last Admin: 07/29/18 21:10 Dose: 40 mg Folic Acid (Folic Acid) 1 mg PO DAILY [facility] Last Admin: 07/29/18 10:13 Dose: 1 mg Ceftriaxone Sodium (Rocephin 2 Gm Ivpb) 2 gm in 100 mls @ 100 mls/hr IVPB DAILY [facility] PRN Reason: Protocol Last Admin: 07/29/18 10:12 Dose: 100 mls/hr Lactulose (Enulose) 20 gm PO TID [facility] Last Admin: 07/29/18 17:16 Dose: 20 gm Lorazepam (Ativan) 1 mg IVP Q2H PRN; Protocol PRN Reason: Symptoms of alcohol withdrawl Last Admin: 07/23/18 20:52 Dose: 1 mg Lorazepam (Ativan) 0.5 mg IVP Q4H [facility] PRN Reason: Protocol Last Admin: 07/30/18 04:10 Dose: Not Given Multivitamins (Thera Tab) 1 tab PO 0800 [facility] Last Admin: 07/29/18 08:09 Dose: 1 tab Nicotine (Nicoderm Cq) 1 patch TD DAILY [facility] Last Admin: 07/29/18 10:13 Dose: 1 patch Potassium Chloride (K-Dur 20 Meq Er Tab) 20 meq PO BID [facility] Stop: 08/02/18 10:01 Prednisolone (Prednisolone Oral Soln) 40 mg PO DAILY [facility] Last Admin: 07/29/18 11:25 Dose: 40 mg Thiamine HCl (Vitamin B1 Tab) 100 mg PO DAILY [facility] Last Admin: 07/29/18 10:13 Dose: 100 mg - Labs Labs: 07/30/18 05:40 07/30/18 05:40 PT 21.3 SECONDS (9.4-12.5) H 07/28/18 07:15 INR 1.83 07/28/18 07:15 APTT 32.8 Seconds (25.1-36.5) 07/28/18 07:15 Attending/Attestation - Attestation I have personally seen and examined this patient.: Yes I have fully participated in the care of the patient.: Yes I have reviewed all pertinent clinical information, including history, physical exam and plan: Yes Notes (Text): 07/29/18 48 year old male with past medical history of alcohol abuse, pancreatic tail lesion and alcoholic hepatitis who presented with sepsis secondary to E coli bacteremia/UTI and liver failure. Repeat cultures were negative. Echocardiogram was negative for vegetations. Continue with iv antibiotics as per ID; will need 2 weeks of antibiotics. Patient is on po prednisone. LFTs are elevated but stable. GI is following. Will replete and repeat lytes ( potassium). Patient was counselled on alcohol cessation. He is on tapering ativan for withdrawal symptoms. Continue with multivitamin, folic acid and thiamine. PT evaluation was appreciated. Codie Monsivais MD Hospitalist.
[2018-07-29 21:43] LABS: OSMOLALITY,URINE 577 mosm/kg (300-1000)
--- NOTE | 2018-07-29 22:41 | PN ---
DATE: 07/29/2018 SUBJECTIVE: The patient is seen earlier today in room 363, bed 2. No fevers and no chills and uneventful night. PHYSICAL EXAMINATION: VITAL SIGNS: Temperature is 98, blood pressure is 102/60, respiratory rate of 18. HEENT: Unremarkable. NECK: Supple. LUNGS: Have decreased breath sounds. HEART: Normal S1 and S2. ABDOMEN: Soft, nontender. LABORATORY EXAMINATION: Reveals the CBC is with elevated white count. The patient is also on prednisolone, ceftriaxone and microbiology reveals E. coli in the blood, E. Coli in the urine and repeat blood cultures are negative. Dr. Eckert's note is reviewed. ASSESSMENT AND PLAN: A 48-year-old with severe sepsis status post acute renal failure due to Escherichia coli bacteremia secondary to urine as the source, intra-abdominal infection and patient with severe acute alcoholic hepatitis, on ceftriaxone. Repeat cultures negative. Today is day #7 of antibiotics and human immunodeficiency virus is negative. We will follow with you. Bill Mcnulty MD
[2018-07-30 06:22] LABS: BASO # 0.01 K/mm3 (0.0-2.0); BASO % 0.1 % (0.0-3.0); EOS % 0.4 % (1.5-5.0); GRAN # 6.02 (1.4-6.5); GRAN % 75.5 % (50.0-68.0); HEMOGLOBIN 10.6 g/dL (14.0-18.0); MEAN CELL VOLUME 106.8 fl (80.0-105.0); MEAN CORPUSCULAR HGB CONC 35.6 g/dl (31.0-37.0); MEAN PLATELET VOLUME 10.6 fl (7.0-11.0); RBC 2.79 10^6/uL (3.5-6.1); RED CELL DISTRIBUTION WIDTH 17.5 % (11.5-14.5)
[2018-07-30 06:49] LABS: ALT/SGPT 93 U/L (7-56); AST/SGOT 225 U/L (17-59); BLOOD UREA NITROGEN 16 mg/dL (7-21); CALCIUM 8.1 mg/dL (8.4-10.5); GFR NON-AFRICAN AMERICAN > 60
[2018-07-30 06:56] LABS: ALB/GLOB RATIO 0.7 (1.1-1.8); ALBUMIN 2.9 g/dL (3.0-4.8)
[2018-07-30] MEDS: Multivitamin Therapeutic Tab PO SCH (08:09)
[2018-07-30] MEDS: cefTRIAXone 2 GM IN NS 2 GM/100 ML BAG IVPB SCH (09:46)
[2018-07-30] MEDS: Potassium Chloride 20 mEq ER Tab PO SCH ×2 (09:46→18:00)
[2018-07-30] MEDS: PrednisoLONE 15 mg/5 ml Oral Syrup (240 ml) PO SCH (10:53)
--- NOTE | 2018-07-30 13:35 | RAD ---
Date of service: 07/30/2018 HISTORY: SOB COMPARISON: 07/23/2018 FINDINGS: LUNGS: No active pulmonary disease. PLEURA: No significant pleural effusion identified, no pneumothorax apparent. CARDIOVASCULAR: Normal. OSSEOUS STRUCTURES: No significant abnormalities. VISUALIZED UPPER ABDOMEN: Normal. OTHER FINDINGS: None. IMPRESSION: No active disease.
--- NOTE | 2018-07-30 14:19 | CP.PCM.PN ---
Subjective - Date & Time of Evaluation Date of Evaluation: 07/30/18 Time of Evaluation: 14:18 - Subjective Subjective: Nephrology Consultation Note: Assessment: stable EMILIANO. Hypokalemia, Hypophosphatemia, hypomagnesemia: RESOLVED hyponatremia with low urine osmol but high urine Na: likely due to alcohol abuse /beer potomania: IMPROVED HAGMA likely alcoholic and lactic acidosis; RESOLVED Anemia ,abnormal LFT, alcohol abuse hyperbilirubunemia with thrombocytopenia and coagulopathy, GNR sepsis Plan ordered for KCL 20 bid starting today continue with thiamine supplementation anemia management as per primary team repeat urine Na/Osmol reviewed. continue with oral fluid restriction to 1000 ml/ day. not a candidate for samsca due to hepatic dysfunction Dose meds/antibiotics for normal GFR. Glycemic control. pt need lifestyle modifications, need to abstain from alcohol abuse. Further work up/management as per primary team Thanks for allowing me to participate in care of your patient. Please call if any Qs. had d/w team Dr Herberth Eckert Office: [phone] Reason for consult: hypokalemia, EMILIANO and hyponatremia source of info: EMR HPI: Pt is a 48 year old male with hx of alcohol abuse came with pain abdomen and found to have severe jaundice with electrolytes abnormalities and EMILIANO hence renal consulted. he feels sick at this time. denies CP/SB. had episode of vomitting and loose stool. admits to daily etoh and poor oral intake. denies urine complaints ROS: pt awake. denies CP/SOB. no urine complaints. has loose stool Physical Examination: General Appearance: comfortable, in no acute respiratory distress, better appearing Vitals reviewed and noted as below Head; Atraumatic, normocephalic ENT: no ulcers no thrush. Tongue is midline. Oropharynx: no rash or ulcers. EYES: Pupils are equal, round and reactive to light accommodation. Eye muscles and extraocular movement intact. Sclera is icteric. Neck; supple no lymphadenopathy, no thyromegaly or bruit Lungs: Normal respiratory rate/effort. Breath sounds bilateral clear b/l Heart: Normal rate. s1s2 normal. No rub or gallop. Extremities: no edema. No varicose veins Neurological: Patient is awake alert. No focal deficit. Strength bilateral appropriate and equal Skin: Warm and dry. Normal turgor. No rash. Palpitation: Normal elasticity for age. grossly lemon yellow color. few spider angioma on Rt upper chest Abdomen: Abdomen is soft/distended. Bowel sounds +. There is no abdominal tenderness, no guarding/rigidity ? hepatomegaly Psych: limited insight. flat affect MSK: no joint tenderness or swelling. Digits normal, no deformity. nails all big : kidney or bladder not palpable Labs/imaging reviewed. Past medical history, past surgical history, family history, social history, allergy reviewed and noted as below Family hx: no hx of CKD. Rest non-contributory Objective - Vital Signs/Intake and Output Vital Signs (last 24 hours): Temp Pulse Resp BP Pulse Ox 98.1 F 71 18 107/74 100 07/30/18 06:00 07/30/18 06:00 07/30/18 06:00 07/30/18 06:00 07/30/18 06:00 Intake and Output: 07/30/18 07/30/18 06:59 18:59 Intake Total 240 Output Total 750 Balance -510 - Medications Medications: Current Medications Albuterol/Ipratropium (Duoneb 3 Mg/0.5 Mg (3 Ml) Ud) 3 ml IH [id number] PRN PRN Reason: Wheezing Last Admin: 07/30/18 13:21 Dose: 3 ml Famotidine (Pepcid) 40 mg PO HS [facility] Last Admin: 07/29/18 21:10 Dose: 40 mg Folic Acid (Folic Acid) 1 mg PO DAILY [facility] Last Admin: 07/30/18 09:46 Dose: 1 mg Ceftriaxone Sodium (Rocephin 2 Gm Ivpb) 2 gm in 100 mls @ 100 mls/hr IVPB DAILY [facility] PRN Reason: Protocol Last Admin: 07/30/18 09:46 Dose: 100 mls/hr Lactulose (Enulose) 20 gm PO TID [facility] Last Admin: 07/30/18 14:11 Dose: 20 gm Lorazepam (Ativan) 1 mg IVP Q2H PRN; Protocol PRN Reason: Symptoms of alcohol withdrawl Last Admin: 07/23/18 20:52 Dose: 1 mg Lorazepam (Ativan) 0.5 mg IVP Q4H [facility] PRN Reason: Protocol Last Admin: 07/30/18 14:11 Dose: 0.5 mg Multivitamins (Thera Tab) 1 tab PO 0800 [facility] Last Admin: 07/30/18 08:09 Dose: 1 tab Nicotine (Nicoderm Cq) 1 patch TD DAILY [facility] Last Admin: 07/30/18 09:48 Dose: 1 patch Potassium Chloride (K-Dur 20 Meq Er Tab) 20 meq PO BID [facility] Stop: 08/02/18 10:01 Last Admin: 07/30/18 09:46 Dose: 20 meq Prednisolone (Prednisolone Oral Soln) 40 mg PO DAILY [facility] Last Admin: 07/30/18 10:53 Dose: 40 mg Thiamine HCl (Vitamin B1 Tab) 100 mg PO DAILY [facility] Last Admin: 07/30/18 09:46 Dose: 100 mg - Labs Labs: 07/30/18 05:40 07/30/18 05:40 PT 21.3 SECONDS (9.4-12.5) H 07/28/18 07:15 INR 1.83 07/28/18 07:15 APTT 32.8 Seconds (25.1-36.5) 07/28/18 07:15
--- NOTE | 2018-07-30 19:47 | CP.PCM.PN ---
Subjective - Date & Time of Evaluation Date of Evaluation: 07/30/18 Time of Evaluation: 10:45 - Subjective Subjective: Comfortable, afebrile. Objective - Vital Signs/Intake and Output Vital Signs (last 24 hours): Temp Pulse Resp BP Pulse Ox 98.1 F 71 18 107/74 100 07/30/18 06:00 07/30/18 06:00 07/30/18 06:00 07/30/18 06:00 07/30/18 06:00 Intake and Output: 07/30/18 07/30/18 06:59 18:59 Intake Total 240 Output Total 750 Balance -510 - Medications Medications: Current Medications Albuterol/Ipratropium (Duoneb 3 Mg/0.5 Mg (3 Ml) Ud) 3 ml IH [id number] PRN PRN Reason: Wheezing Famotidine (Pepcid) 40 mg PO HS [facility] Last Admin: 07/29/18 21:10 Dose: 40 mg Folic Acid (Folic Acid) 1 mg PO DAILY [facility] Last Admin: 07/30/18 09:46 Dose: 1 mg Ceftriaxone Sodium (Rocephin 2 Gm Ivpb) 2 gm in 100 mls @ 100 mls/hr IVPB DAILY [facility] PRN Reason: Protocol Last Admin: 07/30/18 09:46 Dose: 100 mls/hr Lactulose (Enulose) 20 gm PO TID [facility] Last Admin: 07/30/18 09:46 Dose: 20 gm Lorazepam (Ativan) 1 mg IVP Q2H PRN; Protocol PRN Reason: Symptoms of alcohol withdrawl Last Admin: 07/23/18 20:52 Dose: 1 mg Lorazepam (Ativan) 0.5 mg IVP Q4H [facility] PRN Reason: Protocol Last Admin: 07/30/18 08:07 Dose: 0.5 mg Multivitamins (Thera Tab) 1 tab PO 0800 [facility] Last Admin: 07/30/18 08:09 Dose: 1 tab Nicotine (Nicoderm Cq) 1 patch TD DAILY [facility] Last Admin: 07/30/18 09:48 Dose: 1 patch Potassium Chloride (K-Dur 20 Meq Er Tab) 20 meq PO BID [facility] Stop: 08/02/18 10:01 Last Admin: 07/30/18 09:46 Dose: 20 meq Prednisolone (Prednisolone Oral Soln) 40 mg PO DAILY [facility] Last Admin: 07/29/18 11:25 Dose: 40 mg Thiamine HCl (Vitamin B1 Tab) 100 mg PO DAILY [facility] Last Admin: 07/30/18 09:46 Dose: 100 mg - Labs Labs: 07/30/18 05:40 07/30/18 05:40 PT 21.3 SECONDS (9.4-12.5) H 07/28/18 07:15 INR 1.83 07/28/18 07:15 APTT 32.8 Seconds (25.1-36.5) 07/28/18 07:15 - Constitutional Appears: Chronically Ill - Head Exam Head Exam: NORMAL INSPECTION - Eye Exam Eye Exam: Scleral icterus - Respiratory Exam Respiratory Exam: Decreased Breath Sounds - Cardiovascular Exam Cardiovascular Exam: +S1, +S2 - GI/Abdominal Exam GI & Abdominal Exam: Soft. absent: Tenderness Assessment and Plan - Assessment and Plan (Free Text) Plan: Assessment severe sepsis S/P acute renal failure due to E. coli bacteremia, probably due to UTI R/O intra-abdominal infection in this patient with severe acute alcoholic hepatitis acute renal failure chronic ethanol abuse pancreatic tail lesion Plan continue Rocephin since the blood and urine cx are showing watson-sensitive E. coli ; repeat blood cx are negative and 2D echo is negative for vegetations - plan for 2 weeks of antibiotics (Day 8 today) continue systemic steroids for the alcoholic hepatitis will continue to monitor clinically HIV test is non-reactive overall prognosis is poor
--- NOTE | 2018-07-30 21:32 | CP.PCM.PN ---
<Jem Abbott - Last Filed: 07/30/18 21:50> Subjective - Date & Time of Evaluation Date of Evaluation: 07/30/18 Time of Evaluation: 07:00 - Subjective Subjective: Pt seen and examined this morning. Pt reports having several loose non bloody bowel movements. Pt reports some SOB Objective - Vital Signs/Intake and Output Vital Signs (last 24 hours): Temp Pulse Resp BP Pulse Ox 98.1 F 89 18 138/73 98 07/30/18 15:56 07/30/18 18:00 07/30/18 15:56 07/30/18 15:56 07/30/18 15:56 - Medications Medications: Current Medications Albuterol/Ipratropium (Duoneb 3 Mg/0.5 Mg (3 Ml) Ud) 3 ml IH [id number] PRN PRN Reason: Wheezing Last Admin: 07/30/18 13:21 Dose: 3 ml Famotidine (Pepcid) 40 mg PO HS [facility] Last Admin: 07/29/18 21:10 Dose: 40 mg Folic Acid (Folic Acid) 1 mg PO DAILY [facility] Last Admin: 07/30/18 09:46 Dose: 1 mg Ceftriaxone Sodium (Rocephin 2 Gm Ivpb) 2 gm in 100 mls @ 100 mls/hr IVPB DAILY [facility] PRN Reason: Protocol Last Admin: 07/30/18 09:46 Dose: 100 mls/hr Lactulose (Enulose) 20 gm PO TID [facility] Last Admin: 07/30/18 18:01 Dose: 20 gm Lorazepam (Ativan) 1 mg IVP Q2H PRN; Protocol PRN Reason: Symptoms of alcohol withdrawl Last Admin: 07/23/18 20:52 Dose: 1 mg Lorazepam (Ativan) 0.5 mg IVP Q4H [facility] PRN Reason: Protocol Last Admin: 07/30/18 17:59 Dose: 0.5 mg Multivitamins (Thera Tab) 1 tab PO 0800 [facility] Last Admin: 07/30/18 08:09 Dose: 1 tab Nicotine (Nicoderm Cq) 1 patch TD DAILY [facility] Last Admin: 07/30/18 09:48 Dose: 1 patch Potassium Chloride (K-Dur 20 Meq Er Tab) 20 meq PO BID [facility] Stop: 08/02/18 10:01 Last Admin: 07/30/18 18:00 Dose: 20 meq Prednisolone (Prednisolone Oral Soln) 40 mg PO DAILY [facility] Last Admin: 07/30/18 10:53 Dose: 40 mg Thiamine HCl (Vitamin B1 Tab) 100 mg PO DAILY [facility] Last Admin: 07/30/18 09:46 Dose: 100 mg - Labs Labs: 07/30/18 05:40 07/30/18 05:40 PT 21.3 SECONDS (9.4-12.5) H 07/28/18 07:15 INR 1.83 07/28/18 07:15 APTT 32.8 Seconds (25.1-36.5) 07/28/18 07:15 - Head Exam Head Exam: ATRAUMATIC, NORMOCEPHALIC - ENT Exam ENT Exam: Mucous Membranes Moist - Respiratory Exam Respiratory Exam: Clear to Ausculation Bilateral, NORMAL BREATHING PATTERN - Cardiovascular Exam Cardiovascular Exam: RRR - GI/Abdominal Exam GI & Abdominal Exam: Soft, Normal Bowel Sounds - Extremities Exam Extremities Exam: absent: Pedal Edema - Skin Additional comments: jaundiced Assessment and Plan - Assessment and Plan (Free Text) Assessment: Pt is a 48 yo male with a PMH of alcoholism, pancreatic lesion, alcoholic hepatitis, who was brought in by ambulance after an episode of LOC possible head trauma, who was admitted for hypokalemia, hypophosphatemia, hypomagnasemia , and worsening liver function. Plan: Urosepsis - Leukocytosis has resolved - continue ceftriaxone 2gm daily - ID: plans for 2 weeks of antibiotics - Hospice/ palliative care consulted - PT SOB - CXR - duoneb Liver Failure - KJB133, ALT90 - ammonia level ordered - prednisone 40 PO daily - Lactulose 20 grams PO TID -nursing communication order to monitor the number of bowel movements pt has, to titrate lactulose dosage - Thiamine 100mg PO daily - folate 1mg PO daily - multivitamin 1 tablet - avoid hepatotoxic drugs - Child-Alcantar 10 - Maddrey Score 61.5, candidate for glucocorticoid therapy - GI following Alcohol Withdrawal - Improving - CIWA score 1, continue protocol - Ativan [facility]CTOR 0.5mg q4h - Ativan PRN 1mg q2h - Seizure precautions, fall precautions, moderate Tobacco Dependence - nicotine patch Ppx - SCD - HHD Pt seen, examined, assessment, plan discussed with Dr Monsivais. Jem Abbott PGY1 Internal Medicine Resident <Codie Monsivais - Last Filed: 07/31/18 07:06> Objective - Vital Signs/Intake and Output Vital Signs (last 24 hours): Temp Pulse Resp BP Pulse Ox 98.1 F 68 18 138/73 98 07/30/18 15:56 07/31/18 06:00 07/30/18 15:56 07/30/18 15:56 07/30/18 15:56 Intake and Output: 07/31/18 07/31/18 06:59 18:59 Intake Total 720 Output Total 200 Balance 520 - Medications Medications: Current Medications Albuterol/Ipratropium (Duoneb 3 Mg/0.5 Mg (3 Ml) Ud) 3 ml IH [id number] PRN PRN Reason: Wheezing Last Admin: 07/30/18 13:21 Dose: 3 ml Famotidine (Pepcid) 40 mg PO HS [facility] Last Admin: 07/30/18 21:24 Dose: 40 mg Folic Acid (Folic Acid) 1 mg PO DAILY [facility] Last Admin: 07/30/18 09:46 Dose: 1 mg Ceftriaxone Sodium (Rocephin 2 Gm Ivpb) 2 gm in 100 mls @ 100 mls/hr IVPB DAILY [facility] PRN Reason: Protocol Last Admin: 07/30/18 09:46 Dose: 100 mls/hr Lactulose (Enulose) 20 gm PO TID [facility] Last Admin: 07/30/18 18:01 Dose: 20 gm Lorazepam (Ativan) 1 mg IVP Q2H PRN; Protocol PRN Reason: Symptoms of alcohol withdrawl Last Admin: 07/23/18 20:52 Dose: 1 mg Lorazepam (Ativan) 0.5 mg IVP Q4H [facility] PRN Reason: Protocol Last Admin: 07/31/18 04:32 Dose: 0.5 mg Multivitamins (Thera Tab) 1 tab PO 0800 [facility] Last Admin: 07/30/18 08:09 Dose: 1 tab Nicotine (Nicoderm Cq) 1 patch TD DAILY [facility] Last Admin: 07/30/18 09:48 Dose: 1 patch Potassium Chloride (K-Dur 20 Meq Er Tab) 20 meq PO BID [facility] Stop: 08/02/18 10:01 Last Admin: 07/30/18 18:00 Dose: 20 meq Prednisolone (Prednisolone Oral Soln) 40 mg PO DAILY [facility] Last Admin: 07/30/18 10:53 Dose: 40 mg Thiamine HCl (Vitamin B1 Tab) 100 mg PO DAILY [facility] Last Admin: 07/30/18 09:46 Dose: 100 mg - Labs Labs: 07/30/18 05:40 07/30/18 05:40 PT 21.3 SECONDS (9.4-12.5) H 07/28/18 07:15 INR 1.83 07/28/18 07:15 APTT 32.8 Seconds (25.1-36.5) 07/28/18 07:15 Attending/Attestation - Attestation I have personally seen and examined this patient.: Yes I have fully participated in the care of the patient.: Yes I have reviewed all pertinent clinical information, including history, physical exam and plan: Yes Notes (Text): 07/30/18 48 year old male with past medical history of alcohol abuse, pancreatic tail lesion and alcoholic hepatitis who presented with sepsis secondary to E coli bacteremia/UTI and liver failure. Repeat cultures were negative. Echocardiogram was negative for vegetations. Continue with iv antibiotics as per ID; will need 2 weeks of antibiotics. Patient is on po prednisone. LFTs are elevated but stable. GI is following. Patient was counselled on alcohol cessation. He is on tapering ativan for withdrawal symptoms. Continue with multivitamin, folic acid and thiamine. PT evaluation was appreciated. Continue with lactulose; titrate as per bowel movements. Codie Monsivais MD Hospitalist.
[2018-07-31 07:57] LABS: HEMOGLOBIN 10.3 g/dL (14.0-18.0); MEAN CELL VOLUME 107.8 fl (80.0-105.0); MEAN CORPUSCULAR HEMOGLOBIN 38.4 pg (25.0-35.0); MEAN CORPUSCULAR HGB CONC 35.6 g/dl (31.0-37.0); MEAN PLATELET VOLUME 11.1 fl (7.0-11.0); RBC 2.68 10^6/uL (3.5-6.1); RED CELL DISTRIBUTION WIDTH 17.5 % (11.5-14.5); WHITE BLOOD COUNT 11.6 10^3/ul (4.5-11.0)
[2018-07-31 08:05] LABS: ALT/SGPT 94 U/L (7-56); AST/SGOT 189 U/L (17-59); BLOOD UREA NITROGEN 17 mg/dL (7-21); CALCIUM 8.2 mg/dL (8.4-10.5); GFR NON-AFRICAN AMERICAN > 60
[2018-07-31 08:13] LABS: ALB/GLOB RATIO 0.7 (1.1-1.8); ALBUMIN 2.7 g/dL (3.0-4.8)
[2018-07-31] MEDS: Multivitamin Therapeutic Tab PO SCH (08:32)
[2018-07-31] MEDS: cefTRIAXone 2 GM IN NS 2 GM/100 ML BAG IVPB SCH (10:01)
[2018-07-31] MEDS: Potassium Chloride 20 mEq ER Tab PO SCH ×2 (10:02→17:21)
[2018-07-31] MEDS: PrednisoLONE 15 mg/5 ml Oral Syrup (240 ml) PO SCH (10:19)
--- NOTE | 2018-07-31 17:09 | CP.PCM.PN ---
Subjective - Date & Time of Evaluation Date of Evaluation: 07/31/18 Time of Evaluation: 17:09 - Subjective Subjective: Nephrology Consultation Note: Assessment: stable EMILIANO. Hypokalemia, Hypophosphatemia, hypomagnesemia: RESOLVED hyponatremia with low urine osmol but high urine Na: likely due to alcohol abuse /beer potomania: IMPROVED HAGMA likely alcoholic and lactic acidosis; RESOLVED Anemia ,abnormal LFT, alcohol abuse hyperbilirubunemia with thrombocytopenia and coagulopathy, GNR sepsis Plan ordered for KCL 20 bid continue with thiamine supplementation anemia management as per primary team repeat urine Na/Osmol reviewed. continue with oral fluid restriction to 1000 ml/ day. not a candidate for samsca due to hepatic dysfunction Dose meds/antibiotics for normal GFR. Glycemic control. pt need lifestyle modifications, need to abstain from alcohol abuse. Further work up/management as per primary team Thanks for allowing me to participate in care of your patient. Please call if any Qs. had d/w team Dr Herberth Eckert Office: [phone] Reason for consult: hypokalemia, EMILIANO and hyponatremia source of info: EMR HPI: Pt is a 48 year old male with hx of alcohol abuse came with pain abdomen and found to have severe jaundice with electrolytes abnormalities and EMILIANO hence renal consulted. he feels sick at this time. denies CP/SB. had episode of vomitting and loose stool. admits to daily etoh and poor oral intake. denies urine complaints ROS: pt awake. denies CP/SOB. no urine complaints. has loose stool Physical Examination: General Appearance: comfortable, in no acute respiratory distress, better appearing Vitals reviewed and noted as below Head; Atraumatic, normocephalic ENT: no ulcers no thrush. Tongue is midline. Oropharynx: no rash or ulcers. EYES: Pupils are equal, round and reactive to light accommodation. Eye muscles and extraocular movement intact. Sclera is icteric. Neck; supple no lymphadenopathy, no thyromegaly or bruit Lungs: Normal respiratory rate/effort. Breath sounds bilateral clear b/l Heart: Normal rate. s1s2 normal. No rub or gallop. Extremities: no edema. No varicose veins Neurological: Patient is awake alert. No focal deficit. Strength bilateral appropriate and equal Skin: Warm and dry. Normal turgor. No rash. Palpitation: Normal elasticity for age. grossly lemon yellow color. few spider angioma on Rt upper chest Abdomen: Abdomen is soft/distended. Bowel sounds +. There is no abdominal tenderness, no guarding/rigidity ? hepatomegaly Psych: limited insight. flat affect MSK: no joint tenderness or swelling. Digits normal, no deformity. nails all big : kidney or bladder not palpable Labs/imaging reviewed. Past medical history, past surgical history, family history, social history, allergy reviewed and noted as below Family hx: no hx of CKD. Rest non-contributory Objective - Vital Signs/Intake and Output Vital Signs (last 24 hours): Temp Pulse Resp BP Pulse Ox 98.2 F 72 20 131/82 100 07/31/18 08:15 07/31/18 14:00 07/31/18 08:15 07/31/18 08:15 07/31/18 08:15 Intake and Output: 07/31/18 07/31/18 06:59 18:59 Intake Total 720 Output Total 200 Balance 520 - Medications Medications: Current Medications Albuterol/Ipratropium (Duoneb 3 Mg/0.5 Mg (3 Ml) Ud) 3 ml IH [id number] PRN PRN Reason: Wheezing Last Admin: 07/30/18 13:21 Dose: 3 ml Famotidine (Pepcid) 40 mg PO HS [facility] Last Admin: 07/30/18 21:24 Dose: 40 mg Folic Acid (Folic Acid) 1 mg PO DAILY [facility] Last Admin: 07/31/18 10:01 Dose: 1 mg Ceftriaxone Sodium (Rocephin 2 Gm Ivpb) 2 gm in 100 mls @ 100 mls/hr IVPB DAILY [facility] PRN Reason: Protocol Last Admin: 07/31/18 10:01 Dose: 100 mls/hr Lactulose (Enulose) 20 gm PO BID [facility] Last Admin: 07/31/18 10:20 Dose: 20 gm Lorazepam (Ativan) 1 mg IVP Q2H PRN; Protocol PRN Reason: Symptoms of alcohol withdrawl Last Admin: 07/31/18 10:19 Dose: 1 mg Lorazepam (Ativan) 0.5 mg IVP Q4H [facility] PRN Reason: Protocol Last Admin: 07/31/18 13:51 Dose: 0.5 mg Multivitamins (Thera Tab) 1 tab PO 0800 [facility] Last Admin: 07/31/18 08:32 Dose: 1 tab Nicotine (Nicoderm Cq) 1 patch TD DAILY [facility] Last Admin: 07/31/18 10:01 Dose: 1 patch Potassium Chloride (K-Dur 20 Meq Er Tab) 20 meq PO BID [facility] Stop: 08/02/18 10:01 Last Admin: 07/31/18 10:02 Dose: 20 meq Prednisolone (Prednisolone Oral Soln) 40 mg PO DAILY [facility] Last Admin: 07/31/18 10:19 Dose: 40 mg Thiamine HCl (Vitamin B1 Tab) 100 mg PO DAILY [facility] Last Admin: 07/31/18 10:53 Dose: 100 mg - Labs Labs: 07/31/18 07:30 07/31/18 07:30 PT 21.3 SECONDS (9.4-12.5) H 07/28/18 07:15 INR 1.83 07/28/18 07:15 APTT 32.8 Seconds (25.1-36.5) 07/28/18 07:15
--- NOTE | 2018-07-31 20:59 | CP.PCM.PN ---
<Jem Abbott - Last Filed: 07/31/18 21:16> Subjective - Date & Time of Evaluation Date of Evaluation: 07/31/18 Time of Evaluation: 07:00 - Subjective Subjective: Pt seen and examined. Reports 2-4 stools per day. No new complaints. Objective - Vital Signs/Intake and Output Vital Signs (last 24 hours): Temp Pulse Resp BP Pulse Ox 98.6 F 77 18 99/54 L 99 07/31/18 17:17 07/31/18 18:00 07/31/18 17:17 07/31/18 17:17 07/31/18 17:17 Intake and Output: 07/31/18 08/01/18 18:59 06:59 Intake Total 1600 Output Total 950 Balance 650 - Medications Medications: Current Medications Albuterol/Ipratropium (Duoneb 3 Mg/0.5 Mg (3 Ml) Ud) 3 ml IH [id number] PRN PRN Reason: Wheezing Last Admin: 07/30/18 13:21 Dose: 3 ml Famotidine (Pepcid) 40 mg PO HS [facility] Last Admin: 07/30/18 21:24 Dose: 40 mg Folic Acid (Folic Acid) 1 mg PO DAILY [facility] Last Admin: 07/31/18 10:01 Dose: 1 mg Ceftriaxone Sodium (Rocephin 2 Gm Ivpb) 2 gm in 100 mls @ 100 mls/hr IVPB DAILY [facility] PRN Reason: Protocol Last Admin: 07/31/18 10:01 Dose: 100 mls/hr Lactulose (Enulose) 20 gm PO BID [facility] Last Admin: 07/31/18 17:21 Dose: 20 gm Lorazepam (Ativan) 1 mg IVP Q2H PRN; Protocol PRN Reason: Symptoms of alcohol withdrawl Last Admin: 07/31/18 10:19 Dose: 1 mg Lorazepam (Ativan) 0.5 mg IVP Q4H [facility] PRN Reason: Protocol Last Admin: 07/31/18 17:20 Dose: 0.5 mg Multivitamins (Thera Tab) 1 tab PO 0800 [facility] Last Admin: 07/31/18 08:32 Dose: 1 tab Nicotine (Nicoderm Cq) 1 patch TD DAILY [facility] Last Admin: 07/31/18 10:01 Dose: 1 patch Potassium Chloride (K-Dur 20 Meq Er Tab) 20 meq PO BID [facility] Stop: 08/02/18 10:01 Last Admin: 07/31/18 17:21 Dose: 20 meq Prednisolone (Prednisolone Oral Soln) 40 mg PO DAILY [facility] Last Admin: 07/31/18 10:19 Dose: 40 mg Thiamine HCl (Vitamin B1 Tab) 100 mg PO DAILY [facility] Last Admin: 07/31/18 10:53 Dose: 100 mg - Labs Labs: 07/31/18 07:30 07/31/18 07:30 PT 21.3 SECONDS (9.4-12.5) H 07/28/18 07:15 INR 1.83 07/28/18 07:15 APTT 32.8 Seconds (25.1-36.5) 07/28/18 07:15 - Constitutional Appears: No Acute Distress - Head Exam Head Exam: ATRAUMATIC, NORMOCEPHALIC - ENT Exam ENT Exam: Mucous Membranes Moist - Respiratory Exam Respiratory Exam: Clear to Ausculation Bilateral, NORMAL BREATHING PATTERN. absent: Wheezes - Cardiovascular Exam Cardiovascular Exam: REGULAR RHYTHM, RRR, +S1, +S2 - GI/Abdominal Exam GI & Abdominal Exam: Soft, Normal Bowel Sounds. absent: Tenderness - Extremities Exam Extremities Exam: Full ROM, Normal Inspection. absent: Pedal Edema, Tenderness - Neurological Exam Neurological Exam: Alert - Psychiatric Exam Psychiatric exam: Normal Affect, Normal Mood - Skin Additional comments: jaundice Assessment and Plan - Assessment and Plan (Free Text) Assessment: Pt is a 48 yo male with a PMH of alcoholism, pancreatic lesion, alcoholic hepatitis, who was brought in by ambulance after an episode of LOC possible head trauma, who was admitted for hypokalemia, hypophosphatemia, hypomagnasemia , and worsening liver function. Plan: Urosepsis - continue ceftriaxone 2gm daily - ID: plans for 2 weeks of antibiotics - PT, Hospice/ palliative care consulted - ID: [place] recommends urology consult, for UTI in a male, complicated Liver Failure - transaminitis continues to improve - ammonia 13 - prednisone 40 PO daily - Lactulose 20 grams PO BID -nursing communication order to monitor the number of bowel movements pt has, to titrate lactulose dosage - Thiamine 100mg PO daily, folate 1mg PO daily, multivitamin 1 tablet - avoid hepatotoxic drugs - Child-Alcantar 10 - Maddrey Score 61.5, candidate for glucocorticoid therapy - GI following Alcohol Withdrawal - Seizure precautions, fall precautions, moderate - Ativan [facility] 0.5mg q4h - Ativan PRN 1mg q2h Tobacco Dependence - nicotine patch Ppx - SCD - HHD Pt seen, examined, assessment, and plan discussed with Dr Monsivais. Jem Abbott PGY1 <Codie Monsivais - Last Filed: 08/01/18 06:56> Objective - Vital Signs/Intake and Output Vital Signs (last 24 hours): Temp Pulse Resp BP Pulse Ox 98.6 F 76 18 99/54 L 99 07/31/18 17:17 08/01/18 02:00 07/31/18 17:17 07/31/18 17:17 07/31/18 17:17 Intake and Output: 07/31/18 08/01/18 18:59 06:59 Intake Total 1600 Output Total 950 Balance 650 - Medications Medications: Current Medications Albuterol/Ipratropium (Duoneb 3 Mg/0.5 Mg (3 Ml) Ud) 3 ml IH [id number] PRN PRN Reason: Wheezing Last Admin: 07/30/18 13:21 Dose: 3 ml Famotidine (Pepcid) 40 mg PO HS [facility] Last Admin: 07/31/18 21:44 Dose: 40 mg Folic Acid (Folic Acid) 1 mg PO DAILY [facility] Last Admin: 07/31/18 10:01 Dose: 1 mg Ceftriaxone Sodium (Rocephin 2 Gm Ivpb) 2 gm in 100 mls @ 100 mls/hr IVPB DAILY [facility] PRN Reason: Protocol Last Admin: 07/31/18 10:01 Dose: 100 mls/hr Lactulose (Enulose) 20 gm PO BID [facility] Last Admin: 07/31/18 17:21 Dose: 20 gm Lorazepam (Ativan) 1 mg IVP Q2H PRN; Protocol PRN Reason: Symptoms of alcohol withdrawl Last Admin: 07/31/18 10:19 Dose: 1 mg Lorazepam (Ativan) 0.5 mg IVP Q4H [facility] PRN Reason: Protocol Last Admin: 08/01/18 04:41 Dose: 0.5 mg Multivitamins (Thera Tab) 1 tab PO 0800 [facility] Last Admin: 07/31/18 08:32 Dose: 1 tab Nicotine (Nicoderm Cq) 1 patch TD DAILY [facility] Last Admin: 07/31/18 10:01 Dose: 1 patch Potassium Chloride (K-Dur 20 Meq Er Tab) 20 meq PO BID [facility] Stop: 08/02/18 10:01 Last Admin: 07/31/18 17:21 Dose: 20 meq Prednisolone (Prednisolone Oral Soln) 40 mg PO DAILY [facility] Last Admin: 07/31/18 10:19 Dose: 40 mg Thiamine HCl (Vitamin B1 Tab) 100 mg PO DAILY [facility] Last Admin: 07/31/18 10:53 Dose: 100 mg - Labs Labs: 07/31/18 07:30 07/31/18 07:30 PT 21.3 SECONDS (9.4-12.5) H 07/28/18 07:15 INR 1.83 07/28/18 07:15 APTT 32.8 Seconds (25.1-36.5) 07/28/18 07:15 Attending/Attestation - Attestation I have personally seen and examined this patient.: Yes I have fully participated in the care of the patient.: Yes I have reviewed all pertinent clinical information, including history, physical exam and plan: Yes Notes (Text): 07/31/18 48 year old male with past medical history of alcohol abuse, pancreatic tail lesion and alcoholic hepatitis who presented with sepsis secondary to E coli bacteremia/UTI and liver failure. Repeat cultures were negative. Echocardiogram was negative for vegetations. Continue with iv antibiotics as per ID; will need 2 weeks of antibiotics. ID also recommended urology evaluation for complicated UTI which is requested. Patient is on po prednisone. LFTs are elevated but slowly improving and stable. GI was following. Patient was counselled on alcohol cessation. He is on tapering ativan for withdrawal symptoms. Continue with multivitamin, folic acid and thiamine. PT evaluation was appreciated; recommended JAXSON which patient stated he will consider. Lactulose dose decreased today as patient is reporting loose stools. Codie Monsivais MD Hospitalist.
--- NOTE | 2018-07-31 22:21 | PN ---
DATE: 07/31/2018 SUBJECTIVE: The patient is in bed, in no acute distress, nontoxic. The patient was seen earlier this morning in room 362 bed 2. PHYSICAL EXAMINATION: VITAL SIGNS: Temperature is 98, blood pressure is 130/70, respiratory rate of 16. HEENT: Unremarkable. NECK: Supple. LUNGS: Have decreased breath sounds. HEART: Normal S1, S2. ABDOMEN: Soft. LABORATORY EXAMINATION: Reveals a white count 11,600, hemoglobin of 10, platelets of 162. Chemistries reveal a BUN of 17, creatinine of 0.7. Urinalysis is noted and toxicology is reviewed. Serology is noted. Microbiology is reviewed. ASSESSMENT AND PLAN: A 48-year-old male with severe sepsis, status post acute renal failure with Escherichia coli bacteremia secondary to Escherichia coli urinary tract infection, must rule out underlying prostate disease in the patient with complicated urinary tract infection and pancreatic tail lesion and chronic alcohol abuse. Should have urology evaluation, should have a prostate-specific antigen test done. Today is day #9 of antibiotics. Plan on completing 2 weeks of antibiotics should his prostatitis takes longer. Case discussed with the medical field representative. The patient is currently on ceftriaxone, which requires renewal, which I will do so. Bill Mcnulty MD
[2018-08-01 07:03] LABS: BASO # 0.01 K/mm3 (0.0-2.0); BASO % 0.1 % (0.0-3.0); EOS # 0.1 (0.0-0.7); EOS % 0.4 % (1.5-5.0); GRAN # 11.32 (1.4-6.5); GRAN % 83.8 % (50.0-68.0); LYMPH # 1.2 (1.2-3.4); MEAN CELL VOLUME 108.1 fl (80.0-105.0); MEAN CORPUSCULAR HEMOGLOBIN 38.5 pg (25.0-35.0); MEAN CORPUSCULAR HGB CONC 35.6 g/dl (31.0-37.0); MEAN PLATELET VOLUME 10.6 fl (7.0-11.0); MONO # 0.9 (0.1-0.6); MONO % 6.7 % (1.0-6.0); RBC 2.6 10^6/uL (3.5-6.1); RED CELL DISTRIBUTION WIDTH 17.2 % (11.5-14.5); WHITE BLOOD COUNT 13.5 10^3/ul (4.5-11.0)
[2018-08-01] MEDS: Multivitamin Therapeutic Tab PO SCH (08:25)
[2018-08-01] MEDS: Potassium Chloride 20 mEq ER Tab PO SCH ×2 (09:35→17:16)
[2018-08-01] MEDS: cefTRIAXone 2 GM IN NS 2 GM/100 ML BAG IVPB SCH (09:36)
[2018-08-01] MEDS: PrednisoLONE 15 mg/5 ml Oral Syrup (240 ml) PO SCH (10:06)
--- NOTE | 2018-08-01 13:07 | CP.PCM.PN ---
Subjective - Date & Time of Evaluation Date of Evaluation: 08/01/18 Time of Evaluation: 11:25 - Subjective Subjective: No fevers, not in distress, no abdominal pain, urinating ok, no nausea or vomiting, no diarrhea. Objective - Vital Signs/Intake and Output Vital Signs (last 24 hours): Temp Pulse Resp BP Pulse Ox 98.4 F 90 19 95/59 L 97 08/01/18 08:05 08/01/18 10:00 08/01/18 08:05 08/01/18 08:05 08/01/18 08:05 Intake and Output: 08/01/18 08/01/18 06:59 18:59 Intake Total 480 Output Total 400 Balance 80 - Medications Medications: Current Medications Albuterol/Ipratropium (Duoneb 3 Mg/0.5 Mg (3 Ml) Ud) 3 ml IH [id number] PRN PRN Reason: Wheezing Last Admin: 07/30/18 13:21 Dose: 3 ml Famotidine (Pepcid) 40 mg PO HS [facility] Last Admin: 07/31/18 21:44 Dose: 40 mg Folic Acid (Folic Acid) 1 mg PO DAILY [facility] Last Admin: 08/01/18 09:35 Dose: 1 mg Ceftriaxone Sodium (Rocephin 2 Gm Ivpb) 2 gm in 100 mls @ 100 mls/hr IVPB DAILY [facility] PRN Reason: Protocol Last Admin: 08/01/18 09:36 Dose: 100 mls/hr Lactulose (Enulose) 20 gm PO BID [facility] Last Admin: 08/01/18 09:34 Dose: 20 gm Lorazepam (Ativan) 1 mg IVP Q2H PRN; Protocol PRN Reason: Symptoms of alcohol withdrawl Last Admin: 07/31/18 10:19 Dose: 1 mg Lorazepam (Ativan) 0.5 mg IVP Q4H [facility] PRN Reason: Protocol Last Admin: 08/01/18 12:06 Dose: 0.5 mg Multivitamins (Thera Tab) 1 tab PO 0800 [facility] Last Admin: 08/01/18 08:25 Dose: 1 tab Nicotine (Nicoderm Cq) 1 patch TD DAILY [facility] Last Admin: 08/01/18 09:35 Dose: 1 patch Potassium Chloride (K-Dur 20 Meq Er Tab) 20 meq PO BID [facility] Stop: 09/15/18 10:01 Last Admin: 08/01/18 09:35 Dose: 20 meq Prednisolone (Prednisolone Oral Soln) 40 mg PO DAILY [facility] Last Admin: 08/01/18 10:06 Dose: 40 mg Thiamine HCl (Vitamin B1 Tab) 100 mg PO DAILY [facility] Last Admin: 08/01/18 09:36 Dose: 100 mg - Labs Labs: 08/01/18 06:20 07/31/18 07:30 PT 21.3 SECONDS (9.4-12.5) H 07/28/18 07:15 INR 1.83 07/28/18 07:15 APTT 32.8 Seconds (25.1-36.5) 07/28/18 07:15 - Constitutional Appears: Chronically Ill - Head Exam Head Exam: NORMAL INSPECTION - Eye Exam Eye Exam: Scleral icterus - ENT Exam ENT Exam: Mucous Membranes Moist - Neck Exam Neck Exam: absent: Meningismus - Respiratory Exam Respiratory Exam: Decreased Breath Sounds - Cardiovascular Exam Cardiovascular Exam: +S1, +S2 - GI/Abdominal Exam GI & Abdominal Exam: Soft. absent: Tenderness Assessment and Plan - Assessment and Plan (Free Text) Plan: Assessment severe sepsis S/P acute renal failure due to E. coli bacteremia, probably due to UTI in this patient with severe acute alcoholic hepatitis acute renal failure chronic ethanol abuse pancreatic tail lesion Plan continue Rocephin since the blood and urine cx are showing watson-sensitive E. coli ; repeat blood cx are negative and 2D echo is negative for vegetations - plan for 2 weeks of antibiotics (Day 10 today) - discussed with Dr. Monsivais - patient to be seen by Urology continue systemic steroids for the alcoholic hepatitis as per GI will continue to monitor clinically HIV test is non-reactive overall prognosis is poor
--- NOTE | 2018-08-01 14:56 | CP.PCM.PN ---
Subjective - Date & Time of Evaluation Date of Evaluation: 08/01/18 Time of Evaluation: 14:55 - Subjective Subjective: Nephrology Consultation Note: Assessment: stable EMILIANO. Hypokalemia, Hypophosphatemia, hypomagnesemia: RESOLVED hyponatremia with low urine osmol but high urine Na: likely due to alcohol abuse /beer potomania: IMPROVED HAGMA likely alcoholic and lactic acidosis; RESOLVED Anemia ,abnormal LFT, alcohol abuse hyperbilirubunemia with thrombocytopenia and coagulopathy, GNR sepsis Plan ordered for KCL 20 bid continue with thiamine supplementation anemia management as per primary team repeat urine Na/Osmol reviewed. continue with oral fluid restriction to 1000 ml/ day. not a candidate for samsca due to hepatic dysfunction Dose meds/antibiotics for normal GFR. Glycemic control. pt need lifestyle modifications, need to abstain from alcohol abuse. Further work up/management as per primary team Thanks for allowing me to participate in care of your patient. Please call if any Qs. had d/w team Dr Herberth Eckert Office: [phone] Reason for consult: hypokalemia, EMILIANO and hyponatremia source of info: EMR HPI: Pt is a 48 year old male with hx of alcohol abuse came with pain abdomen and found to have severe jaundice with electrolytes abnormalities and EMILIANO hence renal consulted. he feels sick at this time. denies CP/SB. had episode of vomitting and loose stool. admits to daily etoh and poor oral intake. denies urine complaints ROS: pt awake. denies CP/SOB. no urine complaints. has loose stool Physical Examination: General Appearance: comfortable, in no acute respiratory distress, better appearing Vitals reviewed and noted as below Head; Atraumatic, normocephalic ENT: no ulcers no thrush. Tongue is midline. Oropharynx: no rash or ulcers. EYES: Pupils are equal, round and reactive to light accommodation. Eye muscles and extraocular movement intact. Sclera is icteric. Neck; supple no lymphadenopathy, no thyromegaly or bruit Lungs: Normal respiratory rate/effort. Breath sounds bilateral clear b/l Heart: Normal rate. s1s2 normal. No rub or gallop. Extremities: no edema. No varicose veins Neurological: Patient is awake alert. No focal deficit. Strength bilateral appropriate and equal Skin: Warm and dry. Normal turgor. No rash. Palpitation: Normal elasticity for age. grossly lemon yellow color. few spider angioma on Rt upper chest Abdomen: Abdomen is soft/distended. Bowel sounds +. There is no abdominal tenderness, no guarding/rigidity ? hepatomegaly Psych: limited insight. flat affect MSK: no joint tenderness or swelling. Digits normal, no deformity. nails all big : kidney or bladder not palpable Labs/imaging reviewed. Past medical history, past surgical history, family history, social history, allergy reviewed and noted as below Family hx: no hx of CKD. Rest non-contributory Objective - Vital Signs/Intake and Output Vital Signs (last 24 hours): Temp Pulse Resp BP Pulse Ox 98.4 F 89 19 95/59 L 97 08/01/18 08:05 08/01/18 14:00 08/01/18 08:05 08/01/18 08:05 08/01/18 08:05 Intake and Output: 08/01/18 08/01/18 06:59 18:59 Intake Total 480 Output Total 400 Balance 80 - Medications Medications: Current Medications Albuterol/Ipratropium (Duoneb 3 Mg/0.5 Mg (3 Ml) Ud) 3 ml IH [id number] PRN PRN Reason: Wheezing Last Admin: 07/30/18 13:21 Dose: 3 ml Famotidine (Pepcid) 40 mg PO HS [facility] Last Admin: 07/31/18 21:44 Dose: 40 mg Folic Acid (Folic Acid) 1 mg PO DAILY [facility] Last Admin: 08/01/18 09:35 Dose: 1 mg Ceftriaxone Sodium (Rocephin 2 Gm Ivpb) 2 gm in 100 mls @ 100 mls/hr IVPB DAILY [facility] PRN Reason: Protocol Last Admin: 08/01/18 09:36 Dose: 100 mls/hr Lactulose (Enulose) 20 gm PO BID [facility] Last Admin: 08/01/18 09:34 Dose: 20 gm Lorazepam (Ativan) 1 mg IVP Q2H PRN; Protocol PRN Reason: Symptoms of alcohol withdrawl Last Admin: 07/31/18 10:19 Dose: 1 mg Lorazepam (Ativan) 0.5 mg IVP Q4H [facility] PRN Reason: Protocol Last Admin: 08/01/18 12:06 Dose: 0.5 mg Multivitamins (Thera Tab) 1 tab PO 0800 [facility] Last Admin: 08/01/18 08:25 Dose: 1 tab Nicotine (Nicoderm Cq) 1 patch TD DAILY [facility] Last Admin: 08/01/18 09:35 Dose: 1 patch Potassium Chloride (K-Dur 20 Meq Er Tab) 20 meq PO BID [facility] Stop: 08/02/18 10:01 Last Admin: 08/01/18 09:35 Dose: 20 meq Prednisolone (Prednisolone Oral Soln) 40 mg PO DAILY [facility] Last Admin: 08/01/18 10:06 Dose: 40 mg Thiamine HCl (Vitamin B1 Tab) 100 mg PO DAILY [facility] Last Admin: 08/01/18 09:36 Dose: 100 mg - Labs Labs: 08/01/18 06:20 07/31/18 07:30 PT 21.3 SECONDS (9.4-12.5) H 07/28/18 07:15 INR 1.83 07/28/18 07:15 APTT 32.8 Seconds (25.1-36.5) 07/28/18 07:15
--- NOTE | 2018-08-01 22:27 | CP.PCM.PN ---
<Jem Abbott - Last Filed: 08/01/18 22:35> Subjective - Date & Time of Evaluation Date of Evaluation: 08/01/18 Time of Evaluation: 07:00 - Subjective Subjective: Pt seen/examined at bedside. Reports diarhea. No other complaints. Objective - Vital Signs/Intake and Output Vital Signs (last 24 hours): Temp Pulse Resp BP Pulse Ox 98.4 F 77 19 95/59 L 97 08/01/18 08:05 08/01/18 18:00 08/01/18 08:05 08/01/18 08:05 08/01/18 08:05 Intake and Output: 08/01/18 08/02/18 18:59 06:59 Intake Total 1760 Output Total 700 Balance 1060 - Medications Medications: Current Medications Albuterol/Ipratropium (Duoneb 3 Mg/0.5 Mg (3 Ml) Ud) 3 ml IH [id number] PRN PRN Reason: Wheezing Last Admin: 07/30/18 13:21 Dose: 3 ml Famotidine (Pepcid) 40 mg PO HS VÍCTOR Last Admin: 08/01/18 21:30 Dose: 40 mg Folic Acid (Folic Acid) 1 mg PO DAILY [facility] Last Admin: 08/01/18 09:35 Dose: 1 mg Ceftriaxone Sodium (Rocephin 2 Gm Ivpb) 2 gm in 100 mls @ 100 mls/hr IVPB DAILY [facility] PRN Reason: Protocol Last Admin: 08/01/18 09:36 Dose: 100 mls/hr Lactulose (Enulose) 20 gm PO BID [facility]CTOR Last Admin: 08/01/18 17:16 Dose: 20 gm Lorazepam (Ativan) 1 mg IVP Q2H PRN; Protocol PRN Reason: Symptoms of alcohol withdrawl Last Admin: 07/31/18 10:19 Dose: 1 mg Lorazepam (Ativan) 0.5 mg IVP Q4H [facility] PRN Reason: Protocol Last Admin: 08/01/18 21:27 Dose: 0.5 mg Multivitamins (Thera Tab) 1 tab PO 0800 [facility] Last Admin: 08/01/18 08:25 Dose: 1 tab Nicotine (Nicoderm Cq) 1 patch TD DAILY [facility] Last Admin: 08/01/18 09:35 Dose: 1 patch Potassium Chloride (K-Dur 20 Meq Er Tab) 20 meq PO BID VÍCTOR Stop: 08/02/18 10:01 Last Admin: 08/01/18 17:16 Dose: 20 meq Prednisolone (Prednisolone Oral Soln) 40 mg PO DAILY [facility] Last Admin: 08/01/18 10:06 Dose: 40 mg Thiamine HCl (Vitamin B1 Tab) 100 mg PO DAILY [facility] Last Admin: 08/01/18 09:36 Dose: 100 mg - Labs Labs: 08/01/18 06:20 07/31/18 07:30 PT 21.3 SECONDS (9.4-12.5) H 07/28/18 07:15 INR 1.83 07/28/18 07:15 APTT 32.8 Seconds (25.1-36.5) 07/28/18 07:15 - Constitutional Appears: No Acute Distress - Head Exam Head Exam: NORMOCEPHALIC - ENT Exam ENT Exam: Mucous Membranes Moist - Respiratory Exam Respiratory Exam: Clear to Ausculation Bilateral, NORMAL BREATHING PATTERN. absent: Decreased Breath Sounds, Rales, Wheezes - Cardiovascular Exam Cardiovascular Exam: RRR, +S1, +S2. absent: Murmur - GI/Abdominal Exam GI & Abdominal Exam: Soft, Normal Bowel Sounds Additional comments: enlarged liver to palpation - Extremities Exam Extremities Exam: Full ROM. absent: Calf Tenderness - Neurological Exam Neurological Exam: Awake - Skin Additional comments: generalized jaundiced, scleral icterus Assessment and Plan - Assessment and Plan (Free Text) Assessment: Pt is a 48 yo male with a PMH of alcoholism, pancreatic lesin, alcoholic hepatitis who was brought in by ambulance after an episode of LOC, possible head trauma, was admitted for hypokalemia, hypophosphatemia, hypomagnesemia, and worsening liver failure. Plan: Urosepsis - continue ceftriaxone 2gm daily - ID: plans for 2 weeks of antibiotics, cipro - ID: [place] recommends urology consult, for UTI in a male, complicated Liver Failure - prednisone 40 PO daily - Lactulose 20 grams PO BID -monitor the number of bowel movements pt has, to titrate lactulose dosage - Thiamine 100mg PO daily, folate 1mg PO daily, multivitamin 1 tablet - avoid hepatotoxic drugs - GI following Alcohol Withdrawal - Seizure precautions, fall precautions, moderate - Ativan VÍCTOR 0.5mg q4h - Ativan PRN 1mg q2h Tobacco Dependence - nicotine patch Ppx - SCD - HHD Pt seen, examined, and discussed with Dr. Loi Abbott, PGY I <Codie Monsivais - Last Filed: 08/02/18 07:06> Objective - Vital Signs/Intake and Output Vital Signs (last 24 hours): Temp Pulse Resp BP Pulse Ox 98.3 F 67 19 119/78 100 08/02/18 06:00 08/02/18 06:00 08/02/18 06:00 08/02/18 06:00 08/02/18 06:00 - Medications Medications: Current Medications Albuterol/Ipratropium (Duoneb 3 Mg/0.5 Mg (3 Ml) Ud) 3 ml IH [id number] PRN PRN Reason: Wheezing Last Admin: 07/30/18 13:21 Dose: 3 ml Famotidine (Pepcid) 40 mg PO HS [facility]CTOR Last Admin: 08/01/18 21:30 Dose: 40 mg Folic Acid (Folic Acid) 1 mg PO DAILY [facility] Last Admin: 08/01/18 09:35 Dose: 1 mg Ceftriaxone Sodium (Rocephin 2 Gm Ivpb) 2 gm in 100 mls @ 100 mls/hr IVPB DAILY [facility] PRN Reason: Protocol Last Admin: 08/01/18 09:36 Dose: 100 mls/hr Lactulose (Enulose) 20 gm PO BID VÍCTOR Last Admin: 08/01/18 17:16 Dose: 20 gm Lorazepam (Ativan) 1 mg IVP Q2H PRN; Protocol PRN Reason: Symptoms of alcohol withdrawl Last Admin: 07/31/18 10:19 Dose: 1 mg Lorazepam (Ativan) 0.5 mg IVP Q4H [facility] PRN Reason: Protocol Last Admin: 08/01/18 21:27 Dose: 0.5 mg Multivitamins (Thera Tab) 1 tab PO 0800 [facility] Last Admin: 08/01/18 08:25 Dose: 1 tab Nicotine (Nicoderm Cq) 1 patch TD DAILY [facility] Last Admin: 08/01/18 09:35 Dose: 1 patch Potassium Chloride (K-Dur 20 Meq Er Tab) 20 meq PO BID [facility]ÍCTOR Stop: 08/02/18 10:01 Last Admin: 08/01/18 17:16 Dose: 20 meq Prednisolone (Prednisolone Oral Soln) 40 mg PO DAILY [facility]CTOR Last Admin: 08/01/18 10:06 Dose: 40 mg Thiamine HCl (Vitamin B1 Tab) 100 mg PO DAILY [facility]CTOR Last Admin: 08/01/18 09:36 Dose: 100 mg - Labs Labs: 08/01/18 06:20 07/31/18 07:30 PT 21.3 SECONDS (9.4-12.5) H 07/28/18 07:15 INR 1.83 07/28/18 07:15 APTT 32.8 Seconds (25.1-36.5) 07/28/18 07:15 Attending/Attestation - Attestation I have personally seen and examined this patient.: Yes I have fully participated in the care of the patient.: Yes I have reviewed all pertinent clinical information, including history, physical exam and plan: Yes Notes (Text): 08/01/18 48 year old male with past medical history of alcohol abuse, pancreatic tail lesion and alcoholic hepatitis who presented with sepsis secondary to E coli bacteremia/UTI and liver failure. Repeat cultures were negative. Echocardiogram was negative for vegetations. Continue with iv antibiotics as per ID; will need 2 weeks of antibiotics. Urology evaluation was appreciated; recommended outpatient follow up. Patient is on po prednisone. Patient is on lactulose. LFTs are elevated but slowly improving and stable. GI was following. Patient was counselled on alcohol cessation. He is on tapering ativan for withdrawal symptoms. Continue with multivitamin, folic acid and thiamine. PT evaluation was appreciated; recommended [facility] however is not sure if he wants to go to [facility]. Consider d/c planning if cleared by PT. Codie Monsivais MD Hospitalist.
--- NOTE | 2018-08-02 06:40 | CON ---
DATE: 08/01/2018 UROLOGY CONSULTATION REASON FOR CONSULTATION: UTI. HISTORY OF PRESENT ILLNESS: Mr. Mccormick is a very pleasant gentleman who actually voices no specific urinary complaints, but is found to have positive culture. He actually said that he presented with an episode where he passed out. At that time that he presented, again, he was admitted as a sepsis patient with multiple abnormalities. From Urology standpoint, he has got bacteremia and positive urine culture and Urology consulted regarding further recommendation. PAST MEDICAL AND SURGICAL HISTORY: As listed on the chart. PHYSICAL EXAMINATION: ABDOMEN: Relatively soft as we noted. No other specific abnormalities are detected urologically. From standpoint, labs noted, CT scan noted. DIAGNOSIS: Sepsis. UROLOGY PLAN: Is as follows. For now, no further diagnostic studies or testing. We will discuss with the patient possible evaluation with cystoscopy for the future. But for now, antibiotic therapy and outpatient followup. I provided patient my office card and we will see him there. Douglas Weaver MD
[2018-08-02 08:09] LABS: BASO # 0.01 K/mm3 (0.0-2.0); BASO % 0.1 % (0.0-3.0); EOS # 0.1 (0.0-0.7); EOS % 0.5 % (1.5-5.0); GRAN # 14.44 (1.4-6.5); GRAN % 85.4 % (50.0-68.0); HEMOGLOBIN 10.2 g/dL (14.0-18.0); LYMPH # 1.6 (1.2-3.4); LYMPH % 9.6 % (22.0-35.0); MEAN CELL VOLUME 107.9 fl (80.0-105.0); MEAN CORPUSCULAR HEMOGLOBIN 38.2 pg (25.0-35.0); MEAN CORPUSCULAR HGB CONC 35.4 g/dl (31.0-37.0); MEAN PLATELET VOLUME 10.4 fl (7.0-11.0); MONO # 0.7 (0.1-0.6); MONO % 4.4 % (1.0-6.0); RBC 2.67 10^6/uL (3.5-6.1); RED CELL DISTRIBUTION WIDTH 16.8 % (11.5-14.5); WHITE BLOOD COUNT 16.9 10^3/ul (4.5-11.0)
[2018-08-02] MEDS: Multivitamin Therapeutic Tab PO SCH (08:50)
[2018-08-02 09:00] LABS: ALB/GLOB RATIO 0.7 (1.1-1.8); ALT/SGPT 95 U/L (7-56); AST/SGOT 167 U/L (17-59); BLOOD UREA NITROGEN 17 mg/dL (7-21); CALCIUM 8.3 mg/dL (8.4-10.5); GFR NON-AFRICAN AMERICAN > 60
[2018-08-02] MEDS: Potassium Chloride 20 mEq ER Tab PO SCH (09:21)
[2018-08-02] MEDS: cefTRIAXone 2 GM IN NS 2 GM/100 ML BAG IVPB SCH (09:21)
[2018-08-02] MEDS ORDERED: Potassium Chloride 40 mEq/30 ml LIQ UD PO ONE (09:55)
[2018-08-02] MEDS: PrednisoLONE 15 mg/5 ml Oral Syrup (240 ml) PO SCH (10:10)
--- NOTE | 2018-08-02 12:06 | PN ---
DATE: 08/02/2018 SUBJECTIVE: The patient is in bed, in no acute distress, nontoxic. PHYSICAL EXAMINATION: VITAL SIGNS: Temperature is 98, blood pressure is 119/78, respiratory rate of 18. HEENT: Examination of HEENT is unremarkable. NECK: Supple. LUNGS: Have decreased breath sounds. HEART: Normal S1, S2. ABDOMEN: Soft. LABORATORY DATA: Laboratory examination reveals a white count of 16,900, hemoglobin of 10, platelets of 209. BUN of 17, creatinine of 0.5. Urinalysis is noted. Blood cultures are negative, though initial blood cultures were positive for E. coli and urine blood. Review of orders reveals the patient to be on ceftriaxone and the patient's PSA is noted. Dr. Weaver's consultation is reviewed. ASSESSMENT AND PLAN: A 48-year-old male, who was seen earlier with the inpatient admitted with severe sepsis, acute renal failure, Escherichia coli bacteremia secondary to Escherichia coli urinary tract infection in a patient with severe alcoholic hepatitis and acute renal failure and chronic ethanol abuse and pancreatic tail lesion, on ceftriaxone and today is day #11. The patient is followed up with Urology. Maybe able to switch to p.o. Cipro to complete therapy as discussed with Dr. Monsivais and his team. Complete total of 14 days. Bill Mcnulty MD
--- NOTE | 2018-08-02 13:20 | CP.PCM.PN ---
Subjective - Date & Time of Evaluation Date of Evaluation: 08/02/18 Time of Evaluation: 13:18 - Subjective Subjective: Nephrology Consultation Note: Assessment: stable EMILIANO. Hypokalemia, Hypophosphatemia, hypomagnesemia hyponatremia with low urine osmol but high urine Na: likely due to alcohol abuse /beer potomania: IMPROVED HAGMA likely alcoholic and lactic acidosis; RESOLVED Anemia ,abnormal LFT, alcohol abuse hyperbilirubunemia with thrombocytopenia and coagulopathy, GNR sepsis Plan renal function stable 60 meq of K ordered should improve Na as well will monitor continue with thiamine supplementation anemia management as per primary team S: eating breakfast no complaints Physical Examination: General Appearance: comfortable, in no acute respiratory distress, better appearing Vitals reviewed and noted as below Head; Atraumatic, normocephalic ENT: no ulcers no thrush. Tongue is midline. Oropharynx: no rash or ulcers. EYES: Pupils are equal, round and reactive to light accommodation. Eye muscles and extraocular movement intact. Sclera is icteric. Neck; supple no lymphadenopathy, no thyromegaly or bruit Lungs: Normal respiratory rate/effort. Breath sounds bilateral clear b/l Heart: Normal rate. s1s2 normal. No rub or gallop. Extremities: no edema. No varicose veins Neurological: Patient is awake alert. No focal deficit. Strength bilateral appropriate and equal Skin: jaudniced, wared and dry Abdomen: Abdomen is soft/distended. Bowel sounds +. There is no abdominal tenderness, no guarding/rigidity ? hepatomegaly Psych: flat MSK: no joint tenderness or swelling. Digits normal, no deformity. nails all big : kidney or bladder not palpable Labs/imaging reviewed. Past medical history, past surgical history, family history, social history, allergy reviewed and noted as below Family hx: no hx of CKD. Rest non-contributory Objective - Vital Signs/Intake and Output Vital Signs (last 24 hours): Temp Pulse Resp BP Pulse Ox 98.3 F 67 19 119/78 100 08/02/18 06:00 08/02/18 06:00 08/02/18 06:00 08/02/18 06:00 08/02/18 06:00 - Medications Medications: Current Medications Albuterol/Ipratropium (Duoneb 3 Mg/0.5 Mg (3 Ml) Ud) 3 ml IH [id number] PRN PRN Reason: Wheezing Last Admin: 07/30/18 13:21 Dose: 3 ml Famotidine (Pepcid) 40 mg PO HS VÍCTOR Last Admin: 08/01/18 21:30 Dose: 40 mg Folic Acid (Folic Acid) 1 mg PO DAILY VÍCTOR Last Admin: 08/02/18 09:21 Dose: 1 mg Ceftriaxone Sodium (Rocephin 2 Gm Ivpb) 2 gm in 100 mls @ 100 mls/hr IVPB DAILY V[facility]CTOR PRN Reason: Protocol Last Admin: 08/02/18 09:21 Dose: 100 mls/hr Lactulose (Enulose) 20 gm PO BID VÍCTOR Last Admin: 08/02/18 09:21 Dose: 20 gm Lorazepam (Ativan) 1 mg IVP Q2H PRN; Protocol PRN Reason: Symptoms of alcohol withdrawl Last Admin: 07/31/18 10:19 Dose: 1 mg Lorazepam (Ativan) 0.5 mg IVP Q4H VÍCTOR PRN Reason: Protocol Last Admin: 08/02/18 12:26 Dose: 0.5 mg Multivitamins (Thera Tab) 1 tab PO 0800 VÍCTOR Last Admin: 08/02/18 08:50 Dose: 1 tab Nicotine (Nicoderm Cq) 1 patch TD DAILY VÍCTOR Last Admin: 08/02/18 09:21 Dose: 1 patch Prednisolone (Prednisolone Oral Soln) 40 mg PO DAILY [facility] Last Admin: 08/02/18 10:10 Dose: 40 mg Thiamine HCl (Vitamin B1 Tab) 100 mg PO DAILY [facility] Last Admin: 08/02/18 09:21 Dose: 100 mg - Labs Labs: 08/02/18 07:00 08/02/18 08:00 PT 21.3 SECONDS (9.4-12.5) H 07/28/18 07:15 INR 1.83 07/28/18 07:15 APTT 32.8 Seconds (25.1-36.5) 07/28/18 07:15
--- NOTE | 2018-08-02 18:09 | CP.PCM.PN ---
<Chi Sahni - Last Filed: 08/02/18 19:44> Subjective - Date & Time of Evaluation Date of Evaluation: 08/02/18 Time of Evaluation: 08:20 - Subjective Subjective: Chi Sahni DO PGY-1, Internal Medicine Resident. Hospitalist Progress Note Patient seen and examined at bedside. Still having diarrhea. Slept well. No acute events overnight. Patient denied CP, palpitations, headache, fever. ROS is otherwise negative Objective - Vital Signs/Intake and Output Vital Signs (last 24 hours): Temp Pulse Resp BP Pulse Ox 98.7 F 91 H 20 109/67 99 08/02/18 16:33 08/02/18 18:00 08/02/18 16:33 08/02/18 16:33 08/02/18 16:33 - Medications Medications: Current Medications Albuterol/Ipratropium (Duoneb 3 Mg/0.5 Mg (3 Ml) Ud) 3 ml IH [id number] PRN PRN Reason: Wheezing Last Admin: 07/30/18 13:21 Dose: 3 ml Famotidine (Pepcid) 40 mg PO HS VÍCTOR Last Admin: 08/01/18 21:30 Dose: 40 mg Folic Acid (Folic Acid) 1 mg PO DAILY VÍCTOR Last Admin: 08/02/18 09:21 Dose: 1 mg Ceftriaxone Sodium (Rocephin 2 Gm Ivpb) 2 gm in 100 mls @ 100 mls/hr IVPB DAILY [facility]ÍCTOR PRN Reason: Protocol Last Admin: 08/02/18 09:21 Dose: 100 mls/hr Lactulose (Enulose) 20 gm PO BID VÍCTOR Last Admin: 08/02/18 17:12 Dose: 20 gm Lorazepam (Ativan) 1 mg IVP Q2H PRN; Protocol PRN Reason: Symptoms of alcohol withdrawl Last Admin: 07/31/18 10:19 Dose: 1 mg Lorazepam (Ativan) 0.5 mg IVP Q6H VÍCTOR PRN Reason: Protocol Last Admin: 08/02/18 17:12 Dose: 0.5 mg Multivitamins (Thera Tab) 1 tab PO 0800 VÍCTOR Last Admin: 08/02/18 08:50 Dose: 1 tab Nicotine (Nicoderm Cq) 1 patch TD DAILY [facility] Last Admin: 08/02/18 09:21 Dose: 1 patch Prednisone (Prednisone Tab) 20 mg PO DAILY [facility] Thiamine HCl (Vitamin B1 Tab) 100 mg PO DAILY [facility] Last Admin: 08/02/18 09:21 Dose: 100 mg - Labs Labs: 08/02/18 07:00 08/02/18 08:00 PT 21.3 SECONDS (9.4-12.5) H 07/28/18 07:15 INR 1.83 07/28/18 07:15 APTT 32.8 Seconds (25.1-36.5) 07/28/18 07:15 - Constitutional Appears: Well - Head Exam Head Exam: ATRAUMATIC, NORMAL INSPECTION, NORMOCEPHALIC - Eye Exam Eye Exam: EOMI, Normal appearance, PERRL Pupil Exam: NORMAL ACCOMODATION, PERRL - ENT Exam ENT Exam: Mucous Membranes Moist, Normal Exam - Neck Exam Neck Exam: Full ROM, Normal Inspection. absent: Lymphadenopathy - Respiratory Exam Respiratory Exam: Clear to Ausculation Bilateral, NORMAL BREATHING PATTERN - Cardiovascular Exam Cardiovascular Exam: REGULAR RHYTHM, +S1, +S2. absent: Murmur - GI/Abdominal Exam GI & Abdominal Exam: Soft, Normal Bowel Sounds. absent: Tenderness - Extremities Exam Extremities Exam: Full ROM, Normal Capillary Refill, Normal Inspection. absent : Joint Swelling, Pedal Edema - Back Exam Back Exam: NORMAL INSPECTION - Neurological Exam Neurological Exam: Alert, Awake, CN II-XII Intact, Normal Gait, Oriented x3 - Psychiatric Exam Psychiatric exam: Normal Affect, Normal Mood - Skin Skin Exam: Dry, Intact, Normal Color, Warm Assessment and Plan - Assessment and Plan (Free Text) Assessment: 48 y/o male with PMH of , pancreatic lesion, alcohol abuse and hepatitis, presented to ED after an episode of LOC and head trauma. Admitted for alcohol withdrawal, liver failure and electrolyte imbalance Plan: Urosepsis - WBC 16.9 today. - urnine C&S ordered - continue ceftriaxone 2gm daily - urnine C&S ordered - Prescribe Cipro 500 mg at discharge x14 days per Dr Fletcher Diarrhea - WBC 16.9 today. - C diff antigen ordered. Anemia -Likely due to alcohol abuse -H/H stable -continue monitoring EMILIANO -renal function stable -As per nephrology consult: 60 meq of K ordered should improve Na as well will monitor Liver Failure - Elevated LFT - Continue Lactulose 20 grams PO TID - prednisone 40 PO daily Alcohol Withdrawal - CARRI score 3 - Taper Ativan to VÍCTOR 0.5mg Q6 - Continue thiamine, folate, multivitamin H/O smoking: -Nicotine patch -Alcohol cessation counseling - SCD - Seizure precautions - Fall precautions - PT eval and treat ordered Case reviewed and plan discussed with Dr Monsivais <Codie Monsivais - Last Filed: 08/03/18 07:04> Objective - Vital Signs/Intake and Output Vital Signs (last 24 hours): Temp Pulse Resp BP Pulse Ox 98.7 F 79 20 109/67 99 08/02/18 16:33 08/03/18 02:00 08/02/18 16:33 08/02/18 16:33 08/02/18 16:33 - Medications Medications: Current Medications Albuterol/Ipratropium (Duoneb 3 Mg/0.5 Mg (3 Ml) Ud) 3 ml IH [id number] PRN PRN Reason: Wheezing Last Admin: 07/30/18 13:21 Dose: 3 ml Famotidine (Pepcid) 40 mg PO HS [facility] Last Admin: 08/02/18 21:23 Dose: 40 mg Folic Acid (Folic Acid) 1 mg PO DAILY [facility] Last Admin: 08/02/18 09:21 Dose: 1 mg Ceftriaxone Sodium (Rocephin 2 Gm Ivpb) 2 gm in 100 mls @ 100 mls/hr IVPB DAILY [facility]CTOR PRN Reason: Protocol Last Admin: 08/02/18 09:21 Dose: 100 mls/hr Lactulose (Enulose) 20 gm PO BID [facility] Last Admin: 08/02/18 17:12 Dose: 20 gm Lorazepam (Ativan) 1 mg IVP Q2H PRN; Protocol PRN Reason: Symptoms of alcohol withdrawl Last Admin: 07/31/18 10:19 Dose: 1 mg Lorazepam (Ativan) 0.5 mg IVP Q6H VÍCTOR PRN Reason: Protocol Last Admin: 08/03/18 06:40 Dose: 0.5 mg Multivitamins (Thera Tab) 1 tab PO 0800 [facility] Last Admin: 08/02/18 08:50 Dose: 1 tab Nicotine (Nicoderm Cq) 1 patch TD DAILY [facility] Last Admin: 08/02/18 09:21 Dose: 1 patch Prednisone (Prednisone Tab) 20 mg PO DAILY [facility] Thiamine HCl (Vitamin B1 Tab) 100 mg PO DAILY [facility] Last Admin: 08/02/18 09:21 Dose: 100 mg - Labs Labs: 08/02/18 07:00 08/02/18 08:00 PT 21.3 SECONDS (9.4-12.5) H 07/28/18 07:15 INR 1.83 07/28/18 07:15 APTT 32.8 Seconds (25.1-36.5) 07/28/18 07:15 Attending/Attestation - Attestation I have personally seen and examined this patient.: Yes I have fully participated in the care of the patient.: Yes I have reviewed all pertinent clinical information, including history, physical exam and plan: Yes Notes (Text): 08/02/18 48 year old male with past medical history of alcohol abuse, pancreatic tail lesion and alcoholic hepatitis who presented with sepsis secondary to E coli bacteremia/UTI and liver failure. Repeat cultures were negative. Echocardiogram was negative for vegetations. Continue with iv antibiotics as per ID; will need 2 weeks of antibiotics. Case discussed with ID; can switch to po cipro upon discharge. Urology evaluation was appreciated; recommended outpatient follow up. Patient has leukocytosis today. Patient is on po prednisone which we will taper. Patient is on lactulose. Cdif is ordered as patient was reporting diarrhea few days prior although this has improved. LFTs are elevated but improving and stable. GI was following. Patient was counselled on alcohol cessation. He is on tapering ativan for withdrawal symptoms. Continue with multivitamin, folic acid and thiamine. PT evaluation was appreciated; recommended [facility] however is not sure if he wants to go to [facility]. Consider d/c planning if cleared by PT. Codie Monsivais MD Hospitalist.
--- NOTE | 2018-08-03 06:41 | CP.PCM.PN ---
<Chi Sahni - Last Filed: 08/03/18 15:07> Subjective - Date & Time of Evaluation Date of Evaluation: 08/03/18 Time of Evaluation: 06:41 - Subjective Subjective: Chi Sahni DO PGY-1, Internal Medicine Resident. Hospitalist Progress Note Patient seen and examined at bedside. Still still having diarrhea, 5 bouts last night, watery, no blood. Patient denied CP, palpitations, headache, fever. ROS is otherwise negative Objective - Vital Signs/Intake and Output Vital Signs (last 24 hours): Temp Pulse Resp BP Pulse Ox 98.7 F 79 20 109/67 99 08/02/18 16:33 08/03/18 02:00 08/02/18 16:33 08/02/18 16:33 08/02/18 16:33 Intake and Output: 08/02/18 08/03/18 18:59 06:59 Intake Total 920 Output Total 1200 Balance -280 - Medications Medications: Current Medications Albuterol/Ipratropium (Duoneb 3 Mg/0.5 Mg (3 Ml) Ud) 3 ml IH [id number] PRN PRN Reason: Wheezing Last Admin: 07/30/18 13:21 Dose: 3 ml Famotidine (Pepcid) 40 mg PO HS [facility] Last Admin: 08/02/18 21:23 Dose: 40 mg Folic Acid (Folic Acid) 1 mg PO DAILY [facility] Last Admin: 08/02/18 09:21 Dose: 1 mg Ceftriaxone Sodium (Rocephin 2 Gm Ivpb) 2 gm in 100 mls @ 100 mls/hr IVPB DAILY [facility] PRN Reason: Protocol Last Admin: 08/02/18 09:21 Dose: 100 mls/hr Lactulose (Enulose) 20 gm PO BID [facility] Last Admin: 08/02/18 17:12 Dose: 20 gm Lorazepam (Ativan) 1 mg IVP Q2H PRN; Protocol PRN Reason: Symptoms of alcohol withdrawl Last Admin: 07/31/18 10:19 Dose: 1 mg Lorazepam (Ativan) 0.5 mg IVP Q6H [facility] PRN Reason: Protocol Last Admin: 08/03/18 00:31 Dose: 0.5 mg Multivitamins (Thera Tab) 1 tab PO 0800 [facility] Last Admin: 08/02/18 08:50 Dose: 1 tab Nicotine (Nicoderm Cq) 1 patch TD DAILY [facility] Last Admin: 08/02/18 09:21 Dose: 1 patch Prednisone (Prednisone Tab) 20 mg PO DAILY [facility] Thiamine HCl (Vitamin B1 Tab) 100 mg PO DAILY [facility] Last Admin: 08/02/18 09:21 Dose: 100 mg - Labs Labs: 08/02/18 07:00 08/02/18 08:00 PT 21.3 SECONDS (9.4-12.5) H 07/28/18 07:15 INR 1.83 07/28/18 07:15 APTT 32.8 Seconds (25.1-36.5) 07/28/18 07:15 - Additional Findings Additional findings: - Constitutional Appears: Well - Head Exam Head Exam: ATRAUMATIC, NORMAL INSPECTION, NORMOCEPHALIC - Eye Exam Eye Exam: EOMI, Normal appearance, PERRL Pupil Exam: NORMAL ACCOMODATION, PERRL - ENT Exam ENT Exam: Mucous Membranes Moist, Normal Exam - Neck Exam Neck Exam: Full ROM, Normal Inspection. absent: Lymphadenopathy - Respiratory Exam Respiratory Exam: Clear to Ausculation Bilateral, NORMAL BREATHING PATTERN - Cardiovascular Exam Cardiovascular Exam: REGULAR RHYTHM, +S1, +S2. absent: Murmur - GI/Abdominal Exam GI & Abdominal Exam: Soft, Normal Bowel Sounds. absent: Tenderness - Extremities Exam Extremities Exam: Full ROM, Normal Capillary Refill, Normal Inspection. absent : Joint Swelling, Pedal Edema - Back Exam Back Exam: NORMAL INSPECTION - Neurological Exam Neurological Exam: Alert, Awake, CN II-XII Intact, Normal Gait, Oriented x3 - Psychiatric Exam Psychiatric exam: Normal Affect, Normal Mood - Skin Skin Exam: Dry, Intact, Normal Color, Warm Assessment and Plan - Assessment and Plan (Free Text) Assessment: 48 y/o male with PMH of , pancreatic lesion, alcohol abuse and hepatitis, presented to ED after an episode of LOC and head trauma. Admitted for alcohol withdrawal, liver failure and electrolyte imbalance. Lytes repleted, still having diarrhea, Cdiff study pending Plan: Urosepsis - WBC trending down - continue ceftriaxone 2gm daily - urnine Cx negative - Prescribe Cipro 500 mg at discharge x14 days as per Dr Fletcher Diarrhea - Patient still having 5 bouts overnight, watery, non bloody - C diff antigen ordered. Anemia -Likely due to alcohol abuse -H/H stable -continue monitoring EMILIANO -renal function stable -As per nephrology consult: patient is stable , continue monitoring - Potassium repleted today Liver Failure - Elevated LFT - Continue Lactulose 20 grams PO TID - prednisone 40 PO daily Alcohol Withdrawal - CIWA score 3 - Taper Ativan to [facility] 0.5mg Q6 - Continue thiamine, folate, multivitamin H/O smoking: -Nicotine patch -Alcohol cessation counseling - SCD - Seizure precautions - Fall precautions - PT eval and treat ordered Case reviewed and plan discussed with Dr Monsivais <Codie Monsivais - Last Filed: 08/03/18 16:43> Objective - Vital Signs/Intake and Output Vital Signs (last 24 hours): Temp Pulse Resp BP Pulse Ox 98.5 F 86 20 117/77 99 08/03/18 16:29 08/03/18 16:29 08/03/18 16:29 08/03/18 16:29 08/03/18 16:29 - Medications Medications: Current Medications Albuterol/Ipratropium (Duoneb 3 Mg/0.5 Mg (3 Ml) Ud) 3 ml IH [id number] PRN PRN Reason: Wheezing Last Admin: 07/30/18 13:21 Dose: 3 ml Famotidine (Pepcid) 40 mg PO HS [facility] Last Admin: 08/02/18 21:23 Dose: 40 mg Folic Acid (Folic Acid) 1 mg PO DAILY [facility] Last Admin: 08/03/18 09:09 Dose: 1 mg Ceftriaxone Sodium (Rocephin 2 Gm Ivpb) 2 gm in 100 mls @ 100 mls/hr IVPB DAILY [facility] PRN Reason: Protocol Last Admin: 08/03/18 09:09 Dose: 100 mls/hr Lactulose (Enulose) 20 gm PO DAILY [facility] Lorazepam (Ativan) 1 mg IVP Q2H PRN; Protocol PRN Reason: Symptoms of alcohol withdrawl Last Admin: 07/31/18 10:19 Dose: 1 mg Lorazepam (Ativan) 0.5 mg IVP Q6H [facility] PRN Reason: Protocol Last Admin: 08/03/18 12:01 Dose: 0.5 mg Multivitamins (Thera Tab) 1 tab PO 0800 [facility] Last Admin: 08/03/18 09:09 Dose: 1 tab Nicotine (Nicoderm Cq) 1 patch TD DAILY [facility] Last Admin: 08/03/18 09:09 Dose: 1 patch Prednisone (Prednisone Tab) 20 mg PO DAILY [facility] Last Admin: 08/03/18 09:09 Dose: 20 mg Thiamine HCl (Vitamin B1 Tab) 100 mg PO DAILY [facility] Last Admin: 08/03/18 09:09 Dose: 100 mg - Labs Labs: 08/03/18 08:30 08/03/18 08:30 PT 21.3 SECONDS (9.4-12.5) H 07/28/18 07:15 INR 1.83 07/28/18 07:15 APTT 32.8 Seconds (25.1-36.5) 07/28/18 07:15 Attending/Attestation - Attestation I have personally seen and examined this patient.: Yes I have fully participated in the care of the patient.: Yes I have reviewed all pertinent clinical information, including history, physical exam and plan: Yes Notes (Text): 08/03/18 16:40 48 year old male with past medical history of alcohol abuse, pancreatic tail lesion and alcoholic hepatitis who presented with sepsis secondary to E coli bacteremia/UTI and liver failure. Repeat cultures were negative. Echocardiogram was negative for vegetations. Continue with iv antibiotics as per ID; will need 2 weeks of antibiotics. Case discussed with ID; can switch to po cipro upon discharge. Leukocytosis and diarrhea are improving. CDIF was sent and pending. Lactulose and prednisone doses were decreased. Urology evaluation was appreciated; recommended outpatient follow up. Transaminitis is improving. Will replete and repeat potassium. Patient was counselled on alcohol cessation. He is on tapering ativan for withdrawal symptoms. Continue with multivitamin, folic acid and thiamine. PT recommended JAXSON which patient is refusing. PT follow up requested for d/c planning likely tomorrow as patient is improved. Overall prognosis is poor. Codie Monsivais MD Hospitalist.
[2018-08-03] MEDS: Multivitamin Therapeutic Tab PO SCH (09:09)
[2018-08-03] MEDS: cefTRIAXone 2 GM IN NS 2 GM/100 ML BAG IVPB SCH (09:09)
[2018-08-03 09:23] LABS: BASO # 0.01 K/mm3 (0.0-2.0); BASO % 0.1 % (0.0-3.0); EOS # 0.1 (0.0-0.7); EOS % 0.7 % (1.5-5.0); GRAN # 9.77 (1.4-6.5); GRAN % 76.5 % (50.0-68.0); HEMOGLOBIN 9.8 g/dL (14.0-18.0); LYMPH % 15.6 % (22.0-35.0); MEAN CELL VOLUME 109.4 fl (80.0-105.0); MEAN CORPUSCULAR HEMOGLOBIN 38.4 pg (25.0-35.0); MEAN CORPUSCULAR HGB CONC 35.1 g/dl (31.0-37.0); MEAN PLATELET VOLUME 10.5 fl (7.0-11.0); MONO # 0.9 (0.1-0.6); MONO % 7.1 % (1.0-6.0); RBC 2.55 10^6/uL (3.5-6.1); RED CELL DISTRIBUTION WIDTH 16.6 % (11.5-14.5); WHITE BLOOD COUNT 12.8 10^3/ul (4.5-11.0)
[2018-08-03 09:30] LABS: ALB/GLOB RATIO 0.7 (1.1-1.8); ALBUMIN 2.9 g/dL (3.0-4.8); ALT/SGPT 107 U/L (7-56); AST/SGOT 181 U/L (17-59); BLOOD UREA NITROGEN 17 mg/dL (7-21); CALCIUM 8.6 mg/dL (8.4-10.5); GFR NON-AFRICAN AMERICAN > 60
--- NOTE | 2018-08-03 11:47 | CP.PCM.PN ---
Subjective - Date & Time of Evaluation Date of Evaluation: 08/03/18 Time of Evaluation: 11:45 - Subjective Subjective: Nephrology Consultation Note: Assessment: stable EMILIANO. Hypokalemia, Hypophosphatemia, hypomagnesemia hyponatremia with low urine osmol but high urine Na: likely due to alcohol abuse /beer potomania: IMPROVED HAGMA likely alcoholic and lactic acidosis; RESOLVED Anemia ,abnormal LFT, alcohol abuse hyperbilirubunemia with thrombocytopenia and coagulopathy, GNR sepsis Plan renal function stable na and k improved today w/ supplementation, continue to supplement k as needed continue with thiamine supplementation anemia management as per primary team S: no complaints Physical Examination: General Appearance: comfortable, in no acute respiratory distress Vitals reviewed and noted as below Head; Atraumatic, normocephalic ENT: no ulcers no thrush. Tongue is midline. Oropharynx: no rash or ulcers. EYES: Pupils are equal, round and reactive to light accommodation. Eye muscles and extraocular movement intact. Sclera is icteric. Neck; supple no lymphadenopathy, no thyromegaly or bruit Lungs: Normal respiratory rate/effort. Breath sounds bilateral clear b/l Heart: Normal rate. s1s2 normal. No rub or gallop. Extremities: no edema. No varicose veins Neurological: Patient is awake alert. No focal deficit. Strength bilateral appropriate and equal Skin: jaundiced, warm and dry Abdomen: Abdomen is soft/distended. Bowel sounds +. There is no abdominal tenderness, no guarding/rigidity ? hepatomegaly Psych: flat MSK: no joint tenderness or swelling. Digits normal, no deformity. nails all big : kidney or bladder not palpable Labs/imaging reviewed. Past medical history, past surgical history, family history, social history, allergy reviewed and noted as below Family hx: no hx of CKD. Rest non-contributory Objective - Vital Signs/Intake and Output Vital Signs (last 24 hours): Temp Pulse Resp BP Pulse Ox 98.4 F 78 18 98/66 L 99 08/03/18 06:00 08/03/18 06:00 08/03/18 06:00 08/03/18 06:00 08/03/18 06:00 - Medications Medications: Current Medications Albuterol/Ipratropium (Duoneb 3 Mg/0.5 Mg (3 Ml) Ud) 3 ml IH [id number] PRN PRN Reason: Wheezing Last Admin: 07/30/18 13:21 Dose: 3 ml Famotidine (Pepcid) 40 mg PO HS [facility] Last Admin: 08/02/18 21:23 Dose: 40 mg Folic Acid (Folic Acid) 1 mg PO DAILY [facility] Last Admin: 08/03/18 09:09 Dose: 1 mg Ceftriaxone Sodium (Rocephin 2 Gm Ivpb) 2 gm in 100 mls @ 100 mls/hr IVPB DAILY [facility] PRN Reason: Protocol Last Admin: 08/03/18 09:09 Dose: 100 mls/hr Lactulose (Enulose) 20 gm PO DAILY [facility] Lorazepam (Ativan) 1 mg IVP Q2H PRN; Protocol PRN Reason: Symptoms of alcohol withdrawl Last Admin: 07/31/18 10:19 Dose: 1 mg Lorazepam (Ativan) 0.5 mg IVP Q6H [facility] PRN Reason: Protocol Last Admin: 08/03/18 06:40 Dose: 0.5 mg Multivitamins (Thera Tab) 1 tab PO 0800 [facility] Last Admin: 08/03/18 09:09 Dose: 1 tab Nicotine (Nicoderm Cq) 1 patch TD DAILY [facility] Last Admin: 08/03/18 09:09 Dose: 1 patch Prednisone (Prednisone Tab) 20 mg PO DAILY [facility] Last Admin: 08/03/18 09:09 Dose: 20 mg Thiamine HCl (Vitamin B1 Tab) 100 mg PO DAILY [facility] Last Admin: 08/03/18 09:09 Dose: 100 mg - Labs Labs: 08/03/18 08:30 08/03/18 08:30 PT 21.3 SECONDS (9.4-12.5) H 07/28/18 07:15 INR 1.83 07/28/18 07:15 APTT 32.8 Seconds (25.1-36.5) 07/28/18 07:15
[2018-08-03] MEDS ORDERED: Potassium Chloride 20 mEq ER Tab PO ONE (12:14)
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
--- NOTE | 2018-08-04 06:21 | CP.PCM.PN ---
Objective - Vital Signs/Intake and Output Vital Signs (last 24 hours): Temp Pulse Resp BP Pulse Ox 98.5 F 86 20 117/77 99 08/03/18 16:29 08/03/18 16:29 08/03/18 16:29 18 16:29 08/03/18 16:29 Intake and Output: 08/03/18 08/04/18 18:59 06:59 Intake Total 1320 Output Total 1000 Balance 320 - Medications Medications: Current Medications Albuterol/Ipratropium (Duoneb 3 Mg/0.5 Mg (3 Ml) Ud) 3 ml IH [id number] PRN PRN Reason: Wheezing Last Admin: 07/30/18 13:21 Dose: 3 ml Famotidine (Pepcid) 40 mg PO HS [facility] Last Admin: 08/03/18 21:13 Dose: 40 mg Folic Acid (Folic Acid) 1 mg PO DAILY [facility] Last Admin: 08/03/18 09:09 Dose: 1 mg Ceftriaxone Sodium (Rocephin 2 Gm Ivpb) 2 gm in 100 mls @ 100 mls/hr IVPB DAILY [facility] PRN Reason: Protocol Last Admin: 08/03/18 09:09 Dose: 100 mls/hr Lactulose (Enulose) 20 gm PO DAILY [facility] Lorazepam (Ativan) 1 mg IVP Q2H PRN; Protocol PRN Reason: Symptoms of alcohol withdrawl Last Admin: 07/31/18 10:19 Dose: 1 mg Lorazepam (Ativan) 0.5 mg IVP Q6H [facility] PRN Reason: Protocol Last Admin: 08/04/18 05:21 Dose: 0.5 mg Multivitamins (Thera Tab) 1 tab PO 0800 [facility] Last Admin: 08/03/18 09:09 Dose: 1 tab Nicotine (Nicoderm Cq) 1 patch TD DAILY [facility] Last Admin: 08/03/18 09:09 Dose: 1 patch Prednisone (Prednisone Tab) 20 mg PO DAILY [facility] Last Admin: 08/03/18 09:09 Dose: 20 mg Thiamine HCl (Vitamin B1 Tab) 100 mg PO DAILY [facility] Last Admin: 08/03/18 09:09 Dose: 100 mg - Labs Labs: 08/03/18 08:30 08/03/18 08:30 PT 21.3 SECONDS (9.4-12.5) H 07/28/18 07:15 INR 1.83 07/28/18 07:15 APTT 32.8 Seconds (25.1-36.5) 07/28/18 07:15
[2018-08-04 06:24] LABS: BASO # 0.02 K/mm3 (0.0-2.0); BASO % 0.1 % (0.0-3.0); EOS # 0.1 (0.0-0.7); EOS % 0.7 % (1.5-5.0); GRAN # 10.32 (1.4-6.5); GRAN % 76.6 % (50.0-68.0); HEMOGLOBIN 10.1 g/dL (14.0-18.0); LYMPH # 2.3 (1.2-3.4); LYMPH % 17.3 % (22.0-35.0); MEAN CELL VOLUME 110.3 fl (80.0-105.0); MEAN CORPUSCULAR HEMOGLOBIN 38.7 pg (25.0-35.0); MEAN CORPUSCULAR HGB CONC 35.1 g/dl (31.0-37.0); MEAN PLATELET VOLUME 10.5 fl (7.0-11.0); MONO # 0.7 (0.1-0.6); MONO % 5.3 % (1.0-6.0); RBC 2.61 10^6/uL (3.5-6.1); RED CELL DISTRIBUTION WIDTH 16.6 % (11.5-14.5); WHITE BLOOD COUNT 13.5 10^3/ul (4.5-11.0)
[2018-08-04 06:52] LABS: ALB/GLOB RATIO 0.8 (1.1-1.8); ALT/SGPT 117 U/L (7-56); AST/SGOT 192 U/L (17-59); BLOOD UREA NITROGEN 19 mg/dL (7-21); CALCIUM 8.6 mg/dL (8.4-10.5); GFR NON-AFRICAN AMERICAN > 60
[2018-08-04 07:46] VITALS: PULSE 77
[2018-08-04] MEDS: Multivitamin Therapeutic Tab PO SCH (10:00)
[2018-08-04] MEDS: cefTRIAXone 2 GM IN NS 2 GM/100 ML BAG IVPB SCH (10:00)
--- NOTE | 2018-08-04 12:47 | CP.PCM.PN ---
Subjective - Date & Time of Evaluation Date of Evaluation: 08/04/18 Time of Evaluation: 10:50 - Subjective Subjective: No fevers, not in distress, no abdominal pain, no nausea, no diarrhea, eating ok. Objective - Vital Signs/Intake and Output Vital Signs (last 24 hours): Temp Pulse Resp BP Pulse Ox 98.4 F 77 18 110/72 100 08/04/18 07:45 08/04/18 07:45 08/04/18 07:45 08/04/18 07:45 08/04/18 07:45 Intake and Output: 08/04/18 08/04/18 06:59 18:59 Intake Total 120 Output Total 500 Balance -380 - Medications Medications: Current Medications Albuterol/Ipratropium (Duoneb 3 Mg/0.5 Mg (3 Ml) Ud) 3 ml IH [id number] PRN PRN Reason: Wheezing Last Admin: 07/30/18 13:21 Dose: 3 ml Famotidine (Pepcid) 40 mg PO HS [facility] Last Admin: 08/03/18 21:13 Dose: 40 mg Folic Acid (Folic Acid) 1 mg PO DAILY [facility] Last Admin: 08/03/18 09:09 Dose: 1 mg Ceftriaxone Sodium (Rocephin 2 Gm Ivpb) 2 gm in 100 mls @ 100 mls/hr IVPB DAILY [facility] PRN Reason: Protocol Last Admin: 08/03/18 09:09 Dose: 100 mls/hr Lactulose (Enulose) 20 gm PO DAILY [facility] Lorazepam (Ativan) 1 mg IVP Q2H PRN; Protocol PRN Reason: Symptoms of alcohol withdrawl Last Admin: 07/31/18 10:19 Dose: 1 mg Lorazepam (Ativan) 0.5 mg IVP Q6H [facility] PRN Reason: Protocol Last Admin: 08/04/18 05:21 Dose: 0.5 mg Multivitamins (Thera Tab) 1 tab PO 0800 [facility] Last Admin: 08/03/18 09:09 Dose: 1 tab Nicotine (Nicoderm Cq) 1 patch TD DAILY [facility] Last Admin: 08/03/18 09:09 Dose: 1 patch Prednisone (Prednisone Tab) 20 mg PO DAILY [facility] Last Admin: 08/03/18 09:09 Dose: 20 mg Thiamine HCl (Vitamin B1 Tab) 100 mg PO DAILY [facility] Last Admin: 08/03/18 09:09 Dose: 100 mg - Labs Labs: 08/04/18 05:30 08/04/18 05:30 PT 21.3 SECONDS (9.4-12.5) H 07/28/18 07:15 INR 1.83 07/28/18 07:15 APTT 32.8 Seconds (25.1-36.5) 07/28/18 07:15 - Constitutional Appears: No Acute Distress, Chronically Ill - Head Exam Head Exam: NORMAL INSPECTION - Eye Exam Eye Exam: Scleral icterus - ENT Exam ENT Exam: Mucous Membranes Moist - Neck Exam Neck Exam: absent: Meningismus - Respiratory Exam Respiratory Exam: Decreased Breath Sounds - Cardiovascular Exam Cardiovascular Exam: +S1, +S2 - GI/Abdominal Exam GI & Abdominal Exam: Soft. absent: Tenderness Assessment and Plan - Assessment and Plan (Free Text) Plan: Assessment severe sepsis S/P acute renal failure due to E. coli bacteremia, probably due to UTI in this patient with severe acute alcoholic hepatitis, clinically improving acute renal failure chronic ethanol abuse pancreatic tail lesion Plan continue Rocephin since the blood and urine cx are showing watson-sensitive E. coli ; repeat blood cx are negative and 2D echo is negative for vegetations - plan for 2 weeks of antibiotics (Day 13 today) - can be switched to PO Ciprofloxacin to complete the 14 day course continue systemic steroids for the alcoholic hepatitis as per GI will continue to monitor clinically HIV test is non-reactive overall prognosis is poor
--- NOTE | 2018-08-04 15:18 | CP.PCM.PN ---
Subjective - Date & Time of Evaluation Date of Evaluation: 08/04/18 Time of Evaluation: 15:17 - Subjective Subjective: Nephrology Consultation Note: Assessment: stable EMILIANO. Hypokalemia, Hypophosphatemia, hypomagnesemia: RESOLVED hyponatremia with low urine osmol but high urine Na: likely due to alcohol abuse /beer potomania: IMPROVED HAGMA likely alcoholic and lactic acidosis; RESOLVED Anemia ,abnormal LFT, alcohol abuse hyperbilirubunemia with thrombocytopenia and coagulopathy, GNR sepsis Plan supplement K as needed continue with thiamine supplementation anemia management as per primary team repeat urine Na/Osmol reviewed. continue with oral fluid restriction to 1000 ml/ day. not a candidate for samsca due to hepatic dysfunction Dose meds/antibiotics for normal GFR. Glycemic control. pt need lifestyle modifications, need to abstain from alcohol abuse. Further work up/management as per primary team Thanks for allowing me to participate in care of your patient. Please call if any Qs. had d/w team Dr Herberth Eckert Office: [phone] Reason for consult: hypokalemia, EMILIANO and hyponatremia source of info: EMR HPI: Pt is a 48 year old male with hx of alcohol abuse came with pain abdomen and found to have severe jaundice with electrolytes abnormalities and EMILIANO hence renal consulted. he feels sick at this time. denies CP/SB. had episode of vomitting and loose stool. admits to daily etoh and poor oral intake. denies urine complaints ROS: pt awake. denies CP/SOB. no urine complaints. has loose stool Physical Examination: General Appearance: comfortable, in no acute respiratory distress, better appearing Vitals reviewed and noted as below Head; Atraumatic, normocephalic ENT: no ulcers no thrush. Tongue is midline. Oropharynx: no rash or ulcers. EYES: Pupils are equal, round and reactive to light accommodation. Eye muscles and extraocular movement intact. Sclera is icteric. Neck; supple no lymphadenopathy, no thyromegaly or bruit Lungs: Normal respiratory rate/effort. Breath sounds bilateral clear b/l Heart: Normal rate. s1s2 normal. No rub or gallop. Extremities: no edema. No varicose veins Neurological: Patient is awake alert. No focal deficit. Strength bilateral appropriate and equal Skin: Warm and dry. Normal turgor. No rash. Palpitation: Normal elasticity for age. grossly lemon yellow color. few spider angioma on Rt upper chest Abdomen: Abdomen is soft/distended. Bowel sounds +. There is no abdominal tenderness, no guarding/rigidity ? hepatomegaly Psych: limited insight. flat affect MSK: no joint tenderness or swelling. Digits normal, no deformity. nails all big : kidney or bladder not palpable Labs/imaging reviewed. Past medical history, past surgical history, family history, social history, allergy reviewed and noted as below Family hx: no hx of CKD. Rest non-contributory Objective - Vital Signs/Intake and Output Vital Signs (last 24 hours): Temp Pulse Resp BP Pulse Ox 98.4 F 77 18 110/72 100 08/04/18 07:45 08/04/18 07:45 08/04/18 07:45 08/04/18 07:45 08/04/18 07:45 Intake and Output: 08/04/18 08/04/18 06:59 18:59 Intake Total 120 Output Total 500 Balance -380 - Medications Medications: Current Medications Albuterol/Ipratropium (Duoneb 3 Mg/0.5 Mg (3 Ml) Ud) 3 ml IH [id number] PRN PRN Reason: Wheezing Last Admin: 07/30/18 13:21 Dose: 3 ml Famotidine (Pepcid) 40 mg PO HS VÍCTOR Last Admin: 08/03/18 21:13 Dose: 40 mg Folic Acid (Folic Acid) 1 mg PO DAILY VÍCTOR Last Admin: 08/04/18 09:59 Dose: 1 mg Ceftriaxone Sodium (Rocephin 2 Gm Ivpb) 2 gm in 100 mls @ 100 mls/hr IVPB DAILY VÍCTOR PRN Reason: Protocol Last Admin: 08/04/18 10:00 Dose: 100 mls/hr Lactulose (Enulose) 20 gm PO DAILY VÍCTOR Last Admin: 08/04/18 10:00 Dose: 20 gm Lorazepam (Ativan) 1 mg IVP Q2H PRN; Protocol PRN Reason: Symptoms of alcohol withdrawl Last Admin: 07/31/18 10:19 Dose: 1 mg Lorazepam (Ativan) 0.5 mg IVP Q6H VÍCTOR PRN Reason: Protocol Last Admin: 08/04/18 12:52 Dose: 0.5 mg Multivitamins (Thera Tab) 1 tab PO 0800 [facility] Last Admin: 08/04/18 10:00 Dose: 1 tab Nicotine (Nicoderm Cq) 1 patch TD DAILY [facility] Last Admin: 08/04/18 10:00 Dose: 1 patch Prednisone (Prednisone Tab) 20 mg PO DAILY [facility] Last Admin: 08/04/18 09:59 Dose: 20 mg Thiamine HCl (Vitamin B1 Tab) 100 mg PO DAILY [facility] Last Admin: 08/04/18 10:00 Dose: 100 mg - Labs Labs: 08/04/18 05:30 08/04/18 05:30 PT 21.3 SECONDS (9.4-12.5) H 07/28/18 07:15 INR 1.83 07/28/18 07:15 APTT 32.8 Seconds (25.1-36.5) 07/28/18 07:15
[2018-08-04 16:39] VITALS: BP 115/74; RESP 20; TEMP 98.9; O2SAT 99
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
== END 2018-08-04 19:01 | disposition home or self-care (01) | DRG 584 ==
LOC: ED 09:48 → ERH 12:07 → ICU 17:03 → 3RNO 07-28 08:47
PROVIDERS: ADMIT Internal Medicine; ATTEND Internal Medicine
DX: A41.51 Sepsis due to Escherichia coli [E. coli] (principal); K72.00 Acute and subacute hepatic failure without coma; N17.9 Acute kidney failure, unspecified; N39.0 Urinary tract infection, site not specified; E87.6 Hypokalemia; F10.239 Alcohol dependence with withdrawal, unspecified; E87.2 Acidosis; J44.9 Chronic obstructive pulmonary disease, unspecified; E87.1 Hypo-osmolality and hyponatremia; D69.6 Thrombocytopenia, unspecified; R65.20 Severe sepsis without septic shock; Y90.5 Blood alcohol level of 100-119 mg/100 ml; E86.0 Dehydration; E83.42 Hypomagnesemia; K70.10 Alcoholic hepatitis without ascites; E78.00 Pure hypercholesterolemia, unspecified; E83.39 Other disorders of phosphorus metabolism; D64.9 Anemia, unspecified; D68.9 Coagulation defect, unspecified; K21.9 Gastro-esophageal reflux disease without esophagitis; K86.9 Disease of pancreas, unspecified; F17.210 Nicotine dependence, cigarettes, uncomplicated; Z59.0 Homelessness

== ENCOUNTER 2018-08-07 17:31 | Inpatient (IN) | payer MEDICAID ==
[2018-08-07 17:50] VITALS: BMI 25.0
[2018-08-07] MEDS ORDERED: Sodium Chloride 0.9% 1,000 ML IV STA (17:55)
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
[2018-08-07 18:20] LABS: VENOUS BLOOD GAS BASE EXCESS -13.9 mmol/L (0.0-2.0); VENOUS BLOOD GAS PO2 93 mm/Hg (30-55); VENOUS BLOOD PH 7.21 (7.32-7.43)
[2018-08-07 18:26] LABS: BASO # 0.01 K/mm3 (0.0-2.0); BASO % 0.1 % (0.0-3.0); GRAN # 12.41 (1.4-6.5); GRAN % 78.2 % (50.0-68.0); HEMOGLOBIN 10.7 g/dL (14.0-18.0); LYMPH # 2.7 (1.2-3.4); LYMPH % 17.3 % (22.0-35.0); MEAN CELL VOLUME 113.4 fl (80.0-105.0); MEAN CORPUSCULAR HEMOGLOBIN 38.8 pg (25.0-35.0); MEAN CORPUSCULAR HGB CONC 34.2 g/dl (31.0-37.0); MEAN PLATELET VOLUME 10.2 fl (7.0-11.0); MONO # 0.7 (0.1-0.6); MONO % 4.4 % (1.0-6.0); RBC 2.76 10^6/uL (3.5-6.1); RED CELL DISTRIBUTION WIDTH 15.2 % (11.5-14.5); WHITE BLOOD COUNT 15.9 10^3/ul (4.5-11.0)
[2018-08-07 18:43] LABS: ALB/GLOB RATIO 0.9 (1.1-1.8); ALBUMIN 3.9 g/dL (3.0-4.8); ALT/SGPT 284 U/L (7-56); AST/SGOT 485 U/L (17-59); BLOOD UREA NITROGEN 9 mg/dL (7-21); CALCIUM 9.3 mg/dL (8.4-10.5); GFR NON-AFRICAN AMERICAN > 60
[2018-08-07] MEDS ORDERED: Piperacill/Tazo 4.5gm in NS 4.5 GM/100 ML BAG IVPB STA (18:49)
[2018-08-07] MEDS ORDERED: Vancomycin 1gm in NS 250ml 1 GM/250 ML BAG IVPB STA (18:49)
--- NOTE | 2018-08-07 18:52 | CT ---
Date of service: 08/07/2018 PROCEDURE: CT HEAD WITHOUT CONTRAST. HISTORY: seizure COMPARISON: Noncontrast head CT performed 07/23/18 TECHNIQUE: Axial computed tomography images were obtained through the head/brain without intravenous contrast. Radiation dose: Total exam DLP = 811.62 mGy-cm. This CT exam was performed using one or more of the following dose reduction techniques: Automated exposure control, adjustment of the mA and/or kV according to patient size, and/or use of iterative reconstruction technique. FINDINGS: HEMORRHAGE: No intracranial hemorrhage. BRAIN: Diffuse atrophy with prominence of the ventricles and sulci noted. No mass effect or edema. Mild scattered white matter hypodensities, which are nonspecific, but often seen with chronic microvascular ischemic disease. Please note that MRI with diffusion imaging is more sensitive in the detection of acute ischemic event. VENTRICLES: No hydrocephalus. CALVARIUM: Unremarkable. PARANASAL SINUSES: Unremarkable as visualized. No significant inflammatory changes. MASTOID AIR CELLS: Unremarkable as visualized. No inflammatory changes. OTHER FINDINGS: None. IMPRESSION: No acute intracranial pathology identified. Findings as above.
[2018-08-07] MEDS ORDERED: Multivitamin (MVI) 10 ML, Thiamine 100 MG, Folic Acid 1 MG in Sodium Chloride 0.9% 1,00... IV ONE (20:26)
[2018-08-07] MEDS ORDERED: Potassium Chloride 20 mEq ER Tab PO STA (20:55)
[2018-08-07] MEDS ORDERED: Albuterol-Ipratrop 3 mg / 0.5 (3 ml) UD IH PRN (20:56)
[2018-08-07 22:42] LABS: VENOUS BLOOD GAS BASE EXCESS 2.2 mmol/L (0.0-2.0); VENOUS BLOOD GAS PO2 202 mm/Hg (30-55); VENOUS BLOOD PH 7.49 (7.32-7.43)
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
--- NOTE | 2018-08-07 23:34 | PCM.SEPTIC ---
<Jamie Arellano - Last Filed: 08/07/18 23:32> Sepsis Progress Note - Reassessment Type Date of Evaluation: 08/07/18 Time of Evaluation: 23:32 Reassessment Type: Non-invasive reassessment - Non Invasive Reassessment Were the most recent vital sign reviewed: Yes Vital Sign (Latest): Temp Pulse Resp BP Pulse Ox 98.2 F 92 H 19 132/82 98 08/07/18 22:54 08/07/18 22:54 08/07/18 22:54 08/07/18 22:54 08/07/18 20:35 Cardiovascular: Yes: Tachycardia, Other (+s1, +s2) Respiratory: Yes: Normal Breath Sounds. No: Crackles, Rales, Rhonchi, Wheezing , Respiratory Distress Capillary Refill: Normal (Less than 2 sec) Pulses: Normal Radial, Normal Dorsalis Pedis Skin: Jaundice - Invasive Reassessment (complete 2 of 4) Was a Central Venous Pressure Measurement obtained within 6 Hours after the presentation of septic shock: No Was a central venous oxygen measurement obtained within 6 hours after the presentation of septic shock: No Was a bedside cardiovascular ultrasound performed within 6 hours after the presentation of septic shock: No Was a passive leg raise performed or was a fluid challenge performed within 6 hrs of the initial fluid bolus: No <Getachew Brunner - Last Filed: 08/08/18 03:31> Sepsis Progress Note - Non Invasive Reassessment Vital Sign (Latest): Temp Pulse Resp BP Pulse Ox 98.2 F 92 H 19 133/72 100 08/08/18 00:01 08/08/18 00:01 08/08/18 00:01 08/08/18 00:01 08/08/18 00:01 Attending/Attestation - Attestation I have personally seen and examined this patient.: Yes I have fully participated in the care of the patient.: Yes I have reviewed all pertinent clinical information, including history, physical exam and plan: Yes
[2018-08-08] MEDS: Piperacillin/Tazobact 3.375 gm 100 ML IVPB SCH ×2 (00:16→05:18)
[2018-08-08] MEDS: Pantoprazole 40 mg EC Tab PO SCH (05:18)
[2018-08-08 07:20] LABS: EOS % 0.4 % (1.5-5.0); GRAN # 5.93 (1.4-6.5); HEMOGLOBIN 9.3 g/dL (14.0-18.0); LYMPH # 1.4 (1.2-3.4); LYMPH % 17.5 % (22.0-35.0); MEAN CELL VOLUME 112.2 fl (80.0-105.0); MEAN CORPUSCULAR HGB CONC 33.8 g/dl (31.0-37.0); MEAN PLATELET VOLUME 9.7 fl (7.0-11.0); MONO # 0.5 (0.1-0.6); MONO % 6.1 % (1.0-6.0); RBC 2.45 10^6/uL (3.5-6.1); RED CELL DISTRIBUTION WIDTH 15.2 % (11.5-14.5); WHITE BLOOD COUNT 7.8 10^3/ul (4.5-11.0)
[2018-08-08 07:34] LABS: ALB/GLOB RATIO 0.8 (1.1-1.8); ALBUMIN 2.7 g/dL (3.0-4.8); ALT/SGPT 216 U/L (7-56); AST/SGOT 327 U/L (17-59); BLOOD UREA NITROGEN 11 mg/dL (7-21); CALCIUM 8.1 mg/dL (8.4-10.5); GFR NON-AFRICAN AMERICAN > 60; INR 1.29; PROTHROMBIN TIME 14.9 SECONDS (9.4-12.5)
[2018-08-08 07:35] LABS: VENOUS BLOOD GAS BASE EXCESS -0.3 mmol/L (0.0-2.0); VENOUS BLOOD GAS PO2 84 mm/Hg (30-55); VENOUS BLOOD PH 7.46 (7.32-7.43)
[2018-08-08 07:49] LABS: BARBITURATES, UR NEGATIVE (NEGATIVE); BENZODIAZEPINES, UR NEGATIVE (NEGATIVE); OPIATES, UR NEGATIVE (NEGATIVE); PHENCYCLIDINE, UR NEGATIVE (NEGATIVE)
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
[2018-08-08 08:04] LABS: URINE BILIRUBIN NEGATIVE (NEGATIVE); URINE BLOOD NEGATIVE (NEGATIVE); URINE GLUCOSE (UA) NEGATIVE (NEGATIVE); URINE LEUKOCYTE ESTERASE NEGATIVE Leu/uL (NEGATIVE); URINE PROTEIN NEGATIVE mg/dL (<30 mg/dL); URINE UROBILINOGEN 0.2 E.U./dL (<1 E.U./dL)
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
[2018-08-08 08:10] LABS: URINE APPEARANCE CLEAR (CLEAR); URINE COLOR YELLOW (YELLOW)
[2018-08-08] MEDS: MethylPREDNISolone 40 mg Vial IVP SCH (09:02)
--- NOTE | 2018-08-08 09:56 | RAD ---
HISTORY: sob COMPARISON: Chest x-ray performed 07/30/18 TECHNIQUE: Chest, one view. FINDINGS: Examination limited by habitus, hypoinflation, and patient obliquity. LUNGS: Medial lower lobe infiltrates/atelectasis. PLEURA: No significant pleural effusion identified. No definite pneumothorax . CARDIOVASCULAR: Heart size appears top normal. Bilateral hilar prominence. OSSEOUS STRUCTURES: Degenerative changes. Right humeral head appears high-riding, possibly positional. VISUALIZED UPPER ABDOMEN: Unremarkable. OTHER FINDINGS: None. IMPRESSION: Medial lower lobe atelectasis/infiltrates. Bilateral hilar prominence. Hypoinflation. Right humeral head appears high-riding, possibly positional. Correlate clinically.
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
--- NOTE | 2018-08-08 19:24 | CP.PCM.PN ---
Subjective - Date & Time of Evaluation Date of Evaluation: 08/08/18 Time of Evaluation: 07:00 - Subjective Subjective: Pt seen and examined this morning. Denies chest pain, SOB, or abdominal pain. Objective - Vital Signs/Intake and Output Vital Signs (last 24 hours): Temp Pulse Resp BP Pulse Ox 98.2 F 71 18 113/71 95 08/08/18 12:00 08/08/18 12:00 08/08/18 12:00 08/08/18 12:00 08/08/18 06:00 Intake and Output: 08/08/18 08/09/18 18:59 06:59 Intake Total 1080 Output Total 3000 Balance -1920 - Medications Medications: Current Medications Albuterol/Ipratropium (Duoneb 3 Mg/0.5 Mg (3 Ml) Ud) 3 ml IH [id number] PRN PRN Reason: Shortness of Breath Lorazepam (Ativan) 2 mg IVP Q4 VÍCTOR PRN Reason: Protocol Last Admin: 08/08/18 18:17 Dose: 2 mg Lorazepam (Ativan) 1 mg IVP Q2 PRN; Protocol PRN Reason: Symptoms of alcohol withdrawl Last Admin: 08/08/18 14:50 Dose: 1 mg Methylprednisolone (Solu-Medrol) 40 mg IVP DAILY VÍCTOR Last Admin: 08/08/18 09:02 Dose: 40 mg Ondansetron HCl (Zofran Inj) 4 mg IVP Q4H PRN PRN Reason: Nausea/Vomiting Last Admin: 08/08/18 09:01 Dose: 4 mg Pantoprazole Sodium (Protonix Ec Tab) 40 mg PO 0600 [facility] Last Admin: 08/08/18 05:18 Dose: 40 mg - Labs Labs: 08/08/18 06:30 08/08/18 06:30 PT 14.9 SECONDS (9.4-12.5) H 08/08/18 06:30 INR 1.29 08/08/18 06:30 - Constitutional Appears: No Acute Distress - Head Exam Head Exam: ATRAUMATIC, NORMOCEPHALIC - Eye Exam Eye Exam: Scleral icterus - ENT Exam ENT Exam: Mucous Membranes Moist - Respiratory Exam Respiratory Exam: Clear to Ausculation Bilateral, NORMAL BREATHING PATTERN - Cardiovascular Exam Cardiovascular Exam: RRR - GI/Abdominal Exam GI & Abdominal Exam: Soft - Extremities Exam Extremities Exam: absent: Pedal Edema - Skin Additional comments: jaundiced Assessment and Plan - Assessment and Plan (Free Text) Assessment: This is a 48 yo male with PMH extensive EtOH abuse, pancreatic tail lesion who was BIBA for evaluation of seizure activity prior to arrival. Pt was recently admitted on 07/23/18 for abdominal pain. Plan: Alcohol withdrawal, s/p seizure activity - telemetry - CIWA 3 - ativan 1 mg IVP Q2H PRN agitation - fall, seizure and aspiration precautions - ammonia 37 - neurology, likely due to alcohol intoxication, no indication for anti-seizure meds, recommend social work/ case management - continue to monitor Sepsis - lactate is 2.0 - Solumedrol 40 mg IVP daily - duonebs q4prn - procalcitonin: 0.32 - blood culture: no growth after 24 hours - infectious disease: no antibiotics indicated at this time Transaminitis - AST:320, improving - ALT: 210, improving - ALP: 170, improving - Tbili: 5.6, improving - Zofran PRN nausea - gastroenterology consulted Hypokalemia - K 3.2 - replete PRN Macrocytic anemia - will monitor - Hgb 9.3 PPX/Diet - Protonix - SCDs - HHD Pt seen, examined, assessment and plan discussed with Dr Ananya Abbott PGY1
--- NOTE | 2018-08-08 21:06 | CARD ---
APPROVED REPORT Date of service: 08/07/2018 EKG Measurement Heart [id number] <Conclusion> Sinus tachycardia Nonspecific ST abnormality Abnormal ECG
[2018-08-09] MEDS: Pantoprazole 40 mg EC Tab PO SCH (05:07)
--- NOTE | 2018-08-09 07:15 | CP.PCM.PN ---
<RenatesarahjoeSeamus - Last Filed: 08/09/18 10:19> Subjective - Date & Time of Evaluation Date of Evaluation: 08/09/18 Time of Evaluation: 07:09 - Subjective Subjective: GI Fellow PGY4, Patient is tolerating diet. Had yellow BM this AM. He feels "foggy", does not know the year. Objective - Vital Signs/Intake and Output Vital Signs (last 24 hours): Temp Pulse Resp BP Pulse Ox 97.9 F 77 18 112/55 L 99 08/09/18 06:00 08/09/18 06:00 08/09/18 06:00 08/09/18 06:00 08/09/18 06:00 Intake and Output: 08/09/18 08/09/18 06:59 18:59 Intake Total 480 Output Total 1300 Balance -820 - Medications Medications: Current Medications Albuterol/Ipratropium (Duoneb 3 Mg/0.5 Mg (3 Ml) Ud) 3 ml IH [id number] PRN PRN Reason: Shortness of Breath Lorazepam (Ativan) 2 mg IVP Q4 VÍCTOR PRN Reason: Protocol Last Admin: 08/09/18 03:16 Dose: 2 mg Lorazepam (Ativan) 1 mg IVP Q2 PRN; Protocol PRN Reason: Symptoms of alcohol withdrawl Last Admin: 08/08/18 14:50 Dose: 1 mg Methylprednisolone (Solu-Medrol) 40 mg IVP DAILY [facility] Last Admin: 08/08/18 09:02 Dose: 40 mg Ondansetron HCl (Zofran Inj) 4 mg IVP Q4H PRN PRN Reason: Nausea/Vomiting Last Admin: 08/08/18 09:01 Dose: 4 mg Pantoprazole Sodium (Protonix Ec Tab) 40 mg PO 0600 [facility] Last Admin: 08/09/18 05:07 Dose: 40 mg - Labs Labs: 08/08/18 06:30 08/08/18 06:30 PT 14.9 SECONDS (9.4-12.5) H 08/08/18 06:30 INR 1.29 08/08/18 06:30 - Constitutional Appears: Non-toxic, No Acute Distress, Chronically Ill - Head Exam Head Exam: NORMAL INSPECTION - Eye Exam Eye Exam: Scleral icterus - ENT Exam ENT Exam: Mucous Membranes Moist - Respiratory Exam Respiratory Exam: Clear to Ausculation Bilateral, NORMAL BREATHING PATTERN - Cardiovascular Exam Cardiovascular Exam: REGULAR RHYTHM, +S1, +S2 - GI/Abdominal Exam GI & Abdominal Exam: Soft, Normal Bowel Sounds. absent: Tenderness - Extremities Exam Extremities Exam: Full ROM - Neurological Exam Neurological Exam: Alert, Awake Additional comments: +Asterixis - Psychiatric Exam Psychiatric exam: Normal Affect, Normal Mood - Skin Skin Exam: Dry, Normal Color Assessment and Plan - Assessment and Plan (Free Text) Assessment: 48M with extensive etoh history. #Alcoholic Hepatitis - 07/28/18 MELD 27, DF 60. Now, DF 16 and MELD 16 #Pancreatic mass - previously found non-diagnostic, 4cm now, previously 2.5cm. #Seizure #Acute metabolic encephalopathy #Homeless #Chronic anemia #Weight loss #Non-compliance PLAN: -Liver test have actually improved since last admission 07/28/18. Steroids not indicated at this time. Not a candidate for liver Tx. -Continue supportive care and treatment of seizures. -Ammonia elevated and patient has some disorientation wtih +asterixis, will start lactulose and titrate to 2 soft BMs per day. -Continue PPI -Recommend CIWA protocol, ativan as needed. Recommend short acting benzos in setting of severe liver disease. -Regarding pancreatic mass. It appears it has enlarged. This could be pancreatic pseudocyst vs malignancy. The EUS/FNA was non-diagnostic on 11/03. Repeat EUS/FNA should be done to r/o malignancy. The absolute earliest this could be done is Saturday with Dr. Hickey. Discussed with primary team, awaiting discharge planning. -Will sign-off at this time. If primary team would like to evaluate pancreatic mass further with EUS/FNA in this patient, please consult Dr. Hickey. He is aware of patient. <Terence Perdue - Last Filed: 08/09/18 13:28> Objective - Vital Signs/Intake and Output Vital Signs (last 24 hours): Temp Pulse Resp BP Pulse Ox 97.9 F 112 H 18 112/55 L 99 08/09/18 06:00 08/09/18 10:00 08/09/18 06:00 08/09/18 06:00 08/09/18 06:00 Intake and Output: 08/09/18 08/09/18 06:59 18:59 Intake Total 480 Output Total 1300 Balance -820 - Medications Medications: Current Medications Albuterol/Ipratropium (Duoneb 3 Mg/0.5 Mg (3 Ml) Ud) 3 ml IH [id number] PRN PRN Reason: Shortness of Breath Lactulose (Enulose) 10 gm PO DAILY [facility] Last Admin: 08/09/18 09:31 Dose: 10 gm Lorazepam (Ativan) 2 mg IVP Q4 VÍCTOR PRN Reason: Protocol Last Admin: 08/09/18 13:07 Dose: 2 mg Lorazepam (Ativan) 1 mg IVP Q2 PRN; Protocol PRN Reason: Symptoms of alcohol withdrawl Last Admin: 08/08/18 14:50 Dose: 1 mg Methylprednisolone (Solu-Medrol) 40 mg IVP DAILY [facility] Last Admin: 08/09/18 09:31 Dose: 40 mg Ondansetron HCl (Zofran Inj) 4 mg IVP Q4H PRN PRN Reason: Nausea/Vomiting Last Admin: 08/08/18 09:01 Dose: 4 mg Pantoprazole Sodium (Protonix Ec Tab) 40 mg PO 0600 [facility] Last Admin: 08/09/18 05:07 Dose: 40 mg - Labs Labs: 08/08/18 06:30 08/08/18 06:30 PT 14.9 SECONDS (9.4-12.5) H 08/08/18 06:30 INR 1.29 08/08/18 06:30 Attending/Attestation - Attestation I have personally seen and examined this patient.: Yes I have fully participated in the care of the patient.: Yes I have reviewed all pertinent clinical information, including history, physical exam and plan: Yes Notes (Text): 08/09/18 13:27 I have seen and examined patient with GI fellow. Agree with above documentation with the following additions. In brief, this is a 48 year old male with history of ETOH abuse, chronic pancreatitis with tail lesion who presents to hospital following witnessed seizure activity. He reports ongoing ETOH abuse, last drink yesterday. Bilirubin downtrending. Diet as tolerated. Alcohol cessation. EUS performed for pancreatic tail lesion had non-diagnostic FNA results. Case was discussed with Dr. Hickey who suggests patient undergo repeat testing, particularly given ongoing weight loss. If patient is still in the hospital next week, team to consult Dr Hickey for EUS. Will sign off.
[2018-08-09] MEDS: MethylPREDNISolone 40 mg Vial IVP SCH (09:31)
--- NOTE | 2018-08-09 11:19 | PN ---
DATE: 08/09/2018 SUBJECTIVE: The patient is seen earlier today in 272, bed one. No fevers and no chills. No nausea or vomiting. OBJECTIVE: VITAL SIGNS: On exam, temperature is 98, blood pressure is 112/50, respiratory rate of 18. HEENT: Examination is unremarkable. NECK: Supple. LUNGS: Have decreased breath sounds. HEART: Normal S1, S2. ABDOMEN: Soft, nontender. DATA: Laboratory examination reveals the patient's white count is 7.8, hemoglobin of 9 and the creatinine is 0.5. Urinalysis is noted and toxicology is noted. Microbiology reveals the blood cultures have no growth. ASSESSMENT AND PLAN: This is a 48-year-old with past medical history of alcohol abuse, pancreatic tail lesion brought in by ambulance for evaluation of witnessed seizures and activity. The patient is with SIRS, systemic inflammatory response syndrome, alcoholic hepatitis, history of alcohol abuse. Currently, normal white count of 7.8. Blood cultures negative. No fevers with history of hypertension, diabetes, bipolar, depression, alcohol use, asthma and currently off of antibiotics. The patient is on Solu-Medrol. We will follow with you. Bill Mcnulty MD
--- NOTE | 2018-08-09 12:42 | CP.PCM.PN ---
Subjective - Date & Time of Evaluation Date of Evaluation: 08/09/18 Time of Evaluation: 07:00 - Subjective Subjective: Pt seen and examined. Pt reports chills. Denies fevers. Objective - Vital Signs/Intake and Output Vital Signs (last 24 hours): Temp Pulse Resp BP Pulse Ox 97.9 F 112 H 18 112/55 L 99 08/09/18 06:00 08/09/18 10:00 08/09/18 06:00 08/09/18 06:00 08/09/18 06:00 Intake and Output: 08/09/18 08/09/18 06:59 18:59 Intake Total 480 Output Total 1300 Balance -820 - Medications Medications: Current Medications Albuterol/Ipratropium (Duoneb 3 Mg/0.5 Mg (3 Ml) Ud) 3 ml IH [id number] PRN PRN Reason: Shortness of Breath Lactulose (Enulose) 10 gm PO DAILY [facility] Last Admin: 08/09/18 09:31 Dose: 10 gm Lorazepam (Ativan) 2 mg IVP Q4 VÍCTOR PRN Reason: Protocol Last Admin: 08/09/18 09:30 Dose: 2 mg Lorazepam (Ativan) 1 mg IVP Q2 PRN; Protocol PRN Reason: Symptoms of alcohol withdrawl Last Admin: 08/08/18 14:50 Dose: 1 mg Methylprednisolone (Solu-Medrol) 40 mg IVP DAILY [facility] Last Admin: 08/09/18 09:31 Dose: 40 mg Ondansetron HCl (Zofran Inj) 4 mg IVP Q4H PRN PRN Reason: Nausea/Vomiting Last Admin: 08/08/18 09:01 Dose: 4 mg Pantoprazole Sodium (Protonix Ec Tab) 40 mg PO 0600 [facility] Last Admin: 08/09/18 05:07 Dose: 40 mg - Labs Labs: 08/08/18 06:30 08/08/18 06:30 PT 14.9 SECONDS (9.4-12.5) H 08/08/18 06:30 INR 1.29 08/08/18 06:30 - Constitutional Appears: No Acute Distress, Older Than Stated Age - Head Exam Head Exam: NORMOCEPHALIC - Eye Exam Eye Exam: Scleral icterus - ENT Exam ENT Exam: Mucous Membranes Moist - Respiratory Exam Respiratory Exam: Clear to Ausculation Bilateral, NORMAL BREATHING PATTERN - Cardiovascular Exam Cardiovascular Exam: +S1, +S2. absent: Diastolic murmur, Irregular Rhythm - GI/Abdominal Exam GI & Abdominal Exam: Soft, Normal Bowel Sounds - Extremities Exam Additional comments: tremulous - Neurological Exam Neurological Exam: Awake - Skin Additional comments: jaundiced Assessment and Plan - Assessment and Plan (Free Text) Assessment: This is a 48 yo male with PMH extensive EtOH abuse, pancreatic tail lesion who was brought in by ambulance on 08/07/18 for evaluation of seizure activity prior to arrival. Pt was recently admitted on 07/23/18 for abdominal pain. Plan: Alcohol withdrawal, s/p seizure activity - telemetry - CIWA 5 - ativan 1 mg IVP Q2H PRN agitation - ativan 2mg IVP Q4H VÍCTOR - fall, seizure and aspiration precautions - ammonia 37 - start lactulose 10gram PO daily - GI: recommends starting lactulose, titrating to 2 BM per day - neurology, likely due to alcohol intoxication, no indication for anti-seizure meds, recommend social work/ case management - continue to monitor Pancreatic Mass: Pseudocyst Vs Malignancy - Repeat EUS/ FNA recommended by GI, earliest this could be done is Saturday, by Dr Hickey Transaminitis - AST:320. ALT: 210. ALP: 170. Tbili: 5.6. - Zofran PRN nausea Sepsis - Solumedrol 40 mg IVP daily - duonebs q4prn - procalcitonin: 0.32 - blood culture: no growth - infectious disease: no antibiotics indicated at this time Hypokalemia - K 3.2 - replete PRN Macrocytic anemia - will monitor - Hgb 9.3 Ppx - Protonix - SCDs - HHD Pt seen, examined, assessment, and plan discussed with Dr Hare. Jem Abbott PGY1
--- NOTE | 2018-08-09 13:06 | RAD ---
Date of service: 08/09/2018 HISTORY: rule out pneumonia COMPARISON: 08/07/2018 FINDINGS: LUNGS: No active pulmonary disease. PLEURA: Mild elevation of right hemidiaphragm. No pleural effusion or pneumothorax appreciated. CARDIOVASCULAR: Normal. OSSEOUS STRUCTURES: No significant abnormalities. VISUALIZED UPPER ABDOMEN: Normal. OTHER FINDINGS: None. IMPRESSION: No active disease.
[2018-08-09 14:16] LABS: GRAN # 8.55 (1.4-6.5); GRAN % 90.7 % (50.0-68.0); HEMOGLOBIN 11.2 g/dL (14.0-18.0); LYMPH # 0.7 (1.2-3.4); LYMPH % 7.4 % (22.0-35.0); MEAN CELL VOLUME 112.2 fl (80.0-105.0); MEAN CORPUSCULAR HEMOGLOBIN 39.2 pg (25.0-35.0); MEAN CORPUSCULAR HGB CONC 34.9 g/dl (31.0-37.0); MEAN PLATELET VOLUME 9.7 fl (7.0-11.0); MONO # 0.2 (0.1-0.6); MONO % 1.9 % (1.0-6.0); PLATELET COUNT 207 10^3/uL (120.0-450.0); RBC 2.86 10^6/uL (3.5-6.1); RED CELL DISTRIBUTION WIDTH 14.4 % (11.5-14.5); WHITE BLOOD COUNT 9.4 10^3/ul (4.5-11.0)
[2018-08-09 14:38] LABS: LYMPHOCYTE 7 % (22.0-35.0); MONOCYTE 1 % (1.0-6.0); NEUTROPHIL 92 % (50.0-70.0)
[2018-08-09 14:39] LABS: PLATELET ESTIMATE NORMAL (NORMAL)
[2018-08-10] MEDS: Pantoprazole 40 mg EC Tab PO SCH (05:09)
[2018-08-10 08:10] LABS: BASO # 0.01 K/mm3 (0.0-2.0); BASO % 0.1 % (0.0-3.0); EOS # 0.1 (0.0-0.7); EOS % 0.8 % (1.5-5.0); GRAN # 8.71 (1.4-6.5); GRAN % 73.3 % (50.0-68.0); HEMOGLOBIN 11.2 g/dL (14.0-18.0); LYMPH # 2.5 (1.2-3.4); LYMPH % 20.7 % (22.0-35.0); MEAN CELL VOLUME 112.5 fl (80.0-105.0); MEAN CORPUSCULAR HEMOGLOBIN 38.9 pg (25.0-35.0); MEAN CORPUSCULAR HGB CONC 34.6 g/dl (31.0-37.0); MEAN PLATELET VOLUME 10.6 fl (7.0-11.0); MONO # 0.6 (0.1-0.6); MONO % 5.1 % (1.0-6.0); RBC 2.88 10^6/uL (3.5-6.1); RED CELL DISTRIBUTION WIDTH 14.4 % (11.5-14.5); WHITE BLOOD COUNT 11.9 10^3/ul (4.5-11.0)
[2018-08-10 08:35] LABS: ALB/GLOB RATIO 0.9 (1.1-1.8); ALBUMIN 3.3 g/dL (3.0-4.8); ALT/SGPT 225 U/L (7-56); AST/SGOT 250 U/L (17-59); BLOOD UREA NITROGEN 14 mg/dL (7-21); CALCIUM 8.9 mg/dL (8.4-10.5); GFR NON-AFRICAN AMERICAN > 60
--- NOTE | 2018-08-10 14:37 | CP.PCM.PN ---
Subjective - Date & Time of Evaluation Date of Evaluation: 08/10/18 Time of Evaluation: 08:00 - Subjective Subjective: Pt seen and examined. No new complaints at this time. Objective - Vital Signs/Intake and Output Vital Signs (last 24 hours): Temp Pulse Resp BP Pulse Ox 98.1 F 73 20 128/81 100 08/10/18 09:00 08/10/18 09:00 08/10/18 09:00 08/10/18 09:00 08/10/18 09:00 Intake and Output: 08/10/18 08/10/18 06:59 18:59 Intake Total 180 180 Output Total 1400 700 Balance -1220 -520 - Medications Medications: Current Medications Albuterol/Ipratropium (Duoneb 3 Mg/0.5 Mg (3 Ml) Ud) 3 ml IH [id number] PRN PRN Reason: Shortness of Breath Lactulose (Enulose) 10 gm PO DAILY [facility] Last Admin: 08/09/18 09:31 Dose: 10 gm Lorazepam (Ativan) 2 mg IVP Q4 VÍCTOR PRN Reason: Protocol Last Admin: 08/10/18 08:00 Dose: Not Given Lorazepam (Ativan) 1 mg IVP Q2 PRN; Protocol PRN Reason: Symptoms of alcohol withdrawl Last Admin: 08/08/18 14:50 Dose: 1 mg Ondansetron HCl (Zofran Inj) 4 mg IVP Q4H PRN PRN Reason: Nausea/Vomiting Last Admin: 08/08/18 09:01 Dose: 4 mg Pantoprazole Sodium (Protonix Ec Tab) 40 mg PO 0600 [facility] Last Admin: 08/10/18 05:09 Dose: 40 mg Prednisone (Prednisone Tab) 40 mg PO DAILY [facility] - Labs Labs: 08/10/18 06:30 08/10/18 06:30 PT 14.9 SECONDS (9.4-12.5) H 08/08/18 06:30 INR 1.29 08/08/18 06:30 - Constitutional Appears: No Acute Distress - Head Exam Head Exam: NORMOCEPHALIC - Eye Exam Eye Exam: Scleral icterus - ENT Exam ENT Exam: Mucous Membranes Moist - Respiratory Exam Respiratory Exam: Clear to Ausculation Bilateral, NORMAL BREATHING PATTERN. absent: Accessory Muscle Use - Cardiovascular Exam Cardiovascular Exam: RRR, +S1, +S2 - GI/Abdominal Exam GI & Abdominal Exam: Soft, Normal Bowel Sounds - Neurological Exam Neurological Exam: Alert, Awake - Skin Additional comments: jaundiced Assessment and Plan - Assessment and Plan (Free Text) Assessment: This is a 48 yo male with PMH extensive EtOH abuse, pancreatic tail lesion who was brought in by ambulance on 08/07/18 for evaluation of seizure activity prior to arrival. Pt was recently admitted on 07/23/18 for abdominal pain. Plan: Alcohol withdrawal, s/p seizure activity - telemetry - CIWA 8 - ativan 1 mg IVP Q2H PRN agitation - ativan 2mg IVP Q4H VÍCTOR - fall, seizure and aspiration precautions - GI: lactulose 10g PO Daily, titrating to 2 BM per day - neurology, likely due to alcohol intoxication, no indication for anti-seizure meds Pancreatic Mass: Pseudocyst Vs Malignancy - Repeat EUS/ FNA recommended by GI, Saturday, by Dr Hickey Transaminitis - AST: 250 - ALT: 225 - ALP: 190 - Tbili: 4.6 - Zofran PRN nausea Sepsis - Solumedrol 40 mg PO daily - duonebs q4prn - infectious disease: no antibiotics indicated at this time Hypokalemia - K 3.3 - replete PRN Macrocytic anemia - will monitor - Hgb 11.2 Ppx - Protonix - SCDs - HHD Pt seen, examined, assessment, and plan discussed with Dr Hare. Jem Abbott PGY1 Internal Medicine Resident
--- NOTE | 2018-08-10 15:12 | PN ---
DATE: 08/10/2018 SUBJECTIVE: The patient is in bed, in no acute distress, nontoxic. PHYSICAL EXAMINATION: VITAL SIGNS: On exam, temperature is 98, blood pressure is 120/80, respiratory rate of 20. HEENT: Examination of HEENT is unremarkable. NECK: Supple. LUNGS: Have decreased breath sounds. HEART: Normal S1, S2. ABDOMEN: Soft, nontender. LABORATORY DATA: Laboratory examination reveals a white count of 11,900, hemoglobin of 11, platelets of 237. Coagulation is noted. The chemistries reveals a BUN of 14, creatinine of 0.6 and AST is 250, ALT is 225, alk phos is 193. Urinalysis is noted and toxicology is noted. Microbiology reveals the blood cultures and negative. Urine cultures are negative. Review of orders reveals the patient to be on prednisone and off of antibiotics. ASSESSMENT AND PLAN: A 48-year-old male, who was seen earlier in 364, bed 1 with a history of alcohol abuse and pancreatic tail lesion and brought in because of witnessed seizure activity and systemic inflammatory response syndrome, alcoholic hepatitis, alcohol abuse. Currently off of antibiotics, afebrile in a patient with hypertensive, diabetes, bipolar, depression and asthma and alcohol abuse. The patient is at risk for developing nosocomial infections. Bill Mcnulty MD
[2018-08-10] MEDS ORDERED: Potassium Chloride 10 mEq ER Tab PO STA (19:51)
[2018-08-11] MEDS: Pantoprazole 40 mg EC Tab PO SCH (05:20)
[2018-08-11 07:18] LABS: BASO # 0.01 K/mm3 (0.0-2.0); BASO % 0.1 % (0.0-3.0); EOS # 0.1 (0.0-0.7); GRAN # 8.77 (1.4-6.5); GRAN % 71.3 % (50.0-68.0); HEMOGLOBIN 11.8 g/dL (14.0-18.0); LYMPH # 2.8 (1.2-3.4); LYMPH % 22.7 % (22.0-35.0); MEAN CORPUSCULAR HEMOGLOBIN 38.3 pg (25.0-35.0); MEAN CORPUSCULAR HGB CONC 34.5 g/dl (31.0-37.0); MEAN PLATELET VOLUME 10.2 fl (7.0-11.0); MONO # 0.6 (0.1-0.6); MONO % 4.9 % (1.0-6.0); RBC 3.08 10^6/uL (3.5-6.1); RED CELL DISTRIBUTION WIDTH 14.1 % (11.5-14.5); WHITE BLOOD COUNT 12.3 10^3/ul (4.5-11.0)
[2018-08-11 07:37] LABS: ALB/GLOB RATIO 0.9 (1.1-1.8); ALBUMIN 3.4 g/dL (3.0-4.8); ALT/SGPT 218 U/L (7-56); AST/SGOT 228 U/L (17-59); BLOOD UREA NITROGEN 14 mg/dL (7-21); CALCIUM 9.1 mg/dL (8.4-10.5); GFR NON-AFRICAN AMERICAN > 60
--- NOTE | 2018-08-11 14:40 | CP.PCM.PN ---
<Beck Fowler - Last Filed: 08/11/18 17:38> Subjective - Date & Time of Evaluation Date of Evaluation: 08/11/18 Time of Evaluation: 14:37 - Subjective Subjective: Beck Fowler PGY1 Progress Note for Dr. Monsivais Pt was examined at bedside this morning. He has no complaints today. He denies any chest pain, headache, shortness of breath, abdominal pain, nausea, vomiting , diarrhea, dysuria. Objective - Vital Signs/Intake and Output Vital Signs (last 24 hours): Temp Pulse Resp BP Pulse Ox 98.1 F 65 20 109/69 99 08/11/18 07:39 08/11/18 07:39 08/11/18 07:39 08/11/18 07:39 08/11/18 07:39 - Medications Medications: Current Medications Albuterol/Ipratropium (Duoneb 3 Mg/0.5 Mg (3 Ml) Ud) 3 ml IH [id number] PRN PRN Reason: Shortness of Breath Lactulose (Enulose) 10 gm PO DAILY [facility] Last Admin: 08/11/18 09:00 Dose: 10 gm Lorazepam (Ativan) 2 mg IVP Q4 VÍCTOR PRN Reason: Protocol Last Admin: 08/11/18 11:11 Dose: 2 mg Lorazepam (Ativan) 1 mg IVP Q2 PRN; Protocol PRN Reason: Symptoms of alcohol withdrawl Last Admin: 08/08/18 14:50 Dose: 1 mg Ondansetron HCl (Zofran Inj) 4 mg IVP Q4H PRN PRN Reason: Nausea/Vomiting Last Admin: 08/08/18 09:01 Dose: 4 mg Pantoprazole Sodium (Protonix Ec Tab) 40 mg PO 0600 [facility] Last Admin: 08/11/18 05:20 Dose: 40 mg Prednisone (Prednisone Tab) 40 mg PO DAILY [facility] Last Admin: 08/11/18 09:00 Dose: 40 mg - Labs Labs: 08/11/18 06:40 08/11/18 06:40 PT 14.9 SECONDS (9.4-12.5) H 08/08/18 06:30 INR 1.29 08/08/18 06:30 - Constitutional Appears: Well, No Acute Distress - Head Exam Head Exam: ATRAUMATIC, NORMOCEPHALIC - ENT Exam ENT Exam: Mucous Membranes Moist, Normal Exam - Neck Exam Neck Exam: Normal Inspection - Respiratory Exam Respiratory Exam: Clear to Ausculation Bilateral, NORMAL BREATHING PATTERN - Cardiovascular Exam Cardiovascular Exam: REGULAR RHYTHM, +S1, +S2 - GI/Abdominal Exam GI & Abdominal Exam: Soft, Normal Bowel Sounds. absent: Distended, Tenderness - Extremities Exam Extremities Exam: Normal Inspection. absent: Pedal Edema - Neurological Exam Neurological Exam: Alert, Awake Additional comments: AAOx2, to person and place. - Psychiatric Exam Psychiatric exam: Normal Affect, Normal Mood - Skin Additional comments: jaundiced Assessment and Plan - Assessment and Plan (Free Text) Assessment: 48 yo M with PMH extensive EtOH abuse, pancreatic tail lesion who was brought in by ambulance on 08/07/18 for evaluation of seizure activity prior to arrival. Pt was recently admitted on 07/23/18 for abdominal pain. Plan: Alcohol withdrawal, s/p seizure activity - telemetry - CIWA 5 - ativan 1 mg IVP Q2H PRN agitation - ativan 2 mg IVP Q4H VÍCTOR - fall, seizure and aspiration precautions - contiue lactulose, titrate to 2 soft BM/day as per GI - Neuro consulted: likely due to alcohol intoxication, no indication for anti- seizure meds. recs appreciated. Pancreatic Mass: Pseudocyst Vs Malignancy - GI: Repeat EUS/ FNA - GI reconsulted, Dr. Hickey Transaminitis - AST: 228 - ALT: 218 - ALP: 202 - Tbili: 4.6 - Zofran PRN nausea SIRS - pt afebrile - BCx negative - ID: no antibiotics indicated at this time, recs appreciated Hypokalemia - K 3.6 from 3.3, resolved - continue to monitor Macrocytic anemia - Hb 11.8 - continue to monitor Ppx - Protonix - SCDs - HHD Pt seen, examined, assessment, and plan discussed with Dr Monsivais. <Codie Monsivais - Last Filed: 08/11/18 18:02> Objective - Vital Signs/Intake and Output Vital Signs (last 24 hours): Temp Pulse Resp BP Pulse Ox 98.1 F 65 20 109/69 99 08/11/18 07:39 08/11/18 07:39 08/11/18 07:39 08/11/18 07:39 08/11/18 07:39 - Medications Medications: Current Medications Albuterol/Ipratropium (Duoneb 3 Mg/0.5 Mg (3 Ml) Ud) 3 ml IH [id number] PRN PRN Reason: Shortness of Breath Lactulose (Enulose) 10 gm PO DAILY [facility] Last Admin: 08/11/18 09:00 Dose: 10 gm Lorazepam (Ativan) 2 mg IVP Q4 VÍCTOR PRN Reason: Protocol Last Admin: 08/11/18 15:37 Dose: 2 mg Lorazepam (Ativan) 1 mg IVP Q2 PRN; Protocol PRN Reason: Symptoms of alcohol withdrawl Last Admin: 08/08/18 14:50 Dose: 1 mg Ondansetron HCl (Zofran Inj) 4 mg IVP Q4H PRN PRN Reason: Nausea/Vomiting Last Admin: 08/08/18 09:01 Dose: 4 mg Pantoprazole Sodium (Protonix Ec Tab) 40 mg PO 0600 [facility] Last Admin: 08/11/18 05:20 Dose: 40 mg Prednisone (Prednisone Tab) 40 mg PO DAILY [facility] Last Admin: 08/11/18 09:00 Dose: 40 mg - Labs Labs: 08/11/18 06:40 08/11/18 06:40 PT 14.9 SECONDS (9.4-12.5) H 08/08/18 06:30 INR 1.29 08/08/18 06:30 Attending/Attestation - Attestation I have personally seen and examined this patient.: Yes I have fully participated in the care of the patient.: Yes I have reviewed all pertinent clinical information, including history, physical exam and plan: Yes Notes (Text): 08/11/18 18:00 48 year old male with past medical history of alcohol abuse who presented with seizure. He was recently discharged last week but continued to drink alcohol. Seizure was likely alcohol withdrawal seizure. Neurology evaluation was appreciated. Patient is on ativan víctor/prn for withdrawal symptoms. He was counselled on alcohol cessation. Unfortunately he fails to comply. GI is following also; will discuss for ?plan for EUS/FNA. Continue with monitor LFTs closely. Codie Monsivais MD Hospitalist.
[2018-08-12] MEDS: Pantoprazole 40 mg EC Tab PO SCH (06:24)
[2018-08-12 06:43] LABS: BASO # 0.01 K/mm3 (0.0-2.0); BASO % 0.1 % (0.0-3.0); EOS # 0.1 (0.0-0.7); EOS % 0.8 % (1.5-5.0); GRAN # 11.25 (1.4-6.5); GRAN % 73.8 % (50.0-68.0); HEMOGLOBIN 11.9 g/dL (14.0-18.0); LYMPH # 3.2 (1.2-3.4); MEAN CELL VOLUME 112.2 fl (80.0-105.0); MEAN CORPUSCULAR HEMOGLOBIN 38.1 pg (25.0-35.0); MEAN PLATELET VOLUME 10.3 fl (7.0-11.0); MONO # 0.7 (0.1-0.6); MONO % 4.3 % (1.0-6.0); RBC 3.12 10^6/uL (3.5-6.1); WHITE BLOOD COUNT 15.2 10^3/ul (4.5-11.0)
[2018-08-12 07:12] LABS: ALB/GLOB RATIO 0.9 (1.1-1.8); ALBUMIN 3.6 g/dL (3.0-4.8); ALT/SGPT 221 U/L (7-56); AST/SGOT 233 U/L (17-59); BLOOD UREA NITROGEN 11 mg/dL (7-21); CALCIUM 9.4 mg/dL (8.4-10.5); GFR NON-AFRICAN AMERICAN > 60
--- NOTE | 2018-08-12 13:39 | CP.PCM.PN ---
<Beck Fowler - Last Filed: 08/12/18 17:20> Subjective - Date & Time of Evaluation Date of Evaluation: 08/12/18 Time of Evaluation: 13:37 - Subjective Subjective: Beck Fowler PGY1 Progress Note for Dr. Monsivais Pt was examined at bedside this morning. He complained of a mild headache, but denied any chest pain, shortness of breath, abdominal pain, nausea, vomiting, diarrhea, or dysuria. Objective - Vital Signs/Intake and Output Vital Signs (last 24 hours): Temp Pulse Resp BP Pulse Ox 97.7 F 74 20 117/81 97 08/12/18 08:43 08/12/18 08:43 08/12/18 08:43 08/12/18 08:43 08/12/18 08:43 - Medications Medications: Current Medications Albuterol/Ipratropium (Duoneb 3 Mg/0.5 Mg (3 Ml) Ud) 3 ml IH [id number] PRN PRN Reason: Shortness of Breath Lactulose (Enulose) 10 gm PO DAILY [facility] Last Admin: 08/12/18 09:24 Dose: 10 gm Lorazepam (Ativan) 1 mg IVP Q2 PRN; Protocol PRN Reason: Symptoms of alcohol withdrawl Last Admin: 08/08/18 14:50 Dose: 1 mg Lorazepam (Ativan) 1 mg IVP Q4H [facility]; Protocol Last Admin: 08/12/18 11:59 Dose: 1 mg Ondansetron HCl (Zofran Inj) 4 mg IVP Q4H PRN PRN Reason: Nausea/Vomiting Last Admin: 08/08/18 09:01 Dose: 4 mg Pantoprazole Sodium (Protonix Ec Tab) 40 mg PO 0600 [facility] Last Admin: 08/12/18 06:24 Dose: 40 mg Prednisone (Prednisone Tab) 40 mg PO DAILY [facility] Last Admin: 08/12/18 09:24 Dose: 40 mg - Labs Labs: 08/12/18 06:00 08/12/18 06:00 PT 14.9 SECONDS (9.4-12.5) H 08/08/18 06:30 INR 1.29 08/08/18 06:30 - Constitutional Appears: Well, No Acute Distress - Head Exam Head Exam: ATRAUMATIC, NORMOCEPHALIC - Neck Exam Neck Exam: Normal Inspection - Respiratory Exam Respiratory Exam: Clear to Ausculation Bilateral, NORMAL BREATHING PATTERN - Cardiovascular Exam Cardiovascular Exam: REGULAR RHYTHM, +S1, +S2 - GI/Abdominal Exam GI & Abdominal Exam: Soft, Normal Bowel Sounds. absent: Tenderness - Extremities Exam Extremities Exam: Normal Inspection. absent: Pedal Edema - Neurological Exam Neurological Exam: Alert, Awake, Oriented x3 - Psychiatric Exam Psychiatric exam: Normal Affect, Normal Mood Assessment and Plan - Assessment and Plan (Free Text) Assessment: 48 yo M with PMH extensive EtOH abuse, pancreatic tail lesion who was brought in by ambulance on 08/07/18 for evaluation of seizure activity prior to arrival. Pt was recently admitted on 07/23/18 for abdominal pain. Plan: Alcohol withdrawal, s/p seizure activity - CIWA 5 - ativan 1 mg IVP Q2H PRN - decrease to ativan 1 mg IVP Q4H [facility] - contiue lactulose, titrate to 2 soft BM/day - fall, seizure and aspiration precautions - Neuro consulted, Dr. Lynn: likely due to alcohol intoxication, no indication for anti-seizure meds. recs appreciated. Pancreatic Mass: Pseudocyst Vs Malignancy - GI: Repeat EUS/FNA tomorrow - GI reconsulted, Dr. Hickey - recs appreciated Transaminitis - AST: 233 today from 228 - ALT: 221 today from 218 - ALP: 209 today from 202 - Tbili: 4.2 today from 4.6 - Zofran PRN nausea Chronic Pancreatitis - prednisone decreased to 30mg PO daily - monitor SIRS - WBC 15.2, likely secondary to steroid administration - pt afebrile - BCx negative - ID consulted, Dr. Carbone: no antibiotics indicated at this time, recs appreciated Hypokalemia - K 3.6 today, resolved - continue to monitor Macrocytic anemia - Hb 11.9 today - continue to monitor Ppx - Protonix - SCDs - HHD Pt seen, examined, assessment, and plan discussed with Dr Monsivais. <Codie Monsivais - Last Filed: 08/12/18 18:12> Objective - Vital Signs/Intake and Output Vital Signs (last 24 hours): Temp Pulse Resp BP Pulse Ox 97.7 F 74 20 117/81 97 08/12/18 08:43 08/12/18 08:43 08/12/18 08:43 08/12/18 08:43 08/12/18 08:43 - Medications Medications: Current Medications Albuterol/Ipratropium (Duoneb 3 Mg/0.5 Mg (3 Ml) Ud) 3 ml IH [id number] PRN PRN Reason: Shortness of Breath Lactulose (Enulose) 10 gm PO DAILY [facility] Last Admin: 08/12/18 09:24 Dose: 10 gm Lorazepam (Ativan) 1 mg IVP Q2 PRN; Protocol PRN Reason: Symptoms of alcohol withdrawl Last Admin: 08/08/18 14:50 Dose: 1 mg Lorazepam (Ativan) 1 mg IVP Q4H [facility]; Protocol Last Admin: 08/12/18 17:24 Dose: 1 mg Ondansetron HCl (Zofran Inj) 4 mg IVP Q4H PRN PRN Reason: Nausea/Vomiting Last Admin: 08/08/18 09:01 Dose: 4 mg Pantoprazole Sodium (Protonix Ec Tab) 40 mg PO 0600 [facility] Last Admin: 08/12/18 06:24 Dose: 40 mg Prednisone (Prednisone Tab) 30 mg PO DAILY [facility] - Labs Labs: 08/12/18 06:00 08/12/18 06:00 PT 14.9 SECONDS (9.4-12.5) H 08/08/18 06:30 INR 1.29 08/08/18 06:30 Attending/Attestation - Attestation I have personally seen and examined this patient.: Yes I have fully participated in the care of the patient.: Yes I have reviewed all pertinent clinical information, including history, physical exam and plan: Yes Notes (Text): 08/12/18 18:11 48 year old male with past medical history of alcohol abuse who presented with seizure. He was recently discharged last week but continued to drink alcohol. Seizure was likely alcohol withdrawal seizure. Neurology evaluation was ap preciated. Patient is on tapering ativan víctor/prn for withdrawal symptoms. He was counselled on alcohol cessation. Unfortunately he fails to comply. Leukocytosis possibly secondary to po prednisone; will begin to taper. GI is following also and plan is for EUS/FNA tomorrow. Continue with monitor LFTs closely. Codie Monsivais MD Hospitalist.
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
--- NOTE | 2018-08-12 21:20 | CP.PCM.PN ---
Subjective - Date & Time of Evaluation Date of Evaluation: 08/12/18 Time of Evaluation: 10:05 - Subjective Subjective: No nausea, no abdominal pain, no fevers. Objective - Vital Signs/Intake and Output Vital Signs (last 24 hours): Temp Pulse Resp BP Pulse Ox 98.8 F 82 20 110/74 99 08/12/18 18:00 08/12/18 18:00 08/12/18 18:00 08/12/18 18:00 08/12/18 18:00 Intake and Output: 08/12/18 08/13/18 18:59 06:59 Intake Total 1200 Output Total 1000 Balance 200 - Medications Medications: Current Medications Albuterol/Ipratropium (Duoneb 3 Mg/0.5 Mg (3 Ml) Ud) 3 ml IH [id number] PRN PRN Reason: Shortness of Breath Lactulose (Enulose) 10 gm PO DAILY [facility] Last Admin: 08/12/18 09:24 Dose: 10 gm Lorazepam (Ativan) 1 mg IVP Q2 PRN; Protocol PRN Reason: Symptoms of alcohol withdrawl Last Admin: 08/08/18 14:50 Dose: 1 mg Lorazepam (Ativan) 1 mg IVP Q4H [facility]; Protocol Last Admin: 08/12/18 17:24 Dose: 1 mg Ondansetron HCl (Zofran Inj) 4 mg IVP Q4H PRN PRN Reason: Nausea/Vomiting Last Admin: 08/08/18 09:01 Dose: 4 mg Pantoprazole Sodium (Protonix Ec Tab) 40 mg PO 0600 [facility] Last Admin: 08/12/18 06:24 Dose: 40 mg Prednisone (Prednisone Tab) 30 mg PO DAILY [facility] - Labs Labs: 08/12/18 06:00 08/12/18 06:00 PT 14.9 SECONDS (9.4-12.5) H 08/08/18 06:30 INR 1.29 08/08/18 06:30 - Constitutional Appears: Chronically Ill - Head Exam Head Exam: NORMAL INSPECTION - Respiratory Exam Respiratory Exam: Decreased Breath Sounds - Cardiovascular Exam Cardiovascular Exam: +S1, +S2 - GI/Abdominal Exam GI & Abdominal Exam: Soft. absent: Tenderness Assessment and Plan - Assessment and Plan (Free Text) Plan: Assessment SIRS due to alcoholic hepatitis history of severe sepsis S/P acute renal failure due to E. coli bacteremia, probably due to UTI in this patient with severe acute alcoholic hepatitis, clinically improving acute renal failure chronic ethanol abuse pancreatic tail lesion Plan continue to monitor off antibiotics since he is at risk for infections overall prognosis is poor
[2018-08-13] MEDS: Pantoprazole 40 mg EC Tab PO SCH (06:05)
[2018-08-13 06:28] LABS: BASO # 0.01 K/mm3 (0.0-2.0); BASO % 0.1 % (0.0-3.0); EOS # 0.1 (0.0-0.7); EOS % 0.8 % (1.5-5.0); GRAN # 9.36 (1.4-6.5); GRAN % 72.9 % (50.0-68.0); HEMOGLOBIN 11.9 g/dL (14.0-18.0); LYMPH # 2.7 (1.2-3.4); LYMPH % 20.7 % (22.0-35.0); MEAN CELL VOLUME 111.7 fl (80.0-105.0); MEAN CORPUSCULAR HEMOGLOBIN 37.7 pg (25.0-35.0); MEAN CORPUSCULAR HGB CONC 33.7 g/dl (31.0-37.0); MEAN PLATELET VOLUME 10.4 fl (7.0-11.0); MONO # 0.7 (0.1-0.6); MONO % 5.5 % (1.0-6.0); RBC 3.16 10^6/uL (3.5-6.1); RED CELL DISTRIBUTION WIDTH 13.6 % (11.5-14.5); WHITE BLOOD COUNT 12.8 10^3/ul (4.5-11.0)
[2018-08-13 06:33] LABS: INR 1.2; PROTHROMBIN TIME 13.9 SECONDS (9.4-12.5)
[2018-08-13 06:53] LABS: ALB/GLOB RATIO 0.9 (1.1-1.8); ALBUMIN 3.4 g/dL (3.0-4.8); ALT/SGPT 199 U/L (7-56); AST/SGOT 194 U/L (17-59); BLOOD UREA NITROGEN 10 mg/dL (7-21); CALCIUM 9.1 mg/dL (8.4-10.5); GFR NON-AFRICAN AMERICAN > 60
[2018-08-13] MEDS ORDERED: Multivitamin (MVI) 10 ML, Thiamine 100 MG, Folic Acid 1 MG in Sodium Chloride 0.9% 1,00... IV ONE (07:37)
--- NOTE | 2018-08-13 13:47 | PN ---
DATE: 08/13/2018 SUBJECTIVE: The patient is seen in bed, in no acute distress, early this morning. No fevers and chills. PHYSICAL EXAMINATION: VITAL SIGNS: Temperature is 98, blood pressure is 120/70, respiratory rate of 18. HEENT: Examination of HEENT is unremarkable. NECK: Supple. LUNGS: Have decreased breath sounds. HEART: Normal S1 and S2. ABDOMEN: Soft. LABORATORY DATA: Laboratory examination reveals the patient's white count is 12,800, hemoglobin 11. Chemistries are noted. BUN of 10, creatinine of 0.5. LFTs are elevated. Urinalysis is noted. Toxicology is reviewed. Microbiology reveals the blood cultures and urine cultures are negative. Review of orders revealed the patient to be on prednisone, off of antibiotics. ASSESSMENT AND PLAN: A 48-year-old male with systemic inflammatory response syndrome due to the alcoholic hepatitis, history of severe sepsis, acute renal failure due to Escherichia coli bacteremia due to urinary tract infection in a patient with severe acute alcoholic hepatitis, improving. Currently, off of antibiotics. He is on prednisone. The patient with acute renal failure, chronic alcoholism, pancreatic tail lesion. We will follow with you. Bill Mcnulty MD
[2018-08-13] MEDS ORDERED: Succinylcholine 200 mg/10 ml Inj IV ONE (14:11)
[2018-08-13] MEDS ORDERED: Lidocaine 1% Inj (20ml) ONE (14:11)
[2018-08-13] MEDS ORDERED: Midazolam 2 MG/2 ML VIAL ONE (14:11)
[2018-08-13] MEDS ORDERED: Propofol 10 mg/ml Inj (20 ML) ONE (14:11)
--- NOTE | 2018-08-13 14:20 | CP.PCM.PN ---
<Beck Fowler - Last Filed: 08/13/18 17:15> Subjective - Date & Time of Evaluation Date of Evaluation: 08/13/18 Time of Evaluation: 14:17 - Subjective Subjective: Beck Fowler PGY1 Progress Note for Dr. Monsivais Patient was examined at bedside this morning. He had no acute complaints. He denied any headache, chest pain, abdominal pain, shortness of breath, nausea, vomiting, diarrhea. Objective - Vital Signs/Intake and Output Vital Signs (last 24 hours): Temp Pulse Resp BP Pulse Ox 98.3 F 68 17 108/78 99 08/13/18 13:51 08/13/18 13:51 08/13/18 13:51 08/13/18 13:51 08/13/18 13:51 Intake and Output: 08/13/18 08/13/18 06:59 18:59 Intake Total 240 Output Total 1025 Balance -785 - Medications Medications: Current Medications Albuterol/Ipratropium (Duoneb 3 Mg/0.5 Mg (3 Ml) Ud) 3 ml IH [id number] PRN PRN Reason: Shortness of Breath Folic Acid (Folic Acid) 1 mg PO DAILY [facility] Multivitamins/Vitamin C 10 ml/Thiamine HCl 100 mg/ Folic Acid 1 mg/ Sodium Chloride 1,011.2 mls @ 100 mls/hr IV .Q10H7M ONE Stop: 08/13/18 17:43 Last Admin: 08/13/18 09:55 Dose: 100 mls/hr Lactulose (Enulose) 10 gm PO DAILY [facility] Last Admin: 08/13/18 09:01 Dose: 10 gm Lorazepam (Ativan) 1 mg IVP Q2 PRN; Protocol PRN Reason: Symptoms of alcohol withdrawl Last Admin: 08/08/18 14:50 Dose: 1 mg Lorazepam (Ativan) 1 mg PO Q6H [facility]; Protocol Last Admin: 08/13/18 12:45 Dose: 1 mg Ondansetron HCl (Zofran Inj) 4 mg IVP Q4H PRN PRN Reason: Nausea/Vomiting Last Admin: 08/08/18 09:01 Dose: 4 mg Pantoprazole Sodium (Protonix Ec Tab) 40 mg PO 0600 [facility] Last Admin: 08/13/18 06:05 Dose: 40 mg Prednisone (Prednisone Tab) 30 mg PO DAILY [facility] Last Admin: 08/13/18 09:02 Dose: 30 mg Thiamine HCl (Vitamin B1 Tab) 100 mg PO DAILY [facility] - Labs Labs: 08/13/18 06:00 08/13/18 06:00 PT 13.9 SECONDS (9.4-12.5) H 08/13/18 06:00 INR 1.20 08/13/18 06:00 - Constitutional Appears: Well, No Acute Distress - Head Exam Head Exam: ATRAUMATIC, NORMOCEPHALIC - Neck Exam Neck Exam: Normal Inspection - Respiratory Exam Respiratory Exam: Clear to Ausculation Bilateral, NORMAL BREATHING PATTERN. absent: Rhonchi, Wheezes - Cardiovascular Exam Cardiovascular Exam: REGULAR RHYTHM, +S1, +S2 - GI/Abdominal Exam GI & Abdominal Exam: Soft. absent: Firm, Tenderness - Extremities Exam Extremities Exam: Normal Inspection. absent: Pedal Edema - Neurological Exam Neurological Exam: Alert, Awake, Oriented x3 - Skin Additional comments: jaundiced Assessment and Plan - Assessment and Plan (Free Text) Assessment: 48 yo M with PMH extensive EtOH abuse, pancreatic tail lesion who was brought in by ambulance on 08/07/18 for evaluation of seizure activity prior to arrival. Pt was recently admitted on 07/23/18 for abdominal pain. Plan: Pancreatic Mass: Pseudocyst Vs Malignancy - GI: Repeat EUS/FNA today - GI reconsulted, Dr. Hickey - recs appreciated - f/u procedure report Alcohol withdrawal, s/p seizure activity - CIWA 5 on 08/12 - ativan 1 mg IVP Q2H PRN - decrease to ativan 1 mg IVP Q6H [facility] - contiue lactulose - fall, seizure and aspiration precautions - Neuro consulted, Dr. Lynn: likely due to alcohol intoxication, no indication for anti-seizure meds. recs appreciated. Transaminitis - AST: 194 today from 233 - ALT: 199 today from 221 - ALP: 185 today from 209 - Tbili: 3.5 today from 4.2 - Zofran PRN nausea Chronic Pancreatitis - Maddrey score 16.8 - prednisone decreased to 30mg PO daily - consider taper SIRS - WBC 12.8, likely secondary to steroid administration - pt afebrile - BCx negative - ID consulted, Dr. Mcnulty: no antibiotics indicated at this time, recs appreciated Hypokalemia - K 3.5 today, resolved - continue to monitor Macrocytic anemia - Hb 11.9 today - pt asymptomatic and hemodynamically stable - continue to monitor Ppx - Protonix - SCDs - HHD Pt seen, examined, assessment, and plan discussed with Dr Monsivias. <Codie Monsivais - Last Filed: 08/13/18 18:02> Objective - Vital Signs/Intake and Output Vital Signs (last 24 hours): Temp Pulse Resp BP Pulse Ox 98 F 61 18 135/78 99 08/13/18 16:45 08/13/18 16:45 08/13/18 16:45 08/13/18 16:45 08/13/18 16:45 Intake and Output: 08/13/18 08/13/18 06:59 18:59 Intake Total 240 Output Total 1025 Balance -785 - Medications Medications: Current Medications Albuterol/Ipratropium (Duoneb 3 Mg/0.5 Mg (3 Ml) Ud) 3 ml IH [id number] PRN PRN Reason: Shortness of Breath Folic Acid (Folic Acid) 1 mg PO DAILY [facility] Sodium Chloride (Sodium Chloride 0.9%) 1,000 mls @ 100 mls/hr IV .Q10H [facility] Lactulose (Enulose) 10 gm PO DAILY [facility] Last Admin: 08/13/18 09:01 Dose: 10 gm Lorazepam (Ativan) 1 mg IVP Q2 PRN; Protocol PRN Reason: Symptoms of alcohol withdrawl Last Admin: 08/08/18 14:50 Dose: 1 mg Lorazepam (Ativan) 1 mg PO Q6H [facility]; Protocol Last Admin: 08/13/18 17:13 Dose: 1 mg Ondansetron HCl (Zofran Inj) 4 mg IVP Q4H PRN PRN Reason: Nausea/Vomiting Last Admin: 08/08/18 09:01 Dose: 4 mg Pantoprazole Sodium (Protonix Ec Tab) 40 mg PO 0600 [facility] Last Admin: 08/13/18 06:05 Dose: 40 mg Prednisone (Prednisone Tab) 30 mg PO DAILY [facility] Last Admin: 08/13/18 09:02 Dose: 30 mg Thiamine HCl (Vitamin B1 Tab) 100 mg PO DAILY [facility] - Labs Labs: 08/13/18 06:00 08/13/18 06:00 PT 13.9 SECONDS (9.4-12.5) H 08/13/18 06:00 INR 1.20 08/13/18 06:00 Attending/Attestation - Attestation I have personally seen and examined this patient.: Yes I have fully participated in the care of the patient.: Yes I have reviewed all pertinent clinical information, including history, physical exam and plan: Yes Notes (Text): 08/13/18 18:02 48 year old male with past medical history of alcohol abuse who presented with seizure. He was recently discharged last week but continued to drink alcohol. Seizure was likely alcohol withdrawal seizure. Neurology evaluation was appreciated. Patient is on tapering ativan víctor/prn for withdrawal symptoms. He was counselled on alcohol cessation. Unfortunately he fails to comply. Leuko cytosis likely secondary to po prednisone which is being tapered. WBC is better today. GI is following also and plan is for EUS/FNA today. Continue with monitor LFTs closely. Codie Monsivais MD Hospitalist.
[2018-08-13] MEDS ORDERED: cefTRIAXone (Rocephin) 1 gm Inj ONE (14:40)
[2018-08-13] MEDS ORDERED: Sodium Chloride 0.9% 1,000 ML IV SCH (16:15)
[2018-08-14] MEDS: Pantoprazole 40 mg EC Tab PO SCH (06:05)
[2018-08-14 06:48] LABS: ALB/GLOB RATIO 0.9 (1.1-1.8); ALT/SGPT 215 U/L (7-56); AST/SGOT 209 U/L (17-59); BLOOD UREA NITROGEN 7 mg/dL (7-21); CALCIUM 9.1 mg/dL (8.4-10.5); GFR NON-AFRICAN AMERICAN > 60
[2018-08-14 08:23] LABS: HEMOGLOBIN 13.8 g/dL (14.0-18.0); MEAN CELL VOLUME 113.2 fl (80.0-105.0); MEAN CORPUSCULAR HEMOGLOBIN 38.7 pg (25.0-35.0); MEAN CORPUSCULAR HGB CONC 34.2 g/dl (31.0-37.0); MEAN PLATELET VOLUME 10.5 fl (7.0-11.0); RBC 3.57 10^6/uL (3.5-6.1); RED CELL DISTRIBUTION WIDTH 13.3 % (11.5-14.5)
[2018-08-14] MEDS ORDERED: Fluconazole IV 200mg/100 ml NS 100 ML IVPB ONE (10:00)
--- NOTE | 2018-08-14 10:12 | CP.PCM.PN ---
<Seamus Robles - Last Filed: 08/14/18 10:06> Subjective - Date & Time of Evaluation Date of Evaluation: 08/14/18 Time of Evaluation: 10:06 - Subjective Subjective: GI Fellow PGY4 Patient tolerated pancreatic mass EUS/FNB. No pain today. Requesting food. He was started on fluconazole last night for musa esophagitis. Objective - Vital Signs/Intake and Output Vital Signs (last 24 hours): Temp Pulse Resp BP Pulse Ox 98.3 F 68 20 131/83 100 08/14/18 06:00 08/14/18 06:00 08/14/18 06:00 08/14/18 06:00 08/14/18 06:00 Intake and Output: 08/14/18 08/14/18 06:59 18:59 Intake Total 1000 Output Total 800 Balance 200 - Medications Medications: Current Medications Albuterol/Ipratropium (Duoneb 3 Mg/0.5 Mg (3 Ml) Ud) 3 ml IH [id number] PRN PRN Reason: Shortness of Breath Fluconazole (Diflucan) 100 mg PO DAILY [facility]; Protocol Folic Acid (Folic Acid) 1 mg PO DAILY [facility] Last Admin: 08/14/18 09:18 Dose: 1 mg Sodium Chloride (Sodium Chloride 0.9%) 1,000 mls @ 100 mls/hr IV .Q10H [facility] Fluconazole (Diflucan Iv 200 Mg/100 Ml Ns) 100 mls @ 100 mls/hr IVPB ONCE ONE; Protocol Stop: 08/14/18 10:59 Last Admin: 08/14/18 09:18 Dose: 100 mls/hr Lactulose (Enulose) 10 gm PO DAILY [facility] Last Admin: 08/14/18 09:18 Dose: 10 gm Lorazepam (Ativan) 1 mg IVP Q2 PRN; Protocol PRN Reason: Symptoms of alcohol withdrawl Last Admin: 08/08/18 14:50 Dose: 1 mg Lorazepam (Ativan) 1 mg PO Q6H [facility]; Protocol Last Admin: 08/14/18 06:05 Dose: 1 mg Ondansetron HCl (Zofran Inj) 4 mg IVP Q4H PRN PRN Reason: Nausea/Vomiting Last Admin: 08/08/18 09:01 Dose: 4 mg Pantoprazole Sodium (Protonix Ec Tab) 40 mg PO 0600 [facility] Last Admin: 08/14/18 06:05 Dose: 40 mg Thiamine HCl (Vitamin B1 Tab) 100 mg PO DAILY [facility] Last Admin: 08/14/18 09:18 Dose: 100 mg - Labs Labs: 08/14/18 07:30 08/14/18 05:30 PT 13.9 SECONDS (9.4-12.5) H 08/13/18 06:00 INR 1.20 08/13/18 06:00 - Constitutional Appears: Non-toxic, No Acute Distress, Chronically Ill - Eye Exam Eye Exam: EOMI, Normal appearance - ENT Exam ENT Exam: Mucous Membranes Moist - Respiratory Exam Respiratory Exam: Clear to Ausculation Bilateral, NORMAL BREATHING PATTERN - Cardiovascular Exam Cardiovascular Exam: REGULAR RHYTHM, +S1, +S2 - GI/Abdominal Exam GI & Abdominal Exam: Soft, Normal Bowel Sounds. absent: Tenderness - Extremities Exam Extremities Exam: Normal Inspection - Neurological Exam Neurological Exam: Alert, Awake, Normal Gait, Oriented x3 - Psychiatric Exam Psychiatric exam: Normal Affect, Normal Mood - Skin Skin Exam: Dry, Normal Color Assessment and Plan - Assessment and Plan (Free Text) Assessment: 48M with extensive etoh history. #Alcoholic Hepatitis - 07/28/18 MELD 27, DF 60. Now, MELD 16 and DF 14. #Pancreatic mass - previously found nondiagnostic on EUS/FNA, 4cm now, previously 2.5cm. #Musa esophagitis #Chronic pancreatitis #Seizure #Homeless #Chronic anemia #Weight loss PLAN: -EUS/FNB 08/13/18 for pancreatic mass, good biopsy specimens taken. -Follow up pathology for pancreatic mass -Continue supportive care and treatment of seizures. -Regarding pancreatic mass. It appears it has enlarged. This could be pancreatic pseudocyst vs malignancy. The EUS/FNA was non-diagnostic on 11/03. -Started on fluconazole. Continue at half-dose (50mg per day) in setting of small body habitus and liver disease. Monitor LFTs. When discharged, recommend switching to nystatin (swallow) x 2 weeks. Avoid fluconazole as outpt as he will likely go back to drinking EtOH and develop liver failure. -Soft diet <Ruperto,Kovil V - Last Filed: 08/14/18 23:26> Objective - Vital Signs/Intake and Output Vital Signs (last 24 hours): Temp Pulse Resp BP Pulse Ox 98.5 F 85 18 127/89 99 08/14/18 17:29 08/14/18 17:29 08/14/18 17:29 08/14/18 17:29 08/14/18 17:29 Intake and Output: 08/14/18 08/15/18 18:59 06:59 Intake Total 1820 Output Total 650 Balance 1170 - Medications Medications: Current Medications Albuterol/Ipratropium (Duoneb 3 Mg/0.5 Mg (3 Ml) Ud) 3 ml IH [id number] PRN PRN Reason: Shortness of Breath Fluconazole (Diflucan) 50 mg PO DAILY [facility]; Protocol Folic Acid (Folic Acid) 1 mg PO DAILY [facility] Last Admin: 08/14/18 09:18 Dose: 1 mg Sodium Chloride (Sodium Chloride 0.9%) 1,000 mls @ 100 mls/hr IV .Q10H [facility] Lactulose (Enulose) 10 gm PO DAILY [facility] Last Admin: 08/14/18 09:18 Dose: 10 gm Lorazepam (Ativan) 1 mg IVP Q2 PRN; Protocol PRN Reason: Symptoms of alcohol withdrawl Last Admin: 08/08/18 14:50 Dose: 1 mg Lorazepam (Ativan) 0.5 mg PO TID [facility]; Protocol Last Admin: 08/14/18 21:26 Dose: 0.5 mg Ondansetron HCl (Zofran Inj) 4 mg IVP Q4H PRN PRN Reason: Nausea/Vomiting Last Admin: 08/08/18 09:01 Dose: 4 mg Pantoprazole Sodium (Protonix Ec Tab) 40 mg PO 0600 [facility] Last Admin: 08/14/18 06:05 Dose: 40 mg Thiamine HCl (Vitamin B1 Tab) 100 mg PO DAILY [facility] Last Admin: 08/14/18 09:18 Dose: 100 mg - Labs Labs: 08/14/18 07:30 08/14/18 05:30 PT 13.9 SECONDS (9.4-12.5) H 08/13/18 06:00 INR 1.20 08/13/18 06:00 Attending/Attestation - Attestation I have personally seen and examined this patient.: Yes I have fully participated in the care of the patient.: Yes I have reviewed all pertinent clinical information, including history, physical exam and plan: Yes Notes (Text): This is an addendum to GI progress report dictated by the GI Fellow.The patient was seen and examined earlier. Medical records, lab studies, imagings were reviewed. Last 24 hours events reviewed. Agreed with the above treatment plan as outlined in GI Fellow 's notes with the addition of the following Status post EUS guided pancreatic lesion biopsy On examination abdomen soft non-tender Followup pathology Status post FNB of the pancreatic lesion Elevated LFT Dilated CBD Followup LFT Followup of the Path On low dose diflucan, will reduce the dose to 50mg Will recommend to change it to nystatin at the time of discharge Patient was strictly advised to avoid alcohol 08/14/18 23:20
--- NOTE | 2018-08-14 16:11 | CP.PCM.PN ---
<Beck Fowler - Last Filed: 08/14/18 15:55> Subjective - Date & Time of Evaluation Date of Evaluation: 08/14/18 Time of Evaluation: 16:29 - Subjective Subjective: Beck Fowler PGY1 Progress Note for Dr. Monsivais Pt was examined at bedside this morning. He reported some mild abdominal pain. He denied any chest pain, shortness of breath, nausea, vomiting, diarrhea. Objective - Vital Signs/Intake and Output Vital Signs (last 24 hours): Temp Pulse Resp BP Pulse Ox 98.3 F 68 20 131/83 100 08/14/18 06:00 08/14/18 06:00 08/14/18 06:00 08/14/18 06:00 08/14/18 06:00 Intake and Output: 08/14/18 08/14/18 06:59 18:59 Intake Total 1000 Output Total 800 Balance 200 - Medications Medications: Current Medications Albuterol/Ipratropium (Duoneb 3 Mg/0.5 Mg (3 Ml) Ud) 3 ml IH [id number] PRN PRN Reason: Shortness of Breath Fluconazole (Diflucan) 50 mg PO DAILY [facility]; Protocol Folic Acid (Folic Acid) 1 mg PO DAILY [facility] Last Admin: 08/14/18 09:18 Dose: 1 mg Sodium Chloride (Sodium Chloride 0.9%) 1,000 mls @ 100 mls/hr IV .Q10H [facility] Lactulose (Enulose) 10 gm PO DAILY [facility] Last Admin: 08/14/18 09:18 Dose: 10 gm Lorazepam (Ativan) 1 mg IVP Q2 PRN; Protocol PRN Reason: Symptoms of alcohol withdrawl Last Admin: 08/08/18 14:50 Dose: 1 mg Lorazepam (Ativan) 0.5 mg PO TID [facility]; Protocol Last Admin: 08/14/18 14:15 Dose: Not Given Ondansetron HCl (Zofran Inj) 4 mg IVP Q4H PRN PRN Reason: Nausea/Vomiting Last Admin: 08/08/18 09:01 Dose: 4 mg Pantoprazole Sodium (Protonix Ec Tab) 40 mg PO 0600 [facility] Last Admin: 08/14/18 06:05 Dose: 40 mg Thiamine HCl (Vitamin B1 Tab) 100 mg PO DAILY [facility] Last Admin: 08/14/18 09:18 Dose: 100 mg - Labs Labs: 08/14/18 07:30 08/14/18 05:30 PT 13.9 SECONDS (9.4-12.5) H 08/13/18 06:00 INR 1.20 08/13/18 06:00 - Constitutional Appears: Well, No Acute Distress - Head Exam Head Exam: ATRAUMATIC, NORMOCEPHALIC - Eye Exam Pupil Exam: NORMAL ACCOMODATION - ENT Exam ENT Exam: Mucous Membranes Moist - Neck Exam Neck Exam: Normal Inspection - Respiratory Exam Respiratory Exam: Clear to Ausculation Bilateral, NORMAL BREATHING PATTERN. absent: Wheezes - Cardiovascular Exam Cardiovascular Exam: REGULAR RHYTHM, +S1, +S2 - GI/Abdominal Exam GI & Abdominal Exam: Soft, Normal Bowel Sounds. absent: Tenderness - Extremities Exam Extremities Exam: Normal Inspection. absent: Pedal Edema - Back Exam Back Exam: NORMAL INSPECTION - Neurological Exam Neurological Exam: Alert, Awake Assessment and Plan - Assessment and Plan (Free Text) Assessment: 48 yo M with PMH extensive EtOH abuse, pancreatic tail lesion who was brought in by ambulance on 08/07/18 for evaluation of seizure activity prior to arrival. Pt was recently admitted on 07/23/18 for abdominal pain. Plan: Pancreatic Mass: Pseudocyst Vs Malignancy - GI: Repeat EUS/FNB yesterday, f/u results - report: mass of pancreatic tail, esophageal plaques consistent w/ candidiasis found - GI consulted, Dr. Hickey - recs appreciated Oral Candidiasis - EUS report: esophageal plaques consistent w/ candidiasis found - started fluconazole 50mg PO daily (half dose) as pt has small body habitus and chronic liver dz, as per GI - d/c home w/ nystatin as per GI - GI consulted, Dr. Hickey, recs appreciated - ID consulted, Dr. Mcnulty, f/u recs Alcohol withdrawal, s/p seizure activity - CIWA 5 - ativan 1 mg IVP Q2H PRN - decrease to ativan 0.5 mg IVP TID [facility] - contiue lactulose - fall, seizure and aspiration precautions - Neuro consulted, Dr. Lynn: likely due to alcohol intoxication, no indication for anti-seizure meds. recs appreciated. Transaminitis - AST: 209 today from 194 - ALT: 215 today from 199 - ALP: 205 today from 185 - Tbili: 5.3 today from 3.5 - Zofran PRN nausea Chronic Pancreatitis - EUS report: dilatation of CBD 11mm, pancreatic parenchymal abnormalities suggesting chronic pancreatitis - prednisone d/c due to candidiasis tx SIRS - WBC 10.0, resolved leukocytosis - pt afebrile - BCx negative x5 - ID consulted, Dr. Mcnulty: no antibiotics indicated at this time, recs appreciated Hypokalemia - K 3.4 today, repleted - continue to monitor Macrocytic anemia - Hb 13.8 today - pt asymptomatic and hemodynamically stable - continue to monitor Ppx - Protonix - SCDs - advance to regular diet Pt seen, examined, assessment, and plan discussed with Dr Monsivais. <Codie Monsivais - Last Filed: 08/14/18 18:17> Objective - Vital Signs/Intake and Output Vital Signs (last 24 hours): Temp Pulse Resp BP Pulse Ox 98.5 F 85 18 127/89 99 08/14/18 17:29 08/14/18 17:29 08/14/18 17:29 08/14/18 17:29 08/14/18 17:29 Intake and Output: 08/14/18 08/14/18 06:59 18:59 Intake Total 1000 Output Total 800 Balance 200 - Medications Medications: Current Medications Albuterol/Ipratropium (Duoneb 3 Mg/0.5 Mg (3 Ml) Ud) 3 ml IH [id number] PRN PRN Reason: Shortness of Breath Fluconazole (Diflucan) 50 mg PO DAILY [facility]; Protocol Folic Acid (Folic Acid) 1 mg PO DAILY [facility] Last Admin: 08/14/18 09:18 Dose: 1 mg Sodium Chloride (Sodium Chloride 0.9%) 1,000 mls @ 100 mls/hr IV .Q10H [facility] Lactulose (Enulose) 10 gm PO DAILY [facility] Last Admin: 08/14/18 09:18 Dose: 10 gm Lorazepam (Ativan) 1 mg IVP Q2 PRN; Protocol PRN Reason: Symptoms of alcohol withdrawl Last Admin: 08/08/18 14:50 Dose: 1 mg Lorazepam (Ativan) 0.5 mg PO TID [facility]; Protocol Last Admin: 08/14/18 14:15 Dose: Not Given Ondansetron HCl (Zofran Inj) 4 mg IVP Q4H PRN PRN Reason: Nausea/Vomiting Last Admin: 08/08/18 09:01 Dose: 4 mg Pantoprazole Sodium (Protonix Ec Tab) 40 mg PO 0600 [facility] Last Admin: 08/14/18 06:05 Dose: 40 mg Thiamine HCl (Vitamin B1 Tab) 100 mg PO DAILY [facility] Last Admin: 08/14/18 09:18 Dose: 100 mg - Labs Labs: 08/14/18 07:30 08/14/18 05:30 PT 13.9 SECONDS (9.4-12.5) H 08/13/18 06:00 INR 1.20 08/13/18 06:00 Attending/Attestation - Attestation I have personally seen and examined this patient.: Yes I have fully participated in the care of the patient.: Yes I have reviewed all pertinent clinical information, including history, physical exam and plan: Yes Notes (Text): 08/14/18 18:14 48 year old male with past medical history of alcohol abuse who presented with seizure. He was recently discharged last week but continued to drink alcohol. Seizure was likely alcohol withdrawal seizure. Neurology evaluation was appreciated. Patient is on tapering ativan víctor/prn for withdrawal symptoms. He was counselled on alcohol cessation. Unfortunately he fails to comply. GI is following and patient is s/p EUS/FNB yesterday. Awaiting biopsy. Patient was started on diflucan for candidiasis. Continue with monitor LFTs closely. Will replete and repeat potassium. Codie Monsivais MD Hospitalist.
[2018-08-14] MEDS ORDERED: Potassium Chloride 20 mEq ER Tab PO STA (16:42)
[2018-08-15] MEDS: Pantoprazole 40 mg EC Tab PO SCH (05:13)
[2018-08-15 06:44] LABS: BASO # 0.03 K/mm3 (0.0-2.0); BASO % 0.3 % (0.0-3.0); EOS # 0.1 (0.0-0.7); EOS % 0.9 % (1.5-5.0); GRAN # 6.44 (1.4-6.5); GRAN % 67.5 % (50.0-68.0); HEMOGLOBIN 12.6 g/dL (14.0-18.0); LYMPH # 2.3 (1.2-3.4); MEAN CELL VOLUME 112.3 fl (80.0-105.0); MEAN CORPUSCULAR HGB CONC 33.8 g/dl (31.0-37.0); MEAN PLATELET VOLUME 10.5 fl (7.0-11.0); MONO # 0.7 (0.1-0.6); MONO % 7.3 % (1.0-6.0); RBC 3.32 10^6/uL (3.5-6.1); RED CELL DISTRIBUTION WIDTH 13.4 % (11.5-14.5); WHITE BLOOD COUNT 9.6 10^3/ul (4.5-11.0)
[2018-08-15 07:03] LABS: ALBUMIN 3.8 g/dL (3.0-4.8); ALT/SGPT 162 U/L (7-56); AST/SGOT 146 U/L (17-59); BLOOD UREA NITROGEN 10 mg/dL (7-21); CALCIUM 9.5 mg/dL (8.4-10.5); GFR NON-AFRICAN AMERICAN > 60
[2018-08-15] MEDS ORDERED: Benzocaine/Menthol (Cepacol) Lozenge MT PRN (07:35)
--- NOTE | 2018-08-15 08:19 | CP.PCM.PN ---
<Seamus Robles - Last Filed: 08/15/18 08:16> Subjective - Date & Time of Evaluation Date of Evaluation: 08/15/18 Time of Evaluation: 08:16 - Subjective Subjective: Patient denies abdominal pain. Tolerating diet. Complains of hard stool. He is tolerating antifungal medications. Objective - Vital Signs/Intake and Output Vital Signs (last 24 hours): Temp Pulse Resp BP Pulse Ox 98.5 F 85 18 127/89 99 08/14/18 17:29 08/14/18 17:29 08/14/18 17:29 08/14/18 17:29 08/14/18 17:29 Intake and Output: 08/15/18 08/15/18 06:59 18:59 Intake Total 720 Output Total 1300 Balance -580 - Medications Medications: Current Medications Albuterol/Ipratropium (Duoneb 3 Mg/0.5 Mg (3 Ml) Ud) 3 ml IH [id number] PRN PRN Reason: Shortness of Breath Benzocaine/Menthol (Cepacol Sore Throat) 1 meron MT Q2H PRN PRN Reason: Sore Throat Fluconazole (Diflucan) 50 mg PO DAILY [facility]; Protocol Folic Acid (Folic Acid) 1 mg PO DAILY [facility] Last Admin: 08/14/18 09:18 Dose: 1 mg Ibuprofen (Motrin Tab) 400 mg PO Q6H PRN PRN Reason: Pain, moderate (4-7) Lactulose (Enulose) 10 gm PO DAILY [facility] Last Admin: 08/14/18 09:18 Dose: 10 gm Lorazepam (Ativan) 1 mg IVP Q2 PRN; Protocol PRN Reason: Symptoms of alcohol withdrawl Last Admin: 08/08/18 14:50 Dose: 1 mg Lorazepam (Ativan) 0.5 mg PO TID [facility]; Protocol Last Admin: 08/14/18 21:26 Dose: 0.5 mg Ondansetron HCl (Zofran Inj) 4 mg IVP Q4H PRN PRN Reason: Nausea/Vomiting Last Admin: 08/08/18 09:01 Dose: 4 mg Pantoprazole Sodium (Protonix Ec Tab) 40 mg PO 0600 [facility] Last Admin: 08/15/18 05:13 Dose: 40 mg Thiamine HCl (Vitamin B1 Tab) 100 mg PO DAILY [facility] Last Admin: 08/14/18 09:18 Dose: 100 mg - Labs Labs: 08/15/18 05:30 08/15/18 05:30 PT 13.9 SECONDS (9.4-12.5) H 08/13/18 06:00 INR 1.20 08/13/18 06:00 - Constitutional Appears: Non-toxic, No Acute Distress - Eye Exam Eye Exam: EOMI, Normal appearance - ENT Exam ENT Exam: Mucous Membranes Moist - Respiratory Exam Respiratory Exam: Clear to Ausculation Bilateral, NORMAL BREATHING PATTERN - Cardiovascular Exam Cardiovascular Exam: REGULAR RHYTHM, +S1, +S2 - GI/Abdominal Exam GI & Abdominal Exam: Soft, Normal Bowel Sounds. absent: Tenderness - Extremities Exam Extremities Exam: Normal Inspection - Neurological Exam Neurological Exam: Alert, Awake, Oriented x3 - Psychiatric Exam Psychiatric exam: Normal Affect, Normal Mood - Skin Skin Exam: Dry, Normal Color Assessment and Plan - Assessment and Plan (Free Text) Assessment: 48M with extensive etoh history. #Alcoholic Hepatitis - 07/28/18 MELD 27, DF 60. Now, MELD 16 and DF 14. #Pancreatic mass - previously found nondiagnostic on EUS/FNA, 4cm now, pre viously 2.5cm. #Jayne esophagitis #Chronic pancreatitis #Seizure #Homeless #Chronic anemia #Weight loss PLAN: -Regarding pancreatic mass. It appears it has enlarged. This could be pancreatic pseudocyst vs malignancy. The EUS/FNA was non-diagnostic on 11/03. -EUS/FNB 08/13/18 for pancreatic mass, good biopsy specimens taken. -Follow up pathology for pancreatic mass -Continue supportive care and treatment of seizures. -Started on fluconazole. Continue at half-dose (50mg per day) in setting of small body habitus and liver disease. Monitor LFTs. When discharged, recommend switching to nystatin (swallow) x 2 weeks. Avoid fluconazole as outpt as he will likely go back to drinking EtOH and develop liver failure. -Advised to avoid EtOH -Soft diet <Ruperto,Kovil V - Last Filed: 08/16/18 22:30> Objective - Vital Signs/Intake and Output Vital Signs (last 24 hours): Temp Pulse Resp BP Pulse Ox 99.3 F 65 20 120/90 100 08/16/18 17:12 08/16/18 17:12 08/16/18 17:12 08/16/18 17:12 08/16/18 17:12 - Medications Medications: Current Medications Acetaminophen (Tylenol 325mg Tab) 325 mg PO Q4H PRN PRN Reason: Headache Last Admin: 08/16/18 21:55 Dose: 325 mg Albuterol/Ipratropium (Duoneb 3 Mg/0.5 Mg (3 Ml) Ud) 3 ml IH [id number] PRN PRN Reason: Shortness of Breath Benzocaine/Menthol (Cepacol Sore Throat) 1 meron MT Q2H PRN PRN Reason: Sore Throat Last Admin: 08/15/18 09:30 Dose: 1 meron Docusate Sodium (Colace) 100 mg PO BID [facility] Last Admin: 08/16/18 17:00 Dose: 100 mg Fluconazole (Diflucan) 100 mg PO DAILY [facility]; Protocol Last Admin: 08/16/18 12:43 Dose: Not Given Folic Acid (Folic Acid) 1 mg PO DAILY [facility] Last Admin: 08/16/18 10:10 Dose: 1 mg Lactulose (Enulose) 10 gm PO DAILY [facility] Last Admin: 08/16/18 10:10 Dose: 10 gm Lorazepam (Ativan) 1 mg PO Q4H PRN; Protocol PRN Reason: Anxiety Last Admin: 08/16/18 21:57 Dose: 1 mg Pantoprazole Sodium (Protonix Ec Tab) 40 mg PO 0600 [facility] Last Admin: 08/16/18 06:41 Dose: 40 mg Thiamine HCl (Vitamin B1 Tab) 100 mg PO DAILY [facility] Last Admin: 08/16/18 10:10 Dose: 100 mg - Labs Labs: 08/16/18 07:30 08/16/18 07:30 PT 13.9 SECONDS (9.4-12.5) H 08/13/18 06:00 INR 1.20 08/13/18 06:00 Attending/Attestation - Attestation I have personally seen and examined this patient.: Yes I have fully participated in the care of the patient.: Yes I have reviewed all pertinent clinical information, including history, physical exam and plan: Yes Notes (Text): This is an addendum to GI progress report dictated by the GI Fellow.The patient was seen and examined earlier. Medical records, lab studies, imagings were reviewed. Last 24 hours events reviewed. Agreed with the above treatment plan as outlined in GI Fellow 's notes with the addition of the following Awaiting for Path report no complaints of abdominal pain On diflucan for esophageal candidiasis 08/16/18 22:28
--- NOTE | 2018-08-15 08:24 | PN ---
DATE: 08/14/2018 SUBJECTIVE: The patient is in bed, in no acute distress, was seen earlier this morning in room 364, bed 1. The patient is able to tolerate p.o. PHYSICAL EXAMINATION: VITAL SIGNS: Temperature is 98, blood pressure is 120/80, respiratory rate of 16. HEENT: Examination of HEENT is unremarkable. NECK: Supple. LUNGS: Have decreased breath sounds. HEART: Normal S1, S2. ABDOMEN: Soft and nontender. LABORATORY DATA: Reveals a white count of 10,000. Coagulation is noted. Chemistries revealed a BUN of 7 and creatinine of 0.5. Urinalysis is noted. Microbiology reveals blood cultures are negative. ASSESSMENT AND PLAN: He is a 48-year-old male with systemic inflammatory response syndrome, alcoholic hepatitis, severe sepsis, acute renal failure, Escherichia coli bacteremia, urinary tract infection, and severe acute alcoholic hepatitis, improving, off of antibiotics. The patient had an endoscopy, was found to have candidal esophagitis. Currently on fluconazole p.o. The patient had an HIV test on 07/24/2018, which was HIV negative. We will follow with you. Bill Mcnulty MD
[2018-08-15 13:25] LABS: HEMOGLOBIN 11.8 g/dL (14.0-18.0)
--- NOTE | 2018-08-15 15:15 | CP.PCM.PN ---
<JanethEsmerkyleaudi - Last Filed: 08/15/18 15:26> Subjective - Date & Time of Evaluation Date of Evaluation: 08/15/18 Time of Evaluation: 11:00 - Subjective Subjective: Beck Fowler PGY1 Progress Note for Dr. Monsivais Pt was examined at bedside this morning. He reports normal forming stools. He reports some mild throat pain. He denies any headache, chest pain, shortness of breath, abdominal pain, diarrhea, constipation. Update: Pt later reported episode of blood per rectum, which he describes as bright red filling the toilet bowel. Objective - Vital Signs/Intake and Output Vital Signs (last 24 hours): Temp Pulse Resp BP Pulse Ox 99.4 F 90 20 119/75 98 08/15/18 06:00 08/15/18 06:00 08/15/18 06:00 08/15/18 06:00 08/15/18 06:00 Intake and Output: 08/15/18 08/15/18 06:59 18:59 Intake Total 720 Output Total 1300 Balance -580 - Medications Medications: Current Medications Albuterol/Ipratropium (Duoneb 3 Mg/0.5 Mg (3 Ml) Ud) 3 ml IH [id number] PRN PRN Reason: Shortness of Breath Benzocaine/Menthol (Cepacol Sore Throat) 1 meron MT Q2H PRN PRN Reason: Sore Throat Last Admin: 08/15/18 09:30 Dose: 1 meron Docusate Sodium (Colace) 100 mg PO BID [facility] Last Admin: 08/15/18 09:28 Dose: 100 mg Fluconazole (Diflucan) 50 mg PO DAILY JOHNNIE; Protocol Last Admin: 08/15/18 09:29 Dose: 50 mg Folic Acid (Folic Acid) 1 mg PO DAILY JOHNNIE Last Admin: 08/15/18 09:29 Dose: 1 mg Lactulose (Enulose) 10 gm PO DAILY JOHNNIE Last Admin: 08/15/18 09:30 Dose: 10 gm Lorazepam (Ativan) 1 mg IVP Q2 PRN; Protocol PRN Reason: Symptoms of alcohol withdrawl Last Admin: 08/08/18 14:50 Dose: 1 mg Lorazepam (Ativan) 0.5 mg PO TID JOHNNIE; Protocol Last Admin: 08/15/18 14:03 Dose: 0.5 mg Ondansetron HCl (Zofran Inj) 4 mg IVP Q4H PRN PRN Reason: Nausea/Vomiting Last Admin: 08/08/18 09:01 Dose: 4 mg Pantoprazole Sodium (Protonix Ec Tab) 40 mg PO 0600 [facility] Last Admin: 08/15/18 05:13 Dose: 40 mg Thiamine HCl (Vitamin B1 Tab) 100 mg PO DAILY [facility] Last Admin: 08/15/18 09:29 Dose: 100 mg - Labs Labs: 08/15/18 13:20 08/15/18 05:30 PT 13.9 SECONDS (9.4-12.5) H 08/13/18 06:00 INR 1.20 08/13/18 06:00 - Constitutional Appears: Well, No Acute Distress - Head Exam Head Exam: ATRAUMATIC, NORMOCEPHALIC - Eye Exam Eye Exam: EOMI, Normal appearance, PERRL Pupil Exam: NORMAL ACCOMODATION - ENT Exam ENT Exam: Mucous Membranes Moist, Normal Exam - Neck Exam Neck Exam: Normal Inspection. absent: Lymphadenopathy - Respiratory Exam Respiratory Exam: Clear to Ausculation Bilateral, NORMAL BREATHING PATTERN. absent: Rales, Rhonchi, Wheezes - Cardiovascular Exam Cardiovascular Exam: REGULAR RHYTHM, +S1, +S2. absent: Gallop, Rubs, Murmur - GI/Abdominal Exam GI & Abdominal Exam: Soft, Normal Bowel Sounds. absent: Distended, Tenderness - Extremities Exam Extremities Exam: Full ROM, Normal Inspection. absent: Calf Tenderness, Pedal Edema - Neurological Exam Neurological Exam: Alert, Awake, Oriented x3. absent: Motor Sensory Deficit - Psychiatric Exam Psychiatric exam: Normal Affect, Normal Mood. absent: Agitated, Anxious Assessment and Plan - Assessment and Plan (Free Text) Assessment: 48 yo M with PMH extensive EtOH abuse, pancreatic tail lesion who was brought in by ambulance on 08/07/18 for evaluation of seizure activity prior to arrival. Pt was recently admitted on 07/23/18 for abdominal pain. Plan: Pancreatic Mass: Pseudocyst Vs Malignancy - GI: Repeat EUS/FNB 08/13, f/u results - EUS report: mass of pancreatic tail, esophageal plaques consistent w/candidiasis found - GI consulted, Dr. Hickey - recs appreciated Oral Candidiasis - EUS report: esophageal plaques consistent w/ candidiasis found - continue fluconazole 50mg PO daily (half dose) as pt has small body habitus and chronic liver dz, as per GI and ID - d/c home w/ nystatin as per GI - GI consulted, Dr. Hickey, recs appreciated - ID consulted, Dr. Mcnulty, recs appreciated Reported Blood per Rectum - pt reported bright red blood filling toilet bowel - report after administration of 1st dose colace - f/u if recurring episodes - H/H 11.8/33.7 - continue to monitor - GI consulted, Dr. Chowdhury Alcohol withdrawal, s/p seizure activity - CIWA 7 on 08/14 - ativan 1 mg IVP Q2H PRN - continue ativan 0.5 mg IVP TID JOHNNIE - contiue lactulose - fall, seizure and aspiration precautions - Neuro consulted, Dr. Lynn: likely due to alcohol intoxication, no indication for anti-seizure meds. recs appreciated. Transaminitis - AST: 146 today from 209 - ALT: 162today from 215 - ALP: 191 today from 205 - Tbili: 4.5 today from 5.3 - Zofran PRN nausea Chronic Pancreatitis - EUS report: dilatation of CBD 11mm, pancreatic parenchymal abnormalities suggesting chronic pancreatitis SIRS - WBC 9.6, resolved leukocytosis - pt afebrile - BCx negative final - ID consulted, Dr. Mcnulty: no antibiotics indicated at this time, recs appreciated Hypokalemia - K 3.9 today, resolved - continue to monitor Macrocytic anemia - Hb 11.8 today from 13.8 - pt reported blood per rectum, possible cause - pt hemodynamically stable - continue to monitor Ppx - Protonix - SCDs - advance to regular diet Dispo - PT: home Pt seen, examined, assessment, and plan discussed with Dr Monsivais. <Codie Monsivais - Last Filed: 08/15/18 17:00> Objective - Vital Signs/Intake and Output Vital Signs (last 24 hours): Temp Pulse Resp BP Pulse Ox 98.8 F 110 H 20 119/77 100 08/15/18 16:46 08/15/18 16:46 08/15/18 16:46 08/15/18 16:46 08/15/18 16:46 Intake and Output: 08/15/18 08/15/18 06:59 18:59 Intake Total 720 Output Total 1300 Balance -580 - Medications Medications: Current Medications Albuterol/Ipratropium (Duoneb 3 Mg/0.5 Mg (3 Ml) Ud) 3 ml IH [id number] PRN PRN Reason: Shortness of Breath Benzocaine/Menthol (Cepacol Sore Throat) 1 meron MT Q2H PRN PRN Reason: Sore Throat Last Admin: 08/15/18 09:30 Dose: 1 meron Docusate Sodium (Colace) 100 mg PO BID [facility] Last Admin: 08/15/18 09:28 Dose: 100 mg Fluconazole (Diflucan) 50 mg PO DAILY JOHNNIE; Protocol Last Admin: 08/15/18 09:29 Dose: 50 mg Folic Acid (Folic Acid) 1 mg PO DAILY [facility]IE Last Admin: 08/15/18 09:29 Dose: 1 mg Lactulose (Enulose) 10 gm PO DAILY JOHNNIE Last Admin: 08/15/18 09:30 Dose: 10 gm Lorazepam (Ativan) 1 mg IVP Q2 PRN; Protocol PRN Reason: Symptoms of alcohol withdrawl Last Admin: 08/08/18 14:50 Dose: 1 mg Lorazepam (Ativan) 0.5 mg PO TID JOHNNIE; Protocol Last Admin: 08/15/18 14:03 Dose: 0.5 mg Ondansetron HCl (Zofran Inj) 4 mg IVP Q4H PRN PRN Reason: Nausea/Vomiting Last Admin: 08/08/18 09:01 Dose: 4 mg Pantoprazole Sodium (Protonix Ec Tab) 40 mg PO 0600 [facility] Last Admin: 08/15/18 05:13 Dose: 40 mg Thiamine HCl (Vitamin B1 Tab) 100 mg PO DAILY [facility] Last Admin: 08/15/18 09:29 Dose: 100 mg - Labs Labs: 08/15/18 13:20 08/15/18 05:30 PT 13.9 SECONDS (9.4-12.5) H 08/13/18 06:00 INR 1.20 08/13/18 06:00 Attending/Attestation - Attestation I have personally seen and examined this patient.: Yes I have fully participated in the care of the patient.: Yes I have reviewed all pertinent clinical information, including history, physical exam and plan: Yes Notes (Text): 08/15/18 16:58 48 year old male with past medical history of alcohol abuse who presented with seizure. He was recently discharged last week but continued to drink alcohol. Seizure was likely alcohol withdrawal seizure. Neurology evaluation was appreciated. Patient is on tapering ativan johnnie/prn for withdrawal symptoms. He was counselled on alcohol cessation. Unfortunately he fails to comply. GI is following and patient is s/p EUS/FNB on Saturday, still pendng biopsy. Given he is homeless with poor outpatient follow up compliance will await biopsy which will likely come back by Saturday. When mentioning plan for anticipated discharge he mentioned noting blood in stool, unwitnessed. H/H is stable. GI follow up requested. Patient was started on diflucan for candidiasis. Continue with monitor LFTs closely. Codie Monsivais MD Hospitalist.
--- NOTE | 2018-08-15 16:41 | CP.PCM.PN ---
Subjective - Date & Time of Evaluation Date of Evaluation: 08/14/18 Time of Evaluation: 10:15 - Subjective Subjective: Walking around his bed, no fevers, no nausea, no abdominal pain. Objective - Vital Signs/Intake and Output Vital Signs (last 24 hours): Temp Pulse Resp BP Pulse Ox 98.5 F 85 18 127/89 99 08/14/18 17:29 08/14/18 17:29 08/14/18 17:29 08/14/18 17:29 08/14/18 17:29 Intake and Output: 08/14/18 08/15/18 18:59 06:59 Intake Total 1820 Output Total 650 Balance 1170 - Medications Medications: Current Medications Albuterol/Ipratropium (Duoneb 3 Mg/0.5 Mg (3 Ml) Ud) 3 ml IH [id number] PRN PRN Reason: Shortness of Breath Fluconazole (Diflucan) 50 mg PO DAILY [facility]; Protocol Folic Acid (Folic Acid) 1 mg PO DAILY [facility] Last Admin: 08/14/18 09:18 Dose: 1 mg Sodium Chloride (Sodium Chloride 0.9%) 1,000 mls @ 100 mls/hr IV .Q10H [facility] Lactulose (Enulose) 10 gm PO DAILY [facility] Last Admin: 08/14/18 09:18 Dose: 10 gm Lorazepam (Ativan) 1 mg IVP Q2 PRN; Protocol PRN Reason: Symptoms of alcohol withdrawl Last Admin: 08/08/18 14:50 Dose: 1 mg Lorazepam (Ativan) 0.5 mg PO TID [facility]; Protocol Last Admin: 08/14/18 21:26 Dose: 0.5 mg Ondansetron HCl (Zofran Inj) 4 mg IVP Q4H PRN PRN Reason: Nausea/Vomiting Last Admin: 08/08/18 09:01 Dose: 4 mg Pantoprazole Sodium (Protonix Ec Tab) 40 mg PO 0600 [facility] Last Admin: 08/14/18 06:05 Dose: 40 mg Thiamine HCl (Vitamin B1 Tab) 100 mg PO DAILY [facility] Last Admin: 08/14/18 09:18 Dose: 100 mg - Labs Labs: 08/14/18 07:30 08/14/18 05:30 PT 13.9 SECONDS (9.4-12.5) H 08/13/18 06:00 INR 1.20 08/13/18 06:00 - Constitutional Appears: Chronically Ill - Head Exam Head Exam: NORMAL INSPECTION - Respiratory Exam Respiratory Exam: Decreased Breath Sounds - Cardiovascular Exam Cardiovascular Exam: +S1, +S2 - GI/Abdominal Exam GI & Abdominal Exam: Soft. absent: Tenderness Assessment and Plan - Assessment and Plan (Free Text) Plan: Assessment SIRS due to alcoholic hepatitis history of severe sepsis S/P acute renal failure due to E. coli bacteremia, probably due to UTI in this patient with severe acute alcoholic hepatitis, clinically improving acute renal failure chronic ethanol abuse pancreatic tail lesion Plan continue to monitor off antibiotics since he is at risk for infections overall prognosis is poor
[2018-08-15 20:30] LABS: URINE BILIRUBIN NEGATIVE (NEGATIVE); URINE BLOOD NEGATIVE (NEGATIVE); URINE GLUCOSE (UA) NEGATIVE (NEGATIVE); URINE LEUKOCYTE ESTERASE NEGATIVE Leu/uL (NEGATIVE); URINE PROTEIN NEGATIVE mg/dL (<30 mg/dL); URINE UROBILINOGEN 0.2 E.U./dL (<1 E.U./dL)
[2018-08-15 20:31] LABS: URINE APPEARANCE CLEAR (CLEAR); URINE COLOR YELLOW (YELLOW)
[2018-08-16] MEDS: Pantoprazole 40 mg EC Tab PO SCH (06:41)
[2018-08-16 07:54] LABS: BASO # 0.04 K/mm3 (0.0-2.0); BASO % 0.4 % (0.0-3.0); EOS # 0.2 (0.0-0.7); EOS % 1.6 % (1.5-5.0); GRAN # 5.79 (1.4-6.5); GRAN % 62.7 % (50.0-68.0); HEMOGLOBIN 11.9 g/dL (14.0-18.0); LYMPH # 2.7 (1.2-3.4); MEAN CELL VOLUME 112.7 fl (80.0-105.0); MEAN CORPUSCULAR HEMOGLOBIN 37.8 pg (25.0-35.0); MEAN CORPUSCULAR HGB CONC 33.5 g/dl (31.0-37.0); MEAN PLATELET VOLUME 10.6 fl (7.0-11.0); MONO # 0.6 (0.1-0.6); MONO % 6.3 % (1.0-6.0); RBC 3.15 10^6/uL (3.5-6.1); RED CELL DISTRIBUTION WIDTH 13.5 % (11.5-14.5); WHITE BLOOD COUNT 9.2 10^3/ul (4.5-11.0)
[2018-08-16 08:11] LABS: ALBUMIN 3.7 g/dL (3.0-4.8); ALT/SGPT 134 U/L (7-56); AST/SGOT 134 U/L (17-59); BLOOD UREA NITROGEN 10 mg/dL (7-21); CALCIUM 9.3 mg/dL (8.4-10.5); GFR NON-AFRICAN AMERICAN > 60
[2018-08-16] MEDS ORDERED: Potassium Chloride 20 mEq ER Tab PO STA (11:10)
--- NOTE | 2018-08-16 12:29 | CP.PCM.PN ---
<Beck Fowler - Last Filed: 08/16/18 14:00> Subjective - Date & Time of Evaluation Date of Evaluation: 08/16/18 Time of Evaluation: 12:18 - Subjective Subjective: Beck Fowler PGY1 Progress Note for Dr. Monsivais Objective - Vital Signs/Intake and Output Vital Signs (last 24 hours): Temp Pulse Resp BP Pulse Ox 98.0 F 84 20 115/71 99 08/16/18 06:00 08/16/18 06:00 08/16/18 06:00 08/16/18 06:00 08/16/18 06:00 Intake and Output: 08/16/18 08/16/18 06:59 18:59 Intake Total 720 Balance 720 - Medications Medications: Current Medications Albuterol/Ipratropium (Duoneb 3 Mg/0.5 Mg (3 Ml) Ud) 3 ml IH [id number] PRN PRN Reason: Shortness of Breath Benzocaine/Menthol (Cepacol Sore Throat) 1 meron MT Q2H PRN PRN Reason: Sore Throat Last Admin: 08/15/18 09:30 Dose: 1 meron Docusate Sodium (Colace) 100 mg PO BID [facility] Last Admin: 08/16/18 10:09 Dose: 100 mg Fluconazole (Diflucan) 100 mg PO DAILY JOHNNIE; Protocol Folic Acid (Folic Acid) 1 mg PO DAILY [facility] Last Admin: 08/16/18 10:10 Dose: 1 mg Lactulose (Enulose) 10 gm PO DAILY JOHNNIE Last Admin: 08/16/18 10:10 Dose: 10 gm Lorazepam (Ativan) 1 mg PO Q4H PRN; Protocol PRN Reason: Anxiety Pantoprazole Sodium (Protonix Ec Tab) 40 mg PO 0600 [facility] Last Admin: 08/16/18 06:41 Dose: 40 mg Thiamine HCl (Vitamin B1 Tab) 100 mg PO DAILY [facility] Last Admin: 08/16/18 10:10 Dose: 100 mg - Labs Labs: 08/16/18 07:30 08/16/18 07:30 PT 13.9 SECONDS (9.4-12.5) H 08/13/18 06:00 INR 1.20 08/13/18 06:00 Assessment and Plan - Assessment and Plan (Free Text) Assessment: 48 yo M with PMH extensive EtOH abuse, pancreatic tail lesion who was brought in by ambulance on 08/07/18 for evaluation of seizure activity prior to arrival. Pt was recently admitted on 07/23/18 for abdominal pain. Plan: Pancreatic Mass: Pseudocyst Vs Malignancy - GI: Repeat EUS/FNB 08/13, f/u results - EUS report: mass of pancreatic tail, esophageal plaques consistent w/candidia sis found - GI consulted, Dr. Hickey - recs appreciated Oral Candidiasis - EUS report: esophageal plaques consistent w/ candidiasis found - start fluconazole 1000mg PO daily as per ID - d/c home w/ nystatin as per GI - GI consulted, Dr. Hickey, recs appreciated - ID consulted, Dr. Mcnulty, recs appreciated Reported Blood per Rectum - pt reported bright red blood clots in toilet bowel this morning, GI aware - report after administration of 1st dose colace - f/u if recurring episodes - H/H 11.9/35.5, stable - continue to monitor - GI consulted, Dr. Chowdhury Alcohol withdrawal, s/p seizure activity - ativan 1 mg IVP Q4H PRN - d/c ativan 0.5 mg IVP TID JOHNNIE - contiue lactulose - fall, seizure and aspiration precautions - Neuro consulted, Dr. Lynn: likely due to alcohol intoxication, no indication for anti-seizure meds. recs appreciated. Transaminitis - AST: 134 today from 146 - ALT: 134 today from 162 - ALP: 175 today from 191 - Tbili: 3.7 today from 4.5 - Zofran PRN nausea Chronic Pancreatitis - EUS report: dilatation of CBD 11mm, pancreatic parenchymal abnormalities suggesting chronic pancreatitis SIRS - WBC 9.2, resolved leukocytosis - pt afebrile - BCx negative final - ID consulted, Dr. Mcnulty: no antibiotics indicated at this time, recs appreciated Hypokalemia - K 3.5 today, repleted - continue to monitor Macrocytic anemia - Hb 11.9 today from 11.8 - pt reported blood per rectum, possible cause - pt hemodynamically stable - continue to monitor Ppx - Protonix - SCDs - advance to regular diet Dispo - PT: home Pt seen, examined, assessment, and plan discussed with Dr Monsivais. <Codie Monsivais - Last Filed: 08/16/18 15:19> Subjective - Subjective Subjective: Patient seen and examined at bedside. No new complaints today. Denies blood in stool this morning. Objective - Vital Signs/Intake and Output Vital Signs (last 24 hours): Temp Pulse Resp BP Pulse Ox 98.0 F 84 20 115/71 99 08/16/18 06:00 08/16/18 06:00 08/16/18 06:00 08/16/18 06:00 08/16/18 06:00 Intake and Output: 08/16/18 08/16/18 06:59 18:59 Intake Total 720 Balance 720 - Medications Medications: Current Medications Acetaminophen (Tylenol 325mg Tab) 325 mg PO Q4H PRN PRN Reason: Headache Last Admin: 08/16/18 14:38 Dose: 325 mg Albuterol/Ipratropium (Duoneb 3 Mg/0.5 Mg (3 Ml) Ud) 3 ml IH [id number] PRN PRN Reason: Shortness of Breath Benzocaine/Menthol (Cepacol Sore Throat) 1 meron MT Q2H PRN PRN Reason: Sore Throat Last Admin: 08/15/18 09:30 Dose: 1 meron Docusate Sodium (Colace) 100 mg PO BID [facility] Last Admin: 08/16/18 10:09 Dose: 100 mg Fluconazole (Diflucan) 100 mg PO DAILY [facility]; Protocol Last Admin: 08/16/18 12:43 Dose: Not Given Folic Acid (Folic Acid) 1 mg PO DAILY JOHNNIE Last Admin: 08/16/18 10:10 Dose: 1 mg Lactulose (Enulose) 10 gm PO DAILY JOH[facility] Last Admin: 08/16/18 10:10 Dose: 10 gm Lorazepam (Ativan) 1 mg PO Q4H PRN; Protocol PRN Reason: Anxiety Pantoprazole Sodium (Protonix Ec Tab) 40 mg PO 0600 [facility] Last Admin: 08/16/18 06:41 Dose: 40 mg Thiamine HCl (Vitamin B1 Tab) 100 mg PO DAILY [facility] Last Admin: 08/16/18 10:10 Dose: 100 mg - Labs Labs: 08/16/18 07:30 08/16/18 07:30 PT 13.9 SECONDS (9.4-12.5) H 08/13/18 06:00 INR 1.20 08/13/18 06:00 - Constitutional Appears: Well, No Acute Distress - Head Exam Head Exam: NORMAL INSPECTION - Eye Exam Eye Exam: EOMI - ENT Exam ENT Exam: Normal Exam - Neck Exam Neck Exam: Full ROM - Respiratory Exam Respiratory Exam: Clear to Ausculation Bilateral. absent: Rhonchi, Wheezes - Cardiovascular Exam Cardiovascular Exam: REGULAR RHYTHM, +S1, +S2 - GI/Abdominal Exam GI & Abdominal Exam: Distended, Soft, Normal Bowel Sounds. absent: Tenderness - Extremities Exam Extremities Exam: Full ROM - Neurological Exam Neurological Exam: Alert, Awake, Oriented x3 Attending/Attestation - Attestation I have personally seen and examined this patient.: Yes I have fully participated in the care of the patient.: Yes I have reviewed all pertinent clinical information, including history, physical exam and plan: Yes Notes (Text): 08/16/18 15:17 48 year old male with past medical history of alcohol abuse who presented with seizure. He was recently discharged last week but continued to drink alcohol. Seizure was likely alcohol withdrawal seizure. Neurology evaluation was appreciated. Patient is on tapering ativan johnnie/prn for withdrawal symptoms. He was counselled on alcohol cessation. Unfortunately he fails to comply. GI is following and patient is s/p EUS/FNB on Saturday, still pending biopsy. Given he is homeless with poor outpatient follow up compliance will await biopsy which will likely come back by Saturday. He denies any blood in stool this morning. H/H is stable. GI is following. Patient was started on diflucan for candidiasis. Can switch to nystatin on discharge. Continue with monitor LFTs closely. Will replete and repeat potassium. Codie Monsivais MD Hospitalist.
--- NOTE | 2018-08-16 12:59 | CP.PCM.PN ---
<Carmen Momin - Last Filed: 08/16/18 12:54> Subjective - Date & Time of Evaluation Date of Evaluation: 08/16/18 Time of Evaluation: 08:30 - Subjective Subjective: PGY 5 GI Follow-up Pt seen and examined bedside Denies any abd pain, nausea, vomiting diarrhea tolerating diet ROS: 12 point ROS conducted, neg other than above Objective - Vital Signs/Intake and Output Vital Signs (last 24 hours): Temp Pulse Resp BP Pulse Ox 98.0 F 84 20 115/71 99 08/16/18 06:00 08/16/18 06:00 08/16/18 06:00 08/16/18 06:00 08/16/18 06:00 Intake and Output: 08/16/18 08/16/18 06:59 18:59 Intake Total 720 Balance 720 - Medications Medications: Current Medications Albuterol/Ipratropium (Duoneb 3 Mg/0.5 Mg (3 Ml) Ud) 3 ml IH [id number] PRN PRN Reason: Shortness of Breath Benzocaine/Menthol (Cepacol Sore Throat) 1 meron MT Q2H PRN PRN Reason: Sore Throat Last Admin: 08/15/18 09:30 Dose: 1 meron Docusate Sodium (Colace) 100 mg PO BID [facility] Last Admin: 08/16/18 10:09 Dose: 100 mg Fluconazole (Diflucan) 100 mg PO DAILY [facility]; Protocol Last Admin: 08/16/18 12:43 Dose: Not Given Folic Acid (Folic Acid) 1 mg PO DAILY [facility] Last Admin: 08/16/18 10:10 Dose: 1 mg Lactulose (Enulose) 10 gm PO DAILY [facility] Last Admin: 08/16/18 10:10 Dose: 10 gm Lorazepam (Ativan) 1 mg PO Q4H PRN; Protocol PRN Reason: Anxiety Pantoprazole Sodium (Protonix Ec Tab) 40 mg PO 0600 [facility] Last Admin: 08/16/18 06:41 Dose: 40 mg Thiamine HCl (Vitamin B1 Tab) 100 mg PO DAILY [facility] Last Admin: 08/16/18 10:10 Dose: 100 mg - Labs Labs: 08/16/18 07:30 08/16/18 07:30 PT 13.9 SECONDS (9.4-12.5) H 09/26/18 06:00 INR 1.20 08/13/18 06:00 - Constitutional Appears: Well, No Acute Distress - Head Exam Head Exam: ATRAUMATIC, NORMOCEPHALIC - Eye Exam Eye Exam: Normal appearance - ENT Exam ENT Exam: Mucous Membranes Moist, Normal Exam - Neck Exam Neck Exam: Normal Inspection - Respiratory Exam Respiratory Exam: Clear to Ausculation Bilateral, NORMAL BREATHING PATTERN. absent: Rales, Rhonchi, Wheezes, Respiratory Distress - Cardiovascular Exam Cardiovascular Exam: REGULAR RHYTHM, +S1, +S2 - GI/Abdominal Exam GI & Abdominal Exam: Soft, Normal Bowel Sounds. absent: Guarding, Rigid, Tenderness, Organomegaly, Rebound - Exam Exam: NORMAL INSPECTION - Extremities Exam Extremities Exam: absent: Joint Swelling, Pedal Edema - Neurological Exam Neurological Exam: Alert, Awake, Oriented x3 - Psychiatric Exam Psychiatric exam: Normal Affect, Normal Mood - Skin Skin Exam: Dry, Intact, Normal Color, Warm Assessment and Plan - Assessment and Plan (Free Text) Assessment: 48M with extensive etoh history. #Alcoholic Hepatitis - MELD 16 and DF 14. #Pancreatic mass - previously found nondiagnostic on EUS/FNA, 4cm now, previously 2.5cm. #Jayne esophagitis #Chronic pancreatitis #Seizure #Homeless #Chronic anemia #Weight loss PLAN: -Regarding pancreatic mass. It appears it has enlarged. This could be pancreatic pseudocyst vs malignancy. The EUS/FNA was non-diagnostic on 11/03. -EUS/FNB 08/13/18 for pancreatic mass, good biopsy specimens taken. -Follow up pathology for pancreatic mass -Continue supportive care and treatment of seizures. -Started on fluconazole. Continue at half-dose (50mg per day) in setting of small body habitus and liver disease. Monitor LFTs. When discharged, recommend switching to nystatin (swallow) x 2 weeks. Avoid fluconazole as outpt as he will likely go back to drinking EtOH and develop liver failure. -Advised to avoid EtOH -Soft diet -still waiting for pathology D/W Dr. Hickey <Lila Hickey V - Last Filed: 08/16/18 22:31> Objective - Vital Signs/Intake and Output Vital Signs (last 24 hours): Temp Pulse Resp BP Pulse Ox 99.3 F 65 20 120/90 100 08/16/18 17:12 08/16/18 17:12 08/16/18 17:12 08/16/18 17:12 08/16/18 17:12 - Medications Medications: Current Medications Acetaminophen (Tylenol 325mg Tab) 325 mg PO Q4H PRN PRN Reason: Headache Last Admin: 08/16/18 21:55 Dose: 325 mg Albuterol/Ipratropium (Duoneb 3 Mg/0.5 Mg (3 Ml) Ud) 3 ml IH [id number] PRN PRN Reason: Shortness of Breath Benzocaine/Menthol (Cepacol Sore Throat) 1 meron MT Q2H PRN PRN Reason: Sore Throat Last Admin: 08/15/18 09:30 Dose: 1 meron Docusate Sodium (Colace) 100 mg PO BID [facility] Last Admin: 08/16/18 17:00 Dose: 100 mg Fluconazole (Diflucan) 100 mg PO DAILY [facility]; Protocol Last Admin: 08/16/18 12:43 Dose: Not Given Folic Acid (Folic Acid) 1 mg PO DAILY [facility] Last Admin: 08/16/18 10:10 Dose: 1 mg Lactulose (Enulose) 10 gm PO DAILY [facility] Last Admin: 08/16/18 10:10 Dose: 10 gm Lorazepam (Ativan) 1 mg PO Q4H PRN; Protocol PRN Reason: Anxiety Last Admin: 08/16/18 21:57 Dose: 1 mg Pantoprazole Sodium (Protonix Ec Tab) 40 mg PO 0600 [facility] Last Admin: 08/16/18 06:41 Dose: 40 mg Thiamine HCl (Vitamin B1 Tab) 100 mg PO DAILY [facility] Last Admin: 08/16/18 10:10 Dose: 100 mg - Labs Labs: 08/16/18 07:30 08/16/18 07:30 PT 13.9 SECONDS (9.4-12.5) H 08/13/18 06:00 INR 1.20 08/13/18 06:00 Attending/Attestation - Attestation I have personally seen and examined this patient.: Yes I have fully participated in the care of the patient.: Yes I have reviewed all pertinent clinical information, including history, physical exam and plan: Yes Notes (Text): This is an addendum to GI progress report dictated by the GI Fellow.The patient was seen and examined earlier. Medical records, lab studies, imagings were reviewed. Last 24 hours events reviewed. Agreed with the above treatment plan as outlined in GI Fellow 's notes with the addition of the following Continue diflucan will change to nystatin at time of discharge 08/16/18 22:30
[2018-08-17] MEDS: Pantoprazole 40 mg EC Tab PO SCH (06:18)
[2018-08-17 07:24] LABS: BASO # 0.02 K/mm3 (0.0-2.0); BASO % 0.2 % (0.0-3.0); EOS # 0.2 (0.0-0.7); EOS % 1.8 % (1.5-5.0); GRAN # 5.86 (1.4-6.5); GRAN % 65.2 % (50.0-68.0); HEMOGLOBIN 11.7 g/dL (14.0-18.0); LYMPH # 2.2 (1.2-3.4); LYMPH % 24.5 % (22.0-35.0); MEAN CORPUSCULAR HEMOGLOBIN 38.9 pg (25.0-35.0); MEAN PLATELET VOLUME 10.8 fl (7.0-11.0); MONO # 0.8 (0.1-0.6); MONO % 8.3 % (1.0-6.0); RBC 3.01 10^6/uL (3.5-6.1); RED CELL DISTRIBUTION WIDTH 13.3 % (11.5-14.5)
[2018-08-17 07:31] LABS: ALBUMIN 3.5 g/dL (3.0-4.8); ALT/SGPT 134 U/L (7-56); AST/SGOT 130 U/L (17-59); BLOOD UREA NITROGEN 8 mg/dL (7-21); CALCIUM 9.2 mg/dL (8.4-10.5); GFR NON-AFRICAN AMERICAN > 60
--- NOTE | 2018-08-17 10:52 | CP.PCM.PN ---
Subjective - Date & Time of Evaluation Date of Evaluation: 08/17/18 Time of Evaluation: 10:00 - Subjective Subjective: Comfortable, complaining of some burning sensation on urination, no fevers, no abdominal pain currently. Objective - Vital Signs/Intake and Output Vital Signs (last 24 hours): Temp Pulse Resp BP Pulse Ox 99.5 F 20 L 98 H 105/70 96 08/17/18 06:00 08/17/18 06:00 08/17/18 06:00 08/17/18 06:00 08/17/18 06:00 Intake and Output: 08/17/18 08/17/18 06:59 18:59 Intake Total 0 Output Total 200 Balance -200 - Medications Medications: Current Medications Acetaminophen (Tylenol 325mg Tab) 325 mg PO Q4H PRN PRN Reason: Headache Last Admin: 08/16/18 21:55 Dose: 325 mg Albuterol/Ipratropium (Duoneb 3 Mg/0.5 Mg (3 Ml) Ud) 3 ml IH [id number] PRN PRN Reason: Shortness of Breath Benzocaine/Menthol (Cepacol Sore Throat) 1 meron MT Q2H PRN PRN Reason: Sore Throat Last Admin: 08/15/18 09:30 Dose: 1 meron Docusate Sodium (Colace) 100 mg PO BID [facility] Last Admin: 08/16/18 17:00 Dose: 100 mg Fluconazole (Diflucan) 100 mg PO DAILY [facility]; Protocol Last Admin: 08/16/18 12:43 Dose: Not Given Folic Acid (Folic Acid) 1 mg PO DAILY [facility] Last Admin: 08/16/18 10:10 Dose: 1 mg Lactulose (Enulose) 10 gm PO DAILY [facility] Last Admin: 08/16/18 10:10 Dose: 10 gm Lorazepam (Ativan) 1 mg PO Q4H PRN; Protocol PRN Reason: Anxiety Last Admin: 08/16/18 21:57 Dose: 1 mg Pantoprazole Sodium (Protonix Ec Tab) 40 mg PO 0600 [facility] Last Admin: 08/17/18 06:18 Dose: 40 mg Thiamine HCl (Vitamin B1 Tab) 100 mg PO DAILY [facility] Last Admin: 08/16/18 10:10 Dose: 100 mg - Labs Labs: 08/17/18 06:30 08/17/18 06:30 PT 13.9 SECONDS (9.4-12.5) H 08/13/18 06:00 INR 1.20 08/13/18 06:00 - Constitutional Appears: No Acute Distress, Chronically Ill - Head Exam Head Exam: NORMAL INSPECTION - Respiratory Exam Respiratory Exam: Decreased Breath Sounds - Cardiovascular Exam Cardiovascular Exam: +S1, +S2 - GI/Abdominal Exam GI & Abdominal Exam: Soft. absent: Tenderness Assessment and Plan - Assessment and Plan (Free Text) Plan: Assessment SIRS due to alcoholic hepatitis pancreatic mass S/P EGD and biopsy probable distal esophageal candidiasis history of severe sepsis S/P acute renal failure due to E. coli bacteremia, probably due to UTI in this patient with severe acute alcoholic hepatitis, clinically improving acute renal failure chronic ethanol abuse pancreatic tail lesion Plan continue Diflucan day 3 but should be cautious and probably advisable to stop once discharged due to his alcohol drinking habits but will treat while in the hospital will check urinalysis follow up results of the pancreatic biopsy discussed with Dr. Monsivais overall prognosis is poor
--- NOTE | 2018-08-17 11:38 | CP.PCM.PN ---
<Beck Fowler - Last Filed: 08/17/18 11:34> Subjective - Date & Time of Evaluation Date of Evaluation: 08/17/18 Time of Evaluation: 11:34 - Subjective Subjective: Beck Fowler PGY1 Progress Note for Dr. Monsivais Pt was examined at bedside this morning. He reported L sided headache, which he claims is a stabbing pain. He denies any bloody bowel movements. Pt denies any chest pain, shortness of breath, abdominal pain, nausea, vomiting, diarrhea. Objective - Vital Signs/Intake and Output Vital Signs (last 24 hours): Temp Pulse Resp BP Pulse Ox 99.5 F 20 L 98 H 105/70 96 08/17/18 06:00 08/17/18 06:00 08/17/18 06:00 08/17/18 06:00 08/17/18 06:00 Intake and Output: 08/17/18 08/17/18 06:59 18:59 Intake Total 0 Output Total 200 Balance -200 - Medications Medications: Current Medications Acetaminophen (Tylenol 325mg Tab) 325 mg PO Q4H PRN PRN Reason: Headache Last Admin: 08/16/18 21:55 Dose: 325 mg Albuterol/Ipratropium (Duoneb 3 Mg/0.5 Mg (3 Ml) Ud) 3 ml IH [id number] PRN PRN Reason: Shortness of Breath Benzocaine/Menthol (Cepacol Sore Throat) 1 meron MT Q2H PRN PRN Reason: Sore Throat Last Admin: 08/15/18 09:30 Dose: 1 meron Docusate Sodium (Colace) 100 mg PO BID [facility] Last Admin: 08/17/18 09:49 Dose: 100 mg Fluconazole (Diflucan) 100 mg PO DAILY [facility]; Protocol Last Admin: 08/17/18 09:49 Dose: 100 mg Folic Acid (Folic Acid) 1 mg PO DAILY [facility] Last Admin: 08/17/18 09:49 Dose: 1 mg Lactulose (Enulose) 10 gm PO DAILY [facility] Last Admin: 08/17/18 09:49 Dose: 10 gm Lorazepam (Ativan) 1 mg PO Q4H PRN; Protocol PRN Reason: Anxiety Last Admin: 08/16/18 21:57 Dose: 1 mg Pantoprazole Sodium (Protonix Ec Tab) 40 mg PO 0600 [facility] Last Admin: 08/17/18 06:18 Dose: 40 mg Thiamine HCl (Vitamin B1 Tab) 100 mg PO DAILY [facility] Last Admin: 08/17/18 09:49 Dose: 100 mg - Labs Labs: 08/17/18 06:30 08/17/18 06:30 PT 13.9 SECONDS (9.4-12.5) H 08/13/18 06:00 INR 1.20 08/13/18 06:00 - Constitutional Appears: Well, No Acute Distress - Head Exam Head Exam: ATRAUMATIC, NORMOCEPHALIC - Eye Exam Eye Exam: EOMI, Normal appearance, PERRL Pupil Exam: NORMAL ACCOMODATION - ENT Exam ENT Exam: Mucous Membranes Moist - Neck Exam Neck Exam: Full ROM, Normal Inspection. absent: Tenderness - Respiratory Exam Respiratory Exam: Clear to Ausculation Bilateral, NORMAL BREATHING PATTERN. absent: Rhonchi, Wheezes, Stridor - Cardiovascular Exam Cardiovascular Exam: REGULAR RHYTHM, +S1, +S2. absent: Gallop, Rubs, Murmur - GI/Abdominal Exam GI & Abdominal Exam: Soft, Normal Bowel Sounds. absent: Distended, Firm, Tenderness - Extremities Exam Extremities Exam: Normal Inspection. absent: Pedal Edema - Neurological Exam Neurological Exam: Alert, Awake, Oriented x3 - Psychiatric Exam Psychiatric exam: Anxious, Normal Affect Assessment and Plan - Assessment and Plan (Free Text) Assessment: 48 yo M with PMH extensive EtOH abuse, pancreatic tail lesion who was brought in by ambulance on 08/07/18 for evaluation of seizure activity prior to arrival. Pt was recently admitted on 07/23/18 for abdominal pain. Plan: Pancreatic Mass: Pseudocyst Vs Malignancy - GI: Repeat EUS/FNB done on 08/13, f/u results - EUS report: mass of pancreatic tail, esophageal plaques consistent w/candidiasis found - GI consulted, Dr. Hickey - recs appreciated Oral Candidiasis - EUS report: esophageal plaques consistent w/ candidiasis found - continue fluconazole 1000mg PO daily (day 3) as per ID - d/c home w/ nystatin as per GI - GI consulted, Dr. Hickey, recs appreciated - ID consulted, Dr. Mcnulty recs appreciated Reported Blood per Rectum - pt denied any blood in stool this morning - H/H 11.7/33.4, stable - continue to monitor - GI consulted, Dr. Chowdhury Alcohol withdrawal, s/p seizure activity - ativan 1 mg IVP Q4H PRN - contiue lactulose - fall, seizure and aspiration precautions - Neuro consulted, Dr. Lynn: likely due to alcohol intoxication, no indication for anti-seizure meds. recs appreciated. Transaminitis - AST: 130 today from 134 - ALT: 134 today from 134 - ALP: 194 today from 175 - Tbili: 3.5 today from 3.7 - Zofran PRN nausea Chronic Pancreatitis - EUS report: dilatation of CBD 11mm, pancreatic parenchymal abnormalities suggesting chronic pancreatitis Hypokalemia - K 3.7 today, resolved - continue to monitor Macrocytic anemia - Hb 11.7 today - pt denied blood per rectum today - pt asymptomatic, hemodynamically stable - continue to monitor Ppx - Protonix - SCDs - advance to regular diet Dispo - PT: home Pt seen, examined, assessment, and plan discussed with Dr Monsivais. <Codie Monsivais - Last Filed: 08/17/18 12:22> Objective - Vital Signs/Intake and Output Vital Signs (last 24 hours): Temp Pulse Resp BP Pulse Ox 99.5 F 20 L 98 H 105/70 96 08/17/18 06:00 08/17/18 06:00 08/17/18 06:00 08/17/18 06:00 08/17/18 06:00 Intake and Output: 08/17/18 08/17/18 06:59 18:59 Intake Total 0 Output Total 200 Balance -200 - Medications Medications: Current Medications Acetaminophen (Tylenol 325mg Tab) 325 mg PO Q4H PRN PRN Reason: Headache Last Admin: 08/16/18 21:55 Dose: 325 mg Albuterol/Ipratropium (Duoneb 3 Mg/0.5 Mg (3 Ml) Ud) 3 ml IH [id number] PRN PRN Reason: Shortness of Breath Benzocaine/Menthol (Cepacol Sore Throat) 1 meron MT Q2H PRN PRN Reason: Sore Throat Last Admin: 08/15/18 09:30 Dose: 1 meron Docusate Sodium (Colace) 100 mg PO BID [facility] Last Admin: 08/17/18 09:49 Dose: 100 mg Fluconazole (Diflucan) 100 mg PO DAILY [facility]; Protocol Last Admin: 08/17/18 09:49 Dose: 100 mg Folic Acid (Folic Acid) 1 mg PO DAILY [facility] Last Admin: 08/17/18 09:49 Dose: 1 mg Lactulose (Enulose) 10 gm PO DAILY [facility] Last Admin: 08/17/18 09:49 Dose: 10 gm Lorazepam (Ativan) 1 mg PO Q4H PRN; Protocol PRN Reason: Anxiety Last Admin: 08/16/18 21:57 Dose: 1 mg Pantoprazole Sodium (Protonix Ec Tab) 40 mg PO 0600 [facility] Last Admin: 08/17/18 06:18 Dose: 40 mg Thiamine HCl (Vitamin B1 Tab) 100 mg PO DAILY [facility] Last Admin: 08/17/18 09:49 Dose: 100 mg - Labs Labs: 08/17/18 06:30 08/17/18 06:30 PT 13.9 SECONDS (9.4-12.5) H 08/13/18 06:00 INR 1.20 08/13/18 06:00 Attending/Attestation - Attestation I have personally seen and examined this patient.: Yes I have fully participated in the care of the patient.: Yes I have reviewed all pertinent clinical information, including history, physical exam and plan: Yes Notes (Text): 08/17/18 12:20 48 year old male with past medical history of alcohol abuse who presented with seizure. He was recently discharged last week but continued to drink alcohol. Seizure was likely alcohol withdrawal seizure. Neurology evaluation was appreciated. Patient is on tapering ativan johnnie/prn for withdrawal symptoms. He was counselled on alcohol cessation. Unfortunately he fails to comply. GI is following and patient is s/p EUS/FNB on Saturday, still pending biopsy. Given he is homeless with poor outpatient follow up compliance will await biopsy which will likely come back by tomorrow. He denies any blood in stool this morning. H/H has been stable. GI is following. Patient was started on diflucan for candidiasis. Can switch to nystatin on discharge. Continue with monitor LFTs closely. Codie Monsivais MD Hospitalist.
[2018-08-17 14:53] LABS: PH,URINE 6.5 (4.7-8.0); URINE BILIRUBIN SMALL (NEGATIVE); URINE BLOOD NEGATIVE (NEGATIVE); URINE GLUCOSE (UA) NEGATIVE (NEGATIVE); URINE LEUKOCYTE ESTERASE NEGATIVE Leu/uL (NEGATIVE); URINE PROTEIN NEGATIVE mg/dL (<30 mg/dL)
[2018-08-17 14:57] LABS: URINE APPEARANCE CLEAR (CLEAR); URINE COLOR YELLOW (YELLOW)
[2018-08-17 16:40] VITALS: O2SAT 100
[2018-08-18] MEDS: Pantoprazole 40 mg EC Tab PO SCH (04:59)
[2018-08-18 07:45] LABS: BASO # 0.02 K/mm3 (0.0-2.0); BASO % 0.2 % (0.0-3.0); EOS # 0.2 (0.0-0.7); EOS % 1.4 % (1.5-5.0); GRAN # 6.37 (1.4-6.5); GRAN % 59.4 % (50.0-68.0); HEMOGLOBIN 11.3 g/dL (14.0-18.0); LYMPH % 28.3 % (22.0-35.0); MEAN CELL VOLUME 110.2 fl (80.0-105.0); MEAN CORPUSCULAR HEMOGLOBIN 37.3 pg (25.0-35.0); MEAN CORPUSCULAR HGB CONC 33.8 g/dl (31.0-37.0); MEAN PLATELET VOLUME 10.8 fl (7.0-11.0); MONO # 1.2 (0.1-0.6); MONO % 10.7 % (1.0-6.0); RBC 3.03 10^6/uL (3.5-6.1); RED CELL DISTRIBUTION WIDTH 13.2 % (11.5-14.5); WHITE BLOOD COUNT 10.7 10^3/ul (4.5-11.0)
[2018-08-18 07:54] LABS: ALB/GLOB RATIO 0.9 (1.1-1.8); ALBUMIN 3.9 g/dL (3.0-4.8); ALT/SGPT 119 U/L (7-56); AST/SGOT 133 U/L (17-59); BLOOD UREA NITROGEN 8 mg/dL (7-21); CALCIUM 9.5 mg/dL (8.4-10.5); GFR NON-AFRICAN AMERICAN > 60
--- NOTE | 2018-08-18 08:47 | CP.PCM.PN ---
<Dickson Simpson - Last Filed: 08/18/18 11:56> Subjective - Date & Time of Evaluation Date of Evaluation: 08/18/18 Time of Evaluation: 08:46 - Subjective Subjective: Reymundo Simpson PG2 IM Resident - GI Progress Note Dr. Hickey Patient seen and examined this AM. Patient denies abdominal pain, nausea, vomiting, fever, chills, diarrhea. Patient reports bloody bowel movement without confirmation from nursing staff. Patient hemoglobin continues to be stable. Does report dysuria during interview. Objective - Vital Signs/Intake and Output Vital Signs (last 24 hours): Temp Pulse Resp BP Pulse Ox 97.8 F 98 H 20 130/87 100 08/17/18 17:14 08/17/18 16:39 08/17/18 16:39 08/17/18 16:39 08/17/18 16:39 - Medications Medications: Current Medications Acetaminophen (Tylenol 325mg Tab) 325 mg PO Q4H PRN PRN Reason: Headache Last Admin: 08/18/18 02:51 Dose: 325 mg Albuterol/Ipratropium (Duoneb 3 Mg/0.5 Mg (3 Ml) Ud) 3 ml IH [id number] PRN PRN Reason: Shortness of Breath Benzocaine/Menthol (Cepacol Sore Throat) 1 meron MT Q2H PRN PRN Reason: Sore Throat Last Admin: 08/15/18 09:30 Dose: 1 meron Docusate Sodium (Colace) 100 mg PO BID [facility] Last Admin: 08/17/18 17:09 Dose: 100 mg Fluconazole (Diflucan) 100 mg PO DAILY [facility]; Protocol Last Admin: 08/17/18 09:49 Dose: 100 mg Folic Acid (Folic Acid) 1 mg PO DAILY [facility] Last Admin: 08/17/18 09:49 Dose: 1 mg Lactulose (Enulose) 10 gm PO DAILY [facility] Last Admin: 08/17/18 09:49 Dose: 10 gm Lorazepam (Ativan) 1 mg PO Q4H PRN; Protocol PRN Reason: Anxiety Last Admin: 08/17/18 18:26 Dose: 1 mg Pantoprazole Sodium (Protonix Ec Tab) 40 mg PO 0600 [facility] Last Admin: 08/18/18 04:59 Dose: 40 mg Thiamine HCl (Vitamin B1 Tab) 100 mg PO DAILY [facility] Last Admin: 08/17/18 09:49 Dose: 100 mg - Labs Labs: 08/18/18 07:00 08/18/18 07:00 PT 13.9 SECONDS (9.4-12.5) H 08/13/18 06:00 INR 1.20 08/13/18 06:00 - Constitutional Appears: No Acute Distress - Head Exam Head Exam: ATRAUMATIC, NORMOCEPHALIC - Eye Exam Eye Exam: EOMI, PERRL, Scleral icterus - ENT Exam ENT Exam: Mucous Membranes Moist - Respiratory Exam Respiratory Exam: Clear to Ausculation Bilateral, NORMAL BREATHING PATTERN - Cardiovascular Exam Cardiovascular Exam: REGULAR RHYTHM, +S1, +S2 - GI/Abdominal Exam GI & Abdominal Exam: Soft, Normal Bowel Sounds. absent: Firm, Guarding, Rigid, Tenderness - Extremities Exam Extremities Exam: absent: Calf Tenderness, Pedal Edema - Neurological Exam Neurological Exam: Alert, Awake, Normal Gait, Oriented x3 - Psychiatric Exam Psychiatric exam: Normal Affect - Skin Skin Exam: Dry, Rash, Warm Assessment and Plan - Assessment and Plan (Free Text) Assessment: 48 yo M with PMH extensive EtOH abuse, pancreatic tail lesion s/p EUS, FNA, EGD. Plan: Alcoholic Hepatitis - MELD 16 and DF 14. Pancreatic mass - previously found nondiagnostic on EUS/FNB, 4cm now, previously 2.5cm. Jayne esophagitis Chronic pancreatitis Seizure Homeless Chronic anemia Weight loss - Pancreatic mass diff dx pancreatic pseudocyst vs. malignancy - Pathology pending for EUS/FNB of pancreatic mass - Continue fluconazole 1/2 dose of 50mg Daily, LFTS today trending downward from admission AST 133 ALT 119 - Upon discharge will switch to Nystatin for 2 weeks secondary to fluconazole and extensive drinking history - Alcohol counseling and cessation provided - Further recommendations per Dr. Hickey <Lila Hickey V - Last Filed: 08/18/18 23:20> Objective - Vital Signs/Intake and Output Vital Signs (last 24 hours): Temp Pulse Resp BP Pulse Ox 99 F 83 18 122/79 100 08/18/18 16:14 08/18/18 16:14 08/18/18 16:14 08/18/18 16:14 08/18/18 08:53 - Labs Labs: 08/18/18 07:00 08/18/18 07:00 PT 13.9 SECONDS (9.4-12.5) H 08/13/18 06:00 INR 1.20 08/13/18 06:00 Attending/Attestation - Attestation I have personally seen and examined this patient.: Yes I have fully participated in the care of the patient.: Yes I have reviewed all pertinent clinical information, including history, physical exam and plan: Yes Notes (Text): This is an addendum to GI followup report dictated by the Gas Operation Manager. The patient was seen and evaluated earlier. Medical records, lab studies, imagings were reviewed. Last 24 hours events reviewed. Agreed with the above treatment plan as outlined in Gas Operation Manager 's notes with the addition of the following Path report reviewed This need to be followed up with repeat EUS FNB in 2 to 3 months Followup imaging studies Consider repeat CT with contrast pancreatic protocol Will discuss with medical team 08/18/18 23:17
[2018-08-18] MEDS ORDERED: Potassium Chloride 20 mEq ER Tab PO STA (09:05)
--- NOTE | 2018-08-18 13:52 | CP.PCM.PN ---
Subjective - Date & Time of Evaluation Date of Evaluation: 08/18/18 Time of Evaluation: 11:00 - Subjective Subjective: No fevers, not in distress, has occasional headache, swallowing better, no abdominal pain, no dysuria is improved. Objective - Vital Signs/Intake and Output Vital Signs (last 24 hours): Temp Pulse Resp BP Pulse Ox 99.2 F 85 20 120/82 100 08/18/18 08:53 08/18/18 08:53 08/18/18 08:53 08/18/18 08:53 08/18/18 08:53 - Medications Medications: Current Medications Acetaminophen (Tylenol 325mg Tab) 325 mg PO Q4H PRN PRN Reason: Headache Last Admin: 08/18/18 02:51 Dose: 325 mg Albuterol/Ipratropium (Duoneb 3 Mg/0.5 Mg (3 Ml) Ud) 3 ml IH [id number] PRN PRN Reason: Shortness of Breath Benzocaine/Menthol (Cepacol Sore Throat) 1 meron MT Q2H PRN PRN Reason: Sore Throat Last Admin: 08/15/18 09:30 Dose: 1 meron Docusate Sodium (Colace) 100 mg PO BID [facility] Last Admin: 08/18/18 09:11 Dose: 100 mg Fluconazole (Diflucan) 100 mg PO DAILY [facility]; Protocol Last Admin: 08/18/18 09:12 Dose: 100 mg Folic Acid (Folic Acid) 1 mg PO DAILY [facility] Last Admin: 08/18/18 09:12 Dose: 1 mg Lactulose (Enulose) 10 gm PO DAILY [facility] Last Admin: 08/18/18 09:12 Dose: 10 gm Lorazepam (Ativan) 1 mg PO Q4H PRN; Protocol PRN Reason: Anxiety Last Admin: 08/17/18 18:26 Dose: 1 mg Pantoprazole Sodium (Protonix Ec Tab) 40 mg PO 0600 [facility] Last Admin: 08/18/18 04:59 Dose: 40 mg Thiamine HCl (Vitamin B1 Tab) 100 mg PO DAILY [facility] Last Admin: 08/18/18 09:11 Dose: 100 mg - Labs Labs: 08/18/18 07:00 08/18/18 07:00 PT 13.9 SECONDS (9.4-12.5) H 08/13/18 06:00 INR 1.20 08/13/18 06:00 - Constitutional Appears: No Acute Distress, Chronically Ill - Head Exam Head Exam: NORMAL INSPECTION - Respiratory Exam Respiratory Exam: Decreased Breath Sounds - Cardiovascular Exam Cardiovascular Exam: +S1, +S2 - GI/Abdominal Exam GI & Abdominal Exam: Soft. absent: Tenderness Assessment and Plan - Assessment and Plan (Free Text) Plan: Assessment S/P SIRS due to alcoholic hepatitis pancreatic mass S/P EGD and biopsy probable distal esophageal candidiasis history of severe sepsis S/P acute renal failure due to E. coli bacteremia, probably due to UTI in this patient with severe acute alcoholic hepatitis, c linically improving acute renal failure chronic ethanol abuse pancreatic tail lesion Plan continue Diflucan day 4 but should be cautious and probably advisable to stop once discharged due to his alcohol drinking habits but will treat while in the hospital urinalysis does not suggest UTI follow up results of the pancreatic biopsy discussed with Dr. Monsivais will get CT head overall prognosis is poor
--- NOTE | 2018-08-18 15:31 | CP.PCM.DIS ---
Provider - Provider Date of Admission: 08/07/18 20:00 Attending physician: Codie Monsivais MD Consults: GI Neuro ID Time Spent in preparation of Discharge (in minutes): 70 Hospital Course - Lab Results Lab Results: Micro Results 08/07/18 18:00 Blood-Venous Blood Culture - Final NO GROWTH AFTER 5 DAYS 08/07/18 18:00 Blood-Venous Gram Stain - Final TEST NOT PERFORMED 08/07/18 17:40 Blood-Venous Blood Culture - Final NO GROWTH AFTER 5 DAYS 08/07/18 17:40 Blood-Venous Gram Stain - Final TEST NOT PERFORMED 08/07/18 20:15 Urine Urine Culture - Final No Growth (<1,000 CFU/ML) Most Recent Lab Values WBC 10.7 10^3/ul (4.5-11.0) 08/18/18 07:00 RBC 3.03 10^6/uL (3.5-6.1) L 08/18/18 07:00 Hgb 11.3 g/dL (14.0-18.0) L 08/18/18 07:00 Hct 33.4 % (42.0-52.0) L 08/18/18 07:00 MCV 110.2 fl (80.0-105.0) H 08/18/18 07:00 MCH 37.3 pg (25.0-35.0) H 08/18/18 07:00 MCHC 33.8 g/dl (31.0-37.0) 08/18/18 07:00 RDW 13.2 % (11.5-14.5) 08/18/18 07:00 Plt Count 208 10^3/uL (120.0-450.0) 08/18/18 07:00 MPV 10.8 fl (7.0-11.0) 08/18/18 07:00 Gran % 59.4 % (50.0-68.0) 08/18/18 07:00 Lymph % (Auto) 28.3 % (22.0-35.0) 08/18/18 07:00 [place] % (Auto) 10.7 % (1.0-6.0) H 08/18/18 07:00 Eos % (Auto) 1.4 % (1.5-5.0) L 08/18/18 07:00 Baso % (Auto) 0.2 % (0.0-3.0) 08/18/18 07:00 Gran # 6.37 (1.4-6.5) 08/18/18 07:00 Lymph # (Auto) 3.0 (1.2-3.4) 08/18/18 07:00 [place] # (Auto) 1.2 (0.1-0.6) H 08/18/18 07:00 Eos # (Auto) 0.2 (0.0-0.7) 08/18/18 07:00 Baso # (Auto) 0.02 K/mm3 (0.0-2.0) 08/18/18 07:00 Neutrophils % (Manual) 92 % (50.0-70.0) H 08/09/18 14:00 Lymphocytes % (Manual) 7 % (22.0-35.0) L 08/09/18 14:00 Monocytes % (Manual) 1 % (1.0-6.0) 08/09/18 14:00 Platelet Evaluation Normal (NORMAL) 08/09/18 14:00 Macrocytosis (manual) Slight 08/09/18 14:00 PT 13.9 SECONDS (9.4-12.5) H 08/13/18 06:00 INR 1.20 08/13/18 06:00 pO2 84 mm/Hg (30-55) H 08/08/18 06:30 VBG pH 7.46 (7.32-7.43) H 08/08/18 06:30 VBG pCO2 32.0 (40-60) L 08/08/18 06:30 VBG HCO3 22.8 mmol/l (21-28) 08/08/18 06:30 VBG Total CO2 23.8 mmol.L (22-28) 08/08/18 06:30 VBG O2 Sat (Calc) 98.6 % (40-65) H 08/08/18 06:30 VBG Base Excess -0.3 mmol/L (0.0-2.0) L 08/08/18 06:30 VBG Potassium 3.2 mmol/L (3.6-5.2) L 08/08/18 06:30 Sodium 137.0 mmol/L (132-148) 08/08/18 06:30 Chloride 109.0 mmol/L (98-107) H 08/08/18 06:30 Glucose 68 mg/dl (75-110) L 08/08/18 06:30 Lactate 2.0 mmol/L (0.7-2.1) 08/08/18 06:30 FiO2 21.0 % 08/08/18 06:30 Sodium 134 mmol/L (132-148) 08/18/18 07:00 Potassium 3.5 mmol/L (3.6-5.0) L 08/18/18 07:00 Chloride 101 mmol/L (98-107) 08/18/18 07:00 Carbon Dioxide 23 mmol/L (21-33) 08/18/18 07:00 Anion Gap 14 (10-20) 08/18/18 07:00 BUN 8 mg/dL (7-21) 08/18/18 07:00 Creatinine 0.5 mg/dl (0.8-1.5) L 08/18/18 07:00 Est GFR ( Amer) > 60 08/18/18 07:00 Est GFR (Non-Af Amer) > 60 08/18/18 07:00 POC Glucose (mg/dL) 93 mg/dL (65-110) 08/18/18 11:06 Random Glucose 93 mg/dL (70-110) 08/18/18 07:00 Calcium 9.5 mg/dL (8.4-10.5) 08/18/18 07:00 Phosphorus 2.7 mg/dL (2.5-4.5) 08/08/18 06:30 Magnesium 1.5 mg/dL (1.7-2.2) L 08/08/18 06:30 Total Bilirubin 3.9 mg/dL (0.2-1.3) H 08/18/18 07:00 AST 133 U/L (17-59) H 08/18/18 07:00 ALT 119 U/L (7-56) H 08/18/18 07:00 Alkaline Phosphatase 196 U/L (38-126) H 08/18/18 07:00 Ammonia 37 umol/L (9-33) H 08/08/18 08:20 Total Protein 8.2 g/dL (5.8-8.3) 08/18/18 07:00 Albumin 3.9 g/dL (3.0-4.8) 08/18/18 07:00 Globulin 4.3 gm/dL 08/18/18 07:00 Albumin/Globulin Ratio 0.9 (1.1-1.8) L 08/18/18 07:00 Procalcitonin 0.32 NG/ML (0.19-0.49) 08/08/18 06:30 Venous Blood Potassium 3.2 mmol/L (3.6-5.2) L 08/08/18 06:30 Urine Color Yellow (YELLOW) 08/17/18 14:30 Urine Appearance Clear (CLEAR) 08/17/18 14:30 Urine pH 6.5 (4.7-8.0) 08/17/18 14:30 Ur Specific [place] 1.020 (1.005-1.035) 08/17/18 14:30 Urine Protein Negative mg/dL (<30 mg/dL) 08/17/18 14:30 Urine Glucose (UA) Negative mg/dL (NEGATIVE) 08/17/18 14:30 Urine Ketones Trace mg/dL (NEGATIVE) H 08/17/18 14:30 Urine Blood Negative (NEGATIVE) 08/17/18 14:30 Urine Nitrate Negative (NEGATIVE) 08/17/18 14:30 Urine Bilirubin Small (NEGATIVE) H 08/17/18 14:30 Urine Urobilinogen 2.0 E.U./dL (<1 E.U./dL) H 08/17/18 14:30 Ur Leukocyte Esterase Negative Ty/uL (NEGATIVE) 08/17/18 14:30 Urine Opiates Screen Negative (NEGATIVE) 08/08/18 07:00 Urine Methadone Screen Negative (NEGATIVE) 08/08/18 07:00 Ur Barbiturates Screen Negative (NEGATIVE) 08/08/18 07:00 Ur Phencyclidine Scrn Negative (NEGATIVE) 08/08/18 07:00 Ur Amphetamines Screen Negative (NEGATIVE) 08/08/18 07:00 U Benzodiazepines Scrn Negative (NEGATIVE) 08/08/18 07:00 U Oth Cocaine Metabols Negative (NEGATIVE) 08/08/18 07:00 U Cannabinoids Screen Negative (NEGATIVE) 08/08/18 07:00 Alcohol, Quantitative 76 mg/dL (0-10) H 08/07/18 18:16 - Hospital Course Hospital Course: Upon Admission This is a 48 year old male with PMH extensive EtOH abuse, pancreatic tail lesion who was BIBA for evaluation of witnessed seizure activity prior to arrival. Pt is a poor historian. Pt is unable to describe the seizure activity, but states the he feels shaky. Per ED note, pt noted to have witnessed "mild tonic, clonic seizure lasting 1 minute prior to arrival." Pt reports that his last drink was at 6 pm today, unable to quantify amount. He also admits to subjective fevers, unknown duration, as well as intermittent diarrhea, with blood in the stool noted at times. Hospital Course Pt was admitted to telemetry from the ED for management of seizure activity likly due to etoh withdrawal, transaminitis due to alcoholic hepatitis, hypokalemia due to malnutrition 2/2 etoh use, and met SIRS criteria for sepsis. On admission his CXR showed lower lobe atelectasis/infiltrates. F/u CXR was negative for any active disease. Neurology was consulted: alcohol withdraw was managed with Ativan, lactulose, and monitored for possible seizure activity. Pt had no further seizures following admission. Pt also began complaining of headaches. Head CT scan showed no abnormalities. Initial seizure was most likely due to etoh withdraw. Patent was counciled on alcohol cessation. Sepsis: ID was consulted. leukocytosis resolved over course of admission. Pt is afebrile, BCx negative x5. Transamintis: labs trended throughout stay. Still has mild transamintitis, but labs have downtrended and pt is stable. Pancreatic mass: GI was consulted. Patient had an EUS and a FNA of pancreatic mass. EUS showed abnormalities suggestive of chronic pancreatitis. Esophageal candidiasis was found during EUS. During admission it was managed with fluconazole. Patient will be switched with Nystatin upon discharge. Chronic pancreatitis was managed with prednisone. Steroids were stopped due to finding of esophogeal candidiasis. Biopsy of pancreatic mass was taken and results came back negative for malignancy. Discharge plan Pt is stable for DC to home as per Dr. Hare. Pt is to return to hospital if sxs recur or worsen. Pt was instructed to follow up with the [facility] and was advised to stop drinking. Patient is to resume all home medications as mentioned in d/c instructions. Discharge Exam - Head Exam Head Exam: ATRAUMATIC, NORMAL INSPECTION, NORMOCEPHALIC - Eye Exam Eye Exam: EOMI, Normal appearance Pupil Exam: NORMAL ACCOMODATION - Respiratory Exam Respiratory Exam: Clear to PA & Lateral, NORMAL BREATHING PATTERN. absent: Rales, Rhonchi, Wheezes - Cardiovascular Exam Cardiovascular Exam: REGULAR RHYTHM, +S1, +S2. absent: Gallop, Rubs, Systolic Murmur - GI/Abdominal Exam GI & Abdominal Exam: Normal Bowel Sounds, Soft. absent: Distended, Tenderness - Extremities Exam Extremities exam: normal inspection - Neurological Exam Neurological exam: Alert, Oriented x3 - Psychiatric Exam Psychiatric exam: Anxious - Skin Skin Exam: Normal Color Discharge Plan - Discharge Medications Prescriptions: Folic Acid 1 mg PO DAILY 30 Days tab Nystatin [Nystatin Oral Susp] 100,000 unit PO Q6H #60 ml Pantoprazole [Protonix EC Tab] 40 mg PO 0600 30 Days ect Thiamine [Vitamin B1 Tab] 100 mg PO DAILY #30 tab - Follow Up Plan Condition: GUARDED Disposition: HOME/ ROUTINE Additional Instructions: Please follow up with [facility] on Saturday, , or Saturday. Please call [phone] to register. Please refrain from drinking alcohol as it may worsen your condition. Please take your prescribed medications as directed. Please return to the ED if your symptoms worsen.
[2018-08-18 16:15] VITALS: BP 122/79; PULSE 83; RESP 18; TEMP 99
== END 2018-08-18 17:09 | disposition home or self-care (01) | DRG 532 ==
LOC: ED 17:31 → ERH 20:00 → 2RSO 22:48 → 3RNO 08-09 12:20
PROVIDERS: ADMIT Internal Medicine; ATTEND Internal Medicine
DX: G40.89 Other seizures (principal); B37.81 Candidal esophagitis; N17.9 Acute kidney failure, unspecified; R65.10 Systemic inflammatory response syndrome (SIRS) of non-infectious origin without acute organ dysfunction; E46 Unspecified protein-calorie malnutrition; E87.6 Hypokalemia; F10.239 Alcohol dependence with withdrawal, unspecified; J98.11 Atelectasis; K74.60 Unspecified cirrhosis of liver; R32 Unspecified urinary incontinence; B96.20 Unspecified Escherichia coli [E. coli] as the cause of diseases classified elsewhere; D64.9 Anemia, unspecified; E11.9 Type 2 diabetes mellitus without complications; F10.229 Alcohol dependence with intoxication, unspecified; F17.210 Nicotine dependence, cigarettes, uncomplicated; F31.9 Bipolar disorder, unspecified; G93.41 Metabolic encephalopathy; I10 Essential (primary) hypertension; J45.909 Unspecified asthma, uncomplicated; K21.9 Gastro-esophageal reflux disease without esophagitis; K29.70 Gastritis, unspecified, without bleeding; K70.10 Alcoholic hepatitis without ascites; K83.8 Other specified diseases of biliary tract; K86.1 Other chronic pancreatitis; Z59.0 Homelessness; Z87.440 Personal history of urinary (tract) infections; Z91.19 Patient's noncompliance with other medical treatment and regimen

== ENCOUNTER 2018-08-28 06:08 | Inpatient (IN) | payer MEDICAID ==
[2018-08-28 06:19] VITALS: BMI 24.7
[2018-08-28] MEDS ORDERED: Vancomycin 500 mg Inj IVPB STA (07:25)
[2018-08-28] MEDS ORDERED: Piperacillin/Tazobact 3.375 gm 100 ML IVPB STA (07:26)
[2018-08-28] MEDS ORDERED: Vancomycin 1gm in NS 250ml 1 GM/250 ML BAG IVPB ONE (07:30)
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
[2018-08-28 07:44] LABS: VENOUS BLOOD GAS BASE EXCESS 0.7 mmol/L (0.0-2.0); VENOUS BLOOD GAS PO2 49 mm/Hg (30-55); VENOUS BLOOD PH 7.41 (7.32-7.43)
[2018-08-28 07:47] LABS: BASO # 0.01 K/mm3 (0.0-2.0); BASO % 0.1 % (0.0-3.0); EOS # 0.1 (0.0-0.7); EOS % 1.4 % (1.5-5.0); GRAN # 3.47 (1.4-6.5); GRAN % 49.3 % (50.0-68.0); HEMOGLOBIN 11.3 g/dL (14.0-18.0); LYMPH # 2.7 (1.2-3.4); LYMPH % 37.8 % (22.0-35.0); MEAN CELL VOLUME 105.7 fl (80.0-105.0); MEAN PLATELET VOLUME 9.6 fl (7.0-11.0); MONO # 0.8 (0.1-0.6); MONO % 11.4 % (1.0-6.0); RBC 3.14 10^6/uL (3.5-6.1)
[2018-08-28] MEDS ORDERED: Sodium Chloride 0.9% 1,000 ML IV STA (07:53)
[2018-08-28] MEDS ORDERED: Multivitamin (MVI) 10 ML, Thiamine 100 MG, Folic Acid 1 MG in Sodium Chloride 0.9% 1,00... IV ONE (07:53)
[2018-08-28 08:13] LABS: ALB/GLOB RATIO 0.8 (1.1-1.8); ALBUMIN 3.5 g/dL (3.0-4.8); ALT/SGPT 67 U/L (7-56); AST/SGOT 186 U/L (17-59); BLOOD UREA NITROGEN 3 mg/dL (7-21); CALCIUM 8.5 mg/dL (8.4-10.5); GFR NON-AFRICAN AMERICAN > 60
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
[2018-08-28 11:21] LABS: VENOUS BLOOD GAS BASE EXCESS 2.9 mmol/L (0.0-2.0); VENOUS BLOOD GAS PO2 209 mm/Hg (30-55)
[2018-08-28] MEDS ORDERED: Influenza Vaccine 60 mcg/0.5 mL SYR (4YR UP) IM ONE (14:30)
[2018-08-28] MEDS ORDERED: Pneumococcal 23-Valent Vaccine IM ONE (14:30)
[2018-08-28] MEDS ORDERED: Vancomycin 1gm in NS 250ml 1 GM/250 ML BAG IVPB SCH (14:30)
--- NOTE | 2018-08-28 14:59 | CARD ---
APPROVED REPORT Date of service: 08/28/2018 EKG Measurement Heart [id number] <Conclusion> Normal sinus rhythm Cannot rule out Anterior infarct, age undetermined Abnormal ECG
--- NOTE | 2018-08-28 15:10 | US ---
PROCEDURE: Left lower extremity venous US HISTORY: Leg pain and swelling. Evaluate for DVT. PHYSICIAN(S): Collin Gutierrez MD. TECHNIQUE: Duplex sonography and color-flow Doppler with graded compression were used to evaluate the deep venous system of the left lower extremity. FINDINGS: The visualized deep venous system of the left lower extremity is sonographically normal and compressible. Normal wave forms and augmentation are seen. There is no sonographic evidence for deep venous thrombosis in the visualized segments of the left lower extremity. IMPRESSION: 1. No sonographic evidence for deep venous thrombosis in the visualized segments of the left lower extremity.
[2018-08-28] MEDS ORDERED: Pantoprazole 40 mg EC Tab PO SCH (16:00)
--- NOTE | 2018-08-28 16:25 | RAD ---
Date of service: 08/28/2018 PROCEDURE: Left Ankle Radiographs. HISTORY: ankle pain / swelling COMPARISON: None FINDINGS: BONES: Normal. No fracture. JOINTS: Normal. No osteoarthritis. Ankle mortise maintained. Talar dome intact SOFT TISSUES: Normal. OTHER FINDINGS: None. IMPRESSION: Normal left ankle radiographs.
--- NOTE | 2018-08-28 16:25 | RAD ---
Date of service: 08/28/2018 PROCEDURE: Radiographs of the left tibia and fibula. HISTORY: left leg pain COMPARISON: None available. TECHNIQUE: Frontal and lateral views obtained. FINDINGS: BONES: No fracture or destructive lesion. JOINT SPACES: Unremarkable. OTHER FINDINGS: None. IMPRESSION: Unremarkable radiographs of the left tibia and fibula.
[2018-08-28] MEDS ORDERED: Potassium Chloride 40 mEq/30 ml LIQ UD PO ONE (17:26)
[2018-08-28] MEDS: Vancomycin 1gm in NS 250ml 1 GM/250 ML BAG IVPB SCH (21:01)
[2018-08-28] MEDS ORDERED: Piperacillin/Tazobact 3.375 gm 100 ML IVPB SCH (22:00)
[2018-08-28] MEDS: Insulin Reg-LOW-Coverage SC SCH (22:33)
[2018-08-29 06:39] LABS: BASO # 0.03 K/mm3 (0.0-2.0); BASO % 0.6 % (0.0-3.0); EOS # 0.1 (0.0-0.7); GRAN # 2.45 (1.4-6.5); GRAN % 45.6 % (50.0-68.0); HEMOGLOBIN 10.9 g/dL (14.0-18.0); LYMPH # 2.2 (1.2-3.4); LYMPH % 40.5 % (22.0-35.0); MEAN CELL VOLUME 105.5 fl (80.0-105.0); MEAN CORPUSCULAR HEMOGLOBIN 35.3 pg (25.0-35.0); MEAN CORPUSCULAR HGB CONC 33.4 g/dl (31.0-37.0); MONO # 0.6 (0.1-0.6); MONO % 11.3 % (1.0-6.0); RBC 3.09 10^6/uL (3.5-6.1); RED CELL DISTRIBUTION WIDTH 12.9 % (11.5-14.5); WHITE BLOOD COUNT 5.4 10^3/ul (4.5-11.0)
[2018-08-29 06:48] LABS: ALB/GLOB RATIO 0.7 (1.1-1.8); ALT/SGPT 48 U/L (7-56); AST/SGOT 126 U/L (17-59); BLOOD UREA NITROGEN 2 mg/dL (7-21); CALCIUM 8.4 mg/dL (8.4-10.5); GFR NON-AFRICAN AMERICAN > 60
[2018-08-29] MEDS: Insulin Reg-LOW-Coverage SC SCH ×3 (07:51→16:11)
[2018-08-29] MEDS: Multivitamin Therapeutic Tab PO SCH (08:13)
[2018-08-29] MEDS ORDERED: Magnesium Sulfate 2 gm/50 ml 2 GM/50 ML BAG IVPB ONE (08:56)
[2018-08-29] MEDS ORDERED: Potassium Chloride 20 mEq ER Tab PO STA ×2 (08:58→13:47)
[2018-08-29] MEDS: Vancomycin 1gm in NS 250ml 1 GM/250 ML BAG IVPB SCH ×2 (09:00→21:14)
[2018-08-29] MEDS ORDERED: Piperacillin/Tazobact 3.375 gm 100 ML IVPB SCH ×2 (12:30→22:00)
--- NOTE | 2018-08-29 13:37 | CP.PCM.PN ---
<Elise Schuster - Last Filed: 08/29/18 13:34> Subjective - Date & Time of Evaluation Date of Evaluation: 08/29/18 Time of Evaluation: 10:30 - Subjective Subjective: PGY-1 Medicine Progress Note for Dr. Monsivais's service Patient seen and examined at bedside. Patient reports left leg and right leg pain. Patient denies fevers, chills, cp, sob, n/v, constipation or diarrhea, dysuria. Objective - Vital Signs/Intake and Output Vital Signs (last 24 hours): Temp Pulse Resp BP Pulse Ox 98.2 F 84 20 140/86 100 08/29/18 07:58 08/29/18 07:58 08/29/18 07:58 08/29/18 07:58 08/29/18 07:58 - Medications Medications: Current Medications Folic Acid (Folic Acid) 1 mg PO DAILY JOHNNIE Last Admin: 08/29/18 09:00 Dose: 1 mg Heparin Sodium (Porcine) (Heparin) 5,000 units SC Q8 JOHNNIE; Protocol Last Admin: 08/29/18 05:26 Dose: Not Given Vancomycin HCl (Vancomycin 1gm) 1 gm in 250 mls @ 167 mls/hr IVPB Q12 JOHNNIE; Protocol Last Admin: 08/29/18 09:00 Dose: 167 mls/hr Piperacillin Sod/Tazobactam Sod (Zosyn 3.375 In Ns 100ml) 100 mls @ 25 mls/hr IVPB Q12 JOHNNIE; Protocol Stop: 08/29/18 16:29 Insulin Human Regular (Humulin R Low) 0 units SC ACHS JOHNNIE; Protocol Last Admin: 08/29/18 12:30 Dose: Not Given Lorazepam (Ativan) 2 mg IVP Q6H JOHNNIE; Protocol Last Admin: 08/29/18 08:12 Dose: 2 mg Lorazepam (Ativan) 1 mg IVP Q1H PRN; Protocol PRN Reason: Symptoms of alcohol withdrawl Multivitamins (Thera Tab) 1 tab PO 0800 JOHNNIE Last Admin: 08/29/18 08:13 Dose: 1 tab Thiamine HCl (Vitamin B1 Tab) 100 mg PO DAILY JOHNNIE Last Admin: 08/29/18 09:00 Dose: 100 mg - Labs Labs: 08/29/18 06:00 08/29/18 06:00 - Constitutional Appears: Non-toxic, No Acute Distress - Head Exam Head Exam: NORMAL INSPECTION, NORMOCEPHALIC - Eye Exam Eye Exam: EOMI, Normal appearance. absent: Nystagmus, Scleral icterus - ENT Exam ENT Exam: Mucous Membranes Moist - Respiratory Exam Respiratory Exam: Clear to Ausculation Bilateral, NORMAL BREATHING PATTERN. absent: Rales, Rhonchi, Wheezes - Cardiovascular Exam Cardiovascular Exam: REGULAR RHYTHM, +S1, +S2. absent: Bradycardia, Tachycardia, Murmur - GI/Abdominal Exam GI & Abdominal Exam: Soft, Normal Bowel Sounds. absent: Firm, Guarding, Rigid, Tenderness - Extremities Exam Extremities Exam: Tenderness. absent: Calf Tenderness, Normal Inspection, Pedal Edema Additional comments: left leg swelling with mininmal erythema no oozing, draining, or pus noted well formed scar on the posterior foot near ankle, crusted, nonbloody - Neurological Exam Neurological Exam: Alert, Awake, Oriented x3 Neuro motor strength exam: Left Upper Extremity: 5, Right Upper Extremity: 5, Left Lower Extremity: 5, Right Lower Extremity: 5 - Psychiatric Exam Psychiatric exam: Normal Affect, Normal Mood - Skin Skin Exam: Intact, Normal Color Assessment and Plan - Assessment and Plan (Free Text) Assessment: Mr. Mccormick is a 48 yr old male with MH ETOH abuse, Liver cirrhosis and benign pancreatic tail lesion who resents to [facility] [place] [facility] c/o 3-4 days of LLE pain, redness and swelling. Patient started on Vanc/Azithromycin. Cx positive for Gram positive cocci Plan: LLE cellulitis ID consulted- Dr. Abbott- recommendations appreciated Podiatry consulted- Dr. Crum- recs appreciated Tibia/Fibula Xray- unremarkable Left Ankle Xray- normal left ankle radiographs Lower Extremity U/S- No DVT appreciated Vancomycin 1 gm q12 johnnie Zosyn 3.375gm q12 johnnie ETOH abuse CIWA protocol Ativan 1g q6h johnnie Ativan 0.5g q1h prn Thiamine/Multivitamins Electrolyte abnormalities KCl 40 meq oral KCl 10meq x 2 IVPB Mag Sulfate 2gm IVPB Repeat CMP and Mag level in AM PPX DVT- SCD, Heparin 5000 units GI- Protonix 40 Patient seen and discussed with Dr. Loi Schuster <Codie Monsivais - Last Filed: 08/29/18 16:56> Objective - Vital Signs/Intake and Output Vital Signs (last 24 hours): Temp Pulse Resp BP Pulse Ox 98.5 F 87 20 150/96 H 100 08/29/18 16:45 08/29/18 16:45 08/29/18 16:45 08/29/18 16:45 08/29/18 16:45 - Medications Medications: Current Medications Folic Acid (Folic Acid) 1 mg PO DAILY JOHNNIE Last Admin: 08/29/18 09:00 Dose: 1 mg Heparin Sodium (Porcine) (Heparin) 5,000 units SC Q8 JOHNNIE; Protocol Last Admin: 08/29/18 13:47 Dose: 5,000 units Vancomycin HCl (Vancomycin 1gm) 1 gm in 250 mls @ 167 mls/hr IVPB Q12 JOHNNIE; Protocol Last Admin: 08/29/18 09:00 Dose: 167 mls/hr Potassium Chloride (Potassium Chloride 10 Meq/100 Ml) 10 meq in 100 mls @ 50 mls/hr IVPB Q2H JOHNNIE Stop: 08/29/18 17:59 Last Admin: 08/29/18 15:58 Dose: 50 mls/hr Piperacillin Sod/Tazobactam Sod (Zosyn 3.375 In Ns 100ml) 100 mls @ 25 mls/hr IVPB Q12 JOHNNIE; Protocol Stop: 08/30/18 01:59 Insulin Human Regular (Humulin R Low) 0 units SC ACHS JOHNNIE; Protocol Last Admin: 08/29/18 16:11 Dose: Not Given Lorazepam (Ativan) 1 mg IVP Q6H JOHNNIE; Protocol Last Admin: 08/29/18 14:32 Dose: 1 mg Lorazepam (Ativan) 0.5 mg IVP Q1H PRN; Protocol PRN Reason: Symptoms of alcohol withdrawl Multivitamins (Thera Tab) 1 tab PO 0800 JOHNNIE Last Admin: 08/29/18 08:13 Dose: 1 tab Thiamine HCl (Vitamin B1 Tab) 100 mg PO DAILY JOHNNIE Last Admin: 08/29/18 09:00 Dose: 100 mg - Labs Labs: 08/29/18 06:00 08/29/18 06:00 Attending/Attestation - Attestation I have personally seen and examined this patient.: Yes I have fully participated in the care of the patient.: Yes I have reviewed all pertinent clinical information, including history, physical exam and plan: Yes Notes (Text): 08/29/18 16:54 48 year old homeless male with past medical history of chronic ETOH abuse and cirrhosis who presented with left leg cellulitis. Xray and LE doppler were negative. Continue with iv antibiotics. ID evaluation is pending. Podiatry evaluation was appreciated; MRI LE is ordered to rule out osteomyelitis. Continue with multivitamin, folic acid and thiamine. Continue with ativan johnnie/prn for withdrawal symptoms. Patient was counselled on alcohol abstinence. Continue to monitor LFTs closely. Transaminitis secondary to chronic ETOH abuse. Will replete and repeat lytes (potassium and magnesium). Codie Monsivais MD Hospitalist.
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
[2018-08-30] MEDS: Insulin Reg-LOW-Coverage SC SCH ×4 (07:55→21:30)
[2018-08-30 08:28] LABS: BASO # 0.01 K/mm3 (0.0-2.0); BASO % 0.2 % (0.0-3.0); EOS % 0.2 % (1.5-5.0); GRAN # 3.64 (1.4-6.5); GRAN % 75.7 % (50.0-68.0); HEMOGLOBIN 11.7 g/dL (14.0-18.0); LYMPH % 21.4 % (22.0-35.0); MEAN CELL VOLUME 105.5 fl (80.0-105.0); MEAN CORPUSCULAR HEMOGLOBIN 35.5 pg (25.0-35.0); MEAN CORPUSCULAR HGB CONC 33.6 g/dl (31.0-37.0); MEAN PLATELET VOLUME 10.7 fl (7.0-11.0); MONO # 0.1 (0.1-0.6); MONO % 2.5 % (1.0-6.0); RBC 3.3 10^6/uL (3.5-6.1); RED CELL DISTRIBUTION WIDTH 12.8 % (11.5-14.5); WHITE BLOOD COUNT 4.8 10^3/ul (4.5-11.0)
[2018-08-30] MEDS: Multivitamin Therapeutic Tab PO SCH (08:31)
[2018-08-30 08:49] LABS: ALB/GLOB RATIO 0.8 (1.1-1.8); ALBUMIN 3.7 g/dL (3.0-4.8); ALT/SGPT 47 U/L (7-56); AST/SGOT 105 U/L (17-59); BLOOD UREA NITROGEN 3 mg/dL (7-21); CALCIUM 9.2 mg/dL (8.4-10.5); GFR NON-AFRICAN AMERICAN > 60
--- NOTE | 2018-08-30 09:10 | CP.PCM.PN ---
<Luanne Milan - Last Filed: 08/30/18 09:10> Subjective - Date & Time of Evaluation Date of Evaluation: 08/30/18 Time of Evaluation: 09:07 - Subjective Subjective: Podiatry progress Note for Dr. Brennan: 48 yo male, with PMHx of alcohol abuse and liver cirrhosis, seen and evaluated at bedside for L ankle pain with cellulitis. Patient is AAOx3 and in NAD. Patient states he had an MRI done yesterday. denies acute overnight events. He states that the pain is beginning to radiate up his leg and that the swelling has increased. Patient denies N/V/F. Objective - Vital Signs/Intake and Output Vital Signs (last 24 hours): Temp Pulse Resp BP Pulse Ox 98.3 F 79 20 145/93 H 100 08/30/18 06:00 08/30/18 06:00 08/30/18 06:00 08/30/18 06:00 08/30/18 06:00 - Medications Medications: Current Medications Folic Acid (Folic Acid) 1 mg PO DAILY [facility] Last Admin: 08/29/18 09:00 Dose: 1 mg Heparin Sodium (Porcine) (Heparin) 5,000 units SC Q8 [facility]; Protocol Last Admin: 08/30/18 06:14 Dose: 5,000 units Vancomycin HCl (Vancomycin 1gm) 1 gm in 250 mls @ 167 mls/hr IVPB Q12 [facility]; Protocol Last Admin: 08/29/18 21:14 Dose: 167 mls/hr Insulin Human Regular (Humulin R Low) 0 units SC ACHS [facility]; Protocol Last Admin: 08/30/18 07:55 Dose: Not Given Lorazepam (Ativan) 1 mg IVP Q6H [facility]; Protocol Last Admin: 08/30/18 08:31 Dose: 1 mg Lorazepam (Ativan) 0.5 mg IVP Q1H PRN; Protocol PRN Reason: Symptoms of alcohol withdrawl Multivitamins (Thera Tab) 1 tab PO 0800 [facility] Last Admin: 08/30/18 08:31 Dose: 1 tab Thiamine HCl (Vitamin B1 Tab) 100 mg PO DAILY [facility] Last Admin: 08/29/18 09:00 Dose: 100 mg - Labs Labs: 08/30/18 08:00 08/30/18 08:00 - Constitutional Appears: Well, Non-toxic, No Acute Distress - Head Exam Head Exam: ATRAUMATIC - Extremities Exam Additional comments: Vascular: DP/PT pulses palpable, CFT < 3 seconds to all digits, +2 brawny edema noted to the lateral aspect of the ankle extending up toward distal 1/3 of the leg. Ortho: Pain upon palpation of L lateral ankle, no gross deformities present Neuro: Gross sensation intact Derm: Cellulitis localized to lateral aspect of L ankle, no streaking noted. Small open lesion noted to the lateral malleolus, beginning to epithelialize, no purulence, no drainage, no malodor present; no purulence noted from the posterior heel upon expression. - Neurological Exam Neurological Exam: Alert, Awake, Normal Gait - Psychiatric Exam Psychiatric exam: Normal Affect - Skin Skin Exam: Normal Color Assessment and Plan - Assessment and Plan (Free Text) Assessment: 48 yo male, with PMHx of alcohol abuse and liver cirrhosis, seen and evaluated at bedside for L ankle pain with cellulitis. Plan: Patient seen and evaluated at bedside, with Dr. Brennan WBC 4.8 Local wound care: Xeroform, DSD ID reccs appreciated bactroban ordered Continue with IV abx; Vanc/Zosyn Wound culture from LLE (08/28); pending Blood culture (08/28); gram + cocci, final read pending MRI of LLE ordered; official read pending L ankle and tib/fib x-rays; unremarkable LE U/S; No DVT appreciated Podiatry will continue to follow <Wilbert Brennan - Last Filed: 09/01/18 09:09> Objective - Vital Signs/Intake and Output Vital Signs (last 24 hours): Temp Pulse Resp BP Pulse Ox 98.2 F 80 18 113/79 100 09/01/18 08:04 09/01/18 08:04 09/01/18 08:04 09/01/18 08:04 09/01/18 08:04 Intake and Output: 09/01/18 09/01/18 06:59 18:59 Intake Total 120 Output Total 200 Balance -80 - Medications Medications: Current Medications Acetaminophen (Tylenol 325mg Tab) 650 mg PO Q6H PRN PRN Reason: Headache Last Admin: 08/31/18 04:14 Dose: 650 mg Folic Acid (Folic Acid) 1 mg PO DAILY [facility] Last Admin: 08/31/18 09:05 Dose: 1 mg Heparin Sodium (Porcine) (Heparin) 5,000 units SC Q8 [facility]; Protocol Last Admin: 09/01/18 06:15 Dose: 5,000 units Vancomycin HCl (Vancomycin 1gm) 1 gm in 250 mls @ 167 mls/hr IVPB Q12 [facility]; Protocol Last Admin: 08/31/18 21:45 Dose: 167 mls/hr Insulin Human Regular (Humulin R Low) 0 units SC ACHS [facility]; Protocol Last Admin: 09/01/18 08:04 Dose: Not Given Lorazepam (Ativan) 0.5 mg IVP Q1H PRN; Protocol PRN Reason: Symptoms of alcohol withdrawl Last Admin: 08/30/18 17:02 Dose: 0.5 mg Lorazepam (Ativan) 1 mg IVP BID [facility]; Protocol Last Admin: 08/31/18 17:32 Dose: 1 mg Multivitamins (Thera Tab) 1 tab PO 0800 [facility] Last Admin: 08/31/18 08:25 Dose: 1 tab Mupirocin (Bactroban Ointment) 0 gm TOP BID [facility] Last Admin: 08/31/18 17:34 Dose: 1 applic Thiamine HCl (Vitamin B1 Tab) 100 mg PO DAILY [facility] Last Admin: 08/31/18 09:05 Dose: 100 mg - Labs Labs: 09/01/18 06:15 08/31/18 07:00 Attending/Attestation - Attestation I have personally seen and examined this patient.: Yes I have fully participated in the care of the patient.: Yes I have reviewed all pertinent clinical information, including history, physical exam and plan: Yes
[2018-08-30] MEDS: Vancomycin 1gm in NS 250ml 1 GM/250 ML BAG IVPB SCH ×2 (09:32→21:24)
[2018-08-30] MEDS: Mupirocin 2% Ointment 15 GM TUBE TOP SCH ×2 (09:40→17:02)
[2018-08-30] MEDS ORDERED: Magnesium Sulfate 2 GM in Sodium Chloride 0.9% 100 ML IVPB ONE (09:52)
[2018-08-30] MEDS ORDERED: Magnesium Sulfate 2 GM in 50 ml Water IVPB ONE (10:30)
[2018-08-30] MEDS: Potassium & Sodium Phosphate PO SCH ×2 (15:05→17:02)
--- NOTE | 2018-08-30 15:31 | CP.PCM.PN ---
<Jem Abbott - Last Filed: 08/30/18 15:38> Subjective - Date & Time of Evaluation Date of Evaluation: 08/30/18 Time of Evaluation: 15:29 - Subjective Subjective: Pt seen and examined this morning. Reporting foot pain. Denies chest pain, SOB. Objective - Vital Signs/Intake and Output Vital Signs (last 24 hours): Temp Pulse Resp BP Pulse Ox 98.3 F 79 20 145/93 H 100 08/30/18 06:00 08/30/18 06:00 08/30/18 06:00 08/30/18 06:00 08/30/18 06:00 - Medications Medications: Current Medications Folic Acid (Folic Acid) 1 mg PO DAILY [facility] Last Admin: 08/30/18 09:33 Dose: 1 mg Heparin Sodium (Porcine) (Heparin) 5,000 units SC Q8 [facility]; Protocol Last Admin: 08/30/18 13:11 Dose: 5,000 units Vancomycin HCl (Vancomycin 1gm) 1 gm in 250 mls @ 167 mls/hr IVPB Q12 [facility]; Protocol Last Admin: 08/30/18 09:32 Dose: 167 mls/hr Insulin Human Regular (Humulin R Low) 0 units SC ACHS [facility]; Protocol Last Admin: 08/30/18 12:15 Dose: 1 unit Lorazepam (Ativan) 0.5 mg IVP Q1H PRN; Protocol PRN Reason: Symptoms of alcohol withdrawl Lorazepam (Ativan) 1 mg IVP Q8H [facility]; Protocol Last Admin: 08/30/18 13:15 Dose: 1 mg Multivitamins (Thera Tab) 1 tab PO 0800 [facility] Last Admin: 08/30/18 08:31 Dose: 1 tab Mupirocin (Bactroban Ointment) 0 gm TOP BID [facility] Last Admin: 08/30/18 09:40 Dose: Not Given Potassium Phos/Sodium Phos (Neutra-Phos) 1 pkt PO TID [facility] Stop: 08/31/18 10:01 Last Admin: 08/30/18 15:05 Dose: 1 pkt Thiamine HCl (Vitamin B1 Tab) 100 mg PO DAILY [facility] Last Admin: 08/30/18 09:33 Dose: 100 mg - Labs Labs: 08/30/18 08:00 08/30/18 08:00 - Constitutional Appears: Non-toxic, No Acute Distress - Head Exam Head Exam: ATRAUMATIC, NORMAL INSPECTION, NORMOCEPHALIC - Eye Exam Eye Exam: EOMI - ENT Exam ENT Exam: Mucous Membranes Moist - Neck Exam Neck Exam: Full ROM - Respiratory Exam Respiratory Exam: Clear to Ausculation Bilateral, NORMAL BREATHING PATTERN. absent: Accessory Muscle Use, Wheezes, Respiratory Distress - Cardiovascular Exam Cardiovascular Exam: RRR, +S1, +S2. absent: Diastolic murmur, Murmur - GI/Abdominal Exam GI & Abdominal Exam: Soft, Normal Bowel Sounds. absent: Rigid - Extremities Exam Extremities Exam: Full ROM Additional comments: left foot bandaged DSD - Neurological Exam Neurological Exam: Alert, Awake, Oriented x3 - Psychiatric Exam Psychiatric exam: Normal Affect, Normal Mood - Skin Skin Exam: Dry, Intact, Warm Assessment and Plan - Assessment and Plan (Free Text) Assessment: Mr. Mccormick is a 48 yr old male with ETOH abuse, Liver cirrhosis and benign pancreatic tail lesion who resents [place] [facility] c/o 3-4 days of LLE pain, redness and swelling. Cx positive for Gram positive cocci Plan: LLE cellulitis - Tibia/Fibula Xray- unremarkable - Left Ankle Xray- normal left ankle radiographs - Lower Extremity U/S- No DVT appreciated - Vancomycin 1 gm q12 johnnie - MRI pending - ID consulted- Dr. Abbott- recommendations appreciated - Podiatry consulted- Dr. Crum- recs appreciated ETOH abuse - CIWA 8 - Ativan 1g q8h johnnie - Ativan 0.5g q1h prn - continue to taper ativan - Thiamine/Multivitamins Electrolyte abnormalities - KCl 40 meq oral - KCl 10meq x 2 IVPB - Mag Sulfate 2gm IVPB - Repeat CMP and Mag level in AM PPX - SCD, Heparin 5000 units - Protonix 40 Patient seen, examined, assessment and plan discussed with Dr. Loi Abbott PGY1 <Codie Monsivais - Last Filed: 08/30/18 15:43> Objective - Vital Signs/Intake and Output Vital Signs (last 24 hours): Temp Pulse Resp BP Pulse Ox 98.3 F 79 20 145/93 H 100 08/30/18 06:00 08/30/18 06:00 08/30/18 06:00 08/30/18 06:00 08/30/18 06:00 - Medications Medications: Current Medications Folic Acid (Folic Acid) 1 mg PO DAILY [facility] Last Admin: 08/30/18 09:33 Dose: 1 mg Heparin Sodium (Porcine) (Heparin) 5,000 units SC Q8 [facility]; Protocol Last Admin: 08/30/18 13:11 Dose: 5,000 units Vancomycin HCl (Vancomycin 1gm) 1 gm in 250 mls @ 167 mls/hr IVPB Q12 [facility]; Protocol Last Admin: 08/30/18 09:32 Dose: 167 mls/hr Insulin Human Regular (Humulin R Low) 0 units SC ACHS [facility]; Protocol Last Admin: 08/30/18 12:15 Dose: 1 unit Lorazepam (Ativan) 0.5 mg IVP Q1H PRN; Protocol PRN Reason: Symptoms of alcohol withdrawl Lorazepam (Ativan) 1 mg IVP Q8H [facility]; Protocol Last Admin: 08/30/18 13:15 Dose: 1 mg Multivitamins (Thera Tab) 1 tab PO 0800 [facility] Last Admin: 08/30/18 08:31 Dose: 1 tab Mupirocin (Bactroban Ointment) 0 gm TOP BID [facility] Last Admin: 08/30/18 09:40 Dose: Not Given Potassium Phos/Sodium Phos (Neutra-Phos) 1 pkt PO TID [facility] Stop: 08/31/18 10:01 Last Admin: 08/30/18 15:05 Dose: 1 pkt Thiamine HCl (Vitamin B1 Tab) 100 mg PO DAILY [facility] Last Admin: 08/30/18 09:33 Dose: 100 mg - Labs Labs: 08/30/18 08:00 08/30/18 08:00 Attending/Attestation - Attestation I have personally seen and examined this patient.: Yes I have fully participated in the care of the patient.: Yes I have reviewed all pertinent clinical information, including history, physical exam and plan: Yes Notes (Text): 08/30/18 15:42 48 year old homeless male with past medical history of chronic ETOH abuse and cirrhosis who presented with left leg cellulitis. Xray and LE doppler were negative. MRI LE is ordered to rule out osteomyelitis. Wound culture grew staph aureus. BCx grew one bottle gram positive cocci. Continue with iv antibiotics as per ID and wound care as per podiatry. Continue with ativan johnnie/prn for withdrawal symptoms. Patient was counselled on alcohol abstinence. Continue to monitor LFTs closely. Transaminitis secondary to chronic ETOH abuse. Will replete and repeat lytes (phosphorous and magnesium). Codie Monsivais MD Hospitalist.
--- NOTE | 2018-08-30 18:45 | PN ---
DATE: 08/30/2018 SUBJECTIVE: The patient is in bed, in no acute distress, nontoxic. PHYSICAL EXAMINATION: VITAL SIGNS: On exam, temperature is 98, blood pressure is 145/90, respiratory rate of 20, heart rate of 95. HEENT: Examination of HEENT is unremarkable. NECK: Supple. LUNGS: Have decreased breath sounds. HEART: Normal S1, S2. ABDOMEN: Soft. LABORATORY DATA: Laboratory examination reveals a white count of 4.8. Chemistries are noted. The BUN of three, creatinine of 0.4. Microbiology is reviewed. The blood cultures are gram-positive cocci. Coag-negative Staph by PNA-FISH. The left ankle culture is Staph aureus and sensitivity is pending. ASSESSMENT AND PLAN: A 48-year-old male seen earlier today in room 360, bed 1 with a history of alcoholism, history of esophageal candidiasis, pancreatic tail lesion and the left leg cellulitis with Staphylococcus aureus sensitivity pending. On vancomycin, coag-negative Staphylococcus in the blood, probably a contamination. The patient had an MRI, the results are pending. The patient does not have any intravascular devices, history of hypertension, high cholesterol, alcoholism, liver disease, pancreatitis. We will repeat blood cultures x2 and we will make further recommendations. I am going to continue the vancomycin pending the MRI results, sensitivity of the Staphylococcus aureus from the leg and the repeat blood culture results. Bill Mcnulty MD
--- NOTE | 2018-08-31 06:13 | CP.PCM.PN ---
<Jem Abbott - Last Filed: 08/31/18 12:43> Subjective - Date & Time of Evaluation Date of Evaluation: 08/31/18 Time of Evaluation: 06:11 - Subjective Subjective: Pt seen and examined. Pt denies fever, chills. Pt states LLE pain is improving, but pain is worse when he walks on it Objective - Vital Signs/Intake and Output Vital Signs (last 24 hours): Temp Pulse Resp BP Pulse Ox 98.1 F 93 H 20 134/91 H 100 08/31/18 00:00 08/31/18 02:00 08/31/18 00:00 08/31/18 00:00 08/31/18 00:00 Intake and Output: 08/30/18 08/31/18 18:59 06:59 Intake Total 1540 Output Total 1100 Balance 440 - Medications Medications: Current Medications Acetaminophen (Tylenol 325mg Tab) 650 mg PO Q6H PRN PRN Reason: Headache Last Admin: 08/31/18 04:14 Dose: 650 mg Folic Acid (Folic Acid) 1 mg PO DAILY [facility] Last Admin: 08/30/18 09:33 Dose: 1 mg Heparin Sodium (Porcine) (Heparin) 5,000 units SC Q8 [facility]; Protocol Last Admin: 08/31/18 05:09 Dose: 5,000 units Vancomycin HCl (Vancomycin 1gm) 1 gm in 250 mls @ 167 mls/hr IVPB Q12 [facility]; Protocol Last Admin: 08/30/18 21:24 Dose: 167 mls/hr Insulin Human Regular (Humulin R Low) 0 units SC ACHS [facility]; Protocol Last Admin: 08/30/18 21:30 Dose: Not Given Lorazepam (Ativan) 0.5 mg IVP Q1H PRN; Protocol PRN Reason: Symptoms of alcohol withdrawl Last Admin: 08/30/18 17:02 Dose: 0.5 mg Lorazepam (Ativan) 1 mg IVP Q8H [facility]; Protocol Last Admin: 08/31/18 04:59 Dose: 1 mg Multivitamins (Thera Tab) 1 tab PO 0800 [facility] Last Admin: 08/30/18 08:31 Dose: 1 tab Mupirocin (Bactroban Ointment) 0 gm TOP BID [facility] Last Admin: 08/30/18 17:02 Dose: 1 applic Potassium Phos/Sodium Phos (Neutra-Phos) 1 pkt PO TID [facility] Stop: 08/31/18 10:01 Last Admin: 08/30/18 17:02 Dose: 1 pkt Thiamine HCl (Vitamin B1 Tab) 100 mg PO DAILY [facility] Last Admin: 08/30/18 09:33 Dose: 100 mg - Labs Labs: 08/30/18 08:00 08/30/18 08:00 - Constitutional Appears: Non-toxic, No Acute Distress - Head Exam Head Exam: ATRAUMATIC, NORMAL INSPECTION, NORMOCEPHALIC - Eye Exam Eye Exam: EOMI - ENT Exam ENT Exam: Mucous Membranes Moist - Respiratory Exam Respiratory Exam: Clear to Ausculation Bilateral, NORMAL BREATHING PATTERN. absent: Accessory Muscle Use - Cardiovascular Exam Cardiovascular Exam: RRR, +S1, +S2. absent: Diastolic murmur, Murmur - GI/Abdominal Exam GI & Abdominal Exam: Soft, Normal Bowel Sounds - Extremities Exam Extremities Exam: Full ROM. absent: Calf Tenderness, Pedal Edema Additional comments: LLE bandage in place, intact, dry - Neurological Exam Neurological Exam: Awake, Oriented x3 - Psychiatric Exam Psychiatric exam: Normal Affect, Normal Mood - Skin Skin Exam: Dry, Intact, Warm Assessment and Plan - Assessment and Plan (Free Text) Assessment: Mr. Mccormick is a 48 yr old male with ETOH abuse, Liver cirrhosis and benign pancreatic tail lesion who resents to [facility] ED c/o 3-4 days of LLE pain, redness and swelling. Cx positive for Gram positive cocci Plan: LLE cellulitis - Tibia/Fibula Xray- unremarkable - Left Ankle Xray- normal left ankle radiographs - Lower Extremity U/S- No DVT appreciated - Vancomycin 1 gm q12 johnnie - MRI pending - ID consulted- Dr. Abbott- recommendations appreciated - Podiatry consulted- Dr. Crum- recs appreciated History of Pancreatic Lesion - in the setting of elevated LFTs - follow up MRCP with/without IV contrast ETOH abuse - transaminitis - continue CIWA protocol - Thiamine/Multivitamins - Ativan 1g BID johnnie - Ativan 0.5g q1h prn - continue to taper ativan Electrolyte abnormalities - continue to replete PRN - continue to follow CMP PPX - SCD - Heparin 5000 units - Protonix 40 Dispo: pt is refusing rehab Patient seen, examined, assessment and plan discussed with Dr. Loi Abbott PGY1 <Codie Monsivais - Last Filed: 08/31/18 13:25> Objective - Vital Signs/Intake and Output Vital Signs (last 24 hours): Temp Pulse Resp BP Pulse Ox 98.0 F 106 H 20 135/95 H 98 08/31/18 06:00 08/31/18 10:00 08/31/18 06:00 08/31/18 06:00 08/31/18 06:00 Intake and Output: 08/31/18 08/31/18 06:59 18:59 Intake Total 850 Output Total 1800 Balance -950 - Medications Medications: Current Medications Acetaminophen (Tylenol 325mg Tab) 650 mg PO Q6H PRN PRN Reason: Headache Last Admin: 08/31/18 04:14 Dose: 650 mg Folic Acid (Folic Acid) 1 mg PO DAILY [facility] Last Admin: 08/31/18 09:05 Dose: 1 mg Heparin Sodium (Porcine) (Heparin) 5,000 units SC Q8 [facility]; Protocol Last Admin: 08/31/18 05:09 Dose: 5,000 units Vancomycin HCl (Vancomycin 1gm) 1 gm in 250 mls @ 167 mls/hr IVPB Q12 [facility]; Protocol Last Admin: 08/31/18 09:04 Dose: 167 mls/hr Magnesium Sulfate (Magnesium Sulfate 2 Gm/50 Ml Water) 2 gm in 50 mls @ 50 mls/hr IVPB ONCE ONE Stop: 08/31/18 13:49 Insulin Human Regular (Humulin R Low) 0 units SC ACHS [facility]; Protocol Last Admin: 08/31/18 11:53 Dose: Not Given Lorazepam (Ativan) 0.5 mg IVP Q1H PRN; Protocol PRN Reason: Symptoms of alcohol withdrawl Last Admin: 08/30/18 17:02 Dose: 0.5 mg Lorazepam (Ativan) 1 mg IVP BID [facility]; Protocol Multivitamins (Thera Tab) 1 tab PO 0800 [facility] Last Admin: 08/31/18 08:25 Dose: 1 tab Mupirocin (Bactroban Ointment) 0 gm TOP BID [facility] Last Admin: 08/31/18 09:05 Dose: 1 applic Thiamine HCl (Vitamin B1 Tab) 100 mg PO DAILY [facility] Last Admin: 08/31/18 09:05 Dose: 100 mg - Labs Labs: 10/14/18 07:00 08/31/18 07:00 Attending/Attestation - Attestation I have personally seen and examined this patient.: Yes I have fully participated in the care of the patient.: Yes I have reviewed all pertinent clinical information, including history, physical exam and plan: Yes Notes (Text): 08/31/18 13:23 48 year old homeless male with past medical history of chronic ETOH abuse and ci rrhosis who presented with left leg cellulitis. Xray and LE doppler were negative. MRI LE was done to rule out osteomyelitis but still pending read. Wound culture grew staph aureus. BCx grew one bottle gram positive cocci. Continue with iv antibiotics as per ID and wound care as per podiatry. Continue with tapering ativan johnnie/prn for withdrawal symptoms. Patient was counselled on alcohol abstinence. Patient has history of pancreatic lesion; recently biopsy was negative for malignancy. Will follow up on MRCP and continue to monitor LFTs closely. Will replete and repeat lytes (potassium and magnesium). Codie Monsivais MD Hospitalist.
[2018-08-31] MEDS: Insulin Reg-LOW-Coverage SC SCH ×4 (08:03→21:45)
[2018-08-31] MEDS: Multivitamin Therapeutic Tab PO SCH (08:25)
[2018-08-31 08:37] LABS: GRAN % 57.3 % (50.0-68.0); HEMOGLOBIN 11.8 g/dL (14.0-18.0); LYMPH % 32.7 % (22.0-35.0); MEAN CELL VOLUME 105.2 fl (80.0-105.0); MEAN CORPUSCULAR HEMOGLOBIN 36.1 pg (25.0-35.0); MEAN CORPUSCULAR HGB CONC 34.3 g/dl (31.0-37.0); MEAN PLATELET VOLUME 10.6 fl (7.0-11.0); MONO % 8.8 % (1.0-6.0); RBC 3.27 10^6/uL (3.5-6.1); WHITE BLOOD COUNT 9.4 10^3/ul (4.5-11.0)
[2018-08-31 08:38] LABS: BASO # 0.02 K/mm3 (0.0-2.0); BASO % 0.2 % (0.0-3.0); EOS # 0.1 (0.0-0.7); GRAN # 5.38 (1.4-6.5); LYMPH # 3.1 (1.2-3.4); MONO # 0.8 (0.1-0.6)
[2018-08-31 09:03] LABS: ALB/GLOB RATIO 0.8 (1.1-1.8); ALBUMIN 3.4 g/dL (3.0-4.8); ALT/SGPT 40 U/L (7-56); AST/SGOT 80 U/L (17-59); BLOOD UREA NITROGEN 5 mg/dL (7-21); CALCIUM 9.5 mg/dL (8.4-10.5); GFR NON-AFRICAN AMERICAN > 60
[2018-08-31] MEDS: Vancomycin 1gm in NS 250ml 1 GM/250 ML BAG IVPB SCH ×2 (09:04→21:45)
[2018-08-31] MEDS: Mupirocin 2% Ointment 15 GM TUBE TOP SCH ×2 (09:05→17:34)
[2018-08-31] MEDS: Potassium & Sodium Phosphate PO SCH (09:05)
--- NOTE | 2018-08-31 11:44 | CP.PCM.PN ---
Subjective - Date & Time of Evaluation Date of Evaluation: 08/31/18 Time of Evaluation: 11:42 - Subjective Subjective: Podiatry progress Note for Dr. Brennan: 48 yo male, with PMHx of alcohol abuse and liver cirrhosis, seen and evaluated at bedside for L ankle pain with cellulitis. Patient is AAOx3 and in NAD. Patient states he had an MRI done yesterday. denies acute overnight events. He states that the pain is beginning to radiate up his leg and that the swelling has increased. Patient denies N/V/F. Objective - Vital Signs/Intake and Output Vital Signs (last 24 hours): Temp Pulse Resp BP Pulse Ox 98.0 F 106 H 20 135/95 H 98 08/31/18 06:00 08/31/18 10:00 08/31/18 06:00 08/31/18 06:00 08/31/18 06:00 Intake and Output: 08/31/18 08/31/18 06:59 18:59 Intake Total 850 Output Total 1800 Balance -950 - Medications Medications: Current Medications Acetaminophen (Tylenol 325mg Tab) 650 mg PO Q6H PRN PRN Reason: Headache Last Admin: 08/31/18 04:14 Dose: 650 mg Folic Acid (Folic Acid) 1 mg PO DAILY [facility] Last Admin: 08/31/18 09:05 Dose: 1 mg Heparin Sodium (Porcine) (Heparin) 5,000 units SC Q8 [facility]; Protocol Last Admin: 08/31/18 05:09 Dose: 5,000 units Vancomycin HCl (Vancomycin 1gm) 1 gm in 250 mls @ 167 mls/hr IVPB Q12 [facility]; Protocol Last Admin: 08/31/18 09:04 Dose: 167 mls/hr Insulin Human Regular (Humulin R Low) 0 units SC ACHS [facility]; Protocol Last Admin: 08/31/18 08:03 Dose: Not Given Lorazepam (Ativan) 0.5 mg IVP Q1H PRN; Protocol PRN Reason: Symptoms of alcohol withdrawl Last Admin: 08/30/18 17:02 Dose: 0.5 mg Lorazepam (Ativan) 1 mg IVP Q8H [facility]; Protocol Last Admin: 08/31/18 04:59 Dose: 1 mg Multivitamins (Thera Tab) 1 tab PO 0800 [facility] Last Admin: 08/31/18 08:25 Dose: 1 tab Mupirocin (Bactroban Ointment) 0 gm TOP BID [facility] Last Admin: 08/31/18 09:05 Dose: 1 applic Thiamine HCl (Vitamin B1 Tab) 100 mg PO DAILY [facility] Last Admin: 08/31/18 09:05 Dose: 100 mg - Labs Labs: 08/31/18 07:00 08/31/18 07:00 - Constitutional Appears: Well, Non-toxic, No Acute Distress - Head Exam Head Exam: ATRAUMATIC, NORMOCEPHALIC - Extremities Exam Additional comments: Vascular: DP/PT pulses palpable, CFT < 3 seconds to all digits, +2 brawny edema noted to the lateral aspect of the ankle extending up toward distal 1/3 of the leg. Ortho: Pain upon palpation of L lateral ankle, no gross deformities present Neuro: Gross sensation intact Derm: Cellulitis localized to lateral aspect of L ankle, no streaking noted. Small open lesion noted to the lateral malleolus, beginning to epithelialize, no purulence, no drainage, no malodor present; no purulence noted from the posterior heel upon expression. - Neurological Exam Neurological Exam: Alert, Normal Gait - Psychiatric Exam Psychiatric exam: Normal Affect, Normal Mood - Skin Skin Exam: Normal Color Assessment and Plan - Assessment and Plan (Free Text) Assessment: 48 yo male, with PMHx of alcohol abuse and liver cirrhosis, seen and evaluated at bedside for L ankle pain with cellulitis Plan: Patient seen and evaluated at bedside, with Dr. Brennan WBC 4.8 Local wound care: Xeroform, DSD ID reccs appreciated bactroban ordered Continue with IV abx; Vanc/Zosyn Wound culture from LLE (08/28); staph aureus Blood culture (08/28); gram + cocci, coagulase negative staphylococcus MRI of LLE ordered; official read pending L ankle and tib/fib x-rays; unremarkable LE U/S; No DVT appreciated Podiatry will continue to follow
[2018-08-31] MEDS ORDERED: Potassium Chloride 20 mEq ER Tab PO ONE (12:49)
[2018-08-31] MEDS ORDERED: Magnesium Oxide 400 mg Tab UD PO ONE (12:50)
[2018-08-31] MEDS ORDERED: Magnesium Sulfate 2 gm/50 ml 2 GM/50 ML BAG IVPB ONE (12:50)
[2018-08-31] MEDS ORDERED: Gadodiamide 287 MG/ML VIAL (20ML) IV ONE (12:57)
--- NOTE | 2018-08-31 16:21 | MRI ---
Date of service: 08/31/2018 PROCEDURE: Magnetic Resonance Cholangiopancreatography HISTORY: COMPARISON: 10/25/2017 TECHNIQUE: Multiplanar, multisequence MR images of the abdomen were obtained, including heavily T2 weighted MRCP images of the biliary system. Rotating maximum intensity projection images of the biliary system were generated. Please note that post gadolinium images could not be obtained at this time. There is infiltration of the patient's intravenous catheter at the time of the examination and and the catheter was not replaced at the time of this examination. Please note that the examination is limited by the patient's inability to cooperate for respiratory suspension for breath hold sequences normally performed in this examination. FINDINGS: MRCP: There is mild dilatation of the common bile duct to a diameter of approximately 8-9 mm. There is no evidence of choledocholithiasis. There is no intrahepatic biliary dilatation seen.. LIVER: Normal size, contour and signal intensity. Nonspecific fluid signal mass in the right lobe of the liver, 9 mm diameter. No intrahepatic biliary dilatation. Smooth contour. GALLBLADDER: Unremarkable. SPLEEN: Unremarkable. PANCREAS: In the tail of the pancreas there is a mass measuring approximately 3.1 x 4.1 x 3.3 cm. It is low in signal on T1 weighted sequences and intermediate in signal on T2 weighted sequences. Significance uncertain. Is increased in size from prior MR examination of 10/25/2017, at which time it measured approximately 2.6 x 3.4 x 2.7 cm. The question of gadolinium enhancement could not be addressed in this examination as detailed above. There is no other pancreatic mass. There is no pancreatic ductal dilatation. ADRENALS: Unremarkable. KIDNEYS: Significant for a 9 mm right upper pole renal cyst unchanged from prior examination. AORTA: No aneurysm. ASCITES: None. OTHER FINDINGS: None. IMPRESSION: Increased size of pancreatic tail mass compared to 10/25/2017. Could not assess for gadolinium enhancement at this time. Proteinaceous or postinflammatory cyst/pseudocyst versus cystic or mucinous neoplasm. Additional minor findings as above.
--- NOTE | 2018-08-31 18:31 | PN ---
DATE: 08/31/2018 SUBJECTIVE: The patient is in bed, in no acute distress, nontoxic. PHYSICAL EXAMINATION: VITAL SIGNS: Temperature is 98, blood pressure is 135/90, respiratory rate of 20. HEENT: Unremarkable. NECK: Supple. LUNGS: Decreased breath sounds. HEART: Normal S1, S2. ABDOMEN: Soft, nontender. LABORATORY EXAMINATION: Reveals the patient's white count is 9.4, hemoglobin of 11, and platelets of 220. Chemistries are noted. Toxicology noted. Microbiology reveals the blood cultures have coag-negative staph one bottle and left ankle culture is staph aureus pansensitive. ASSESSMENT AND PLAN: A 48-year-old male seen earlier today in room 360 with a history of alcoholism, esophageal candidiasis, pancreatic tail lesion with a left leg cellulitis with a sensitive Staphylococcus aureus on vancomycin, coagulase-negative staphylococcus one bottle, which is most likely a contamination since the patient has no intravascular devices in a patient with alcoholism, liver disease, pancreatitis, history of hypertension, high cholesterol, and on vancomycin. The patient had an MRI of the foot, the results are pending still. Extremity MRI is pending. Fluid Dynamicist's note is reviewed. We will continue the vancomycin at this time and pending MRI results. We will renew the vancomycin. We will also order a vancomycin trough level. The patient receives the vancomycin at 10 a.m. and 10 p.m. and order a vancomycin tomorrow at 9 a.m. an hour before to 10 o'clock dose. Vancomycin trough level. We will follow with you. Bill Mcnulty MD
[2018-09-01] MEDS: Multivitamin Therapeutic Tab PO SCH (00:16)
[2018-09-01 07:03] LABS: BASO # 0.04 K/mm3 (0.0-2.0); BASO % 0.5 % (0.0-3.0); EOS # 0.1 (0.0-0.7); EOS % 1.5 % (1.5-5.0); GRAN # 3.71 (1.4-6.5); GRAN % 44.9 % (50.0-68.0); HEMOGLOBIN 12.1 g/dL (14.0-18.0); LYMPH # 3.6 (1.2-3.4); LYMPH % 44.1 % (22.0-35.0); MEAN CELL VOLUME 105.6 fl (80.0-105.0); MEAN CORPUSCULAR HEMOGLOBIN 35.6 pg (25.0-35.0); MEAN CORPUSCULAR HGB CONC 33.7 g/dl (31.0-37.0); MEAN PLATELET VOLUME 10.8 fl (7.0-11.0); MONO # 0.7 (0.1-0.6); RBC 3.4 10^6/uL (3.5-6.1); RED CELL DISTRIBUTION WIDTH 13.2 % (11.5-14.5); WHITE BLOOD COUNT 8.3 10^3/ul (4.5-11.0)
[2018-09-01] MEDS: Insulin Reg-LOW-Coverage SC SCH ×4 (08:04→21:31)
[2018-09-01] MEDS: Mupirocin 2% Ointment 15 GM TUBE TOP SCH ×2 (09:15→17:26)
[2018-09-01] MEDS: Vancomycin 1gm in NS 250ml 1 GM/250 ML BAG IVPB SCH ×2 (09:17→21:31)
[2018-09-01] MEDS ORDERED: Potassium Chloride 20 mEq ER Tab PO STA (09:25)
[2018-09-01 09:32] LABS: ALB/GLOB RATIO 0.8 (1.1-1.8); ALBUMIN 4.2 g/dL (3.0-4.8); ALT/SGPT 42 U/L (7-56); AST/SGOT 90 U/L (17-59); BLOOD UREA NITROGEN 7 mg/dL (7-21); CALCIUM 9.8 mg/dL (8.4-10.5); GFR NON-AFRICAN AMERICAN > 60
--- NOTE | 2018-09-01 11:52 | CP.PCM.PN ---
<Naty Triplett - Last Filed: 09/01/18 12:18> Subjective - Date & Time of Evaluation Date of Evaluation: 09/01/18 Time of Evaluation: 11:51 - Subjective Subjective: Podiatry progress Note for Dr. Brennan: 48 yo male seen and evaluated at bedside for L ankle pain with cellulitis to the lateral aspect of the ankle. Patient reports mild pain to the lateral aspect of the L ankle. He denies any new pedal complaints. Patient denies N/V/F. Objective - Vital Signs/Intake and Output Vital Signs (last 24 hours): Temp Pulse Resp BP Pulse Ox 98.2 F 98 H 18 113/79 100 09/01/18 08:04 09/01/18 10:00 09/01/18 08:04 09/01/18 08:04 09/01/18 08:04 Intake and Output: 09/01/18 09/01/18 06:59 18:59 Intake Total 120 Output Total 200 Balance -80 - Medications Medications: Current Medications Acetaminophen (Tylenol 325mg Tab) 650 mg PO Q6H PRN PRN Reason: Headache Last Admin: 08/31/18 04:14 Dose: 650 mg Folic Acid (Folic Acid) 1 mg PO DAILY [facility] Last Admin: 09/01/18 09:15 Dose: 1 mg Heparin Sodium (Porcine) (Heparin) 5,000 units SC Q8 [facility]; Protocol Last Admin: 09/01/18 06:15 Dose: 5,000 units Vancomycin HCl (Vancomycin 1gm) 1 gm in 250 mls @ 167 mls/hr IVPB Q12 [facility]; Protocol Last Admin: 09/01/18 09:17 Dose: 167 mls/hr Insulin Human Regular (Humulin R Low) 0 units SC ACHS [facility]; Protocol Last Admin: 09/01/18 11:34 Dose: Not Given Lorazepam (Ativan) 0.5 mg IVP Q1H PRN; Protocol PRN Reason: Symptoms of alcohol withdrawl Last Admin: 08/30/18 17:02 Dose: 0.5 mg Lorazepam (Ativan) 1 mg IVP BID [facility]; Protocol Last Admin: 09/01/18 09:14 Dose: 1 mg Multivitamins (Thera Tab) 1 tab PO 0800 [facility] Last Admin: 09/01/18 00:16 Dose: 1 tab Mupirocin (Bactroban Ointment) 0 gm TOP BID [facility] Last Admin: 09/01/18 09:15 Dose: 1 applic Thiamine HCl (Vitamin B1 Tab) 100 mg PO DAILY [facility] Last Admin: 09/01/18 09:17 Dose: 100 mg - Labs Labs: 09/01/18 06:15 09/01/18 09:00 - Constitutional Appears: No Acute Distress - Extremities Exam Additional comments: Vascular: DP/PT pulses palpable, CFT < 3 seconds to all digits, +1 brawny edema noted to the lateral aspect of the ankle, TG warm to warm with increased warmth to the lateral aspect of the ankle Ortho: Pain upon palpation of L lateral ankle, MMT 5/5 to all compartments Neuro: Gross sensation intact, unable to assess protective sensation Derm: Cellulitis localized to lateral aspect of L ankle, no streaking noted. Small open lesion noted to the lateral malleolus, beginning to epithelialize, no purulence, no drainage, no malodor present; no purulence noted from the posterior heel upon expression. - Neurological Exam Neurological Exam: Alert, Awake, Oriented x3 - Psychiatric Exam Psychiatric exam: Normal Affect, Normal Mood Assessment and Plan - Assessment and Plan (Free Text) Assessment: 48 yo male seen and evaluated at bedside for L ankle pain with cellulitis. Plan: Patient seen and evaluated at bedside, with Dr. Mika FAYE, WBC 8.3 Local wound care: DSD to lateral aspect of L ankle Continue with IV abx per Dr. Mcnulty; Vanc Wound culture from LLE (08/28); staph aureus Blood culture (08/30); no growth MRI of LLE ordered; official read pending L ankle and tib/fib x-rays; unremarkable LE U/S; No DVT appreciated Podiatry will continue to follow <Wilbert Brennan - Last Filed: 09/02/18 12:10> Objective - Vital Signs/Intake and Output Vital Signs (last 24 hours): Temp Pulse Resp BP Pulse Ox 98.1 F 92 H 20 120/81 99 09/02/18 07:31 09/02/18 07:31 09/02/18 07:31 09/02/18 07:31 09/02/18 07:31 - Medications Medications: Current Medications Acetaminophen (Tylenol 325mg Tab) 650 mg PO Q6H PRN PRN Reason: Headache Last Admin: 08/31/18 04:14 Dose: 650 mg Folic Acid (Folic Acid) 1 mg PO DAILY [facility] Last Admin: 09/02/18 09:05 Dose: 1 mg Heparin Sodium (Porcine) (Heparin) 5,000 units SC Q8 [facility]; Protocol Last Admin: 09/02/18 05:09 Dose: 5,000 units Vancomycin HCl (Vancomycin 1gm) 1 gm in 250 mls @ 167 mls/hr IVPB Q12 [facility]; Protocol Last Admin: 09/02/18 09:14 Dose: 167 mls/hr Insulin Human Regular (Humulin R Low) 0 units SC ACHS [facility]; Protocol Last Admin: 09/01/18 21:31 Dose: Not Given Lorazepam (Ativan) 0.5 mg IVP Q1H PRN; Protocol PRN Reason: Symptoms of alcohol withdrawl Last Admin: 08/30/18 17:02 Dose: 0.5 mg Lorazepam (Ativan) 1 mg IVP BID [facility]; Protocol Last Admin: 09/01/18 09:14 Dose: 1 mg Multivitamins (Thera Tab) 1 tab PO 0800 [facility] Last Admin: 09/02/18 09:07 Dose: 1 tab Mupirocin (Bactroban Ointment) 0 gm TOP BID [facility] Last Admin: 09/02/18 09:13 Dose: 1 applic Thiamine HCl (Vitamin B1 Tab) 100 mg PO DAILY [facility] Last Admin: 09/02/18 09:06 Dose: 100 mg - Labs Labs: 09/02/18 06:00 09/02/18 06:00 Attending/Attestation - Attestation I have personally seen and examined this patient.: Yes I have fully participated in the care of the patient.: Yes I have reviewed all pertinent clinical information, including history, physical exam and plan: Yes
[2018-09-01] MEDS ORDERED: Magnesium Oxide 400 mg Tab UD PO STA (12:25)
--- NOTE | 2018-09-01 13:00 | MRI ---
Date of service: 08/29/2018 PROCEDURE: MRI of the left lower extremity without contrast HISTORY: L leg cellulitis COMPARISON: Comparison is made to the previous x-ray of the left tibia and fibula dated 08/28/2018 TECHNIQUE: Axial coronal and sagittal MRI images of the left lower extremity were obtained from the knee to the ankle without IV contrast administration. FINDINGS: The study demonstrate diffuse skin and subcutaneous edema and heterogeneous increased signal at left leg extending from the level of the knee to ankle. No evidence of discrete fluid collection. Findings suggestive of cellulitis and subcutaneous edema. Mild increased signal noted in the left leg muscles suggestive of mild myositis. The osseous structures are grossly unremarkable. There is no evidence of bone marrow edema or cortical erosion in the left tibia and fibula. IMPRESSION: Findings suggestive of cellulitis and subcutaneous edema . Mild diffuse increased signal in the muscles suggestive of mild myositis. No evidence of osteomyelitis.
--- NOTE | 2018-09-01 14:22 | CP.PCM.PN ---
<Elise Schuster - Last Filed: 09/01/18 14:17> Subjective - Date & Time of Evaluation Date of Evaluation: 09/01/18 Time of Evaluation: 11:45 - Subjective Subjective: PGY-1 Medicine Progress Note for Dr. Hare's service Patient seen and examined at bedside. Patient reports decreased pain, swelling, and erythema from initial presentation. Patient ambulating without difficulty. Patient denies fevers, chills, cp, sob, n/v, constipation or diarrhea, dysuria. Objective - Vital Signs/Intake and Output Vital Signs (last 24 hours): Temp Pulse Resp BP Pulse Ox 98.2 F 98 H 18 113/79 100 09/01/18 08:04 09/01/18 10:00 09/01/18 08:04 09/01/18 08:04 09/01/18 08:04 Intake and Output: 09/01/18 09/01/18 06:59 18:59 Intake Total 120 Output Total 200 Balance -80 - Medications Medications: Current Medications Acetaminophen (Tylenol 325mg Tab) 650 mg PO Q6H PRN PRN Reason: Headache Last Admin: 08/31/18 04:14 Dose: 650 mg Folic Acid (Folic Acid) 1 mg PO DAILY [facility] Last Admin: 09/01/18 09:15 Dose: 1 mg Heparin Sodium (Porcine) (Heparin) 5,000 units SC Q8 [facility]; Protocol Last Admin: 09/01/18 13:27 Dose: 5,000 units Vancomycin HCl (Vancomycin 1gm) 1 gm in 250 mls @ 167 mls/hr IVPB Q12 [facility]; Protocol Last Admin: 09/01/18 09:17 Dose: 167 mls/hr Insulin Human Regular (Humulin R Low) 0 units SC ACHS [facility]; Protocol Last Admin: 09/01/18 11:34 Dose: Not Given Lorazepam (Ativan) 0.5 mg IVP Q1H PRN; Protocol PRN Reason: Symptoms of alcohol withdrawl Last Admin: 08/30/18 17:02 Dose: 0.5 mg Lorazepam (Ativan) 1 mg IVP BID [facility]; Protocol Last Admin: 09/01/18 09:14 Dose: 1 mg Multivitamins (Thera Tab) 1 tab PO 0800 [facility] Last Admin: 09/01/18 00:16 Dose: 1 tab Mupirocin (Bactroban Ointment) 0 gm TOP BID [facility] Last Admin: 09/01/18 09:15 Dose: 1 applic Thiamine HCl (Vitamin B1 Tab) 100 mg PO DAILY [facility] Last Admin: 09/01/18 09:17 Dose: 100 mg - Labs Labs: 09/01/18 06:15 09/01/18 09:00 - Constitutional Appears: Non-toxic, No Acute Distress - Head Exam Head Exam: NORMAL INSPECTION, NORMOCEPHALIC - Eye Exam Eye Exam: EOMI, Normal appearance. absent: Nystagmus, Scleral icterus - ENT Exam ENT Exam: Mucous Membranes Moist - Respiratory Exam Respiratory Exam: Clear to Ausculation Bilateral, NORMAL BREATHING PATTERN. absent: Rales, Rhonchi, Wheezes - Cardiovascular Exam Cardiovascular Exam: REGULAR RHYTHM, +S1, +S2. absent: Tachycardia - GI/Abdominal Exam GI & Abdominal Exam: Soft, Normal Bowel Sounds. absent: Firm, Guarding, Rigid, Tenderness - Extremities Exam Additional comments: multiple insect bites likely mosquitos; patient is homeless posterior ankle on left shows 2 healed lesions, malodorous, no oozing draining or pus noted. - Back Exam Back Exam: NORMAL INSPECTION - Neurological Exam Neurological Exam: Alert, Awake, Normal Gait, Oriented x3 - Psychiatric Exam Psychiatric exam: Normal Affect, Normal Mood - Skin Skin Exam: Intact, Normal Color Assessment and Plan - Assessment and Plan (Free Text) Assessment: Mr. Mccormick is a 48 yr old male with MH ETOH abuse, Liver cirrhosis and benign pancreatic tail lesion who resents to [facility] c/o 3-4 days of LLE pain, redness and swelling. Patient started on Vanc/Azithromycin. Cx positive for S. aureurs (MSSA); MRCP was done showing similar information from prior study except the lesion has grown in size. Plan: LLE cellulitis ID consulted- Dr. Abbott- recommendations as below Podiatry consulted- Dr. Crum- recs as below Surgery consulted- Dr. Le- recs as below Tibia/Fibula Xray- unremarkable Left Ankle Xray- normal left ankle radiographs Lower Extremity U/S- No DVT appreciated MRI left Lower extremity- no signs of osteo; findings suggestive of cellulitis and subq edema; mild myositis Cx positive for Staph aureus Vancomycin 1 gm q12 [facility] Bactroban ointment Pancreatic Tail Lesion 08-31-18 MRCP- increased size as compared to 2017; proteinaceous or postinflammatory, pseudocyst versus cystic or mucinous neoplasm Monitor outpatient ETOH abuse CIWA protocol Ativan 0.5g q1h prn Thiamine/Multivitamins, Folic acid Educate patient on cesation Hypokalemia KCl 40 meq oral KCl 10meq x I IVPB Repeat CMP in am Hypomagnesemia Mag ox 400 x 1 Repeat mag in am PPX DVT- SCD, Heparin 5000 units GI- not indicated at this time Patient seen and discussed with Dr. Hare PGY-1 Elise Schuster <Priyank Hare - Last Filed: 09/01/18 18:44> Objective - Vital Signs/Intake and Output Vital Signs (last 24 hours): Temp Pulse Resp BP Pulse Ox 98.2 F 94 H 18 115/82 99 09/01/18 16:26 09/01/18 18:00 09/01/18 16:26 09/01/18 16:26 09/01/18 16:26 Intake and Output: 09/01/18 09/01/18 06:59 18:59 Intake Total 120 2150 Output Total 200 Balance -80 2150 - Medications Medications: Current Medications Acetaminophen (Tylenol 325mg Tab) 650 mg PO Q6H PRN PRN Reason: Headache Last Admin: 08/31/18 04:14 Dose: 650 mg Folic Acid (Folic Acid) 1 mg PO DAILY [facility] Last Admin: 09/01/18 09:15 Dose: 1 mg Heparin Sodium (Porcine) (Heparin) 5,000 units SC Q8 [facility]; Protocol Last Admin: 09/01/18 13:27 Dose: 5,000 units Vancomycin HCl (Vancomycin 1gm) 1 gm in 250 mls @ 167 mls/hr IVPB Q12 [facility]; Protocol Last Admin: 09/01/18 09:17 Dose: 167 mls/hr Insulin Human Regular (Humulin R Low) 0 units SC ACHS [facility]; Protocol Last Admin: 09/01/18 16:24 Dose: Not Given Lorazepam (Ativan) 0.5 mg IVP Q1H PRN; Protocol PRN Reason: Symptoms of alcohol withdrawl Last Admin: 08/30/18 17:02 Dose: 0.5 mg Lorazepam (Ativan) 1 mg IVP BID [facility]; Protocol Last Admin: 09/01/18 09:14 Dose: 1 mg Multivitamins (Thera Tab) 1 tab PO 0800 [facility] Last Admin: 09/01/18 00:16 Dose: 1 tab Mupirocin (Bactroban Ointment) 0 gm TOP BID [facility] Last Admin: 09/01/18 17:26 Dose: 1 applic Thiamine HCl (Vitamin B1 Tab) 100 mg PO DAILY [facility] Last Admin: 09/01/18 09:17 Dose: 100 mg - Labs Labs: 09/01/18 06:15 09/01/18 09:00 Attending/Attestation - Attestation I have personally seen and examined this patient.: Yes I have fully participated in the care of the patient.: Yes I have reviewed all pertinent clinical information, including history, physical exam and plan: Yes Notes (Text): 09/01/18 18:38 Medical record note made by the resident after discussion with my direction and input after the patient was personally seen and examined by me. I have reviewed the chart and agree that the record accurately reflects by personal performance of the history, physical exam, data review, and medical decision-making, in the course for the patient. I have also personally directed the plan of care. 48 year old male with history of ETOH abuse, ,Alcoholic hepatitis, chronic pancreatitis with tail lesion , SP EUS/FNA by GI 2 times, last time was last month, both time biopsies were negative for malignancy .EUS showed abnormalities suggestive of chronic pancreatitis, was admitted with leg cellulitis which is improving. One blood culture bottle at the time of admission grew coagulase negative staph likely contaminated., repeat blood cultures are negative. Alcohol withdrawal are improving. Issue of ongoing alcohol abuse was discussed with him in detail. Prognosis is guarded due to ongoing alcohol abuse and non compliance.
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
[2018-09-01 16:26] VITALS: O2SAT 99
--- NOTE | 2018-09-01 23:34 | PN ---
DATE: 09/01/2018 SUBJECTIVE: The patient is in bed, in no acute distress, nontoxic. PHYSICAL EXAMINATION: VITAL SIGNS: Temperature is 98, blood pressure is 115/80, respiratory rate of 18, heart rate of 108. HEENT: Unremarkable. NECK: Supple. LUNGS: Decreased breath sounds. HEART: Normal S1, S2. ABDOMEN: Soft. LABORATORY EXAMINATION: Reveals white count of 8.3, hemoglobin of 12. Chemistries reveals the BUN of 7, creatinine of 0.6. Urinalysis is noted. Microbiology reveals the blood cultures coag-negative staph and there is staph aureus from the left ankle culture, which is pansensitive. The repeat blood cultures are negative. Review of orders reveals the patient is on vancomycin. The vancomycin trough level from today is 8.4. ASSESSMENT AND PLAN: A 48-year-old male with alcoholism, esophageal candidiasis, pancreatic tail lesion, left leg cellulitis, sensitive aureus, on vancomycin, coagulase-negative staphylococcus and contamination within inadequate level. The patient had an MRI of the lower extremity, which reveals no evidence of osteomyelitis. Today is day #5 of vancomycin for sensitive staph, we will follow closely with you. The patient also had an MRCP, increased size of the pancreatic tail mass as the impression as per GI. The patient with alcoholism and cirrhosis. Bill Mcnulty MD
[2018-09-02 06:28] LABS: BASO # 0.04 K/mm3 (0.0-2.0); BASO % 0.4 % (0.0-3.0); EOS # 0.1 (0.0-0.7); EOS % 1.5 % (1.5-5.0); GRAN # 4.53 (1.4-6.5); GRAN % 49.7 % (50.0-68.0); LYMPH # 3.5 (1.2-3.4); LYMPH % 38.7 % (22.0-35.0); MEAN CORPUSCULAR HEMOGLOBIN 35.8 pg (25.0-35.0); MEAN CORPUSCULAR HGB CONC 33.8 g/dl (31.0-37.0); MEAN PLATELET VOLUME 10.9 fl (7.0-11.0); MONO # 0.9 (0.1-0.6); MONO % 9.7 % (1.0-6.0); RBC 3.35 10^6/uL (3.5-6.1); RED CELL DISTRIBUTION WIDTH 13.4 % (11.5-14.5); WHITE BLOOD COUNT 9.1 10^3/ul (4.5-11.0)
[2018-09-02] MEDS: Insulin Reg-LOW-Coverage SC SCH ×2 (07:30→12:28)
[2018-09-02 07:32] VITALS: BP 120/81; RESP 20; TEMP 98.1
[2018-09-02 07:37] LABS: ALB/GLOB RATIO 0.8 (1.1-1.8); ALBUMIN 3.6 g/dL (3.0-4.8); ALT/SGPT 37 U/L (7-56); AST/SGOT 85 U/L (17-59); BLOOD UREA NITROGEN 10 mg/dL (7-21); CALCIUM 9.2 mg/dL (8.4-10.5); GFR NON-AFRICAN AMERICAN > 60
[2018-09-02] MEDS: Multivitamin Therapeutic Tab PO SCH (09:07)
[2018-09-02] MEDS: Mupirocin 2% Ointment 15 GM TUBE TOP SCH (09:13)
[2018-09-02] MEDS: Vancomycin 1gm in NS 250ml 1 GM/250 ML BAG IVPB SCH (09:14)
[2018-09-02] MEDS ORDERED: Magnesium Oxide 400 mg Tab UD PO STA (12:09)
[2018-09-02 12:37] VITALS: PULSE 105
--- NOTE | 2018-09-02 16:58 | CP.PCM.DIS ---
<Elise Schuster - Last Filed: 09/02/18 16:55> Provider - Provider Date of Admission: 08/28/18 09:23 Attending physician: Priyank Hare MD Primary care physician: Kalpesh Mortensen MD Consults: Dr. Mimi Gonzalez Time Spent in preparation of Discharge (in minutes): 45 Hospital Course - Lab Results Lab Results: Micro Results 08/28/18 08:20 Blood-Venous Blood Culture - Final NO GROWTH AFTER 5 DAYS 08/28/18 08:20 Blood-Venous Gram Stain - Final TEST NOT PERFORMED 08/30/18 22:50 Blood Blood Culture - Preliminary NO GROWTH AFTER 48 HOURS 08/30/18 22:25 Blood Blood Culture - Preliminary NO GROWTH AFTER 48 HOURS 08/28/18 07:42 Blood-Venous S.aureus & Coag-Neg Staph PNA FISH - Final 08/28/18 07:42 Blood-Venous Blood Culture - Final Coagulase Neg Staphylococcus 08/28/18 07:42 Blood-Venous Gram Stain - Final 08/28/18 14:55 Ankle - Left Gram Stain - Final 08/28/18 14:55 Ankle - Left Wound Culture - Final Staphylococcus Aureus Most Recent Lab Values WBC 9.1 10^3/ul (4.5-11.0) 09/02/18 06:00 RBC 3.35 10^6/uL (3.5-6.1) L 09/02/18 06:00 Hgb 12.0 g/dL (14.0-18.0) L 09/02/18 06:00 Hct 35.5 % (42.0-52.0) L 09/02/18 06:00 MCV 106.0 fl (80.0-105.0) H 09/02/18 06:00 MCH 35.8 pg (25.0-35.0) H 09/02/18 06:00 MCHC 33.8 g/dl (31.0-37.0) 09/02/18 06:00 RDW 13.4 % (11.5-14.5) 09/02/18 06:00 Plt Count 262 10^3/uL (120.0-450.0) 09/02/18 06:00 MPV 10.9 fl (7.0-11.0) 09/02/18 06:00 Gran % 49.7 % (50.0-68.0) L 09/02/18 06:00 Lymph % (Auto) 38.7 % (22.0-35.0) H 09/02/18 06:00 Hardy % (Auto) 9.7 % (1.0-6.0) H 09/02/18 06:00 Eos % (Auto) 1.5 % (1.5-5.0) 09/02/18 06:00 Baso % (Auto) 0.4 % (0.0-3.0) 09/02/18 06:00 Gran # 4.53 (1.4-6.5) 09/02/18 06:00 Lymph # (Auto) 3.5 (1.2-3.4) H 09/02/18 06:00 Hardy # (Auto) 0.9 (0.1-0.6) H 09/02/18 06:00 Eos # (Auto) 0.1 (0.0-0.7) 09/02/18 06:00 Baso # (Auto) 0.04 K/mm3 (0.0-2.0) 09/02/18 06:00 pO2 209 mm/Hg (30-55) H 08/28/18 11:15 VBG pH 7.50 (7.32-7.43) H 08/28/18 11:15 VBG pCO2 33.0 (40-60) L 08/28/18 11:15 VBG HCO3 25.7 mmol/l (21-28) 08/28/18 11:15 VBG Total CO2 26.7 mmol.L (22-28) 08/28/18 11:15 VBG O2 Sat (Calc) 99.9 % (40-65) H 08/28/18 11:15 VBG Base Excess 2.9 mmol/L (0.0-2.0) H 08/28/18 11:15 VBG Potassium 2.6 mmol/L (3.6-5.2) L 08/28/18 11:15 Sodium 139.0 mmol/L (132-148) 08/28/18 11:15 Chloride 109.0 mmol/L (98-107) H 08/28/18 11:15 Glucose 80 mg/dl (75-110) 08/28/18 11:15 Lactate 1.5 mmol/L (0.7-2.1) 08/28/18 11:15 FiO2 21.0 % 08/28/18 11:15 Sodium 134 mmol/L (132-148) 09/02/18 06:00 Potassium 4.3 mmol/L (3.6-5.0) 09/02/18 06:00 Chloride 104 mmol/L (98-107) 09/02/18 06:00 Carbon Dioxide 22 mmol/L (21-33) 09/02/18 06:00 Anion Gap 13 (10-20) 09/02/18 06:00 BUN 10 mg/dL (7-21) 09/02/18 06:00 Creatinine 0.6 mg/dl (0.8-1.5) L 09/02/18 06:00 Est GFR ( Amer) > 60 09/02/18 06:00 Est GFR (Non-Af Amer) > 60 09/02/18 06:00 POC Glucose (mg/dL) 108 mg/dL (65-110) 09/02/18 07:14 Random Glucose 111 mg/dL (70-110) H 09/02/18 06:00 Calcium 9.2 mg/dL (8.4-10.5) 09/02/18 06:00 Phosphorus 4.1 mg/dL (2.5-4.5) 09/02/18 06:00 Magnesium 1.6 mg/dL (1.7-2.2) L 09/02/18 06:00 Total Bilirubin 1.6 mg/dL (0.2-1.3) H 09/02/18 06:00 AST 85 U/L (17-59) H 09/02/18 06:00 ALT 37 U/L (7-56) 09/02/18 06:00 Alkaline Phosphatase 192 U/L (38-126) H 09/02/18 06:00 Total Protein 8.2 g/dL (5.8-8.3) 09/02/18 06:00 Albumin 3.6 g/dL (3.0-4.8) 09/02/18 06:00 Globulin 4.5 gm/dL 09/02/18 06:00 Albumin/Globulin Ratio 0.8 (1.1-1.8) L 09/02/18 06:00 Venous Blood Potassium 2.6 mmol/L (3.6-5.2) L 08/28/18 11:15 Vancomycin Trough 8.4 ug/mL (5.0-10.0) 09/01/18 09:00 Alcohol, Quantitative 77 mg/dL (0-10) H 08/28/18 06:56 - Hospital Course Hospital Course: Upon admission Mr. Mccormick is a 48 yr old male with MH ETOH abuse, Liver cirrhosis and benign pancreatic tail lesion who [place] [facility] c/o 3-4 days of LLE pain redness and swelling. He states that he originally developed a small abscess which he opened and drained himself. He states that the wound then reclosed and has become more painful with the redness now extending up to his mid calf almost to him knee. He states that he has been drinking lass ETOH than previously since his discharge on 08/18 and otherwise denies fevers, chills, n/v, CABRERA, CP, SOB, abdominal pain, dysuria, and stool changes. Hospital Course 48 year old male admitted for several days of LLE erythema, pain, and swelling. XR of the left ankle resulted WNL. XR of left tibia/fibula showed no signs of osteomyelitis. Lower extremity U/S resulted begin, with no DVT appreciated. Podiatry, Dr. Gonzalez, was consulted. Wound cultures were obtained, and ID, Dr. Abbott was consulted. He was started on Vancomycin and Zosyn in the ED. Podiatry recommended to continue with current treatment plan and wound care. ID recommended to continue to Vancomycin pending cultures. Blood culture resulted coagulase negative staphylococcus. Wound culture resulted Staph aureus. Repeat blood cultures pending. MRI resulted findings suggestive of cellulitis and subcutaneous edema, mild diffuse increased signal in the muscles suggestive of mild myositis, no evidence of osteomyelitis. Also, elevated LFTs were appreciated. Due to history of pancreatic tail lesion MRCP with/without contrast was obtained and resulted increased size and pancreatic tail mass compared to 10/25/2017; could not assess for gadolinium enhancement at the time; proteinaceous or post-inflammatory cyst/pseudocyst versus cystic or mucinous neoplasm; 9mm right upper pole renal cyst unchanged; mild dilation of common bile duct. Patient was counseled on MRCP findings, and recommended to f/u outpatient. Surgery was consulted to r/o abscess. Surgery recommended to continue with current treatment regimen of abx, surgical intervention not indicated. Transaminitis noted on labs, secondary to alcohol abuse. Patient was given banana bag on admission for alcohol abuse, continued with CIWA protocol, thiamine/multivitamins, and Ativan taper. Counseled on alcohol cessation. Patient developed hypokalemia and hypomagnesemia, both which resolved with repletion. Patient was recommended to continue Keflex for 5 days outpatient. Patient medically cleared to be discharged. Discharge plan Patient is stable for discharge to home as per Dr. Hare. He was counseled to return to the emergency department if symptoms return or worsen. Patient is to follow up with [facility] within 3-5 days of discharge. Patient counseled on alcohol cessation. Patient is to begin Keflex as prescribed and instructed. Counseled on side effects of medication. Counseled on keeping wound clean and dry. Patient is to continue home medications as prescribed and instructed in discharge instructions. Reviewed all medications with patient, and he understands instructions. Patient understands and agrees with discharge plan. Discharge Exam - Head Exam Head Exam: ATRAUMATIC, NORMOCEPHALIC - Eye Exam Eye Exam: EOMI, Normal appearance. absent: Nystagmus, Scleral icterus - Respiratory Exam Respiratory Exam: NORMAL BREATHING PATTERN. absent: Rhonchi, Wheezes, Respiratory Distress, Stridor - Cardiovascular Exam Cardiovascular Exam: REGULAR RHYTHM, +S1, +S2. absent: Tachycardia - GI/Abdominal Exam GI & Abdominal Exam: Normal Bowel Sounds, Soft. absent: Distended, Firm, Guarding, Tenderness - Extremities Exam Additional comments: on posterior left ankle; healed lesion, no oozing draining or pus noted - Neurological Exam Neurological exam: Alert, Oriented x3 - Psychiatric Exam Psychiatric exam: Normal Affect, Normal Mood - Skin Skin Exam: Intact, Normal Color Discharge Plan - Discharge Medications Prescriptions: Cephalexin [Keflex] 500 mg PO BID #10 capsule RX: Folic Acid 1 mg PO DAILY #14 tab RX: Multivitamin Therapeutic Tab [Thera Tab] 1 tab PO 0800 #14 tab RX: Thiamine [Vitamin B1 Tab] 100 mg PO DAILY #14 tab - Follow Up Plan Condition: STABLE Disposition: HOME/ ROUTINE Instructions: Cellulitis (Skin Infection), Adult (DC) Additional Instructions: 1. Patient is stable for discharge as per Dr. Hare 2. Patient should followup with [facility] within 3-5 days of discharge from hospital. 3. Patient will resume all home medications as no adjustments were made. Patient will be prescribed Keflex 500mg by mouth twice a day for the next 5 days. Patient will also be given Thiamine, Multivitamins, and Folic acid to be taken for the following 2 weeks as prescribed. 4. Patient should return to the hospital if symptoms worsen or recur. 5. Patient understands the plan as above and agrees. Referrals: [facility] [Provider Group] Kalpesh Mortensen MD [Primary Care Provider] - <Priyank Hare - Last Filed: 09/03/18 08:58> Provider - Provider Date of Admission: 08/28/18 09:23 Attending physician: Priyank Hare MD Primary care physician: Kalpesh Mortensen MD Hospital Course - Lab Results Lab Results: Micro Results 08/30/18 22:50 Blood Blood Culture - Preliminary NO GROWTH AFTER 3 DAYS 08/30/18 22:25 Blood Blood Culture - Preliminary NO GROWTH AFTER 3 DAYS 08/28/18 08:20 Blood-Venous Blood Culture - Final NO GROWTH AFTER 5 DAYS 08/28/18 08:20 Blood-Venous Gram Stain - Final TEST NOT PERFORMED 08/28/18 07:42 Blood-Venous S.aureus & Coag-Neg Staph PNA FISH - Final 08/28/18 07:42 Blood-Venous Blood Culture - Final Coagulase Neg Staphylococcus 08/28/18 07:42 Blood-Venous Gram Stain - Final 08/28/18 14:55 Ankle - Left Gram Stain - Final 08/28/18 14:55 Ankle - Left Wound Culture - Final Staphylococcus Aureus Most Recent Lab Values WBC 9.1 10^3/ul (4.5-11.0) 09/02/18 06:00 RBC 3.35 10^6/uL (3.5-6.1) L 09/02/18 06:00 Hgb 12.0 g/dL (14.0-18.0) L 09/02/18 06:00 Hct 35.5 % (42.0-52.0) L 09/02/18 06:00 MCV 106.0 fl (80.0-105.0) H 09/02/18 06:00 MCH 35.8 pg (25.0-35.0) H 09/02/18 06:00 MCHC 33.8 g/dl (31.0-37.0) 09/02/18 06:00 RDW 13.4 % (11.5-14.5) 09/02/18 06:00 Plt Count 262 10^3/uL (120.0-450.0) 09/02/18 06:00 MPV 10.9 fl (7.0-11.0) 09/02/18 06:00 Gran % 49.7 % (50.0-68.0) L 09/02/18 06:00 Lymph % (Auto) 38.7 % (22.0-35.0) H 09/02/18 06:00 Hardy % (Auto) 9.7 % (1.0-6.0) H 09/02/18 06:00 Eos % (Auto) 1.5 % (1.5-5.0) 09/02/18 06:00 Baso % (Auto) 0.4 % (0.0-3.0) 09/02/18 06:00 Gran # 4.53 (1.4-6.5) 09/02/18 06:00 Lymph # (Auto) 3.5 (1.2-3.4) H 09/02/18 06:00 Hardy # (Auto) 0.9 (0.1-0.6) H 09/02/18 06:00 Eos # (Auto) 0.1 (0.0-0.7) 09/02/18 06:00 Baso # (Auto) 0.04 K/mm3 (0.0-2.0) 09/02/18 06:00 pO2 209 mm/Hg (30-55) H 08/28/18 11:15 VBG pH 7.50 (7.32-7.43) H 08/28/18 11:15 VBG pCO2 33.0 (40-60) L 08/28/18 11:15 VBG HCO3 25.7 mmol/l (21-28) 08/28/18 11:15 VBG Total CO2 26.7 mmol.L (22-28) 08/28/18 11:15 VBG O2 Sat (Calc) 99.9 % (40-65) H 08/28/18 11:15 VBG Base Excess 2.9 mmol/L (0.0-2.0) H 08/28/18 11:15 VBG Potassium 2.6 mmol/L (3.6-5.2) L 08/28/18 11:15 Sodium 139.0 mmol/L (132-148) 08/28/18 11:15 Chloride 109.0 mmol/L (98-107) H 08/28/18 11:15 Glucose 80 mg/dl (75-110) 08/28/18 11:15 Lactate 1.5 mmol/L (0.7-2.1) 08/28/18 11:15 FiO2 21.0 % 08/28/18 11:15 Sodium 134 mmol/L (132-148) 09/02/18 06:00 Potassium 4.3 mmol/L (3.6-5.0) 09/02/18 06:00 Chloride 104 mmol/L (98-107) 09/02/18 06:00 Carbon Dioxide 22 mmol/L (21-33) 09/02/18 06:00 Anion Gap 13 (10-20) 09/02/18 06:00 BUN 10 mg/dL (7-21) 09/02/18 06:00 Creatinine 0.6 mg/dl (0.8-1.5) L 09/02/18 06:00 Est GFR ( Amer) > 60 09/02/18 06:00 Est GFR (Non-Af Amer) > 60 09/02/18 06:00 POC Glucose (mg/dL) 108 mg/dL (65-110) 09/02/18 07:14 Random Glucose 111 mg/dL (70-110) H 09/02/18 06:00 Calcium 9.2 mg/dL (8.4-10.5) 09/02/18 06:00 Phosphorus 4.1 mg/dL (2.5-4.5) 09/02/18 06:00 Magnesium 1.6 mg/dL (1.7-2.2) L 09/02/18 06:00 Total Bilirubin 1.6 mg/dL (0.2-1.3) H 09/02/18 06:00 AST 85 U/L (17-59) H 09/02/18 06:00 ALT 37 U/L (7-56) 09/02/18 06:00 Alkaline Phosphatase 192 U/L (38-126) H 09/02/18 06:00 Total Protein 8.2 g/dL (5.8-8.3) 09/02/18 06:00 Albumin 3.6 g/dL (3.0-4.8) 09/02/18 06:00 Globulin 4.5 gm/dL 09/02/18 06:00 Albumin/Globulin Ratio 0.8 (1.1-1.8) L 09/02/18 06:00 Venous Blood Potassium 2.6 mmol/L (3.6-5.2) L 08/28/18 11:15 Vancomycin Trough 8.4 ug/mL (5.0-10.0) 09/01/18 09:00 Alcohol, Quantitative 77 mg/dL (0-10) H 08/28/18 06:56 Attending/Attestation - Attestation I have personally seen and examined this patient.: Yes I have fully participated in the care of the patient.: Yes I have reviewed all pertinent clinical information, including history, physical exam and plan: Yes Notes (Text): 09/03/18 08:56 Medical record note made by the resident after discussion with my direction and input after the patient was personally seen and examined by me. I have reviewed the chart and agree that the record accurately reflects by personal performance of the history, physical exam, data review, and medical decision-making, in the course for the patient. I have also personally directed the plan of care. 48 year old male with history of ETOH abuse, ,Alcoholic hepatitis, chronic pancreatitis with tail lesion , SP EUS/FNA by GI 2 times, last time was last month, both time biopsies were negative for malignancy .EUS showed abnormalities suggestive of chronic watson creatitis, was admitted with leg cellulitis which is improving. One blood culture bottle at the time of admission grew coagulase negative staph likely contaminated., repeat blood cultures are negative.Patient is afebrile and is ambulatory.He will be started on oral antibiotics and will be discharged home. Alcohol withdrawal are improving. Issue of ongoing alcohol abuse was discussed with him in detail. Issue of compliance with medication was discussed in detail. Prognosis is guarded due to ongoing alcohol abuse and non compliance.
--- NOTE | 2018-09-03 01:09 | PN ---
DATE: 09/02/2018 SUBJECTIVE: Patient is in bed, in no acute distress, nontoxic. No fevers, no chills. PHYSICAL EXAMINATION: VITAL SIGNS: Temperature 98, blood pressure is 120/70, respiratory rate is 16. HEENT: Unremarkable. NECK: Supple. LUNGS: Decreased breath sounds. HEART: Normal S1, S2. ABDOMEN: Soft, nontender. LABORATORY DATA: Laboratory examination reveals white count of 9. Hemoglobin is noted. Chemistries are noted. The ankle is noted with Staph aureus. ASSESSMENT AND PLAN: A 48-year-old male who was seen earlier today with alcoholism, esophageal candidiasis, pancreatic tail lesion, left leg cellulitis with sensitive staphylococcus, on vancomycin. Patient with alcoholism, cirrhosis, and pancreatic tail . The patient had an MRI with no evidence of osteomyelitis. Complete short course of antibiotics. Bill Mcnulty MD
== END 2018-09-02 12:46 | disposition home or self-care (01) | DRG 277 ==
LOC: ED 06:08 → ERH 09:23 → 3RNO 15:55
PROVIDERS: ADMIT Internal Medicine Cardiovascular Disease; ATTEND Internal Medicine
DX: L03.116 Cellulitis of left lower limb (principal); F10.239 Alcohol dependence with withdrawal, unspecified; K70.30 Alcoholic cirrhosis of liver without ascites; E87.6 Hypokalemia; E83.42 Hypomagnesemia; E11.9 Type 2 diabetes mellitus without complications; I10 Essential (primary) hypertension; K86.1 Other chronic pancreatitis; B95.61 Methicillin susceptible Staphylococcus aureus infection as the cause of diseases classified elsewhere; K21.9 Gastro-esophageal reflux disease without esophagitis; Y90.3 Blood alcohol level of 60-79 mg/100 ml; Z59.0 Homelessness; Z87.891 Personal history of nicotine dependence

== ENCOUNTER 2018-10-03 20:09 | Emergency (ER) | payer MEDICAID ==
[2018-10-03 20:10] VITALS: BMI 24.7
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
[2018-10-03 21:24] VITALS: BP 131/71; PULSE 79; RESP 16; TEMP 98.2; O2SAT 100
== END 2018-10-03 22:05 | disposition left against medical advice (07) ==
LOC: ED 20:09
DX: Z59.0 Homelessness (principal); F17.210 Nicotine dependence, cigarettes, uncomplicated; I10 Essential (primary) hypertension; E11.9 Type 2 diabetes mellitus without complications; J44.9 Chronic obstructive pulmonary disease, unspecified

== ENCOUNTER 2018-10-10 19:04 | Emergency (ER) | payer MEDICAID ==
[2018-10-10 19:05] VITALS: BMI 23.4
[2018-10-10 19:23] VITALS: RESP 18; TEMP 98.2
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
[2018-10-11 04:50] VITALS: O2SAT 100
[2018-10-11 06:35] VITALS: BP 112/78; PULSE 88
== END 2018-10-11 06:00 | disposition home or self-care (01) ==
LOC: ED 19:04
DX: F10.10 Alcohol abuse, uncomplicated (principal)

== ENCOUNTER 2018-10-15 21:04 | Emergency (ER) | payer MEDICAID ==
[2018-10-15 21:05] VITALS: BMI 23.4
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
[2018-10-15 21:42] VITALS: RESP 18; TEMP 98.8
[2018-10-15 22:30] VITALS: BP 141/86; PULSE 100; O2SAT 100
== END 2018-10-15 22:00 ==
LOC: ED 21:04
DX: Z02.89 Encounter for other administrative examinations (principal)

== ENCOUNTER 2019-01-08 18:01 | Inpatient (IN) | payer MEDICAID, OTHER ==
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
[2019-01-08 18:18] VITALS: BMI 29.2
[2019-01-08] MEDS ORDERED: Sodium Chloride 0.9% 1,000 ML IV STA ×2 (18:33→19:08)
[2019-01-08 18:57] LABS: BASO # 0.07 K/mm3 (0.0-2.0); BASO % 0.6 % (0.0-3.0); EOS # 0.1 (0.0-0.7); EOS % 0.7 % (1.5-5.0); HEMOGLOBIN 14.2 g/dL (14.0-18.0); LYMPH # 4.5 (1.2-3.4); LYMPH % 38.9 % (22.0-35.0); MEAN CORPUSCULAR HEMOGLOBIN 32.3 pg (25.0-35.0); MEAN CORPUSCULAR HGB CONC 34.1 g/dl (31.0-37.0); MEAN PLATELET VOLUME 11.7 fl (7.0-11.0); MONO # 0.7 (0.1-0.6); MONO % 6.4 % (1.0-6.0); RBC 4.39 10^6/uL (3.5-6.1); WHITE BLOOD COUNT 11.5 10^3/uL (4.5-11.0)
[2019-01-08 19:05] LABS: VENOUS BLOOD GAS BASE EXCESS -3.6 mmol/L (0.0-2.0); VENOUS BLOOD GAS PO2 254 mm/Hg (30-55); VENOUS BLOOD PH 7.36 (7.32-7.43)
[2019-01-08 19:08] LABS: ALB/GLOB RATIO 1.2 (1.1-1.8); ALBUMIN 4.8 g/dL (3.0-4.8); ALT/SGPT 108 U/L (7-56); AST/SGOT 88 U/L (17-59); BLOOD UREA NITROGEN 10 mg/dL (7-21); CALCIUM 9.9 mg/dL (8.4-10.5); GFR NON-AFRICAN AMERICAN > 60
[2019-01-08 19:09] LABS: ACETAMINOPHEN < 10.0 ug/ml (10.0-20.0); SALICYLATE < 1 mg/dL (2.0-20.0)
[2019-01-08 20:36] LABS: URINE BILIRUBIN NEGATIVE (NEGATIVE); URINE BLOOD NEGATIVE (NEGATIVE); URINE GLUCOSE (UA) NEGATIVE (NEGATIVE); URINE LEUKOCYTE ESTERASE NEGATIVE Leu/uL (NEGATIVE); URINE PROTEIN NEGATIVE mg/dL (<30 mg/dL); URINE UROBILINOGEN 0.2 E.U./dL (<1 E.U./dL)
[2019-01-08 20:37] LABS: URINE APPEARANCE CLEAR (CLEAR); URINE COLOR LIGHT YELLOW (YELLOW)
[2019-01-08 20:51] LABS: BARBITURATES, UR NEGATIVE (NEGATIVE); BENZODIAZEPINES, UR POSITIVE (NEGATIVE); OPIATES, UR NEGATIVE (NEGATIVE); PHENCYCLIDINE, UR NEGATIVE (NEGATIVE)
[2019-01-08] MEDS ORDERED: Multivitamin (MVI) 10 ML, Thiamine 100 MG, Folic Acid 1 MG in Sodium Chloride 0.9% 1,00... IV ONE (22:09)
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
[2019-01-09 00:57] LABS: VENOUS BLOOD GAS BASE EXCESS -2.9 mmol/L (0.0-2.0); VENOUS BLOOD GAS PO2 156 mm/Hg (30-55); VENOUS BLOOD PH 7.27 (7.32-7.43)
[2019-01-09 04:04] LABS: BASO # 0.02 K/mm3 (0.0-2.0); BASO % 0.3 % (0.0-3.0); EOS # 0.1 (0.0-0.7); EOS % 2.3 % (1.5-5.0); HEMOGLOBIN 12.9 g/dL (14.0-18.0); LYMPH # 3.1 (1.2-3.4); LYMPH % 50.8 % (22.0-35.0); MEAN CELL VOLUME 96.3 fl (80.0-105.0); MEAN CORPUSCULAR HEMOGLOBIN 31.9 pg (25.0-35.0); MEAN CORPUSCULAR HGB CONC 33.1 g/dl (31.0-37.0); MEAN PLATELET VOLUME 10.7 fl (7.0-11.0); MONO # 0.4 (0.1-0.6); MONO % 5.9 % (1.0-6.0); RBC 4.05 10^6/uL (3.5-6.1); RED CELL DISTRIBUTION WIDTH 13.3 % (11.5-14.5); WHITE BLOOD COUNT 6.1 10^3/uL (4.5-11.0)
[2019-01-09 04:14] LABS: VENOUS BLOOD GAS BASE EXCESS -3.4 mmol/L (0.0-2.0); VENOUS BLOOD GAS PO2 132 mm/Hg (30-55); VENOUS BLOOD PH 7.29 (7.32-7.43)
[2019-01-09 05:47] LABS: ALBUMIN 3.6 g/dL (3.0-4.8); ALT/SGPT 78 U/L (7-56); AST/SGOT 64 U/L (17-59); BLOOD UREA NITROGEN 7 mg/dL (7-21); CALCIUM 8.2 mg/dL (8.4-10.5); GFR NON-AFRICAN AMERICAN > 60
[2019-01-09] MEDS: Multivitamin With Minerals Tab PO SCH ×2 (08:05→14:02)
--- NOTE | 2019-01-09 09:22 | CARD ---
APPROVED REPORT Date of service: 01/08/2019 EKG Measurement Heart [id number] <Conclusion> Sinus rhythm with 1st degree AV block Otherwise normal ECG
--- NOTE | 2019-01-09 09:30 | RAD ---
Date of service: 01/08/2019 HISTORY: SOB COMPARISON: 08/09/2018 FINDINGS: LUNGS: No active pulmonary disease. PLEURA: No significant pleural effusion identified, no pneumothorax apparent. CARDIOVASCULAR: No aortic atherosclerotic calcification present. Normal cardiac size. No pulmonary vascular congestion. OSSEOUS STRUCTURES: No significant abnormalities. VISUALIZED UPPER ABDOMEN: Normal. OTHER FINDINGS: None. IMPRESSION: No active disease.
[2019-01-09] MEDS ORDERED: Enoxaparin 40 mg Syringe SC SCH (10:00)
--- NOTE | 2019-01-09 10:12 | CT ---
Date of service: 01/09/2019 PROCEDURE: CT HEAD WITHOUT CONTRAST. HISTORY: headache COMPARISON: None available. TECHNIQUE: Axial computed tomography images were obtained through the head/brain without intravenous contrast. Radiation dose: Total exam DLP = 787.33 mGy-cm. This CT exam was performed using one or more of the following dose reduction techniques: Automated exposure control, adjustment of the mA and/or kV according to patient size, and/or use of iterative reconstruction technique. FINDINGS: HEMORRHAGE: No intracranial hemorrhage. BRAIN: No mass effect or edema. No atrophy or chronic microvascular ischemic changes. VENTRICLES: Unremarkable. No hydrocephalus. CALVARIUM: Unremarkable. PARANASAL SINUSES: Unremarkable as visualized. No significant inflammatory changes. MASTOID AIR CELLS: Unremarkable as visualized. No inflammatory changes. OTHER FINDINGS: None. IMPRESSION: Normal CT of the Head.
[2019-01-09] MEDS: Sodium Chloride 0.9% 1,000 ML IV SCH (10:36)
[2019-01-09] MEDS ORDERED: Potassium Chloride 20 mEq ER Tab PO STA (20:33)
[2019-01-09] MEDS ORDERED: Magnesium Sulfate 2 gm/50 ml 2 GM/50 ML BAG IVPB ONE (20:34)
[2019-01-10] MEDS: Sodium Chloride 0.9% 1,000 ML IV SCH (05:26)
[2019-01-10 06:46] VITALS: BP 131/92; PULSE 84; RESP 20; TEMP 98.5; O2SAT 96
[2019-01-10 07:27] LABS: BASO # 0.03 K/mm3 (0.0-2.0); BASO % 0.4 % (0.0-3.0); EOS # 0.3 (0.0-0.7); EOS % 3.9 % (1.5-5.0); HEMOGLOBIN 12.7 g/dL (14.0-18.0); LYMPH % 29.3 % (22.0-35.0); MEAN CELL VOLUME 96.5 fl (80.0-105.0); MEAN CORPUSCULAR HEMOGLOBIN 31.4 pg (25.0-35.0); MEAN CORPUSCULAR HGB CONC 32.5 g/dl (31.0-37.0); MEAN PLATELET VOLUME 11.5 fl (7.0-11.0); MONO # 0.7 (0.1-0.6); MONO % 10.7 % (1.0-6.0); RBC 4.05 10^6/uL (3.5-6.1); WHITE BLOOD COUNT 6.9 10^3/uL (4.5-11.0)
[2019-01-10 07:31] LABS: ALBUMIN 3.9 g/dL (3.0-4.8); ALT/SGPT 80 U/L (7-56); AST/SGOT 69 U/L (17-59); BLOOD UREA NITROGEN 10 mg/dL (7-21); CALCIUM 9.4 mg/dL (8.4-10.5); GFR NON-AFRICAN AMERICAN > 60
--- NOTE | 2019-01-10 14:18 | CP.PCM.DIS ---
<Po Arauz - Last Filed: 01/10/19 14:19> Provider - Provider Date of Admission: 01/09/19 16:37 Attending physician: Samy Chowdhury MD Primary care physician: Patient offered to be set up with primary care physician, patient refused. Consults: 01/09/19 02:35 Social Work Referral Routine Comment: protocol Physician Instructions: Reason For Exam: baylock risk score >7 Time Spent in preparation of Discharge (in minutes): 35 Diagnosis - Discharge Diagnosis (1) Alcohol dependence Status: Chronic (2) Alcohol intoxication Status: Resolved Priority: Medium Hospital Course - Lab Results Lab Results: Micro Results 01/08/19 20:00 Blood Blood Culture - Preliminary NO GROWTH AFTER 24 HOURS 01/08/19 19:30 Blood Blood Culture - Preliminary NO GROWTH AFTER 24 HOURS Most Recent Lab Values WBC 6.9 10^3/uL (4.5-11.0) 01/10/19 06:00 RBC 4.05 10^6/uL (3.5-6.1) 01/10/19 06:00 Hgb 12.7 g/dL (14.0-18.0) L 01/10/19 06:00 Hct 39.1 % (42.0-52.0) L 01/10/19 06:00 MCV 96.5 fl (80.0-105.0) 01/10/19 06:00 MCH 31.4 pg (25.0-35.0) 01/10/19 06:00 MCHC 32.5 g/dl (31.0-37.0) 01/10/19 06:00 RDW 13.0 % (11.5-14.5) 01/10/19 06:00 Plt Count 178 10^3/uL (120.0-450.0) 01/10/19 06:00 MPV 11.5 fl (7.0-11.0) H 01/10/19 06:00 Neut % (Auto) 55.7 % (50.0-68.0) 01/10/19 06:00 Lymph % (Auto) 29.3 % (22.0-35.0) 01/10/19 06:00 [place] % (Auto) 10.7 % (1.0-6.0) H 01/10/19 06:00 Eos % (Auto) 3.9 % (1.5-5.0) 01/10/19 06:00 Baso % (Auto) 0.4 % (0.0-3.0) 01/10/19 06:00 Lymph # (Auto) 2.0 (1.2-3.4) 01/10/19 06:00 [place] # (Auto) 0.7 (0.1-0.6) H 01/10/19 06:00 Eos # (Auto) 0.3 (0.0-0.7) 01/10/19 06:00 Baso # (Auto) 0.03 K/mm3 (0.0-2.0) 01/10/19 06:00 Absolute Neuts (auto) 3.86 (1.4-6.5) 01/10/19 06:00 pO2 132 mm/Hg (30-55) H 01/09/19 03:48 VBG pH 7.29 (7.32-7.43) L 01/09/19 03:48 VBG pCO2 49.0 (40-60) 01/09/19 03:48 VBG HCO3 23.6 mmol/l (21-28) 01/09/19 03:48 VBG Total CO2 25.1 mmol.L (22-28) 01/09/19 03:48 VBG O2 Sat (Calc) 100.6 % (40-65) H 01/09/19 03:48 VBG Base Excess -3.4 mmol/L (0.0-2.0) L 01/09/19 03:48 VBG Potassium 3.2 mmol/L (3.6-5.2) L 01/09/19 03:48 Sodium 142.0 mmol/L (132-148) 01/09/19 03:48 Chloride 110.0 mmol/L (98-107) H 01/09/19 03:48 Glucose 98 mg/dl (75-110) 01/09/19 03:48 Lactate 1.8 mmol/L (0.7-2.1) 01/09/19 03:48 FiO2 21.0 % 01/09/19 03:48 Crit Value Called To Doug leyva rn ed 01/08/19 23:30 Crit Value Called By Nina 01/08/19 23:30 Blood Gas Notified Time 51 02/21/19 23:30 Sodium 138 mmol/L (132-148) 01/10/19 06:00 Potassium 3.7 mmol/L (3.6-5.0) 01/10/19 06:00 Chloride 105 mmol/L (98-107) 01/10/19 06:00 Carbon Dioxide 26 mmol/L (21-33) 01/10/19 06:00 Anion Gap 12 (10-20) 01/10/19 06:00 BUN 10 mg/dL (7-21) 01/10/19 06:00 Creatinine 0.5 mg/dl (0.8-1.5) L 01/10/19 06:00 Est GFR ( Amer) > 60 01/10/19 06:00 Est GFR (Non-Af Amer) > 60 01/10/19 06:00 POC Glucose (mg/dL) 135 mg/dL (65-110) H 01/09/19 00:18 Random Glucose 91 mg/dL (70-110) 01/10/19 06:00 Calcium 9.4 mg/dL (8.4-10.5) 01/10/19 06:00 Phosphorus 5.0 mg/dL (2.5-4.5) H 01/09/19 03:48 Magnesium 1.6 mg/dL (1.7-2.2) L 01/09/19 03:48 Total Bilirubin 0.8 mg/dL (0.2-1.3) 01/10/19 06:00 AST 69 U/L (17-59) H 01/10/19 06:00 ALT 80 U/L (7-56) H 01/10/19 06:00 Alkaline Phosphatase 219 U/L (38-126) H D 01/10/19 06:00 Ammonia 20 umol/L (9-33) 01/08/19 19:33 Total Creatine Kinase 114 U/L (35-230) 01/08/19 18:54 Total Protein 7.7 g/dL (5.8-8.3) 01/10/19 06:00 Albumin 3.9 g/dL (3.0-4.8) 01/10/19 06:00 Globulin 3.8 gm/dL 01/10/19 06:00 Albumin/Globulin Ratio 1.0 (1.1-1.8) L 01/10/19 06:00 Venous Blood Potassium 3.2 mmol/L (3.6-5.2) L 01/09/19 03:48 Urine Color Light yellow (YELLOW) 01/08/19 20:21 Urine Appearance Clear (CLEAR) 01/08/19 20:21 Urine pH 6.0 (4.7-8.0) 01/08/19 20:21 Ur Specific [place] 1.015 (1.005-1.035) 01/08/19 20:21 Urine Protein Negative mg/dL (<30 mg/dL) 01/08/19 20:21 Urine Glucose (UA) Negative mg/dL (NEGATIVE) 01/08/19 20:21 Urine Ketones Negative mg/dL (NEGATIVE) 01/08/19 20:21 Urine Blood Negative (NEGATIVE) 01/08/19 20:21 Urine Nitrate Negative (NEGATIVE) 01/08/19 20:21 Urine Bilirubin Negative (NEGATIVE) 01/08/19 20:21 Urine Urobilinogen 0.2 E.U./dL (<1 E.U./dL) 01/08/19 20:21 Ur Leukocyte Esterase Negative Ty/uL (NEGATIVE) 01/08/19 20:21 Salicylates < 1 mg/dL (2.0-20.0) L 01/08/19 18:54 Urine Opiates Screen Negative (NEGATIVE) 01/08/19 20:21 Urine Methadone Screen Negative (NEGATIVE) 01/08/19 20:21 Acetaminophen < 10.0 ug/ml (10.0-20.0) L 01/08/19 18:54 Ur Barbiturates Screen Negative (NEGATIVE) 01/08/19 20:21 Ur Phencyclidine Scrn Negative (NEGATIVE) 01/08/19 20:21 Ur Amphetamines Screen Negative (NEGATIVE) 01/08/19 20:21 U Benzodiazepines Scrn Positive (NEGATIVE) H 01/08/19 20:21 U Oth Cocaine Metabols Negative (NEGATIVE) 01/08/19 20:21 U Cannabinoids Screen Negative (NEGATIVE) 01/08/19 20:21 Alcohol, Quantitative 392 mg/dL (0-10) H* 01/08/19 18:54 - Hospital Course Hospital Course: Po Arauz DO, PGY-1 Hospitalist Discharge Summary for Dr. Chowdhury Prior to admission: Patient is a 48 year old male with PMH of chronic alcohol abuse and liver cirrhosis who presented to [facility] with alcohol intoxication. History was obtained from prior records and staff as patient was intoxicated on admission. Patient was found to have unsteady gait and rapid response was called. Patient presents frequently to [facility] for alcohol intoxication and management of alcohol withdrawal. Hospitalization course: Patient was placed on CIWA and was managed with scheduled and PRN ativan. CIWA scores down trended to 0 this AM. Patient was observed walking without assistance. Information on AA program at hospital was offered but patient refused. Information on [facility] was offered but patient refused. Discharge plan was discussed with patient, all questions were answered. Patient seen, examined, and discharge plan discussed with my attending Dr. Luciana Arauz D.O. IM Resident PGY-1 Discharge Exam - Head Exam Head Exam: ATRAUMATIC, NORMOCEPHALIC - Eye Exam Eye Exam: EOMI, PERRL - ENT Exam ENT Exam: Mucous Membranes Moist - Neck Exam Neck exam: Full Rom, Normal Inspection - Respiratory Exam Respiratory Exam: Clear to PA & Lateral, NORMAL BREATHING PATTERN, UNREMARKABLE. absent: Rales, Rhonchi, Wheezes - Cardiovascular Exam Cardiovascular Exam: REGULAR RHYTHM, RRR, +S1, +S2. absent: Diastolic murmur, Gallop, Rubs, Systolic Murmur - GI/Abdominal Exam GI & Abdominal Exam: Normal Bowel Sounds, Soft, Unremarkable. absent: Tenderness - Extremities Exam Extremities exam: full ROM, normal inspection - Back Exam Back exam: NORMAL INSPECTION - Neurological Exam Neurological exam: Alert, Oriented x3 - Psychiatric Exam Psychiatric exam: Normal Affect, Normal Mood - Skin Skin Exam: Dry, Intact, Warm Discharge Plan - Discharge Medications Prescriptions: Folic Acid 1 mg PO DAILY #30 tab Multimineral/Multivitamin [Therapeutic-M Tab] 1 tab PO 0800 #30 tab Thiamine [Vitamin B1 Tab] 50 mg PO DAILY #30 tab - Follow Up Plan Condition: GOOD Disposition: HOME/ ROUTINE Instructions: Drug Abuse and Drug Addiction (DC), Alcohol Withdrawal (DC), Alcohol Abuse and Alcoholism (DC), Effects of Alcohol on Your Health, Drug Abuse Treatment, Alcohol Poisoning (DC), Alcohol Use Disorder (DC) Additional Instructions: Please follow up with the [facility] downstairs here at [facility] within 2 weeks of your discharge. We have given you information on the Alcoholics Anonymous group that meets here at the hospital. Please consider a program like AA to help you control your drinking. We have given you additional information on alcohol use disorder in your discharge paperwork. If your symptoms return or worsen, please present to nearest emergency department. <Samy Chowdhury - Last Filed: 01/11/19 12:21> Provider - Provider Date of Admission: 01/09/19 16:37 Attending physician: Samy Chowdhury MD Consults: 01/09/19 02:35 Social Work Referral Routine Comment: protocol Physician Instructions: Reason For Exam: baylock risk score >7 Hospital Course - Lab Results Lab Results: Micro Results 01/08/19 20:00 Blood Blood Culture - Preliminary NO GROWTH AFTER 48 HOURS 01/08/19 19:30 Blood Blood Culture - Preliminary NO GROWTH AFTER 48 HOURS Most Recent Lab Values WBC 6.9 10^3/uL (4.5-11.0) 01/10/19 06:00 RBC 4.05 10^6/uL (3.5-6.1) 01/10/19 06:00 Hgb 12.7 g/dL (14.0-18.0) L 01/10/19 06:00 Hct 39.1 % (42.0-52.0) L 01/10/19 06:00 MCV 96.5 fl (80.0-105.0) 01/10/19 06:00 MCH 31.4 pg (25.0-35.0) 01/10/19 06:00 MCHC 32.5 g/dl (31.0-37.0) 01/10/19 06:00 RDW 13.0 % (11.5-14.5) 01/10/19 06:00 Plt Count 178 10^3/uL (120.0-450.0) 01/10/19 06:00 MPV 11.5 fl (7.0-11.0) H 01/10/19 06:00 Neut % (Auto) 55.7 % (50.0-68.0) 01/10/19 06:00 Lymph % (Auto) 29.3 % (22.0-35.0) 01/10/19 06:00 [place] % (Auto) 10.7 % (1.0-6.0) H 01/10/19 06:00 Eos % (Auto) 3.9 % (1.5-5.0) 01/10/19 06:00 Baso % (Auto) 0.4 % (0.0-3.0) 01/10/19 06:00 Lymph # (Auto) 2.0 (1.2-3.4) 01/10/19 06:00 [place] # (Auto) 0.7 (0.1-0.6) H 01/10/19 06:00 Eos # (Auto) 0.3 (0.0-0.7) 01/10/19 06:00 Baso # (Auto) 0.03 K/mm3 (0.0-2.0) 01/10/19 06:00 Absolute Neuts (auto) 3.86 (1.4-6.5) 01/10/19 06:00 pO2 132 mm/Hg (30-55) H 01/09/19 03:48 VBG pH 7.29 (7.32-7.43) L 01/09/19 03:48 VBG pCO2 49.0 (40-60) 01/09/19 03:48 VBG HCO3 23.6 mmol/l (21-28) 01/09/19 03:48 VBG Total CO2 25.1 mmol.L (22-28) 01/09/19 03:48 VBG O2 Sat (Calc) 100.6 % (40-65) H 01/09/19 03:48 VBG Base Excess -3.4 mmol/L (0.0-2.0) L 01/09/19 03:48 VBG Potassium 3.2 mmol/L (3.6-5.2) L 01/09/19 03:48 Sodium 142.0 mmol/L (132-148) 01/09/19 03:48 Chloride 110.0 mmol/L (98-107) H 01/09/19 03:48 Glucose 98 mg/dl (75-110) 01/09/19 03:48 Lactate 1.8 mmol/L (0.7-2.1) 01/09/19 03:48 FiO2 21.0 % 01/09/19 03:48 Crit Value Called To Doug leyva oncology rn 01/08/19 23:30 Crit Value Called By Nina 01/08/19 23:30 Blood Gas Notified Time 51 01/08/19 23:30 Sodium 138 mmol/L (132-148) 01/10/19 06:00 Potassium 3.7 mmol/L (3.6-5.0) 01/10/19 06:00 Chloride 105 mmol/L (98-107) 01/10/19 06:00 Carbon Dioxide 26 mmol/L (21-33) 01/10/19 06:00 Anion Gap 12 (10-20) 01/10/19 06:00 BUN 10 mg/dL (7-21) 01/10/19 06:00 Creatinine 0.5 mg/dl (0.8-1.5) L 01/10/19 06:00 Est GFR ( Amer) > 60 01/10/19 06:00 Est GFR (Non-Af Amer) > 60 01/10/19 06:00 POC Glucose (mg/dL) 90 mg/dL (65-110) 01/10/19 18:35 Random Glucose 91 mg/dL (70-110) 01/10/19 06:00 Calcium 9.4 mg/dL (8.4-10.5) 01/10/19 06:00 Phosphorus 5.0 mg/dL (2.5-4.5) H 01/09/19 03:48 Magnesium 1.6 mg/dL (1.7-2.2) L 01/09/19 03:48 Total Bilirubin 0.8 mg/dL (0.2-1.3) 01/10/19 06:00 AST 69 U/L (17-59) H 01/10/19 06:00 ALT 80 U/L (7-56) H 01/10/19 06:00 Alkaline Phosphatase 219 U/L (38-126) H D 01/10/19 06:00 Ammonia 20 umol/L (9-33) 01/08/19 19:33 Total Creatine Kinase 114 U/L (35-230) 01/08/19 18:54 Total Protein 7.7 g/dL (5.8-8.3) 01/10/19 06:00 Albumin 3.9 g/dL (3.0-4.8) 01/10/19 06:00 Globulin 3.8 gm/dL 01/10/19 06:00 Albumin/Globulin Ratio 1.0 (1.1-1.8) L 01/10/19 06:00 Venous Blood Potassium 3.2 mmol/L (3.6-5.2) L 01/09/19 03:48 Urine Color Light yellow (YELLOW) 01/08/19 20:21 Urine Appearance Clear (CLEAR) 01/08/19 20:21 Urine pH 6.0 (4.7-8.0) 01/08/19 20:21 Ur Specific [place] 1.015 (1.005-1.035) 01/08/19 20:21 Urine Protein Negative mg/dL (<30 mg/dL) 01/08/19 20:21 Urine Glucose (UA) Negative mg/dL (NEGATIVE) 01/08/19 20:21 Urine Ketones Negative mg/dL (NEGATIVE) 01/08/19 20:21 Urine Blood Negative (NEGATIVE) 01/08/19 20:21 Urine Nitrate Negative (NEGATIVE) 01/08/19 20:21 Urine Bilirubin Negative (NEGATIVE) 01/08/19 20:21 Urine Urobilinogen 0.2 E.U./dL (<1 E.U./dL) 01/08/19 20:21 Ur Leukocyte Esterase Negative Ty/uL (NEGATIVE) 01/08/19 20:21 Salicylates < 1 mg/dL (2.0-20.0) L 01/08/19 18:54 Urine Opiates Screen Negative (NEGATIVE) 01/08/19 20:21 Urine Methadone Screen Negative (NEGATIVE) 01/08/19 20:21 Acetaminophen < 10.0 ug/ml (10.0-20.0) L 01/08/19 18:54 Ur Barbiturates Screen Negative (NEGATIVE) 01/08/19 20:21 Ur Phencyclidine Scrn Negative (NEGATIVE) 01/08/19 20:21 Ur Amphetamines Screen Negative (NEGATIVE) 01/08/19 20:21 U Benzodiazepines Scrn Positive (NEGATIVE) H 01/08/19 20:21 U Oth Cocaine Metabols Negative (NEGATIVE) 01/08/19 20:21 U Cannabinoids Screen Negative (NEGATIVE) 01/08/19 20:21 Alcohol, Quantitative 392 mg/dL (0-10) H* 01/08/19 18:54 Attending/Attestation - Attestation I have personally seen and examined this patient.: Yes I have fully participated in the care of the patient.: Yes I have reviewed all pertinent clinical information, including history, physical exam and plan: Yes Notes (Text): 01/11/19 12:18 Attending note; Patient seen and examined with resident. Patient is a 48-year-old male with a history of chronic alcohol abuse well-known to our service is admitted for alcohol withdrawal symptoms. Patient was treated with IV Ativan, IV banana bag. Currently patient is alert and awake. Tolerating diet . Ambulating fine. Patient will be discharged home. Alcohol cessation is strongly advised. patient refused to stop Alcohol abuse. Patient was advised to follow-up with [facility]. Patient refused to follow-up. Prognosis is poor secondary to noncompliance with follow-up and continuous alcohol abuse.
== END 2019-01-10 09:20 | disposition home or self-care (01) | DRG 775 ==
LOC: ED 18:01 → ERH 19:40 → 2RNO 01-09 00:27 → OBSVTOIN 01-09 16:37
PROVIDERS: ADMIT Internal Medicine; ATTEND Internal Medicine
DX: F10.239 Alcohol dependence with withdrawal, unspecified (principal); F10.229 Alcohol dependence with intoxication, unspecified; F31.9 Bipolar disorder, unspecified; K74.60 Unspecified cirrhosis of liver; I10 Essential (primary) hypertension; E11.9 Type 2 diabetes mellitus without complications; Y90.8 Blood alcohol level of 240 mg/100 ml or more; Z87.891 Personal history of nicotine dependence; Z91.19 Patient's noncompliance with other medical treatment and regimen; Z59.0 Homelessness

== ENCOUNTER 2019-01-10 18:18 | Emergency (ER) | payer MEDICAID, OTHER ==
[2019-01-10 18:18] VITALS: BMI 29.2
[2019-01-10 18:36] VITALS: RESP 18
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
[2019-01-10 21:06] VITALS: O2SAT 95
[2019-01-11 06:21] VITALS: BP 118/85; PULSE 84; TEMP 97.3
== END 2019-01-11 06:23 | disposition home or self-care (01) ==
LOC: ED 18:18
DX: F10.129 Alcohol abuse with intoxication, unspecified (principal); E11.9 Type 2 diabetes mellitus without complications; F17.210 Nicotine dependence, cigarettes, uncomplicated; J44.9 Chronic obstructive pulmonary disease, unspecified

== ENCOUNTER 2019-01-11 20:52 | Emergency (ER) | payer MEDICAID, OTHER ==
[2019-01-11 20:52] VITALS: BMI 29.2
[2019-01-11 21:06] VITALS: BP 135/78; PULSE 78; RESP 18; TEMP 97.9; O2SAT 96
== END 2019-01-11 23:15 | disposition left against medical advice (07) ==
LOC: ED 20:52
DX: Z02.89 Encounter for other administrative examinations (principal); Z00.00 Encounter for general adult medical examination without abnormal findings

== ENCOUNTER 2019-01-14 00:38 | Emergency (ER) | payer MEDICAID, OTHER ==
[2019-01-14 00:39] VITALS: BMI 29.2
[2019-01-14 00:44] VITALS: BP 136/72; PULSE 78; RESP 18; TEMP 98.1; O2SAT 97
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
== END 2019-01-14 05:15 | disposition left against medical advice (07) ==
LOC: ED 00:38
DX: F10.10 Alcohol abuse, uncomplicated (principal); Z59.0 Homelessness; E11.9 Type 2 diabetes mellitus without complications; F17.210 Nicotine dependence, cigarettes, uncomplicated; J44.9 Chronic obstructive pulmonary disease, unspecified

== ENCOUNTER 2019-01-18 20:51 | Emergency (ER) | payer MEDICAID, OTHER ==
[2019-01-18 20:51] VITALS: BMI 29.2
[2019-01-18 21:04] VITALS: TEMP 97.4
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
[2019-01-19 03:17] VITALS: O2SAT 95
[2019-01-19 05:21] VITALS: PULSE 97
[2019-01-19 06:31] VITALS: BP 113/82; RESP 17
== END 2019-01-19 06:29 | disposition home or self-care (01) ==
LOC: ED 20:51
DX: F10.10 Alcohol abuse, uncomplicated (principal); Y90.8 Blood alcohol level of 240 mg/100 ml or more; E11.9 Type 2 diabetes mellitus without complications
CPT/HCPCS: 82948; 99284; G0480

== ENCOUNTER 2019-01-19 23:57 | Emergency (ER) | payer SELFPAY ==
[2019-01-19 23:58] VITALS: BMI 29.2
[2019-01-20 00:04] VITALS: PULSE 84; RESP 18; TEMP 97.9; O2SAT 97
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
[2019-01-20 06:15] VITALS: BP 127/72
== END 2019-01-20 06:10 | disposition home or self-care (01) ==
LOC: ED 23:57
DX: Z59.0 Homelessness (principal)

== ENCOUNTER 2019-01-21 00:27 | Emergency (ER) | payer MEDICAID ==
[2019-01-21 00:27] VITALS: BMI 29.2
[2019-01-21 00:51] VITALS: BP 144/82; PULSE 82; RESP 17; TEMP 98.2; O2SAT 96
== END 2019-01-21 01:24 | disposition left against medical advice (07) ==
LOC: ED 00:27
DX: Z02.89 Encounter for other administrative examinations (principal); F10.10 Alcohol abuse, uncomplicated

== ENCOUNTER 2019-02-13 17:45 | Emergency (ER) | payer MEDICAID ==
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
[2019-02-13 18:17] VITALS: BMI 34.0
[2019-02-13 18:48] VITALS: RESP 18
[2019-02-14 07:12] VITALS: BP 118/72; PULSE 66; TEMP 98; O2SAT 95
== END 2019-02-14 06:40 | disposition home or self-care (01) ==
LOC: ED 17:45
DX: F10.129 Alcohol abuse with intoxication, unspecified (principal)